=== PATIENT | male | born 1995 | race Caucasian/White ===

== ENCOUNTER 2023-02-05 21:27 | Emergency (ER) | payer OTHER, SELFPAY ==
[2023-02-05 21:32] VITALS: BP 162/94; PULSE 87; RESP 16; TEMP 37.1; O2SAT 97; BMI 55.2
--- NOTE | 2023-02-05 21:46 | PC.NURSE ---
patient c/o pain in right upper extremity. states he has sharp intense pain from top of shoulder running down bicep to elbow. denies any known injury. he has been using left hand to move extremity states he has pain at rest but increases with movement. patient last took motrin 30 minutes prior to coming to ED
--- NOTE | 2023-02-05 22:08 | XR_ITS ---
The [address] [address] Patient Name: COREY LOPEZ MRN: [id number] date: 1995 Sex: M Assigned Patient Location: ER Current Patient Location: ER Accession/Order Number: [id number] Exam Date: 02/05/2023 22:15 Report Date: 02/05/2023 22:33 At the request of: PEPE MARKER Procedure: XR humerus RT EXAM: XR humerus RT HISTORY: RUE pain COMPARISON: None. TECHNIQUE: 2 views of the right humerus are performed. FINDINGS: There is no acute fracture. The bony structures are intact. Joint spaces are maintained. Unremarkable soft tissues. XR/XR humerus RT IMPRESSION: No acute bony abnormality. Electronically authenticated by: MALLORY PINON Date: 02/05/2023 22:33
--- NOTE | 2023-02-05 23:15 | ED_ITS ---
HPI - Extremity Injury (Upper) General Chief Complaint: Extremity Injury, Upper Stated Complaint: Upper Pain right arm Time Seen by Provider: 02/05/23 21:44 History of Present Illness HPI narrative: This 27-year-old male who is right-hand dominant presents for evaluation of right upper extremity pain has been present for the past several days. 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 He states he has pain with elevation of his right upper extremity from the right anterior shoulder area down the midline portion of his humerus and into his elbow. He states that he has weakness but denies numbness or tingling. By weakness he is describing that it hurts him to lift his arm as he explains it to me. He has no forearm or wrist or finger pain. No medications at been taken for this. He denies any injury. Denies any neck or back pain. Related Data Home Medications Medication Instructions Recorded Confirmed lamotrigine 100 mg tablet mg 02/05/23 lamotrigine 200 mg tablet mg 02/05/23 oxcarbazepine 600 mg tablet mg 02/05/23 vilazodone 20 mg tablet mg 02/05/23 Allergies Allergy/AdvReac Type Severity Reaction Status Date / Time No Known Drug Allergies Allergy Verified 02/05/23 21:41 Review of Systems ROS Status of ROS 10 or more systems reviewed and unremarkable except as noted in history and below [facility] Social History Smoking status: Never smoker Exam Narrative Exam Narrative: Nurses note and vital signs reviewed and patient is not hypoxic. Blood pressure is mildly elevated at 162/94 General: The patient appears well and in no apparent distress. Patient is resting comfortably on cart. Skin: Warm, dry, no pallor noted. There is no rash noted. Head: Normocephalic, atraumatic Eye: Normal conjunctiva, no drainage, EOMI. PERRL Ears, Nose, Mouth, and Throat: oral mucosa is moist. Nares patent. Mouth without vesicles. Ear canals patent. Tm's without Erythema Cardiovascular: Regular Rate and Rhythm Respiratory: Patient is in no distress, no accessory muscle use, lungs are clear to auscultation, no wheezing, rales or rhonchi Back: non-tender, no CVA tenderness bilaterally to percussion. NO cervical spine tenderness GI: Normal bowel sounds, no tenderness to palpation, no masses appreciated. No rebound, guarding, or rigidity noted. Musculoskeletal: Is mild tenderness in the right anterior shoulder girdle and proximal humerus area and at the midline portion of the biceps tendon and insertion of the biceps tendon on the distal humerus. Patient is able to approximate thumb and all fingers. Sensation is intact. Pulses are brisk and equal. There is pain with range of motion of abduction of the right upper extremity but no limitation. Patient is able to easily cross his right arm to touch his left shoulder. Neurological: A&O x4, normal speech Psychiatric: Cooperative Constitutional Vital Signs, click to edit/add: Last Vital Signs Temp 98.7 F 02/05/23 21:32 Pulse 87 02/05/23 21:32 Resp 16 02/05/23 21:32 BP 162/94 H 02/05/23 21:32 Pulse Ox 97 02/05/23 21:32 O2 Del Method Room Air 02/05/23 21:32 Course Vital Signs Vital signs: Vital Signs Temperature 98.7 F 02/05/23 21:32 Pulse Rate 87 02/05/23 21:32 Respiratory Rate 16 02/05/23 21:32 Blood Pressure 162/94 H 02/05/23 21:32 Pulse Oximetry 97 02/05/23 21:32 Oxygen Delivery Method Room Air 02/05/23 21:32 Temperature 98.7 F 02/05/23 21:32 Pulse Rate 87 02/05/23 21:32 Respiratory Rate 16 02/05/23 21:32 Blood Pressure 162/94 H 02/05/23 21:32 Pulse Oximetry 97 02/05/23 21:32 Oxygen Delivery Method Room Air 02/05/23 21:32 MDM - Extremity Injury (Upper) Medical Records Medical records narrative: This 27-year-old male with a history of epilepsy presents for evaluation of right upper extremity pain and has been present for the past several days. He has pain in the right anterior shoulder area, the midline portion of the right humerus and insertion of the steps tendon on the distal humerus. He complains of weakness but has full strength and is able to move his arm but this causes him discomfort. His pulses are brisk and equal. There is no particular bony tenderness. X-ray of the extremity was normal. Clinically the patient has biceps tendonitis. He was medicated emergency department with ibuprofen and discharged home with a prescription for a Medrol Dosepak and ibuprofen. He declined the need for a sling. Discharge Plan Discharge Chief Complaint: Extremity Injury, Upper Clinical Impression: Biceps tendinitis Patient Disposition: Home, Self-Care Time of Disposition Decision: 23:16 Condition: Good Prescriptions / Home Meds: No Action lamotrigine 200 mg tablet oxcarbazepine 600 mg tablet lamotrigine 100 mg tablet vilazodone 20 mg tablet Instructions: Tendinitis (ED) Stand Alone Forms: Portal Instructions Referrals: MANNY CHI [Primary Care Provider] - 1 week Discharge Date/Time: 02/05/23 23:44
[2023-02-05] MEDS: IBUPROFEN 600 MG TABLET PO (23:41)
== END 2023-02-05 23:44 | disposition home or self-care (01) ==
PROVIDERS: Emergency Provider Emergency Medicine; PCP Nurse Practitioner Family
DX: M75.21 Bicipital tendinitis, right shoulder (principal); G40.909 Epilepsy, unspecified, not intractable, without status epilepticus; Z79.899 Other long term (current) drug therapy
CPT/HCPCS: 73060; 99283

== ENCOUNTER 2023-03-28 14:15 | Emergency (ER) | payer OTHER, SELFPAY ==
[2023-03-28 14:31] VITALS: BP 150/100; PULSE 92; RESP 20; O2SAT 97; BMI 24.2
--- NOTE | 2023-03-28 15:12 | XR_ITS ---
The [address] [address] Patient Name: COREY LOPEZ MRN: [id number] date: 1995 Sex: M Assigned Patient Location: ER Current Patient Location: ER Accession/Order Number: [id number] Exam Date: 03/28/2023 15:40 Report Date: 03/28/2023 15:56 At the request of: DEEPA BEYER Procedure: XR hand LT min 3V EXAM: XR hand LT min 3V HISTORY: laceration COMPARISON: None. TECHNIQUE: 3 view study FINDINGS: Overall bony architecture is normal. Joint spaces are well-maintained. Soft tissues are unremarkable. XR/XR hand LT min 3V IMPRESSION: No acute bone or joint abnormality is identified. No evidence for acute fracture or dislocation. No opaque foreign body is identified. Electronically authenticated by: Perico GARCIA Date: 03/28/2023 15:56
--- NOTE | 2023-03-28 16:12 | ED_ITS ---
HPI - Wound/Laceration General Chief Complaint: Wound/Laceration Stated Complaint: L HAND POSS. KASANDRATCHES Time Seen by Provider: 03/28/23 15:03 Source: patient and friend Mode of arrival: ambulance Limitations: no limitations History of Present Illness HPI narrative: patient is a 27-year-old male who presents to the emergency department for the evaluation of a laceration to the left hand. He is right-hand dominant. He states he cut his hand on a piece of glass prior to arrival. Bleeding is well- controlled. Tetanus is up-to-date. No other associated injuries. Related Data Home Medications Medication Instructions Recorded Confirmed lamotrigine 100 mg tablet mg 02/05/23 lamotrigine 200 mg tablet mg 02/05/23 oxcarbazepine 600 mg tablet mg 02/05/23 vilazodone 20 mg tablet mg 02/05/23 Allergies Allergy/AdvReac Type Severity Reaction Status Date / Time No Known Drug Allergies Allergy Verified 02/05/23 21:41 Review of Systems ROS Constitutional Denies: fever or chills Cardiovascular Denies: chest pain Respiratory Denies: shortness of breath Gastrointestinal Denies: nausea or vomiting Musculoskeletal Denies: back pain Integumentary/Breast Denies: rash Neurological Denies: headache Endocrine Denies: excessive urination Hematologic/Lymphatic Denies: easy bruising PFSH PFSH Social History Smoking status: Never smoker Exam Narrative Exam Narrative: Gen.: Awake, alert, in no distress Head: Normocephalic, atraumatic ENT: Moist mucous membranes Respiratory: No respiratory distress Extremities: Moves extremities equally, normal flexion and extension of the IP and MCP joints of the left thumb with a 2.5 cm jagged superficial laceration on the palmar aspect of the left hand at the MCP joint. No deep subcutaneous tissue laceration noted. No tendon visualization. No active bleeding. Psych: Normal mood and affect Neuro: No focal neuro deficit Skin: Warm, dry Constitutional Vital Signs, click to edit/add: Last Vital Signs Pulse 92 H 03/28/23 14:31 Resp 20 03/28/23 14:31 BP 150/100 H 03/28/23 14:31 Pulse Ox 97 03/28/23 14:31 O2 Del Method Room Air 08/31/23 14:31 Course Vital Signs Vital signs: Vital Signs Pulse Rate 92 H 03/28/23 14:31 Respiratory Rate 20 03/28/23 14:31 Blood Pressure 150/100 H 03/28/23 14:31 Pulse Oximetry 97 03/28/23 14:31 Oxygen Delivery Method Room Air 03/28/23 14:31 Pulse Rate 92 H 03/28/23 14:31 Respiratory Rate 20 03/28/23 14:31 Blood Pressure 150/100 H 03/28/23 14:31 Pulse Oximetry 97 03/28/23 14:31 Oxygen Delivery Method Room Air 03/28/23 14:31 MDM - Wound/Laceration MDM Narrative Medical decision making narrative: Laceration repair: Done under sterile conditions. The use of Shur-Clens prep the area. Local injection with lidocaine 1% was used, approximately 3 cc. The wound was irrigated copiously with normal saline. The wound was explored there was no evidence of foreign material. The laceration was approximated with 4-0 nylon. 3 simple interrupted sutures were placed. Patient tolerated the procedure well. The patient was neurovascularly intact post. the patient had bacitracin applied to the laceration and a dry sterile dressing was place. The patient will need to follow-up in the next 7-10 days for removal sutures placed with no difficulty, hand x-rays of the left hand with no evidence of acute fracture, soft tissue abnormality. Follow-up with PCP for suture removal in 7-10 days and return to the emergency department if symptoms change or worsen. Motrin and Tylenol encouraged for home. Medical Records Attestation: I reviewed the patient's medical records. Discharge Plan Discharge Chief Complaint: Wound/Laceration Clinical Impression: Laceration of hand, left Patient Disposition: Home, Self-Care Time of Disposition Decision: 16:13 Condition: Good Prescriptions / Home Meds: No Action lamotrigine 200 mg tablet oxcarbazepine 600 mg tablet lamotrigine 100 mg tablet vilazodone 20 mg tablet Instructions: Laceration (ED) Additional Instructions: Sutures removed in 7-10 days with PCP Stand Alone Forms: Portal Instructions Referrals: MANNY CHI [Primary Care Provider] - 1 week
[2023-03-28] MEDS: BACITRACIN 0.9 GM PACKET 1 PACKET TOPICAL (16:29)
== END 2023-03-28 16:31 | disposition home or self-care (01) ==
PROVIDERS: Emergency Provider Emergency Medicine; PCP Nurse Practitioner Family
DX: S61.412A Laceration without foreign body of left hand, initial encounter (principal); W25.XXXA Contact with sharp glass, initial encounter; Z79.899 Other long term (current) drug therapy
CPT/HCPCS: 12001; 73130; 99283

== ENCOUNTER 2023-08-15 12:07 | Emergency (ER) | payer OTHER, SELFPAY ==
[2023-08-15] VITALS (18 sets, daily range): BP systolic 115–170; BP diastolic 74–97; PULSE 85–121; RESP 18–39; TEMP 37.2; O2SAT 88–98; BMI 21.7
--- NOTE | 2023-08-15 12:26 | ECG_ITS ---
The [facility] Test Date: 2023-08-15 Pat Name: COREY LOPEZ Department: Room: - Gender: Male Induction Brazer: : 1995 Requested By: MANNY CHI Order Number: [id number] Reading MD: LELE MONTANA Measurements Intervals [place] Rate: 107 P: 51 LA: 164 QRS: 38 QRSD: 94 T: 59 QT: 330 QTc: 393 Interpretive Statements 1120 Sinus tachycardia 2440 Incomplete right bundle branch block 9140 abnormal rhythm ECG Compared to ECG 06/11/2022 07:35:30 Incomplete right bundle-branch block now present Indeterminate axis no longer present Electronically Signed On 08-16-2023 7:24:37 EST by LELE MONTANA
--- NOTE | 2023-08-15 12:29 | PC.NURSE ---
Patient drowsy on arrival, will answer questions and falls back to sleep. Mother at bedside. Seizure pads in place.
[2023-08-15] MEDS: 0.9 % SODIUM CHLORIDE 1,000 ML 999 ML IV (12:36)
[2023-08-15 12:50] LABS: Basophils Percent Auto 0.2 % (0.2-2.0); Hematocrit 44.7 % (42.0-54.0); Hemoglobin 15.7 g/dL (14.0-18.0); Immature Granulocytes Abs Auto 0.06 10^3/uL (0.00-0.03); Immature Granulocytes Pct Auto 0.5 % (0.0-0.5); Lymphocytes Absolute Auto 0.7 10^3/uL (1.2-3.8); Lymphocytes Percent Auto 5.3 % (20.5-60.0); Mean Corpuscular HGB Conc 35.1 g/dL (29.9-35.2); Mean Corpuscular Hemoglobin 28.5 pg (25.9-34.0); Mean Corpuscular Volume 81.3 fL (80.0-94.0); Mean Platelet Volume 9.6 fL (9.5-13.5); Monocytes Absolute Auto 0.4 10^3/uL (0.3-0.8); Monocytes Percent Auto 2.9 % (1.7-12.0); Neutrophils Absolute Auto 12.1 10^3/uL (1.4-6.5); Neutrophils Percent Auto 91.1 % (43.0-75.0); Platelet Count 225 10^3/uL (150-450); Red Cell Distribution Width 12.4 % (11.0-15.0); White Blood Count 13.3 10^3/uL (4.0-11.0)
--- NOTE | 2023-08-15 13:03 | ED.SEIZURE1 ---
HPI - Seizure General Chief Complaint: Seizure Stated Complaint: SEIZURE Time Seen by Provider: 08/15/23 12:18 Source: family Mode of arrival: ambulance Limitations: altered mental status History of Present Illness HPI Narrative: Patient has seizure disorder. He has not had a seizure for about a year, his mother told me. Last night he had 5 small seizures in which he was staring or confused. This morning he had a grand mal seizure. He did not injure anything and it was witnessed by the mother. She told me that he has been taking his seizure medications as prescribed and not missed any doses. His neurologist is in [place] - no recent change in med doses. No recent alcohol use, he has been getting normal amount of rest. The mother told me that the patient is going through a divorce and has some increased stress recently. On arrival he complained of some nausea and abdominal cramping. Seizure History: Yes Place: home Related Data Home Medications Medication Instructions Recorded Confirmed lamotrigine 100 mg tablet 100 mg PO Q12H 02/05/23 08/15/23 lamotrigine 200 mg tablet 200 mg PO Q12H 02/05/23 08/15/23 oxcarbazepine 600 mg tablet 600 mg PO BID 02/05/23 08/15/23 vilazodone 20 mg tablet mg 02/05/23 Allergies Allergy/AdvReac Type Severity Reaction Status Date / Time No Known Drug Allergies Allergy Verified 02/05/23 21:41 [facility] Social History Smoking status: Unknown if ever smoked Exam Narrative Exam Narrative: Nurses notes and vital signs reviewed and patient is not hypoxic. afebrile General: Well-appearing and in no apparent distress. Skin: Warm, dry, no pallor noted. Head: Normocephalic, atraumatic. Neck: Supple, non-tender. Eye: Pupils are equal, round and EOMI. No scleral icterus. Ears, Nose, Mouth, and Throat: TM are clear, no posterior oropharynx erythema or nasal mucosal hypertrophy, uvula is mid-line. No oral or intraoral injury. Oral mucosa is moist Cardiovascular: Regular Rate and Rhythm without murmur, gallop or rub. Respiratory: No accessory muscle use or respiratory distress. Lungs are clear to auscultation, no wheezing, rales or rhonchi Musculoskeletal: normal ROM, no calf or popliteal tenderness, no lower extremity edema/swelling GI: Abdomen is soft, non-distended. Normal bowel sounds. No tenderness to palpation. No rebound, guarding, or rigidity noted. Neurological: A&O x4. No cranial nerve dysfunction observed. No truncal ataxia. Moves all extremities. Sensation intact. Psychiatric: Cooperative and interactive. Normal mood and affect. Constitutional Vital Signs, click to edit/add: Last Vital Signs Temp 99 F 08/15/23 12:08 Pulse 100 H 08/15/23 13:20 Resp 24 08/15/23 13:20 BP 170/97 H 08/15/23 13:00 Pulse Ox 95 08/15/23 13:20 Course Vital Signs Vital signs: Vital Signs Temperature 99 F 08/15/23 12:08 Pulse Rate 118 H 08/15/23 12:08 Respiratory Rate 20 08/15/23 12:08 Blood Pressure 129/88 08/15/23 12:08 Temperature 99 F 08/15/23 12:08 Pulse Rate 100 H 08/15/23 13:20 Respiratory Rate 24 08/15/23 13:20 Blood Pressure 170/97 H 08/15/23 13:00 Pulse Oximetry 95 08/15/23 13:20 MDM - Seizure MDM Narrative Medical decision making narrative: Seizure precautions initiated. Patient was placed on gambling monitor and EKG obtained. Blood drawn and sent for evaluation. White blood cell count elevated at 13.3, likely reactive. CMP unremarkable. On recheck at 1300, the patient told me that he was feeling as if his seizure was coming on. I ordered the patient to receive IV Valium - fyi, Ativan is unavailable. Patient's anti-epileptic med levels are send-outs and we will not have results right away. Patient informed of test results and discharged home with recommendation to see his Neurologist in [place] for follow up. Mother will take him home and call the Neurologist's office today. Lab Data Attestation: I reviewed the patient's lab results. Labs: Lab Results 08/15/23 Range/Units 12:43 WBC 13.3 H (4.0-11.0) 10^3/uL RBC 5.50 (4.70-6.10) 10^6/uL Hgb 15.7 (14.0-18.0) g/dL Hct 44.7 (42.0-54.0) % MCV 81.3 (80.0-94.0) fL MCH 28.5 (25.9-34.0) pg MCHC 35.1 (29.9-35.2) g/dL RDW 12.4 (11.0-15.0) % Plt Count 225 (150-450) 10^3/uL MPV 9.6 (9.5-13.5) fL Neut % (Auto) 91.1 H (43.0-75.0) % Lymph % (Auto) 5.3 L (20.5-60.0) % [place] % (Auto) 2.9 (1.7-12.0) % Eos % (Auto) 0.0 L (0.9-7.0) % Baso % (Auto) 0.2 (0.2-2.0) % Neut # (Auto) 12.1 H (1.4-6.5) 10^3/uL Lymph # (Auto) 0.7 L (1.2-3.8) 10^3/uL [place] # (Auto) 0.4 (0.3-0.8) 10^3/uL Eos # (Auto) 0.0 (0.0-0.7) 10^3/uL Baso # (Auto) 0.0 (0.0-0.1) 10^3/uL Abs Immat Gran (auto) 0.06 H (0.00-0.03) 10^3/uL Imm/Tot Granulo (auto) 0.5 (0.0-0.5) % Sodium 136 (136-145) mmol/L Potassium 4.1 (3.5-5.1) mmol/L Chloride 100 (98-107) mmol/L Carbon Dioxide 25.8 (21.0-32.0) mmol/L Anion Gap 14.3 BUN 12.0 (7.0-18.0) mg/dL Creatinine 1.22 (0.70-1.30) mg/dL Est GFR ( Amer) >60 (>=60) Est GFR (Non-Af Amer) >60 (>=60) BUN/Creatinine Ratio 9.8 Glucose 144 H (74-106) mg/dL Calcium 9.2 (8.5-10.1) mg/dL Total Bilirubin 0.3 (0.2-1.0) mg/dL AST 20 (15-37) U/L ALT 41 (16-63) U/L Alkaline Phosphatase 108 (46-116) U/L Total Protein 8.1 (6.4-8.2) g/dL Albumin 4.2 (3.4-5.0) g/dL Globulin 3.9 g/dL Albumin/Globulin Ratio 1.1 Lipase 28.0 (16.0-77.0) U/L ECG Data Attestation: I personally reviewed and interpreted this ECG as follows: Interpretation: EKG interpretation: Emergency Department physician interpretation. Sinus tachycardia at 107bpm. Inc RBBB. no ST segment elevation or depression. Discharge Plan Discharge Chief Complaint: Seizure Clinical Impression: Generalized seizure Patient Disposition: Home, Self-Care Time of Disposition Decision: 14:01 Prescriptions / Home Meds: No Action lamotrigine 200 mg tablet 200 mg PO Q12H oxcarbazepine 600 mg tablet 600 mg PO BID lamotrigine 100 mg tablet 100 mg PO Q12H vilazodone 20 mg tablet Instructions: Epilepsy (ED) Stand Alone Forms: Portal Instructions Referrals: MANNY CHI [Primary Care Provider] - 1 week
[2023-08-15] MEDS: DIAZEPAM 10 MG/2 ML SYRINGE 5 MG IV (13:09)
[2023-08-15 13:13] LABS: Alanine Aminotransferase 41 U/L (16-63); Albumin Globulin Ratio 1.1; Albumin Level 4.2 g/dL (3.4-5.0); Alkaline Phosphatase 108 U/L (46-116); Anion Gap 14.3; Aspartate Amino Transferase 20 U/L (15-37); BUN Creatinine Ratio 9.8; Bilirubin Total 0.3 mg/dL (0.2-1.0); Calcium 9.2 mg/dL (8.5-10.1); Carbon Dioxide 25.8 mmol/L (21.0-32.0); Chloride 100 mmol/L (98-107); Estimated GFR (African America >60 (>=60); Estimated GFR (Non-African Ame >60 (>=60); Globulin 3.9 g/dL; Glucose 144 mg/dL (74-106); Potassium 4.1 mmol/L (3.5-5.1); Sodium 136 mmol/L (136-145); Total Protein 8.1 g/dL (6.4-8.2)
[2023-08-22 10:10] LABS: Oxcarbazepine (Trileptal),S 10 ug/mL (10-35)
== END 2023-08-15 15:02 | disposition home or self-care (01) ==
PROVIDERS: Emergency Provider Emergency Medicine; PCP Nurse Practitioner Family
DX: G40.409 Other generalized epilepsy and epileptic syndromes, not intractable, without status epilepticus (principal); Z79.899 Other long term (current) drug therapy
CPT/HCPCS: 36415; 80053; 80175; 80183; 80307; 83690; 85025; 93005; 96374; 99285; J3360

== ENCOUNTER 2023-09-02 12:00 | Emergency (ER) | payer OTHER, SELFPAY ==
[2023-09-02] VITALS (9 sets, daily range): BP systolic 144–157; BP diastolic 93–95; PULSE 88–110; RESP 16–24; TEMP 36.8; O2SAT 96–99; BMI 26.8
--- NOTE | 2023-09-02 12:05 | ECG_ITS ---
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
--- OUTSIDE RECORDS SUMMARY | 2023-09-02 12:22 | XMS_ITS | CCD ---
Author Name Unknown Address [address] [place] [address] Organization [facility] Care Team Providers Care Microsoft Exchange Architect Name Role Phone Emeli Chi CNP S Primary Care Provider HANS GRANADO Referring Unavailab ricky CHI EMELI S Primary Care Unavailable HANS GRANADO Referring Unavailab ricky CHI EMELI S Primary Care Unavailable Unavailable Primary Care Provider Unavailkaty e PROVIDER, UNKNOWN Attending Unavailable PROVIDER, UNKNOWN Admitting Unavailable Emeli Chi Primary Care Unavailable Derek Burks Attending Unavailable Derek Burks Admitting Unavailable TAQUERIA Chi Norma Primary Care Provider Derek Burks Attending Provider Emeli Chi S Primary Care Provider [phone] EMELI CHI Primary Care Unavailable REGINA, DR BREE Meneses Attending Unavailkaty TAPIA, DR BREE Meneses Admitting Unavailkaty TAPIA, DR BREE Meneses Consulting UnavailTrinity David Consulting Unavailable LALO, JOSIAH Consulting Unavailable LALO, JOSIAH Attending Unavailable LALO, JOSIAH Admitting Unavailable ARTI, EMELI Primary Care Unavailable LALO, JOSIAH Consulting Unavailable LALO, JOSIAH Attending Unavailable LALO, JOSIAH Admitting Unavailable ARTI, EMELI Primary Care Unavailable BRIAN LAM Attending Unavailable MARIZA LAMID Admitting Unavailable ARTI, EMELI Primary Care Unavailable BRIAN LAM Consulting Unavailable LALO, JOSIAH Attending Unavailable LALO, JOSIAH Admitting Unavailable LALO, JOSIAH Consulting Unavailable ARTI, EMELI Primary Care Unavailable DR SHARON MICHEL Attending Unavailable DR SHARON MICHEL Admitting Unavailable ARTI, EMELI Primary Care Unavailable DR SHARON MICHEL Consulting Unavailable JOSE CRUZ BRAGA Consulting Unavailable LALO, JOSIAH Attending Unavailable LALO, JOSIAH Admitting Unavailable JOSIAH MAY Consulting Unavailable ARTI, EMELI Primary Care Unavailable ERNESTO GIRON Consulting Unavailable TRINITY KING Consulting Unavailable NICOLASA ., DR MIXON Attending Unavailable HAY ., DR MIXON Admitting Unavailable ARTI, EMELI Primary Care Unavailable HAY ., DR MIXON Consulting Unavailable MISC, DR GARDNER Consulting Unavailable MISC, DR GARDNER Attending Unavailable MISC, DOCTOR Admitting Unavailable ARTI, EMELI Primary Care Unavailable MISC, DOCTOR Admitting Unavailable MISC, DOCTOR Consulting Unavailable MISC, DOCTOR Attending Unavailable ARTI, EMELI Primary Care Unavailable MISC, DR GARDNER Admitting Unavailable MISC, DR GARDNER Consulting Unavailable MISC, DR GARDNER Attending Unavailable ARTI, EMELI Primary Care Unavailable HOY ., DR LUJAN Attending Unavailable HOY ., DR LUJAN Admitting Unavailable HOY ., DR LUJAN Consulting Unavailable ARTI, EMELI Primary Care Unavailable ZIEBER, DR CHERI Wilson Consulting Unavailable HAY ., DR MIXON Consulting Unavailable LALO, EHAD Consulting Unavailable DIAB ., CECILIA Attending Unavailable DIAB ., CECILIA Admitting Unavailable ARTI, EMELI Primary Care Unavailable DIAB ., CECILIA Consulting Unavailable EMELI CHI S Primary Care Physician [phone] Junior Raygoza Attending Unavailable Ramón Carrizales Attending Unavailable CHAVEZ LEE Attending Unavailable HANS GRANADO Referring Unavailab EMELI Parisi Primary Care Unavailable CHAVEZ LEE Admitting Unavailable Medications Current Medications Medication Drug Class(es) Dates Sig (Normalized) Sig (Original) Acetaminophen (1 source) Start: 08-07-2022 acetaminophen (TYLENOL) tablet 650 mg lamoTRIgine 100 mg oral tablet (9 sources) Mood Stabilizer, Anti-epileptic Agent Start: 08-11-2022 lamoTRIgine (LAMICTAL) tablet 300 mg Start: 08-07-2022 End: 08-10-2022 lamoTRIgine (LAMICTAL) table t 200 mg Start: 07-19-2022 End: 08-18-2022 take 1 tablet by mouth twice daily lamoTRIgine (LAMICTAL) 200 MG tablet Take 1 tablet by mouth 2 times daily 60 tablet 5 07/19/2022 08/18/2022 Active Start: 08-28-2021 take 1 tablet by kenneth th twice daily lamotrigine (LAMICTAL) 200 MG tablet Take 1 Tablet by mouth 2 times daily. 0 08/28/2021 Active Start: 04-10-2017 End: 08-18-2022 lamotrigine 100 mg oral tabl et BID, Refills(s) 0 Start Date: 04/10/17 Status: Ordered take 1 tablet by kenneth th once daily lamoTRIgine (LAMICTAL) 200 mg tablet Take 200 mg by mouth once daily. 0 Active Comment on above: Take 200 mg by mouth once daily. 1 ml LORazepam 2 mg/ml injection (1 source) Benzodiazepine Start: 08-07-2022 1 mg, IntraVENous, EVERY 5 MIN PRN, Starting on Sat08/07/22 at 1528, Until Discontinued, Seizures, may repeat x 1 (1mg) dose if seizure continues in a 4 hour period For generalized seizures. Not saúl physician if administered for seizure. Max dose of 2 mg in 4 hour period. ondansetron (ZOFRAN-ODT) disintegrating tablet 4 mg (1 source) Start: 08-07-2022 ondansetron (ZOFRAN-ODT) disintegrating tablet 4 mg OXcarbazepine 300 mg oral tablet (8 sources) Anti-epileptic Agent Start: 08-11-2022 OXcarbazepine (TRILEPTAL) tablet 600 mg Start: 2022 OXcarbazepine (TRILEPTAL) tablet 150 mg Start: 08-07-2022 End: 2022 OXcarbazepine (TRILEPTAL) ta blet 300 mg Start: 07-19-2022 OXcarbazepine (TRILEPTAL) 600 MG tablet I tablet 2 times a day 60 tablet 5 07/19/2022 Active Start: 08-28-2021 take 1 tablet by kenneth th twice daily oxcarbazepine (TRILEPTAL) 300 MG tablet Take 1 Tablet by mouth 2 times daily. 0 08/28/2021 Active Start: 04-06-2019 Trileptal Oral , BID, Refills(s) 0 Start Date: 04/06/19 Status: Ordered Comment on above: Take 300 mg by mouth twice daily. Completed/Discontinued Medications Medication Drug Class(es) Dates Sig (Normalized) Sig (Original) 0.4 ml enoxaparin sodium 100 mg/ml prefilled syringe (1 source) Low Molecular Weight Heparin Start: 08-07-2022 inject 40 mg by subcutaneous injection every twenty-four hours 40 mg, SubCUTAneous, EVERY 24 HOURS, First dose on Sat08/07/22 at 1800, Until Discontinued Indication of Use: Prophylaxis-DVT/PE polyethylene glycol 3350 77622 mg powder for oral solution (1 source) Osmotic Laxative Start: 08-07-2022 17 g, Oral, DAILY PRN, Starting on Sat08/07/22 at 1528, Until Discontinued, Constipation First line therapy for constipation 5 ml sodium chloride 9 mg/ml injection (3 sources) Start: 08-07-2022 take 1 dose intravenously twice daily 5-40 mL, IntraVENous, EVERY 12 HOURS SCHEDULED (2 times per day), First dose on Sat08/07/22 at 2100, Until Discontinued For Line Patency: Peripheral IV = 5 mL; Midline or Central Line = 10 mL/lumen.&nbsp ; If following IV push medication, administer flush at same rate as the IV push. Flush volume is determined by type of infusion therapy being given. For non-viscous solutions use: Peripher al IV = 5 mL Midline or Central Line = 10 mL/lumen &nbs p;For viscous solutions (i.e. blood components, parenteral nutrition, contrast media, or after obtaining blood sample) use: Peripher al IV = 10 mL Midline or Central Line = 20 mL/lumen Start: 08-07-2022 IntraVENous, a t 5-250 mL/hr, PRN, if patient receiving piggyback infusions and maintenance fluids are not ordered OR KVO fluids to protect IV site / prevent frequent line interruptions/ long duration, Starting on Sat08/07/22 at 1528 For piggyback infusion, administer at same rate as piggyback for a total of 25 mL. Enter 25 mL into dose field and piggyback rate into rate field of order. If piggyback is infusing at a rate less than 100 mL/hr, enter 25 mL into dose field and 100 mL/hr into rate field of order. For KVO fluids, enter rate of 20 mL/hr or less into rate field of order. Start: 08-07-2022 take 5-40 mL intrave nously once as needed 5-40 mL, IntraVENous, PRN, Starting on Sat08/07/22 at 1528, Until Discontinued, Line Care, After every IV line use For Line Patency: Peripheral IV = 5 mL; Midline or Central Line = 10 mL/lumen. If following IV push medication, administer flush at same rate as the IV push. Flush volume is determined by type of infusion therapy being given. For non-viscous solutions use: Peripheral IV = 5 mL Midline or Central Line = 10 mL/lumen For viscous solutions (i.e. blood components, parenteral nutrition, contrast media, or after obtaining blood sample) use: Peripheral IV = 10 mL Midline or Central Line = 20 mL/lumen Problems Active Problems Problem Classification Problem Date Documented Da te Episodic/Chronic Alcohol-related disorders (1 source) Nondependent alcohol abuse; Translations: [Alcohol abuse, uncomplicated] Onset: 10-30-2018 02-02-2022 Chronic Asthma (2 sources) Asthma 04-10-2017 Chronic Complications of surgical procedures or medical care (1 source) Wound dehiscence; Translations: [Disruption of wound, unspecified, initial encounter] Onset: 03-31-2023 Episodic Epilepsy; convulsions (15 sources) Localization-relate d cryptogenic epilepsy; Translations: [Localization-relat ed (focal) (partial) idiopathic epilepsy and epileptic syndromes with seizures of localized onset, not intractable, without status epilepticus] Onset: 10-29-2018 08-03-2021 Chronic Genitourinary symptoms and ill-defined conditions (2 sources) Microscopic hematuria 04-15-2019 Episodic Headache; including migraine (2 sources) Migraine 04-15-2019 Chronic Inflammation; infection of eye (except that caused by tuberculosis or sexually transmitteddisease) (1 source) Unspecified conjunctivitis; Translations: [UNSPECIFIED CONJUNCTIVITIS] Onset: 09-17-2022 Episodic Mood disorders (2 sources) Depressive disorder 04-15-2019 Chronic Other endocrine disorders (2 sources) Male hypogonadism 12-17-2019 Chronic Other eye disorders (1 source) Other specified disorders of conjunctiva; Translations: [OTHER SPEC DISORDERS OF CONJUNCTIVA] Onset: 09-17-2022 Episodic Other inflammatory condition of skin (3 sources) Other pruritus; Translations: [OTHER PRURITUS] Onset: 09-13-2022 Episodic Other male genital disorders (2 sources) Retrograde ejaculation 04-15-2019 Episodic Other nutritional; endocrine; and metabolic disorders (2 sources) Body mass index 25-29 - overweight 05-03-2020 Episodic Other upper respiratory infections (4 sources) Acute pharyngitis, unspecified; Translations: [ACUTE PHARYNGITIS UNSPECIFIED] Onset: 09-23-2022 Episodic Unclassified (1 source) Encounter for fertility testing; Translations: [Encounter for fertility testing] Onset: 04-12-2022 Unclassified (1 source) CONTACT W/AND (SUSP) EXPOS COVID-19; Translations: [CONTACT W/AND (SUSP) EXPOS COVID-19] Onset: 03-05-2022 Past or Other Problems Problem Classification Problem Date Documented Da te Episodic/Chronic Disorders of teeth and jaw (5 sources) Periapical abscess without sinus; Translations: [Other specified disorders of teeth and supporting structures] Onset: 06-10-2022 Episodic E Codes: Fall (1 source) Unspecified fall, initial encounter; Translations: [UNSPECIFIED FALL INITIAL ENCOUNTER] Onset: 01-02-2022 Episodic Epilepsy; convulsions (14 sources) Seizure; Translations: [Unspecified convulsions] Onset: 06-11-2022 Episodic Miscellaneous mental health disorders (1 source) Acute insomnia; Translations: [Adjustment insomnia] Onset: 06-06-2021 02-02-2022 Episodic Other aftercare (1 source) 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; Translations: [OTH SHELTER CURRENT DRUG THERAPY] Onset: 06-13-2022 Episodic Other injuries and conditions due to external causes (1 source) Unspecified injury of head, initial encounter; Translations: [UNSPECIFIED INJURY HEAD INITIAL ENC] Onset: 01-02-2022 Episodic Results Test Name Value Interpretation Reference Range Facility Consent for Treatmenton Consent for Treatment [id number] #1.00CD:127 [facility] Discharge Instructionson Discharge Instructions [id number]#1.00CD:127 [facility] ED Clinical Summaryon 2022 ED Clinical Summary [place] [id number] ED Clinical Summary Person Information Name: COREY ALONSO III [place] Age: 27 Years : 1995 Sex: Male Language: Hungarian PCP: EMELI CHI CNP Marital Status: Phone: [phone] Visit Id: Visit Reason: Wound reevaluation with or without suture removal; LEFT THUMB STITCHES COMING LOOSE Speciality: Acuity: 5 Enc Type: Emergency Med Service: Emergency Arrival: 03/31/2023 16:41:41 Discharge: 03/31/2023 17:04:13 LOS: 000 00:23 Checkin: 03/31/2023 16:41:41 Checkout: 03/31/2023 17:04:13 Dispo Type: Home (Routine DC) EVENTS: Event Name Event Status Request Date/Time Start Date/Time Complete Date/Time Arrive Complete 03/31/2023 16:41:41 03/31/2023 16:41:41 03/31/2023 16:41:41 Document Home Meds Request 03/31/2023 16:41:41 Triage Complete 03/31/2023 16:41:41 03/31/2023 16:52:35 03/31/2023 16:52:35 Bed Assign Complete 03/31/2023 16:45:34 03/31/2023 16:45:34 03/31/2023 16:45:34 Dr Exam Complete 03/31/2023 16:45:34 03/31/2023 16:48:45 03/31/2023 16:48:45 RN Exam Complete 03/31/2023 16:45:34 03/31/2023 16:58:11 03/31/2023 16:58:11 Registration Complete 03/31/2023 16:48:45 03/31/2023 16:49:58 03/31/2023 16:49:58 Reg Complete Request 03/31/2023 16:49:58 Discharge Complete 03/31/2023 16:54:51 03/31/2023 17:04:18 03/31/2023 17:04:18 Transfer Complete 03/31/2023 17:04:18 03/31/2023 17:04:18 03/31/2023 17:04:18 ADDRESS: [address] [place] [address] [phone] PHYS DOC NOTES: MEDICAL INFORMATION: Prescriptions Given: Medications to Continue with No Changes Other Medications lamotrigine (lamotrigine 100 mg oral tablet) 2 times a day. oxcarbazepine (Trileptal) By Mouth 2 times a day. PATIENT EDUCATION INFORMATION: Instructions: Wound Dehiscence Follow up: With: Address: When: EMELI CHI [address] [place] [address] [phone] Business (1) In 3 days 04/03/2023 Comments: Call the office of your primary care doctor to arrange for follow-up within the above-stated timeframe. Follow-up with your primary care doctor about this ED visit. You should review your labs, imaging, and diagnoses from this ED visit with your primary care physician. There are occasionally non-emergent findings that require additional follow-up after your ED visit. If you were prescribed medications you should discuss possible side-effects and drug interactions with your pharmacist. Call 911 or go to the nearest Emergency Department if you develop any new or worsening symptoms. Immobilize the thumb for the next 3 to 5 days or until sutures are removed. DIAGNOSIS: Wound dehiscence [facility] ED Note-Physicianon 03-31-20 ED Note-Physician Basic Information Time Seen: Ramón Carrizales DO 03/31/2023 16:48 Chief Complaint Had stitches at [facility] 2 days ago on L thumb. States feels like stitches aren't hold the laceration together. History of Present Illness 27-year-old male to the emergency department chief complaint of concerns about the stitches in his left thumb. Patient reports that he thinks they are too loose. He reports that when he moves his thumb around he still gets some bleeding from the site of the laceration. Review of Systems A 10 point review of systems is negative except as noted above. Medical and Surgical History: Reviewed and noted Social history: Lives at home Tobacco: Denies Physical Exam Vitals & Measurements T: 36.7 ?C(Oral) HR: 80(Peripheral) RR: 16 BP: 136/86 SpO2: 98% HT: 173 cm WT: 61.1 kg BMI: 20.41 Left hand: There are 4 sutures across the left hand at the base of the first digit with well approximation of a linear laceration. No active bleeding. Superficial and deep flexor tendons appear intact by functional testing. Medical Decision Making 27-year-old male with concerns about his sutures placed at outside hospital. Vital stable, the patient is afebrile. Sutures appear to be approximating well. I discussed with him that given the sightseeing and the movement in the area that is likely the cause of the continued bleeding and loosening of the sutures. We will place him in a foam aluminum splint. He will follow-up with suture removal instructions from outside hospital. Assessment/Plan Wound dehiscence (T81.30XA: Disruption of wound, unspecified, initial encounter) Disposition Plan Patient Discharge Condition Stable Discharge Disposition Home Discharge Prescription List Prescriptions No active prescription medications Follow-up With When Contact Information EMELI PHILLIPSMER In 3 days 04/03/2023 EDT [address] [place] [address]- [phone] Business (1) Additional Instructions: Call the office of your primary care doctor to arrange for follow-up within the above-stated timeframe. Follow-up with your primary care doctor about this ED visit. You should review your labs, imaging, and diagnoses from this ED visit with your primary care physician. There are occasionally non-emergent findings that require additional follow-up after your ED visit. If you were prescribed medications you should discuss possible side-effects and drug interactions with your pharmacist. Call 911 or go to the nearest Emergency Department if you develop any new or worsening symptoms. Immobilize the thumb for the next 3 to 5 days or until sutures are removed. Patient Education Wound Dehiscence Problem List/Past Medical History Ongoing BMI 25.0-25.9,adult Depression Hypogonadism male Microhematuria Migraine headache Retrograde ejaculation Seizure disorder Historical Asthma Seizure Procedure/Surgical History Cystoscopy, Procedure on knee. Medications Inpatient No active inpatient medications Home lamotrigine 100 mg oral tablet, BID Trileptal, Oral, BID Allergies No Known Allergies Social History Alcohol - Denies Alcohol Use, 04/10/2017 Current, 04/06/2019 Substance Abuse - Denies Substance Abuse, 04/10/2017 Current, 04/06/2019 Tobacco - Denies Tobacco Use, 04/10/2017 Never (less than 100 in lifetime) Tobacco Use:. Never Smokeless Tobacco Use:., 05/03/2020 Family History Family history is negative Lab Results No qualifying data available. Diagnostic Results No qualifying data available. [facility] Comment on above: Result Comment: Elec tronically Signed By: Ramón Carrizales DO\.br\Date and Time Signed: 03/31/23 19:13 EDT ED Patient Education Noteon 03-31-2023 ED Patient Education Note Dermatology Wound Dehiscence Wound dehiscence is when a surgical incision breaks open and does not heal properly after surgery. It usually happens 7?10 days after surgery. This can be a serious condition. It is important to identify and treat this condition early. What are the causes? Common causes of this condition include: ? Stretching of the wound area. This may be caused by lifting, vomiting, violent coughing, or straining during bowel movements. ? Wound infection. ? Early removal of stitches (sutures) or the sutures breaking or coming loose. What increases the risk? The following factors may make you more likely to develop this condition: ? Obesity. ? Lung disease. ? Smoking. ? Poor nutrition. ? Contamination during surgery. ? Medical problems that make it harder to heal, such as diabetes or autoimmune diseases. ? Taking certain medicines. What are the signs or symptoms? Symptoms of this condition include: ? Bleeding or drainage from the wound. ? Pain. ? Fever. ? The wound starting to break open. How is this diagnosed? This condition may be diagnosed with a physical exam. Your health care provider will monitor the incision and note any changes in the wound. These changes can include a gap in the incision and an increase in drainage or pain. The health care provider may ask you if you have noticed any stretching or tearing of the wound. You may also have tests, including: ? Wound culture tests to determine if there is an infection. ? Imaging tests, such as an MRI scan or CT scan, to determine if there is a collection of pus or fluid in the wound area. ? Blood tests to check for infection and inflammation. How is this treated? Treatment for this condition may include: ? Wound care to keep the incision clean and help it heal. ? Surgical repair. ? Antibiotic medicine to treat or prevent infection. ? Medicines to reduce pain and swelling. Follow these instructions at home: Medicines ? Take [id number] and prescription medicines only as told by your health care provider. Taking pain medicine 30 minutes before changing a bandage (dressing) can help relieve pain. ? If you were prescribed an antibiotic medicine, take it as told by your health care provider. Do not stop using the antibiotic even if you start to feel better. Wound care ? Follow instructions from your health care provider about how to take care of your wound. Make sure you: ? Wash your hands with soap and water before and after you change your dressing or wash the wound area. If soap and water are not available, use hand sugar mill worker. ? Gently wash the wound area with mild soap and water 2 times a day, or as directed. Rinse off the soap. Pat the area dry with a clean towel. Do not rub the wound. ? Change the dressing and the packing inside as told by your health care provider. ? Do not scratch or pick at the wound. ? Check your wound area every day for signs of infection. Check for: ? More redness, swelling, or pain. ? More fluid or blood. ? Warmth. ? Pus or a bad smell. Activity ? Avoid exercises that make you sweat heavily or could cause stretching of your wound. ? Do not lift anything that is heavier than 10 lb (4.5 kg), or the limit that you are told, until the wound is healed or until your health care provider says that it is safe. General instructions ? Do not take baths, swim, or use a hot tub until your health care provider approves. Ask your health care provider if you may take showers. You may only be allowed to take sponge baths. ? Keep all follow-up visits as told by your health care provider. This is important. Contact a health care provider if: ? Your wound does not seem to be healing properly. ? You have a fever. Get help right away if: ? You have more redness, swelling, or pain around your wound. ? You have more fluid coming from your wound. ? Your wound, or the area around it, feels hard or warm to the touch. ? You have pus or a bad smell coming from your wound. ? Your wound breaks open farther. ? You have redness streaking or spreading from your wound. ? You have excessive bleeding from your wound. Summary ? Wound dehiscence is when a surgical incision breaks open and does not heal properly after surgery. ? Follow instructions from your health care provider about how to take care of your wound. ? Check your wound area every day for signs of infection, such as redness, swelling, pain, fluid, blood, warmth, pus, or a bad smell. ? If you were prescribed an antibiotic medicine, take it as told by your health care provider. Do not stop using the antibiotic even if you start to feel better. This information is not intended to replace advice given to you by your health care provider. Make sure you discuss any questions you have with your health care provider. Document Revised: 12 (more content not included)... [facility] ED Patient Summaryon 023 ED Patient Summary [place] [address] Patient Discharge Instructions Person Information Name: COREY ALONSO III Age: 27 Years Arrival Date: 03/31/2023 16:41:41 Discharge Diagnosis: Wound dehiscence Primary Care Physician: EMELI CHI CNP Provider Information Primary Provider: Ramón Carrizales DO Advanced Butadiene Converter Helper:None The exam and treatment you received in the Emergency Department were for an urgent problem and are not intended as complete care. It is important that you follow up with a doctor, nurse practitioner, or physician?s doctor assistant for ongoing care. If your symptoms become worse or you do not improve as expected and you are unable to reach your usual health care provider, you should return to the Emergency Department. We are available 24 hours a day. COREY ALONSO III has been given the following list of patient education materials, prescriptions and follow-up instructions: Follow-up Instructions: With: Address: When: EMELI CHI [address] [place] [address] [phone] Business (1) In 3 days 04/03/2023 Comments: Call the office of your primary care doctor to arrange for follow-up within the above-stated timeframe. Follow-up with your primary care doctor about this ED visit. You should review your labs, imaging, and diagnoses from this ED visit with your primary care physician. There are occasionally non-emergent findings that require additional follow-up after your ED visit. If you were prescribed medications you should discuss possible side-effects and drug interactions with your pharmacist. Call 911 or go to the nearest Emergency Department if you develop any new or worsening symptoms. Immobilize the thumb for the next 3 to 5 days or until sutures are removed. In the event that this physician does not participate in your insurance network, please consult with your insurance company to find a nearby participating provider. Patient Education Materials: Wound Dehiscence A MESSAGE TO ALL PATIENTS REGARDING OPIOIDS PRESCRIPTION OPIOIDS: WHAT YOU NEED TO KNOW Prescription opioids can be used to help relieve hczwyeiv-ju-lwvsqn pain and are often prescribed following a surgery or injury, or for certain health conditions. These medications can be an important part of the treatment but also come with serious risks. It is important to work with your healthcare provider to make sure you are getting the safest, most effective care. WHAT ARE THE RISKS AND SIDE EFFECTS OF OPIOID USE? Prescription opioids carry serious risks of addiction and overdose, especially with prolonged use. An opioid overdose, often marked by slowed breathing, can cause sudden . The use of prescription opioids can have a number of side effects as well, even when taken as directed: ? Tolerance?meaning you might need to take more of the medication for the same pain relief ? Physical dependence?meaning you have symptoms of withdrawal when a medication is stopped ? Increased sensitivity to pain ? Constipation ? Nausea, vomiting, and dry mouth ? Sleepiness and dizziness ? Confusion ? Depression ? Low levels of testosterone that can result in lower sex drive, energy, and strength ? Itching and sweating RISKS ARE GREATER WITH: ? History of drug misuse, substance use disorder, or overdose ? Mental health conditions (such as depression or anxiety) ? Sleep apnea ? Older age (65 years and older) ? Avoid alcohol while taking prescription opioids. Also, unless specifically advised by your health care provider, medications to avoid include: ? Benzodiazepines (such as Xanax or Valium) ? Muscle relaxants (such as Soma or Flexeril) ? Hypnotics (such as Ambien or Lunesta) ? Other prescription opioids KNOW YOUR OPTIONS Talk to your health care provider about ways to manage your pain that don?t involve prescription opioids. Some of these options may actually work better and have fewer risks and side effects. Options may include: ? Pain relievers such as acetaminophen, ibuprofen, and naproxen ? Some medication that are also used for depression or seizures ? Physical therapy and exercise ? Cognitive behavioral therapy, a psychological, goal-directed approach, in which patients learn how to modify physical, behavioral, and emotional triggers of pain and stress. IF YOU ARE PRESCRIBED OPIOIDS FOR PAIN: ? Never take opioids in greater amounts or more often than prescribed. ? Follow up with your primary health care provider. o Work together to create a plan on how to manage your pain. o Talk about ways to help manage your pain that don?t involve prescription opioids. o Talk about any and all concerns and side effects. ? Help prevent misuse and abuse o Never sell or share prescription opioids. o Never use another person?s prescription opioids. ? Stor (more content not included)... Normal [facility] EMS Documentationon 10-10-19 23 EMS Documentation Please click on link to see report pdfCD:[id number] [id number] eXxzDFWclP72lbUQczBC pDBX9VcZiHLJgXLR0WeW wIFIgMiAw YYSePFD9UDStKQBtXBH8 AMFxVXCyL4Pyb7RMo8bv BC1hBWJuSWL7RWIlFLF2 UBKzSN1nG7IthQZx MTAwNCAwIFIvSUQgMTAw GVDuJVYkMQNpfKLGh0bq LO1bFRLzIEZ3PBXkONJ8 XVEbPP6xKKsmXO0i S8EfnlUzcAJ4HuPsGZET E7Qtf672hfEwejy5T1Ka aB0jZ4HaA7Q8YR2GJzIk ETr4VCHjXh8+L0Zv xsN8PG5UDGLrDMjiITQb Kz8KVFCyYSf8BMJkBz3F CHHlBLcnHJEhBh9OKBMx EMBoKHYAB1IOQJHf NSAwIFI+Yy4Kfi7nI3H0 Og7SDZRpQPJ6jX6aTJy8 W2C2USMqAAXsWZYqLSIP J2bIUxgbH8RmCJA8 NiAwIFI+Ei2Pk8WylGQi YS8AwKP1S9EBZSNqueTo JOWrV5W9dHJlCJNzMP1Y GGUwI3V+PgplbmRv HlgGKgNkHH0svnr9QF3L JH6vcZcxRdM5KXQ+PnN0 yyKxeSznI4LaPGGlWHZd MVHiwnjrCRI8CAMg KCunQpd3MX22RKIgtpTX MecbHSUbQ71IVMEhLfb1 BOA2DsPpGC62ODAbOFgm NnKtMYQ5OG3vWKHu Sih5FCJqVhl8PWSvSfJR HSw6IvZ1ISD0KU1uRRRl Pso0TRAjJmy6NQCeOzQE HSOdYbn4HkK7GOG0 ZdYnZI31WNWbSBnsJhZn DSH6WZB0CqDxDSKoUoPx qmPLXbuaNOL3USQgLbJe RF91PPGtXXXpdvOD Zna7JPTsEnIgUkp9FmK1 GUMcSdDlNVK1JQLyTlCI AZ80XYevHJLnplhfAF62 MSA0QFNjKHOhJNtq MjUgLTEyIHJlCmYKMCAg v6HaFrEoRai6QJK3Fd4g NSAyODcuMjUgLTAuNzUg cmUKZgowLjkxOCAg z9HuQcG7OXW7VVErBUCt ODcuMjUgLTEyIHJlCmYK EAQfh3ScRrC6VCV5DQBp RgRiLmp8WsV2DS6v Nfd1CPZjQzPTEQGnVqBt CjZ9PLD0HcBtQT41NZFc TIpzArEmXDV6IH87OAB2 DoAqGJ91VFTpJFfn SlSlOAG0EL1oNFKbAbb3 UW00XA83VHNuKuPHZNh4 DaP7SFC6QL8hJLRlMlv1 YW11KJ87DHBjDbYP ZI13MTtcPEEaapyuYU53 ZPN2TOtmKQF7ZaHjVCAf GPMdzvLETzecDVYcV41T ILUdMhVcPaD0OkZ8 GEH6SZ78NJ4nHix4DZRy CtSQNDT7BmVpNuK9OTZm Cb6cVWKiVH50IJOlXIie PeR4Ne49ORA8DP3w NSAxMTYuMjUgLTAuNzUg omJWWyc2RidyRUJ4UnOo PN81HSJwTHZlDFChLKdl UgF3QmE7KqMnYJ05 NSAtNTUuNSByZQpmCjAu PFV6TLZjJ33WKIB4ShY1 VQTmYE8mPPGrNHQtMyLs LTEyIHJlCmYKMCAg c6WmFnM1WB5fGVU9AvZa QDB4Qwo1KY1qUhb0UFKn MfDKZNDfIRhiBoi4SPE1 HsEwDE27PFDcUVqp UmUhVKYxCvY6AgBfZEDe RdTqlaYWVsrdFOD8BhYr BaEjTD47GYKpYbVwRQEe HFtoHjQ9BS2tULZ3 PvJgAyZgUA63RCYtJqEx SGScTSwdIzRlZDI8RLRu D64GPIXuTeNqATtsQVY7 IV44FR2pPbQzXLyk OsIzWQBkacslRK37OHM0 YNhxVhLqNRs7OuRqFBYz IpJyfdZRDpjvYIQ1Zgei BkQfUNn5BL9yLvp0 IHJlCmYKMTAgNDUzIDU3 VdIfIK49QBCgDZapLnPe ILJpWj6lGRFuUee8UX19 FVSaSOaoNqO6PP9n OWR4LmgqGyUiNL79QKEe NzUgcmUKZgowLjkxOCAg g2KvEcOoTyg2OXUpYc07 JJD0XZ03UY0dBqLj SItpIzHfADNozfwnNA12 GCJ4JEBvGbSkECy3EqBk LTAuNzUgcmUKZgoxMCA0 GgBkQEG4TkUkTSFp NzUgcmUKZgoxMCAzODcu GzGcOOv9NG1yGhw4RLFq EqYHBLAnCPBxVgSaQN97 NSAtNDYuNSByZQpm SqF5VP2xQJL6OgTqNSRn Xdk2SN31Bm27MIJuZpMN GZ02MBqfXSGcinhqLR39 VNZ0AqQcFpJfZOv0 LjUgLTEyIHJlCmYKMCAg e2CwInKtRxz9UWPbKQ64 YKW1NT93AG9bUcv2ZQYr JwRNGR59EBdiTKWa bgoxNiAzNzcuMjUgNTYz LpM5ZV7oWS55VFMaZwRE VLNyj2CgNeY6XRR5Xk54 TYYaAn99MCGqEcNd NzUgcmUKZgowLjkxOCAg e5YnHxL0EQO2Hv76EQAu Mm74HBQkUxCqLhCpbrJQ EbrpTWIrD50SIEZg DbKkSdX0Opk5ACT4ZmDs LTEwLjUgcmUKZgowLjkx GLPcb1DbVrWgVgb9GDT8 Wl72SKL0AX27XN8y SA93BVNbZxIMXOOxm3Nu VePuXZ2oSUKwAnKoAmHx MjAuMjUgLTEwLjUgcmUK PucxXieyQTRmp0Ia DqCqON5uMJQsUsVaXaFe MjAuMjUgLTEwLjUgcmUK YokiGRUdC43SBADlFrHn NzZ2Cvd8SOB0FyJa LTEwLjUgcmUKZgowLjkx TTOga1ExWgSgOB02KYM3 To65VJF1GW25BW5rEW18 UFXgDpWIWURja7Ym ToK1FDFyUlKcFiDuWtvg NSAtMTAuNSByZQpmCjAu GWB0AOFiR07JSBfxYIW2 Tc72FVYqZS21YN8m FV47LQEzJfYFFAFwt2Uz IxIoYF23YOZ2Sz19ETZ9 MiAtMTAuNSByZQpmCjAu ZLF8VXWpV24TZdI6 SnWqQzJ6Bqs2ZVYcPS9z UB87NNFcZcYFURVje4Pp XfS4PN61CEW0Vw06THSg RS82BP4kMK47AVRs HyMEIJ60TWmrWJItpsxc NTEuNSAzNjYuNzUgMjUu NSAtMTAuNSByZQpmCjEg IHNjbgoyNzcgMzY2 Hju9SGHlDv9nYWXeILGf YEZtIZvpGoGlNHG9LINi J97LNbz6LED2Dx11WWIw MTYuMjUgLTEwLjUg clLOUwomUILyL31VOulp IkD3WGI5Tx54MITwXR56 VF7bAQ33FMVcEgSUGQ94 MTggIHNjbgozOTMu LdExRkD2Sla4UWU4KhJf LTEwLjUgcmUKZgoxICBz D37DYPReDgw5LKO2Uo45 QKS7RdHwTHMaYPHt ZKbhYeYzUIT5FKFvI04Q TOPhQrb4YDR2Dp42SVB4 MyAtMTAuNSByZQpmCjEg HMJrdvo3QRBiSvVb QvS9Nvy1ALI3UbEsJJAb LjUgcmUKZgowLjkxOCAg g6QqRqC4RQ34EGVnMeLa NzUgMjguNSAtMTAu NSByZQpmCjEgIHNjbgo1 KKQiPvHkOdG7Mee8GGZl LjUgLTEwLjUgcmUKZgow WtdpRGShz3NsRnZf Cf2tTVNsIoMbHwEmJgZu NSAtMTAuNSByZQpmCjEg VSFqqxn7YJJyVtYiReI9 Idr8JJD9ZlClPXEy LjUgcmUKZgowLjkxOCAg q5FvAcA1AO89UOFnEuEs NzUgMjUuNSAtMTAuNSBy ZQpmCjEgIHNjbgo1 HnKlJhUeRrU6Qyl1QDnc LTEwLjUgcmUKZgowLjkx EAWqg7ZvOuP3HF1cCBXn NjYuNzUgOSAtMTAu NSByZQpmCjEgIHNjbgo1 Mc07EROpQHYtFvKzVVbd NSAtMjAuMjUgcmUKZgow RlyrGXFna4JqKpRr Avz3NTW8Kx2sTCL6CX62 UH5gPL4tWQHjXVzlCtOv IHNjbgoxMTEuMjUgMzU2 YiT7NQYcChN0HQ2z YT6sGMVmPDneTuRvLNL4 CJPgV69HZKTmUvX0BQX0 Ux3jVYPwDD5eSRXrLaPc MjUgcmUKZgoxICBz O90WDCMwFsVxTpP5UsV7 YMA3EhSnIPFaGvG2OBEs ZcVBUW69GNlzVNYwfdiw MzEuNSAzNTYuMjUg NDkuNSAtMjAuMjUgcmUK EbjwCIQsK58IDKbpTBL5 Bb9rNTCtVE71AY6mRG3u NSByZQpmCjAuOTE4 PXCaF84HKDasTCF8Mb3e JUDkFB61SP7qLK1mMJIw ZQpmCjEgIHNjbgoyMDku NSAzNTYuMjUgNDIg UWQgUrV2OZUnLlQSNV28 MTggIHNjbgoyMDkuNSAz NTYuMjUgNDIgLTIwLjI1 VLKrNlWPUVVpz0Cm CnQ7ER52HPA3Gp0nSBOi PI49NQ6iUY8pHDGfUOyd XjFkPSR9QVDrD73QSjLu JxJvNlO9ZlG9WEP5 CkRfLNApNjO3ANUtJlRF MDSxb3QcFiO4PhCnFZBn GiUtCNV5GtX8GY6yOW8v NSByZQpmCjAuOTE4 OEJwX71HWhb2LMR0Dp2k NSAxMTYuMjUgLTIwLjI1 WBRtSmURCKBqn6LoBbZ2 Xd6kGXEgVIZlTmQq MjguNSAtMjAuMjUgcmUK RkgqWsonLWBgx6HhAtE2 Rd5tNPKgJMKjQxXuPheh NSAtMjAuMjUgcmUK IdafHXKsE59PUIItQfa4 WQR3Jv0oWQJ4HP87RF4j BH5rZFAeTQugOwQeHSD3 LEYkA48ATEXrJsd2 KUI5Sh1yUFM7XE48KU9f HB3kUHQmTSilPkPiESQs mkq1JGOsLwOnUaC7AcU1 UYO0OL8fKH4uQQMj UCwsLhIaAQX5GOOkM47F ODAfUjQ3SYV5Eh6sRKP6 NiAtMjAuMjUg (more content not included)... [facility] EMS Documentationon 10-09-19 23 EMS Documentation Please click on link to see report pdfCD:[id number] xLjQNCiX5+prnDQolQUJ LwFXdLISqQkS3VNuvFxM bKQ5rki3HTNzTE8MdZWA jPBB6Cz1F UWpsOUa6TUWzQX9HX6jh QRagNFO9Fi4EhT5uEOFg ezByOCGLL59kCsntTlGv NQovVCAxODAzNDgK Hr5tZFAzMOCfRGZzXILt ICAgICAgICAgICAgICAg ICAgICAgICAgICAgICAg ICAgICAgICAgICAg ICAgICAgICAgICAgICAg ICAgICAgDQplbmRvYmoN Uu9NgKIcRd6WYeUcQxWF CjAwMDAwMDAwMzIg CFTdTUMjpc0KZNViIVUs JML4ZFGmQKOoJITaDEer SIRkMEOkHXa4YCIfEESl SO7CDuEoSIZnZOI5 HWZjRXQyDZAwhs0LMEGu MDAwMTkzNSAwMDAwMCBu JVftRZKtZDObJHz0CRNl VULxFJ4BZcCoDFOc WBEnNoKgEVRoPQXtiq3L MDAwMDAwMjMxNiAwMDAw MCBuDQowMDAwMDAyNDAw SLCyVJKxDZ7OWfSx TQGwQSS2CYipCVLwTDYc ju4DJJRpSGGfDwguXYBt MDAwMCBuDQowMDAwMDAz BIB4HDLjHGXwFO4M MjDhASTsMDS9MRIeLINv ZCPxan6QOWEeGWIoErG4 OCAwMDAwMCBuDQowMDAw HKSkWWG9HQZwWHNt RS1NLcHyMBObHSOfYHQo VOHgDOSvdc2VJHJiFKWf NDQzOSAwMDAwMCBuDQow HDHhWVD6TiKnODNc XGQmZO0KSjLbFVKfBPK4 ZPkxFJYcWTEvpr9UEOFl MDAwNTExMSAwMDAwMCBu WLpuMINdMQU6HCDs RPVhIMLnHT2CHfJpRSPh REV7PlvvOFYuLSWdbm6A MDAwMDAwOTYzOCAwMDAw MCBuDQowMDAwMDUw QrK8TRGnHTXhLG0HIcVq MDAwODgyNDYgMDAwMDAg td2EyICkgZgpap6WUEiY L5qCQBa7RBhJTktw CBUuNsU5OcNgFKcvAYGa FDJ2GzQ5UiICJZV+Cjwz OkPFQGS6TwGKICFpRSC1 CghlRMEXZMUOK2G2 IOCEVB5dWg5GtiP1QRU7 PFHaOqhdTe5wpEViHnNg BWMNT4DlyyBnHDxLX6Tc yUOoPCDjJ2RSSRM2 Ha03ZwpzmBxSCYT9YGSO XGppWO4ZUuqRJmDeBBvc Yp73D4XYq6R0HfPxS1JQ nHkKmnXZIFuyV6nD wDN3q9nvyCmEwBPWpZnu OGdJcndPalFSQUlqUHNX fV90laaGL8QtPCe1Q5XI Xx0TJTlyJsFvnT9T gQabJXQ1dK0nEBZVISmH NozaJN3VXACSGNc3CNx+ PiAgICAgICAgICAgICAg ICAgICAgICAgICAg ICAgICAgICAgICAgICAg ICAgICAgICAgICAgICAg ICAgICAgICAgICAgICAg ICAgICAgICAgICAg ICAgICAgICAgICAgICAg ICAgICAgICAgICAgICAg ICAgICAgICAgICAgICAg ICAgICAgICAgICAg ICAgICAgICAgICAgICAg ICAgICAgICAgICAgICAg ICAgICAgICAgICAgICAg ICAgICAgICAgICAg ICAgICAgICAgICAgICAg ICAgICAgICAgICAgICAg ICAgICAgICAgICAgICAg ICAgICAgICAgICAg ICAgICAgICAgICAgICAg ICAgICAgICAgICAgICAg ICAgICAgICAgICAgICAg ICAgICAgICAgICAg ICAgICAgICAgICAgICAg ICAgICAgICAgICAgICAg ICAgICAgICAgICAgICAg ICAgICAgICAgICAg ICAgICAgICAgICAgICAg ICAgICAgICAgICAgICAg ICAgICAgICAgICAgICAg ICAgICAgICAgICAg YB4Ld8FfrtD0ytOfIRkx XMtaZJFKMh0IHTyiCjZz IX4mdu5BTIaZV55xaSZl YXRhIDIxIDAgUgov Q6MxdrLywHxiwpDcMiOk NIDCYj7XdEAMFCdyC5E1 eEpcUNFrHZtkRVHCNo7A WIxrQG1eSBZiEFSx Ga5bNMibEWKhXIVxUiAs VZGNRs7RbORrBL4VMOYn lP0vOx7+DQplbmRvYmoN Tq5WLyZnNNKmVnvH Syu8Kh0HfUn2LNDrP5Kj IZKmRAQqy3DlDd4VES0m yKasRLY3Lz8RSNw0Qr0+ MBqsjMJhMF3QZigd M7ItKCAgHVAkWOJnSV8I IuFAAQpTgGwhIOYCizKu C2Rg+WoAsL6ltWrJfEHQ GRYn9KFJQsYm40Cz DlUEoouA+JFFUuOw9x+k b9G4CYMdISU5uYICZW2R 2biJfk4EDo7OI9Z7YmdG ZBIEKHkNtX6SEHyB E/IPDsExODN5xeEafA9E DK1xc6SpBFsRHmJ8LPHe s3QoDGj2YOqpT34vnUEt wYEkTzStLWXoWt9U Q52tYKlwPv33ETunQGQm ElIqJWm2Qh8QI8HayjPx qHSlZCEaJPYQR9Htd349 lhGobeZ5IWylZO7o srMaqVG1LFusQVUfVuNt MjYgMCBSCj4+Cj4+Ci9U rUDkIL5IFKbcXa4+DQpl rpRsIurUOe4AGcJq KQXpQjaLMci4Lu6DLy42 AQuuAMVrRlFnBEg1Jx0W G9ThrSFkwhIkCwxlcIYP UFFnNHXGM9uviuu7 kFE6WnudAcRxy3JeK9Lm MNc5Yf0AZ8HiVOM4IKc9 Yu2LWBApErG5HrDpPTBB Cu3OJb7AX0N0NaX0 cOGyO6Maab5ZX8Q5sFTn L7bRXxqcY5XGMy6VLjZ8 kfTnfW8PpJdyvnQsMyDk MjRQMFUwtTRSMLcw UexC3rICI9hf2BORm4Hf ZnVWQFXHIBno9DnBqWI7 e5lV9iRxMdsAoZIdofzH b3hHgF8GY6bG7G7K ND0ez3AiRZJfEZajpsNe WdfHGx0TKdgcMPIgLlsB Tkm1Vy9XSZOxJw0exLHo Kx0MGPSpRf7WAcRp Bw7QQkEcNr1GHaNmQk6M IRM2Gp0CDAP8xeXhLv9d YSAxCj4+DQplbmRvYmoN Od3YZwpxMDIeMxqZ Lum6Lg2JUZIoKw5zfWVa Jr1pDKZrYs4+DQplbmRv JitKTu6VAwchSTNoTwgI Ubn9Ce6HHMFfOu3k rWFeFu6WVFBaBs5WRnYm Di0TOlSkSb6CXhKcEy1T VYY9Kp6HMNY7soWzRm1y YSAxCj4+DQplbmRv EjcEQu5PNtTnWQVyJmyY Lux6Pf6AOQRsHt2tbWGc PO4LIYVRS7ChlYLyOADP AHySLl4Ch9tpQUSF M8Soz1KmdfZzetUAg737 ooSuGvOnLWAXWJudTK0m a1MifangR7abWY08cEE5 RJiDX2B3JzZ4lNDl S8G9rQXxOp1Xs7AtrTJf NKIkRgLkUPSDHo1OcEBa WT4Pw304Dq6+DQplbmRv FenSUo7KGhRiXFDp ZhgECug9Nj1VXIIwHy5z lSXtNH1OTSPMS0IjaLKe VRMIYQyYPh2Jq1agGTTV N2ARYFZ3k1SgsNmi Jm3wXFgTJ42lQBVzbO1e IPyELUMrdBr3wNnUN2Aa R0eccSV3LTqSCD7tZHhL Q8E3sXGoGL1dzcYz MAo+PmsaV7nFMZ5RVNLV GJOyP8zrKC48hCX7Lz0K EaNxJu9Hp758CVKwR7Rw cHRvciAzMiAwIFIK V5F3IcR7wRNxV9FQJATb bnRUeXBlMgovVHlwZSAv Se0caRnpKcQoMXS2FpB0 UTUpNOb5MzElGf7+ JOjxizGzCttQJk9KJrRc MZCwHtwFPsc2Du9Vf4Mk gcKaVJApCaKbVPScIa6W YXBIZWlnaHQgNTkx Xdy8Wdj5Dk5WOXLzFM31 YLDiIY9wNAP4JtjoZlum O1BqKdNWZ0HhovELSw10 QJrbRDjcPzt2JHTf NG41JSEwZHH6JcIaLdSc PgE6PGS1ARMpXhJdIUth LEVnVe0Aw596PzrnIWFw RXLcWLMKUz2Ej857 BeRzTTLwRT1KFXDBW0Nn oFMaQDVDNRzWEo3Pn2or DMSNU6d1MEfcN2ZyG9pj LBDXG2H8FB4XXUi9 WiS4YOe6Wr9YoVKvFX0O c230NOVeD7ThjXHmxux+ Gf1ZKY0ym1TjQHpRJvEc IEDqj4MpMEk9JAxa GlfpiUTgXX1CbWR7NGUl M02cTEdkUHEnH0QvJUT1 OQo+Es0Fa9CaMFSrUFy5 jU3Fg8iRTDX74di1 TA/B5jyqkYoJi6CIhHA1 I8BE87SZr8ZKB/77yrtu CcMZJvBqCkskFALs5veQ a2y6ywH068QSFzLo pmA5X9btZFnqqyZcPZ3c 9AoDMVRmHB2U3fZfKotT l95Xirbw+Z8vsj5yZZMk OXeynbi5JBCHT5C6 IhHV5TinmdTE+tDppbWv 7UK1Yek+VqGu/bIPnrvi b8JVL9RsBZVSOFKlYfyS WWOOVscGV4ynOxTF /kli3Jo9+l19DYgJUMRp SkQHQimiJEGUUqfNc/zr cH/cYGTiAO0J9EQMMldW Y2dYOkstyyJkM/TK icgKyZQkKdnzJyQzsuc0 1dGjdG6yEI/JNitNtwaw OvvIstvxF3DeIdRIWVzt 3FHzT9hAaM5/mRia 2H3MVE4yq0DnGMIbMHoe dgNmEzcDDs8CQqIpMFYx TssCQgs6Zx1CQWErMn4h bWDqSqZQDMRRW6Xu wMQvDZTATQmXZ71VCf2J JBNlBJ4aJX14Qe3plEMw UzJ0PDYyIg2NY6OoR41r oC3aHI8JSCOczWw1 yE7VNl3KjHS9kLJxNG0J cWFqFLvdNN8Gjkuen5Zp HGR0IPAwGukq (more content not included)... Normal [facility] Coding Summary.on 10-03-2022 Coding Summary. CD:[id number] Gh0bWw+PGhlYWQ+PE1FV LOrQ88ikOOuiR6wI8YCO ElOSywgQVBQTElOSyIgb eKuFO6kwBXuPHYp IC8+NM8hSLXoWsoxxKTr f3G1kYN0I92ccd3mFQgg hIG3OTYmZmBkpdkkj6zv mIc1PYhvXxqxAwVm FDKccN71BWJ5uM02Pw30 rLSrxNDgc4whiLg8WmOw ICEuUIS4rXzwOXdzv4Ro MSNrN05bgWZbz1D1 IGNvbGxhcHNlOyBlbXB0 aN3dZUxcphqkc1ccormy Hyl9lt10xBZyu2D6bSH8 Y9MwgaI2MQBmkBSk GalnmGBPkJ0ehhwqc2od gcngSvCvYMGoTBp0WQf5 YSOroHetQgWdHN49WME0 CGAxyeAoK6BzNLGt cOsfThV7m2I2Bh5ZS3WN XyneH8VCWMIGSHhtfTE+ SU19ar37B0JjQmgfJlb8 CDYvVEC5gPO6wZ5g KEIqCLapd0A5dMV9H5Fa njIgdt2nx4zaWWWbHCkt B14bwUPdh0K7GAVvoWB6 BUOyzDwyXeBntM57 Oyc+LBWluUxto5IjJqqv e9glf7zujSy5CkfbVYHc tmRwgLamNAT2y0ZxLm4l ZWGzaGI8rYY8eQ1a IwGbTlU6BFqvU365WfCm rHAkSbhvQ89cR0MjaEG+ OFOsOem7YVFkvHgqZQ8o K1ZoTZYikigzbLTf sDiqAM8iTPYoqqlgOYJy qR9kTRVsH7t3KbZtGuE6 ZZudP0JeGPJvdzehYa18 yN7bSwDlDrM9UZjv O3SudjP1KDYwsRUiDOrp ZVI8D45aq2W3QNXcPPXk ZQP0kMF9pC5twJzjlurj bGVmdDsgdmVydGlj VBbmMQmwU435DCQeiUie PkNvZGluZyBEYXRlOiAg MDMvMDgvMjAyMzwvdGQ+ NYOxOTW3cGdqEQXl iLQzKMylWi1vdVhaqTyo OZ7aRIDmofqyNYHhpZ6d BSJthEUceXefAR0uBDWr ydski399WpDhJZD5 SASsfUAjA6DhdH7kKlCb TRFwOIBkW9BycJRyFHbk I887XPakLkU4EMUorhCu Q3RbZFSxxSuqIgA6 f0Y0Pu7Ca7ShjepoP0Xq cJEzAiXwSarqNNt2L0Yt PjwvdHI+YQ10QZYdOX13 DRn3WTW5eNprVFyz YASvG3BvzB6uRsLeEAFo ZGRkOyc+PHRhYmxlIHdp ZHRoPScxMDAlJyBzdHls SZ7yRw7tPFCsOJDc uNsiwXTtPbUun8cxVLQa UTofUQ0faZqdO0LmlYY1 OBBrf3r1Mu42L45eP6Da dXA+ROFpgTE9fJP0 rL2wUeUeIcL6BVhhV439 IzJjsDHsSpjfv4bkt1wj aUs1WzS9LCUfyfCkxGci VWV5k3QeDr87V80l IHdpZHRoPSIxNSUiIHZh rXwydd0uhW0bFy8+PGNv pYJ9vHG3cQ8nDtOaGtH0 ASrtZ731ZaScyGCp Nscfx4drt2xvmJy6CjEw KCOogbQzgCmsCNX4d4Xa Tk02P3VneSiic4TlKys5 ck48wAIcs2P5dLN9 S5EgAGNicdqviRHayTtf PU6rHXUmghppOVFlqU9w OQBwQ9c7HvUuVjO2CDwb P8LgssD9OBQgtTAc SVIbiVUVyO6hcflnd8bo zucwTiKtZZZkIJe5JOv6 TKBveWnwMuSzRAI7UaN4 DRR8aRCfgV9smUem rzpatJ6uYje+MBH5xZJu hCEPQG8dDapkrOM+PHRk DCF6pNmxFYfuFTLcnB3p MJPsV7o3JnMoHoK9 USslB2GhovA2ZXQebVBa PSQclUEOgJ9ttehdc2vs lghkJbXzZZCqGCj1KHx7 LWFsaWduOiBsZWZ0 AhF0LCR9yAAjxW0ntOra chsyiC5lEid+QmlydGgg GVK1FIu7X2DcYoz9ZDMv jPisGG8tsNJtQUqt Jw8itUeenKolES7kNIRj vopqk228McAqm5ziMZWy qKXqNVurENH0T76cs8E6 BGGgCIBqECI7vBR9 kS0ulWrfcgseyGWzvOih ghUpuMdzYMjjFSowM485 BKElbPbbVmQeUMi8O9Hh Ycy5UQYmzGuxXK0m pYOrOKliXe7muArwlJnd MJ0vKBQiruhzr774ZoQc c3vfYUPdtEEjITkvVMZ3 L65is1O3DKGoLTCv JVF3uLV5vX6ipOxixqam bGVmdDsgdmVydGljYWwt LPpcI646ELRytMgkIcEk aLa9G2FdVak8ZBSn oNywPH6phPDdFUcrCo5i yLznsDjuWF4pUHXvkawx b645SoYfq4ipZPTyoGKa MBdbMDP8U44ss2L4 CPHrAXPrAAU0pDK1yG1v bGlnbjogbGVmdDsgdmVy kYipZPlsNDnxF026XTPp cDsnPlBhdGllbnQg EXieFNy7O8FlCierqFS+ SU88WCDbHQ04yWTyuSYp r7mefLr8ViBwHAWnDRS2 eBfgPZxjq5VlHXFo K57vgMRmk1F0CBHcwGqb rNSnBdKcmXV1eL8zYLun gyhwh3udmdvsIkxbq3bd vn20aI70W34uSDpm ZHRoPSIzMCUiIHZhbGln dh1hlW6fGg7+PGNvbCB3 oAU6cH3iIAXwUkJ4CLrj K127ArYccTCdCruj r8adt7einJy4RjW8UCQz krVplXnfLXH3d1JmIv68 V76aKNhcAUUsWLCaILSd HWZczKfrua6daN0y Ii8+NAMyuMD4uUT3fO1v LmWeIvQ4RTiqF575VxKp uHGbYblzJ56qC3KhtUN+ JFKjLme9ERTdfXyz PL6ceVFlSQgkCi9zXAH3 TzTwSkVzCWbyG1MaCFVa elslkrwlwPO1JTTuJLGj vY27Kj4oxMerBXSb lXDCxL6plldfg9rchova LgNqCLDnKKr2DSc3CUYd sIsxOuRcYLZ5NsE1JGS5 kMViiV4feDfiouhp tY4mG4WkUKZswavqGx85 pY1qVhLsUeR5UZtqIsy+ REVMUEhJQSBJSUksIFJB ED7DWzXiXffhuAU+ XLEnDTN7aAgzRMeaSFOg zX9rUAWnU9n4CdCgUcD5 LDihV1WuAYXynrhxPj27 rZ3xIsWwPrO3ZFjy E8KxedZ5HVBlfZGdDLni ALD7S58gg8B6ZGKsZLQr VOO4zOI9pM3mnMvthvjy bGVmdDsgdmVydGlj NJqgNJqdQ886VNZttGew HlRgMvQbWtJ4SGj7X7Rd Css8HXFlyRhsLC7pxFCf WJclNl8zzSmavRtp HB5zQGAodgxhKXQugY6i MZWluFGxuRwaJN6pRMCt hmbpf091JdGpWWZ1YUFa hQWjE6UyuB1gDsSf UEDjGTEeZ5GxbBTgSIkk H551OTutMsM0OHEupkNv H5JrDHEiyNrkEiO8k0Z0 Ee1eNjUEVRPrujsz dGQ+OGCxGKQ4jVocJOcn WEDwfZ0vMZOyW7l6GvPv SkR0QZmzV4XeXOMsozxd Cb67eH0cPfAfNfN1 CTraP8AijnN7VCQwbJId MNldVWJ7Y22wy7G7XRRm IFLcAYP5bPY2eL2ceMxz bjogbGVmdDsgdmVy rTroZDmdACrcA429VMNv pOhyJt0jyWP8L9HtWva9 VXWrgBcbNT2iuKUgPJfe Cy0xwNjwgCloMK1i BCLqcuygIUOugA3iHWHm aHNwwAbrWE0fMDJqflgy s535RtBiOBS9UIHtdPEc V4QngQ8sPfBeEUHp SNYbA0WmsBWfFEomJ506 NTpxMuM0QYXehkWoY6Om SZNjnCwnGxJ5v8R4Vp0J lWDdO5DtI1q5C2Yn PjwvdHI+QS41DCXzPX71 zCYzuRFiu6letCz4MxRj MERjNNW1sXoeWMkbg6Dp AKVyR91tgYBqc2T1 IGNvbGxhcHNlOyBlbXB0 bN5pOJoyzughx3uplujj Gdqnr2piro42uQ73U32f IHdpZHRoPSIzMCUi XDZjhFuvtn2wbX2iAg2+ RIEbtTD4zNB2qJ2eHuFy JcL1HCzsT517EgOfyAYq Kfwuz5wxx6gqrMl5 IjIwJSIgdmFsaWduPSJ0 b2AxKb04G33gIMrbZTJt JMLyYKUcTGWcaGisnv1y rG8aVl2+DD8pu1zm ho94aM07yMF+PHRkIHN0 mLyjZBhvMYYmnI0jUPpp IiW4KUXdOrOzoV42lPLv JSbsSy5baItfjXey BP7lTJSymfvkp298UrMn w8nwFLAjnOEcUUjcMWZ8 A04uz8K5YVOpADCeVAW5 wKZ4bI7jcNxcsyuu bGVmdDsgdmVydGljYWwt CAdnD062COBdiGdwKuEt nFTyQ6gerqEXVD0kGpbx dGQ+QCBkXUB6qNms FPwqVORofP3mGQTrN7m8 UsMgPxB5DRqiO0VfrrB5 BZEwcZJgLBLbcXURjO8l dpgoo3imvybbIzDj DAWvEEt0WBx6LQXxbBrd EaAgXHL7XfZ0NVR6pDQm iL6etLupsnauoQ3eVqt+ RklOOjwvdGQ+PHRk LVU6kHibYLefCEInfT9b HLTmZ3m3QyCjEwK5DQlr S6MzgfK8PVZpyCVmSFXu pXSHlT8dsholm7kp naenKxKlYTCvMZw9RTk8 EOWnaAhsDpPdEQL3QtP8 RPF6wJQxdU2ycNjdzwsw bX7rYxt+TVJOOjwv dGQ+ZQCtBAW7zPmpWDck OVAqwN7xKINuL7c7LuIo AkV9WRhsO1MopdZ0WSOr xDQsQBQleVALqA8i abkev8ztqayaTlMvJNVi LJx8QPa2ASZzlGfpIsYq JWM9TqU5JTH8nEBelK2d iWbckpdfrN2nNrl+ FFQ8BXT3YV58JG83Z1Iw PjwvdGFibGU+PHRhYmxl IHdpZHRoPScxMDAlJyBz mIycLX3bRh2mPVBi LWNv (more content not included)... [facility] Consent for Treatmenton Consent for Treatment [id number] #[email or web address]:127 [facility] Discharge Instructionson Discharge Instructions [id number]#[email or web address]:127 [facility] ED Clinical Summaryon 2022 ED Clinical Summary [place] [id number] ED Clinical Summary Person Information Name: [facility] 27 [facility] : 1995 Sex: Male Language: Hungarian PCP: EMELI CHI CNP Marital Status: Phone: [phone] Visit Id: Visit Reason: Headache; Seizure; SEIZURE Speciality: Acuity: 3 Enc Type: Emergency Med Service: Emergency Arrival: 09/30/2022 20:00:11 Discharge: 09/30/2022 21:30:12 LOS: 000 01:30 Checkin: 09/30/2022 20:00:11 Checkout: 09/30/2022 21:30:12 Dispo Type: Home (Routine DC) EVENTS: Event Name Event Status Request Date/Time Start Date/Time Complete Date/Time Arrive Complete 09/30/2022 20:00:11 09/30/2022 20:00:11 09/30/2022 20:00:11 Document Home Meds Request 09/30/2022 20:00:11 Triage Complete 09/30/2022 20:00:11 09/30/2022 20:09:17 09/30/2022 20:09:17 Bed Assign Complete 09/30/2022 20:01:22 09/30/2022 20:01:22 09/30/2022 20:01:22 Dr Exam Complete 09/30/2022 20:01:22 09/30/2022 20:45:12 09/30/2022 20:45:12 RN Exam Complete 09/30/2022 20:01:22 09/30/2022 20:11:42 09/30/2022 20:11:42 Registration Complete 09/30/2022 20:07:46 09/30/2022 20:07:46 09/30/2022 20:07:46 Reg Complete Request 09/30/2022 20:07:46 Registration Complete 09/30/2022 20:45:12 09/30/2022 20:49:07 09/30/2022 20:49:07 Meds Admin Complete 09/30/2022 21:09:54 09/30/2022 21:22:44 Discharge Complete 09/30/2022 21:10:37 09/30/2022 21:30:17 09/30/2022 21:30:17 Transfer Complete 09/30/2022 21:30:18 09/30/2022 21:30:18 09/30/2022 21:30:18 ADDRESS: [place] [id number] PHYS DOC NOTES: MEDICAL INFORMATION: Prescriptions Given: Medications to Continue with No Changes Other Medications lamotrigine (lamotrigine 100 mg oral tablet) 2 times a day. oxcarbazepine (Trileptal) By Mouth 2 times a day. PATIENT EDUCATION INFORMATION: Instructions: Epilepsy Follow up: With: Address: When: EMELI ARTI [address] [id number] [phone] Business (1) In 3 days DIAGNOSIS: Seizure [facility] ED Note-Physicianon 10-01-19 ED Note-Physician Basic Information Time Seen: Junior Raygoza DO 09/30/2022 20:45 Chief Complaint Patient brought by ems after having seizures since midnight last night. states last night had 3, today had one seizure lasting 2 minutes. Ems states pt was postictal upon arrival but coming around. Pt alert and oriented in triage. Ems states was lowered History of Present Illness HPI: Patient is a 27-year-old male with past medical history of epilepsy and asthma who presents the ED via EMS for seizure. Patient's significant other states that around [employer] when he had a generalized tonic-clonic seizure lasting approximately 2 minutes. He did not fall and there were able to lower him to the ground. Afterwards he was postictal but now is back to his baseline. He has a history of epilepsy and had gone almost 2 months between episodes of seizures until last night he had one and then this is second he has had today. He states that he is compliant with his lamotrigine and Trileptal. He denies any recent medication changes. He denies any recent illness. He denies any headache vision changes numbness or weakness. ROS: Pertinent review of systems conducted and is negative except as noted above. Physical exam: General: nontoxic appearing and in no distress HEENT: Mucous membranes moist Neuro: awake and alert. Nerves II to XII are intact. Motor incision all 4 extremities intact. Neck: supple, trachea midline Card: Heart regular rate and rhythm no murmur Resp: Lungs clear to auscultation no wheeze or rhonchi Abd: Soft and nondistended. No tenderness to palpation with no rebound or guarding. Ext: No gross deformity or edema Physical Exam Vitals & Measurements T: 36.8 ?C(Oral) HR: 100(Peripheral) RR: 18 BP: 133/100 SpO2: 99% HT: 173 cm WT: 60 kg BMI: 20.05 Medical Decision Making MEDICAL DECISION MAKING Number and Complexity of Problems Differential Diagnosis: Seizure MDM Data External documents reviewed: N/A My EKG interpretation: Noted in chart if applicable My CT interpretation: N/A My X-ray interpretation: Noted in chart if applicable My Ultrasound interpretation: N/A Decision rules/scores evaluated: N/A Discussed with: N/A Treatment and Disposition ED Course: Patient is well-appearing in no distress. He is neurologically intact my exam. He states he feels he is completely back to his baseline. He follows with a neurologist in [place] for this. He states that he is compliant with his medications. We discussed the plan of giving him a benzodiazepine to prevent any recurrent seizures for tonight and he will call his neurologist office first thing in the morning to discuss potential medication changes. Patient is comfortable with plan and was discharged stable condition. Shared decision making: As above Code status: N/A Assessment/Plan Seizure (R56.9: Unspecified convulsions) Orders: lorazepam, 2 mg = 2 tab(s), Tab, Oral, Once, Stop date 09/30/22 22:00:00 EST, Routine, Start date 09/30/22 22:00:00 EST, 09/30/22 21:09:00 EST Disposition Plan Discharge Prescription List Prescriptions No active prescription medications Follow-up With When Contact Information EMELI CHI In 3 days [address] [place] [address]- [phone] Business (1) Additional Instructions: Patient Education Epilepsy Problem List/Past Medical History Ongoing BMI 25.0-25.9,adult Depression Hypogonadism male Microhematuria Migraine headache Retrograde ejaculation Seizure disorder Historical Asthma Seizure Procedure/Surgical History Cystoscopy, Procedure on knee. Medications Inpatient Ativan 1 mg Tab, 2 mg= 2 tab(s), Oral, Once Home lamotrigine 100 mg oral tablet, BID Trileptal, Oral, BID Allergies No Known Allergies Social History Alcohol - Denies Alcohol Use, 04/10/2017 Current, 04/06/2019 Substance Abuse - Denies Substance Abuse, 04/10/2017 Current, 04/06/2019 Tobacco - Denies Tobacco Use, 04/10/2017 Never (less than 100 in lifetime) Tobacco Use:. Never Smokeless Tobacco Use:., 05/03/2020 Family History Family history is negative Lab Results No qualifying data available. Diagnostic Results No qualifying data available. Normal [facility] Comment on above: Result Comment: Elec tronically Signed By: Junior Raygoza DO\.br\Date and Time Signed: 09/30/22 21:12 EST ED Patient Education Noteon 09-30-2022 ED Patient Education Note Neurology Epilepsy Epilepsy is a condition in which a person has repeated seizures over time. A seizure is a sudden burst of abnormal electrical and chemical activity in the brain. Seizures can cause a change in attention, behavior, or the ability to remain awake and alert (altered mental status). Epilepsy increases a person's risk of falls, accidents, and injury. It can also lead to complications, including: ? Depression. ? Poor memory. ? Sudden unexplained in epilepsy (SUDEP). This complication is rare, and its cause is not known. Most people with epilepsy lead normal lives. What are the causes? This condition may be caused by: ? A head injury. ? An injury that happens at . ? A high fever during childhood. ? A stroke. ? Bleeding that goes into or around the brain. ? Certain medicines and drugs. ? Having too little oxygen for a long period of time. ? Abnormal brain development. ? Certain infections, such as meningitis and encephalitis. ? Brain tumors. ? Conditions that are passed from parent to child (are hereditary). What are the signs or symptoms? Symptoms of a seizure vary greatly from person to person. They may include: ? Convulsions. ? Stiffening of the body. ? Involuntary movements of the arms or legs. ? Loss of consciousness. ? Breathing problems. ? Falling suddenly. ? Confusion. ? Head nodding. ? Eye blinking or fluttering. ? Lip smacking. ? Drooling. ? Rapid eye movements. ? Grunting. ? Loss of bladder control and bowel control. ? Staring. ? Unresponsiveness. Some people have symptoms right before a seizure happens (aura) and right after a seizure happens. Symptoms of an aura include: ? Fear or anxiety. ? Nausea. ? Feeling like the room is spinning (vertigo). ? A feeling of having seen or heard something before (d?j? vu). ? Odd tastes or smells. ? Changes in vision, such as seeing flashing lights or spots. Symptoms that follow a seizure include: ? Confusion. ? Sleepiness. ? Headache. How is this diagnosed? This condition is diagnosed based on: ? Your symptoms. ? Your medical history. ? A physical exam. ? A neurological exam. A neurological exam is similar to a physical exam. It involves checking your strength, reflexes, coordination, and sensations. ? Tests, such as: ? A painless test that creates a diagram of your brain waves (electroencephalogra m, orEEG). ? An MRI. ? A CT scan. ? A lumbar puncture, also called a spinal tap. ? Blood tests to check for signs of infection or abnormal blood chemistry. How is this treated? Treatment can control seizures. Some types of epilepsy will need lifelong treatment, and some types go away in time. Treatment for this condition may involve: ? Taking medicines to control seizures. ? Having a device called a vagus nerve stimulator implanted in the chest. The device sends electrical impulses to the vagus nerve and to the brain to prevent seizures. This treatment may be recommended if medicines do not help. ? Brain surgery. There are several kinds of surgeries that may be done to stop seizures from happening or to reduce how often seizures happen. ? Having regular blood tests. You may need to have blood tests regularly to check that you are getting the right amount of medicine. Once this condition has been diagnosed, it is important to begin treatment as soon as possible. For some people, epilepsy eventually goes away. Follow these instructions at home: Medicines ? Take kkfc-qxc-xiawifi and prescription medicines only as told by your health care provider. ? Avoid any substances that may prevent your medicine from working properly, such as alcohol. Activity ? Get enough rest. Lack of sleep can make seizures more likely to occur. ? Follow instructions from your health care provider about driving, swimming, and doing any other activities that would be dangerous if you had a seizure. ? If you live in the [place] check with your local DMV (department of [employer] to find out about local driving laws. Each state has specific rules about when you can legally return to driving. Educating others Teach friends and family what to do if you have a seizure. They should: ? Lay you on the ground to prevent a fall. ? Cushion your head and body. ? Loosen any tight clothing around your neck. ? Turn you on your side. If vomiting occurs, this helps keep your airway clear. ? Stay with you until you recover. ? Not hold you down. Holding you down will not stop the seizure. ? Not put anything in your mouth. ? Know whether or not you need emergency care. General instructions ? Avoid anything that has ever triggered a seizure for you. ? Keep a seizure diary. Record what you remember about each seizure, especially anything that might have triggered the seizure. ? Keep all follow-up visits as told by your health care provider. This is important. Contact a health (more content not included)... Normal [facility] ED Patient Summaryon 023 ED Patient Summary [place] [id number] Patient Discharge Instructions Person Information Name: COREY ALONSO III Age: 27 Years Arrival Date: 09/30/2022 20:00:11 Discharge Diagnosis: Seizure Primary Care Physician: EMELI CHI CNP Provider Information Primary Provider: Junior Raygoza DO Advanced [employer] Converter Helper:None The exam and treatment you received in the Emergency Department were for an urgent problem and are not intended as complete care. It is important that you follow up with a doctor, nurse practitioner, or physician?s doctor assistant for ongoing care. If your symptoms become worse or you do not improve as expected and you are unable to reach your usual health care provider, you should return to the Emergency Department. We are available 24 hours a day. COREY ALONSO III has been given the following list of patient education materials, prescriptions and follow-up instructions: Follow-up Instructions: With: Address: When: EMELI CHI [address] [place] [address] [phone] Business (1) In 3 days In the event that this physician does not participate in your insurance network, please consult with your insurance company to find a nearby participating provider. Patient Education Materials: Epilepsy A MESSAGE TO ALL PATIENTS REGARDING OPIOIDS PRESCRIPTION OPIOIDS: WHAT YOU NEED TO KNOW Prescription opioids can be used to help relieve feupsagl-hv-vowbpj pain and are often prescribed following a surgery or injury, or for certain health conditions. These medications can be an important part of the treatment but also come with serious risks. It is important to work with your healthcare provider to make sure you are getting the safest, most effective care. WHAT ARE THE RISKS AND SIDE EFFECTS OF OPIOID USE? Prescription opioids carry serious risks of addiction and overdose, especially with prolonged use. An opioid overdose, often marked by slowed breathing, can cause sudden . The use of prescription opioids can have a number of side effects as well, even when taken as directed: ? Tolerance?meaning you might need to take more of the medication for the same pain relief ? Physical dependence?meaning you have symptoms of withdrawal when a medication is stopped ? Increased sensitivity to pain ? Constipation ? Nausea, vomiting, and dry mouth ? Sleepiness and dizziness ? Confusion ? Depression ? Low levels of testosterone that can result in lower sex drive, energy, and strength ? Itching and sweating RISKS ARE GREATER WITH: ? History of drug misuse, substance use disorder, or overdose ? Mental health conditions (such as depression or anxiety) ? Sleep apnea ? Older age (65 years and older) ? Avoid alcohol while taking prescription opioids. Also, unless specifically advised by your health care provider, medications to avoid include: ? Benzodiazepines (such as Xanax or Valium) ? Muscle relaxants (such as Soma or Flexeril) ? Hypnotics (such as Ambien or Lunesta) ? Other prescription opioids KNOW YOUR OPTIONS Talk to your health care provider about ways to manage your pain that don?t involve prescription opioids. Some of these options may actually work better and have fewer risks and side effects. Options may include: ? Pain relievers such as acetaminophen, ibuprofen, and naproxen ? Some medication that are also used for depression or seizures ? Physical therapy and exercise ? Cognitive behavioral therapy, a psychological, goal-directed approach, in which patients learn how to modify physical, behavioral, and emotional triggers of pain and stress. IF YOU ARE PRESCRIBED OPIOIDS FOR PAIN: ? Never take opioids in greater amounts or more often than prescribed. ? Follow up with your primary health care provider. o Work together to create a plan on how to manage your pain. o Talk about ways to help manage your pain that don?t involve prescription opioids. o Talk about any and all concerns and side effects. ? Help prevent misuse and abuse o Never sell or share prescription opioids. o Never use another person?s prescription opioids. ? Store prescription opioids in a secure place and out of reach of others (this may include visitors, children, friends, and family). ? Safely dispose of unused prescription opioids: Find your community drug take-back program or your pharmacy mail-back program, or flush them down the toilet, following guidance from the Food and Drug Administration (www.fda.gov/Drugs/R esourcesForYou). ? Visit www.cdc.gov/drugover dose to learn about the risks of opioids abuse and overdose. ? If you believe you may be struggling with addiction, tell your health career discovery teacher and ask for guidance or call [facility] National Helpline at 6-472-803-KFBX. q Source: [place] Department of Health and Human Services/[place] (more content not included)... [facility] Monitor Recordon 09-30-2022 Monitor Record [id number] [facility] Pre-Arrival Noteon 3 Pre-Arrival Note Pre-Arrival Summary Name: mayo Current Date: 09/30/2022 20:10:38 EST Gender: Male Date of : Age: 27 Pre-Arrival Type: EMS ETA: 09/30/2022 20:20:00 EST Primary Care Physician: Presenting Problem: seizure Pre-Arrival User: Referring Source: Location: 01 Completion Date/Time: 09/30/2022 19:50:00 [facility] Emergency Department Pre-Hospital Report Form Vital Signs: BP 144/96, HR 98, SPO2 99%, GCS 15 Pre-Hospital Report: Pt coming from [facility], had a seizure, 5th one today, known to have some back in July, alert and alittle confused Treatment in Route: Response to Treatment: Misc. Issues: Normal [facility] GROUP A STREP CULTUREon 08-30 S. pyogenes Ag Ql (Unsp spec) Culture Observations: NEGATIVE FOR GROUP A STREPTOCOCCUS. Normal [facility] Comment on above: Performed By: #### G RASTCX, SSCRN #### [facility] [address] [place] [address] Dr. Bob Nelson STREPT SCREENon 09-23-2022 STREP SCREEN A Negative Normal NEGATIVE [facility] Comment on above: Performed By: #### G RASTCX, SSCRN #### [facility] [address] [place] [address] Dr. Bob Nelson Basic Metab w/rfx MGon 08-07 Anion gap [Moles/Vol] 11 mmol/L Normal 9-17 [facility] Comment on above: Performed By: #### B MPX #### [email or web address] [address] [place], [place] [phone] Food Tester: Carter Collins MD Calcium [Mass/Vol] 10.0 mg/dL Normal 8.6-10.4 [facility] Comment on above: Performed By: #### B MPX #### [email or web address] [address], [place] [id number] Food Tester: Carter Collins MD Chloride [Moles/Vol] 102 mmol/L Normal 98-107 [facility] Comment on above: Performed By: #### B MPX #### [facility] [address] [place] [id number] Food Tester: Carter Collins MD CO2 [Moles/Vol] 26 mmol/L Normal 20-31 [facility] Comment on above: Performed By: #### B MPX #### [address] [address] Food Tester: Carter Collins MD Creatinine [Mass/Vol] 0.94 mg/dL Normal 0.70-1.20 [facility] Comment on above: Performed By: #### B MPX #### [address] [address] Food Tester: Carter Collins MD GFR/1.73 sq M.predicted among non-blacks MDRD (S/P/Bld) [Vol rate/Area] mL/min/{1.73_m2} Normal >60 [facility] Comment on above: Result Comment: Effective Apr 30, 2022 These results are not intended for use in patients <18 years of age. eGFR results are calculated without a race factor using the 2020 CKD-EPI equation. Careful clinical correlation is recommended, particularly when comparing to results calculated using previous equations. The CKD-EPI equation is less accurate in patients with extremes of muscle mass, extra-renal metabolism of creatine, excessive creatine ingestion, or following therapy that affects renal tubular secretion. Performed By: #### B MPX #### [address] [address] Food Tester: Carter Collins MD Glucose [Mass/Vol] 97 mg/dL Normal 70-99 [facility] Comment on above: Performed By: #### B MPX #### [address] [address] Food Tester: Carter Collins MD Potassium [Moles/Vol] 4.0 mmol/L Normal 3.7-5.3 [facility] Comment on above: Performed By: #### B MPX #### [facility] [address], [place] [phone] Food Tester: Carter Collins MD Sodium [Moles/Vol] 139 mmol/L Normal 135-144 [facility] Comment on above: Performed By: #### B MPX #### [facility] [address], [place] [phone] Food Tester: Carter Collins MD Urea nitrogen [Mass/Vol] 12 mg/dL Normal 6-20 [facility] Comment on above: Performed By: #### B MPX #### [facility] [address] [place] [id number] Food Tester: Carter Collins MD Basic Metabolic Panel w/ Ref rehana to MGon 08-07-2022 Anion gap [Moles/Vol] 11 mmol/L 9 - 17 mmol/L [facility] Calcium [Mass/Vol] 10.0 mg/dL 8.6 - 10. 4 mg/dL [facility] Chloride [Moles/Vol] 102 mmol/L 98 - 10 7 mmol/L [facility] CO2 [Moles/Vol] 26 mmol/L 20 - 31 mmol/L [facility] Creatinine [Mass/Vol] 0.94 mg/dL 0.70 - 1.20 mg/dL [facility] GFR/1.73 sq M.predicted MDRD (S/P/Bld) [Vol rate/Area] - [facility] Comment on above: Effective Apr 30, 2022 These results are not intended for use in patients <18 years of age. eGFR results are calculated without a race factor using the 2020 CKD-EPI equation. Careful clinical correlation is recommended, particularly when comparing to results calculated using previous equations. The CKD-EPI equation is less accurate in patients with extremes of muscle mass, extra-renal metabolism of creatine, excessive creatine ingestion, or following therapy that affects renal tubular secretion. Glucose [Mass/Vol] 97 mg/dL 70 - 99 mg/dL [facility] Potassium [Moles/Vol] 4.0 mmol/L 3.7 - 5.3 mmol/L [facility] Sodium [Moles/Vol] 139 mmol/L 135 - 144 mmol/L [facility] Urea nitrogen (BldV) [Mass/Vol] 12 mg/dL 6 - 20 mg/dL [facility] CBC with Auto Differentialon 08-07-2022 Absolute Eos # 0.08 [facility] Absolute Immature Granulocyte 0.04 [facility] Absolute Lymph # 2.27 [facility] Absolute Vermilion # 0.38 [facility] Basophils (Bld) [#/Vol] 0.03 10*3/uL [facility] Basophils/100 WBC (Bld) 0 % 0 - 2 % B ON [facility] Eosinophils/100 WBC (Bld) 1 % 1 - 4 % [facility] Hematocrit (Bld) [Volume fraction] 45.6 % 40.7 - 50.3 % [facility] Hemoglobin (Bld) [Mass/Vol] 15.6 g/dL 13.0 - 17.0 g/dL [facility] Immature granulocytes/100 WBC (Bld) 1 % High 0 [facility] Interpretation and review of laboratory results Abnormal [facility] Lymphocytes/100 WBC (Bld) 31 % 24 - 43 % [facility] MCH (RBC) [Entitic mass] 28.5 pg 25. 2 - 33.5 pg [facility] MCHC (RBC) [Mass/Vol] 34.2 g/dL 28.4 - 34.8 g/dL [facility] MCV (RBC) [Entitic vol] 83.4 fL 82.6 - 102.9 fL [facility] Monocytes/100 WBC (Bld) 5 % 3 - 12 % B ON [facility] NRBC Automated 0.0 0.0 per 100 WBC [facility] Platelet distribution width (Bld) [Ratio] 12.6 % 11.8 - 14.4 % [facility] Platelet mean volume (Bld) [Entitic vol] 9.8 fL 8.1 - 13.5 fL [facility] Platelets (Bld) [#/Vol] 215 10*3/uL [facility] RBC (Bld) [#/Vol] 5.47 10*6/uL 4.21 - 5.7 7 m/uL [facility] Segmented neutrophils/100 WBC (Bld) 62 % 36 - 65 % [facility] Segs Absolute 4.58 [facility] WBC (Bld) [#/Vol] 7.4 10*3/uL [facility] CBC with Diffon 08-07-2022 Abs. Basophil 0.03 k/uL Normal 0.00-0.20 [facility] Comment on above: Performed By: #### C DP #### [place] [address] Food Tester: Carter Collins MD Abs.Imm.Granulocyte 0.04 k/uL Normal 0.00-0.30 [facility] Comment on above: Performed By: #### C DP #### [place] [address] Food Tester: Carter Collins MD Abs.Neutrophil (Seg) 4.58 k/uL Normal 1.50-8.10 [facility] Comment on above: Performed By: #### C DP #### [address] [address] Food Tester: Carter Collins MD Basophils/100 WBC (Bld) 0 % Normal 0-2 M [facility] Comment on above: Performed By: #### C DP #### [address] [address] Food Tester: Carter Collins MD Eosinophils (Bld) [#/Vol] 0.08 10*3/uL Normal 0.00-0.44 [facility] Comment on above: Performed By: #### C DP #### [place] [address] Food Tester: Carter Collins MD Eosinophils/100 WBC (Bld) 1 % Normal 1-4 [facility] Comment on above: Performed By: #### C DP #### [address] [address] Food Tester: Carter Collins MD Erythrocyte distribution width (RBC) [Ratio] 12.6 % Normal 11.8-14.4 [facility] Comment on above: Performed By: #### C DP #### [address] [address] Food Tester: Carter Collins MD Hematocrit (Bld) [Volume fraction] 45.6 % Normal 40.7-50.3 [facility] Comment on above: Performed By: #### C DP #### [address] [address] Food Tester: Carter Collins MD Hemoglobin (Bld) [Mass/Vol] 15.6 g/dL Normal 13.0-17.0 [facility] Comment on above: Performed By: #### C DP #### [address] [address] Food Tester: Carter Collins MD Immature granulocytes/100 WBC (Bld) 1 % High 0 [facility] Comment on above: Performed By: #### C DP #### [address] [address] Food Tester: Carter Collins MD Lymphocytes (Bld) [#/Vol] 2.27 10*3/uL Normal 1.10-3.70 [facility] Comment on above: Performed By: #### C DP #### [address] [address] Food Tester: Carter Collins MD Lymphocytes/100 WBC (Bld) 31 % Normal 24-43 [facility] Comment on above: Performed By: #### C DP #### [address] [address] Food Tester: Carter Collins MD MCH (RBC) [Entitic mass] 28.5 pg Normal 25.2-33.5 [facility] Comment on above: Performed By: #### C DP #### [address] [address] Food Tester: Carter Collins MD MCHC (RBC) [Mass/Vol] 34.2 g/dL Normal 28.4-34.8 [facility] Comment on above: Performed By: #### C DP #### [address] [address] Food Tester: Carter Collins MD MCV (RBC) [Entitic vol] 83.4 fL Normal 82.6-102.9 [facility] Comment on above: Performed By: #### C DP #### [address] [address] Food Tester: Carter Collins MD Monocytes (Bld) [#/Vol] 0.38 10*3/uL Normal 0.10-1.20 [facility] Comment on above: Performed By: #### C DP #### [address] [address] Food Tester: Carter Collins MD Monocytes/100 WBC (Bld) 5 % Normal 3-12 [facility] Comment on above: Performed By: #### C DP #### [address] [address] Food Tester: Carter Collins MD Neutrophil (Seg) 62 % Normal 36-65 [facility] Comment on above: Performed By: #### C DP #### [address] [address] Food Tester: Carter Collins MD NRBC Automated 0.0 per 100 WBC Normal 0.0 [facility] Comment on above: Performed By: #### C DP #### [address] [address] Food Tester: Carter Collins MD Platelet mean volume (Bld) [Entitic vol] 9.8 fL Normal 8.1-13.5 [facility] Comment on above: Performed By: #### C DP #### [address] [address] Food Tester: Carter Collins MD Platelets (Bld) [#/Vol] 215 10*3/uL Normal 138-453 [facility] Comment on above: Performed By: #### C DP #### [address] [address] Food Tester: Carter Collins MD RBC (Bld) [#/Vol] 5.47 10*6/uL Normal 4.21-5.77 [facility] Comment on above: Performed By: #### C DP #### [address] [address] Food Tester: Carter Collins MD WBC (Bld) [#/Vol] 7.4 10*3/uL Normal 3.5-11.3 [facility] Comment on above: Performed By: #### C DP #### [address] [address] Food Tester: Carter Collins MD EEG video monitoringon 08-07 Samira Rubio MD 08/07/2022 6:14 PM LONG-TERM EEG-VIDEO MONITORING CLINICAL NEUROPHYSIOLOGY LABORATORY DEPARTMENT OF NEUROLOGY [facility] Patient: Corey Alonso III Age: 26 y.o. Referring Physician: Hans Granado,* History: The patient is a 26 y.o. male who presented breakthrough seizure/encephalopat hy. This long-term video-EEG monitoring study was performed to determine the nature of the patient's clinical events. The patient is on neuroactive medications. Corey Alonso III Current Facility-Administere d Medications Medication Dose Route Frequency Provider Last Rate Last Admin sodium chloride flush 0.9 % injection 5-40 mL 5-40 mL IntraVENous 2 times per day BELL Bean CNP sodium chloride flush 0.9 % injection 5-40 mL 5-40 mL IntraVENous PRN BELL Bean CNP 0.9 % sodium chloride infusion IntraVENous PRN BELL Bean CNP LORazepam (ATIVAN) injection 1 mg 1 mg IntraVENous Q5 Min PRN BELL Bean CNP enoxaparin (LOVENOX) injection 40 mg 40 mg SubCUTAneous Q24H BELL Bean CNP ondansetron (ZOFRAN-ODT) disintegrating tablet 4 mg 4 mg Oral Q8H PRN BELL Bean CNP Or ondansetron (ZOFRAN) injection 4 mg 4 mg IntraVENous Q6H PRN BELL Bean CNP polyethylene glycol (GLYCOLAX) packet 17 g 17 g Oral Daily PRN BELL Bean CNP acetaminophen (TYLENOL) tablet 650 mg 650 mg Oral Q6H PRN BELL Bean CNP Or acetaminophen (TYLENOL) suppository 650 mg 650 mg Rectal Q6H PRN BELL Bean CNP lamoTRIgine (LAMICTAL) tablet 200 mg 200 mg Oral BID BELL Bean CNP lamoTRIgine (LAMICTAL) tablet 100 mg 100 mg Oral BID BELL Bean CNP OXcarbazepine (TRILEPTAL) tablet 300 mg 300 mg Oral BID BELL Bean CNP Technical Description: This is a 21-channel digital EEG recording with time-locked video. Electrodes were placed in accordance with the 10-20 International System of Electrode Placement. Single lead EKG monitoring was included. Baseline EEG Recording: A formal baseline EEG recording was not obtained. Day 1 - 08/07/22, starting at 16:21 Interictal EEG Samples: In the alert state, the posterior background rhythm was a symmetric, well-modulated, 9-10 Hz, 20-40 uV rhythm which reacted symmetrically to eye opening and had a normal frequency-amplitude gradient with an age-appropriate mixture of frequencies. During drowsiness, there were bursts of diffuse slowing and waxing and waning of the posterior dominant rhythm. During stage II sleep symmetric V waves, K complexes, and sleep spindles were seen. The appearance of diffuse delta activity was observed in slow wave sleep. Muscle atonia and frequent eye movement artifact was seen during periods of REM sleep. No abnormalities were activated by sleep. The EKG channel revealed no abnormalities. Ictal EEG Recording / Patient Events: During this period the patient had no events or seizures. Summary: During this day of recording no events were recorded. The interictal EEG was normal. Monitoring was continued in order to record the patient's typical events. The EKG channel revealed no abnormalities. SAMIRA RUBIO MD Diplomate, [place] [employer]iat[employer] and Neurology Diplomate, [place] Board of Clinical Neurophysiology Diplomate, [place] Board of Epilepsy Please note this is a preliminary report and updated daily. The final report will have a summary of behavior and electrographic findings with clinical correlation. [employer] Phone: EEG video monitoringOrdered By: Samira Rubio on 08-07-2022 [facility] [email or web address] Phone: LAMOTRIGINEon 06-19-2022 Lamotrigine, Serum 4.2 ug/mL Normal 2.0-20.0 [facility] Comment on above: Result Comment: Dete ction Limit = 1.0 Performed By: #### C BC #### [facility] [address] [address] [address] Bob Nelson CBC AUTO DIFFon 06-11-2022 BASO # 0.0 103/ul Normal 0.0-0.1 [facility] Comment on above: Performed By: #### C BC #### [facility] [address] [address] [address] Bob Nelson Basophils/100 WBC (Bld) 0.2 % Normal 0.2-2.0 [facility] Comment on above: Performed By: #### C BC #### [facility] [address] [address] [address] Bob Nelson EO # 0.0 103/ul Normal 0.0-0.7 [facility] Comment on above: Performed By: #### C BC #### [facility] [address] [place] [address] Dr. Bob Nelson Eosinophils/100 WBC (Bld) 0.0 % Critically low 0.9-7.0 [facility] Comment on above: Performed By: #### C BC #### [facility] [address] [place] [address] Dr. Bob Nelson Erythrocyte distribution width (RBC) [Ratio] 13.0 % Normal 11.0-15.0 [facility] Comment on above: Performed By: #### C BC #### [facility] [address] [place] [address] Dr. Bob Nelson Hematocrit (Bld) [Volume fraction] 40.4 % Critically low 42.0-54.0 [facility] Comment on above: Performed By: #### C BC #### [facility] [address] [place] [address] Dr. Bob Nelson Hemoglobin (Bld) [Mass/Vol] 14.3 g/dL Normal 14.0-18.0 [facility] Comment on above: Performed By: #### C BC #### [facility] [address] [place] [address] Dr. Bob Nelson IG # 0.03 10e3/ul Normal 0.00-0.03 [facility] Comment on above: Performed By: #### C BC #### [facility] [address] [place] [address] Dr. Bob Nelson IG % 0.3 % Normal 0.0-0.5 [facility] Comment on above: Performed By: #### C BC #### [facility] [address] [place] [address] Dr. Bob Nelson LYMPH # 0.7 103/ul Critically low 1.2-3.8 [facility] Comment on above: Performed By: #### C BC #### [facility] [address] [address] [address] Bob Nelson Lymphocytes/100 WBC (Bld) 7.2 % Critically low 20.5-60.0 [facility] Comment on above: Performed By: #### C BC #### [facility] [address] [place] [address] Dr. Bob Nelson MANUAL DIFF REQ NO Normal [facility] Comment on above: Performed By: #### C BC #### [facility] [address] [place] [address] Dr. Bob Nelson MCH (RBC) [Entitic mass] 28.7 pg Normal 25.9-34.0 [facility] Comment on above: Performed By: #### C BC #### [facility] [address] [place] [address] Dr. Bob Nelson MCHC (RBC) [Mass/Vol] 35.4 g/dL Critically high 29.9-35.2 [facility] Comment on above: Performed By: #### C BC #### [facility] [address] [place] [address] Dr. Bob Nelson MCV (RBC) [Entitic vol] 81.1 fL Normal 80.0-94.0 [facility] Comment on above: Performed By: #### C BC #### [facility] [address] [place] [address] Dr. Bob Nelson MONO # 0.6 103/ul Normal 0.3-0.8 [facility] Comment on above: Performed By: #### C BC #### [facility] [address] [place] [address] Dr. Bob Nelson Monocytes/100 WBC (Bld) 6.0 % Normal 1.7-12.0 [facility] Comment on above: Performed By: #### C BC #### [facility] [address] [place] [address] Dr. Bob Nelson NEUT # 8.8 103/ul Critically high 1.4-6.5 [facility] Comment on above: Performed By: #### C BC #### [facility] [address] [place] [address] Dr. Bob Nelson Neutrophils/100 WBC (Bld) 86.3 % Critically high 43.0-75.0 [facility] Comment on above: Performed By: #### C BC #### [facility] [address] [place] [address] Dr. Bob Nelson Platelet mean volume (Bld) [Entitic vol] 9.1 fL Critically low 9.5-13.5 [facility] Comment on above: Performed By: #### C BC #### [facility] [address] [place] [address] Dr. Bob Nelson PLT 177 103/ul Normal 150-450 [facility] Comment on above: Performed By: #### C BC #### [facility] [address] [place] [address] Dr. Bob Nelson RBC 4.98 106/ul Normal 4.70-6.10 [facility] Comment on above: Performed By: #### C BC #### [facility] [address] [place] [address] Dr. Bob Nelson WBC 10.2 103/ul Normal 4.0-11.0 [facility] Comment on above: Performed By: #### C BC #### [facility] [address] [place] [address] Dr. Bob Nelson CBC W MANUAL DIFFon 06-11-20 22 ATYPICAL LYMPH # Normal [facility] Comment on above: Performed By: #### C BC #### [facility] [address] [place] [address] Dr. Bob Nelson ATYPICAL LYMPH % Normal [facility] Comment on above: Performed By: #### C BC #### [facility] [address] [place] [address] Dr. Bob Nelson BAND # 0.0 103/ul Normal 0.0-0.3 [facility] Comment on above: Performed By: #### C BC #### [facility] [address] [place] [address] Dr. Bob Nelson BAND % 0 % Normal 0-5 [facility] Comment on above: Performed By: #### C BC #### [facility] [address] [address] [address] Bob Nelson BASOM # 0.00 103/ul Normal 0.00-0.10 [facility] Comment on above: Performed By: #### C BC #### [facility] [address] [place] [address] Dr. Bob Nelson BASOM % 0.0 % Critically low 0.2-2.0 [facility] Comment on above: Performed By: #### C BC #### [facility] [address] [place] [address] Dr. Bob Nelson BLAST # Normal [facility] Comment on above: Performed By: #### C BC #### [facility] [address] [place] [address] Dr. Bob Nelson BLAST % Normal [facility] Comment on above: Performed By: #### C BC #### [facility] [address] [place] [address] Dr. Bob Nelson CORRECTED WBC Normal 4.0-11.0 [facility] Comment on above: Performed By: #### C BC #### [facility] [address] [place] [address] Dr. Bob Nelson EOS # 0.00 103/ul Normal 0.00-0.70 [facility] Comment on above: Performed By: #### C BC #### [facility] [address] [place] [address] Dr. Bob Nelson EOS% 0.0 % Critically low 0.9-7.0 [facility] Comment on above: Performed By: #### C BC #### [facility] [address] [place] [address] Dr. Bob Nelson HCT 41.3 % Critically low 42.0-54.0 [facility] Comment on above: Performed By: #### C BC #### [facility] [address] [place] [address] Dr. Bob Nelson HGB 14.4 g/dl Normal 14.0-18.0 [facility] Comment on above: Performed By: #### C BC #### [facility] [address] [place] [address] Dr. Bob Nelson LYMPHM # 0.85 103/ul Critically low 1.20-3.80 [facility] Comment on above: Performed By: #### C BC #### [facility] [address] [place] [address] Dr. Bob Nelson LYMPHM% 8.0 % Critically low 20.5-60.0 [facility] Comment on above: Performed By: #### C BC #### [facility] [address] [place] [address] Dr. Bob Nelson MCH 28.6 pg Normal 25.9-34.0 [facility] Comment on above: Performed By: #### C BC #### [facility] [address] [place] [address] Dr. Bob Nelson MCHC 34.9 g/dl Normal 29.9-35.2 [facility] Comment on above: Performed By: #### C BC #### [facility] [address] [place] [address] Dr. Bob Nelson MCV 82.1 fL Normal 80.0-94.0 [facility] Comment on above: Performed By: #### C BC #### [facility] [address] [place] [address] Dr. Bob Nelson METAMYELOCYTE # Normal [facility] Comment on above: Performed By: #### C BC #### [facility] [address] [place] [address] Dr. Bob Nelson METAMYELOCYTE % Normal [facility] Comment on above: Performed By: #### C BC #### [facility] [address] [place] [address] Dr. Bob Nelson MONOM# 0.64 103/ul Normal 0.30-0.80 [facility] Comment on above: Performed By: #### C BC #### [facility] [address] [place] [address] Dr. Bob Nelson MONOM% 6.0 % Normal 1.7-12.0 [facility] Comment on above: Performed By: #### C BC #### [facility] [address] [place] [address] Dr. Bob Nelson MPV 9.4 fL Critically low 9.5-13.5 [facility] Comment on above: Performed By: #### C BC #### [facility] [address] [place] [address] Dr. Bob Nelson MYELOCYTE # Normal [facility] Comment on above: Performed By: #### C BC #### [facility] [address] [place] [address] Dr. Bob Nelson MYELOCYTE % Normal [facility] Comment on above: Performed By: #### C BC #### [facility] [address] [place] [address] Dr. Bob Nelson NRBC Normal [facility] Comment on above: Performed By: #### C BC #### [facility] [address] [place] [address] Dr. Bob Nelson PLT 182 103/ul Normal 150-450 [facility] Comment on above: Performed By: #### C BC #### [facility] [address] [place] [address] Dr. Bob Nelson RBC 5.03 106/ul Normal 4.70-6.10 [facility] Comment on above: Performed By: #### C BC #### [facility] [address] [place] [address] Dr. Bob Nelson RDW 12.9 % Normal 11.0-15.0 [facility] Comment on above: Performed By: #### C BC #### [facility] [address] [place] [address] Dr. Bob Nelson SEG # 9.12 103/ul Critically high 1.40-6.50 [facility] Comment on above: Performed By: #### C BC #### [facility] [address] [place] [address] Dr. Bob Nelson SEG % 86.0 % Critically high 43.0-75.0 [facility] Comment on above: Performed By: #### C BC #### [facility] [address] [place] [address] Dr. Bob Nelson WBC 10.6 103/ul Normal 4.0-11.0 [facility] Comment on above: Performed By: #### C BC #### [facility] [address] [place] [address] Dr. Bob Nelson ER URINE PROFILEon 2 Bilirubin Ql (U) Negative Normal NEGATIVE [facility] Comment on above: Performed By: #### B MP #### [facility] [address] [place] [address] Dr. Bob Nelson Clarity (U) CLEAR Normal CLEAR [facility] Comment on above: Performed By: #### B MP #### [facility] [address] [place] [address] Dr. Bob Nelson Color (U) DK. YELLOW Normal YELLOW [facility] Comment on above: Performed By: #### B MP #### [facility] [address] [place] [address] Dr. Bob CONNELLDarien A micrscopic examination will be performed if indicated. Normal [facility] Comment on above: Performed By: #### B MP #### [facility] [address] [place] [address] Dr. Bob Nelson Glucose Ql (U) Negative Normal NEGATIVE [facility] Comment on above: Performed By: #### B MP #### [facility] [address] [place] [address] Dr. Bob Nelson Hemoglobin Ql (U) Negative Normal NEGATIVE [facility] Comment on above: Performed By: #### B MP #### [facility] [address] [place] [address] Dr. Bob Nelson Ketones Ql (U) Negative Normal NEGATIVE [facility] Comment on above: Performed By: #### B MP #### [facility] [address] [place] [address] Dr. Bob Nelson LEUKOCYTES Negative Normal NEGATIVE [facility] Comment on above: Performed By: #### B MP #### [facility] [address] [place] [address] Dr. Bob Nelson Nitrite Ql (U) Negative Normal NEGATIVE [facility] Comment on above: Performed By: #### B MP #### [facility] [address] [place] [address] Dr. Bob Nelson pH (U) 6.5 [pH] Normal 5-9 [facility] Comment on above: Performed By: #### B MP #### [facility] [address] [place] [address] Dr. Bob Nelson Protein (U) [Mass/Vol] 30 mg/dL Abnormal NEGAT TOMMY/ TRACE [facility] Comment on above: Performed By: #### B MP #### [facility] [address] [place] [address] Dr. Bob Nelson SPEC GRAVITY 1.025 Normal 1.005-<=1.02 5 [facility] Comment on above: Performed By: #### B MP #### [facility] [address] [place] [address] Dr. Bob Nelson UR MICRO IND INDICATED Normal [facility] Comment on above: Performed By: #### B MP #### [facility] [address] [place] [address] Dr. Bob Nelson Urobilinogen Qn (U) 0.2 {Lance'U}/dL Normal 0.2 - 1. 0 [facility] Comment on above: Performed By: #### B MP #### [facility] [address] [place] [address] Dr. Bob Nelson PROF CHEM 8 (BAS METB)on Anion gap [Moles/Vol] 7.2 mmol/L Normal [facility] Comment on above: Performed By: #### B MP #### [facility] [address] [place] [address] Dr. Bob Nelson Calcium [Mass/Vol] 9.0 mg/dL Normal 8.5-10.1 [facility] Comment on above: Performed By: #### B MP #### [facility] [address] [place], [place] [id number] Dr. Bob Nelson Chloride [Moles/Vol] 98 mmol/L Normal 98-107 [facility] Comment on above: Performed By: #### B MP #### [facility] [address] [place] [address] Dr. Bob Nelson CO2 [Moles/Vol] 30.9 mmol/L Normal 21.0-32.0 [facility] Comment on above: Performed By: #### B MP #### [facility] [address] [place] [address] Dr. Bob Nelson Creatinine [Mass/Vol] 0.96 mg/dL Normal 0.70-1.30 [facility] Comment on above: Performed By: #### B MP #### [facility] [address] [place] [address] Dr. Bob Nelson EGFR-AF SYRIAN >60 Normal >=60 [facility] Comment on above: Performed By: #### B MP #### [facility] [address] [place] [address] Dr. Bob Nelson EGFR-NON AF SYRIAN >60 Normal >=60 [facility] Comment on above: Performed By: #### B MP #### [facility] [address] [place] [address] Dr. Bob Nelson Glucose [Mass/Vol] 132 mg/dL Critically high 74-106 [facility] Comment on above: Performed By: #### B MP #### [facility] [address] [place] [address] Dr. Bob Nelson Potassium [Moles/Vol] 4.1 mmol/L Normal 3.5-5.1 [facility] Comment on above: Performed By: #### B MP #### [facility] [address] [place] [address] Dr. Bob Nleson Sodium [Moles/Vol] 132 mmol/L Critically low 136-145 [facility] Comment on above: Performed By: #### B MP #### [facility] [address] [place] [address] Dr. Bob Nelson Urea nitrogen [Mass/Vol] 13.0 mg/dL Normal 7.0-18.0 [facility] Comment on above: Performed By: #### B MP #### [facility] [address] [place] [address] Dr. Bob Nelson Urea nitrogen/Creatinine [Mass ratio] 13.5 mg/mg Normal [facility] Comment on above: Performed By: #### B MP #### [facility] [address] [place] [address] Dr. Bob Nelson URINE MICROSCOPIC ONLYon BACTERIA NONE SEEN Normal NONE SEEN [facility] Comment on above: Performed By: #### B MP #### [facility] [address] [place] [address] Dr. Bob Nelson Bacteria identified Cx Nom (U) NOT INDICATED Normal [facility] Comment on above: Performed By: #### B MP #### [facility] [address] [place] [address] Dr. Bob Nelson CAST SEEN Abnormal NONE SEEN [facility] Comment on above: Performed By: #### B MP #### [facility] [address] [place] [address] Dr. Bob Nelson Crystals LM Nom (Urine sed) NONE SEEN Normal NONE SEEN [facility] Comment on above: Performed By: #### B MP #### [facility] [address] [place] [address] Dr. Bob Nelson Epithelial cells LM Ql (Urine sed) NONE SEEN Normal NONE SEEN /RARE [facility] Comment on above: Performed By: #### B MP #### [facility] [address] [place] [address] Dr. Bob Nelson MUCOUS NONE SEEN Normal NONE SEEN [facility] Comment on above: Performed By: #### B MP #### [facility] [address] [place] [address] Dr. Bob Nelson RBC NONE SEEN Abnormal 0-2 [facility] Comment on above: Performed By: #### B MP #### [facility] [address] [place] [address] Dr. Bob Nelson WBC NONE SEEN Normal NONE SEEN [facility] Comment on above: Performed By: #### B MP #### [facility] [address] [place] [address] Dr. Bob Nelson XR CHEST 1 Von 06-11-2022 XR CHEST 1 V EXAMINATION: XR CHEST 1 V HISTORY: COUGH COMPARISON: 02/27/2022 TECHNIQUE: AP portable erect FINDINGS: LUNGS: No significant pulmonary parenchymal abnormalities. VASCULATURE: No increased pulmonary vasculature. PLEURA: No pneumothorax, effusion, or pleural thickening. CARDIAC: No cardiomegaly or cardiac silhouette abnormality. MEDIASTINUM: No visible mass or adenopathy. BONES: No fracture or visible bone lesion. OTHER: Negative. IMPRESSION: No acute disease. Electronically authenticated by: TRINITY GARY Date: 2022-06-11 09:17 Normal [facility] LAMOTRIGINEon 05-22-2022 Lamotrigine, Serum 5.5 ug/mL Normal 2.0-20.0 [facility] Comment on above: Result Comment: Dete ction Limit = 1.0 Performed By: #### L AMOT #### [facility] [address] [place] [address] Dr. Bob Nelson CBC AUTO DIFFon 04-24-2022 BASO # 0.0 103/ul Normal 0.0-0.1 [facility] Comment on above: Performed By: #### C BC #### [facility] [address] [place] [address] Dr. Bob Nelson Basophils/100 WBC (Bld) 0.5 % Normal 0.2-2.0 [facility] Comment on above: Performed By: #### C BC #### [facility] [address] [place] [address] Dr. Bob Nelson EO # 0.1 103/ul Normal 0.0-0.7 [facility] Comment on above: Performed By: #### C BC #### [facility] [address] [place] [address] Dr. Bob Nelson Eosinophils/100 WBC (Bld) 1.8 % Normal 0.9-7.0 [facility] Comment on above: Performed By: #### C BC #### [facility] [address] [place] [address] Dr. Bob Nelson Erythrocyte distribution width (RBC) [Ratio] 12.6 % Normal 11.0-15.0 [facility] Comment on above: Performed By: #### C BC #### [facility] [address] [place] [address] Dr. Bob Nelson Hematocrit (Bld) [Volume fraction] 48.4 % Normal 42.0-54.0 [facility] Comment on above: Performed By: #### C BC #### [facility] [address] [place] [address] Dr. Bob Nelson Hemoglobin (Bld) [Mass/Vol] 17.2 g/dL Normal 14.0-18.0 [facility] Comment on above: Performed By: #### C BC #### [facility] [address] [place] [address] Dr. Bob Nelson IG # 0.02 10e3/ul Normal 0.00-0.03 [facility] Comment on above: Performed By: #### C BC #### [facility] [address] [place] [address] Dr. Bob Nelson IG % 0.3 % Normal 0.0-0.5 [facility] Comment on above: Performed By: #### C BC #### [facility] [address] [place] [address] Dr. Bob Nelson LYMPH # 2.6 103/ul Normal 1.2-3.8 [facility] Comment on above: Performed By: #### C BC #### [facility] [address] [place] [address] Dr. Bob Nelson Lymphocytes/100 WBC (Bld) 39.4 % Normal 20.5-60.0 [facility] Comment on above: Performed By: #### C BC #### [facility] [address] [place] [address] Dr. Bob Nelson MANUAL DIFF REQ NO Normal [facility] Comment on above: Performed By: #### C BC #### [facility] Laboratory [address] [place] [address] Dr. Bob Nelson MCH (RBC) [Entitic mass] 29.0 pg Normal 25.9-34.0 [facility] Comment on above: Performed By: #### C BC #### [facility] [address] [place] [address] Dr. Bob Nelson MCHC (RBC) [Mass/Vol] 35.5 g/dL Critically high 29.9-35.2 [facility] Comment on above: Performed By: #### C BC #### [facility] [address] [place] [address] Dr. Bob Nelson MCV (RBC) [Entitic vol] 81.6 fL Normal 80.0-94.0 [facility] Comment on above: Performed By: #### C BC #### [facility] [address] [place] [address] Dr. Bob Nelson MONO # 0.5 103/ul Normal 0.3-0.8 [facility] Comment on above: Performed By: #### C BC #### [facility] [address] [place] [address] Dr. Bob Nelson Monocytes/100 WBC (Bld) 8.2 % Normal 1.7-12.0 [facility] Comment on above: Performed By: #### C BC #### [facility] [address] [place] [address] Dr. Bob Nelson NEUT # 3.3 103/ul Normal 1.4-6.5 [facility] Comment on above: Performed By: #### C BC #### [facility] [address] [place] [address] Dr. Bob Nelson Neutrophils/100 WBC (Bld) 49.8 % Normal 43.0-75.0 [facility] Comment on above: Performed By: #### C BC #### [facility] [address] [place] [address] Dr. Bob Nelson Platelet mean volume (Bld) [Entitic vol] 9.5 fL Normal 9.5-13.5 [facility] Comment on above: Performed By: #### C BC #### [facility] [address] [place] [address] Dr. Bob Nelson PLT 225 103/ul Normal 150-450 [facility] Comment on above: Performed By: #### C BC #### [facility] [address] [place] [address] Dr. Bob Nelson RBC 5.93 106/ul Normal 4.70-6.10 [facility] Comment on above: Performed By: #### C BC #### [facility] [address] [place] [address] Dr. Bob Nelson WBC 6.6 103/ul Normal 4.0-11.0 [facility] Comment on above: Performed By: #### C BC #### [facility] [address] [place] [address] Dr. Bob Nelson DRUG SCREEN RAPID (URINE)on 04-24-2022 AMP Negative Normal NEGATIVE [facility] Comment on above: Performed By: #### B MP #### [facility] [address] [place] [address] Dr. Bob Nelson BAR Negative Normal NEGATIVE [facility] Comment on above: Performed By: #### B MP #### [facility] [address] [place] [address] Dr. Bob Nelson BUP Negative Normal NEGATIVE [facility] Comment on above: Performed By: #### B MP #### [facility] [address] [place] [address] Dr. Bob Nelson BZO Negative Normal NEGATIVE [facility] Comment on above: Performed By: #### B MP #### [facility] [address] [place] [address] Dr. Bob Nelson BTEHANIE Negative Normal NEGATIVE [facility] Comment on above: Performed By: #### B MP #### [facility] [address] [place] [address] Dr. Bob Nelson CUT-OFFS SEE BELOW Normal [facility] Comment on above: Result Comment: AMP (Amphetamine): 500ng/mL, BAR (Barbituates): 200 ng/mL, BZO (Benzodiazepines): 150 ng/mL, BUP (Buprenorphine): 10 ng/mL, BETHANIE (Cocaine): 150 ng/mL, mAMP (Methamphetamine): 500 ng/mL, MTD (Methadone): 200 ng/mL, OPI (Opiates): 100 ng/mL, OXY (Oxycodone): 100 ng/mL, PCP (Phencyclidine): 25 ng/mL, PPX (Propoxyphene): 300 ng/mL, THC (Cannabinoids): 50 ng/mL, TCA (Trycyclic Antidepressants): 300 ng/mL Performed By: #### B MP #### [facility] [address] [place] [address] Dr. Bob Nelson DRUG CUT HEADER DRUG CLASS TEST SYSTEM CUT-OFF CONCENTRATIONS ARE FOLLOWS: Normal [facility] Comment on above: Performed By: #### B MP #### [facility] [address] [place] [address] Dr. Bob Nelson mAMP Negative Normal NEGATIVE [facility] Comment on above: Performed By: #### B MP #### [facility] [address] [place] [address] Dr. Bob Nelson MTD Negative Normal NEGATIVE [facility] Comment on above: Performed By: #### B MP #### [facility] [address] [place] [address] Dr. Bob Nelson OPI Negative Normal NEGATIVE [facility] Comment on above: Performed By: #### B MP #### [facility] [address] [place] [address] Dr. Bob Nelson OXY Negative Normal NEGATIVE [facility] Comment on above: Performed By: #### B MP #### [facility] [address] [place] [address] Dr. Bob Nelson PCP Negative Normal NEGATIVE [facility] Comment on above: Performed By: #### B MP #### [facility] [address] [place] [address] Dr. Bob Nelson PPX Negative Normal NEGATIVE [facility] Comment on above: Performed By: #### B MP #### [facility] [address] [place] [address] Dr. Bob Nelson TCA Negative Normal NEGATIVE [facility] Comment on above: Performed By: #### B MP #### [facility] [address] [place] [address] Dr. Bob Nelson THC Negative Normal NEGATIVE [facility] Comment on above: Performed By: #### B MP #### [facility] [address] [place] [address] Dr. Bob Nelson ER URINE PROFILEon 2 Bilirubin Ql (U) Negative Normal NEGATIVE [facility] Comment on above: Performed By: #### C MP #### [facility] [address] [place] [address] Dr. Bob Nelson Clarity (U) CLEAR Normal CLEAR [facility] Comment on above: Performed By: #### C MP #### [facility] [address] [place] [address] Dr. Bob Nelson Color (U) YELLOW Normal YELLOW [facility] Comment on above: Performed By: #### C MP #### [facility] [address] [place] [address] Dr. Bob VANEGAS A micrscopic examination will be performed if indicated. Normal [facility] Comment on above: Performed By: #### C MP #### [facility] [address] [place] [address] Dr. Bob Nelson Glucose Ql (U) Negative Normal NEGATIVE [facility] Comment on above: Performed By: #### C MP #### [facility] [address] [place] [address] Dr. Bob Nelson Hemoglobin Ql (U) Negative Normal NEGATIVE [facility] Comment on above: Performed By: #### C MP #### [facility] [address] [place] [address] Dr. Bob Nelson Ketones Ql (U) Negative Normal NEGATIVE [facility] Comment on above: Performed By: #### C MP #### [facility] [address] [place] [address] Dr. Bob Nelson LEUKOCYTES Negative Normal NEGATIVE [facility] Comment on above: Performed By: #### C MP #### [facility] [address] [place] [address] Dr. Bob Nelson Nitrite Ql (U) Negative Normal NEGATIVE [facility] Comment on above: Performed By: #### C MP #### [facility] [address] [place] [address] Dr. Bob Nelson pH (U) 5.5 [pH] Normal 5-9 [facility] Comment on above: Performed By: #### C MP #### [facility] [address] [place] [address] Dr. Bob Nelson Protein (U) [Mass/Vol] 100 mg/dL Abnormal NEGAT TOMMY/ TRACE [facility] Comment on above: Performed By: #### C MP #### [facility] [address] [place] [address] Dr. Bob Nelson SPEC GRAVITY >=1.030 Abnormal 1.005-<=1.[address] [place] [address] Comment on above: Performed By: #### C MP #### [facility] [address] [place] [address] Dr. Bob Nelson UR MICRO IND INDICATED Normal [facility] Comment on above: Performed By: #### C MP #### [facility] [address] [place] [address] Dr. Bob Nelson Urobilinogen Qn (U) 0.2 {Lance'U}/dL Normal 0.2 - 1. 0 [facility] Comment on above: Performed By: #### C MP #### [facility] [address] [place] [address] Dr. Bob Nelson PROF 14(COMP METB)on 022 Albumin [Mass/Vol] 4.3 g/dL Normal 3.4-5.0 [facility] Comment on above: Performed By: #### C MP #### [facility] [address] [place] [address] Dr. Bob Nelson Albumin/Globulin [Mass ratio] 1.2 {ratio} Normal [facility] Comment on above: Performed By: #### C MP #### [facility] [address] [place] [address] Dr. Bob Nelson ALP [Catalytic activity/Vol] 104 U/L Normal 46-116 [facility] Comment on above: Performed By: #### C MP #### [facility] [address] [address] [address] Bob Nelson ALT [Catalytic activity/Vol] 64 U/L Critically high 16-63 [facility] Comment on above: Performed By: #### C MP #### [facility] [address] [address] [address] Bob Nelson Anion gap [Moles/Vol] 19.9 mmol/L Normal [facility] Comment on above: Performed By: #### C MP #### [facility] [address] [address] [address] Bob Nelson AST [Catalytic activity/Vol] 26 U/L Normal 15-37 [facility] Comment on above: Performed By: #### C MP #### [facility] [address] [place] [address] Dr. Bob Nelson Bilirubin [Mass/Vol] 0.3 mg/dL Normal 0.2-1.0 [facility] Comment on above: Performed By: #### C MP #### [facility] [address] [place] [address] Dr. Bob Nelson Calcium [Mass/Vol] 9.4 mg/dL Normal 8.5-10.1 [facility] Comment on above: Performed By: #### C MP #### [facility] [address] [place] [address] Dr. Bob Nelson Chloride [Moles/Vol] 101 mmol/L Normal 98-107 [facility] Comment on above: Performed By: #### C MP #### [facility] [address] [address] [address] Bob Nelson CO2 [Moles/Vol] 20.8 mmol/L Critically low 21.0-32.0 [facility] Comment on above: Performed By: #### C MP #### [facility] [address] [address] [address] Bob Nelson Creatinine [Mass/Vol] 1.16 mg/dL Normal 0.70-1.30 [facility] Comment on above: Performed By: #### C MP #### [facility] [address] [place], [place] [id number] Dr. Bob Nelson EGFR-AF SYRIAN >60 Normal >=60 [facility] Comment on above: Performed By: #### C MP #### [facility] [address] [address] [address] Bob Nelson EGFR-NON AF SYRIAN >60 Normal >=60 [facility] Comment on above: Performed By: #### C MP #### [facility] [address] [address] [address] Bob Nelson Globulin (S) [Mass/Vol] 3.6 g/dL Normal [facility] Comment on above: Performed By: #### C MP #### [facility] [address] [place] [address] Dr. Bob Nelson Glucose [Mass/Vol] 152 mg/dL Critically high 74-106 [facility] Comment on above: Performed By: #### C MP #### [facility] [address] [place] [address] Dr. Bob Nelson Potassium [Moles/Vol] 3.7 mmol/L Normal 3.5-5.1 [facility] Comment on above: Performed By: #### C MP #### [facility] [address] [place] [address] Dr. Bob Nelson Protein [Mass/Vol] 7.9 g/dL Normal 6.4-8.2 [facility] Comment on above: Performed By: #### C MP #### [facility] [address] [place] [address] Dr. Bob Nelson Sodium [Moles/Vol] 138 mmol/L Normal 136-145 [facility] Comment on above: Performed By: #### C MP #### [facility] [address] [address] [address] Bob Nelson Urea nitrogen [Mass/Vol] 12.0 mg/dL Normal 7.0-18.0 [facility] Comment on above: Performed By: #### C MP #### [facility] [address] [place] [address] Dr. Bob Nelson Urea nitrogen/Creatinine [Mass ratio] 10.3 mg/mg Normal [facility] Comment on above: Performed By: #### C MP #### [facility] [address] [place] [address] Dr. Bob Nelson TSHon 04-24-2022 TSH 3.982 uIU/mL Critically high 0.358-3.740 [facility] Comment on above: Performed By: #### C MP #### [facility] [address] [place] [address] Dr. Bob Nelson URINE MICROSCOPIC ONLYon BACTERIA NONE SEEN Normal NONE SEEN [facility] Comment on above: Performed By: #### C MP #### [facility] [address] [place] [address] Dr. Bob Nelson Bacteria identified Cx Nom (U) NOT INDICATED Normal [facility] Comment on above: Performed By: #### C MP #### [facility] [address] [place] [address] Dr. Bob Nelson CAST SEEN Abnormal NONE SEEN [facility] Comment on above: Performed By: #### C MP #### [facility] [address] [place] [address] Dr. Bob Nelson Crystals LM Nom (Urine sed) NONE SEEN Normal NONE SEEN [facility] Comment on above: Performed By: #### C MP #### [facility] [address] [place] [address] Dr. Bob Nelson Epithelial cells LM Ql (Urine sed) RARE Normal NONE SEEN /RARE [facility] Comment on above: Performed By: #### C MP #### [facility] [address] [place] [address] Dr. Bob Nelson HYALINE CAST RARE Normal [facility] Comment on above: Performed By: #### C MP #### [facility] [address] [place] [address] Dr. Bob Nelson MUCOUS NONE SEEN Normal NONE SEEN [facility] Comment on above: Performed By: #### C MP #### [facility] [address] [place] [address] Dr. Bob Nelson RBC NONE SEEN Abnormal 0-2 [facility] Comment on above: Performed By: #### C MP #### [facility] [address] [address] [address] Bob Nelson WBC NONE SEEN Normal NONE SEEN [facility] Comment on above: Performed By: #### C MP #### [facility] [address] [address] [address] Bob Nelson No Panel InformationOrdered By: Derek Burks on 04-12-2022 Semen Analysis Comment . [facility] Comment on above: NO SPERM SEEN CONFIR MED BY SECOND TECH/@KWJ&STEVAN Semen WBC Concentration <1.0 M/mL <0.9 [facility] Sperm % Non-Motile [facility] Comment on above: Test not performed Sperm Motility Total [facility] Comment on above: Test not performed Qualitative semen viscosityO rdered By: Derek Burks on 04-12-2022 Viscosity Ql (Jeanie) Normal Normal [facility] Semen Analysis, Fertilityon 04-12-2022 Immotile Sperm Not performed Normal [facility] Comment on above: Order Comment: Metho d of Collection:: Masturbation Has the patient had a vasectomy?: N Type of Specimen Container:: Sterile Container Abstinence Period:: 48 HRS Kept at body temperature?: Y Any Collection or Transport Problems?: NO Performed By: #### S EMCOMP #### [facility] [address] [place] [address] Non-Progression Sperm Motili Not performed Normal [facility] Comment on above: Order Comment: Metho d of Collection:: Masturbation Has the patient had a vasectomy?: N Type of Specimen Container:: Sterile Container Abstinence Period:: 48 HRS Kept at body temperature?: Y Any Collection or Transport Problems?: NO Performed By: #### S EMCOMP #### [facility] [address] Normal Sperm Morphology Not performed Normal >=4.0 [facility] Comment on above: Order Comment: Metho d of Collection:: Masturbation Has the patient had a vasectomy?: N Type of Specimen Container:: Sterile Container Abstinence Period:: 48 HRS Kept at body temperature?: Y Any Collection or Transport Problems?: NO Performed By: #### S EMCOMP #### [place] [address] [place] Rapid Progression Sperm Motili Not performed [facility] Comment on above: Order Comment: Metho d of Collection:: Masturbation Has the patient had a vasectomy?: N Type of Specimen Container:: Sterile Container Abstinence Period:: 48 HRS Kept at body temperature?: Y Any Collection or Transport Problems?: NO Performed By: #### S EMCOMP #### [address] Semen Comment . Normal [facility] Comment on above: Order Comment: Metho d of Collection:: Masturbation Has the patient had a vasectomy?: N Type of Specimen Container:: Sterile Container Abstinence Period:: 48 HRS Kept at body temperature?: Y Any Collection or Transport Problems?: NO Result Comment: NO S PERM SEEN CONFIRMED BY SECOND TECH/@[facility] STEVAN PERFORMED BY: [place] [address] PATHOLOGIST MATERIALS MANAGEMENT SUPERVISOR CARLITA SEALS M.D. Performed By: #### S EMCOMP #### [address] Semen Liquefaction Normal Normal <=60 min [facility] Comment on above: Order Comment: Metho d of Collection:: Masturbation Has the patient had a vasectomy?: N Type of Specimen Container:: Sterile Container Abstinence Period:: 48 HRS Kept at body temperature?: Y Any Collection or Transport Problems?: NO Performed By: #### S EMCOMP #### [address] Semen Viscosity Normal Normal Normal [facility] Comment on above: Order Comment: Metho d of Collection:: Masturbation Has the patient had a vasectomy?: N Type of Specimen Container:: Sterile Container Abstinence Period:: 48 HRS Kept at body temperature?: Y Any Collection or Transport Problems?: NO Performed By: #### S EMCOMP #### [place] [address] [place] Semen Volume 1.0 mL Low >=1.5 [facility] Comment on above: Order Comment: Metho d of Collection:: Masturbation Has the patient had a vasectomy?: N Type of Specimen Container:: Sterile Container Abstinence Period:: 48 HRS Kept at body temperature?: Y Any Collection or Transport Problems?: NO Performed By: #### S EMCOMP #### [facility] [address] Sperm Concentration <2.0 Low >=15 [facility] Comment on above: Order Comment: Metho d of Collection:: Masturbation Has the patient had a vasectomy?: N Type of Specimen Container:: Sterile Container Abstinence Period:: 48 HRS Kept at body temperature?: Y Any Collection or Transport Problems?: NO Result Comment: Suboptimal specimen. Unable to perform morphology testing. Performed By: #### S EMCOMP #### [address] Total Motility (SD+CLINICAL EDUCATION CONSULTANT) Not performed Normal >=40 (SD+N P) [facility] Comment on above: Order Comment: Metho d of Collection:: Masturbation Has the patient had a vasectomy?: N Type of Specimen Container:: Sterile Container Abstinence Period:: 48 HRS Kept at body temperature?: Y Any Collection or Transport Problems?: NO Performed By: #### S EMCOMP #### [address] WBC Concent, Semen <1.0 Normal <1.0 [facility] Comment on above: Order Comment: Metho d of Collection:: Masturbation Has the patient had a vasectomy?: N Type of Specimen Container:: Sterile Container Abstinence Period:: 48 HRS Kept at body temperature?: Y Any Collection or Transport Problems?: NO Performed By: #### S EMCOMP #### [address] Semen Analysis, FertilityOrd ered By: Derek Burks on 04-12-2022 Semen Appearance Normal Normal Normal [facility] Comment on above: Order Comment: Metho d of Collection:: Masturbation Has the patient had a vasectomy?: N Type of Specimen Container:: Sterile Container Abstinence Period:: 48 HRS Kept at body temperature?: Y Any Collection or Transport Problems?: NO Performed By: #### S EMCOMP #### [facility] [address] Semen pH 6.0 Low >=7.2 [facility] Comment on above: Order Comment: Metho d of Collection:: Masturbation Has the patient had a vasectomy?: N Type of Specimen Container:: Sterile Container Abstinence Period:: 48 HRS Kept at body temperature?: Y Any Collection or Transport Problems?: NO Performed By: #### S EMCOMP #### [facility] [address] Semen liquefaction time abhinav urementOrdered By: Derek Burks on 04-12-2022 Liquefaction (Jeanie) [Time] Normal <=60 min [facility] Semen volumeOrdered By: Celso Burks on 04-12-2022 Specimen volume (Jeanie) 1.0 mL >1.5 [facility] Sperm countOrdered By: Derek Burks on 04-12-2022 Spermatozoa (Jeanie) [#/Vol] <2.0 M/mL >15 [facility] Comment on above: Suboptimal specimen. Unable to perform morphology testing. Sperm morphologyOrdered By: Derek Burks on 04-12-2022 Spermatozoa Nom (Jeanie) TNP [facility] Comment on above: Test not performed LAMOTRIGINEon 04-09-2022 Lamotrigine, Serum 6.7 ug/mL Normal 2.0-20.0 [facility] Comment on above: Result Comment: Dete ction Limit = 1.0 Performed By: #### C BC #### [facility] [address] [address] [address] Bob Nelson LAMOTRIGINEon 03-02-2022 Lamotrigine, Serum 2.3 ug/mL Normal 2.0-20.0 [facility] Comment on above: Result Comment: Dete ction Limit = 1.0 Performed By: #### C MP #### [facility] [address] [place] [address] Dr. Bob Nelson OXCARBAZEPINEon 03-01-2022 Oxcarbazepine 5 ug/mL Critically low 10-35 [facility] Comment on above: Result Comment: This test was developed and its performance characteristics determined by [facility]. It has not been cleared or approved by the Food and Drug Administration. Detection Limit = 1 Performed By: #### B MP #### [facility] [address] [place] [address] Dr. Bob Nelson CBC AUTO DIFFon 02-28-2022 BASO # 0.0 103/ul Normal 0.0-0.1 [facility] Comment on above: Performed By: #### C MP #### [facility] [address] [place] [address] Dr. Bob Nelson Basophils/100 WBC (Bld) 0.5 % Normal 0.2-2.0 [facility] Comment on above: Performed By: #### C MP #### [facility] [address] [place] [address] Dr. Bob Nelson EO # 0.1 103/ul Normal 0.0-0.7 [facility] Comment on above: Performed By: #### C MP #### [facility] [address] [place] [address] Dr. Bob Nelson Eosinophils/100 WBC (Bld) 0.9 % Normal 0.9-7.0 [facility] Comment on above: Performed By: #### C MP #### [facility] [address] [place] [address] Dr. Bob Nelson Erythrocyte distribution width (RBC) [Ratio] 12.8 % Normal 11.0-15.0 [facility] Comment on above: Performed By: #### C MP #### [facility] [address] [place] [address] Dr. Bob Nelson Hematocrit (Bld) [Volume fraction] 43.8 % Normal 42.0-54.0 [facility] Comment on above: Performed By: #### C MP #### [facility] [address] [place] [address] Dr. Bob Nelson Hemoglobin (Bld) [Mass/Vol] 14.9 g/dL Normal 14.0-18.0 [facility] Comment on above: Performed By: #### C MP #### [facility] [address] [place] [address] Dr. Bob Nelson IG # 0.02 10e3/ul Normal 0.00-0.03 [facility] Comment on above: Performed By: #### C MP #### [facility] [address] [place] [address] Dr. Bob Nelson IG % 0.3 % Normal 0.0-0.5 [facility] Comment on above: Performed By: #### C MP #### [facility] [address] [place] [address] Dr. Bob Nelson LYMPH # 2.2 103/ul Normal 1.2-3.8 [facility] Comment on above: Performed By: #### C MP #### [facility] [address] [place] [address] Dr. Bob Nelson Lymphocytes/100 WBC (Bld) 34.0 % Normal 20.5-60.0 [facility] Comment on above: Performed By: #### C MP #### [facility] [address] [place] [address] Dr. Bob Nelson MANUAL DIFF REQ NO Normal [facility] Comment on above: Performed By: #### C MP #### [facility] [address] [place] [address] Dr. Bob Nelson MCH (RBC) [Entitic mass] 28.4 pg Normal 25.9-34.0 [facility] Comment on above: Performed By: #### C MP #### [facility] [address] [place] [address] Dr. Bob Nelson MCHC (RBC) [Mass/Vol] 34.0 g/dL Normal 29.9-35.2 [facility] Comment on above: Performed By: #### C MP #### [facility] [address] [place] [address] Dr. Bob Nelson MCV (RBC) [Entitic vol] 83.6 fL Normal 80.0-94.0 [facility] Comment on above: Performed By: #### C MP #### [facility] [address] [place] [address] Dr. Bob Nelson MONO # 0.5 103/ul Normal 0.3-0.8 [facility] Comment on above: Performed By: #### C MP #### [facility] [address] [place] [address] Dr. Bob Nelson Monocytes/100 WBC (Bld) 7.9 % Normal 1.7-12.0 [facility] Comment on above: Performed By: #### C MP #### [facility] [address] [place] [address] Dr. Bob Nelson NEUT # 3.6 103/ul Normal 1.4-6.5 [facility] Comment on above: Performed By: #### C MP #### [facility] [address] [place] [address] Dr. Bob Nelson Neutrophils/100 WBC (Bld) 56.4 % Normal 43.0-75.0 [facility] Comment on above: Performed By: #### C MP #### [facility] [address] [place] [address] Dr. Bob Nelson Platelet mean volume (Bld) [Entitic vol] 9.5 fL Normal 9.5-13.5 [facility] Comment on above: Performed By: #### C MP #### [facility] [address] [place] [address] Dr. Bob Nelson PLT 192 103/ul Normal 150-450 [facility] Comment on above: Performed By: #### C MP #### [facility] [address] [place] [address] Dr. Bob Nelson RBC 5.24 106/ul Normal 4.70-6.10 [facility] Comment on above: Performed By: #### C MP #### [facility] [address] [place] [address] Dr. Bob Nelson WBC 6.4 103/ul Normal 4.0-11.0 [facility] Comment on above: Performed By: #### C MP #### [facility] [address] [address] [address] Bob Nelson PROF 14(COMP METB)on 022 Albumin [Mass/Vol] 3.9 g/dL Normal 3.4-5.0 [facility] Comment on above: Performed By: #### C MP #### [facility] [address] [address] [address] Bob Nelson Albumin/Globulin [Mass ratio] 1.3 {ratio} Normal [facility] Comment on above: Performed By: #### C MP #### [facility] [address] [address] [address] Bob Nelson ALP [Catalytic activity/Vol] 68 U/L Normal 46-116 [facility] Comment on above: Performed By: #### C MP #### [facility] [address] [place] [address] Dr. Bob Nelson ALT [Catalytic activity/Vol] 170 U/L Critically high 16-63 [facility] Comment on above: Performed By: #### C MP #### [facility] [address] [address] [address] Bob Nelson Anion gap [Moles/Vol] 11.0 mmol/L Normal [facility] Comment on above: Performed By: #### C MP #### [facility] [address] [place] [address] Dr. Bob Nelson AST [Catalytic activity/Vol] 48 U/L Critically high 15-37 [facility] Comment on above: Performed By: #### C MP #### [facility] [address] [address] [address] Bob Nelson Bilirubin [Mass/Vol] 0.6 mg/dL Normal 0.2-1.0 [facility] Comment on above: Performed By: #### C MP #### [facility] [address] [address] [address] Bob Nelson Calcium [Mass/Vol] 9.1 mg/dL Normal 8.5-10.1 [facility] Comment on above: Performed By: #### C MP #### [facility] [address] [address] [address] Bob Nelson Chloride [Moles/Vol] 105 mmol/L Normal 98-107 [facility] Comment on above: Performed By: #### C MP #### [facility] [address] [address] [address] Bob Nelson CO2 [Moles/Vol] 28.9 mmol/L Normal 21.0-32.0 [facility] Comment on above: Performed By: #### C MP #### [facility] [address] [place] [address] Dr. Bob Nelson Creatinine [Mass/Vol] 0.96 mg/dL Normal 0.70-1.30 [facility] Comment on above: Performed By: #### C MP #### [facility] [address] [place] [address] Dr. Bob Nelson EGFR-AF SYRIAN >60 Normal >=60 [facility] Comment on above: Performed By: #### C MP #### [facility] [address] [place] [address] Dr. Bob Nelson EGFR-NON AF SYRIAN >60 Normal >=60 [facility] Comment on above: Performed By: #### C MP #### [facility] [address] [place] [address] Dr. Bob Nelson Globulin (S) [Mass/Vol] 3.0 g/dL Normal [facility] Comment on above: Performed By: #### C MP #### [facility] [address] [place] [address] Dr. Bob Nelson Glucose [Mass/Vol] 98 mg/dL Normal 74-106 [facility] Comment on above: Performed By: #### C MP #### [facility] [address] [place] [address] Dr. Bob Nelson Potassium [Moles/Vol] 3.9 mmol/L Normal 3.5-5.1 [facility] Comment on above: Performed By: #### C MP #### [facility] [address] [place] [address] Dr. Bob Nelson Protein [Mass/Vol] 6.9 g/dL Normal 6.4-8.2 [facility] Comment on above: Performed By: #### C MP #### [facility] [address] [place] [address] Dr. Bob Nelson Sodium [Moles/Vol] 141 mmol/L Normal 136-145 [facility] Comment on above: Performed By: #### C MP #### [facility] [address] [place] [address] Dr. Bob Nelson Urea nitrogen [Mass/Vol] 14.0 mg/dL Normal 7.0-18.0 [facility] Comment on above: Performed By: #### C MP #### [facility] [address] [place] [address] Dr. Bob Nelson Urea nitrogen/Creatinine [Mass ratio] 14.6 mg/mg Normal [facility] Comment on above: Performed By: #### C MP #### [facility] [address] [place] [address] Dr. Bob Nelson CBC AUTO DIFFon 02-27-2022 BASO # 0.0 103/ul Normal 0.0-0.1 [facility] Comment on above: Performed By: #### B MP #### [facility] [address] [place] [address] Dr. Bob Nelson Basophils/100 WBC (Bld) 0.5 % Normal 0.2-2.0 [facility] Comment on above: Performed By: #### B MP #### [facility] [address] [place] [address] Dr. Bob Nelson EO # 0.1 103/ul Normal 0.0-0.7 [facility] Comment on above: Performed By: #### B MP #### [facility] [address] [place] [address] Dr. Bob Nelson Eosinophils/100 WBC (Bld) 0.6 % Critically low 0.9-7.0 [facility] Comment on above: Performed By: #### B MP #### [facility] [address] [place] [address] Dr. Bob Nelson Erythrocyte distribution width (RBC) [Ratio] 12.5 % Normal 11.0-15.0 [facility] Comment on above: Performed By: #### B MP #### [facility] [address] [place] [address] Dr. Bob Nelson Hematocrit (Bld) [Volume fraction] 46.1 % Normal 42.0-54.0 [facility] Comment on above: Performed By: #### B MP #### [facility] [address] [place] [address] Dr. Bob Nelson Hemoglobin (Bld) [Mass/Vol] 16.1 g/dL Normal 14.0-18.0 [facility] Comment on above: Performed By: #### B MP #### [facility] [address] [place] [address] Dr. Bob Nelson IG # 0.02 10e3/ul Normal 0.00-0.03 [facility] Comment on above: Performed By: #### B MP #### [facility] [address] [place] [address] Dr. Bob Nelson IG % 0.3 % Normal 0.0-0.5 [facility] Comment on above: Performed By: #### B MP #### [facility] [address] [place] [address] Dr. Bob Nelson LYMPH # 1.3 103/ul Normal 1.2-3.8 [facility] Comment on above: Performed By: #### B MP #### [facility] [address] [place] [address] Dr. Bob Nelson Lymphocytes/100 WBC (Bld) 16.2 % Critically low 20.5-60.0 [facility] Comment on above: Performed By: #### B MP #### [facility] [address] [place] [address] Dr. Bob Nelson MANUAL DIFF REQ NO Normal [facility] Comment on above: Performed By: #### B MP #### [facility] [address] [place] [address] Dr. Bob Nelson MCH (RBC) [Entitic mass] 28.6 pg Normal 25.9-34.0 [facility] Comment on above: Performed By: #### B MP #### [facility] [address] [place] [address] Dr. Bob Nelson MCHC (RBC) [Mass/Vol] 34.9 g/dL Normal 29.9-35.2 [facility] Comment on above: Performed By: #### B MP #### [facility] [address] [place] [address] Dr. Bob Nelson MCV (RBC) [Entitic vol] 81.9 fL Normal 80.0-94.0 [facility] Comment on above: Performed By: #### B MP #### [facility] [address] [place] [address] Dr. oBb Nelson MONO # 0.4 103/ul Normal 0.3-0.8 [facility] Comment on above: Performed By: #### B MP #### [facility] [address] [place] [address] Dr. Bob Nelson Monocytes/100 WBC (Bld) 5.0 % Normal 1.7-12.0 [facility] Comment on above: Performed By: #### B MP #### [facility] [address] [place] [address] Dr. Bob Nelson NEUT # 6.1 103/ul Normal 1.4-6.5 [facility] Comment on above: Performed By: #### B MP #### [facility] [address] [place] [address] Dr. Bob Nelson Neutrophils/100 WBC (Bld) 77.4 % Critically high 43.0-75.0 [facility] Comment on above: Performed By: #### B MP #### [facility] [address] [place] [address] Dr. Bob Nelson Platelet mean volume (Bld) [Entitic vol] 9.5 fL Normal 9.5-13.5 [facility] Comment on above: Performed By: #### B MP #### [facility] [address] [place] [address] Dr. Bob Nelson PLT 203 103/ul Normal 150-450 [facility] Comment on above: Performed By: #### B MP #### [facility] [address] [place], [place] [address] Dr. Bob Nelson RBC 5.63 106/ul Normal 4.70-6.10 [facility] Comment on above: Performed By: #### B MP #### [facility] [address] [place], [place] [address] Dr. Bob Nelsno WBC 7.9 103/ul Normal 4.0-11.0 [facility] Comment on above: Performed By: #### B MP #### [facility] [address] [place], [place] [address] HEAD WO CONon 02-27-2022 CT HEAD WO CON EXAMINATION: CT HEAD WO CON HISTORY: Seizure disorder COMPARISON: CT head 12/30/2021 TECHNIQUE: Axial CT images were obtained without IV contrast. Dose reduction techniques were achieved by using automated exposure control and/or adjustment of mA and/or kV according to patient size and/or use of iterative reconstruction technique. FINDINGS: BRAIN: No edema, hemorrhage, mass, acute infarction, or inappropriate atrophy. CSF SPACES: No hydrocephalus, subarachnoid hemorrhage, or mass. Appropriate for age. SKULL: No fracture, mass, or other significant visible lesion. SINUSES: Mucocele versus retention cyst within left maxillary sinus. ORBITS: No appreciable abnormality on the limited views. OTHER: Negative IMPRESSION: 1. No acute or suspicious abnormality of the brain. 2. Mild chronic sinusitis. Electronically authenticated by: CHERI CONNER Date: 2022-02-27 15:43 Normal [facility]on SARS-CoV-2 (COVID-19) RNA MAHESH+probe Ql (Unsp spec) Not detected Normal NOT DETECTED [facility] Comment on above: Result Comment: When diagnostic testing is negative, the possibility of a false negative should be considered in the context of a patient's recent exposures and the presence of clinical signs and symptoms consistent with SARS-CoV-2. This test is not yet approved or cleared by the [place] FDA. When there are no FDA-approved or cleared tests available, and other criteria are met, FDA can make tests available under an emergency access mechanism called an Emergency Use Authorization (EUA). The EUA for this test is supported by the [place] of Health and Human Service's declaration that circumstances exist to justify the emergency use of in vitro diagnostics for the detection and/or diagnosis of the virus that causes COVID-19. This EUA will remain in effect for the duration of the COVID-19 declaration justifying emergency of IVDs, unless it is terminated or revoked by the FDA (after which the test may no longer be used). Performed By: #### C MP #### [facility] [address] [place] [address] Dr. Bob Nelson LACTATE/LACTIC ACIDon 2021 Lactate [Moles/Vol] 0.9 mmol/L Normal 0.4-1.9 [facility] Comment on above: Performed By: #### L ACT #### [facility] [address] [place] [address] Dr. Bob Nelson Lactate [Moles/Vol] 3.9 mmol/L Critically high 0.4-1.9 [facility] Comment on above: Performed By: #### B MP #### [facility] [address] [place] [address] Dr. Bob Nelson PROF CHEM 8 (BAS METB)on Anion gap [Moles/Vol] 16.1 mmol/L Normal [facility] Comment on above: Performed By: #### B MP #### [facility] [address] [place] [address] Dr. Bob Nelson Calcium [Mass/Vol] 8.9 mg/dL Normal 8.5-10.1 [facility] Comment on above: Performed By: #### B MP #### [facility] [address] [place] [address] Dr. Bob Nelson Chloride [Moles/Vol] 99 mmol/L Normal 98-107 [facility] Comment on above: Performed By: #### B MP #### [facility] [address] [place] [address] Dr. Bob Nelson CO2 [Moles/Vol] 24.0 mmol/L Normal 21.0-32.0 [facility] Comment on above: Performed By: #### B MP #### [facility] [address] [address] [address] Bob Nelson Creatinine [Mass/Vol] 1.13 mg/dL Normal 0.70-1.30 [facility] Comment on above: Performed By: #### B MP #### [facility] [address] [address] [address] Bob Nelson EGFR-AF SYRIAN >60 Normal >=60 [facility] Comment on above: Performed By: #### B MP #### [facility] [address] [address] [address] Bob Nelson EGFR-NON AF SYRIAN >60 Normal >=60 [facility] Comment on above: Performed By: #### B MP #### [facility] [address] [place] [address] Dr. Bob Nelson Glucose [Mass/Vol] 158 mg/dL Critically high 74-106 T [facility] Comment on above: Performed By: #### B MP #### [facility] [address] [place] [address] Dr. Bob Nelson Potassium [Moles/Vol] 4.1 mmol/L Normal 3.5-5.1 [facility] Comment on above: Performed By: #### B MP #### [facility] [address] [place] [address] Dr. Bob Nelson Sodium [Moles/Vol] 135 mmol/L Critically low 136-145 [facility] [place] Comment on above: Performed By: #### B MP #### [facility] [address] [place] [address] Dr. Bob Nelson Urea nitrogen [Mass/Vol] 15.0 mg/dL Normal 7.0-18.0 [facility] Comment on above: Performed By: #### B MP #### [facility] [address] [place] [address] Dr. Bob Nelson Urea nitrogen/Creatinine [Mass ratio] 13.3 mg/mg Normal [facility] Comment on above: Performed By: #### B MP #### [facility] [address] [place] [address] Dr. 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 Bob Nelson Clarity (U) CLEAR Normal CLEAR [facility] Comment on above: Performed By: #### C MP #### [facility] [address] [place] [address] Dr. Bob Nelson Color (U) LT. YELLOW Normal YELLOW [facility] Comment on above: Performed By: #### C MP #### [facility] [address] [place] [address] Dr. Bob Nelson Glucose Ql (U) Negative Normal NEGATIVE [facility] Comment on above: Performed By: #### C MP #### [facility] [address] [place] [address] Dr. Bob Nelson Hemoglobin Ql (U) TRACE-INTACT Abnormal NEGATIVE [facility] Comment on above: Performed By: #### C MP #### [facility] [address] [place] [address] Dr. Bob Nelson Ketones Ql (U) Negative Normal NEGATIVE [facility] Comment on above: Performed By: #### C MP #### [facility] [address] [place] [address] Dr. Bob Nelson LEUKOCYTES Negative Normal NEGATIVE [facility] Comment on above: Performed By: #### C MP #### [facility] [address] [place] [address] Dr. Bob Nelson Nitrite Ql (U) Negative Normal NEGATIVE [facility] Comment on above: Performed By: #### C MP #### [facility] [address] [place] [address] Dr. Bob Nelson pH (U) 5.5 [pH] Normal 5-9 [facility] Comment on above: Performed By: #### C MP #### [facility] [address] [place] [address] Dr. Bob Nelson SPEC GRAVITY 1.010 Normal 1.005-<=1.02 5 [facility] Comment on above: Performed By: #### C MP #### [facility] [address] [place] [address] Dr. Bob Nelson UA PROTEIN Negative Normal NEGATIVE/ TRACE [facility] Comment on above: Performed By: #### C MP #### [facility] [address] [place] [address] Dr. Bob Nelson UR MICRO IND INDICATED Normal [facility] Comment on above: Performed By: #### C MP #### [facility] [address] [place] [address] Dr. Bob Nelson Urobilinogen Qn (U) 0.2 {Lance'U}/dL Normal 0.2 - 1. 0 [facility] Comment on above: Performed By: #### C MP #### [facility] [address] [place] [address] Dr. Bob Nelson URINE MICROSCOPIC ONLYon BACTERIA NONE SEEN Normal NONE SEEN [facility] Comment on above: Performed By: #### C MP #### [facility] [address] [place] [address] Dr. Bob Nelson Bacteria identified Cx Nom (U) NOT INDICATED Normal [facility] Comment on above: Performed By: #### C MP #### [facility] [address] [place] [address] Dr. Bob Nelson CAST NONE SEEN Normal NONE SEEN [facility] Comment on above: Performed By: #### C MP #### [facility] [address] [place] [address] Dr. Bob Nelson Crystals LM Nom (Urine sed) NONE SEEN Normal NONE SEEN [facility] Comment on above: Performed By: #### C MP #### [facility] [address] [place] [address] Dr. Bob Nelson Epithelial cells LM Ql (Urine sed) RARE Normal NONE SEEN /RARE [facility] Comment on above: Performed By: #### C MP #### [facility] [address] [place] [address] Dr. Bob Nleson MUCOUS NONE SEEN Normal NONE SEEN [facility] Comment on above: Performed By: #### C MP #### [facility] [address] [place] [address] Dr. Bob Nelson RBC 0-2 Normal 0-2 [facility] Comment on above: Performed By: #### C MP #### [facility] [address] [place] [address] Dr. Bob Nelson WBC NONE SEEN Normal NONE SEEN [facility] Comment on above: Performed By: #### C MP #### [facility] [address] [place] [address] Dr. Bob Nelson XR CHEST 2 Von 02-27-2022 XR CHEST 2 V EXAMINATION: XR CHEST 2 V HISTORY: Seizure disorder COMPARISON: XR chest 05/03/2017 FINDINGS: LUNGS: No significant pulmonary parenchymal abnormalities. VASCULATURE: No increased pulmonary vasculature. PLEURA: No pneumothorax, effusion, or pleural thickening. CARDIAC: No cardiomegaly or cardiac silhouette abnormality. MEDIASTINUM: No visible mass or adenopathy. BONES: No fracture or visible bone lesion. OTHER: Negative. IMPRESSION: 1. No acute cardiopulmonary process. Electronically authenticated by: CHERI CONNER Date: 2022-02-27 15:45 Normal [facility] CBC AUTO DIFFon 02-02-2022 BASO # 0.0 103/ul Normal 0.0-0.1 [facility] Comment on above: Performed By: #### C MP #### [facility] [address] [place] [address] Dr. Bob Nelson Basophils/100 WBC (Bld) 0.2 % Normal 0.2-2.0 T [facility] Comment on above: Performed By: #### C MP #### [facility] [address] [place] [address] Dr. Bob Nelsno EO # 0.1 103/ul Normal 0.0-0.7 [facility] Comment on above: Performed By: #### C MP #### [facility] [address] [place] [address] Dr. Bob Nelson Eosinophils/100 WBC (Bld) 0.7 % Critically low 0.9-7.0 [facility] Comment on above: Performed By: #### C MP #### [facility] [address] [place] [address] Dr. Bob Nelson Erythrocyte distribution width (RBC) [Ratio] 12.4 % Normal 11.0-15.0 [facility] Comment on above: Performed By: #### C MP #### [facility] [address] [place] [address] Dr. Bob Nelson Hematocrit (Bld) [Volume fraction] 46.1 % Normal 42.0-54.0 [facility] Comment on above: Performed By: #### C MP #### [facility] [address] [place] [address] Dr. Bob Nelson Hemoglobin (Bld) [Mass/Vol] 16.0 g/dL Normal 14.0-18.0 [facility] Comment on above: Performed By: #### C MP #### [facility] [address] [place] [address] Dr. Bob Nelson IG # 0.03 10e3/ul Normal 0.00-0.03 [facility] Comment on above: Performed By: #### C MP #### [facility] [address] [place] [address] Dr. Bob Nelson IG % 0.3 % Normal 0.0-0.5 [facility] Comment on above: Performed By: #### C MP #### [facility] [address] [place] [address] Dr. Bob Nelson LYMPH # 1.5 103/ul Normal 1.2-3.8 [facility] Comment on above: Performed By: #### C MP #### [facility] [address] [place] [address] Dr. Bob Nelson Lymphocytes/100 WBC (Bld) 16.0 % Critically low 20.5-60.0 [facility] Comment on above: Performed By: #### C MP #### [facility] [address] [place] [address] Dr. Bob Nelson MANUAL DIFF REQ NO Normal [facility] Comment on above: Performed By: #### C MP #### [facility] [address] [address] [address] Bob Nelson MCH (RBC) [Entitic mass] 28.6 pg Normal 25.9-34.0 [facility] Comment on above: Performed By: #### C MP #### [facility] [address] [address] [address] Bob Nelson MCHC (RBC) [Mass/Vol] 34.7 g/dL Normal 29.9-35.2 [facility] Comment on above: Performed By: #### C MP #### [facility] [address] [address] [address] Bob Nelson MCV (RBC) [Entitic vol] 82.5 fL Normal 80.0-94.0 [facility] Comment on above: Performed By: #### C MP #### [facility] [address] [address] [address] Bob Nelson MONO # 0.6 103/ul Normal 0.3-0.8 [facility] Comment on above: Performed By: #### C MP #### [facility] [address] [address] [address] Bob Nelson Monocytes/100 WBC (Bld) 5.7 % Normal 1.7-12.0 [facility] Comment on above: Performed By: #### C MP #### [facility] [address] [address] [address] Bob Nelson NEUT # 7.4 103/ul Critically high 1.4-6.5 [facility] Comment on above: Performed By: #### C MP #### [facility] [address] [address] [address] Bob Nelson Neutrophils/100 WBC (Bld) 77.1 % Critically high 43.0-75.0 [facility] Comment on above: Performed By: #### C MP #### [facility] [address] [address] [address] Bob Nelson Platelet mean volume (Bld) [Entitic vol] 9.3 fL Critically low 9.5-13.5 [facility] Comment on above: Performed By: #### C MP #### [facility] [address] [place] [address] Dr. Bob Nelson PLT 184 103/ul Normal 150-450 [facility] Comment on above: Performed By: #### C MP #### [facility] [address] [place] [address] Dr. Bob Nelson RBC 5.59 106/ul Normal 4.70-6.10 [facility] Comment on above: Performed By: #### C MP #### [facility] [address] [place] [address] Dr. Bob Nelson WBC 9.6 103/ul Normal 4.0-11.0 [facility] Comment on above: Performed By: #### C MP #### [facility] [address] [place] [address] Dr. Bob Nelson PROF 14(COMP METB)on 022 Albumin [Mass/Vol] 4.3 g/dL Normal 3.4-5.0 [facility] Comment on above: Performed By: #### C BC #### [facility] [address] [place] [address] Dr. Bob Nelson Albumin/Globulin [Mass ratio] 1.3 {ratio} Normal [facility] Comment on above: Performed By: #### C BC #### [facility] [address] [place] [address] Dr. Bob Nelson ALP [Catalytic activity/Vol] 86 U/L Normal 46-116 [facility] Comment on above: Performed By: #### C BC #### [facility] [address] [place] [address] Dr. Bob Nelson ALT [Catalytic activity/Vol] 87 U/L Critically high 16-63 [facility] Comment on above: Performed By: #### C BC #### [facility] [address] [place] [address] Dr. Bob Nelson Anion gap [Moles/Vol] 11.9 mmol/L Normal [facility] Comment on above: Performed By: #### C BC #### [facility] [address] [address] [address] Bob Nelson AST [Catalytic activity/Vol] 44 U/L Critically high 15-37 [facility] Comment on above: Performed By: #### C BC #### [facility] [address] [address] [address] Bob Nelson Bilirubin [Mass/Vol] 0.3 mg/dL Normal 0.2-1.0 [facility] Comment on above: Performed By: #### C BC #### [facility] [address] [address] [address] Bob Nelson Calcium [Mass/Vol] 9.3 mg/dL Normal 8.5-10.1 [facility] Comment on above: Performed By: #### C BC #### [facility] [address] [place] [address] Dr. Bob Nelson Chloride [Moles/Vol] 102 mmol/L Normal 98-107 [facility] Comment on above: Performed By: #### C BC #### [facility] [address] [address] [address] Bob Nelson CO2 [Moles/Vol] 27.8 mmol/L Normal 21.0-32.0 [facility] Comment on above: Performed By: #### C BC #### [facility] [address] [address] [address] Bob Nelson Creatinine [Mass/Vol] 1.16 mg/dL Normal 0.70-1.30 [facility] Comment on above: Performed By: #### C BC #### [facility] [address] [address] [address] Bob Nelson EGFR-AF SYRIAN >60 Normal >=60 [facility] Comment on above: Performed By: #### C BC #### [facility] [address] [place] [address] Dr. Bob Nelson EGFR-NON AF SYRIAN >60 Normal >=60 [facility] Comment on above: Performed By: #### C BC #### [facility] [address] [place] [address] Dr. Bob Nelson Globulin (S) [Mass/Vol] 3.3 g/dL Normal [facility] Comment on above: Performed By: #### C BC #### [facility] [address] [address] [address] Bob Nelson Glucose [Mass/Vol] 112 mg/dL Critically high 74-106 [facility] Comment on above: Performed By: #### C BC #### [facility] [address] [address] [address] Bob Nelson Potassium [Moles/Vol] 3.7 mmol/L Normal 3.5-5.1 [facility] Comment on above: Performed By: #### C BC #### [facility] [address] [place] [address] Dr. Bob Nelson Protein [Mass/Vol] 7.6 g/dL Normal 6.4-8.2 [facility] Comment on above: Performed By: #### C BC #### [facility] [address] [place] [address] Dr. Bob Nelson Sodium [Moles/Vol] 138 mmol/L Normal 136-145 [facility] Comment on above: Performed By: #### C BC #### [facility] [address] [place] [address] Dr. Bob Nelson Urea nitrogen [Mass/Vol] 11.0 mg/dL Normal 7.0-18.0 [facility] Comment on above: Performed By: #### C BC #### [facility] [address] [place] [address] Dr. Bob Nelson Urea nitrogen/Creatinine [Mass ratio] 9.5 mg/mg Normal [facility] Comment on above: Performed By: #### C BC #### [facility] [address] [place] [address] Dr. Bob Nelson Progress Noteson 02-02-2022 [employer] Authentication Interface Message Text EMERGENCY TRIAGE, TREAT AND TRANSPORT (ET3) DOCUMENTATION OF TELEHEALTH VISIT Date / Time: 02/02/2022599 Name: Corey Alonso : 1995 SSN: [id number] EMS Agency: [facility] [x] Verbal consent obtained [] Implied consent - patient with potential emergency medical condition requiring assessment of capacity to refuse treatment and/or transport VITAL SIGNS: see flowsheet documentation Reason for Telehealth Visit: Chief Complaint Patient presents with * Seizures Seizure History of Present Ilness: Patient is a 26-year-old male, reports left knee when her left elbow who had a seizure this morning. History provided by the patient as states was sleeping side when she woke up to the sound of him choking, and he was tense and shaking in bed next to her. He bit his tongue and was bleeding. Bleeding controlled. called EMS. Seizure lasted approximately 10-15 minutes resolved just prior to EMS arrival. Patient reports he has a seizure every 2 months approximately, he has been diagnosed with epilepsy he follows with a neurologist Dr. Granado. He states he has not missed any of his medications. Patient reports he feels well now. Asymptomatic currently. He does not want to go to the ER via ambulance Denies recent illness drug or alcohol use. Additional pertinent PMHx, SocHx, FamHx: PMH: epilepsy Soc: lives with and child Review of Systems: Denies the following: F/c, cough rhinorrhea congestion, chest pain shortness of breath, abdominal pain nausea vomiting diarrhea. No headache vision change weakness numbness. No trauma. Exam: General: Awake, no distress ENT: normocephalic, atraumatic, no oropharyngeal bleeding now Pulmonary: No respiratory distress, equal and symmetric cw rise and fall Cardiovascular: Well perfused Neurologic: Oriented to person, place, time and events. Moving all extremities equally. GCS 15. No gross focal deficit Psychiatric: Appropriate. Good insight and judgement. - no signs trauma BP 128/82 Pulse 96 Temp 98 ???F (36.7 ???C) Resp 18 SpO2 98% Medical Decision Making: Patient is a 26-year-old male past medical history of epilepsy with breakthrough seizure today. Currently at baseline. Is compliant with his medications. Low suspicion acute emergent etiology to patient's breakthrough seizure. No sign of trauma or infection low suspicion tox. Discussed with patient options for further caret, he can call his neurologist at 7:00 a.m., verses transport to the ED via private car the his Patient verbalized understanding he will call his neurologist at 7:00 a.m.. His will stay with him and if he has a seizure again will call EMS. Reviewed reasons to call EMS. Reviewed outpatient follow-up. Reviewed med compliance importance. Disposition Supported by Telehealth Assessment: ET3 transport decisions: Other (see below) EMS Disposition Reported: Same ET3 Encounter Completed by: Maritza Romo MD Normal [facility] CBC AUTO DIFFon 12-30-2021 BASO # 0.0 103/ul Normal 0.0-0.1 [facility] Comment on above: Performed By: #### C BC #### [facility] [address] [place] [address] Dr. Bob Nelson Basophils/100 WBC (Bld) 0.6 % Normal 0.2-2.0 [facility] Comment on above: Performed By: #### C BC #### [facility] [address] [place] [address] Dr. Bob Nelson EO # 0.0 103/ul Normal 0.0-0.7 [facility] Comment on above: Performed By: #### C BC #### [facility] [address] [place] [address] Dr. Bob Nelson Eosinophils/100 WBC (Bld) 0.6 % Critically low 0.9-7.0 [facility] Comment on above: Performed By: #### C BC #### [facility] [address] [place] [address] Dr. Bob Nelson Erythrocyte distribution width (RBC) [Ratio] 12.3 % Normal 11.0-15.0 [facility] Comment on above: Performed By: #### C BC #### [facility] [address] [place] [address] Dr. Bob Nelson Hematocrit (Bld) [Volume fraction] 48.5 % Normal 42.0-54.0 [facility] Comment on above: Performed By: #### C BC #### [facility] [address] [place] [address] Dr. Bob Nelson Hemoglobin (Bld) [Mass/Vol] 16.1 g/dL Normal 14.0-18.0 [facility] Comment on above: Performed By: #### C BC #### [facility] [address] [place] [address] Dr. Bob Nelson IG # 0.03 10e3/ul Normal 0.00-0.03 [facility] Comment on above: Performed By: #### C BC #### [facility] [address] [place] [address] Dr. Bob Nelson IG % 0.4 % Normal 0.0-0.5 [facility] Comment on above: Performed By: #### C BC #### [facility] [address] [place] [address] Dr. Bob Nelson LYMPH # 2.2 103/ul Normal 1.2-3.8 [facility] Comment on above: Performed By: #### C BC #### [facility] [address] [place] [address] Dr. Bob Nelson Lymphocytes/100 WBC (Bld) 30.6 % Normal 20.5-60.0 [facility] Comment on above: Performed By: #### C BC #### [facility] [address] [place] [address] Dr. Bob Nelson MANUAL DIFF REQ NO Normal [facility] Comment on above: Performed By: #### C BC #### [facility] [address] [place] [address] Dr. Bob Nelson MCH (RBC) [Entitic mass] 28.1 pg Normal 25.9-34.0 [facility] Comment on above: Performed By: #### C BC #### [facility] [address] [place] [address] Dr. Bob Nelson MCHC (RBC) [Mass/Vol] 33.2 g/dL Normal 29.9-35.2 [facility] Comment on above: Performed By: #### C BC #### [facility] [address] [place] [address] Dr. Bob Nelson MCV (RBC) [Entitic vol] 84.6 fL Normal 80.0-94.0 [facility] Comment on above: Performed By: #### C BC #### [facility] [address] [place] [address] Dr. Bob Nelson MONO # 0.4 103/ul Normal 0.3-0.8 [facility] Comment on above: Performed By: #### C BC #### [facility] [address] [place] [address] Dr. Bob Nelson Monocytes/100 WBC (Bld) 6.1 % Normal 1.7-12.0 [facility] Comment on above: Performed By: #### C BC #### [facility] [address] [place] [address] Dr. Bob Nelson NEUT # 4.4 103/ul Normal 1.4-6.5 [facility] Comment on above: Performed By: #### C BC #### [facility] [address] [place] [address] Dr. Bob Nelson Neutrophils/100 WBC (Bld) 61.7 % Normal 43.0-75.0 [facility] Comment on above: Performed By: #### C BC #### [facility] [address] [place] [address] Dr. Bob Nelson Platelet mean volume (Bld) [Entitic vol] 9.5 fL Normal 9.5-13.5 [facility] Comment on above: Performed By: #### C BC #### [facility] [address] [place] [address] Dr. Bob Nelson PLT 228 103/ul Normal 150-450 [facility] Comment on above: Performed By: #### C BC #### [facility] [address] [place] [address] Dr. Bob Nelson RBC 5.73 106/ul Normal 4.70-6.10 [facility] Comment on above: Performed By: #### C BC #### [facility] [address] [place] [address] Dr. Bob Nelson WBC 7.2 103/ul Normal 4.0-11.0 [facility] Comment on above: Performed By: #### C BC #### [facility] [address] [place] [address] CSPINE WO CONon 2 CT CSPINE WO CON EXAMINATION: CT CSPINE WO CON HISTORY: Fall COMPARISON: None. TECHNIQUE: CT Cervical spine without IV contrast. Coronal and sagittal reformations were performed. Dose reduction techniques were achieved by using automated exposure control and/or adjustment of mA and/or kV according to patient size and/or use of iterative reconstruction technique. FINDINGS: Age-indeterminate straightening of the normal cervical lordosis. Vertebral body heights and alignments exhibit no fracture or listhesis. The intervertebral disc spaces and facet joints are normal. The dens and lateral masses of C1 on are symmetric. No prevertebral soft tissue edema. The visualized airway and pulmonary apices are unremarkable. No visualized irregularity of the thoracic inlet. IMPRESSION: Age-indeterminate straightening of the normal cervical lordosis. Electronically authenticated by: TRINITY KING Date: 2021-12-30 20:14 Normal [facility] CT HEAD WO CONon 12-30-2021 CT HEAD WO CON CT head without contrast CLINICAL: Headache. TECHNIQUE: Contiguous transaxial images were obtained from skull base to vertex without administration of intravenous contrast. Dose reduction: mA and/or kV are were adjusted by automated exposure control software based upon patients height and weight. FINDINGS: Comparison made to head CT dated 05/17/2021. There is no focal scalp soft tissue swelling or acute calvarial fracture. The visualized globes and orbits are grossly normal. Visualized paranasal sinuses are clear. Bilateral mastoid air cells are clear. The ventricles and sulci are normal and symmetric bilaterally. There is no intraparenchymal hemorrhage, extraaxial fluid collection, mass lesion, or acute large vessel ischemia by noncontrast CT. IMPRESSION: 1. No acute intracranial hemorrhage or large vessel ischemia by noncontrast CT. 2. No acute sinusitis. If the patient has a focal neurologic deficit or there is clinical suspicion for acute cerebrovascular accident, brain MRI would be recommended for further evaluation. Electronically authenticated by: ERNESTO GIRON Date: 2021-12-30 20:37 Normal [facility] PROF CHEM 8 (BAS METB)on Anion gap [Moles/Vol] 24.1 mmol/L Normal [facility] Comment on above: Performed By: #### B MP #### [facility] [address] [address] [address] Bob Nelson Calcium [Mass/Vol] 9.3 mg/dL Normal 8.5-10.1 [facility] Comment on above: Performed By: #### B MP #### [facility] [address] [address] [address] Bob Nelson Chloride [Moles/Vol] 101 mmol/L Normal 98-107 [facility] Comment on above: Performed By: #### B MP #### [facility] [address] [address] [address] Bob Nelson CO2 [Moles/Vol] 16.9 mmol/L Critically low 21.0-32.0 [facility] Comment on above: Performed By: #### B MP #### [facility] [address] [place] [address] Dr. Bob Nelson Creatinine [Mass/Vol] 1.13 mg/dL Normal 0.70-1.30 [facility] Comment on above: Performed By: #### B MP #### [facility] [address] [address] [address] Bob Nelson EGFR-AF SYRIAN >60 Normal >=60 [facility] Comment on above: Performed By: #### B MP #### [facility] [address] [place] [address] Dr. Bob Nelson EGFR-NON AF SYRIAN >60 Normal >=60 [facility] Comment on above: Performed By: #### B MP #### [facility] [address] [address] [address] Bob Nelson Glucose [Mass/Vol] 107 mg/dL Critically high 74-106 [facility] Comment on above: Performed By: #### B MP #### [facility] [address] [address] [address] Bob Nelson Potassium [Moles/Vol] 4.0 mmol/L Normal 3.5-5.1 [facility] Comment on above: Performed By: #### B MP #### [facility] [address] [place] [address] Dr. Bob Nelson Sodium [Moles/Vol] 138 mmol/L Normal 136-145 [facility] Comment on above: Performed By: #### B MP #### [facility] [address] [address] [address] Bob Nelson Urea nitrogen [Mass/Vol] 14.0 mg/dL Normal 7.0-18.0 [facility] Comment on above: Performed By: #### B MP #### [facility] [address] [address] [address] Bob Nelson Urea nitrogen/Creatinine [Mass ratio] 12.4 mg/mg Normal [facility] Comment on above: Performed By: #### B MP #### [facility] [address] [address] [address] Bob Nelson ELECTROENCEPHALOGRAMon 11-[address] [id number] ELECTROENCEPHALOGRAM REPORT PATIENT NAME: COREY ALONSO : 1995 MED REC NO: [id number] ROOM: ACCOUNT NO: [id number] ADMIT DATE: 11/28/2021 PROVIDER: Brian Granado DATE OF EE11/28/2021 REASON FOR STUDY: The patient is a 26 year old with history of memory lapses and possible seizures. SUMMARY: The background rhythm comprises of well-formed, low amplitude, symmetrically distributed alpha activity of 9 to 10 Hz while awake early in the recording. In the remainder of the recording, the patient became agitated and confused with a pattern of higher amplitude mixture of theta and delta activity of 5 to 6 Hz and 3 to 4 Hz for a short period of time without any epileptic activity. Cardiac rhythm was normal. There was no photic driving. Hyperventilation was unremarkable. INTERPRETATION: Normal EEG with no focal slowing or epileptiform activity. BRIAN GRANADO FLORECITA/[email or web address] Doc#: [id number] CC: Emeli Chi, Bracelet Former Normal [facility] MRI BRAIN WO CONTRASTon MRI BRAIN WO CONTRAST EXAMINATION: MRI OF THE BRAIN WITHOUT CONTRAST 11/28/2021 9:44 am TECHNIQUE: Multiplanar multisequence MRI of the brain was performed without the administration of intravenous contrast. COMPARISON: None HISTORY: ORDERING SYSTEM PROVIDED HISTORY: Partial symptomatic epilepsy with complex partial seizures, intractable, without status epilepticus ([facility]) TECHNOLOGIST PROVIDED HISTORY: epilepsy What is the sedation requirement?->None Initial evaluation. FINDINGS: INTRACRANIAL STRUCTURES/VENTRICLE S: There is no acute infarct. The ventricles and cisternal spaces are normal in size, shape, and configuration for the age of the patient. No areas of abnormal signal are identified in the brain parenchyma. There is no midline shift or mass effect. There are no areas of restricted diffusion. Motion artifact mildly degrades the images. There is no evidence for mesial temporal sclerosis. ORBITS: The visualized portion of the orbits demonstrate no acute abnormality. SINUSES: There is a mucous retention cyst or polyp in the left maxillary sinus. The remainder of the sinuses are clear. The mastoid air cells are clear. BONES/SOFT TISSUES: The bone marrow signal intensity appears normal. The soft tissues demonstrate no acute abnormality. IMPRESSION: Motion artifact mildly degrades the images. No acute brain parenchymal abnormality. Interpreted by: Anjali Lozoya MD Signed by: Anjali Lozoya MD 11/28/21 Final result Normal [facility] COREY ALONSO III ([id number]) 1995 Date Time Provider Department 11/23/21 WON HUERTA During your visit today, we recorded the following information about you: Won Huerta MD 11/23/2021 5:30 PM Signed Called to discuss results Remains azoospermic - suspected obstructive process Discussed next steps - TESE with IVF He will consider this and let us know All questions answered RTC prn Won Huerta MD, PhD Allergies As of Date: 11/23/2021 (No Known Allergies) Date Reviewed: 09/13/2021 Reviewed by: Domi Carrera MD - Fully Assessed Reason for Visit: Results [95] Prescriptions as of 11/23/2021 - OXcarbazepine (TRILEPTAL) 300 mg tablet Take 300 mg by mouth twice daily. - lamoTRIgine (LAMICTAL) 200 mg tablet Take 200 mg by mouth once daily. 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 Encounter Status:[facility] COREY ALONSO III ([id number]) 1995 Date Time Provider Department 11/22/21 DOMI CARRERA During your visit today, we recorded the following information about you: Gretchen Duran, RN 11/22/2021 4:51 PM Signed Pt asking for the results of semen testing from 11/15/21 I informed the patient these are Still in Process at this time Office would contact back with results and or they may be sent to their MyChart (he said his MyChart is acting up) and would prefer a call once they're back I did offer the [employer] customer service number, he said thanks but that he would find it himself I told him I'd let the office know he called Allergies As of Date: 11/22/2021 (No Known Allergies) Date Reviewed: 09/13/2021 Reviewed by: Domi Carrera MD - Fully Assessed Reason for Visit: Results [95] Prescriptions as of 01/04/2022 - OXcarbazepine (TRILEPTAL) 300 mg tablet Take 300 mg by mouth twice daily. - lamoTRIgine (LAMICTAL) 200 mg tablet Take 200 mg by mouth once daily. 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 [facility] SEMEN ANALYSIS COMPLon 11-15 Collection time (Jeanie) [Date/time] [address] [facility] Comment on above: Order Comment: Speci men Type: SEMINAL FLUID SPECIMENOrdering Facility: [facility] Address: [address] [place] [address] Result Comment: 1130 Performed By: #### 1 0579-1, SEMSTN, SEMENR ####EMELY ANDROLOGYCLIA [id number] [facility] [place] [address] Color (Jeanie) Malone Opalescent Normal [facility] Comment on above: Order Comment: Speci men Type: SEMINAL FLUID SPECIMENOrdering Facility: [facility] Address: [address] [place] [address] Performed By: #### 1 0579-1, SEMSTN, SEMENR ####EMELY ANDROLOGYCLIA [id number] [facility] [place] [address] DATE OF ANALYSIS 11.15.21 Normal [facility] Comment on above: Order Comment: Speci men Type: SEMINAL FLUID SPECIMENOrdering Facility: [facility] Address: [address] [place] [address] Performed By: #### 1 0579-1, SEMSTN, SEMENR ####EMELY ANDROLOGYCLIA [id number] [facility] [place] [address] pH (Jeanie) 6.0 Low >=7.[address] [facility] Comment on above: Order Comment: Speci men Type: SEMINAL FLUID SPECIMENOrdering Facility: [facility] Address: [address] [place] [address] Performed By: #### 1 0579-1, SEMSTN, SEMENR ####EMELY ANDROLOGYCLIA [id number] [facility] [place] [address] Round cells (Jeanie) [#/Vol] 14.00 M/mL High <1.[address] [facility] Comment on above: Order Comment: Speci men Type: SEMINAL FLUID SPECIMENOrdering Facility: [facility] Address: [address] [address] Performed By: #### 1 0579-1, SEMSTN, SEMENR ####EMELY ANDROLOGYCLIA [id number] [facility] [place] [address] SEMEN COMMENT 2 No sperm seen on unspun or spun wet preps. See special stain. Normal [facility] Comment on above: Order Comment: Speci men Type: SEMINAL FLUID SPECIMENOrdering Facility: [facility] Address: [address] [place] [address] Performed By: #### 1 0579-1, SEMSTN, SEMENR ####EMELY ANDROLOGYCLIA [id number] [facility] [place] [address] Sexual abstinence duration [Time] 4.0 Days Normal [facility] Comment on above: Order Comment: Speci men Type: SEMINAL FLUID SPECIMENOrdering Facility: [facility] Address: [address] [place] [address] Performed By: #### 1 0579-1, SEMSTN, SEMENR ####EMELY ANDROLOGYCLIA [id number] [facility] [place] [address] Specimen volume (Jeanie) 0.5 mL Low >=1.5 [facility] Comment on above: Order Comment: Speci men Type: SEMINAL FLUID SPECIMENOrdering Facility: [facility] Address: [address] Performed By: #### 1 0579-1, SEMSTN, SEMENR ####EMELY ANDROLOGYCLIA [id number] [facility] [place] [address] Spermatozoa (Jeanie) [#/Vol] 0.00 M/mL Low >=15.[address] [facility] Comment on above: Order Comment: Speci men Type: SEMINAL FLUID SPECIMENOrdering Facility: [facility] Address: [address] [place], [place] [address] Result Comment: 0.00 Performed By: #### 1 0579-1, SEMSTN, SEMENR ####EMELY ANDROLOGYCLIA [id number] [facility] [place] [address] Spermatozoa Normal/100 spermatozoa (Jeanie) Normal [facility] Comment on above: Order Comment: Speci men Type: SEMINAL FLUID SPECIMENOrdering Facility: [facility] Address: [address] [address] Result Comment: Coun t too low to perform accurate morphology. Performed By: #### 1 0579-1, SEMSTN, SEMENR ####EMELY ANDROLOGYCLIA [id number] [facility] [place] [address] TIME TO ANALYSIS 22 Minutes Normal 0-60 [facility] Comment on above: Order Comment: Speci men Type: SEMINAL FLUID SPECIMENOrdering Facility: [facility] Address: [address] [place] [address] Performed By: #### 1 0579-1, SEMSTN, SEMENR ####EMELY ANDROLOGYCLIA [id number] [facility] [place] [address] Viscosity Ql (Jeanie) Normal Normal [facility] [place] [facility] Comment on above: Order Comment: Speci men Type: SEMINAL FLUID SPECIMENOrdering Facility: [facility] Address: [address] [address] Performed By: #### 1 0579-1, SEMSTN, SEMENR ####EMELY ANDROLOGYCLIA [id number] [facility] [place] [address] SPECIAL STAIN SEMENon 2021 NFPICS STAIN No spermatozoa seen on NFPIC stain. Normal [facility] Comment on above: Order Comment: Speci men Type: SEMINAL FLUID SPECIMENOrdering Facility: [facility] Address: [address] Performed By: #### 1 0579-1, SEMSTN, SEMENR ####EMELY ANDROLOGYCLIA [id number] [facility] [place] [address] WBC # Smnon 11-15-2021 WBC (Jeanie) [#/Vol] 0.0 M/mL Normal <1.0 [facility] Comment on above: Order Comment: Speci men Type: SEMINAL FLUID SPECIMENOrdering Facility: [facility] Address: [address] [place] [address] Performed By: #### 1 0579-1, SEMSTN, SEMENR ####EMELY ANDROLOGYCLIA [id number] [place] [address] ANES POSTPROC EVALon 022 ANES POSTPROC EVAL HNO ID: [id number] Author: Tung Macias MD Service: Anesthesiology Author Type: Anesthesiologist Type: Anesthesia Postprocedure Evaluation Filed: 09/01/2021 6:31 AM Note Text: POST ANESTHESIA EVALUATION NOTE : 1995 Procedure Summary Date: 08/31/21 Room / Location: [address] / [facility] Anesthesia Start: 1303 Anesthesia Stop: 1358 Procedure: CYSTOURETHROSCOPY W/ INCISION OF EJACULATORY DUCTS (Right Urethra) 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 PACU/ICU Patient Condition: stable. Anticipated Disposition: phase 2 then home. Neurological Status: aware and responsive. Pulmonary Status: breathing comfortably on room air Airway Control: returned to baseline unsupported. Cardiovascular Status: stable. Pain Management: clinically adequate Postoperative Hydration: acceptable. Intraoperative Events: no significant anesthesia events Recommendation: continue current plan of care and further care per PACU/ICU/floor team. Anesthesia Observations No Documentation SIGNATURE: Tung Macias MD PATIENT NAME: Corey Alonso III DATE: September 01, 2021 TIME: 6:31 AM CSN: [id number] [facility] ANES PRE-OPon 08-31-2021 ANES PRE-OP HNO ID: [id number] Author: Tung Macias MD Service: Anesthesiology Author Type: Anesthesiologist Type: Anesthesia Preprocedure Evaluation Filed: 08/31/2021 12:08 PM Note Text: ANESTHESIOLOGY DAY OF SURGERY NOTE : 1995 Procedure Information Date/Time: 08/31/21 1215 Procedure: CYSTOURETHROSCOPY W/ INCISION OF EJACULATORY DUCTS (Right Urethra) Location: [facility] / [facility] Surgeons: Domi Carrera MD Estimated body mass index is 24.78 kg/m? as calculated from the following: Height as of 08/03/21: 172.7 cm (5' 8 ). Weight as of 08/03/21: 73.9 kg (163 lb). Most recent hematocrit and potassium results: No results found for this basename: HCT,HEMATOCRIT,K,POT ASSIUM Relevant Problems NEURO-PSYCH (+) Cryptogenic localization-related epilepsy (HCC) I - PHYSICAL EVALUATION AIRWAY Patient intubated: No. Tracheostomy tube not present Mallampati: I. TM distance: >3 FB. Neck ROM: full ROM without neurological symptoms. Mouth opening: adequate. Short neck: no. Thick neck: no DENTAL Dental findings: teeth intact. Additional exam findings: yes. CARDIOVASCULAR Normal cardiovascular observations. Rhythm: regular Rate: normal PULMONARY Normal pulmonary observations. Breath sounds clear to auscultation. II - ANESTHESIA PLAN ASA Score: 2 Anesthetic Plan: general Airway type: LMA NPO Status: adequate Monitoring plan: Standard ASA. Postoperative analgesic plan: multimodal analgesia. Anesthetic Risks, Benefits, Alternatives, Personnel Discussed. Consent obtained from: patient.Patient / Surrogate agrees to blood products: blood products not planned Significant changes in the patient condition since the History and Physical, not otherwise documented in primary service progress note: no. Potential Anesthesia issues that may suggest increased risk of complications or contraindication to planned procedure: none. Vitals Value Taken Time BP 144/83 08/31/21 1116 Pulse 95 08/31/21 1116 Resp 16 08/31/21 1116 Temp 36.2 ?C (97.2 ?F) 08/31/21 1116 SpO2 100 % 08/31/21 1116 Facility-Administere d Medications as of 08/31/2021 Medication Dose Route Frequency - lidocaine 10 mg/mL (1 %) 1-2 mg injection (XYLOCAINE) 0.1-0.2 mL INTRADERMAL PRN - lactated ringers iv infusion 5-30 mL/hr INTRAVENOUS CONTINUOUS - ceFAZolin iv piggyback 2 g in D5W (iso-osmotic) 100 mL (ANCEF) 2 g INTRAVENOUS Pre-Op Once - [COMPLETED] acetaminophen 1,000 mg tab(s) (TYLENOL) 1,000 mg ORAL Pre-Op Once - [COMPLETED] promethazine 12.5 mg tab(s) (PHENERGAN) 12.5 mg ORAL Pre-Op Once - lactated ringers iv infusion 30 mL/hr INTRAVENOUS CONTINUOUS Outpatient Medications as of 08/31/2021 Medication Sig - OXcarbazepine (TRILEPTAL) 300 mg tablet Take 300 mg by mouth twice daily. - lamoTRIgine (LAMICTAL) 200 mg tablet Take 200 mg by mouth once daily. I have interviewed and examined the patient. I have reviewed the medical record and/or the pre-anesthesia evaluation, pertinent labs, and test results. This contains updated information obtained within 48 hours of Surgery/Procedure. SIGNATURE: Tung Macias MD PATIENT NAME: Corey Alonso III DATE: August 31, 2021 TIME: 12:08 PM CSN: [id number] [facility] OPERATIVE NOon 08-31-2021 OPERATIVE NO HNO ID: [id number] Author: Domi Carrera MD Service: Urology Author Type: Physician Type: Operative Report Filed: 08/31/2021 3:22 PM Note Text: [facility] UROLOGY OPERATIVE REPORT Patient Name: Corey Alonso III Patient Log ID: [id number] Surgery Date: 08/31/2021 Incision/Procedure Start Time: 1:17 PM Incision Close/Procedure End Time: 1:47 PM Surgeon(s) and Microbiology Coordinator(s): Surgeon(s) and Role: * Domi Carrera MD - Primary * Vitaly Jean Baptiste MD - Resident - Assisting * Won Huerta MD - Fellow Preoperative Diagnosis 1. 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 Suspected right ejaculatory duct obstruction Postoperative Diagnosis 1. 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 Suspected right ejaculatory duct obstruction 3. Stricture of fossa navicularis Procedure 1. Dilation of urethra 2. Cystoscopy 3. Transurethral incision of ejaculatory duct 4. 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 He was cousneled on management options and elected to proceed with transurethral resection of the ejaculatory duct. The risks, benefits, and alternatives were explained to the patient, who agreed to proceed with surgical management. Operative Findings -Small prostate with high bladder neck - incised at 6 o'clock -Orthotopic right ureteral orifice, no visible left ureteral orifice consistent with absent left kidney -Diminutive verumontanum with clearly visible sphincter distally -TURED performed on the right - no definitive seminal vesicle identified Operative Procedure The patient was brought to the operating room by the primary team where a huddle involving the patient, surgeons, anesthesia, and operative staff correctly identified the patient, procedure to be performed, laterality, allergies, antibiotics, and equipment to be used. A weight appropriate dose of prophylactic antibiotics (ancef) was administered intravenously prior to the procedure and sequential compression devices were applied to the lower extremities and activated prior to induction of anesthesia. General anesthesia was induced. The patient was placed in the dorsal lithotomy position. All pressure points were padded per protocol and the operative area was prepped and draped in the standard sterile fashion. The 24Fr rigid resectoscope with 26Fr continuous flow sheath was assembled but could not be passed into the urethra due to a stricture at the meatus and fossa navicularis. The stricture was dilated using a series of Nadine Sounds to 28Fr. The scope then passed easily into the urethra and into the bladder. The right ureteral orifice was clearly visible in the orthotopic position. The left ureteral orifice could not be identified, consistent with the lack of a left kidney. The scope was then withdrawn and the prostatic fossa inspected. The bladder neck was noted to be quite high. The verumontanum was quite diminutive in size , and the sphincter was clearly visible. The prostate was small in size. The scope was advanced into the bladder and the visual obturator was exchanged for the monopolar working element. The bladder neck was superficially resected at 6 o'clock to allow for better visualization and flow. Using cutting current, a transurethral resection of the right lateral aspect of the verumontanum at the location of the ejaculatory duct. This was carried down to the level of the surgical capsule. No definitive ejaculatory duct or seminal vesicle could be identified. Hemostasis was obtained. A solo wire was then inserted and used to gently probe the resection bed for a lumen. Given the depth of resection, the decision was made to terminate the procedure. An 18Fr modoc tip catheter was inserted over a solo wire and used to drain the bladder. 10cc was added to the balloon. The patient tolerated the procedure well and was taken to the recovery area in stable condition. Estimated Blood Loss 5mL Specimens * No specimens in log * Implantable Devices None Drains 1. 18Fr modoc tip Leal (10cc in balloon) Complications None Accidental perforations or lacerations None The primary surgeon performed the procedure with assistance from the resident Dictated by Won Huerta MD, PhD on behalf of Domi Carrera MD [facility] 08-28-2021 [facility] Telephone (URON) COREY ALONSO III ([id number]) 1995 Date Time Provider Department 08/28/21 WON HUERTA During your visit today, we recorded the following information about you: Won Huerta MD 08/28/2021 6:26 PM Signed Called to respond to patient questions after surgery Discussed expected operative course and postoperative course Will need to be off work for a few days postop - will send message about this All questions answered Won Huerta MD, PhD Allergies As of Date: 08/28/2021 (No Known Allergies) Date Reviewed: 08/23/2021 Reviewed by: Won Huerta MD - Fully Assessed Reason for Visit: Returning Patient's Call [[phone]] Prescriptions as of 08/28/2021 - OXcarbazepine (TRILEPTAL) 300 mg tablet Take 300 mg by mouth twice daily. - lamoTRIgine (LAMICTAL) 200 mg tablet Take 200 mg by mouth once daily. 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 Self Check COVIDon 2 SARS-CoV-2 (COVID-19) RNA MAHESH+probe Ql (Unsp spec) UPPER RESPIRATORY TRACT SWAB Normal [facility] Comment on above: Performed By: #### H CCOVD #### [place] [id number] SARS-CoV-2 (COVID-19) RNA MAHESH+probe Ql (Unsp spec) Negative for COVID19 (SARS CoV2) by RT-PCR or equivalent method. Normal Negative for COVID19 (SARS CoV2) by RT-PCR or equivalent method. [facility] Comment on above: Result Comment: This test was developed and its performance characteristics determined by [facility] [place]. This test has been authorized by FDA under an Emergency Use Authorization (EUA). This test has been validated in accordance with the FDA's Guidance Document Policy for Diagnostics Testing in Laboratories Certified to Perform High Complexity Testing under CLIA prior to Emergency use Authorization for Coronavirus Disease 2019 during the Public Health Emergency issued on September 26, 2019. Test performed by [facility], [facility] [place], [address], [place] [address]. Performed By: #### H CCOVD #### [address] [address] Urine Cultureon 08-28-2021 Bacteria identified Cx Nom (U) Sp. Request/Comment: - Specimen received in preservative Culture Result - <10,000 CFU/ml mixed microbiota Insignificant colony count. No further workup. Normal [facility] Comment on above: Performed By: #### U RCUL ####[facility] [id number] [place], [place] [id number] HISTORY PHYSICALon 2 HISTORY PHYSICAL HNO ID: [id number] Author: Gisela Lawton APRN.PUMPER GAUGER APPRENTICE Service: ? Author Type: Nurse Practitioner Type: HANDP Filed: 08/03/2021 10:41 AM Note Text: PREANESTHESIA CONSULT CLINIC TELEHEALTH VISIT Patient has been identified by name and date of : Yes This is a virtual visit using Kiyon video visit. It require patient-provider interaction for the medical decision making as documented below. Reason for contact: PACC visit Accompanied by: Self Scheduled Surgery: CYSTOURETHROSCOPY W/ INCISION OF EJACULATORY DUCTS right Subjective CHIEF COMPLAINT: Patient presents with: Pre-Op Visit HPI: This is a 25 year old male who presents with absent L vas, absent L kidney, azoopsermia. Patient is planning for above surgery. ACTIVE PROBLEM LIST Cryptogenic Localization-Related Epilepsy (Hcc) PAST MEDICAL HISTORY Diagnosis Date - Seizures (HCC) PAST SURGICAL HISTORY Procedure Laterality Date - PAST SURGICAL HISTORY OF knee cyst removal No family history on file. Social History Tobacco Use - Smoking status: Never Smoker - Smokeless tobacco: Never Used Substance Use Topics - Alcohol use: Not Currently - Drug use: Not on file ALLERGIES Not on File MEDICATIONS: Current Outpatient Medications Medication Sig - OXcarbazepine (TRILEPTAL) 300 mg tablet Take 300 mg by mouth twice daily. - lamoTRIgine (LAMICTAL) 200 mg tablet Take 200 mg by mouth once daily. No current facility-administere d medications for this visit. COVID VACCINATION STATUS: Not vaccinated REVIEW OF SYSTEMS: Pain Assessment: General: No weight loss, malaise or fevers. Neuro: Postive for Seizures Last one about a week ago Previous one 04/2021 follows with Neurology last appointment 05/2021 Respiratory: No history of current cough or dyspnea, or pneumonia in the past 6 weeks. No history of respiratory/pulmonar y symptoms or problems. Cardiovascular: No history of HTN requiring medication, no history of angina, CHF, NM, cardiac surgery or stents. Denies rest pain, gangrene or revascularization/am putation for PVD. No history of cardiovascular symptoms or problems. GI: No history of GI symptoms or problems. No history of esophageal varices, recent ascites, or ETOH greater than 2 drinks per day. : No history of dysuria, frequency or incontinence,, stones or chronic kidney disease, No difficulty urinating, nocturia > 1 time per night or hematuria + Born with one kidney - right kidney Endocrine: No history of diabetes. Has not taken steroids within the past 30 days. No history of endocrinological symptoms or problems. Hematology: No history of bleeding or clotting disorder. Pt is not taking anti-coagulation or platelet medications. No history of hematological symptoms or problems. Oncology: No history of CA metastasis, chemo within 30 days, or radiotherapy within 90 days. Has not lost 10% of body wt in 6 months. No history of oncological symptoms or problems. Psych: No history of psychiatric symptoms or problems. Musculoskeletal: Negative for joint pain or swelling, back pain or muscle pain. Skin: Negative for lesions, rash and itching. Objective PHYSICAL EXAM: Resp 16 Ht 5' 8 (1.73m) Wt 163 lb (73.9kg) BMI 24.79 kg/(m2). VIDEO EXAM: (if completed, performed via video enabled technology) GENERAL: alert and appropriate, in no distress, well-hydrated, well nourished and happy, smiling, interactive SKIN: no rash noted HEAD: normocephalic, no abnormality or lesion noted EYES: no injection and visual acuity is grossly normal OROPHARYNX: moist mucus membranes RESPIRATORY: breathing non-labored CHEST: equal chest rise with normal respiratory effort HEART: could not palpate pulse denies any recent chest pain, palpitations ABDOMEN: soft and non-tender NEUROLOGIC: no obvious deficit Diagnostic tests reviewed for today's visit: No results found for: HBA1C No new labs or tests Impression/Recommend ations ASSESSMENT: Cryptogenic localization-related epilepsy (HCC) Assessment: on trileptal and Lamictal States last seizure was a week ago - states stress induced Previous was 04/2021 METS: Climb a flight of stairs or walk up a hill (5.50 METs) Patient denies any chest pain or undue shortness of breath with the above physical activity. ASA Class: 2 ANESTHESIA FINDINGS: Intubation History: No history of difficult intubation Significant Anesthesia Considerations: None Airway Exam: General: Normal appearance Mallampati Score is CLASS I ULBT: Class I - Lower incisors can bite the upper lip above the gilbert line Neck: Normal appearance and function, Distance from hyoid to mentum during neck extension is at least 3 finger breaths Mouth: Normal tongue size and Mouth opening greater than 2 finger breaths Dentition: Intact Airway History: No abnormal airway history STOP BANG Score: Criteria: Male gender Score = 1 PLAN: This patient is optimall (more content not included)... Normal 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 Still needs to get CF testing. 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 Also discussed sperm retrieval with IVF directly. Will need to find out if TURED covered by insurance. Domi Carrera MD I spent a total of 50 minutes on the date of the service which included preparing to see the patient, [id number] patient care and completing clinical documentation. 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 - lamoTRIgine (LAMICTAL) 200 mg tablet Take 200 mg by mouth once daily. Problem List As Of Date: 05/15/2021 (None) Encounter Status:Closed by DOMI CARRERA on 05/15/[address] [facility] Cystic Fibrosis Path Tito 1 CF Path Shanika Report See Below [facility] Comment on above: Result Comment: (NOT E) CYSTIC FIBROSIS PATHOGENIC VARIANT ANALYSIS RESULT: Negative INTERPRETATION: This individual is negative for all 142 pathogenic variants analyzed in the CFTR gene. A negative test result reduces the possibility that this individual has cystic fibrosis (CF) and also reduces the CF carrier risk. This test does not detect all variants in the CFTR gene and it is possible that this individual could have a CFTR variant not included in this test.Residual CF carrier risk is based on ethnicity and personal/family history (see table below). For questions about this result, genetic consultation and clinical correlation are recommended. Residual Cystic Fibrosis Carrier Risk after Negative Carrier Screen Residual risk for unlisted ethnicities is unknown. Ethnicity Carrier Detection Residual carrier rate rate (%) risk (with negative family history) 1 in 61 74 1 in 231 [employer] 1 in 24 97 1 in 768 1 in 94 49 1 in 183 1 in 25 91 1 in 267 1 in 58 77 1 in 248 LIMITATIONS: DNA studies do not provide a definitive genetic risk in all individuals. While results of this testing are highly accurate, infrequent errors may be due to unusual DNA sequences in the DNA analyzed. Rare polymorphisms or large deletions may affect primer binding resulting in a false negative result. A negative carrier screening panel test result does not remove all risk of having a child with one of these disorders because rare variants may influence the risk of developing disease. METHODOLOGY: Purified genomic DNA is subjected to polymerase chain reaction-based amplification. The CFTR gene is interrogated for known clinically relevant variants(see list below). Primer extension products are analyzed using matrix-assisted laser desorption/ionization mass spectrometry, and specific genotypes assigned. The reference genome used is GRCh38/hg38. VARIANTS ANALYZED: Cystic fibrosis (CFTR, RefSeq# [id number]) Legacy names of 142 pathogenic variants: 1078delT,1154insTC, 1213delT, 1248+1G>A, 1259insA, 1341+1G>A, 8583mtp9, 1525-1G>A, 1548delG, 1677delTA, 1717-1G>A, 1717-8G>A, 1811+1.6kbA>G, 1812-1G>A, 1898+1G>A, 1898+3A>G, 1898+5G>A, 1898+5G>T, 3883mwk5>A, 2143delT, 2183AAtoG, 2184delA, 2184insA, 2307insA, 2347delG, 2585delT, 2622+1G>A, 2711delT, 2789+5G>A, 394delTT, 3007delG, 3120+1G>A, 3120G>A, 3121-1G>A, 1826toy4, 3272-26A>G, 3659delC, 3791delC, 3849+10KbC>T, 3876delA, 3905insT, 405+1G>A, 406-1G>A, 4005+1G>A, 4016insT, 4209TGTT>AA, 4382delA, 457TAT>G, 574delA, 621+1G>T, 663delT, 711+1G>T, 711+3A>G, 711+5G>A, 712-1G>T, 816xcc81, 935delA, A455E, A559T, CFTRdele2,3, LEKPevxm94,23, D110H, K4794S, cwzeuO611, ictozJ006, L1027G, E585X, E60X, E822X, E831X, E92K, E92X, F508C, W8639U, D7758L, G178R, G330X, G542X, G551D, G85E, G970R, H199Y, I336K, K710X, F4420U, Y3295R, L206W, L467P, L732X, L927P, O1291M, M1V, J4481L, P205S, P67L, C3285W, Q220X, Q39X, Q493X, Q525X, Q552X, Q890X, Q98X, W0386U, Y8121P, H3625Q, Q1439V, R117C, R117H, R334W, R347H, R347P, R352Q, R553X, R560K, R560T, R709X, R75X, R764X, R851X, W6341T, M2415G, J6304P, S341P, S466X, S489X, S492F, S549N, O404U-FYO, Q989F-SXN, S945L, T338I, V520F, Y5923G, H4990Y (3611), B6886M (3612), E8055S, W401X, W846X, Q5077B (C>A), I7251P (C>G), Y122X (conditionally reported variants: Poly T, I506V, I507V). This test was developed and its performance characteristics determined by [facility]'s [facility] [place] ([facility]). It has not been cleared or approved by the FDA. [facility] is regulated under CLIA as qualified to perform high- complexity testing. This test is used for clinical purposes. It should not be regarded as investigational or for research. REFERENCES: 1. Carrier screening for genetic conditions. Committee Opinion No. 691. [employer]. Obstet Gynecol. 2017;129:e41-55. 2. The Clinical and Functional Translation of CFTR (CFTR2); available at http://[email or web address].org. 3. Iftikhar EA, Darlyn EM, Kassandra DORANTES, et al. CFTR mutation distribution among [place] and individuals: Evaluation in cystic fibrosis patient and carrier screening populations. Caroline Med. 2004;6(5):392-99. 4. For more information about CF consult [email or web address].org. As reviewed by Tyrese Wilks, PhD, [facility] Endtz Teston 01-23-2021 Endtz Test 6.4 M/mL High 0.0-0.[address] [facility] Rout Analysis Semenon 2020 Abstinence Time 7 Days Normal [facility] Collection Time [address] [facility] Comment on above: Result Comment: 1144 Corrected on 01/24 AT 1233: Previously reported as 1141 Concentration 0.00 M/mL Low >[address] [facility] Comment on above: Result Comment: 0.00 MOSIT (ORP) Account Credited Normal <1.36 [facility] Semen Age 20 Min Normal 0-[address] [facility] Comment on above: Result Comment: OLIVER MARIAH Semen Color OPAQUE Normal [facility] Semen Comment 2 NO SPERM SEEN ON UNSPUN AND SPUN SAMPLES. MODERATE DEBRIS SEEN.,MODERATE ROUND CELL AGGLUTINATION SEEN, SEE SPECIAL STAIN RESULTS. Normal [facility] Comment on above: Result Comment: Arpita ected on 01/24 AT 1239: Previously reported as NO SPEM SEEN ON UNSPUN AND SPUN SAMPLES. MODERATE DEBRIS SEEN. MODERATE ROUND CELL AGGLUTINATION SEEN. SEE SPECIAL STAIN RESULTS. Semen pH 6.0 Low >7.[address] [facility] Semen Viscosity NORMAL Normal [facility] Semen Volume 0.30 mL Low >1.[address] [facility] Slide No. Semen Rout [id number] Normal [facility] Undiff Round Cells 7.87 M/mL High <1.0 [facility] [place] [facility] Semen Special Stainon 2020 Sperm Stain 1 NO SPERMATOZOA SEEN ON NFPIC STAIN. Normal [facility] CNOVon 01-20-2021 CNOV Office Visit (UROLAV) COREY ALONSO III ([id number]) 1995 M Date Time Provider Department 01/20/21 1:45 PM DOMI CARRERA UROBETHANY During your visit today, we recorded the following information about you: Pulse Blood pressure Weight Height 95/minute 117/65 73.9 kg 1.727 m Domi Carrera MD 01/20/2021 2:15 PM Signed Referred by: Emeli Chi, PUMPER GAUGER APPRENTICE [address] [facility] [id number] 01/20/2021 CC: failure to conceive. 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 He has no ejaculate. Has had evaluation and told obstructed on R and absent on L. 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 He had some testicular pain and had US. He has no other children with current partner. No hot tubs. No exposure to gonadotoxins. He has previous surgeries - ?office cysto. Has used Testosterone in the past (illicit or prescribed) - he is unsure when he stopped it, says a long time ago. He says 2 months ago.. Underwent puberty at the same time as peers. No febrile illnesses within 3-6 months of his semen analysis. MRI: FINDINGS: The testicles are homogeneous in signal intensity bilaterally. ?No MR evidence of an intratesticular mass. ?Spermatic cord is within normal limits as well as the epididymis by MRI evaluation. No penile abnormality is identified. ?The urinary bladder is unremarkable. ? Prostate gland is within normal limits given the large xqvjt-vc-juoj evaluation. ?The left seminal vesicle is not identified. ?The right seminal vesicle is dilated and filled with proteinaceous/hemorr hagic contents. ?Most likely the adjacent tubular structure represents the vas deferens but large gdpgl-xg-inim evaluation is suboptimal to clarify the anatomy. Localizer images positively document the right kidney, however the left kidney is not identified in the fwmym-xj-xeud. IMPRESSION: * ?Dilated, hemorrhagic/proteina ceous filled, right seminal vesicle and possible the associated vas deferens. ? * ?Inconspicuous left seminal vesicle and left kidney. Previous fertility treatments: Medications: none Fertility history: Prior children: none Prior Semen analyses: none Female factor eval: (she is present) Age 24 yrs G0P) Irregular menses. 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 Prior fertility treatments: none Hormonal profile: No results found for: TESTOST No results found for: TESTFREE No results found for: FSH Genitourinary history: Scrotal pain: yes, infrequent Hx Mumps orchitis, trauma, or undescended testis: none Hx stone disease: none Hx UTI/prostatitis/epid idimitis/STI: none ROS: Sexual frequency/libido: intact, no ED Urinary sx: none Hematuria: none Exposure to Medications known to cause infertility: No Chemotherapy: No Radiation: No Antihypertensives Nifedipine No Spirinolactone No Antiinflammatories Colchicine No Antibiotics Sulfasalazine No Nitrofurantoin No Tetracycline No Co-trimazole No Chloraquine No Minocycline No Anti-depressants Paroxetine No Fluoxetine No 5ARI: No Antiandrogens: Ketoconazole: No H2 blockers No GnRH analogues No Opiates: No Anti-psychotics Pastoria No Chlorpromazine No Androgens No Alpha-blockers No PMH None PSH Cystoscopy No current outpatient medications on file. No current facility-administere d medications for this visit. Supplements: none Allergies: Patient has no allergy information on record. Family Hx: Denies history of infertility in family members. Denies history of cystic fibrosis in family. 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 No headaches. Sense of smell intact Neck: No masses or pain Chest: No SOB or cough. No recurrent pneumonia, bronchitis, sinustitis CVS: No chest pains or palpatations. No hx of cardiovascular disease. GI: No nausea, vomiting or abdominal pain Neurologic: No weakness or sensory changes : see above Musculoskeletal: No muscle weakness, chronic back pain Heme/lymph: No easy bleeding/brusing Physical Exam: Constitutional: Well masculinized, well nourished male Psychiatric: euthymic, NAD Neurologic: AANDOx3. Cranial Eyes: EOMI, peripheral vision intact ENT: supple, no masses, adenopathy or thyromegaly CV: Hemodynamically stable Resp: normal effort, no SOB Abdomen: soft, NT, no mass, no hepatosplenomegaly Musculoskeletal: No gynecomastia. No deformities, edema, clubbing Skin: Skin color, texture, turgor normal. No rashes or lesions Heme/lymph: No bruises or lymphadenopathy : Inguinal: No lesions, adenopathy, or hernias (more content not included)... Normal [facility] Estradiol-17Bon 01-20-2021 Estradiol-17B <25 Normal <[address] [facility] Comment on above: Result Comment: This test is not suitable for patients receiving treatment with the drug Fulvestrant (Faslodex). The drug causes an interference leading to falsely elevated estradiol results. Performed By: #### T ESTO, E2, FSH, LH ####[address] [phone] FSHon 01-20-2021 FSH 7.4 mU/mL Normal 1.5-12.[address] [facility] Comment on above: Performed By: #### T ESTO, E2, FSH, LH ####[place] [address] [address], [place] [phone] on 01-20-2021 LH 4.8 mU/mL Normal 1.8-10.[address] [facility] Comment on above: Performed By: #### T ESTO, E2, FSH, LH ####[address] [phone] Retro Urin Sperm Cnton 01-20 Motility (Ur) 0 % Normal [facility] Retro Comment (Ur) 104 ML OF URINE COLLECTED IN 9 ML OF HTF. SAMPLE SPUN DOWN AND RECONSITUTED. FINAL RECONSTITUTED URINE VOLUME 2.5ML. Normal [facility] Sperm Count (Ur) 0.0 M/mL Normal [facility] Testosteroneon 01-20-2021 Testosterone [Mass/Vol] 275 ng/dL Normal 193-824 [facility] Comment on above: Result Comment: A te stosterone level in the 193-320 ng/dL range with associated clinical symptoms is considered low and may indicate hypogonadism (from [facility] 2010 363:123-135). Results >320 ng/dL are considered normal. Performed By: #### T ESTO, E2, FSH, LH ####[facility] [address] [place], [place] [phone] CARDIAC SHARON ADMITon 017 CKMB 1.27 ng/mL Normal <=2.37 [facility] Comment on above: Performed By: #### B MP, LIPA, LIVER, CMADM ####[facility] Wvmpgpctfi[address] Creatine kinase (CK) 79 U/L Normal 55-170 [facility] Comment on above: Performed By: #### B MP, LIPA, LIVER, CMADM ####[facility] [address] [place] [phone] [place] INR Coag RelTime (Bld) SEE BELOW Normal Th e [facility] Comment on above: Result Comment: <0.0 34 ng/ml NEGATIVE 0.034-0.119 INDETERMINATE 0.120 AMI CUT OFF Performed By: #### B MP, LIPA, LIVER, CMADM ####[facility] [address] [place], [place] [address]Mdrigz [place] JOSH 36.0 ng/mL Normal <=121.0 [facility] Comment on above: Performed By: #### B MP, LIPA, LIVER, CMADM ####[facility] [address] [place] [phone] TROP <0.012 Normal <=0.034 [facility] Comment on above: Performed By: #### B MP, LIPA, LIVER, CMADM ####[facility] Ygivkztyqe08[address] [place] [phone] CBC AUTO DIFFon 05-03-2017 Basophils Auto #/vol (Bld) 0.0 103/ul Normal 0.0-0.1 [facility] Comment on above: Performed By: #### C BC ####[facility] Tczmblcbtu0080 [address] [place] Basophils/100 WBC Auto (Bld) 0.7 % Normal 0.2-2.0 [facility] Comment on above: Performed By: #### C BC ####[facility] [address] [place] [address] [place] Eosinophils 0.1 103/ul Normal 0.0-0.7 [facility] Comment on above: Performed By: #### C BC ####[facility] [address] [place] [address] [place] Eosinophils/100 leukocytes 1.1 % Normal 0.9-7.0 [facility] Comment on above: Performed By: #### C BC ####[facility] [address] [place] [address] [place] Erythrocyte distribution width Auto Ratio (RBC) 12.8 % Normal 11.0-15.0 [facility] Comment on above: Performed By: #### C BC ####[facility] Yycdftjtka01[address] [place] Erythrocytes (RBC) 4.96 106/ul Normal 4.70-6.10 [facility] Comment on above: Performed By: #### C BC ####[facility] Imgrgkvldz[address] [place] [phone] Hematocrit (HCT) 40.6 % Critically low 42.0-54.0 [facility] Comment on above: Performed By: #### C BC ####[facility] [address]pdeasgdvi6[address] [place] [phone] Hemoglobin mass conc (Bld) 14.1 g/dL Normal 14.0-18.0 [facility] Comment on above: Performed By: #### C BC ####[facility] Ybsxwiijyv4[address] [place] IG # 0.03 10e3/ul Normal 0.00-0.03 [facility] Comment on above: Performed By: #### C BC ####[facility] Pgfsmxvogw4604 [address] [place] IG % 0.5 % Normal 0.0-0.5 [facility] Comment on above: Performed By: #### C BC ####[facility] [address] [place] [address] [place] Lymphocytes 1.7 103/ul Normal 1.2-3.8 [facility] Comment on above: Performed By: #### C BC ####[facility] [address] [place] [address] [place] Lymphocytes/100 leukocytes 30.6 % Normal 20.5-60.0 [facility] Comment on above: Performed By: #### C BC ####[facility] [address] [place] [address] [place] MANUAL DIFF REQ NO Normal [facility] Comment on above: Performed By: #### C BC ####[facility] [address] [place] [address] [place] MCH 28.4 pg Normal 25.9-34.0 [facility] Comment on above: Performed By: #### C BC ####[facility] [address] [place] [address] [place] MCHC mass conc (RBC) 34.7 g/dL Normal 29.9-35.2 [facility] Comment on above: Performed By: #### C BC ####[facility] [address] [place] [address] [place] MCV 81.9 fL Normal 80.0-94.0 [facility] Comment on above: Performed By: #### C BC ####[facility] [address] [place], [place] [phone] [place] Monocytes 0.3 103/ul Normal 0.3-0.8 [facility] Comment on above: Performed By: #### C BC ####[facility] Lcwmlngust5[address] [place] [phone] Monocytes/100 leukocytes 5.7 % Normal 1.7-12.0 [facility] Comment on above: Performed By: #### C BC ####[facility] Ezjtwh[address] [place], [place] [phone] [place] Neutrophils 3.5 103/ul Normal 1.4-6.5 [facility] Comment on above: Performed By: #### C BC ####[facility] [address] [place], [place] [phone] [place] Neutrophils/100 WBC Auto (Bld) 61.4 % Normal 43.0-75.0 [facility] Comment on above: Performed By: #### C BC ####[facility] [address] [place], [place] [phone] [place] Platelet mean volume (PMV) 9.3 fL Critically low 9.5-13.5 [facility] Comment on above: Performed By: #### C BC ####[facility] [address] [place] [address] [place] Platelets 221 103/ul Normal 150-450 [facility] Comment on above: Performed By: #### C BC ####[facility] Pvgwjwl[address] [place], [place] [phone] WBC (Leukocytes) 5.7 103/ul Normal 4.0-11.0 [facility] Comment on above: Performed By: #### C BC ####[facility] [address] [place], [place] [phone] Musa LIPASEon 05-03-2017 Lipase 55.0 U/L Normal 23.0-300.0 [facility] Comment on above: Performed By: #### B MP, LIPA, LIVER, CMADM ####[facility] Ezejhnrmup[address]754 [address] [place] LIVER PROFILEon 05-03-2017 Alanine aminotransferase (ALT) 35 U/L Normal 21-72 [facility] Comment on above: Performed By: #### B MP, LIPA, LIVER, CMADM ####[facility] Vpivdpdnls[address]59 [address] [place] Albumin 4.4 g/dL Normal 3.5-5.0 [facility] Comment on above: Performed By: #### B MP, LIPA, LIVER, CMADM ####[facility] Mqhmmgspid4678 [address] [place] Albumin/Globulin Ratio 1.4 {ratio} Normal T [facility] Comment on above: Performed By: #### B MP, LIPA, LIVER, CMADM ####[facility] Bibdrfxsea3455 [address] [place] Alkaline phosphatase (ALP) 74 U/L Normal 38-126 [facility] Comment on above: Performed By: #### B MP, LIPA, LIVER, CMADM ####[facility] Mzxbjhuusy22[address] [place] Aspartate aminotransferase (AST) 21 U/L Normal 17-59 [facility] Comment on above: Performed By: #### B MP, LIPA, LIVER, CMADM ####[facility] Ukkhbzujeg2732 [address] [place] BILI, CONJUGATED 0.0 mg/dL Normal 0.0-0.3 [facility] Comment on above: Performed By: #### B MP, LIPA, LIVER, CMADM ####[facility] Tipunadela4695 [address] [place] Bilirubin Ql (U) 0.8 mg/dL Normal 0.2-1.3 [facility] Comment on above: Performed By: #### B MP, LIPA, LIVER, CMADM ####[facility] Sxpxlrvgzh[address] [place] Globulin 3.1 g/dL Normal [facility] Comment on above: Performed By: #### B MP, LIPA, LIVER, CMADM ####[facility] Nsp[address]wtbfut[address] [place] [phone] Protein 7.5 g/dL Normal 6.1-8.2 [facility] Comment on above: Performed By: #### B MP, LIPA, LIVER, CMADM ####[facility] Rihnedhvpk7435 [address] [place] PROF CHEM 8 (BAS METB)on Anion gap 12.7 mmol/L Normal [facility] Comment on above: Performed By: #### B MP, LIPA, LIVER, CMADM ####[facility] Iecwxehver[address] [place] BUN/Creatinine Ratio 14.4 mg/mg Normal [facility] Comment on above: Performed By: #### B MP, LIPA, LIVER, CMADM ####[facility] Mflmyyuqxv9[address] [place] Calcium 9.6 mg/dL Normal 8.4-10.2 [facility] Comment on above: Performed By: #### B MP, LIPA, LIVER, CMADM ####[facility] Lngubutwbz9210 [address] [place] Chloride 103 mmol/L Normal 98-107 [facility] Comment on above: Performed By: #### B MP, LIPA, LIVER, CMADM ####[facility] Wwzkvrfzqp8299 [address] [place] CO2 30.0 mmol/L Normal 22.0-30.0 [facility] Comment on above: Performed By: #### B MP, LIPA, LIVER, CMADM ####[facility] Qjghsolgwb3765 [address] [place] Creatinine 0.87 mg/dL Normal 0.66-1.25 [facility] Comment on above: Performed By: #### B MP, LIPA, LIVER, CMADM ####[facility] Zybialzcex56[address] [place] [phone] eGFR (non-black) Normal 60-N/A [facility] Comment on above: Performed By: #### B MP, LIPA, LIVER, CMADM ####[facility] [address] [place], [place] [address]Jkkmyc [place] Glucose mass conc 100 mg/dL Normal 74-106 [facility] Comment on above: Performed By: #### B MP, LIPA, LIVER, CMADM ####[facility] Ujjyqqxyei7502 [place] [phone] Potassium molar conc 4.0 mmol/L Normal 3.4-5.0 [facility] Comment on above: Performed By: #### B MP, LIPA, LIVER, CMADM ####[facility] [address]ur[address] [place], [place] [address]Kbrske [place] Sodium 142 mmol/L Normal 137-145 [facility] Comment on above: Performed By: #### B MP, LIPA, LIVER, CMADM ####[facility] Dvhnteaifw232[address] [place] [phone] Urea nitrogen 13.0 mg/dL Normal 9.0-20.0 [facility] Comment on above: Performed By: #### B MP, LIPA, LIVER, CMADM ####[facility] Rig[address]ipa[address] [place], [place] [address]Sjhmmy [place] Vital Signs Date Time Vital Sign Value Performing Clinician Facility 03-31-2023 16:45-0400 Body temperature 98.06 [degF] Ramón Carrizales [facility] 03-31-2023 16:45-0400 Diastolic blood pressure 86 mm[Hg] Ramón Carrizales [facility] 03-31-2023 16:45-0400 Heart rate 80 /min Ramón Carrizales [facility] 03-31-2023 16:45-0400 Respiratory rate 16 /min Ramón Carrizales [facility] 03-31-2023 16:45-0400 SaO2% (BldA) [Mass fraction] 98 % Ramón Carrizales [facility] 03-31-2023 16:45-0400 Systolic blood pressure 136 mm[Hg] Ramón Carrizales [facility] 09-30-2022 21:22-0500 Diastolic blood pressure 83 mm[Hg] Junior Idalmis [facility] 09-30-2022 21:22-0500 Heart rate 90 /min Junior Idalmis [facility] [facility] 09-30-2022 21:22-0500 Mean blood pressure 97 mm[Hg] Junior Idalmis [facility] 09-30-2022 21:22-0500 Respiratory rate 19 /min Junior Idalmis [facility] 09-30-2022 21:22-0500 SaO2% (BldA) [Mass fraction] 100 % Junior Idalmis [facility] 09-30-2022 21:22-0500 Systolic blood pressure 124 mm[Hg] Junior Idalmis [facility] 09-30-2022 20:01-0500 Body temperature 98.24 [degF] Junior Idalmis [facility] 09-30-2022 20:01-0500 Diastolic blood pressure 100 mm[Hg] Junior Idalmis [facility] 09-30-2022 20:01-0500 Heart rate 100 /min Junior Idalmis [facility] 09-30-2022 20:01-0500 Respiratory rate 18 /min Junior Idalmis [facility] 09-30-2022 20:01-0500 SaO2% (BldA) [Mass fraction] 99 % Junior Idalmis [facility] 09-30-2022 20:01-0500 Systolic blood pressure 133 mm[Hg] Junior Idalmis [facility] 08-11-2022 08:34-0500 Body temperature 97.59 [degF] Chavez Chirri DO Work Phone: [facility] [employer] 08-11-2022 08:34-0500 Diastolic blood pressure 86 mm[Hg] Chavez Chirri DO Work Phone: [facility] [employer] 08-11-2022 08:34-0500 Heart rate 70 /min Chavez Chirri DO Work Phone: [facility] [employer] 08-11-2022 08:34-0500 Respiratory rate 16 /min Chavez Chirri DO Work Phone: [facility] [employer] 08-11-2022 08:34-0500 SaO2% (BldA) [Mass fraction] 97 % Chavez Chirri DO Work Phone: [facility] [employer] 08-11-2022 08:34-0500 Systolic blood pressure 137 mm[Hg] Chavez Chirri DO Work Phone: [facility] [employer] 08-07-2022 15:24-0500 Body height 172.7 cm Chavez Chirri DO Work Phone: [facility] [employer] 08-07-2022 15:24-0500 Body mass index (BMI) [Ratio] 26.95 kg/m2 Chavez Chirri DO Work Phone: [facility] [employer] 08-07-2022 15:24-0500 Body weight 80.4 kg Chavez Chirri DO Work Phone: [facility] [employer] 02-02-2022 06:32-0400 Body temperature 98.01 [degF] Et3 [facility] [employer] 02-02-2022 06:32-0400 Diastolic blood pressure 82 mm[Hg] Et3 [employer] 02-02-2022 06:32-0400 Heart rate 96 /min Et3 [facility] 02-02-2022 06:32-0400 Respiratory rate 18 /min Et3 [facility] 02-02-2022 06:32-0400 SaO2% (BldA) [Mass fraction] 98 % Et3 [facility] 02-02-2022 06:32-0400 Systolic blood pressure 128 mm[Hg] Et3 [facility] Encounters Encounter Date Encounter Type Care Provider Facility Start: 03-31-2023 End: 03-31-2023 Emergency department patient visit Ramón Carrizales Facility[place] Start: 03-31-2023 End: 03-31-2023 Emergency department patient visit Ramón Carrizales [facility] Start: 09-30-2022 End: 09-30-2022 Emergency department patient visit Junior Raygoza Facility:[facility] Start: 09-30-2022 End: 09-30-2022 Emergency department patient visit Junior Raygoza [facility] Start: 09-23-2022 End: 09-23-[address] ORAL Trujillo Facility: Start: 09-13-2022 End: 09-13-2022 ambulatory CECILIA CONDE . Facility:[facility] Start: 08-07-2022 End: 08-11-2022 Evaluation and management of inpatient CHAVEZ CHIRRI [facility] Start: 08-07-2022 End: 08-11-2022 Evaluation and management of inpatient Chavez Chirri DO Work Phone: [facility] Renal//Med Surg Start: 06-15-2022 End: 06-16-[address] DOCTOR RAY Facility:[facility] Start: 06-11-2022 End: 06-11-2022 ambulatory EMELI CHI Facility:[facility] Start: 06-11-2022 End: 06-11-2022 ambulatory JOSIAH MAY Facility:[facility] Start: 06-10-2022 End: 06-10-2022 ambulatory JOSIAH MAY Facility:[facility] Start: 05-17-2022 End: 05-18-[address] DOCTOR RAY Facility:[facility] Start: 04-24-2022 End: 04-24-2022 ambulatory BRIAN MOON . Facility:[facility] Start: 04-12-2022 End: 04-12-2022 ambulatory Emeli Chi Facility:[facility] Start: 04-12-2022 End: 04-12-2022 Patient encounter procedure CLINICAL EDUCATION CONSULTANT-C Emeli Chi Work Phone: [facility] [place] Start: 04-06-2022 End: 04-07-[address] DOCTOR RAY Facility:[facility] Start: 02-27-2022 End: 02-28-[address] LE OLVERA . Facility:[facility] Start: 02-27-2022 End: 02-27-2022 ambulatory JOSIAH MAY Facility:[facility] Start: 02-02-2022 End: 02-09-2022 ambulatory UNKNOWN PROVIDER [facility] Start: 02-02-2022 End: 02-02-2022 ambulatory [facility] Emergenc y Triage, Treat and Transport Start: 02-02-2022 End: 02-02-2022 Emergency department patient visit [facility] Emergency Triage, Treat and Transport Comment on above: Arrived Start: 12-30-2021 End: 12-31-2021 ambulatory JOSIAH MAY Facility:[facility] Start: 11-28-2021 End: 12-01-2021 ambulatory HANS [facility] Start: 11-23-2021 Telephone encounter Won berger MD Work Phone: Urology Comment on above: Results Procedures Date Procedure Procedure Detail Performing Clinician Start: 08-07-2022 EEG VIDEO MONITORING Aury Waller MARKETING PRODUCTION SPECIALIST - PUMPER GAUGER APPRENTICE Work Phone: Start: 08-07-2022 BASIC METABOLIC PANE L W/ REFLEX TO MG FOR LOW K Alexia Waller MARKETING PRODUCTION SPECIALIST - PUMPER GAUGER APPRENTICE Work Phone: Start: 08-07-2022 Blood count complete auto&auto difrntl wbc Alexia Waller MARKETING PRODUCTION SPECIALIST - PUMPER GAUGER APPRENTICE Work Phone: Cystoscopy Junior Raygoza Procedure on knee Juniorlauren scott Plan of Treatment Date Care Activity Detail Author Start: 2046 Shingles (RZV) Vacci ne (1 of 2) Shingles (RZV) Vaccine (1 of 2) [facility] Start: 11-16-2022 Depression Screen Depression Screen [facility] Start: 10-15-2022 End: 10-15-2022 Patient encounter procedure 10/15/2022 Office Visit Neurology Hans Granado MD [address] [place] [address] Dr [address] [place] [address] [facility] NE[facility] Part of [facility] Start: 03-29-2022 Influenza vaccination INFLUENZ A (Season Ended) [facility] Start: 02-26-2022 [facility] Start: 11-04-2019 DTaP/Tdap/Td vaccine (7 - Tdap) DTaP/Tdap/Td vaccine (7 - Tdap) [facility] Start: 2015 Urine microalbumin profile DTAP,TDAP,TD (1 - Tdap) [facility] Start: 2014 HEPATITIS C SCREENING HEPATITIS C [facility] Start: 2014 Hepatitis C screening [facility] Start: 2014 HIV SCREENING HIV SCREENING [facility] Start: 2014 Tetanus + diphtheria + acellular pertussis vaccine (product) Tdap Booster [facility] Start: 2011 HIV screening [facility] Start: 2010 PEDS TO ADULT TRANSI TION ANNUAL ASSESSMENT PEDS TO ADULT TRANSITION ANNUAL ASSESSMENT [facility] Start: 2008 Adult depression screening assessment DEPRESSION SCREENING [facility] Start: 2008 PEDS TO ADULT TRANSI TION INITIAL DISCUSSION PEDS TO ADULT TRANSITION INITIAL DISCUSSION [facility] Start: 2007 HPV VACCINE (1 - Mal e 2-dose series) HPV VACCINE (1 - Male 2-dose series) [facility] Start: 2007 Vaccination for damir n papillomavirus Human Papilloma (HPV) Vaccine (1 - Male 2-dose series) [facility] Start: 2001 COVID-19 VACCINE (1) COVID-19 VACCIN E (1) [facility] Start: 2000 Varicella vaccine (2 of 2 - 2-dose childhood series) Varicella vaccine (2 of 2 - 2-dose childhood series) [employer] Start: 02-05-1997 COVID-19 Vaccine (#1) COVID-19 Vacci ne (#1) [facility] Oxygen therapy [[facility] Data Set] Initiate Oxygen Therapy Protocol Respiratory Care Routine Daily until discontinued starting 08/07/2022 [employer] Work Phone: Comment on above: Daily until disconti nued starting 08/07/2022 Payers Date Payer Category Payer Self-pay 2021 Unknown [facility] [place] [employer] [id number] 2021-Present [id number] 2018 Medicaid [place] [employer] [id number] 2018-Present [phone] [address] [place], [place] [address] Medicaid [id number] 1996 Unknown [id number] 1996 Unknown [id number] [id number]3 1996 Unknown [id number] 2.16.840.1.348852.3.579.2.732 1996 Unknown [id number] 2.16.840.1.633568.3.579.2.593 1996 Unknown [id number] 2.16.840.1.654682.3.579.2.593 1996 Unknown [id number] 2.16.840.1.227191.3.579.2.593 1996 Unknown [id number] 2.16.840.1.391997.3.579.2.593 1996 Unknown [id number] 2.16.840.1.538571.3.579.2.593 1996 Unknown [id number] 2.16.840.1.685257.3.579.2.593 1996 Unknown [id number] 2.16.840.1.462631.3.579.2.593 1996 Unknown [id number] 2.16.840.1.804433.3.579.2.593 1996 Unknown [id number] 2.16.840.1.618603.3.579.2.593 1996 Unknown [id number] 2.16.840.1.957248.3.579.2.593 1996 Unknown [id number] 2.16.840.1.313900.3.579.2.593 1996 Unknown [id number] 2.16.840.1.890476.3.579.2.593 1996 Unknown [id number] 2.16.840.1.144190.3.579.2.593 1996 Unknown [id number] 2.16.840.1.708312.3.579.2.727 1996 Unknown [id number] 2.16.840.1.338516.3.579.2.727 1996 Unknown [id number] 2.16.840.1.306887.3.579.2.175 1959 Unknown [id number] Unknown [id number] 2.16.840.1.320853.3.579.2.531 Social History Date Type Detail Facility Start: 05-03-2020 End: 01-20-2021 Tobacco smoking status NHIS Never smoked tobacco [facility] Start: 01-20-2021 End: 11-16-2021 Tobacco use and exposure Smokeless tobacco non-user [facility] Start: 08-03-2021 Alcohol intake Ex-drinker (finding) [facility] Start: 1995 Sex Assigned At Not on file C [facility] Start: 11-05-2021 End: 08-07-2022 Exposure to SARS-CoV-2 (event) Not sure [facility] Tobacco smoking status NHIS Tobacco smoking consumption unknown [facility] Start: 1995 Sex Assigned At Male F [facility] Start: 08-07-2022 Alcohol intake Lifetime non-d starr (finding) [facility] [employer] Work Phone: Tobacco smoking status Never [facility] Sex Assigned At Male [facility] Functional Status Date Assessment Result Facility 03-31-2023 Functional Status N/A [facility] 09-30-2022 Functional Status N/A [facility] Clinical Notes 01-20-2021 to 03-31-2023 Note Date & Type Note Facility 03-31-2023 Hospital Discharg e instructions Patient Education 03/31/2023 16:54:57 Wound Dehiscence Wound Dehiscence Wound dehiscence is when a surgical incision breaks open and does not heal properly after surgery. It usually happens 7 10 days after surgery. This can be a serious condition. It is important to identify and treat this condition early. What are the causes? Common causes of this condition include: Stretching of the wound area. This may be caused by lifting, vomiting, violent coughing, or straining during bowel movements. Wound infection. Early removal of stitches (sutures) or the sutures breaking or coming loose. What increases the risk? The following factors may make you more likely to develop this condition: Obesity. Lung disease. Smoking. Poor nutrition. Contamination during surgery. Medical problems that make it harder to heal, such as diabetes or autoimmune diseases. Taking certain medicines. What are the signs or symptoms? Symptoms of this condition include: Bleeding or drainage from the wound. Pain. Fever. The wound starting to break open. How is this diagnosed? This condition may be diagnosed with a physical exam. Your health care provider will monitor the incision and note any changes in the wound. These changes can include a gap in the incision and an increase in drainage or pain. The health care provider may ask you if you have noticed any stretching or tearing of the wound. You may also have tests, including: Wound culture tests to determine if there is an infection. Imaging tests, such as an MRI scan or CT scan, to determine if there is a collection of pus or fluid in the wound area. Blood tests to check for infection and inflammation. How is this treated? Treatment for this condition may include: Wound care to keep the incision clean and help it heal. Surgical repair. Antibiotic medicine to treat or prevent infection. Medicines to reduce pain and swelling. Follow these instructions at home: Medicines Take quit-cvj-amavmbe and prescription medicines only as told by your health care provider. Taking pain medicine 30 minutes before changing a bandage (dressing) can help relieve pain. If you were prescribed an antibiotic medicine, take it as told by your health care provider. Do not stop using the antibiotic even if you start to feel better. Wound care Follow instructions from your health care provider about how to take care of your wound. Make sure you: ?Wash your hands with soap and water before and after you change your dressing or wash the wound area. If soap and water are not available, use hand sugar mill worker. ?Gently wash the wound area with mild soap and water 2 times a day, or as directed. Rinse off the soap. Pat the area dry with a clean towel. Do not rub the wound. ?Change the dressing and the packing inside as told by your health care provider. Do not scratch or pick at the wound. Check your wound area every day for signs of infection. Check for: ?More redness, swelling, or pain. ?More fluid or blood. ?Warmth. ?Pus or a bad smell. Activity Avoid exercises that make you sweat heavily or could cause stretching of your wound. Do not lift anything that is heavier than 10 lb (4.5 kg), or the limit that you are told, until the wound is healed or until your health care provider says that it is safe. General instructions Do not take baths, swim, or use a hot tub until your health care provider approves. Ask your health care provider if you may take showers. You may only be allowed to take sponge baths. Keep all follow-up visits as told by your health care provider. This is important. Contact a health care provider if: Your wound does not seem to be healing properly. You have a fever. Get help right away if: You have more redness, swelling, or pain around your wound. You have more fluid coming from your wound. Your wound, or the area around it, feels hard or warm to the touch. You have pus or a bad smell coming from your wound. Your wound breaks open farther. You have redness streaking or spreading from your wound. You have excessive bleeding from your wound. Summary Wound dehiscence is when a surgical incision breaks open and does not heal properly after surgery. Follow instructions from your health care provider about how to take care of your wound. Check your wound area every day for signs of infection, such as redness, swelling, pain, fluid, blood, warmth, pus, or a bad smell. If you were prescribed an antibiotic medicine, take it as told by your health care provider. Do not stop using the antibiotic even if you start to feel better. This information is not intended to replace advice given to you by your health care provider. Make sure you discuss any questions you have with your health care provider. Document Revised: 07/06/2020 Document Reviewed: 07/06/2020 [employer] Patient Education 2022 General Compression. Follow Up Care 03/31/2023 16:45:16 With:EMELI CHI Address: [address] [place] [address]- [phone] Business (1) When:04/03/2023 16:54:21 Comments:Call the office of your primary care doctor to arrange for follow-up within the above-stated timeframe. Follow-up with your primary care doctor about this ED visit. You should review your labs, imaging, and diagnoses from this ED visit with your primary care physician. There are occasionally non-emergent findings that require additional follow-up after your ED visit. If you were prescribed medications you should discuss possible side-effects and drug interactions with your pharmacist. Call 911 or go to the nearest Emergency Department if you develop any new or worsening symptoms.Immobilize the thumb for the next 3 to 5 days or until sutures are removed. [facility] 03-31-2023 Evaluation + Plan note [employer] from: Title:ED Note Author:Ramón Carrizales DO Date: Wound dehiscence (T81.30XA: Disruption of wound, unspecified, initial encounter) [facility]03-05-2023 Hospital Discharge instructions Patient Education 09/30/2022 21:30:18 Epilepsy Epilepsy Epilepsy is a condition in which a person has repeated seizures over time. A seizure is a sudden burst of abnormal electrical and chemical activity in the brain. Seizures can cause a change in attention, behavior, or the ability to remain awake and alert (altered mental status). Epilepsy increases a person's risk of falls, accidents, and injury. It can also lead to complications, including: Depression. Poor memory. Sudden unexplained in epilepsy (SUDEP). This complication is rare, and its cause is not known. Most people with epilepsy lead normal lives. What are the causes? This condition may be caused by: A head injury. An injury that happens at . A high fever during childhood. A stroke. Bleeding that goes into or around the brain. Certain medicines and drugs. Having too little oxygen for a long period of time. Abnormal brain development. Certain infections, such as meningitis and encephalitis. Brain tumors. Conditions that are passed from parent to child (are hereditary). What are the signs or symptoms? Symptoms of a seizure vary greatly from person to person. They may include: Convulsions. Stiffening of the body. Involuntary movements of the arms or legs. Loss of consciousness. Breathing problems. Falling suddenly. Confusion. Head nodding. Eye blinking or fluttering. Lip smacking. Drooling. Rapid eye movements. Grunting. Loss of bladder control and bowel control. Staring. Unresponsiveness. Some people have symptoms right before a seizure happens (aura) and right after a seizure happens. Symptoms of an aura include: Fear or anxiety. Nausea. Feeling like the room is spinning (vertigo). A feeling of having seen or heard something before (d j vu). Odd tastes or smells. Changes in vision, such as seeing flashing lights or spots. Symptoms that follow a seizure include: Confusion. Sleepiness. Headache. How is this diagnosed? This condition is diagnosed based on: Your symptoms. Your medical history. A physical exam. A neurological exam. A neurological exam is similar to a physical exam. It involves checking your strength, reflexes, coordination, and sensations. Tests, such as: ?A painless test that creates a diagram of your brain waves (electroencephalogram, orEEG). ?An MRI. ?A CT scan. ?A lumbar puncture, also called a spinal tap. ?Blood tests to check for signs of infection or abnormal blood chemistry. How is this treated? Treatment can control seizures. Some types of epilepsy will need lifelong treatment, and some typesgo away in time. Treatment for this condition may involve: Taking medicines to control seizures. Having a device called a vagus nerve stimulator implanted in the chest. The device sends electricalimpulses to the vagus nerve and to the brain to prevent seizures. This treatment may be recommendedif medicines do not help. Brain surgery. There are several kinds of surgeries that may be done to stop seizures from happening or to reduce how often seizures happen. Having regular blood tests. You may need to have blood tests regularly to check that you are getting the right amount of medicine. Once this condition has been diagnosed, it is important to begin treatment as soon as possible. Forsome people, epilepsy eventually goes away. Follow these instructions at home: Medicines Take grux-vhb-tdilncq and prescription medicines only as told by your health care provider. Avoid any substances that may prevent your medicine from working properly, such as alcohol. Activity Get enough rest. Lack of sleep can make seizures more likely to occur. Follow instructions from your health care provider about driving, swimming, and doing any other activities that would be dangerous if you had a seizure. ?If you live in the [place] check with your local DMV (department of motor vehicles) to find out about local driving laws. Each state has specific rules about when you can legally return to driving. Educating others Teach friends and family what to do if you have a seizure. They should: Lay you on the ground to prevent a fall. Cushion your head and body. Loosen any tight clothing around your neck. Turn you on your side. If vomiting occurs, this helps keep your airway clear. Stay with you until you recover. Not hold you down. Holding you down will not stop the seizure. Not put anything in your mouth. Know whether or not you need emergency care. General instructions Avoid anything that has ever triggered a seizure for you. Keep a seizure diary. Record what you remember about each seizure, especially anything that might have triggered the seizure. Keep all follow-up visits as told by your health care provider. This is important. Contact a health care provider if: Your seizure pattern changes. You have symptoms of infection or another illness. This might increase your risk of having a seizure. Get help right away if: You have: ?A seizure that does not stop after 5 minutes. ?Several seizures in a row without a complete recovery between seizures. ?A seizure that makes it harder to breathe. ?A seizure that is different from previous seizures. ?A seizure that leaves you unable to speak or use a part of your body. You did not wake up immediately after a seizure. These symptoms may represent a serious problem that is an emergency. Do not wait to see if the symptoms will go away. Get medical help right away. Call your local emergency services (911 in the [place] Do not drive yourself to the hospital. Summary Epilepsy is a condition in which a person has repeated seizures over time. Some types of epilepsy will need lifelong treatment, and some types go away in time. Seizures can cause many symptoms, from brief staring spells or involuntary movements of the arms orlegs to convulsions with loss of consciousness. Treatment is effective at controlling seizures. Take pihj-vae-yxdhkuk and prescription medicines only as told by your health care provider. Follow instructions from your health care provider about driving, swimming, and doing any other activities that would be dangerous if you had a seizure. Teach friends and family what to do if you have a seizure. This information is not intended to replace advice given to you by your health care provider. Make sure you discuss any questions you have with your health care provider. Document Released: 07/15/2006 Document Revised: 03/09/2019 Document Reviewed: 03/09/2019 [employer] Patient Education 2020 General Compression. Follow Up Care 09/30/2022 20:00:37 With:EMELI CHI Address: [facility] [facility] [place] [address]- [phone] Business (1) When:Within 3 Day(s) [facility]03-05-2023 Evaluation + Plan noteExtracted from: Title:ED Note Author:Junior Raygoza DO Date :09/30/22 Seizure (R56.9: Unspecified convulsions) Orders: lorazepam, 2 mg = 2 tab(s), Tab, Oral, Once, Stop date 09/30/22 22:00:00 EST, Routine, Start date 09/30/22 22:00:00 EST, 09/30/22 21:09:00 EST [facility]01-14-2023 Hospital course Narrative* Benjamin Miles MD - 08/11/2022 2:28 PM EST Images from the original note were not included. [facility] Department of Neurology INPATIENT DISCHARGE SUMMARY Patient Identification: Corey Alonso III is a 27 y.o. male. 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 * Consults: none Brief Inpatient course: This is a 27-year-old male history of seizure disorder, was admitted on 08/07/2022 for elective LTM E, reported that he developed seizure in 2014 after he was diagnosed with a brain infection through LP. Usually has 2 types of seizure where he stares, described as blank stare with involuntary circular movements of upper extremity. Other seizure described as grinding but denies biting tongue. Episodes usually last for several seconds to few minutes. Followed by postictal confusion. Patient doesnot recall events, occasionally has aura of d j vu with confusion. States that stress and sleep deprivation trigger his seizures. He can be seizure-free for weeks and then have 1-2 seizures per day. Had 6 seizures that occurred overnight 07/03-07/04. Has been seizure-free since then. Follows with neurologist in [place] currently taking Trileptal 600 mg twice daily, Lamictal 300 mg twice daily. LTM he was recommended to Reduce events. Patient had 4 days of LTME, with down titrating Trileptal and Lamictal, day 5 was completed withoutantiseizure medications. 5 days LTME: frequent left anterior mid temporal sharp waves which conferred an increased risk for focal onset seizures. No events or seizures were captured Home dose of Trileptal 600 mg twice daily and Lamictal 300 mg twice daily was resumed on discharge. Patient is stable from neurological standpoint to be discharged. Procedures: 5 days LTME Any Hospital Acquired Infections: none Discharge Functional Status: stable Disposition: home Patient Instructions: No driving for at least 6 months. No heavy lifting for at least 6 months No bathing or swimming unsupervised Avoid locking doors, it prevents some to help you if needed Avoid stairs unsupervised Avoid cooking unsupervised Discharge Medications: Current Discharge Medication List CONTINUE these medications which have NOT CHANGED Details !! lamoTRIgine (LAMICTAL) 100 MG tablet Take 1 tablet by mouth 2 times daily Qty: 60 tablet, Refills: 5 OXcarbazepine (TRILEPTAL) 600 MG tablet I tablet 2 times a day Qty: 60 tablet, Refills: 5 !! lamoTRIgine (LAMICTAL) 200 MG tablet Take 1 tablet by mouth 2 times daily Qty: 60 tablet, Refills: 5 !! - Potential duplicate medications found. Please discuss with provider. Activity: activity as tolerated Restrictions: Driving Yes, Swimming Yes, Operating heavy machinery Yes, Compromising heights Yes Diet: regular diet Follow-up: Hans Granado MD [address] [place] [address] Dr Hutson A [facility] [id number] Schedule an appointment as soon as possible for a visit follow up with neurology in 4-6weeks for seizure disorder Follow up labs: None Follow up imaging: None Note that over 30 minutes was spent in preparing discharge papers, discussing discharge with patient, medication review, etc. Benjamin Miles MD, Neurology Resident PGY-2 Department of Neurology [place], [place] 08/11/2022, 4:52 PM Associated attestation - Chavez Lee DO - 08/11/2022 4:57 PM EST Attending Physician Statement: I have discussed the case of Corey Alonso III, including pertinent history and exam findings with the resident. I have seen and examined the patient and the [place] elements of the encounter have been performed by me. I have reviewed medications, clinical laboratory, imaging and other diagnostic tests with the residents. I agree with the assessment, plan and orders as documented by the resident with changes made to the note as needed. Chavez Lee DO 08/11/2022 4:57 PM documented in this encounterBON [employer] [facility] [employer] Work Phone: [phone] [phone] History of Present illness Narrative* Benjamin Miles MD - 08/11/2022 2:16 PM EST [facility] Neurology IN-PATIENT SERVICE [facility] Progress Note Date: 08/11/2022 Patient name: Corey Alonso III Date of admission: 08/07/2022 2:07 PM Account: [id number] Date of : 1995 PCP: Emeli Chi Room: Code Status: Full Code Chief Complaint: Elective LTME, seizure Interval hx: The patient was seen and examined at bedside. Is vitally stable, alert and oriented x 3. No acute events overnight. The patient stated no seizures overnight, was complaining of numbness of right upper extremity, hasbeen off seizure medications. LTM E Was abnormal due to frequent left anterior mid temporal sharp waves Brief History of Present Illness: This is a 27-year-old male history of seizure disorder, was admitted on 08/07/2022 for elective LTM E, reported that he developed seizure in 2014 after he was diagnosed with a brain infection through LP. Usually has 2 types of seizure where he stares, described as blank stare with involuntary circular movements of upper extremity. Other seizure described as grinding but denies biting tongue. Episodes usually last for several seconds to few minutes. Followed by postictal confusion. Patient doesnot recall events, occasionally has aura of d j vu with confusion. States that stress and sleep deprivation trigger his seizures. He can be seizure-free for weeks and then have 1-2 seizures per day. Had 6 seizures that occurred overnight 07/03-07/04. Has been seizure-free since then. Follows with neurologist in [place] currently taking Trileptal 600 mg twice daily, Lamictal 300 mg twice daily. LTM he was recommended to Reduce events. Patient had 4 days of LTME, with down titrating Trileptal and Lamictal, day 5 was completed withoutantiseizure medications. 5 days LTME: frequent left anterior mid temporal sharp waves which conferred an increased risk for focal onset seizures. No events or seizures were captured Past Medical History: Past Medical History: Diagnosis Date Asthma Epilepsy (HCC) Past Surgical History: Past Surgical History: Procedure Laterality Date KNEE ARTHROSCOPY TESTICLE SURGERY Medications Prior to Admission: Prior to Admission medications Medication Sig Start Date End Date Taking? Authorizing Provider lamoTRIgine (LAMICTAL) 100 MG tablet Take 1 tablet by mouth 2 times daily 07/19/22 08/18/22 Hans Granado MD OXcarbazepine (TRILEPTAL) 600 MG tablet I tablet 2 times a day 07/19/22 Hans Granado MD lamoTRIgine (LAMICTAL) 200 MG tablet Take 1 tablet by mouth 2 times daily 07/19/22 08/18/22 Hans Granado MD Allergies: Patient has no known allergies. Social History: Tobacco: reports that he has never smoked. He has never used smokeless tobacco. Alcohol: reports no history of alcohol use. Drug Use: reports no history of drug use. Family History: History reviewed. No pertinent family history. Review of Systems: Review of Systems Constitutional: Negative for fatigue, fever and unexpected weight change. HENT: Negative for rhinorrhea. Eyes: Negative for photophobia. Respiratory: Negative for cough and shortness of breath. Cardiovascular: Negative for chest pain, palpitations and leg swelling. Gastrointestinal: Negative for abdominal distention, abdominal pain, constipation, diarrhea and nausea. Endocrine: Negative for polyuria. Genitourinary: Negative for dysuria, frequency and hematuria. Musculoskeletal: Negative for arthralgias and back pain. Skin: Negative for color change. Neurological: Positive for numbness. Negative for dizziness, tremors, seizures, syncope, weakness, light-headedness and headaches. Psychiatric/Behavioral: Negative for behavioral problems and confusion. The patient is not nervous/anxious. Physical Exam: BP 137/86 Pulse 70 Temp 97.6 F (36.4 C) (Oral) Resp 16 Ht 5' 8 (1.727 m) Wt 177 lb 4 oz(80.4 kg) SpO2 97% BMI 26.95 kg/m Temp (24hrs), Av.8 F (36.6 C), Min:97.6 F (36.4 C), Max:98 F (36.7 C) No results for input(s): POCGLU in the last 72 hours. No intake or output data in the 24 hours ending 08/11/22 1416 Neurologic Exam GENERAL Appears comfortable and in no distress HEENT NC/ AT HEART S1 and S2 heard; palpation of pulses: radial pulse NECK Supple and no bruits heard MENTAL STATUS: Alert, oriented, intact memory, no confusion, normal speech, normal language, no hallucination or delusion CRANIAL NERVES: II - Visual clark intact to confrontation III,IV, - PERR, EOMs full, no ptosis V - Normal facial sensation VII - Normal facial symmetry VIII - Intact hearing IX,X - Symmetrical palate XI - Symmetrical shoulder shrug XII - Midline tongue, no atrophy MOTOR FUNCTION: RUE: Significant for good strength of grade 5/5 in proximal and distal muscle groups LUE: Significant for good strength of grade 5/5 in proximal and distal muscle groups RLE: Significant for good strength of grade 5/5 in proximal and distal muscle groups LLE: Significant for good strength of grade 5/5 in proximal and distal muscle groups Normal bulk, normal tone and no involuntary movements, no tremor SENSORY FUNCTION: Normal touch, normal pinprick, normal vibration, normal proprioception CEREBELLAR FUNCTION: Intact fine motor control over upper limbs and lower limbs REFLEX FUNCTION: Symmetric in upper and lower extremities, no Babinski sign STATION and GAIT Normal gait and tandem station, normal tip toes and heel walking Investigations: Laboratory Testing: No results found for this or any previous visit (from the past 24 hour(s)). No results for input(s): WBC, RBC, HGB, HCT, MCV, MCH, MCHC, RDW, PLT, MPV in the last 72 hours. No results for input(s): NA, K, CL, CO2, BUN, CREATININE, GLUCOSE, CALCIUM, PROT, LABALBU, BILITOT,ALKPHOS, AST, ALT in the last 72 hours. 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 male history of seizure disorder follows with his neurologist has been on Trileptal 600 twice daily Lamictal 300 mg twice daily. Was admitted for an elective LTME. Seizure medications were down titrated. 5 days study showing frequent left anterior mid temporal sharp waves which conferred an increased risk for focal onset seizures. No events or seizures were captured Impression seizure disorder Plan: DC LTM E today Resume home dose of Lamictal and Trileptal Discharge today Follow-up further recommendations after discussing the case with attending The plan was discussed with the patient, patient's family and the medical staff. Consultations: None Patient is admitted as inpatient status because of co-morbidities listed above, severity of signs and symptoms as outlined, requirement for current medical therapies and most importantly because of direct risk to patient if care not provided in a hospital setting. Benjamin Miles MD Neurology Resident PGY-2 08/11/2022 2:16 PM Copy sent to Dr. Emeli Chi Associated attestation - Chavez Lee DO - 08/11/2022 3:15 PM EST Attending Physician Statement: I have discussed the case of Corey Alonso III, including pertinent history and exam findings with the resident. I have seen and examined the patient and the [place] elements of the encounter have been performed by me. I have reviewed medications, clinical laboratory, imaging and other diagnostic tests with the residents. I agree with the assessment, plan and orders as documented by the resident with changes made to the note as needed. Has been off of Trileptal and Lamictal overnight. LTM E continues to show frequent left anterior temporal sharp waves. No spells have been captured unfortunately. We will go ahead and resume his home dose of Lamictal 300 mg twice daily and Trileptal 600 mg twicedaily at this time. Will plan for discharge this afternoon. We will give dose prior to discharge. Okay to unhook EEG. Follow-up as outpatient in 3 to 4 weeks. Chavez Lee DO 08/11/2022 3:11 PM * Kayden Collado APRN - PUMPER GAUGER APPRENTICE - 08/10/2022 10:43 AM EST Neurology Nurse Practitioner Progress Note INTERVAL HISTORY: This is a 27 y.o. male admitted 08/07/2022 for elective LTME. This is a follow-up neurology progress note. The patient was examined and the chart was reviewed. Discussed with the pt & RN. There were no acute events overnight. No new c/o. No clinical or electrographic seizures reported since admission. Will D/C Lamictal today. HPI: Corey Alonso III is a 27 y.o. male with H/O seizures, who was admitted 08/07/2022 for elective LTME. Patient reported that he developed seizures in 2014 after he was diagnosed with brain infection through LP. He reported 2 types of seizures; staring spells that he describes as blank stare with involuntary circular movement of upper extremities. The other type of seizures are grand mal with generalized tonic-clonic activity associated with LOC, intermittent incontinence and teeth grinding. Denied tongue bite. These episodes usually last from several seconds to several minutes, followed by postictal confusion. He will be unable to recall the event. He described occasional aura ofd j vu with confusion. He noted stress & sleep deprivation trigger his seizures. He can be seizure-free for weeks and then have 1 or 2 seizures per day. He had 6 seizures that occurred overnight 07/03-07/04/22. No seizures were witnessed by his . Has been seizure-free since then. He follows up with his own neurologist in [place] and has been taking Trileptal 600 mg twice daily and Lamictal 300 mg twice daily. LTME was recommended to capture and characterize her typical spells. Patient presented to [facility] on 08/07/2022 for inpatient LTME. HOSPITAL COURSE: He was hooked up to LTME. Trileptal dose was decreased from 600 mg twice daily to 300 mg twice daily. Next day patient received 2 doses of Trileptal 150 mg BID; it was stopped on 08/09. sodium chloride flush 5-40 mL IntraVENous 2 times per day enoxaparin 40 mg SubCUTAneous Q24H lamoTRIgine 200 mg Oral BID lamoTRIgine 100 mg Oral BID Past Medical History: Diagnosis Date Asthma Epilepsy (HCC) Past Surgical History: Procedure Laterality Date KNEE ARTHROSCOPY TESTICLE SURGERY PHYSICAL EXAM: Blood pressure 120/72, pulse 69, temperature 97.8 F (36.6 C), resp. rate 16, height 5' 8 (1.727 m), weight 177 lb 4 oz (80.4 kg), SpO2 96 %. ROS: Constitutional Negative for fever and chills HEENT Negative for ear discharge, ear pain, nosebleed Eyes Negative for photophobia, pain and discharge Respiratory Negative for hemoptysis and sputum Cardiovascular Negative for orthopnea, claudication and PND Gastrointestinal Negative for abdominal pain, diarrhea, blood in stool Musculoskeletal Negative for joint pain, negative for myalgia Skin Negative for rash or itching Endo/heme/allergies Negative for polydipsia, environmental allergy Psychiatric/behavioral Negative for suicidal ideation. Patient is not anxious Neurological Examination: Mental status Alert and oriented x 3; following all commands; speech is fluent, no dysarthria, aphasia Cranial nerves II - visual clark intact to confrontation; pupils reactive III, IV, - extraocular muscles intact; no TRINI; no nystagmus; no ptosis V - normal facial sensation VII - normal facial symmetry VIII - intact hearing IX, X - symmetrical palate elevation XI - symmetrical shoulder shrug XII - midline tongue without atrophy or fasciculation Motor function Strength: 5/5 RUE, 5/5 RLE, 5/5 LUE, 5/5 LLE Normal bulk and tone Sensory function Grossly intact Cerebellar No visible tremors Reflex function 2/4 symmetric throughout Down going plantar response bilaterally Gait Not tested DATA Lab Results Component Value Date WBC 7.4 08/07/2022 RBC 5.47 08/07/2022 HGB 15.6 08/07/2022 HCT 45.6 08/07/2022 PLT 215 08/07/2022 NA 139 08/07/2022 K 4.0 08/07/2022 CL 102 08/07/2022 CREATININE 0.94 08/07/2022 BUN 12 08/07/2022 CO2 26 08/07/2022 DIAGNOSTIC DATA: LTME (08/07 - Day 1, 2 & 3: During this day of recording no events were recorded. The interictal EEG was abnormal due to frequent L anterior mid temporal sharp waves which conferred an increased risk for focalonset seizures. There was activation of these sharp wave discharges during behavioral sleep RECENT DATA: MRI BRAIN (11/28/2021): No acute intracranial abnormality EEG (11/29/2021): Normal IMPRESSION: 27 y.o. male admitted for Elective LTME to capture and characterize his typical episodes. LTME - frequent L anterior mid temporal sharp waves. No clinical or electrographic seizures reported He was taking Trileptal 600 mg BID & Lamictal 300 mg BID at home PLAN: Continue LTME D/C Lamictal today DVT Px; Lovenox 40 mg SC QD D/C planning Please note that this note was generated using a voice recognition dictation software. Although every effort was made to ensure the accuracy of this automated storage worker, some errors in storage worker may have occurred. Associated attestation - Chavez Lee DO - 08/10/2022 2:54 PM EST Attending Physician Statement: I have discussed the care of Corey Alonso III, including pertinent history and exam findings with the KALIA. I have seen and examined the patient and the [place] elements of the encounter have been performed by me. I have reviewed medications, clinical laboratory, imaging and other diagnostic tests with the KALIA. I agree with the assessment, plan and orders as documented by the KALIA with changes made to the note as needed. Chavez Lee DO 08/10/2022 2:54 PM * Kayden Collado APRN - PUMPER GAUGER APPRENTICE - 08/09/2022 11:51 AM EST Neurology Nurse Practitioner Progress Note INTERVAL HISTORY: This is a 27 y.o. male admitted 08/07/2022 for elective LTME. This is a follow-up neurology progress note. The patient was examined and the chart was reviewed. Discussed with the pt & RN. There were no acute events overnight. No new motor, sensory, visual or bulbar symptoms. Noclinical or electrographic seizures reported. Trileptal has been D/C'd today after AM dose. HPI: Corey Alonso III is a 27 y.o. male with H/O seizures, who was admitted 08/07/2022 for elective LTME. Patient reported that he developed seizures in 2014 after he was diagnosed with brain infection through LP. He reported 2 types of seizures; staring spells that he describes as blank stare with involuntary circular movement of upper extremities. The other type of seizures are grand mal with generalized tonic-clonic activity associated with LOC, intermittent incontinence and teeth grinding. Denied tongue bite. These episodes usually last from several seconds to several minutes, followed by postictal confusion. He will be unable to recall the event. He described occasional aura ofd j vu with confusion. He noted stress & sleep deprivation trigger his seizures. He can be seizure-free for weeks and then have 1 or 2 seizures per day. He had 6 seizures that occurred overnight 07/03-07/04/22. No seizures were witnessed by his . Has been seizure-free since then. He follows up with his own neurologist in [place] and has been taking Trileptal 600 mg twice daily and Lamictal 300 mg twice daily. LTME was recommended to capture and characterize her typical spells. Patient presented to [facility] on 08/07/2022 for inpatient LTME. HOSPITAL COURSE: He was hooked up to LTME. Trileptal dose was decreased from 600 mg twice daily to 300 mg twice daily. Next day patient received 2 doses of Trileptal 150 mg BID; it was stopped on 08/09. sodium chloride flush 5-40 mL IntraVENous 2 times per day enoxaparin 40 mg SubCUTAneous Q24H lamoTRIgine 200 mg Oral BID lamoTRIgine 100 mg Oral BID Past Medical History: Diagnosis Date Asthma Epilepsy (HCC) Past Surgical History: Procedure Laterality Date KNEE ARTHROSCOPY TESTICLE SURGERY PHYSICAL EXAM: Blood pressure 121/85, pulse 67, temperature 97.7 F (36.5 C), temperature source Oral, resp. rate 16, height 5' 8 (1.727 m), weight 177 lb 4 oz (80.4 kg), SpO2 98 %. ROS: Constitutional Negative for fever and chills HEENT Negative for ear discharge, ear pain, nosebleed Eyes Negative for photophobia, pain and discharge Respiratory Negative for hemoptysis and sputum Cardiovascular Negative for orthopnea, claudication and PND Gastrointestinal Negative for abdominal pain, diarrhea, blood in stool Musculoskeletal Negative for joint pain, negative for myalgia Skin Negative for rash or itching Endo/heme/allergies Negative for polydipsia, environmental allergy Psychiatric/behavioral Negative for suicidal ideation. Patient is not anxious Neurological Examination: Mental status Alert and oriented x 3; following all commands; speech is fluent, no dysarthria, aphasia Cranial nerves II - visual clark intact to confrontation; pupils reactive III, IV, - extraocular muscles intact; no TRINI; no nystagmus; no ptosis V - normal facial sensation VII - normal facial symmetry VIII - intact hearing IX, X - symmetrical palate elevation XI - symmetrical shoulder shrug XII - midline tongue without atrophy or fasciculation Motor function Strength: 5/5 RUE, 5/5 RLE, 5/5 LUE, 5/5 LLE Normal bulk and tone Sensory function Grossly intact Cerebellar No visible tremors Reflex function / symmetric throughout Down going plantar response bilaterally Gait Not tested DATA Lab Results Component Value Date WBC 7.4 08/07/2022 RBC 5.47 08/07/2022 HGB 15.6 08/07/2022 HCT 45.6 08/07/2022 PLT 215 08/07/2022 NA 139 08/07/2022 K 4.0 08/07/2022 CL 102 08/07/2022 CREATININE 0.94 08/07/2022 BUN 12 08/07/2022 CO2 26 08/07/2022 DIAGNOSTIC DATA: LTME (08/07 - Day 1, 2 & 3: During this day of recording no events were recorded. The interictal EEG was abnormal due to frequent L anterior mid temporal sharp waves which conferred an increased risk for focalonset seizures. There was activation of these sharp wave discharges during behavioral sleep RECENT DATA: MRI BRAIN (11/28/2021): No acute intracranial abnormality EEG (11/29/2021): Normal IMPRESSION: 27 y.o. male admitted for Elective LTME to capture and characterize his typical episodes. LTME - frequent L anterior mid temporal sharp waves. No clinical or electrographic seizures reported He was taking Trileptal 600 mg BID & Lamictal 300 mg BID at home PLAN: Continue LTME Continue Lamictal 300 mg BID PO. Trileptal has been D/C'd after AM dose today DVT Px; Lovenox 40 mg SC QD D/C planning Please note that this note was generated using a voice recognition dictation software. Although every effort was made to ensure the accuracy of this automated storage worker, some errors in storage worker may have occurred. Associated attestation - RosaBetoDO elan - 08/09/2022 5:17 PM EST Attending Physician Statement: I have discussed the care of Corey Alonso III, including pertinent history and exam findings with the KALIA. I have seen and examined the patient and the [place] elements of the encounter have been performed by me. I have reviewed medications, clinical laboratory, imaging and other diagnostic tests with the KALIA. I agree with the assessment, plan and orders as documented by the KALIA with changes made to the note as needed. Chavez Lee DO 08/09/2022 5:17 PM * BELL Khalil CNP - 2022 11:57 AM EST Neurology Nurse Practitioner Progress Note INTERVAL HISTORY: This is a 27 y.o. male admitted 08/07/2022 for elective LTME. This is a follow-up neurology progress note. The patient was examined and the chart was reviewed. Discussed with the pt & RN. There were no acute events overnight. No new motor, sensory, visual or bulbar symptoms. Noclinical seizures reported. Trileptal dose will be decreased from 300 mg twice daily to 150 mg twice daily tonight x 2 doses and then stop. HPI: Corey Alonso III is a 27 y.o. male with H/O seizures, who was admitted 08/07/2022 for elective LTME. Patient reported that he developed seizures in 2014 after he was diagnosed with brain infection through LP. He reported 2 types of seizures; staring spells that he describes as blank stare with involuntary circular movement of upper extremities. The other type of seizures are grand mal with generalized tonic- clonic activity associated with LOC, intermittent incontinence and teeth grinding. Denied tongue bite. These episodes usually last from several seconds to several minutes, followed by postictal confusion. He will be unable to recall the event. He described occasional aura of darien blum with confusion. He noted stress & sleep deprivation trigger his seizures. He can be seizure-free for weeks and then have 1 or 2 seizures per day. He had 6 seizures that occurred o vernight 07/03-07/04/22. No seizures were witnessed by his . Has been seizure- free since then. Hefollows up with his own neurologist in [place] and has been taking Trileptal 600 mg twice daily and Lamictal 300 mg twice daily. LTME was recommended to capture and characterize her typical spells. Patient presented to [facility] on 08/07/2022 for inpatient LTME. HOSPITAL COURSE: He was hooked up to LTME. Trileptal dose was decreased from 600 mg twice daily to 300 mg twice daily. sodium chloride flush 5-40 mL IntraVENous 2 times per day enoxaparin 40 mg SubCUTAneous Q24H lamoTRIgine 200 mg Oral BID lamoTRIgine 100 mg Oral BID OXcarbazepine 300 mg Oral BID Past Medical History: Diagnosis Date Asthma Epilepsy (HCC) Past Surgical History: Procedure Laterality Date KNEE ARTHROSCOPY TESTICLE SURGERY PHYSICAL EXAM: Blood pressure 127/74, pulse 79, temperature 97.8 F (36.6 C), temperature source Oral, resp. rate 16, height 5' 8 (1.727 m), weight 177 lb 4 oz (80.4 kg), SpO2 97 %. ROS: Constitutional Negative for fever and chills HEENT Negative for ear discharge, ear pain, nosebleed Eyes Negative for photophobia, pain and discharge Respiratory Negative for hemoptysis and sputum Cardiovascular Negative for orthopnea, claudication and PND Gastrointestinal Negative for abdominal pain, diarrhea, blood in stool Musculoskeletal Negative for joint pain, negative for myalgia Skin Negative for rash or itching Endo/heme/allergies Negative for polydipsia, environmental allergy Psychiatric/behavioral Negative for suicidal ideation. Patient is not anxious Neurological Examination: Mental status Alert and oriented x 3; following all commands; speech is fluent, no dysarthria, aphasia Cranial nerves II - visual clark intact to confrontation; pupils reactive III, IV, - extraocular muscles intact; no TRINI; no nystagmus; no ptosis V - normal facial sensation VII - normal facial symmetry VIII - intact hearing IX, X - symmetrical palate elevation XI - symmetrical shoulder shrug XII - midline tongue without atrophy or fasciculation Motor function Strength: 5/5 RUE, 5/5 RLE, 5/5 LUE, 5/5 LLE Normal bulk and tone Sensory function Grossly intact Cerebellar No visible tremors Reflex function 2/4 symmetric throughout Down going plantar response bilaterally Gait Not tested DATA Lab Results Component Value Date WBC 7.4 08/07/2022 RBC 5.47 08/07/2022 HGB 15.6 08/07/2022 HCT 45.6 08/07/2022 PLT 215 08/07/2022 NA 139 08/07/2022 K 4.0 08/07/2022 CL 102 08/07/2022 CREATININE 0.94 08/07/2022 BUN 12 08/07/2022 CO2 26 08/07/2022 DIAGNOSTIC DATA: LTME (08/07 - Day 1 & 2: During this day of recording no events were recorded. The interictal EEG was abnormal due to frequent L anterior mid temporal sharp waves which conferred an increased risk for focal onset seizures. There was activation of these sharp wave discharges during behavioral sleep RECENT DATA: MRI BRAIN (11/28/2021): No acute intracranial abnormality EEG (11/29/2021): Normal IMPRESSION: 27 y.o. male admitted for Elective LTME to capture and characterize his typical episodes. LTME - requent L anterior mid temporal sharp waves. No clinical seizures reported He was taking Trileptal 600 mg BID & Lamictal 300 mg BID at home PLAN: Continue LTME Tapering down the dose of Trileptal to 150 mg BID PO x 2 doses & then stop. Continue Lamictal 300 mg BID PO DVT Px; Lovenox 40 mg SC QD Will follow Please note that this note was generated using a voice recognition dictation software. Although every effort was made to ensure the accuracy of this automated storage worker, some errors in storage worker may have occurred. * Tisha Peters - 08/07/2022 5:32 PM EST ALTM started [facility] [employer] Work Phone: [phone]) 657-933109-15-2022 NoteSperm Rapid ProgressiveSeptember 2021 9:00amTNPTest not performedGerman Hospital [address] [facility] [id number] Medical Specialty Hospital - TrumbullComment on above:Test not [id number] NoteSperm Non-ProgressiveSeptember 2021 9:00amTNPTest not performedGerman Hospital [address] [facility] [id number] Medical Specialty Hospital - TrumbullComment on above:Test not [id number] History of Present illness Narrative* Maritza Romo MD - 02/02/2022 6:12 AM EDT Images from the original note were not included. EMERGENCY TRIAGE, TREAT AND TRANSPORT (ET3) DOCUMENTATION OF TELEHEALTH VISIT Date / Time: 02/02/2022599 Name: Corey Alonso : 1995 SSN: [id number] EMS Agency: [facility] [x] Verbal consent obtained [] Implied consent - patient with potential emergency medical condition requiring assessment of capacity to refuse treatment and/or transport VITAL SIGNS: see flowsheet documentation Reason for Telehealth Visit: Chief Complaint Patient presents with Seizures Seizure History of Present Ilness: Patient is a 26-year-old male, reports left knee when her left elbow who had a seizure this morning. History provided by the patient as states was sleeping side when she woke up to the sound of him choking, and he was tense and shaking in bed next to her. He bit his tongue and was bleeding. Bleeding controlled. called EMS. Seizure lasted approximately 10-15 minutes resolved just prior to EMS arrival. Patient reports he has a seizure every 2 months approximately, he has been diagnosed with epilepsy he follows with a neurologist Dr. Granado. He states he has not missed any of his medications. Patient reports he feels well now. Asymptomatic currently. He does not want to go to the ER via ambulance Denies recent illness drug or alcohol use. Additional pertinent PMHx, SocHx, FamHx: PMH: epilepsy Soc: lives with and child Review of Systems: Denies the following: F/c, cough rhinorrhea congestion, chest pain shortness of breath, abdominal pain nausea vomiting diarrhea. No headache vision change weakness numbness. No trauma. Exam: General: Awake, no distress ENT: normocephalic, atraumatic, no oropharyngeal bleeding now Pulmonary: No respiratory distress, equal and symmetric cw rise and fall Cardiovascular: Well perfused Neurologic: Oriented to person, place, time and events. Moving all extremities equally. GCS 15. No gross focal deficit Psychiatric: Appropriate. Good insight and judgement. - no signs trauma BP 128/82 Pulse 96 Temp 98 F (36.7 C) Resp 18 SpO2 98% Medical Decision Making: Patient is a 26-year-old male past medical history of epilepsy with breakthrough seizure today. Currently at baseline. Is compliant with his medications. Low suspicion acute emergent etiology to patient's breakthrough seizure. No sign of trauma or infection low suspicion tox. Discussed with patientoptions for further caret, he can call his neurologist at 7:00 a.m., verses transport to the ED via private car the his Patient verbalized understanding he will call his neurologist at 7:00 a.m.. His will stay with him and if he has a seizure again will call EMS. Reviewed reasons to call EMS. Reviewed outpatient follow- up. Reviewed med compliance importance. Disposition Supported by Telehealth Assessment: ET3 transport decisions: Other (see below) EMS Disposition Reported: Same ET3 Encounter Completed by: Maritza Romo MD documented in this [id number] Miscellaneous Notes* Telephone Encounter - Won Huerta MD - 11/23/2021 5:27 PM EDT Called to discuss results Remains azoospermic - suspected obstructive process Discussed next steps - TESE with IVF He will consider this and let us know All questions answered RTC prn Won Huerta MD, PhD documented in this encounterDet[facility]02-16-2022 NoteHNO ID: [id number] Author: Domi Carrera MD Service: ? Author Type: Physician Type: Progress Notes Filed: 09/13/2021 1:27 PM Note Text: Post Op S/p TURED 08/31/21 Voiding well Has not ejaculated since Occasional hematuria Plan for post op SA Disc unlikely that he has TONY based on findings If repeat SA neg, will need TESE+IVF Domi Carrera, [facility]02-03-2022 NoteHNO ID: [id number] Author: Tung Macias MD Service: Anesthesiology Author Type: Anesthesiologist Type: Anesthesia Procedure Notes Filed: 09/01/2021 6:32 AM Note Text: ANESTHESIOLOGY PROCEDURE NOTE Airway General Information Procedure Start Time/Medication Administration: 08/31/2021 1:10 PM Patient location during procedure: OR Timeout Performed Pre-procedure: timeout performed Consent Obtained: Yes Patient identity confirmed: arm band and patient Staffing Anesthesiologist: Tung Macias MD UTILIZATION REVIEW RN: Rubi Javier APRN.UTILIZATION REVIEW RN Performed by: KARLA Indications and Patient Condition Preoxygenated: yes Patient position: sniffing Manual In-Line Stabilization: No Difficult Mask: No Indications for airway management: anesthesia anesthesia circuit Method: asleep Cricoid Pressure: No Final Airway Details Final airway type: supraglottic airway Number of attempts at approach: 1 Final Supraglottic Airway: Size 1 Seal Adequate: yes Failed airway: no Unrecognized esophageal intubation: no Airway not difficult SIGNATURE: Rubi Javier APRN.UTILIZATION REVIEW RN PATIENT NAME: Corey Alonso III DATE: August 31, 2021 TIME: 1:16 PM CSN: [id number] NoteHNO ID: [id number] Author: Domi Carrera MD Service: ? 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 Still needs to get CF testing. 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 Also discussed sperm retrieval with IVF directly. Will need to find out if TURED covered by insurance. Domi Carrera MD I spent a total of 50 minutes on the date of the service which included preparing to see the patient, [id number] patient care and completing clinical documentation. Domi Carrera, [facility]06-25-2021 NoteHNO ID: [id number] Author: Domi Carrera MD Service: ? Author Type: Physician Type: Progress Notes Filed: 01/20/2021 2:15 PM Note Text: Referred by: Emeli Chi, PUMPER GAUGER APPRENTICE [address] [facility] [address] 01/20/2021 CC: failure to conceive. 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 He has no ejaculate. Has had evaluation and told obstructed on R and absent on L. 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 He had some testicular pain and had US. He has no other children with current partner. No hot tubs. No exposure to gonadotoxins. He has previous surgeries - ?office cysto. Has used Testosterone in the past (illicit or prescribed) - he is unsure when he stopped it, says a long time ago. He says 2 months ago.. Underwent puberty at the same time as peers. No febrile illnesses within 3-6 months of his semen analysis. MRI: FINDINGS: The testicles are homogeneous in signal intensity bilaterally. ?No MR evidence of an intratesticular mass. ?Spermatic cord is within normal limits as well as the epididymis by MRI evaluation. No penile abnormality is identified. ?The urinary bladder is unremarkable. ? Prostate gland is within normal limits given the large qxxwa-zo-khyo evaluation. ?The left seminal vesicle is not identified. ?The right seminal vesicle is dilated and filled with proteinaceous/hemorrhagic contents. ?Most likely the adjacent tubular structure represents the vas deferens but large udtib-ke-qvic evaluation is suboptimal to clarify the anatomy. Localizer images positively document the right kidney, however the left kidney is not identified in the riveu-or-jjtc. IMPRESSION: * ?Dilated, hemorrhagic/proteinaceous filled, right seminal vesicle and possible the associated vas deferens. ? * ?Inconspicuous left seminal vesicle and left kidney. Previous fertility treatments: Medications: none Fertility history: Prior children: none Prior Semen analyses: none Female factor eval: (she is present) Age 24 yrs G0P) Irregular menses. 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 Prior fertility treatments: none Hormonal profile: No results found for: TESTOST No results found for: TESTFREE No results found for: FSH Genitourinary history: Scrotal pain: yes, infrequent Hx Mumps orchitis, trauma, or undescended testis: none Hx stone disease: none Hx UTI/prostatitis/epididimitis/STI: none ROS: Sexual frequency/libido: intact, no ED Urinary sx: none Hematuria: none Exposure to Medications known to cause infertility: No Chemotherapy: No Radiation: No Antihypertensives Nifedipine No Spirinolactone No Antiinflammatories Colchicine No Antibiotics Sulfasalazine No Nitrofurantoin No Tetracycline No Co-trimazole No Chloraquine No Minocycline No Anti-depressants Paroxetine No Fluoxetine No 5ARI: No Antiandrogens: Ketoconazole: No H2 blockers No GnRH analogues No Opiates: No Anti-psychotics Pastoria No Chlorpromazine No Androgens No Alpha-blockers No PMH None PSH Cystoscopy No current outpatient medications on file. No current facility-administered medications for this visit. Supplements: none Allergies: Patient has no allergy information on record. Family Hx: Denies history of infertility in family members. Denies history of cystic fibrosis in family. 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 No headaches. Sense of smell intact Neck: No masses or pain Chest: No SOB or cough. No recurrent pneumonia, bronchitis, sinustitis CVS: No chest pains or palpatations. No hx of cardiovascular disease. GI: No nausea, vomiting or abdominal pain Neurologic: No weakness or sensory changes : see above Musculoskeletal: No muscle weakness, chronic back pain Heme/lymph: No easy bleeding/brusing Physical Exam: Constitutional: Well masculinized, well nourished male Psychiatric: euthymic, NAD Neurologic: AANDOx3. Cranial Eyes: EOMI, peripheral vision intact ENT: supple, no masses, adenopathy or thyromegaly CV: Hemodynamically stable Resp: normal effort, no SOB Abdomen: soft, NT, no mass, no hepatosplenomegaly Musculoskeletal: No gynecomastia. No deformities, edema, clubbing Skin: Skin color, texture, turgor normal. No rashes or lesions Heme/lymph: No bruises or lymphadenopathy : Inguinal: No lesions, adenopathy, or hernias Phallus: normal, circumcised, no lesions Meatus: orthotopic, patent, no discharge Scrotum: no lesions, normal rugae Testes: Descended, nontender, no masses bilat. Right: 18 ccs Left:18 ccs Epididymides: Right palp, small head nontender Left palp, sm (more content not included)...[facility] note* Diagnosis Seizure (HCC)- Primary Other convulsions [facility] noteNo assessment information availableGerman [facility] Work Phone: Evaluation note* Diagnosis Partial symptomatic epilepsy with complex partial seizures, intractable, without status epilepticus (HCC)- Primary Seizure-like activity (HCC) Other convulsions documented in this encounter [facility] Work Phone: Hospital course Narrative No data available for this section [facility] No data available for this section [facility] Summary Purpose Family History No Family History Records FoundNo Family History Records FoundNo Family History Records FoundNo Family History Records FoundNo Family History Records FoundNo Family History Records FoundNo Family History Records FoundNo Family History Records FoundNo Family History Records Found Advance Directives No Advanced Directives Records FoundDocuments on File Type Date Recorded 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 Advance Directive(s) 07/17/2021 12:20 PM Advance Directive Response Recorded Date/ Time Advance Directives No March 3:52pm Latest Code Status on File Code Status Date Activated Date Inactivated Comments Full Code 08/07/2022 3:31 PM Full Code 08/07/2022 3:31 PM 08/07/2022 3:31 PM Chief Complaint and Reason for Visit Chief Complaint fertility Additional Source Comments (unrecognized sect ion and content) No Status Records FoundNo Status Records FoundNo Status Records FoundNo Status Records FoundNo Status Records FoundNo Status Records FoundNo Status Records FoundNo Status Records FoundNo Status Records Found INFORMATION SOURCE (unrecogn ized section and content) DATE CREATED AUTHOR 01/22/2018 [facility] DATE CREATED AUTHOR AUTHOR'S ORGANIZ ATION 09/01/2021 [facility] DATE CREATED AUTHOR AUTHOR'S ORGANIZ ATION 12/05/2021 [facility] DATE CREATED AUTHOR AUTHOR'S ORGANIZ ATION 01/05/[address] [facility] DATE CREATED AUTHOR AUTHOR'S ORGANIZ ATION 02/15/2022 [facility] DATE CREATED AUTHOR AUTHOR'S ORGANIZ ATION 04/27/2022 [facility] DATE CREATED AUTHOR AUTHOR'S ORGANIZ ATION 09/26/2022 [facility] DATE CREATED AUTHOR AUTHOR'S ORGANIZ ATION 03/31/2023 [facility] DATE CREATED AUTHOR AUTHOR'S ORGANIZ ATION 05/31/2023 [facility] Source Comments (unrecognize d section and content) In the event this informatio n is protected by the Federal Confidentiality of Alcohol and Drug Abuse Patient Records regulations: The Federal rules restrict any use of the information to criminally investigate or prosecute any alcohol or drug abuse patient.[facility] Reason for Visit (unrecogniz ed section and content) Reason Comments Results Reason Comments Seizures Specialty Diagnoses / Procedures Referred By Randy t Referred To Contact Diagnoses Partial symptomatic epilepsy with complex partial seizures, intractable, without status epilepticus (HCC) Seizure-like activity (HCC) partial symptomatic epilepsy w/ complex partial seizures intractable w/o status epilepticus needing LTME Chavez Lee DO [address] [facility] [address] [place] [address] [facility] [address] [place] [address] Referral ID Status Reason Start Date Expiration Date Visits Re quested Visits Authorized [id number] 1 1 Care Teams (unrecognized sec tion and content) [employer] Exchange Architect Relationship Specialty Start Date End Date Emeli Chi, PUMPER GAUGER APPRENTICE [address] [place] [address] PCP - General Internal Medicine 07/17/21 Team Status: Inactive Member Role Status Dates Emeli Chi NP-Priyank Primary Care Provider Active Derek Burks Attending Provider Active Team Status: Active Member Role Status Dates Emeli Chi NP-C Primary Care Provider Active [employer] Architect Relationship Specialty Start Date End Date Emeli Chi [address] [place] [address] PCP - General 11/16/21 Goals (unrecognized section and content) Goals may be documented in a n alternate section No data available for this section No data available for this section Scheduled Active and Recently Administ ered Medications (unrecognized section and content) Medication Order 08/09/2022 08/10/2022 08/11/2022 enoxaparin (LOVENOX) injection 40 mg 40 mg, SubCUTAneous, EVERY 24 HOURS, First dose on Sat08/07/22 at 1800, Until Discontinued, Indication of Use: Prophylaxis-DVT/PE 1830 (Given - Provider: Brittaney Scott RN) 1813 (Not Given - Provider: Wanda Moulton RN - Reason: Patient/family refused) 1800 (Due) lamoTRIgine (LAMICTAL) tablet 100 mg (CANCELED) 100 mg, Oral, 2 TIMES DAILY, First dose (after last modification) on Sat08/07/22 at 1900, Until Discontinued, TO BE GIVEN AT 0700 AND 1900, TO BE GIVEN AT 0700 AND 1900 0647 (Given - Provider: Kash Juarez RN)1831 (Given - Provider: Brittaney Scott RN) 0634 (Given - Provider: Eli Michel RN) lamoTRIgine (LAMICTAL) tablet 200 mg (CANCELED) 200 mg, Oral, 2 TIMES DAILY, First dose (after last modification) on Sat08/07/22 at 1900, Until Discontinued, TO BE GIVEN AT 0700 AND 1900, TO BE GIVEN AT 0700 AND 1900 0647 (Given - Provider: Kash Juarez RN)1831 (Given - Provider: Brittaney Scott RN) 0634 (Given - Provider: Eli Michel RN) lamoTRIgine (LAMICTAL) tablet 300 mg 300 mg, Oral, DAILY, First dose on Sat08/11/22 at 1330, Until Discontinued, STAT 1445 (Given - Provider: Brittaney Scott RN) OXcarbazepine (TRILEPTAL) tablet 150 mg (COMPLETED) 150 mg, Oral, 2 TIMES DAILY, 2 doses, First dose on Sat08/08/22 at 2100, Last dose on Sat08/09/22 at 0900 0847 (Given - Provider: Brittaney Scott RN) OXcarbazepine (TRILEPTAL) tablet 600 mg 600 mg, Oral, 2 TIMES DAILY, First dose on Sat08/11/22 at 1330, Until Discontinued, STAT 1444 (Given - Provider: Brittaney Scott RN)2100 (Due) sodium chloride flush 0.9 % injection 5-40 mL 5-40 mL, IntraVENous, EVERY 12 HOURS SCHEDULED (2 times per day), First dose on Sat08/07/22 at 2100, Until Discontinued, For Line Patency: Peripheral IV = 5 mL; Midline or Central Line = 10 mL/lumen. If following IV push medication, administer flush at same rate as the IV push. Flush volume is determined by type of infusion therapy being given. For non-viscous solutions use: Peripheral IV = 5 mL Midline or Central Line = 10 mL/lumen For viscous solutions (i.e. blood components, parenteral nutrition, contrast media, or after obtaining blood sample) use: Peripheral IV = 10 mL Midline or Central Line = 20 mL/lumen 0847 (Given - Provider: Brittaney Scott RN)2109 (Given - Provider: Eli Michel RN) 09 (Given - Provider: Wanda Moulton RN)2109 (Not Given - Provider: Qian Christensen RN - Reason: Patient/family refused) 104 (Given - Provider: Brittaney Scott RN)2099 (Due) PRN Medication Order 08/09/2022 08/10/2022 08/11/2022 0.9 % sodium chloride infusion IntraVENous, at 5-250 mL/hr, PRN, if patient receiving piggyback infusions and maintenance fluids are not ordered OR KVO fluids to protect IV site / prevent frequent line interruptions/ long duration, Starting on Sat08/07/22 at 1528, For piggyback infusion, administer at same rate as piggyback for a total of 25 mL. Enter 25 mL into dose field and piggyback rate into rate field of order. If piggyback is infusing at a rate less than 100 mL/hr, enter 25 mL into dose field and 100 mL/hr into rate field of order. For KVO fluids, enter rate of 20 mL/hr or less into rate field of order. acetaminophen (TYLENOL) suppository 650 mg(Linked Group 1) 650 mg, Rectal, EVERY 6 HOURS PRN, Starting on Sat08/07/22 at 1528, Until Discontinued, Pain Mild (1-3), Fever, For temp greater than 100.4 F (38 C), Administer if oral route cannot be used. acetaminophen (TYLENOL) tablet 650 mg(Linked Group 1) 650 mg, Oral, EVERY 6 HOURS PRN, Starting on Sat08/07/22 at 1528, Until Discontinued, Pain Mild (1-3), Fever, For temp greater than 100.4 F (38 C), Maximum dose of acetaminophen is 4000 mg from all sources in 24 hours. LORazepam (ATIVAN) injection 1 mg 1 mg, IntraVENous, EVERY 5 MIN PRN, Starting on Sat08/07/22 at 1528, Until Discontinued, Seizures, may repeat x 1 (1mg) dose if seizure continues in a 4 hour period, For generalized seizures. Notify physician if administered for seizure. Max dose of 2 mg in 4 hour period. ondansetron (ZOFRAN) injection 4 mg(Linked Group 2) 4 mg, IntraVENous, EVERY 6 HOURS PRN, Starting on Sat08/07/22 at 1528, Until Discontinued, Nausea, Vomiting, Administer if oral route cannot be used. ondansetron (ZOFRAN-ODT) disintegrating tablet 4 mg(Linked Group 2) 4 mg, Oral, EVERY 8 HOURS PRN, Starting on Sat08/07/22 at 1528, Until Discontinued, Nausea, Vomiting polyethylene glycol (GLYCOLAX) packet 17 g 17 g, Oral, DAILY PRN, Starting on Sat08/07/22 at 1528, Until Discontinued, Constipation, First line therapy for constipation sodium chloride flush 0.9 % injection 5-40 mL 5-40 mL, IntraVENous, PRN, Starting on Sat08/07/22 at 1528, Until Discontinued, Line Care, After every IV line use, For Line Patency: Peripheral IV = 5 mL; Midline or Central Line = 10 mL/lumen. If following IV push medication, administer flush at same rate as the IV push. Flush volume is determined by type of infusion therapy being given. For non-viscous solutions use: Peripheral IV = 5 mL Midline or Central Line = 10 mL/lumen For viscous solutions (i.e. blood components, parenteral nutrition, contrast media, or after obtaining blood sample) use: Peripheral IV = 10 mL Midline or Central Line = 20 mL/lumen Linked Groups Order Group 1: acetaminophen (TYLENOL) tablet 650 mgJump to med 650 mg, Oral, EVERY 6 HOURS PRN, Starting on Sat08/07/22 at 1528, Until Discontinued, Pain Mild (1-3), Fever, For temp greater than 100.4 F (38 C)
Maximum dose of acetaminophen is 4000 mg from all sources in 24 hours.
Or acetaminophen (TYLENOL) suppository 650 mgJump to med 650 mg, Rectal, EVERY 6 HOURS PRN, Starting on Sat08/07/22 at 1528, Until Discontinued, Pain Mild (1-3), Fever, For temp greater than 100.4 F (38 C)
Administer if oral route cannot be used.
Group 2: ondansetron (ZOFRAN-ODT) disintegrating tablet 4 mgJump to med 4 mg, Oral, EVERY 8 HOURS PRN, Starting on Sat08/07/22 at 1528, Until Discontinued, Nausea, Vomiting Or ondansetron (ZOFRAN) injection 4 mgJump to med 4 mg, IntraVENous, EVERY 6 HOURS PRN, Starting on Sat08/07/22 at 1528, Until Discontinued, Nausea, Vomiting
Administer if oral route cannot be used.
FOR RECORDS PERTAINING TO PATIENTS WHO ARE OR HAVE BEEN ENROLLED IN A CHEMICAL DEPENDENCY/SUBSTANCEABUSE PROGRAM, SOME INFORMATION MAY BE OMITTED. This clinical summary was aggregated from multiple sources. Caution should be exercised in using it in the provision of clinical care. This summary normalizes information from multiple sources, and as a consequence, information in this document may materially change the coding, format and clinical context of patient data. In addition, data may be omitted in some cases. CLINICAL DECISIONS SHOULD BE BASED ON THE PRIMARY CLINICAL RECORDS. [facility] [employer] provides no warranty or guarantee of the accuracy or completeness of information in this document.
== END 2023-09-02 13:41 | disposition home or self-care (01) ==
PROVIDERS: Emergency Provider Emergency Medicine; PCP Nurse Practitioner Family
DX: G40.909 Epilepsy, unspecified, not intractable, without status epilepticus (principal); Z79.899 Other long term (current) drug therapy
CPT/HCPCS: 93005; 99283

== ENCOUNTER 2023-10-27 23:16 | Emergency (ER) | payer OTHER, SELFPAY ==
--- OUTSIDE RECORDS SUMMARY | 2023-10-27 23:27 | XMS_ITS | CCD ---
Author Organization [facility] Care Team Providers Care Miner Name Role Phone Arti JACINTO Emeli S Primary Care Provider HANS GRANADO Referring Unavailab ricky [facility] EMELI S Primary Care Unavailable HANS GRANADO Referring Unavailab ricky [facility] EMELI S Primary Care Unavailable Unavailable Primary Care Provider Unavailabl e PROVIDER, UNKNOWN Attending Unavailable PROVIDER, UNKNOWN Admitting Unavailable Emeli Chi Norma Primary Care Unavailable Derek Burks Attending Unavailable Derek Burks Admitting Unavailable TAQUERIA Chi Norma Primary Care Provider Derek Burks Attending Provider Arti Emeli S Primary Care Provider [phone] ARTI EMELI Primary Care Unavailable REGINA, DR BREE Meneses Attending Unavailabl mariangel TAPIA, DR BREE Meneses Admitting Unavailabl mariangel TAPIA, DR BREE Meneses Consulting Unavailabl e Trinity Trinh Consulting Unavailable LALO, JOSIAH Consulting Unavailable LALO, JOSIAH Attending Unavailable LALO, JOSIAH Admitting Unavailable ARTI, EMELI Primary Care Unavailable LALO, JOSIAH Consulting Unavailable LALO, JOSIAH Attending Unavailable LALO, JOSIAH Admitting Unavailable ARTI, EMELI Primary Care Unavailable BRIAN LAM Attending Unavailable SARAI Trujillo, BRIAN Admitting Unavailable ARTI, EMELI Primary Care Unavailable BRIAN LAM Consulting Unavailable LALO, JOSIAH Attending Unavailable LALO, JOSIAH Admitting Unavailable LALO, JOSIAH Consulting Unavailable ARTI, EMELI Primary Care Unavailable RUTH, DR SHARON Wilson Attending Unavailable RUTH, DR SHARON Wilson Admitting Unavailable ARTI, EMELI Primary Care Unavailable DR SHARON MICHEL Consulting Unavailable JOSE CRUZ BRAGA Consulting Unavailable LALO, JOSIAH Attending Unavailable LALO, JOSIAH Admitting Unavailable LALO, JOSIAH Consulting Unavailable ARTI, EMELI Primary Care Unavailable ERNESTO GIRON Consulting Unavailable TRINITY KING Consulting Unavailable HAY ., DR MIXON Attending Unavailable HAY ., DR MIXON Admitting Unavailable ARTI, EMELI Primary Care Unavailable HAY ., DR MIXON Consulting Unavailable MISC, DR GARDNER Consulting Unavailable MISC, DR GARDNER Attending Unavailable MISC, DR GARDNER Admitting Unavailable ARTI, EMELI Primary Care Unavailable MISC, DOCTOR Admitting Unavailable MISC, DOCTOR Consulting Unavailable MISC, DOCTOR Attending Unavailable ARTI, EMELI Primary Care Unavailable MISC, DOCTOR Admitting Unavailable MISC, DR GARDNER Consulting Unavailable MISC, DR DOCTOR Attending Unavailable ARTI, EMELI Primary Care [...] Unavailable [facility]I [facility] S Primary Care Physician Junior Raygoza Attending Unavailable Ramón Carrizales Attending Unavailable CHAVEZ LEE Attending Unavailable HANS RGANADO Referring Unavailab le [facility]I [facility] Primary Care Unavailable CHAVEZ LEE Admitting Unavailable [...] Indication of Use: Prophylaxis-DVT/PE polyethylene glycol 3350 97998 mg powder for oral solution (1 source) [...] 02-02-2022 Episodic Other aftercare (1 source) Other skilled nursing (current) drug therapy; Translations: [OTH SENIOR CARE CURRENT DRUG THERAPY] Onset: 06-13-2022 Episodic Other injuries and conditions due to external causes (1 source) Unspecified injury of head, initial encounter; Translations: [UNSPECIFIED INJURY HEAD INITIAL ENC] Onset: 01-02-2022 Episodic Results Test Name Value Interpretation Reference Range Facility Consent for Treatmenton Consent for Treatment [id number] 30 [id number] #1.00CD:127 Normal [facility] Discharge Instructionson Discharge Instructions [id number] 1#1.00CD:[address] [facility] ED Clinical Summaryon 2022 ED Clinical Summary [address] [address] ED Clinical Summary Person Information Name: COREY ALONSO III [place] Age: 27 Years : 1995 Sex: Male Language: Pakistani PCP: EMELI CHI CNP Marital Status: Phone: [phone] Visit Id: Visit Reason: Wound reevaluation with [...] 03/31/2023 17:04:18 03/31/2023 17:04:18 03/31/2023 17:04:18 ADDRESS: [address] [place] [address] [id number] PHYS DOC NOTES: MEDICAL INFORMATION: Prescriptions Given: Medications to Continue with No Changes Other Medications lamotrigine (lamotrigine 100 mg oral tablet) 2 times a day. oxcarbazepine (Trileptal) By Mouth 2 times a day. PATIENT EDUCATION INFORMATION: Instructions: Wound Dehiscence Follow up: With: Address: When: EMELI [facility]I [address] [facility] [place] [address] [phone] Business (1) In 3 days 04/03/2023 Comments: [...] sutures are removed. DIAGNOSIS: Wound dehiscence Normal [facility] ED Note-Physicianon 03-31-20 ED Note-Physician Basic Information Time Seen: Ramón Carrizales DO 03/31/2023 16:48 Chief Complaint Had stitches at [place] 2 days ago on L thumb. States [...] Contact Information EM[facility]I [facility] In 3 days 04/03/2023 EDT [address] [facility] [place] [address] [phone] Business (1) Additional Instructions: Call the office [...] Diagnostic Results No qualifying data available. Normal [facility] Comment on above: Result Comment: Elec [...] these instructions at home: Medicines ? Take hxhw-epz-ybopbdo and prescription medicines only as told by [...] and water are not available, use hand oiling machine operator. ? Gently wash the wound area with [...] Revised: 12 (more content not included)... Normal [facility] ED Patient Summaryon 023 ED Patient Summary [place] [id number] Patient Discharge Instructions Person Information Name: COREY LAONSO III Age: 27 Years Arrival Date: 03/31/2023 16:41:41 Discharge Diagnosis: Wound dehiscence Primary Care Physician: EMELI [facility]I CNP Provider Information Primary Provider: Ramón Carrizales DO Advanced Out Patient Therapist:None The exam and treatment you received in the Emergency Department were for an urgent problem and are not intended as complete care. It is important that you follow up with a doctor, nurse practitioner, or physician?s laundry assistant for ongoing care. If your symptoms [...] With: Address: When: EMELI CHI [address] [place] [facility] [address] [phone] Business (1) In 3 days 04/03/2023 Comments: [...] opioids can be used to help relieve tumkfiub-kc-rdhbit pain and are often prescribed following a [...] ? Stor (more content not included)... Normal [facility] EMS Documentationon 10-10-19 EMS Documentation Please click on link to see report pdfCD:[id number] [id number] xBWM9TfExCCRiCOO7MrT wIFIgMiAw JMZuIYY7BJCoPIMoBSO7 ZXZhBUOwY7Dxi3MWj5xw QJ6oCLDmUQC9EWHsVUY0 LHHzYU7eA5HzaNWe MTAwNCAwIFIvSUQgMTAw TAEsAJWwCTRsbYUHz4wj EI0gEBSrMVX6EXMbPUD0 MCDmZL8hQUcvEV1e L8UahkVysLG7RaPeCRHX O6Vob258ptQomzs6S0Tj cG3iH8AxL2O2OC3PAvKq JLe2BUOjHo7+L0Zv dlR1QG0OPEZyRKraPPIu Ve1PXVEqSKi3WZLxJg6R TAIvRLfpHQOxZf0TDQOk VHHsAYZED9MAAGRi NSAwIFI+Sf4Myr7pI2G4 Nw9ZKKAxLBV2qP2zLSq9 K7I5AZTzVHRbUTZiHTMB F6bPQfwhS7PkPGQ6 NiAwIFI+Kl5Ba0WcxMWv YQ7LaNX5K3EEQCNihlXr EJTvN0K6lYYjHVWoJR1H AVUrQ3I+PgplbmRv LtoAKzSeEI0nstf8PR3Z QX9gxBviPwE1ZNF+PnN0 wnNndNeuX6XiIERqSPMg SLElymwpNCB4ZCLv LFbuBjl7DY54QJIhxcAR PjutQDXxU35JIJLpIxt1 KIB1GoEjCN56TCPfBCeh VeOgZGR8TV6aUAYd Nqe5GEKjYws6ENNyMqAW ETv2DnE9PHH4UZ9lRIJs Qwc5GCIqAxk3XBKgIjOF TIPjNvc5VmJ2PPC2 MjNhZH08UDSmPYbxRnUl OAS9JLM5GbViTSTfHzYh sbRBLcbkTOW6WTTpAmZs FN98EVRwRYOmiyNL Evg1EXLbCtKuBkd4KrC0 EYAkVrHbTPM6EVUlZtSC OJ88GHtmRJSjnsovVP09 FMT1AZMgPKFrYTqi MjUgLTEyIHJlCmYKMCAg g1MwVfSnMmc5OQB2Ok2m NSAyODcuMjUgLTAuNzUg cmUKZgowLjkxOCAg z8IgNyN2KHT3OKQpCRWu ODcuMjUgLTEyIHJlCmYK XKYzu6BbTtF7YHO5BEYr NwXyVmq3LeQ3UT7v Vyn0UNLiKfQGVOYmOgAv UoT5TYI5LkNqGU12SFWf MGngJaCuINL6BZ15CIW9 DtBcIF42RNYqNDid DdQpCZB1MU0eCFGkAfp1 NK02DW67TFAxDbZRYCw1 JzC2SRB0PI2sNVYcCjd4 DK71TQ58IHEbLaLJ IP38FBziWJAytspwOF57 FVO7QNkfHDW1MhQbUSKe IDSpmpLVXufoZTAjY14Q PGLiSuWoXfP7GkR0 ZTA0AR59UC5pZal8HLUf NrLECTK9PeHgKyB7SQJu Bf5oGRSaTR96NXEfKCtd LjG7Tj30XDM7LU2y NSAxMTYuMjUgLTAuNzUg xqXPYtu6KsmoQXP0KkYw MR82XCIlLWGlXFViKNxz FpB3ZiC4UdVuSX63 NSAtNTUuNSByZQpmCjAu BVY8XODjR63QXTJ3PoV8 UKVtLY5zHLAcKOEvHeBq LTEyIHJlCmYKMCAg g4UaToF8HC2aWQU2UqBh LKZ0Fts7PX2eCej1IELp TfZCYPLmIPsbDgo3VGK9 SxZwTN76DUWxINno DbEgWCYwQbQ8WcCpDFNl WoVlutPUPgplSAC3GaYk EyKnZW68RYJcFrSmMQJt EYjaGsV2QI9mKQO0 LrTaDvUyTO01NDXsOjLk TVHsHHjlStItMHI3BLWc M52RHCIcVnTcOWhvRZA7 EZ20OJ8xZfKuNIyq RfYdYTAxznrgKM18ULD2 KGksZgFcRWp5XvVrKSXf IqPjvsGUJuhySJO0Mrcz QrHsVGa3JU6kLml0 IHJlCmYKMTAgNDUzIDU3 FhYjBY74FHObHYsnWoOo PXWmDz6wWMOvKih2HI12 WRSgLSufKeF9NP0l AHJ7PlnaAeYxSP77RWYp NzUgcmUKZgowLjkxOCAg d4JeGpKbAbf8BLZmTj95 YHI1RV11OI3fGlXo MUuaPoAjEEVfrvatXV48 ERB1WJQbKnZpGVl7CsWu LTAuNzUgcmUKZgoxMCA0 YaCtQAX9QzKiBKMl NzUgcmUKZgoxMCAzODcu PmTvESu7VX7xPlr4TDAr BpZGGQWtHHJoXvBqVU10 NSAtNDYuNSByZQpm LuS5LR8yEBK4JtYbWCOr Twc4XG14To32TEBkJgCG HF18HPzjYCFjsjfbND97 QVH2TbRnCiZmTNi5 LjUgLTEyIHJlCmYKMCAg n3QrCqMtWvb7RDQkYX17 MXA1JW85OF1vKba4CDBe CzBSXB03OPtoSTDs bgoxNiAzNzcuMjUgNTYz SiJ9KG2lZI15CZKoJqTL MYTvl2QuCbX5QQS8Om21 VEWqSy41MKPqBzAe NzUgcmUKZgowLjkxOCAg d9GeLhB0SHM4Kp36TYMu Oc32OLWjCwDlFmZbocGU EljjIYCnF01SDUZi WrKiGgH0Hcd4NWX8QgHe LTEwLjUgcmUKZgowLjkx KQOes0QePbSgUhn2TOZ6 Aj14OUM3FI57SS2g JN84VAVeHsONDYXba5Zk YwLeUZ6jHNEnYiFkMwGf MjAuMjUgLTEwLjUgcmUK TtjqWxqoHRMiv9Iv NkBuYY7rQMPyCwLvUfTk MjAuMjUgLTEwLjUgcmUK SacbGKXwP84KHCHsWpDf UwT6Oif8ODX8UvDf LTEwLjUgcmUKZgowLjkx UPMrw9BfUsNnZD68NMS4 Bl96UPY3AA94YM6qQI25 NJYpDwSKROGuk7Fa AuG6LZOqTjKhAgYiUmhf NSAtMTAuNSByZQpmCjAu QDL9JDNkR05DEJoyQFN1 Jq05OMPbEJ11DQ6a SX28TAMpGuVXRJRzl1Eh SmEhRR46AYX2Bd71SFH0 MiAtMTAuNSByZQpmCjAu CJA3PIAdV73PRxI5 SlEmKgE7Ddn7FXPjNS1e OK50YRUqMiETMJBio1Wz McX2CO19IMD6Lu68ABZh KJ75XS0cGB93VZMz KcRZBV68MWojNJDwdokd NTEuNSAzNjYuNzUgMjUu NSAtMTAuNSByZQpmCjEg IHNjbgoyNzcgMzY2 Bsh4HWUaGj3uOWKeRUTy QNYuOXwfUtWsOZS1AAAm B36GVjp2ZBL4Uz97ODQc MTYuMjUgLTEwLjUg tpRZBshkSDCtO18ARlsr NmG8UQB7Jq81SKEcGM40 FT9fBL73FJXpMqIIRE07 MTggIHNjbgozOTMu OjDgYrJ8Vgt3NFI3PlWq LTEwLjUgcmUKZgoxICBz Q71MXGZaIvw1TWQ6Pj35 UWJ2XaIgTRWqQVLn HApoPpIdGMP1JZHeU05W REKpUpm3UPJ7Ny77MLX5 MyAtMTAuNSByZQpmCjEg HRQcptg5EEVxEuYh QhT0Ann9UJH6VuXmUFMs LjUgcmUKZgowLjkxOCAg g9GhHlY2QN14EUAjQnHv NzUgMjguNSAtMTAu NSByZQpmCjEgIHNjbgo1 STHbVcMtKsJ3Qew6HYOr LjUgLTEwLjUgcmUKZgow SvpgSOTns5MyXoCj Bx5uKLAiQrIeJsVcYoBg NSAtMTAuNSByZQpmCjEg OPLqawb9QWLbNbGiJmD2 Avf4IUR2QiAaSHMp LjUgcmUKZgowLjkxOCAg f1LwTaJ4DZ38CFYhDxGx NzUgMjUuNSAtMTAuNSBy ZQpmCjEgIHNjbgo1 DoMaGhKvMtF5Rnu2FDlb LTEwLjUgcmUKZgowLjkx ERIqi1NaMkK3QJ3cTDTy NjYuNzUgOSAtMTAu NSByZQpmCjEgIHNjbgo1 Si66AINfLCYfGcWqFCef NSAtMjAuMjUgcmUKZgow KunlXUOfk5QpFqXw Twi1ISG8Ss0bJHJ8CO36 ML3qRG4gJFNpHNafBfIp IHNjbgoxMTEuMjUgMzU2 ZuR5JQMaPdP3LR7e KL5tTAQvYUfdOyBoXYD0 THDxP09JQVTkLgP0BNR4 Ut0iXLQiEG9jWZDbZhZd MjUgcmUKZgoxICBz G73XMWDqMcQpSdO1HbK4 UBN5CeWwNKQdBgG4YEXz EuEDQE00PWwcGRLskbol MzEuNSAzNTYuMjUg NDkuNSAtMjAuMjUgcmUK CsbyGEErG87ECHhkRRO9 Tx4dPOKbLI92ZG5lKS5g NSByZQpmCjAuOTE4 TUBeL75GGTvpKOY2Nm7y CUMiZN96LB7mCE6qANTj ZQpmCjEgIHNjbgoyMDku NSAzNTYuMjUgNDIg IJKmAbC0PULlStTHLL97 MTggIHNjbgoyMDkuNSAz NTYuMjUgNDIgLTIwLjI1 ARMwBmPCBVNll2Qf ZnY3VV74TPS0Yb8yFUCf UG71XF4aMA9oEYVyOIli DrIlTQE5QTWqC03ZTqCp AmZsHoH4ZrD8PKR6 AaJkXFPxZhR5DCWgEqPR BRVnq7UaYzI2KsFsFQVp QsDdYNK4KiB4ZU1gRO4v NSByZQpmCjAuOTE4 YXVnG84RXwy7FXN9Cs9u NSAxMTYuMjUgLTIwLjI1 TCMgLrKDNJIiw2OeViS4 Ga2fPKIcAGJcIiHe MjguNSAtMjAuMjUgcmUK ZrwfBauqDZRcv7JoGpM2 Kh7xHZNmHLKsDkLlIoqw NSAtMjAuMjUgcmUK EnxgKPUzC61IYIZxHwk5 LGR6Al4kPUO4ZS87IJ6s BD8fFDExBUovMjQoWJK7 KTJtQ44PHXKzKjz5 WEA2Xa5eYSA7EI98ZO2t VR7vSIMbQNhrCwKwKOXs nvp7LUBfQeWwXqL2AyL2 SRJ5KR5zGL5wYOAd UPucPbOpFYJ1PSWuW71T SADeVsJ3HZU1Ft9hKBS5 NiAtMjAuMjUg (more content not included)... Normal [facility] EMS Documentationon 10-09-19 EMS Documentation Please click on link to see report pdfCD:[id number] xLjQNCiX5+prnDQolQUJ JfOUhUDUrMnT3QFslIlD jLN9zto9CQHqPP2YyVPA kWMN5Xm0N YSyuPCm7FCBxEO3OK7yl YEqcVRL8Mn1LcB1wFIEm liZlZODMM67yGpfaZyWw NQovVCAxODAzNDgK Tw2eYTMxXERuQEGmFIIj ICAgICAgICAgICAgICAg ICAgICAgICAgICAgICAg ICAgICAgICAgICAg ICAgICAgICAgICAgICAg ICAgICAgDQplbmRvYmoN Bk6NwPKhQy9BBmLaTuID CjAwMDAwMDAwMzIg VAPzBHKnas9TRECjPMBd DZX3YBLxFTMuUVKjDYjs VTFzVZYmTBf8DXGnBJXt MU5LFvReDAMpGVC3 EEXbNRHtSRCzsb6ADSCc MDAwMTkzNSAwMDAwMCBu ZNaoWZIsLSAaFZe9RECx ZHToSW1KEtLqJMYr XJJkBuRdUXKhTZQdzm4K MDAwMDAwMjMxNiAwMDAw MCBuDQowMDAwMDAyNDAw KPZwZKJvWV9QUkQz VFPkGAC6PTsdPULcZYEx nj0EFQOmOABqXbrlUXMd MDAwMCBuDQowMDAwMDAz WKP9BDTzIZVxQQ2D AhYnKHIxZVF6WNIwWWTs RTVlbv6XPONdBYAhPaK1 OCAwMDAwMCBuDQowMDAw TYAxVZB7BLYlLNWg GT2BAbHiFZCnTIQyQGVw JVWfPVTaei3XJFXbKWLw NDQzOSAwMDAwMCBuDQow TKQbASW6FyFoPZDk LBRfGW4YJmFyQZEhEQW1 QQwoTEIdQAVfkb8MNBUf MDAwNTExMSAwMDAwMCBu QOkgXTAnKEH5KBYg UUJrKOScLC4KUqCmEWKm BAX1JhuaYZNcXUJnjb3R MDAwMDAwOTYzOCAwMDAw MCBuDQowMDAwMDUw EhH6AZZbTSBdJZ4IZvSj MDAwODgyNDYgMDAwMDAg td5TmWVfsOdbwd1FWZjY O7tHFJf6KLgLUuzm VXGqHmR7MrYwUKtyOTFi ZJA2ZuX0AdBTLBY+Cjwz PvWOKAI1QzZLUWJeWFO1 IhevUYWMHQTSX5V1 VWQCIY6xTg5XszV7KWU6 LSVcIdfrQk0rlXKfYnUc NOTNP1OgjePwRCjAB3Jd jTArMYAcD2DZFAJ0 Wn48ZxtvnPfKTTE0GYKC IYjySY4MRpdWPjPxQIqv Zj62C2CTj9S8GbBpU7HN yUwXfkNDTCwgE6jA cBN3c1aczBjQwURNwLmc OGdJcndPalFSQUlqUHNX xC01shvUE6KnZZe9V1HK Gh2EPTyvRbCakI5Q dAcpPJW9iZ5kZWZECLbV IuazUD6XGABNBUy5TDy+ PiAgICAgICAgICAgICAg ICAgICAgICAgICAg ICAgICAgICAgICAgICAg ICAgICAgICAgICAgICAg ICAgICAgICAgICAgICAg ICAgICAgICAgICAg ICAgICAgICAgICAgICAg ICAgICAgICAgICAgICAg ICAgICAgICAgICAgICAg ICAgICAgICAgICAg ICAgICAgICAgICAgICAg ICAgICAgICAgICAgICAg ICAgICAgICAgICAgICAg ICAgICAgICAgICAg ICAgICAgICAgICAgICAg ICAgICAgICAgICAgICAg ICAgICAgICAgICAgICAg ICAgICAgICAgICAg ICAgICAgICAgICAgICAg ICAgICAgICAgICAgICAg ICAgICAgICAgICAgICAg ICAgICAgICAgICAg ICAgICAgICAgICAgICAg ICAgICAgICAgICAgICAg ICAgICAgICAgICAgICAg ICAgICAgICAgICAg ICAgICAgICAgICAgICAg ICAgICAgICAgICAgICAg ICAgICAgICAgICAgICAg ICAgICAgICAgICAg ZF5Xy5WbnrB0pnNzWHhj IWjgPDLPYd7THWvmJdKp IP5pja1JPSrRK29kxKHx YXRhIDIxIDAgUgov U9BrojHoiRdtbyPqMtFn VOXDIn3GkCQGQOleE5G3 gZppMIJkEGafIKVEAr3O NWvuRA5lXFFsFUVz Ya6sGQenKLRpFVArAjTi JEEKJw2NkGRvGM5EXNEi eJ4cBo7+DQplbmRvYmoN Ie3SNpYjFVMhFhuM Awp7Dz1TbQw3NDTvO1Wg VMBbWBWam5SuLp7CLY7o xNxzZSI0Sg0IUQn9Dq9+ MYewdAOzBY5LTivx L1GlSQDsCIBuQRQbHW1Z IuFAAQpTgGwhIOYCizKu C2Rg+NwAjD1siFgDmEHV AOGv3NJCLgDo34As DlUEoouA+QSSDzWh8m+k a9J0VWGhXJE5kLKGDP7W 9aaAcm2EPy9QO9D0SkyT YQIJHUqYlO6XNDoA E/PVXfDlNKP4doNekQ6O HL9bz0HtHMoMWxL8JZGi d9GfFFe2HHbsM94soCRx bAWgQgPeFYJmEm0K D92wCHgqZn53YLncDLBo CnRzPHy2Zq6DP5GmpvOn gIBaCINrEYYHF9Duk030 laCwtgX1DLxcYH2l paSmlPN4WMywVYQvEyYz MjYgMCBSCj4+Cj4+Ci9U nUVmFE9FUPiwXr2+DQpl hoQeTzjKKs3HRxIx WAElLniTOrl0Wn9ZUj55 KIrfUNEiQoUkZHa8Ho4G R0QavBYggwRdTjnccBNT OCAjYCDQL0jpqzt3 bZQ0CvoqFwTfj0GbO7Lc UNh6Wy5VY6LqYTM8KXx9 Zr7RTQOaHcQ3CfUkEQDU Wm4RCj4XE3Q8FeQ8 mBAuF7Fqya7JI6S7jPZg G6eCJcwlW0FWKf9BSsT8 taNonY8CzMcnleTcVgMh MjRQMFUwtTRSMLcw BkxF3cOPT0ua9RMNk4At SdFAGCGYVCbf7EcVcKW0 r2uO1qIrRkeJyEMahgcB o9cKvC4GH0dJ6W4D XO0fz1YqAGIiADsrioIv AakFKu4XRylxJFLkPpqJ Tgv1Vl7MTOKiVf3jpHLo Av0AQTNlUe6JGpBq Qr4DEyPbAy0LOkKjNa9M LCZ1Xd8UQGJ6uaOpEv9f YSAxCj4+DQplbmRvYmoN Xx7IFtrhYNCaFxqE Wsw0Tq9ERBJnVf8ygTUx Kj2bURFaGd9+DQplbmRv IhrDAe4PLcjjRTKeVecB Idk5Fx0XUCXhNl9q xFOrEh5QJTCsAz2INjTr Ci3FDyUhId7BQjSiSl9H WCB4By9XLNI9gyMdKy1x YSAxCj4+DQplbmRv KwuFHs9VPxZnOACaFiqL Jsj7Fz0CDOPvTa9naBEd WI9DQCHEH7BxrEFzUMIH RTwUTj2Zx2ewRCKM X8Jsd7FpwjWgicMOg072 rhYlZxKfSVEJXMzwSG1g l2BwoaefK1deUW54nOU6 BDcOV7K1NaL0mPIb X4R4cHSqVt5If3YisUYk QFMuZkSzOGWTLh1SzQWz YH9It388Km1+DQplbmRv KrqMXd6RHiGtRABb LqsJChp4Md0GJJBgCh5c dUKvNJ6VXIUAM6DfdGZk UEPFBFsNEz9Sp5ipXYEL O9WCJVQ7w2QjkSlf Kb6xLJbHI21bCJUzaI9g XCsYDORksFa2tPwLK9Ku Q7mwwWT5XCqJRK9aXFpI D4O9cJEdNS2wjiIp MAo+PbnvJ9sRMW2PKSGX RYAzI1trSF54kVR6Nk0Z ZbYnDl8Vn872DZJwC2Hs cHRvciAzMiAwIFIK Y8I7AeQ3gLEsM2MBMMIc bnRUeXBlMgovVHlwZSAv Ma5lnXkeTmFgANJ7YfF6 JOQfEXy7JaKiGk1+ HLpskdZoXokPCw5UZqIl UFDhGewUFcz6Ou4Sh7Pt haFkASTuTgKhNGVlLl7A YXBIZWlnaHQgNTkx Oxv2Cpg2Cf4FWIYvTW88 DRUnZD2dRFN7BmtuOusa F8WfSoJKE5OtlzOKJa05 QKcaAXfdZvw0UGOi XB99DIOtPFS9RgGvGmXz LwI9LGT7HSZfJmKrWKag LPVfKp1Ws468WbwbYUMf HGBcQDLMAj9Wq332 DbJhZYTiNN1HYGQJD5Sr bYOwWGSXXSzQPd3Gj5ne XQIRE6p3OOepK4QmT4wi UCXUI6C2XX7YECc5 FgS0NBb1Cp9LpNGeEK6W s768VMBhG5TevQQyrmj+ Kz4HBK8su1JgUEaLXuIp IMZxz1PpEDv1VAqz VgvtqFNkKG0NmUP8WZWg S28gEWayAWXsE7UlIED9 OQo+Zv3Sv9QiAVYlKLq9 nL9Rw0fDDGR19ja5 TA/S8xjsdSrHk6TMwVU8 U0UI05HDi0USC/77yrtu IpJCZoAtIdbvPQDs0etE c0a4chL448AORwQj wvI5V7isYZzczaNyHV1d 1SnHGKRqVH6X4cZwCmfL v12Crtkd+S1tsu8hIYQu NCoapwu9YFDOI5Z2 LjBO1IeirhMT+tDppbWv 5HB3Lxv+VqGu/bIPnrvi o7YBL7DmSZGUANAuXhzY KNKGJgxSN0cgFuPF /lft9Et2+l68WOaDDOIh SkQHQimiJEGUUqfNc/zr cH/yPUFxZV9T6PMVPnmW I7sVJfubhoUcJ/TK icgKyZQkKdnzJyQzsuc0 1fGvcZ8tBR/JNitNtwaw EcqSoclcE3CaWdZCHPji 1CHaT6pOlU5/mRia 1F8KTF1kd2BjXWPvYBwr lySnTztIRa6UXlPfAKUv VqcBQjm1Sg5OOOEoPo0q hPMcUuYJRGUFX7Rg kDIgGPWMXDvDK01FJu5A LQEoUC3sAD94Oc4rjOHg GiD7WYJaUn2DP0ZpT11s vB2iGR8KZLXalTn4 uM0TJp2SmVG3gBEiAX1T gMLcYNzxQB4Hczgva0Zl RFA3QCLlQpho (more content not included)... Normal [facility] Coding Summary.on 10-03-2022 Coding Summary. CD:[id number]:[id number] Gh0bWw+PGhlYWQ+PE1FV MOaD57yjDAqpR5oL6JLS ElOSywgQVBQTElOSyIgb nHiWZ4ziPPcQLGg IC8+YP1wYCQnKnolqLCo h3B2jNZ7K36anz3iPYlk mJQ8VKRiIkVquguzz8lv aBx3KLwwVpnpVnXk EYVcdI69HXZ7nW13Yw34 aECjhQKsy6vtdTs2JjIm CWAsQQL5cGwxKQcmo4Sz UHTgU39giSNea3D8 IGNvbGxhcHNlOyBlbXB0 rU2jIJhkfjvsh2lbafqh Dwe7dv62rHWhs7A0mZX3 R2ErmrS2FFUcaXYf QnshoPWEsK8rjdaer3fn fbtyHnJdWWMjOLv2HAw4 TXNjdZvrKdSbUK95QTT0 XHQlceRfM0VpVZSu nOpeKmK9q9D4Fj7AQ3MK IirrB9YWMYBRBXlcjRJ+ XX61cp93C5FyOqizGdn7 PRJhRDA4fBF6oP2q YXArIJgnq5U8xCD2B8Oa kbLrjt8wv0czXAPeCDrq H53ogSEbb5Z4NQWmrBY4 HCZmyAglZuGwvR16 Oyc+OUCszXgld3BtRhjd i9yis3ytaEo4OtcfIDJn yjFwkTtvOYF9b6OkUy4b YVOknNY7oUD1uF5s ZoIbTaD5DBokW396MaEo fUQkJysdL98hX9OlgWL+ VAJeLti9BPCwiHzwEQ2d C2HgPSVgpbevkKIs yDujAM2cIBSphzlcPCRl rZ4cMRKgI6c6QpPiUeW3 EOwxB7FuJLTsiskdNo08 fO1zNmXeNfV9UOao A7CenlN9BONojDPtDYhu MNR5T84om1E9JMCmXYVw LZD7mXJ8nA9rcZwxkslw bGVmdDsgdmVydGlj PAeuBPdvN654LEBsbUpk PkNvZGluZyBEYXRlOiAg MDMvMDgvMjAyMzwvdGQ+ DPRlHLL9sAajCAPm fPNwPQkaGu1tzHlcmJiw QB2hEXZvczvkXBVdbZ2b XYPfzXJggVneER6yQPQd xelct170LxPuIVK6 SYVofIDuS4DabD0nHuKs XDDgUDWeT8JdzAChBJle O160BVaqDrP8QYVwaaPv V6MvBGDbpGfbScP6 l0X7Qu2Tm9RuntqhY9Gv yBGqXkGsDxafCLd3D1Io PjwvdHI+ZN34VALdGB32 DOc6FLO4mVpgBToo BZNmB6IamP0fDvXeGWDs ZGRkOyc+PHRhYmxlIHdp ZHRoPScxMDAlJyBzdHls VO4bDy6gMCCwLBFd tRejqKGaAiJrw1wrLSHp VSsrOG4qnYtsZ3AvaJH4 XAWzp7h4Lr01C19yM4Ro dXA+RRDpeQU8mJH7 yU4aQgInSoS5RPffF667 TtIphSWmXyhkq4idq4sc uCj3OqV8NYVakpJhpHgk VQQ6a1XmZk98B24x IHdpZHRoPSIxNSUiIHZh tDermb8xrW9mQh3+PGNv yHN5qGI8uB4gJqWeToY5 HXcaY441RrUkfMVm Qqeyw2lfg6pwlCx8YwQs ITQmjsQquEabZZG6x2Qi Hg62C0GhzRjha9QeLao1 sq82fQQwv7U8vYW3 F4BoMEEdgcwvcCMwlEhq VM7eTZDmupfkGVEzkD8k QXIjF5r7IxSeQoL9OQyc E4VqrvX2CJQfgJZm ZDHucLRNoQ5apkant1ux piefImKgDEMdEEn1ZXj5 JQIjhOeqIzOvLLL3WvR6 OEW3nXPfpQ5raBsp paicvR9tZqi+BST9dULo oNOEUJ8gMsmkiRL+PHRk PYN3aNouZHfqQIOgwA9g TFJmE6j6XoBnXaM3 XMtdE1FfpwY7KBWvkLPa CKSldLKCnA3autstp8us hokaVeKlBFFwBGq4OFo6 LWFsaWduOiBsZWZ0 TwY0KJC9lVWseJ1zlBut aesksZ3vYiy+QmlydGgg AHM6RGv9Z1PrNdt2DXLd cDqfWZ6knWGsTBpn Bs1qdKqahPnhUA2zQGXn ahwwx709UtUwd8otGZDu bCZlRRsiYSL1U37pl8N2 MBDfKTCrEPZ9xTX9 zM3sxYqyztjetPAkdLfy ohNchWgjHTjeXPmdJ968 YBRqbDsnGbGqFHw7A3Ys Kot9IUUowGpxPG3e dTMpEWlsLh5dzFyudVhj RN4tQLOsccwlx667JpEf z4psSUPffFPvEOurYGJ8 N23ts9C9XTOdUXTf MZV8tZC7nO2jqZlqtfjk bGVmdDsgdmVydGljYWwt HUjeA281ELFwkCggUlGz xEb0X1FeBve1JUUl fWezVD7okRPuPNzaJu4e xFcaoQllPN5iWOCypbrz x160YrTuu2ioXLFimHVn DUeoQAM0L56rg7A3 IPDnLPCjTPS6tIP5aY2b bGlnbjogbGVmdDsgdmVy nDkkGPoqGQnzT384CFFa cDsnPlBhdGllbnQg CDsoORx3N9ZnKpbxfPT+ BR79AAClLK60gCMoeTZc z1fcpBe9MzAqKWHjOLN5 cEaaMTufl1YoLQPx G03kkXBwj6P2JKEroHxa kDDgFxFllPU3tI0kPWgt ppebt6vztkumMhwkf8jx us74rJ03Y79iPHtn ZHRoPSIzMCUiIHZhbGln og3zfE6wEj3+PGNvbCB3 iDT8jV4fTKFmHeU3YTut K374RhXefDIzNnkk j7meo6yfnZd2PjA8NOIj wuGsdAanLMF4u2WnZn00 J46dUCwjHDAyUVJrLNHp OXCpzZsjwn1fwU1i Ii8+TRGrmOA5dAL0vR6q ItPfWjH9LBcvH890TtDr ySPrFxiyI82eM9YfkVN+ WPDmGvq8NSQjlZkz ES1wvVUsTFdaXb3fLEO4 PsIwQpRrOAxbU8DkQBRv jmblmyospCK7RTNsUNJj dZ40Lz3igFlqNCAt dXMTxA7dftgua4nlgsqq BcMgRUFwBTw5VGc0RZZw sOqvFxQbMLA7DrB4KWK4 qNNgcO7qlSpggokd lK8iZ0UxLBVkkhvuSi57 xG7cTfMwWhI7GXzwVdl+ REVMUEhJQSBJSUksIFJB IW3MPpJfRnppdCI+ XJKfJTQ9wHzvVUcyJBIh oR9gMXCrW7v0PcZfTsC1 CFxlG2UqRHAjkbtaCn02 kV4mUpUbZoC4CRsg X3BczkZ2AEGopYHbEDaz NXS8C97lv0Z7MLUcOJNj TNR1hMZ7uR2gyRpdyqfm bGVmdDsgdmVydGlj WCjkOGwpU309MGNemGlm SrLoUuOfEiB4GUa4L3Aw Nde5CWYkwVsqPW4ywYPb MSwbMu7kbTsvgXpr QN2sUZCgmcngZGAltQ1z PQXeeRIcjOriLD0sYPHx piuyk914XwOxGSX0NZJy cNRhA0PwxZ0zPaRu XCFhUDHeP8PliZPmBIbx C548YPvzKgC9EUFlraXn A5JlIWZjhXkmHoQ7t0Q1 Gd0tKtFQXEKvtfnp dGQ+MNSqMRR2yChcKIyj QNFfvA2pYRRkQ7m9DvLq IiH3YAgzS3CsTSAmtetc Yj18cR2iPeOjDqH3 AWuwI3PbtvO5YWFheWJa WKxpMVJ8X34ir0C7NPAk NWOsJSR3hZP3lP3owPqi bjogbGVmdDsgdmVy sRskIUrjRHcyN200HUIe rTxdOz4ffSZ3F0GtErk0 IVItrFpaUC5szTGpZWyz Io2scUibeFqzTI9k MGZebmiaONUpfB0gYOMq iGRhyTpnMU3rMLXjqvbm m187FpCnIQT1BRYzbOLf W8QemL2dWaKrZVBl WEZvG5XukHJzSVutD375 QNfjFuE0YWVitvSkV2Qn XBUpjTukIpR2j5K6Ej6J zGGzL8RyZ0p8Y5Jm PjwvdHI+FE30IFEqML11 wCYuiZRom4wcgHc4EhTh CQVpFZZ5tRvxEWige4Ff BRUyB08ztATtx6N6 IGNvbGxhcHNlOyBlbXB0 wI5oSKwqcxmnw8pqjbqp Uxxhk6yaux09eX69L25n IHdpZHRoPSIzMCUi FROvuOxubw3siG7fLk0+ DQIerVP1vCV4gX9rVtQo XzF0YNumS954KkLmgKSw Qfsro6exm6eutAv9 IjIwJSIgdmFsaWduPSJ0 n4KaGi21B61bEOlvENQk HYPpNXKwGIOlaCvety7j jS4bRf0+NF7xi6el nz28yR74iVO+PHRkIHN0 kBnnEMinZVWjrD3yFGtz UfS1YINqFmPovL36kIXt HErmWf2obJjhhLfz LL2sIPIikvdjg141InLm v6foFXScxHNxLYcfBGB6 E51ta6E9NUPiSHTkYTI4 aON6xO4ahWelckzd bGVmdDsgdmVydGljYWwt NHynO424ADVozCxaNwCb nELaI7iyesJZSN2bIope dGQ+OUQlEFL3pJkr BRxsFOCsdB1fPOPmP5q4 AsVjUiO9YGfuE3SyzwM4 FRKbhUVpTWIhkLKBzM1s twqzg5kbsfqlHbMi RTAiFEt8UGf4ITHdkNqw DmWqDBP5RfP5MCG4dWPy sR9bkBwaewxelF2dCgy+ RklOOjwvdGQ+PHRk RPS7kXjjUHwmPXHetD5m LKRzC7o8YnTcNvD1RTss Q6VajsH8PTNizVAiVHPa zJQNbH0pbmzsc0yn eqnpBcVvIPPtLNk5NQq5 EHLykNhgIaTeATH7FoE5 CXH8xTAbpJ4dxEawwtni eD3zAav+TVJOOjwv dGQ+SGJmIGW1zPecZUpm MWBriE9uMHKrJ6l9UwAx DkG4UBubK5TkwrE0MTIu lTBbHITtoRTStS9d ydrui1awnflhGrOnTXCk CKt8WUw1ULLdePbqUcPv MOK4GoB7XLH4fVCkmN0e dCyfefuikG9qNay+ ZPS9LNZ0KU10IF11Y7Tq PjwvdGFibGU+PHRhYmxl IHdpZHRoPScxMDAlJyBz wSwqUY1yKq4tOCZy LWNv (more content not included)... Normal [facility] Consent for Treatmenton Consent for Treatment [id number] #1.00CD:[address] [facility] Discharge Instructionson Discharge Instructions [id number]#1.00CD:[address] [facility] ED Clinical Summaryon 2022 ED Clinical Summary [place] [id number] ED Clinical Summary Person Information Name: COREY ALONSO III [facility] Age: 27 Years : 1995 Sex: Male Language: Pakistani PCP: EMELI CHI CNP Marital Status: Phone: [phone] Visit Id: Visit Reason: Headache; Seizure; SEIZURE [...] 09/30/2022 21:30:18 09/30/2022 21:30:18 09/30/2022 21:30:18 ADDRESS: [place] [id number] PHYS DOC NOTES: MEDICAL INFORMATION: Prescriptions Given: Medications to Continue with No Changes Other Medications lamotrigine (lamotrigine 100 mg oral tablet) 2 times a day. oxcarbazepine (Trileptal) By Mouth 2 times a day. PATIENT EDUCATION INFORMATION: Instructions: Epilepsy Follow up: With: Address: When: EMELI CHI [facility] [place] [address] [phone] Business (1) In 3 days DIAGNOSIS: Seizure Normal [facility] ED Note-Physicianon 10-01-19 ED Note-Physician Basic Information Time Seen: Idalmis MANNING Junior PizanoCassandra 09/30/2022 20:45 Chief Complaint Patient brought by [...] baseline. He follows with a neurologist in [place] for this. He states that he is [...] In 3 days [address] [place] [address] [phone] Business (1) Additional Instructions: Patient Education Epilepsy [...] Diagnostic Results No qualifying data available. Normal [facility] Comment on above: Result Comment: Elec [...] these instructions at home: Medicines ? Take knyk-enj-wybhdug and prescription medicines only as told by [...] check with your local DMV (department of [employer] vehicles) to find out about local driving [...] care provider. This is important. Contact a [facility] (more content not included)... Normal [facility] ED Patient Summaryon 023 ED Patient Summary [place] [id number] Patient Discharge Instructions Person Information Name: COREY ALONSO III Age: 27 Years Arrival Date: 09/30/2022 20:00:11 Discharge Diagnosis: Seizure Primary Care Physician: EMELI CHI CNP Provider Information Primary Provider: Junior Raygoza DO Advanced Out Patient Therapist:None The exam and treatment you received in the Emergency Department were for an urgent problem and are not intended as complete care. It is important that you follow up with a doctor, nurse practitioner, or physician?s laundry assistant for ongoing care. If your symptoms [...] With: Address: When: EMELI CHI [address] [place] [phone] Business (1) In 3 days In the event that this physician does not participate in your insurance network, please consult with your insurance company to find a nearby participating provider. Patient Education Materials: Epilepsy A MESSAGE TO ALL PATIENTS REGARDING OPIOIDS PRESCRIPTION OPIOIDS: WHAT YOU NEED TO KNOW Prescription opioids can be used to help relieve [id number] pain and are often prescribed following a [...] struggling with addiction, tell your health career development manager and ask for guidance or call [facility] National Helpline at 7-750-318-WLWW. v Source: [place] Department of Health and Human Services/[place] (more content not included)... Normal [facility] Monitor Recordon 09-30-2022 Monitor Record [id number] [facility] Pre-Arrival Noteon 3 Pre-Arrival Note Pre-Arrival Summary Name: mayo Current Date: 09/30/2022 20:10:38 EST Gender: Male Date of : Age: 27 Pre-Arrival Type: EMS ETA: 09/30/2022 20:20:00 EST Primary Care Physician: Presenting Problem: seizure Pre-Arrival User: Referring Source: Location: Completion Date/Time: 09/30/2022 19:50:00 [facility] Emergency Department Pre-Hospital Report Form Vital Signs: BP 144/96, HR 98, SPO2 99%, GCS 15 Pre-Hospital Report: Pt coming from [facility], had a seizure, 5th one today, known to have some back in July, alert and alittle confused Treatment in Route: Response to Treatment: Misc. Issues: Normal [facility] GROUP A STREP CULTUREon 08-30 S. pyogenes Ag Ql (Unsp spec) Culture Observations: NEGATIVE FOR GROUP A STREPTOCOCCUS. Normal [facility] Comment on above: Performed By: #### G RASTCX, SSCRN #### [facility] [address] [place] [address] Dr. Bob Nelson STREPT SCREENon 09-23-2022 STREP SCREEN A Negative Normal NEGATIVE [facility] Comment on above: Performed By: #### G RASTCX, SSCRN #### [facility] [address] [place] [address] Dr. Bob Nelson Basic Metab w/rfx MGon 08-07 Anion gap [Moles/Vol] 11 mmol/L Normal 9-17 [facility] Comment on above: Performed By: #### B MPX #### [facility] [address] [place], [place] [id number] Tea Taster: Carter Collins MD Calcium [Mass/Vol] 10.0 mg/dL Normal 8.6-10.4 [facility] Comment on above: Performed By: #### B MPX #### [facility] [address] [place] [address] [id number] Tea Taster: Carter Collins MD Chloride [Moles/Vol] 102 mmol/L Normal 98-107 [facility] Comment on above: Performed By: #### B MPX #### [facility] [employer] [address] [place] [address] Tea Taster: Carter Collins MD CO2 [Moles/Vol] 26 mmol/L Normal 20-31 [facility] Comment on above: Performed By: #### B MPX #### [address] [address] Tea Taster: Carter Collins MD Creatinine [Mass/Vol] 0.94 mg/dL Normal 0.70-1.20 [facility] Comment on above: Performed By: #### B MPX #### [address] [address] Tea Taster: Carter Collins MD GFR/1.73 sq M.predicted among non-blacks MDRD (S/P/Bld) [Vol rate/Area] mL/min/{1.73_m2} Normal >60 [facility] Comment on above: Result Comment: Effective [...] secretion. Performed By: #### B MPX #### [address] [address] Tea Taster: Carter Collins MD Glucose [Mass/Vol] 97 mg/dL Normal 70-99 [facility] Comment on above: Performed By: #### B MPX #### [facility] [employer] [address] [place] [address] Tea Taster: Carter Collins MD Potassium [Moles/Vol] 4.0 mmol/L Normal 3.7-5.3 [facility] Comment on above: Performed By: #### B MPX #### [facility] [address] [place], [place] [id number] Tea Taster: Carter Collins MD Sodium [Moles/Vol] 139 mmol/L Normal 135-144 [facility] Comment on above: Performed By: #### B MPX #### [facility] [address] [place], [place] [id number] Tea Taster: Carter Collins MD Urea nitrogen [Mass/Vol] 12 mg/dL Normal 6-20 [facility] Comment on above: Performed By: #### B MPX #### [facility] [address] [place], [place] [id number] Tea Taster: Carter Collins MD Basic Metabolic Panel w/ Ref rehana to MG 08-07-2022 Anion gap [Moles/Vol] 11 mmol/L 9 - 17 mmol/L [facility] [employer] Calcium [Mass/Vol] 10.0 mg/dL 8.6 - 10. 4 mg/dL [facility] Chloride [Moles/Vol] 102 mmol/L 98 - 10 7 mmol/L [facility] CO2 [Moles/Vol] 26 mmol/L 20 - 31 mmol/L [facility] Creatinine [Mass/Vol] 0.94 mg/dL 0.70 - 1.20 mg/dL [facility] GFR/1.73 sq M.predicted MDRD (S/P/Bld) [Vol rate/Area] - PINF [facility] Comment on above: Effective Apr 30, 2022 [...] [Mass/Vol] 97 mg/dL 70 - 99 mg/dL [facility] Potassium [Moles/Vol] 4.0 mmol/L 3.7 - 5.3 mmol/L [facility] Sodium [Moles/Vol] 139 mmol/L 135 - 144 mmol/L [facility] Urea nitrogen (BldV) [Mass/Vol] 12 mg/dL 6 - 20 mg/dL [facility] CBC with Auto Differentialon 08-07-2022 Absolute Eos # 0.08 [place] [facility] Absolute Immature Granulocyte 0.04 [facility] Absolute Lymph # 2.27 [facility] Absolute [place] # 0.38 [facility] RS [facility] Basophils (Bld) [#/Vol] 0.03 10*3/uL [facility] Basophils/100 WBC (Bld) 0 % 0 - 2 % B ON [facility] Eosinophils/100 WBC (Bld) 1 % 1 - 4 % [facility] Hematocrit (Bld) [Volume fraction] 45.6 % 40.7 - 50.3 % [facility] Hemoglobin (Bld) [Mass/Vol] 15.6 g/dL 13.0 - 17.0 g/dL [facility] Immature granulocytes/100 WBC (Bld) 1 % High 0 [facility] Interpretation and review of laboratory results Abnormal [facility] Lymphocytes/100 WBC (Bld) 31 % 24 - 43 % [facility] MCH (RBC) [Entitic mass] 28.5 pg 25. 2 - 33.5 pg [facility] MCHC (RBC) [Mass/Vol] 34.2 g/dL 28.4 - 34.8 g/dL [facility] MCV (RBC) [Entitic vol] 83.4 fL 82.6 - 102.9 fL [facility] Monocytes/100 WBC (Bld) 5 % 3 - 12 % B ON [facility] NRBC Automated 0.0 0.0 per 100 WBC [facility] Platelet distribution width (Bld) [Ratio] 12.6 % 11.8 - 14.4 % [facility] Platelet mean volume (Bld) [Entitic vol] 9.8 fL 8.1 - 13.5 fL [facility] Platelets (Bld) [#/Vol] 215 10*3/uL [facility] RBC (Bld) [#/Vol] 5.47 10*6/uL 4.21 - 5.7 7 m/uL [facility] Segmented neutrophils/100 WBC (Bld) 62 % 36 - 65 % [facility] Segs Absolute 4.58 [facility] WBC (Bld) [#/Vol] 7.4 10*3/uL [facility] CBC with Diffon 08-07-2022 Abs. Basophil 0.03 k/uL Normal 0.00-0.20 [facility] Comment on above: Performed By: #### C DP #### [place] [address] Tea Taster: Carter Collins MD Abs.Imm.Granulocyte 0.04 k/uL Normal 0.00-0.30 [facility] Comment on above: Performed By: #### C DP #### [place] [address] Tea Taster: Carter Collins MD Abs.Neutrophil (Seg) 4.58 k/uL Normal 1.50-8.10 [facility] Comment on above: Performed By: #### C DP #### [address] [address] Tea Taster: Carter Collins MD Basophils/100 WBC (Bld) 0 % Normal 0-2 M [facility] Comment on above: Performed By: #### C DP #### [address] [address] Tea Taster: Carter Collins MD Eosinophils (Bld) [#/Vol] 0.08 10*3/uL Normal 0.00-0.44 [facility] Comment on above: Performed By: #### C DP #### [place] [address] Tea Taster: Carter Collins MD Eosinophils/100 WBC (Bld) 1 % Normal 1-4 [facility] Comment on above: Performed By: #### C DP #### [address] [address] Tea Taster: Carter Collins MD Erythrocyte distribution width (RBC) [Ratio] 12.6 % Normal 11.8-14.4 [facility] Comment on above: Performed By: #### C DP #### [address] [address] Tea Taster: Carter Collins MD Hematocrit (Bld) [Volume fraction] 45.6 % Normal 40.7-50.3 [facility] Comment on above: Performed By: #### C DP #### [address] [address] Tea Taster: Carter Collins MD Hemoglobin (Bld) [Mass/Vol] 15.6 g/dL Normal 13.0-17.0 [facility] Comment on above: Performed By: #### C DP #### [address] [address] Tea Taster: Carter Collins MD Immature granulocytes/100 WBC (Bld) 1 % High 0 [facility] Comment on above: Performed By: #### C DP #### [address] [address] Tea Taster: Carter Collins MD Lymphocytes (Bld) [#/Vol] 2.27 10*3/uL Normal 1.10-3.70 [facility] Comment on above: Performed By: #### C DP #### [address] [address] Tea Taster: Carter Collins MD Lymphocytes/100 WBC (Bld) 31 % Normal 24-43 [facility] Comment on above: Performed By: #### C DP #### [address] [address] Tea Taster: Carter Collins MD MCH (RBC) [Entitic mass] 28.5 pg Normal 25.2-33.5 [facility] Comment on above: Performed By: #### C DP #### [address] [address] Tea Taster: Carter Collins MD MCHC (RBC) [Mass/Vol] 34.2 g/dL Normal 28.4-34.8 [facility] Comment on above: Performed By: #### C DP #### [address] [address] Tea Taster: Carter Collins MD MCV (RBC) [Entitic vol] 83.4 fL Normal 82.6-102.9 [facility] Comment on above: Performed By: #### C DP #### [address] [address] Tea Taster: Carter Collins MD Monocytes (Bld) [#/Vol] 0.38 10*3/uL Normal 0.10-1.20 [facility] Comment on above: Performed By: #### C DP #### [address] [address] Tea Taster: Carter Collins MD Monocytes/100 WBC (Bld) 5 % Normal 3-12 M [facility] Comment on above: Performed By: #### C DP #### [address] [address] Tea Taster: Carter Collins MD Neutrophil (Seg) 62 % Normal 36-65 [facility] Comment on above: Performed By: #### C DP #### [address] [address] Tea Taster: Carter Collins MD NRBC Automated 0.0 per 100 WBC Normal 0.0 [facility] Comment on above: Performed By: #### C DP #### [address] [address] Tea Taster: Carter Collins MD Platelet mean volume (Bld) [Entitic vol] 9.8 fL Normal 8.1-13.5 [facility] Comment on above: Performed By: #### C DP #### [address] [address] Tea Taster: Carter Collins MD Platelets (Bld) [#/Vol] 215 10*3/uL Normal 138-453 [facility] Comment on above: Performed By: #### C DP #### [address] [address] Tea Taster: Carter Collins MD RBC (Bld) [#/Vol] 5.47 10*6/uL Normal 4.21-5.77 [facility] Comment on above: Performed By: #### C DP #### [address] [address] Tea Taster: Carter Collins MD WBC (Bld) [#/Vol] 7.4 10*3/uL Normal 3.5-11.3 [facility] Comment on above: Performed By: #### C DP #### [address] [address] Tea Taster: Carter Collins MD EEG video monitoringon 08-07 Samira Rubio MD 08/07/2022 6:14 PM LONG-TERM EEG-VIDEO MONITORING CLINICAL NEUROPHYSIOLOGY LABORATORY DEPARTMENT OF NEUROLOGY [facility] Patient: Corey Alonso III Age: 26 y.o. [...] revealed no abnormalities. SAMIRA RUBIO MD Diplomate, [place] [employer] of Psychiatry and Neurology Diplomate, [place] Board of Clinical Neurophysiology Diplomate, [place] Board of Epilepsy Please note this is a preliminary report and updated daily. The final report will have a summary of behavior and electrographic findings with clinical correlation. [facility] [employer] Work Phone: EEG video monitoringOrdered By: Samira Rubio on 08-07-2022 [facility] [employer] Phone: LAMOTRIGINEon 06-19-2022 Lamotrigine, Serum 4.2 ug/mL Normal 2.0-20.0 [facility] Comment on above: Result Comment: Dete ction Limit = 1.0 Performed By: #### C BC #### [facility] [address] [place] [address] Dr. Bob Nelson CBC AUTO DIFFon 06-11-2022 BASO # 0.0 103/ul Normal 0.0-0.1 [facility] Comment on above: Performed By: #### C BC #### [facility] [address] [place] [address] Dr. Bob Nelson Basophils/100 WBC (Bld) 0.2 % Normal 0.2-2.0 [facility] Comment on above: Performed By: #### C BC #### [facility] [address] [place] [address] Dr. Bob Nelson EO # 0.0 103/ul Normal 0.0-0.7 [facility] Comment on above: Performed By: #### C BC #### [facility] [address] [place] [address] Dr. Bob Nelson Eosinophils/100 WBC (Bld) 0.0 % Critically low 0.9-7.0 [facility] Comment on above: Performed By: #### C BC #### [facility] [address] [place] [address] Dr. Bob Nelson Erythrocyte distribution width (RBC) [Ratio] 13.0 % Normal 11.0-15.0 [facility] Comment on above: Performed By: #### C BC #### [facility] [address] [place] [address] Dr. Bob Nelson Hematocrit (Bld) [Volume fraction] 40.4 % Critically low 42.0-54.0 [facility] Comment on above: Performed By: #### C BC #### [facility] [address] [place] [address] Dr. Bob Nelson Hemoglobin (Bld) [Mass/Vol] 14.3 g/dL Normal 14.0-18.0 [facility] Comment on above: Performed By: #### C BC #### [facility] [address] [place] [address] Dr. Bob Nelson IG # 0.03 10e3/ul Normal 0.00-0.03 [facility] Comment on above: Performed By: #### C BC #### [facility] [address] [place] [address] Dr. Bob Nelson IG % 0.3 % Normal 0.0-0.5 [facility] Comment on above: Performed By: #### C BC #### [facility] [address] [place] [address] Dr. Bob Nelson LYMPH # 0.7 103/ul Critically low 1.2-3.8 [facility] Comment on above: Performed By: #### C BC #### [facility] [address] [place] [address] Dr. Bob Nelson Lymphocytes/100 WBC (Bld) 7.2 % Critically low 20.5-60.0 [facility] Comment on above: Performed By: #### C BC #### [facility] [address] [place] [address] Dr. Bob Nelson MANUAL DIFF REQ NO Normal [facility] Comment on above: Performed By: #### C BC #### [facility] [address] [place] [address] Dr. Bob Nelson MCH (RBC) [Entitic mass] 28.7 pg Normal 25.9-34.0 [facility] Comment on above: Performed By: #### C BC #### [facility] [address] [place] [address] Dr. Bob Nelson MCHC (RBC) [Mass/Vol] 35.4 g/dL Critically high 29.9-35.2 [facility] Comment on above: Performed By: #### C BC #### [facility] [address] [place] [address] Dr. Bob Nelson MCV (RBC) [Entitic vol] 81.1 fL Normal 80.0-94.0 [facility] Comment on above: Performed By: #### C BC #### [facility] [address] [place] [address] Dr. Bob Nelson MONO # 0.6 103/ul Normal 0.3-0.8 [facility] Comment on above: Performed By: #### C BC #### [facility] [address] [place] [address] Dr. Bob Nelson Monocytes/100 WBC (Bld) 6.0 % Normal 1.7-12.0 [facility] Comment on above: Performed By: #### C BC #### [facility] [address] [place] [address] Dr. Bob Nelson NEUT # 8.8 103/ul Critically high 1.4-6.5 [facility] Comment on above: Performed By: #### C BC #### [facility] [address] [place] [address] Dr. Bob Nelson Neutrophils/100 WBC (Bld) 86.3 % Critically high 43.0-75.0 [facility] Comment on above: Performed By: #### C BC #### [facility] [address] [place] [address] Dr. Bob Nelson Platelet mean volume (Bld) [Entitic vol] 9.1 fL Critically low 9.5-13.5 [facility] Comment on above: Performed By: #### C BC #### [facility] [address] [place] [address] Dr. Bob Nelson PLT 177 103/ul Normal 150-450 [facility] Comment on above: Performed By: #### C BC #### [facility] [address] [place] [address] Dr. Bob Nelson RBC 4.98 106/ul Normal 4.70-6.10 [facility] Comment on above: Performed By: #### C BC #### [facility] [address] [place] [address] Dr. Bob Nelson WBC 10.2 103/ul Normal 4.0-11.0 [facility] Comment on above: Performed By: #### C BC #### [facility] [address] [place] [address] Dr. Bob Nelson CBC W MANUAL DIFFon 06-11-20 22 ATYPICAL LYMPH # Normal [facility] Comment on above: Performed By: #### C BC #### [facility] [address] [place] [address] Dr. Bob Nelson ATYPICAL LYMPH % Normal [facility] Comment on above: Performed By: #### C BC #### [facility] [address] [place] [address] Dr. Bob Nelson BAND # 0.0 103/ul Normal 0.0-0.3 [facility] Comment on above: Performed By: #### C BC #### [facility] [address] [place] [address] Dr. Bob Nelson BAND % 0 % Normal 0-5 [facility] Comment on above: Performed By: #### C BC #### [facility] [address] [address] [address] Bob Nelson BASOM # 0.00 103/ul Normal 0.00-0.10 [facility] Comment on above: Performed By: #### C BC #### [facility] [address] [address] [address] Bob Nelson BASOM % 0.0 % Critically low 0.2-2.0 [facility] Comment on above: Performed By: #### C BC #### [facility] [address] [address] [address] Bob Nelson BLAST # Normal [facility] Comment on above: Performed By: #### C BC #### [facility] [address] [place] [address] Dr. Bob Nelson BLAST % Normal [facility] Comment on above: Performed By: #### C BC #### [facility] [address] [place] [address] Dr. Bob Nelson CORRECTED WBC Normal 4.0-11.0 [facility] Comment on above: Performed By: #### C BC #### [facility] [address] [place] [address] Dr. Bob Nelson EOS # 0.00 103/ul Normal 0.00-0.70 [facility] Comment on above: Performed By: #### C BC #### [facility] [address] [place] [address] Dr. Bob Nelson EOS% 0.0 % Critically low 0.9-7.0 [facility] Comment on above: Performed By: #### C BC #### [facility] [address] [place] [address] Dr. Bob Nelson HCT 41.3 % Critically low 42.0-54.0 [facility] Comment on above: Performed By: #### C BC #### [facility] [address] [place] [address] Dr. Bob Nelson HGB 14.4 g/dl Normal 14.0-18.0 [facility] Comment on above: Performed By: #### C BC #### [facility] [address] [place] [address] Dr. Bob Nelson LYMPHM # 0.85 103/ul Critically low 1.20-3.[address] [facility] Comment on above: Performed By: #### C BC #### [facility] [address] [place] [address] Dr. Bob Nelson LYMPHM% 8.0 % Critically low 20.5-60.0 [facility] Comment on above: Performed By: #### C BC #### [facility] [address] [place] [address] Dr. Bob Nelson MCH 28.6 pg Normal 25.9-34.0 [facility] Comment on above: Performed By: #### C BC #### [facility] [address] [place] [address] Dr. Bob Nelson MCHC 34.9 g/dl Normal 29.9-35.2 [facility] Comment on above: Performed By: #### C BC #### [facility] [address] [place] [address] Dr. Bob Nelson MCV 82.1 fL Normal 80.0-94.0 [facility] Comment on above: Performed By: #### C BC #### [facility] [address] [place] [address] Dr. Bob Nelson METAMYELOCYTE # Normal [facility] Comment on above: Performed By: #### C BC #### [facility] [address] [place] [address] Dr. Bob Nelson METAMYELOCYTE % Normal [facility] Comment on above: Performed By: #### C BC #### [facility] [address] [place] [address] Dr. Bob Nelson MONOM# 0.64 103/ul Normal 0.30-0.80 [facility] Comment on above: Performed By: #### C BC #### [facility] [address] [place] [address] Dr. Bob Nelson MONOM% 6.0 % Normal 1.7-12.0 [facility] Comment on above: Performed By: #### C BC #### [facility] [address] [address] [address] Bob Nelson MPV 9.4 fL Critically low 9.5-13.5 [facility] Comment on above: Performed By: #### C BC #### [facility] [address] [address] [address] Bob Nelson MYELOCYTE # Normal [facility] Comment on above: Performed By: #### C BC #### [facility] [address] [address] [address] Bob Nelson MYELOCYTE % Normal [facility] Comment on above: Performed By: #### C BC #### [facility] [address] [place] [address] Dr. Bob Nelson NRBC Normal [facility] Comment on above: Performed By: #### C BC #### [facility] [address] [place] [address] Dr. Bob Nelson PLT 182 103/ul Normal 150-450 [facility] Comment on above: Performed By: #### C BC #### [facility] [address] [address] [address] Bbo Nelson RBC 5.03 106/ul Normal 4.70-6.10 [facility] Comment on above: Performed By: #### C BC #### [facility] [address] [place] [address] Dr. Bob Nelson RDW 12.9 % Normal 11.0-15.0 [facility] Comment on above: Performed By: #### C BC #### [facility] [address] [address] [address] Bob Nelson SEG # 9.12 103/ul Critically high 1.40-6.50 [facility] Comment on above: Performed By: #### C BC #### [facility] [address] [address] [address] Bob Nelson SEG % 86.0 % Critically high 43.0-75.0 [facility] Comment on above: Performed By: #### C BC #### [facility] [address] [place] [address] Dr. Bob Nelson WBC 10.6 103/ul Normal 4.0-11.0 [facility] Comment on above: Performed By: #### C BC #### [facility] [address] [place] [address] Dr. Bob Nelson ER URINE PROFILEon 2 Bilirubin Ql (U) Negative Normal NEGATIVE [facility] Comment on above: Performed By: #### B MP #### [facility] [address] [place] [address] Dr. Bob Nelson Clarity (U) CLEAR Normal CLEAR [facility] Comment on above: Performed By: #### B MP #### [facility] [address] [place] [address] Dr. Bob Nelson Color (U) DK. YELLOW Normal YELLOW [facility] Comment on above: Performed By: #### B MP #### [facility] [address] [place] [address] Dr. Bob Nelson ERUAHDarien A micrscopic examination will be performed if indicated. Normal [facility] Comment on above: Performed By: #### B MP #### [facility] [address] [place] [address] Dr. Bob Nelson Glucose Ql (U) Negative Normal NEGATIVE [facility] Comment on above: Performed By: #### B MP #### [facility] [address] [place] [address] Dr. Bob Nelson Hemoglobin Ql (U) Negative Normal NEGATIVE [facility] Comment on above: Performed By: #### B MP #### [facility] [address] [place] [address] Dr. Bob Nelson Ketones Ql (U) Negative Normal NEGATIVE [facility] Comment on above: Performed By: #### B MP #### [facility] [address] [place] [address] Dr. Bob Nelson LEUKOCYTES Negative Normal NEGATIVE [facility] Comment on above: Performed By: #### B MP #### [facility] [address] [place] [address] Dr. Bob Nelson Nitrite Ql (U) Negative Normal NEGATIVE [facility] Comment on above: Performed By: #### B MP #### [facility] [address] [place] [address] Dr. Bob Nelson pH (U) 6.5 [pH] Normal 5-9 [facility] Comment on above: Performed By: #### B MP #### [facility] [address] [address] [address] Bob Nelson Protein (U) [Mass/Vol] 30 mg/dL Abnormal NEGAT TOMMY/ TRACE [facility] Comment on above: Performed By: #### B MP #### [facility] [address] [place] [address] Dr. Bob Nelson SPEC GRAVITY 1.025 Normal 1.005-<=1.02 5 [facility] Comment on above: Performed By: #### B MP #### [facility] [address] [place] [address] Dr. Bob Nelson UR MICRO IND INDICATED Normal [facility] Comment on above: Performed By: #### B MP #### [facility] [address] [place] [address] Dr. Bob Nelson Urobilinogen Qn (U) 0.2 {Lance'U}/dL Normal 0.2 - 1. 0 [facility] Comment on above: Performed By: #### B MP #### [facility] [address] [place] [address] Dr. Bob Nelson PROF CHEM 8 (BAS METB)on Anion gap [Moles/Vol] 7.2 mmol/L Normal [facility] Comment on above: Performed By: #### B MP #### [facility] [address] [address] [address] Bob Nelson Calcium [Mass/Vol] 9.0 mg/dL Normal 8.5-10.1 [facility] Comment on above: Performed By: #### B MP #### [facility] [address] [place] [address] Dr. Bob Nelson Chloride [Moles/Vol] 98 mmol/L Normal 98-107 [facility] Comment on above: Performed By: #### B MP #### [facility] [address] [address] [address] Bob Nelson CO2 [Moles/Vol] 30.9 mmol/L Normal 21.0-32.0 [facility] Comment on above: Performed By: #### B MP #### [facility] [address] [address] [address] Bob Nelson Creatinine [Mass/Vol] 0.96 mg/dL Normal 0.70-1.30 [facility] Comment on above: Performed By: #### B MP #### [facility] [address] [address] [address] Bob Nelson EGFR-AF HUNGARIAN >60 Normal >=60 [facility] Comment on above: Performed By: #### B MP #### [facility] [address] [place] [address] Dr. Bob Nelson EGFR-NON AF HUNGARIAN >60 Normal >=60 [facility] Comment on above: Performed By: #### B MP #### [facility] [address] [address] [address] Bob Nelson Glucose [Mass/Vol] 132 mg/dL Critically high 74-106 T [facility] Comment on above: Performed By: #### B MP #### [facility] [address] [address] [address] Bob Nelson Potassium [Moles/Vol] 4.1 mmol/L Normal 3.5-5.1 [facility] Comment on above: Performed By: #### B MP #### [facility] [address] [address] [address] Bob Nelson Sodium [Moles/Vol] 132 mmol/L Critically low 136-145 [facility] Comment on above: Performed By: #### B MP #### [facility] [address] [address] [address] Bob Nelson Urea nitrogen [Mass/Vol] 13.0 mg/dL Normal 7.0-18.0 [facility] Comment on above: Performed By: #### B MP #### [facility] [address] [place] [address] Dr. Bob Nelson Urea nitrogen/Creatinine [Mass ratio] 13.5 mg/mg Normal [facility] Comment on above: Performed By: #### B MP #### [facility] [address] [place] [address] Dr. Bob Nelson URINE MICROSCOPIC ONLYon BACTERIA NONE SEEN Normal NONE SEEN The [facility] Comment on above: Performed By: #### B MP #### [facility] [address] [place] [address] Dr. Bob Nelson Bacteria identified Cx Nom (U) NOT INDICATED Normal [facility] Comment on above: Performed By: #### B MP #### [facility] [address] [place] [address] Dr. Bob Nelson CAST SEEN Abnormal NONE SEEN [facility] Comment on above: Performed By: #### B MP #### [facility] [address] [place] [address] Dr. Bob Nelson Crystals LM Nom (Urine sed) NONE SEEN Normal NONE SEEN [facility] Comment on above: Performed By: #### B MP #### [facility] [address] [place] [address] Dr. Bob Nelson Epithelial cells LM Ql (Urine sed) NONE SEEN Normal NONE SEEN /RARE [facility] Comment on above: Performed By: #### B MP #### [facility] [address] [place] [address] Dr. Bob Nelson MUCOUS NONE SEEN Normal NONE SEEN The [facility] Comment on above: Performed By: #### B MP #### [facility] [address] [place] [address] Dr. Bob Nelson RBC NONE SEEN Abnormal 0-2 [facility] Comment on above: Performed By: #### B MP #### [facility] [address] [place] [address] Dr. Bob Nelson WBC NONE SEEN Normal NONE SEEN [facility] Comment on above: Performed By: #### B MP #### [facility] [address] [place] [address] Dr. Bob Nelson XR CHEST 1 Von [...] No acute disease. Electronically authenticated by: TRINITY TRINH Date: 2022-06-11 09:17 Normal [facility] LAMOTRIGINEon 05-22-2022 Lamotrigine, Serum 5.5 ug/mL Normal 2.0-20.0 [facility] Comment on above: Result Comment: Dete ction Limit = 1.0 Performed By: #### L AMOT #### [facility] [address] [place] [address] Dr. Bob Nelson CBC AUTO DIFFon 04-24-2022 BASO # 0.0 103/ul Normal 0.0-0.1 [facility] Comment on above: Performed By: #### C BC #### [facility] [address] [place] [address] Dr. Bob Nelson Basophils/100 WBC (Bld) 0.5 % Normal 0.2-2.0 [facility] Comment on above: Performed By: #### C BC #### [facility] [address] [place] [address] Dr. Bob Nelson EO # 0.1 103/ul Normal 0.0-0.7 [facility] Comment on above: Performed By: #### C BC #### [facility] [address] [place] [address] Dr. Bob Nelson Eosinophils/100 WBC (Bld) 1.8 % Normal 0.9-7.0 [facility] Comment on above: Performed By: #### C BC #### [facility] [address] [place] [address] Dr. Bob Nelson Erythrocyte distribution width (RBC) [Ratio] 12.6 % Normal 11.0-15.0 [facility] Comment on above: Performed By: #### C BC #### [facility] [address] [place] [address] Dr. Bob Nelson Hematocrit (Bld) [Volume fraction] 48.4 % Normal 42.0-54.0 [facility] Comment on above: Performed By: #### C BC #### [facility] [address] [place] [address] Dr. Bob Nelson Hemoglobin (Bld) [Mass/Vol] 17.2 g/dL Normal 14.0-18.0 [facility] Comment on above: Performed By: #### C BC #### [facility] [address] [place] [address] Dr. Bob Nelson IG # 0.02 10e3/ul Normal 0.00-0.03 [facility] Comment on above: Performed By: #### C BC #### [facility] [address] [place] [address] Dr. Bob Nelson IG % 0.3 % Normal 0.0-0.5 [facility] Comment on above: Performed By: #### C BC #### [facility] [address] [place] [address] Dr. Bob Nelson LYMPH # 2.6 103/ul Normal 1.2-3.8 [facility] Comment on above: Performed By: #### C BC #### [facility] [address] [place] [address] Dr. Bob Nelson Lymphocytes/100 WBC (Bld) 39.4 % Normal 20.5-60.0 [facility] Comment on above: Performed By: #### C BC #### [facility] [address] [place] [address] Dr. Bob Nelson MANUAL DIFF REQ NO Normal [facility] Comment on above: Performed By: #### C BC #### [facility] [address] [place] [address] Dr. Bob Nelson MCH (RBC) [Entitic mass] 29.0 pg Normal 25.9-34.0 [facility] Comment on above: Performed By: #### C BC #### [facility] [address] [address] [address] Bob Nelson MCHC (RBC) [Mass/Vol] 35.5 g/dL Critically high 29.9-35.2 [facility] Comment on above: Performed By: #### C BC #### [facility] [address] [place] [address] Dr. Bob Nelson MCV (RBC) [Entitic vol] 81.6 fL Normal 80.0-94.0 [facility] Comment on above: Performed By: #### C BC #### [facility] [address] [place] [address] Dr. Bob Nelson MONO # 0.5 103/ul Normal 0.3-0.8 [facility] Comment on above: Performed By: #### C BC #### [facility] [address] [place] [address] Dr. Bob Nelson Monocytes/100 WBC (Bld) 8.2 % Normal 1.7-12.0 [facility] Comment on above: Performed By: #### C BC #### [facility] [address] [place] [address] Dr. Bob Nelson NEUT # 3.3 103/ul Normal 1.4-6.5 [facility] Comment on above: Performed By: #### C BC #### [facility] [address] [place] [address] Dr. Bob Nelson Neutrophils/100 WBC (Bld) 49.8 % Normal 43.0-75.0 [facility] Comment on above: Performed By: #### C BC #### [facility] [address] [place] [address] Dr. Bob Nelson Platelet mean volume (Bld) [Entitic vol] 9.5 fL Normal 9.5-13.5 [facility] Comment on above: Performed By: #### C BC #### [facility] [address] [place] [address] Dr. Bob Nelson PLT 225 103/ul Normal 150-450 [facility] Comment on above: Performed By: #### C BC #### [facility] [address] [place] [address] Dr. Bob Nelson RBC 5.93 106/ul Normal 4.70-6.10 [facility] Comment on above: Performed By: #### C BC #### [facility] [address] [place] [address] Dr. Bob Nelson WBC 6.6 103/ul Normal 4.0-11.0 [facility] Comment on above: Performed By: #### C BC #### [facility] [address] [place] [address] Dr. Bob Nelson DRUG SCREEN RAPID (URINE)on 04-24-2022 AMP Negative Normal NEGATIVE [facility] Comment on above: Performed By: #### B MP #### [facility] [address] [place] [address] Dr. Bob Nelson BAR Negative Normal NEGATIVE [facility] Comment on above: Performed By: #### B MP #### [facility] [address] [place] [address] Dr. Bob Nelson BUP Negative Normal NEGATIVE [facility] Comment on above: Performed By: #### B MP #### [facility] [address] [place] [address] Dr. Bob Nelson BZO Negative Normal NEGATIVE [facility] Comment on above: Performed By: #### B MP #### [facility] [address] [place] [address] Dr. Bob Nelson BETHANIE Negative Normal NEGATIVE [facility] Comment on above: Performed By: #### B MP #### [facility] [address] [place] [address] Dr. Bob Nelson CUT-OFFS SEE BELOW Normal [facility] Comment on above: Result Comment: AMP (Amphetamine): 500ng/mL, BAR (Barbituates): 200 ng/mL, BZO (Benzodiazepines): 150 ng/mL, BUP (Buprenorphine): 10 ng/mL, BETHANIE (Cocaine): 150 ng/mL, mAMP (Methamphetamine): 500 ng/mL, MTD (Methadone): 200 ng/mL, OPI (Opiates): 100 ng/mL, OXY (Oxycodone): 100 ng/mL, PCP (Phencyclidine): 25 ng/mL, PPX (Propoxyphene): 300 ng/mL, THC (Cannabinoids): 50 ng/mL, TCA (Trycyclic Antidepressants): 300 ng/mL Performed By: #### B MP #### [facility] [address] [place] [address] Dr. Bob Nelson DRUG CUT HEADER DRUG CLASS TEST SYSTEM CUT-OFF CONCENTRATIONS ARE FOLLOWS: Normal [facility] Comment on above: Performed By: #### B MP #### [facility] [address] [place] [address] Dr. Bob Nelson mAMP Negative Normal NEGATIVE [facility] Comment on above: Performed By: #### B MP #### [facility] [address] [place] [address] Dr. Bob Nelson MTD Negative Normal NEGATIVE [facility] Comment on above: Performed By: #### B MP #### [facility] [address] [place] [address] Dr. Bob Nelson OPI Negative Normal NEGATIVE [facility] Comment on above: Performed By: #### B MP #### [facility] [address] [place] [address] Dr. Bob Nelson OXY Negative Normal NEGATIVE [facility] Comment on above: Performed By: #### B MP #### [facility] [address] [place] [address] Dr. Bob Nelson PCP Negative Normal NEGATIVE [facility] Comment on above: Performed By: #### B MP #### [facility] [address] [place] [address] Dr. Bob Nelson PPX Negative Normal NEGATIVE [facility] Comment on above: Performed By: #### B MP #### [facility] [address] [place] [address] Dr. Bob Nelson TCA Negative Normal NEGATIVE [facility] Comment on above: Performed By: #### B MP #### [facility] [address] [place] [address] Dr. Bob Nelson THC Negative Normal NEGATIVE [facility] Comment on above: Performed By: #### B MP #### [facility] [address] [place] [address] Dr. Bob GONCALVES URINE PROFILEon 2 Bilirubin Ql (U) Negative Normal NEGATIVE [facility] Comment on above: Performed By: #### C MP #### [facility] [address] [place] [address] Dr. Bob Nelson Clarity (U) CLEAR Normal CLEAR [facility] Comment on above: Performed By: #### C MP #### [facility] [address] [place] [address] Dr. Bob Nelson Color (U) YELLOW Normal YELLOW [facility] Comment on above: Performed By: #### C MP #### [facility] [address] [place] [address] Dr. Bob VANEGAS A micrscopic examination will be performed if indicated. Normal [facility] Comment on above: Performed By: #### C MP #### [facility] [address] [place] [address] Dr. Bob Nelson Glucose Ql (U) Negative Normal NEGATIVE [facility] Comment on above: Performed By: #### C MP #### [facility] [address] [place] [address] Dr. Bob Nelson Hemoglobin Ql (U) Negative Normal NEGATIVE [facility] Comment on above: Performed By: #### C MP #### [facility] [address] [place] [address] Dr. Bob Nelson Ketones Ql (U) Negative Normal NEGATIVE [facility] Comment on above: Performed By: #### C MP #### [facility] [address] [place] [address] Dr. Bob Nelson LEUKOCYTES Negative Normal NEGATIVE [facility] Comment on above: Performed By: #### C MP #### [facility] [address] [place] [address] Dr. Bob Nelson Nitrite Ql (U) Negative Normal NEGATIVE [facility] Comment on above: Performed By: #### C MP #### [facility] [address] [place] [address] Dr. Bob Nelson pH (U) 5.5 [pH] Normal 5-9 [facility] Comment on above: Performed By: #### C MP #### [facility] [address] [place] [address] Dr. Bob Nelson Protein (U) [Mass/Vol] 100 mg/dL Abnormal NEGAT TOMMY/ TRACE [facility] Comment on above: Performed By: #### C MP #### [facility] [address] [place] [address] Dr. Bob Nelson SPEC GRAVITY >=1.030 Abnormal 1.005-<=1.[address] [place] [address] Comment on above: Performed By: #### C MP #### [facility] [address] [place] [address] Dr. Bob Nelson UR MICRO IND INDICATED Normal [facility] Comment on above: Performed By: #### C MP #### [facility] [address] [place] [address] Dr. Bob Nelson Urobilinogen Qn (U) 0.2 {Lance'U}/dL Normal 0.2 - 1. 0 [facility] Comment on above: Performed By: #### C MP #### [facility] [address] [place] [address] Dr. Bob Nelson PROF 14(COMP METB)on 022 Albumin [Mass/Vol] 4.3 g/dL Normal 3.4-5.0 [facility] Comment on above: Performed By: #### C MP #### [facility] [address] [place] [address] Dr. Bob Nelson Albumin/Globulin [Mass ratio] 1.2 {ratio} Normal [facility] Comment on above: Performed By: #### C MP #### [facility] [address] [place] [address] Dr. Bob Nelson ALP [Catalytic activity/Vol] 104 U/L Normal 46-116 [facility] Comment on above: Performed By: #### C MP #### [facility] [address] [place] [address] Dr. Bob Nelson ALT [Catalytic activity/Vol] 64 U/L Critically high 16-63 [facility] Comment on above: Performed By: #### C MP #### [facility] [address] [address] [address] Bob Nelson Anion gap [Moles/Vol] 19.9 mmol/L Normal Th e [facility] Comment on above: Performed By: #### C MP #### [facility] [address] [address] [address] Bob Nelson AST [Catalytic activity/Vol] 26 U/L Normal 15-37 [facility] Comment on above: Performed By: #### C MP #### [facility] [address] [address] [address] Bob Nelson Bilirubin [Mass/Vol] 0.3 mg/dL Normal 0.2-1.0 [facility] Comment on above: Performed By: #### C MP #### [facility] [address] [address] [address] Bob Nelson Calcium [Mass/Vol] 9.4 mg/dL Normal 8.5-10.1 [facility] Comment on above: Performed By: #### C MP #### [facility] [address] [address] [address] Bob Nelson Chloride [Moles/Vol] 101 mmol/L Normal 98-107 [facility] Comment on above: Performed By: #### C MP #### [facility] [address] [address] [address] Bob Nelson CO2 [Moles/Vol] 20.8 mmol/L Critically low 21.0-32.0 [facility] Comment on above: Performed By: #### C MP #### [facility] [address] [address] [address] Bob Nelson Creatinine [Mass/Vol] 1.16 mg/dL Normal 0.70-1.30 [facility] Comment on above: Performed By: #### C MP #### [facility] [address] [address] [address] Bob Nelson EGFR-AF HUNGARIAN >60 Normal >=60 [facility] Comment on above: Performed By: #### C MP #### [facility] [address] [address] [address] Bob Nelson EGFR-NON AF HUNGARIAN >60 Normal >=60 [facility] Comment on above: Performed By: #### C MP #### [facility] [address] [address] [address] Bob Nelson Globulin (S) [Mass/Vol] 3.6 g/dL Normal [facility] Comment on above: Performed By: #### C MP #### [facility] [address] [address] [address] Bob Nelson Glucose [Mass/Vol] 152 mg/dL Critically high 74-106 [facility] Comment on above: Performed By: #### C MP #### [facility] [address] [address] [address] Bob Nelson Potassium [Moles/Vol] 3.7 mmol/L Normal 3.5-5.1 [facility] Comment on above: Performed By: #### C MP #### [facility] [address] [address] [address] Bob Nelson Protein [Mass/Vol] 7.9 g/dL Normal 6.4-8.2 [facility] Comment on above: Performed By: #### C MP #### [facility] [address] [address] [address] Bob Nelson Sodium [Moles/Vol] 138 mmol/L Normal 136-145 [facility] Comment on above: Performed By: #### C MP #### [facility] [address] [address] [address] Bob Nelson Urea nitrogen [Mass/Vol] 12.0 mg/dL Normal 7.0-18.0 [facility] Comment on above: Performed By: #### C MP #### [facility] [address] [address] [address] Bob Nelson Urea nitrogen/Creatinine [Mass ratio] 10.3 mg/mg Normal [facility] Comment on above: Performed By: #### C MP #### [facility] [address] [address] [address] Bob Nelson TSHon 04-24-2022 TSH 3.982 uIU/mL Critically high 0.358-3.740 [facility] Comment on above: Performed By: #### C MP #### [facility] [address] [place] [address] Dr. Bob Nelson URINE MICROSCOPIC ONLYon BACTERIA NONE SEEN Normal NONE SEEN [facility] Comment on above: Performed By: #### C MP #### [facility] [address] [place] [address] Dr. Bob Nelson Bacteria identified Cx Nom (U) NOT INDICATED Normal [facility] Comment on above: Performed By: #### C MP #### [facility] [address] [place] [address] Dr. Bob Nelson CAST SEEN Abnormal NONE SEEN [facility] Comment on above: Performed By: #### C MP #### [facility] Laboratory [address] [place] [address] Dr. Bob Nelson Crystals LM Nom (Urine sed) NONE SEEN Normal NONE SEEN [facility] Comment on above: Performed By: #### C MP #### [facility] Laboratory [address] [place] [address] Dr. Bob Nelson Epithelial cells LM Ql (Urine sed) RARE Normal NONE SEEN /RARE [facility] Comment on above: Performed By: #### C MP #### [facility] Laboratory [address] [place] [address] Dr. Bob Nelson HYALINE CAST RARE Normal [facility] Comment on above: Performed By: #### C MP #### [facility] Laboratory [address] [place] [address] Dr. Bob Nelson MUCOUS NONE SEEN Normal NONE SEEN [facility] Comment on above: Performed By: #### C MP #### [facility] Laboratory [address] [place] [address] Dr. Bob Nelson RBC NONE SEEN Abnormal 0-2 [facility] Comment on above: Performed By: #### C MP #### [facility] Laboratory [address] [place], [place] [id number] Dr. Bob Nelson WBC NONE SEEN Normal NONE SEEN [facility] Comment on above: Performed By: #### C MP #### [facility] [address] [place] [address] Dr. Bob Nelson No Panel InformationOrdered By: Derek Burks on 04-12-2022 Semen Analysis Comment . [facility] Comment on above: NO SPERM SEEN CONFIR MED BY SECOND TECH/@KWJ&STEVAN Semen WBC Concentration <1.0 M/mL <0.9 [facility] Sperm % Non-Motile TNP [facility] Comment on above: Test not performed Sperm Motility [facility] Comment on above: Test not performed Qualitative semen viscosityO rdered By: Derek Burks on 04-12-2022 Viscosity Ql (Jeanie) Normal Normal [facility] Semen Analysis, Fertilityon 04-12-2022 Immotile Sperm Not performed Normal [facility] Comment on above: Order Comment: Metho d of Collection:: Masturbation Has the patient had a vasectomy?: N Type of Specimen Container:: Sterile Container Abstinence Period:: 48 HRS Kept at body temperature?: Y Any Collection or Transport Problems?: NO Performed By: #### S EMCOMP #### [facility] [address] Non-Progression Sperm Motili Not performed Normal [facility] Comment on above: Order Comment: Metho d of Collection:: Masturbation Has the patient had a vasectomy?: N Type of Specimen Container:: Sterile Container Abstinence Period:: 48 HRS Kept at body temperature?: Y Any Collection or Transport Problems?: NO Performed By: #### S EMCOMP #### [facility] [address] Normal Sperm Morphology Not performed Normal >=4.0 [facility] Comment on above: Order Comment: Metho d of Collection:: Masturbation Has the patient had a vasectomy?: N Type of Specimen Container:: Sterile Container Abstinence Period:: 48 HRS Kept at body temperature?: Y Any Collection or Transport Problems?: NO Performed By: #### S EMCOMP #### [facility] [address] [place] [address] Rapid Progression Sperm Motili Not performed Normal [facility] Comment on above: Order Comment: Metho d of Collection:: Masturbation Has the patient had a vasectomy?: N Type of Specimen Container:: Sterile Container Abstinence Period:: 48 HRS Kept at body temperature?: Y Any Collection or Transport Problems?: NO Performed By: #### S EMCOMP #### [address] Semen Comment . Normal [facility] Comment on above: Order Comment: Metho d of Collection:: Masturbation Has the patient had a vasectomy?: N Type of Specimen Container:: Sterile Container Abstinence Period:: 48 HRS Kept at body temperature?: Y Any Collection or Transport Problems?: NO Result Comment: NO S PERM SEEN CONFIRMED BY SECOND TECH/@J STEVAN PERFORMED BY: [place] [address] PATHOLOGIST MATHEMATICS LECTURER CARLITA SEALS M.D. Performed By: #### S EMCOMP #### [address] Semen Liquefaction Normal Normal <=60 min [facility] Comment on above: Order Comment: Metho d of Collection:: Masturbation Has the patient had a vasectomy?: N Type of Specimen Container:: Sterile Container Abstinence Period:: 48 HRS Kept at body temperature?: Y Any Collection or Transport Problems?: NO Performed By: #### S EMCOMP #### [facility] [address] [place] [address] Semen Viscosity Normal Normal Normal [facility] Comment on above: Order Comment: Metho d of Collection:: Masturbation Has the patient had a vasectomy?: N Type of Specimen Container:: Sterile Container Abstinence Period:: 48 HRS Kept at body temperature?: Y Any Collection or Transport Problems?: NO Performed By: #### S EMCOMP #### [facility] [address] [place] [address] Semen Volume 1.0 mL Low >=1.5 [facility] Comment on above: Order Comment: Metho d of Collection:: Masturbation Has the patient had a vasectomy?: N Type of Specimen Container:: Sterile Container Abstinence Period:: 48 HRS Kept at body temperature?: Y Any Collection or Transport Problems?: NO Performed By: #### S EMCOMP #### [facility] [address] Sperm Concentration <2.0 Low >=15 [facility] Comment on above: Order Comment: Metho d of Collection:: Masturbation Has the patient had a vasectomy?: N Type of Specimen Container:: Sterile Container Abstinence Period:: 48 HRS Kept at body temperature?: Y Any Collection or Transport Problems?: NO Result Comment: Suboptimal specimen. Unable to perform morphology testing. Performed By: #### S EMCOMP #### [address] Total Motility (MI+MACHINE TOOL BUILDER) Not performed Normal >=40 (MI+N P) [facility] Comment on above: Order Comment: Metho d of Collection:: Masturbation Has the patient had a vasectomy?: N Type of Specimen Container:: Sterile Container Abstinence Period:: 48 HRS Kept at body temperature?: Y Any Collection or Transport Problems?: NO Performed By: #### S EMCOMP #### [address] WBC Concent, Semen <1.0 Normal <1.0 [facility] Comment on above: Order Comment: Metho d of Collection:: Masturbation Has the patient had a vasectomy?: N Type of Specimen Container:: Sterile Container Abstinence Period:: 48 HRS Kept at body temperature?: Y Any Collection or Transport Problems?: NO Performed By: #### S EMCOMP #### [address] Semen Analysis, FertilityOrd ered By: Derek Burks on 04-12-2022 Semen Appearance Normal Normal Normal [facility] Comment on above: Order Comment: Metho d of Collection:: Masturbation Has the patient had a vasectomy?: N Type of Specimen Container:: Sterile Container Abstinence Period:: 48 HRS Kept at body temperature?: Y Any Collection or Transport Problems?: NO Performed By: #### S EMCOMP #### [facility] [address] Semen pH 6.0 Low >=7.2 [facility] Comment on above: Order Comment: Metho d of Collection:: Masturbation Has the patient had a vasectomy?: N Type of Specimen Container:: Sterile Container Abstinence Period:: 48 HRS Kept at body temperature?: Y Any Collection or Transport Problems?: NO Performed By: #### S EMCOMP #### [facility] [address] Semen liquefaction time abhinav urementOrdered By: Derek Burks on 04-12-2022 Liquefaction (Jeanie) [Time] Normal <=60 min [facility] Semen volumeOrdered By: Celso Burks on 04-12-2022 Specimen volume (Jeanie) 1.0 mL >1.5 [facility] [place] Sperm countOrdered By: Derek Burks on 04-12-2022 Spermatozoa (Jeanie) [#/Vol] <2.0 M/mL >15 [facility] Comment on above: Suboptimal specimen. Unable to perform morphology testing. Sperm morphologyOrdered By: Derek Burks on 04-12-2022 Spermatozoa Nom (Jeanie) TNP [facility] [place] Comment on above: Test not performed LAMOTRIGINEon 04-09-2022 Lamotrigine, Serum 6.7 ug/mL Normal 2.0-20.0 [facility] Comment on above: Result Comment: Dete ction Limit = 1.0 Performed By: #### C BC #### [facility] [address] [address] [address] Bob Nelson LAMOTRIGINEon 03-02-2022 Lamotrigine, Serum 2.3 ug/mL Normal 2.0-20.0 [facility] Comment on above: Result Comment: Dete ction Limit = 1.0 Performed By: #### C MP #### [facility] [address] [address] [address] Bob Nelson OXCARBAZEPINEon 03-01-2022 Oxcarbazepine 5 ug/mL Critically low 10-35 [facility] Comment on above: Result Comment: This test was developed and its performance characteristics determined by [facility]. It has not been cleared or approved by the Food and Drug Administration. Detection Limit = 1 Performed By: #### B MP #### [facility] [address] [address] [address] Bob Nelson CBC AUTO DIFFon 02-28-2022 BASO # 0.0 103/ul Normal 0.0-0.1 [facility] Comment on above: Performed By: #### C MP #### [facility] Laboratory [address] [place] [address] Dr. Bob Nelson Basophils/100 WBC (Bld) 0.5 % Normal 0.2-2.0 [facility] Comment on above: Performed By: #### C MP #### [facility] [address] [place] [address] Dr. Bob Nelson EO # 0.1 103/ul Normal 0.0-0.7 [facility] Comment on above: Performed By: #### C MP #### [facility] [address] [place] [address] Dr. Bob Nelson Eosinophils/100 WBC (Bld) 0.9 % Normal 0.9-7.0 [facility] Comment on above: Performed By: #### C MP #### [facility] [address] [place] [address] Dr. Bob Nelson Erythrocyte distribution width (RBC) [Ratio] 12.8 % Normal 11.0-15.0 [facility] Comment on above: Performed By: #### C MP #### [facility] [address] [place] [address] Dr. Bob Nelson Hematocrit (Bld) [Volume fraction] 43.8 % Normal 42.0-54.0 [facility] Comment on above: Performed By: #### C MP #### [facility] [address] [place] [address] Dr. Bob Nelson Hemoglobin (Bld) [Mass/Vol] 14.9 g/dL Normal 14.0-18.0 [facility] Comment on above: Performed By: #### C MP #### [facility] [address] [place] [address] Dr. Bob Nelson IG # 0.02 10e3/ul Normal 0.00-0.03 [facility] Comment on above: Performed By: #### C MP #### [facility] [address] [place] [address] Dr. Bob Nelson IG % 0.3 % Normal 0.0-0.5 [facility] Comment on above: Performed By: #### C MP #### [facility] [address] [place] [address] Dr. Bob Nelson LYMPH # 2.2 103/ul Normal 1.2-3.8 [facility] Comment on above: Performed By: #### C MP #### [facility] [address] [place] [address] Dr. Bob Nelson Lymphocytes/100 WBC (Bld) 34.0 % Normal 20.5-60.0 [facility] Comment on above: Performed By: #### C MP #### [facility] [address] [place] [address] Dr. Bob Nelson MANUAL DIFF REQ NO Normal [facility] Comment on above: Performed By: #### C MP #### [facility] [address] [place] [address] Dr. Bob Nelson MCH (RBC) [Entitic mass] 28.4 pg Normal 25.9-34.0 [facility] Comment on above: Performed By: #### C MP #### [facility] [address] [place] [address] Dr. Bob Nelson MCHC (RBC) [Mass/Vol] 34.0 g/dL Normal 29.9-35.2 [facility] Comment on above: Performed By: #### C MP #### [facility] [address] [place] [address] Dr. Bob Nelson MCV (RBC) [Entitic vol] 83.6 fL Normal 80.0-94.0 [facility] Comment on above: Performed By: #### C MP #### [facility] [address] [place] [address] Dr. Bob Nelson MONO # 0.5 103/ul Normal 0.3-0.8 [facility] Comment on above: Performed By: #### C MP #### [facility] [address] [place] [address] Dr. Bob Nelson Monocytes/100 WBC (Bld) 7.9 % Normal 1.7-12.0 [facility] Comment on above: Performed By: #### C MP #### [facility] [address] [place] [address] Dr. Bob Nelson NEUT # 3.6 103/ul Normal 1.4-6.5 [facility] Comment on above: Performed By: #### C MP #### [facility] [address] [place] [address] Dr. Bob Nelson Neutrophils/100 WBC (Bld) 56.4 % Normal 43.0-75.0 [facility] Comment on above: Performed By: #### C MP #### [facility] [address] [place] [address] Dr. Bob Nelson Platelet mean volume (Bld) [Entitic vol] 9.5 fL Normal 9.5-13.5 [facility] Comment on above: Performed By: #### C MP #### [facility] [address] [place] [address] Dr. Bob Nelson PLT 192 103/ul Normal 150-450 [facility] Comment on above: Performed By: #### C MP #### [facility] [address] [place] [address] Dr. Bob Nelson RBC 5.24 106/ul Normal 4.70-6.10 [facility] Comment on above: Performed By: #### C MP #### [facility] [address] [place] [address] Dr. Bob Nelson WBC 6.4 103/ul Normal 4.0-11.0 [facility] Comment on above: Performed By: #### C MP #### [facility] [address] [place] [address] Dr. Bob Nelson PROF 14(COMP METB)on 022 Albumin [Mass/Vol] 3.9 g/dL Normal 3.4-5.0 [facility] Comment on above: Performed By: #### C MP #### [facility] [address] [address] [address] Bob Nelson Albumin/Globulin [Mass ratio] 1.3 {ratio} Normal [facility] Comment on above: Performed By: #### C MP #### [facility] [address] [place] [address] Dr. Bob Nelson ALP [Catalytic activity/Vol] 68 U/L Normal 46-116 [facility] Comment on above: Performed By: #### C MP #### [facility] [address] [place] [address] Dr. Bob Nelson ALT [Catalytic activity/Vol] 170 U/L Critically high 16-63 [facility] Comment on above: Performed By: #### C MP #### [facility] [address] [place] [address] Dr. Bob Nelson Anion gap [Moles/Vol] 11.0 mmol/L Normal [facility] Comment on above: Performed By: #### C MP #### [facility] [address] [place] [address] Dr. Bob Nelson AST [Catalytic activity/Vol] 48 U/L Critically high 15-37 [facility] Comment on above: Performed By: #### C MP #### [facility] [address] [address] [address] Bob Nelson Bilirubin [Mass/Vol] 0.6 mg/dL Normal 0.2-1.0 [facility] Comment on above: Performed By: #### C MP #### [facility] [address] [place] [address] Dr. Bob Nelson Calcium [Mass/Vol] 9.1 mg/dL Normal 8.5-10.1 [facility] Comment on above: Performed By: #### C MP #### [facility] [address] [place] [address] Dr. Bob eNlson Chloride [Moles/Vol] 105 mmol/L Normal 98-107 [facility] Comment on above: Performed By: #### C MP #### [facility] [address] [address] [address] Bob Nelson CO2 [Moles/Vol] 28.9 mmol/L Normal 21.0-32.0 [facility] Comment on above: Performed By: #### C MP #### [facility] [address] [address] [address] Bob Nelson Creatinine [Mass/Vol] 0.96 mg/dL Normal 0.70-1.30 [facility] Comment on above: Performed By: #### C MP #### [facility] [address] [place] [address] Dr. Bob Nelson EGFR-AF HUNGARIAN >60 Normal >=60 [facility] Comment on above: Performed By: #### C MP #### [facility] [address] [place] [address] Dr. Bob Nelson EGFR-NON AF HUNGARIAN >60 Normal >=60 [facility] Comment on above: Performed By: #### C MP #### [facility] [address] [place] [address] Dr. Bob Nelson Globulin (S) [Mass/Vol] 3.0 g/dL Normal T [facility] Comment on above: Performed By: #### C MP #### [facility] [address] [place] [address] Dr. Bob Nelson Glucose [Mass/Vol] 98 mg/dL Normal 74-106 [facility] Comment on above: Performed By: #### C MP #### [facility] [address] [address] [address] Bob Nelson Potassium [Moles/Vol] 3.9 mmol/L Normal 3.5-5.1 [facility] Comment on above: Performed By: #### C MP #### [facility] [address] [place] [address] Dr. Bob Nelson Protein [Mass/Vol] 6.9 g/dL Normal 6.4-8.2 [facility] Comment on above: Performed By: #### C MP #### [facility] [address] [address] [address] Bob Nelson Sodium [Moles/Vol] 141 mmol/L Normal 136-145 [facility] Comment on above: Performed By: #### C MP #### [facility] [address] [address] [address] Bob Nelson Urea nitrogen [Mass/Vol] 14.0 mg/dL Normal 7.0-18.0 [facility] Comment on above: Performed By: #### C MP #### [facility] [address] [address] [address] Bob Nelson Urea nitrogen/Creatinine [Mass ratio] 14.6 mg/mg Normal [facility] Comment on above: Performed By: #### C MP #### [facility] [address] [place] [address] Dr. Bob Nelson CBC AUTO DIFFon 02-27-2022 BASO # 0.0 103/ul Normal 0.0-0.1 [facility] Comment on above: Performed By: #### B MP #### [facility] [address] [address] [address] Bob Nelson Basophils/100 WBC (Bld) 0.5 % Normal 0.2-2.0 [facility] Comment on above: Performed By: #### B MP #### [facility] [address] [address] [address] Bob Nelson EO # 0.1 103/ul Normal 0.0-0.7 [facility] Comment on above: Performed By: #### B MP #### [facility] [address] [address] [address] Bob Nelson Eosinophils/100 WBC (Bld) 0.6 % Critically low 0.9-7.0 [facility] Comment on above: Performed By: #### B MP #### [facility] [address] [place] [address] Dr. Bob Nelson Erythrocyte distribution width (RBC) [Ratio] 12.5 % Normal 11.0-15.0 [facility] Comment on above: Performed By: #### B MP #### [facility] [address] [place] [address] Dr. Bob Nelson Hematocrit (Bld) [Volume fraction] 46.1 % Normal 42.0-54.0 [facility] Comment on above: Performed By: #### B MP #### [facility] [address] [place] [address] Dr. Bob Nelson Hemoglobin (Bld) [Mass/Vol] 16.1 g/dL Normal 14.0-18.0 [facility] Comment on above: Performed By: #### B MP #### [facility] [address] [place] [address] Dr. Bob Nelson IG # 0.02 10e3/ul Normal 0.00-0.03 [facility] Comment on above: Performed By: #### B MP #### [facility] [address] [place] [address] Dr. Bob Nelson IG % 0.3 % Normal 0.0-0.5 [facility] Comment on above: Performed By: #### B MP #### [facility] [address] [place] [address] Dr. Bob Nelson LYMPH # 1.3 103/ul Normal 1.2-3.8 [facility] Comment on above: Performed By: #### B MP #### [facility] [address] [place] [address] Dr. Bob Nelson Lymphocytes/100 WBC (Bld) 16.2 % Critically low 20.5-60.0 [facility] Comment on above: Performed By: #### B MP #### [facility] [address] [place] [address] Dr. Bob Nelson MANUAL DIFF REQ NO Normal [facility] Comment on above: Performed By: #### B MP #### [facility] [address] [place] [address] Dr. Bob Nelson MCH (RBC) [Entitic mass] 28.6 pg Normal 25.9-34.0 [facility] Comment on above: Performed By: #### B MP #### [facility] [address] [address] [address] Bob Nelson MCHC (RBC) [Mass/Vol] 34.9 g/dL Normal 29.9-35.2 [facility] Comment on above: Performed By: #### B MP #### [facility] [address] [place] [address] Dr. Bob Nelson MCV (RBC) [Entitic vol] 81.9 fL Normal 80.0-94.0 [facility] Comment on above: Performed By: #### B MP #### [facility] [address] [place] [address] Dr. Bob Nelson MONO # 0.4 103/ul Normal 0.3-0.8 [facility] Comment on above: Performed By: #### B MP #### [facility] [address] [place] [address] Dr. Bob Nelson Monocytes/100 WBC (Bld) 5.0 % Normal 1.7-12.0 [facility] Comment on above: Performed By: #### B MP #### [facility] [address] [place] [address] Dr. Bob Nelson NEUT # 6.1 103/ul Normal 1.4-6.5 [facility] Comment on above: Performed By: #### B MP #### [facility] [address] [place] [address] Dr. Bob Nelson Neutrophils/100 WBC (Bld) 77.4 % Critically high 43.0-75.0 [facility] Comment on above: Performed By: #### B MP #### [facility] [address] [place] [address] Dr. Bob Nelson Platelet mean volume (Bld) [Entitic vol] 9.5 fL Normal 9.5-13.5 [facility] Comment on above: Performed By: #### B MP #### [facility] [address] [place] [address] Dr. Bob Nelson PLT 203 103/ul Normal 150-450 [facility] Comment on above: Performed By: #### B MP #### [facility] [address] [place], [place] [address] Dr. Bob Nelson RBC 5.63 106/ul Normal 4.70-6.10 [facility] Comment on above: Performed By: #### B MP #### [facility] [address] [place], [place] [address] Dr. Bob Nelson WBC 7.9 103/ul Normal 4.0-11.0 [facility] Comment on above: Performed By: #### B MP #### [facility] [address] [place], [place] [address] HEAD WO CONon [...] CHERI CONNER Date: 2022-02-27 15:43 Normal [facility]on SARS-CoV-2 (COVID-19) RNA MAHESH+probe Ql (Unsp spec) Not detected Normal NOT DETECTED [facility] Comment on above: Result Comment: When diagnostic [...] for this test is supported by the [place] of Health and Human Service's declaration that [...] used). Performed By: #### C MP #### [facility] [address] [place] [address] Dr. Bob Nelson LACTATE/LACTIC ACIDon 2021 Lactate [Moles/Vol] 0.9 mmol/L Normal 0.4-1.9 [facility] Comment on above: Performed By: #### L ACT #### [facility] [address] [place] [address] Dr. Bob Nelson Lactate [Moles/Vol] 3.9 mmol/L Critically high 0.4-1.9 [facility] Comment on above: Performed By: #### B MP #### [facility] [facility] [address] [place] [address] Dr. Bob Nelson PROF CHEM 8 (BAS METB)on Anion gap [Moles/Vol] 16.1 mmol/L Normal [facility] Comment on above: Performed By: #### B MP #### [facility] [address] [place] [address] Dr. Bob Nelson Calcium [Mass/Vol] 8.9 mg/dL Normal 8.5-10.1 [facility] Comment on above: Performed By: #### B MP #### [facility] [address] [place] [address] Dr. Bob Nelson Chloride [Moles/Vol] 99 mmol/L Normal 98-107 [facility] Comment on above: Performed By: #### B MP #### [facility] [address] [place] [address] Dr. Bob Nelson CO2 [Moles/Vol] 24.0 mmol/L Normal 21.0-32.0 [facility] Comment on above: Performed By: #### B MP #### [facility] [address] [address] [address] Bob Nelson Creatinine [Mass/Vol] 1.13 mg/dL Normal 0.70-1.30 [facility] Comment on above: Performed By: #### B MP #### [facility] [address] [address] [address] Bob Nelson EGFR-AF HUNGARIAN >60 Normal >=60 [facility] Comment on above: Performed By: #### B MP #### [facility] [address] [place] [address] Dr. Bob Nelson EGFR-NON AF HUNGARIAN >60 Normal >=60 [facility] Comment on above: Performed By: #### B MP #### [facility] [address] [place] [address] Dr. Bob Nelson Glucose [Mass/Vol] 158 mg/dL Critically high 74-106 T [facility] Comment on above: Performed By: #### B MP #### [facility] [address] [place] [address] Dr. Bob Nelson Potassium [Moles/Vol] 4.1 mmol/L Normal 3.5-5.1 [facility] Comment on above: Performed By: #### B MP #### [facility] [address] [place] [address] Dr. Bob Nelson Sodium [Moles/Vol] 135 mmol/L Critically low 136-145 [facility] Comment on above: Performed By: #### B MP #### [facility] [address] [place] [address] Dr. Bob Nelson Urea nitrogen [Mass/Vol] 15.0 mg/dL Normal 7.0-18.0 [facility] Comment on above: Performed By: #### B MP #### [facility] [address] [place] [address] Dr. Bob Nelson Urea nitrogen/Creatinine [Mass ratio] 13.3 mg/mg Normal [facility] Comment on above: Performed By: #### B MP #### [facility] [address] [place] [address] Dr. 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 Bob Nelson Clarity (U) CLEAR Normal CLEAR [facility] Comment on above: Performed By: #### C MP #### [facility] [address] [place] [address] Dr. Bob Nelson Color (U) LT. YELLOW Normal YELLOW [facility] Comment on above: Performed By: #### C MP #### [facility] [address] [place] [address] Dr. Bob Nelson Glucose Ql (U) Negative Normal NEGATIVE [facility] Comment on above: Performed By: #### C MP #### [facility] [address] [place] [address] Dr. Bob Nelson Hemoglobin Ql (U) TRACE-INTACT Abnormal NEGATIVE [facility] Comment on above: Performed By: #### C MP #### [facility] [address] [place] [address] Dr. Bob Nelson Ketones Ql (U) Negative Normal NEGATIVE [facility] Comment on above: Performed By: #### C MP #### [facility] [address] [place] [address] Dr. Bob Nelson LEUKOCYTES Negative Normal NEGATIVE [facility] Comment on above: Performed By: #### C MP #### [facility] [address] [place] [address] Dr. Bob Nelson Nitrite Ql (U) Negative Normal NEGATIVE [facility] Comment on above: Performed By: #### C MP #### [facility] [address] [place] [address] Dr. Bob Nelson pH (U) 5.5 [pH] Normal 5-9 [facility] Comment on above: Performed By: #### C MP #### [facility] [address] [place] [address] Dr. Bob Nelson SPEC GRAVITY 1.010 Normal 1.005-<=1.02 5 [facility] Comment on above: Performed By: #### C MP #### [facility] [address] [place] [address] Dr. Bob Nelson UA PROTEIN Negative Normal NEGATIVE/ TRACE [facility] Comment on above: Performed By: #### C MP #### [facility] [address] [place] [address] Dr. Bob Nelson UR MICRO IND INDICATED Normal [facility] Comment on above: Performed By: #### C MP #### [facility] [address] [place] [address] Dr. Bob Nelson Urobilinogen Qn (U) 0.2 {Lance'U}/dL Normal 0.2 - 1. 0 [facility] Comment on above: Performed By: #### C MP #### [facility] [address] [place] [address] Dr. Bob Nelson URINE MICROSCOPIC ONLYon BACTERIA NONE SEEN Normal NONE SEEN [facility] Comment on above: Performed By: #### C MP #### [facility] [address] [place] [address] Dr. Bob Nelson Bacteria identified Cx Nom (U) NOT INDICATED Normal [facility] Comment on above: Performed By: #### C MP #### [facility] [address] [place] [address] Dr. Bob Nelson CAST NONE SEEN Normal NONE SEEN [facility] Comment on above: Performed By: #### C MP #### [facility] [address] [place] [address] Dr. Bob Nelson Crystals LM Nom (Urine sed) NONE SEEN Normal NONE SEEN [facility] Comment on above: Performed By: #### C MP #### [facility] [address] [place] [address] Dr. Bob Nelson Epithelial cells LM Ql (Urine sed) RARE Normal NONE SEEN /RARE [facility] Comment on above: Performed By: #### C MP #### [facility] [address] [place] [address] Dr. Bob Nelson MUCOUS NONE SEEN Normal NONE SEEN [facility] Comment on above: Performed By: #### C MP #### [facility] [address] [address] [address] Bob Nelson RBC 0-2 Normal 0-2 [facility] Comment on above: Performed By: #### C MP #### [facility] [address] [place] [address] Dr. Bob Nelson WBC NONE SEEN Normal NONE SEEN [facility] Comment on above: Performed By: #### C MP #### [facility] [address] [place] [address] Dr. Bob Nelson XR CHEST 2 Von [...] CHERI CONNER Date: 2022-02-27 15:45 Normal [facility] CBC AUTO DIFFon 02-02-2022 BASO # 0.0 103/ul Normal 0.0-0.1 [facility] Comment on above: Performed By: #### C MP #### [facility] [address] [place] [address] Dr. Bob Nelson Basophils/100 WBC (Bld) 0.2 % Normal 0.2-2.0 [facility] Comment on above: Performed By: #### C MP #### [facility] [address] [place] [address] Dr. Bob Nelson EO # 0.1 103/ul Normal 0.0-0.7 [facility] Comment on above: Performed By: #### C MP #### [facility] [address] [place] [address] Dr. Bob Nelson Eosinophils/100 WBC (Bld) 0.7 % Critically low 0.9-7.0 [facility] Comment on above: Performed By: #### C MP #### [facility] [address] [place] [address] Dr. Bob Nelson Erythrocyte distribution width (RBC) [Ratio] 12.4 % Normal 11.0-15.0 [facility] Comment on above: Performed By: #### C MP #### [facility] [address] [place] [address] Dr. Bob Nelson Hematocrit (Bld) [Volume fraction] 46.1 % Normal 42.0-54.0 [facility] Comment on above: Performed By: #### C MP #### [facility] [address] [place] [address] Dr. Bob Nelson Hemoglobin (Bld) [Mass/Vol] 16.0 g/dL Normal 14.0-18.0 [facility] Comment on above: Performed By: #### C MP #### [facility] [address] [place] [address] Dr. Bob Nelson IG # 0.03 10e3/ul Normal 0.00-0.03 [facility] Comment on above: Performed By: #### C MP #### [facility] [address] [place] [address] Dr. Bob Nelson IG % 0.3 % Normal 0.0-0.5 [facility] Comment on above: Performed By: #### C MP #### [facility] [address] [place] [address] Dr. Bob Nelson LYMPH # 1.5 103/ul Normal 1.2-3.8 [facility] Comment on above: Performed By: #### C MP #### [facility] [address] [place] [address] Dr. Bob Nelson Lymphocytes/100 WBC (Bld) 16.0 % Critically low 20.5-60.0 [facility] Comment on above: Performed By: #### C MP #### [facility] [address] [place] [address] Dr. Bob Nelson MANUAL DIFF REQ NO Normal [facility] Comment on above: Performed By: #### C MP #### [facility] [address] [address] [address] Bob Nelson MCH (RBC) [Entitic mass] 28.6 pg Normal 25.9-34.0 [facility] Comment on above: Performed By: #### C MP #### [facility] [address] [place] [address] Dr. Bob Nelson MCHC (RBC) [Mass/Vol] 34.7 g/dL Normal 29.9-35.2 [facility] Comment on above: Performed By: #### C MP #### [facility] [address] [place] [address] Dr. Bob Nelson MCV (RBC) [Entitic vol] 82.5 fL Normal 80.0-94.0 [facility] Comment on above: Performed By: #### C MP #### [facility] [address] [place] [address] Dr. Bob Nelson MONO # 0.6 103/ul Normal 0.3-0.8 [facility] Comment on above: Performed By: #### C MP #### [facility] [address] [place] [address] Dr. Bob Nelson Monocytes/100 WBC (Bld) 5.7 % Normal 1.7-12.0 [facility] Comment on above: Performed By: #### C MP #### [facility] [address] [place] [address] Dr. Bob Nelson NEUT # 7.4 103/ul Critically high 1.4-6.5 [facility] Comment on above: Performed By: #### C MP #### [facility] [address] [place] [address] Dr. Bob Nelson Neutrophils/100 WBC (Bld) 77.1 % Critically high 43.0-75.0 [facility] Comment on above: Performed By: #### C MP #### [facility] [address] [place] [address] Dr. Bob Nelson Platelet mean volume (Bld) [Entitic vol] 9.3 fL Critically low 9.5-13.5 [facility] Comment on above: Performed By: #### C MP #### [facility] [address] [place] [address] Dr. Bob Nelson PLT 184 103/ul Normal 150-450 [facility] Comment on above: Performed By: #### C MP #### [facility] [address] [place] [address] Dr. Bob Nleson RBC 5.59 106/ul Normal 4.70-6.10 [facility] Comment on above: Performed By: #### C MP #### [facility] [address] [place] [address] Dr. Bob Nelson WBC 9.6 103/ul Normal 4.0-11.0 [facility] Comment on above: Performed By: #### C MP #### [facility] [address] [place] [address] Dr. Bob Nelson PROF 14(COMP METB)on 022 Albumin [Mass/Vol] 4.3 g/dL Normal 3.4-5.0 [facility] Comment on above: Performed By: #### C BC #### [facility] [address] [place] [address] Dr. Bob Nelson Albumin/Globulin [Mass ratio] 1.3 {ratio} Normal [facility] Comment on above: Performed By: #### C BC #### [facility] [address] [place] [address] Dr. Bob Nelson ALP [Catalytic activity/Vol] 86 U/L Normal 46-116 [facility] Comment on above: Performed By: #### C BC #### [facility] [address] [place] [address] Dr. Bob Nelson ALT [Catalytic activity/Vol] 87 U/L Critically high 16-63 [facility] Comment on above: Performed By: #### C BC #### [facility] [address] [place] [address] Dr. Bob Nelson Anion gap [Moles/Vol] 11.9 mmol/L Normal [facility] Comment on above: Performed By: #### C BC #### [facility] [address] [place] [address] Dr. Bob Nelson AST [Catalytic activity/Vol] 44 U/L Critically high 15-37 [facility] Comment on above: Performed By: #### C BC #### [facility] [address] [address] [address] Bob Nelson Bilirubin [Mass/Vol] 0.3 mg/dL Normal 0.2-1.0 [facility] Comment on above: Performed By: #### C BC #### [facility] [address] [address] [address] Bob Nelson Calcium [Mass/Vol] 9.3 mg/dL Normal 8.5-10.1 [facility] Comment on above: Performed By: #### C BC #### [facility] [address] [address] [address] Bob Nelson Chloride [Moles/Vol] 102 mmol/L Normal 98-107 [facility] Comment on above: Performed By: #### C BC #### [facility] [address] [address] [address] Bob Nelson CO2 [Moles/Vol] 27.8 mmol/L Normal 21.0-32.0 [facility] Comment on above: Performed By: #### C BC #### [facility] [address] [place] [address] Dr. Bob Nelson Creatinine [Mass/Vol] 1.16 mg/dL Normal 0.70-1.30 [facility] Comment on above: Performed By: #### C BC #### [facility] [address] [address] [address] Bob Nelson EGFR-AF HUNGARIAN >60 Normal >=60 [facility] Comment on above: Performed By: #### C BC #### [facility] [address] [place] [address] Dr. Bob Nelson EGFR-NON AF HUNGARIAN >60 Normal >=60 [facility] Comment on above: Performed By: #### C BC #### [facility] [address] [place] [address] Dr. Bob Nelson Globulin (S) [Mass/Vol] 3.3 g/dL Normal [facility] Comment on above: Performed By: #### C BC #### [facility] [address] [address] [address] Bob Nelson Glucose [Mass/Vol] 112 mg/dL Critically high 74-106 [facility] Comment on above: Performed By: #### C BC #### [facility] [address] [address] [address] Bob Nelson Potassium [Moles/Vol] 3.7 mmol/L Normal 3.5-5.1 [facility] Comment on above: Performed By: #### C BC #### [facility] [address] [address] [address] Bob Nelson Protein [Mass/Vol] 7.6 g/dL Normal 6.4-8.2 [facility] Comment on above: Performed By: #### C BC #### [facility] [address] [address] [address] Bob Nelson Sodium [Moles/Vol] 138 mmol/L Normal 136-145 [facility] Comment on above: Performed By: #### C BC #### [facility] [address] [address] [address] Bob Nelson Urea nitrogen [Mass/Vol] 11.0 mg/dL Normal 7.0-18.0 [facility] Comment on above: Performed By: #### C BC #### [facility] [address] [address] [address] Bob Nelson Urea nitrogen/Creatinine [Mass ratio] 9.5 mg/mg Normal [facility] Comment on above: Performed By: #### C BC #### [facility] [address] [address] [address] 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 Bob Nelson Basophils/100 WBC (Bld) 0.6 % Normal 0.2-2.0 [facility] Comment on above: Performed By: #### C BC #### [facility] [address] [place] [address] Dr. Bob Nelson EO # 0.0 103/ul Normal 0.0-0.7 [facility] Comment on above: Performed By: #### C BC #### [facility] [address] [address] [address] Bob Nelson Eosinophils/100 WBC (Bld) 0.6 % Critically low 0.9-7.0 [facility] Comment on above: Performed By: #### C BC #### [facility] [address] [place] [address] Dr. Bob Nelson Erythrocyte distribution width (RBC) [Ratio] 12.3 % Normal 11.0-15.0 [facility] Comment on above: Performed By: #### C BC #### [facility] [address] [place] [address] Dr. Bob Nelson Hematocrit (Bld) [Volume fraction] 48.5 % Normal 42.0-54.0 [facility] Comment on above: Performed By: #### C BC #### [facility] [address] [place] [address] Dr. Bob Nelson Hemoglobin (Bld) [Mass/Vol] 16.1 g/dL Normal 14.0-18.0 [facility] Comment on above: Performed By: #### C BC #### [facility] [address] [place] [address] Dr. Bob Nelson IG # 0.03 10e3/ul Normal 0.00-0.03 [facility] Comment on above: Performed By: #### C BC #### [facility] [address] [place] [address] Dr. Bob Nelson IG % 0.4 % Normal 0.0-0.5 [facility] Comment on above: Performed By: #### C BC #### [facility] [address] [place] [address] Dr. Bob Nelson LYMPH # 2.2 103/ul Normal 1.2-3.8 [facility] Comment on above: Performed By: #### C BC #### [facility] [address] [place] [address] Dr. Bob Nelson Lymphocytes/100 WBC (Bld) 30.6 % Normal 20.5-60.0 [facility] Comment on above: Performed By: #### C BC #### [facility] [address] [place] [address] Dr. Bob Nelson MANUAL DIFF REQ NO Normal [facility] Comment on above: Performed By: #### C BC #### [facility] [address] [place] [address] Dr. Bob Nelson MCH (RBC) [Entitic mass] 28.1 pg Normal 25.9-34.0 [facility] Comment on above: Performed By: #### C BC #### [facility] [address] [place] [address] Dr. Bob Nelson MCHC (RBC) [Mass/Vol] 33.2 g/dL Normal 29.9-35.2 [facility] Comment on above: Performed By: #### C BC #### [facility] [address] [place] [address] Dr. Bob Nelson MCV (RBC) [Entitic vol] 84.6 fL Normal 80.0-94.0 [facility] Comment on above: Performed By: #### C BC #### [facility] [address] [place] [address] Dr. Bob Nelson MONO # 0.4 103/ul Normal 0.3-0.8 [facility] Comment on above: Performed By: #### C BC #### [facility] [address] [place] [address] Dr. Bob Nelson Monocytes/100 WBC (Bld) 6.1 % Normal 1.7-12.0 [facility] Comment on above: Performed By: #### C BC #### [facility] [address] [place] [address] Dr. Bob Nelson NEUT # 4.4 103/ul Normal 1.4-6.5 [facility] Comment on above: Performed By: #### C BC #### [facility] [address] [place] [address] Dr. Bob Nelson Neutrophils/100 WBC (Bld) 61.7 % Normal 43.0-75.0 [facility] Comment on above: Performed By: #### C BC #### [facility] [address] [place] [address] Dr. Bob Nelson Platelet mean volume (Bld) [Entitic vol] 9.5 fL Normal 9.5-13.5 [facility] Comment on above: Performed By: #### C BC #### [facility] [address] [place] [address] Dr. Bob Nelson PLT 228 103/ul Normal 150-450 [facility] Comment on above: Performed By: #### C BC #### [facility] [address] [place] [address] Dr. Bob Nelson RBC 5.73 106/ul Normal 4.70-6.10 [facility] Comment on above: Performed By: #### C BC #### [facility] [address] [place] [address] Dr. Bob Nelson WBC 7.2 103/ul Normal 4.0-11.0 [facility] Comment on above: Performed By: #### C BC #### [facility] [address] [place] [address] CSPINE WO CONon [...] by: TRINITY KING Date: 2021-12-30 20:[address] [facility] [address] HEAD WO CONon 12-30-2021 CT HEAD [...] by: ERNESTO GIRON Date: 2021-12-30 20:37 Normal [facility] PROF CHEM 8 (BAS METB)on Anion gap [Moles/Vol] 24.1 mmol/L Normal [facility] Comment on above: Performed By: #### B MP #### [facility] [address] [place] [address] Dr. Bob Nelson Calcium [Mass/Vol] 9.3 mg/dL Normal 8.5-10.1 [facility] Comment on above: Performed By: #### B MP #### [facility] [address] [place] [address] Dr. Bob Nelson Chloride [Moles/Vol] 101 mmol/L Normal 98-107 [facility] Comment on above: Performed By: #### B MP #### [facility] [address] [place] [address] Dr. Bob Nelson CO2 [Moles/Vol] 16.9 mmol/L Critically low 21.0-32.0 [facility] Comment on above: Performed By: #### B MP #### [facility] [address] [place] [address] Dr. Bob Nelson Creatinine [Mass/Vol] 1.13 mg/dL Normal 0.70-1.30 [facility] Comment on above: Performed By: #### B MP #### [facility] [address] [place] [address] Dr. Bob Nelson EGFR-AF HUNGARIAN >60 Normal >=60 [facility] Comment on above: Performed By: #### B MP #### [facility] [address] [place] [address] Dr. Bob Nelson EGFR-NON AF HUNGARIAN >60 Normal >=60 [facility] Comment on above: Performed By: #### B MP #### [facility] [address] [place] [address] Dr. Bob Nelson Glucose [Mass/Vol] 107 mg/dL Critically high 74-106 [facility] Comment on above: Performed By: #### B MP #### [facility] [address] [place] [address] Dr. Bob Nelson Potassium [Moles/Vol] 4.0 mmol/L Normal 3.5-5.1 [facility] Comment on above: Performed By: #### B MP #### [facility] [address] [place] [address] Dr. Bob Nelson Sodium [Moles/Vol] 138 mmol/L Normal 136-145 [facility] Comment on above: Performed By: #### B MP #### [facility] [address] [place], [place] [address] Dr. Bob Nelson Urea nitrogen [Mass/Vol] 14.0 mg/dL Normal 7.0-18.0 [facility] Comment on above: Performed By: #### B MP #### [facility] [address] [place], [place] [address] Dr. Bob Nelson Urea nitrogen/Creatinine [Mass ratio] 12.4 mg/mg Normal [facility] Comment on above: Performed By: #### B MP #### [facility] [address] [place], [place] [address] Dr. Bob Nelson ELECTROENCEPHALOGRAMon 11-[address] [address] ELECTROENCEPHALOGRAM REPORT PATIENT NAME: COREY ALONSO : 1995 MED REC NO: [id number] ROOM: ACCOUNT NO: [id number] ADMIT DATE: 11/28/2021 PROVIDER: Brian Granado DATE [...] or epileptiform activity. BRIAN GRANADO FLORECITA/Harinder_[id number] Doc#: [id number] CC: Emeli Chi Cnp Normal [facility] MRI BRAIN WO CONTRASTon 05-0 MRI BRAIN WO CONTRAST EXAMINATION: MRI OF THE BRAIN WITHOUT CONTRAST 11/28/2021 9:44 am TECHNIQUE: Multiplanar multisequence MRI of the brain was performed without the administration of intravenous contrast. COMPARISON: None HISTORY: ORDERING SYSTEM PROVIDED HISTORY: Partial symptomatic epilepsy with complex partial seizures, intractable, without status epilepticus ([facility]) TECHNOLOGIST PROVIDED HISTORY: epilepsy What is [...] Anjali Lozoya MD 11/28/21 Final result Normal [facility] COREY ALONSO III ([id number]) 1995 Date Time Provider Department 11/23/21 WON [...] Encounter Status:Closed by WON HUERTA on 11/23/21 [facility] C[facility] Telephone (UROLAV) COREY ALONSO III ([id number]) 1995 Date Time Provider Department 11/22/21 DOMI [...] once they're back I did offer the resmiot customer service number, he said thanks but [...] GRETCHEN DURAN on 01/04/22 Normal [facility] SEMEN ANALYSIS COMPLon 11-15 Collection time (Jeanie) [Date/time] 1129 Normal [facility] Comment on above: Order Comment: Speci men Type: SEMINAL FLUID SPECIMENOrdering Facility: [facility] Address: [address] [place] [address] Result Comment: 1130 Performed By: #### 1 0579-1, SEMSTN, SEMENR ####EMELY ANDROLOGYCLIA [id number] [facility] [place] [address] Color (Jeanie) Malone Opalescent Normal [facility] Comment on above: Order Comment: Speci men Type: SEMINAL FLUID SPECIMENOrdering Facility: [facility] Address: [address] [place] [address] Performed By: #### 1 0579-1, SEMSTN, SEMENR ####EMELY ANDROLOGYCLIA [id number] [facility] [place] [address] DATE OF ANALYSIS 11.15.21 [facility] Comment on above: Order Comment: Speci men Type: SEMINAL FLUID SPECIMENOrdering Facility: [facility] Address: [address] [place] [address] Performed By: #### 1 0579-1, SEMSTN, SEMENR ####EMELY ANDROLOGYCLIA [id number] [facility] [place] [address] pH (Jeanie) 6.0 Low >=7.2 [facility] Comment on above: Order Comment: Speci men Type: SEMINAL FLUID SPECIMENOrdering Facility: [facility] Address: [address] [place] [address] Performed By: #### 1 0579-1, SEMSTN, SEMENR ####EMELY ANDROLOGYCLIA [id number] [facility] [place] [address] Round cells (Jeanie) [#/Vol] 14.00 M/mL High <1.00 [facility] Comment on above: Order Comment: Speci men Type: SEMINAL FLUID SPECIMENOrdering Facility: [facility] Address: [address] [address] Performed By: #### 1 0579-1, SEMSTN, SEMENR ####EMELY ANDROLOGYCLIA [id number] [facility] [place] [address] SEMEN COMMENT 2 No sperm seen on unspun or spun wet preps. See special stain. Normal [facility] Comment on above: Order Comment: Speci men Type: SEMINAL FLUID SPECIMENOrdering Facility: [facility] Address: [address] [address] Performed By: #### 1 0579-1, SEMSTN, SEMENR ####EMELY ANDROLOGYCLIA [id number] [facility] [place] [address] Sexual abstinence duration [Time] 4.0 Days Normal [facility] Comment on above: Order Comment: Speci men Type: SEMINAL FLUID SPECIMENOrdering Facility: [facility] Address: [address] [place] [address] Performed By: #### 1 0579-1, SEMSTN, SEMENR ####EMELY ANDROLOGYCLIA [id number] [facility] [place] [address] Specimen volume (Jeanie) 0.5 mL Low >=1.5 [facility] Comment on above: Order Comment: Speci men Type: SEMINAL FLUID SPECIMENOrdering Facility: [facility] Address: [address] [address] Performed By: #### 1 0579-1, SEMSTN, SEMENR ####EMELY ANDROLOGYCLIA [id number] [facility] [place] [address] Spermatozoa (Jeanie) [#/Vol] 0.00 M/mL Low >=15.00 [facility] Comment on above: Order Comment: Speci men Type: SEMINAL FLUID SPECIMENOrdering Facility: [facility] Address: [address] [place] [address] Result Comment: 0.00 Performed By: #### 1 0579-1, SEMSTN, SEMENR ####EMELY ANDROLOGYCLIA [id number] [facility] [place] [address] Spermatozoa Normal/100 spermatozoa (Jeanie) Normal [facility] Comment on above: Order Comment: Speci men Type: SEMINAL FLUID SPECIMENOrdering Facility: [facility] Address: [address] [place] [address] Result Comment: Coun t too low to perform accurate morphology. Performed By: #### 1 0579-1, SEMSTN, SEMENR ####EMELY ANDROLOGYCLIA [id number] [facility] [place] [address] TIME TO ANALYSIS 22 Minutes Normal 0-60 [facility] Comment on above: Order Comment: Speci men Type: SEMINAL FLUID SPECIMENOrdering Facility: [facility] Address: [address] [place] [address] Performed By: #### 1 0579-1, SEMSTN, SEMENR ####EMELY ANDROLOGYCLIA [id number] [facility] [place] [address] Viscosity Ql (Jeanie) Normal Normal [facility] Comment on above: Order Comment: Speci men Type: SEMINAL FLUID SPECIMENOrdering Facility: [facility] Address: [address] [place] [address] Performed By: #### 1 0579-1, SEMSTN, SEMENR ####EMELY ANDROLOGYCLIA [id number] [facility] [place] [address] SPECIAL STAIN SEMENon 2021 NFPICS STAIN No spermatozoa seen on NFPIC stain. Normal [facility] Comment on above: Order Comment: Speci men Type: SEMINAL FLUID SPECIMENOrdering Facility: [facility] Address: [address] Performed By: #### 1 0579-1, SEMSTN, SEMENR ####EMELY ANDROLOGYCLIA [id number] [facility] [place] [address] WBC # Smnon 11-15-2021 WBC (Jeanie) [#/Vol] 0.0 M/mL Normal <1.0 [facility] Comment on above: Order Comment: Speci men Type: SEMINAL FLUID SPECIMENOrdering Facility: [facility] Address: [address] [place] [address] Performed By: #### 1 0579-1, SEMSTN, SEMENR ####EMELY ANDROLOGYCLIA [id number] [facility] [place] [address] ANES POSTPROC EVALon 022 ANES POSTPROC EVAL HNO ID: [id number] Author: Tung Macias MD Service: Anesthesiology Author Type: Anesthesiologist Type: Anesthesia Postprocedure Evaluation Filed: 09/01/2021 6:31 AM Note Text: POST ANESTHESIA EVALUATION NOTE : 1995 Procedure Summary Date: 08/31/21 Room / Location: [address] / [facility] Anesthesia Start: 1303 Anesthesia Stop: [...] September 01, 2021 TIME: 6:31 AM CSN: [id number] [facility] ANES PRE-OPon 08-31-2021 ANES PRE-OP HNO ID: [id number] Author: Tung Macias MD Service: Anesthesiology Author Type: Anesthesiologist Type: Anesthesia Preprocedure Evaluation Filed: 08/31/2021 12:08 PM Note Text: ANESTHESIOLOGY DAY OF SURGERY NOTE : 1995 Procedure Information Date/Time: 08/31/21 1215 Procedure: CYSTOURETHROSCOPY W/ INCISION OF EJACULATORY DUCTS (Right Urethra) Location: [facility] / [facility] Surgeons: Domi Carrera MD Estimated body mass [...] August 31, 2021 TIME: 12:08 PM CSN: [id number] [facility] OPERATIVE NOon 08-31-2021 OPERATIVE NO HNO ID: [id number] Author: Domi Carrera MD Service: Urology Author Type: Physician Type: Operative Report Filed: 08/31/2021 3:22 PM Note Text: [facility] UROLOGY OPERATIVE REPORT Patient Name: Corey Alonso III Patient Log ID: [id number] Surgery Date: 08/31/2021 Incision/Procedure Start Time: 1:17 PM Incision Close/Procedure End Time: 1:47 PM Surgeon(s) and Master Cook(s): Surgeon(s) and Role: * Domi Carrera MD [...] made to terminate the procedure. An 18Fr clark's point tip catheter was inserted over a solo wire and used to drain the bladder. 10cc was added to the balloon. The patient tolerated the procedure well and was taken to the recovery area in stable condition. Estimated Blood Loss 5mL Specimens * No specimens in log * Implantable Devices None Drains 1. 18Fr clark's point tip Leal (10cc in balloon) Complications None Accidental perforations or lacerations None The primary surgeon performed the procedure with assistance from the resident Dictated by Won Huerta MD, PhD on behalf of Domi Carrera MD [facility] 08-28-2021 [facility] Telephone (URON) COREY ALONSO III ([id number]) 1995 Date Time Provider Department 08/28/21 OWN HUERTA During your visit today, we recorded [...] WON HUERTA on 08/28/21 Normal [facility] Self Check COVIDon 2 SARS-CoV-2 (COVID-19) RNA MAHESH+probe Ql (Unsp spec) UPPER RESPIRATORY TRACT SWAB Normal [facility] Comment on above: Performed By: #### H CCOVD #### [place] [address] SARS-CoV-2 (COVID-19) RNA MAHESH+probe Ql (Unsp spec) Negative for COVID19 (SARS CoV2) by RT-PCR or equivalent method. Normal Negative for COVID19 (SARS CoV2) by RT-PCR or equivalent method. [facility] Comment on above: Result Comment: This test was developed and its performance characteristics determined by [facility] [place]. This test has been authorized by FDA under an Emergency Use Authorization (EUA). This test has been validated in accordance with the FDA's Guidance Document Policy for Diagnostics Testing in Laboratories Certified to Perform High Complexity Testing under CLIA prior to Emergency use Authorization for Coronavirus Disease 2019 during the Public Health Emergency issued on September 26, 2019. Test performed by [facility], [facility] [place], [address] [place] [id number]. Performed By: #### H CCOVD #### [place] [address] Urine Cultureon 08-28-2021 Bacteria identified Cx Nom (U) Sp. Request/Comment: - Specimen received in preservative Culture Result - <10,000 CFU/ml mixed microbiota Insignificant colony count. No further workup. Normal [facility] Comment on above: Performed By: #### U RCUL ####[facility] [place], [place] [phone] HISTORY PHYSICALon 2 HISTORY PHYSICAL HNO ID: [id number] Author: Gisela Lawton APRN.MATERIAL CLERK Service: ? Author Type: Nurse Practitioner Type: HANDP Filed: 08/03/2021 10:41 AM Note Text: PREANESTHESIA CONSULT CLINIC TELEHEALTH VISIT Patient has been identified by name and date of : Yes This is a virtual visit using E[employer] video visit. It require patient-provider interaction for [...] requiring medication, no history of angina, CHF, PR, cardiac surgery or stents. Denies rest pain, [...] (more content not included)... Normal [facility] CNOVon 05-15-2021 CNOV Office Visit (UROLAV) COREY ALONSO III ([id number]) 1995 M Date Time Provider Department 05/15/21 [...] which included preparing to see the patient, vktz-zl-lymb patient care and completing clinical documentation. Domi [...] DOMI CARRERA on 05/15/21 Normal [facility] Cystic Fibrosis Path Tito 1 CF Path Shanika Report See Below Normal [facility] Comment on above: Result Comment: (NOT E) [...] in 61 74 1 in 231 [facility] 1 in 24 97 1 in 768 [...] pathogenic variants: 1078delT,1154insTC, 1213delT, 1248+1G>A, 1259insA, 1341+1G>A, 0428wkv0, 1525-1G>A, 1548delG, 1677delTA, 1717-1G>A, 1717-8G>A, 1811+1.6kbA>G, 1812-1G>A, 1898+1G>A, 1898+3A>G, 1898+5G>A, 1898+5G>T, 4719hiw1>A, 2143delT, 2183AAtoG, 2184delA, 2184insA, 2307insA, 2347delG, 2585delT, 2622+1G>A, 2711delT, 2789+5G>A, 394delTT, 3007delG, 3120+1G>A, 3120G>A, 3121-1G>A, 0810fgi2, 3272-26A>G, 3659delC, 3791delC, 3849+10KbC>T, 3876delA, 3905insT, 405+1G>A, 406-1G>A, 4005+1G>A, 4016insT, 4209TGTT>AA, 4382delA, 457TAT>G, 574delA, 621+1G>T, 663delT, 711+1G>T, 711+3A>G, 711+5G>A, 712-1G>T, 196ndo31, 935delA, A455E, A559T, CFTRdele2,3, DILVdtcf17,23, D110H, E9776P, zqptyO461, nfqikQ747, X4897C, E585X, E60X, E822X, E831X, E92K, E92X, F508C, A6182X, C4079R, G178R, G330X, G542X, G551D, G85E, G970R, H199Y, I336K, K710X, Q2954L, R5694A, L206W, L467P, L732X, L927P, F2684O, M1V, F6130O, P205S, P67L, R9478V, Q220X, Q39X, Q493X, Q525X, Q552X, Q890X, Q98X, F7027J, S0706V, M7490T, C0143S, R117C, R117H, R334W, R347H, R347P, R352Q, R553X, R560K, R560T, R709X, R75X, R764X, R851X, T2222M, V0352M, X1906J, S341P, S466X, S489X, S492F, S549N, H308R-WVM, N986Z-EKM, S945L, T338I, V520F, L0577M, V3139L (3611), B1658B (3612), R6619P, W401X, W846X, Y3599R (C>A), L4028R (C>G), Y122X (conditionally reported variants: Poly T, I506V, I507V). This test was developed and its performance characteristics determined by [facility] [place] ([facility]). It has not been cleared or approved by the FDA. RT-PLPR is regulated under CLIA as qualified to perform high- complexity testing. This test is used for clinical purposes. It should not be regarded as investigational or for research. REFERENCES: 1. Carrier screening for genetic conditions. Committee Opinion No. 691. [place] [employer]. Obstet Gynecol. 2017;129:e41-55. 2. The Clinical and Functional Translation of CFTR (CFTR2); available at http://[email or web address].org. 3. Iftikhar EA, Darlyn EM, Kassandra LM, et al. CFTR mutation distribution among [place] and individuals: Evaluation in cystic fibrosis patient and carrier screening populations. Caroline Med. 2004;6(5):392-99. 4. For more information about CF consult www.GeneReviews.org. As reviewed by Tyrese Wilks, PhD, [facility] Endtz Teston 01-23-2021 Endtz Test 6.4 M/mL High 0.0-0.1 [facility] Rout Analysis Semenon 2020 Abstinence Time 7 Days Normal [facility] Collection Time 1140 Normal [facility] Comment on above: Result Comment: 1144 Corrected on 01/24 AT 1233: Previously reported as 1141 Concentration 0.00 M/mL Low >15 [facility] Comment on above: Result Comment: 0.00 MOSIT (ORP) Account Credited Normal <1.36 [facility] Semen Age 20 Min Normal 0-60 [facility] Comment on above: Result Comment: OLIVER MARIAH Semen Color OPAQUE Normal [facility] Semen Comment 2 NO SPERM SEEN ON UNSPUN AND SPUN SAMPLES. MODERATE DEBRIS SEEN.,MODERATE ROUND CELL AGGLUTINATION SEEN, SEE SPECIAL STAIN RESULTS. Normal [facility] Comment on above: Result Comment: Arpita ected on 01/24 AT 1239: Previously reported as NO SPEM SEEN ON UNSPUN AND SPUN SAMPLES. MODERATE DEBRIS SEEN. MODERATE ROUND CELL AGGLUTINATION SEEN. SEE SPECIAL STAIN RESULTS. Semen pH 6.0 Low >7.2 [facility] Semen Viscosity NORMAL Normal [facility] Semen Volume 0.30 mL Low >1.5 [facility] Slide No. Semen Rout [id number] Normal [facility] [place] [facility] Undiff Round Cells 7.87 M/mL High <1.0 [facility] Semen Special Stainon 2020 Sperm Stain 1 NO SPERMATOZOA SEEN ON NFPIC STAIN. Normal [facility] CNOVon 01-20-2021 CNOV Office Visit (UROLAV) COREY ALONSO III ([id number]) 1995 M Date Time Provider Department 01/20/21 1:45 PM DOMI CARRERA UROBETHANY During your visit today, we recorded the following information about you: Pulse Blood pressure Weight Height 95/minute 117/65 73.9 kg 1.727 m Domi Carrera MD 01/20/2021 2:15 PM Signed Referred by: Emeli Chi, MATERIAL CLERK [address] [facility] [address] 01/20/2021 CC: failure to conceive. HPI: 25 [...] is within normal limits given the large grvpw-ct-tatx evaluation. ?The left seminal vesicle is not identified. ?The right seminal vesicle is dilated and filled with proteinaceous/hemorr hagic contents. ?Most likely the adjacent tubular structure represents the vas deferens but large ezocy-aw-nxdq evaluation is suboptimal to clarify the anatomy. Localizer images positively document the right kidney, however the left kidney is not identified in the wxozh-mz-sksh. IMPRESSION: * ?Dilated, hemorrhagic/proteina ceous filled, right seminal vesicle and possible the associated vas deferens. ? * ?Inconspicuous left seminal vesicle and left kidney. Previous fertility treatments: Medications: none Fertility history: Prior children: none Prior Semen analyses: none Female factor eval: (she is present) Age 24 yrs G0P) Irregular menses. 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 Normal [facility] Estradiol-17Bon 01-20-2021 Estradiol-17B <25 Normal <38 [facility] Comment on above: Result Comment: This test is not suitable for patients receiving treatment with the drug Fulvestrant (Faslodex). The drug causes an interference leading to falsely elevated estradiol results. Performed By: #### T ESTO, E2, FSH, LH ####[place] [address] [place], [place] [phone] [facility] FSH 7.4 mU/mL Normal 1.5-12.4 [facility] Comment on above: Performed By: #### T ESTO, E2, FSH, LH ####[place] [address] [place], [place] [phone] on 01-20-2021 LH 4.8 mU/mL Normal 1.8-10.8 [facility] Comment on above: Performed By: #### T ESTO, E2, FSH, LH ####[place] [address] [place], [place] [phone] Retro Urin Sperm Cnton 01-20 Motility (Ur) 0 % Normal [facility] Retro Comment (Ur) 104 ML OF URINE COLLECTED IN 9 ML OF HTF. SAMPLE SPUN DOWN AND RECONSITUTED. FINAL RECONSTITUTED URINE VOLUME 2.5ML. Normal [facility] Sperm Count (Ur) 0.0 M/mL Normal [facility] Testosteroneon 01-20-2021 Testosterone [Mass/Vol] 275 ng/dL Normal 193-824 [facility] Comment on above: Result Comment: A te stosterone level in the 193-320 ng/dL range with associated clinical symptoms is considered low and may indicate hypogonadism (from [facility] 2010 363:123-135). Results >320 ng/dL are considered normal. Performed By: #### T ESTO, E2, FSH, LH ####[facility] [address] [place], [place] [phone] CARDIAC SHARON ADMITon 017 CKMB 1.27 ng/mL Normal <=2.37 [facility] Comment on above: Performed By: #### B MP, LIPA, LIVER, CMADM ####[facility] [address] Creatine kinase (CK) 79 U/L Normal 55-170 [facility] Comment on above: Performed By: #### B MP, LIPA, LIVER, CMADM ####[facility] [address] [place] INR Coag RelTime (Bld) SEE BELOW Normal [facility] Comment on above: Result Comment: <0.0 34 ng/ml NEGATIVE 0.034-0.119 INDETERMINATE 0.120 AMI CUT OFF Performed By: #### B MP, LIPA, LIVER, CMADM ####[facility] C[address]ky[address] [place] JOSH 36.0 ng/mL Normal <=121.0 [facility] Comment on above: Performed By: #### B MP, LIPA, LIVER, CMADM ####[facility] Ifuww[address]cva[address] [place] TROP <0.012 Normal <=0.034 [facility] Comment on above: Performed By: #### B MP, LIPA, LIVER, CMADM ####[facility] [address] [place], [place] [address]Secbdw [place] CBC AUTO DIFFon 05-03-2017 Basophils Auto #/vol (Bld) 0.0 103/ul Normal 0.0-0.1 [facility] Comment on above: Performed By: #### C BC ####[facility] [address] [place], [place] [address]Dokstl [place] Basophils/100 WBC Auto (Bld) 0.7 % Normal 0.2-2.0 [facility] Comment on above: Performed By: #### C BC ####[facility] [address] [place], [place] [phone] [place] Eosinophils 0.1 103/ul Normal 0.0-0.7 [facility] Comment on above: Performed By: #### C BC ####[facility] [address] [place], [place] [address]Gerken [place] Eosinophils/100 leukocytes 1.1 % Normal 0.9-7.0 [facility] Comment on above: Performed By: #### C BC ####[facility] [address] [place], [place] [phone] [place] Erythrocyte distribution width Auto Ratio (RBC) 12.8 % Normal 11.0-15.0 [facility] Comment on above: Performed By: #### C BC ####[facility] [address] [place], [place] [phone] [place] Erythrocytes (RBC) 4.96 106/ul Normal 4.70-6.10 [facility] Comment on above: Performed By: #### C BC ####[facility] [address] [place] [address]Uglean [place] Hematocrit (HCT) 40.6 % Critically low 42.0-54.0 [facility] Comment on above: Performed By: #### C BC ####[facility] [address] [place], [place] [phone] [place] Hemoglobin mass conc (Bld) 14.1 g/dL Normal 14.0-18.0 [facility] Comment on above: Performed By: #### C BC ####[facility] Ig[address] [place] IG # 0.03 10e3/ul Normal 0.00-0.03 [facility] Comment on above: Performed By: #### C BC ####[facility] Z[address] [place] IG % 0.5 % Normal 0.0-0.5 [facility] Comment on above: Performed By: #### C BC ####[facility] Kark[address]ltx[address] Dmiple Lymphocytes 1.7 103/ul Normal 1.2-3.8 [facility] Comment on above: Performed By: #### C BC ####[facility] [address] [place] [address] [place] Lymphocytes/100 leukocytes 30.6 % Normal 20.5-60.0 [facility] Comment on above: Performed By: #### C BC ####[facility] [address] [place] [address] [place] MANUAL DIFF REQ NO Normal [facility] Comment on above: Performed By: #### C BC ####[facility] [address] [place] [address] [place] MCH 28.4 pg Normal 25.9-34.0 [facility] Comment on above: Performed By: #### C BC ####[facility] [address] [place] [address] [place] MCHC mass conc (RBC) 34.7 g/dL Normal 29.9-35.2 [facility] Comment on above: Performed By: #### C BC ####[facility] [facility] [address] [place] [address] Dimple MCV 81.9 fL Normal 80.0-94.0 [facility] Comment on above: Performed By: #### C BC ####[facility] [address] [place] [address] Dim[place] Monocytes 0.3 103/ul Normal 0.3-0.8 The [facility] Comment on above: Performed By: #### C BC ####[facility] [address] [place], [place] [address]Pkxoor Dimple Monocytes/100 leukocytes 5.7 % Normal 1.7-12.0 [facility] Comment on above: Performed By: #### C BC ####[facility] Cxnaqgtosw0966 [place], [place] [address]Bzjvbj Dimple Neutrophils 3.5 103/ul Normal 1.4-6.5 [facility] Comment on above: Performed By: #### C BC ####[facility] Dzkpucsbva8198 [place], [place] [address]Ozbedc Dimple Neutrophils/100 WBC Auto (Bld) 61.4 % Normal 43.0-75.0 [facility] Comment on above: Performed By: #### C BC ####[facility] [address] [place] [address]Qjmywk [place] Platelet mean volume (PMV) 9.3 fL Critically low 9.5-13.5 [facility] Comment on above: Performed By: #### C BC ####[facility] [address] [place] [address]Qkdfpu Dim[place] Platelets 221 103/ul Normal 150-450 [facility] Comment on above: Performed By: #### C BC ####[facility] Uvvqobfewn5447 [place], [place] [address]Dnmleh Dimple WBC (Leukocytes) 5.7 103/ul Normal 4.0-11.0 The [facility] Comment on above: Performed By: #### C BC ####[facility] Tbzjbgnquj0385 [place], [place] [address]Guttoq Dim[place] LIPASEon 05-03-2017 Lipase 55.0 U/L Normal 23.0-300.0 [facility] Comment on above: Performed By: #### B MP, LIPA, LIVER, CMADM ####[facility] Natkzf[address]4511 [place], [place] [address]Pmodjs Dimple LIVER PROFILEon 05-03-2017 Alanine aminotransferase (ALT) 35 U/L Normal 21-72 [facility] Comment on above: Performed By: #### B MP, LIPA, LIVER, CMADM ####[facility] Lsxl[address]zwci[address] [place] Albumin 4.4 g/dL Normal 3.5-5.0 [facility] Comment on above: Performed By: #### B MP, LIPA, LIVER, CMADM ####[facility] N[address] [place] Albumin/Globulin Ratio 1.4 {ratio} Normal T [facility] Comment on above: Performed By: #### B MP, LIPA, LIVER, CMADM ####[facility] Zvbznwhqxu2315 [address] [place] Alkaline phosphatase (ALP) 74 U/L Normal 38-126 [facility] Comment on above: Performed By: #### B MP, LIPA, LIVER, CMADM ####[facility] Elfpxlnwwg1255 [address] [place] Aspartate aminotransferase (AST) 21 U/L Normal 17-[address] [facility] Comment on above: Performed By: #### B MP, LIPA, LIVER, CMADM ####[facility] Uhahjndtom60[address] [place] BILI, CONJUGATED 0.0 mg/dL Normal 0.0-0.3 The [facility] Comment on above: Performed By: #### B MP, LIPA, LIVER, CMADM ####[facility] Akjwayuqvl6420 [address] [place] Bilirubin Ql (U) 0.8 mg/dL Normal 0.2-1.3 The [facility] Comment on above: Performed By: #### B MP, LIPA, LIVER, CMADM ####[facility] Hyuyedbazs[address] [place] Globulin 3.1 g/dL Normal [facility] Comment on above: Performed By: #### B MP, LIPA, LIVER, CMADM ####[facility] Undohnocwl4010 [address] [place] Protein 7.5 g/dL Normal 6.1-8.2 [facility] Comment on above: Performed By: #### B MP, LIPA, LIVER, CMADM ####[facility] Rrwam[address]fgw7[address] [place] PROF CHEM 8 (BAS METB)on Anion gap 12.7 mmol/L Normal [facility] Comment on above: Performed By: #### B MP, LIPA, LIVER, CMADM ####[facility] Ymjitrowls[address] [place] BUN/Creatinine Ratio 14.4 mg/mg Normal [facility] Comment on above: Performed By: #### B MP, LIPA, LIVER, CMADM ####[facility] Oxvbxompzs27[address] [place] Calcium 9.6 mg/dL Normal 8.4-10.2 [facility] Comment on above: Performed By: #### B MP, LIPA, LIVER, CMADM ####[facility] Wapwqkhfyc6197 [address] [place] Chloride 103 mmol/L Normal 98-107 [facility] Comment on above: Performed By: #### B MP, LIPA, LIVER, CMADM ####[facility] Drjyfurrsl[address] [place] CO2 30.0 mmol/L Normal 22.0-30.0 [facility] Comment on above: Performed By: #### B MP, LIPA, LIVER, CMADM ####[facility] U[address] [place] [id number] [place] Creatinine 0.87 mg/dL Normal 0.66-1.25 [facility] Comment on above: Performed By: #### B MP, LIPA, LIVER, CMADM ####[facility] [address] [place] [id number] [place] eGFR (non-black) Normal 60-N/A The [facility] Comment on above: Performed By: #### B MP, LIPA, LIVER, CMADM ####[facility] Cx[address]wbjh[address]f7016 [place], [place] [address]Fgxuvy [place] Glucose mass conc 100 mg/dL Normal 74-106 [facility] Comment on above: Performed By: #### B MP, LIPA, LIVER, CMADM ####[facility] Qkcridw[address]a8444 [place], [place] [address]Medfru Dim[place] Potassium molar conc 4.0 mmol/L Normal 3.4-5.0 [facility] Comment on above: Performed By: #### B MP, LIPA, LIVER, CMADM ####[facility] Lftjiwtykx2468 [place], [place] [address]Tqisie [place] Sodium 142 mmol/L Normal 137-145 [facility] Comment on above: Performed By: #### B MP, LIPA, LIVER, CMADM ####[facility] Kpsxf[address]xiq0749 [place], [place] [address]Zxojfd Dim[place] Urea nitrogen 13.0 mg/dL Normal 9.0-20.0 [facility] Comment on above: Performed By: #### B MP, LIPA, LIVER, CMADM ####[facility] Ztl[address]tepdc1257 [place], [place] [address]Jcmtxd Dim[place] Vital Signs Date Time Vital Sign Value Performing Clinician Facility 03-31-2023 16:45-0400 Body temperature 98.06 [degF] Ramón Carrizales [facility] 03-31-2023 16:45-0400 Diastolic blood pressure 86 mm[Hg] Ramón Carrizales [facility] 03-31-2023 16:45-0400 Heart rate 80 /min Ramón Carrizales [facility] 03-31-2023 16:45-0400 Respiratory rate 16 /min Ramón Carrizales [facility] 03-31-2023 16:45-0400 SaO2% (BldA) [Mass fraction] 98 % Ramón Carrizales [facility] 03-31-2023 16:45-0400 Systolic blood pressure 136 mm[Hg] Ramón Carrizales [facility] 09-30-2022 21:22-0500 Diastolic blood pressure 83 mm[Hg] Junior Idalmis [facility] 09-30-2022 21:22-0500 Heart rate 90 /min Junior Idalmis [facility] 09-30-2022 21:22-0500 Mean blood pressure 97 mm[Hg] Junior Idalmis [facility] 09-30-2022 21:22-0500 Respiratory rate 19 /min Junior Idalmis [facility] 09-30-2022 21:22-0500 SaO2% (BldA) [Mass fraction] 100 % Junior Idalmis [facility] 09-30-2022 21:22-0500 Systolic blood pressure 124 mm[Hg] Junior Idalmis [facility] 09-30-2022 20:01-0500 Body temperature 98.24 [degF] Junior Idalmis [facility] 09-30-2022 20:01-0500 Diastolic blood pressure 100 mm[Hg] Junior Idalmis [facility] 09-30-2022 20:01-0500 Heart rate 100 /min Junior Idalmis [facility] 09-30-2022 20:01-0500 Respiratory rate 18 /min Junior Idalmis [facility] 09-30-2022 20:01-0500 SaO2% (BldA) [Mass fraction] 99 % Junior Idalmis [facility] 09-30-2022 20:01-0500 Systolic blood pressure 133 mm[Hg] Junior Idalmis [facility] 08-11-2022 08:34-0500 Body temperature 97.59 [degF] Chavez Chirri DO Work Phone: [facility] [employer] 08-11-2022 08:34-0500 Diastolic blood pressure 86 mm[Hg] Chavez Chirri DO Work Phone: [facility] [employer] 08-11-2022 08:34-0500 Heart rate 70 /min Chavez Chirri DO Work Phone: [facility] [employer] 08-11-2022 08:34-0500 Respiratory rate 16 /min Chavez Chirri DO Work Phone: [facility] [employer] 08-11-2022 08:34-0500 SaO2% (BldA) [Mass fraction] 97 % Chavez Chirri DO Work Phone: [facility] [employer] 08-11-2022 08:34-0500 Systolic blood pressure 137 mm[Hg] Chavez Chirri DO Work Phone: [facility] [employer] 08-07-2022 15:24-0500 Body height 172.7 cm Chavez Chirri DO Work Phone: [facility] [employer] 08-07-2022 15:24-0500 Body mass index (BMI) [Ratio] 26.95 kg/m2 Chavez Chirri DO Work Phone: [facility] [employer] 08-07-2022 15:24-0500 Body weight 80.4 kg Chavez Chirri DO Work Phone: [facility] [employer] 02-02-2022 06:32-0400 Body temperature 98.01 [degF] Et3 [facility] 02-02-2022 06:32-0400 Diastolic blood pressure 82 mm[Hg] Et3 [facility] 02-02-2022 06:32-0400 Heart rate 96 /min Et3 [facility] 02-02-2022 06:32-0400 Respiratory rate 18 /min Et3 [facility] 02-02-2022 06:32-0400 SaO2% (BldA) [Mass fraction] 98 % Et3 [facility] 02-02-2022 06:32-0400 Systolic blood pressure 128 mm[Hg] Et3 [facility] Encounters Encounter Date Encounter Type Care Provider Facility Start: 03-31-2023 End: 03-31-2023 Emergency department patient visit Ramón Carrizales Facility:[facility] Start: 03-31-2023 End: 03-31-2023 Emergency department patient visit Ramón Carrizales [facility] Start: 09-30-2022 End: 09-30-2022 Emergency department patient visit Junior HarinderCassandra Raygoza Facility:[facility] Start: 09-30-2022 End: 09-30-2022 Emergency department patient visit Junior SCassandra Raygoza [facility] Start: 09-23-2022 End: 09-23-[address] ORAL BALDWIN . Facility: Start: 09-13-2022 End: 09-13-2022 ambulatory CECILIA CONDE . Facility:[facility] Start: 08-07-2022 End: 08-11-2022 Evaluation and management of inpatient CHAVEZ MORARI [facility] Start: 08-07-2022 End: 08-11-2022 Evaluation and management of inpatient Chavez Lee DO Work Phone: [facility] Renal//Med Surg Start: 06-15-2022 End: 06-16-[address] DOCTOR RAY Facility:[facility] Start: 06-11-2022 End: 06-11-2022 ambulatory EMELI CHI Facility:[facility] Start: 06-11-2022 End: 06-11-2022 ambulatory JOSIAH MAY Facility:[facility] Start: 06-10-2022 End: 06-10-2022 ambulatory JOSIAH MAY Facility:[facility] Start: 05-17-2022 End: 05-18-[address] DOCTOR RAY Facility:[facility] Start: 04-24-2022 End: 04-24-2022 ambulatory BRIAN MOON . 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 Facility:[facility] Start: 02-27-2022 End: 02-27-2022 ambulatory JOSIAH MAY Facility:[facility] Start: 02-02-2022 End: 02-09-2022 ambulatory UNKNOWN PROVIDER Facility:[facility] Start: 02-02-2022 End: 02-02-2022 ambulatory [facility] Emergenc y Triage, Treat and Transport Start: 02-02-2022 End: 02-02-2022 Emergency department patient visit [facility] Emergency Triage, Treat and Transport Comment on above: Arrived Start: 12-30-2021 End: 12-31-2021 ambulatory JOSIAH MYA Facility:[facility] Start: 11-28-2021 End: 12-01-2021 ambulatory TRANGERIKA Morocho [facility] Start: 11-23-2021 Telephone encounter Won berger MD Work Phone: Urology Comment on above: Results Procedures Date Procedure Procedure Detail Performing Clinician Start: 08-07-2022 EEG VIDEO MONITORING Aury Waller FLIGHT OPERATIONS COORDINATOR - MATERIAL CLERK Work Phone: Start: 08-07-2022 BASIC METABOLIC PANE L W/ REFLEX TO MG FOR LOW K Alexia Waller FLIGHT OPERATIONS COORDINATOR - MATERIAL CLERK Work Phone: Start: 08-07-2022 Blood count complete auto&auto difrntl wbc Alexia Waller FLIGHT OPERATIONS COORDINATOR - MATERIAL CLERK Work Phone: Cystoscopy Junior Raygoza Procedure on knee Junior scott Plan of Treatment Date Care Activity Detail Author Start: 2046 Shingles (RZV) Vacci ne (1 of 2) Shingles (RZV) Vaccine (1 of 2) [facility] Start: 11-16-2022 Depression Screen Depression Screen [facility] Start: 10-15-2022 End: 10-15-2022 Patient encounter procedure 10/15/2022 Office Visit Neurology Hans Granado MD [address] [place] [id number] [facility] NE[facility] of [facility] Start: 03-29-2022 Influenza vaccination INFLUENZ A (Season Ended) [facility] Start: 02-26-2022 [facility] Start: 11-04-2019 DTaP/Tdap/Td vaccine (7 - Tdap) DTaP/Tdap/Td vaccine (7 - Tdap) [facility] Start: 2015 Urine microalbumin profile DTAP,TDAP,TD (1 - Tdap) [facility] Start: 2014 HEPATITIS C SCREENING HEPATITIS C [facility] Start: 2014 Hepatitis C screening [facility] Start: 2014 HIV SCREENING HIV SCREENING [facility] Start: 2014 Tetanus + diphtheria + acellular pertussis vaccine (product) Tdap Booster [facility] Start: 2011 HIV screening [facility] Start: 2010 PEDS TO ADULT TRANSI TION ANNUAL ASSESSMENT PEDS TO ADULT TRANSITION ANNUAL ASSESSMENT [facility] Start: 2008 Adult depression screening assessment DEPRESSION SCREENING [facility] Start: 2008 PEDS TO ADULT TRANSI TION INITIAL DISCUSSION PEDS TO ADULT TRANSITION INITIAL DISCUSSION [facility] Start: 2007 HPV VACCINE (1 - Mal e 2-dose series) HPV VACCINE (1 - Male 2-dose series) [facility] Start: 2007 Vaccination for damir n papillomavirus Human Papilloma (HPV) Vaccine (1 - Male 2-dose series) [facility] Start: 2001 COVID-19 VACCINE (1) COVID-19 VACCIN E (1) [facility] Start: 2000 Varicella vaccine (2 of 2 - 2-dose childhood series) Varicella vaccine (2 of 2 - 2-dose childhood series) [facility] Start: 02-05-1997 COVID-19 Vaccine (#1) COVID-19 Vacci ne (#1) [facility] [[facility] Data Set] Initiate Oxygen Therapy Protocol Respiratory Care Routine Daily until discontinued starting 08/07/2022 [facility] Work Phone: Comment on above: Daily until disconti nued starting 08/07/2022 Payers Date Payer Category Payer Self-pay 2021 Unknown [facility] [place] [employer] [id number] 2021-Present [id number] 2018 Medicaid [place] [employer] [employer] [id number] 2018-Present [phone] [address] [place], [place] [address] Medicaid [id number] 1996 Unknown [id number] [id number] 1996 Unknown [id number] 2.16.840.1.702073.3.579.2.173 1996 Unknown [id number] 2.16.840.1.014459.3.579.2.732 1996 Unknown [id number] 2.16.840.1.290442.3.579.2.593 1996 Unknown [id number] 2.16.840.1.764934.3.579.2.593 1996 Unknown [id number] 2.16.840.1.268793.3.579.2.593 1996 Unknown [id number] 2.16.840.1.596412.3.579.2.593 1996 Unknown [id number] 2.16.840.1.796655.3.579.2.593 1996 Unknown [id number] 2.16.840.1.482691.3.579.2.593 1996 Unknown [id number] 2.16.840.1.935316.3.579.2.593 1996 Unknown [id number] 2.16.840.1.912134.3.579.2.593 1996 Unknown [id number] 2.16.840.1.368587.3.579.2.593 1996 Unknown [id number] 2.16.840.1.007862.3.579.2.593 1996 Unknown [id number] 2.16.840.1.480502.3.579.2.593 1996 Unknown [id number] 2.16.840.1.132720.3.579.2.593 1996 Unknown [id number] 2.16.840.1.306550.3.579.2.593 1996 Unknown [id number] 2.16.840.1.543176.3.579.2.727 1996 Unknown [id number] 2.16.840.1.800802.3.579.2.727 1996 Unknown [id number] 2.16.840.1.814665.3.579.2.175 1959 Unknown [id number] Unknown [id number] 2.16.840.1.586053.3.579.2.531 Social History Date Type Detail Facility Start: 05-03-2020 End: 01-20-2021 Tobacco smoking status LAIS Never smoked tobacco [facility] Start: 01-20-2021 End: 11-16-2021 Tobacco use and exposure Smokeless tobacco non-user [facility] Start: 08-03-2021 Alcohol intake Ex-drinker (finding) [facility] Start: 1995 Sex Assigned At Not on file C [facility] Start: 11-05-2021 End: 08-07-2022 Exposure to SARS-CoV-2 (event) Not sure [facility] Tobacco smoking status NHIS Tobacco smoking consumption unknown [facility] Start: 1995 Sex Assigned At Male [facility] Start: 08-07-2022 Alcohol intake Lifetime non-d starr (finding) [facility] [employer] Work Phone: Tobacco smoking status Never [facility] Sex Assigned At Male [facility] Functional Status Date Assessment Result Facility 03-31-2023 Functional Status N/A [facility] 09-30-2022 Functional Status N/A [facility] Clinical Notes 01-20-2021 to 03-31-2023 Note Date [...] Follow these instructions at home: Medicines Take llme-dnc-wilozya and prescription medicines only as told by [...] and water are not available, use hand oiling machine operator. ?Gently wash the wound area with mild [...] provider. Document Revised: 07/06/2020 Document Reviewed: 07/06/2020 [employer] Patient Education 2022 [employer]. Follow Up Care 03/31/2023 16:45:16 With:EMELI CHI Address: [address] [place] [address] [phone] Business (1) When:04/03/2023 16:54:21 Comments:Call the office [...] or until sutures are removed. [facility] 03-31-2023 Evaluation + Plan note Extrac perfecto from: Title:ED Note Author:Ramón Carrizales DO Date: Wound dehiscence (T81.30XA: Disruption of wound, unspecified, initial encounter) [facility]03-05-2023 Hospital Discharge instructions Patient Education 09/30/2022 [...] having seen or heard something before (d eddi vu). Odd tastes or smells. Changes in [...] Follow these instructions at home: Medicines Take owfl-ypj-mftmrnr and prescription medicines only as told by [...] Treatment is effective at controlling seizures. Take uuww-riw-irbxrrk and prescription medicines only as told by [...] 07/15/2006 Document Revised: 03/09/2019 Document Reviewed: 03/09/2019 [employer] Patient Education 2020 [employer]ungle. Follow Up Care 09/30/2022 20:00:37 With:EMELI CHI Address: [address] [place] [phone] [phone] Business (1) When:Within 3 Day(s) [facility]03-05-2023 Evaluation + Plan noteExtracted from: Title:ED Note Author:Junior Raygoza DO Date :09/30/22 Seizure (R56.9: Unspecified convulsions) Orders: lorazepam, 2 mg = 2 tab(s), Tab, Oral, Once, Stop date 09/30/22 22:00:00 EST, Routine, Start date 09/30/22 22:00:00 EST, 09/30/22 21:09:00 EST [facility]01-14-2023 Hospital course Narrative* Benjamin Miles MD - 08/11/2022 2:28 PM EST Images from the original note were not included. [facility] Department of Neurology INPATIENT DISCHARGE SUMMARY Patient Identification: Corey Alonso III is a 27 y.o. male. : 1995 Acct: [id number] Admit Date: 08/07/2022 Discharge date and time: [...] seizure-free since then. Follows with neurologist in [place] currently taking Trileptal 600 mg twice daily, [...] Diet: regular diet Follow-up: Hans Granado MD [address] [place] [address] Dr Hutson A [facility] [id number] Schedule an appointment as soon as possible for a visit follow up with neurology in 4-6weeks for seizure disorder Follow up labs: None Follow up imaging: None Note that over 30 minutes was spent in preparing discharge papers, discussing discharge with patient, medication review, etc. Benjamin Miles MD, Neurology Resident PGY-2 Department of Neurology [place], [place] 08/11/2022, 4:52 PM Associated attestation - [...] 08/11/2022 4:57 PM [facility] Work Phone: 1(838) 108-598601-14-2023 History of Present illness Narrative* Benjamin Miles MD - 08/11/2022 2:16 PM EST [facility] Neurology IN-PATIENT SERVICE [facility] Progress Note Date: 08/11/2022 Patient name: Corey Alonso III Date of admission: 08/07/2022 2:07 PM Account: [id number] Date of : 1995 PCP: Emeli Chi Room: [facility]249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 States that stress and sleep deprivation trigger his seizures. He can be seizure-free for weeks and then have 1-2 seizures per day. Had 6 seizures that occurred overnight 07/03-07/04. Has been seizure-free since then. Follows with neurologist in [place] currently taking Trileptal 600 mg twice daily, [...] not provided in a hospital setting. Benjamin Milse MD Neurology Resident PGY-2 08/11/2022 2:16 PM [...] 3:11 PM * Kayden Collado APRN - [place] - 08/10/2022 10:43 AM EST Neurology Nurse [...] follows up with his own neurologist in [place] and has been taking Trileptal 600 mg twice daily and Lamictal 300 mg twice daily. LTME was recommended to capture and characterize her typical spells. Patient presented to [facility] on 08/07/2022 for inpatient LTME. [...] to ensure the accuracy of this automated safety council director, some errors in safety council director may have occurred. Associated attestation - Chavez [...] 2:54 PM * Kayden Collado APRN - [place] - 08/09/2022 11:51 AM EST Neurology Nurse [...] the event. He described occasional aura ofd eddi blum with confusion. He noted stress & sleep deprivation trigger his seizures. He can be seizure-free for weeks and then have 1 or 2 seizures per day. He had 6 seizures that occurred overnight 07/03-07/04/22. No seizures were witnessed by his . Has been seizure-free since then. He follows up with his own neurologist in [place] and has been taking Trileptal 600 mg twice daily and Lamictal 300 mg twice daily. LTME was recommended to capture and characterize her typical spells. Patient presented to [facility] on 08/07/2022 for inpatient LTME. [...] to ensure the accuracy of this automated safety council director, some errors in safety council director may have occurred. Associated attestation - Chavez Lee DO - 08/09/2022 5:17 PM EST Attending Physician [...] made to the note as needed. Chavez LeeDO 08/09/2022 5:17 PM * Kayden Collado APRN - MATERIAL CLERK - 2022 11:57 AM EST Neurology Nurse [...] Hefollows up with his own neurologist in [place] and has been taking Trileptal 600 mg twice daily and Lamictal 300 mg twice daily. LTME was recommended to capture and characterize her typical spells. Patient presented to [facility] on 08/07/2022 for inpatient LTME. [...] to ensure the accuracy of this automated safety council director, some errors in safety council director may have occurred. * Tisha Peters - 08/07/2022 5:32 PM EST ALTM started documented in this encounterB[facility] [employer] Work Phone: 1(275) 991-372209-15-2022 NoteSperm Rapid ProgressiveSeptember 2021 9:00amTNPTest not performedAshtabula County Medical Center [address] [facility] [address]OpfpfzmiaUniversity Hospitals Elyria Medical CenterComment on above:Test not [id number] NoteSperm Non-ProgressiveSeptember 2021 9:00amTNPTest not performedOhiohealth [facility] [address] [facility] [address]DqpgiogmrUniversity Hospitals Elyria Medical CenterComment on above:Test not [id number] History of Present illness Narrative* Maritza Romo MD - 02/02/2022 6:12 AM EDT Images from the original note were not included. EMERGENCY TRIAGE, TREAT AND TRANSPORT (ET3) DOCUMENTATION OF TELEHEALTH VISIT Date / Time: 02/02/2022599 Name: Corey Alonso : 1995 SSN: [id number] EMS Agency: [facility] [x] Verbal consent obtained [] Implied [...] by: Maritza Romo MD documented in this [id number] Miscellaneous Notes* Telephone Encounter - Won Huerta MD - 11/23/2021 5:27 PM EDT Called to discuss results Remains azoospermic - suspected obstructive process Discussed next steps - TESE with IVF He will consider this and let us know All questions answered RTC prn Won Huerta MD, PhD documented in this encounterCoshocton [facility] Center02-16-2022 NoteHNO ID: [id number] Author: Domi Carrera MD Service: ? Author Type: Physician Type: Progress Notes Filed: 09/13/2021 1:27 PM Note Text: Post Op S/p TURED 08/31/21 Voiding well Has not ejaculated since Occasional hematuria Plan for post op SA Disc unlikely that he has TONY based on findings If repeat SA neg, will need TESE+IVF Domi Carrera, [facility]02-03-2022 NoteHNO ID: [id number] Author: Tung Macias MD Service: Anesthesiology Author Type: Anesthesiologist Type: Anesthesia Procedure Notes Filed: 09/01/2021 6:32 AM Note Text: ANESTHESIOLOGY PROCEDURE NOTE Airway General Information Procedure Start Time/Medication Administration: 08/31/2021 1:10 PM Patient location during procedure: OR Timeout Performed Pre-procedure: timeout performed Consent Obtained: Yes Patient identity confirmed: arm band and patient Staffing Anesthesiologist: Tung Macias MD MAT MAN: Rubi Javier APRN.MAT MAN Performed by: KARLA Indications and Patient Condition [...] no Airway not difficult SIGNATURE: Rubi Javier APRN.MAT MAN PATIENT NAME: Corey Alonso III DATE: August 31, 2021 TIME: 1:16 PM CSN: [id number] NoteHNO ID: [id number] Author: Domi Carrera MD Service: ? Author [...] which included preparing to see the patient, hykc-za-fspa patient care and completing clinical documentation. Domi Carrera, [facility]06-25-2021 NoteHNO ID: [id number] Author: Domi Carrera MD Service: ? Author Type: Physician Type: Progress Notes Filed: 01/20/2021 2:15 PM Note Text: Referred by: Emeli Chi, MATERIAL CLERK [address] [facility] [address] 01/20/2021 CC: failure to conceive. HPI: 25 [...] is within normal limits given the large ilpuf-vd-kppj evaluation. ?The left seminal vesicle is not identified. ?The right seminal vesicle is dilated and filled with proteinaceous/hemorrhagic contents. ?Most likely the adjacent tubular structure represents the vas deferens but large clqqe-tc-szes evaluation is suboptimal to clarify the anatomy. Localizer images positively document the right kidney, however the left kidney is not identified in the nnfvp-ae-spuz. IMPRESSION: * ?Dilated, hemorrhagic/proteinaceous filled, right seminal vesicle and possible the associated vas deferens. ? * ?Inconspicuous left seminal vesicle and left kidney. Previous fertility treatments: Medications: none Fertility history: Prior children: none Prior Semen analyses: none Female factor eval: (she is present) Age 24 yrs G0P) Irregular menses. Prior detective narcotics and vice eval none Prior fertility treatments: none Hormonal [...] No GnRH analogues No Opiates: No Anti-psychotics [place] No Chlorpromazine No Androgens No Alpha-blockers No [...] nontender Left palp, sm (more content not included)...[facility]Evaluation note* Diagnosis Seizure (HCC)- Primary Other convulsions documented in this encounter [facility]Evaluation noteNo assessment information availableAshtabula County Medical Center Work Phone: Evaluation note* Diagnosis Partial symptomatic epilepsy with complex partial seizures, intractable, without status epilepticus (HCC)- Primary Seizure-like activity (HCC) Other convulsions documented in this encounter [facility] Work Phone: Hospital course Narrative No data available for this section [facility] HospitalProgress note No data available for this section [facility] Summary Purpose Family History No Family History Records FoundNo Family History Records FoundNo Family History Records FoundNo Family History Records FoundNo Family History Records FoundNo Family History Records FoundNo Family History Records FoundNo Family History Records FoundNo Family History Records Found Advance Directives No Advanced Directives Records FoundDocuments on File Type Date Recorded 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 Advance Directive(s) 07/17/2021 12:20 PM [...] and content) DATE CREATED AUTHOR 01/22/2018 [facility] DATE CREATED AUTHOR AUTHOR'S ORGANIZ ATION 09/01/2021 [facility] DATE CREATED AUTHOR AUTHOR'S ORGANIZ ATION 12/05/2021 [facility] DATE CREATED AUTHOR AUTHOR'S ORGANIZ ATION 01/05/2022 [facility] DATE CREATED AUTHOR AUTHOR'S ORGANIZ ATION 02/15/2022 [facility] DATE CREATED AUTHOR AUTHOR'S ORGANIZ ATION 04/27/2022 [facility] DATE CREATED AUTHOR AUTHOR'S ORGANIZ ATION 09/26/2022 [facility] DATE CREATED AUTHOR AUTHOR'S ORGANIZ ATION 03/31/2023 [facility] DATE CREATED AUTHOR AUTHOR'S ORGANIZ ATION 05/31/2023 [facility] Source Comments (unrecognize d section and content) In the event this informatio n is protected by the Federal Confidentiality of Alcohol and Drug Abuse Patient Records regulations: The Federal rules restrict any use of the information to criminally investigate or prosecute any alcohol or drug abuse patient.[facility] Reason for Visit (unrecogniz ed section and content) Reason Comments Results Reason Comments Seizures Specialty Diagnoses / Procedures Referred By Contac t Referred To Contact Diagnoses Partial symptomatic epilepsy with complex partial seizures, intractable, without status epilepticus (HCC) Seizure-like activity (HCC) partial symptomatic epilepsy w/ complex partial seizures intractable w/o status epilepticus needing LTME Chavez Lee, DO [address] [place] [address] [facility] [address] [place] [address] Referral ID Status Reason Start Date Expiration Date Visits Re quested Visits Authorized [id number] 1 1 Care Teams (unrecognized sec tion and content) Miner Relationship Specialty Start Date End Date Emeli Chi, MATERIAL CLERK [address] [place] [address] PCP - General Internal Medicine 07/17/21 Team Status: Inactive Member Role Status Dates Emeli Chi NP-C Primary Care Provider Active Derek Burks Attending Provider Active Team Status: Active Member Role Status Dates Emeli Chi NP-C Primary Care Provider Active Miner Relationship Specialty Start Date End Date Emeli Chi [address] [place] [address] PCP - General 11/16/21 Goals (unrecognized section [...] 1830 (Given - Provider: Brittaney Scott RN) 181 (Not Given - Provider: Wanda Moulton RN [...] RN)2109 (Given - Provider: Eli Michel RN) 0926 (Given - Provider: Wanda Moulton RN)2109 (Not Given - Provider: Qian Christensen RN - Reason: Patient/family refused) 1048 (Given - Provider: Brittaney Scott RN)2100 (Due) PRN Medication Order 08/09/2022 08/10/2022 08/11/2022 [...] BE BASED ON THE PRIMARY CLINICAL RECORDS. [employer] [facility]. provides no warranty or guarantee of the accuracy or completeness of information in this document.
[2023-10-27 23:28] VITALS: BP 140/91; PULSE 85; TEMP 36.7; O2SAT 96; BMI 26.6
--- NOTE | 2023-10-27 23:39 | CT_ITS ---
The [address] [address] Patient Name: COREY LOPEZ MRN: [id number] date: 1995 Sex: M Assigned Patient Location: ER Current Patient Location: ER Accession/Order Number: [id number] Exam Date: 10/27/2023 23:56 Report Date: 10/28/2023 00:12 At the request of: JOSE CRUZ BRAGA Procedure: CT head/brain wo con INDICATION: 28 years old; Male. Breakthrough seizure. 5 seizures today . TECHNIQUE: CT Head (ax/cor/sag reformats). Ionizing radiation dose reduced via iterative reconstruction/FBP blend and body size kV/mA adjustment. Comparison: Head CT dated 03/17/2022. Head CT dated 12/30/2021. FINDINGS: POSTOPERATIVE CHANGES: None. BRAIN PARENCHYMA: No focal lesions. No mass effect. No midline shift or herniation. No intraparenchymal or extra-axial hemorrhage. Normal brooks/white differentiation. VENTRICLES/EXTRA-AXIAL SPACES: Normal for patient's age. SINUSES/MASTOIDS: Visualized sinuses are clear although the maxillary sinuses are not entirely visible in this routine CT of the head. The left frontal sinuses are hypoplastic. Mastoids and middle ears are clear. MSK: No displaced or depressed calvarial fracture. OTHER: No hyperdense intraluminal thrombus. CT/CT head/brain wo con IMPRESSION: 1. No acute intracranial abnormality. No hemorrhage or mass effect. Recommend follow-up with seizure protocol MRI. Electronically authenticated by: ERNESTO PERRY Date: 10/28/2023 00:12
--- NOTE | 2023-10-27 23:39 | ED_ITS ---
HPI - Seizure General Chief Complaint: Seizure Stated Complaint: POSS SEIZURE ACTIVITY Time Seen by Provider: 10/27/23 23:28 Source: patient Mode of arrival: walk-in Limitations: no limitations History of Present Illness HPI Narrative: 28-year-old male presents to the emergency department after having several seizures today. He has a history of seizure disorder and has been taking his medication. He has not missed any doses. He does not complain of a headache or fever and he has had no vomiting. He sees a neurologist regularly. Seizure History: Yes Related Data Home Medications ?Medication ?Instructions ?Recorded ?Confirmed lamotrigine 100 mg tablet 100 mg PO Q12H 02/05/23 08/15/23 lamotrigine 200 mg tablet 200 mg PO Q12H 02/05/23 08/15/23 oxcarbazepine 600 mg tablet 600 mg PO BID 02/05/23 08/15/23 vilazodone 20 mg tablet mg 02/05/23 Allergies Allergy/AdvReac Type Severity Reaction Status Date / Time No Known Drug Allergies Allergy Verified 10/27/23 23:28 Review of Systems ROS Narrative A ten point review of systems is negative except as noted above. [facility] Medical History (Updated 10/28/23 @ 01:02 by Grant Mcqueen MD) Epilepsy ?G40.909 - Epilepsy, unspecified, not intractable, without status epilepticus (ICD-10) Social History Smoking status: Unknown if ever smoked Exam Narrative Exam Narrative: Nurses note and vital signs reviewed and patient is not hypoxic. General: The patient appears well and in no apparent distress. Patient is resting comfortably on cart. Skin: Warm, dry, no pallor noted. There is no rash noted. Head: Normocephalic, atraumatic Eye: Normal conjunctiva, no drainage, EOMI. PERRL Ears, Nose, Mouth, and Throat: oral mucosa is moist. Nares patent. Cardiovascular: Regular Rate and Rhythm Respiratory: Patient is in no distress, no accessory muscle use, lungs are clear to auscultation, no wheezing, rales or rhonchi Back: non-tender GI: Soft and nontender Musculoskeletal: The patient has no evidence of calf tenderness, no pitting edema, symmetrical pulses noted bilaterally Neurological: A&O x4, normal speech;, upper and lower extremity strength intact Psychiatric: Cooperative Constitutional Vital Signs, click to edit/add: Last Vital Signs Temp 98.0 F 10/27/23 23:28 Pulse 85 10/27/23 23:28 Resp 20 10/27/23 23:28 BP 140/91 10/27/23 23:28 Pulse Ox 98 10/27/23 23:57 O2 Del Method Room Air 10/27/23 23:57 Course Vital Signs Vital signs: Vital Signs Temperature 98.0 F 10/27/23 23:28 Pulse Rate 85 10/27/23 23:28 Respiratory Rate 20 10/27/23 23:28 Blood Pressure 140/91 10/27/23 23:28 Pulse Oximetry 96 10/27/23 23:28 Oxygen Delivery Method Room Air 10/27/23 23:28 Temperature 98.0 F 10/27/23 23:28 Pulse Rate 85 10/27/23 23:28 Respiratory Rate 20 10/27/23 23:28 Blood Pressure 140/91 10/27/23 23:28 Pulse Oximetry 98 10/27/23 23:57 Oxygen Delivery Method Room Air 10/27/23 23:57 MDM - Seizure MDM Narrative Medical decision making narrative: His workup including CT brain is negative here. He will be discharged home and will call his neurologist for follow-up in the morning. Findings are discussed with the patient and his family. Differential Diagnosis Differential diagnosis: Likely focal seizure, generalized seizure, epileptic seizure and other (Breakthrough seizure) Lab Data Attestation: I reviewed the patient's lab results. Labs: Lab Results 10/27/23 10/27/23 Range/Units 23:41 23:50 WBC 6.7 (4.0-11.0) 10^3/uL RBC 5.17 (4.70-6.10) 10^6/uL Hgb 14.9 (14.0-18.0) g/dL Hct 42.8 (42.0-54.0) % MCV 82.8 (80.0-94.0) fL MCH 28.8 (25.9-34.0) pg MCHC 34.8 (29.9-35.2) g/dL RDW 12.2 (11.0-15.0) % Plt Count 209 (150-450) 10^3/uL MPV 9.7 (9.5-13.5) fL Neut % (Auto) 63.3 (43.0-75.0) % Lymph % (Auto) 24.4 (20.5-60.0) % Ritchie % (Auto) 10.8 (1.7-12.0) % Eos % (Auto) 0.5 L (0.9-7.0) % Baso % (Auto) 0.5 (0.2-2.0) % Neut # (Auto) 4.2 (1.4-6.5) 10^3/uL Lymph # (Auto) 1.6 (1.2-3.8) 10^3/uL Ritchie # (Auto) 0.7 (0.3-0.8) 10^3/uL Eos # (Auto) 0.0 (0.0-0.7) 10^3/uL Baso # (Auto) 0.0 (0.0-0.1) 10^3/uL Abs Immat Gran (auto) 0.03 (0.00-0.03) 10^3/uL Imm/Tot Granulo (auto) 0.5 (0.0-0.5) % Sodium 138 (136-145) mmol/L Potassium 3.7 (3.5-5.1) mmol/L Chloride 101 (98-107) mmol/L Carbon Dioxide 27.4 (21.0-32.0) mmol/L Anion Gap 13.3 BUN 14.0 (7.0-18.0) mg/dL Creatinine 1.11 (0.70-1.30) mg/dL Est GFR ( Amer) >60 (>=60) Est GFR (Non-Af Amer) >60 (>=60) BUN/Creatinine Ratio 12.6 Glucose 105 (74-106) mg/dL Calcium 9.1 (8.5-10.1) mg/dL Urine Color Yellow (YELLOW) Urine Clarity Clear (CLEAR) Urine pH 6.0 (5.0-9.0) Ur Specific [place] >=1.030 A (1.005-1.025) Urine Protein Negative (NEG/TRACE) mg/dL Urine Glucose (UA) Negative (NEGATIVE) mg/dL Urine Ketones Negative (NEGATIVE) mg/dL Urine Occult Blood Trace-i (NEGATIVE) Urine Nitrite Negative (NEGATIVE) Urine Bilirubin Negative (NEGATIVE) Urine Urobilinogen 0.2 (0.2-1.0) EU/dL Ur Leukocyte Esterase Negative (NEGATIVE) Urine RBC None seen (0-2) #/HPF Urine WBC None seen (NONE SEEN) #/HPF Ur Squamous Epith Cells None seen (NONE/RARE) #/LPF Urine Crystals None seen (None Seen) #/HPF Urine Bacteria None seen (NONE SEEN) #/HPF Urine Casts None seen (NONE SEEN) #/LPF Urine Mucus None seen (NONE SEEN) Ur Culture Indicated? No Urine Opiates Screen Negative (NEGATIVE) Ur Buprenorphine Scrn Negative (NEGATIVE) Ur Oxycodone Screen Negative (NEGATIVE) Urine Methadone Screen Negative (NEGATIVE) Ur Barbiturates Screen Negative (NEGATIVE) U Tricyclic Antidepress Negative (NEGATIVE) Ur Phencyclidine Scrn Negative (NEGATIVE) Ur Amphetamines Screen Negative (NEGATIVE) U Methamphetamines Scrn Negative (NEGATIVE) U Benzodiazepines Scrn Negative (NEGATIVE) Urine Cocaine Screen Negative (NEGATIVE) U Cannabinoids Screen Negative (NEGATIVE) Imaging Data CT scan - head: Radiologist's impression: ITS Impressions Head CT 10/27/23 23:39 IMPRESSION: 1. No acute intracranial abnormality. No hemorrhage or mass effect. Recommend follow-up with seizure protocol MRI. Electronically authenticated by: ERNESTO PERRY Date: 10/28/2023 00:12 Discharge Plan Discharge Stand Alone Forms: Portal Instructions Chief Complaint: Seizure Clinical Impression: Breakthrough seizure Patient Disposition: Home, Self-Care Time of Disposition Decision: 01:01 Condition: Good Mode of Transportation: Private Vehicle Prescriptions / Home Meds: No Action lamotrigine 200 mg tablet 200 mg PO Q12H oxcarbazepine 600 mg tablet 600 mg PO BID lamotrigine 100 mg tablet 100 mg PO Q12H vilazodone 20 mg tablet Print Language: Filipino Instructions: Recurrent Seizures in Adults (ED) Additional Instructions: Call your neurologist in the morning Referrals: MANNY CHI [Primary Care Provider] - 1 week
--- NOTE | 2023-10-27 23:39 | ECG_ITS ---
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
[2023-10-27 23:45] VITALS: PULSE 81; O2SAT 95
[2023-10-27 23:50] VITALS: PULSE 84
[2023-10-27 23:57] VITALS: O2SAT 98
[2023-10-28] VITALS (8 sets, daily range): BP systolic 123; BP diastolic 85; PULSE 65–83; O2SAT 94–96
[2023-10-28 00:14] LABS: Basophils Percent Auto 0.5 % (0.2-2.0); Eosinophils Percent Auto 0.5 % (0.9-7.0); Hematocrit 42.8 % (42.0-54.0); Hemoglobin 14.9 g/dL (14.0-18.0); Immature Granulocytes Abs Auto 0.03 10^3/uL (0.00-0.03); Immature Granulocytes Pct Auto 0.5 % (0.0-0.5); Lymphocytes Absolute Auto 1.6 10^3/uL (1.2-3.8); Lymphocytes Percent Auto 24.4 % (20.5-60.0); Mean Corpuscular HGB Conc 34.8 g/dL (29.9-35.2); Mean Corpuscular Hemoglobin 28.8 pg (25.9-34.0); Mean Corpuscular Volume 82.8 fL (80.0-94.0); Mean Platelet Volume 9.7 fL (9.5-13.5); Monocytes Absolute Auto 0.7 10^3/uL (0.3-0.8); Monocytes Percent Auto 10.8 % (1.7-12.0); Neutrophils Absolute Auto 4.2 10^3/uL (1.4-6.5); Neutrophils Percent Auto 63.3 % (43.0-75.0); Platelet Count 209 10^3/uL (150-450); Red Blood Count 5.17 10^6/uL (4.70-6.10); Red Cell Distribution Width 12.2 % (11.0-15.0); White Blood Count 6.7 10^3/uL (4.0-11.0)
[2023-10-28 00:19] LABS: Bilirubin Urine NEGATIVE (NEGATIVE); Blood Urine TRACE-I (NEGATIVE); Clarity Urine CLEAR (CLEAR); Color Urine YELLOW (YELLOW); Glucose Urine UA NEGATIVE (NEGATIVE); Ketones Urine NEGATIVE (NEGATIVE); Leukocyte Esterase Urine NEGATIVE (NEGATIVE); Nitrite Urine NEGATIVE (NEGATIVE); Protein Urine NEGATIVE (NEG/TRACE); Specific Gravity Urine >=1.030 (1.005-1.025); Urobilinogen Urine 0.2 EU/dL (0.2-1.0)
[2023-10-28 00:22] LABS: Amphetamine Screen Urine NEGATIVE (NEGATIVE); Barbiturates Screen Urine NEGATIVE (NEGATIVE); Benzodiazepines Screen Urine NEGATIVE (NEGATIVE); Buprenorphine Screen Urine NEGATIVE (NEGATIVE); Cannabinoid Screen Urine NEGATIVE (NEGATIVE); Cocaine Screen Urine NEGATIVE (NEGATIVE); Methadone Screen Urine NEGATIVE (NEGATIVE); Methamphetamines Screen Urine NEGATIVE (NEGATIVE); Opiate Screen Urine NEGATIVE (NEGATIVE); Oxycodone Screen Urine NEGATIVE (NEGATIVE); Phencyclidine Screen Urine NEGATIVE (NEGATIVE); Tricyclic Antidepressant Urine NEGATIVE (NEGATIVE)
[2023-10-28 00:23] LABS: Anion Gap 13.3; BUN Creatinine Ratio 12.6; Calcium 9.1 mg/dL (8.5-10.1); Carbon Dioxide 27.4 mmol/L (21.0-32.0); Chloride 101 mmol/L (98-107); Estimated GFR (African America >60 (>=60); Estimated GFR (Non-African Ame >60 (>=60); Glucose 105 mg/dL (74-106); Potassium 3.7 mmol/L (3.5-5.1); Sodium 138 mmol/L (136-145)
[2023-10-28 00:28] LABS: Bacteria Urine NONE SEEN #/HPF (NONE SEEN); Cast Seen? NONE SEEN #/LPF (NONE SEEN); Crystals Seen? None Seen #/HPF (None Seen); Mucus Urine NONE SEEN (NONE SEEN); RBC Urine NONE SEEN #/HPF (0-2); Squamous Epithelial Cell Urine NONE SEEN #/LPF (NONE/RARE); Urine Culture Indicated NO; WBC Urine NONE SEEN #/HPF (NONE SEEN)
== END 2023-10-28 01:25 | disposition home or self-care (01) ==
PROVIDERS: Emergency Provider Emergency Medicine; PCP Nurse Practitioner Family
DX: G40.909 Epilepsy, unspecified, not intractable, without status epilepticus (principal); Z79.899 Other long term (current) drug therapy
CPT/HCPCS: 36415; 70450; 80048; 80307; 81001; 85025; 93005; 99285

== ENCOUNTER 2024-03-04 17:10 | Emergency (ER) | payer OTHER, SELFPAY ==
[2024-03-04 17:14] VITALS: BP 142/96; PULSE 102; TEMP 37.2; O2SAT 98; BMI 24.2
--- NOTE | 2024-03-04 17:23 | ECG_ITS ---
[facility] Test Date: 2024-03-04 Pat Name: COREY LOPEZ Department: Room: - Gender: Male Motor Vehicle Compliance Analyst: : 1995 Requested By: MANNY CHI Order Number: [id number] Reading MD: LELE MONTANA Measurements Intervals [place] Rate: 100 P: 48 MN: 154 QRS: 19 QRSD: 90 T: 58 QT: 330 QTc: 387 Interpretive Statements 1120 Sinus tachycardia 9140 abnormal rhythm ECG Compared to ECG 10/27/2023 23:45:45 Sinus rhythm no longer present Electronically Signed On 03-04-2024 22:16:32 EDT by LELE MONTANA
[2024-03-04 17:30] VITALS: PULSE 100
--- NOTE | 2024-03-04 17:38 | ED.GENADUL1 ---
HPI HPI - General Adult General Chief complaint: Seizure Stated complaint: SEIZURE Time Seen by Provider: 03/04/24 17:21 Source: patient Mode of arrival: ambulance Limitations: no limitations History of Present Illness HPI narrative: Patient presented to the emergency department for evaluation status post seizure. Patient was at the [facility]. Had a witnessed generalized tonic-clonic seizure by friends. They called EMS. Postictal plaints. States he takes Lamictal and Trileptal, states he has not missed any doses. States that he was in this emergency department for breakthrough seizure August and September. Saw his neurologist approximately a month ago, has been having no changes in seizure medications. States his last seizure was couple days ago. It is not clear how frequently he has seizures but is not abnormal for him to have seizures. Patient states that he has no current complaints. Related Data Home Medications ?Medication ?Instructions ?Recorded ?Confirmed lamotrigine 200 mg tablet 200 mg PO Q12H 02/05/23 03/04/24 oxcarbazepine 600 mg tablet 600 mg PO BID 02/05/23 03/04/24 Allergies Allergy/AdvReac Type Severity Reaction Status Date / Time No Known Drug Allergies Allergy Verified 03/04/24 17:13 Opioid HPI Opioid Management Most Recent Opioid Data: Last Pain Scale 7 02/05/23 21:43 Ur Phencyclidine Scrn Negative (NEGATIVE) 10/27/23 23:41 Review of Systems ROS Narrative Negative unless otherwise stated in the HPI [facility] Medical History (Updated 03/04/24 @ 18:37 by Dylan Hauser MD) Epilepsy ?G40.909 - Epilepsy, unspecified, not intractable, without status epilepticus (ICD-10) Social History Smoking status: Unknown if ever smoked Exam Narrative Exam Narrative: General: NAD, AAOx3, no distress HEENT: NCAT Neck: Supple, no LAD, negative Kernig/Brudzinski, non meningeal, no bruit Respiratory: respiratory effort normal, speaks in full sentences, no tripod position, no accessory muscle use. Lungs clear to auscultation without rhonchi, wheezes, rales Cardiac: Regular rate and rhythm, no edema, regular s1/s2, no m/g/r Abdomen: Soft, ND/NT. No evidence of fluid wave. No pulsatile masses on exam, rebound tenderness, Holguin sign or pain over Mcburney's point. Neuro: Speech is clear and appropriate. Normal level of consciousness. Gait and coordination are normal. 5/5 strength in all extremities. Constitutional Vital Signs, click to edit/add: Last Vital Signs Temp 98.9 F 03/04/24 17:14 Pulse 102 H 03/04/24 17:14 Resp 18 03/04/24 17:14 BP 142/96 H 03/04/24 17:14 Pulse Ox 98 03/04/24 17:14 O2 Del Method Room Air 03/04/24 17:14 Course Vital Signs Vital signs: Vital Signs Temperature 98.9 F 03/04/24 17:14 Pulse Rate 102 H 03/04/24 17:14 Respiratory Rate 18 03/04/24 17:14 Blood Pressure 142/96 H 03/04/24 17:14 Pulse Oximetry 98 03/04/24 17:14 Oxygen Delivery Method Room Air 03/04/24 17:14 Temperature 98.9 F 03/04/24 17:14 Pulse Rate 102 H 03/04/24 17:14 Respiratory Rate 18 03/04/24 17:14 Blood Pressure 142/96 H 03/04/24 17:14 Pulse Oximetry 98 03/04/24 17:14 Oxygen Delivery Method Room Air 03/04/24 17:14 Medical Decision Making [facility] Narrative Medical decision making narrative: [facility] Patient with history as above presented with breakthrough seizure. History obtained from patient, EMS from his friends. Patient was nontoxic, stable. Ambulatory. Exam as above. EKG reviewed. Labs reviewed. Reviewed external records. Differential diagnosis considered. Overall presentation is consistent with breakthrough seizure Advanced guidance has been given. Vss, pex is benign at this time. Pt to fu with pcp 1-2 days for reeval, rter should sx worsen, persist or become worrysome in any way. All incidental laboratory studies, EKG, radiologic findings have been noted and discussed with patient. Patient was reevaluated with a benign exam at this time. Pt expressed understanding and agreement with plan of care at this time. Will fu as planned. Pt stable for discharge. Lab Data Lab results reviewed: Yes I reviewed the patient's lab results Labs: Lab Results 03/04/24 Range/Units 17:21 Sodium 137 (136-145) mmol/L Potassium 3.6 (3.5-5.1) mmol/L Chloride 100 (98-107) mmol/L Carbon Dioxide 33.2 H (21.0-32.0) mmol/L Anion Gap 7.4 BUN 13.0 (7.0-18.0) mg/dL Creatinine 1.08 (0.70-1.30) mg/dL Est GFR ( Amer) >60 (>=60) Est GFR (Non-Af Amer) >60 (>=60) BUN/Creatinine Ratio 12.0 Glucose 104 (74-106) mg/dL Calcium 9.1 (8.5-10.1) mg/dL Magnesium 1.7 L (1.8-2.4) mg/dL Discharge Plan Discharge Stand Alone Forms: Portal Instructions Chief Complaint: Seizure Clinical Impression: Breakthrough seizure Patient Disposition: Home, Self-Care Time of Disposition Decision: 18:37 Condition: Good Prescriptions / Home Meds: No Action lamotrigine 200 mg tablet 200 mg PO Q12H oxcarbazepine 600 mg tablet 600 mg PO BID Print Language: Ethiopian Instructions: Epilepsy (ED) Additional Instructions: Follow follow-up with your PCP in the next 1 to 2 days. Return to the emergency department should symptoms worsen or become worrisome in any way. Call your neurologist and make a follow-up appointment in the next 1 to 2 days as well. Referrals: MANNY CHI [Primary Care Provider] - 1 week
[2024-03-04 17:41] LABS: Anion Gap 7.4; Calcium 9.1 mg/dL (8.5-10.1); Carbon Dioxide 33.2 mmol/L (21.0-32.0); Chloride 100 mmol/L (98-107); Estimated GFR (African America >60 (>=60); Estimated GFR (Non-African Ame >60 (>=60); Glucose 104 mg/dL (74-106); Magnesium 1.7 mg/dL (1.8-2.4); Potassium 3.6 mmol/L (3.5-5.1); Sodium 137 mmol/L (136-145)
--- OUTSIDE RECORDS SUMMARY | 2024-03-04 18:16 | XMS_ITS | CCD ---
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 Emergency Department were for an urgent problem and are not intended as complete care. It is important that you follow up with a doctor, nurse practitioner, or physician?s dental hygiene administrative assistant for ongoing care. If your symptoms [...] With: Address: When: EM[facility]I [address] [place] [address] [phone] Business (1) In 3 days 04/03/2023 Comments: [...] opioids can be used to help relieve fkdjxvxh-tw-tsegqo pain and are often prescribed following a [...] ? Stor (more content not included)... Normal [facility] EMS Documentationon 10-10-19 EMS Documentation Please click on link to see report pdfCD:[id number] xTjKTRoHyg4DZInZzGZP nSgtNWYcpO40mpNNgbRT aLGY8KjXdUPHwZQQ3VeZ wIFIgMiAw UFGnASN8PNEzHDFyMLW1 SAZoBTWnO9Plq3VXk0xa IB6vEUIrRKG6ULEnNEL0 TPPoYI6nR8PvhVTo MTAwNCAwIFIvSUQgMTAw QZSaOWYhSBGjxZBCg9vb KA2cCZJdLFS4NMNdNQU3 SAChDQ0rFAuhCQ0x H1HkojTmdPC3DfNrIWCS I9Inz110eoFjffc8A1Qc sL8zG1RuB1E7DR9CIsQy GTv5CXPkFt8+L0Zv cqV5RP5FBOTjSMbuCJWu Bp7PNUEeEFa5ADIyPl6M EIEhWCclJLMzFk6YHHLt SHSlAFWKL4ZEMVTg NSAwIFI+Zz4Jlj6jD1U9 Nz8IKWCuKME6cU3aJKi3 J4W5QTZlWFRzLBQoQLKD B7uPSjciZ6DqMMB9 NiAwIFI+Jx5Eo9SukWEl ZZ1TwUK6B0EOWEAubtXa HAAcB4K0xABvKYRuNU4X UWYbO2G+PgplbmRv TdpOWdKtAB5vxaq3QY5F FU7rcJpvZzN7XFR+PnN0 oqNpgWddL3VjHHWpQENv FNHlnvfvPEV1ZMWt IDghLkg8KY93MUSscsLX EktuAJWqW62EEYXxDuz8 YCJ6MgTbDM42DOCdCPjz XkFuPCM3PH1nMFRa Adh1NITcBxs1KEJyJhMN XJu7IzO3ORT7PI8rZMFw Qlq8AMRwQqa4QYMoVuDN RQXjYco5AzW1WQX1 NzItSF98LLUiDTmoWlFb XVP0LJW9XjWqDMZeLgFu pfXPItptFMT9AJJkOuZo PO92CQViCKZdtiHN Dzo2HMMzChWlFmf0JvM3 OLYlOxRuEWZ1XPWzOsWM RX14IIljWDHxworfHQ15 XGO7XUOpNAUuBAwp MjUgLTEyIHJlCmYKMCAg c1AsOmYbZpb9GQG7Qf5y NSAyODcuMjUgLTAuNzUg cmUKZgowLjkxOCAg t3YiXrM5GUW2LXOiITBk ODcuMjUgLTEyIHJlCmYK HCIbs9AgQcQ2GQI0VUVp ChXzGzu0RfU6DB0q Ctj8YBNxRqMMZNHwVmQx IhX5ZEW3EfEyHN80QPWe FYcaJhRzCWG1KS04ZPZ2 UqXxZI62YMApPBue EvEiQDK9DK2oUIYhRyt0 AB85TK51SXHkJwTRAJz7 YfJ2XUO1ZF9qVINfHwj7 WS11UE67CKIcTtAK UQ06SKdlVJCcompoFP10 GKY5ZZleOBZ7VkMfANAl VXTmawZPHrnaTVNkQ06S RYVbZeQeNuQ4MyW1 VVD2SH18GQ2cGoz1GYJh LtPCEJU1SeNpIaQ9AMEg Qn6rDXSdCX88LYIoSSzx VnS3Rx67OMI7VJ6c NSAxMTYuMjUgLTAuNzUg kfNOTkx9MehzMEG4MpUb FL78MAOcEZUaPWGpFNdh PuQ4TnE3RrArDP05 NSAtNTUuNSByZQpmCjAu FIU0SLAuJ95DHGI9EvF3 OQNeHB9zQEOlKNBrDyYv LTEyIHJlCmYKMCAg x4BtTmH3DM5vYSQ6RaZf PWB5Xjo8EJ1fTpu0EAGb MmUTBHJgJTtePoy4HEC3 VhUaJX83UGJuYBkn HhLmZMPiOmS8NfRxBHLf NqLfppRLVtslXJN8BaRb SsTbMU99XOYjKhIlEJPs NQgoLkE8XJ1wDOD8 ImKyTzXcDS54ZGTtMiSd KVBtQCswDvWaWBC3JQEx P11WPFAwPoAbWWveOBI9 ZA93FQ5eMhSgHDuy TbZsOQEqoockTD65REW0 GHtnLcJlFYt8NaJpLXVd TtVvcdFIYdfcOBP5Kyxe QjUoWVl4TK1jKth2 IHJlCmYKMTAgNDUzIDU3 RiYqUY79DCTqTArwPnZb ENXtDl5yXWVbIpl3EH09 YFAxBXcaZcK5EP1k DLY4GdhkKbEaJM13UJLb NzUgcmUKZgowLjkxOCAg o6MaEqXcPxu7XKBmGd81 GJF9VN81JU6qIzBg KIdqOuMfEHHoqfzlEF47 RZX2BRHzOoEhDPf3VtPc LTAuNzUgcmUKZgoxMCA0 PaAeHTO7AoWyYVXl NzUgcmUKZgoxMCAzODcu XnQiVVh6DX5lHyd8DZTf ZxZOYRGmXHNmBzBfYU60 NSAtNDYuNSByZQpm LkQ6FP6gICM0XaHlMXAv Pow0FI85Yx51FNNcUlJI XO06UOqeMIVrkfbjRK78 XWM2CyEkRhKkRHw1 LjUgLTEyIHJlCmYKMCAg z5CkNwZeWxx0NPOxAJ61 SYT8CU47CG0mLce1LIQe SoZVNS49CGxcJEDk bgoxNiAzNzcuMjUgNTYz UxS9ZD2lQI73YPAzLxTR YXEkx9EaVrJ4TKX1Pc05 STBqTz49RJFySjCr NzUgcmUKZgowLjkxOCAg f8ObQxS1GLJ8Ae47MJKw Gm38BDTlJcFcZxKkkmML BvhgQAJjL00XYOIw PkPxWpE5Hzx2ZDA9IaQq LTEwLjUgcmUKZgowLjkx VVWtt6TlAjGeMtx1GTO7 Xp96JYP9ZP13RI7x OP62SWZsAfYBRQLsk8Zp DzAjWY6zMNKkJdXkPyKc MjAuMjUgLTEwLjUgcmUK MjdkCxfwQLOsl2Rr MbBaKP9aTJGxYuTvTbDf MjAuMjUgLTEwLjUgcmUK TxrvCDYtE21BACEqFyVu KgI6Ulq9EDH5JuHy LTEwLjUgcmUKZgowLjkx FAFfx4PzUeVvJP38XQU0 Xg23RHA2TW87CO9zUL84 AGWgIgEDFYGbl1Gs WdY7GEEiVeBtUtQnOzwj NSAtMTAuNSByZQpmCjAu RLU0UUDgT86CXXjcOVA0 Is06VHMkLF63QK1z AP76XWSiBkMDLZDge9Wp NzFhWA80AZA0Ze45SOF6 MiAtMTAuNSByZQpmCjAu NKM6WCUnQ23TNoL3 UpGzOmD2Faz7LWAsAD1h OF70FGNtXiNOHOSeu2Hv BcT3CC58EDZ8Oc90PSNg MZ53PN7fUW19RFFl UtDENK23OZarJECcazfk NTEuNSAzNjYuNzUgMjUu NSAtMTAuNSByZQpmCjEg IHNjbgoyNzcgMzY2 Tky8SGSxJr7mGLTlRQUu LAQpZNwdMkGdRRJ6MNKz D67POxi9MTL4Kc24DVPz MTYuMjUgLTEwLjUg pfQPGrivGIQwD31TOzui NgD7EIO1Uh71PBLgAO47 GE5fYF27BHXiNrODMI53 MTggIHNjbgozOTMu JoJoMxZ8Mfb2GSM7IoDc LTEwLjUgcmUKZgoxICBz D81BEIRcUuq3OUS8Xx65 SYL6SsFdTFXcEQEv ENfvNbHaBBF0JBXdD29Q WVMtZas1YXF6Qd83SMT4 MyAtMTAuNSByZQpmCjEg KHJytmb6TQMbBtEl QqP1Adl8DIY1AcOaRMFs LjUgcmUKZgowLjkxOCAg t0RgKjT5LE29BXXaCyDn NzUgMjguNSAtMTAu NSByZQpmCjEgIHNjbgo1 QLZgLsByUrM2Qxp5ECQl LjUgLTEwLjUgcmUKZgow GzwbBHXuk9RyGrTb Su0gPWQhUzEuHtCqPyGi NSAtMTAuNSByZQpmCjEg XCTrlix7GRGvCyPjUeA6 Swn4QNJ8RhFtSJVj LjUgcmUKZgowLjkxOCAg z1GmVvR4ER28GCVpRiRw NzUgMjUuNSAtMTAuNSBy ZQpmCjEgIHNjbgo1 CfXeTlUyWmY8Rbe6UNny LTEwLjUgcmUKZgowLjkx OVUgh1HrVzT3TQ0mLCHa NjYuNzUgOSAtMTAu NSByZQpmCjEgIHNjbgo1 Xn72VMBdBUUrVfMzARhx NSAtMjAuMjUgcmUKZgow XvrqMCTeb8UjTwIh Mqj2LNB4Kp5yCLY1ED19 TS5nNN0gBHRkYEofTjOo IHNjbgoxMTEuMjUgMzU2 VuF0ELVfKxB4TF9c IH8wTLThYHajVxSoZKZ3 KPIpF21IIFThBdE5UCV8 Zy0wETHzWH0cNSJjMzJw MjUgcmUKZgoxICBz W65IZKLkFhOeUrI8FrA0 QLU1ZpWuALCxMiS8NSCc WwKGHL22XFhcPZFrqrgi MzEuNSAzNTYuMjUg NDkuNSAtMjAuMjUgcmUK IyujJWVmX87FAKyhGCX6 Iw7bLGTyKN37SK2eTY6k NSByZQpmCjAuOTE4 RPOgU54IXXpeNQB9Aj8p OVCbKS15AW4oRF2lNDOb ZQpmCjEgIHNjbgoyMDku NSAzNTYuMjUgNDIg RHZqJoB2ZWCsNdTZGE38 MTggIHNjbgoyMDkuNSAz NTYuMjUgNDIgLTIwLjI1 SZLdDwAHUZWia6Ea HjJ3TP87EYQ4Yi6mVZWt AL34HL8fBB1sTNMbPWtk OfNpNJB3KAErX95PPoXx OuOtWgL0AiW1WDT5 EvQiDKYaFyP4ZACmElLK LZRbs2DiOqA0WcUiYAAo YvBpWPM9WoC3EF1dFE5k NSByZQpmCjAuOTE4 OMKfT60XEsk8HME8Wy8e NSAxMTYuMjUgLTIwLjI1 OOHjLnQVWMOip1PcOtH2 Jr5jDGSeDIIfXuYb MjguNSAtMjAuMjUgcmUK SbkyDbzlSHHrb7RlKcE5 Db7sJCVtXLLcVtEdCqag NSAtMjAuMjUgcmUK EjbyMLNvW86PFXUtUty7 YOT7Tb8bGER2FG39KU0w FV7pWVYvFYjhYlOzRNK7 NHAdE32LBDOaKvc4 ZKD0Ef3bPFH9KX32TF5q VX9dCJWpXVleZqNiRQTa keb3WRChAcGoFjA1HqI1 SSS7BM3sFB5mZFEa FRwyOuBsJHS4NVTnI36C VDJyUcY5XIC4Ql4bIUB4 NiAtMjAuMjUg (more content not included)... Normal [facility] EMS Documentationon 10-09-19 23 EMS Documentation Please click on link to see report [id number] xLjQNCiX5+prnDQolQUJ YsIArYOMcFtI1YVwwRzQ tZE0lbq8PQAoCE9WdBTX rCNR8Qt9B TVkeMVj3OVRqKZ5BS9md YHssLEB1Px8WtN7zBIJf sdQbIHBEZ71cOjehTwZw NQovVCAxODAzNDgK Qe5lJCRcTLMuBPByHCCd ICAgICAgICAgICAgICAg ICAgICAgICAgICAgICAg ICAgICAgICAgICAg ICAgICAgICAgICAgICAg ICAgICAgDQplbmRvYmoN Nm3NdCVxOr4IQdKiQrAD CjAwMDAwMDAwMzIg KXYhTOKjdr0ISQAvMHUc KFC6XCVzSAFcVBRsHNka EKDkGHYvURq4DEZjRHPl ER8QFoPbDIEbPEC8 OYLiMPVhZJOflf2QTLYg MDAwMTkzNSAwMDAwMCBu XJazPDEtOAHeFEh2LYRv YKNfAS2TFaZzTEYj HATnOfGaJISxJALdnt2T MDAwMDAwMjMxNiAwMDAw MCBuDQowMDAwMDAyNDAw LOBpGWEnHW6QAwBr KABkNWH6OAhwRITjMTKi qs6RUMZuOYXqVqsqXQZz MDAwMCBuDQowMDAwMDAz AHJ1QCAePZFnRY0Y DoLsCVSnQUV7BIVkRLPp KTImah3BEJYqNKJbZaF9 OCAwMDAwMCBuDQowMDAw LYQyNAV2UFKzLZIu ZM9AYiChAQWeTPFaCVHd UNMfAYRqej6IEHTzTYBo NDQzOSAwMDAwMCBuDQow OCTgUNR4FwJfFQEg XIXqUK0ADjDsGAMpLOC9 QVggXHIkFGSgkc4JCVNt MDAwNTExMSAwMDAwMCBu KWppDJSiDTL0SFRb TKMoBXYcVV3TGoNlMUFo GGM5ImugLYLwZXRmaf7W MDAwMDAwOTYzOCAwMDAw MCBuDQowMDAwMDUw GpO2GDGdJGIxVJ5JHqMf MDAwODgyNDYgMDAwMDAg vl3XyXUbvTcocc5YPFzY W6iGNJn8BSvZJosx TDLmElD4ExYyJSbnJIFo GUB9UiK6SpSFGHE+Cjwz MxXHEGC8LvKPOHVfOCR0 BmvtFXFLIVIBO4J8 YUBVHV6xYy9CfyL6ZND3 NLVkEaoeBq8phXThIlCv FIFRM2QsgjYtYPjEE2Vk uCUoXVJeG9FVASK4 Ru90WiphjVfLMGD7OYXA VYckJX9GKgjGHsRjKEdc Eb13V0JWz6V3DaWeP8WG rRaQnmXXAOmtA6wZ pJH0k8ctjKhAaUFCsFaa OGdJcndPalFSQUlqUHNX oF00tttZY1UtCYp9D3FL Fi1ZLDnpJyRtrG2Z zEzrANX1fG6fKJGEISbO OtuaVX7SDDTGEVs1JLy+ PiAgICAgICAgICAgICAg ICAgICAgICAgICAg ICAgICAgICAgICAgICAg ICAgICAgICAgICAgICAg ICAgICAgICAgICAgICAg ICAgICAgICAgICAg ICAgICAgICAgICAgICAg ICAgICAgICAgICAgICAg ICAgICAgICAgICAgICAg ICAgICAgICAgICAg ICAgICAgICAgICAgICAg ICAgICAgICAgICAgICAg ICAgICAgICAgICAgICAg ICAgICAgICAgICAg ICAgICAgICAgICAgICAg ICAgICAgICAgICAgICAg ICAgICAgICAgICAgICAg ICAgICAgICAgICAg ICAgICAgICAgICAgICAg ICAgICAgICAgICAgICAg ICAgICAgICAgICAgICAg ICAgICAgICAgICAg ICAgICAgICAgICAgICAg ICAgICAgICAgICAgICAg ICAgICAgICAgICAgICAg ICAgICAgICAgICAg ICAgICAgICAgICAgICAg ICAgICAgICAgICAgICAg ICAgICAgICAgICAgICAg ICAgICAgICAgICAg XJ0Pd0FdbpG2xfFbDIfr MYszESXAFy7KNVekVkAt CI2vqc8SOIpXF55inYJx YXRhIDIxIDAgUgov O2GkguOifYsdzjVtWwTb ZBISKx3YbULWLPvdB8V2 vSeeJGOrSHltUYIYHu0B JFswOT3zCPGfUNKd Di7tTFmaTIWyYCBjDzFl XGYSTi8UsJRxLX8CQVVo lA2iEn7+DQplbmRvYmoN Tx5CFnTiTIFwHymG Veg5Wb1YkPu0HGZvV5Hu HFRsRKZqa3QuVm2NYM7f vWadVSF8Nc5FFKk6Mx4+ TUoboJSpUT7WJpob N4IgPMAoBXLxWYYgCE0F IuFAAQpTgGwhIOYCizKu C2Rg+YtLvD8ccNmQdPHY RQVe4YHWStSl32Po DlUEoouA+CALIaQl7r+k p3X1HMNsYRQ2eRFIBD7B 9stUsi1RIj6OV8A5DgvY RFSKMSuDpC2NVFqD E/BAIePmAGL3wrIujG5I IX6ug5TgJDvZZyH1RNDv b3MzDBj5PCtlD96shUAh gGKtJtIkTWRwTl4R C55eSKarLk25ZZnqYMYp OyDrVVh3Me9WN8OcedOc kKBtJTUqLDTIT1Cka758 nlPoszB5LZwaAW6x zyKctXX5SQkzQTQyRfOd MjYgMCBSCj4+Cj4+Ci9U gVLlJZ7XBHuzCf6+DQpl gqYbBdeSVs7TBwMa EGMdQmcCHkw1Lt8RPm05 SCaeBPIgLdZvATd4Vr8B C0SrvIErkbTpIafagBYZ EGRyZRRBB5mmeqs1 oIL4HgzcJxScs8OfO7Bs VLp5Pk8XI6CwWBP1FBw2 Yz9UVKFrZrK4DuCeRMMY Mv6UBd6UY9X2UlN2 nAGtM9Fipm1JZ8K5bBHl E4xJYrsvK1UQKb2KNiJ0 uoHstE3ZrEgadyWnNeJg MjRQMFUwtTRSMLcw FinM2xGNL7aw8CBPq4Ga SnJYPQZFXGrx3RoGeOF7 m2kA8fOqXnnTsUYazqlV b3aRbY6LD0rP2I9T IC2yw7SmSDNgVFjszzGl BolYOu0CCqjtAIBuKeiZ Vui1Cm0IGGQgMt8buIHc Ji3UXMGlLd5RJjOa Ln6OBnPkMz3NXgUdSm6Y CVC2Eb5QIXU8rtLgQv1z YSAxCj4+DQplbmRvYmoN Uc8ZCgrfKVFuQfuA Nyv4Of5DKXAsOi3jlFOz Rl9eGXGnGa6+DQplbmRv VkkYEs7HIxceNOBaWdtV Mfb1Qr4ZGYNsZy4o sEBzGo6VTKKwBf6STsRf Br7SZjWiGh2LQcPyVy1R IZR8Vi9XQXE5xoCjGu7j YSAxCj4+DQplbmRv EslELr5KKaWpQMEuHqsN Aow8Vv4ESSCsEf8ggHGs MS7KCOHID2YcwBDyTGIZ BErAZz7Yo5sxHFTI S1Exn2EblwWgkkQRp463 nkHeLgMtWIWYMZpiZF7r f1EwnsrpU2lfQG72vYB0 QMkNS3H5CjB1lZDq R0U8hWFcNx6Rn1RjuXPy QQZlEhZsOCQFOn2VcZXr LO4Cn209La4+DQplbmRv DyxBHf8FQsRxDOTy QorLLgv9Tc6CZXHzYf1z aXUjGK6WXXWZJ7KnqIPf RRKUIUnIIx6In8twRHLF Q2TCUES8l2ItdGtc Ff6qCEgCM80bKGLfcI7f KQgPLJLpvQx8jLyBD7Nf D6rbqTJ9QArEMJ5qKTrS M9I0pJHpRY8jnlEj MAo+JsjwB8qBVY1KADTD OJAvU9siGM91oLL7Yu0Q LgCoUu3Mq556LQOzC4Mh cHRvciAzMiAwIFIK D2Y5XvB1fEOvJ0HKCMKh bnRUeXBlMgovVHlwZSAv Hc2xqIwrQlOnEPS5NiU1 MWHbPUs6YvUkZx7+ LXcijrNiKqjXZb5IOkCr NKAdZynTMkc1Fa7Uj3Ab ncAvPGFdBtKvQOMcPp9X YXBIZWlnaHQgNTkx Qoo1Jhl0Tw6PEZHlHA10 NRKkSH8rXEQ9ShfyVoio Y2AgLrQQU6SjcmYRMh27 UCloJYuwXwd0CABy GC15OMOgYFC7VlQdZqNi AyX4DTS3MZIhAaZyANor VJHtJm4Jf154BiloYZXa OVDyBBFIDj5Ab270 EfLiKSIvMK2LESYLX5Ja bNKsGRDAMBkXKm7Ne0bp WQCQH7c2EOiyE2QhJ8dr HPDXG0F5LS6NNNz4 QuK5OGp5Qp3EePXeAY8W a656DCJaO5JepXHuhmi+ Da2UFR0kz4YmSAsCOiAm OIKxk9EuTQw3HKka OygttWBvHF7HoTU8ZZBr J58sHQrxEXAaO3SmUJJ3 OQo+Lj2Ui2YoBGNaXFe8 hQ3Ov7rVNHI00he9 TA/P6qiptYiPg1UBiQA7 V6LN85EGf7SQK/77yrtu KvLPDbZjGkohEIDn6elQ o1u5ygY227ZJRwQd ldV5I2iyUYtqcqEoJE8y 4EhHHDYoIA7N9rEhNyzU l12Ivxfa+B0rsd0uHGJe MJrvpax2VOCYR7M5 MlTH0NznxiMF+tDppbWv 9EF4Ogn+VqGu/bIPnrvi o9HKE3XqHBAGDAZwQymY LSQLGvtZD4ndFhGJ /xml4An4+p53YVsAXZSq SkQHQimiJEGUUqfNc/zr cH/qCGNzFN2M8SNSLirL P2xNZxsuscDdP/TK icgKyZQkKdnzJyQzsuc0 9qVaeE1oHT/JNitNtwaw SetUlpdgT3VnFgHCRFax 7SDyM8kZwT4/mRia 6G6DCK3kc3XwCPItMZmv dvDkMpaQOb5DPbIfNADh XwuITnv0Gg0HXNPlNy1s eMJnUbSLZFUGG3Fh vTJyGEGVEKkFK27DYd4N UVEcEI4xTH70Pr4uvJZa SdW0OYXhCs9QW2ZuP90c wC6xGS4ZZMRneGt2 jW1KHm8EhOC8lPXhMP0K xRUrKLplFK7Zsbvbq9Jz ZNG7RYOwEjpa (more content not included)... [facility] Coding Summary.on 10-03-2022 Coding Summary. CD:[id number]:[id number] Gh0bWw+PGhlYWQ+PE1FV KSiQ18ycASkuC0yK5XZU ElOSywgQVBQTElOSyIgb vNyZI6shJCgFSDx IC8+WO7uBXJbNbmxbGKn v5D3kIV0Z00pxh7kHFdy qPS7JONoUxFfuzgqs4id lUw8AStyQandZrJr WPFoyP16DFM2aJ76If54 aFDgxJUnt0rfoUq7RfHz HJFvDWZ2mOrdBSxto0Vn CALqX90ncCHnc1C0 IGNvbGxhcHNlOyBlbXB0 jD8kKWjoacmqo0xbnyey Bim7bk27pVSmg8O4cJT3 R2VyoxB9DQCfpXFd DbmwjGYMkP4trgfjc1me qrnkDnKwCZKnYCj5XMv7 ZJLdtEehKcIkTE80QHI5 JYZvwjCkS9ApZVDq qTceSbW3h4D6Vx6EP2ZN XlubX9HJITSVGVgptDK+ CI96qr27H3XmUptvRuy5 NFJtHHO9cMU6oA4w ASBbLUnqx6H2wAV4W7Pp tvUsaz3sh4iaTCSzAVce K70asDEus4G2ZKLtoBP0 SBBoxIzjRlAzwS82 Oyc+SPCchFpth0UhIbwm j1bqz1wtkCe1JhcyYBSw raOnfKfuSFQ3e8LbFw2q ZDVyiLH1rBI6tC1g CoMuHwB3SOgtV687TiCd cWLwTsalX58cU7AxrAZ+ SRRrPqg6SKMtjBlpDZ8e Q2IvTGCopzbsrWKm iVeeCU4aMLSdtjcgDEIc rB5oYIXcH7z1HyJsOfX0 YIpqV1SpKQRlpbocRu10 uN0zDjEeXfN7PRon K0YsjkR0OCTyhWPwYIej RRP7K34ei8Z4UKYdTMUc VEG1tHQ0iC6knYufjloj bGVmdDsgdmVydGlj FCrgOMmxP095HGYwdJza PkNvZGluZyBEYXRlOiAg MDMvMDgvMjAyMzwvdGQ+ PNKjHLK6yTukXHHm jCZnFJfyJz2hbZizePvj AB7gIAPesivjJBPoyG9o MJWgkVKaeZbmFK0wUNHl djiop840PeRwQFB7 UPVsnJYfO5FgbI7oDqEj DBRhAMRcU4SulSYgNBoc E943JEgrKwO4ZZOghrPk E4IdDMXfoWrmRzH8 k3B8Ga6Zd8QjbyniA2Ep fGFuCcSjNgjaEJs7Q0Ga PjwvdHI+PV03IBVxUJ21 HDx3VEE1aRnqZEpm UFZeS4LubY8uGdMvTDVc ZGRkOyc+PHRhYmxlIHdp ZHRoPScxMDAlJyBzdHls BW0hFk7pPQMcLIFm jDxxgRPpVpXer0hgAYDq AYlnOU7ebNvtH9TkbDV1 VTOlf3t6Po27D14iA0Tb dXA+FPImdOI6lGA1 vX1qNgFeObF8CWnhN726 JtHdpWQeGfldq0ihn2zv bZf1FbO7LUOzzrOumJml VHF3t6OoDj90N68p IHdpZHRoPSIxNSUiIHZh oGflwg8oqN8eJi4+PGNv lVP9aUU0zP5gBxYlPnU6 ZJplU387BkXamGFq Juxcx6xtc0aoqJg7CqPj NZGtpfEowSpbBUD3g2Lh Dy48S4TyxBuhi6HrPey1 lo36rRFcr9Y5eMR3 B9BfYCZmqbreeXUueMry MN2dKHRmhcapVVKqnM9w LNKzE1x7EtUvDuR6NWua M8BddqW6TMEriWPe EHEeeUWXqB9tvizea5pz yyysJgDoHBJnWUd2AVz3 SBCwhOxhElJsKRT1KsQ6 MXU6yIHtnL8csMwe ruilvP6tLsu+XRN0pSTn yVSIUJ2xYumyvCG+PHRk WYV8sZbaZDncYGJzeE2n WLRqV0r8YbIkIdU3 BFjfX5WsbaH1CTMjjLIi ZOFjfEGPmF8lubfcn0ky grarImJeWUBgBQd0TXf0 LWFsaWduOiBsZWZ0 SrV7FIF6lDDiuV0jnSfn rhmisT0jYzu+QmlydGgg QPJ5HEq3K2CbZbj9DTHa eHttVR8zbHTnLQku Kt8hlCsqhAiwNJ4xDGXc pyuou753GnNgw0dtIVFv kBHmAIaiOEN7W57in2E8 EQQsMODcIWN5ePZ7 zM3dsPcmpqpptBQzeFir srShvOgiCQopEByxJ599 ISZyuKgeErOeTUk2S3Po Mef7BBMlxVueIG1r vKEgSSfgSq1xtTtpuPvn OE7qXMVhkuapw814ErEz b7uuENPvhTCtNFvlABD8 P19dd9V6KZCzLLYt WBC2tQC9gK7buPhouzvz bGVmdDsgdmVydGljYWwt STfaC932PBGtoQkqRjOk yBw1X9ZwKun5KHGs pPciEV4wqXUkQKeoDu8a wJiwpMqvNU5kQQZgnijw s101QpUuk0whHUNwdRAg ESraVIR2F14vb0B8 ITDjEDPoZAC9fGD2qT4h bGlnbjogbGVmdDsgdmVy vXpjBYhwTQmgE186CPRi cDsnPlBhdGllbnQg ONopGZi1L3RrBpncoKX+ CU07PLVfPX55mFSgvYVx a6hgtTl0DwHfVFWzOMR5 mUeeZMfmq3TmQRSg J75eoOKer1R7IXHqhMqe cGBeFkTnaTL1mR1wAOfb uyyli8fsxsqbSxsiv9wb jf97nW23X20pCZde ZHRoPSIzMCUiIHZhbGln bv1ebM8yRz8+PGNvbCB3 hBK3mM4uNMNyHoK0GBio I576XdOyjOAxMdph k4wxg2sooFw7TtF1DHVx voAusJklYJS7b9UiLx29 S49uUTomJUKwTRMgXTTf HUIlsYikgb5evO4p Ii8+UYBxcSD7yHO1qM0c FiBdRkX2USmsQ841LuQr oCQzUuxmF55bH5IkhAY+ KAVrMqu9CZPjnMpl HV3mxEIhWRgxZw0aAXU9 IjTrGuSnYCrjP9LlQOFe htxycaomfRD7DXKuGIXo aY79St7yeMzjEYKr hHRMqV4vfpsuh6ufrweq NaUwKQJiDAk6AIn7BKIv eHwjNjKdCPG0RoH3TCZ1 lVTunH2oyCyxrmrz dC0hJ4AhHGPeeuvhGm36 vD8xDwNdNgX2XAghXwc+ REVMUEhJQSBJSUksIFJB JU1FElUwXqtvzDO+ FCJjPPC9lAcxQXikKTKx iU8lMDNmX2a3FlLoRxN0 XLorP2RpXARriaeiXc66 dX9iXvVzTgC4QCsr G7OqavO8KWXvlBKjYJcc ORF0P53zj9H0YCDeWNQi WHG2lKV9sZ8ekUgwrxdo bGVmdDsgdmVydGlj YGxuXZldV029KKWiiTob LbKrKzJqIrK1DWw7Y7Aw Fzs1RQEgyKkwGP9pvIMr KTxgNl7fmMoqsIzy OL5nOOUkmwyzEQXkvU8r JBSxpZVvsAxuJF2mYWCj hkioa562JyYpZTK9LRWc yDIfD5UukX2qLtVl ALVfUYYwC0FptMXgTOxb E255AHmbUqU1ZDQaawJf R2WvVHTyhVmmClL3z4A5 Xc9gYqOGNVOjzxtk dGQ+RTGkADJ2tOxySGfb EFLesF2oTFHzH7o3CgTg JeP1EDelE4XqVXFgjowm Ye44qL1vNuIcTkG6 ESkjY4IvqrE1SGJapZEu BMdbBUL0G16bq2A3ISHt FGKoLGH7zVH0lH1esAed bjogbGVmdDsgdmVy uEofMQrtAMtwQ850GFXc hBagXr6rfEB9M3EzRxd7 NAUhnScoJV9nbUYsMEjw Eu6uwPpbfOxwDO9q UWKaturoZOFnoI0tUXEd vFVijCjlSH1sBZIutmwg q011KcHkZLM2GXBjnBAu C2YibN7qRjZmMIQe REYwS1FdaPToTUbdZ478 LFjaUvH5DCJrguNcS0Zz FRAgmFehHwR7w3E9Sd9V qFItG0OlJ4t3L3Oj PjwvdHI+DJ67CYFvPH02 bICvxPBjy1idbNe9HgWi QFRfCFT0gJmcWLbjj3Jd OQYtS35hpRAqi3I4 IGNvbGxhcHNlOyBlbXB0 gA1pKPzwactru8jdiqmw Xiflf5nhqz32tS27Q04d IHdpZHRoPSIzMCUi YGBniLastr6voO2rBw7+ IZNzzFR2eSC4kW8sYdJe VrM2NEnrQ639ImYheSHt Tcdez6xuj0niqQa3 IjIwJSIgdmFsaWduPSJ0 c4TzNf89J80xEGrhXEPp AGXcGBQdASUqyWuxla5a bM8nHa5+LD0sp9tj go17cS00xDI+PHRkIHN0 wJwjEJyvUZAzuR2nHJim IsO8LAQuJgTfaM03fNUy FJshEa3tgDasrLxj UW7dNFEingezx448JgOq u6htEKWzyLTzRWykNNI7 K35ki3I6ZLSqMOXrCFG1 jRW0wA3qxOwsojkx bGVmdDsgdmVydGljYWwt OAgfN007NQQueShoJgAw bJPsP3rfoqTODE7bVoyo dGQ+PGXoZAG8dBuf OGfyKXIczG3vJYInQ7p0 FjFaAnG2XJvqX6BpzcK6 FGHfuLYiUZCfgPRAoU4c ikzhd9lzuaseTqOm PKSpCPj1CNl8BPLgvTod CbIxKLE7WsZ6TUB1eQUd rQ1qvIafcptpiN5lGsg+ RklOOjwvdGQ+PHRk YBY6lUguWBilTRZibV0g QHOxK2f9JrLaYhM4LZct A2OmrdO5RABftDHkCDYe uBUTdD0hotyyl5nu dygxPpNbBISxINo7QCq3 JBLfgQmtIpGbXJR8CyY0 ZTP4xJBncM0wsLffjpah tE7cDif+TVJOOjwv dGQ+HOCwYSW1xHbwVTsc NCWkmT3dVPFaD6h3WpZp VqD7PMjoU9MwhlB9LHMe vLIcIYRtkLPJnZ6p ziytj5zlxvewFzZoCRDi EQs7PTg7OZEtgUaiGvIe SSM7KoQ5UAE7vFYveF9o qCtzszpraB3fSbk+ KBV4MKO9AN94EZ10R8Pl PjwvdGFibGU+PHRhYmxl IHdpZHRoPScxMDAlJyBz nTwrIM1xOr8hMVQa LWNv (more content not included)... [facility] Consent for Treatmenton Consent for Treatment [id number] #1.00CD:127 [facility] Discharge Instructionson Discharge Instructions [id number] 5#1.00CD:127 [facility] ED Clinical Summaryon 2022 ED Clinical Summary [address] [address] ED Clinical Summary Person Information Name: COREY ALONSO III [place] Age: 27 Years : 1995 Sex: Male Language: Czech PCP: EMELI CHI CNP Marital Status: Phone: [phone] Visit Id: Visit Reason: Headache; Seizure; SEIZURE [...] 09/30/2022 21:30:18 09/30/2022 21:30:18 09/30/2022 21:30:18 ADDRESS: [place] [id number] [phone] PHYS DOC NOTES: MEDICAL INFORMATION: Prescriptions Given: Medications to Continue with No Changes Other Medications lamotrigine (lamotrigine 100 mg oral tablet) 2 times a day. oxcarbazepine (Trileptal) By Mouth 2 times a day. PATIENT EDUCATION INFORMATION: Instructions: Epilepsy Follow up: With: Address: When: EMEL[facility] CHI [address] [place] [id number] [phone] Business (1) In 3 days DIAGNOSIS: Seizure [facility] ED Note-Physicianon 10-01-19 ED Note-Physician Basic Information Time Seen: Junior Raygoza DOCassandra 09/30/2022 20:45 Chief Complaint Patient brought by [...] seizure. Patient's significant other states that around [facility] when he had a generalized tonic-clonic seizure [...] baseline. He follows with a neurologist in [place] for this. He states that he is [...] EMELI CHI In 3 days [address] [place] [address]- [phone] Business (1) Additional Instructions: Patient Education Epilepsy [...] Diagnostic Results No qualifying data available. [facility] Comment on above: Result Comment: Elec ciroally Signed By: Junior Raygoza DO\.br\Date and Time [...] these instructions at home: Medicines ? Take cexy-nzg-tndnixn and prescription medicines only as told by [...] care provider. This is important. Contact a [facility] (more content not included)... Normal [facility] ED Patient Summaryon 023 ED Patient Summary [address] [address] Patient Discharge Instructions Person Information Name: COREY ALONSO III Age: 27 Years Arrival Date: 09/30/2022 20:00:11 Discharge Diagnosis: Seizure Primary Care Physician: EMELI CHI CNP Provider Information Primary Provider: Junior Raygoza DO [facility] Class[facility] Tender:None The exam and treatment you received in the Emergency Department were for an urgent problem and are not intended as complete care. It is important that you follow up with a doctor, nurse practitioner, or physician?s dental hygiene administrative assistant for ongoing care. If your symptoms become worse or you do not improve as expected and you are unable to reach your usual health care provider, you should return to the Emergency Department. We are available 24 hours a day. GAVIN GODFREYGHADACOREY J has been given the following list of patient education materials, prescriptions and follow-up instructions: Follow-up Instructions: With: Address: When: EMELI CHI [address] [place] [phone] Business (1) In 3 days In the event that this physician does not participate in your insurance network, please consult with your insurance company to find a nearby participating provider. Patient Education Materials: Epilepsy A MESSAGE TO ALL PATIENTS REGARDING OPIOIDS PRESCRIPTION OPIOIDS: WHAT YOU NEED TO KNOW Prescription opioids can be used to help relieve zfjrqohk-wf-gukzpq pain and are often prescribed following a [...] be struggling with addiction, tell your health ocular care technologist and ask for guidance or call [facility] National Helpline at 7-437-984-JNUI. v Source: [place] Department of Health and Human Services/[employer] (more content not included)... Normal [facility] Monitor Recordon 09-30-2022 Monitor Record [id number] [facility] Pre-Arrival Noteon Pre-Arrival Note Pre-Arrival Summary Name: , ncbrenda Current Date: 09/30/2022 20:10:38 EST Gender: Male Date of : Age: 27 Pre-Arrival Type: EMS ETA: 09/30/2022 20:20:00 EST Primary Care Physician: Presenting Problem: seizure Pre-Arrival User: Referring Source: Location: Completion Date/Time: 09/30/2022 19:50:00 [facility] Emergency Department Pre-Hospital Report Form Vital Signs: BP 144/96, HR 98, SPO2 99%, GCS 15 Pre-Hospital Report: Pt coming from [facility], had a seizure, 5th one today, known to have some back in July, alert and alittle confused Treatment in Route: Response to Treatment: Misc. Issues: Normal [facility] GROUP A STREP CULTUREon -2 S. pyogenes Ag Ql (Unsp spec) Culture Observations: NEGATIVE FOR GROUP A STREPTOCOCCUS. Normal [facility] Comment on above: Performed By: #### G RASTCX, SSCRN #### [facility] [address] [place] [address] Dr. Bob Nelson STREPT SCREENon 09-23-2022 STREP SCREEN A Negative Normal NEGATIVE [facility] Comment on above: Performed By: #### G RASTCX, SSCRN #### [facility] [address] [address] [address] Bob Nelson Basic Metab w/rfx MGon 08-07 Anion gap [Moles/Vol] 11 mmol/L Normal 9-17 [facility] Comment on above: Performed By: #### B MPX #### [address] [address] Emergency Service Worker: Carter Collins MD Calcium [Mass/Vol] 10.0 mg/dL Normal 8.6-10.4 [facility] Comment on above: Performed By: #### B MPX #### [address] [address] Emergency Service Worker: Carter Collins MD Chloride [Moles/Vol] 102 mmol/L Normal 98-107 [facility] Comment on above: Performed By: #### B MPX #### [facility] [employer] [address] [place] [address] Emergency Service Worker: Carter Collins MD CO2 [Moles/Vol] 26 mmol/L Normal 20-31 [facility] Comment on above: Performed By: #### B MPX #### [facility] [employer] [address] [place] [address] Emergency Service Worker: Carter Collins MD Creatinine [Mass/Vol] 0.94 mg/dL Normal 0.70-1.20 [facility] Comment on above: Performed By: #### B MPX #### [facility] [employer] [address] [place] [address] Emergency Service Worker: Carter Collins MD GFR/1.73 sq M.predicted among non-blacks MDRD (S/P/Bld) [Vol rate/Area] mL/min/{1.73_m2} Normal >60 [facility] Comment on above: Result Comment: Effective Apr [...] secretion. Performed By: #### B MPX #### [address] [address] Emergency Service Worker: Carter Collins MD Glucose [Mass/Vol] 97 mg/dL Normal 70-99 [facility] Comment on above: Performed By: #### B MPX #### [address] [address] Emergency Service Worker: Carter Collins MD Potassium [Moles/Vol] 4.0 mmol/L Normal 3.7-5.3 [facility] Comment on above: Performed By: #### B MPX #### [address] [address] Emergency Service Worker: Carter Collins MD Sodium [Moles/Vol] 139 mmol/L Normal 135-144 [facility] Comment on above: Performed By: #### B MPX #### [facility] [employer] [address] [place] [address] Emergency Service Worker: Carter Collins MD Urea nitrogen [Mass/Vol] 12 mg/dL Normal 6-20 [facility] Comment on above: Performed By: #### B MPX #### [address] [address] Emergency Service Worker: Carter Collins MD Basic Metabolic Panel w/ Ref rehana to MGon 08-07-2022 Anion gap [Moles/Vol] 11 mmol/L 9 - 17 mmol/L [facility] Calcium [Mass/Vol] 10.0 mg/dL 8.6 - 10. 4 mg/dL [facility] Chloride [Moles/Vol] 102 mmol/L 98 - 10 7 mmol/L [facility] CO2 [Moles/Vol] 26 mmol/L 20 - 31 mmol/L [facility] Creatinine [Mass/Vol] 0.94 mg/dL 0.70 - 1.20 mg/dL [facility] GFR/1.73 sq M.predicted MDRD (S/P/Bld) [Vol rate/Area] - PINF [facility] Comment on above: Effective Apr 30, 2022 [...] [Mass/Vol] 97 mg/dL 70 - 99 mg/dL [facility] Potassium [Moles/Vol] 4.0 mmol/L 3.7 - 5.3 mmol/L [facility] Sodium [Moles/Vol] 139 mmol/L 135 - 144 mmol/L [facility] Urea nitrogen (BldV) [Mass/Vol] 12 mg/dL 6 - 20 mg/dL [facility] CBC with Auto Differentialon 08-07-2022 Absolute Eos # 0.08 [facility] Absolute Immature Granulocyte 0.04 [facility] Absolute Lymph # 2.27 [facility] SECO URS [facility] Absolute Chase # 0.38 [facility] RS [facility] Basophils (Bld) [#/Vol] 0.03 10*3/uL [facility] Basophils/100 WBC (Bld) 0 % 0 - 2 % B ON [facility] Eosinophils/100 WBC (Bld) 1 % 1 - 4 % [facility] Hematocrit (Bld) [Volume fraction] 45.6 % 40.7 - 50.3 % [facility] Hemoglobin (Bld) [Mass/Vol] 15.6 g/dL 13.0 - 17.0 g/dL [facility] Immature granulocytes/100 WBC (Bld) 1 % High 0 [facility] Interpretation and review of laboratory results Abnormal [facility] Lymphocytes/100 WBC (Bld) 31 % 24 - 43 % [facility] MCH (RBC) [Entitic mass] 28.5 pg 25. 2 - 33.5 pg [facility] MCHC (RBC) [Mass/Vol] 34.2 g/dL 28.4 - 34.8 g/dL [facility] MCV (RBC) [Entitic vol] 83.4 fL 82.6 - 102.9 fL [facility] Monocytes/100 WBC (Bld) 5 % 3 - 12 % B [facility] NRBC Automated 0.0 0.0 per 100 WBC [facility] Platelet distribution width (Bld) [Ratio] 12.6 % 11.8 - 14.4 % [facility] Platelet mean volume (Bld) [Entitic vol] 9.8 fL 8.1 - 13.5 fL [facility] Platelets (Bld) [#/Vol] 215 10*3/uL [facility] RBC (Bld) [#/Vol] 5.47 10*6/uL 4.21 - 5.7 7 m/uL [facility] Segmented neutrophils/100 WBC (Bld) 62 % 36 - 65 % [facility] Segs Absolute 4.58 [facility] WBC (Bld) [#/Vol] 7.4 10*3/uL [facility] CBC with Diffon 08-07-2022 Abs. Basophil 0.03 k/uL Normal 0.00-0.20 [facility] Comment on above: Performed By: #### C DP #### [facility] [employer] [facility] [place] [address] Emergency Service Worker: Carter Collins MD Abs.Imm.Granulocyte 0.04 k/uL Normal 0.00-0.30 [facility] Comment on above: Performed By: #### C DP #### [place] [address] Emergency Service Worker: Carter Collins MD Abs.Neutrophil (Seg) 4.58 k/uL Normal 1.50-8.10 [facility] Comment on above: Performed By: #### C DP #### [place] [address] Emergency Service Worker: Carter Collins MD Basophils/100 WBC (Bld) 0 % Normal 0-2 [facility] Comment on above: Performed By: #### C DP #### [place] [address] Emergency Service Worker: Carter Collins MD Eosinophils (Bld) [#/Vol] 0.08 10*3/uL Normal 0.00-0.4 4 [facility] Comment on above: Performed By: #### C DP #### [place] [address] Emergency Service Worker: Carter Collins MD Eosinophils/100 WBC (Bld) 1 % Normal 1-4 [facility] Comment on above: Performed By: #### C DP #### [place] [address] Emergency Service Worker: Carter Collins MD Erythrocyte distribution width (RBC) [Ratio] 12.6 % Normal 11.8-14.4 [facility] Comment on above: Performed By: #### C DP #### [place] [address] Emergency Service Worker: Carter Collins MD Hematocrit (Bld) [Volume fraction] 45.6 % Normal 40.7-50.3 [facility] Comment on above: Performed By: #### C DP #### [address] [address] Emergency Service Worker: Carter Collins MD Hemoglobin (Bld) [Mass/Vol] 15.6 g/dL Normal 13.0-17.0 [facility] Comment on above: Performed By: #### C DP #### [address] [address] Emergency Service Worker: Carter Collins MD Immature granulocytes/100 WBC (Bld) 1 % High 0 [facility] Comment on above: Performed By: #### C DP #### [address] [address] Emergency Service Worker: Carter Collins MD Lymphocytes (Bld) [#/Vol] 2.27 10*3/uL Normal 1.10-3.7 0 [facility] Comment on above: Performed By: #### C DP #### [address] [address] Emergency Service Worker: Carter Collins MD Lymphocytes/100 WBC (Bld) 31 % Normal 24-43 [facility] Comment on above: Performed By: #### C DP #### [address] [address] Emergency Service Worker: Carter Collins MD MCH (RBC) [Entitic mass] 28.5 pg Normal 25.2-33.5 [facility] Comment on above: Performed By: #### C DP #### [address] [address] Emergency Service Worker: Carter Collins MD MCHC (RBC) [Mass/Vol] 34.2 g/dL Normal 28.4-34.8 [facility] Comment on above: Performed By: #### C DP #### [address] [address] Emergency Service Worker: Carter Collins MD MCV (RBC) [Entitic vol] 83.4 fL Normal 82.6-102.9 [facility] Comment on above: Performed By: #### C DP #### [address] [address] Emergency Service Worker: Carter Collins MD Monocytes (Bld) [#/Vol] 0.38 10*3/uL Normal 0.10-1.20 [facility] Comment on above: Performed By: #### C DP #### [address] [address] Emergency Service Worker: Carter Collins MD Monocytes/100 WBC (Bld) 5 % Normal 3-12 [facility] Comment on above: Performed By: #### C DP #### [place] [address] Emergency Service Worker: Carter Collins MD Neutrophil (Seg) 62 % Normal 36-65 [facility] Comment on above: Performed By: #### C DP #### [address] [address] Emergency Service Worker: Carter Collins MD NRBC Automated 0.0 per 100 WBC Normal 0.0 [facility] Comment on above: Performed By: #### C DP #### [place] [address] Emergency Service Worker: Carter Collins MD Platelet mean volume (Bld) [Entitic vol] 9.8 fL Normal 8.1-13.5 [facility] Comment on above: Performed By: #### C DP #### [address] [address] Emergency Service Worker: Carter Collins MD Platelets (Bld) [#/Vol] 215 10*3/uL Normal 138-453 [facility] Comment on above: Performed By: #### C DP #### [facility] [address] [place] [address] Emergency Service Worker: Carter Collins MD RBC (Bld) [#/Vol] 5.47 10*6/uL Normal 4.21-5.77 [facility] Comment on above: Performed By: #### C DP #### [facility] [employer] [address] [place] [address] Emergency Service Worker: Carter Collins MD WBC (Bld) [#/Vol] 7.4 10*3/uL Normal 3.5-11.3 [facility] Comment on above: Performed By: #### C DP #### [facility] [address] [place] [address] Emergency Service Worker: Carter Collins MD EEG video monitoringon 08-07 Samira Rubio MD 08/07/2022 6:14 PM LONG-TERM EEG-VIDEO MONITORING CLINICAL NEUROPHYSIOLOGY LABORATORY DEPARTMENT OF NEUROLOGY [facility] Patient: Corey Alonso III Age: 26 [...] revealed no abnormalities. SAMIRA RUBIO MD Diplomate, [place] [employer] and Neurology Diplomate, [place] Board of Clinical Neurophysiology Diplomate, [place] Board of Epilepsy Please note this is a preliminary report and updated daily. The final report will have a summary of behavior and electrographic findings with clinical correlation. [facility] mi[employer] Phone: EEG video monitoringOrdered By: Samira Rubio on 08-07-2022 [facility] Phone: LAMOTRIGINEon 06-19-2022 Lamotrigine, Serum 4.2 ug/mL Normal 2.0-20.0 [facility] Comment on above: Result Comment: Dete ction Limit = 1.0 Performed By: #### C BC #### [facility] [address] [place] [address] Dr. Bob Nelson CBC AUTO DIFFon 06-11-2022 BASO # 0.0 103/ul Normal 0.0-0.1 [facility] Comment on above: Performed By: #### C BC #### [facility] [address] [place] [address] Dr. Bob Nelson Basophils/100 WBC (Bld) 0.2 % Normal 0.2-2.0 [facility] Comment on above: Performed By: #### C BC #### [facility] [address] [place] [address] Dr. Bob Nelson EO # 0.0 103/ul Normal 0.0-0.7 [facility] Comment on above: Performed By: #### C BC #### [facility] [address] [place] [address] Dr. Bob Nelson Eosinophils/100 WBC (Bld) 0.0 % Critically low 0.9-7. 0 [facility] Comment on above: Performed By: #### C BC #### [facility] [address] [place] [address] Dr. Bob Nelson Erythrocyte distribution width (RBC) [Ratio] 13.0 % Normal 11.0-15.0 [facility] Comment on above: Performed By: #### C BC #### [facility] [address] [place] [address] Dr. Bob Nelson Hematocrit (Bld) [Volume fraction] 40.4 % Critically low 42.0-54.0 [facility] Comment on above: Performed By: #### C BC #### [facility] [address] [address] [address] Bob Nelson Hemoglobin (Bld) [Mass/Vol] 14.3 g/dL Normal 14.0-18.0 [facility] Comment on above: Performed By: #### C BC #### [facility] [address] [place] [address] Dr. Bob Nelson IG # 0.03 10e3/ul Normal 0.00-0.03 [facility] Comment on above: Performed By: #### C BC #### [facility] [address] [place] [address] Dr. Bob Nelson IG % 0.3 % Normal 0.0-0.5 [facility] Comment on above: Performed By: #### C BC #### [facility] [address] [place] [address] Dr. Bob Nelson LYMPH # 0.7 103/ul Critically low 1.2-3.8 [facility] Comment on above: Performed By: #### C BC #### [facility] [address] [place] [address] Dr. Bbo Nelson Lymphocytes/100 WBC (Bld) 7.2 % Critically low 20.5-6 0.0 [facility] Comment on above: Performed By: #### C BC #### [facility] [address] [place] [address] Dr. Bob Nelson MANUAL DIFF REQ NO Normal [facility] Comment on above: Performed By: #### C BC #### [facility] [address] [place] [address] Dr. Bob Nelson MCH (RBC) [Entitic mass] 28.7 pg Normal 25.9-34.0 [facility] Comment on above: Performed By: #### C BC #### [facility] [address] [address] [address] Bob Nelson MCHC (RBC) [Mass/Vol] 35.4 g/dL Critically high 29.9-35.2 [facility] Comment on above: Performed By: #### C BC #### [facility] [address] [address] [address] Bob Nelson MCV (RBC) [Entitic vol] 81.1 fL Normal 80.0-94.0 [facility] Comment on above: Performed By: #### C BC #### [facility] [address] [address] [address] Bob Nelson MONO # 0.6 103/ul Normal 0.3-0.8 [facility] Comment on above: Performed By: #### C BC #### [facility] [address] [address] [address] Bob Nelson Monocytes/100 WBC (Bld) 6.0 % Normal 1.7-12.0 [facility] Comment on above: Performed By: #### C BC #### [facility] [address] [address] [address] Bob Nelson NEUT # 8.8 103/ul Critically high 1.4-6.5 [facility] Comment on above: Performed By: #### C BC #### [facility] [address] [place] [address] Dr. Bob Nelson Neutrophils/100 WBC (Bld) 86.3 % Critically high 43.0- 75.0 [facility] Comment on above: Performed By: #### C BC #### [facility] [address] [address] [address] Bob Nelson Platelet mean volume (Bld) [Entitic vol] 9.1 fL Critically low 9.5-13.5 [facility] Comment on above: Performed By: #### C BC #### [facility] [address] [address] [address] Bob Nelson PLT 177 103/ul Normal 150-450 [facility] Comment on above: Performed By: #### C BC #### [facility] [address] [place] [address] Dr. Bob Nelson RBC 4.98 106/ul Normal 4.70-6.10 [facility] Comment on above: Performed By: #### C BC #### [facility] [address] [place] [address] Dr. Bob Nelson WBC 10.2 103/ul Normal 4.0-11.0 [facility] Comment on above: Performed By: #### C BC #### [facility] [address] [place] [address] Dr. Bob Nelson CBC W MANUAL DIFFon 06-11-20 22 ATYPICAL LYMPH # Normal [facility] Comment on above: Performed By: #### C BC #### [facility] [address] [place] [address] Dr. Bob Nelson ATYPICAL LYMPH % Normal [facility] Comment on above: Performed By: #### C BC #### [facility] [address] [place] [address] Dr. Bob Nelson BAND # 0.0 103/ul Normal 0.0-0.3 [facility] Comment on above: Performed By: #### C BC #### [facility] [address] [place] [address] Dr. Bob Nelson BAND % 0 % Normal 0-5 [facility] Comment on above: Performed By: #### C BC #### [facility] [address] [place] [address] Dr. Bob Nelson BASOM # 0.00 103/ul Normal 0.00-0.10 [facility] Comment on above: Performed By: #### C BC #### [facility] [address] [place] [address] Dr. Bob Nelson BASOM % 0.0 % Critically low 0.2-2.0 [facility] Comment on above: Performed By: #### C BC #### [facility] [address] [place] [address] Dr. Bob Nelson BLAST # Normal [facility] Comment on above: Performed By: #### C BC #### [facility] [address] [place] [address] Dr. Bob Nelson BLAST % Normal [facility] Comment on above: Performed By: #### C BC #### [facility] [address] [address] [address] Bob Nelson CORRECTED WBC Normal 4.0-11.0 [facility] Comment on above: Performed By: #### C BC #### [facility] [address] [address] [address] Bob Nelson EOS # 0.00 103/ul Normal 0.00-0.70 [facility] Comment on above: Performed By: #### C BC #### [facility] [address] [address] [address] Bob Nelson EOS% 0.0 % Critically low 0.9-7.0 [facility] Comment on above: Performed By: #### C BC #### [facility] [address] [address] [address] Bob Nelson HCT 41.3 % Critically low 42.0-54.0 [facility] Comment on above: Performed By: #### C BC #### [facility] [address] [address] [address] Bob Nelson HGB 14.4 g/dl Normal 14.0-18.0 [facility] Comment on above: Performed By: #### C BC #### [facility] [address] [address] [address] Bob Nelson LYMPHM # 0.85 103/ul Critically low 1.20-3.80 [facility] Comment on above: Performed By: #### C BC #### [facility] [address] [address] [address] Bob Nelson LYMPHM% 8.0 % Critically low 20.5-60.0 [facility] Comment on above: Performed By: #### C BC #### [facility] [address] [address] [address] Bob Nelson MCH 28.6 pg Normal 25.9-34.0 [facility] Comment on above: Performed By: #### C BC #### [facility] [address] [place] [address] Dr. Bob Nelson MCHC 34.9 g/dl Normal 29.9-35.2 [facility] Comment on above: Performed By: #### C BC #### [facility] [address] [place] [address] Dr. Bob Nelson MCV 82.1 fL Normal 80.0-94.0 [facility] Comment on above: Performed By: #### C BC #### [facility] [address] [place] [address] Dr. Bob Nelson METAMYELOCYTE # Normal [facility] Comment on above: Performed By: #### C BC #### [facility] [address] [place] [address] Dr. Bob Nelson METAMYELOCYTE % Normal [facility] Comment on above: Performed By: #### C BC #### [facility] [address] [place] [address] Dr. Bob Nelson MONOM# 0.64 103/ul Normal 0.30-0.80 [facility] Comment on above: Performed By: #### C BC #### [facility] [address] [place] [address] Dr. Bob Nelson MONOM% 6.0 % Normal 1.7-12.0 [facility] Comment on above: Performed By: #### C BC #### [facility] [address] [place] [address] Dr. Bob Nelson MPV 9.4 fL Critically low 9.5-13.5 [facility] Comment on above: Performed By: #### C BC #### [facility] [address] [place] [address] Dr. Bob Nelson MYELOCYTE # Normal [facility] Comment on above: Performed By: #### C BC #### [facility] [address] [place] [address] Dr. Bob Nelson MYELOCYTE % Normal [facility] Comment on above: Performed By: #### C BC #### [facility] [address] [place] [address] Dr. Bob Nelson NRBC Normal [facility] Comment on above: Performed By: #### C BC #### [facility] [address] [place] [address] Dr. Bob Nelson PLT 182 103/ul Normal 150-450 [facility] Comment on above: Performed By: #### C BC #### [facility] [address] [address] [address] Bob Nelson RBC 5.03 106/ul Normal 4.70-6.10 [facility] Comment on above: Performed By: #### C BC #### [facility] [address] [place] [address] Dr. Bob Nelson RDW 12.9 % Normal 11.0-15.0 [facility] Comment on above: Performed By: #### C BC #### [facility] [address] [place] [address] Dr. Bob Nleson SEG # 9.12 103/ul Critically high 1.40-6.50 [facility] Comment on above: Performed By: #### C BC #### [facility] [address] [place] [address] Dr. Bob Nelson SEG % 86.0 % Critically high 43.0-75.0 [facility] Comment on above: Performed By: #### C BC #### [facility] [address] [place] [address] Dr. Bob Nelson WBC 10.6 103/ul Normal 4.0-11.0 [facility] Comment on above: Performed By: #### C BC #### [facility] [address] [place] [address] Dr. Bob Nelson ER URINE PROFILEon 2 Bilirubin Ql (U) Negative Normal NEGATIVE [facility] Comment on above: Performed By: #### B MP #### [facility] [address] [place] [address] Dr. Bob Nelson Clarity (U) CLEAR Normal CLEAR [facility] Comment on above: Performed By: #### B MP #### [facility] [address] [place] [address] Dr. Bob Nelson Color (U) DK. YELLOW Normal YELLOW [facility] Comment on above: Performed By: #### B MP #### [facility] [address] [place] [address] Dr. Bob VANEGAS A micrscopic examination will be performed if indicated. Normal [facility] Comment on above: Performed By: #### B MP #### [facility] [address] [place] [address] Dr. Bob Nelson Glucose Ql (U) Negative Normal NEGATIVE [facility] Comment on above: Performed By: #### B MP #### [facility] [address] [place] [address] Dr. Bob Nelson Hemoglobin Ql (U) Negative Normal NEGATIVE [facility] Comment on above: Performed By: #### B MP #### [facility] [address] [place] [address] Dr. Bob Nelson Ketones Ql (U) Negative Normal NEGATIVE [facility] Comment on above: Performed By: #### B MP #### [facility] [address] [place] [address] Dr. Bob Nelson LEUKOCYTES Negative Normal NEGATIVE [facility] Comment on above: Performed By: #### B MP #### [facility] [address] [place] [address] Dr. Bob Nelson Nitrite Ql (U) Negative Normal NEGATIVE [facility] Comment on above: Performed By: #### B MP #### [facility] [address] [place] [address] Dr. Bob Nelson pH (U) 6.5 [pH] Normal 5-9 [facility] Comment on above: Performed By: #### B MP #### [facility] [address] [place] [address] Dr. Bob Nelson Protein (U) [Mass/Vol] 30 mg/dL Abnormal NEGAT TOMMY/ TRACE [facility] Comment on above: Performed By: #### B MP #### [facility] [address] [place] [address] Dr. Bob Nelson SPEC GRAVITY 1.025 Normal 1.005-<=1.0 25 [facility] Comment on above: Performed By: #### B MP #### [facility] [address] [place] [address] Dr. Bob Nelson UR MICRO IND INDICATED Normal [facility] Comment on above: Performed By: #### B MP #### [facility] [address] [place] [address] Dr. Bob Nelson Urobilinogen Qn (U) 0.2 {Lance'U}/dL Normal 0.2 - 1. 0 [facility] Comment on above: Performed By: #### B MP #### [facility] [address] [place] [address] Dr. Bob Nelson PROF CHEM 8 (BAS METB)on Anion gap [Moles/Vol] 7.2 mmol/L Normal [facility] Comment on above: Performed By: #### B MP #### [facility] [address] [place] [address] Dr. Bob Nelson Calcium [Mass/Vol] 9.0 mg/dL Normal 8.5-10.1 [facility] Comment on above: Performed By: #### B MP #### [facility] [address] [place] [address] Dr. Bob Nelson Chloride [Moles/Vol] 98 mmol/L Normal 98-107 [facility] Comment on above: Performed By: #### B MP #### [facility] [address] [place] [address] Dr. Bob Nelson CO2 [Moles/Vol] 30.9 mmol/L Normal 21.0-32.0 [facility] Comment on above: Performed By: #### B MP #### [facility] [address] [place] [address] Dr. Bob Nelson Creatinine [Mass/Vol] 0.96 mg/dL Normal 0.70-1.30 [facility] Comment on above: Performed By: #### B MP #### [facility] [address] [place] [address] Dr. Bob Nelson EGFR-AF KYRGYZ >60 Normal >=60 [facility] Comment on above: Performed By: #### B MP #### [facility] [address] [address] [address] Bob Nelson EGFR-NON AF KYRGYZ >60 Normal >=60 [facility] Comment on above: Performed By: #### B MP #### [facility] [address] [address] [address] Bob Nelson Glucose [Mass/Vol] 132 mg/dL Critically high 74-106 [facility] Comment on above: Performed By: #### B MP #### [facility] [address] [address] [address] Bob Nelson Potassium [Moles/Vol] 4.1 mmol/L Normal 3.5-5.1 [facility] Comment on above: Performed By: #### B MP #### [facility] [address] [address] [address] Bob Nelson Sodium [Moles/Vol] 132 mmol/L Critically low 136-145 [facility] Comment on above: Performed By: #### B MP #### [facility] [address] [address] [address] Bob Nelson Urea nitrogen [Mass/Vol] 13.0 mg/dL Normal 7.0-18.0 [facility] Comment on above: Performed By: #### B MP #### [facility] [address] [address] [address] Bob Nelson Urea nitrogen/Creatinine [Mass ratio] 13.5 mg/mg Normal [facility] Comment on above: Performed By: #### B MP #### [facility] [address] [address] [address] Bob Nelson URINE MICROSCOPIC ONLYon BACTERIA NONE SEEN Normal NONE SEEN [facility] Comment on above: Performed By: #### B MP #### [facility] [address] [id number] Bob Nelson Bacteria identified Cx Nom (U) NOT INDICATED Normal [facility] Comment on above: Performed By: #### B MP #### [facility] [address] [place] [address] Dr. Bob Nelson CAST SEEN Abnormal NONE SEEN [facility] Comment on above: Performed By: #### B MP #### [facility] [address] [place] [address] Dr. Bob Nelson Crystals LM Nom (Urine sed) NONE SEEN Normal NONE SEEN [facility] Comment on above: Performed By: #### B MP #### [facility] [address] [place] [address] Dr. Bob Nelson Epithelial cells LM Ql (Urine sed) NONE SEEN Normal NONE SEEN /RARE [facility] Comment on above: Performed By: #### B MP #### [facility] [address] [place] [address] Dr. Bob Nelson MUCOUS NONE SEEN Normal NONE SEEN [facility] Comment on above: Performed By: #### B MP #### [facility] [address] [place] [address] Dr. Bob Nelson RBC NONE SEEN Abnormal 0-2 [facility] Comment on above: Performed By: #### B MP #### [facility] [address] [place] [address] Dr. Bob Nelson WBC NONE SEEN Normal NONE SEEN [facility] Comment on above: Performed By: #### B MP #### [facility] [address] [place] [address] Dr. Bob Nelson XR CHEST 1 Von [...] by: TRINITY TRINH Date: 2022-06-11 09:17 Normal [facility] LAMOTRIGINEon 05-22-2022 Lamotrigine, Serum 5.5 ug/mL Normal 2.0-20.0 [facility] Comment on above: Result Comment: Dete ction Limit = 1.0 Performed By: #### L AMOT #### [facility] [address] [place] [address] Dr. Bob Nelson CBC AUTO DIFFon 04-24-2022 BASO # 0.0 103/ul Normal 0.0-0.1 [facility] Comment on above: Performed By: #### C BC #### [facility] [address] [place] [address] Dr. Bob Nelson Basophils/100 WBC (Bld) 0.5 % Normal 0.2-2.0 [facility] Comment on above: Performed By: #### C BC #### [facility] [address] [place] [address] Dr. Bob Nelson EO # 0.1 103/ul Normal 0.0-0.7 [facility] Comment on above: Performed By: #### C BC #### [facility] [address] [place] [address] Dr. Bob Nelson Eosinophils/100 WBC (Bld) 1.8 % Normal 0.9-7.0 [facility] Comment on above: Performed By: #### C BC #### [facility] [address] [place] [address] Dr. Bob Nelson Erythrocyte distribution width (RBC) [Ratio] 12.6 % Normal 11.0-15.0 [facility] Comment on above: Performed By: #### C BC #### [facility] [address] [place] [address] Dr. Bob Nelson Hematocrit (Bld) [Volume fraction] 48.4 % Normal 42.0-54.0 [facility] Comment on above: Performed By: #### C BC #### [facility] [address] [place] [address] Dr. Bob Nelson Hemoglobin (Bld) [Mass/Vol] 17.2 g/dL Normal 14.0-18.0 [facility] Comment on above: Performed By: #### C BC #### [facility] [address] [place] [address] Dr. Bob Nelson IG # 0.02 10e3/ul Normal 0.00-0.03 [facility] Comment on above: Performed By: #### C BC #### [facility] [address] [place] [address] Dr. Bob Nelson IG % 0.3 % Normal 0.0-0.5 [facility] Comment on above: Performed By: #### C BC #### [facility] [address] [place] [address] Dr. Bob Nelson LYMPH # 2.6 103/ul Normal 1.2-3.8 [facility] Comment on above: Performed By: #### C BC #### [facility] [address] [place] [address] Dr. Bob Nelson Lymphocytes/100 WBC (Bld) 39.4 % Normal 20.5-60.0 [facility] Comment on above: Performed By: #### C BC #### [facility] [address] [place] [address] Dr. Bob Nelson MANUAL DIFF REQ NO Normal [facility] Comment on above: Performed By: #### C BC #### [facility] [address] [place] [address] Dr. Bob Nelson MCH (RBC) [Entitic mass] 29.0 pg Normal 25.9-34.0 [facility] Comment on above: Performed By: #### C BC #### [facility] [address] [place] [address] Dr. Bob Nelson MCHC (RBC) [Mass/Vol] 35.5 g/dL Critically high 29.9-35.2 [facility] Comment on above: Performed By: #### C BC #### [facility] [address] [place] [address] Dr. Bob Nelson MCV (RBC) [Entitic vol] 81.6 fL Normal 80.0-94.0 [facility] Comment on above: Performed By: #### C BC #### [facility] [address] [place] [address] Dr. Bob Nelson MONO # 0.5 103/ul Normal 0.3-0.8 [facility] Comment on above: Performed By: #### C BC #### [facility] [address] [place] [address] Dr. Bob Nelson Monocytes/100 WBC (Bld) 8.2 % Normal 1.7-12.0 [facility] Comment on above: Performed By: #### C BC #### [facility] [address] [place] [address] Dr. Bob Nelson NEUT # 3.3 103/ul Normal 1.4-6.5 [facility] Comment on above: Performed By: #### C BC #### [facility] [address] [place] [address] Dr. Bbo Nelson Neutrophils/100 WBC (Bld) 49.8 % Normal 43.0-75.0 [facility] Comment on above: Performed By: #### C BC #### [facility] [address] [place] [address] Dr. Bob Nelson Platelet mean volume (Bld) [Entitic vol] 9.5 fL Normal 9.5-13.5 [facility] Comment on above: Performed By: #### C BC #### [facility] [address] [place] [address] Dr. Bob Nelson PLT 225 103/ul Normal 150-450 [facility] Comment on above: Performed By: #### C BC #### [facility] [address] [place] [address] Dr. Bob Nelson RBC 5.93 106/ul Normal 4.70-6.10 [facility] Comment on above: Performed By: #### C BC #### [facility] [address] [place] [address] Dr. Bob Nelson WBC 6.6 103/ul Normal 4.0-11.0 [facility] Comment on above: Performed By: #### C BC #### [facility] [address] [place] [address] Dr. Bob Nelson DRUG SCREEN RAPID (URINE)on 04-24-2022 AMP Negative Normal NEGATIVE [facility] Comment on above: Performed By: #### B MP #### [facility] [address] [address] [address] Bob Nelson BAR Negative Normal NEGATIVE [facility] Comment on above: Performed By: #### B MP #### [facility] [address] [place] [address] Dr. Bob Nelson BUP Negative Normal NEGATIVE [facility] Comment on above: Performed By: #### B MP #### [facility] [address] [address] [address] Bob Nelson BZO Negative Normal NEGATIVE [facility] Comment on above: Performed By: #### B MP #### [facility] [address] [address] [address] Bob Nelson BETHANIE Negative Normal NEGATIVE [facility] Comment on above: Performed By: #### B MP #### [facility] [address] [place] [address] Dr. Bob Nelson CUT-OFFS SEE BELOW Normal [facility] Comment on above: Result [...] ng/mL Performed By: #### B MP #### [facility] [address] [place] [address] Dr. Bob Nelson DRUG CUT HEADER DRUG CLASS TEST SYSTEM CUT-OFF CONCENTRATIONS ARE FOLLOWS: Normal [facility] Comment on above: Performed By: #### B MP #### [facility] [address] [place] [address] Dr. Bob Nelson mAMP Negative Normal NEGATIVE [facility] Comment on above: Performed By: #### B MP #### [facility] [address] [place] [address] Dr. Bob Nelson MTD Negative Normal NEGATIVE [facility] Comment on above: Performed By: #### B MP #### [facility] [address] [place] [address] Dr. Bob Nelson OPI Negative Normal NEGATIVE [facility] Comment on above: Performed By: #### B MP #### [facility] [address] [place] [address] Dr. Bob Nelson OXY Negative Normal NEGATIVE [facility] Comment on above: Performed By: #### B MP #### [facility] [address] [place] [address] Dr. Bob Nelson PCP Negative Normal NEGATIVE [facility] Comment on above: Performed By: #### B MP #### [facility] [address] [place] [address] Dr. Bob Nelson PPX Negative Normal NEGATIVE [facility] Comment on above: Performed By: #### B MP #### [facility] [address] [place] [address] Dr. Bob Nelson TCA Negative Normal NEGATIVE [facility] Comment on above: Performed By: #### B MP #### [facility] [address] [place] [address] Dr. Bob Nelson THC Negative Normal NEGATIVE [facility] Comment on above: Performed By: #### B MP #### [facility] [address] [place] [address] Dr. Bob Nelson ER URINE PROFILEon 2 Bilirubin Ql (U) Negative Normal NEGATIVE [facility] Comment on above: Performed By: #### C MP #### [facility] [address] [place] [address] Dr. Bob Nelson Clarity (U) CLEAR Normal CLEAR [facility] Comment on above: Performed By: #### C MP #### [facility] [address] [place] [address] Dr. Bob Nelson Color (U) YELLOW Normal YELLOW [facility] Comment on above: Performed By: #### C MP #### [facility] [address] [place] [address] Dr. Bob VANEGAS A micrscopic examination will be performed if indicated. Normal [facility] Comment on above: Performed By: #### C MP #### [facility] [address] [place] [address] Dr. Bob Nelson Glucose Ql (U) Negative Normal NEGATIVE [facility] Comment on above: Performed By: #### C MP #### [facility] [address] [place] [address] Dr. Bob Nelson Hemoglobin Ql (U) Negative Normal NEGATIVE [facility] Comment on above: Performed By: #### C MP #### [facility] [address] [place] [address] Dr. Bob Nelson Ketones Ql (U) Negative Normal NEGATIVE [facility] Comment on above: Performed By: #### C MP #### [facility] [address] [place] [address] Dr. Bob Nelson LEUKOCYTES Negative Normal NEGATIVE [facility] Comment on above: Performed By: #### C MP #### [facility] [address] [place] [address] Dr. Bob Nelson Nitrite Ql (U) Negative Normal NEGATIVE [facility] Comment on above: Performed By: #### C MP #### [facility] [address] [place] [address] Dr. Bob Nelson pH (U) 5.5 [pH] Normal 5-9 [facility] Comment on above: Performed By: #### C MP #### [facility] [address] [place] [address] Dr. Bob Nelson Protein (U) [Mass/Vol] 100 mg/dL Abnormal NEGAT TOMMY/ TRACE [facility] Comment on above: Performed By: #### C MP #### [facility] [address] [place] [address] Dr. Bob Nelson SPEC GRAVITY >=1.030 Abnormal 1.005-<=1.0 25 [facility] Comment on above: Performed By: #### C MP #### [facility] [address] [place] [address] Dr. Bob Nelson UR MICRO IND INDICATED Normal [facility] Comment on above: Performed By: #### C MP #### [facility] [address] [place] [address] Dr. Bob Nelson Urobilinogen Qn (U) 0.2 {Lance'U}/dL Normal 0.2 - 1. 0 [facility] Comment on above: Performed By: #### C MP #### [facility] [address] [place] [address] Dr. Bob Nelson PROF 14(COMP METB)on 022 Albumin [Mass/Vol] 4.3 g/dL Normal 3.4-5.0 [facility] Comment on above: Performed By: #### C MP #### [facility] [address] [place] [address] Dr. Bob Nelson Albumin/Globulin [Mass ratio] 1.2 {ratio} Normal [facility] Comment on above: Performed By: #### C MP #### [facility] [address] [place] [address] Dr. Bob Nelson ALP [Catalytic activity/Vol] 104 U/L Normal 46-116 [facility] Comment on above: Performed By: #### C MP #### [facility] [address] [place] [address] Dr. Bob Nelson ALT [Catalytic activity/Vol] 64 U/L Critically high 16-63 [facility] Comment on above: Performed By: #### C MP #### [facility] [address] [place] [address] Dr. Bob Nelson Anion gap [Moles/Vol] 19.9 mmol/L Normal [facility] Comment on above: Performed By: #### C MP #### [facility] [address] [place] [address] Dr. Bob Nelson AST [Catalytic activity/Vol] 26 U/L Normal 15-37 [facility] Comment on above: Performed By: #### C MP #### [facility] [address] [place] [address] Dr. Bob Nelson Bilirubin [Mass/Vol] 0.3 mg/dL Normal 0.2-1.0 [facility] Comment on above: Performed By: #### C MP #### [facility] [address] [place] [address] Dr. Bob Nelson Calcium [Mass/Vol] 9.4 mg/dL Normal 8.5-10.1 [facility] Comment on above: Performed By: #### C MP #### [facility] [address] [address] [address] Bob Nelson Chloride [Moles/Vol] 101 mmol/L Normal 98-107 [facility] Comment on above: Performed By: #### C MP #### [facility] [address] [place] [address] Dr. Bob Nelson CO2 [Moles/Vol] 20.8 mmol/L Critically low 21.0-32.0 [facility] Comment on above: Performed By: #### C MP #### [facility] [address] [place] [address] Dr. Bob Nelson Creatinine [Mass/Vol] 1.16 mg/dL Normal 0.70-1.30 [facility] Comment on above: Performed By: #### C MP #### [facility] [address] [place] [address] Dr. Bob Nelson EGFR-AF KYRGYZ >60 Normal >=60 [facility] Comment on above: Performed By: #### C MP #### [facility] [address] [place] [address] Dr. Bob Nelson EGFR-NON AF KYRGYZ >60 Normal >=60 [facility] Comment on above: Performed By: #### C MP #### [facility] Laboratory [address] [place] [address] Dr. Bob Nelson Globulin (S) [Mass/Vol] 3.6 g/dL Normal [facility] Comment on above: Performed By: #### C MP #### [facility] [address] [place] [address] Dr. Bob Nelson Glucose [Mass/Vol] 152 mg/dL Critically high 74-106 [facility] Comment on above: Performed By: #### C MP #### [facility] [address] [address] [address] Bob Nelson Potassium [Moles/Vol] 3.7 mmol/L Normal 3.5-5.1 [facility] Comment on above: Performed By: #### C MP #### [facility] [address] [address] [address] Bob Nelson Protein [Mass/Vol] 7.9 g/dL Normal 6.4-8.2 [facility] Comment on above: Performed By: #### C MP #### [facility] [address] [address] [address] Bob Nelson Sodium [Moles/Vol] 138 mmol/L Normal 136-145 [facility] Comment on above: Performed By: #### C MP #### [facility] [address] [address] [address] Bob Nelson Urea nitrogen [Mass/Vol] 12.0 mg/dL Normal 7.0-18.0 [facility] Comment on above: Performed By: #### C MP #### [facility] [address] [address] [address] Bob Nelson Urea nitrogen/Creatinine [Mass ratio] 10.3 mg/mg Normal [facility] Comment on above: Performed By: #### C MP #### [facility] [address] [address] [address] Bob Nelson TSHon 04-24-2022 TSH 3.982 uIU/mL Critically high 0.358-3.740 [facility] Comment on above: Performed By: #### C MP #### [facility] [address] [address] [address] Bob Nelson URINE MICROSCOPIC ONLYon BACTERIA NONE SEEN Normal NONE SEEN [facility] Comment on above: Performed By: #### C MP #### [facility] [address] [address] [address] Bob Nelson Bacteria identified Cx Nom (U) NOT INDICATED Normal [facility] Comment on above: Performed By: #### C MP #### [facility] [address] [address] [address] Bob Nelson CAST SEEN Abnormal NONE SEEN [facility] Comment on above: Performed By: #### C MP #### [facility] [address] [address] [address] Bob Nelson Crystals LM Nom (Urine sed) NONE SEEN Normal NONE SEEN [facility] Comment on above: Performed By: #### C MP #### [facility] [address] [address] [address] Bob Nelson Epithelial cells LM Ql (Urine sed) RARE Normal NONE SEEN /RARE [facility] Comment on above: Performed By: #### C MP #### [facility] [address] [place] [address] Dr. Bob Nelson HYALINE CAST RARE Normal [facility] Comment on above: Performed By: #### C MP #### [facility] [address] [place] [address] Dr. Bob Nelson MUCOUS NONE SEEN Normal NONE SEEN [facility] Comment on above: Performed By: #### C MP #### [facility] [address] [place] [address] Dr. Bob Nelson RBC NONE SEEN Abnormal 0-2 [facility] Comment on above: Performed By: #### C MP #### [facility] [address] [place] [address] Dr. Bob Nelson WBC NONE SEEN Normal NONE SEEN [facility] Comment on above: Performed By: #### C MP #### [facility] [address] [place] [address] Dr. Bob Nelson No Panel InformationOrdered By: Derek Burks on 04-12-2022 Semen Analysis Comment . [facility] Comment on above: NO SPERM SEEN CONFIR MED BY SECOND TECH/@KWJ&STEVAN Semen WBC Concentration <1.0 M/mL <0.9 [facility] Sperm % Non-Motile [facility] Comment on above: Test not performed Sperm Motility Total [facility] Comment on above: Test not performed Qualitative semen viscosityO rdered By: Derek Burks on 04-12-2022 Viscosity Ql (Jeanie) Normal Normal [facility] Semen Analysis, Fertilityon 04-12-2022 Immotile Sperm Not performed Normal [facility] Comment on above: Order Comment: Metho d of Collection:: Masturbation Has the patient had a vasectomy?: N Type of Specimen Container:: Sterile Container Abstinence Period:: 48 HRS Kept at body temperature?: Y Any Collection or Transport Problems?: NO Performed By: #### S EMCOMP #### [facility] [address] Non-Progression Sperm Motili Not performed [facility] Comment on above: Order Comment: Metho d of Collection:: Masturbation Has the patient had a vasectomy?: N Type of Specimen Container:: Sterile Container Abstinence Period:: 48 HRS Kept at body temperature?: Y Any Collection or Transport Problems?: NO Performed By: #### S EMCOMP #### [facility] [address] [place] [address] Normal Sperm Morphology Not performed Normal >=4.0 [facility] Comment on above: Order Comment: Metho d of Collection:: Masturbation Has the patient had a vasectomy?: N Type of Specimen Container:: Sterile Container Abstinence Period:: 48 HRS Kept at body temperature?: Y Any Collection or Transport Problems?: NO Performed By: #### S EMCOMP #### [facility] [address] [place] [address] [place] Rapid Progression Sperm Motili Not performed [facility] Comment on above: Order Comment: Metho d of Collection:: Masturbation Has the patient had a vasectomy?: N Type of Specimen Container:: Sterile Container Abstinence Period:: 48 HRS Kept at body temperature?: Y Any Collection or Transport Problems?: NO Performed By: #### S EMCOMP #### [facility] [address] [place] [address] [place] Semen Comment . [facility] Comment on above: Order Comment: Metho d of Collection:: Masturbation Has the patient had a vasectomy?: N Type of Specimen Container:: Sterile Container Abstinence Period:: 48 HRS Kept at body temperature?: Y Any Collection or Transport Problems?: NO Result Comment: NO S PERM SEEN CONFIRMED BY SECOND TECH/@KWJ STEVAN PERFORMED BY: [place] [address] PATHOLOGIST ACRYLIC FABRICATOR CARLITA SEALS M.D. Performed By: #### S EMCOMP #### [address] Semen Liquefaction Normal Normal <=60 min [facility] Comment on above: Order Comment: Metho d of Collection:: Masturbation Has the patient had a vasectomy?: N Type of Specimen Container:: Sterile Container Abstinence Period:: 48 HRS Kept at body temperature?: Y Any Collection or Transport Problems?: NO Performed By: #### S EMCOMP #### [address] Semen Viscosity Normal Normal Normal [facility] Comment on above: Order Comment: Metho d of Collection:: Masturbation Has the patient had a vasectomy?: N Type of Specimen Container:: Sterile Container Abstinence Period:: 48 HRS Kept at body temperature?: Y Any Collection or Transport Problems?: NO Performed By: #### S EMCOMP #### [address] Semen Volume 1.0 mL Low >=1.5 [facility] Comment on above: Order Comment: Metho d of Collection:: Masturbation Has the patient had a vasectomy?: N Type of Specimen Container:: Sterile Container Abstinence Period:: 48 HRS Kept at body temperature?: Y Any Collection or Transport Problems?: NO Performed By: #### S EMCOMP #### [place] [address] [place] Sperm Concentration <2.0 Low >=15 [facility] Comment on above: Order Comment: Metho d of Collection:: Masturbation Has the patient had a vasectomy?: N Type of Specimen Container:: Sterile Container Abstinence Period:: 48 HRS Kept at body temperature?: Y Any Collection or Transport Problems?: NO Result Comment: Suboptimal specimen. Unable to perform morphology testing. Performed By: #### S EMCOMP #### [address] Total Motility (NV+FLOOR RENOVATOR) Not performed Normal >=40 (NV+FLOOR RENOVATOR) [facility] Comment on above: Order Comment: Metho d of Collection:: Masturbation Has the patient had a vasectomy?: N Type of Specimen Container:: Sterile Container Abstinence Period:: 48 HRS Kept at body temperature?: Y Any Collection or Transport Problems?: NO Performed By: #### S EMCOMP #### [address] WBC Concent, Semen <1.0 Normal <1.0 [facility] Comment on above: Order Comment: Metho d of Collection:: Masturbation Has the patient had a vasectomy?: N Type of Specimen Container:: Sterile Container Abstinence Period:: 48 HRS Kept at body temperature?: Y Any Collection or Transport Problems?: NO Performed By: #### S EMCOMP #### [address] Semen Analysis, FertilityOrd ered By: Derek Burks on 04-12-2022 Semen Appearance Normal Normal Normal [facility] Comment on above: Order Comment: Metho d of Collection:: Masturbation Has the patient had a vasectomy?: N Type of Specimen Container:: Sterile Container Abstinence Period:: 48 HRS Kept at body temperature?: Y Any Collection or Transport Problems?: NO Performed By: #### S EMCOMP #### [address] Semen pH 6.0 Low >=7.2 [facility] Comment on above: Order Comment: Metho d of Collection:: Masturbation Has the patient had a vasectomy?: N Type of Specimen Container:: Sterile Container Abstinence Period:: 48 HRS Kept at body temperature?: Y Any Collection or Transport Problems?: NO Performed By: #### S EMCOMP #### [address] Semen liquefaction time abhinav urementOrdered By: Derek Burks on 04-12-2022 Liquefaction (Jeanie) [Time] Normal <=60 min [facility] Semen volumeOrdered By: Celso Burks on 04-12-2022 Specimen volume (Jeanie) 1.0 mL >1.5 [facility] Sperm countOrdered By: Derek Burks on 04-12-2022 Spermatozoa (Jeanie) [#/Vol] <2.0 M/mL >15 [facility] Comment on above: Suboptimal specimen. Unable to perform morphology testing. Sperm morphologyOrdered By: Derek Burks on 04-12-2022 Spermatozoa Nom (Jeanie) TNP [facility] Comment on above: Test not performed LAMOTRIGINEon 04-09-2022 Lamotrigine, Serum 6.7 ug/mL Normal 2.0-20.0 [facility] Comment on above: Result Comment: Dete ction Limit = 1.0 Performed By: #### C BC #### [facility] [address] [place] [address] Dr. Bob Nelson LAMOTRIGINEon 03-02-2022 Lamotrigine, Serum 2.3 ug/mL Normal 2.0-20.0 [facility] Comment on above: Result Comment: Dete ction Limit = 1.0 Performed By: #### C MP #### [facility] [address] [place] [address] Dr. Bob Nelson OXCARBAZEPINEon 03-01-2022 Oxcarbazepine 5 ug/mL Critically low 10-35 [facility] Comment on above: Result Comment: This test was developed and its performance characteristics determined by [employer]. It has not been cleared or approved by the Food and Drug Administration. Detection Limit = 1 Performed By: #### B MP #### [facility] [address] [address] [address] Bob Nelson CBC AUTO DIFFon 02-28-2022 BASO # 0.0 103/ul Normal 0.0-0.1 [facility] Comment on above: Performed By: #### C MP #### [facility] [address] [place] [address] Dr. Bob Nelson Basophils/100 WBC (Bld) 0.5 % Normal 0.2-2.0 [facility] Comment on above: Performed By: #### C MP #### [facility] [address] [place] [address] Dr. Bob Nelson EO # 0.1 103/ul Normal 0.0-0.7 [facility] Comment on above: Performed By: #### C MP #### [facility] [address] [place] [address] Dr. Bob Nelson Eosinophils/100 WBC (Bld) 0.9 % Normal 0.9-7.0 [facility] Comment on above: Performed By: #### C MP #### [facility] [address] [place] [address] Dr. Bob Nelson Erythrocyte distribution width (RBC) [Ratio] 12.8 % Normal 11.0-15.0 [facility] Comment on above: Performed By: #### C MP #### [facility] [address] [place] [address] Dr. Bob Nelson Hematocrit (Bld) [Volume fraction] 43.8 % Normal 42.0-54.0 [facility] Comment on above: Performed By: #### C MP #### [facility] [address] [place] [address] Dr. Bob Nelson Hemoglobin (Bld) [Mass/Vol] 14.9 g/dL Normal 14.0-18.0 [facility] Comment on above: Performed By: #### C MP #### [facility] [address] [place] [address] Dr. Bob Nelson IG # 0.02 10e3/ul Normal 0.00-0.03 [facility] Comment on above: Performed By: #### C MP #### [facility] [address] [place] [address] Dr. Bob Nelson IG % 0.3 % Normal 0.0-0.5 [facility] Comment on above: Performed By: #### C MP #### [facility] [address] [place] [address] Dr. Bob Nelson LYMPH # 2.2 103/ul Normal 1.2-3.8 [facility] Comment on above: Performed By: #### C MP #### [facility] [address] [place] [address] Dr. Bob Nelson Lymphocytes/100 WBC (Bld) 34.0 % Normal 20.5-60.0 [facility] Comment on above: Performed By: #### C MP #### [facility] [address] [place] [address] Dr. Bob Nelson MANUAL DIFF REQ NO Normal [facility] Comment on above: Performed By: #### C MP #### [facility] [address] [place] [address] Dr. Bob Nelson MCH (RBC) [Entitic mass] 28.4 pg Normal 25.9-34.0 [facility] Comment on above: Performed By: #### C MP #### [facility] [address] [place] [address] Dr. Bob Nelson MCHC (RBC) [Mass/Vol] 34.0 g/dL Normal 29.9-35.2 [facility] Comment on above: Performed By: #### C MP #### [facility] [address] [place] [address] Dr. Bob Nelson MCV (RBC) [Entitic vol] 83.6 fL Normal 80.0-94.0 [facility] Comment on above: Performed By: #### C MP #### [facility] [address] [place] [address] Dr. Bob Nelson MONO # 0.5 103/ul Normal 0.3-0.8 [facility] Comment on above: Performed By: #### C MP #### [facility] [address] [place] [address] Dr. Bob Nelson Monocytes/100 WBC (Bld) 7.9 % Normal 1.7-12.0 [facility] Comment on above: Performed By: #### C MP #### [facility] [address] [place] [address] Dr. Bob Nelson NEUT # 3.6 103/ul Normal 1.4-6.5 [facility] Comment on above: Performed By: #### C MP #### [facility] [address] [address] [address] Bob Nelson Neutrophils/100 WBC (Bld) 56.4 % Normal 43.0-75.0 [facility] Comment on above: Performed By: #### C MP #### [facility] [address] [address] [address] Bob Nelson Platelet mean volume (Bld) [Entitic vol] 9.5 fL Normal 9.5-13.5 [facility] Comment on above: Performed By: #### C MP #### [facility] [address] [address] [address] Bob Nelson PLT 192 103/ul Normal 150-450 [facility] Comment on above: Performed By: #### C MP #### [facility] [address] [place] [address] Dr. Bob Nelson RBC 5.24 106/ul Normal 4.70-6.10 [facility] Comment on above: Performed By: #### C MP #### [facility] [address] [address] [address] Bob Nelson WBC 6.4 103/ul Normal 4.0-11.0 [facility] Comment on above: Performed By: #### C MP #### [facility] [address] [place] [address] Dr. Bob Nelson PROF 14(COMP METB)on 022 Albumin [Mass/Vol] 3.9 g/dL Normal 3.4-5.0 [facility] Comment on above: Performed By: #### C MP #### [facility] [address] [place] [address] Dr. Bob Nelson Albumin/Globulin [Mass ratio] 1.3 {ratio} Normal [facility] Comment on above: Performed By: #### C MP #### [facility] [address] [address] [address] Bob Nelson ALP [Catalytic activity/Vol] 68 U/L Normal 46-116 [facility] Comment on above: Performed By: #### C MP #### [facility] [address] [address] [address] Bob Nelson ALT [Catalytic activity/Vol] 170 U/L Critically high 16-63 [facility] Comment on above: Performed By: #### C MP #### [facility] [address] [address] [address] Bob Nelson Anion gap [Moles/Vol] 11.0 mmol/L Normal [facility] Comment on above: Performed By: #### C MP #### [facility] [address] [address] [address] Bob Nelson AST [Catalytic activity/Vol] 48 U/L Critically high 15-37 [facility] Comment on above: Performed By: #### C MP #### [facility] [address] [place] [address] Dr. Bob Nelson Bilirubin [Mass/Vol] 0.6 mg/dL Normal 0.2-1.0 [facility] Comment on above: Performed By: #### C MP #### [facility] [address] [place] [address] Dr. Bob Nelson Calcium [Mass/Vol] 9.1 mg/dL Normal 8.5-10.1 [facility] Comment on above: Performed By: #### C MP #### [facility] [address] [place] [address] Dr. Bob Nelson Chloride [Moles/Vol] 105 mmol/L Normal 98-107 [facility] Comment on above: Performed By: #### C MP #### [facility] [address] [address] [address] Bob Nelson CO2 [Moles/Vol] 28.9 mmol/L Normal 21.0-32.0 [facility] Comment on above: Performed By: #### C MP #### [facility] [address] [address] [address] Bob Nelson Creatinine [Mass/Vol] 0.96 mg/dL Normal 0.70-1.30 [facility] Comment on above: Performed By: #### C MP #### [facility] [address] [place] [address] Dr. Bob Nelson EGFR-AF KYRGYZ >60 Normal >=60 [facility] Comment on above: Performed By: #### C MP #### [facility] [address] [address] [address] Bob Nelson EGFR-NON AF KYRGYZ >60 Normal >=60 [facility] Comment on above: Performed By: #### C MP #### [facility] [address] [address] [address] Bob Nelson Globulin (S) [Mass/Vol] 3.0 g/dL Normal [facility] Comment on above: Performed By: #### C MP #### [facility] [address] [address] [address] Bob Nelson Glucose [Mass/Vol] 98 mg/dL Normal 74-106 [facility] Comment on above: Performed By: #### C MP #### [facility] [address] [address] [address] Bob Nelson Potassium [Moles/Vol] 3.9 mmol/L Normal 3.5-5.1 [facility] Comment on above: Performed By: #### C MP #### [facility] [address] [place] [address] Dr. Bob Nelson Protein [Mass/Vol] 6.9 g/dL Normal 6.4-8.2 [facility] Comment on above: Performed By: #### C MP #### [facility] [address] [address] [address] Bob Nelson Sodium [Moles/Vol] 141 mmol/L Normal 136-145 [facility] Comment on above: Performed By: #### C MP #### [facility] [address] [address] [address] Bob Nelson Urea nitrogen [Mass/Vol] 14.0 mg/dL Normal 7.0-18.0 [facility] Comment on above: Performed By: #### C MP #### [facility] [address] [address] [address] Bob Nelson Urea nitrogen/Creatinine [Mass ratio] 14.6 mg/mg Normal [facility] Comment on above: Performed By: #### C MP #### [facility] [address] [address] [address] Bob Nelson CBC AUTO DIFFon 02-27-2022 BASO # 0.0 103/ul Normal 0.0-0.1 [facility] Comment on above: Performed By: #### B MP #### [facility] [address] [place] [address] Dr. Bob Nelson Basophils/100 WBC (Bld) 0.5 % Normal 0.2-2.0 [facility] Comment on above: Performed By: #### B MP #### [facility] [address] [place] [address] Dr. Bob Nelson EO # 0.1 103/ul Normal 0.0-0.7 [facility] Comment on above: Performed By: #### B MP #### [facility] [address] [place] [address] Dr. Bob Nelson Eosinophils/100 WBC (Bld) 0.6 % Critically low 0.9-7. 0 [facility] Comment on above: Performed By: #### B MP #### [facility] [address] [place] [address] Dr. Bob Nelson Erythrocyte distribution width (RBC) [Ratio] 12.5 % Normal 11.0-15.0 [facility] Comment on above: Performed By: #### B MP #### [facility] [address] [place] [address] Dr. Bob Nelson Hematocrit (Bld) [Volume fraction] 46.1 % Normal 42.0-54.0 [facility] Comment on above: Performed By: #### B MP #### [facility] [address] [place] [address] Dr. Bob Nelson Hemoglobin (Bld) [Mass/Vol] 16.1 g/dL Normal 14.0-18.0 [facility] Comment on above: Performed By: #### B MP #### [facility] [address] [place] [address] Dr. Bob Nelson IG # 0.02 10e3/ul Normal 0.00-0.03 [facility] Comment on above: Performed By: #### B MP #### [facility] [address] [place] [address] Dr. Bob Nelson IG % 0.3 % Normal 0.0-0.5 [facility] Comment on above: Performed By: #### B MP #### [facility] [address] [address] [address] Bob Nelson LYMPH # 1.3 103/ul Normal 1.2-3.8 [facility] Comment on above: Performed By: #### B MP #### [facility] [address] [place] [address] Dr. Bob Nelson Lymphocytes/100 WBC (Bld) 16.2 % Critically low 20.5-6 0.0 [facility] Comment on above: Performed By: #### B MP #### [facility] [address] [place] [address] Dr. Bob Nelson MANUAL DIFF REQ NO Normal [facility] Comment on above: Performed By: #### B MP #### [facility] [address] [place] [address] Dr. Bob Nelson MCH (RBC) [Entitic mass] 28.6 pg Normal 25.9-34.0 [facility] Comment on above: Performed By: #### B MP #### [facility] [address] [place] [address] Dr. Bob Nelson MCHC (RBC) [Mass/Vol] 34.9 g/dL Normal 29.9-35.2 [facility] Comment on above: Performed By: #### B MP #### [facility] [address] [place] [address] Dr. Bob Nelson MCV (RBC) [Entitic vol] 81.9 fL Normal 80.0-94.0 [facility] Comment on above: Performed By: #### B MP #### [facility] [address] [place] [address] Dr. Bob Nelson MONO # 0.4 103/ul Normal 0.3-0.8 [facility] Comment on above: Performed By: #### B MP #### [facility] [address] [address] [address] Bob Nelson Monocytes/100 WBC (Bld) 5.0 % Normal 1.7-12.0 [facility] Comment on above: Performed By: #### B MP #### [facility] [address] [address] [address] Bob Nelson NEUT # 6.1 103/ul Normal 1.4-6.5 [facility] Comment on above: Performed By: #### B MP #### [facility] [address] [address] [address] Bob Nelson Neutrophils/100 WBC (Bld) 77.4 % Critically high 43.0- 75.0 [facility] Comment on above: Performed By: #### B MP #### [facility] [address] [place] [address] Dr. Bob Nelson Platelet mean volume (Bld) [Entitic vol] 9.5 fL Normal 9.5-13.5 [facility] Comment on above: Performed By: #### B MP #### [facility] [address] [address] [address] Bob Nelson PLT 203 103/ul Normal 150-450 [facility] Comment on above: Performed By: #### B MP #### [facility] [address] [place] [address] Dr. Bob Nelson RBC 5.63 106/ul Normal 4.70-6.10 [facility] Comment on above: Performed By: #### B MP #### [facility] [address] [place] [address] Dr. Bob Nelson WBC 7.9 103/ul Normal 4.0-11.0 [facility] Comment on above: Performed By: #### B MP #### [facility] [address] [place] [address] HEAD WO CONon [...] CHERI CONNER Date: 2022-02-27 15:43 Normal [facility] Covid-19 PCR ([facility])on SARS-CoV-2 (COVID-19) RNA MAHESH+probe Ql (Unsp spec) Not detected Normal NOT DETECTED [facility] Comment on above: Result Comment: When [...] for this test is supported by the Combatant Diver Officer of Health and Human Service's declaration that [...] used). Performed By: #### C MP #### [facility] [address] [place] [id number] [address] Bob Nelson LACTATE/LACTIC ACIDon 2021 Lactate [Moles/Vol] 0.9 mmol/L Normal 0.4-1.9 [facility] Comment on above: Performed By: #### L ACT #### [facility] [address] [address] [address] Bob Nelson Lactate [Moles/Vol] 3.9 mmol/L Critically high 0.4-1.9 [facility] Comment on above: Performed By: #### B MP #### [facility] [address] [address] [address] Bob Nelson PROF CHEM 8 (BAS METB)on Anion gap [Moles/Vol] 16.1 mmol/L Normal [facility] Comment on above: Performed By: #### B MP #### [facility] [address] [address] [address] Bob Nelson Calcium [Mass/Vol] 8.9 mg/dL Normal 8.5-10.1 [facility] Comment on above: Performed By: #### B MP #### [facility] [address] [place] [address] Dr. Bob Nelson Chloride [Moles/Vol] 99 mmol/L Normal 98-107 [facility] Comment on above: Performed By: #### B MP #### [facility] [address] [address] [address] Bob Nelson CO2 [Moles/Vol] 24.0 mmol/L Normal 21.0-32.0 [facility] Comment on above: Performed By: #### B MP #### [facility] [address] [place] [address] Dr. Bob Nelson Creatinine [Mass/Vol] 1.13 mg/dL Normal 0.70-1.30 [facility] Comment on above: Performed By: #### B MP #### [facility] [address] [place] [address] Dr. Bob Nelson EGFR-AF KYRGYZ >60 Normal >=60 [facility] Comment on above: Performed By: #### B MP #### [facility] [address] [place] [address] Dr. Bob Nelson EGFR-NON AF KYRGYZ >60 Normal >=60 [facility] Comment on above: Performed By: #### B MP #### [facility] [address] [address] [address] Bob Nelson Glucose [Mass/Vol] 158 mg/dL Critically high 74-106 [facility] Comment on above: Performed By: #### B MP #### [facility] [address] [place] [address] Dr. Bob Nelson Potassium [Moles/Vol] 4.1 mmol/L Normal 3.5-5.1 [facility] Comment on above: Performed By: #### B MP #### [facility] [address] [place] [address] Dr. Bob Nelson Sodium [Moles/Vol] 135 mmol/L Critically low 136-145 [facility] Comment on above: Performed By: #### B MP #### [facility] [address] [place] [address] Dr. Bob Nelson Urea nitrogen [Mass/Vol] 15.0 mg/dL Normal 7.0-18.0 [facility] Comment on above: Performed By: #### B MP #### [facility] [address] [place] [address] Dr. Bob Nelson Urea nitrogen/Creatinine [Mass ratio] 13.3 mg/mg Normal [facility] Comment on above: Performed By: #### B MP #### [facility] [address] [place] [address] Dr. Bob Nelson UA (CLEAN/CATCH) [employer] CLERK/MICRO I F IND.on 02-27-2022 Bilirubin Ql (U) Negative Normal NEGATIVE [facility] Comment on above: Performed By: #### C MP #### [facility] [address] [place] [address] Dr. Bob Nelson Clarity (U) CLEAR Normal CLEAR [facility] Comment on above: Performed By: #### C MP #### [facility] [address] [place] [address] Dr. Bob Nelson Color (U) LT. YELLOW Normal YELLOW [facility] Comment on above: Performed By: #### C MP #### [facility] [address] [place] [address] Dr. Bbo Nelson Glucose Ql (U) Negative Normal NEGATIVE [facility] Comment on above: Performed By: #### C MP #### [facility] [address] [place] [address] Dr. Bob Nelson Hemoglobin Ql (U) TRACE-INTACT Abnormal NEGATIVE [facility] Comment on above: Performed By: #### C MP #### [facility] [address] [place] [address] Dr. Bob Nelson Ketones Ql (U) Negative Normal NEGATIVE [facility] Comment on above: Performed By: #### C MP #### [facility] [address] [place] [address] Dr. Bob Nelson LEUKOCYTES Negative Normal NEGATIVE [facility] Comment on above: Performed By: #### C MP #### [facility] [address] [place] [address] Dr. Bob Nelson Nitrite Ql (U) Negative Normal NEGATIVE [facility] Comment on above: Performed By: #### C MP #### [facility] [address] [place] [address] Dr. Bob Nelson pH (U) 5.5 [pH] Normal 5-9 [facility] Comment on above: Performed By: #### C MP #### [facility] [address] [place] [address] Dr. Bob Nelson SPEC GRAVITY 1.010 Normal 1.005-<=1.0 25 [facility] Comment on above: Performed By: #### C MP #### [facility] [address] [place] [address] Dr. Bob Nelson UA PROTEIN Negative Normal NEGATIVE/ TRACE [facility] Comment on above: Performed By: #### C MP #### [facility] [address] [place] [address] Dr. Bob Nelson UR MICRO IND INDICATED Normal [facility] Comment on above: Performed By: #### C MP #### [facility] [address] [place] [address] Dr. Bob Nelson Urobilinogen Qn (U) 0.2 {Lance'U}/dL Normal 0.2 - 1. 0 [facility] Comment on above: Performed By: #### C MP #### [facility] [address] [place] [address] Dr. Bob Nelson URINE MICROSCOPIC ONLYon BACTERIA NONE SEEN Normal NONE SEEN [facility] Comment on above: Performed By: #### C MP #### [facility] [address] [place] [address] Dr. Bob Nelson Bacteria identified Cx Nom (U) NOT INDICATED Normal [facility] Comment on above: Performed By: #### C MP #### [facility] [address] [place] [address] Dr. Bob Nelson CAST NONE SEEN Normal NONE SEEN [facility] Comment on above: Performed By: #### C MP #### [facility] [address] [place] [address] Dr. Bob Nelson Crystals LM Nom (Urine sed) NONE SEEN Normal NONE SEEN [facility] Comment on above: Performed By: #### C MP #### [facility] [address] [place] [address] Dr. Bob Nelson Epithelial cells LM Ql (Urine sed) RARE Normal NONE SEEN /RARE [facility] Comment on above: Performed By: #### C MP #### [facility] [address] [place] [address] Dr. Bob Nelson MUCOUS NONE SEEN Normal NONE SEEN [facility] Comment on above: Performed By: #### C MP #### [facility] [address] [place] [address] Dr. Bob Nelson RBC 0-2 Normal 0-2 [facility] Comment on above: Performed By: #### C MP #### [facility] [address] [place] [address] Dr. Bob Nelson WBC NONE SEEN Normal NONE SEEN [facility] Comment on above: Performed By: #### C MP #### [facility] [address] [place] [address] Dr. Bob Nelson XR CHEST 2 Von [...] CHERI CONNER Date: 2022-02-27 15:45 Normal [facility] CBC AUTO DIFFon 02-02-2022 BASO # 0.0 103/ul Normal 0.0-0.1 [facility] Comment on above: Performed By: #### C MP #### [facility] [address] [address] [address] Bob Nelson Basophils/100 WBC (Bld) 0.2 % Normal 0.2-2.0 [facility] Comment on above: Performed By: #### C MP #### [facility] [address] [address] [address] Bob Nelson EO # 0.1 103/ul Normal 0.0-0.7 [facility] Comment on above: Performed By: #### C MP #### [facility] [address] [address] [address] Bob Nelson Eosinophils/100 WBC (Bld) 0.7 % Critically low 0.9-7. 0 [facility] Comment on above: Performed By: #### C MP #### [facility] [address] [address] [address] Bob Nelson Erythrocyte distribution width (RBC) [Ratio] 12.4 % Normal 11.0-15.0 [facility] Comment on above: Performed By: #### C MP #### [facility] [address] [address] [address] Bob Nelson Hematocrit (Bld) [Volume fraction] 46.1 % Normal 42.0-54.0 [facility] Comment on above: Performed By: #### C MP #### [facility] [address] [address] [address] Bob Nelson Hemoglobin (Bld) [Mass/Vol] 16.0 g/dL Normal 14.0-18.0 [facility] Comment on above: Performed By: #### C MP #### [facility] [address] [address] [address] Bob Nelson IG # 0.03 10e3/ul Normal 0.00-0.03 [facility] Comment on above: Performed By: #### C MP #### [facility] [address] [address] [address] Bob Nelson IG % 0.3 % Normal 0.0-0.5 [facility] Comment on above: Performed By: #### C MP #### [facility] [address] [place] [address] Dr. Bob Nelson LYMPH # 1.5 103/ul Normal 1.2-3.8 [facility] Comment on above: Performed By: #### C MP #### [facility] [address] [place] [address] Dr. Bob Nelson Lymphocytes/100 WBC (Bld) 16.0 % Critically low 20.5-6 0.0 [facility] Comment on above: Performed By: #### C MP #### [facility] [address] [place] [address] Dr. Bob Nelson MANUAL DIFF REQ NO Normal [facility] Comment on above: Performed By: #### C MP #### [facility] [address] [place] [address] Dr. Bob Nelson MCH (RBC) [Entitic mass] 28.6 pg Normal 25.9-34.0 [facility] Comment on above: Performed By: #### C MP #### [facility] [address] [place] [address] Dr. Bob Nelson MCHC (RBC) [Mass/Vol] 34.7 g/dL Normal 29.9-35.2 [facility] Comment on above: Performed By: #### C MP #### [facility] [address] [place] [address] Dr. Bob Nelson MCV (RBC) [Entitic vol] 82.5 fL Normal 80.0-94.0 [facility] Comment on above: Performed By: #### C MP #### [facility] [address] [address] [address] Bob Nelson MONO # 0.6 103/ul Normal 0.3-0.8 [facility] Comment on above: Performed By: #### C MP #### [facility] [address] [address] [address] Bob Nelson Monocytes/100 WBC (Bld) 5.7 % Normal 1.7-12.0 [facility] Comment on above: Performed By: #### C MP #### [facility] [address] [address] [address] Bob Nelson NEUT # 7.4 103/ul Critically high 1.4-6.5 [facility] Comment on above: Performed By: #### C MP #### [facility] [address] [place] [address] Dr. Bob Nelson Neutrophils/100 WBC (Bld) 77.1 % Critically high 43.0- 75.0 [facility] Comment on above: Performed By: #### C MP #### [facility] [address] [place] [address] Dr. Bob Nelson Platelet mean volume (Bld) [Entitic vol] 9.3 fL Critically low 9.5-13.5 [facility] Comment on above: Performed By: #### C MP #### [facility] [address] [place] [address] Dr. Bob Nelson PLT 184 103/ul Normal 150-450 [facility] Comment on above: Performed By: #### C MP #### [facility] [address] [address] [address] Bob Nelson RBC 5.59 106/ul Normal 4.70-6.10 [facility] Comment on above: Performed By: #### C MP #### [facility] [address] [address] [address] Bob Nelson WBC 9.6 103/ul Normal 4.0-11.0 [facility] Comment on above: Performed By: #### C MP #### [facility] [address] [place] [address] Dr. Bob Nelson PROF 14(COMP METB)on 022 Albumin [Mass/Vol] 4.3 g/dL Normal 3.4-5.0 [facility] Comment on above: Performed By: #### C BC #### [facility] [address] [place] [address] Dr. Bob Nelson Albumin/Globulin [Mass ratio] 1.3 {ratio} Normal [facility] Comment on above: Performed By: #### C BC #### [facility] [address] [place] [address] Dr. Bob Nelson ALP [Catalytic activity/Vol] 86 U/L Normal 46-116 [facility] Comment on above: Performed By: #### C BC #### [facility] [address] [place] [address] Dr. Bob Nelson ALT [Catalytic activity/Vol] 87 U/L Critically high 16-63 [facility] Comment on above: Performed By: #### C BC #### [facility] [address] [place] [address] Dr. Bob Nelson Anion gap [Moles/Vol] 11.9 mmol/L Normal [facility] Comment on above: Performed By: #### C BC #### [facility] [address] [place] [address] Dr. Bob Nelson AST [Catalytic activity/Vol] 44 U/L Critically high 15-37 [facility] Comment on above: Performed By: #### C BC #### [facility] [address] [place] [address] Dr. Bob Nelson Bilirubin [Mass/Vol] 0.3 mg/dL Normal 0.2-1.0 [facility] Comment on above: Performed By: #### C BC #### [facility] [address] [place] [address] Dr. Bob Nelson Calcium [Mass/Vol] 9.3 mg/dL Normal 8.5-10.1 [facility] Comment on above: Performed By: #### C BC #### [facility] [address] [address] [address] Bob Nelson Chloride [Moles/Vol] 102 mmol/L Normal 98-107 [facility] Comment on above: Performed By: #### C BC #### [facility] [address] [place] [address] Dr. Bob Nelson CO2 [Moles/Vol] 27.8 mmol/L Normal 21.0-32.0 [facility] Comment on above: Performed By: #### C BC #### [facility] [address] [place] [address] Dr. Bob Nelson Creatinine [Mass/Vol] 1.16 mg/dL Normal 0.70-1.30 [facility] Comment on above: Performed By: #### C BC #### [facility] [address] [place] [address] Dr. Bob Nelson EGFR-AF KYRGYZ >60 Normal >=60 [facility] Comment on above: Performed By: #### C BC #### [facility] [address] [place] [address] Dr. Bob Nelson EGFR-NON AF KYRGYZ >60 Normal >=60 [facility] Comment on above: Performed By: #### C BC #### [facility] [address] [place] [address] Dr. Bob Nelson Globulin (S) [Mass/Vol] 3.3 g/dL Normal [facility] Comment on above: Performed By: #### C BC #### [facility] [address] [place] [address] Dr. Bob Nelson Glucose [Mass/Vol] 112 mg/dL Critically high 74-106 [facility] Comment on above: Performed By: #### C BC #### [facility] [address] [place] [address] Dr. Bob Nelson Potassium [Moles/Vol] 3.7 mmol/L Normal 3.5-5.1 [facility] Comment on above: Performed By: #### C BC #### [facility] [address] [place] [address] Dr. Bob Nelson Protein [Mass/Vol] 7.6 g/dL Normal 6.4-8.2 [facility] Comment on above: Performed By: #### C BC #### [facility] [address] [address] [address] Bob Nelson Sodium [Moles/Vol] 138 mmol/L Normal 136-145 [facility] Comment on above: Performed By: #### C BC #### [facility] [address] [id number] Bob Nelson Urea nitrogen [Mass/Vol] 11.0 mg/dL Normal 7.0-18.0 [facility] Comment on above: Performed By: #### C BC #### [facility] [address] [address] [address] Bob Nelson Urea nitrogen/Creatinine [Mass ratio] 9.5 mg/mg Normal [facility] Comment on above: Performed By: #### C BC #### [facility] [address] [address] [address] Bob Nelson Progress Noteson 02-02-2022 [employer] Authentication Interface Message Text EMERGENCY TRIAGE, TREAT AND TRANSPORT (ET3) DOCUMENTATION OF TELEHEALTH VISIT Date / Time: 02/02/2022599 Name: Corey Alonso : 1995 SSN: [id number] EMS Agency: [facility] [x] Verbal consent obtained [] [...] Completed by: Maritza Romo MD Normal [facility] [facility] CBC AUTO DIFFon 12-30-2021 BASO # 0.0 103/ul Normal 0.0-0.1 [facility] Comment on above: Performed By: #### C BC #### [facility] [address] [place], [place] [address] Dr. Bob Nelson Basophils/100 WBC (Bld) 0.6 % Normal 0.2-2.0 [facility] Comment on above: Performed By: #### C BC #### [facility] [address] [place] [address] Dr. Bob Nelson EO # 0.0 103/ul Normal 0.0-0.7 [facility] Comment on above: Performed By: #### C BC #### [facility] [address] [place] [address] Dr. Bob Nelson Eosinophils/100 WBC (Bld) 0.6 % Critically low 0.9-7. 0 [facility] Comment on above: Performed By: #### C BC #### [facility] [address] [place] [address] Dr. Bob Nelson Erythrocyte distribution width (RBC) [Ratio] 12.3 % Normal 11.0-15.0 [facility] Comment on above: Performed By: #### C BC #### [facility] [address] [place] [address] Dr. Bob Nelson Hematocrit (Bld) [Volume fraction] 48.5 % Normal 42.0-54.0 [facility] Comment on above: Performed By: #### C BC #### [facility] [address] [place] [address] Dr. Bob Nelson Hemoglobin (Bld) [Mass/Vol] 16.1 g/dL Normal 14.0-18.0 [facility] Comment on above: Performed By: #### C BC #### [facility] [address] [place] [address] Dr. Bob Nelson IG # 0.03 10e3/ul Normal 0.00-0.03 [facility] Comment on above: Performed By: #### C BC #### [facility] [address] [place] [address] Dr. Bob Nelson IG % 0.4 % Normal 0.0-0.5 [facility] Comment on above: Performed By: #### C BC #### [facility] [address] [place] [address] Dr. Bob Nelson LYMPH # 2.2 103/ul Normal 1.2-3.8 [facility] Comment on above: Performed By: #### C BC #### [facility] [address] [place] [address] Dr. Bob Nelson Lymphocytes/100 WBC (Bld) 30.6 % Normal 20.5-60.0 [facility] Comment on above: Performed By: #### C BC #### [facility] [address] [place] [address] Dr. Bob Nelson MANUAL DIFF REQ NO Normal [facility] Comment on above: Performed By: #### C BC #### [facility] [address] [place] [address] Dr. Bob Nelson MCH (RBC) [Entitic mass] 28.1 pg Normal 25.9-34.0 [facility] Comment on above: Performed By: #### C BC #### [facility] [address] [place] [address] Dr. Bob Nelson MCHC (RBC) [Mass/Vol] 33.2 g/dL Normal 29.9-35.2 [facility] Comment on above: Performed By: #### C BC #### [facility] [address] [place] [address] Dr. Bob Nelson MCV (RBC) [Entitic vol] 84.6 fL Normal 80.0-94.0 [facility] Comment on above: Performed By: #### C BC #### [facility] [address] [place] [address] Dr. Bob Nelson MONO # 0.4 103/ul Normal 0.3-0.8 [facility] Comment on above: Performed By: #### C BC #### [facility] [address] [place] [address] Dr. Bob Nelson Monocytes/100 WBC (Bld) 6.1 % Normal 1.7-12.0 [facility] Comment on above: Performed By: #### C BC #### [facility] [address] [place] [address] Dr. Bob Nelson NEUT # 4.4 103/ul Normal 1.4-6.5 [facility] Comment on above: Performed By: #### C BC #### [facility] [address] [place] [address] Dr. Bob Nelson Neutrophils/100 WBC (Bld) 61.7 % Normal 43.0-75.0 [facility] Comment on above: Performed By: #### C BC #### [facility] [address] [place] [address] Dr. Bob Nelson Platelet mean volume (Bld) [Entitic vol] 9.5 fL Normal 9.5-13.5 [facility] Comment on above: Performed By: #### C BC #### [facility] [address] [place] [address] Dr. Bob Nelson PLT 228 103/ul Normal 150-450 [facility] Comment on above: Performed By: #### C BC #### [facility] [address] [place] [address] Dr. Bob Nelson RBC 5.73 106/ul Normal 4.70-6.10 [facility] Comment on above: Performed By: #### C BC #### [facility] [address] [place] [address] Dr. Bob Nelson WBC 7.2 103/ul Normal 4.0-11.0 [facility] Comment on above: Performed By: #### C BC #### [facility] [address] [place] [address] CSPINE WO CONon [...] TRINITY KING Date: 2021-12-30 20:14 Normal [facility] CT HEAD WO CONon 12-30-2021 CT [...] by: ERNESTO GIRON Date: 2021-12-30 20:37 Normal [facility] PROF CHEM 8 (BAS METB)on Anion gap [Moles/Vol] 24.1 mmol/L Normal [facility] Comment on above: Performed By: #### B MP #### [facility] [address] [place] [address] Dr. Bob Nelson Calcium [Mass/Vol] 9.3 mg/dL Normal 8.5-10.1 [facility] Comment on above: Performed By: #### B MP #### [facility] [address] [address] [address] Bob Nelson Chloride [Moles/Vol] 101 mmol/L Normal 98-107 [facility] Comment on above: Performed By: #### B MP #### [facility] [address] [place] [address] Dr. Bob Nelson CO2 [Moles/Vol] 16.9 mmol/L Critically low 21.0-32.0 [facility] Comment on above: Performed By: #### B MP #### [facility] [address] [place] [address] Dr. Bob Nelson Creatinine [Mass/Vol] 1.13 mg/dL Normal 0.70-1.30 [facility] Comment on above: Performed By: #### B MP #### [facility] [address] [address] [address] Bob Nelson EGFR-AF KYRGYZ >60 Normal >=60 [facility] Comment on above: Performed By: #### B MP #### [facility] [address] [address] [address] Bob Nelson EGFR-NON AF KYRGYZ >60 Normal >=60 [facility] Comment on above: Performed By: #### B MP #### [facility] [address] [address] [address] Bob Nelson Glucose [Mass/Vol] 107 mg/dL Critically high 74-106 [facility] Comment on above: Performed By: #### B MP #### [facility] [address] [address] [address] Bob Nelson Potassium [Moles/Vol] 4.0 mmol/L Normal 3.5-5.1 [facility] Comment on above: Performed By: #### B MP #### [facility] [address] [address] [address] Bob Nelson Sodium [Moles/Vol] 138 mmol/L Normal 136-145 [facility] Comment on above: Performed By: #### B MP #### [facility] [address] [address] [address] Bob Nelson Urea nitrogen [Mass/Vol] 14.0 mg/dL Normal 7.0-18.0 [facility] Comment on above: Performed By: #### B MP #### [facility] [address] [address] [address] Bob Nelson Urea nitrogen/Creatinine [Mass ratio] 12.4 mg/mg Normal [facility] Comment on above: Performed By: #### B MP #### [facility] [address] [address] [address] Bob Nelson ELECTROENCEPHALOGRAMon 11-30 [place] [address] ELECTROENCEPHALOGRAM REPORT PATIENT NAME: COREY ALONSO : 1995 MED REC NO: [id number] ROOM: ACCOUNT NO: [id number] ADMIT DATE: 11/28/2021 PROVIDER: Brian Granado DATE [...] or epileptiform activity. BRIAN GRANADO FLORECITA/[email or web address] Doc#: [id number] CC: Emeli Chi Cnp Normal [facility] [place] [facility] MRI BRAIN WO CONTRASTon 05-0 MRI BRAIN WO CONTRAST EXAMINATION: MRI OF THE BRAIN WITHOUT CONTRAST 11/28/2021 9:44 am TECHNIQUE: Multiplanar multisequence MRI of the brain was performed without the administration of intravenous contrast. COMPARISON: None HISTORY: ORDERING SYSTEM PROVIDED HISTORY: Partial symptomatic epilepsy with complex partial seizures, intractable, without status epilepticus ([facility]) TECHNOLOGIST PROVIDED HISTORY: epilepsy What is the [...] Anjali Lozoya MD 11/28/21 Final result Normal [facility] ANES POSTPROC EVALon 022 ANES POSTPROC EVAL HNO ID: [id number] Author: Tung Macias MD Service: Anesthesiology Author Type: Anesthesiologist Type: Anesthesia Postprocedure Evaluation Filed: 09/01/2021 6:31 AM Note Text: POST ANESTHESIA EVALUATION NOTE : 1995 Procedure Summary Date: 08/31/21 Room / Location: [address] Anesthesia Start: 1303 Anesthesia Stop: 1358 Procedure: CYSTOURETHROSCOPY W/ INCISION OF EJACULATORY DUCTS (Right Urethra) 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 for fertility testing (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]) (Encounter for fertility testing [Z31.41]) Surgeons: Domi Scruggs MD Responsible Provider: Tung Macias MD Anesthesia [...] September 01, 2021 TIME: 6:31 AM CSN: [id number] [facility] ANES PRE-OPon 08-31-2021 ANES PRE-OP HNO ID: [id number] Author: Tung Macias MD Service: Anesthesiology Author Type: Anesthesiologist Type: Anesthesia Preprocedure Evaluation Filed: 08/31/2021 12:08 PM Note Text: ANESTHESIOLOGY DAY OF SURGERY NOTE : 1995 Procedure Information Date/Time: 08/31/21 1215 Procedure: CYSTOURETHROSCOPY W/ INCISION OF EJACULATORY DUCTS (Right Urethra) Location: [facility] / [facility] Surgeons: Domi Scruggs MD Estimated body mass index is 24.78 [...] August 31, 2021 TIME: 12:08 PM CSN: [id number] [facility] OPERATIVE NOon 08-31-2021 OPERATIVE NO HNO ID: [id number] Author: Domi Scruggs MD Service: Urology Author Type: Physician Type: Operative Report Filed: 08/31/2021 3:22 PM Note Text: [facility] UROLOGY OPERATIVE REPORT Patient Name: Corey Alonso III Patient Log ID: [id number] Surgery Date: 08/31/2021 Incision/Procedure Start Time: 1:17 PM Incision Close/Procedure End Time: 1:47 PM Surgeon(s) and Meter Supervisor(s): Surgeon(s) and Role: * Domi Scruggs MD - Primary * Vitaly Jean Baptiste [...] made to terminate the procedure. An 18Fr [place] tip catheter was inserted over a solo wire and used to drain the bladder. 10cc was added to the balloon. The patient tolerated the procedure well and was taken to the recovery area in stable condition. Estimated Blood Loss 5mL Specimens * No specimens in log * Implantable Devices None Drains 1. 18Fr [place] tip Leal (10cc in balloon) Complications None Accidental perforations or lacerations None The primary surgeon performed the procedure with assistance from the resident Dictated by Won Huerta MD, PhD on behalf of Domi Scruggs MD [facility] CARDIAC SHARON ADMITon 017 CKMB 1.27 ng/mL Normal <=2.37 [facility] Comment on above: Performed By: #### B MP, LIPA, LIVER, CMADM ####[facility] Nvx[address] Creatine kinase (CK) 79 U/L Normal 55-170 [facility] Comment on above: Performed By: #### B MP, LIPA, LIVER, CMADM ####[facility] Srnskxxyhw6845 [address] INR Coag RelTime (Bld) SEE BELOW Normal [facility] Comment on above: Result Comment: <0.0 34 ng/ml NEGATIVE 0.034-0.119 INDETERMINATE 0.120 AMI CUT OFF Performed By: #### B MP, LIPA, LIVER, CMADM ####[facility] V[address]bo[address] JOSH 36.0 ng/mL Normal <=121.0 [facility] Comment on above: Performed By: #### B MP, LIPA, LIVER, CMADM ####[facility] Vuzq[address]qqcou4345 [address] [place] TROP <0.012 Normal <=0.034 [facility] Comment on above: Performed By: #### B MP, LIPA, LIVER, CMADM ####[facility] [address] [place], [place] [address]Jshksp [place] CBC AUTO DIFFon 05-03-2017 Basophils Auto #/vol (Bld) 0.0 103/ul Normal 0.0-0.1 [facility] Comment on above: Performed By: #### C BC ####[facility] [address] [id number] Basophils/100 WBC Auto (Bld) 0.7 % Normal 0.2-2.0 [facility] Comment on above: Performed By: #### C BC ####[facility] [address] [place], [place] [address]ken [place] Eosinophils 0.1 103/ul Normal 0.0-0.7 [facility] Comment on above: Performed By: #### C BC ####[facility] [address] [place], [place] [address] Eosinophils/100 leukocytes 1.1 % Normal 0.9-7.0 [facility] Comment on above: Performed By: #### C BC ####[facility] [address] [id number] Erythrocyte distribution width Auto Ratio (RBC) 12.8 % Normal 11.0-15.0 [facility] Comment on above: Performed By: #### C BC ####[facility] [address] [id number] Erythrocytes (RBC) 4.96 106/ul Normal 4.70-6.10 [facility] Comment on above: Performed By: #### C BC ####[facility] [address] [id number] Hematocrit (HCT) 40.6 % Critically low 42.0-54.0 [facility] Comment on above: Performed By: #### C BC ####[facility] Q[address]qyljknm22[address] [place] Hemoglobin mass conc (Bld) 14.1 g/dL Normal 14.0-18.0 [facility] Comment on above: Performed By: #### C BC ####[facility] [address] [place] [address] [place] IG # 0.03 10e3/ul Normal 0.00-0.03 [facility] Comment on above: Performed By: #### C BC ####[facility] [address] [place] [address] [place] IG % 0.5 % Normal 0.0-0.5 [facility] Comment on above: Performed By: #### C BC ####[facility] [address] [place] [address] [place] Lymphocytes 1.7 103/ul Normal 1.2-3.8 [facility] Comment on above: Performed By: #### C BC ####[facility] [address] [place] [address] [place] Lymphocytes/100 leukocytes 30.6 % Normal 20.5-60.0 [facility] Comment on above: Performed By: #### C BC ####[facility] [address] [place] [address] [place] MANUAL DIFF REQ NO Normal [facility] Comment on above: Performed By: #### C BC ####[facility] [address] [place] [address] [place] MCH 28.4 pg Normal 25.9-34.0 [facility] Comment on above: Performed By: #### C BC ####[facility] [address] [place] [address] [place] MCHC mass conc (RBC) 34.7 g/dL Normal 29.9-35.2 [facility] Comment on above: Performed By: #### C BC ####[facility] [address] [place] [address] [place] MCV 81.9 fL Normal 80.0-94.0 [facility] Comment on above: Performed By: #### C BC ####[facility] [address] [place], [place] [address]Iluuto [place] Monocytes 0.3 103/ul Normal 0.3-0.8 [facility] Comment on above: Performed By: #### C BC ####[facility] [address] [place], [place] [address]Foghas [place] Monocytes/100 leukocytes 5.7 % Normal 1.7-12.0 [facility] Comment on above: Performed By: #### C BC ####[facility] [address] [place], [place] [address]Phwrfs [place] Neutrophils 3.5 103/ul Normal 1.4-6.5 [facility] Comment on above: Performed By: #### C BC ####[facility] [address] [place], [place] [address]ken [place] Neutrophils/100 WBC Auto (Bld) 61.4 % Normal 43.0-75.0 [facility] Comment on above: Performed By: #### C BC ####[facility] [address] [place] [address]Ezgerh [place] Platelet mean volume (PMV) 9.3 fL Critically low 9.5-13.5 [facility] Comment on above: Performed By: #### C BC ####[facility] [address] [place] [address]Ubpnzv [place] Platelets 221 103/ul Normal 150-450 [facility] Comment on above: Performed By: #### C BC ####[facility] [address] [place] [address]Fxwqjy [place] WBC (Leukocytes) 5.7 103/ul Normal 4.0-11.0 [facility] Comment on above: Performed By: #### C BC ####[facility] [address] [place], [place] [id number] [place] LIPASEon 05-03-2017 Lipase 55.0 U/L Normal 23.0-300.0 [facility] Comment on above: Performed By: #### B MP, LIPA, LIVER, CMADM ####[facility] [address] [id number] LIVER PROFILEon 05-03-2017 Alanine aminotransferase (ALT) 35 U/L Normal 21-72 [facility] Comment on above: Performed By: #### B MP, LIPA, LIVER, CMADM ####[facility] [address] [id number] Albumin 4.4 g/dL Normal 3.5-5.0 [facility] Comment on above: Performed By: #### B MP, LIPA, LIVER, CMADM ####[facility] Nytupredbw[address]54 [address] [place] Albumin/Globulin Ratio 1.4 {ratio} Normal [facility] Comment on above: Performed By: #### B MP, LIPA, LIVER, CMADM ####[facility] Pelrwyvicp5269 [address] [place] Alkaline phosphatase (ALP) 74 U/L Normal 38-126 [facility] Comment on above: Performed By: #### B MP, LIPA, LIVER, CMADM ####[facility] [address] [id number] Aspartate aminotransferase (AST) 21 U/L Normal 17-59 [facility] Comment on above: Performed By: #### B MP, LIPA, LIVER, CMADM ####[facility] Ygmphdehkl[address]43 [address] [place] BILI, CONJUGATED 0.0 mg/dL Normal 0.0-0.3 [facility] Comment on above: Performed By: #### B MP, LIPA, LIVER, CMADM ####[facility] Idnefnrkip[address] [place] Bilirubin Ql (U) 0.8 mg/dL Normal 0.2-1.3 [facility] Comment on above: Performed By: #### B MP, LIPA, LIVER, CMADM ####[facility] Lzunmwxfww2815 [address] [place] Globulin 3.1 g/dL Normal [facility] Comment on above: Performed By: #### B MP, LIPA, LIVER, CMADM ####[facility] Obkwugbgyu8238 [address] [place] Protein 7.5 g/dL Normal 6.1-8.2 [facility] Comment on above: Performed By: #### B MP, LIPA, LIVER, CMADM ####[facility] Hjypajkigp39[address] [place] PROF CHEM 8 (BAS METB)on Anion gap 12.7 mmol/L Normal [facility] Comment on above: Performed By: #### B MP, LIPA, LIVER, CMADM ####[facility] [address] [place] [address] [place] BUN/Creatinine Ratio 14.4 mg/mg Normal [facility] Comment on above: Performed By: #### B MP, LIPA, LIVER, CMADM ####[facility] [address] [place] [address] [place] Calcium 9.6 mg/dL Normal 8.4-10.2 [facility] Comment on above: Performed By: #### B MP, LIPA, LIVER, CMADM ####[facility] [address] [place] [address] [place] Chloride 103 mmol/L Normal 98-107 [facility] Comment on above: Performed By: #### B MP, LIPA, LIVER, CMADM ####[facility] Deiqpgcxwm4998 [address] [place] CO2 30.0 mmol/L Normal 22.0-30.0 [facility] Comment on above: Performed By: #### B MP, LIPA, LIVER, CMADM ####[facility] [address] [place] [address] [place] Creatinine 0.87 mg/dL Normal 0.66-1.25 [facility] Comment on above: Performed By: #### B MP, LIPA, LIVER, CMADM ####[facility] [address] [place] [address]Xjpuyw [place] eGFR (non-black) Normal 60-N/A [facility] Comment on above: Performed By: #### B MP, LIPA, LIVER, CMADM ####[facility] [address] [place], [place] [address]Utrnsb [place] Glucose mass conc 100 mg/dL Normal 74-106 [facility] Comment on above: Performed By: #### B MP, LIPA, LIVER, CMADM ####[facility] [address] [place], [place] [address]Byylts [place] Potassium molar conc 4.0 mmol/L Normal 3.4-5.0 [facility] Comment on above: Performed By: #### B MP, LIPA, LIVER, CMADM ####[facility] [address] [place], [place] [address]Mfyzhr [place] Sodium 142 mmol/L Normal 137-145 [facility] Comment on above: Performed By: #### B MP, LIPA, LIVER, CMADM ####[facility] [address] [place], [place] [address]Aakkoy [place] Urea nitrogen 13.0 mg/dL Normal 9.0-20.[address] [facility] Comment on above: Performed By: #### B MP, LIPA, LIVER, CMADM ####[facility] [address] [place], [place] [address]Rbhadx [place] Vital Signs Date Time Vital Sign Value Performing Clinician Facility 01-29-2024 15:18040 Body height 175.3 cm Deep Babb MD Work Phone: [facility] 01-29-2024 15:18-040 Body mass index (BMI) [Ratio] 25.55 kg/m2 Deep Babb MD Work Phone: [facility] 01-29-2024 15:18040 Body weight 78.47 kg Deep Babb MD Work Phone: [facility] 01-29-2024 15:18-040 Diastolic blood pressure 82 mm[Hg] Deep Babb MD Work Phone: [facility] 01-29-2024 15:18-0400 Heart rate 81 /min Deep Babb MD Work Phone: [facility] 01-29-2024 15:18-0400 SaO2% (BldA) [Mass fraction] 98 % Deep Babb MD Work Phone: [facility] 01-29-2024 15:18-0400 Systolic blood pressure 133 mm[Hg] Deep Babb MD Work Phone: [facility] 12-30-2023 08:06-0400 Body height 172.7 cm Deep Babb MD Work Phone: [facility] 12-30-2023 08:06-0400 Body mass index (BMI) [Ratio] 25.85 kg/m2 Deep Babb MD Work Phone: [facility] 12-30-2023 08:06-0400 Body weight 77.11 kg Deep Babb MD Work Phone: [facility] 12-30-2023 08:06-0400 Diastolic blood pressure 86 mm[Hg] Deep Babb MD Work Phone: [facility] 12-30-2023 08:06-0400 Heart rate 105 /min Deep Babb MD Work Phone: [facility] 12-30-2023 08:06-0400 SaO2% (BldA) [Mass fraction] 97 % Deep Babb MD Work Phone: [facility] 12-30-2023 08:06-0400 Systolic blood pressure 148 mm[Hg] Deep Babb MD Work Phone: [facility] 03-31-2023 16:45-0400 Body temperature 98.06 [degF] Ramón Carrizales [facility] 03-31-2023 16:45-0400 Diastolic blood pressure 86 mm[Hg] Ramón Carrizales [facility] 03-31-2023 16:45-0400 Heart rate 80 /min Ramón Carrizales [facility] 03-31-2023 16:45-0400 Respiratory rate 16 /min Ramón Carrizales [facility] 03-31-2023 16:45-0400 SaO2% (BldA) [Mass fraction] 98 % Ramón Carrizales [facility] 03-31-2023 16:45-0400 Systolic blood pressure 136 mm[Hg] Ramón Carrizales [facility] 09-30-2022 21:22-0500 Diastolic blood pressure 83 mm[Hg] Junior Idalmis [facility] 09-30-2022 21:22-0500 Heart rate 90 /min Junior Idalmis [facility] 09-30-2022 21:22-0500 Mean blood pressure 97 mm[Hg] Junior Idalmis [facility] 09-30-2022 21:22-0500 Respiratory rate 19 /min Junior Idalmis [facility] 09-30-2022 21:22-0500 SaO2% (BldA) [Mass fraction] 100 % Junior Idalmis [facility] 09-30-2022 21:22-0500 Systolic blood pressure 124 mm[Hg] Junior Idalmis [facility] 09-30-2022 20:01-0500 Body temperature 98.24 [degF] Junior Idalmis [facility] 09-30-2022 20:01-0500 Diastolic blood pressure 100 mm[Hg] Junior Idalmis [facility] 09-30-2022 20:01-0500 Heart rate 100 /min Junior Idalmis [facility] 09-30-2022 20:01-0500 Respiratory rate 18 /min Junior Idalmis [facility] 09-30-2022 20:01-0500 SaO2% (BldA) [Mass fraction] 99 % Junior Idalmis [facility] 09-30-2022 20:01-0500 Systolic blood pressure 133 mm[Hg] Junior Idalmis [facility] 08-11-2022 08:34-0500 Body temperature 97.59 [degF] Chavez Chirri DO Work Phone: [facility] [employer] 08-11-2022 08:34-0500 Diastolic blood pressure 86 mm[Hg] Chavez Chirri DO Work Phone: [facility] [employer] 08-11-2022 08:34-0500 Heart rate 70 /min Chavez Chirri DO Work Phone: [facility] [employer] 08-11-2022 08:34-0500 Respiratory rate 16 /min Chavez Chirri DO Work Phone: [facility] [employer] 08-11-2022 08:34-0500 SaO2% (BldA) [Mass fraction] 97 % Chavez Chirri DO Work Phone: [facility] [employer] 08-11-2022 08:34-0500 Systolic blood pressure 137 mm[Hg] Chavez Chirri DO Work Phone: [facility] [employer] 08-07-2022 15:24-0500 Body height 172.7 cm Chavez Chirri DO Work Phone: [facility] [employer] 08-07-2022 15:24-0500 Body mass index (BMI) [Ratio] 26.95 kg/m2 Chavez Chirri DO Work Phone: [facility] [employer] 08-07-2022 15:24-0500 Body weight 80.4 kg Chavez Lee DO Work Phone: [facility] 02-02-2022 06:32-0400 Body temperature 98.01 [degF] [facility] 02-02-2022 06:32-0400 Diastolic blood pressure 82 mm[Hg] Et3 [facility] 02-02-2022 06:32-0400 Heart rate 96 /min Et3 [facility] 02-02-2022 06:32-0400 Respiratory rate 18 /min Et[facility] 02-02-2022 06:32-0400 SaO2% (BldA) [Mass fraction] 98 % [facility] 02-02-2022 06:32-0400 Systolic blood pressure 128 mm[Hg] Et3 [facility] Encounters Encounter Date Encounter Type Care Provider Facility Start: 02-17-2024 End: 02-17-2024 Subsequent hospital visit by physician eDnnis Brunoyra (I-Stat/3t) Work Phone: Radiology Comment on above: No Show Start: 02-17-2024 End: 02-17-2024 ambulatory [facility] Facility:[facility] Start: 02-17-2024 End: 02-17-2024 Subsequent hospital visit by physician [employer] [employer] [facility] (I-Stat/1.5t/3t) Work Phone: MRI Q Comment on above: Seizure (HCC) [R56.9 ] Start: 02-06-2024 Telephone encounter Deep black MD Work Phone: Neurology Comment on above: Seizures Medication Problem ( Lamotrigine ) Start: 01-31-2024 Telephone encounter Deep black MD Work Phone: Neurology Comment on above: Other Start: 01-29-2024 End: 01-29-2024 Patient encounter procedure Deep Babb MD Work Phone: Neurology Comment on above: Seizure-like activit y (HCC) (Primary Dx) Start: 01-29-2024 End: 01-29-2024 ambulatory EMELI CHI Facility:[facility] Start: 01-02-2024 Orders Only Shandra Yost Work Phone: Neurology Comment on above: Psychogenic nonepile ptic seizure (Primary Dx) Seizure (HCC) (Prima ry Dx) Start: 12-30-2023 End: 01-03-2024 ambulatory EMELI CHI Facility:[facility] Start: 12-30-2023 End: 12-30-2023 Patient encounter procedure Leah Zhu MD Work Phone: Neurology Comment on above: Seizure (HCC) (Prima ry Dx); Anxiety; Recurrent major depressive disorder, in partial remission (HCC) Start: 12-30-2023 End: 12-30-2023 ambulatory EMELI Pizano [facility] Facility:[facility] Start: 11-12-2023 Patient encounter procedure Kelly Sandoval MD Work Phone: Neurology Comment on above: Seizure (HCC) (Prima ry Dx) Start: 11-12-2023 Telephone encounter Kelly Sandoval MD Work Phone: Neurology Comment on above: Future Appointment ( [place], [place] ) Start: 03-31-2023 End: 03-31-2023 Emergency department patient visit Ramón Carrizales Facility[facility] Start: 03-31-2023 End: 03-31-2023 Emergency department patient visit Ramón Carrizales [facility] Start: 09-30-2022 End: 09-30-2022 Emergency department patient visit Junior Raygoza Facility:[facility] Start: 09-30-2022 End: 09-30-2022 Emergency department patient visit Junior Raygoza [facility] Start: 09-23-2022 End: 09-23-[address] ORAL Trujillo Facility: Start: 09-13-2022 End: 09-13-2022 ambulatory CECILIA Trujillo Facility: Start: 08-07-2022 End: 01-14-2023 Evaluation and management of inpatient CHAVEZ CHIRRI [facility] Start: 08-07-2022 End: 08-11-2022 Evaluation and management of inpatient Chavez Lee DO Work Phone: [facility]al//Med Surg Start: 06-15-2022 End: 06-16-[address] DOCTOR RAY Facility:[facility] Start: 06-11-2022 End: 06-11-2022 ambulatory EMELI CHI Facility:[facility] Start: 06-11-2022 End: 06-11-2022 ambulatory JOSIAH MAY Facility:[facility] Start: 06-10-2022 End: 06-10-2022 ambulatory JOSIAH MAY Facility:[facility] Start: 05-17-2022 End: 05-18-[address] DOCTOR RAY Facility:[facility] Start: 04-24-2022 End: 04-24-2022 ambulatory BRIAN Trujillo Facility:[facility] Start: 04-12-2022 End: 04-12-2022 ambulatory Emeli Chi Facility:[facility] Start: 04-12-2022 End: 04-12-2022 Patient encounter procedure FLOOR RENOVATOR-C Emeli Chi Work Phone: [facility] [place] Start: 04-06-2022 End: 04-07-[address] DOCTOR RAY Facility:[facility] Start: 02-27-2022 End: 02-28-[address] LE OLVERA . Facility:[facility] Start: 02-27-2022 End: 02-27-2022 ambulatory JOSIAH MAY Facility:[facility] Start: 02-02-2022 End: 02-09-2022 ambulatory UNKNOWN PROVIDER Facility:[facility] Start: 02-02-2022 End: 02-02-2022 ambulatory [facility] Emergenc y Triage, Treat and Transport Start: 02-02-2022 End: 02-02-2022 Emergency department patient visit [facility] Emergency Triage, Treat and Transport Comment on above: Arrived Start: 12-30-2021 End: 12-31-2021 ambulatory JOSIAH MAY Facility:[facility] Start: 11-28-2021 End: 12-01-2021 ambulatory HANS [facility]RA[facility]DO [facility] Start: 11-23-2021 Telephone encounter Won berger MD Work Phone: Urology Comment on above: Results Procedures Date Procedure Procedure Detail Performing Clinician Start: 08-07-2022 EEG VIDEO MONITORING Aury Waller MANAGER REGULATORY - INTERNAL GRINDER Work Phone: Start: 08-07-2022 BASIC METABOLIC PANE L W/ REFLEX TO MG FOR LOW K Alexia Waller MANAGER REGULATORY - INTERNAL GRINDER Work Phone: Start: 08-07-2022 Blood count complete auto&auto difrntl wbc Alexia Waller MANAGER REGULATORY - INTERNAL GRINDER Work Phone: Cystoscopy Junior Idalmis Procedure on knee Junior Vazquez sonia Plan of Treatment Date Care Activity Detail Author Start: 2046 Shingles (RZV) Vacci ne (1 of 2) Shingles (RZV) Vaccine (1 of 2) [facility] Start: 05-05-2024 End: 05-05-2024 Follow-up encounter 05/05/2024 1:30 PM EDT [facility] Neurology [address] [id number] Virginie Moses, MANAGER REGULATORY.INTERNAL GRINDER [address] [id number] Follow Up Neurology Comment on above: Follow Up Start: 04-09-2024 End: 04-09-2024 ambulatory 04/09/2024 9:00 AM EDT [facility] [address] [facility] [address] [id number] Neida Kee, PhD [address] [id number] Psychogenic nonepileptic seizure Neurology Comment on above: Psychogenic nonepile ptic seizure Start: 03-29-2024 Influenza vaccination C [facility] Start: 03-05-2024 End: 03-05-2024 Follow-up encounter 03/05/2024 10:00 AM EDT [facility] [address] [place] [address] Virginie Moses, MANAGER REGULATORY.INTERNAL GRINDER [address] [place] [address] Follow Up Neurology Comment on above: Follow Up Start: 02-17-2024 End: 02-17-2024 Patient encounter procedure 02/17/2024 4:40 PM EDT Appointment Radiology [address] [address] Seizure Radiology Comment on above: Seizure Start: 02-17-2024 Subsequent hospital visit by physician 02/17/2024 4:40 PM EDT Hospital Encounter Radiology [address] [place] [id number] Seizure (HCC) [R56.9] Radiology Comment on above: Seizure (HCC) [R56.9 ] Start: 01-29-2024 End: 01-29-2024 Patient encounter procedure 01/29/2024 3:30 PM EDT Office Visit Neurology [address] [place] [address] Deep Babb MD [address] [facility] [address] [place] [address] Follow Up Neurology Comment on above: Follow Up Start: 09-10-2023 Covid-19 Vaccine ( season) Covid-19 Vaccine () [facility] Start: 07-29-2023 Behavioral Health Screening Behavioral Health Screening [facility] Start: 03-29-2023 Covid-19 Vaccine ( season) Covid-19 Vaccine ( season) [facility] Start: 11-16-2022 Depression Screen Depression Screen GIGI [facility] Start: 10-15-2022 End: 10-15-2022 Patient encounter procedure 10/15/2022 Office Visit Neurology Hans Granado MD [address] [place] [address] [facility] NEUROLOGY [facility] Start: 03-29-2022 Influenza vaccination INFLUENZ A (Season Ended) [facility] Start: 02-26-2022 [facility] Start: 11-04-2019 DTaP/Tdap/Td vaccine (7 - Tdap) DTaP/Tdap/Td vaccine (7 - Tdap) [facility] Start: 11-04-2019 Urine microalbumin profile DTaP,Tdap,Td Vaccine (7 - Tdap) [facility] Start: 2015 Urine microalbumin profile DTAP,TDAP,TD (1 - Tdap) [facility] Start: 2014 Anxiety Screening Anxiety Screening [facility] Start: 2014 Depression Screening Depression Scre ening [facility] Start: 2014 HEPATITIS C SCREENING HEPATITIS C SC [facility] Start: 2014 Hepatitis C screening [facility] Start: 2014 HIV SCREENING HIV SCREENING [facility] Start: 2014 HIV screening HIV Screening [facility] Start: 2014 Tetanus + diphtheria + acellular pertussis vaccine (product) Tdap Booster [facility] Start: [address] [facility] Start: 2010 PEDS TO ADULT TRANSI TION ANNUAL ASSESSMENT PEDS TO ADULT TRANSITION ANNUAL ASSESSMENT [facility] Start: 2008 Adult depression screening assessment DEPRESSION SCREENING [facility] Start: 2008 PEDS TO ADULT TRANSI TION INITIAL DISCUSSION PEDS TO ADULT TRANSITION INITIAL DISCUSSION [facility] Start: 2007 HPV VACCINE (1 - Mal e 2-dose series) HPV VACCINE (1 - Male 2-dose series) [facility] Start: 2007 Vaccination for damir n papillomavirus Human Papilloma (HPV) Vaccine (1 - Male 2-dose series) [facility] Start: 2001 COVID-19 VACCINE (1) COVID-19 VACCIN E (1) [facility] Start: 2000 Varicella vaccine (2 of 2 - 2-dose childhood series) Varicella vaccine (2 of 2 - 2-dose childhood series) [facility] Start: 02-05-1997 COVID-19 Vaccine (#1) COVID-19 Vacci ne (#1) [facility] Start: 02-05-1997 Hepatitis B Vaccine (3 of 3 - 3-dose series) Hepatitis B Vaccine (3 of 3 - 3-dose series) [facility] End: 11-12-2024 EPIL EEG LEAD PLACEMENT EPIL EEG LEAD PLACEMENT NEUROLOGY Routine Seizure (HCC) 1 Occurrences starting 11/13/2023 until 11/12/2024 [facility] Work Phone: Comment on above: 1 Occurrences starti ng 11/13/2023 until 11/12/2024 EPIL VEEG ADMIT TO EMU/PMU EPIL VEEG ADMIT TO EMU/PMU NEUROLOGY Routine Seizure (HCC) Ordered: 11/13/2023 [facility] Work Phone: Comment on above: Ordered: 11/13/2023 End: 01-31-2025 MR Brain WO contrast MRI BRAIN WO IVCON Radiology Routine Seizure (HCC) 1 Occurrences starting 01/02/2024 until 01/31/2025 [facility] Work Phone: Comment on above: 1 Occurrences starti ng 01/02/2024 until 01/31/2025 MR Brain WO contrast MRI BRAIN W O IVCON Radiology Routine Seizure (HCC) 02/17/2024 8:39 PM EDT [facility] Work Phone: Oxygen therapy [[facility] Data Set] Initiate Oxygen Therapy Protocol Respiratory Care Routine Daily until discontinued starting 08/07/2022 [facility] Work Phone: Comment on above: Daily until disconti nued starting 08/07/2022 [facility] Payers Date Payer Category Payer Medicaid [place] [employer] [facility] MEDICAID [id number] 2022-Present [phone] [address] [place] [address] Medicaid [id number] 2022 Self-pay 2021 Unknown [facility] [place] [id number] 2021-Present [id number] 2018 Medicaid [place] [facility] MED[place] [id number] 2018-Present [phone] [facility] [address] [place] [address] Medicaid [id number] 1996 Unknown [id number] [id number] 1996 Unknown [id number] [id number]3 1996 Unknown [id number] 2.16.840.1.308591.3.579.2.732 1996 Unknown [id number] 2.16.840.1.274122.3.579.2.593 1996 Unknown [id number] 2.16.840.1.633438.3.579.2.593 1996 Unknown [id number] 2.16.840.1.617203.3.579.2.593 1996 Unknown [id number] 2.16.840.1.737648.3.579.2.593 1996 Unknown [id number] 2.16.840.1.622402.3.579.2.593 1996 Unknown [id number] 2.16.840.1.288753.3.579.2.593 1996 Unknown [id number] 2.16.840.1.186079.3.579.2.593 1996 Unknown [id number] 2.16.840.1.836301.3.579.2.593 1996 Unknown [id number] 2.16.840.1.336633.3.579.2.593 1996 Unknown [id number] 2.16.840.1.734238.3.579.2.593 1996 Unknown [id number] 2.16.840.1.963836.3.579.2.593 1996 Unknown [id number] 2.16.840.1.261197.3.579.2.593 1996 Unknown [id number] 2.16.840.1.407919.3.579.2.593 1996 Unknown [id number] 2.16.840.1.721613.3.579.2.727 1996 Unknown [id number] 2.16.840.1.600149.3.579.2.727 1996 Unknown [id number] 2.16.840.1.872017.3.579.2.175 1959 Unknown [id number] Unknown [id number] [id number] Social History Date Type Detail Facility Start: 01-20-2021 End: 12-30-2023 Tobacco smoking status PRIS Never smoked tobacco [facility] Start: 01-20-2021 End: 12-30-2023 Tobacco use and exposure Smokeless tobacco non-user [facility] Start: 08-03-2021 End: 01-29-2024 Alcohol intake Ex-drinker (finding) [facility] Start: 1996 Sex Assigned At Not on file [facility] Start: 11-05-2021 End: 08-07-2022 Exposure to SARS-CoV-2 (event) Not sure [facility] Tobacco smoking status PRIS Tobacco smoking consumption unknown [facility] Start: 1996 Sex Assigned At Male [facility] Start: 08-07-2022 Alcohol intake Lifetime non-d starr (finding) [facility] Work [facility]: Tobacco smoking status Never [facility] Start: 08-03-2021 End: 12-30-2023 Sex Assigned At Male [facility] Start: 08-03-2021 End: 12-30-2023 History of Social function [facility] Functional Status Date Assessment Result Facility 03-31-2023 Functional Status N/A [facility] 09-30-2022 Functional Status N/A [facility] Clinical Notes 08-31-2021 to 02-17-2024 Felix Henson RT(R) - 02/17/2024 7:20 PM EDTTelephone Encounter - Skyla Sanchez RN - 02/07/2024 8:57 AM EDTTelephone Encounter - Skyla Sanchez RN - 02/07/2024 8:57 AM EDT Note Date & Type Note Facility 02-17-2024 History of Presen t illness Narrative Radiology Service Progress Note PATIENT NAME: Corey Alonso III DATE OF SERVICE: February 17, 2024 TIME: 7:57 PM PATIENT IDENTITY VERIFICATION COMPLETED USING TWO (2) IDENTIFIERS: Name and Date of confirmed by patient verbally and Name and Date of confirmed by identification band. FALL SCREENING: Has the patient had 2 falls in the last year or 1 fall with injury or currently using an Ambulatory Assistive Device (Walker, Cane, Wheelchair, Crutches, etc.)? No PATIENT GENDER DATA: Male PATIENT RELEVANT IMPLANT DATA REVIEWED: Yes PATIENT PRESENTS WITH AN IMPLANTABLE OR ATTACHED SATELLITE TV INSTALLER: No RADIOLOGY DEPARTMENT: MR;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 having seen or heard something before (darien blum). Odd tastes or smells. Changes in vision, [...] Follow these instructions at home: Medicines Take bmjs-zot-uxdywgs and prescription medicines only as told by [...] check with your local DMV (department of [employer]) to find out about local driving laws. [...] Treatment is effective at controlling seizures. Take bpbt-gdn-eravurd and prescription medicines only as told by [...] 07/15/2006 Document Revised: 03/09/2019 Document Reviewed: 03/09/2019 [employer] Patient Education 2020 Net Transmit & Receive. Follow Up Care 09/30/2022 20:00:37 With:EMELI CHI Address: [address] [place] [address] [phone] Business (1) When:Within 3 Day(s) [facility]03-05-2023 Evaluation + Plan noteExtracted from: Title:ED Note Author:Junior Raygoza DO Date :09/30/22 Seizure (R56.9: Unspecified convulsions) Orders: lorazepam, 2 mg = 2 tab(s), Tab, Oral, Once, Stop date 09/30/22 22:00:00 EST, Routine, Start date 09/30/22 22:00:00 EST, 09/30/22 21:09:00 EST [facility]01-14-2023 Hospital course Narrative* Benjamin Miles MD - 08/11/2022 2:28 PM EST Images from the original note were not included. [facility] Department of Neurology INPATIENT DISCHARGE SUMMARY Patient Identification: Corey Alonso III is a 27 y.o. male. : 1995 Acct: [id number] Admit Date: 08/07/2022 Discharge date and time: [...] doesnot recall events, occasionally has aura of darien blum with confusion. States that stress and sleep deprivation trigger his seizures. He can be seizure-free for weeks and then have 1-2 seizures per day. Had 6 seizures that occurred overnight 07/03-07/04. Has been seizure-free since then. Follows with neurologist in [place] currently taking Trileptal 600 mg twice daily, [...] Diet: regular diet Follow-up: Hans Granado MD [address] [id number] Schedule an appointment as soon as possible for a visit follow up with neurology in 4-6weeks for seizure disorder Follow up labs: None Follow up imaging: None Note that over 30 minutes was spent in preparing discharge papers, discussing discharge with patient, medication review, etc. Benjamin Miles MD, Neurology Resident PGY-2 Department of Neurology [place], [place] 08/11/2022, 4:52 PM Associated attestation - [...] 08/11/2022 4:57 PM [facility] Work Phone: 1(622) 862-894701-14-2023 History of Present illness Narrative* Benjamin Miles MD - 08/11/2022 2:16 PM EST [facility] Neurology IN-PATIENT SERVICE [facility] Progress Note Date: 08/11/2022 Patient name: Corey Alonso III Date of admission: 08/07/2022 2:07 PM Account: [id number] Date of : 1995 PCP: Emeli Chi Room: 423/879 Code Status: Full Code Chief Complaint: Elective [...] seizure-free since then. Follows with neurologist in [place] currently taking Trileptal 600 mg twice daily, [...] 8 (1.727 m) Wt 177 lb 4 oz (80.4 kg) SpO2 97% BMI 26.95 kg/m Temp [...] Lee DO 08/11/2022 3:11 PM * Kayden BELL Collado - INTERNAL GRINDER - 08/10/2022 10:43 AM EST Neurology Nurse [...] follows up with his own neurologist in [place] and has been taking Trileptal 600 mg twice daily and Lamictal 300 mg twice daily. LTME was recommended to capture and characterize her typical spells. Patient presented to [facility] on 08/07/2022 for inpatient LTME. [...] to ensure the accuracy of this automated dock loader, some errors in dock loader may have occurred. Associated attestation - Chavez [...] DO 08/10/2022 2:54 PM * Kayden Collado MANAGER REGULATORY - INTERNAL GRINDER - 08/09/2022 11:51 AM EST Neurology Nurse [...] follows up with his own neurologist in [place] and has been taking Trileptal 600 mg twice daily and Lamictal 300 mg twice daily. LTME was recommended to capture and characterize her typical spells. Patient presented to [facility] on 08/07/2022 for inpatient LTME. [...] to ensure the accuracy of this automated dock loader, some errors in dock loader may have occurred. Associated attestation - Chavez [...] Chavez Lee DO 08/09/2022 5:17 PM * Kayden Collado APRN - [place] - 2022 11:57 AM EST Neurology Nurse [...] Hefollows up with his own neurologist in [place] and has been taking Trileptal 600 mg twice daily and Lamictal 300 mg twice daily. LTME was recommended to capture and characterize her typical spells. Patient presented to [facility] on 08/07/2022 for inpatient LTME. [...] to ensure the accuracy of this automated dock loader, some errors in dock loader may have occurred. * Tisha Peters - 08/07/2022 5:32 PM EST ALTM started [facility] [employer] Work Phone: 1(828) 381-287109-15-2022 NoteSperm Rapid ProgressiveSeptember 2021 9:00amTNPTest not performedSelect [facility] [address] [id number] on above:Test not [id number] NoteSperm Non-ProgressiveSeptember 2021 9:00amTNPTest not performedSelect [facility] [address] [id number] HospitalComment on above:Test not [id number] History of Present illness Narrative* Maritza Romo MD - 02/02/2022 6:12 AM EDT Images from the original note were not included. EMERGENCY TRIAGE, TREAT AND TRANSPORT (ET3) DOCUMENTATION OF TELEHEALTH VISIT Date / Time: 02/02/2022599 Name: Corey Alonso : 1995 SSN: [id number] EMS Agency: [facility] [x] Verbal consent obtained [] [...] by: Maritza Romo MD documented in this [id number] Miscellaneous Notes* Telephone Encounter - Won Hureta MD - 11/23/2021 5:27 PM EDT Called to discuss results Remains azoospermic - suspected obstructive process Discussed next steps - TESE with IVF He will consider this and let us know All questions answered RTC prn Won Huerta MD, PhD [facility] NoteHNO ID: [id number] Author: Tung Macias MD Service: Anesthesiology Author Type: Anesthesiologist Type: Anesthesia Procedure Notes Filed: 09/01/2021 6:32 AM Note Text: ANESTHESIOLOGY PROCEDURE NOTE Airway General Information Procedure Start Time/Medication Administration: 08/31/2021 1:10 PM Patient location during procedure: OR Timeout Performed Pre-procedure: timeout performed Consent Obtained: Yes Patient identity confirmed: arm band and patient Staffing Anesthesiologist: Tung Macias MD TELEPHONE ORDER CLERK ROOM SERVICE: Rubi Javier APRN.TELEPHONE ORDER CLERK ROOM SERVICE Performed by: KARLA Indications and Patient Condition [...] no Airway not difficult SIGNATURE: Rubi Javier APRN.TELEPHONE ORDER CLERK ROOM SERVICE PATIENT NAME: Corey Alonso III DATE: August 31, 2021 TIME: 1:16 PM CS[facility]: [id number]* Diagnosis Seizure (HCC)- Primary Other convulsions [facility] noteNo assessment information availableToledo [facility] Work Phone: Evaluation note* Diagnosis Partial symptomatic epilepsy with complex partial seizures, intractable, without status epilepticus (HCC)- Primary Seizure-like activity (HCC) Other convulsions documented in this encounter [facility] Work Phone: evaluation note* Diagnosis Seizure (HCC)- Primary Other convulsions documented in this encounter [facility] note* Diagnosis Seizure (HCC)- Primary Other convulsions Anxiety Anxiety state, unspecified Recurrent major depressive disorder, in partial remission (HCC) documented in this encounter [facility] note* Diagnosis Psychogenic nonepileptic seizure- Primary documented in this encounter [facility] note* Diagnosis Seizure (HCC)- Primary Other convulsions documented in this encounter [facility] note* Diagnosis Seizure-like activity (HCC)- Primary Other convulsions documented in this encounter [facility] note* Diagnosis Seizure-like activity (HCC)- Primary Other convulsions documented in this encounter [facility] note* Diagnosis Seizure (HCC) Other convulsions [facility] in this [facility] Narrative No data available for this section [facility] No data available for this section [facility] (narrative)* Outpatient Procedure (Routine) - Pending Review Specialty Diagnoses / Procedures Referred By Randy gupta Referred To Contact [facility] Diagnoses Seizure (HCC) Procedures EPIL EEG LEAD PLACEMENT EEG EXTENDED MONITORING 61-119 MINUTES ELECTROENCEPHALOGRAM REC COMA/SLEEP ONLY Shandra Berman APRN.CNP [address] [facility] [place] [address] [facility] [address] [place] [address] Referral ID Status Reason Start Date Expiration Date Visits Requested Visits Authorized [id number] Pending Review Auto-Generat ed Referral 11/13/2023 11/12/2024 1 1 [facility] Summary Purpose Family History No Family History Records FoundNo Family History Records FoundNo Family History Records FoundNo Family History Records FoundNo Family History Records FoundNo Family History Records FoundNo Family History Records FoundNo Family History Records FoundNo Family History Records Found Advance Directives No Advanced Directives Records FoundDocuments on File Type Date Recorded Patient Channel Opener Outsoles Expl anation Advance Directive(s) 07/17/2021 12:20 PM Advance Directive Response Recorded Date/ Time Advance Directives No March 3:52pm Latest Code Status on File Code Status Date Activated Date Inactivated Comments Full Code 08/07/2022 3:31 PM Full Code 08/07/2022 3:31 PM 08/07/2022 3:31 PM Chief Complaint and Reason for Visit Chief Complaint fertility Reason for Referral Specialty Diagnoses / Procedures Referred By Randy gupta Referred To Contact MR IMAGING Diagnoses Seizure (HCC) Procedures MRI BRAIN WO IVCON MRI BRAIN BRAIN STEM W/O CONTRAST MATERIAL Shandra Higgins PA-C [address] [place] [address] [facility] [place] [address] Referral ID Status Reason Start Date Expiration Date Visits Requested Visits Authorized [id number] Pending Review Auto-Generat ed Referral 01/02/2024 01/31/2025 1 1 Specialty Diagnoses / Procedures Referred By Randy gupta Referred To Contact Psychology Diagnoses Psychogenic nonepileptic seizure Procedures CONSULT TO PSYCHOLOGY OFFICE/OUTPATIENT [facility] 60 MINUTES Shandra Higgins PA-C [address] [place] [address] Referral ID Status Reason Start Date Expiration Date Visits Requested Visits Authorized [id number] Pending Review PCP Requested Referral 01/02/2024 01/01/2025 1 1 Additional Source Comments (unrecognized sect ion and content) No Status Records FoundNo Status Records FoundNo Status Records FoundNo Status Records FoundNo Status Records FoundNo Status Records FoundNo Status Records FoundNo Status Records FoundNo Status Records Found INFORMATION SOURCE (unrecogn ized section and content) DATE CREATED AUTHOR 01/22/2018 [facility] DATE CREATED AUTHOR AUTHOR'S ORGANIZ ATION 09/01/2021 [facility] DATE CREATED AUTHOR AUTHOR'S ORGANIZ ATION 12/05/2021 [facility] DATE CREATED AUTHOR AUTHOR'S ORGANIZ ATION 02/15/2022 [facility] DATE CREATED AUTHOR AUTHOR'S ORGANIZ ATION 04/27/2022 [facility] DATE CREATED AUTHOR AUTHOR'S ORGANIZ ATION 09/26/2022 [facility] DATE CREATED AUTHOR AUTHOR'S ORGANIZ ATION 03/31/2023 Derrek Mckenna [facility] DATE CREATED AUTHOR AUTHOR'S ORGANIZ ATION 05/31/2023 [facility] DATE CREATED AUTHOR AUTHOR'S ORGANIZ ATION 02/20/2024 [facility] Source Comments (unrecognize d section and content) In the event this informatio n is protected by the Federal Confidentiality of Alcohol and Drug Abuse Patient Records regulations: The Federal rules restrict any use of the information to criminally investigate or prosecute any alcohol or drug abuse patient.[facility] the event this information is protected by the Federal Confidentiality of Alcohol and Drug Abuse Patient Records regulations: The Federal rules restrict any use of the information to criminally investigate or prosecute any alcohol or drug abuse patient.[facility] Hospital[facility] the event this information is protected by the Federal Confidentiality of Alcohol and Drug Abuse Patient Records regulations: The Federal rules restrict any use of the information to criminally investigate or prosecute any alcohol or drug abuse patient.[facility] Hospital[facility] the event this information is protected by the Federal Confidentiality of Alcohol and Drug Abuse Patient Records regulations: The Federal rules restrict any use of the information to criminally investigate or prosecute any alcohol or drug abuse patient.[facility] Hospital[facility] the event this information is protected by the Federal Confidentiality of Alcohol and Drug Abuse Patient Records regulations: The Federal rules restrict any use of the information to criminally investigate or prosecute any alcohol or drug abuse patient.[facility] Hospital[facility] the event this information is protected by the Federal Confidentiality of Alcohol and Drug Abuse Patient Records regulations: The Federal rules restrict any use of the information to criminally investigate or prosecute any alcohol or drug abuse patient.[facility] Hospital[facility] the event this information is protected by the Federal Confidentiality of Alcohol and Drug Abuse Patient Records regulations: The Federal rules restrict any use of the information to criminally investigate or prosecute any alcohol or drug abuse patient.[facility] HospitalIn the event this information is protected by the Federal Confidentiality of Alcohol and Drug Abuse Patient Records regulations: The Federal rules restrict any use of the information to criminally investigate or prosecute any alcohol or drug abuse patient.[facility] HospitalIn the event this information is protected by the Federal Confidentiality of Alcohol and Drug Abuse Patient Records regulations: The Federal rules restrict any use of the information to criminally investigate or prosecute any alcohol or drug abuse patient.[facility] Hospital[facility] the event this information is protected by the Federal Confidentiality of Alcohol and Drug Abuse Patient Records regulations: The Federal rules restrict any use of the information to criminally investigate or prosecute any alcohol or drug abuse patient.[facility] Hospital[facility] the event this information is protected by the Federal Confidentiality of Alcohol and Drug Abuse Patient Records regulations: The Federal rules restrict any use of the information to criminally investigate or prosecute any alcohol or drug abuse patient.[facility] HospitalIn the event this information is protected by the Federal Confidentiality of Alcohol and Drug Abuse Patient Records regulations: The Federal rules restrict any use of the information to criminally investigate or prosecute any alcohol or drug abuse patient.[facility] Reason for Visit (unrecogniz ed section and content) Reason Comments Results Reason Comments Seizures Specialty Diagnoses / Procedures Referred By Contac t Referred To Contact Diagnoses Partial symptomatic epilepsy with complex partial seizures, intractable, without status epilepticus (HCC) Seizure-like activity (HCC) partial symptomatic epilepsy w/ complex partial seizures intractable w/o status epilepticus needing LTME Chavez Lee DO [address] [facility] [address] [place] [address] [facility] [address] [place] [address] Referral ID Status Reason Start Date Expiration Date Visits Re quested Visits Authorized [id number] 1 1 Reason Comments Future Appointment [place], [place] Reason Comments New Patient Specialty Diagnoses / Procedures Referred By Contac t Referred To Contact HOSP INPATIENT Diagnoses Unspecified convulsions Procedures EEG PHYS/QHP EA INCR>12HR<26HR AFTER 24HR W/VEEG [facility] [address] [place] [address] Referral ID Status Reason Start Date Expiration Date Visits Re quested Visits Authorized [id number] 1 1 Reason Comments Other Reason Comments Established Patient Follow Up Reason Comments Seizures Reason Comments Medication Problem Lamotrigine Specialty Diagnoses / Procedures Referred By Contac t Referred To Contact MR IMAGING Diagnoses Seizure (HCC) Procedures MRI BRAIN WO IVCON MRI BRAIN BRAIN STEM W/O CONTRAST MATERIAL Shandra Higgins PA-C [address] [place] [address] [place] [address] Referral ID Status Reason Start Date Expiration Date V isits Requested Visits Authorized [id number] Closed Auto-Generate d Referral 02/03/2024 03/04/2024 1 1 Care Teams (unrecognized sec tion and content) Wired Music Operator Relationship Specialty Start Date End Date Emeli Chi CNP [address] [id number] PCP - General Internal Medicine 07/17/21 Team Status: Inactive Member Role Status Dates Emeli Chi NP-Priyank Primary Care Provider Active Derek Burks Attending Provider Active Team Status: Active Member Role Status Dates Emeli Chi NP-C Primary Care Provider Active Wired Music Operator Relationship Specialty Start Date End Date Emeli Chi [address] [id number] PCP - General 11/16/21 Wired Music Operator Relationship Specialty Start Date End Date Emeli Chi CNP [address] [place] [id number] PCP - General Internal Medicine 07/17/21 Wired Music Operator Relationship Specialty Start Date End Date Emeli Chi CNP [address] [phone] PCP - General Internal Medicine 07/17/21 Wired Music Operator Relationship Specialty Start Date End Date Emeli Chi CNP [address] [id number] PCP - General Internal Medicine 07/17/21 Wired Music Operator Relationship Specialty Start Date End Date Emeli Chi CNP [address] [place] [address] PCP - General Internal Medicine 07/17/21 Wired Music Operator Relationship Specialty Start Date End Date Emeli Chi CNP [address] [place] [address] PCP - General Internal Medicine 07/17/21 Wired Music Operator Relationship Specialty Start Date End Date Emeli Chi CNP [address] [place] [address] PCP - General Internal Medicine 07/17/21 Wired Music Operator Relationship Specialty Start Date End Date Emeli Chi CNP [address] [place] [address] PCP - General Internal Medicine 07/17/21 Wired Music Operator Relationship Specialty Start Date End Date Emeli Chi CNP [address] [place] [address] PCP - General Internal Medicine 07/17/21 Wired Music Operator Relationship Specialty Start Date End Date Emeli Chi CNP [address] [place] [address] PCP - General Internal Medicine 07/17/21 Wired Music Operator Relationship Specialty Start Date End Date Emeli Chi CNP [address] [place] [address] PCP - General Internal Medicine 07/17/21 Goals (unrecognized section and content) Goals may [...] 1800, Until Discontinued, Indication of Use: Prophylaxis-DVT/PE 183 (Given - Provider: Brittaney Scott RN) 181 [...] 20 mL/lumen 0847 (Given - Provider: Brittaney Scott, JOSE)2109 (Given - Provider: Eli Michel RN) 0926 (Given - Provider: Wanda Moulton RN)211 (Not Given - Provider: Qian Christensen RN [...] BE BASED ON THE PRIMARY CLINICAL RECORDS. [facility]. provides no warranty or guarantee of the accuracy or completeness of information in this document.
[2024-03-04] MEDS: MAGNESIUM SULFATE/D5W 1 GM/100 ML PREMIX IV (18:47)
== END 2024-03-04 19:34 | disposition home or self-care (01) ==
PROVIDERS: Emergency Provider Emergency Medicine; PCP Nurse Practitioner Family
DX: R56.9 Unspecified convulsions (principal); Z79.899 Other long term (current) drug therapy
CPT/HCPCS: 36415; 80048; 80164; 80175; 80185; 83735; 93005; 96365; 99285; J3475

== ENCOUNTER 2024-08-15 20:37 | Emergency (ER) | payer OTHER, SELFPAY ==
[2024-08-15 20:40] VITALS: BP 138/80; PULSE 90; TEMP 36.7; O2SAT 97; BMI 25.8
--- OUTSIDE RECORDS SUMMARY | 2024-08-15 20:42 | XMS_ITS | CCD ---
Author Organization [facility] Care Team Providers Care Buyer Intern Name Role Phone Arti JACINTO Emeli S Primary Care Provider [phone] HANS GRANADO Referring Unavailab ricky CHI EMELI S Primary Care Unavailable HANS GRANADO Referring Unavailab ricky CHI EMELI S Primary Care Unavailable Unavailable Primary Care Provider Unavailabl e PROVIDER, UNKNOWN Attending Unavailable PROVIDER, UNKNOWN Admitting Unavailable Emeli Chi Primary Care Unavailable Derek Burks Attending Unavailable Derek Burks Admitting Unavailable JEEVAN Chi-Priyank Sainz Norma Primary Care Provider Derek Burks Attending Provider Emeli Chi S Primary Care Provider [phone] EMELI CHI Primary Care Unavailable REGINA, DR BREE Meneses Attending Unavailabl e REGINA, DR BREE Meneses Admitting Unavailabl mariangel TAPIA, DR BREE Meneses Consulting Unavailabl Trinity Angel Consulting Unavailable LALO, JOSIAH Consulting Unavailable LALO, JOSIAH Attending Unavailable LALO, JOSIAH Admitting Unavailable ARTI, EMELI Primary Care Unavailable LALO, JOSIAH Consulting Unavailable LALO, JOSIAH Attending Unavailable LALO, JOSIAH Admitting Unavailable ARTI, EMELI Primary Care Unavailable BRIAN LAM Attending Unavailable SARAI Trujillo BRIAN Admitting Unavailable ARTI, EMELI Primary Care [...] Unavailable ARTI, EMELI S Primary Care Physician Junior Raygoza Attending Unavailable Ramón Carrizales Attending Unavailable MORARI, CHAVEZ Attending Unavailable HANS GRANADO Referring Unavailab le ARTI, EMELI S Primary Care Unavailable CHIRRI, CHAVEZ Admitting Unavailable Arti TRAFFIC INVESTIGATOR, Emeli S Primary Care Provider Arti JACINTO, Emeli S Primary Care Provider [phone] DOUG ELLSWORTH Attending Unavailable ARTI, EMELI S Primary Care Unavailable ANA GARCIA Attending Unavailable ARTI, EMELI S Primary Care Unavailable JOSÉ MIGUEL, SHANDRA Referring Unavailable ARTI, EMELI S Primary Care Unavailable JOSÉ MIGUEL, SHANDRA Referring Unavailable NEME MERCANTE, LEAH Admitting Unavailabl e NEME MERCANTE, LEAH Attending Unavailabl e MARKUSBEL, SHANDRA Referring Unavailable ARTI, EMELI S Primary Care Unavailable WARBEL, SHANDRA Referring Unavailable ARTI, EMELI S Primary Care Unavailable GIOVANI SANCHEZ Admitting Unavailable GIOVANI SANCHEZ Attending Unavailable DEEP ABBB Attending Unavailable ARTI, EMELI S Primary Care Unavailable RADHAANA Attending Unavailable ARTI, EMELI S Primary Care Unavailable ANA GARCIA Attending Unavailable EMELI CHI Primary Care Unavailable ANA GARCIA Attending Unavailable EMELI CHI Primary Care Unavailable Medications Current Medications Medication Drug Class(es) Dates Sig (Normalized) Sig (Original) Acetaminophen (1 source) Start: 08-07-2022 acetaminophen (TYLENOL) tablet 650 mg lamoTRIgine 200 mg oral tablet (20 sources) Mood Stabilizer, [...] table t 200 mg Start: 08-28-2021 End: 01-24-2025 take 1 tablet by mouth twice daily lamoTRIgine (LAMICTAL) 200 mg tablet Indications: Seizure-like activity (HCC) Take 1 tablet by mouth two times a day. 180 tablet 1 07/28/2024 01/24/2025 Active Start: 04-10-2017 End: 08-18-2022 lamotrigine 100 mg oral tabl et BID, Refills(s) 0 Start Date: 04/10/17 Status: Ordered take 1 tablet by kenneth once daily lamoTRIgine (LAMICTAL) 200 mg tablet [...] 4 mg OXcarbazepine 300 mg oral tablet (20 sources) Anti-epileptic Agent Start: 08-11-2022 OXcarbazepine (TRILEPTAL) tablet 600 mg Start: 2022 OXcarbazepine (TRILEPTAL) tablet 150 mg Start: 07-19-2022 OXcarbazepine (TRILEPTAL) 600 MG tablet I tablet 2 times a day 60 tablet 5 07/19/2022 Active Start: 08-28-2021 End: 2022 OXcarbazepine (TRILEPTAL) ta blet 300 mg Start: 04-06-2019 Trileptal Oral , BID, Refills(s) 0 Start Date: 04/06/19 Status: Ordered take 2 tablets by [facility] twice daily OXcarbazepine (TRILEPTAL) 300 mg tablet Take 600 mg by mouth two times a day. 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 with [...] INITIAL ENCOUNTER] Onset: 01-02-2022 Episodic Epilepsy; convulsions (20 sources) Seizure; Translations: [Unspecified convulsions] Onset: 06-11-2022 Episodic Miscellaneous mental health disorders (1 source) Acute insomnia; Translations: [Adjustment insomnia] Onset: 06-06-2021 02-02-2022 Episodic Other aftercare (1 source) Other fci (current) drug therapy; Translations: [OTH CARE HOME CURRENT DRUG THERAPY] Onset: 06-13-2022 Episodic Other injuries and conditions due to external causes (1 source) Unspecified injury of head, initial encounter; Translations: [UNSPECIFIED INJURY HEAD INITIAL ENC] Onset: 01-02-2022 Episodic Results Test Name Value Interpretation Reference Range Facility [facility] 06-02-2024 [facility] Telephone (BOBO) COREY ALONSO III ([id number]) 1995 M Date Time Provider Department 06/02/24 MINERVA ORTEGA During your visit today, we recorded the following information about you: Minerva Ortega LISW 06/02/2024 4:24 PM Signed ADULT LITERACY TEACHER received a consult from provider stating patient told them they cannot afford the PNES workbook, and is looking for assistance with this. ADULT LITERACY TEACHER notes patient had initial assessment with Dr. Garcia and is beginning treatment in June 2024. ADULT LITERACY TEACHER asked admin to send patient a copy of the workbook after confirming with patient the correct address. Will follow to assure this is sent to patient. Carli Villarreal 06/02/2024 4:38 PM Signed Copy of seizure workbook, mailed to patient home address. Tracking # [id number] Allergies As of Date: 06/02/2024 (No Known Allergies) Date Reviewed: 01/29/2024 Reviewed by: Robin Aguilar OCCA - Fully Assessed Reason for Visit: Social Work Services [507] Prescriptions as of 06/02/2024 - lamoTRIgine (LAMICTAL) 200 mg tablet Take [...] a day. 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 Casting Repairer: CHIP Transcribe Date/Time: Feb 18 2024 8:30A Dictated by : VERÓNICA ECHEVARRIA MD This examination was interpreted and the report reviewed and electronically signed by: VERÓNICA ECHEVARRIA MD on Feb 18 2024 8:46AM EST [id number] [facility] Telephone (NE50MN) COREY ALONSO III ([id number]) 1995 M Date Time Provider Department 02/06/24 [...] does not drive Forwarded to [facility] [place] for review/recommendatio n JOSE Garcia Ailis, PA-C [...] Encounter Status:Closed by SKYLA SANCHEZ on 02/06/24 [facility] Telephone (NE50MN) COREY ALONSO III ([id number]) 1995 M Date Time Provider Department 02/06/24 DEEP BABB NE50MN During your visit today, we recorded the following information about you: Emeli Rodriguez 02/06/2024 2:29 PM Signed Medication Concern Person Calling Kimberley Sanders,[facility] Name of medication Lamotrigine Concern [...] encounter of 02/06/2024 Forwarded to [facility] [place] for review/recommendatio n JOSE Garcia Ailis, PA-C [...] is necessary Will await instructions Forwarded to [facility] 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 She would not recommend weaning down. Instead, hold tonight's dose and restart on correct dose of 250 mg twice daily tomorrow morning. TAYLOR Kate Elizabeth, RN 02/06/2024 5:00 PM Signed Spoke with patient/friendYina and provided medication recommendations - they verbalize understanding Snip2Code message sent per their request Spoke with Kimberley Sanders [facility] pharmacist - advised of LTG dose She requests new prescription for LTG 200 mg tablet Patient will receive corrected packets of LTG on Saturday, 02/09 Forwarded to [facility] for prescription processing JOSE Garcia Ailis, PA-C 02/06/2024 5:02 PM Signed The following approved medication requests have been transmitted electronically. Requested Prescriptions Signed Prescriptions Disp Refills lamoTRIgine (LAMICTAL) 200 mg tablet 180 tablet 1 Sig: Take 1 tablet by mouth two times a day. Authorizing Provider: BRENDON HALE PA-C Wilt, Elizabeth, RN 02/07/2024 8:59 AM Signed Spoke with patient - he confirms receipt of Snip2Code message - no present medication concerns - [...] Encounter Status:Closed by SKYLA SANCHEZ on 02/07/24 [facility] 01-31-2024 [facility] Telephone (NE50MN) COREY ALONSO III ([id number]) 1995 M Date Time Provider Department 01/31/24 DEEP BABB NE50MN During your visit today, we recorded the following information about you: BarbieNehal Brooks 01/31/2024 12:52 PM Signed General call : Full name of person calling: Corey Alonso III Relationship to patient: self Phone # : [phone] (mobile) Reason for call: Patient wants to [...] Encounter Status:Closed by SKYLA SANCHEZ on 01/31/24 [facility] CNOVon 01-29-2024 CNOV Office Visit (NE50MN) COREY ALONSO III ([id number]) 1995 M Date Time Provider Department 01/29/24 3:30 PM DEEP BABB NE50MN During your visit today, we recorded the following information about you: Pulse Blood pressure Weight Height 81/minute 133/82 78.5 kg 1.753 m Deep Babb MD 02/02/2024 10:23 PM Signed [facility] Patient Name: Corey Alonso III Date of : 1995 ESTABLISHED EPILEPSY CLINIC NOTE 01/29/2024 3:30 PM Reason for Visit: Established Patient and Follow Up Clinical Summary: Mr. Alonso is a 28 year old right-handed male seen in [facility]. 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 Normal [facility] [id number] 01-03-2024 [id number] HNO ID: [id number] Author: LEONOR GONZALES, JOSE Service: ? Author Type: Registered Nurse Type: [id number] Filed: 01/03/2024 06:47 Note Text: Patient's sister arrived to take patient home. Night PA in prior to go over discharge with patient. RN went over discharge instructions, returned home medications from lock box and made sure patient had home belongings together. IV removed and opportunity for questions provided. [facility] CNDSon 01-03-2024 CNDS HNO ID: [id number] Author: GIOVANI ASNCHEZ MD, PhD Service: Neurology Adult Epilepsy Author Type: Nurse Practitioner Type: Discharge Summary Filed: 01/03/2024 11:23 Note Text: Attestation signed by Giovani Sanchez MD, PhD at 01/03/2024 11:23 AM Giovani Sanchez MD PhD Staff, Epilepsy Center [place], [place] DISCHARGE SUMMARY PATIENT NAME: Corey Alonso III [...] year old male who presented to the [facility] EMU on 12/30/2023 for diagnosis. Medications were [...] MRIUMN Mn U Bldg 03/05/2024 10:00 AM Doug Ellsworth, INVESTIGATOR UTILITY BILL COMPLAINTS.TRAFFIC INVESTIGATOR NE50MN Mn S Bldg 04/09/2024 9:00 AM Neida Kee, PhD EPIN Mn S Bldg Please follow up with your Epileptologist. Dr. Deep Babb [address] [place] [address] The patient's risk for 30-day readmission is determined using the following contributing factors: The patient's risk for 30-day readmission is (more content not included)... Normal [facility] SOCIAL WORKon 01-01-2024 SOCIAL WORK HNO ID: [id number] Author: KARLI SANTORO LSW Service: Social Work Author Type: Casting Operator Helper Type: Social Work Filed: 01/02/2024 09:42 Note [...] 01, 2024 TIME: 4:19 PM PAGER/CONTACT #: [phone] [facility] SOCIAL WORKon 12-31-2023 SOCIAL WORK HNO ID: [id number] Author: KARLI SANTORO LSW Service: Social Work Author Type: Casting Operator Helper Type: Social Work Filed: 01/01/2024 09:44 Note Text: EMU SOCIAL WORK ASSESSMENT SERVICE DATE: 12/31/2023 SERVICE TIME: 1:05 PM REASON FOR CONSULT: Assessment secondary to EMU admission HPI: Corey Rothcoby EPIFANIO 28 year old right handed male who [...] mild developmental delay, he was treated for TRACTOR TRAILER DRIVER infection with initial presentation but patient/family unsure [...] reared by his mother and father in [place]. He has one biological sister. Patient identifies [...] very frustrated by this, and being a sound person is his dream job. 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 PSYCHIATRIC HISTORY: Patient identifies having past diagnoses [...] voices feeling jealous whenever he sees a sound person, because he wonders why they are able [...] time. COLLAT (more content not included)... Normal [facility] 10OH-Carbazepine SerPl-mCnco n 12-30-2023 10-Hydroxycarbazepine [Mass/Vol] 13.6 ug/mL Normal 3.0-35.0 [facility] Comment on above: Order Comment: Speci men Type: BLOOD SPECIMENOrdering Facility: [facility] Address: [address] [place] [address] Result Comment: This test was developed and its performance characteristics determined by [facility] [place] (-[facility]). It has not been cleared or approved by the FDA. -[facility] is regulated under CLIA as qualified to perform high-complexity testing. This test is used for clinical purposes. It should not be regarded as investigational or for research. Performed By: #### 3 1019-3, 6948-4 ####[facility] [id number] [place] [address] [place] CBC W Auto Differential pane l (Bld)on 12-30-2023 Basophils (Bld) [#/Vol] 0.04 10*3/uL Normal <0.11 [facility] Comment on above: Order Comment: Speci men Type: BLOOD SPECIMENOrdering Facility: [facility] Address: [address] [place] [address] Performed By: #### 5 7021-8 ####[facility] [id number] [place] [address] [place] Basophils/100 WBC (Bld) 0.7 % Normal [facility] Comment on above: Order Comment: Speci men Type: BLOOD SPECIMENOrdering Facility: [facility] Address: [address] [place] [address] Performed By: #### 5 7021-8 ####[facility] [id number] [place] [address] [place] Differential cell count method Nom (Bld) Auto Normal [facility] Comment on above: Order Comment: Speci men Type: BLOOD SPECIMENOrdering Facility: [facility] Address: [address] [place] [address] Performed By: #### 5 7021-8 ####[facility] [id number] [place] [address] [place] Eosinophils (Bld) [#/Vol] 0.07 10*3/uL Normal <0.46 [facility] Comment on above: Order Comment: Speci men Type: BLOOD SPECIMENOrdering Facility: [facility] Address: [address] [place] [address] Performed By: #### 5 7021-8 ####[facility] [id number] [place] [address] [place] Eosinophils/100 WBC (Bld) 1.3 % Normal [facility] Comment on above: Order Comment: Speci men Type: BLOOD SPECIMENOrdering Facility: [facility] Address: [address] [place] [address] Performed By: #### 5 7021-8 ####[facility] [id number] [place] [address] [place] Erythrocyte distribution width (RBC) [Ratio] 12.3 % Normal 11.5-15.0 [facility] Comment on above: Order Comment: Speci men Type: BLOOD SPECIMENOrdering Facility: [facility] Address: [address] [place] [address] Performed By: #### 5 7021-8 ####[facility] [id number] [place] [address] [place] Hematocrit (Bld) [Volume fraction] 44.7 % Normal 39.0-51.0 [facility] Comment on above: Order Comment: Speci men Type: BLOOD SPECIMENOrdering Facility: [facility] Address: [address] [place] [address] Performed By: #### 5 7021-8 ####[facility] [id number] [place] [address] [place] Hemoglobin (Bld) [Mass/Vol] 15.6 g/dL Normal 13.0-17.0 [facility] Comment on above: Order Comment: Speci men Type: BLOOD SPECIMENOrdering Facility: [facility] Address: [address] [place] [address] Performed By: #### 5 7021-8 ####[facility] [id number] [place] [address] [place] Immature granulocytes (Bld) [#/Vol] 10*3/uL Normal <0.10 [facility] Comment on above: Order Comment: Speci men Type: BLOOD SPECIMENOrdering Facility: [facility] Address: [address] [place] [address] Performed By: #### 5 7021-8 ####[facility] [id number] [place] [address] [place] Immature granulocytes/100 WBC (Bld) 0.4 % Normal [facility] Comment on above: Order Comment: Speci men Type: BLOOD SPECIMENOrdering Facility: [facility] Address: [address] [place] [address] Performed By: #### 5 7021-8 ####[facility] LABIA [id number] [place] [address] [place] Lymphocytes (Bld) [#/Vol] 1.97 10*3/uL Normal 1.00-4.0 0 [facility] Comment on above: Order Comment: Speci men Type: BLOOD SPECIMENOrdering Facility: [facility] Address: [address] [place] [address] Performed By: #### 5 7021-8 ####[facility]IA [id number] [place] [address] [place] Lymphocytes/100 WBC (Bld) 36.1 % Normal [facility] Comment on above: Order Comment: Speci men Type: BLOOD SPECIMENOrdering Facility: [facility] Address: [address] [place] [address] Performed By: #### 5 7021-8 ####[facility] [id number] [place] [address] [place] MCH (RBC) [Entitic mass] 28.6 pg Normal 26.0-34.0 [facility] Comment on above: Order Comment: Speci men Type: BLOOD SPECIMENOrdering Facility: [facility] Address: [address] [place] [address] Performed By: #### 5 7021-8 ####[facility]CLIA [id number] [place] [address] [place] MCHC (RBC) [Mass/Vol] 34.9 g/dL Normal 30.5-36.0 [facility] Comment on above: Order Comment: Speci men Type: BLOOD SPECIMENOrdering Facility: [facility] Address: [address] [place] [address] Performed By: #### 5 7021-8 ####[facility] LABIA [id number] [place] [address] [place] MCV (RBC) [Entitic vol] 82.0 fL Normal 80.0-100.0 [facility] Comment on above: Order Comment: Speci men Type: BLOOD SPECIMENOrdering Facility: [facility] Address: [address] [place] [address] Performed By: #### 5 7021-8 ####[facility] [id number] [place] [address] [place] Monocytes (Bld) [#/Vol] 0.40 10*3/uL Normal <0.87 [facility] Comment on above: Order Comment: Speci men Type: BLOOD SPECIMENOrdering Facility: [facility] Address: [address] [place] [address] Performed By: #### 5 7021-8 ####[facility]IA [id number] [place] [address] [place] Monocytes/100 WBC (Bld) 7.3 % Normal [facility] Comment on above: Order Comment: Speci men Type: BLOOD SPECIMENOrdering Facility: [facility] Address: [address] [place] [address] Performed By: #### 5 7021-8 ####[facility] [id number] [place] [address] [place] Neutrophils (Bld) [#/Vol] 2.96 10*3/uL Normal 1.45-7.5 0 [facility] Comment on above: Order Comment: Speci men Type: BLOOD SPECIMENOrdering Facility: [facility] Address: [address] [place] [address] Performed By: #### 5 7021-8 ####[facility] [id number] [place] [address] [place] Neutrophils/100 WBC (Bld) 54.2 % Normal [facility] Comment on above: Order Comment: Speci men Type: BLOOD SPECIMENOrdering Facility: [facility] Address: [address] [place] [address] Performed By: #### 5 7021-8 ####[facility] [id number] [place] [address] [place] Nucleated RBC (Bld) [#/Vol] 10*3/uL Normal <0.01 [facility] Comment on above: Order Comment: Speci men Type: BLOOD SPECIMENOrdering Facility: [facility] Address: [address] [place] [address] Performed By: #### 5 7021-8 ####[facility] [id number] [place] [address] [place] Nucleated RBC/100 WBC (Bld) [Ratio] 0.0 /100 WBC Normal [facility] Comment on above: Order Comment: Speci men Type: BLOOD SPECIMENOrdering Facility: [facility] Address: [address] [place] [address] Performed By: #### 5 7021-8 ####[facility] [id number] [place] [address] [place] Platelet mean volume (Bld) [Entitic vol] 9.6 fL Normal 9.0-12.7 [facility] Comment on above: Order Comment: Speci men Type: BLOOD SPECIMENOrdering Facility: [facility] Address: [address] [place] [address] Performed By: #### 5 7021-8 ####[facility] [id number] [place] [address] [place] Platelets (Bld) [#/Vol] 187 10*3/uL Normal 150-400 [facility] Comment on above: Order Comment: Speci men Type: BLOOD SPECIMENOrdering Facility: [facility] Address: [address] [place] [address] Performed By: #### 5 7021-8 ####[facility] [id number] [place] [address] [place] RBC (Bld) [#/Vol] 5.45 10*6/uL Normal 4.20-6.00 [facility] Comment on above: Order Comment: Speci men Type: BLOOD SPECIMENOrdering Facility: [facility] Address: [address] [place] [address] Performed By: #### 5 7021-8 ####[facility] [id number] [place] [address] [place] WBC (Bld) [#/Vol] 5.46 10*3/uL Normal 3.70-11.00 [facility] Comment on above: Order Comment: Speci men Type: BLOOD SPECIMENOrdering Facility: [facility] Address: [address] [place] [address] Performed By: #### 5 7021-8 ####[facility] [id number] [place] [address] [place] CNOVon 12-30-2023 CNOV Office Visit (NE50MN) COREY ALONSO III ([id number]) 1995 Date Time Provider Department 12/30/23 8:00 AM DEEP BABB NE50MN During your visit today, we recorded the following information about you: Pulse Blood pressure Weight Height 105/minute 148/86 77.1 kg 1.727 m Deep Babb MD 12/30/2023 11:45 PM Signed [facility] [place] [facility] Patient Name: Corey Alonso III Date of : 1995 Referring Provider: Shandra Berman [address] [facility] [address] INITIAL EPILEPSY CLINIC NOTE 12/30/2023 8:00 AM CHIEF COMPLAINT: New Patient HISTORY OF PRESENT ILLNESS Mr. Alonso is a 28 year old right-handed male seen in [facility] for initial [...] testing was not completed); was transferred to [facility]; was treated with IV medication (Keppra) and [...] evaluated in several facilities, most recently in [place], where he was told his episodes were [...] No Seizu (more content not included)... Normal [facility] metabolic 2000 panelon 12-30-2023 Albumin [Mass/Vol] 4.3 g/dL Normal 3.9-4.9 [facility] Comment on above: Order Comment: Speci men Type: BLOOD SPECIMENOrdering Facility: [facility] Address: [address] [place] [address] Performed By: #### 3 016-3, 99525-2, 09346-7, 2776- ####[facility] LABCLIA [id number] [place] [address] [place] ALP [Catalytic activity/Vol] 111 U/L Normal 38-113 [facility] Comment on above: Order Comment: Speci men Type: BLOOD SPECIMENOrdering Facility: [facility] Address: [address] [place] [address] Performed By: #### 3 016-3, 67704-0, 29933-0, 2776-07 ####[facility] LABCLIA [id number] [place] [address] [place] ALT [Catalytic activity/Vol] 14 U/L Normal 10-54 [facility] Comment on above: Order Comment: Speci men Type: BLOOD SPECIMENOrdering Facility: [facility] Address: [address] [place] [address] Performed By: #### 3 016-3, 46130-8, 96963-2, 2776-07 ####[facility] LABCLIA [id number] [place] [address] [place] Anion gap [Moles/Vol] 12 mmol/L Normal 9-18 [facility] Comment on above: Order Comment: Speci men Type: BLOOD SPECIMENOrdering Facility: [facility] Address: [address] [place] [address] Performed By: #### 3 016-3, 96908-4, 11955-9, 2776-07 ####[facility] LABCLIA [id number] [place] [id number] [place] AST [Catalytic activity/Vol] 14 U/L Normal 14-40 [facility] Comment on above: Order Comment: Speci men Type: BLOOD SPECIMENOrdering Facility: [facility] Address: [address] [place] [address] Performed By: #### 3 016-3, 58361-6, , 2776-07 ####[facility] LABCLIA [id number] [place] [address] [place] Bilirubin [Mass/Vol] 0.3 mg/dL Normal 0.2-1.3 [facility] Comment on above: Order Comment: Speci men Type: BLOOD SPECIMENOrdering Facility: [facility] Address: [address] [place] [address] Performed By: #### 3 016-3, 50691-6, , 2776-07 ####[facility] LABCLIA [id number] [place] [address] [place] Calcium [Mass/Vol] 9.7 mg/dL Normal 8.5-10.2 [facility] Comment on above: Order Comment: Speci men Type: BLOOD SPECIMENOrdering Facility: [facility] Address: [address] [place] [address] Performed By: #### 3 016-3, 54996-2, , 2776-07 ####[facility] LABCLIA [id number] [place] [address] [place] Chloride [Moles/Vol] 103 mmol/L Normal 97-105 [facility] Comment on above: Order Comment: Speci men Type: BLOOD SPECIMENOrdering Facility: [facility] Address: [address] [place] [address] Performed By: #### 3 016-3, 35883-1, , 2776-07 ####[facility]CLIA [id number] [place] [id number] [place] CO2 [Moles/Vol] 24 mmol/L Normal 22-30 [facility] Comment on above: Order Comment: Speci men Type: BLOOD SPECIMENOrdering Facility: [facility] Address: [address] [place] [address] Performed By: #### 3 016-3, 06535-3, , 2776-07 ####[facility] LABCLIA [id number] [place] [address] [place] Creatinine [Mass/Vol] 1.04 mg/dL Normal 0.73-1.22 [facility] Comment on above: Order Comment: Speci men Type: BLOOD SPECIMENOrdering Facility: [facility] Address: [address] [place] [address] Performed By: #### 3 016-3, 85522-6, , 2776-07 ####[facility] LABCLIA [id number] [place] [address] [place] Creatinine and Glomerular filtration rate.predicted panel (S/P/Bld) 101 mL/min/1.73m??? Normal >=60 [facility] Comment on above: Order Comment: Speci men Type: BLOOD SPECIMENOrdering Facility: [facility] Address: [address] [place] [address] Result Comment: Michelle mated Glomerular Filtration Rate [...] actual GFR. Performed By: #### 3 016-3, 43617-8, , 2776-07 ####[facility] LABCLIA [id number] [place] [id number] [place] Glucose [Mass/Vol] 107 mg/dL High 74-99 [facility] Comment on above: Order Comment: Speci men Type: BLOOD SPECIMENOrdering Facility: [facility] Address: [address] [place], [place] [address] [place] [address] Result Comment: The [place] Diabetes Association (ADA) provides guidance for cutoff [...] Standards of Medical Care in Diabetes 2016, [place] Diabetes Association. Diabetes Care. 2016.39(Suppl 1). Performed By: #### 3 016-3, 19501-0, , 2776-07 ####[facility] LABCLIA [id number] [place] [address] [place] Potassium [Moles/Vol] 3.9 mmol/L Normal 3.7-5.1 [facility] Comment on above: Order Comment: Speci men Type: BLOOD SPECIMENOrdering Facility: [facility] Address: [address] [place] [address] Performed By: #### 3 016-3, 86376-3, , 2776-07 ####[facility]CLIA [id number] [place] [address] [place] Protein [Mass/Vol] 6.7 g/dL Normal 6.3-8.0 [facility] Comment on above: Order Comment: Speci men Type: BLOOD SPECIMENOrdering Facility: [facility] Address: [address] [place] [id number] Performed By: #### 3 016-3, 99746-9, , 2776-07 ####[facility] LABCLIA [id number] [place] [id number] [place] Sodium [Moles/Vol] 139 mmol/L Normal 136-144 [facility] Comment on above: Order Comment: Speci men Type: BLOOD SPECIMENOrdering Facility: [facility] Address: [address] [place] [address] Performed By: #### 3 016-3, 00137-6, , 2776-07 ####[facility] LABCLIA [id number] [place] [address] [place] Urea nitrogen [Mass/Vol] 13 mg/dL Normal 9-24 [facility] Comment on above: Order Comment: Speci men Type: BLOOD SPECIMENOrdering Facility: [facility] Address: [address] [place] [address] Performed By: #### 3 016-3, 86268-3, , 2776-07 ####[facility] LABCLIA [id number] [place] [address] [place] HISTORY PHYSICALon HISTORY PHYSICAL HNO ID: [id number] Author: GIOVANI SANCHEZ MD, PhD Service: Neurology Adult Epilepsy Author Type: Physician Type: H&P Filed: 12/31/2023 12:28 Note Text: NEURO EPILEPSY ADMIT NOTE SERVICE DATE: 12/30/2023 SERVICE TIME: 10:14 AM NIGHT AND WEEKEND COVERAGE: After 5 pm and over the weekends, please page [phone] to contact the epilepsy resident/fellow/prov ider engineering manager electronics ATTENDING PHYSICIAN: Dr. Giovani Sanchez [facility] 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 Normal [facility] Magnesium SerPl-mCncon 12-29 Magnesium [Mass/Vol] 2.0 mg/dL Normal 1.7-2.3 [facility] Comment on above: Order Comment: Speci men Type: BLOOD SPECIMENOrdering Facility: [facility] Address: [address] [place] [address] Performed By: #### 3 016-3, 19333-4, 43207-2, 2777-1 ####[facility] LABCLIA [id number] [place] [address] [place] NURSING PROGon 12-30-2023 NURSING PROG HNO ID: [id number] Author: MICAH PEÑA RN Service: ? Author Type: Registered Nurse Type: Nursing Progress Note Filed: 12/30/2023 12:15 Note Text: [facility] admitted to [facility] oriented to room/unit. Safety and sz precautions initiated. Will continue to monitor and provide support. Normal [facility] PT panel Coag (PPP)on 2023 INR Coag (PPP) [Relative time] 1.1 {INR} Normal 0.9-1.3 [facility] Comment on above: Order Comment: Ngoc liu Type: BLOOD SPECIMENOrdering Facility: [facility] Address: [address] [place] [address] Result Comment: Idania min K Antagonist (VKA) Therapeutic Range: INR 2 to 3 (Target INR of 2.5) Note: For patients treated with VKA drugs, such as warfarin, the [place] College [employer]icians 2012 Guideline recommends [...] GH, et al. Chest 2012, 141:7S-47S Nickie RA, et al. JAC 2017, 70: 252-289 Performed By: #### 3 4528-0, 05086-3 ####[facility] LABIA [id number] [place] [address] [place] PT Coag (PPP) [Time] 11.4 s Normal 9.7-13.0 [facility] Comment on above: Order Comment: Ngoc liu Type: BLOOD SPECIMENOrdering Facility: [facility] Address: [address] [place] [address] Performed By: #### 3 4528-0, 60729-7 ####[facility] LABIA [id number] [address] [address] [place] Phosphate SerPl-mCncon 12-29 Phosphate [Mass/Vol] 4.1 mg/dL Normal 2.7-4.8 [facility] Comment on above: Order Comment: Speci men Type: BLOOD SPECIMENOrdering Facility: [facility] Address: [address] [place] [address] Performed By: #### 3 016-3, 11039-7, 31559-3, 2777-1 ####[facility] LABCLIA [id number] [place] [address] [place] TOXICOLOGY SCREEN, ROUTINE U RINEon 12-30-2023 Amphetamines Confirm (U) [Mass/Vol] Negative Normal Negative [facility] Comment on above: Order Comment: Speci men Type: URINE SPECIMENOrdering Facility: [facility] Address: [address] [place] [address] Result Comment: Cuto ff threshold at 1000 ng/mL. Performed By: #### U TOX2 ####[facility] LABCLIA [id number] [place] [address] [place] BARBITURATES, URINE Negative Normal Negative [facility] Comment on above: Order Comment: Speci men Type: URINE SPECIMENOrdering Facility: [facility] Address: [address] [place] [address] Result Comment: Cuto ff threshold at 200 ng/mL. Performed By: #### U TOX2 ####[facility] LABCLIA [id number] [place] [address] [place] BENZODIAZEPINES, UR Negative Normal Negative [facility] Comment on above: Order Comment: Speci men Type: URINE SPECIMENOrdering Facility: [facility] Address: [address] [place] [address] Result Comment: Cuto ff threshold at 200 ng/mL. Performed By: #### U TOX2 ####[facility] LABCLIA [id number] [place] [address] [place] Cannabinoids Screen Ql (U) Negative Normal Negative [facility] Comment on above: Order Comment: Speci men Type: URINE SPECIMENOrdering Facility: [facility] Address: [address] [place] [address] Result Comment: Cuto ff threshold at 50 ng/mL. Performed By: #### U TOX2 ####[facility] LABCLIA [id number] [place] [address] [place] Cocaine Ql (U) Negative Normal Negative [facility] Comment on above: Order Comment: Speci men Type: URINE SPECIMENOrdering Facility: [facility] Address: [address] [place] [address] Result Comment: Cuto ff threshold at 300 ng/mL. Performed By: #### U TOX2 ####[facility] LABCLIA [id number] [place] [address] [place] Ethanol (U) [Mass/Vol] <11 Normal <11 [facility] Comment on above: Order Comment: Speci men Type: URINE SPECIMENOrdering Facility: [facility] Address: [address] [place] [address] Performed By: #### U TOX2 ####[facility] LABCLIA [id number] [place] [address] [place] Opiates Screen Ql (U) Negative Normal Negative [facility] Comment on above: Order Comment: Speci men Type: URINE SPECIMENOrdering Facility: [facility] Address: [address] [place] [address] Result Comment: Cuto ff threshold at 300 ng/mL. Performed By: #### U TOX2 ####[facility] LABCLIA [id number] [place] [address] [place] oxyCODONE cutoff Screen (U) [Mass/Vol] Negative Normal Negative [facility] Comment on above: Order Comment: Speci men Type: URINE SPECIMENOrdering Facility: [facility] Address: [address] [place] [address] Result Comment: Cuto ff threshold at 100 ng/mL. Performed By: #### U TOX2 ####[facility] LABCLIA [id number] [place] [address] [place] Phencyclidine Ql (U) Positive Abnormal Negative [facility] Comment on above: Order Comment: Speci men Type: URINE SPECIMENOrdering Facility: [facility] Address: [address] [place] [address] Result Comment: Cuto ff threshold at 25 ng/mL. Performed By: #### U TOX2 ####[facility] LABCLIA [id number] [place] [address] [place] TSH SerPl-aCncon 12-30-2023 TSH Qn 1.600 m[IU]/L Normal 0.270-4.200 [facility] Comment on above: Order Comment: Speci men Type: BLOOD SPECIMENOrdering Facility: [facility] Address: [address] [place] [address] Performed By: #### 3 016-3, 92208-5, 68981-5, 2777-1 ####[facility] LABIA [id number] [place] [address] [place] aPTT PPPon 12-30-2023 aPTT Coag (PPP) [Time] 31.1 s Normal 23.0-32.4 [facility] Comment on above: Order Comment: Speci men Type: BLOOD SPECIMENOrdering Facility: [facility] Address: [address] [place] [address] Performed By: #### 3 4528-0, 98227-2 ####[facility] LABIA [id number] [place] [address] [place] lamoTRIgine SerPl-mCncon lamoTRIgine [Mass/Vol] 7.6 ug/mL Normal 1.0-13.0 [facility] Comment on above: Order Comment: Speci men Type: BLOOD SPECIMENOrdering Facility: [facility] Address: [address] [place] [address] Result Comment: This test was developed and its performance characteristics determined by [facility]'s [facility] [place] ([facility]). It has not been cleared or approved by the FDA. [facility] is regulated under CLIA as qualified to perform high-complexity testing. This test is used for clinical purposes. It should not be regarded as investigational or for research. Performed By: #### 3 1019-3, 6948-4 ####[facility] LABCLIA [id number] [address] CNCONon 11-12-2023 CNCON Consults (NE50MN) COREY ALONSO III ([id number]) 1995 Date Time Provider Department 11/12/23 KELLY SANDOVAL NE50MN During your visit today, we recorded the following information about you: Shandra Berman APRN.TRAFFIC INVESTIGATOR 11/13/2023 8:26 AM Signed [facility] Review of Records Patient: Corey Alonso III Address: [address] [place] [address] Impression: Review of records for Corey Alonso [...] asthma, anxiety, depression PRIOR EVALUATIONS: [facility] [address] [place] [address] EEG ([facility], 11/28/2021): Normal EEG with no focal slowing or epileptiform activity. VEEG ([facility], 08/07/2022): During this day of recording no events were recorded. The interictal EEG was normal. Monitoring was continued in order to record the patient's typical events. (Only one day of monitoring was recorded) MRI brain wo contrast ([facility], 11/28/2021): Motion artifact mildly degrades the images. No acute brain parenchymal abnormality KALIA Recommendations: - Admit to EMU for VEEG monitoring, diagnostic evaluation Location: [facility] [place] - Visit with Dr. Greenberg prior to admission - Additional testing to be considered by epilepsy clinicians Signed: Shandra Berman APRN.TRAFFIC INVESTIGATOR November 12, [address] Sandoval for review and recommendations. MD Recommendations (as discussed with Dr. Sandoval): - Please proceed with the above plan. ===== Please route this encounter to the EMU Scheduling Pool ( P EMU ) or PMU Scheduling Pool ( P PMU ) through LOS AND Follow up ===== PHASE 1.0 AND 1.5 ORDER SYNOPSIS Patient: Corey Alonso III ([id number]) Best contact number: [phone] Insurance: Payor: [place] / Plan: ANITHA MENDEZ MEDICAID / Product Type: Medicaid / Scheduling Team: Please call for adult patients: Tigist Ruano ([phone]) Sarah Solo ([phone]) Omega Ramos ([phone]) Ivory Wan([phone]) Eulalia Mittal([phone] ) Please call for pediatric patients: Ivory Wan ([phone]) Tigist Ruano ([phone]) Sarah Solo ([phone]) Omega Ramos ([phone]),Luther Mittal([phone] ) 11/13/2023 -- Admission Type EMU Adult Number of Days requested [address] [place] [address] Admit Priority Routine 11/13/2023 PURPOSE Patient Being [...] Diagnosis:Seizure (HCC) [R56.9] Order(s):EPIL EEG LEAD PLACEMENT [[id number]] Order #: [id number]: 1 FUTURE EPIL VEEG ADMIT TO EMU/PMU [[id number]] Order #: [id number]: 1 Prescriptions as of 11/13/2023 - OXcarbazepine (TRILEPTAL) 300 mg tablet Take 300 mg by mouth twice daily. - lamoTRIgine (LAMICTAL) 200 mg tablet Take 200 mg by mouth once daily. Problem List As Of Da (more content not included)... Normal [facility] Terence 11-12-2023 MICK Telephone (NE50MN) JESSICACOREY Keron GODFREY ([id number]) 1995 M Date Time Provider Department 11/12/23 KELLY SANDOVAL NE50MN During your visit today, we recorded the following information about you: VanePatricia modin 11/12/2023 3:01 PM Signed [facility] Initial Intake Interview November 12, 2023 2:53 PM Caller: Corey Relationship to pt: Self ===== Patient name: Corey Alonso III Age: [age] year old Address: [address] [place] [address] (home) Insurance: Payor: [place] / Plan: [facility] MEDICAID / Product Type: Medicaid / Referred by: Self (word of mouth) Referring to: Dr. Greenberg Reason for Evaluation: further evaluation and treatment Previously evaluated at: [place] [address] [place] [address] Fax: N/A ===== Age AND date of [...] or No Date Facility EEG Yes 2021 [facility] Video EEG Yes 2021 [facility] MRI brain Yes [address] [facility] [address] brain No fMRI brain No [...] Future Appointment [256] Cmt: [place], [place] Prescriptions as of 11/12/2023 - OXcarbazepine (TRILEPTAL) 300 mg tablet Take 300 mg by mouth twice daily. - lamoTRIgine (LAMICTAL) 200 mg tablet Take 200 mg by mouth once daily. 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 Encounter Status:Closed by EULALIA MITTAL on 11/12/23 Normal [facility] Consent for Treatmenton Consent for Treatment [id number] 30 [id number] #1.00CD:127 Normal [facility] Discharge Instructionson Discharge Instructions [id number] 1#1.00CD:127 Normal [facility] ED Clinical Summaryon 2022 ED Clinical Summary [address] [address] ED Clinical Summary Person Information Name: COREY ALONSO III [place] Age: 27 Years : 1995 Sex: Male Language: Kinyarwanda PCP: EMELI CHI CNP Marital Status: Phone: [phone] Visit Id: Visit Reason: Wound reevaluation with [...] 03/31/2023 17:04:18 03/31/2023 17:04:18 03/31/2023 17:04:18 ADDRESS: [address] [place] [phone] PHYS DOC NOTES: MEDICAL INFORMATION: Prescriptions Given: Medications to Continue with No Changes Other Medications lamotrigine (lamotrigine 100 mg oral tablet) 2 times a day. oxcarbazepine (Trileptal) By Mouth 2 times a day. PATIENT EDUCATION INFORMATION: Instructions: Wound Dehiscence Follow up: With: Address: When: EMELI CHI [address] [facility] [place] [address] [phone] Business (1) In 3 days 04/03/2023 Comments: [...] sutures are removed. DIAGNOSIS: Wound dehiscence Normal [facility] ED Note-Physicianon 03-31-20 ED Note-Physician Basic Information Time Seen: Ramón Carrizales DO 03/31/2023 16:48 Chief Complaint Had stitches at [place] 2 days ago on L thumb. States [...] medications Follow-up With When Contact Information EMELI ARTI In 3 days 04/03/2023 EDT [address] [facility] [place] [address] [phone] Business (1) Additional Instructions: Call the office [...] Results No qualifying data available. Normal [facility] Comment on above: Result Comment: Elec tronically [...] these instructions at home: Medicines ? Take hdoi-iqi-ixbyknb and prescription medicines only as told by [...] and water are not available, use hand building carpenter. ? Gently wash the wound area with [...] Revised: 12 (more content not included)... Normal [facility] ED Patient Summaryon 023 ED Patient Summary [place] [id number] Patient Discharge Instructions Person Information Name: COREY ALONSO III Age: 27 Years Arrival Date: 03/31/2023 16:41:41 Discharge Diagnosis: Wound dehiscence Primary Care Physician: EMELI CHI CNP Provider Information Primary Provider: Ramón Carrizales DO Advanced Cosmetician:Mireya The exam and treatment you received in the Emergency Department were for an urgent problem and are not intended as complete care. It is important that you follow up with a doctor, nurse practitioner, or physician?s sales operations assistant for ongoing care. If your symptoms [...] With: Address: When: EMELI CHI [address] [facility] [address] [phone] Business (1) In 3 days 04/03/2023 Comments: [...] opioids can be used to help relieve ecmzrjii-op-emfjay pain and are often prescribed following a [...] ? Stor (more content not included)... Normal [facility] EMS Documentationon 10-10-19 EMS Documentation Please click on link to see report pdfCD:[id number] wIeVNRpEyj7BPBkQgNYQ kSndVPUwaU58uxDNvrFJ bWEJ9DzKjCZWqQKE5JgB wIFIgMiAw EBZmKHB1GSFrMDIzWBT8 PGEiOXApC2Djo6ZAu1qh FD0kUGUmTBB9JDQsMMA1 JWIuDO0yY9OwnIYw MTAwNCAwIFIvSUQgMTAw WFQpFOXsXKPjxOCCh9ps DU9lPTOlHSS7UIKqALM1 QBCcXX0tMGmlLD6v G1PrrfAoaKL8SfCoKZYR G4Klo208mmWlpqp1N4Kt dF9aH6TuQ6S3SH9SGcEg OZz1HGGzWy7+L0Zv viI6LV0POXJvSGetMSCv Qe6MOBXtAJg8NKKcEg4N SSAsPYegQUZgIb5TRICm ROJrDNMTC2EFCJDr NSAwIFI+Ae0Iwn8zP8L5 Wq2SMHLlDNK9kP1kKQf3 H1H4GAXgHPXdQDSvGUTD G6lLJebyR8RaAHV2 NiAwIFI+Jy3Kq3NsuBRh DN8JgTV4O2URGLLmhyUa AXHnO9X3qHFtTNRfAZ1N PWRcA3Q+PgplbmRv JcjYXkJxBI2cfgv1XU8J QZ6zzUhuEvC6XVD+PnN0 oqNiiAieD2WxQBQwPGVv AGBqoqnsAZF6WZZy ZRhgOzb4VQ08KGPxhhZO OsqfSBGbO43IRGBoUvq3 DNP1KkPgUI46HJNiPWlf OoSaMWG2UT0iVFQg Lzi8ARXnVad5ZSNxPrHS FEa6MfE2KXE1HY7vEWJu Odz8IYJpPlu7HEMcHoKH SLLnZip7YeJ0KKH9 KiBwVR63WHKrASoqHeSj HVI6APY4HeJvYAZjCzTa hzDODdleEMN2VZNkPtMk NX02WWIjFVKbguCB Ibr0KVKoOoMwBke9AsQ5 BBVaKdJpCPE8WOIaTuBN TA62PUhwNAMgbvwbBY30 RCL3TNBvGHBoVZnv MjUgLTEyIHJlCmYKMCAg j2ZxRsAkQsx0YKK0Po9b NSAyODcuMjUgLTAuNzUg cmUKZgowLjkxOCAg l9YlKlG8SRF4KHWzHVPj ODcuMjUgLTEyIHJlCmYK ZHJph7JzEvN3RXH8BPMr UyKtTua8DcP6RI3y Bff0SAEfObTQEKKrZrAk QlJ7RSR2EzVgMX98RLOs CQxqFlYtZKM3RT31EYJ8 HiSsMV02DELhHVqy LoAcSVZ6GD0dROXtNxl0 GJ57VB63YMMnHwWWABb4 PyL1AZR0EK5sQWIjJxb8 JN07KR50ABLvNiOD NI90CSwmPFKrvbalUJ14 KMV7AVspKSM6PvEtSANq KDMrazLXQkjfRAPsX79C VNVkPkIfAdR4UqC3 QHV2AB19DH6eCbm4ESYp OkYEXGW7YcIkFqR4IGVw Bh9uVKTyHR83SBTiLMgk TaX0Mx30MBR6YB6w NSAxMTYuMjUgLTAuNzUg xaQFSzn8SdiuBOW1EuQb UQ31HQFuCJOfPHUsOZce QtV1StZ8RtPeAK35 NSAtNTUuNSByZQpmCjAu VOS4GKGmY17EFHB0RtC4 GAQoMD3tCSLlAECeCmWp LTEyIHJlCmYKMCAg n6IyVhP3ZX5wNBP9RxIb TOD4Iie6KC8rDwj4DAYo EpHMGYJuEAdhSgt2OWR8 UoBrFR30YCToGXxu KbRoVFZtIkZ5MgRqSTCo AnCkazMYFybdFXD6ShNt KbPsCU50ULMsEvViCMYu WLchKoQ9UW3jVGK0 NqSnZxLcYS58GDIdHjJq PDQbTXkaNsWpRSI8NQYs T60EGEUfAcCkFEddSOM8 OR10YC5nSwIwOExn IcFeYAJjlutuBX10TTX0 PKjdItEbWPf5ZbWoWTSx MzHwxrWAVsqzLEW3Opic ThKdSEl1VT1nTue6 IHJlCmYKMTAgNDUzIDU3 MnRjOD30RUCdMUzdLpJb RPKsEm6gYPHoWqe4FS02 VJBfEJqdIwR3KM0x DMU3KpddLdOjPD22XCZu NzUgcmUKZgowLjkxOCAg d0IgCnXhUmi4WIPwKm37 CLL4IC28TH3cRpUn CKdwLrRhUXGnfrksRX92 PSE3MJCeKqRyNWz3FtHs LTAuNzUgcmUKZgoxMCA0 HzQlSYE6RoVbLNJa NzUgcmUKZgoxMCAzODcu GkYyLJf0KT5cEiu4ACYz MkHMAQZdXPGqYfQuMY35 NSAtNDYuNSByZQpm KmS9RK9zWKS5QwGpXDPg Dcy3AH92Gl23BSIpIiOV HB52VXdoWEJrloljGN59 QJV7NhYhDfEqAQf7 LjUgLTEyIHJlCmYKMCAg u2CsTiJhQvy3BISaTA89 ZSS9IG75QF1rZnx5PWYu OhXCRV65SYusQXYw bgoxNiAzNzcuMjUgNTYz RgX6FK2vSX74UQZrTsJK ISSjq6StCcQ7SGA7Dx08 UXIcFx77LJHpVtZz NzUgcmUKZgowLjkxOCAg h7NoQwT3QJA4Wa43GUSo Oj57SHYjMqTvKkFjmrXU SskpISXlQ34DWGRb VoYsJmF6Jye9FQB2NbVt LTEwLjUgcmUKZgowLjkx HECel9CzQpMiDgj1FMD3 Zp46YNI2MB39JK0u OC33WAKrKnHZFUTqc9Hd AwMkUJ6hREOyJgWfMoLe MjAuMjUgLTEwLjUgcmUK XlntHqqsAKKuc5Zq XvQbWE3qFEEdNjBaJdCt MjAuMjUgLTEwLjUgcmUK GpbkLAGuA90TFKGoQdDk OyK2Rua7BXT1YkFk LTEwLjUgcmUKZgowLjkx BVOtx1CyKqIhRW47HYI7 Hc80UDZ0MZ34QK8mPK02 EDZtBmOMQLUas3Cs QuC3QUSwOhHmQmBbMpwl NSAtMTAuNSByZQpmCjAu GUG3EKOjH28RMYrtJBH9 Nv60DICcUG06RX5l OS64LSFxUeTCXROsw8Da IuFyTD80VAY5Ve75YGF0 MiAtMTAuNSByZQpmCjAu JGJ4GCYdC41UUzG3 BuMbTaW2Zui8CVEgGU5t VH86FSWgBoBQQMHdy8Zy GxD8LN45KQH7Vv67HDZc QJ79SE1qEZ43OGAl ZtTMCH49JJwoXJYyiskf NTEuNSAzNjYuNzUgMjUu NSAtMTAuNSByZQpmCjEg IHNjbgoyNzcgMzY2 Cyg8LWJcNg5nPKWlKBHh YNElPDrwPaAnXTD4UURp D55AHay3KAV7Uq40YFKf MTYuMjUgLTEwLjUg ynBPNwroFSYdZ37LMhia HfC9VLU3Me53GJIaVU45 UP3hON98GLEhNhRAXC28 MTggIHNjbgozOTMu PeKpTiU9Bfc3QBO0YfQe LTEwLjUgcmUKZgoxICBz C29NPUDzWuh6XXG2Kg55 HQM8BrTlFUElDEBr YHagVkEgQYF7UILeE46S DOHmYnn6DEI8Kv73MTU7 MyAtMTAuNSByZQpmCjEg CYMqbgb9FTBmLfVu RfN6Phk6NKK9JwGkGYPh LjUgcmUKZgowLjkxOCAg k9HhEpP1DK84KBScInKd NzUgMjguNSAtMTAu NSByZQpmCjEgIHNjbgo1 SXFnGoVoOiK2Ruw8IQOc LjUgLTEwLjUgcmUKZgow ZmttXSPaf8VtMiNp Ib7eEESzIeTsLwCcUdAb NSAtMTAuNSByZQpmCjEg XHTxvpt0GNGaObPfTxC9 Ewq3XWB2LeCfHNJs LjUgcmUKZgowLjkxOCAg m7KqDkS5EY02HPUoPwNl NzUgMjUuNSAtMTAuNSBy ZQpmCjEgIHNjbgo1 NcFwUbTqOwE4Tnf8SRho LTEwLjUgcmUKZgowLjkx LMNpa7RwVdN8GF3lUEJh NjYuNzUgOSAtMTAu NSByZQpmCjEgIHNjbgo1 Vn03VEHtTHOxLtXyPXih NSAtMjAuMjUgcmUKZgow ZlljXFSpb6CdTpYo Hqj3SSK9Do1vHPT7KW36 TL9sEC8xIOUyHCygXvCr IHNjbgoxMTEuMjUgMzU2 ElV7UMJpIzR5GA7r WQ0hVBWtYLlbYpHdLHZ4 VQWmG51JADAeIoD9USX5 Sx2jXLReUJ3wTJEdVbEd MjUgcmUKZgoxICBz B18FZNHrJdOjPdX0VhF2 JTJ8JhBnLFFdKhQ5DYQp BiKFOO26YFkuKQQeoypt MzEuNSAzNTYuMjUg NDkuNSAtMjAuMjUgcmUK LvctCNIkN13YWHclTWY3 Wj7oSETnGV65ZE7rUA6l NSByZQpmCjAuOTE4 YJCpB84GIVjkRAQ2Gr9x TNNcNO28IN9fEF7kLJAu ZQpmCjEgIHNjbgoyMDku NSAzNTYuMjUgNDIg IVTcTkO7TDJlZtGQSY90 MTggIHNjbgoyMDkuNSAz NTYuMjUgNDIgLTIwLjI1 GNVwFzNWFOEhn6Oj PkG2OU97TMG7Cl3yDKSi CB94KA3lQF9sGZNbNEra RgChLVG3UTFhY82WDoLa ZnObFcM8GmP1KFR0 UeLpRUMoEtD4DHQqGiRW PORel0VeFsO3OsJdFNHa IuHzTHZ6MgR2LA7vCH1i NSByZQpmCjAuOTE4 AQLcD38SIpu6YVW6Tw4h NSAxMTYuMjUgLTIwLjI1 BOWlBnUNCYJid6DcSdC9 Am5oBDDcOAPiXmYg MjguNSAtMjAuMjUgcmUK BzycYqpoWLUiq1IzBuV6 Xw9iYGMjLCStEbSdKpbu NSAtMjAuMjUgcmUK LrkgLJSiX76DURMmJym1 BRE4Ki2rJTB4EX85WC9q VY9dCETsINbfJiThCGW2 RDSwA57PEKBaFpb8 ABF9Lv4wOAX2WC95OR9f IK6rFJKwNDyqDgNdYOAy qlk2GRJaTbUeNaO7AuA3 RIC1ER8dIS2mHEWr WTgwDvPuIFF3CFJhP95H LMDkDlO9DQV9Hq8kZCP3 NiAtMjAuMjUg (more content not included)... Normal [facility] EMS Documentationon 10-09-19 EMS Documentation Please click on link to see report pdfCD:[id number] xLjQNCiX5+prnDQolQUJ ZaJWwVLNoLpX4JHmaWcI iIG4pkk9SBLbJY9FfRLL nLTP0Wc4D UNulTAz9GAAuEE5QT4ld GSchAOP5Zq8IuE8wWKOx aqWpORTVL25rBcikPjZc NQovVCAxODAzNDgK Uq9yATCpZDZxSJCsZHXa ICAgICAgICAgICAgICAg ICAgICAgICAgICAgICAg ICAgICAgICAgICAg ICAgICAgICAgICAgICAg ICAgICAgDQplbmRvYmoN Dw2GoZYqHk1XQrFfQaTH CjAwMDAwMDAwMzIg FDKcMZKnox0GICWoAURe PHO9MFCcUVWrNHKmAHhl PLZdBSRoUGv9BPEgJNTl BM5ZDaDhOIRyWPZ3 YVCvOCOcKNXonr7QKZSt MDAwMTkzNSAwMDAwMCBu LHhvTYBiJODoDRv4LHGs AWTaXO3DNuOkYOWk MMZlBhXwOAEzTGIcnf6D MDAwMDAwMjMxNiAwMDAw MCBuDQowMDAwMDAyNDAw LQSoGMOxKW3TBkUl QKAdYTY9GVyyFIUdTEGw tx8LNZNsMCHdCtriQXRt MDAwMCBuDQowMDAwMDAz HZI3GGUeTJNfLN1S UmVrZRTzIRX7QCUdUAAt NOCcxt8TSXShPVWcNiI3 OCAwMDAwMCDQowMDAw IMGfOQK1DBTkHGMi WG7RAsVqRBVrYGCgJSQq PXNmGMYtnm9WUASrBAAt NDQzOSAwMDAwMCBuDQow OQWpJDG7FqZvWPVc FLPvQB9PAmUtSUWlIVW1 UPxxFPIhXTBruq0WSVSh MDAwNTExMSAwMDAwMCBu KImuIVUfXMC0GRZx KMPgSASiJT0WBtZeEMBc CVC1ZwpgNOBxRAShiv2F MDAwMDAwOTYzOCAwMDAw MCBuDQowMDAwMDUw JbX2NIEtEFYcSD0JGbDf MDAwODgyNDYgMDAwMDAg hq3FmGMnsVfltl6UZBnJ Q0iDWKk0HZcJLylc OXMvFvM3YnRvEWxsDKBq CSQ3BrO7NlFJIEJ+Cjwz RxOFSDV3TkKFOZEbHYO6 XagcGCWFLXBJD9B4 GFJHOY8kKm3AceJ9XLE0 PIOcMdsgCi1snPXoPsPe IANIY7KrcoZyPFgTR6De xKJiNKFeO0DSFTS3 Iz07QxftjFmHBDO8CYAG KWraNQ6LQjjFLjAqOEif Nu66D8BIy0O0VbVtU6CN xDqYhsNBEFxtQ5lU hSP5p9crmUmGyQUXlInv OGdJcndPalFSQUlqUHNX kD86ojnGT7NfNRf9Z8YO Cd5JDQnzObOetD3T hHesRTP4bS6tBCJQPIuM VobvYF9WVBNQWUl6GRa+ PiAgICAgICAgICAgICAg ICAgICAgICAgICAg ICAgICAgICAgICAgICAg ICAgICAgICAgICAgICAg ICAgICAgICAgICAgICAg ICAgICAgICAgICAg ICAgICAgICAgICAgICAg ICAgICAgICAgICAgICAg ICAgICAgICAgICAgICAg ICAgICAgICAgICAg ICAgICAgICAgICAgICAg ICAgICAgICAgICAgICAg ICAgICAgICAgICAgICAg ICAgICAgICAgICAg ICAgICAgICAgICAgICAg ICAgICAgICAgICAgICAg ICAgICAgICAgICAgICAg ICAgICAgICAgICAg ICAgICAgICAgICAgICAg ICAgICAgICAgICAgICAg ICAgICAgICAgICAgICAg ICAgICAgICAgICAg ICAgICAgICAgICAgICAg ICAgICAgICAgICAgICAg ICAgICAgICAgICAgICAg ICAgICAgICAgICAg ICAgICAgICAgICAgICAg ICAgICAgICAgICAgICAg ICAgICAgICAgICAgICAg ICAgICAgICAgICAg MW2Cb0QscwJ8avQmTDvn VKwvPWMXHs3WUBinPiTo UQ3vsm6EDJbNB15ilNKn YXRhIDIxIDAgUgov K9XrowAriSphrxRgOgTz TKURTo7QvOKIEAbjV4K4 xPsaPQTfYUwcZRFALy1X ILthXT5bYZIfAFXu Yr7rSLtsYDJdJDHdQtHi WMHBPl8KpKVzJG4WLOYa xT8iLe5+DQplbmRvYmoN Vb2RBaThVYHcUrhH Wdg0Zf2IzXu8SHGqM9Il ISOiTSSmv7OxVs8SUD3e tJksVDW1Ay8YLDo3Fr5+ YKglnMLmRZ9CQhzf N2JmXFPfXLGaNBLoGU2A IuFAAQpTgGwhIOYCizKu C2Rg+UhKiN9hvCnBwSJV HHZe4KKYQnXb66Qn DlUEoouA+VLPWgAy4h+k x0C3NZQdLQR3bZDOWA4F 9ykCao8UWg1RO3X0DodH UTIBPPbDeE4VPDzB E/BYUpMzBOI8hjWdaJ5M IY8wu9CvKDfYFyB6RYQv z8JaMQr8JQtmU55xkOYe kLJcMnFfOUUxLd3V T92oKGbcJc14TZtaDLGb DuBgTZs0Tg0DT4TcucRa lMJhVRLiYFFUJ6Xse411 cnAympW3MWzjLM4v pnQymEK7XTrhUYHaDiSc MjYgMCBSCj4+Cj4+Ci9U bUGgNQ8MTGsbTn9+DQpl elXeUmjQQr2KDqEh KCOqBiaHYni2Zz0IVg07 ZAkhHKIlKiSdWIv6Qn0Q N8FkxMBsfoGcIhtsoWGA TCKzYOPWY7iyvnd7 dUZ4YosmGlTfc2VlI6Hy HGk7Va5DV4DxZDS2ZMq4 Xd9LBLPmJgQ4NkMjZRRK Bg1YTh6AT5D8WyB6 hUDoZ0Lxki3BQ8Q8vWTn B2lNHoetS8SMLl5SCiA5 vzGjrB6XsOcmlfYoQbJw MjRQMFUwtTRSMLcw TliU6oMGC7od6EIWr7Iu LqZBPYCXDQxh0PeZpUY8 w1iP2xEbOwlYkCBhjmvI k8qVxJ5JI2yB4E5M NO1gs9GrMMLtULrhrpAj DesFPx3PTofvBRMyYrmK Sya4Wm6XTHTmPn1ubTGm Sc6GGNInPt4LRyTl Nx9LIlYiNi3KAjYcAf4I VUZ0Nr8GDWH7vnMhEb9k YSAxCj4+DQplbmRvYmoN Us8VVxhnPDNxKdcJ Qkm9Ye8PFCTbKn3cwSXv Ml0cWVOhBs7+DQplbmRv EowASi5HKbnfQZXiQeeR Dcc3Fd4OSCUoTo0l vNLxPt1BIBHsTw7VJpYm Px7WWuJtId5LBfSgZo4Y LPV6Wa3FYOO0exRlHh7u YSAxCj4+DQplbmRv UgkBCe1SWzGkFVIbFmaP Vrz9Rw5PFAHtYm3eeDWc GU5SVOJLU1QknEQfKGGK UIkNDf8Ts1acCNHL T8Pfy5CyvvLdxhSKx614 oqMbWmPhORIRBYneNF2b a1DnyxtdQ7uiFS80zGE9 WWfQF9Q8AhY0jHFq R0L6gBYxRm1On8OapKQi OHXhRiCjCSUWVm7WqVHr NE9Hv911Cb4+DQplbmRv EjsFKr3VVsDyHVZq HjnLGcr2Ay1VNHUeJq6k fIJoXE9BTDYGF1HlgYIe DYWAUAzFKn9Dl9qrIVEX Y2WMFUG1h8QxkXxd En2pJCqKY78jYIAzhP9f IYbDEIZkzWn3aJmHH1Pj F8xsdEH3RWtUXJ1bXKtX G2Z5jNKrXK2wsyEd MAo+IxquY7sCGB3QDPSA BTCoL6ebBB15kEA6Ko1H PmVvCy1Nn023HOYlX7Fq cHRvciAzMiAwIFIK L2M6XqP5iNSaG2PQHWVm bnRUeXBlMgovVHlwZSAv Cy9vsYgnBcQsRMG5BvN8 FBTqIJs1YxGqOl0+ QTnuxbMeSwmHYu8UPoOl NVSpGgxROcs5Sd0Mm9Mg inJcCHPjCmDpYBOlDd0C YXBIZWlnaHQgNTkx Gxi7Ayd9Uq7PPZKyZE62 UPXgUC2eCPA7RjwwMigw C3LsCpLVW9NurpIEOb53 BFjsQOhjJnm6WZVw RB10UDDkCUI0CgYuIhZm BdK2LJZ8YWJeBwPdUMvu IZXrEr2Qv343RhxjETVv CTKkYBASLh8Uw822 MdUyWNGoSE5TKYEVA9Ez zGEmMWXWAPwBXb8Cn7wt PUAHB1f1QRxzC1BhI2tt XRRFK7V7LL1CYCe1 OxF2MWo3Xf7ZuTLqHL0D h452SCTlQ9PezREqmse+ Mb0CVZ2rc0VfOFuUGkMl BQKuo8QkJSd1LXxb KutbkJObHX6JtEG3OWTx Q75oUMrlCBZfA3GzHZL4 OQo+Sh0Ct2KtICTdPZl8 vL4Yb6xMGTT74bp0 TA/U0rztiWiXh0JHmUS4 N6EA90AMz8BFI/77yrtu CrYBSkNrRcrpROZt4ifA u9t8nnV135YMUjTm wwW8A7gfJLmytoDsJY5a 5PiYUCGgVY6F3pOaAuiD e91Tubni+X2djs0oRMUq NHkzjxe8XCTSW2Z1 SbEO9QlchjFJ+tDppbWv 1BA1Dbp+VqGu/bIPnrvi c1UTL1PfBRHTNEHoHheP OORGCuwIB8jiXgLE /nwi1Nw2+e05NFqINUHn SkQHQimiJEGUUqfNc/zr cH/mIEOjFP8S3ZYOBswG D2mOEaiumoZpG/TK icgKyZQkKdnzJyQzsuc0 2aFilR5vYC/JNitNtwaw BymAfmlxN4KpLrZUYLyi 4TMbC6tSfS5/mRia 6Q9YFU7qx8XjTRBgNJmm ekReDiqQPr4ILjJtPEKh AgiATyw4Jj2SWVCpHt5s jEUtGhSXBLGEX4Rg aYIsJFBCPMeZE58PJp5A VUSaCY6fOD71Ma7mvPEv DtV1OFAxNq3LK8FxW61q hS4pRS4KVONonMt5 iN3YKv9BwHZ2bKHgXJ0Z pVLgGNgeEL9Ymrgza5Si PCI5NZJuXxrf (more content not included)... Normal [facility] Coding Summary.on 10-03-2022 Coding Summary. CD:[id number]:[id number] Gh0bWw+PGhlYWQ+PE1FV MXzL23zaLTroO4bK6DDM ElOSywgQVBQTElOSyIgb bFiUP4hnXNrNJMk IC8+HH3iBMHlRdqivRUa b5T2yBR2D07ynp6qRSac tDN9ZYIhBaHrwqgzz5rh mKm7VEedAdvmMmVd OWIuxA57EHH6aY06Nn93 vSLplJPwi8jrbCa8LrEj XFZpXDB9iAqlQNhla1Hr OEEyL98qtLVni3P1 IGNvbGxhcHNlOyBlbXB0 gV8aLQdfyxhjx1pwzrcl Nzb3mb61bYTdn2C5qJO0 N6BbxiR5FARedRRh DuutpKLHxH3urvlft0mr iiehCsSnDNYbYFr5ASg6 XJSqnPeiRoSzCE47DQJ5 BIWreeKsN4XmUVFi fQicJeK7k4G6Yf5SP0SC RzdmC8VZGPEPRZnlvOT+ QC58oh02T8ZcZbfsDwl9 EKMsQBN7kKE5dC6i NWVkNLgxn4P8wZW2Z0Kt gyBebv1iq5ujBMEbDZdt A64qgYZzq2C7OPXycFP1 QLNfzKecLaReqB09 Oyc+RADfoRbdz1YhMepo a9mxj6olcOn5YycrNRSi usNtcShyJDD9l8ImVp4h UUJcdPT4hCJ1dS3p GaIvBjM1YYkiM055EiGx bQBiSdpmI47dI1QwuRE+ NPSgQpa8CJMspNgyJC1z I6LwPVFfdqfmmYAl tWmuEO5lWQDsrffgXCJt tJ4uQPPsQ2k1GlXiYnX0 VPujS8RgDWJotetwIm70 aQ6gWcKqEmZ1LNpc X1RmqyN1PTQiyYTkAIfw YQV2B41re3G8QWPhKXUr SBG0eLO0tT6goFxesjlb bGVmdDsgdmVydGlj KDocVZrdZ852PPRmuRrm PkNvZGluZyBEYXRlOiAg MDMvMDgvMjAyMzwvdGQ+ TDYeBKA9aThuIUZw lLFpWNjmGi6qoJglbVkj EZ6hJNHvkwehCTNhuH0o LLRbvPKzqUpfUI1cPQSz rcvcu866DtUzHFU6 RMMmwHXhN8ZhcG5xPoPj UTYjPWLxY3WqtLYoCNpy V121OWloAeW5PXKpbhOk G5TmUKWppVnlOyG0 l6Y5Mb9Vl5BdhjuwY3Yc cLLzAqLpOkxwZFc3D2Ls PjwvdHI+PV89NXNwVT48 OQk3MAX7cGxsXGur FBWtR7EvoJ2xJfDvHDUs ZGRkOyc+PHRhYmxlIHdp ZHRoPScxMDAlJyBzdHls AC9pVm6qCZWoQXTq cHqgyHQrNpUda7elFWQk ZPqiZV3jmYbnG0WjpET1 BAWvt4r7Kj50M34mX1Vb dXA+JLGooIU9kKA8 dR9zXwKsBnS1SBrkI109 IvCsxIIhQgvud3pry1jz nUj8LtL7MNDlyrXkvAkc ZYQ8j3IbCq79O67w IHdpZHRoPSIxNSUiIHZh vPsynk5rnQ3jZa9+PGNv xSB1zYE2gP0rTxZdHyN9 STybX041VvKmcLGw Idtru1knr9pgpFw0NsLk ONGwxfQsoNwtTBO1j1Cc Er52S0RqgNjww7ZuJgk7 ew30qDUlr4O5hSJ9 S6VcGBEnkycanLTieDyl PZ7yDLJjgxypNCBpdG8d OGDrS6d0IbGwVlZ2FLfg N5AezjB7INElgICh KTXljKSNwK9ncnzyx6wr drwsVhGxCCToJRv3ANp3 TBRapPlgNhCmVZD0UrF5 AGJ5vYTveD9ktXgi sirpuO4qFvn+DZI1qFOo zNCBJZ0uIlvakXT+PHRk YVZ3zZviAXiuGLQujY0u HUQjS5x8WsQjEhV0 PHuzN4CeaoS7HHNciFMw EJUelCIOkF2wojwhd6tw wuguUyZyJMDeDUr0XSy3 LWFsaWduOiBsZWZ0 LrU5TFS4zXRhrG7bgFzu szuhrR4hIgq+QmlydGgg MCL6BPo5K2VfKwd0VBMt oJrrRO6jbCUeEHib Ck3ugBvycGlmZG9fFHZi artvb673XlDiq0yoZGHb dFCmAMlaAGO1H05ge5O9 XPTtOKEwGKI0uMP9 nR1atJrywjxpuXZaoMdf zcUdbRfmKEliTFvmQ574 PPWnsXahYsKvTVf7V2Xb Ymy9ALBvmVrpHJ8c cNFtTCvfJs9edShvtHji NM9pPCPsdhcox113WuGy b7mbBHSpsSHzCPwuWRJ7 V05hu3G7WNBsUAQx CTO8bXC5oY9riDepizsu bGVmdDsgdmVydGljYWwt ZIsvA094BSOleXpyVuSb iGv5F0YqXsn3ILOc iMzyIG6yfQYrWFkcKi5w cNnjnYjeQS8bLLGlmmrk u864ArHvh2efBJOogMJy GBbdHFH4U86rr4R6 LYGxENRhIYE0hBP3cT3l bGlnbjogbGVmdDsgdmVy kItxATnmHQogR642OGZi cDsnPlBhdGllbnQg JRzaCDg1I6IgNglqmTT+ ZU76DSKgGT88sETkbZQu x3pbhEu1CiWeXWEqGHG0 uXtqMWlpv0AqNYGr X06doVXgf7D3ISJdcBbb oKJyBiAriZX8qS8lQNyd kwbpp5exbafzLsnou2fb xt86uR09K07bBFgq ZHRoPSIzMCUiIHZhbGln wp9icP7kMv0+PGNvbCB3 sFA9uH3rSONyRsL2LCll H631TaNptCLaXwkr l2ggr4xavZz2RnV1FEZk dkFbwOkkPYW8o9CrSj84 A92wDNhuDKVjFFKdARHy KZBjtJmsyt7vgN4i Ii8+EDKofAF5fGU3jQ5r MfFfDaO8TVxbC996ShYl iVMfEbcsX50zK0QahZX+ ULIeUja3IXLbgRpu CC4btHPfIUsoPu7bZBR4 TcToOzJePElrE2WlLHQm xgqzbfhtzHY7RGPjHQVp rI51Fs2doXanAMUf bZLQxG3kanizp2msvkby ZsTyTFBeXTx1OMo2VHGr fIniDsIhPBA7NnI2DUS0 ySQqyL2nwYvdvaxj kH0zP8VcESOtojgkEk06 wB0hQhCbOhT8NSqnGqs+ REVMUEhJQSBJSUksIFJB ZY0EBiTnCplkfHD+ YJJoWYA1qVzdEPksPCDw gI7aSCCxH0t0InVgKrX2 HVipY3WtHMCryzpfWi68 gB0nTlVxFuW4ECwo B8MtavE5IYSbxRClYOkd ASL6X24vt2S8GVHgMJCy KKV3dXK2bB7ovRpeslmq bGVmdDsgdmVydGlj PRwmPXseF276BNMavNal KyGuDmUdIzB5YFr3G7Hh Dpc4ZFLmzEsbUT6mySPq AXebBr7oeOorxAge FT7eTPEwnenqHMSkbZ1u MVCnrMWwqGknLZ2gCVMn kdvco995DmEkYOQ3IQPs pQCpY5QtfN0mVlCs NZMpKTCrG5HdpQBlZInj Z183PRdaBkD0NUYdolVi R0WxTHJoyEdrRiW3u1U8 Sv0zAyNAZYApqzgw dGQ+NIFgDQA6mOexKJcs HFHiuM0rPFOaT6t4YjVa RqI9MLvzZ0MnJWSghwej Ng52mW9oJhYlCsO7 PTicF7PrteG4VFFcpTOq KRmzGMT0N47jw6L8GWCi JWGnGFE4cDA0fJ3xxDcl bjogbGVmdDsgdmVy hTpeRUhhZQeiY805IKLf qEgkFy3elHW7O4OyAdk2 NSKuwDrbDB1ifFHvHCic Ae1rmFaacBcgLL9g AIHzzydkKHUhoT1xURGl aQKdrQnhNG1tRCWbajls k508OvHhKYE5ZQZyaXCc D0WgyS8gQjLlPODv QQKrM3VkrLReUMmsS443 PKsbTkS4ZGCqxbFbT8Eq OIQbgXdlRaC6d1K6Ct4G cGUqR0QpE9x0B5Eo PjwvdHI+GH74RBTkVM48 yDEsmQKkc7fbyFm7TlAn RFSsEDR0sIknDNfdk9Bj YWQbE14ncABbv8T0 IGNvbGxhcHNlOyBlbXB0 zZ4iZDsfpytzy3mnaxlj Zaskf3pany84aN68F67r IHdpZHRoPSIzMCUi XBDkvZevmj4dqV2rKm7+ ANKkhSF8wNY6jF0bCzCy SlW8JZlhW547RiXogHFc Imxtu9qfx8sbaOl2 IjIwJSIgdmFsaWduPSJ0 o8TqWy76C52cKPuxXJPt ILHbFEDiKMNmvQbqip8g jI6sIv1+KE5ii9vx ox14qU10bUF+PHRkIHN0 fAsuCViiYNBekS4gKVaz MdO0JYDdExZiyC11zUEr HNnpZy0oeZatdJwk TP2jVMFstklgy372FcLm w6izPGLonYDtOOaiWTR9 H14dl4F6KQBxZKJjIFJ9 fCA5mV0mwAsieoau bGVmdDsgdmVydGljYWwt WHfbM249LINtaJufKqOe rVCnU2cbhxCIHX8fNcuf dGQ+DVYzVYC0mCyp CAxkFGMtbJ9wNICnI1g8 DaYnLmK5GZbyW9PcdwT8 QOOzqTMbDSJesFZNcC3e kiskh1pywethFjZu TKQfXEz4NRt8HSJaaHtl JeFhVEL7BwG0IKJ9dDRd dL0qtHfaujdyhE4tEyb+ RklOOjwvdGQ+PHRk LCB9mUkpLQzoACCseQ2f CSOuZ5s5YnKwYkR6NXqz B6JradY5DQLtnHRmCUYq vXANyT8wuldfy8oc nbvnQbFlQJEfCTb7EJh6 RUJhwZxjKtJrQBV9VpF3 WLH0hLSumR6hlMfaymbq mL5qRhv+TVJOOjwv dGQ+QHYyUAP2aGmqMKxm BGAptX0mFKMnL0z4QwPf YlE3ZQlaM0CcyqL0XXHb lJZcQTBcxVJCqY3f dwzib5rbrmgoBtGqUGAn DWq2OTd4RJCgxMdqWsWj YGG7NlR7MGT0oGVszW9r xNyvntfymO1vOeo+ DPF3MYR2XV30NE10Y5Lp PjwvdGFibGU+PHRhYmxl IHdpZHRoPScxMDAlJyBz rFqzUQ5vBd2vOITy LWNv (more content not included)... Normal [facility] Consent for Treatmenton Consent for Treatment [id number] #1.00CD:127 [facility] Discharge Instructionson Discharge Instructions [id number]#1.00CD:127 Normal [facility] ED Clinical Summaryon 2022 ED Clinical Summary [place] [id number] ED Clinical Summary Person Information Name: [facility] Age[facility] 27 Years : 1995 Sex: Male Language: Kinyarwanda PCP: EMELI CHI CNP Marital Status: Phone: [phone] Visit Id: Visit Reason: Headache; Seizure; SEIZURE [...] 09/30/2022 21:30:18 09/30/2022 21:30:18 09/30/2022 21:30:18 ADDRESS: [address] [id number] PHYS DOC NOTES: MEDICAL INFORMATION: Prescriptions Given: Medications to Continue with No Changes Other Medications lamotrigine (lamotrigine 100 mg oral tablet) 2 times a day. oxcarbazepine (Trileptal) By Mouth 2 times a day. PATIENT EDUCATION INFORMATION: Instructions: Epilepsy Follow up: With: Address: When: EMELI CHI [address] [place] [address] [phone] Business (1) In 3 days DIAGNOSIS: Seizure Normal [facility] ED Note-Physicianon 10-01-19 ED Note-Physician Basic Information [...] seizure. Patient's significant other states that around [facility] when he had a generalized tonic-clonic [...] baseline. He follows with a neurologist in [place] for this. He states that he is [...] In 3 days [address] [place] [address] [phone] Business (1) Additional Instructions: Patient Education Epilepsy [...] Diagnostic Results No qualifying data available. Normal [facility] Comment on above: Result Comment: Elec tronically [...] these instructions at home: Medicines ? Take yeyp-lur-dvwstym and prescription medicines only as told by [...] a health (more content not included)... Normal [facility] ED Patient Summaryon 023 ED Patient Summary [place] [address] Patient Discharge Instructions Person Information Name: COREY ALONSO III Age: 27 Years Arrival Date: 09/30/2022 20:00:11 Discharge Diagnosis: Seizure Primary Care Physician: EMELI CHI CNP Provider Information Primary Provider: Junior aRygoza DO Advanced Cosmetician:None The exam and treatment you received in the Emergency Department were for an urgent problem and are not intended as complete care. It is important that you follow up with a doctor, nurse practitioner, or physician?s sales operations assistant for ongoing care. If your symptoms [...] When: EMELI CHI [address] [place] [phone] Business (1) In 3 days In the event that this physician does not participate in your insurance network, please consult with your insurance company to find a nearby participating provider. Patient Education Materials: Epilepsy A MESSAGE TO ALL PATIENTS REGARDING OPIOIDS PRESCRIPTION OPIOIDS: WHAT YOU NEED TO KNOW Prescription opioids can be used to help relieve [id number]-[id number] pain and are often prescribed following a [...] be struggling with addiction, tell your health childcare worker and ask for guidance or call [facility] National Helpline at 4-152-895-IVPV. m Source: [place] Department of Health and Human Services/[place] (more content not included)... [facility] Monitor Recordon 09-30-2022 Monitor Record [id number]#1.00CD:127 [facility] Pre-Arrival Noteon 3 Pre-Arrival Note Pre-Arrival Summary Name: , mayo Current Date: 09/30/2022 20:10:38 EST Gender: Male Date of : Age: 27 Pre-Arrival Type: EMS ETA: 09/30/2022 20:20:00 EST Primary Care Physician: Presenting Problem: seizure Pre-Arrival User: Referring Source: Location: Completion Date/Time: 09/30/2022 19:50:00 [facility] Emergency Department Pre-Hospital Report Form Vital Signs: BP 144/96, HR 98, SPO2 99%, GCS 15 Pre-Hospital Report: Pt coming from [facility], had a seizure, 5th one today, known to have some back in July, alert and alittle confused Treatment in Route: Response to Treatment: Misc. Issues: Normal [facility] GROUP A STREP CULTUREon 08-30 S. pyogenes Ag Ql (Unsp spec) Culture Observations: NEGATIVE FOR GROUP A STREPTOCOCCUS. Normal [facility] Comment on above: Performed By: #### G RASTCX, SSCRN #### [facility] [address] [place] [address] Dr. Bob Nelson STREPT SCREENon 09-23-2022 STREP SCREEN A Negative Normal NEGATIVE [facility] Comment on above: Performed By: #### G RASTCX, SSCRN #### [facility] [address] [place] [address] Dr. Bob Nelson Basic Metab w/rfx MGon 08-07 Anion gap [Moles/Vol] 11 mmol/L Normal 9-17 [facility] Comment on above: Performed By: #### B MPX #### [facility] [address] [place] [id number] Informatics Analyst: Carter Collins MD Calcium [Mass/Vol] 10.0 mg/dL Normal 8.6-10.4 [facility] Comment on above: Performed By: #### B MPX #### [facility] [address] [place] [address] Informatics Analyst: Carter Collins MD Chloride [Moles/Vol] 102 mmol/L Normal 98-107 [facility] Comment on above: Performed By: #### B MPX #### [facility] [address] [place] [address] [id number] Informatics Analyst: Carter Collins MD CO2 [Moles/Vol] 26 mmol/L Normal 20-31 [facility] Comment on above: Performed By: #### B MPX #### [address] [address] Informatics Analyst: Carter Collins MD Creatinine [Mass/Vol] 0.94 mg/dL Normal 0.70-1.20 [facility] Comment on above: Performed By: #### B MPX #### [address] [address] Informatics Analyst: Carter Collins MD GFR/1.73 sq M.predicted among non-blacks MDRD (S/P/Bld) [Vol rate/Area] mL/min/{1.73_m2} Normal >60 [facility] Comment on above: Result Comment: Effective [...] secretion. Performed By: #### B MPX #### [address] [address] Informatics Analyst: Carter Collins MD Glucose [Mass/Vol] 97 mg/dL Normal 70-99 [facility] Comment on above: Performed By: #### B MPX #### [facility] [address] [place] [id number] Informatics Analyst: Carter Collins MD Potassium [Moles/Vol] 4.0 mmol/L Normal 3.7-5.3 [facility] Comment on above: Performed By: #### B MPX #### [address] [address] Informatics Analyst: Carter Collins MD Sodium [Moles/Vol] 139 mmol/L Normal 135-144 [facility] Comment on above: Performed By: #### B MPX #### [facility] [address], [place] [id number] Informatics Analyst: Carter Collins MD Urea nitrogen [Mass/Vol] 12 mg/dL Normal 6-20 [facility] Comment on above: Performed By: #### B MPX #### [facility] [address], [place] [id number] Informatics Analyst: Carter Collins MD Basic Metabolic Panel w/ Ref rehana to MGon 08-07-2022 Anion gap [Moles/Vol] 11 mmol/L 9 - 17 mmol/L [facility] Calcium [Mass/Vol] 10.0 mg/dL 8.6 - 10. 4 mg/dL [facility] Chloride [Moles/Vol] 102 mmol/L 98 - 10 7 mmol/L [facility] CO2 [Moles/Vol] 26 mmol/L 20 - 31 mmol/L [facility] Creatinine [Mass/Vol] 0.94 mg/dL 0.70 - 1.20 mg/dL [facility] GFR/1.73 sq M.predicted MDRD (S/P/Bld) [Vol rate/Area] - PINF [facility] [employer] Comment on above: Effective Apr 30, 2022 [...] [Mass/Vol] 97 mg/dL 70 - 99 mg/dL [facility] Potassium [Moles/Vol] 4.0 mmol/L 3.7 - 5.3 mmol/L [facility] Sodium [Moles/Vol] 139 mmol/L 135 - 144 mmol/L [facility] Urea nitrogen (BldV) [Mass/Vol] 12 mg/dL 6 - 20 mg/dL [facility] CBC with Auto Differentialon 08-07-2022 Absolute Eos # 0.08 [place] [facility] Absolute Immature Granulocyte 0.04 [facility] Absolute Lymph # 2.27 [facility] Absolute [place] # 0.38 [facility] RS [facility] Basophils (Bld) [#/Vol] 0.03 10*3/uL [facility] Basophils/100 WBC (Bld) 0 % 0 - 2 % B ON [facility] Eosinophils/100 WBC (Bld) 1 % 1 - 4 % [facility] Hematocrit (Bld) [Volume fraction] 45.6 % 40.7 - 50.3 % [facility] Hemoglobin (Bld) [Mass/Vol] 15.6 g/dL 13.0 - 17.0 g/dL [facility] Immature granulocytes/100 WBC (Bld) 1 % High 0 [facility] Interpretation and review of laboratory results Abnormal [facility] Lymphocytes/100 WBC (Bld) 31 % 24 - 43 % [facility] MCH (RBC) [Entitic mass] 28.5 pg 25. 2 - 33.5 pg [facility] MCHC (RBC) [Mass/Vol] 34.2 g/dL 28.4 - 34.8 g/dL [facility] MCV (RBC) [Entitic vol] 83.4 fL 82.6 - 102.9 fL [facility] Monocytes/100 WBC (Bld) 5 % 3 - 12 % B ON [facility] NRBC Automated 0.0 0.0 per 100 WBC [facility] Platelet distribution width (Bld) [Ratio] 12.6 % 11.8 - 14.4 % [facility] Platelet mean volume (Bld) [Entitic vol] 9.8 fL 8.1 - 13.5 fL [facility] Platelets (Bld) [#/Vol] 215 10*3/uL [facility] RBC (Bld) [#/Vol] 5.47 10*6/uL 4.21 - 5.7 7 m/uL [facility] Segmented neutrophils/100 WBC (Bld) 62 % 36 - 65 % [facility] Segs Absolute 4.58 [facility] WBC (Bld) [#/Vol] 7.4 10*3/uL [facility] CBC with Diffon 08-07-2022 Abs. Basophil 0.03 k/uL Normal 0.00-0.20 [facility] Comment on above: Performed By: #### C DP #### [address] [address] Informatics Analyst: Carter Collins MD Abs.Imm.Granulocyte 0.04 k/uL Normal 0.00-0.30 [facility] Comment on above: Performed By: #### C DP #### [address] [address] Informatics Analyst: Carter Collins MD Abs.Neutrophil (Seg) 4.58 k/uL Normal 1.50-8.10 [facility] Comment on above: Performed By: #### C DP #### [address] [address] Informatics Analyst: Carter Collins MD Basophils/100 WBC (Bld) 0 % Normal 0-[address] [facility] Comment on above: Performed By: #### C DP #### [address] [address] Informatics Analyst: Carter Collins MD Eosinophils (Bld) [#/Vol] 0.08 10*3/uL Normal 0.00-0.4 4 [facility] Comment on above: Performed By: #### C DP #### [address] [address] Informatics Analyst: Carter Collins MD Eosinophils/100 WBC (Bld) 1 % Normal 1-4 [facility] Comment on above: Performed By: #### C DP #### [address] [address] Informatics Analyst: Carter Collins MD Erythrocyte distribution width (RBC) [Ratio] 12.6 % Normal 11.8-14.4 [facility] Comment on above: Performed By: #### C DP #### [address] [address] Informatics Analyst: Carter Collins MD Hematocrit (Bld) [Volume fraction] 45.6 % Normal 40.7-50.3 [facility] Comment on above: Performed By: #### C DP #### [address] [address] Informatics Analyst: Carter Collins MD Hemoglobin (Bld) [Mass/Vol] 15.6 g/dL Normal 13.0-17.0 [facility] Comment on above: Performed By: #### C DP #### [address] [address] Informatics Analyst: Carter Collins MD Immature granulocytes/100 WBC (Bld) 1 % High 0 [facility] Comment on above: Performed By: #### C DP #### [address] [address] Informatics Analyst: Carter Collins MD Lymphocytes (Bld) [#/Vol] 2.27 10*3/uL Normal 1.10-3.7 0 [facility] Comment on above: Performed By: #### C DP #### [address] [address] Informatics Analyst: Carter Collins MD Lymphocytes/100 WBC (Bld) 31 % Normal 24-43 [facility] Comment on above: Performed By: #### C DP #### [address] [address] Informatics Analyst: Carter Collins MD MCH (RBC) [Entitic mass] 28.5 pg Normal 25.2-33.5 [facility] Comment on above: Performed By: #### C DP #### [address] [address] Informatics Analyst: Carter Collins MD MCHC (RBC) [Mass/Vol] 34.2 g/dL Normal 28.4-34.8 [facility] Comment on above: Performed By: #### C DP #### [address] [address] Informatics Analyst: Carter Collins MD MCV (RBC) [Entitic vol] 83.4 fL Normal 82.6-102.[address] [facility] Comment on above: Performed By: #### C DP #### [address] [address] Informatics Analyst: Carter Collins MD Monocytes (Bld) [#/Vol] 0.38 10*3/uL Normal 0.10-1.20 [facility] Comment on above: Performed By: #### C DP #### [address] [address] Informatics Analyst: Carter Collins MD Monocytes/100 WBC (Bld) 5 % Normal 3-12 [facility] Comment on above: Performed By: #### C DP #### [address] [address] Informatics Analyst: Carter Collins MD Neutrophil (Seg) 62 % Normal 36-65 [facility] Comment on above: Performed By: #### C DP #### [address] [address] Informatics Analyst: Carter Collins MD NRBC Automated 0.0 per 100 WBC Normal 0.0 [facility] Comment on above: Performed By: #### C DP #### [address] [address] Informatics Analyst: Carter Collins MD Platelet mean volume (Bld) [Entitic vol] 9.8 fL Normal 8.1-13.5 [facility] Comment on above: Performed By: #### C DP #### [address] [address] Informatics Analyst: Carter Collins MD Platelets (Bld) [#/Vol] 215 10*3/uL Normal 138-453 [facility] Comment on above: Performed By: #### C DP #### [address] [address] Informatics Analyst: Carter Collins MD RBC (Bld) [#/Vol] 5.47 10*6/uL Normal 4.21-5.77 [facility] Comment on above: Performed By: #### C DP #### [address] [address] Informatics Analyst: Carter Collins MD WBC (Bld) [#/Vol] 7.4 10*3/uL Normal 3.5-11.3 [facility] Comment on above: Performed By: #### C DP #### [address] [address] Informatics Analyst: Carter Collins MD EEG video monitoringon 08-07 Samira Rubio MD 08/07/2022 6:14 PM LONG-TERM EEG-VIDEO MONITORING CLINICAL NEUROPHYSIOLOGY LABORATORY DEPARTMENT OF NEUROLOGY [facility] Patient: Corey Alonso III Age: 26 y.o. [...] revealed no abnormalities. SAMIRA RUBIO MD Diplomate, [place] [employer] Psychiat[employer] and Neurology Diplomate, [place] Board of Clinical Neurophysiology Diplomate, [place] Board of Epilepsy Please note this is a preliminary report and updated daily. The final report will have a summary of behavior and electrographic findings with clinical correlation. [facility] [employer] Phone: EEG video monitoringOrdered By: Samira Rubio on 08-07-2022 [facility]: LAMOTRIGINEon 06-19-2022 Lamotrigine, Serum 4.2 ug/mL Normal 2.0-20.[address] [facility] Comment on above: Result Comment: Dete ction Limit = 1.0 Performed By: #### C BC #### [facility] [address] [place] [address] Dr. Bob Nelson CBC AUTO DIFFon 06-11-2022 BASO # 0.0 103/ul Normal 0.0-0.[address] [facility] Comment on above: Performed By: #### C BC #### [facility] [address] [place] [address] Dr. Bob Nelson Basophils/100 WBC (Bld) 0.2 % Normal 0.2-2.0 [facility] Comment on above: Performed By: #### C BC #### [facility] [address] [place] [address] Dr. Bob Nelson EO # 0.0 103/ul Normal 0.0-0.[address] [facility] Comment on above: Performed By: #### C BC #### [facility] [address] [place] [address] Dr. Bob Nelson Eosinophils/100 WBC (Bld) 0.0 % Critically low 0.9-7. [address] [facility] Comment on above: Performed By: #### C BC #### [facility] [address] [place] [address] Dr. Bob Nelson Erythrocyte distribution width (RBC) [Ratio] 13.0 % Normal 11.0-15.[address] [facility] Comment on above: Performed By: #### C BC #### [facility] [address] [place] [address] Dr. Bob Nelson Hematocrit (Bld) [Volume fraction] 40.4 % Critically low 42.0-54.[address] [facility] Comment on above: Performed By: #### C BC #### [facility] [address] [place] [address] Dr. Bob Nelson Hemoglobin (Bld) [Mass/Vol] 14.3 g/dL Normal 14.0-18.[address] [facility] Comment on above: Performed By: #### C BC #### [facility] [address] [place] [address] Dr. Bob Nelson IG # 0.03 10e3/ul Normal 0.00-0.[address] [facility] Comment on above: Performed By: #### C BC #### [facility] [address] [place] [address] Dr. Bob Nelson IG % 0.3 % Normal 0.0-0.[address] [facility] Comment on above: Performed By: #### C BC #### [facility] [address] [place] [address] Dr. Bob Nelson LYMPH # 0.7 103/ul Critically low 1.2-3.8 [facility] Comment on above: Performed By: #### C BC #### [facility] [address] [place] [address] Dr. Bob Nelson Lymphocytes/100 WBC (Bld) 7.2 % Critically low 20.5-[address] [facility] Comment on above: Performed By: #### C BC #### [facility] [address] [address] [address] Bob Nelson MANUAL DIFF REQ NO Normal [facility] Comment on above: Performed By: #### C BC #### [facility] [address] [address] [address] Bob Nelson MCH (RBC) [Entitic mass] 28.7 pg Normal 25.9-34.[address] [facility] Comment on above: Performed By: #### C BC #### [facility] [address] [place] [address] Dr. Bob Nelson MCHC (RBC) [Mass/Vol] 35.4 g/dL Critically high 29.9-35.[address] [facility] Comment on above: Performed By: #### C BC #### [facility] [address] [place] [address] Dr. Bob Nelson MCV (RBC) [Entitic vol] 81.1 fL Normal 80.0-94.0 [facility] Comment on above: Performed By: #### C BC #### [facility] [address] [address] [address] Bob Nelson MONO # 0.6 103/ul Normal 0.3-0.[address] [facility] Comment on above: Performed By: #### C BC #### [facility] [address] [place] [address] Dr. Bob Nelson Monocytes/100 WBC (Bld) 6.0 % Normal 1.7-12.0 [facility] Comment on above: Performed By: #### C BC #### [facility] [address] [place] [address] Dr. Bob Nelson NEUT # 8.8 103/ul Critically high 1.4-6.5 [facility] Comment on above: Performed By: #### C BC #### [facility] [address] [place] [address] Dr. Bob Nelson Neutrophils/100 WBC (Bld) 86.3 % Critically high 43.0- 75.[address] [facility] Comment on above: Performed By: #### C BC #### [facility] [address] [place] [address] Dr. Bob Nelson Platelet mean volume (Bld) [Entitic vol] 9.1 fL Critically low 9.5-13.[address] [facility] Comment on above: Performed By: #### C BC #### [facility] [address] [place] [address] Dr. Bob Nelson PLT 177 103/ul Normal 150-[address] [facility] Comment on above: Performed By: #### C BC #### [facility] [address] [place] [address] Dr. Bob Nelson RBC 4.98 106/ul Normal 4.70-6.[address] [facility] Comment on above: Performed By: #### C BC #### [facility] [address] [place] [address] Dr. Bob Nelson WBC 10.2 103/ul Normal 4.0-11.[address] [facility] Comment on above: Performed By: #### C BC #### [facility] [address] [place] [address] Dr. Bob Nelson CBC W MANUAL DIFFon 06-11-20 22 ATYPICAL LYMPH # Normal [facility] Comment on above: Performed By: #### C BC #### [facility] [address] [place] [address] Dr. Bob Nelson ATYPICAL LYMPH % Normal [facility] Comment on above: Performed By: #### C BC #### [facility] [address] [place] [address] Dr. Bob Nelson BAND # 0.0 103/ul Normal 0.0-0.[address] [facility] Comment on above: Performed By: #### C BC #### [facility] [address] [place] [address] Dr. Bob Nelson BAND % 0 % Normal 0-[address] [facility] Comment on above: Performed By: #### C BC #### [facility] [address] [place] [address] Dr. Bob Nelson BASOM # 0.00 103/ul Normal 0.00-0.10 [facility] Comment on above: Performed By: #### C BC #### [facility] [address] [place] [address] Dr. Bob Nelson BASOM % 0.0 % Critically low 0.2-2.0 [facility] Comment on above: Performed By: #### C BC #### [facility] [address] [place] [address] Dr. Bob Nelson BLAST # Normal [facility] Comment on above: Performed By: #### C BC #### [facility] [address] [place] [address] Dr. Bob Nelson BLAST % Normal [facility] Comment on above: Performed By: #### C BC #### [facility] [address] [place] [address] Dr. Bob Nelson CORRECTED WBC Normal 4.0-11.0 [facility] Comment on above: Performed By: #### C BC #### [facility] [address] [place] [address] Dr. Bob Nelson EOS # 0.00 103/ul Normal 0.00-0.[address] [facility] Comment on above: Performed By: #### C BC #### [facility] [address] [place] [address] Dr. Bob Nelson EOS% 0.0 % Critically low 0.9-7.0 [facility] Comment on above: Performed By: #### C BC #### [facility] [address] [place] [address] Dr. Bob Nelson HCT 41.3 % Critically low 42.0-54.0 [facility] Comment on above: Performed By: #### C BC #### [facility] [address] [place] [address] Dr. Bob Nelson HGB 14.4 g/dl Normal 14.0-18.[address] [facility] Comment on above: Performed By: #### C BC #### [facility] [address] [place] [address] Dr. Bob Nelson LYMPHM # 0.85 103/ul Critically low 1.20-3.80 [facility] Comment on above: Performed By: #### C BC #### [facility] [address] [place] [address] Dr. Bob Nelson LYMPHM% 8.0 % Critically low 20.5-60.0 [facility] Comment on above: Performed By: #### C BC #### [facility] [address] [place] [address] Dr. Bob Nelson MCH 28.6 pg Normal 25.9-34.[address] [facility] Comment on above: Performed By: #### C BC #### [facility] [address] [place] [address] Dr. Bob Nelson MCHC 34.9 g/dl Normal 29.9-35.[address] [facility] Comment on above: Performed By: #### C BC #### [facility] [address] [place] [address] Dr. Bob Nelson MCV 82.1 fL Normal 80.0-94.[address] [facility] Comment on above: Performed By: #### C BC #### [facility] [address] [place] [address] Dr. Bob Nelson METAMYELOCYTE # Normal [facility] Comment on above: Performed By: #### C BC #### [facility] [address] [place] [address] Dr. Bob Nelson METAMYELOCYTE % Normal [facility] Comment on above: Performed By: #### C BC #### [facility] [address] [place] [address] Dr. Bob Nelson MONOM# 0.64 103/ul Normal 0.30-0.[address] [facility] Comment on above: Performed By: #### C BC #### [facility] [address] [place] [address] Dr. Bob Nelson MONOM% 6.0 % Normal 1.7-12.[address] [facility] Comment on above: Performed By: #### C BC #### [facility] [address] [place] [address] Dr. Bob Nelson MPV 9.4 fL Critically low 9.5-13.5 [facility] Comment on above: Performed By: #### C BC #### [facility] [address] [place] [address] Dr. Bob Nelson MYELOCYTE # Normal [facility] Comment on above: Performed By: #### C BC #### [facility] [address] [place] [address] Dr. Bob Nelson MYELOCYTE % Normal [facility] Comment on above: Performed By: #### C BC #### [facility] [address] [place] [address] Dr. Bob Nelson NRBC Normal [facility] Comment on above: Performed By: #### C BC #### [facility] [address] [place] [address] Dr. Bob Nelson PLT 182 103/ul Normal 150-[address] [facility] Comment on above: Performed By: #### C BC #### [facility] [address] [place] [address] Dr. Bob Nelson RBC 5.03 106/ul Normal 4.70-6.[address] [facility] Comment on above: Performed By: #### C BC #### [facility] [address] [place] [address] Dr. Bob Nelson RDW 12.9 % Normal 11.0-15.[address] [facility] Comment on above: Performed By: #### C BC #### [facility] [address] [place] [address] Dr. Bob Nelosn SEG # 9.12 103/ul Critically high 1.40-6.50 [facility] Comment on above: Performed By: #### C BC #### [facility] [address] [place] [address] Dr. Bob Nelson SEG % 86.0 % Critically high 43.0-75.0 [facility] Comment on above: Performed By: #### C BC #### [facility] [address] [place] [address] Dr. Bob Nelson WBC 10.6 103/ul Normal 4.0-11.[address] [facility] Comment on above: Performed By: #### C BC #### [facility] [address] [address] [address] Bob GONCALVES URINE PROFILEon 2 Bilirubin Ql (U) Negative Normal NEGATIVE [facility] Comment on above: Performed By: #### B MP #### [facility] [address] [place] [address] Dr. Bob Nelson Clarity (U) CLEAR Normal CLEAR [facility] Comment on above: Performed By: #### B MP #### [facility] [address] [address] [address] Bob Nelson Color (U) DK. YELLOW Normal YELLOW [facility] Comment on above: Performed By: #### B MP #### [facility] [address] [place] [address] Dr. Bob VANEGAS A micrscopic examination will be performed if indicated. Normal [facility] Comment on above: Performed By: #### B MP #### [facility] [address] [place] [address] Dr. Bob Nelson Glucose Ql (U) Negative Normal NEGATIVE [facility] Comment on above: Performed By: #### B MP #### [facility] [address] [address] [address] Bob Nelson Hemoglobin Ql (U) Negative Normal NEGATIVE [facility] Comment on above: Performed By: #### B MP #### [facility] [address] [address] [address] Bob Nelson Ketones Ql (U) Negative Normal NEGATIVE [facility] Comment on above: Performed By: #### B MP #### [facility] [address] [address] [address] Bob Nelson LEUKOCYTES Negative Normal NEGATIVE [facility] Comment on above: Performed By: #### B MP #### [facility] [address] [place] [address] Dr. Bob Nelson Nitrite Ql (U) Negative Normal NEGATIVE [facility] Comment on above: Performed By: #### B MP #### [facility] [address] [place] [address] Dr. Bob Nelson pH (U) 6.5 [pH] Normal 5-[address] [facility] Comment on above: Performed By: #### B MP #### [facility] [address] [place] [address] Dr. Bob Nelson Protein (U) [Mass/Vol] 30 mg/dL Abnormal NEGAT TOMMY/ TRACE [facility] Comment on above: Performed By: #### B MP #### [facility] [address] [place] [address] Dr. Bob Nelson SPEC GRAVITY 1.025 Normal 1.005-<=1.[address] [facility] Comment on above: Performed By: #### B MP #### [facility] [address] [place] [address] Dr. Bob Nelson UR MICRO IND INDICATED Normal [facility] Comment on above: Performed By: #### B MP #### [facility] [address] [place] [address] Dr. Bob Nelson Urobilinogen Qn (U) 0.2 {Lance'U}/dL Normal 0.2 - 1. [address] [facility] Comment on above: Performed By: #### B MP #### [facility] [address] [place] [address] Dr. Bob Nelson PROF CHEM 8 (BAS METB)on Anion gap [Moles/Vol] 7.2 mmol/L Normal [facility] Comment on above: Performed By: #### B MP #### [facility] [address] [place] [address] Dr. Bob Nelson Calcium [Mass/Vol] 9.0 mg/dL Normal 8.5-10.[address] [facility] Comment on above: Performed By: #### B MP #### [facility] [address] [place] [address] Dr. Bob Nelson Chloride [Moles/Vol] 98 mmol/L Normal 98-[address] [facility] Comment on above: Performed By: #### B MP #### [facility] [address] [place] [address] Dr. Bob Nelson CO2 [Moles/Vol] 30.9 mmol/L Normal 21.0-32.0 [facility] Comment on above: Performed By: #### B MP #### [facility] [address] [place] [address] Dr. Bob Nelson Creatinine [Mass/Vol] 0.96 mg/dL Normal 0.70-1.[address] [facility] Comment on above: Performed By: #### B MP #### [facility] [address] [address] [address] Bob Nelson EGFR-AF BURMESE >60 Normal >=60 [facility] Comment on above: Performed By: #### B MP #### [facility] [address] [place] [address] Dr. Bob Nelson EGFR-NON AF BURMESE >60 Normal >=[address] [facility] Comment on above: Performed By: #### B MP #### [facility] [address] [place] [address] Dr. oBb Nelson Glucose [Mass/Vol] 132 mg/dL Critically high 74-106 [facility] Comment on above: Performed By: #### B MP #### [facility] [address] [place] [address] Dr. Bob Nelson Potassium [Moles/Vol] 4.1 mmol/L Normal 3.5-5.[address] [facility] Comment on above: Performed By: #### B MP #### [facility] [address] [place] [address] Dr. Bob Nelson Sodium [Moles/Vol] 132 mmol/L Critically low 136-145 [facility] Comment on above: Performed By: #### B MP #### [facility] [address] [place] [address] Dr. Bob Nelson Urea nitrogen [Mass/Vol] 13.0 mg/dL Normal 7.0-18.[address] [facility] Comment on above: Performed By: #### B MP #### [facility] [address] [place] [address] Dr. Bob Nelson Urea nitrogen/Creatinine [Mass ratio] 13.5 mg/mg Normal [facility] Comment on above: Performed By: #### B MP #### [facility] [address] [address] [address] Bob Nelson URINE MICROSCOPIC ONLYon BACTERIA NONE SEEN Normal NONE SEEN [facility] Comment on above: Performed By: #### B MP #### [facility] [address] [place] [address] Dr. Bob Nelson Bacteria identified Cx Nom (U) NOT INDICATED Normal [facility] Comment on above: Performed By: #### B MP #### [facility] [address] [place] [address] Dr. Bob Nelson CAST SEEN Abnormal NONE SEEN [facility] Comment on above: Performed By: #### B MP #### [facility] [address] [place] [address] Dr. Bob Nelson Crystals LM Nom (Urine sed) NONE SEEN Normal NONE SEEN [facility] Comment on above: Performed By: #### B MP #### [facility] [address] [place] [address] Dr. Bob Nelson Epithelial cells LM Ql (Urine sed) NONE SEEN Normal NONE SEEN /RARE [facility] Comment on above: Performed By: #### B MP #### [facility] [address] [place] [address] Dr. Bob Nelson MUCOUS NONE SEEN Normal NONE SEEN [facility] Comment on above: Performed By: #### B MP #### [facility] [address] [place] [address] Dr. Bob Nelson RBC NONE SEEN Abnormal 0-[address] [facility] Comment on above: Performed By: #### B MP #### [facility] [address] [place] [address] Dr. Bob Nelson WBC NONE SEEN Normal NONE SEEN [facility] Comment on above: Performed By: #### B MP #### [facility] [address] [place] [address] Dr. Bob Nelson XR CHEST 1 Von [...] by: TRINITY GARY Date: 2022-06-11 09:[address] [facility] LAMOTRIGINEon 05-22-2022 Lamotrigine, Serum 5.5 ug/mL Normal 2.0-20.[address] [facility] Comment on above: Result Comment: Dete ction Limit = 1.0 Performed By: #### L AMOT #### [facility] [address] [place] [address] Dr. Bob Nelson CBC AUTO DIFFon 04-24-2022 BASO # 0.0 103/ul Normal 0.0-0.[address] [facility] Comment on above: Performed By: #### C BC #### [facility] [address] [place] [address] Dr. Bob Nelson Basophils/100 WBC (Bld) 0.5 % Normal 0.2-2.0 [facility] Comment on above: Performed By: #### C BC #### [facility] [address] [place] [address] Dr. Bob Nelson EO # 0.1 103/ul Normal 0.0-0.[address] [facility] Comment on above: Performed By: #### C BC #### [facility] [address] [place] [address] Dr. Bob Nelson Eosinophils/100 WBC (Bld) 1.8 % Normal 0.9-7.[address] [facility] Comment on above: Performed By: #### C BC #### [facility] [address] [place] [address] Dr. Bob Nelson Erythrocyte distribution width (RBC) [Ratio] 12.6 % Normal 11.0-15.[address] [facility] Comment on above: Performed By: #### C BC #### [facility] [address] [place] [address] Dr. Bob Nelson Hematocrit (Bld) [Volume fraction] 48.4 % Normal 42.0-54.[address] [facility] Comment on above: Performed By: #### C BC #### [facility] [address] [place] [address] Dr. Bob Nelson Hemoglobin (Bld) [Mass/Vol] 17.2 g/dL Normal 14.0-18.[address] [facility] Comment on above: Performed By: #### C BC #### [facility] [address] [place] [address] Dr. Bob Nelson IG # 0.02 10e3/ul Normal 0.00-0.[address] [facility] Comment on above: Performed By: #### C BC #### [facility] [address] [place] [address] Dr. Bob Nelson IG % 0.3 % Normal 0.0-0.[address] [facility] Comment on above: Performed By: #### C BC #### [facility] [address] [place] [address] Dr. Bob Nelson LYMPH # 2.6 103/ul Normal 1.2-3.[address] [facility] Comment on above: Performed By: #### C BC #### [facility] [address] [place] [address] Dr. Bob Nelson Lymphocytes/100 WBC (Bld) 39.4 % Normal 20.5-60.[address] [facility] Comment on above: Performed By: #### C BC #### [facility] [address] [place] [address] Dr. Bob Nelson MANUAL DIFF REQ NO Normal [facility] Comment on above: Performed By: #### C BC #### [facility] [address] [place] [address] Dr. Bob Nelson MCH (RBC) [Entitic mass] 29.0 pg Normal 25.9-34.[address] [facility] Comment on above: Performed By: #### C BC #### [facility] [address] [place] [address] Dr. Bob Nelson MCHC (RBC) [Mass/Vol] 35.5 g/dL Critically high 29.9-35.[address] [facility] Comment on above: Performed By: #### C BC #### [facility] [address] [place] [address] Dr. Bob Nelson MCV (RBC) [Entitic vol] 81.6 fL Normal 80.0-94.0 [facility] Comment on above: Performed By: #### C BC #### [facility] [address] [place] [address] Dr. Bob Nelson MONO # 0.5 103/ul Normal 0.3-0.[address] [facility] Comment on above: Performed By: #### C BC #### [facility] [address] [place] [address] Dr. Bob Nelson Monocytes/100 WBC (Bld) 8.2 % Normal 1.7-12.0 [facility] Comment on above: Performed By: #### C BC #### [facility] [address] [place] [address] Dr. Bob Nelson NEUT # 3.3 103/ul Normal 1.4-6.[address] [facility] Comment on above: Performed By: #### C BC #### [facility] [address] [place] [address] Dr. Bob Nelson Neutrophils/100 WBC (Bld) 49.8 % Normal 43.0-75.[address] [facility] Comment on above: Performed By: #### C BC #### [facility] [address] [place] [address] Dr. Bob Nelson Platelet mean volume (Bld) [Entitic vol] 9.5 fL Normal 9.5-13.[address] [facility] Comment on above: Performed By: #### C BC #### [facility] [address] [place] [address] Dr. Bob Nelson PLT 225 103/ul Normal 150-[address] [facility] Comment on above: Performed By: #### C BC #### [facility] [address] [place] [address] Dr. Bob Nelson RBC 5.93 106/ul Normal 4.70-6.[address] [facility] Comment on above: Performed By: #### C BC #### [facility] [address] [place] [address] Dr. Bob Nelson WBC 6.6 103/ul Normal 4.0-11.[address] [facility] Comment on above: Performed By: #### C BC #### [facility] [address] [place] [address] Dr. Bob Nelson DRUG SCREEN RAPID (URINE)on 04-24-2022 AMP Negative Normal NEGATIVE [facility] Comment on above: Performed By: #### B MP #### [facility] [address] [place] [address] Dr. Bob Nelson BAR Negative Normal NEGATIVE [facility] Comment on above: Performed By: #### B MP #### [facility] [address] [place] [address] Dr. Bob Nelson BUP Negative Normal NEGATIVE [facility] Comment on above: Performed By: #### B MP #### [facility] [address] [place] [address] Dr. Bob Nelson BZO Negative Normal NEGATIVE [facility] Comment on above: Performed By: #### B MP #### [facility] [address] [place] [address] Dr. Bob Nelson BETHANIE Negative Normal NEGATIVE [facility] Comment on above: Performed By: #### B MP #### [facility] [address] [place] [address] Dr. Bob Nelson CUT-OFFS SEE BELOW Normal [facility] Comment on above: Result Comment: AMP [...] ng/mL Performed By: #### B MP #### [facility] [address] [place] [address] Dr. Bob Nelson DRUG CUT HEADER DRUG CLASS TEST SYSTEM CUT-OFF CONCENTRATIONS ARE FOLLOWS: Normal [facility] Comment on above: Performed By: #### B MP #### [facility] [address] [place] [address] Dr. Bob Nelson mAMP Negative Normal NEGATIVE [facility] Comment on above: Performed By: #### B MP #### [facility] [address] [place] [address] Dr. Bob Nelson MTD Negative Normal NEGATIVE [facility] Comment on above: Performed By: #### B MP #### [facility] [address] [place] [address] Dr. Bob Nelson OPI Negative Normal NEGATIVE [facility] Comment on above: Performed By: #### B MP #### [facility] [address] [place] [address] Dr. Bob Nelson OXY Negative Normal NEGATIVE [facility] Comment on above: Performed By: #### B MP #### [facility] [address] [place] [address] Dr. Bob Nelson PCP Negative Normal NEGATIVE [facility] Comment on above: Performed By: #### B MP #### [facility] [address] [place] [address] Dr. Bob Nelson PPX Negative Normal NEGATIVE [facility] Comment on above: Performed By: #### B MP #### [facility] [address] [place] [address] Dr. Bob Nelson TCA Negative Normal NEGATIVE [facility] Comment on above: Performed By: #### B MP #### [facility] [address] [place] [address] Dr. Bob Nelson THC Negative Normal NEGATIVE [facility] Comment on above: Performed By: #### B MP #### [facility] [address] [place] [address] Dr. Bob Nelson ER URINE PROFILEon 2 Bilirubin Ql (U) Negative Normal NEGATIVE [facility] Comment on above: Performed By: #### C MP #### [facility] [address] [place] [address] Dr. Bob Nelson Clarity (U) CLEAR Normal CLEAR [facility] Comment on above: Performed By: #### C MP #### [facility] [address] [place] [address] Dr. Bob Nelson Color (U) YELLOW Normal YELLOW [facility] Comment on above: Performed By: #### C MP #### [facility] [address] [place] [address] Dr. Bob Nelson ERUFABY A micrscopic examination will be performed if indicated. Normal [facility] Comment on above: Performed By: #### C MP #### [facility] [address] [place] [address] Dr. Bob Nelson Glucose Ql (U) Negative Normal NEGATIVE [facility] Comment on above: Performed By: #### C MP #### [facility] [address] [place] [address] Dr. Bob Nelson Hemoglobin Ql (U) Negative Normal NEGATIVE [facility] Comment on above: Performed By: #### C MP #### [facility] [address] [place] [address] Dr. Bob Nelson Ketones Ql (U) Negative Normal NEGATIVE [facility] Comment on above: Performed By: #### C MP #### [facility] [address] [place] [address] Dr. Bob Nelson LEUKOCYTES Negative Normal NEGATIVE [facility] Comment on above: Performed By: #### C MP #### [facility] [address] [place] [address] Dr. Bob Nelson Nitrite Ql (U) Negative Normal NEGATIVE [facility] Comment on above: Performed By: #### C MP #### [facility] [address] [place] [address] Dr. Bob Nelson pH (U) 5.5 [pH] Normal 5-[address] [facility] Comment on above: Performed By: #### C MP #### [facility] [address] [address] [address] Bob Nelson Protein (U) [Mass/Vol] 100 mg/dL Abnormal NEGAT TOMMY/ TRACE [facility] Comment on above: Performed By: #### C MP #### [facility] [address] [address] [address] Bob Nelson SPEC GRAVITY >=1.030 Abnormal 1.005-<=1.[address] [place] [address] Comment on above: Performed By: #### C MP #### [facility] [address] [place] [address] Dr. Bob Nelson UR MICRO IND INDICATED Normal [facility] Comment on above: Performed By: #### C MP #### [facility] [address] [place] [address] Dr. Bob Nelson Urobilinogen Qn (U) 0.2 {Lance'U}/dL Normal 0.2 - 1. [address] [facility] Comment on above: Performed By: #### C MP #### [facility] [address] [place] [address] Dr. Bob Nelson PROF 14(COMP METB)on 022 Albumin [Mass/Vol] 4.3 g/dL Normal 3.4-5.[address] [facility] Comment on above: Performed By: #### C MP #### [facility] [address] [place] [address] Dr. Bob Nelson Albumin/Globulin [Mass ratio] 1.2 {ratio} Normal [facility] Comment on above: Performed By: #### C MP #### [facility] [address] [place] [address] Dr. Bob Nelson ALP [Catalytic activity/Vol] 104 U/L Normal 46-[address] [facility] Comment on above: Performed By: #### C MP #### [facility] [address] [address] [address] Bob Nelson ALT [Catalytic activity/Vol] 64 U/L Critically high 16-[address] [facility] Comment on above: Performed By: #### C MP #### [facility] [address] [address] [address] Bob Nelson Anion gap [Moles/Vol] 19.9 mmol/L Normal [facility] Comment on above: Performed By: #### C MP #### [facility] [address] [place] [address] Dr. Bob Nelson AST [Catalytic activity/Vol] 26 U/L Normal 15-[address] [facility] Comment on above: Performed By: #### C MP #### [facility] [address] [address] [address] Bob Nelson Bilirubin [Mass/Vol] 0.3 mg/dL Normal 0.2-1.[address] [facility] Comment on above: Performed By: #### C MP #### [facility] [address] [place] [address] Dr. Bob Nelson Calcium [Mass/Vol] 9.4 mg/dL Normal 8.5-10.[address] [facility] Comment on above: Performed By: #### C MP #### [facility] [address] [place] [address] Dr. Bob Nelson Chloride [Moles/Vol] 101 mmol/L Normal 98-[address] [facility] Comment on above: Performed By: #### C MP #### [facility] [address] [place] [address] Dr. Bob Nelson CO2 [Moles/Vol] 20.8 mmol/L Critically low 21.0-32.[address] [facility] Comment on above: Performed By: #### C MP #### [facility] [address] [place] [address] Dr. Bob Nelson Creatinine [Mass/Vol] 1.16 mg/dL Normal 0.70-1.[address] [facility] Comment on above: Performed By: #### C MP #### [facility] [address] [place] [address] Dr. Bob Nelson EGFR-AF BURMESE >60 Normal >=60 [facility] Comment on above: Performed By: #### C MP #### [facility] [address] [place] [address] Dr. Bob Nelson EGFR-NON AF BURMESE >60 Normal >=[address] [facility] Comment on above: Performed By: #### C MP #### [facility] [address] [place] [address] Dr. Bob Nelson Globulin (S) [Mass/Vol] 3.6 g/dL Normal [facility] Comment on above: Performed By: #### C MP #### [facility] [address] [address] [address] Bob Nelson Glucose [Mass/Vol] 152 mg/dL Critically high 74-106 [facility] Comment on above: Performed By: #### C MP #### [facility] [address] [place] [address] Dr. Bob Nelson Potassium [Moles/Vol] 3.7 mmol/L Normal 3.5-5.[address] [facility] Comment on above: Performed By: #### C MP #### [facility] [address] [place] [address] Dr. Bob Nelson Protein [Mass/Vol] 7.9 g/dL Normal 6.4-8.[address] [facility] Comment on above: Performed By: #### C MP #### [facility] [address] [place] [address] Dr. Bob Nelson Sodium [Moles/Vol] 138 mmol/L Normal 136-[address] [facility] Comment on above: Performed By: #### C MP #### [facility] [address] [place] [address] Dr. Bob Nelson Urea nitrogen [Mass/Vol] 12.0 mg/dL Normal 7.0-18.[address] [facility] Comment on above: Performed By: #### C MP #### [facility] [address] [place] [address] Dr. Bob Nelson Urea nitrogen/Creatinine [Mass ratio] 10.3 mg/mg Normal [facility] Comment on above: Performed By: #### C MP #### [facility] [address] [place] [address] Dr. Bob Nelson TSHon 04-24-2022 TSH 3.982 uIU/mL Critically high 0.358-3.[address] [facility] Comment on above: Performed By: #### C MP #### [facility] [address] [place] [address] Dr. Bob Nelson URINE MICROSCOPIC ONLYon BACTERIA NONE SEEN Normal NONE SEEN [facility] Comment on above: Performed By: #### C MP #### [facility] [address] [place] [address] Dr. Bob Nelson Bacteria identified Cx Nom (U) NOT INDICATED Normal [facility] Comment on above: Performed By: #### C MP #### [facility] [address] [place] [address] Dr. Bob Nelson CAST SEEN Abnormal NONE [facility] Comment on above: Performed By: #### C MP #### [facility] [address] [place] [address] Dr. Bob Nelson Crystals LM Nom (Urine sed) NONE SEEN Normal NONE SEEN [facility] Comment on above: Performed By: #### C MP #### [facility] [address] [place] [address] Dr. Bob Nelson Epithelial cells LM Ql (Urine sed) RARE Normal NONE SEEN /RARE [facility] Comment on above: Performed By: #### C MP #### [facility] [address] [place] [address] Dr. Bob Nelson HYALINE CAST RARE Normal [facility] Comment on above: Performed By: #### C MP #### [facility] [address] [place] [address] Dr. Bob Nelson MUCOUS NONE SEEN Normal NONE SEEN [facility] Comment on above: Performed By: #### C MP #### [facility] [address] [place] [address] Dr. Bob Nelson RBC NONE SEEN Abnormal 0-[address] [facility] Comment on above: Performed By: #### C MP #### [facility] [address] [place] [address] Dr. Bob Nelson WBC NONE SEEN Normal NONE SEEN [facility] Comment on above: Performed By: #### C MP #### [facility] [address] [address] [address] Bob Nelson No Panel InformationOrdered By: Derek Burks on 04-12-2022 Semen Analysis Comment . [facility] Comment on above: NO SPERM SEEN CONFIR MED BY SECOND TECH/@KWJ&STEVAN Semen WBC Concentration <1.0 M/mL <0.9 [facility] Sperm % Non-Motile TNP [facility] Comment on above: Test not performed Sperm Motility Total [facility] Comment on above: Test not performed Qualitative semen viscosityO rdered By: Derek Burks on 04-12-2022 Viscosity Ql (Jeanie) Normal Normal [facility] Semen Analysis, Fertilityon 04-12-2022 Immotile Sperm Not performed Normal [facility] Comment on above: Order Comment: Metho d of Collection:: Masturbation Has the patient had a vasectomy?: N Type of Specimen Container:: Sterile Container Abstinence Period:: 48 HRS Kept at body temperature?: Y Any Collection or Transport Problems?: NO Performed By: #### S EMCOMP #### [facility] [address] [place] [address] [place] Non-Progression Sperm Motili Not performed [facility] Comment on above: Order Comment: Metho d of Collection:: Masturbation Has the patient had a vasectomy?: N Type of Specimen Container:: Sterile Container Abstinence Period:: 48 HRS Kept at body temperature?: Y Any Collection or Transport Problems?: NO Performed By: #### S EMCOMP #### [facility] [address] Normal Sperm Morphology Not performed Normal >=4.0 [facility] Comment on above: Order Comment: Metho d of Collection:: Masturbation Has the patient had a vasectomy?: N Type of Specimen Container:: Sterile Container Abstinence Period:: 48 HRS Kept at body temperature?: Y Any Collection or Transport Problems?: NO Performed By: #### S EMCOMP #### [facility] [address] [id number] [place] Rapid Progression Sperm Motili Not performed Normal [facility] Comment on above: Order Comment: Metho d of Collection:: Masturbation Has the patient had a vasectomy?: N Type of Specimen Container:: Sterile Container Abstinence Period:: 48 HRS Kept at body temperature?: Y Any Collection or Transport Problems?: NO Performed By: #### S EMCOMP #### [facility] [address] [place] [address] Semen Comment . Normal [facility] Comment on above: Order Comment: Metho d of Collection:: Masturbation Has the patient had a vasectomy?: N Type of Specimen Container:: Sterile Container Abstinence Period:: 48 HRS Kept at body temperature?: Y Any Collection or Transport Problems?: NO Result Comment: NO S PERM SEEN CONFIRMED BY SECOND TECH/@KWJ STEVAN PERFORMED BY: [place] [address] PATHOLOGIST INDUCTION HEAT TREATER CARLITA SEALS M.D. Performed By: #### S EMCOMP #### [address] Semen Liquefaction Normal Normal <=[address] [facility] Comment on above: Order Comment: Metho d of Collection:: Masturbation Has the patient had a vasectomy?: N Type of Specimen Container:: Sterile Container Abstinence Period:: 48 HRS Kept at body temperature?: Y Any Collection or Transport Problems?: NO Performed By: #### S EMCOMP #### [address] Semen Viscosity Normal Normal Normal [facility] Comment on above: Order Comment: Metho d of Collection:: Masturbation Has the patient had a vasectomy?: N Type of Specimen Container:: Sterile Container Abstinence Period:: 48 HRS Kept at body temperature?: Y Any Collection or Transport Problems?: NO Performed By: #### S EMCOMP #### [place] [address] [place] Semen Volume 1.0 mL Low >=1.5 [facility] Comment on above: Order Comment: Metho d of Collection:: Masturbation Has the patient had a vasectomy?: N Type of Specimen Container:: Sterile Container Abstinence Period:: 48 HRS Kept at body temperature?: Y Any Collection or Transport Problems?: NO Performed By: #### S EMCOMP #### [facility] [address] Sperm Concentration <2.0 Low >=15 [facility] Comment on above: Order Comment: Metho d of Collection:: Masturbation Has the patient had a vasectomy?: N Type of Specimen Container:: Sterile Container Abstinence Period:: 48 HRS Kept at body temperature?: Y Any Collection or Transport Problems?: NO Result Comment: Suboptimal specimen. Unable to perform morphology testing. Performed By: #### S EMCOMP #### [address] Total Motility (IA+TECHNICAL TRAINING COORDINATOR) Not performed Normal >=40 (IA+TECHNICAL TRAINING COORDINATOR) [facility] Comment on above: Order Comment: Metho d of Collection:: Masturbation Has the patient had a vasectomy?: N Type of Specimen Container:: Sterile Container Abstinence Period:: 48 HRS Kept at body temperature?: Y Any Collection or Transport Problems?: NO Performed By: #### S EMCOMP #### [address] WBC Concent, Semen <1.0 Normal <1.[address] [facility] Comment on above: Order Comment: Metho d of Collection:: Masturbation Has the patient had a vasectomy?: N Type of Specimen Container:: Sterile Container Abstinence Period:: 48 HRS Kept at body temperature?: Y Any Collection or Transport Problems?: NO Performed By: #### S EMCOMP #### [address] Semen Analysis, FertilityOrd ered By: Derek Burks on 04-12-2022 Semen Appearance Normal Normal Normal [facility] Comment on above: Order Comment: Metho d of Collection:: Masturbation Has the patient had a vasectomy?: N Type of Specimen Container:: Sterile Container Abstinence Period:: 48 HRS Kept at body temperature?: Y Any Collection or Transport Problems?: NO Performed By: #### S EMCOMP #### [address] Semen pH 6.0 Low >=7.2 [facility] Comment on above: Order Comment: Metho d of Collection:: Masturbation Has the patient had a vasectomy?: N Type of Specimen Container:: Sterile Container Abstinence Period:: 48 HRS Kept at body temperature?: Y Any Collection or Transport Problems?: NO Performed By: #### S EMCOMP #### [facility] [address] Semen liquefaction time abhinav urementOrdered By: Derek Burks on 04-12-2022 Liquefaction (Jeanie) [Time] Normal <=60 min [facility] Semen volumeOrdered By: Celso Burks on 04-12-2022 Specimen volume (Jeanie) 1.0 mL >1.5 [facility] Sperm countOrdered By: Derek Burks on 04-12-2022 [place]per[place] (Jeanie) [#/Vol] <2.0 M/mL >15 [facility] Comment on above: Suboptimal specimen. Unable to perform morphology testing. Sperm morphologyOrdered By: Derek Burks on 04-12-2022 [place] Nom (Jeanie) TNP [facility] Comment on above: Test not performed LAMOTRIGINEon 04-09-2022 Lamotrigine, Serum 6.7 ug/mL Normal 2.0-20.[address] [facility] Comment on above: Result Comment: Dete ction Limit = 1.0 Performed By: #### C BC #### [facility] [address] [address] [address] Bob Nelson LAMOTRIGINEon 03-02-2022 Lamotrigine, Serum 2.3 ug/mL Normal 2.0-20.[address] [facility] Comment on above: Result Comment: Dete ction Limit = 1.0 Performed By: #### C MP #### [facility] [address] [place] [address] Dr. Bob Nelson OXCARBAZEPINEon 03-01-2022 Oxcarbazepine 5 ug/mL Critically low 10-35 [facility] Comment on above: Result Comment: This test was developed and its performance characteristics determined by [facility]. It has not been cleared or approved by the Food and Drug Administration. Detection Limit = 1 Performed By: #### B MP #### [facility] [address] [place] [address] Dr. Bob Nelson CBC AUTO DIFFon 02-28-2022 BASO # 0.0 103/ul Normal 0.0-0.[address] [facility] Comment on above: Performed By: #### C MP #### [facility] [address] [place] [address] Dr. Bob Nelson Basophils/100 WBC (Bld) 0.5 % Normal 0.2-2.0 [facility] Comment on above: Performed By: #### C MP #### [facility] [address] [place] [address] Dr. Bob Nelson EO # 0.1 103/ul Normal 0.0-0.[address] [facility] Comment on above: Performed By: #### C MP #### [facility] [address] [place] [address] Dr. Bob Nelson Eosinophils/100 WBC (Bld) 0.9 % Normal 0.9-7.[address] [facility] Comment on above: Performed By: #### C MP #### [facility] [address] [place] [address] Dr. Bob Nelson Erythrocyte distribution width (RBC) [Ratio] 12.8 % Normal 11.0-15.[address] [facility] Comment on above: Performed By: #### C MP #### [facility] [address] [place] [address] Dr. Bob Nelson Hematocrit (Bld) [Volume fraction] 43.8 % Normal 42.0-54.[address] [facility] Comment on above: Performed By: #### C MP #### [facility] [address] [place] [address] Dr. Bob Nelson Hemoglobin (Bld) [Mass/Vol] 14.9 g/dL Normal 14.0-18.[address] [facility] Comment on above: Performed By: #### C MP #### [facility] [address] [place] [address] Dr. Bob Nelson IG # 0.02 10e3/ul Normal 0.00-0.[address] [facility] Comment on above: Performed By: #### C MP #### [facility] [address] [place] [address] Dr. Bob Nelson IG % 0.3 % Normal 0.0-0.[address] [facility] Comment on above: Performed By: #### C MP #### [facility] [address] [place] [address] Dr. Bob Nelson LYMPH # 2.2 103/ul Normal 1.2-3.[address] [facility] Comment on above: Performed By: #### C MP #### [facility] [address] [place] [address] Dr. Bob Nelson Lymphocytes/100 WBC (Bld) 34.0 % Normal 20.5-60.[address] [facility] Comment on above: Performed By: #### C MP #### [facility] [address] [place] [address] Dr. Bob Nelson MANUAL DIFF REQ NO Normal [facility] Comment on above: Performed By: #### C MP #### [facility] [address] [place] [address] Dr. Bob Nelson MCH (RBC) [Entitic mass] 28.4 pg Normal 25.9-34.[address] [facility] Comment on above: Performed By: #### C MP #### [facility] [address] [place] [address] Dr. Bob Nelson MCHC (RBC) [Mass/Vol] 34.0 g/dL Normal 29.9-35.[address] [facility] Comment on above: Performed By: #### C MP #### [facility] [address] [place] [address] Dr. Bob Nelson MCV (RBC) [Entitic vol] 83.6 fL Normal 80.0-94.0 [facility] Comment on above: Performed By: #### C MP #### [facility] [address] [place] [address] Dr. Bob Nelson MONO # 0.5 103/ul Normal 0.3-0.[address] [facility] Comment on above: Performed By: #### C MP #### [facility] [address] [address] [address] Bob Nelson Monocytes/100 WBC (Bld) 7.9 % Normal 1.7-12.0 [facility] Comment on above: Performed By: #### C MP #### [facility] [address] [place] [address] Dr. Bob Nelson NEUT # 3.6 103/ul Normal 1.4-6.[address] [facility] Comment on above: Performed By: #### C MP #### [facility] [address] [place] [address] Dr. Bob Nelson Neutrophils/100 WBC (Bld) 56.4 % Normal 43.0-75.[address] [facility] Comment on above: Performed By: #### C MP #### [facility] [address] [place] [address] Dr. Bob Nelson Platelet mean volume (Bld) [Entitic vol] 9.5 fL Normal 9.5-13.[address] [facility] Comment on above: Performed By: #### C MP #### [facility] [address] [place] [address] Dr. Bob Nelson PLT 192 103/ul Normal 150-[address] [facility] Comment on above: Performed By: #### C MP #### [facility] [address] [place] [address] Dr. Bob Nelson RBC 5.24 106/ul Normal 4.70-6.[address] [facility] Comment on above: Performed By: #### C MP #### [facility] [address] [place] [address] Dr. Bob Nelson WBC 6.4 103/ul Normal 4.0-11.[address] [facility] Comment on above: Performed By: #### C MP #### [facility] [address] [place] [address] Dr. Bob Nelson PROF 14(COMP METB)on 022 Albumin [Mass/Vol] 3.9 g/dL Normal 3.4-5.[address] [facility] Comment on above: Performed By: #### C MP #### [facility] [address] [address] [address] Bob Nelson Albumin/Globulin [Mass ratio] 1.3 {ratio} Normal [facility] Comment on above: Performed By: #### C MP #### [facility] [address] [address] [address] Bob Nelson ALP [Catalytic activity/Vol] 68 U/L Normal 46-[address] [facility] Comment on above: Performed By: #### C MP #### [facility] [address] [address] [address] Bob Nelson ALT [Catalytic activity/Vol] 170 U/L Critically high 16-[address] [facility] Comment on above: Performed By: #### C MP #### [facility] [address] [place] [address] Dr. Bob Nelson Anion gap [Moles/Vol] 11.0 mmol/L Normal [facility] Comment on above: Performed By: #### C MP #### [facility] [address] [address] [address] Bob Nelson AST [Catalytic activity/Vol] 48 U/L Critically high 15-[address] [facility] Comment on above: Performed By: #### C MP #### [facility] [address] [address] [address] Bob Nelson Bilirubin [Mass/Vol] 0.6 mg/dL Normal 0.2-1.[address] [facility] Comment on above: Performed By: #### C MP #### [facility] [address] [address] [address] Bob Nelson Calcium [Mass/Vol] 9.1 mg/dL Normal 8.5-10.[address] [facility] Comment on above: Performed By: #### C MP #### [facility] [address] [address] [address] Bob Nelson Chloride [Moles/Vol] 105 mmol/L Normal 98-[address] [facility] Comment on above: Performed By: #### C MP #### [facility] [address] [address] [address] Bob Nelson CO2 [Moles/Vol] 28.9 mmol/L Normal 21.0-32.0 [facility] Comment on above: Performed By: #### C MP #### [facility] [address] [address] [address] Bob Nelson Creatinine [Mass/Vol] 0.96 mg/dL Normal 0.70-1.[address] [facility] Comment on above: Performed By: #### C MP #### [facility] [address] [address] [address] Bob Nelson EGFR-AF BURMESE >60 Normal >=60 [facility] Comment on above: Performed By: #### C MP #### [facility] [address] [place] [address] Dr. Bob Nelson EGFR-NON AF BURMESE >60 Normal >=[address] [facility] Comment on above: Performed By: #### C MP #### [facility] [address] [address] [address] Bob Nelson Globulin (S) [Mass/Vol] 3.0 g/dL Normal [facility] Comment on above: Performed By: #### C MP #### [facility] [address] [place] [address] Dr. Bob Nelson Glucose [Mass/Vol] 98 mg/dL Normal 74-[address] [facility] Comment on above: Performed By: #### C MP #### [facility] [address] [address] [address] Bob Nelson Potassium [Moles/Vol] 3.9 mmol/L Normal 3.5-5.[address] [facility] Comment on above: Performed By: #### C MP #### [facility] [address] [address] [address] Bob Nelson Protein [Mass/Vol] 6.9 g/dL Normal 6.4-8.[address] [facility] Comment on above: Performed By: #### C MP #### [facility] [address] [address] [address] Bob Nelson Sodium [Moles/Vol] 141 mmol/L Normal 136-[address] [facility] Comment on above: Performed By: #### C MP #### [facility] [address] [place] [address] Dr. Bob Nelson Urea nitrogen [Mass/Vol] 14.0 mg/dL Normal 7.0-18.[address] [facility] Comment on above: Performed By: #### C MP #### [facility] [address] [place] [address] Dr. Bob Nelson Urea nitrogen/Creatinine [Mass ratio] 14.6 mg/mg Normal [facility] Comment on above: Performed By: #### C MP #### [facility] [address] [place] [address] Dr. Bob Nelson CBC AUTO DIFFon 02-27-2022 BASO # 0.0 103/ul Normal 0.0-0.[address] [facility] Comment on above: Performed By: #### B MP #### [facility] [address] [place] [address] Dr. Bob Nelson Basophils/100 WBC (Bld) 0.5 % Normal 0.2-2.0 [facility] Comment on above: Performed By: #### B MP #### [facility] [address] [place] [address] Dr. Bob Nelson EO # 0.1 103/ul Normal 0.0-0.[address] [facility] Comment on above: Performed By: #### B MP #### [facility] [address] [place] [address] Dr. Bob Nelson Eosinophils/100 WBC (Bld) 0.6 % Critically low 0.9-7. [address] [facility] Comment on above: Performed By: #### B MP #### [facility] [address] [place] [address] Dr. Bob Nelson Erythrocyte distribution width (RBC) [Ratio] 12.5 % Normal 11.0-15.[address] [facility] Comment on above: Performed By: #### B MP #### [facility] [address] [place] [address] Dr. Bob Nelson Hematocrit (Bld) [Volume fraction] 46.1 % Normal 42.0-54.[address] [facility] Comment on above: Performed By: #### B MP #### [facility] [address] [place] [address] Dr. Bob Nelson Hemoglobin (Bld) [Mass/Vol] 16.1 g/dL Normal 14.0-18.[address] [facility] Comment on above: Performed By: #### B MP #### [facility] [address] [place] [address] Dr. Bob Nelson IG # 0.02 10e3/ul Normal 0.00-0.[address] [facility] Comment on above: Performed By: #### B MP #### [facility] [address] [place] [address] Dr. Bob Nelson IG % 0.3 % Normal 0.0-0.[address] [facility] Comment on above: Performed By: #### B MP #### [facility] [address] [place] [address] Dr. Bob Nelson LYMPH # 1.3 103/ul Normal 1.2-3.[address] [facility] Comment on above: Performed By: #### B MP #### [facility] [address] [place] [address] Dr. Bob Nelson Lymphocytes/100 WBC (Bld) 16.2 % Critically low 20.5-[address] [facility] Comment on above: Performed By: #### B MP #### [facility] [address] [place] [address] Dr. Bob Nelson MANUAL DIFF REQ NO Normal [facility] Comment on above: Performed By: #### B MP #### [facility] [address] [place] [address] Dr. Bob Nelson MCH (RBC) [Entitic mass] 28.6 pg Normal 25.9-34.[address] [facility] Comment on above: Performed By: #### B MP #### [facility] [address] [place] [address] Dr. Bob Nelson MCHC (RBC) [Mass/Vol] 34.9 g/dL Normal 29.9-35.[address] [facility] Comment on above: Performed By: #### B MP #### [facility] [address] [place] [address] Dr. Bob Nelson MCV (RBC) [Entitic vol] 81.9 fL Normal 80.0-94.0 [facility] Comment on above: Performed By: #### B MP #### [facility] [address] [place] [address] Dr. Bob Nelson MONO # 0.4 103/ul Normal 0.3-0.[address] [facility] Comment on above: Performed By: #### B MP #### [facility] [address] [place] [address] Dr. Bob Nelson Monocytes/100 WBC (Bld) 5.0 % Normal 1.7-12.0 [facility] Comment on above: Performed By: #### B MP #### [facility] [address] [place] [address] Dr. Bob Nelson NEUT # 6.1 103/ul Normal 1.4-6.[address] [facility] Comment on above: Performed By: #### B MP #### [facility] [address] [place] [address] Dr. Bob Nelson Neutrophils/100 WBC (Bld) 77.4 % Critically high 43.0- 75.[address] [facility] Comment on above: Performed By: #### B MP #### [facility] [address] [place] [address] Dr. Bob Nelson Platelet mean volume (Bld) [Entitic vol] 9.5 fL Normal 9.5-13.[address] [facility] Comment on above: Performed By: #### B MP #### [facility] [address] [place] [address] Dr. Bob Nelson PLT 203 103/ul Normal 150-[address] [facility] Comment on above: Performed By: #### B MP #### [facility] [address] [place] [address] Dr. Bob Nelson RBC 5.63 106/ul Normal 4.70-6.[address] [facility] Comment on above: Performed By: #### B MP #### [facility] [address], [place] [address] Dr. Bob Nelson WBC 7.9 103/ul Normal 4.0-11.[address] [facility] Comment on above: Performed By: #### B MP #### [facility] [address], [place] [address] HEAD WO CONon [...] CHERI CONNER Date: 2022-02-27 15:[address] [facility] Covid-19 PCR (CVDTB)on SARS-CoV-2 (COVID-19) RNA MAHESH+probe Ql (Unsp spec) Not detected Normal NOT DETECTED [facility] Comment on above: Result Comment: When [...] for this test is supported by the Adult Probation Officer of Health and Human Service's declaration [...] used). Performed By: #### C MP #### [facility] [address] [place] [address] Dr. Bob Nelson LACTATE/LACTIC ACIDon 2021 Lactate [Moles/Vol] 0.9 mmol/L Normal 0.4-1.9 [facility] Comment on above: Performed By: #### L ACT #### [facility] [address] [place] [address] Dr. Bob Nelson Lactate [Moles/Vol] 3.9 mmol/L Critically high 0.4-1.[address] [facility] Comment on above: Performed By: #### B MP #### [facility] [address] [place] [address] Dr. Bob Nelson PROF CHEM 8 (BAS METB)on Anion gap [Moles/Vol] 16.1 mmol/L Normal [facility] Comment on above: Performed By: #### B MP #### [facility] [address] [place] [address] Dr. Bob Nelson Calcium [Mass/Vol] 8.9 mg/dL Normal 8.5-10.[address] [facility] Comment on above: Performed By: #### B MP #### [facility] [address] [place] [address] Dr. Bob Nelson Chloride [Moles/Vol] 99 mmol/L Normal 98-[address] [facility] Comment on above: Performed By: #### B MP #### [facility] [address] [place] [address] Dr. Bob Nelson CO2 [Moles/Vol] 24.0 mmol/L Normal 21.0-32.0 [facility] Comment on above: Performed By: #### B MP #### [facility] [address] [place] [address] Dr. Bob Nelson Creatinine [Mass/Vol] 1.13 mg/dL Normal 0.70-1.[address] [facility] Comment on above: Performed By: #### B MP #### [facility] [address] [address] [address] Bob Nelson EGFR-AF BURMESE >60 Normal >=60 [facility] Comment on above: Performed By: #### B MP #### [facility] [address] [place] [address] Dr. Bob Nelson EGFR-NON AF BURMESE >60 Normal >=[address] [facility] Comment on above: Performed By: #### B MP #### [facility] [address] [address] [address] Bob Nelson Glucose [Mass/Vol] 158 mg/dL Critically high 74-106 [facility] Comment on above: Performed By: #### B MP #### [facility] [address] [place] [address] Dr. Bob Nelson Potassium [Moles/Vol] 4.1 mmol/L Normal 3.5-5.[address] [facility] Comment on above: Performed By: #### B MP #### [facility] [address] [place] [address] Dr. Bob Nelson Sodium [Moles/Vol] 135 mmol/L Critically low 136-145 [facility] Comment on above: Performed By: #### B MP #### [facility] [address] [place] [address] Dr. Bob Nelson Urea nitrogen [Mass/Vol] 15.0 mg/dL Normal 7.0-18.[address] [facility] Comment on above: Performed By: #### B MP #### [facility] [address] [place] [address] Dr. Bob Nelson Urea nitrogen/Creatinine [Mass ratio] 13.3 mg/mg Normal [facility] Comment on above: Performed By: #### B MP #### [facility] [address] [place] [address] Dr. Bob Nelson UA (CLEAN/CATCH) TRACTOR TRAILER DRIVER/MICRO I F IND.on 02-27-2022 Bilirubin Ql (U) Negative Normal NEGATIVE [facility] Comment on above: Performed By: #### C MP #### [facility] [address] [place] [address] Dr. Bob Nelson Clarity (U) CLEAR Normal CLEAR [facility] Comment on above: Performed By: #### C MP #### [facility] [address] [place] [address] Dr. Bob Nelson Color (U) LT. YELLOW Normal YELLOW [facility] Comment on above: Performed By: #### C MP #### [facility] [address] [place] [address] Dr. Bob Nelson Glucose Ql (U) Negative Normal NEGATIVE [facility] Comment on above: Performed By: #### C MP #### [facility] [address] [place] [address] Dr. Bob Nelson Hemoglobin Ql (U) TRACE-INTACT Abnormal NEGATIVE [facility] Comment on above: Performed By: #### C MP #### [facility] [address] [place] [address] Dr. Bob Nelson Ketones Ql (U) Negative Normal NEGATIVE [facility] Comment on above: Performed By: #### C MP #### [facility] [address] [place] [address] Dr. Bob Nelson LEUKOCYTES Negative Normal NEGATIVE [facility] Comment on above: Performed By: #### C MP #### [facility] [address] [place] [address] Dr. Bob Nelson Nitrite Ql (U) Negative Normal NEGATIVE [facility] Comment on above: Performed By: #### C MP #### [facility] [address] [place] [address] Dr. Bob Nelson pH (U) 5.5 [pH] Normal 5-[address] [facility] Comment on above: Performed By: #### C MP #### [facility] [address] [place] [address] Dr. Bob Nelson SPEC GRAVITY 1.010 Normal 1.005-<=1.[address] [facility] Comment on above: Performed By: #### C MP #### [facility] [address] [place] [address] Dr. Bob Nelson UA PROTEIN Negative Normal NEGATIVE/ TRACE [facility] Comment on above: Performed By: #### C MP #### [facility] [address] [place] [address] Dr. Bob Nelson UR MICRO IND INDICATED Normal [facility] Comment on above: Performed By: #### C MP #### [facility] [address] [place] [address] Dr. Bob Nelson Urobilinogen Qn (U) 0.2 {Lance'U}/dL Normal 0.2 - 1. [address] [facility] Comment on above: Performed By: #### C MP #### [facility] [address] [place] [address] Dr. Bob Nelson URINE MICROSCOPIC ONLYon BACTERIA NONE SEEN Normal NONE SEEN [facility] Comment on above: Performed By: #### C MP #### [facility] [address] [place] [address] Dr. Bob Nelson Bacteria identified Cx Nom (U) NOT INDICATED Normal [facility] Comment on above: Performed By: #### C MP #### [facility] [address] [place] [address] Dr. Bob Nelson CAST NONE SEEN Normal NONE SEEN [facility] Comment on above: Performed By: #### C MP #### [facility] [address] [place] [address] Dr. Bob Nelson Crystals LM Nom (Urine sed) NONE SEEN Normal NONE SEEN [facility] Comment on above: Performed By: #### C MP #### [facility] [address] [place] [address] Dr. Bob Nelson Epithelial cells LM Ql (Urine sed) RARE Normal NONE SEEN /RARE [facility] Comment on above: Performed By: #### C MP #### [facility] [address] [place] [address] Dr. Bob Nelson MUCOUS NONE SEEN Normal NONE SEEN [facility] Comment on above: Performed By: #### C MP #### [facility] [address] [place] [address] Dr. Bob Nelson RBC 0-2 Normal 0-[address] [facility] Comment on above: Performed By: #### C MP #### [facility] [address] [address] [address] Bob Nelson WBC NONE SEEN Normal NONE SEEN [facility] Comment on above: Performed By: #### C MP #### [facility] [address] [address] [address] Bob Nelson XR CHEST 2 Von [...] CHERI CONNER Date: 2022-02-27 15:[address] [facility] CBC AUTO DIFFon 02-02-2022 BASO # 0.0 103/ul Normal 0.0-0.[address] [facility] Comment on above: Performed By: #### C MP #### [facility] [address] [place] [address] Dr. Bob Nelson Basophils/100 WBC (Bld) 0.2 % Normal 0.2-2.0 [facility] Comment on above: Performed By: #### C MP #### [facility] [address] [place] [address] Dr. Bob Nelson EO # 0.1 103/ul Normal 0.0-0.[address] [facility] Comment on above: Performed By: #### C MP #### [facility] [address] [place] [address] Dr. Bob Nelson Eosinophils/100 WBC (Bld) 0.7 % Critically low 0.9-7. [address] [facility] Comment on above: Performed By: #### C MP #### [facility] [address] [place] [address] Dr. Bob Nelson Erythrocyte distribution width (RBC) [Ratio] 12.4 % Normal 11.0-15.[address] [facility] Comment on above: Performed By: #### C MP #### [facility] [address] [place] [address] Dr. Bob Nelson Hematocrit (Bld) [Volume fraction] 46.1 % Normal 42.0-54.[address] [facility] Comment on above: Performed By: #### C MP #### [facility] [address] [place] [address] Dr. Bbo Nelson Hemoglobin (Bld) [Mass/Vol] 16.0 g/dL Normal 14.0-18.[address] [facility] Comment on above: Performed By: #### C MP #### [facility] [address] [place] [address] Dr. Bob Nelson IG # 0.03 10e3/ul Normal 0.00-0.[address] [facility] Comment on above: Performed By: #### C MP #### [facility] [address] [place] [address] Dr. Bob Nelson IG % 0.3 % Normal 0.0-0.[address] [facility] Comment on above: Performed By: #### C MP #### [facility] [address] [place] [address] Dr. Bob Nelson LYMPH # 1.5 103/ul Normal 1.2-3.[address] [facility] Comment on above: Performed By: #### C MP #### [facility] [address] [place] [address] Dr. Bob Nelson Lymphocytes/100 WBC (Bld) 16.0 % Critically low 20.5-[address] [facility] Comment on above: Performed By: #### C MP #### [facility] [address] [place] [address] Dr. Bob Nelson MANUAL DIFF REQ NO Normal [facility] Comment on above: Performed By: #### C MP #### [facility] [address] [place] [address] Dr. Bob Nelson MCH (RBC) [Entitic mass] 28.6 pg Normal 25.9-34.[address] [facility] Comment on above: Performed By: #### C MP #### [facility] [address] [address] [address] Bob Nelson MCHC (RBC) [Mass/Vol] 34.7 g/dL Normal 29.9-35.[address] [facility] Comment on above: Performed By: #### C MP #### [facility] [address] [address] [address] Bob Nelson MCV (RBC) [Entitic vol] 82.5 fL Normal 80.0-94.0 [facility] Comment on above: Performed By: #### C MP #### [facility] [address] [address] [address] Bob Nelson MONO # 0.6 103/ul Normal 0.3-0.[address] [facility] Comment on above: Performed By: #### C MP #### [facility] [address] [address] [address] Bob Nelson Monocytes/100 WBC (Bld) 5.7 % Normal 1.7-12.0 [facility] Comment on above: Performed By: #### C MP #### [facility] [address] [address] [address] Bob Nelson NEUT # 7.4 103/ul Critically high 1.4-6.5 [facility] Comment on above: Performed By: #### C MP #### [facility] [address] [address] [address] Bob Nelson Neutrophils/100 WBC (Bld) 77.1 % Critically high 43.0- 75.[address] [facility] Comment on above: Performed By: #### C MP #### [facility] [address] [address] [address] Bob Nelson Platelet mean volume (Bld) [Entitic vol] 9.3 fL Critically low 9.5-13.[address] [facility] Comment on above: Performed By: #### C MP #### [facility] [address] [address] [address] Bob Nelson PLT 184 103/ul Normal 150-[address] [facility] Comment on above: Performed By: #### C MP #### [facility] [address] [address] [address] Bob Nelson RBC 5.59 106/ul Normal 4.70-6.[address] [facility] Comment on above: Performed By: #### C MP #### [facility] [address] [place] [address] Dr. Bob Nelson WBC 9.6 103/ul Normal 4.0-11.[address] [facility] Comment on above: Performed By: #### C MP #### [facility] [address] [place] [address] Dr. Bob Nelson PROF 14(COMP METB)on 022 Albumin [Mass/Vol] 4.3 g/dL Normal 3.4-5.[address] [facility] Comment on above: Performed By: #### C BC #### [facility] [address] [place] [address] Dr. Bob Nelson Albumin/Globulin [Mass ratio] 1.3 {ratio} Normal [facility] Comment on above: Performed By: #### C BC #### [facility] [address] [place] [address] Dr. Bob Nelson ALP [Catalytic activity/Vol] 86 U/L Normal 46-[address] [facility] Comment on above: Performed By: #### C BC #### [facility] [address] [place] [address] Dr. Bob Nelson ALT [Catalytic activity/Vol] 87 U/L Critically high 16-[address] [facility] Comment on above: Performed By: #### C BC #### [facility] [address] [place] [address] Dr. Bob Nelson Anion gap [Moles/Vol] 11.9 mmol/L Normal [facility] Comment on above: Performed By: #### C BC #### [facility] [address] [place] [address] Dr. Bob Nelson AST [Catalytic activity/Vol] 44 U/L Critically high 15-[address] [facility] Comment on above: Performed By: #### C BC #### [facility] [address] [place] [address] Dr. Bob Nelson Bilirubin [Mass/Vol] 0.3 mg/dL Normal 0.2-1.[address] [facility] Comment on above: Performed By: #### C BC #### [facility] [address] [address] [address] Bob Nelson Calcium [Mass/Vol] 9.3 mg/dL Normal 8.5-10.[address] [facility] Comment on above: Performed By: #### C BC #### [facility] [address] [place] [address] Dr. Bob Nelson Chloride [Moles/Vol] 102 mmol/L Normal 98-[address] [facility] Comment on above: Performed By: #### C BC #### [facility] [address] [place] [address] Dr. Bob Nelson CO2 [Moles/Vol] 27.8 mmol/L Normal 21.0-32.0 [facility] Comment on above: Performed By: #### C BC #### [facility] [address] [place] [address] Dr. Bob Nelson Creatinine [Mass/Vol] 1.16 mg/dL Normal 0.70-1.[address] [facility] Comment on above: Performed By: #### C BC #### [facility] [address] [place] [address] Dr. Bob Nelson EGFR-AF BURMESE >60 Normal >=60 [facility] Comment on above: Performed By: #### C BC #### [facility] [address] [place] [address] Dr. Bob Nelson EGFR-NON AF BURMESE >60 Normal >=[address] [facility] Comment on above: Performed By: #### C BC #### [facility] [address] [place] [address] Dr. Bob Nelson Globulin (S) [Mass/Vol] 3.3 g/dL Normal [facility] Comment on above: Performed By: #### C BC #### [facility] [address] [place] [address] Dr. Bob Nelson Glucose [Mass/Vol] 112 mg/dL Critically high 74-106 [facility] Comment on above: Performed By: #### C BC #### [facility] [address] [address] [address] Bob Nelson Potassium [Moles/Vol] 3.7 mmol/L Normal 3.5-5.[address] [facility] Comment on above: Performed By: #### C BC #### [facility] [address] [address] [address] Bob Nelson Protein [Mass/Vol] 7.6 g/dL Normal 6.4-8.[address] [facility] Comment on above: Performed By: #### C BC #### [facility] [address] [address] [address] Bob Nelson Sodium [Moles/Vol] 138 mmol/L Normal 136-[address] [facility] Comment on above: Performed By: #### C BC #### [facility] [address] [address] [address] Bob Nelson Urea nitrogen [Mass/Vol] 11.0 mg/dL Normal 7.0-18.[address] [facility] Comment on above: Performed By: #### C BC #### [facility] [address] [address] [address] Bob Nelson Urea nitrogen/Creatinine [Mass ratio] 9.5 mg/mg Normal [facility] Comment on above: Performed By: #### C BC #### [facility] [address] [address] [address] Bob Nelson Progress Noteson 02-02-2022 [employer] Operator Authentication Interface Message Text EMERGENCY TRIAGE, TREAT AND TRANSPORT (ET3) DOCUMENTATION OF TELEHEALTH VISIT Date / Time: 02/02/2022599 Name: Corey Alonso : 1995 SSN: [id number] EMS Agency: [facility] [x] Verbal consent obtained [] [...] Completed by: Maritza Romo MD Normal [facility] CBC AUTO DIFFon 12-30-2021 BASO # 0.0 103/ul Normal 0.0-0.[address] [facility] Comment on above: Performed By: #### C BC #### [facility] [address] [place] [address] Dr. Bob Nelson Basophils/100 WBC (Bld) 0.6 % Normal 0.2-2.0 [facility] Comment on above: Performed By: #### C BC #### [facility] [address] [place] [address] Dr. Bob Nelson EO # 0.0 103/ul Normal 0.0-0.[address] [facility] Comment on above: Performed By: #### C BC #### [facility] [address] [place] [address] Dr. Bob Nelson Eosinophils/100 WBC (Bld) 0.6 % Critically low 0.9-7. [address] [facility] Comment on above: Performed By: #### C BC #### [facility] [address] [place] [address] Dr. Bob Nelson Erythrocyte distribution width (RBC) [Ratio] 12.3 % Normal 11.0-15.[address] [facility] Comment on above: Performed By: #### C BC #### [facility] [address] [place] [address] Dr. Bob Nelson Hematocrit (Bld) [Volume fraction] 48.5 % Normal 42.0-54.[address] [facility] Comment on above: Performed By: #### C BC #### [facility] [address] [place] [address] Dr. Bob Nelson Hemoglobin (Bld) [Mass/Vol] 16.1 g/dL Normal 14.0-18.[address] [facility] Comment on above: Performed By: #### C BC #### [facility] [address] [place] [address] Dr. Bob Nelson IG # 0.03 10e3/ul Normal 0.00-0.[address] [facility] Comment on above: Performed By: #### C BC #### [facility] [address] [place] [address] Dr. Bob Nelson IG % 0.4 % Normal 0.0-0.[address] [facility] Comment on above: Performed By: #### C BC #### [facility] [address] [place] [address] Dr. Bob Nelson LYMPH # 2.2 103/ul Normal 1.2-3.[address] [facility] Comment on above: Performed By: #### C BC #### [facility] [address] [place] [address] Dr. Bob Nelson Lymphocytes/100 WBC (Bld) 30.6 % Normal 20.5-60.[address] [facility] Comment on above: Performed By: #### C BC #### [facility] [address] [place] [address] Dr. Bob Nelson MANUAL DIFF REQ NO Normal [facility] Comment on above: Performed By: #### C BC #### [facility] [address] [place] [address] Dr. Bob Nelson MCH (RBC) [Entitic mass] 28.1 pg Normal 25.9-34.[address] [facility] Comment on above: Performed By: #### C BC #### [facility] [address] [place] [address] Dr. Bob Nelson MCHC (RBC) [Mass/Vol] 33.2 g/dL Normal 29.9-35.[address] [facility] Comment on above: Performed By: #### C BC #### [facility] [address] [place] [address] Dr. Bob Nelson MCV (RBC) [Entitic vol] 84.6 fL Normal 80.0-94.0 [facility] Comment on above: Performed By: #### C BC #### [facility] [address] [place] [address] Dr. Bob Nelson MONO # 0.4 103/ul Normal 0.3-0.[address] [facility] Comment on above: Performed By: #### C BC #### [facility] [address] [place] [address] Dr. Bob Nelson Monocytes/100 WBC (Bld) 6.1 % Normal 1.7-12.0 [facility] Comment on above: Performed By: #### C BC #### [facility] [address] [place] [address] Dr. Bob Nelson NEUT # 4.4 103/ul Normal 1.4-6.[address] [facility] Comment on above: Performed By: #### C BC #### [facility] [address] [place] [address] Dr. Bob Nelson Neutrophils/100 WBC (Bld) 61.7 % Normal 43.0-75.[address] [facility] Comment on above: Performed By: #### C BC #### [facility] [address] [place] [address] Dr. Bob Nelson Platelet mean volume (Bld) [Entitic vol] 9.5 fL Normal 9.5-13.[address] [facility] Comment on above: Performed By: #### C BC #### [facility] [address] [place] [address] Dr. Bob Nelson PLT 228 103/ul Normal 150-[address] [facility] Comment on above: Performed By: #### C BC #### [facility] [address] [place] [address] Dr. Bob Nelson RBC 5.73 106/ul Normal 4.70-6.[address] [facility] Comment on above: Performed By: #### C BC #### [facility] [address] [place] [address] Dr. Bob Nelson WBC 7.2 103/ul Normal 4.0-11.[address] [facility] Comment on above: Performed By: #### C BC #### [facility] [address] [place] [address] CSPINE WO CONon [...] TRINITY KING Date: 2021-12-30 20:[address] [facility] CT HEAD WO CONon 12-30-2021 CT [...] recommended for further evaluation. Electronically authenticated by: ERNESOT GIRON Date: 2021-12-30 20:[address] [facility] PROF CHEM 8 (BAS METB)on Anion gap [Moles/Vol] 24.1 mmol/L Normal [facility] Comment on above: Performed By: #### B MP #### [facility] [address] [place] [address] Dr. Bob Nelson Calcium [Mass/Vol] 9.3 mg/dL Normal 8.5-10.[address] [facility] Comment on above: Performed By: #### B MP #### [facility] [address] [address] [address] Bob Nelson Chloride [Moles/Vol] 101 mmol/L Normal 98-[address] [facility] Comment on above: Performed By: #### B MP #### [facility] [address] [address] [address] Bob Nelson CO2 [Moles/Vol] 16.9 mmol/L Critically low 21.0-32.[address] [facility] Comment on above: Performed By: #### B MP #### [facility] [address] [address] [address] Bob Nelson Creatinine [Mass/Vol] 1.13 mg/dL Normal 0.70-1.[address] [facility] Comment on above: Performed By: #### B MP #### [facility] [address] [address] [address] Bob Nelson EGFR-AF BURMESE >60 Normal >=60 [facility] Comment on above: Performed By: #### B MP #### [facility] [address] [place] [address] Dr. Bob Nelson EGFR-NON AF BURMESE >60 Normal >=[address] [facility] Comment on above: Performed By: #### B MP #### [facility] [address] [address] [address] Bob Nelson Glucose [Mass/Vol] 107 mg/dL Critically high 74-106 [facility] Comment on above: Performed By: #### B MP #### [facility] [address] [address] [address] Bob Nelson Potassium [Moles/Vol] 4.0 mmol/L Normal 3.5-5.[address] [facility] Comment on above: Performed By: #### B MP #### [facility] [address] [place] [address] Dr. Bob Nelson Sodium [Moles/Vol] 138 mmol/L Normal 136-[address] [facility] Comment on above: Performed By: #### B MP #### [facility] [address] [address] [address] Bob Nelson Urea nitrogen [Mass/Vol] 14.0 mg/dL Normal 7.0-18.[address] [facility] Comment on above: Performed By: #### B MP #### [facility] [address] [address] [address] Bob Nelson Urea nitrogen/Creatinine [Mass ratio] 12.4 mg/mg Normal [facility] Comment on above: Performed By: #### B MP #### [facility] [address] [address] [address] Bob Nelson ELECTROENCEPHALOGRAMon 11-[address] [id number] ELECTROENCEPHALOGRAM REPORT PATIENT NAME: COREY ALONSO : 1995 MED REC NO: [id number] ROOM: ACCOUNT NO: [id number] ADMIT DATE: 11/28/2021 PROVIDER: Brian Granado DATE [...] focal slowing or epileptiform activity. BRIAN GRANADO FLORECITA/[id number] Doc#: [id number] CC: Emeli Chi Cnp Normal [facility] MRI BRAIN WO CONTRASTon MRI BRAIN WO CONTRAST EXAMINATION: MRI OF THE BRAIN WITHOUT CONTRAST 11/28/2021 9:44 am TECHNIQUE: Multiplanar multisequence MRI of the brain was performed without the administration of intravenous contrast. COMPARISON: None HISTORY: ORDERING SYSTEM PROVIDED HISTORY: Partial symptomatic epilepsy with complex partial seizures, intractable, without status epilepticus (HCC) TECHNOLOGIST PROVIDED HISTORY: epilepsy What is the [...] Anjali Lozoya MD 11/28/21 Final result Normal [facility] ANES POSTPROC EVALon 022 ANES POSTPROC EVAL HNO ID: [id number] Author: Tung Macias MD Service: Anesthesiology Author Type: Anesthesiologist Type: Anesthesia Postprocedure Evaluation Filed: 09/01/2021 6:31 AM Note Text: POST ANESTHESIA EVALUATION NOTE : 1995 Procedure Summary Date: 08/31/21 Room / Location: [address] / [facility] Anesthesia Start: 1303 Anesthesia Stop: [...] September 01, 2021 TIME: 6:31 AM CSN: [id number] [facility] ANES PRE-OPon 08-31-2021 ANES PRE-OP HNO ID: [id number] Author: Tung Macias MD Service: Anesthesiology Author Type: Anesthesiologist Type: Anesthesia Preprocedure Evaluation Filed: 08/31/2021 12:08 PM Note Text: ANESTHESIOLOGY DAY OF SURGERY NOTE : 1995 Procedure Information Date/Time: 08/31/21 1215 Procedure: CYSTOURETHROSCOPY W/ INCISION OF EJACULATORY DUCTS (Right Urethra) Location: [place] [address] CR / [facility] Surgeons: Domi Scruggs MD Estimated body mass [...] August 31, 2021 TIME: 12:08 PM CSN: [id number] [facility] OPERATIVE NOon 08-31-2021 OPERATIVE NO HNO ID: [id number] Author: Domi Scruggs MD Service: Urology Author Type: Physician Type: Operative Report Filed: 08/31/2021 3:22 PM Note Text: [facility] UROLOGY OPERATIVE REPORT Patient Name: Corey Alonso III Patient Log ID: [id number] Surgery Date: 08/31/2021 Incision/Procedure Start Time: 1:17 PM Incision Close/Procedure End Time: 1:47 PM Surgeon(s) and Lithographic Press Operator Apprentice(s): Surgeon(s) and Role: * Domi Scruggs MD [...] made to terminate the procedure. An 18Fr alturas tip catheter was inserted over a solo wire and used to drain the bladder. 10cc was added to the balloon. The patient tolerated the procedure well and was taken to the recovery area in stable condition. Estimated Blood Loss 5mL Specimens * No specimens in log * Implantable Devices None Drains 1. 18Fr alturas tip Leal (10cc in balloon) Complications None Accidental perforations or lacerations None The primary surgeon performed the procedure with assistance from the resident Dictated by Won Huerta MD, PhD on behalf of Domi Scruggs MD [facility] CARDIAC SHARON ADMITon 017 CKMB 1.27 ng/mL Normal <=2.[address] [facility] Comment on above: Performed By: #### B MP, LIPA, LIVER, CMADM ####[facility] [address] [place] Creatine kinase (CK) 79 U/L Normal 55-[address] [facility] Comment on above: Performed By: #### B MP, LIPA, LIVER, CMADM ####[facility] [address] [id number] INR Coag RelTime (Bld) SEE BELOW Normal [facility] Comment on above: Result Comment: <0.0 34 ng/ml NEGATIVE 0.034-0.119 INDETERMINATE 0.120 AMI CUT OFF Performed By: #### B MP, LIPA, LIVER, CMADM ####[facility] [address] [place], [place] [address]Z[address] [place] JOSH 36.0 ng/mL Normal <=121.[address] [facility] Comment on above: Performed By: #### B MP, LIPA, LIVER, CMADM ####[facility] [address] [place], [place] [address]W[address] [place] TROP <0.012 Normal <=0.[address] [facility] Comment on above: Performed By: #### B MP, LIPA, LIVER, CMADM ####[facility] [address] [place], [place] [id number] CBC AUTO DIFFon 05-03-2017 Basophils Auto #/vol (Bld) 0.0 103/ul Normal 0.0-0.[address] [facility] Comment on above: Performed By: #### C BC ####[facility] [address] [place], [place] [id number] Basophils/100 WBC Auto (Bld) 0.7 % Normal 0.2-2.[address] [facility] Comment on above: Performed By: #### C BC ####[facility] [address] [place], [place] [id number] Eosinophils 0.1 103/ul Normal 0.0-0.[address] [facility] Comment on above: Performed By: #### C BC ####[facility] [address] [place], [place] [address] Eosinophils/100 leukocytes 1.1 % Normal 0.9-7.[address] [facility] Comment on above: Performed By: #### C BC ####[facility] [address] [place], [place] [address] Erythrocyte distribution width Auto Ratio (RBC) 12.8 % Normal 11.0-15.0 [facility] Comment on above: Performed By: #### C BC ####[facility] [address] [place] Erythrocytes (RBC) 4.96 106/ul Normal 4.70-6.10 [facility] Comment on above: Performed By: #### C BC ####[facility] [address] [id number] Hematocrit (HCT) 40.6 % Critically low 42.0-54.[address] [facility] Comment on above: Performed By: #### C BC ####[facility] [address] [place] [address] [place] Hemoglobin mass conc (Bld) 14.1 g/dL Normal 14.0-18.[address] [facility] Comment on above: Performed By: #### C BC ####[facility] [address] [place] [address] [place] IG # 0.03 10e3/ul Normal 0.00-0.[address] [facility] Comment on above: Performed By: #### C BC ####[facility] [address] [place] [address] [place] IG % 0.5 % Normal 0.0-0.[address] [facility] Comment on above: Performed By: #### C BC ####[facility] [address] [place] [address] [place] Lymphocytes 1.7 103/ul Normal 1.2-3.[address] [facility] Comment on above: Performed By: #### C BC ####[facility] [address] [place] [address] [place] Lymphocytes/100 leukocytes 30.6 % Normal 20.5-60.[address] [facility] Comment on above: Performed By: #### C BC ####[facility] [address] [place] MANUAL DIFF REQ NO Normal [facility] Comment on above: Performed By: #### C BC ####[facility] [address] [place] [address] [place] MCH 28.4 pg Normal 25.9-34.[address] [facility] Comment on above: Performed By: #### C BC ####[facility] [address] [id number] Musa MCHC mass conc (RBC) 34.7 g/dL Normal 29.9-35.[address] [facility] Comment on above: Performed By: #### C BC ####[facility] [address] [place] [id number] Musa MCV 81.9 fL Normal 80.0-94.[address] [facility] Comment on above: Performed By: #### C BC ####[facility] [address] [place], [place] [address]Christian Musa Monocytes 0.3 103/ul Normal 0.3-0.[address] [facility] Comment on above: Performed By: #### C BC ####[facility] [address] [place] [address] [place] Monocytes/100 leukocytes 5.7 % Normal 1.7-12.[address] [facility] Comment on above: Performed By: #### C BC ####[facility] [address] [place], [place] [address] Neutrophils 3.5 103/ul Normal 1.4-6.[address] [facility] Comment on above: Performed By: #### C BC ####[facility] [address] [place], [place] [address]Christian Musa Neutrophils/100 WBC Auto (Bld) 61.4 % Normal 43.0-75.[address] [facility] Comment on above: Performed By: #### C BC ####[facility] [address] [place], [place] [id number] Musa Platelet mean volume (PMV) 9.3 fL Critically low 9.5-13.[address] [facility] Comment on above: Performed By: #### C BC ####[facility] [address] [place], [place] [address]Christian Musa Platelets 221 103/ul Normal 150-[address] [facility] Comment on above: Performed By: #### C BC ####[facility] Gnmpohdpst1738 [address] [place] WBC (Leukocytes) 5.7 103/ul Normal 4.0-11.0 [facility] Comment on above: Performed By: #### C BC ####[facility] Lqhycenxgd3455 [address] [place] LIPASEon 05-03-2017 Lipase 55.0 U/L Normal 23.0-300.[address] [facility] Comment on above: Performed By: #### B MP, LIPA, LIVER, CMADM ####[facility] Japacuywti8296 [address] [place] LIVER PROFILEon 05-03-2017 Alanine aminotransferase (ALT) 35 U/L Normal 21-[address] [facility] Comment on above: Performed By: #### B MP, LIPA, LIVER, CMADM ####[facility] [address] [place] [address] [place] Albumin 4.4 g/dL Normal 3.5-5.[address] [facility] Comment on above: Performed By: #### B MP, LIPA, LIVER, CMADM ####[facility] [address] [place] [address] Albumin/Globulin Ratio 1.4 {ratio} Normal T [facility] Comment on above: Performed By: #### B MP, LIPA, LIVER, CMADM ####[facility] Vdzjksjnix1989 [address] Alkaline phosphatase (ALP) 74 U/L Normal 38-[address] [facility] Comment on above: Performed By: #### B MP, LIPA, LIVER, CMADM ####[facility] Jjhhyudgtr3054 [address] [place] Aspartate aminotransferase (AST) 21 U/L Normal 17-59 [facility] Comment on above: Performed By: #### B MP, LIPA, LIVER, CMADM ####[facility] Nvbpqrwvon7197 [address] [place] BILI, CONJUGATED 0.0 mg/dL Normal 0.0-0.3 [facility] Comment on above: Performed By: #### B MP, LIPA, LIVER, CMADM ####[facility] Mvhprdbwpl9614 [address] [place] Bilirubin Ql (U) 0.8 mg/dL Normal 0.2-1.3 [facility] Comment on above: Performed By: #### B MP, LIPA, LIVER, CMADM ####[facility] Zisxjpomrk7764 [address] [place] Globulin 3.1 g/dL Normal [facility] Comment on above: Performed By: #### B MP, LIPA, LIVER, CMADM ####[facility] Rdywmekjxw2782 [address] [place] Protein 7.5 g/dL Normal 6.1-8.[address] [facility] Comment on above: Performed By: #### B MP, LIPA, LIVER, CMADM ####[facility] Irgpksdkgx9903 [address] [place] PROF CHEM 8 (BAS METB)on Anion gap 12.7 mmol/L Normal [facility] Comment on above: Performed By: #### B MP, LIPA, LIVER, CMADM ####[facility] Gcwopligas038[address] [place] BUN/Creatinine Ratio 14.4 mg/mg Normal [facility] Comment on above: Performed By: #### B MP, LIPA, LIVER, CMADM ####[facility] Kdccmzsomk7245 [address] [place] Calcium 9.6 mg/dL Normal 8.4-10.[address] [facility] Comment on above: Performed By: #### B MP, LIPA, LIVER, CMADM ####[facility] Xumhvorojb7316 [address] [place] Chloride 103 mmol/L Normal 98-[address] [facility] Comment on above: Performed By: #### B MP, LIPA, LIVER, CMADM ####[facility] [address] [place], [place] [address]Kyxujz [place] CO2 30.0 mmol/L Normal 22.0-30.[address] [facility] Comment on above: Performed By: #### B MP, LIPA, LIVER, CMADM ####[facility] [address]bke[address] [place], [place] [address]Lkijqw [place] Creatinine 0.87 mg/dL Normal 0.66-1.[address] [facility] Comment on above: Performed By: #### B MP, LIPA, LIVER, CMADM ####[facility] Ndhzi[address]uz9143 [place], [place] [address]Jsmfyv [place] eGFR (non-black) Normal 60-N/A [facility] Comment on above: Performed By: #### B MP, LIPA, LIVER, CMADM ####[facility] [address]rec[address]j4[address] [place], [place] [address]Fdiwew [place] Glucose mass conc 100 mg/dL Normal 74-106 [facility] Comment on above: Performed By: #### B MP, LIPA, LIVER, CMADM ####[facility] Xoganzgyob1028 [place], [place] [address]Rhqnmx [place] Potassium molar conc 4.0 mmol/L Normal 3.4-5.[address] [facility] Comment on above: Performed By: #### B MP, LIPA, LIVER, CMADM ####[facility] Sfbeelkjfm0221 [place], [place] [address]Ugmbct [place] Sodium 142 mmol/L Normal 137-[address] [facility] Comment on above: Performed By: #### B MP, LIPA, LIVER, CMADM ####[facility] Onvdzdigjc1629 [place], [place] [address]Ruaclt [place] Urea nitrogen 13.0 mg/dL Normal 9.0-20.0 [facility] Comment on above: Performed By: #### B MP, LIPA, LIVER, CMADM ####[facility] [address]vinymgh6245 [place], [place] [address]Bqoltq [place] Vital Signs Date Time Vital Sign Value Performing Clinician Facility 01-29-2024 15:18-0400 Body height 175.3 cm Deep Punia MD Work Phone: [facility] 01-29-2024 15:18-0400 Body mass index (BMI) [Ratio] 25.55 kg/m2 Deep Babb MD Work Phone: [facility] 01-29-2024 15:18-0400 Body weight 78.47 kg Deep Babb MD Work Phone: [facility] 01-29-2024 15:18-0400 Diastolic blood pressure 82 mm[Hg] Deep Babb MD Work Phone: [facility] 01-29-2024 15:18-0400 Heart rate 81 /min Deep aBbb MD Work Phone: [facility] 01-29-2024 15:18-0400 SaO2% (BldA) [Mass fraction] 98 % Deep Babb MD Work Phone: [facility] 01-29-2024 15:18-0400 Systolic blood pressure 133 mm[Hg] Deep Babb MD Work Phone: [facility] 12-30-2023 08:06-0400 Body height 172.7 cm Deep Babb MD Work Phone: [facility] 12-30-2023 08:06-0400 Body mass index (BMI) [Ratio] 25.85 kg/m2 Deep Babb MD Work Phone: [facility] 12-30-2023 08:06-0400 Body weight 77.11 kg Deep Babb MD Work Phone: [facility] 12-30-2023 08:06-0400 Diastolic blood pressure 86 mm[Hg] Deep Babb MD Work Phone: [facility] 12-30-2023 08:06-0400 Heart rate 105 /min Deep Babb MD Work Phone: [facility] 12-30-2023 08:06-0400 SaO2% (BldA) [Mass fraction] 97 % Deep Babb MD Work Phone: [facility] 12-30-2023 08:06-0400 Systolic blood pressure 148 mm[Hg] Deep Babb MD Work Phone: [facility] 03-31-2023 16:45-0400 Body temperature 98.06 [degF] Ramón Carrizales [facility] 03-31-2023 16:45-0400 Diastolic blood pressure 86 mm[Hg] Ramón Carrizales [facility] 03-31-2023 16:45-0400 Heart rate 80 /min Ramón Carrizales [facility] 03-31-2023 16:45-0400 Respiratory rate 16 /min Ramón Carrizales [facility] 03-31-2023 16:45-0400 SaO2% (BldA) [Mass fraction] 98 % Ramón Carrizales [facility] 03-31-2023 16:45-0400 Systolic blood pressure 136 mm[Hg] Ramón Carrizales [facility] 09-30-2022 21:22-0500 Diastolic blood pressure 83 mm[Hg] Junior Idalmis [facility] 09-30-2022 21:22-0500 Heart rate 90 /min Junior Idalmis [facility] 09-30-2022 21:22-0500 Mean blood pressure 97 mm[Hg] Junior Idalmis [facility] 09-30-2022 21:22-0500 Respiratory rate 19 /min Junior Idalmis [facility] 09-30-2022 21:22-0500 SaO2% (BldA) [Mass fraction] 100 % Junior Idalmis [facility] 09-30-2022 21:22-0500 Systolic blood pressure 124 mm[Hg] Junior Idalmis [facility] 09-30-2022 20:01-0500 Body temperature 98.24 [degF] Junior Idalmis [facility] 09-30-2022 20:01-0500 Diastolic blood pressure 100 mm[Hg] Junior Idalmis [facility] 09-30-2022 20:01-0500 Heart rate 100 /min Junior Idalmis [facility] 09-30-2022 20:01-0500 Respiratory rate 18 /min Junior Idalmis [facility] 09-30-2022 20:01-0500 SaO2% (BldA) [Mass fraction] 99 % Junior Idalmis [facility] 09-30-2022 20:01-0500 Systolic blood pressure 133 mm[Hg] Junior Idalmis [facility] 08-11-2022 08:34-0500 Body temperature 97.59 [degF] Chavez Chirri DO Work Phone: [facility] [employer] [facility] [employer] 08-11-2022 08:34-0500 Diastolic blood pressure 86 mm[Hg] Chavez Chirri DO Work Phone: [facility] [employer] 08-11-2022 08:34-0500 Heart rate 70 /min Chavez Chirri DO Work Phone: [facility] [employer] 08-11-2022 08:34-0500 Respiratory rate 16 /min Chavez Chirri DO Work Phone: [facility] [employer] 08-11-2022 08:34-0500 SaO2% (BldA) [Mass fraction] 97 % Chavez Chirri DO Work Phone: [facility] [employer] 08-11-2022 08:34-0500 Systolic blood pressure 137 mm[Hg] Chavez [facility]ri DO [facility] Phone: [facility] 08-07-2022 15:24-0500 Body height 172.7 cm Chavez Chirri DO Work Phone: [facility] [employer] 08-07-2022 15:24-0500 Body mass index (BMI) [Ratio] 26.95 kg/m2 Chavez Chirri DO Work Phone: [facility] [employer] 08-07-2022 15:24-0500 Body weight 80.4 kg Chavez [facility]irri DO [facility]: [facility] 02-02-2022 06:32-0400 Body temperature 98.01 [degF] [facility] 02-02-2022 06:32-0400 Diastolic blood pressure 82 mm[Hg] Et3 [facility] [employer] 02-02-2022 06:32-0400 Heart rate 96 /min Et3 [facility] [employer] 02-02-2022 06:32-0400 Respiratory rate 18 /min Et3 [facility] [employer] 02-02-2022 06:32-0400 SaO2% (BldA) [Mass fraction] 98 % Et3 [facility] [employer] 02-02-2022 06:32-0400 Systolic blood pressure 128 mm[Hg] [facility] Encounters Encounter Date Encounter Type Care Provider Facility Start: 08-07-2024 End: 08-10-2024 [facility] Anaceline Garcia PhD Work Phone: Neurology Comment on above: 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) Start: 07-31-2024 End[facility] Comment on above: 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) Start: 07-27-2024 End: 07-28-2024 Refill Brendon Hale PA-C Work Phone: Neurology Comment on above: Refill Request Start: 06-30-2024 End: 06-30-2024 [facility] Ana Garcia PhD Work Phone: Neurology Comment on above: 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) Start: 06-02-2024 End: 06-02-2024 Telephone encounter Minerva MILLARD Neurology Comment on above: Social Work Services Start: 05-05-2024 End: 05-05-2024 ambulatory Doug Workman Josué LUU.TRAFFIC INVESTIGATOR Work Phone: Neurology Comment on above: Psychogenic nonepile ptic seizure (Primary Dx); Seizure-like activity (HCC) Start: 05-05-2024 End: 05-05-2024 Telemedicine consultation with patient Doug Boosonia LUU.TRAFFIC INVESTIGATOR Work Phone: Neurology Start: 04-30-2024 End: 05-07-2024 ambulatory Ana Garcia PhD Work Phone: Neurology Comment on above: Book Start: 04-28-2024 End: 04-28-2024 ambulatory Ana Garcia PhD Work Phone: Neurology Comment on above: Psychogenic nonepile ptic seizure Start: 04-28-2024 End: 04-28-2024 Telemedicine consultation with patient Ana Garcia PhD Work Phone: Neurology Start: 02-17-2024 End: 02-17-2024 Subsequent hospital visit by physician Mri Jasmeet (I-Stat/3t) Work Phone: Radiology Comment on above: No Show Start: 02-17-2024 End: 02-17-2024 ambulatory EMELI CHI Facility:[facility] Start: 02-17-2024 End: 02-17-2024 Subsequent hospital [...] (Primary Dx) Start: 01-29-2024 End: 01-29-2024 ambulatory DEEP BABB Facility:[facility] Start: 01-02-2024 Orders Only Shandra Yost Work Phone: Neurology Comment on above: Psychogenic nonepile ptic seizure (Primary Dx) Seizure (HCC) (Prima ry Dx) Start: 12-30-2023 End: 01-03-2024 ambulatory SHANDRA BERMAN Facility:[facility] Start: 12-30-2023 End: 12-30-2023 Patient encounter procedure Leah Carrillo MD Work Phone: Neurology Comment on above: Seizure (HCC) (Prima ry Dx); Anxiety; Recurrent major depressive disorder, in partial remission (HCC) Start: 12-30-2023 End: 12-30-2023 ambulatory LEAH CARRILLO Facility:[facility] Start: 11-12-2023 Patient encounter procedure Kelly Sandoval MD Work Phone: Neurology Comment on above: Seizure (HCC) (Prima ry Dx) Start: 11-12-2023 Telephone encounter Kelly Sandoval MD Work Phone: Neurology Comment on above: Future Appointment ( [place], [place] ) Start: 03-31-2023 End: 03-31-2023 Emergency department patient visit Ramón Carrizales Facility:[facility] Start: 03-31-2023 End: 03-31-2023 Emergency department patient visit Ramón Carrizales [facility] Start: 09-30-2022 End: 09-30-2022 Emergency department patient visit Junior Raygoza Facility:[facility] Start: 09-30-2022 End: 09-30-2022 Emergency department patient visit Junior Raygoza [facility] Start: 09-23-2022 End: 09-23-[address] ORAL Trujillo Facility:[facility] Start: 09-13-2022 End: 09-13-2022 ambulatory CECILIA AMAYA . Facility:[facility] Start: 08-07-2022 End: 08-11-2022 Evaluation and management of inpatient CHAVEZ CHIRRI [facility] Start: 08-07-2022 End: 08-11-2022 Evaluation and management of inpatient Chavez Lee DO Work Phone: [facility] Renal//Med Surg Start: 06-15-2022 End: 06-16-[address] DOCTOR RAY Facility:[facility] Start: 06-11-2022 End: 06-11-2022 ambulatory EMELI CHI Facility:[facility] Start: 06-11-2022 End: 06-11-2022 ambulatory JOSIAH MAY Facility:[facility] Start: 06-10-2022 End: 06-10-2022 ambulatory JOSIAH MAY Facility:[facility] Start: 05-17-2022 End: 05-18-[address] DOCTOR RAY Facility:[facility] Start: 04-24-2022 End: 04-24-2022 ambulatory BRIAN Trujillo Facility:[facility] Start: 04-12-2022 End: 04-12-2022 ambulatory Emeli Chi Facility:[facility] Start: 04-12-2022 End: 04-12-2022 Patient encounter procedure TECHNICAL TRAINING COORDINATOR-C Emeli Chi Work Phone: [facility] [place] Start: 04-06-2022 End: 04-07-[address] DOCTOR RAY Facility:[facility] Start: 02-27-2022 End: 02-28-[address] LE OLVERA . Facility:[facility] Start: 02-27-2022 End: 02-27-2022 ambulatory JOSIAH MAY Facility:[facility] Start: 02-02-2022 End: 02-09-2022 ambulatory UNKNOWN PROVIDER [facility] Start: 02-02-2022 End: 02-02-2022 ambulatory Et3 [facility] Emergenc y Triage, Treat and Transport Start: 02-02-2022 End: 02-02-2022 Emergency department patient visit [facility] Emergency Triage, Treat and Transport Comment on above: Arrived Start: 12-30-2021 End: 12-31-2021 ambulatory JOSIAH MAY Facility: Start: 11-28-2021 End: 12-01-2021 ambulatory [facility] Start: 11-23-2021 Telephone encounter Won berger MD Work Phone: Urology Comment on above: Results Procedures Date Procedure Procedure Detail Performing Clinician Start: 08-07-2022 EEG VIDEO MONITORING Ka celine Waller INVESTIGATOR UTILITY BILL COMPLAINTS - TRAFFIC INVESTIGATOR Work Phone: Start: 08-07-2022 BASIC METABOLIC PANE L W/ REFLEX TO MG FOR LOW K Alexia Waller INVESTIGATOR UTILITY BILL COMPLAINTS - TRAFFIC INVESTIGATOR Work Phone: Start: 08-07-2022 Blood count complete auto&auto difrntl wbc Alexia Waller INVESTIGATOR UTILITY BILL COMPLAINTS - TRAFFIC INVESTIGATOR Work Phone: Cystoscopy Junior Raygoza Procedure on knee Junior scott Plan of Treatment Date Care Activity Detail Author Start: 2046 Shingles (RZV) Vacci ne (1 of 2) Shingles (RZV) Vaccine (1 of 2) [facility] Start: 09-30-2024 End: 09-30-2024 ambulatory 09/30/2024 2:00 PM [facility] Neurology [address] [place] [address] Ana Garcia, PhD [address] [place] [address] pnes Neurology Comment on above: pnes Start: 09-11-2024 End: 09-11-2024 ambulatory 09/11/2024 11:00 AM [facility] Neurology [address] [place] [address] Ana Garcia, PhD [address] [place] [address] [facility] Neurology Comment on above: pnes Start: 09-04-2024 End: 09-04-2024 ambulatory 09/04/2024 11:00 AM EST [facility] [address] [place] [address] Ana Garcia, PhD [address] [place] [address] [facility] Neurology Comment on above: pnes Start: 08-28-2024 End: 08-28-2024 ambulatory 08/28/2024 2:00 PM EST [facility] [address] [facility] [place] [address] Ana Garcia, PhD [address] [facility] [place] [place] [address] [facility]nes Neurology Comment on above: pnes Start: 08-21-2024 End: 08-21-2024 ambulatory 08/21/2024 2:00 PM EST [facility] [address] [place] [address] Ana Garcia, PhD [address] [place] [address] [facility]nes Neurology Comment on above: pnes Start: 08-14-2024 End: 08-14-2024 ambulatory 08/14/2024 2:00 PM EST [facility] [address] [facility] [place] [address] Ana Garcia, PhD [address] [place] [address] pnes Neurology Comment on above: pnes Start: 08-07-2024 End: 08-07-2024 ambulatory 08/07/2024 2:00 PM EST [facility] [address] [facility] [place] [address] Ana Garcia, PhD [address] [facility] [address] pnes Neurology Comment on above: pnes Start: 07-31-2024 End: 07-31-2024 ambulatory 07/31/2024 2:00 PM EST [facility] [address] [facility] [place] [place] [address] Ana Garcia, PhD [address] [place] [address] pnes Neurology Comment on above: pnes Start: 07-07-2024 End: 07-07-2024 ambulatory 07/07/2024 1:00 PM EST [facility] [address] [facility] [place] [address] Ana Garcia, PhD [address] [place] [address] pnes Neurology Comment on above: pnes Start: 06-30-2024 End: 06-30-2024 ambulatory 06/30/2024 1:00 PM EST [facility] [address] [facility] [place] [address] Ana Garcia, PhD [address] [place] [address] pnes Neurology Comment on above: pnes Start: 05-05-2024 End: 05-05-2024 Follow-up encounter 05/05/2024 1:30 PM EDT [facility] [address] [place] [address] Doug Ellsworth, INVESTIGATOR UTILITY BILL COMPLAINTS.TRAFFIC INVESTIGATOR [address] [place] [address] Follow Up Neurology Comment on above: Follow Up Start: 04-09-2024 End: 04-09-2024 ambulatory 04/09/2024 9:00 AM EDT [facility] Neurology [address] [place] [address] Neida Kee, PhD [address] [place] [address] Psychogenic nonepileptic seizure Neurology Comment on above: Psychogenic nonepile ptic seizure Start: 03-29-2024 Covid-19 Vaccine ( season) Covid-19 Vaccine () [facility] Start: 03-29-2024 Influenza vaccination C [facility] Start: 03-05-2024 End: 03-05-2024 Follow-up encounter 03/05/2024 10:00 AM EDT [facility] Neurology [address] [place] [address] Doug Ellsworth, INVESTIGATOR UTILITY BILL COMPLAINTS.TRAFFIC INVESTIGATOR [address] [place] [address] Follow Up Neurology Comment on above: Follow Up Start: 02-17-2024 End: 02-17-2024 Patient encounter procedure 02/17/2024 4:40 PM EDT Appointment Radiology [address] [place] [id number] Seizure Radiology Comment on above: Seizure Start: 02-17-2024 Subsequent hospital visit by physician 02/17/2024 4:40 PM EDT Hospital Encounter Radiology [address] [place] [id number] Seizure (HCC) [R56.9] Radiology Comment on above: Seizure (HCC) [R56.9 ] Start: 01-29-2024 End: 01-29-2024 Patient encounter procedure 01/29/2024 3:30 PM EDT Office Visit Neurology [address] [place] [address] Deep Babb MD [address] [facility] [address] [place] [address] Follow Up Neurology Comment on above: Follow Up Start: 09-10-2023 Covid-19 Vaccine ( season) Covid-19 Vaccine ( season) [facility] Start: 07-29-2023 Behavioral Health Screening Behavioral Health Screening [facility] Start: 03-29-2023 Covid-19 Vaccine ( season) Covid-19 Vaccine ( season) [facility] Start: 11-16-2022 Depression Screen [facility] Screen [facility] Start: 10-15-2022 End: 10-15-2022 Patient encounter procedure 10/15/2022 Office Visit Neurology Hans Granado MD [address] [place] [address] [facility] Start: 03-29-2022 Influenza vaccination INFLUENZ A (Season Ended) [facility] Start: 02-26-2022 [facility] Start: 11-04-2019 DTaP/Tdap/Td vaccine (7 - Tdap) DTaP/Tdap/Td vaccine (7 - Tdap) [facility] Start: 11-04-2019 Urine microalbumin profile DTaP,Tdap,Td Vaccine (7 - Tdap) [facility] Start: 2015 Urine microalbumin profile DTAP,TDAP,TD (1 - Tdap) [facility] Start: 2014 Anxiety Screening Anxiety Screening [facility] Start: 2014 Depression Screening Depression Scre ening [facility] Start: 2014 HEPATITIS C SCREENING HEPATITIS C SC SHERLY [facility] Start: 2014 [facility] Start: 2014 HIV SCREENING HIV SCREENING [facility] Start: 2014 HIV screening HIV Screening [facility] Start: 2014 Tetanus + diphtheria + acellular pertussis vaccine (product) [facility] Start: 2011 [facility] Start: 2010 PEDS TO ADULT TRANSI TION ANNUAL ASSESSMENT PEDS TO ADULT TRANSITION ANNUAL ASSESSMENT [facility] Start: 2008 Adult depression screening assessment DEPRESSION SCREENING [facility] Start: 2008 PEDS TO ADULT TRANSI TION INITIAL DISCUSSION PEDS TO ADULT TRANSITION INITIAL DISCUSSION [facility] Start: 2007 HPV VACCINE (1 - Mal e 2-dose series) HPV VACCINE (1 - Male 2-dose series) [facility] Start: 2007 Vaccination for damir n papillomavirus Human Papilloma (HPV) Vaccine (1 - Male 2-dose series) [facility] Start: 2001 COVID-19 VACCINE (1) COVID-19 VACCIN E (1) [facility] Start: 2000 Varicella vaccine (2 of 2 - 2-dose childhood series) Varicella vaccine (2 of 2 - 2-dose childhood series) [facility] Start: 02-05-1997 COVID-19 Vaccine (#1) COVID-19 Vacci ne (#1) [facility] Start: 02-05-1997 Hepatitis B Vaccine (3 of 3 - 3-dose series) Hepatitis B Vaccine (3 of 3 - 3-dose series) [facility] End: 11-12-2024 EPIL EEG LEAD PLACEMENT EPIL EEG LEAD PLACEMENT NEUROLOGY Routine Seizure (HCC) 1 Occurrences starting 11/13/2023 until 11/12/2024 [facility] Work Phone: Comment on above: 1 Occurrences starti ng 11/13/2023 until 11/12/2024 EPIL VEEG ADMIT TO EMU/PMU EPIL VEEG ADMIT TO EMU/PMU NEUROLOGY Routine Seizure (HCC) Ordered: 11/13/2023 [facility] Work Phone: Comment on above: Ordered: 11/13/2023 End: 01-31-2025 MR Brain WO contrast MRI BRAIN WO IVCON Radiology Routine Seizure (HCC) 1 Occurrences starting 01/02/2024 until 01/31/2025 [facility] Work Phone: Comment on above: 1 Occurrences starti ng 01/02/2024 until 01/31/2025 MR Brain WO contrast MRI BRAIN W O IVCON Radiology Routine Seizure (HCC) 02/17/2024 8:39 PM EDT [facility] Work Phone: Oxygen therapy [Mini mum Data Set] Initiate Oxygen Therapy Protocol Respiratory Care Routine Daily until discontinued starting 08/07/2022 [facility]IG[facility] DOUGHERTY [employer] Phone: Comment on above: Daily until disconti nued starting 08/07/2022 [place] yost Payers Date Payer Category Payer Medicaid [place] [employer] [place] [employer] [id number] 2022-Present [phone] [address] [facility] [place] [address] Medicaid [id number] 2022 Self-pay 2021 Unknown [facility]AN [place] MED[place] [id number] 2021-Present [id number] 2018 Medicaid [place] [id number] 2018-Present [phone] [facility] [place] [address] Medicaid [id number] 1996 Unknown [id number] [id number]3 1996 Unknown [id number] 2.16.840.1.608859.3.579.2.173 1996 Unknown [id number] 2.16.840.1.953368.3.579.2.732 1996 Unknown [id number] 2.16.840.1.101114.3.579.2.593 1996 Unknown [id number] 2.16.840.1.806261.3.579.2.593 1996 Unknown [id number] 2.16.840.1.625397.3.579.2.593 1996 Unknown [id number] 2.16.840.1.493389.3.579.2.593 1996 Unknown [id number] 2.16.840.1.391455.3.579.2.593 1996 Unknown [id number] 2.16.840.1.929256.3.579.2.593 1996 Unknown [id number] 2.16.840.1.582125.3.579.2.593 1996 Unknown [id number] 2.16.840.1.400508.3.579.2.593 1996 Unknown [id number] 2.16.840.1.586566.3.579.2.593 1996 Unknown [id number] 2.16.840.1.979180.3.579.2.593 1996 Unknown [id number] 2.16.840.1.920878.3.579.2.593 1996 Unknown [id number] 2.16.840.1.856512.3.579.2.593 1996 Unknown [id number] 2.16.840.1.304884.3.579.2.593 1996 Unknown [id number] 2.16.840.1.251034.3.579.2.727 1996 Unknown [id number] 2.16.840.1.392305.3.579.2.727 1996 Unknown [id number] 2.16.840.1.988687.3.579.2.175 1959 Unknown [id number] Unknown [id number] 2.16.840.1.612907.3.579.2.531 Social History Date Type Detail Facility Start: 01-20-2021 End: 12-30-2023 Tobacco smoking status NHIS Never smoked tobacco [facility] Start: 01-20-2021 End: 12-30-2023 Tobacco use and exposure Smokeless tobacco non-user [facility] Start: 08-03-2021 End: 01-29-2024 Alcohol intake Ex-drinker (finding) [facility] Start: 1995 Sex Assigned At Not on file C [facility] Start: 11-05-2021 End: 08-07-2022 Exposure to SARS-CoV-2 (event) Not sure [facility] Tobacco smoking status NHIS Tobacco smoking consumption unknown [facility] Start: 1995 Sex Assigned At Male F [facility] Start: 08-07-2022 Alcohol intake Lifetime non-d starr (finding) [employer] Phone: Tobacco smoking status Never [facility] Start: 08-03-2021 End: 12-30-2023 Sex Assigned At Male [facility] Start: 08-03-2021 End: 12-30-2023 History of Social function [facility] Functional Status Date Assessment Result Facility 03-31-2023 Functional Status N/A [facility] 09-30-2022 Functional Status N/A [facility] Clinical Notes 08-31-2021 to 08-10-2024 Ana Garcia, PhD - 08/10/2024 2:15 PM Ana Aguilar, PhD - 07/31/2024 4:22 PM ESTTelephone Encounter - Rafi Bernstein APRN.[facility] - 07/28/2024 8:13 AM EST Note Date & Type Note Facility 08-10-2024 Note HNO ID: [id number] Author: ANA GARCIA, PhD Service: ? Author Type: Psychologist Type: Progress Notes Filed: 08/10/2024 14:15 Note Text: No show [facility] 08-10-2024 History of Presen t illness Narrative No show documented in this encounter [facility] 07-31-2024 Note HNO ID: [id number] Author: ANA GARCIA, PhD Service: ? Author Type: Psychologist Type: Progress Notes Filed: 07/31/2024 16:23 Note Text: No show [facility] 07-31-2024 History of Presen t illness Narrative No show documented in this encounter [facility] 07-28-2024 Telephone encounter Note The following approved medication requests have been transmitted electronically. Requested Prescriptions Signed Prescriptions Disp Refills lamoTRIgine (LAMICTAL) 200 mg tablet 180 tablet 1 Sig: Take 1 tablet by mouth two times a day. Authorizing Provider: RAFI BERNSTEIN APRN.CNP [facility] 07-28-2024 Miscellaneous Notes The following approved medication requests have been transmitted electronically. Requested Prescriptions Signed Prescriptions Disp Refills lamoTRIgine (LAMICTAL) 200 mg tablet 180 tablet 1 Sig: Take 1 tablet by mouth two times a day. Authorizing Provider: RAFI BERNSTEIN APRN.TRAFFIC INVESTIGATOR Prescription Refill: Requested by: pharmacy Please E-Scribe Caller Contact Number: Pharmacy Name: [facility] Number: [id number] Generic/ brand: 30 or 90 day supply requested: 90 Last appointment: 05/05/24 Next Appointment: none Patient of Dr. Don Alonso III [id number] [address] [place] [address] documented in this encounter [facility] 07-28-2024 Telephone encounter Note Prescription Refill: Requested by: pharmacy Please E-Scribe Caller Contact Number: Pharmacy Name: [facility] Number: [id number] Generic/ brand: 30 or 90 day supply requested: 90 Last appointment: 05/05/24 Next Appointment: none Patient of Dr. Don Alonso III [id number] [address] [place] [id number] [facility] 06-30-2024 Note HNO ID: [id number] Author: ANA GARCIA, PhD Service: ? Author Type: Psychologist Type: Progress Notes Filed: 06/30/2024 17:12 Note Text: PSYCHOLOGY NOTE: Virtual visit This psychotherapy session was conducted virtually using Snip2Code/BuildOut. Consent related to virtual visit was provided verbally after information was read to patient. Current location: Home Emergency contact: On file S/O: This is a 28 year-old patient with nonepileptic seizures/conversion disorder in counseling for management of symptoms. 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 The patient reviewed the first chapter and discussed the types of seizures as well as their underlying triggers. Assignment was discussed on details of the process of therapy and engaging in the treatment. Understanding of the material appeared good; asked appropriate questions. Assignment included reading the next chapter, keeping a seizure log and a daily journal. MENTAL STATUS EXAM: The patient was alert, oriented. Eye contact was. Affect was. Her judgment/insight was. The patient having depressed mood. SI/HI was ASSESSMENT The patient with a history of seizure like episodes was diagnosed in the VEEG monitoring unit with nonepileptic seizures. The patient has PNES risk factors including trauma of losing his father at age 16, in his previous marriage adverse experiences/trauma as well as current stressors and a history of depression/anxiety. He is also currently going through divorce and has been having seizures during court appointments. The patient has current MH providers. Mood is controlled on current regimen of medications. IGOR symptoms significantly interfere with patient's function and quality of life. The patient is interested to attend our 12 week NBT counseling here and prognosis appears to be good. DIAGNOSIS (PROVISIONAL) 1. Functional Neurological Symptom Disorder 2. Rule out PTSD DIAGNOSIS (PROVISIONAL) AXIS I: 1. Conversion Disorder TREATMENT GOALS: Decrease seizure frequency Decrease symptoms of Anxiety/depression and other stress reactions Increase identification of emotions and emotional regulation Learn healthy tools for emotional release Set healthy boundaries with others Set healthy boundaries with self Increase tools related to communication Increase interest in activities/interest in life Increase healthy lifestyle routines (sleep, exercise, schedule) Develop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 unless gradual wean is necessary Will await instructions Forwarded to [facility] Skyla Sanchez RN [facility] 02-06-2024 Telephone encounter Note Patient has [...] his seizure presentation. Brendon Hale PA-C T [facility] Work Phone: 02-06-2024 Telephone encounter Note [...] seizure in separate encounter. Brendon Hale PA-C [facility] 02-06-2024 Telephone encounter Note Patient/friend, Yina report breakthrough seizure as follows: Last Visit: [...] precautions - does not drive Forwarded to [address] for review/recommendation Skyla Sanchez RN [facility] 02-06-2024 Telephone encounter Note Per Medicine [...] seizure encounter of 02/06/2024 Forwarded to [facility] for review/recommendation Skyla Sanchez RN [facility] 02-06-2024 Telephone encounter Note Medication Concern Person Calling Kimberley [facility] Name of medication Lamotrigine Concern with medication Pharmacist needs clarification on SIG for 25mg and [address] Babb [facility] 01-31-2024 Telephone encounter Note Spoke with patient - responded to questions No further needs at this time Skyla Sanchez RN [facility] Work Phone: 01-31-2024 Miscellaneous Notes Spoke with patient - responded to questions No further needs at this time Skyla Sanchez RN General call : Full name of person calling: Corey Alonso III Relationship to patient: self Phone # : [phone] (mobile) Reason for call: Patient wants to discuss whether specific job opportunity meets safety requirements. Patient of Dr. Babb documented in this encounter [facility] 01-31-2024 Telephone encounter Note General call : Full name of person calling: Corey Alonso III Relationship to patient: self Phone # : [phone] (mobile) Reason for call: Patient wants to discuss whether specific job opportunity meets safety requirements. Patient of Dr. Babb [facility] 01-29-2024 History of Presen t illness Narrative [facility] Patient Name: Corey Alonso III Date of : 1995 ESTABLISHED EPILEPSY CLINIC NOTE 01/29/2024 3:30 PM Reason for Visit: Established Patient and Follow Up Clinical Summary: Mr. Alonso is a 28 year old right-handed male seen in [facility]psy [facility]. 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 Ginger spearin PNES, he remans partially respinsve. 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, 11/28/2021): Normal EEG with no focal slowing or epileptiform activity. VEEG ([facility], 08/07/2022): During this day of recording no events were recorded. The interictal EEG was normal. Monitoring was continued in order to record the patient's typical events. (Only one day of monitoring was recorded) MRI brain wo contrast ([facility], 11/28/2021): Unremarkable Other caregivers: Primary Care Provider: Emeli Chi CNP, TRAFFIC INVESTIGATOR Current Outpatient Medications Medication Sig OXcarbazepine (TRILEPTAL) [...] (epilepsy) Maternal Aunt SOCIAL HISTORY: -Lives in [place], [place] -Patient lives alone? No -Vocation: -Education: [...] which included: preparing to see the patient [id number] patient care counseling and educating the patient/family/caregiver ordering medications, tests, or procedures care coordination (not separately reported) completing clinical documentation Deep Babb MD cc: Primary Care Physician: Emeli Chi, TRAFFIC INVESTIGATOR, TRAFFIC INVESTIGATOR [address] [address] Referring: Patient: Mr. Corey Alonso [address] [address] documented in this encounter [facility] 01-29-2024 Note HNO ID: [id number] Author: DEEP BABB MD Service: ? Author Type: Physician Type: Progress Notes Filed: 02/02/2024 22:23 Note Text: [facility] Patient Name: Corey Alonso III Date of : 1995 ESTABLISHED EPILEPSY CLINIC NOTE 01/29/2024 3:30 PM Reason for Visit: Established Patient and Follow Up Clinical Summary: Mr. Alonso is a 28 year old right-handed male seen in [facility]psy [facility]. 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 Ginger rutledge PNES, he remans partially respinsve. Other Neurological History No other pertinent neurological history Total # of Current Anti-seizure Medications: Side Effects to Current Anti-seizure Medications: Seizure Frequency at First Visit: 2 per week Longest Seizure-free Interval: 6 months Number of seizure types: 1 Hx of generalized tonic-clonic seizures: No (C (more content not included)... [facility] 01-02-2024 Note HNO ID: [id number] Author: GIOVANI SANCHEZ MD, PhD Service: Neurology [...] Remains standing. Seizure Detection Software on: Yes dietitian chief has been Notified: Yes pump rebuilder has been Notified: Yes EXAM: Mental Status: [...] TIME: 7:45 AM EPILEPSY CENTER STAFF NOTE [facility] STAFF PHYSICIAN NOTE OF PERSONAL INVOLVEMENT IN CARE I have reviewed the progress note obtained and documented by the COMPRESSOR TECHNICIAN/Resident/Fellow and I personally participated in the angeles [...] at home; week (more content not included)... [facility] 01-01-2024 Note HNO ID: [id number] Author: EBONY ROCHA, ? Service: Pharmacy Author Type: Extrusion Process Operator Type: Plan of Care Filed: 01/01/2024 16:42 Note Text: Insurance investigation completed Patient has active prescription insurance: Yes - Patient's insurance is in-network with [facility] Insurance loaded into [place]: Yes Test claim was completed to verify insurance is active: Successful Any questions, please contact your medication authorization coordinator. Pager #: [phone] Ebony Rocha CPhT Medication Demo Event Specialist [phone] [facility] 01-01-2024 Note HNO ID: [id number] Author: GIOVANI SANCHEZ MD, PhD Service: Neurology [...] Remains standing. Seizure Detection Software on: Yes dietitian chief has been Notified: Yes pump rebuilder has been Notified: Yes EXAM: Mental Status: [...] TIME: 7:43 AM EPILEPSY CENTER STAFF NOTE [facility] STAFF PHYSICIAN NOTE OF PERSONAL INVOLVEMENT IN CARE I have reviewed the progress note obtained and documented by the COMPRESSOR TECHNICIAN/Resident/Fellow and I personally participated in the angeles [...] at home; week (more content not included)... [facility] 12-31-2023 Note HNO ID: [id number] Author: GIOVANI SANCHEZ MD, PhD Service: Neurology [...] Remains standing. Seizure Detection Software on: Yes dietitian chief has been Notified: Yes pump rebuilder has been Notified: Yes EXAM: Mental Status: [...] ppx: ICPs bilaterally, LVX q24 hr starting 6/ pending CBC results Plan of care discussed with Provider, RN, Patient . SIGNATURE: Shandra Higgins PA-C PATIENT NAME: Corey Alonso III DATE: December 31, 2023 TIME: 7:34 AM EPILEPSY CENTER STAFF NOTE [facility] STAFF PHYSICIAN NOTE OF PERSONAL INVOLVEMENT IN CARE I have reviewed the progress note obtained and documented by the COMPRESSOR TECHNICIAN/Resident/Fellow and I personally participated in the angeles [...] Current seizure description -patient: felt sick (nausea), Nilsa vu (felt had the day of yesterday), [...] to record se (more content not included)... [facility] 12-30-2023 Note HNO ID: [id number] Author: DEEP BABB MD Service: ? Author Type: Physician Type: Progress Notes Filed: 12/30/2023 23:45 Note Text: [facility] Patient Name: Corey Alonso III Date of : 1995 Referring Provider: Shandra Berman [address] [facility] [address] INITIAL EPILEPSY CLINIC NOTE 12/30/2023 8:00 AM CHIEF COMPLAINT: New Patient HISTORY OF PRESENT ILLNESS Mr. 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 [facility] 12-30-2023 History of Presen t illness Narrative [facility] Patient Name: Corey Alonso III Date of : 1995 Referring Provider: Shandra Berman [address] [facility] [address] INITIAL EPILEPSY CLINIC NOTE 12/30/2023 8:00 AM CHIEF COMPLAINT: New Patient HISTORY OF PRESENT ILLNESS Mr. Alonso is a 28 year old right-handed male seen in [facility] Outpatient Clinic for initial consultation. At today's visit, the patient is accompanied by: His sister and mother Handedness: right-handed Age of onset: 19 years Seizure History and Evolution Taken from previous summary of patient's seizure history from OSH records: Two GTCS on 04/18/2015; felt dehydrated and went home after playing football outside; felt nauseous followed by aslhey vu (poorly describable feeling of familiarity) and [...] testing was not completed); was transferred to [facility]; was treated with IV medication (Keppra) and [...] evaluated in several facilities, most recently in [place], where he was told his episodes were [...] 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, 11/28/2021): Normal EEG with no focal slowing or epileptiform activity. VEEG ([facility], 08/07/2022): During this day of recording no events were recorded. The interictal EEG was normal. Monitoring was continued in order to record the patient's typical events. (Only one day of monitoring was recorded) MRI brain wo contrast ( - [facility], 11/28/2021): Unremarkable Other caregivers: Primary Care Provider: Emeli Chi CNP, TRAFFIC INVESTIGATOR No current facility-administered medications for this visit. [...] (epilepsy) Maternal Aunt SOCIAL HISTORY: -Lives in [place], [place] -Patient lives alone? 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 Babb. Michael Mabry MD PGY-2, Adult Neurology Date: 12/30/2023 [facility] STAFF PHYSICIAN NOTE OF PERSONAL INVOLVEMENT IN CARE I have reviewed the history and physical examination obtained and documented by the resident and I personally participated in the angeles components. I have discussed the case and management of the patient's care. CARE COORDINATION: The majority of the visit was spent counseling and/or coordinating care for the patient. Fnom-gb-chya time was 45 minutes Deep Babb MD December 30, 2023 11:44 PM cc: Primary Care Physician: Emeli Chi CNP, TRAFFIC INVESTIGATOR [address] [address] Referring: Shandra Berman [address] [facility] [address] Patient: Mr. Corey Alonso [address] [address] documented in this encounter [facility] 11-12-2023 Note HNO ID: [id number] Author: SHANDRA BERMAN APRN.[place] Service: ? Author Type: Nurse Practitioner Type: Progress Notes Filed: 11/13/2023 08:26 Note Text: [facility]psy [facility] Review of Records Patient: Corey Alonso III Address: [address] [place] [id number] Impression: Review of records for Corey Alonso [...] asthma, anxiety, depression PRIOR EVALUATIONS: [facility] [address] [place] [address] EEG ([facility], 11/28/2021): Normal EEG with no focal slowing or epileptiform activity. VEEG ([facility], 08/07/2022): During this day of recording no events were recorded. The interictal EEG was normal. Monitoring was continued in order to record the patient's typical events. (Only one day of monitoring was recorded) MRI brain wo contrast ([facility], 11/28/2021): Motion artifact mildly degrades the images. No acute brain parenchymal abnormality [facility] Recommendations: - Admit to EMU for VEEG monitoring, diagnostic evaluation Location: [facility] [place] - Visit with Dr. Greenberg prior to admission - Additional testing to be considered by epilepsy clinicians Signed: Shandra Berman APRN.TRAFFIC INVESTIGATOR November 12, [address] Sandoval for review and recommendations. --------- MD Recommendations (as discussed with Dr. Sandoval): - Please proceed with the above plan. Please route this encounter to the EMU Scheduling Pool ( P EMU ) or PMU Scheduling Pool ( P PMU ) through LOS AND Follow up PHASE 1.0 AND 1.5 ORDER SYNOPSIS Patient: Corey Cabrales Gonzalezcoby EPIFANIO ([id number]) Best contact number: [phone] Insurance: Payor: [place] / Plan: ANITHA [place] MEDICAID / Product Type: Medicaid / Scheduling Team: Please call for adult patients: Tigist Ruano ([phone]) Sarah Solo ([phone]) Omega Ramos ([phone]) Ivory Wan([phone]) Eulalia Mittal([phone]) Please call for pediatric patients: Ivory Wan ([phone]) Tigist Noelpaolo ([phone]) Sarah Solo ([phone]) Omega Ramos ([phone]),Eulalia Mittal([phone]) 11/13/2023 -- Admission Type EMU Adult Number of Days requested [address] [place] [address] Admit Priority Routine 11/13/2023 PURPOSE Patient Being [...] MILENA, please schedule VNS off/on office visits. [facility] 11-12-2023 History of Presen t illness Narrative [facility] Review of Records Patient: Corey Alonso III Address: [address] [place] [address] Impression: Review of records for Corey Alonso [...] asthma, anxiety, depression PRIOR EVALUATIONS: [facility] [address] [place] [address] EEG ([facility], 11/28/2021): Normal EEG with no focal slowing or epileptiform activity. VEEG ([facility], 08/07/2022): During this day of recording no events were recorded. The interictal EEG was normal. Monitoring was continued in order to record the patient's typical events. (Only one day of monitoring was recorded) MRI brain wo contrast ([facility], 11/28/2021): Motion artifact mildly degrades the images. No acute brain parenchymal abnormality KALIA Recommendations: - Admit to EMU for VEEG monitoring, diagnostic evaluation Location: [facility] - Visit with Dr. Greenberg prior to admission - Additional testing to be considered by epilepsy clinicians Signed: Shandra Berman APRN.TRAFFIC INVESTIGATOR November 12, [address] Sandoval for review and recommendations. --------- MD Recommendations (as discussed with Dr. Sandoval): - Please proceed with the above plan. Please route this encounter to the EMU Scheduling Pool ( P EMU ) or PMU Scheduling Pool ( P PMU ) through LOS & Follow up PHASE 1.0 AND 1.5 ORDER SYNOPSIS Patient: Corey Alonso III ([id number]) Best contact number: [phone] Insurance: Payor: [place] MEDICAID / Plan: ANITHA [facility] MEDICAID / Product Type: Medicaid / Scheduling Team: Please call for adult patients: Tigist Ruano ([phone]) Sarah Solo ([phone]) Omega Ramos ([phone]) Ivory Wan([phone]) Eulalia Mittal([phone]) Please call for pediatric patients: Ivorycoby Wan ([phone]) Tigist Ruano ([phone]) Sarah Solo ([phone]) Omega Ramos ([phone]),Eulalia Mittal([phone]) 11/13/2023 -- Admission Type EMU Adult Number of Days requested [address] [place] [address] Admit Priority Routine 11/13/2023 PURPOSE Patient Being [...] off/on office visits. documented in this encounter [facility] 11-12-2023 Miscellaneous Notes OSH imaging/records received: November 12, 2023 -Consult Notes -EEG Reports -MRI Brain Report Care Everywhere [facility] Initial Intake Interview November 12, 2023 2:53 PM Caller: Corey Relationship to pt: Self Patient name: Corey Alonso III Age: [age] year old Address: [address] [place] [address] (home) Insurance: Payor: [place] MEDICAID / Plan: [facility] MEDICAID / Product Type: Medicaid / Referred by: Self (word of mouth) Referring to: Dr. Greenberg Reason for Evaluation: further evaluation and treatment Previously evaluated at: [facility] [address] [place] [address] Fax: N/A Age & date of onset [...] or No Date Facility EEG Yes 2021 [facility] Video EEG Yes 2021 [facility] MRI brain Yes [address] [facility] [address] brain No fMRI brain No [...] Signed: Eulalia Mittal documented in this encounter [facility] 03-31-2023 Hospital Discharg e instructions Patient [...] Follow these instructions at home: Medicines Take adml-yor-urymurk and prescription medicines only as told by [...] and water are not available, use hand building carpenter. ?Gently wash the wound area with mild [...] provider. Document Revised: 07/06/2020 Document Reviewed: 07/06/2020 [employer] Patient Education 2022 [employer]. Follow Up Care 03/31/2023 16:45:16 With:EMELI CHI Address: [address] [place] [address]- [phone] Business (1) When:04/03/2023 16:54:21 Comments:Call the office [...] 5 days or until sutures are removed. [facility] 03-31-2023 Evaluation + Plan note Extrac perfecto from: Title:ED Note Author:Ramón Carrizales DO Date: Wound dehiscence (T81.30XA: Disruption of wound, unspecified, initial encounter) [facility]03-05-2023 Hospital Discharge instructions Patient Education 09/30/2022 21:30:18 [...] having seen or heard something before (d keron blum). Odd tastes or smells. Changes in [...] Follow these instructions at home: Medicines Take mrzn-ipy-dvbggxb and prescription medicines only as told by [...] Treatment is effective at controlling seizures. Take eghn-uxm-wkmryca and prescription medicines only as told by [...] 07/15/2006 Document Revised: 03/09/2019 Document Reviewed: 03/09/2019 [employer] Patient Education 2020 Cuedd. Follow Up Care 09/30/2022 20:00:37 With:EMELI CHI Address: [address] [place] [address] [place] [address]- [phone] Business (1) When:Within 3 Day(s) [facility]03-05-2023 Evaluation + Plan noteExtracted from: Title:ED Note Author:Junior Raygoza DO Date :09/30/22 Seizure (R56.9: Unspecified convulsions) Orders: lorazepam, 2 mg = 2 tab(s), Tab, Oral, Once, Stop date 09/30/22 22:00:00 EST, Routine, Start date 09/30/22 22:00:00 EST, 09/30/22 21:09:00 EST [facility]01-14-2023 Hospital course Narrative* Benjamin Miles MD - 08/11/2022 2:28 PM EST Images from the original note were not included. [facility] Department of Neurology INPATIENT DISCHARGE SUMMARY Patient Identification: Corey Alonso III is a 27 y.o. male. : 1995 Acct: [id number] Admit Date: 08/07/2022 Discharge date and time: [...] seizure-free since then. Follows with neurologist in [place] currently taking Trileptal 600 mg twice daily, [...] Diet: regular diet Follow-up: Hans Granado MD [address] [place] [address] Dr Hutson A [facility] [phone] Schedule an appointment as soon as possible for a visit follow up with neurology in 4-6weeks for seizure disorder Follow up labs: None Follow up imaging: None Note that over 30 minutes was spent in preparing discharge papers, discussing discharge with patient, medication review, etc. Benjamin Miles MD, Neurology Resident PGY-2 Department of Neurology [place], [place] 08/11/2022, 4:52 PM Associated attestation - [...] PM documented in this [facility] Work Phone: 1(613) 781-922501-14-2023 History of Present illness Narrative* Benjamin Miles MD - 08/11/2022 2:16 PM EST [facility] Neurology IN-PATIENT SERVICE [facility] Progress Note Date: 08/11/2022 Patient name: Corey Alonso III Date of admission: 08/07/2022 2:07 PM Account: [id number] Date of : 1995 PCP: Emeli Chi Room: [facility]998[facility] Code Status: Full Code Chief Complaint: Elective [...] recall events, occasionally has aura of d keron vu with confusion. States that stress and sleep deprivation trigger his seizures. He can be seizure-free for weeks and then have 1-2 seizures per day. Had 6 seizures that occurred overnight 07/03-07/04. Has been seizure-free since then. Follows with neurologist in [place] currently taking Trileptal 600 mg twice daily, [...] follows up with his own neurologist in [place] and has been taking Trileptal 600 mg twice daily and Lamictal 300 mg twice daily. LTME was recommended to capture and characterize her typical spells. Patient presented to [facility] on 08/07/2022 for inpatient LTME. [...] to ensure the accuracy of this automated human resource management instructor, some errors in human resource management instructor may have occurred. Associated attestation - Chavez [...] the event. He described occasional aura ofd keron blum with confusion. He noted stress & sleep deprivation trigger his seizures. He can be seizure-free for weeks and then have 1 or 2 seizures per day. He had 6 seizures that occurred overnight 07/03-07/04/22. No seizures were witnessed by his . Has been seizure-free since then. He follows up with his own neurologist in [place] and has been taking Trileptal 600 mg twice daily and Lamictal 300 mg twice daily. LTME was recommended to capture and characterize her typical spells. Patient presented to [facility] on 08/07/2022 for inpatient LTME. [...] to ensure the accuracy of this automated human resource management instructor, some errors in human resource management instructor may have occurred. Associated attestation - Chavez [...] made to the note as needed. Chavez DO Rosa 08/09/2022 5:17 PM * Kayden Collado APRN - TRAFFIC INVESTIGATOR - 2022 11:57 AM EST Neurology Nurse [...] Hefollows up with his own neurologist in [place] and has been taking Trileptal 600 mg twice daily and Lamictal 300 mg twice daily. LTME was recommended to capture and characterize her typical spells. Patient presented to [facility] on 08/07/2022 for inpatient LTME. [...] to ensure the accuracy of this automated human resource management instructor, some errors in human resource management instructor may have occurred. * Tisha Peters - 08/07/2022 5:32 PM EST ALTM started documented in this encounterBON [facility] Work Phone: 1(605) 598-784009-15-2022 NoteSperm Rapid ProgressiveSeptember 2021 9:00amTNPTest not performedChillicothe Va Medical Center [address] [facility] [address]AsfghxtvzWexner Medical CenterComment on above:Test not [id number] NoteSperm Non-ProgressiveSeptember 2021 9:00amTNPTest not performedTrinity [facility] [address] [facility] [address]TyynmgmraWexner Medical CenterComment on above:Test not [id number] History of Present illness Narrative* Maritza Romo MD - 02/02/2022 6:12 AM EDT Images from the original note were not included. EMERGENCY TRIAGE, TREAT AND TRANSPORT (ET3) DOCUMENTATION OF TELEHEALTH VISIT Date / Time: 02/02/2022599 Name: Corey Alonso : 1995 SSN: [id number] EMS Agency: [facility] [x] Verbal consent obtained [] [...] by: Maritza Romo MD documented in this [id number] Miscellaneous Notes* Telephone Encounter - Won Huerta MD - 11/23/2021 5:27 PM EDT Called to discuss results Remains azoospermic - suspected obstructive process Discussed next steps - TESE with IVF He will consider this and let us know All questions answered RTC prn Won Huerta MD, PhD [facility] NoteHNO ID: [id number] Author: Tung Macias MD Service: Anesthesiology Author Type: Anesthesiologist Type: Anesthesia Procedure Notes Filed: 09/01/2021 6:32 AM Note Text: ANESTHESIOLOGY PROCEDURE NOTE Airway General Information Procedure Start Time/Medication Administration: 08/31/2021 1:10 PM Patient location during procedure: OR Timeout Performed Pre-procedure: timeout performed Consent Obtained: Yes Patient identity confirmed: arm band and patient Staffing Anesthesiologist: Tung Macias MD ELECTRIC MOTOR REPAIRMAN: Rubi Javier APRN.ELECTRIC MOTOR REPAIRMAN Performed by: ELECTRIC MOTOR REPAIRMAN Indications and Patient Condition Preoxygenated: yes Patient position: sniffing Manual In-Line Stabilization: No Difficult Mask: No Indications for airway management: anesthesia anesthesia circuit Method: asleep Cricoid Pressure: No Final Airway Details Final airway type: supraglottic airway Number of attempts at approach: 1 Final Supraglottic Airway: Size 1 Seal Adequate: yes Failed airway: no Unrecognized esophageal intubation: no Airway not difficult SIGNATURE: Rubi Javier APRN.ELECTRIC MOTOR REPAIRMAN PATIENT NAME: Corey Alonso III DATE: August 31, 2021 TIME: 1:16 PM CSN: [id number] [facility] Hospital note* Diagnosis Seizure (HCC)- Primary Other convulsions documented in this encounter [facility] noteNo assessment information availableChillicothe Va Medical Center Work Phone: Evaluation note* Diagnosis Partial symptomatic epilepsy with complex partial seizures, intractable, without status epilepticus (HCC)- Primary Seizure-like activity (HCC) Other convulsions [facility] Work Phone: evaluation note* Diagnosis Seizure (HCC)- Primary Other convulsions documented in this encounter [facility] note* Diagnosis Seizure (HCC)- Primary Other convulsions Anxiety Anxiety state, unspecified Recurrent major depressive disorder, in partial remission (HCC) documented in this encounter [facility] note* Diagnosis Psychogenic nonepileptic seizure- Primary documented in this encounter [facility] note* Diagnosis Seizure (HCC)- Primary Other convulsions documented in this encounter [facility] note* Diagnosis Seizure-like activity (HCC)- Primary Other convulsions documented in this encounter [facility] note* Diagnosis Seizure-like activity (HCC)- Primary Other convulsions documented in this encounter [facility] note* Diagnosis Seizure (HCC) Other convulsions documented in this encounter [facility] note* Diagnosis Pre-op evaluation- Primary Preoperative examination, unspecified Azoospermia Cryptogenic localization-related epilepsy (HCC) Localization-related (focal) (partial) epilepsy and epileptic syndromes with simple partial seizures, without mention of intractable epilepsy Psychogenic nonepileptic seizure documented in this encounter [facility] note* Diagnosis Pre-op evaluation- Primary Preoperative examination, unspecified Azoospermia Cryptogenic localization-related epilepsy (HCC) Localization-related (focal) (partial) epilepsy and epileptic syndromes with simple partial seizures, without mention of intractable epilepsy Psychogenic nonepileptic seizure- Primary Seizure-like activity (HCC) Other convulsions documented in this encounter [facility] [place] [facility]* Diagnosis Pre-op evaluation- Primary Preoperative examination, unspecified Azoospermia Cryptogenic localization-related epilepsy (HCC) Localization-related (focal) (partial) epilepsy and epileptic syndromes with simple partial seizures, without mention of intractable epilepsy Functional 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 Conversion disorder documented in this encounter [facility] [place] [facility]* Diagnosis Pre-op evaluation- Primary Preoperative examination, unspecified Azoospermia Cryptogenic localization-related epilepsy (HCC) Localization-related (focal) (partial) epilepsy and epileptic syndromes with simple partial seizures, without mention of intractable epilepsy Seizure-like activity (HCC) Other convulsions documented in this encounter [facility] [place] [facility]* Diagnosis Pre-op evaluation- Primary Preoperative examination, unspecified Azoospermia Cryptogenic localization-related epilepsy (HCC) Localization-related (focal) (partial) epilepsy and epileptic syndromes with simple partial seizures, without mention of intractable epilepsy Functional 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 Conversion disorder [facility] encounter [facility] [place] [facility]* Diagnosis Pre-op evaluation- Primary Preoperative examination, unspecified Azoospermia Cryptogenic localization-related epilepsy (HCC) Localization-related (focal) (partial) epilepsy and epileptic syndromes with simple partial seizures, without mention of intractable epilepsy Functional 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 Conversion disorder documented in this encounter [facility] course Narrative No data available for this section [facility] No data available for this section [facility]onReason for referral (narrative)* Outpatient Procedure (Routine) - Pending Review Specialty Diagnoses / Procedures Referred By Randy t Referred To Contact [facility] Diagnoses Seizure (HCC) Procedures EPIL EEG LEAD PLACEMENT EEG EXTENDED MONITORING 61-119 MINUTES ELECTROENCEPHALOGRAM REC COMA/SLEEP ONLY Shandra Berman, INVESTIGATOR UTILITY BILL COMPLAINTS.[facility] [address] [place] [address] [facility] [address] [place] [address] Referral ID Status Reason Start Date Expiration Date Visits Requested Visits Authorized [id number] Pending Review Auto-Generat ed Referral 11/13/2023 11/12/2024 1 1 [facility] Summary Purpose Family History No Family History Records FoundNo Family History Records FoundNo Family History Records FoundNo Family History Records FoundNo Family History Records FoundNo Family History Records FoundNo Family History Records FoundNo Family History Records FoundNo Family History Records Found Advance Directives No Advanced Directives Records FoundDocuments on File Type Date 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 Advance Directive(s) 07/17/2021 12:20 PM [...] STEM W/O CONTRAST MATERIAL Shandra Higgins PA-C [address] [place] [address] [facility] [place] [address] Referral ID Status Reason Start Date Expiration Date Visits Requested Visits Authorized [id number] Pending Review Auto-Generat ed Referral 01/02/2024 01/31/2025 1 1 Specialty Diagnoses / Procedures Referred By Randy gupta Referred To Contact Psychology Diagnoses Psychogenic nonepileptic seizure Procedures CONSULT TO PSYCHOLOGY OFFICE/OUTPATIENT [facility] 60 MINUTES Shandra Higgins PA-C [address] [place] [address] Referral ID Status Reason Start Date Expiration Date Visits Requested Visits Authorized [id number] Pending Review PCP Requested Referral 01/02/2024 01/01/2025 1 1 Additional Source Comments (unrecognized sect ion and content) No Status Records FoundNo Status Records FoundNo Status Records FoundNo Status Records FoundNo Status Records FoundNo Status Records FoundNo Status Records FoundNo Status Records FoundNo Status Records Found INFORMATION SOURCE (unrecogn ized section and content) DATE CREATED AUTHOR 01/22/2018 [facility] DATE CREATED AUTHOR AUTHOR'S ORGANIZ ATION 09/01/2021 [facility] DATE CREATED AUTHOR AUTHOR'S ORGANIZ ATION 12/05/2021 [facility] DATE CREATED AUTHOR AUTHOR'S ORGANIZ ATION 02/15/2022 [facility] DATE CREATED AUTHOR AUTHOR'S ORGANIZ ATION 04/27/2022 [facility] DATE CREATED AUTHOR AUTHOR'S ORGANIZ ATION 09/26/2022 [facility] DATE CREATED AUTHOR AUTHOR'S ORGANIZ ATION 03/31/2023 [facility] DATE CREATED AUTHOR AUTHOR'S ORGANIZ ATION 05/31/2023 [facility] DATE CREATED AUTHOR AUTHOR'S ORGANIZ ATION 08/13/2024 [facility] Source Comments (unrecognize d section and content) In the event this informatio n is protected by the Federal Confidentiality of Alcohol and Drug Abuse Patient Records regulations: The Federal rules restrict any use of the information to criminally investigate or prosecute any alcohol or drug abuse patient.[facility] HospitalIn the event this information is protected by the Federal Confidentiality of Alcohol and Drug Abuse Patient Records regulations: The Federal rules restrict any use of the information to criminally investigate or prosecute any alcohol or drug abuse patient.[facility] HospitalIn the event this information is protected by the Federal Confidentiality of Alcohol and Drug Abuse Patient Records regulations: The Federal rules restrict any use of the information to criminally investigate or prosecute any alcohol or drug abuse patient.[facility] HospitalIn the event this information is protected by the Federal Confidentiality of Alcohol and Drug Abuse Patient Records regulations: The Federal rules restrict any use of the information to criminally investigate or prosecute any alcohol or drug abuse patient.[facility] HospitalIn the event this information is protected by the Federal Confidentiality of Alcohol and Drug Abuse Patient Records regulations: The Federal rules restrict any use of the information to criminally investigate or prosecute any alcohol or drug abuse patient.[facility] HospitalIn the event this information is protected by the Federal Confidentiality of Alcohol and Drug Abuse Patient Records regulations: The Federal rules restrict any use of the information to criminally investigate or prosecute any alcohol or drug abuse patient.[facility] HospitalIn the event this information is protected by the Federal Confidentiality of Alcohol and Drug Abuse Patient Records regulations: The Federal rules restrict any use of the information to criminally investigate or prosecute any alcohol or drug abuse patient.[facility] HospitalIn the event this information is protected by the Federal Confidentiality of Alcohol and Drug Abuse Patient Records regulations: The Federal rules restrict any use of the information to criminally investigate or prosecute any alcohol or drug abuse patient.[facility] HospitalIn the event this information is protected by the Federal Confidentiality of Alcohol and Drug Abuse Patient Records regulations: The Federal rules restrict any use of the information to criminally investigate or prosecute any alcohol or drug abuse patient.[facility] HospitalIn the event this information is protected by the Federal Confidentiality of Alcohol and Drug Abuse Patient Records regulations: The Federal rules restrict any use of the information to criminally investigate or prosecute any alcohol or drug abuse patient.[facility] HospitalIn the event this information is protected by the Federal Confidentiality of Alcohol and Drug Abuse Patient Records regulations: The Federal rules restrict any use of the information to criminally investigate or prosecute any alcohol or drug abuse patient.[facility] HospitalIn the event this information is protected by the Federal Confidentiality of Alcohol and Drug Abuse Patient Records regulations: The Federal rules restrict any use of the information to criminally investigate or prosecute any alcohol or drug abuse patient.[facility] HospitalIn the event this information is protected by the Federal Confidentiality of Alcohol and Drug Abuse Patient Records regulations: The Federal rules restrict any use of the information to criminally investigate or prosecute any alcohol or drug abuse patient.[facility] Hospital[facility] the event this information is protected by the Federal Confidentiality of Alcohol and Drug Abuse Patient Records regulations: The Federal rules restrict any use of the information to criminally investigate or prosecute any alcohol or drug abuse patient.[facility] the event this information is protected by the Federal Confidentiality of Alcohol and Drug Abuse Patient Records regulations: The Federal rules restrict any use of the information to criminally investigate or prosecute any alcohol or drug abuse patient.[facility] the event this information is protected by the Federal Confidentiality of Alcohol and Drug Abuse Patient Records regulations: The Federal rules restrict any use of the information to criminally investigate or prosecute any alcohol or drug abuse patient.[facility]In the event this information is protected by the Federal Confidentiality of Alcohol and Drug Abuse Patient Records regulations: The Federal rules restrict any use of the information to criminally investigate or prosecute any alcohol or drug abuse patient.[facility] Hospital[facility] the event this information is protected by the Federal Confidentiality of Alcohol and Drug Abuse Patient Records regulations: The Federal rules restrict any use of the information to criminally investigate or prosecute any alcohol or drug abuse patient.[facility] HospitalIn the event this information is protected by the Federal Confidentiality of Alcohol and Drug Abuse Patient Records regulations: The Federal rules restrict any use of the information to criminally investigate or prosecute any alcohol or drug abuse patient.[facility] HospitalIn the event this information is protected by the Federal Confidentiality of Alcohol and Drug Abuse Patient Records regulations: The Federal rules restrict any use of the information to criminally investigate or prosecute any alcohol or drug abuse patient.[facility] Reason for Visit (unrecogniz ed section and content) Reason Comments Results Reason Comments Seizures Specialty Diagnoses / Procedures Referred By Contac t Referred To Contact Diagnoses Partial symptomatic epilepsy with complex partial seizures, intractable, without status epilepticus (HCC) Seizure-like activity (HCC) partial symptomatic epilepsy w/ complex partial seizures intractable w/o status epilepticus needing LTME Chavez Lee, DO [address] [facility] [address] [place] [address] [facility] [address] [place] [address] Referral ID Status Reason Start Date Expiration Date Visits Re quested Visits Authorized [id number] 1 1 Reason Comments Future Appointment [place], [place], [place] Reason Comments New Patient Specialty Diagnoses / Procedures Referred By Contac t Referred To Contact HOSP INPATIENT Diagnoses Unspecified convulsions Procedures EEG PHYS/QHP EA INCR>12HR<26HR AFTER 24HR W/VEEG [facility] [address] [place] [address] Referral ID Status Reason Start Date Expiration Date Visits Re quested Visits Authorized [id number] 1 1 Reason Comments Other Reason Comments Established Patient Follow Up Reason Comments Seizures Reason Comments Medication Problem Lamotrigine Specialty Diagnoses / Procedures Referred By Contac t Referred To Contact MR IMAGING Diagnoses Seizure (HCC) Procedures MRI BRAIN WO IVCON MRI BRAIN BRAIN STEM W/O CONTRAST MATERIAL Shandra Higgins PA-C [address] [place] [address] [place] [address] Referral ID Status Reason Start Date Expiration Date V isits Requested Visits Authorized [id number] Closed Auto-Generate d Referral 02/03/2024 03/04/2024 1 1 Reason Comments New Specialty Diagnoses / Procedures Referred By Contac t Referred To Contact Psychology Diagnoses Psychogenic nonepileptic seizure Procedures CONSULT TO PSYCHOLOGY OFFICE/OUTPATIENT NEW HIGH MDM 60 MINUTES Shandra Higgins PA-C [address] [place] [address] Referral ID Status Reason Start Date Expiration Date Visits Requested Visits Authorized [id number] Pending Review PCP Requested Referral 01/02/2024 01/01/2025 1 1 Reason Comments Follow Up Seizures Followup visit Reason Comments Social Work Services Reason Comments Refill Request Reason Comments Follow Up Care Teams (unrecognized sec tion and content) Buyer Intern Relationship Specialty Start Date End Date Emeli Chi, [place] [address] [place] [address] PCP - General Internal Medicine 07/17/21 Team Status: Inactive Member Role Status Dates TAQUERIA Courtney Primary Care Provider Active Derek Burks Attending Provider Active Team Status: Active Member Role Status Dates TAQUERIA Courtney Primary Care Provider Active Buyer Intern Relationship Specialty Start Date End Date Emeli Chi [address] [place] [address] PCP - General 11/16/21 Buyer Intern Relationship Specialty Start Date End Date Emeli Chi CNP [address] [place] [address] PCP - General Internal Medicine 07/17/21 Buyer Intern Relationship Specialty Start Date End Date Emeli Chi CNP [address] [place] [address] PCP - General Internal Medicine 07/17/21 Buyer Intern Relationship Specialty Start Date End Date Emeli Chi CNP [address] [place] [address] PCP - General Internal Medicine 07/17/21 Buyer Intern Relationship Specialty Start Date End Date Emeli Chi CNP [address] [place], [place] [id number] PCP - General Internal Medicine 07/17/21 Buyer Intern Relationship Specialty Start Date End Date Emeli Chi CNP [address] [place], [place] [id number] PCP - General Internal Medicine 07/17/21 Buyer Intern Relationship Specialty Start Date End Date Emeli Chi CNP [address] [place] [address] PCP - General Internal Medicine 07/17/21 Buyer Intern Relationship Specialty Start Date End Date Emeli Chi CNP [address] [place] [address] PCP - General Internal Medicine 07/17/21 Buyer Intern Relationship Specialty Start Date End Date Emeli Chi CNP [address] [place] [address] PCP - General Internal Medicine 07/17/21 Buyer Intern Relationship Specialty Start Date End Date Emeli Chi CNP [address] [place] [address] PCP - General Internal Medicine 07/17/21 Buyer Intern Relationship Specialty Start Date End Date Emeli Chi CNP [address] [place] [address] PCP - General Internal Medicine 07/17/21 Buyer Intern Relationship Specialty Start Date End Date Emeli Chi CNP [address] [place] [address] PCP - General Internal Medicine 07/17/21 Buyer Intern Relationship Specialty Start Date End Date Emeli Chi CNP [address] [place] [address] PCP - General Internal Medicine 07/17/21 Buyer Intern Relationship Specialty Start Date End Date Emeli Chi CNP [address] [place] [address] PCP - General Internal Medicine 07/17/21 Buyer Intern Relationship Specialty Start Date End Date Emeli Chi CNP [address] [place] [address] PCP - General Internal Medicine 07/17/21 Buyer Intern Relationship Specialty Start Date End Date Emeli Chi CNP [address] [place] [address] PCP - General Internal Medicine 07/17/21 Buyer Intern Relationship Specialty Start Date End Date Emeli Chi CNP [address] [place] [address] PCP - General Internal Medicine 07/17/21 Buyer Intern Relationship Specialty Start Date End Date Emeli [place] [address] [place] [address] PCP - General Internal Medicine 07/17/21 Goals [...] 1900 0647 (Given - Provider: Kash Juarez RN)183 (Given - Provider: Brittaney Scott RN) 0634 (Given - Provider: Eli Michel RN) lamoTRIgine (LAMICTAL) tablet 200 mg (CANCELED) 200 mg, Oral, 2 TIMES DAILY, First dose (after last modification) on Sat08/07/22 at 1900, Until Discontinued, TO BE GIVEN AT 0700 AND 1900, TO BE GIVEN AT 0700 AND 1900 0647 (Given - Provider: Kash Juarez RN)183 (Given - Provider: Brittaney Scott RN) 0634 [...] mL/lumen 0847 (Given - Provider: Brittaney Scott RN)211 (Given - Provider: Eli Michel RN) 0926 [...] BE BASED ON THE PRIMARY CLINICAL RECORDS. [facility]. provides no warranty or guarantee of the accuracy or completeness of information in this document.
[2024-08-15] MEDS: LIDOCAINE HCL 1% 100 MG/10 ML MDV INJ (20:53)
--- NOTE | 2024-08-15 21:03 | ED_ITS ---
HPI HPI - Extremity Injury (Upper) General Chief Complaint: Extremity Injury, Upper Stated Complaint: RIGHT FINGER CUT Time Seen by Provider: 08/15/24 20:39 Source: patient Mode of arrival: walk-in Limitations: no limitations History of Present Illness HPI narrative: Patient was doing dishes when he accidentally broke a glass, cutting the palmar aspect of the right hand near the base of the index finger in the crease of the palm. No other injury sustained and he has normal functionality of the fingers of the right hand. On chart review his tetanus has been updated recently He has no other complaint This occurred just before arrival Related Data Home Medications ?Medication ?Instructions ?Recorded ?Confirmed lamotrigine 200 mg tablet 200 mg PO Q12H 02/05/23 08/15/24 oxcarbazepine 600 mg tablet 600 mg PO BID 02/05/23 08/15/24 Allergies Allergy/AdvReac Type Severity Reaction Status Date / Time No Known Drug Allergies Allergy Verified 08/15/24 20:46 Opioid HPI Opioid Management Most Recent Pain and Opioid Data: Last Pain Scale 4 08/15/24 20:49 08/15/24 Last ED Pain Assessment 08/15/24 20:48 Ur Phencyclidine Scrn Negative (NEGATIVE) 10/27/23 23:41 09/28 08/21 PFS PFS Medical History (Updated 08/15/24 @ 21:07 by Jose Alfredo Abrams) Epilepsy ?G40.909 - Epilepsy, unspecified, not intractable, without status epilepticus (ICD-10) Social History Smoking status: Unknown if ever smoked Little interest or pleasure in doing things: not at all Feeling down, depressed, or hopeless: not at all Exam Narrative Exam Narrative: Nurses notes and vital signs reviewed and patient is not hypoxic. afebrile General: Well-appearing and in no apparent distress. Skin: Warm, dry, no pallor noted. Cardiovascular: Normal peripheral perfusion. Respiratory: No accessory muscle use or respiratory distress. Musculoskeletal: Right hand -curvilinear laceration noted to the palmar aspect of the right hand along the second MCP with some extension toward the thumb. 50% of the wound is deep although I do not detect any tendon laceration and he has expected strength and function of the fingers of the right hand for flexion, as well as extension. The remaining 50% of the wound is very shallow, almost a flap laceration. All fingers of the right hand have normal ROM in the fingers have normal capillary refill without duskiness or ecchymosis. Neurological: A&O x4. No cranial nerve dysfunction observed. No truncal ataxia. Moves all fingers as described above. Sensation intact distal to the wound. Psychiatric: Cooperative and interactive. Normal mood and affect. Constitutional Vital Signs, click to edit/add: Last Vital Signs Temp 98.1 F 08/15/24 20:40 Pulse 90 08/15/24 20:40 Resp 16 08/15/24 20:40 BP 138/80 08/15/24 20:40 Pulse Ox 97 08/15/24 20:40 O2 Del Method Room Air 08/15/24 20:40 Course Vital Signs Vital signs: Vital Signs Temperature 98.1 F 08/15/24 20:40 Pulse Rate 90 08/15/24 20:40 Respiratory Rate 16 08/15/24 20:40 Blood Pressure 138/80 08/15/24 20:40 Pulse Oximetry 97 08/15/24 20:40 Oxygen Delivery Method Room Air 08/15/24 20:40 Temperature 98.1 F 08/15/24 20:40 Pulse Rate 90 08/15/24 20:40 Respiratory Rate 16 08/15/24 20:40 Blood Pressure 138/80 08/15/24 20:40 Pulse Oximetry 97 08/15/24 20:40 Oxygen Delivery Method Room Air 08/15/24 20:40 MDM - Extremity Injury (Upper) MDM Narrative Medical decision making narrative: Laceration repair: All of the procedure was done under sterile conditions. Wound cleansed with betadine and anesthetized with local injection of approximately 2mL of lidocaine 1% without epinephrine. An additional 5 mL of lidocaine 1% without epinephrine was used to flush the wound. No foreign body was identified within the wound including glass. The wound was explored to depth and found to be free of foreign material. The laceration wound edges were well-approximated and did not require revision. Wound closed with 5 sterile 4-0 ethilon sutures in simple interrupted fashion. Patient tolerated the procedure well. The patient was neurovascularly intact post-repair. Topical bacitracin applied to the laceration and it was dressed with a dry sterile dressing. The patient will need to follow-up in the next 7-10 days for removal. Discharge Plan Discharge Chief Complaint: Extremity Injury, Upper Clinical Impression: Laceration of hand, right Patient Disposition: Home, Self-Care Time of Disposition Decision: 21:03 Prescriptions / Home Meds: No Action lamotrigine 200 mg tablet 200 mg PO Q12H oxcarbazepine 600 mg tablet 600 mg PO BID Print Language: Estonian Instructions: Care For Your Stitches (ED), Laceration (ED) Referrals: MANNY CHI [Primary Care Provider] - 1 week
== END 2024-08-15 21:18 | disposition home or self-care (01) ==
PROVIDERS: Emergency Provider Emergency Medicine; PCP Nurse Practitioner Family
DX: S61.411A Laceration without foreign body of right hand, initial encounter (principal); W25.XXXA Contact with sharp glass, initial encounter
CPT/HCPCS: 12001; 99284

== ENCOUNTER 2024-10-10 20:56 | Emergency (ER) | payer OTHER, SELFPAY ==
[2024-10-10] VITALS (9 sets, daily range): BP systolic 135–169; BP diastolic 89–112; PULSE 89; O2SAT 94–98; BMI 28.2
--- OUTSIDE RECORDS SUMMARY | 2024-10-10 21:05 | XMS_ITS | CCD ---
Author Organization [facility] Care Team Providers Care 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 Name Role Phone Arti JACINTO Emeli S [...] Primary Care Provider Derek Burks Attending Provider [phone] Emeli Chi S Primary Care Provider EMELI CHI Primary Care Unavailable REGINA, DR [...] Unavailable ARTI, EMELI S Primary Care Physician [phone] Junior Raygoza Attending Unavailable Ramón Carrizales Attending Unavailable CHIRRI, CHAVEZ Attending Unavailable HANS GRANADO Referring Unavailab le ARTI, EMELI S Primary Care Unavailable CHIRRI, CHAVEZ Admitting Unavailable Arti VENEER MARKER, Emeli S Primary Care Provider Arti JACINTO, Emeli S Primary Care Provider ARTI, EMELI S Primary Care Unavailable DOUG ELLSWORTH Attending Unavailable GIOVANI SANCHEZ Attending Unavailable GIOVANI SANCHEZ Admitting Unavailable ARTI, EMELI S Primary Care Unavailable SHANDRA BERMAN Referring Unavailable RADHA, ANA BIKAT Attending Unavailable ARTI, EMELI S Primary Care Unavailable ARTI, EMELI S Primary Care Unavailable RADHA, ANA BIKAT Attending Unavailable SHANDRA HIGGINS Referring Unavailable ARTI, EMELI S Primary Care Unavailable RADAH, ANA BIKAT Attending Unavailable ARTI, EMELI S Primary Care Unavailable RADHA, ANA BIKAT Attending Unavailable ARTI, EMELI S Primary Care Unavailable RADHA, ANA BIKAT Attending Unavailable ARTI, EMELI S Primary Care Unavailable RADHA, ANA BIKAT Attending Unavailable ARTI, EMELI S Primary Care Unavailable ARTI, EMELI S Primary Care Unavailable AJ, SHANDRA Referring Unavailable LEAH KELLOGG Attending Unavailkaty e LEAH KELLOGG Admitting Unavailabl e ANA GARCIA Attending Unavailable ARTI, EMELI S Primary Care Unavailable RADHAANA Attending Unavailable ARTI, EMELI S Primary Care Unavailable ARTI, EMELI S Primary Care Unavailable ANA GARCIA Attending Unavailable ARTI, EMELI S Primary Care Unavailable DEEP BABB Attending Unavailable ANA GARCIA Attending Unavailable SHANDRA HIGGINS Referring Unavailable ARTI, EMELI S Primary Care Unavailable Medications Current Medications Medication [...] 04/06/19 Status: Ordered take 2 tablets by [facility] twice daily OXcarbazepine (TRILEPTAL) 300 mg [...] Indication of Use: Prophylaxis-DVT/PE polyethylene glycol 3350 61677 mg powder for oral solution (1 source) [...] Active Problems Problem Classification Problem Date Documented Date Episodic/Chronic Alcohol-related disorders (1 source) Nondependent alcohol abuse; Translations: [Alcohol abuse, uncomplicated] Onset: 10-30-2018 02-02-2022 Chronic Anxiety disorders (2 sources) Anxiety; Translations: [Anxiety disorder, unspecified] Onset: 12-30-2023 12-30-2023 Chronic Asthma (2 sources) Asthma 04-10-2017 Chronic Complications of surgical procedures or medical care (1 source) Wound dehiscence; Translations: [Disruption of wound, unspecified, initial encounter] Onset: 03-31-2023 Episodic Epilepsy; convulsions (20 sources) Localization-related cryptogenic epilepsy; Translations: [Localization-relate d (focal) (partial) idiopathic epilepsy and epileptic syndromes [...] in partial remission] Onset: 12-30-2023 04-15-2019 Chronic Mood disorders (3 sources) Mood disorder due to a general medical condition; Translations: [Mood disorder due to known physiological condition, unspecified] Onset: 09-07-2024 09-07-2024 Episodic Other endocrine disorders (2 sources) Male hypogonadism [...] 02-02-2022 Episodic Other aftercare (1 source) 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; Translations: [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 CURRENT DRUG THERAPY] Onset: 06-13-2022 Episodic Other injuries and conditions due to external causes (1 source) Unspecified injury of head, initial encounter; Translations: [UNSPECIFIED INJURY HEAD INITIAL ENC] Onset: 01-02-2022 Episodic Results Test Name Value Interpretation [facility] COREY ALONSO III ([id number]) 1995 M Date Time Provider Department 06/02/24 MINERVA ORTEGA During your visit today, we recorded the following information about you: Minerva Ortega LISW 06/02/2024 4:24 PM Signed FIRER TUNNEL KILN received a consult from provider stating patient told them they cannot afford the PNES workbook, and is looking for assistance with this. FIRER TUNNEL KILN notes patient had initial assessment with Dr. Garcia and is beginning treatment in June 2024. FIRER TUNNEL KILN asked admin to send patient a copy of the workbook after confirming with patient the correct address. Will follow to assure this is sent to patient. Carli Villarreal 06/02/2024 4:38 PM Signed Copy of seizure workbook, mailed to patient home address. Tracking # [id number] Allergies As of Date: 06/02/2024 (No Known [...] Status:Closed by MINERVA ORTEGA on 06/02/24 [facility] MRI BRAIN WO IVCONon 07-22-2 024 MRI BRAIN WO IVCON * * [...] cortical dysplasia, or other neuronal migrational abnormalities. 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 Rail Operator: [facility] Transcribe Date/Time: Feb 18 2024 8:30A Dictated by : VERÓNICA ECHEVARRIA MD This examination was interpreted and the report reviewed and electronically signed by: VERÓNICA ECHEVARRIA MD on Feb 18 2024 8:46AM EST [id number] Normal [facility] Terence 02-06-2024 CNPN Telephone ([facility]) COREY ALONSO III ([id number]) 1995 M Date Time Provider Department 02/06/24 DEEP BABB NE50MN During your visit today, we recorded the following information about you: Emeli Rodriguez 02/06/2024 2:29 PM Signed Medication Concern Person Calling Kimberley Sanders,[facility] Name of medication Lamotrigine Concern with medication Pharmacist needs clarification on SIG for 25mg and 200 mg Patient of Skyla Gupta, JOSE 02/06/2024 3:01 PM Signed [facility] [...] encounter of 02/06/2024 Forwarded to [facility] addison for review/recommendatio JOSE Mercado Ailis, PA-C 02/06/2024 3:53 PM Signed Per [...] is necessary Will await instructions Forwarded to [employer] [facility] JOSE Garcia Ailis, PA-C 02/06/2024 4:36 PM Signed Per pharmacy, 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 She would not recommend weaning down. Instead, hold tonight's dose and restart on correct dose of 250 mg twice daily tomorrow morning. TAYLOR Kate Elizabeth, RN 02/06/2024 5:00 PM Signed Spoke with patient/friend, Yina and provided medication recommendations - they verbalize understanding [employer] message sent per their request Spoke with Kimberley Sanders [facility] pharmacist - advised of LTG dose She requests new prescription for LTG 200 mg tablet Patient will receive corrected packets of LTG on Saturday, 02/09 Forwarded to [employer] for prescription processing JOSE Garcia Ailis, PA-C [...] with patient - he confirms receipt of [employer] message - no present medication concerns - [...] Encounter Status:Closed by SKYLA SANCHEZ on 02/07/24 [facility] Telephone ([facility]) COREY ALONSO III ([id number]) 1995 M Date Time Provider Department 02/06/24 [...] does not drive Forwarded to [employer] [facility] addison for review/recommendatio n JOSE Garcia Ailis, PA-C [...] SANCHEZ on 02/06/24 [facility] 01-31-2024 CNPN Telephone ([facility]50[facility]) COREY ALONSO III ([id number]) 1995 M Date Time Provider Department 01/31/24 DEEP BABB NE50MN During your visit today, we recorded the following information about you: Nehal Jordan 01/31/2024 12:52 PM Signed General call : Full name of person calling: Corey Alonso III Relationship to patient: self Phone # : [phone] (mobile) Reason for call: Patient wants to [...] Encounter Status:Closed by SKYLA SANCHEZ on 01/31/24 Normal [facility] CNOVon 01-29-2024 CNOV Office Visit (NE50MN) COREY ALONSO III ([id number]) 1995 M Date Time Provider Department 01/29/24 3:30 PM DEEP BABB NE50MN During your visit today, we recorded the following information about you: Pulse Blood pressure Weight Height 81/minute 133/82 78.5 kg 1.753 m Deep Babb MD 02/02/2024 10:23 PM Signed [facility] Patient Name: Corey Alonso III Date of : 1995 ESTABLISHED EPILEPSY CLINIC NOTE 01/29/2024 3:30 PM Reason for Visit: Established Patient and Follow Up Clinical Summary: Mr. Alonso is a 28 year old right-handed male seen in [facility]. 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 Normal [facility] [id number] 01-03-2024 [id number] HNO ID: [id number] Author: CARLOS GONZALES RN Service: ? Author Type: Registered Nurse Type: [id number] Filed: 01/03/2024 06:47 Note Text: Patient's sister arrived to take patient home. Night PA in prior to go over discharge with patient. RN went over discharge instructions, returned home medications from lock box and made sure patient had home belongings together. IV removed and opportunity for questions provided. Normal [facility] CNDSon 01-03-2024 CNDS HNO ID: [id number] Author: GIOVANI SANCHEZ MD, PhD Service: Neurology Adult Epilepsy Author Type: Nurse Practitioner Type: Discharge Summary Filed: 01/03/2024 11:23 Note Text: Attestation signed by Giovani Sanchez MD, PhD at 01/03/2024 11:23 AM iGovani Sanchez MD PhD Staff, Epilepsy Center [facility] [place] DISCHARGE SUMMARY PATIENT NAME: Corey Alonso III [...] year old male who presented to the [facility] EMU on 12/30/2023 for diagnosis. Medications [...] Center 01/29/2024 3:30 PM Deep Babb MD [facility] Mn S Bldg 02/17/2024 4:40 PM MRI SKYRA (I-STAT/3T) MRIUMN Mn U Bldg 03/05/2024 10:00 AM Doug Ellsworth, TRADE MARK ATTORNEY.VENEER MARKER NE50[facility]ELIN Mn S Bldg 04/09/2024 9:00 AM Neida Kee, PhD [facility] Please follow up with your Epileptologist. Dr. Deep Babb [address] [place] [address] The patient's risk for 30-day readmission is determined using the following contributing factors: The patient's risk for 30-day readmission is (more content not included)... [facility] SOCIAL WORKon 01-01-2024 SOCIAL WORK HNO ID: [id number] Author: KARLI SANTORO LSW Service: Social Work Author Type: Lead Refiner Type: Social Work Filed: 01/02/2024 09:42 Note [...] regarding out patient CBT program offered through [facility]. Patient agreeable to follow up as an out patient. SW to continue to follow as needed. SIGNATURE: LAUREN Lujan PATIENT NAME: Corey Alonso III DATE: January 01, 2024 TIME: 4:19 PM PAGER/CONTACT #: [phone] [facility] SOCIAL WORKon 12-31-2023 SOCIAL WORK HNO ID: [id number] Author: KARLI SANTORO LSW Service: Social Work Author Type: Lead Refiner Type: Social Work Filed: 01/01/2024 09:44 Note [...] mild developmental delay, he was treated for CONTINUING EDUCATION DIRECTOR infection with initial presentation but patient/family unsure [...] reared by his mother and father in [place]. He has one biological sister. Patient identifies [...] very frustrated by this, and being a first aid officer is his dream job. 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 PSYCHIATRIC HISTORY: Patient [...] voices feeling jealous whenever he sees a first aid officer, because he wonders why they are able [...] time. COLLAT (more content not included)... [facility] 10OH-Carbazepine [facility]2023 10-Hydroxycarbazepine [Mass/Vol] 13.6 ug/mL Normal 3.0-35.0 [facility] Comment on above: Order Comment: Speci men Type: BLOOD SPECIMENOrdering Facility: [facility] Address: [address] [place] [address] Result Comment: This test was developed and its performance characteristics determined by [facility]'s [facility]ology [facility] [place] ([facility]). It has not been cleared or approved by the FDA. [facility] is regulated under CLIA as qualified to perform high-complexity testing. This test is used for clinical purposes. It should not be regarded as investigational or for research. Performed By: #### 6 948-4, 96173-1 ####[facility] [id number] [place] [address] [place] CBC W Auto Differential pane l (Bld)on 12-30-2023 Basophils (Bld) [#/Vol] 0.04 10*3/uL Normal <0.11 [facility] Comment on above: Order Comment: Speci men Type: BLOOD SPECIMEN [facility] Address: [address] [place] [address] Performed By: #### 5 7021-8 #### [facility] CLIA [id number] [address] [place] [address] [place] Basophils/100 WBC (Bld) 0.7 % Normal C [facility] Comment on above: Order Comment: Speci men Type: BLOOD SPECIMEN [facility] Address: [address] [place] [address] Performed By: #### 5 7021-8 #### [facility] CLIA [id number] [address] [place] [address] [place] Differential cell count method Nom (Bld) Auto Normal [facility] Comment on above: Order Comment: Speci men Type: BLOOD SPECIMEN [facility] Address: [address] [place] [address] Performed By: #### 5 7021-8 #### [facility] CLIA [id number] [address] [place] [address] [place] Eosinophils (Bld) [#/Vol] 0.07 10*3/uL Normal <0.46 [facility] Comment on above: Order Comment: Speci men Type: BLOOD SPECIMEN [facility] Address: [address] [place] [address] Performed By: #### 5 7021-8 #### [facility] CLIA [id number] [address] [place] [address] [place] Eosinophils/100 WBC (Bld) 1.3 % Normal [facility] Comment on above: Order Comment: Speci men Type: BLOOD SPECIMEN [facility] Address: [address] [place] [address] Performed By: #### 5 7021-8 #### [facility] CLIA [id number] [address] [place] [address] [place] Erythrocyte distribution width (RBC) [Ratio] 12.3 % Normal 11.5-15.0 [facility] Comment on above: Order Comment: Speci men Type: BLOOD SPECIMEN [facility] Address: [address] [place] [address] Performed By: #### 5 7021-8 #### [facility] CLIA [id number] [address] [place] [address] [place] Hematocrit (Bld) [Volume fraction] 44.7 % Normal 39.0-51.0 [facility] Comment on above: Order Comment: Speci men Type: BLOOD SPECIMEN [facility] Address: [address] [place] [address] Performed By: #### 5 7021-8 #### [facility] CLIA [id number] [address] [place] [address] [place] Hemoglobin (Bld) [Mass/Vol] 15.6 g/dL Normal 13.0-17.0 [facility] Comment on above: Order Comment: Speci men Type: BLOOD SPECIMEN [facility] Address: [address] [place] [address] Performed By: #### 5 7021-8 #### [facility] CLIA [id number] [address] [place] [address] [place] Immature granulocytes (Bld) [#/Vol] 10*3/uL Normal <0.10 [facility] Comment on above: Order Comment: Speci men Type: BLOOD SPECIMEN [facility] Address: [address] [place] [address] Performed By: #### 5 7021-8 #### [facility] CLIA [id number] [address] [place] [address] [place] Immature granulocytes/100 WBC (Bld) 0.4 % Normal [facility] Comment on above: Order Comment: Speci men Type: BLOOD SPECIMEN [facility] Address: [address] [place] [address] Performed By: #### 5 7021-8 #### [facility] CLIA [id number] [address] [place] [address] [place] Lymphocytes (Bld) [#/Vol] 1.97 10*3/uL Normal 1.00-4.0 0 [facility] Comment on above: Order Comment: Speci men Type: BLOOD SPECIMEN [facility] Address: [address] [place] [address] Performed By: #### 5 7021-8 #### [facility] CLIA [id number] [address] [place] [address] [place] Lymphocytes/100 WBC (Bld) 36.1 % Normal [facility] Comment on above: Order Comment: Speci men Type: BLOOD SPECIMEN [facility] Address: [address] [place] [address] Performed By: #### 5 7021-8 #### [facility] CLIA [id number] [address] [place] [address] [place] MCH (RBC) [Entitic mass] 28.6 pg Normal 26.0-34.0 [facility] Comment on above: Order Comment: Speci men Type: BLOOD SPECIMEN [facility] Address: [address] [place] [address] Performed By: #### 5 7021-8 #### [facility] CLIA [id number] [address] [place] [address] [place] MCHC (RBC) [Mass/Vol] 34.9 g/dL Normal 30.5-36.0 [facility] Comment on above: Order Comment: Speci men Type: BLOOD SPECIMEN [facility] Address: [address] [place] [address] Performed By: #### 5 7021-8 #### [facility] CLIA [id number] [address] [place] [address] [place] MCV (RBC) [Entitic vol] 82.0 fL Normal 80.0-100.0 C [facility] Comment on above: Order Comment: Speci men Type: BLOOD SPECIMEN [facility] Address: [address] [place] [address] Performed By: #### 5 7021-8 #### [facility] CLIA [id number] [address] [place] [address] [place] Monocytes (Bld) [#/Vol] 0.40 10*3/uL Normal <0.87 [facility] Comment on above: Order Comment: Speci men Type: BLOOD SPECIMEN [facility] Address: [address] [place] [address] Performed By: #### 5 7021-8 #### [facility] CLIA [id number] [address] [place] [address] [place] Monocytes/100 WBC (Bld) 7.3 % Normal [facility] Comment on above: Order Comment: Speci men Type: BLOOD SPECIMEN [facility] Address: [address] [place] [address] Performed By: #### 5 7021-8 #### [facility] CLIA [id number] [address] [place] [address] [place] Neutrophils (Bld) [#/Vol] 2.96 10*3/uL Normal 1.45-7.5 0 [facility] Comment on above: Order Comment: Speci men Type: BLOOD SPECIMEN [facility] Address: [address] [place] [address] Performed By: #### 5 7021-8 #### [facility] CLIA [id number] [address] [place] [address] [place] Neutrophils/100 WBC (Bld) 54.2 % Normal [facility] Comment on above: Order Comment: Speci men Type: BLOOD SPECIMEN [facility] Address: [address] [place] [address] Performed By: #### 5 7021-8 #### [facility] CLIA [id number] [address] [place] [address] [place] Nucleated RBC (Bld) [#/Vol] 10*3/uL Normal <0.01 [facility] Comment on above: Order Comment: Speci men Type: BLOOD SPECIMEN [facility] Address: [address] [place] [address] Performed By: #### 5 7021-8 #### [facility] CLIA [id number] [address] [place] [address] [place] Nucleated RBC/100 WBC (Bld) [Ratio] 0.0 /100 WBC Normal [facility] Comment on above: Order Comment: Speci men Type: BLOOD SPECIMEN [facility] Address: [address] [place] [address] Performed By: #### 5 7021-8 #### [facility] CLIA [id number] [address] [place] [address] [place] Platelet mean volume (Bld) [Entitic vol] 9.6 fL Normal 9.0-12.7 [facility] Comment on above: Order Comment: Speci men Type: BLOOD SPECIMEN [facility] Address: [address] [place] [address] Performed By: #### 5 7021-8 #### [facility] CLIA [id number] [address] [place] [address] [place] Platelets (Bld) [#/Vol] 187 10*3/uL Normal 150-400 [facility] Comment on above: Order Comment: Speci men Type: BLOOD SPECIMEN [facility] Address: [address] [place] [address] Performed By: #### 5 7021-8 #### [facility] CLIA [id number] [address] [place] [address] [place] RBC (Bld) [#/Vol] 5.45 10*6/uL Normal 4.20-6.00 [facility] Comment on above: Order Comment: Speci men Type: BLOOD SPECIMEN [facility] Address: [address] [place] [address] Performed By: #### 5 7021-8 #### [facility] CLIA [id number] [address] [place] [address] [place] WBC (Bld) [#/Vol] 5.46 10*3/uL Normal 3.70-11.00 [facility] Comment on above: Order Comment: Speci men Type: BLOOD SPECIMEN [facility] Address: [address] [place] [address] Performed By: #### 5 7021-8 #### [facility] GEORGE [id number] [address] [place] [address] [place] CNOVon 12-30-2023 CNOV Office Visit (NE50MN) COREY ALONSO III ([id number]) 1995 M Date Time Provider Department 12/30/23 8:00 AM DEEP BABB NE50MN During your visit today, we recorded the following information about you: Pulse Blood pressure Weight Height 105/minute 148/86 77.1 kg 1.727 m Deep Babb MD 12/30/2023 11:45 PM Signed [facility] [place] [facility] Patient Name: Corey Alonso III Date of : 1995 Referring Provider: Shandra Berman [address] [place] [address] INITIAL EPILEPSY CLINIC NOTE 12/30/2023 8:00 AM CHIEF COMPLAINT: New Patient HISTORY OF PRESENT ILLNESS Mr. Alonso is a 28 year old right-handed male seen in [facility] for initial consultation. 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 Normal [facility] Comprehensive metabolic 2000 panelon 12-30-2023 Albumin [Mass/Vol] 4.3 g/dL Normal 3.9-4.9 [facility] Comment on above: Order Comment: Speci men Type: BLOOD SPECIMENOrdering Facility: [facility] Address: [address] [place] [address] Performed By: #### 1 9123-9, 3016-3, 2777-1, 49293-0 ####[facility] [id number] [place] [address] [place] ALP [Catalytic activity/Vol] 111 U/L Normal 38-113 [facility] Comment on above: Order Comment: Speci men Type: BLOOD SPECIMENOrdering Facility: [facility] Address: [address] [place] [address] Performed By: #### 1 9123-9, 3016-3, 2777-1, 10378-7 ####[facility] [id number] [place] [address] [place] ALT [Catalytic activity/Vol] 14 U/L Normal 10-54 [facility] Comment on above: Order Comment: Speci men Type: BLOOD SPECIMENOrdering Facility: [facility] Address: [address] [place] [address] Performed By: #### 1 9123-9, 3016-3, 2777-1, 00204-4 ####[facility] [id number] [address] [address] [place] Anion gap [Moles/Vol] 12 mmol/L Normal 9-18 [facility] Comment on above: Order Comment: Speci men Type: BLOOD SPECIMENOrdering Facility: [facility] [facility] Address: [address] [place], [place] [address] Performed By: #### 1 9123-9, 3016-3, 2777-1, 67605-3 ####[facility] LABCLIA [id number] [address] [address] [place] AST [Catalytic activity/Vol] 14 U/L Normal 14-40 [facility] Comment on above: Order Comment: Speci men Type: BLOOD SPECIMENOrdering Facility: [facility] Address: [address] [place] [address] Performed By: #### 1 9123-9, 3016-3, 2777-, 43327-5 ####[facility] LABCLIA [id number] [place] [address] [place] Bilirubin [Mass/Vol] 0.3 mg/dL Normal 0.2-1.3 [facility] Comment on above: Order Comment: Speci men Type: BLOOD SPECIMENOrdering Facility: [facility] Address: [address] [place] [address] Performed By: #### 1 9123-9, 3016-3, 2777-, 26696-9 ####[facility] LABCLIA [id number] [address] [address] [place] Calcium [Mass/Vol] 9.7 mg/dL Normal 8.5-10.2 [facility] Comment on above: Order Comment: Speci men Type: BLOOD SPECIMENOrdering Facility: [facility] Address: [address] [place], [place] [address] Performed By: #### 1 9123-9, 3016-3, 2777-1, 08084-6 ####[facility] LABCLIA [id number] [address] [address] [place] Chloride [Moles/Vol] 103 mmol/L Normal 97-105 [facility] Comment on above: Order Comment: Speci men Type: BLOOD SPECIMENOrdering Facility: [facility] Address: [address] [place] [address] Performed By: #### 1 9123-9, 3016-3, 2777-1, 48295-6 ####[facility] LABIA [id number] [place] [address] [place] CO2 [Moles/Vol] 24 mmol/L Normal 22-30 [facility] Comment on above: Order Comment: Speci men Type: BLOOD SPECIMENOrdering Facility: [facility] Address: [address] [place] [address] Performed By: #### 1 9123-9, 3016-3, 2777-1, 63008-0 ####[facility] LABIA [id number] [place] [address] [place] Creatinine [Mass/Vol] 1.04 mg/dL Normal 0.73-1.22 [facility] Comment on above: Order Comment: Speci men Type: BLOOD SPECIMENOrdering Facility: [facility] Address: [address] [place] [address] Performed By: #### 1 9123-9, 3016-3, 2777-1, 47056-8 ####[facility] LABIA [id number] [place] [address] [place] Creatinine and Glomerular filtration rate.predicted panel (S/P/Bld) 101 mL/min/1.73m??? Normal >=60 [facility] Comment on above: Order Comment: Speci men Type: BLOOD SPECIMENOrdering Facility: [facility] Address: [address] [place] [address] Result Comment: Michelle mated Glomerular Filtration Rate [...] accurately reflect actual GFR. Performed By: #### 1 9123-9, 6-3, 2776-, 87721-9 ####[facility] LABCLIA [id number] [address] [address] [place] Glucose [Mass/Vol] 107 mg/dL High 74-99 [facility] Comment on above: Order Comment: Ngoc liu Type: BLOOD SPECIMENOrdering Facility: [facility] Address: [address] [place] [address] Result Comment: The [place] Diabetes Association (ADA) provides guidance for cutoff [...] Standards of Medical Care in Diabetes 2016, [place] [employer] Association. Diabetes Care. 2016.39(Suppl 1). Performed By: #### 1 9123-9, 3015-3, 2776-07, ####[facility] LABCLIA [id number] [address] [address] [place] Potassium [Moles/Vol] 3.9 mmol/L Normal 3.7-5.1 [facility] Comment on above: Order Comment: Ngoc liu Type: BLOOD SPECIMENOrdering Facility: [facility] Address: [address] [place] [address] Performed By: #### 1 9123-9, 3015-3, 2776-, ####[facility] LABCLIA [id number] [address] [address] [place] Protein [Mass/Vol] 6.7 g/dL Normal 6.3-8.0 [facility] Comment on above: Order Comment: Speci men Type: BLOOD SPECIMENOrdering Facility: [facility] Address: [address] [place] [address] Performed By: #### 1 9123-9, 3016-3, 2777-1, 54031-0 ####[facility] LABIA [id number] [place] [address] [place] Sodium [Moles/Vol] 139 mmol/L Normal 136-144 [facility] Comment on above: Order Comment: Speci men Type: BLOOD SPECIMENOrdering Facility: [facility] Address: [address] [place] [address] Performed By: #### 1 9123-9, 3016-3, 2777-1, 84915-7 ####[facility] LABIA [id number] [place] [address] [place] Urea nitrogen [Mass/Vol] 13 mg/dL Normal 9-24 [facility] Comment on above: Order Comment: Speci men Type: BLOOD SPECIMENOrdering Facility: [facility] Address: [address] [place] [address] Performed By: #### 1 9123-9, 3016-3, 2777-1, 63166-2 ####[facility] LABIA [id number] [address] [address] [place] HISTORY PHYSICALon HISTORY PHYSICAL HNO ID: [id number] Author: GIOVANI SANCHEZ MD, PhD Service: Neurology Adult Epilepsy Author Type: Physician Type: H&P Filed: 12/31/2023 12:28 Note Text: NEURO EPILEPSY ADMIT NOTE SERVICE DATE: 12/30/2023 SERVICE TIME: 10:14 AM NIGHT AND WEEKEND COVERAGE: After 5 pm and over the weekends, please page [phone] to contact the epilepsy resident/fellow/prov ider technical applications specialist ATTENDING PHYSICIAN: Dr. 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 Normal [facility] Magnesium SerPl-mCncon 12-29 Magnesium [Mass/Vol] 2.0 mg/dL Normal 1.7-2.3 [facility] Comment on above: Order Comment: Speci men Type: BLOOD SPECIMENOrdering Facility: [facility] Address: [address] [place] [address] Performed By: #### 1 9123-9, 3016-3, 2777-1, 68311-5 ####[facility] LABIA [id number] [place] [address] [place] NURSING PROGon 12-30-2023 NURSING PROG HNO ID: [id number] Author: MICAH PEÑA RN Service: ? Author Type: Registered Nurse Type: Nursing Progress Note Filed: 12/30/2023 12:15 Note Text: Pt admitted to [facility], oriented to room/unit. Safety and sz precautions initiated. Will continue to monitor and provide support. Normal [facility] PT panel Coag (PPP)on 2023 INR Coag (PPP) [Relative time] 1.1 {INR} Normal 0.9-1.3 [facility] Comment on above: Order Comment: Speci men Type: BLOOD SPECIMENOrdering Facility: [facility] Address: [address] [place] [address] Result Comment: Idania min K Antagonist (VKA) Therapeutic Range: INR 2 to 3 (Target INR of 2.5) Note: For patients treated with VKA drugs, such as warfarin, the [place] [employer]icians 2012 Guideline recommends [...] GH, et al. Chest 2012, 141:7S-47S Nickie SALCEDO et al. [facility] 2017, 70: 252-289 Performed By: #### 3 4528-0, 74117-4 ####[facility] LABCLIA [id number] [place] [address] [place] PT Coag (PPP) [Time] 11.4 s Normal 9.7-13.0 [facility] Comment on above: Order Comment: Speci men Type: BLOOD SPECIMENOrdering Facility: [facility] Address: [address] [place] [address] Performed By: #### 3 4528-0, 61828-8 ####[facility] LABCLIA [id number] [place] [address] [place] Phosphate SerPl-mCncon 12-29 Phosphate [Mass/Vol] 4.1 mg/dL Normal 2.7-4.8 [facility] Comment on above: Order Comment: Speci men Type: BLOOD SPECIMENOrdering Facility: [facility] Address: [address] [place] [address] Performed By: #### 1 9123-9, 3016-3, 2777-1, 02169-7 ####[facility] LABCLIA [id number] [place] [address] [place] TOXICOLOGY SCREEN, ROUTINE U RINEon 12-30-2023 Amphetamines Confirm (U) [Mass/Vol] Negative Normal Negative [facility] Comment on above: Order Comment: Speci men Type: URINE SPECIMENOrdering Facility: [facility] Address: [address] [place] [address] Result Comment: Cuto ff threshold at 1000 ng/mL. Performed By: #### U TOX2 ####[facility] LABCLIA [id number] [place] [address] [place] BARBITURATES, URINE Negative Normal Negative [facility] Comment on above: Order Comment: Speci men Type: URINE SPECIMENOrdering Facility: [facility] Address: [address] [place] [address] Result Comment: Cuto ff threshold at 200 ng/mL. Performed By: #### U TOX2 ####[facility] LABCLIA [id number] [place] [address] [place] BENZODIAZEPINES, UR Negative Normal Negative [facility] Comment on above: Order Comment: Speci men Type: URINE SPECIMENOrdering Facility: [facility] Address: [address] [place] [address] Result Comment: Cuto ff threshold at 200 ng/mL. Performed By: #### U TOX2 ####[facility] LABCLIA [id number] [place] [address] [place] Cannabinoids Screen Ql (U) Negative Normal Negative [facility] Comment on above: Order Comment: Speci men Type: URINE SPECIMENOrdering Facility: [facility] Address: [address] [place] [address] Result Comment: Cuto ff threshold at 50 ng/mL. Performed By: #### U TOX2 ####[facility] LABCLIA [id number] [place] [address] [place] Cocaine Ql (U) Negative Normal Negative [facility] Comment on above: Order Comment: Speci men Type: URINE SPECIMENOrdering Facility: [facility] Address: [address] [place] [address] Result Comment: Cuto ff threshold at 300 ng/mL. Performed By: #### U TOX2 ####[facility] LABIA [id number] [place] [address] [place] Ethanol (U) [Mass/Vol] <11 Normal <11 [facility] Comment on above: Order Comment: Speci men Type: URINE SPECIMENOrdering Facility: [facility] Address: [address] [place] [address] Performed By: #### U TOX2 ####[facility] LABCLIA [id number] [place] [address] [place] Opiates Screen Ql (U) Negative Normal Negative [facility] Comment on above: Order Comment: Speci men Type: URINE SPECIMENOrdering Facility: [facility] Address: [address] [place] [address] Result Comment: Cuto ff threshold at 300 ng/mL. Performed By: #### U TOX2 ####[facility] [id number] [place] [address] [place] oxyCODONE cutoff Screen (U) [Mass/Vol] Negative Normal Negative [facility] Comment on above: Order Comment: Speci men Type: URINE SPECIMENOrdering Facility: [facility] Address: [address] [place] [address] Result Comment: Cuto ff threshold at 100 ng/mL. Performed By: #### U TOX2 ####[facility] [id number] [place] [address] [place] Phencyclidine Ql (U) Positive Abnormal Negative [facility] Comment on above: Order Comment: Speci men Type: URINE SPECIMENOrdering Facility: [facility] Address: [address] [place] [address] Result Comment: Cuto ff threshold at 25 ng/mL. Performed By: #### U TOX2 ####[facility] [id number] [place] [address] [place] TSH SerPl-aCncon 12-30-2023 TSH Qn 1.600 m[IU]/L Normal 0.270-4.200 [facility] Comment on above: Order Comment: Speci men Type: BLOOD SPECIMENOrdering Facility: [facility] Address: [address] [place] [address] Performed By: #### 1 9123-9, 3016-3, 2777-1, 36983-4 ####[facility] [id number] [place] [address] [place] aPTT PPPon 12-30-2023 aPTT Coag (PPP) [Time] 31.1 s Normal 23.0-32.4 [facility] Comment on above: Order Comment: Speci men Type: BLOOD SPECIMENOrdering Facility: [facility] Address: [address] [place] [address] Performed By: #### 3 4528-0, 45905-4 ####[facility] LABIA [id number] [place] [address] [place] lamoTRIgine SerPl-mCncon lamoTRIgine [Mass/Vol] 7.6 ug/mL Normal 1.0-13.0 [facility] Comment on above: Order Comment: Speci men Type: BLOOD SPECIMENOrdering Facility: [facility] Address: [address] [place] [address] Result Comment: This test was developed and its performance characteristics determined by [facility]'s [facility] Pathology and Laboratory Medicine [place] ([facility] It has not been cleared or approved by the FDA. -[facility] is regulated under CLIA as qualified to perform high-complexity testing. This test is used for clinical purposes. It should not be regarded as investigational or for research. Performed By: #### 6 948-4, 54325-3 ####[facility] LABIA [id number] [place] [address] [place] CNCONon 11-12-2023 CNCON Consults (NE50MN) COREY ALONSO III ([id number]) 1995 M Date Time Provider Department 11/12/23 KELLY SANDOVAL50EVELIN During your visit today, we recorded the following information about you: Shandra Berman APRN.VENEER MARKER 11/13/2023 8:26 AM Signed [facility] Review of Records Patient: Corey Alonso III Address: [address] [place] [address] Impression: Review of records for Corey Alonso [...] Levetiracetam PMH: asthma, anxiety, depression PRIOR EVALUATIONS: [facility] [address] [place] [address] EEG ([facility], 11/28/2021): Normal EEG with no focal slowing or epileptiform activity. VEEG ([facility], 08/07/2022): During this day of recording no events were recorded. The interictal EEG was normal. Monitoring was continued in order to record the patient's typical events. (Only one day of monitoring was recorded) MRI brain wo contrast ([facility], 11/28/2021): Motion artifact mildly degrades the images. No acute brain parenchymal abnormality KALIA Recommendations: - Admit to EMU for VEEG monitoring, diagnostic evaluation Location: Main [place] - Visit with Dr. Greenberg prior to admission - Additional testing to be considered by epilepsy clinicians Signed: Shandra Berman APRN.VENEER MARKER November 12, [address] Sandoval for review and recommendations. MD Recommendations (as discussed with Dr. Sandoval): - Please proceed with the above plan. ===== Please route this encounter to the EMU Scheduling Pool ( P EMU ) or PMU Scheduling Pool ( P PMU ) through LOS AND Follow up ===== PHASE 1.0 AND 1.5 ORDER SYNOPSIS Patient: Corey Alonso III ([id number]) Best contact number: [phone] Insurance: Payor: [place] / Plan: [facility] MEDICAID / Product Type: Medicaid / Scheduling Team: Please call for adult patients: Tigist Ruano ([phone]) Sarah oSlo ([phone]) Omega Ramos ([phone]) Ivory Wan([phone]) Eulalia Mittal([phone] ) Please call for pediatric patients: Ivory Wan ([phone]) Tigist Ruano ([phone]) Sarah Solo ([phone]) Omega Ramos ([phone]),Luther Mittal([phone] ) 11/13/2023 -- Admission Type EMU Adult Number of Days requested [address] [place] [address] Admit Priority Routine 11/13/2023 PURPOSE Patient Being [...] Diagnosis:Seizure (HCC) [R56.9] Order(s):EPIL EEG LEAD PLACEMENT [[id number]] Order #: [id number]: 1 FUTURE EPIL VEEG ADMIT TO EMU/PMU [[id number]] Order #: [id number]: 1 Prescriptions as of 11/13/2023 - OXcarbazepine (TRILEPTAL) 300 mg tablet Take 300 mg by mouth twice daily. - lamoTRIgine (LAMICTAL) 200 mg tablet Take 200 mg by mouth once daily. Problem List As Of (more content not included)... Normal [facility] CNPNon 11-12-2023 CNPN Telephone (NE50MN) COREY ALONSO III ([id number]) 1995 Date Time Provider Department 11/12/23 SUSANA, MERRY NE50MN During your visit today, we recorded the following information about you: AlfonsoPatrician 11/12/2023 3:01 PM Signed [facility] Initial Intake Interview November 12, 2023 2:53 PM Caller: Corey Relationship to pt: Self ===== Patient name: Corey Alonso III Age: [age] year old Address: [address] [place] [address] (home) Insurance: Payor: [place] / Plan: [facility] MEDICA[facility] / Product Type: Medicaid / Referred by: Self (word of mouth) Referring to: Dr. Greenberg Reason for Evaluation: further evaluation and treatment Previously evaluated at: [facility] [address] [place] [address] Fax: N/A ===== Age AND date of [...] or No Date Facility EEG Yes 2021 [facility] Video EEG Yes 2021 [facility] MRI brain Yes [address] [facility] [address] brain No fMRI brain No PET [...] Signed: Eulalia Ny 11/12/2023 3:01 PM Signed OS imaging/records received: November 12, 2023 -Consult Notes [...] Status:Closed by EULALIA MITTAL on 11/12/23 Normal [facility] Consent for Treatmenton 09-0 Consent for Treatment [id number] 30 [id number] #1.00CD:127 Normal [facility] Discharge Instructionson Discharge Instructions [id number] 1#1.00CD:127 Normal [facility] ED Clinical Summaryon 2022 ED Clinical Summary [place] [id number] ED Clinical Summary Person Information Name: GAVIN GODFREYCOREY [facility] Age: 27 Years : 1995 Sex: Male Language: Greenlandic PCP: [facility] CNP Marital Status: Phone: [phone] Visit Id: Visit Reason: Wound reevaluation with [...] 03/31/2023 17:04:18 03/31/2023 17:04:18 03/31/2023 17:04:18 ADDRESS: [address] [place] [phone] PHYS DOC NOTES: MEDICAL INFORMATION: Prescriptions Given: Medications to Continue with No Changes Other Medications lamotrigine (lamotrigine 100 mg oral tablet) 2 times a day. oxcarbazepine (Trileptal) By Mouth 2 times a day. PATIENT EDUCATION INFORMATION: Instructions: Wound Dehiscence Follow up: With: Address: When: [facility] [address] [facility] [place] [phone] Business (1) In 3 days 04/03/2023 Comments: [...] sutures are removed. DIAGNOSIS: Wound dehiscence Normal [facility] ED Note-Physicianon 03-31-20 ED Note-Physician Basic Information Time Seen: Ramón Carrizales DO 03/31/2023 16:48 Chief Complaint Had stitches at [place] 2 days ago on L thumb. States [...] In 3 days 04/03/2023 EDT [address] [place] [phone] Business (1) Additional Instructions: Call the office [...] Diagnostic Results No qualifying data available. Normal [facility] Comment on above: Result Comment: Elec tronically [...] these instructions at home: Medicines ? Take qrtq-phd-sqlrckx and prescription medicines only as told by [...] and water are not available, use hand punchboard assembler. ? Gently wash the wound area with [...] Revised: 12 (more content not included)... Normal [facility] ED Patient Summaryon 023 ED Patient Summary [address] [address] Patient Discharge Instructions Person Information Name: COREY ALONSO III Age: 27 Years Arrival Date: 03/31/2023 16:41:41 Discharge Diagnosis: Wound dehiscence Primary Care Physician: [facility] CNP Provider Information Primary Provider: Ramón Carrizales DO Advanced Epidemiologist:None The exam and treatment you received in the Emergency Department were for an urgent problem and are not intended as complete care. It is important that you follow up with a doctor, nurse practitioner, or physician?s certified surgical tech/first assistant for ongoing care. If your symptoms [...] [facility] [address] [facility] [place] [phone] Business (1) In 3 days 04/03/2023 Comments: [...] opioids can be used to help relieve yswiaewc-xi-fsbsex pain and are often prescribed following a [...] ? Stor (more content not included)... Normal [facility] EMS Documentationon 10-10-19 23 EMS Documentation Please click on link to see report pdfCD:[id number] [id number] cASX8HaQfJPHyAXY6SpH wIFIgMiAw XBOoIEQ0JVIlAQQjIIL2 VBYpCEXtX3Gkz8MVo2tc BB9jRAJlNHO8WKAwDSH3 ZPHtJQ5mD3LjiOHs MTAwNCAwIFIvSUQgMTAw XHNaXMUtHDUdcLXFr0xa FQ2pFUFeXDV9JEMoYAJ3 OAZrLM1kTWifPV5u F5DslxHueOT8NjLyOKDJ I2Ovv576cvYmpet4K5Hl uJ3xF3EuI2S6BE5JPeJb QNi3JFObVp5+L0Zv gjL0XI6ZHHZuEGigTHHs Cb1ZPFUiKUc3SMShRd1B EGZgSJitWEAvOf9RLDDf CAFtEDGFL0HSPUGx NSAwIFI+Cv5Drs6pR9H3 Qx5DDNPdQSK6lB3oAQj5 I0K1INErTQAgIRLfFTKU P7lJDsedX4HmLFC8 NiAwIFI+Go4Bz9SzuPNw IM9DeQL2W3BNPEPjxrFk BRDuS5K5iKGvASNfZN3S IUQaF0F+PgplbmRv DxfHFxUwCV7vpeb7LH1T NF3feTaqJxZ2HIP+PnN0 mxKuyRbgB0CwNRTdRLOz DGPdxlgtCDF7VJLj EQjlWeb0OJ06VZVnnxAW DwczCLCeQ60KJIGjUaz4 FPA2TiXhTO49KHNoQCyy VkYrUUB7TB7sTGTb Bch5UWNwJio6IGJxBcUP OMj3HrF6OBC4WX6xPNRl Bwt4JIUpKyy2XOPqWoUE AVQyZfl9XrG9SWU2 GwWkHD00XQKjMCulDvDf XXJ3LLF0VwImGXElNlZb goBGVrxiQTL6QTMvOkQg KS82UGPiSRGiqrQW Lgb4ILUxTePoLrn8NkB2 SVIzSkBmOBO4UYTiVqLN DI80NFdtLKAgvqgsZH34 QSJ3DORoWFWfBUdg MjUgLTEyIHJlCmYKMCAg z9RbNxQrOvu2VPZ6Vt1m NSAyODcuMjUgLTAuNzUg cmUKZgowLjkxOCAg w0ZqDkL7WYL7CFAwHQLn ODcuMjUgLTEyIHJlCmYK YSHkl6KyQgJ3ARJ8WPUp UiOeFhk8ZfH6VC6t Cxi8PFSjZxVPYJLgNcLw ZtG4MIR8ZqHqMO91BICv LNzqJnVwETT9WD43OXT2 KoNrRE89QVNuTGea RvHaLZA8PT9zBKJeHul9 TQ18DL52TEYhXcDWSVt9 MqZ7HSE3ZN8eFDIiRbn8 OA57PE72CNGvEoFF SJ05OZzxODSfpbmzMM46 BRW4FUngKEG1LlIwADCy MHYzarWDJjgbEIKvU38A VJAhTnOpCyM3GcP7 YYO5DG60LV8lFyp8BWRt XwPQIQX3LsHtCyR1PSJd Tp9sYRLkZG93PUGwHJxn ZnN3Nf29XCC0DW4b NSAxMTYuMjUgLTAuNzUg efSRLgo6ZaijXZE9UoWm BR90XDQhNIEsJEYrWXzf BpR5SvO8MyXpSI28 NSAtNTUuNSByZQpmCjAu AUT1STDiV17SAJT2SlZ6 YDIcER6iFXOyQBTdRyYf LTEyIHJlCmYKMCAg y9IlMwP2CP2bKOJ3IcYx GWG2Qxy4QJ7zBye5RPUq EtRCVKGqDEcsTzm0TIF7 OqOhXT97XZMaNAls WgZjJCInKwU1KkRxPTUj JeUcuyFNIjidUWV2UqLf UxJgLQ03DNSwLsPuKBUg GYccYiY2JD0qGCD2 OlUyBcYlUA71KLUlGqGe RPRqNSusIaOcFYK4EDHj Q05DSTTyPlFiIOyuEHL1 RS02UN5lBkTeKYrp YeFvOFOmetbpVQ68SXR9 VFeoQsPmMOh7WcYoGZCk IdRaykDJMyxzLBT8Psqn SiKiXBf0PP5jTto4 IHJlCmYKMTAgNDUzIDU3 DlMlKJ80IXQkIBddUxMj GBGmJw1jVLAoHqn7GL83 ZQQfXRpzFdN3CL5o XPY2GkkxQqGaDL20XSVb NzUgcmUKZgowLjkxOCAg w7MbFkNfByz3ZBFiHc08 HUH7FL78SN3zIcYu OAvxMjNhHZGhobwhAF72 ATQ8VDScVeAoHJr2OaIc LTAuNzUgcmUKZgoxMCA0 LaRwWND3PrKiKXIt NzUgcmUKZgoxMCAzODcu PkYoXBx6BW5sXnx2IFUt EaFTSOLrNGLtLqZbMY49 NSAtNDYuNSByZQpm JiM3FP9uYUD2SdSlIOAe Kgg8HK96Tj69AWUtNzDC DB48GMjaTYOxajuyAQ26 MDW8JnLeAfIwCMb2 LjUgLTEyIHJlCmYKMCAg u4UuFtJsXpm0KEOaVL24 UUY6BP44FU4pNlu7NBCn NxMIKX50NOykJQNq bgoxNiAzNzcuMjUgNTYz VgS8BL7aGM85VVVuNsKQ DERpa4ZmXoC9YQA7Kv63 PRXtMe08NADjBjLd NzUgcmUKZgowLjkxOCAg t5YuHjA1HWU3Hz65GMDo Uv97ALVmCeCoXmXtbtMX RjlzFIJsU70QHLWn NsNsUbA6Eqj2MGI8JrCm LTEwLjUgcmUKZgowLjkx SBHwj5UsHeXxBnr8LIT5 Ja18NYI4SR69DK7z DF22IOShNtCANYXla1Pp FfXaTA0jAIQqBqStOeHy MjAuMjUgLTEwLjUgcmUK GnliBbkqQZTzt6Tk UtSdML8pSLHtMkNeBxBe MjAuMjUgLTEwLjUgcmUK BwzaTRVjM94TTJPkWjWt KbQ5Yav4HMJ6DbSh LTEwLjUgcmUKZgowLjkx NYClb6TsLlZsLR90RTH3 Gv29KGH2YT92OT2aIR16 PECoQjEXDREuu6Js KrX0BWCxZbFaZiUmIemn NSAtMTAuNSByZQpmCjAu JPR6FOZuX82RSNwcHDO9 Rq33MYTxEO84XM1t YF43REAfYyLFMYVow4Gw IhFsYO50APY8Wk67KXX0 MiAtMTAuNSByZQpmCjAu ZCS2PWQfG13YBnK6 XcGaTrD1Uqv6CJIrOU1r SK61RFFjQjUTANYcy0Hp VhM7QD85YQF8Nq40DLGr EB31IV0wAZ81WNRr LrVNOW81IQbxCMDadyaz NTEuNSAzNjYuNzUgMjUu NSAtMTAuNSByZQpmCjEg IHNjbgoyNzcgMzY2 Bgh2GTHdDv0mOCWxXDOe UZSqTPpoAmPuAIG4PGEu E81ACkj3CSC1Iy45XRJs MTYuMjUgLTEwLjUg mlZPPoztGEWgN12OJxuw XqQ1ZPO1Pf82ZBMdIE47 AL1xHR79NAYsXnWCZK27 MTggIHNjbgozOTMu SpHrYaM3Njl4ETZ9UjIl LTEwLjUgcmUKZgoxICBz N76GUBAaFlp0NRO8Dn72 TRW8FxLjLQMtFCZn WYraQuVuNVJ3TTPlW21G LKJdVbb4ESE9Hg54RJH6 MyAtMTAuNSByZQpmCjEg NPRxsxk5GTNmRyBn YhD2Ytk6RWX2PiJgUTAb LjUgcmUKZgowLjkxOCAg o7MyShD8ER52DQKmUuLu NzUgMjguNSAtMTAu NSByZQpmCjEgIHNjbgo1 WTRzVfGeScA9Lvi9GVVt LjUgLTEwLjUgcmUKZgow LpwzGJGbf3RiQcOv Hj3hRLPpAuOaQyHrLyHd NSAtMTAuNSByZQpmCjEg SJDpylk5SUXgHeOrDvK9 Ked5YGL7ExWyCSJd LjUgcmUKZgowLjkxOCAg v4TeSbF8YB29TMQrXrNc NzUgMjUuNSAtMTAuNSBy ZQpmCjEgIHNjbgo1 BrXgSvMiXyB6Vkj0NZbg LTEwLjUgcmUKZgowLjkx QMPzm8KdHqE1NM9qGIPo NjYuNzUgOSAtMTAu NSByZQpmCjEgIHNjbgo1 Vp57POXcPSHyUyApLJjd NSAtMjAuMjUgcmUKZgow OvypNWHrz4McEjZq Ohu9WRO4Vx4mTSJ2HA94 WD8rAQ0eLEFsCPedYsHz IHNjbgoxMTEuMjUgMzU2 DlA3DZNzFlX3JS7j VJ0sTSVhOBwnIiZdMZA7 FIJuK23UMTLiDmQ9VBW4 Qn0mFZYwWM5hSGCaQrDl MjUgcmUKZgoxICBz Q15UGUXqJxMyWqV1XnE2 HPL5KrZwBPTxEaV1VJMd TcSRDR43QMjeFPJqjibo MzEuNSAzNTYuMjUg NDkuNSAtMjAuMjUgcmUK CertTZFnG09CHPltHTX7 Ke1eOCHmQP15NF7xWF2g NSByZQpmCjAuOTE4 JLPoE54QXMroAHF6Eh4o IYLmCL07UG3gLD1gGGOg ZQpmCjEgIHNjbgoyMDku NSAzNTYuMjUgNDIg IYBkAmL1ULJyBaDFYU98 MTggIHNjbgoyMDkuNSAz NTYuMjUgNDIgLTIwLjI1 MDQwGtTXTTPlc9Qs VrF2KC39TRQ8Py8kIALy QP86OZ4kYC0xPUSdKPqs MgHtMFV3ODOnQ85ZQvQa YyGjEtI8RcM8CRH2 XaZzQDMhXoL9XICzNcVR TDJow7UkLdQ3KpFlFSBo UvEjFFE7UtK1EK6uIN9p NSByZQpmCjAuOTE4 QSYqD64LGga3NTC5Lp9t NSAxMTYuMjUgLTIwLjI1 ICYkTdHXIQEnt4DuUqM9 Rk6zYSHfLCEhEqZn MjguNSAtMjAuMjUgcmUK KbshCphkZYFlq0WgQpI0 Ea1nTKMzFTBnCeLmFkie NSAtMjAuMjUgcmUK SzuiUFKoS23DWXQlOqz0 AAX3Pp2uNXQ4TE40UK9p MN6pYOSiYWtbOiNsMQD3 WWAaK43OPYQuRhh8 BZE7Li7vEKZ7TL11DI1u ZT6zWGYhGMdrFkUsQLGx ahg3MJKxYqEvExY3IaS7 YGT4UJ1tKV6rODGs LGilFlQeNWT8TZOxG33C UVWeLzF3WXY4Oq8aOIW1 NiAtMjAuMjUg (more content not included)... Normal [facility] EMS Documentationon 10-09-19 23 EMS Documentation Please click on link to see report pdfCD:[id number] xLjQNCiX5+prnDQolQUJ YdLGlLCSpVyE6JHrvJbC nSJ3hti8MWLyBY2AyTAK gTED7Js9U GOwjASg5WHSmQY7NX3eb XGlrITT2Lq6FeI4kDEPt yhAcUFDIV87aRlltHiVw NQovVCAxODAzNDgK Cg3wFQKfYNWlCOXqCYKr ICAgICAgICAgICAgICAg ICAgICAgICAgICAgICAg ICAgICAgICAgICAg ICAgICAgICAgICAgICAg ICAgICAgDQplbmRvYmoN Pb5RxDFeAo6JPeYzWmKV CjAwMDAwMDAwMzIg PVFkHXWeau5GBSVuZOVx FGO2CSLwEPNyZZYiNHvk HNMqEQCaUGk2RRGuYLRr OW8LDiCgSCRsLVH1 TNOxPPPhVAZdbq0ZLXYe MDAwMTkzNSAwMDAwMCBu PRmbSAAzBFCnNEy8LTWs RUKdVX9JLzNiLSAi BANjRyPtFOJvPHCtxo7J MDAwMDAwMjMxNiAwMDAw MCBuDQowMDAwMDAyNDAw ISZiSUNiXE5SBxFk TJEqTKO3ZGfcEPNpZIFq gt1CHFMwVFNjKdnpFFIz MDAwMCBuDQowMDAwMDAz LYD7BBVfGXSmST8N MuDvXIZdZXQ7BMAzGRBx QCWcoj0LTVEfTNQiQfR5 OCAwMDAwMCBuDQowMDAw SIHzHAY9OOSjYXRp AE2UJuQlJKEwENBpNVFh XGAvZWTbxt1JCQUwLHSa NDQzOSAwMDAwMCBuDQow BJFxLBW0VaOvANZx JLKwGV5MTiHbFXCnCJR9 YAboYJMoYRKlkf8OMAVr MDAwNTExMSAwMDAwMCBu PCfnYGTtRIK4LYMz CKAuMLPeWW3HRvRyZCCm QII9IvdhCEOzOEBujv3T MDAwMDAwOTYzOCAwMDAw MCBuDQowMDAwMDUw PrN2MNRoVFNjGV1BRbBr MDAwODgyNDYgMDAwMDAg ms4UnFDvyEvsqi5WBNuE E8iQPGg8RHyDYesl OMOaLkJ7ChMqEJiiMGHv KMS1SiY1OwIERJH+Cjwz VtUICYC3MhMUDDJfOGA8 TmrlBEFQUTIRD9G9 HOKACI6yZu2MqgM9YQB7 HGZsZsmpUf7ecXHaLaYs HKQOU4DmasJaHRqDI4Uo iYGiOWGqB5XAWVI1 Np57SdajqSgCHLY7QCTR HSahRZ2WZnjXIuWhDVki Gl92X7JXw1H3DiKqY5TD qFmNglDLZUscY2jK tIH9w4fhaTtBbSSWiBkx OGdJcndPalFSQUlqUHNX lF87nkaGK2KsQDt4Y3LY Fz5DPFftGuUaiF7N bUljHIN0wI1yYSWOZBfF GyifXC1YKLZJLHf7FYz+ PiAgICAgICAgICAgICAg ICAgICAgICAgICAg ICAgICAgICAgICAgICAg ICAgICAgICAgICAgICAg ICAgICAgICAgICAgICAg ICAgICAgICAgICAg ICAgICAgICAgICAgICAg ICAgICAgICAgICAgICAg ICAgICAgICAgICAgICAg ICAgICAgICAgICAg ICAgICAgICAgICAgICAg ICAgICAgICAgICAgICAg ICAgICAgICAgICAgICAg ICAgICAgICAgICAg ICAgICAgICAgICAgICAg ICAgICAgICAgICAgICAg ICAgICAgICAgICAgICAg ICAgICAgICAgICAg ICAgICAgICAgICAgICAg ICAgICAgICAgICAgICAg ICAgICAgICAgICAgICAg ICAgICAgICAgICAg ICAgICAgICAgICAgICAg ICAgICAgICAgICAgICAg ICAgICAgICAgICAgICAg ICAgICAgICAgICAg ICAgICAgICAgICAgICAg ICAgICAgICAgICAgICAg ICAgICAgICAgICAgICAg ICAgICAgICAgICAg OJ6Yl8PlgwG6tbWnYCbm DRakEWLLHy7KRNdvLeVb EB6axt6HMFdCV68nkTZx YXRhIDIxIDAgUgov C8LmmdDpzMjbjfKcFbQx IWUMAn9HxGUGOVioQ7S2 aZxaVFZoEHtjLQGTIf6G HKjjWO5gLRQeOATw Og4kUMxyJYYkNGYbSzMt XBVDIr7EePHdAS4EWUSm xS4vRt8+DQplbmRvYmoN Kt6JJgMmHYSeFyeL Vpp6Mm3VxOq3RJPwO2Mj CWLdINKnm7WiYn1KPY1i vVodTVT6Cr9WRQj6Qh6+ CBegjNNgUW2BHeoo G5YeZVZmVEYzQKIiCK2V IuFAAQpTgGwhIOYCizKu C2Rg+RwIoV2lnSoMcPVO GMPy9UVPNkKa38Bq DlUEoouA+SPOMtEe5u+k h3X1STKxYAQ5uUIMAY0U 4wnGxz2ROn1RR4V0ZnvS UKNQEBpSgZ5TYJsG E/CTKqNuSJN9lsVqxN9P AA5hm3MjEHeFRlE3OHMz s3ZvGTd2OFfkH08otIEm rJQbGeLiVEFnFy1O E59aPMasVf59DQffXPSh BzLiUMx6Oi0MS2UkbuXw hAAaBWRtZWIKB4Zac734 kqJxejX7ZFaeFY6f utVjtZT9HItpNKGwClLp MjYgMCBSCj4+Cj4+Ci9U xMQdMA7EKVwuCa1+DQpl obHrGndCFb1MSkZr XBWfDzaBQuc6Nt5WQl60 NSnbWPTpMjRlQOv2Cm5H M0LpgVNduqNxRmfngPVL OSGmMRADC1mhsvw2 rDW6NyinZxDtn0MiP2Jq HIf9Yt3ZB3CpHTU7QCh5 Ds7QVSImVhL6SfMiEJAW Pr3RMc8DJ2V4MiU5 oQToI3Logj9XX7R7sFCt O1qUUtewS3MIFn8CNmR0 cxSzoA0TvGgeskWcChTl MjRQMFUwtTRSMLcw QiaP9uNFE0pk8CRWz0Iq AqTKKINDGXhd8JmRcLV6 c6nQ3zByBssOdAKpegbD q2aBwB0WN1lC7S5W EI0tw4AsWBYhTXmxxeVa BhzTLy9ZHmfyTGBhFdxC Tuk1Vm9FGWKnAn1fjIMj Cm5SJZJtWr3KPcCr Of4QFdJwCu6ETyEeUy2H YJU1Pn4XTVR4joNdVy7m YSAxCj4+DQplbmRvYmoN Ie0OWyspBWDfEtlZ Hxm4Do5TBVVbKh0lhTHi Bl6nRTKzLr3+DQplbmRv NggUWk4SVfswPZVjIkvI Tsy6Kc4TXHEjMq1e cGWfSb2OUYRjOd5IWzRp Ya7HPzRrJe7NFcWvSu8X QQK9Mh4AIFQ8nmKaMt9b YSAxCj4+DQplbmRv YadDDr6PHiTmVNQvJlzJ Ddq8Gz8UQJJeBn3vmMTg GW2BWQZPY9WiyUOmPCTA CIfQLa7Pl4oySTBZ M1Pkd7DrveDvdvQYl568 tvMqMuTjYLUMMBdiGU4u a6DbwgulY2eeLA60yAI2 ZOcBV4X8KnT2lYSt A3G9rPVnVj6Iu4HjyMOr FFVcKpLiBYBYKy0EnGYc SW2Wu377Xz1+DQplbmRv AlnWPc9SMoXxSBGw GdtNVzp0Jj8BIXBxMf3p eEWoKW0TUGQFB3YyhFZp ACWCDFnPAu0Hz9vsEGRW X3JISDQ8o9GyaHpn Zn1nVEgBX24gPEPzwJ7x MMlZISYdeCp8fAyVO7Rw R0oqjDE3YIkFAV3yRHwP L4N0nLAnWM4vnxGo MAo+WzspG8kUTP1BQTZH PWEwN7lyCY97rEB9Eg3E SyBuPg1Ei213BSHdF5Ob cHRvciAzMiAwIFIK J0B9KjP1iEEwW3MHGXUz bnRUeXBlMgovVHlwZSAv Sm5nxWtaQaHpSQN8JwY4 HFOjDRj8XnAzXt1+ QPezwzUcJjdYVw8BLrFx TJSbAhjTExg2Fr9Mt2Tk nkRfTNRtOgBpBDFpVm0E YXBIZWlnaHQgNTkx Kgm0Qcw9Jn2LJFBdZK11 REOvGY6bVUP7QckhHnqt C1UaEoHNQ8ZlzwNUPf17 VPntDUbaCii5UWHw NO52EIZdSDD5OcZmOdUu EpQ4UIY1KVFcSlAiEYsl LJVcEq0Yh822NzbxDRFs DASaHVUKHo9Yd212 DeOsJRJzXA8NPQCFM7Vd cYLlFLBHODcFNv6Kd7bq QPZTK4p5WXwoN3CzN3yo OIPVY7C8BL2AFRu4 MiN0EDz5Yg0EgFOzII3D f554MHBjH5QowSMxvml+ Yp4EAR6ee6PeWFtRQuLn UDTve3XxIRf6KCwr MytfxXGtPG8NzFC3MMYw L31fTRxeKPCyM6RcZGS5 OQo+Xx0Qf9RoQCMxVXi4 uI8Eo6mBZNT43oi4 TA/O7bkthUxDk4KRaCJ9 P1LY54DKy9RAB/77yrtu NrDNVtGzTlgoFTLr8ywV r5y0txI905WKShFx pmK9O3jjNTtwwjDuJF8q 3IoFLMVaHN3J7jCdDlnX m02Wtqjh+F6vjk2gJNZl VOemyeg5NAWOD7R2 QrZM0LfqezBO+tDppbWv 3MA6Ynh+VqGu/bIPnrvi p5ZCW7HaGITWNWJaIkgY OSUJKdaFL0xrSwLB /fls7Un5+u29PGxXFJQn SkQHQimiJEGUUqfNc/zr cH/tRHDeMF9D7RZVKfhA R3cIJsufglDdC/TK icgKyZQkKdnzJyQzsuc0 6xMmeF1jTJ/JNitNtwaw KzvSsrfoN4JiGuPDOFqj 7DIxJ0tGnW3/mRia 4T6VXZ1ob4RkISJcQZsn voFoIwcSLq2NPlCvQELn FtiVArl7Uf3HJBRfIf1b tSXhHhZUYMYGN7Bk eNFpCZEXXPqHW46SBc0O GHLtDD9vLS25Tq0gfFQd UnE9KMHjJq9MG7SeA77u mN0pTL8LCAWkpCr3 fF3GGt0BiUZ2lOIeCI1E uNRtHSbvOB1Btqbpj2Od HRO2JYDeTbzn (more content not included)... Normal [facility] Coding Summary.on 10-03-2022 Coding Summary. CD:[id number]:[id number] Gh0bWw+PGhlYWQ+PE1FV VKgI55eiDPsgU8kX0FAY ElOSywgQVBQTElOSyIgb fGhYG3boAJbCLUm IC8+QH8vWRGeZjsmaWSb l6O5rLH6I58igb8tHVtg hDQ5ZQVvNbLfvuams7ys tZw7PKeyNvaiWgZa FKOokI04AUY8sG44Kj80 zOFliWCtv4nhfRq2EiSo FTFiXWV7eNfrJJzdq7Ek FPLxD45yfCSaz4X8 IGNvbGxhcHNlOyBlbXB0 zC4xIRlhaogud9yafhnh Wmb8gn93wAPot9Y7lTR7 M4LbkfR1NUXzzKYw NzadyEOOgN2vaotrd8dw oqipUtDcDQQdBEz7SWk9 EHNycUycKbXtEK18ZUO7 WRMzeiPvQ6EaJBBe mMsdQnO0u8P2Il1JY5JB LofbN0IUXVSBAQtdsFO+ KK26ca34G9SwYsvlJbu1 CUPvPTK0wOV0qC9b FQOrGCxvx2G7uPO8T3Fn tsWiad7su8wtXEIiGFjg N85voMZlp0F5XGKriPE9 EEQkrGeaAyOncP27 Oyc+IPCsjZrdk2NsTwfw s4kwb1hweHx3ZsmtHIUb rbIpuOxlHGB5k5IuEj6s DODbyRF6oBV7uE6b QvNpEzC1JZmhN867YoUg pVNgVgywL45aA1HptLE+ LNYfFfa2TDIlcLihQO3d J8UsRNJftyspdEWy yFkrHD8kCHUcavgeAGFb aP0tKAAxZ2n7NbIrMrJ9 RQykP6ClAXDiqxgjIj20 eH9xWyPaKxE3GItv Z8IxsfT0ASWojTYzHMdf GZC2S98mu0O9PCDaUDYs UVK1rXE0yT5inGotqbhp bGVmdDsgdmVydGlj AMpuAFkgY424SJGvzVeu PkNvZGluZyBEYXRlOiAg MDMvMDgvMjAyMzwvdGQ+ AAWdNJE2wSceDZFo bNJpAMctNy0xrVwpmSme PY8iTTVrtymsJRAmpL7i JAPpsMTbaOueRL3uLTTt bfqkf648VbWdQTA5 GKTlaHGlW3WszH4fTiMg XKRiPBWsD0WpyMIpWUso O818WVjzJsH9QVBqflWj J1HtPTVjwGigElD5 h3N2Nz9Qs5UhexgrV6Nj nXWnBfVlHufnRIk7P2Az PjwvdHI+KQ06FTViVP43 JJm1VOH1jMwtMMsb VKQwM2UswU1kTzXfWIEl ZGRkOyc+PHRhYmxlIHdp ZHRoPScxMDAlJyBzdHls JE5dBv9lMXUxPGYp jTpaeTRbCsSvk2lmCBXu WOluCR7hxAtbA9ZhtHW9 LNWmy9g4Sb73Q04tN1Yz dXA+STWlwKJ9kPO6 yL2fJhJoIcI0IBxqH473 IsRnlRScJaeef3mru3ww hYy7PlQ0SSZpiwWsxWgz ESM3e0FwQy51I08y IHdpZHRoPSIxNSUiIHZh uVykpa3sqD3qAx9+PGNv kPJ7kFR6lO8pNnXqLtS5 UXuoD151PbGazQNy Kxmwy3ksl8snbDk5XnYn GUJtazFnaIefXHM0r0Pf Xo62K6PxmPvcx6OfQyr2 vo98rJIlw4L9yLG5 H5DtLUUeomaloEEntKbp RC9jWAZcwtvuHDPviP7i YMBpB6w2CoJeLnL6GJly X5SfqqK2BEZscIFe DCHkyROVsC9msqzeu4af gbvjZfDlJMZsESu0VVj2 JIMlaMutBpIrCCK0KuD0 GWA6mFNpaP6tnYsd xltzrE7gSkg+BMG0bXIy bWFURP8dZxxkrZJ+PHRk PHB5cIarWBizVYUqwL5s XNCxF4w7LnDlIwU1 OQriN8NcydO2QDLrpHSv NVArpCVZiI9tfjucg8mr tcnpEhUoMEKaROh7QSe1 LWFsaWduOiBsZWZ0 CaG1FYG0cMWngY3umPsc qdfbpD8nAww+QmlydGgg ELN7STh1A3YfLsv5UXQs bWotGP6sgUWkUUhr Ci3akRhmjKfzQU1wSUMf zafgj286HrYjz6ouQQOu wHKlFXhpVNT7C54hx2D5 XPLvPARxLIQ0wOU4 aC4zqTdyfxhjlCTwpNys vkIksEbuCJlbQAywH771 MFXqqZweTlXnWOj6F1Lk Kex8JTQhbMevHG9m kPPxVWuxGf1plIzeyGdb SD6rUPDyhwydr293QjIk k3cxHGCchOEsKViwBWV5 W35tu5N5YYUoIAQp SZR2bUX5gT8ryAytvoyi bGVmdDsgdmVydGljYWwt FDvyT436AWNzgOxpDdMq eVx5G6ExHaq8MCFt wEjkAH9qaSGsKXnmJi1i dHymhQdcEV9mAIInyopp q263YcHon5gdCFNxsDZg DBzrJKH0Z29mf4W0 HIXaTXHcQRK1lPH4eE3p bGlnbjogbGVmdDsgdmVy sJumUVdoDGgiG687QIBk cDsnPlBhdGllbnQg XKvjUAx1G7MkHmvgqSC+ NS77ZYOlXP73bGMugIMq e6mfpJu1VrIrLWHpMRU7 qBsdEKpfp0IaHMGk C20uhSVaf9V1TRSvtWex mEHcIfBjiSR5tD3pBOdj beuoq6idkudqBdqqc5yr do05zO77U65zPHja ZHRoPSIzMCUiIHZhbGln zy1fwP9qMk4+PGNvbCB3 rMV7jL0yZRWxTjS4MGcp V226CzAwwEUuMyao o2asc9yzrNc7VsE1CIMe hjYzxJyiFRN7h0AaZe35 W03cIHgaWIEaZBSgPYQo UTJflJuzjv7ubS4y Ii8+XMXlaFJ7tXG3eO9u DpQcKhC6CRjvQ561KdMt lOWmEwyhV50vZ6AtrKH+ TMEpTlt3BTByyWzo MF9adEOaBYdtNb8tQOS7 JyAoKpCjYDacT5VrWLUz gkcmqqboqJP1FQDgELXu sC09Mw7nvNnrNUQx eMFThW8hjcufe6eufefp JtNrEGMhPQm9LFk3SPMb mWxrUaPvSAO9GnT0PMI9 tBGydC0zoUvtpwdl zV4wZ4FuRZJbyaltPb63 aM6eXoCkBwU1BKrzWsz+ REVMUEhJQSBJSUksIFJB JF8KNjWnHuccmEH+ CQOkHKK2vYmiWDcvKTBn nY8gEOXqN8m1WeIrApL1 QZojW9RmDXGcrkcxLf69 bI2xZqRvMhX4AJdr K3YuonM1ZOFbfAOeFWxp OSR1V41ve6X5LTHdZXPz KRH2pUA4tB7zdXvxjraj bGVmdDsgdmVydGlj AKzoRGzuZ614HXWwyHbt BnWcNoFhCtP2XWa4N1Ms Nsy2HRDceBcuAC6dpGHw MGrrSl2plFthrXku OF1dQHEpsvdbTEHybK8n ZYUseNSyaDmiGY1sZUEr nsnez646GqZhKMJ5NMXg sZGnX2LenH9wKpRy WFBrGSPyB1BvrCQpLMqg Q358ETudYuK9WKNnlaFs D5QmBFAtnJnrOfS9t5V0 Am8xZiPABGMbdstq dGQ+SHWnDBV2kTuzEIwx LBYlmL9sGNWgZ9e6BhNw DiL0EHreD1ApZRLbiwbx Ry05iQ3xOwBmXtP4 HSpgI4BenlZ1BGDkeUFg CQpkHUS1T71lw5M1HYMx FAGmUJN6fMY1xH1qzRtk bjogbGVmdDsgdmVy vIlaSWmcRXopE070LIWo uXuxLe8bkTC7X0WvWry8 UEWakSnuZK8wdJXuGVvd Rc9hlEkizWaoWH9m AYKkblfwJUOvrJ7eHMFw nQFxdOudGY6uGFOfqspq e276IqRwKPG1EPSgbVSx G7LsoZ6bVcQqTVCh VEWvO6JnjAKxEHsnJ617 TTupErE3AUKutlPaG4Cw REApqAbrHwH5b1D1Ie3Q sXZdC5TaT9q8Z4Xc PjwvdHI+ES86DSGrNV59 oAXujYDjm1bubSp4LxHa EPJbPUO4dNzkKGjrw5Dh ARAcL31ibSBgp3L2 IGNvbGxhcHNlOyBlbXB0 jB8cCImwfcilk1qeuulm Gappm1aruo61lS52Z74n IHdpZHRoPSIzMCUi JTPleXcawm4jkH3jQu1+ DHKugII0mWH0sL8hQyZj IgJ5RNbnH865YhTofOAw Snqcf3hvx9mvbOl3 IjIwJSIgdmFsaWduPSJ0 f3EuXp35E53sMJddQVMt ISPgCCCxJVBedHupuk0r hA1hWo2+BZ8yq9ix yt18mF44kCV+PHRkIHN0 dHdrAKdpFWNgoB7wUGoy XgA8VSAkCsDhfZ61fOKe FZhpHb9zsKfhnEuw CA2kUETlwtxbk957CgQf u2eoCONugUCqAAqqQFH0 K31by0G2ETFoMDXnWIL3 nPO8fW0guAlmdypy bGVmdDsgdmVydGljYWwt ZWgyD503KGNlaDnoXhSv uEYbF5zedsIYKK1bGbtf dGQ+YCFtYZC9aLpj QYnkCLVhbE8nMLZdE4w8 GeUlWnH6HGhmT5RrxjC9 NBVyjNUhEGIhoNUJrD3n lnppo3fsgxhgYrEn UFYaKEg6ZTt8WCZdqSom OhUfIGP4StB5SCD8hQHy mZ8isRmzthblmR5dBxt+ RklOOjwvdGQ+PHRk DDR9lWprLOndMVBrkR8r IGXmG9v0RnGxFeV7SXor S2RcsmM9DLTaaTDsTUOc eEJYuS4tyzfsl5kk qkxhRxPwBVVeBVt5NLm9 HPCslPxhYeKhMVC5YyP1 WPG6iGDrfZ3rvMbapshy mH2hZfx+TVJOOjwv dGQ+NLQyXBS6hTlsMDts BVKibV0oDRXyY9v2TnQw VxJ5XStcD9KbnwD8WTRa pQYtOWGbwJWPkG2l sdysn3kdheuuLaViCTEf HKs6MXb6TCKmpBplVuDp VRX8FhY4IHD1yRLzxQ9y mOyihslrwO4sImn+ VJO3OSE2DS87SI76P6Ca PjwvdGFibGU+PHRhYmxl IHdpZHRoPScxMDAlJyBz nBxdPU9wBt8sFWYd LWNv (more content not included)... Normal [facility] Consent for Treatmenton Consent for Treatment [id number] Normal [facility] Discharge Instructionson Discharge Instructions [id number]:127 Normal [facility] ED Clinical Summaryon 2022 ED Clinical Summary [place] [id number] ED Clinical Summary Person Information Name: COREY ALONSO III [facility] Age: 27 Years : 1995 Sex: Male Language: Greenlandic PCP: EMELI CHI CNP Marital Status: Phone: [phone] Visit Id: Visit Reason: Headache; Seizure; SEIZURE [...] 09/30/2022 21:30:18 09/30/2022 21:30:18 09/30/2022 21:30:18 ADDRESS: [place] [id number] PHYS DOC NOTES: MEDICAL INFORMATION: Prescriptions Given: Medications to Continue with No Changes Other Medications lamotrigine (lamotrigine 100 mg oral tablet) 2 times a day. oxcarbazepine (Trileptal) By Mouth 2 times a day. PATIENT EDUCATION INFORMATION: Instructions: Epilepsy Follow up: With: Address: When: EMELI ARTI [address] [facility], [place] [id number] [phone] Business (1) In 3 days DIAGNOSIS: Seizure Normal [facility] ED Note-Physicianon 10-01-19 ED Note-Physician Basic Information [...] baseline. He follows with a neurologist in [place] for this. He states that he is [...] EMELI CHI In 3 days [address] [facility] [place] [address]- [phone] Business (1) Additional Instructions: Patient Education Epilepsy [...] Diagnostic Results No qualifying data available. Normal [facility] Comment on above: Result Comment: Elec tronically [...] these instructions at home: Medicines ? Take goei-sic-woglozt and prescription medicines only as told by [...] check with your local DMV (department of [employer] vehicles) to find out about local driving [...] care provider. This is important. [facility] (more content not included)... Normal [facility] ED Patient Summaryon 023 ED Patient Summary [address] [address] Patient Discharge Instructions Person Information Name: COREY ALONSO III Age: 27 Years Arrival Date: 09/30/2022 20:00:11 Discharge Diagnosis: Seizure Primary Care Physician: EMELI CHI CNP Provider Information Primary Provider: Junior Raygoza DO Advanced Epidemiologist:None The exam and treatment you received in the Emergency Department were for an urgent problem and are not intended as complete care. It is important that you follow up with a doctor, nurse practitioner, or physician?s certified surgical tech/first assistant for ongoing care. If your symptoms [...] Follow-up Instructions: With: Address: When: EMELI CHI [address] [place], [place] [id number] [phone] Business (1) In 3 days In the event that this physician does not participate in your insurance network, please consult with your insurance company to find a nearby participating provider. Patient Education Materials: Epilepsy A MESSAGE TO ALL PATIENTS REGARDING OPIOIDS PRESCRIPTION OPIOIDS: WHAT YOU NEED TO KNOW Prescription opioids can be used to help relieve yfjpxatr-pn-kjqxmf pain and are often prescribed following a [...] be struggling with addiction, tell your health manager home healthcare and ask for guidance or call SAM[employer]?S National Helpline at 6-269-605-HELP. v Source: [place] Department of Health and Human Services/[place] (more content not included)... Normal [facility] Monitor Recordon 09-30-2022 Monitor Record [id number] Normal [facility] Pre-Arrival Noteon Pre-Arrival Note Pre-Arrival Summary Name: mayo Current Date: 09/30/2022 20:10:38 EST Gender: Male Date of : Age: 27 Pre-Arrival Type: EMS ETA: 09/30/2022 20:20:00 EST Primary Care Physician: Presenting Problem: seizure Pre-Arrival User: Referring Source: Location: Completion Date/Time: 09/30/2022 19:50:00 [facility] Emergency Department Pre-Hospital Report Form Vital Signs: BP 144/96, HR 98, SPO2 99%, GCS 15 Pre-Hospital Report: Pt coming from [facility], had a seizure, 5th one today, known to have some back in July, alert and alittle confused Treatment in Route: Response to Treatment: Misc. Issues: Normal [facility] GROUP A STREP CULTUREon 08-30 S. pyogenes Ag Ql (Unsp spec) Culture Observations: NEGATIVE FOR GROUP A STREPTOCOCCUS. Normal [facility] Comment on above: Performed By: #### G RASTCX, SSCRN #### [facility] [address] [address] [address] Bob Nelson STREPT SCREENon 09-23-2022 STREP SCREEN A Negative Normal NEGATIVE [facility] Comment on above: Performed By: #### G RASTCX, SSCRN #### [facility] [address] [id number] [address] Bob Nelson Basic Metab w/rfx MGon 08-07 Anion gap [Moles/Vol] 11 mmol/L Normal 9-17 [facility] Comment on above: Performed By: #### B MPX #### [place] [address] [place] [address] Dedicated Regional Driver: Carter Collins MD Calcium [Mass/Vol] 10.0 mg/dL Normal 8.6-10.4 [facility] Comment on above: Performed By: #### B MPX #### [address] [address] Dedicated Regional Driver: Carter Collins MD Chloride [Moles/Vol] 102 mmol/L Normal 98-107 [facility] Comment on above: Performed By: #### B MPX #### [address] [address] Dedicated Regional Driver: Carter Collins MD CO2 [Moles/Vol] 26 mmol/L Normal 20-31 [facility] Comment on above: Performed By: #### B MPX #### [address] [address] Dedicated Regional Driver: Carter Collins MD Creatinine [Mass/Vol] 0.94 mg/dL Normal 0.70-1.20 [facility] Comment on above: Performed By: #### B MPX #### [address] [address] Dedicated Regional Driver: Carter Collins MD GFR/1.73 sq M.predicted among non-blacks MDRD (S/P/Bld) [Vol rate/Area] mL/min/{1.73_m2} Normal >60 [facility] Comment on above: Result Comment: [...] secretion. Performed By: #### B MPX #### [address] [address] Dedicated Regional Driver: Carter Collins MD Glucose [Mass/Vol] 97 mg/dL Normal 70-99 [facility] Comment on above: Performed By: #### B MPX #### [facility] [place] [address] Dedicated Regional Driver: Carter Collins MD Potassium [Moles/Vol] 4.0 mmol/L Normal 3.7-5.3 [facility] Comment on above: Performed By: #### B MPX #### [facility] [address] [place] [address] Dedicated Regional Driver: Carter Collins MD Sodium [Moles/Vol] 139 mmol/L Normal 135-144 [facility] Comment on above: Performed By: #### B MPX #### [facility] [address] [place] [address] Dedicated Regional Driver: Carter Collins MD Urea nitrogen [Mass/Vol] 12 mg/dL Normal 6-20 [facility] Comment on above: Performed By: #### B MPX #### [facility] [address] [place] [address] Dedicated Regional Driver: Carter Collins MD Basic Metabolic Panel w/ Ref rehana to MGon 08-07-2022 Anion gap [Moles/Vol] 11 mmol/L 9 - 17 mmol/L [facility] Calcium [Mass/Vol] 10.0 mg/dL 8.6 - 10. 4 mg/dL [facility] Chloride [Moles/Vol] 102 mmol/L 98 - 10 7 mmol/L [employer] [facility] CO2 [Moles/Vol] 26 mmol/L 20 - 31 mmol/L [facility] Creatinine [Mass/Vol] 0.94 mg/dL 0.70 - 1.20 mg/dL [facility] GFR/1.73 sq M.predicted MDRD (S/P/Bld) [Vol rate/Area] - PINF [facility] Comment on above: Effective Apr 30, 2022 [...] [Mass/Vol] 97 mg/dL 70 - 99 mg/dL [facility] Potassium [Moles/Vol] 4.0 mmol/L 3.7 - 5.3 mmol/L [facility] Sodium [Moles/Vol] 139 mmol/L 135 - 144 mmol/L [facility] Urea nitrogen (BldV) [Mass/Vol] 12 mg/dL 6 - 20 mg/dL [facility] CBC with Auto Differentialon 08-07-2022 Absolute Eos # 0.08 [place] [facility] Absolute Immature Granulocyte 0.04 [facility] Absolute Lymph # 2.27 [facility] Absolute Wise # 0.38 [facility] Basophils (Bld) [#/Vol] 0.03 10*3/uL [facility] Basophils/100 WBC (Bld) 0 % 0 - 2 % B [facility] Eosinophils/100 WBC (Bld) 1 % 1 - 4 % [facility] Hematocrit (Bld) [Volume fraction] 45.6 % 40.7 - 50.3 % [facility] Hemoglobin (Bld) [Mass/Vol] 15.6 g/dL 13.0 - 17.0 g/dL [facility] Immature granulocytes/100 WBC (Bld) 1 % High 0 [facility] Interpretation and review of laboratory results Abnormal [facility] Lymphocytes/100 WBC (Bld) 31 % 24 - 43 % [facility] MCH (RBC) [Entitic mass] 28.5 pg 25. 2 - 33.5 pg [facility] MCHC (RBC) [Mass/Vol] 34.2 g/dL 28.4 - 34.8 g/dL [facility] MCV (RBC) [Entitic vol] 83.4 fL 82.6 - 102.9 fL [facility] Monocytes/100 WBC (Bld) 5 % 3 - 12 % B ON [facility] NRBC Automated 0.0 0.0 per 100 WBC [facility] Platelet distribution width (Bld) [Ratio] 12.6 % 11.8 - 14.4 % [facility] Platelet mean volume (Bld) [Entitic vol] 9.8 fL 8.1 - 13.5 fL [facility] Platelets (Bld) [#/Vol] 215 10*3/uL [facility] RBC (Bld) [#/Vol] 5.47 10*6/uL 4.21 - 5.7 7 m/uL [facility] Segmented neutrophils/100 WBC (Bld) 62 % 36 - 65 % [facility] Segs Absolute 4.58 [facility] WBC (Bld) [#/Vol] 7.4 10*3/uL [facility] CBC with Diffon 08-07-2022 Abs. Basophil 0.03 k/uL Normal 0.00-0.20 [facility] Comment on above: Performed By: #### C DP #### [facility] [employer] [address] [place] [address] Dedicated Regional Driver: Carter Collins MD Abs.Imm.Granulocyte 0.04 k/uL Normal 0.00-0.30 [facility] Comment on above: Performed By: #### C DP #### [facility] [employer] [address] [place], [place] [phone] Dedicated Regional Driver: Carter Collins MD Abs.Neutrophil (Seg) 4.58 k/uL Normal 1.50-8.10 [facility] Comment on above: Performed By: #### C DP #### [facility] [employer] [address] [place], [place] [phone] Dedicated Regional Driver: Carter Collins MD Basophils/100 WBC (Bld) 0 % Normal 0-2 [facility] Comment on above: Performed By: #### C DP #### [address] [address] Dedicated Regional Driver: Carter Collins MD Eosinophils (Bld) [#/Vol] 0.08 10*3/uL Normal 0.00-0.4 4 [facility] Comment on above: Performed By: #### C DP #### [address] [address] Dedicated Regional Driver: Carter Collins MD Eosinophils/100 WBC (Bld) 1 % Normal 1-4 [facility] Comment on above: Performed By: #### C DP #### [address] [address] Dedicated Regional Driver: Carter Collins MD Erythrocyte distribution width (RBC) [Ratio] 12.6 % Normal 11.8-14.4 [facility] Comment on above: Performed By: #### C DP #### [address] [address] Dedicated Regional Driver: Carter Collins MD Hematocrit (Bld) [Volume fraction] 45.6 % Normal 40.7-50.3 [facility] Comment on above: Performed By: #### C DP #### [address] [address] Dedicated Regional Driver: Carter Collins MD Hemoglobin (Bld) [Mass/Vol] 15.6 g/dL Normal 13.0-17.0 [facility] Comment on above: Performed By: #### C DP #### [address] [address] Dedicated Regional Driver: Carter Collins MD Immature granulocytes/100 WBC (Bld) 1 % High 0 [facility] Comment on above: Performed By: #### C DP #### [address] [address] Dedicated Regional Driver: Carter Collins MD Lymphocytes (Bld) [#/Vol] 2.27 10*3/uL Normal 1.10-3.7 0 [facility] Comment on above: Performed By: #### C DP #### [address] [address] [employer]: Carter Collins MD Lymphocytes/100 WBC (Bld) 31 % Normal 24-43 [facility] Comment on above: Performed By: #### C DP #### [address] [address] [employer] Driver: Carter Collins MD MCH (RBC) [Entitic mass] 28.5 pg Normal 25.2-33.5 [facility] Comment on above: Performed By: #### C DP #### [address] [address] [employer] Driver: Carter Collins MD MCHC (RBC) [Mass/Vol] 34.2 g/dL Normal 28.4-34.8 [facility] Comment on above: Performed By: #### C DP #### [address] [address] [employer] Driver: Carter Collins MD MCV (RBC) [Entitic vol] 83.4 fL Normal 82.6-102.9 [facility] Comment on above: Performed By: #### C DP #### [address] [address] [employer] Driver: Carter Collins MD Monocytes (Bld) [#/Vol] 0.38 10*3/uL Normal 0.10-1.20 [facility] Comment on above: Performed By: #### C DP #### [address] [address] [employer] Driver: Carter Collins MD Monocytes/100 WBC (Bld) 5 % Normal 3-12 M [facility] Comment on above: Performed By: #### C DP #### [address] [address] [employer] Driver: Carter Collins MD Neutrophil (Seg) 62 % Normal 36-65 [facility] Comment on above: Performed By: #### C DP #### [address] [address] [employer] Driver: Carter Collins MD NRBC Automated 0.0 per 100 WBC Normal 0.0 [facility] Comment on above: Performed By: #### C DP #### [address] [address] [employer] Driver: Carter Collins MD Platelet mean volume (Bld) [Entitic vol] 9.8 fL Normal 8.1-13.5 [facility] Comment on above: Performed By: #### C DP #### [address] [address] [employer] Driver: Carter Collins MD Platelets (Bld) [#/Vol] 215 10*3/uL Normal 138-453 [facility] Comment on above: Performed By: #### C DP #### [address] [address] [employer] Driver: Carter Collins MD RBC (Bld) [#/Vol] 5.47 10*6/uL Normal 4.21-5.77 [facility] Comment on above: Performed By: #### C DP #### [address] [address] [employer] Driver: Carter Collins MD WBC (Bld) [#/Vol] 7.4 10*3/uL Normal 3.5-11.3 [facility] Comment on above: Performed By: #### C DP #### [address] [address] [employer] Driver: Carter Collins MD EEG video monitoringon 08-07 Samiar Rubio MD 08/07/2022 6:14 PM LONG-TERM EEG-VIDEO MONITORING CLINICAL NEUROPHYSIOLOGY LABORATORY DEPARTMENT OF NEUROLOGY [facility] Patient: Corey Alonso III Age: 26 y.o. Referring Physician: Hans Granado,Gerardo History: The patient is a 26 y.o. [...] revealed no abnormalities. SAMIRA RUBIO MD Diplomate, [place] [employer] Diplomate, [place] [employer] of Clinical Neurophysiology Diplomate, [place] [employer] of Epilepsy Please note this is a preliminary report and updated daily. The final report will have a summary of behavior and electrographic findings with clinical correlation. [employer] Work Phone: EEG video monitoringOrdered By: Samira Rubio on 08-07-2022 [employer] Phone: LAMOTRIGINEon 06-19-2022 Lamotrigine, Serum 4.2 ug/mL Normal 2.0-20.0 [facility] Comment on above: Result Comment: Dete ction Limit = 1.0 Performed By: #### C BC #### [facility] [address] [place] [address] Dr. Bob Nelson CBC AUTO DIFFon 06-11-2022 BASO # 0.0 103/ul Normal 0.0-0.1 [facility] Comment on above: Performed By: #### C BC #### [facility] [address] [place] [address] Dr. Bob Nelson Basophils/100 WBC (Bld) 0.2 % Normal 0.2-2.0 [facility] Comment on above: Performed By: #### C BC #### [facility] [address] [place] [address] Dr. Bob Nelson EO # 0.0 103/ul Normal 0.0-0.7 [facility] Comment on above: Performed By: #### C BC #### [facility] [address] [place] [address] Dr. Bob Nelson Eosinophils/100 WBC (Bld) 0.0 % Critically low 0.9-7. 0 [facility] Comment on above: Performed By: #### C BC #### [facility] [address] [place] [address] Dr. Bob Nelson Erythrocyte distribution width (RBC) [Ratio] 13.0 % Normal 11.0-15.0 [facility] Comment on above: Performed By: #### C BC #### [facility] [address] [place] [address] Dr. Bob Nelson Hematocrit (Bld) [Volume fraction] 40.4 % Critically low 42.0-54.0 [facility] Comment on above: Performed By: #### C BC #### [facility] [address] [place] [address] Dr. Bob Nelson Hemoglobin (Bld) [Mass/Vol] 14.3 g/dL Normal 14.0-18.0 [facility] Comment on above: Performed By: #### C BC #### [facility] [address] [place] [address] Dr. Bob Nelson IG # 0.03 10e3/ul Normal 0.00-0.03 [facility] Comment on above: Performed By: #### C BC #### [facility] [address] [place] [address] Dr. Bob Nelson IG % 0.3 % Normal 0.0-0.5 [facility] Comment on above: Performed By: #### C BC #### [facility] [address] [address] [address] Bob Nelson LYMPH # 0.7 103/ul Critically low 1.2-3.8 [facility] Comment on above: Performed By: #### C BC #### [facility] [address] [place] [address] Dr. Bob Nelson Lymphocytes/100 WBC (Bld) 7.2 % Critically low 20.5-6 0.0 [facility] Comment on above: Performed By: #### C BC #### [facility] [address] [place] [address] Dr. Bob Nelson MANUAL DIFF REQ NO Normal [facility] Comment on above: Performed By: #### C BC #### [facility] [address] [place] [address] Dr. Bob Nelson MCH (RBC) [Entitic mass] 28.7 pg Normal 25.9-34.0 [facility] Comment on above: Performed By: #### C BC #### [facility] [address] [place] [address] Dr. Bob Nelson MCHC (RBC) [Mass/Vol] 35.4 g/dL Critically high 29.9-35.2 [facility] Comment on above: Performed By: #### C BC #### [facility] [address] [place] [address] Dr. Bob Nelson MCV (RBC) [Entitic vol] 81.1 fL Normal 80.0-94.0 [facility] Comment on above: Performed By: #### C BC #### [facility] [address] [place] [address] Dr. Bob Nelson MONO # 0.6 103/ul Normal 0.3-0.8 [facility] Comment on above: Performed By: #### C BC #### [facility] [address] [place] [address] Dr. Bob Nelson Monocytes/100 WBC (Bld) 6.0 % Normal 1.7-12.0 [facility] Comment on above: Performed By: #### C BC #### [facility] [address] [place] [address] Dr. Bob Nelson NEUT # 8.8 103/ul Critically high 1.4-6.5 [facility] Comment on above: Performed By: #### C BC #### [facility] [address] [place] [address] Dr. Bob Nelson Neutrophils/100 WBC (Bld) 86.3 % Critically high 43.0- 75.0 [facility] Comment on above: Performed By: #### C BC #### [facility] [address] [place] [address] Dr. Bob Nelson Platelet mean volume (Bld) [Entitic vol] 9.1 fL Critically low 9.5-13.5 [facility] Comment on above: Performed By: #### C BC #### [facility] [address] [place] [address] Dr. Bob Nelson PLT 177 103/ul Normal 150-450 [facility] Comment on above: Performed By: #### C BC #### [facility] [address] [place] [address] Dr. Bob Nelson RBC 4.98 106/ul Normal 4.70-6.10 [facility] Comment on above: Performed By: #### C BC #### [facility] [address] [place] [address] Dr. Bob Nelson WBC 10.2 103/ul Normal 4.0-11.0 [facility] Comment on above: Performed By: #### C BC #### [facility] [address] [place] [address] Dr. Bob Nelson CBC W MANUAL DIFFon 06-11-20 22 ATYPICAL LYMPH # Normal [facility] Comment on above: Performed By: #### C BC #### [facility] [address] [place] [address] Dr. Bob Nelson ATYPICAL LYMPH % Normal [facility] Comment on above: Performed By: #### C BC #### [facility] [address] [place] [address] Dr. Bob Nelson BAND # 0.0 103/ul Normal 0.0-0.3 [facility] Comment on above: Performed By: #### C BC #### [facility] [address] [place] [address] Dr. Bob Nelson BAND % 0 % Normal 0-5 [facility] Comment on above: Performed By: #### C BC #### [facility] [address] [place] [address] Dr. Bob Nelson BASOM # 0.00 103/ul Normal 0.00-0.10 [facility] Comment on above: Performed By: #### C BC #### [facility] [address] [place] [address] Dr. Bob Nelson BASOM % 0.0 % Critically low 0.2-2.0 [facility] Comment on above: Performed By: #### C BC #### [facility] [address] [place] [address] Dr. Bob Nelson BLAST # Normal [facility] Comment on above: Performed By: #### C BC #### [facility] [address] [place] [address] Dr. Bob Nelson BLAST % Normal [facility] Comment on above: Performed By: #### C BC #### [facility] [address] [place] [address] Dr. Bob Nelson CORRECTED WBC Normal 4.0-11.0 [facility] Comment on above: Performed By: #### C BC #### [facility] [address] [place] [address] Dr. Bob Nelson EOS # 0.00 103/ul Normal 0.00-0.70 [facility] Comment on above: Performed By: #### C BC #### [facility] [address] [place] [address] Dr. Bob Nelson EOS% 0.0 % Critically low 0.9-7.0 [facility] Comment on above: Performed By: #### C BC #### [facility] [address] [address] [address] Bob Nelson HCT 41.3 % Critically low 42.0-54.0 [facility] Comment on above: Performed By: #### C BC #### [facility] [address] [address] [address] Bob Nelson HGB 14.4 g/dl Normal 14.0-18.0 [facility] Comment on above: Performed By: #### C BC #### [facility] [address] [place] [address] Dr. Bob Nelson LYMPHM # 0.85 103/ul Critically low 1.20-3.80 [facility] Comment on above: Performed By: #### C BC #### [facility] [address] [place] [address] Dr. Bob Nelson LYMPHM% 8.0 % Critically low 20.5-60.0 [facility] Comment on above: Performed By: #### C BC #### [facility] [address] [place] [address] Dr. Bob Nelson MCH 28.6 pg Normal 25.9-34.0 [facility] Comment on above: Performed By: #### C BC #### [facility] [address] [place] [address] Dr. Bob Nelson MCHC 34.9 g/dl Normal 29.9-35.2 [facility] Comment on above: Performed By: #### C BC #### [facility] [address] [place] [address] Dr. Bob Nelson MCV 82.1 fL Normal 80.0-94.0 [facility] Comment on above: Performed By: #### C BC #### [facility] [address] [place] [address] Dr. Bob Nelson METAMYELOCYTE # Normal [facility] Comment on above: Performed By: #### C BC #### [facility] [address] [place] [address] Dr. Bob Nelson METAMYELOCYTE % Normal [facility] Comment on above: Performed By: #### C BC #### [facility] [address] [place] [address] Dr. Bob Nelson MONOM# 0.64 103/ul Normal 0.30-0.80 [facility] Comment on above: Performed By: #### C BC #### [facility] [address] [place] [address] Dr. Bob Nelson MONOM% 6.0 % Normal 1.7-12.0 [facility] Comment on above: Performed By: #### C BC #### [facility] [address] [place] [address] Dr. Bob Nelson MPV 9.4 fL Critically low 9.5-13.5 [facility] Comment on above: Performed By: #### C BC #### [facility] [address] [place] [address] Dr. Bob Nelson MYELOCYTE # Normal [facility] Comment on above: Performed By: #### C BC #### [facility] [address] [place] [address] Dr. Bob Nelson MYELOCYTE % Normal [facility] Comment on above: Performed By: #### C BC #### [facility] [address] [place] [address] Dr. Bob Nelson NRBC Normal [facility] Comment on above: Performed By: #### C BC #### [facility] [address] [place] [address] Dr. Bob Nelson PLT 182 103/ul Normal 150-450 [facility] Comment on above: Performed By: #### C BC #### [facility] [address] [place] [address] Dr. Bob Nelson RBC 5.03 106/ul Normal 4.70-6.10 [facility] Comment on above: Performed By: #### C BC #### [facility] [address] [place] [address] Dr. Bob Nelson RDW 12.9 % Normal 11.0-15.0 [facility] Comment on above: Performed By: #### C BC #### [facility] [address] [place] [address] Dr. Bob Nelson SEG # 9.12 103/ul Critically high 1.40-6.50 [facility] Comment on above: Performed By: #### C BC #### [facility] [address] [place] [address] Dr. Bob Nelson SEG % 86.0 % Critically high 43.0-75.0 [facility] Comment on above: Performed By: #### C BC #### [facility] [address] [place] [address] Dr. Bob Nelson WBC 10.6 103/ul Normal 4.0-11.0 [facility] Comment on above: Performed By: #### C BC #### [facility] [address] [place] [address] Dr. Bob Nelson ER URINE PROFILEon 2 Bilirubin Ql (U) Negative Normal NEGATIVE [facility] Comment on above: Performed By: #### B MP #### [facility] [address] [place] [address] Dr. Bob Nelson Clarity (U) CLEAR Normal CLEAR [facility] Comment on above: Performed By: #### B MP #### [facility] [address] [place] [address] Dr. Bob Nelson Color (U) DK. YELLOW Normal YELLOW [facility] Comment on above: Performed By: #### B MP #### [facility] [address] [place] [address] Dr. Bob VANEGAS A micrscopic examination will be performed if indicated. Normal [facility] Comment on above: Performed By: #### B MP #### [facility] [address] [place] [address] Dr. Bob Nelson Glucose Ql (U) Negative Normal NEGATIVE [facility] Comment on above: Performed By: #### B MP #### [facility] [address] [place] [address] Dr. Bob Nelson Hemoglobin Ql (U) Negative Normal NEGATIVE [facility] Comment on above: Performed By: #### B MP #### [facility] [address] [place] [address] Dr. Bob Nelson Ketones Ql (U) Negative Normal NEGATIVE [facility] Comment on above: Performed By: #### B MP #### [facility] [address] [place] [address] Dr. Bob Nelson LEUKOCYTES Negative Normal NEGATIVE [facility] Comment on above: Performed By: #### B MP #### [facility] [address] [place] [address] Dr. Bbo Nelson Nitrite Ql (U) Negative Normal NEGATIVE [facility] Comment on above: Performed By: #### B MP #### [facility] [address] [place] [address] Dr. Bob Nelson pH (U) 6.5 [pH] Normal 5-9 [facility] Comment on above: Performed By: #### B MP #### [facility] [address] [place] [address] Dr. Bob Nelson Protein (U) [Mass/Vol] 30 mg/dL Abnormal NEGAT TOMMY/ TRACE [facility] Comment on above: Performed By: #### B MP #### [facility] [address] [place] [address] Dr. Bob Nelson SPEC GRAVITY 1.025 Normal 1.005-<=1.0 25 [facility] Comment on above: Performed By: #### B MP #### [facility] [address] [place] [address] Dr. Bob Nelson UR MICRO IND INDICATED Normal [facility] Comment on above: Performed By: #### B MP #### [facility] [address] [place] [address] Dr. Bob Nelson Urobilinogen Qn (U) 0.2 {Lance'U}/dL Normal 0.2 - 1. 0 [facility] Comment on above: Performed By: #### B MP #### [facility] [address] [place] [address] Dr. Bob Nelson PROF CHEM 8 (BAS METB)on Anion gap [Moles/Vol] 7.2 mmol/L Normal [facility] Comment on above: Performed By: #### B MP #### [facility] [address] [address] [address] Bob Nelson Calcium [Mass/Vol] 9.0 mg/dL Normal 8.5-10.1 [facility] Comment on above: Performed By: #### B MP #### [facility] [address] [address] [address] Bob Nelson Chloride [Moles/Vol] 98 mmol/L Normal 98-107 [facility] Comment on above: Performed By: #### B MP #### [facility] [address] [place] [address] Dr. Bob Nelson CO2 [Moles/Vol] 30.9 mmol/L Normal 21.0-32.0 [facility] Comment on above: Performed By: #### B MP #### [facility] [address] [place] [address] Dr. Bob Nelson Creatinine [Mass/Vol] 0.96 mg/dL Normal 0.70-1.30 [facility] Comment on above: Performed By: #### B MP #### [facility] [address] [place] [address] Dr. Bob Nelson EGFR-AF JORDANIAN >60 Normal >=60 [facility] Comment on above: Performed By: #### B MP #### [facility] [address] [place] [address] Dr. Bob Nelson EGFR-NON AF JORDANIAN >60 Normal >=60 [facility] Comment on above: Performed By: #### B MP #### [facility] [address] [address] [address] Bob Nelson Glucose [Mass/Vol] 132 mg/dL Critically high 74-106 [facility] Comment on above: Performed By: #### B MP #### [facility] [address] [place] [address] Dr. Bob Nelson Potassium [Moles/Vol] 4.1 mmol/L Normal 3.5-5.1 [facility] Comment on above: Performed By: #### B MP #### [facility] [address] [address] [address] Bob Nelson Sodium [Moles/Vol] 132 mmol/L Critically low 136-145 Th e [facility] Comment on above: Performed By: #### B MP #### [facility] [address] [place] [address] Dr. Bob Nelson Urea nitrogen [Mass/Vol] 13.0 mg/dL Normal 7.0-18.0 [facility] Comment on above: Performed By: #### B MP #### [facility] [address] [place] [address] Dr. Bob Nelson Urea nitrogen/Creatinine [Mass ratio] 13.5 mg/mg Normal [facility] Comment on above: Performed By: #### B MP #### [facility] [address] [place] [address] Dr. Bob Nelson URINE MICROSCOPIC ONLYon BACTERIA NONE SEEN Normal NONE SEEN [facility] Comment on above: Performed By: #### B MP #### [facility] [address] [place] [address] Dr. Bob Nelson Bacteria identified Cx Nom (U) NOT INDICATED Normal [facility] Comment on above: Performed By: #### B MP #### [facility] [address] [place] [address] Dr. Bob Nelson CAST SEEN Abnormal NONE SEEN [facility] Comment on above: Performed By: #### B MP #### [facility] [address] [place] [address] Dr. Bob Nelson Crystals LM Nom (Urine sed) NONE SEEN Normal NONE SEEN [facility] Comment on above: Performed By: #### B MP #### [facility] [address] [place] [address] Dr. Bob Nelson Epithelial cells LM Ql (Urine sed) NONE SEEN Normal NONE SEEN /RARE [facility] Comment on above: Performed By: #### B MP #### [facility] [address] [place] [address] Dr. Bob Nelson MUCOUS NONE SEEN Normal NONE SEEN [facility] Comment on above: Performed By: #### B MP #### [facility] [address] [place] [address] Dr. Bob Nelson RBC NONE SEEN Abnormal 0-2 [facility] Comment on above: Performed By: #### B MP #### [facility] [address] [place] [address] Dr. Bob Nelson WBC NONE SEEN Normal NONE SEEN [facility] Comment on above: Performed By: #### B MP #### [facility] [address] [place] [address] Dr. Bob Nelson XR CHEST 1 Von [...] by: TRINITY GARY Date: 2022-06-11 09:17 Normal [facility] LAMOTRIGINEon 05-22-2022 Lamotrigine, Serum 5.5 ug/mL Normal 2.0-20.0 [facility] Comment on above: Result Comment: Dete ction Limit = 1.0 Performed By: #### L AMOT #### [facility] [address] [place] [address] Dr. Bob Nelson CBC AUTO DIFFon 04-24-2022 BASO # 0.0 103/ul Normal 0.0-0.1 [facility] Comment on above: Performed By: #### C BC #### [facility] [address] [place] [address] Dr. Bob Nelson Basophils/100 WBC (Bld) 0.5 % Normal 0.2-2.0 [facility] Comment on above: Performed By: #### C BC #### [facility] [address] [place] [address] Dr. Bob Nelson EO # 0.1 103/ul Normal 0.0-0.7 [facility] [facility] Comment on above: Performed By: #### C BC #### [facility] [address] [place] [address] Dr. Bob Nelson Eosinophils/100 WBC (Bld) 1.8 % Normal 0.9-7.0 [facility] Comment on above: Performed By: #### C BC #### [facility] [address] [place] [address] Dr. Bob Nelson Erythrocyte distribution width (RBC) [Ratio] 12.6 % Normal 11.0-15.0 [facility] Comment on above: Performed By: #### C BC #### [facility] [address] [place] [address] Dr. Bob Nelson Hematocrit (Bld) [Volume fraction] 48.4 % Normal 42.0-54.0 [facility] Comment on above: Performed By: #### C BC #### [facility] [address] [place] [address] Dr. Bob Nelson Hemoglobin (Bld) [Mass/Vol] 17.2 g/dL Normal 14.0-18.0 [facility] Comment on above: Performed By: #### C BC #### [facility] [address] [place] [address] Dr. Bob Nelson IG # 0.02 10e3/ul Normal 0.00-0.03 [facility] Comment on above: Performed By: #### C BC #### [facility] [address] [place] [address] Dr. Bob Nelson IG % 0.3 % Normal 0.0-0.5 [facility] Comment on above: Performed By: #### C BC #### [facility] [address] [place] [address] Dr. Bob Nelson LYMPH # 2.6 103/ul Normal 1.2-3.8 [facility] Comment on above: Performed By: #### C BC #### [facility] [address] [place] [address] Dr. Bob Nelson Lymphocytes/100 WBC (Bld) 39.4 % Normal 20.5-60.0 [facility] Comment on above: Performed By: #### C BC #### [facility] [address] [place] [address] Dr. Bob Nelson MANUAL DIFF REQ NO Normal [facility] Comment on above: Performed By: #### C BC #### [facility] [address] [place] [address] Dr. Bob Nelson MCH (RBC) [Entitic mass] 29.0 pg Normal 25.9-34.0 [facility] Comment on above: Performed By: #### C BC #### [facility] [address] [place] [address] Dr. Bob Nelson MCHC (RBC) [Mass/Vol] 35.5 g/dL Critically high 29.9-35.2 [facility] Comment on above: Performed By: #### C BC #### [facility] [address] [place] [address] Dr. Bob Nelson MCV (RBC) [Entitic vol] 81.6 fL Normal 80.0-94.0 [facility] Comment on above: Performed By: #### C BC #### [facility] [address] [place] [address] Dr. Bob Nelson MONO # 0.5 103/ul Normal 0.3-0.8 [facility] Comment on above: Performed By: #### C BC #### [facility] [address] [place] [address] Dr. Bob Nelson Monocytes/100 WBC (Bld) 8.2 % Normal 1.7-12.0 [facility] Comment on above: Performed By: #### C BC #### [facility] [address] [place] [address] Dr. Bob Nelson NEUT # 3.3 103/ul Normal 1.4-6.5 [facility] Comment on above: Performed By: #### C BC #### [facility] [address] [place] [address] Dr. Bob Nelson Neutrophils/100 WBC (Bld) 49.8 % Normal 43.0-75.0 [facility] Comment on above: Performed By: #### C BC #### [facility] [address] [place] [address] Dr. Bob Nelson Platelet mean volume (Bld) [Entitic vol] 9.5 fL Normal 9.5-13.5 [facility] Comment on above: Performed By: #### C BC #### [facility] [address] [place] [address] Dr. Bob Nelson PLT 225 103/ul Normal 150-450 [facility] Comment on above: Performed By: #### C BC #### [facility] [address] [place] [address] Dr. Bob Nelson RBC 5.93 106/ul Normal 4.70-6.10 [facility] Comment on above: Performed By: #### C BC #### [facility] [address] [place] [address] Dr. Bob Nelson WBC 6.6 103/ul Normal 4.0-11.0 [facility] Comment on above: Performed By: #### C BC #### [facility] [address] [place] [address] Dr. Bob Nelson DRUG SCREEN RAPID (URINE)on 04-24-2022 AMP Negative Normal NEGATIVE [facility] Comment on above: Performed By: #### B MP #### [facility] [address] [place] [address] Dr. Bob Nelson BAR Negative Normal NEGATIVE [facility] Comment on above: Performed By: #### B MP #### [facility] [address] [place] [address] Dr. Bob Nelson BUP Negative Normal NEGATIVE [facility] Comment on above: Performed By: #### B MP #### [facility] [address] [place] [address] Dr. Bob Nelson BZO Negative Normal NEGATIVE [facility] Comment on above: Performed By: #### B MP #### [facility] [address] [place] [address] Dr. Bob Nelson BETHANIE Negative Normal NEGATIVE [facility] Comment on above: Performed By: #### B MP #### [facility] [address] [place] [address] Dr. Bob Nelson CUT-OFFS SEE BELOW Normal [facility] Comment on above: Result Comment: AMP [...] ng/mL Performed By: #### B MP #### [facility] [address] [place] [address] Dr. Bob Nelson DRUG CUT HEADER DRUG CLASS TEST SYSTEM CUT-OFF CONCENTRATIONS ARE FOLLOWS: Normal [facility] Comment on above: Performed By: #### B MP #### [facility] [address] [place] [address] Dr. Bob Nelson mAMP Negative Normal NEGATIVE [facility] Comment on above: Performed By: #### B MP #### [facility] [address] [place] [address] Dr. Bob Nelson MTD Negative Normal NEGATIVE [facility] Comment on above: Performed By: #### B MP #### [facility] [address] [place] [address] Dr. Bob Nelson OPI Negative Normal NEGATIVE [facility] Comment on above: Performed By: #### B MP #### [facility] [address] [place] [address] Dr. Bob Nelson OXY Negative Normal NEGATIVE [facility] Comment on above: Performed By: #### B MP #### [facility] [address] [place] [address] Dr. Bob Nelson PCP Negative Normal NEGATIVE [facility] Comment on above: Performed By: #### B MP #### [facility] [address] [place] [address] Dr. Bob Nelson PPX Negative Normal NEGATIVE [facility] Comment on above: Performed By: #### B MP #### [facility] [address] [place] [address] Dr. Bob Nelson TCA Negative Normal NEGATIVE [facility] Comment on above: Performed By: #### B MP #### [facility] [address] [place] [address] Dr. Bob Nelson THC Negative Normal NEGATIVE [facility] Comment on above: Performed By: #### B MP #### [facility] [address] [place] [address] Dr. Bob Nelson ER URINE PROFILEon 2 Bilirubin Ql (U) Negative Normal NEGATIVE [facility] Comment on above: Performed By: #### C MP #### [facility] [address] [place] [address] Dr. Bob Nelson Clarity (U) CLEAR Normal CLEAR [facility] Comment on above: Performed By: #### C MP #### [facility] [address] [place] [address] Dr. Bob Nelson Color (U) YELLOW Normal YELLOW [facility] Comment on above: Performed By: #### C MP #### [facility] [address] [place] [address] Dr. Bob VANEGAS A micrscopic examination will be performed if indicated. Normal [facility] Comment on above: Performed By: #### C MP #### [facility] [address] [place] [address] Dr. Bob Nelson Glucose Ql (U) Negative Normal NEGATIVE [facility] Comment on above: Performed By: #### C MP #### [facility] [address] [place] [address] Dr. Bob Nelson Hemoglobin Ql (U) Negative Normal NEGATIVE [facility] Comment on above: Performed By: #### C MP #### [facility] [address] [place] [address] Dr. Bob Nelson Ketones Ql (U) Negative Normal NEGATIVE [facility] Comment on above: Performed By: #### C MP #### [facility] [address] [place] [address] Dr. Bob Nelson LEUKOCYTES Negative Normal NEGATIVE [facility] Comment on above: Performed By: #### C MP #### [facility] [address] [place] [address] Dr. Bob Nelson Nitrite Ql (U) Negative Normal NEGATIVE [facility] Comment on above: Performed By: #### C MP #### [facility] [address] [place] [address] Dr. Bob Nelson pH (U) 5.5 [pH] Normal 5-9 [facility] Comment on above: Performed By: #### C MP #### [facility] [address] [place] [address] Dr. Bob Nelson Protein (U) [Mass/Vol] 100 mg/dL Abnormal NEGAT TOMMY/ TRACE [facility] Comment on above: Performed By: #### C MP #### [facility] [address] [place] [address] Dr. Bob Nelson SPEC GRAVITY >=1.030 Abnormal 1.005-<=[address] [place] [address] Comment on above: Performed By: #### C MP #### [facility] [address] [place] [address] Dr. Bob Nelson UR MICRO IND INDICATED Normal [facility] Comment on above: Performed By: #### C MP #### [facility] [address] [place] [address] Dr. Bob Nelson Urobilinogen Qn (U) 0.2 {Lance'U}/dL Normal 0.2 - 1. 0 [facility] Comment on above: Performed By: #### C MP #### [facility] [address] [place] [address] Dr. Bob Nelson PROF 14(COMP METB)on 022 Albumin [Mass/Vol] 4.3 g/dL Normal 3.4-5.0 [facility] Comment on above: Performed By: #### C MP #### [facility] [address] [place] [address] Dr. Bob Nelson Albumin/Globulin [Mass ratio] 1.2 {ratio} Normal [facility] Comment on above: Performed By: #### C MP #### [facility] [address] [place] [address] Dr. Bob Nelson ALP [Catalytic activity/Vol] 104 U/L Normal 46-116 [facility] Comment on above: Performed By: #### C MP #### [facility] [address] [place] [address] Dr. Bob Nelson ALT [Catalytic activity/Vol] 64 U/L Critically high 16-63 [facility] Comment on above: Performed By: #### C MP #### [facility] [address] [place] [address] Dr. Bob Nelson Anion gap [Moles/Vol] 19.9 mmol/L Normal [facility] Comment on above: Performed By: #### C MP #### [facility] [address] [place] [address] Dr. Bob Nelson AST [Catalytic activity/Vol] 26 U/L Normal 15-37 [facility] Comment on above: Performed By: #### C MP #### [facility] [address] [place] [address] Dr. Bob Nelson Bilirubin [Mass/Vol] 0.3 mg/dL Normal 0.2-1.0 [facility] Comment on above: Performed By: #### C MP #### [facility] [address] [place] [address] Dr. Bob Nelson Calcium [Mass/Vol] 9.4 mg/dL Normal 8.5-10.1 [facility] Comment on above: Performed By: #### C MP #### [facility] [address] [place] [address] Dr. Bob Nelson Chloride [Moles/Vol] 101 mmol/L Normal 98-107 [facility] Comment on above: Performed By: #### C MP #### [facility] [address] [place] [address] Dr. Bob Nelson CO2 [Moles/Vol] 20.8 mmol/L Critically low 21.0-32.0 [facility] Comment on above: Performed By: #### C MP #### [facility] [address] [address] [address] Bob Nelson Creatinine [Mass/Vol] 1.16 mg/dL Normal 0.70-1.30 [facility] Comment on above: Performed By: #### C MP #### [facility] [address] [address] [address] Bob Nelson EGFR-AF JORDANIAN >60 Normal >=60 [facility] Comment on above: Performed By: #### C MP #### [facility] [address] [address] [address] Bob Nelson EGFR-NON AF JORDANIAN >60 Normal >=60 [facility] Comment on above: Performed By: #### C MP #### [facility] [address] [address] [address] Bob Nelson Globulin (S) [Mass/Vol] 3.6 g/dL Normal [facility] Comment on above: Performed By: #### C MP #### [facility] [address] [address] [address] Bob Nelson Glucose [Mass/Vol] 152 mg/dL Critically high 74-106 [facility] Comment on above: Performed By: #### C MP #### [facility] [address] [address] [address] Bob Nelson Potassium [Moles/Vol] 3.7 mmol/L Normal 3.5-5.1 [facility] Comment on above: Performed By: #### C MP #### [facility] [address] [address] [address] Bob Nelson Protein [Mass/Vol] 7.9 g/dL Normal 6.4-8.2 [facility] Comment on above: Performed By: #### C MP #### [facility] [address] [address] [address] Bob Nelson Sodium [Moles/Vol] 138 mmol/L Normal 136-145 [facility] Comment on above: Performed By: #### C MP #### [facility] [address] [address] [address] Bob Nelson Urea nitrogen [Mass/Vol] 12.0 mg/dL Normal 7.0-18.0 [facility] Comment on above: Performed By: #### C MP #### [facility] [address] [place] [address] Dr. Bob Nelson Urea nitrogen/Creatinine [Mass ratio] 10.3 mg/mg Normal [facility] Comment on above: Performed By: #### C MP #### [facility] [address] [place] [address] Dr. Bob Nelson TSHon 04-24-2022 TSH 3.982 uIU/mL Critically high 0.358-3.740 [facility] Comment on above: Performed By: #### C MP #### [facility] [address] [place] [address] Dr. Bob Nelson URINE MICROSCOPIC ONLYon BACTERIA NONE SEEN Normal NONE SEEN [facility] Comment on above: Performed By: #### C MP #### [facility] [address] [place] [address] Dr. Bob Nelson Bacteria identified Cx Nom (U) NOT INDICATED Normal [facility] Comment on above: Performed By: #### C MP #### [facility] [address] [place] [address] Dr. Bob Nelson CAST SEEN Abnormal NONE SEEN [facility] Comment on above: Performed By: #### C MP #### [facility] [address] [place] [address] Dr. Bob Nelson Crystals LM Nom (Urine sed) NONE SEEN Normal NONE SEEN [facility] Comment on above: Performed By: #### C MP #### [facility] [address] [place] [address] Dr. Bob Nelson Epithelial cells LM Ql (Urine sed) RARE Normal NONE SEEN /RARE [facility] Comment on above: Performed By: #### C MP #### [facility] [address] [place] [address] Dr. Bob Nelson HYALINE CAST RARE Normal [facility] Comment on above: Performed By: #### C MP #### [facility] [address] [address] [address] Bob Nelson MUCOUS NONE SEEN Normal NONE SEEN [facility] Comment on above: Performed By: #### C MP #### [facility] [address] [address] [address] Bob Nelson RBC NONE SEEN Abnormal 0-2 [facility] Comment on above: Performed By: #### C MP #### [facility] [address] [address] [address] Bob Nelson WBC NONE SEEN Normal NONE SEEN [facility] Comment on above: Performed By: #### C MP #### [facility] [address] [address] [address] Bob Nelson No Panel InformationOrdered By: Derek Burks on 04-12-2022 Semen Analysis Comment . [facility] Comment on above: NO SPERM SEEN CONFIR MED BY SECOND TECH/@KWJ&STEVAN Semen WBC Concentration <1.0 M/mL <0.9 [facility] Sperm % Non-Motile [facility] Comment on above: Test not performed Sperm Motility Total [facility] Comment on above: Test not performed Qualitative semen viscosityO rdered By: Derek Burks on 04-12-2022 Viscosity Ql (Jeanie) Normal Normal [facility] Semen Analysis, Fertilityon 04-12-2022 Immotile Sperm Not performed Normal [facility] Comment on above: Order Comment: Metho d of Collection:: Masturbation Has the patient had a vasectomy?: N Type of Specimen Container:: Sterile Container Abstinence Period:: 48 HRS Kept at body temperature?: Y Any Collection or Transport Problems?: NO Performed By: #### S EMCOMP #### [facility] [address] [place] [address] Non-Progression Sperm Motili Not performed Normal [facility] Comment on above: Order Comment: Metho d of Collection:: Masturbation Has the patient had a vasectomy?: N Type of Specimen Container:: Sterile Container Abstinence Period:: 48 HRS Kept at body temperature?: Y Any Collection or Transport Problems?: NO Performed By: #### S EMCOMP #### [address] Normal Sperm Morphology Not performed Normal >=4.0 [facility] Comment on above: Order Comment: Metho d of Collection:: Masturbation Has the patient had a vasectomy?: N Type of Specimen Container:: Sterile Container Abstinence Period:: 48 HRS Kept at body temperature?: Y Any Collection or Transport Problems?: NO Performed By: #### S EMCOMP #### [address] Rapid Progression Sperm Motili Not performed Normal [facility] Comment on above: Order Comment: Metho d of Collection:: Masturbation Has the patient had a vasectomy?: N Type of Specimen Container:: Sterile Container Abstinence Period:: 48 HRS Kept at body temperature?: Y Any Collection or Transport Problems?: NO Performed By: #### S EMCOMP #### [address] Semen Comment . Normal [facility] Comment on above: Order Comment: Metho d of Collection:: Masturbation Has the patient had a vasectomy?: N Type of Specimen Container:: Sterile Container Abstinence Period:: 48 HRS Kept at body temperature?: Y Any Collection or Transport Problems?: NO Result Comment: NO S PERM SEEN CONFIRMED BY SECOND TECH/@[facility] PERFORMED BY: [place] [address] PATHOLOGIST WHEEL ALIGNER CARLITA SEALS M.D. Performed By: #### S EMCOMP #### [address] Semen Liquefaction Normal Normal <=60 min [facility] Comment on above: Order Comment: Metho d of Collection:: Masturbation Has the patient had a vasectomy?: N Type of Specimen Container:: Sterile Container Abstinence Period:: 48 HRS Kept at body temperature?: Y Any Collection or Transport Problems?: NO Performed By: #### S EMCOMP #### [address] [place] [address] [place] Semen Viscosity Normal Normal Normal [facility] Comment on above: Order Comment: Metho d of Collection:: Masturbation Has the patient had a vasectomy?: N Type of Specimen Container:: Sterile Container Abstinence Period:: 48 HRS Kept at body temperature?: Y Any Collection or Transport Problems?: NO Performed By: #### S EMCOMP #### [facility] [address] Semen Volume 1.0 mL Low >=1.5 [facility] Comment on above: Order Comment: Metho d of Collection:: Masturbation Has the patient had a vasectomy?: N Type of Specimen Container:: Sterile Container Abstinence Period:: 48 HRS Kept at body temperature?: Y Any Collection or Transport Problems?: NO Performed By: #### S EMCOMP #### [address] Sperm Concentration <2.0 Low >=15 [facility] Comment on above: Order Comment: Metho d of Collection:: Masturbation Has the patient had a vasectomy?: N Type of Specimen Container:: Sterile Container Abstinence Period:: 48 HRS Kept at body temperature?: Y Any Collection or Transport Problems?: NO Result Comment: Suboptimal specimen. Unable to perform morphology testing. Performed By: #### S EMCOMP #### [address] Total Motility ([employer]) Not performed Normal >=40 ([employer]) [facility] Comment on above: Order Comment: Metho d of Collection:: Masturbation Has the patient had a vasectomy?: N Type of Specimen Container:: Sterile Container Abstinence Period:: 48 HRS Kept at body temperature?: Y Any Collection or Transport Problems?: NO Performed By: #### S EMCOMP #### [facility] [address] [place] [address] [place] WBC Concent, Semen <1.0 Normal <1.0 [facility] Comment on above: Order Comment: Metho d of Collection:: Masturbation Has the patient had a vasectomy?: N Type of Specimen Container:: Sterile Container Abstinence Period:: 48 HRS Kept at body temperature?: Y Any Collection or Transport Problems?: NO Performed By: #### S EMCOMP #### [facility] [address] Semen Analysis, FertilityOrd ered By: Derke Burks on 04-12-2022 Semen Appearance Normal Normal Normal [facility] Comment on above: Order Comment: Metho d of Collection:: Masturbation Has the patient had a vasectomy?: N Type of Specimen Container:: Sterile Container Abstinence Period:: 48 HRS Kept at body temperature?: Y Any Collection or Transport Problems?: NO Performed By: #### S EMCOMP #### [facility] [address] [place] [address] Semen pH 6.0 Low >=7.2 [facility] Comment on above: Order Comment: Metho d of Collection:: Masturbation Has the patient had a vasectomy?: N Type of Specimen Container:: Sterile Container Abstinence Period:: 48 HRS Kept at body temperature?: Y Any Collection or Transport Problems?: NO Performed By: #### S EMCOMP #### [facility] [address] [place] [address] Semen liquefaction time abhinav urementOrdered By: Derek Burks on 04-12-2022 Liquefaction (Jeanie) [Time] Normal <=60 min [facility] Semen volumeOrdered By: Celso Burks on 04-12-2022 Specimen volume (Jeanie) 1.0 mL >1.5 [facility] Sperm countOrdered By: Derek Burks on 04-12-2022 Spermatozoa (Jeanie) [#/Vol] <2.0 M/mL >15 [facility] Comment on above: Suboptimal specimen. Unable to perform morphology testing. Sperm morphologyOrdered By: Derek Burks on 04-12-2022 Spermatozoa Nom (Jeanie) TNP [facility] Comment on above: Test not performed LAMOTRIGINEon 04-09-2022 Lamotrigine, Serum 6.7 ug/mL Normal 2.0-20.0 [facility] Comment on above: Result Comment: Dete ction Limit = 1.0 Performed By: #### C BC #### [facility] [facility] [address] [place] [address] Dr. Bob Nelson LAMOTRIGINEon 03-02-2022 Lamotrigine, Serum 2.3 ug/mL Normal 2.0-20.0 [facility] Comment on above: Result Comment: Dete ction Limit = 1.0 Performed By: #### C MP #### [facility] [address] [place] [address] Dr. Bob Nelson OXCARBAZEPINEon 03-01-2022 Oxcarbazepine 5 ug/mL Critically low 10-35 [facility] Comment on above: Result Comment: This test was developed and its performance characteristics determined by [employer]. It has not been cleared or approved by the Food and Drug Administration. Detection Limit = 1 Performed By: #### B MP #### [facility] [address] [place] [address] Dr. Bob Nelson CBC AUTO DIFFon 02-28-2022 BASO # 0.0 103/ul Normal 0.0-0.1 [facility] Comment on above: Performed By: #### C MP #### [facility] [address] [place] [address] Dr. Bob Nelson Basophils/100 WBC (Bld) 0.5 % Normal 0.2-2.0 [facility] Comment on above: Performed By: #### C MP #### [facility] [address] [place] [address] Dr. Bob Nelson EO # 0.1 103/ul Normal 0.0-0.7 [facility] Comment on above: Performed By: #### C MP #### [facility] [address] [place] [address] Dr. Bob Nelson Eosinophils/100 WBC (Bld) 0.9 % Normal 0.9-7.0 [facility] Comment on above: Performed By: #### C MP #### [facility] [address] [place] [address] Dr. Bob Nelson Erythrocyte distribution width (RBC) [Ratio] 12.8 % Normal 11.0-15.0 [facility] Comment on above: Performed By: #### C MP #### [facility] [address] [place] [address] Dr. Bob Nelson Hematocrit (Bld) [Volume fraction] 43.8 % Normal 42.0-54.0 [facility] Comment on above: Performed By: #### C MP #### [facility] [address] [place] [address] Dr. Bob Nelson Hemoglobin (Bld) [Mass/Vol] 14.9 g/dL Normal 14.0-18.0 [facility] Comment on above: Performed By: #### C MP #### [facility] [address] [place] [address] Dr. Bob Nelson IG # 0.02 10e3/ul Normal 0.00-0.03 [facility] Comment on above: Performed By: #### C MP #### [facility] [address] [place] [address] Dr. Bob Nelsno IG % 0.3 % Normal 0.0-0.5 [facility] Comment on above: Performed By: #### C MP #### [facility] [address] [place] [address] Dr. Bob Nelson LYMPH # 2.2 103/ul Normal 1.2-3.8 [facility] Comment on above: Performed By: #### C MP #### [facility] [address] [place] [address] Dr. Bob Nelson Lymphocytes/100 WBC (Bld) 34.0 % Normal 20.5-60.0 [facility] Comment on above: Performed By: #### C MP #### [facility] [address] [place] [address] Dr. Bob Nelson MANUAL DIFF REQ NO Normal [facility] Comment on above: Performed By: #### C MP #### [facility] [address] [place] [address] Dr. Bob Nelson MCH (RBC) [Entitic mass] 28.4 pg Normal 25.9-34.0 [facility] Comment on above: Performed By: #### C MP #### [facility] [address] [address] [address] Bob Nelson MCHC (RBC) [Mass/Vol] 34.0 g/dL Normal 29.9-35.2 [facility] Comment on above: Performed By: #### C MP #### [facility] [address] [place] [address] Dr. Bob Nelson MCV (RBC) [Entitic vol] 83.6 fL Normal 80.0-94.0 [facility] Comment on above: Performed By: #### C MP #### [facility] [address] [place] [address] Dr. Bob Nelson MONO # 0.5 103/ul Normal 0.3-0.8 [facility] Comment on above: Performed By: #### C MP #### [facility] [address] [place] [address] Dr. Bob Nelson Monocytes/100 WBC (Bld) 7.9 % Normal 1.7-12.0 [facility] Comment on above: Performed By: #### C MP #### [facility] [address] [place] [address] Dr. Bob Nelson NEUT # 3.6 103/ul Normal 1.4-6.5 [facility] Comment on above: Performed By: #### C MP #### [facility] [address] [place] [address] Dr. Bob Nelson Neutrophils/100 WBC (Bld) 56.4 % Normal 43.0-75.0 [facility] Comment on above: Performed By: #### C MP #### [facility] [address] [place] [address] Dr. Bob Nelson Platelet mean volume (Bld) [Entitic vol] 9.5 fL Normal 9.5-13.5 [facility] Comment on above: Performed By: #### C MP #### [facility] [address] [place] [address] Dr. Bob Nelson PLT 192 103/ul Normal 150-450 [facility] Comment on above: Performed By: #### C MP #### [facility] [address] [place] [address] Dr. Bob Nelson RBC 5.24 106/ul Normal 4.70-6.10 [facility] Comment on above: Performed By: #### C MP #### [facility] [address] [place] [address] Dr. Bob Nelson WBC 6.4 103/ul Normal 4.0-11.0 [facility] Comment on above: Performed By: #### C MP #### [facility] [address] [place] [address] Dr. Bob Nelson PROF 14(COMP METB)on 022 Albumin [Mass/Vol] 3.9 g/dL Normal 3.4-5.0 [facility] Comment on above: Performed By: #### C MP #### [facility] [address] [place] [address] Dr. Bob Nelson Albumin/Globulin [Mass ratio] 1.3 {ratio} Normal [facility] Comment on above: Performed By: #### C MP #### [facility] [address] [place] [address] Dr. Bob Nelson ALP [Catalytic activity/Vol] 68 U/L Normal 46-116 [facility] Comment on above: Performed By: #### C MP #### [facility] [address] [place] [address] Dr. Bob Nelson ALT [Catalytic activity/Vol] 170 U/L Critically high 16-63 [facility] Comment on above: Performed By: #### C MP #### [facility] [address] [place] [address] Dr. Bob Nelson Anion gap [Moles/Vol] 11.0 mmol/L Normal [facility] Comment on above: Performed By: #### C MP #### [facility] [address] [place] [address] Dr. Bob Nelson AST [Catalytic activity/Vol] 48 U/L Critically high 15-37 [facility] Comment on above: Performed By: #### C MP #### [facility] [address] [address] [address] Bob Nelson Bilirubin [Mass/Vol] 0.6 mg/dL Normal 0.2-1.0 [facility] Comment on above: Performed By: #### C MP #### [facility] [address] [place] [address] Dr. Bob Nelson Calcium [Mass/Vol] 9.1 mg/dL Normal 8.5-10.1 [facility] Comment on above: Performed By: #### C MP #### [facility] [address] [place] [address] Dr. Bob Nelson Chloride [Moles/Vol] 105 mmol/L Normal 98-107 [facility] Comment on above: Performed By: #### C MP #### [facility] [address] [place] [address] Dr. Bob Nelson CO2 [Moles/Vol] 28.9 mmol/L Normal 21.0-32.0 [facility] Comment on above: Performed By: #### C MP #### [facility] [address] [place] [address] Dr. Bob Nelson Creatinine [Mass/Vol] 0.96 mg/dL Normal 0.70-1.30 [facility] Comment on above: Performed By: #### C MP #### [facility] [address] [place] [address] Dr. Bob Nelson EGFR-AF JORDANIAN >60 Normal >=60 [facility] Comment on above: Performed By: #### C MP #### [facility] [address] [place] [address] Dr. Bob Nelson EGFR-NON AF JORDANIAN >60 Normal >=60 [facility] Comment on above: Performed By: #### C MP #### [facility] [address] [place] [address] Dr. Bob Nelson Globulin (S) [Mass/Vol] 3.0 g/dL Normal [facility] Comment on above: Performed By: #### C MP #### [facility] [address] [place] [address] Dr. Bob Nelson Glucose [Mass/Vol] 98 mg/dL Normal 74-106 [facility] Comment on above: Performed By: #### C MP #### [facility] [address] [address] [address] Bob Nelson Potassium [Moles/Vol] 3.9 mmol/L Normal 3.5-5.1 [facility] Comment on above: Performed By: #### C MP #### [facility] [address] [place] [address] Dr. Bob Nelson Protein [Mass/Vol] 6.9 g/dL Normal 6.4-8.2 [facility] Comment on above: Performed By: #### C MP #### [facility] [address] [place] [address] Dr. Bob Nelson Sodium [Moles/Vol] 141 mmol/L Normal 136-145 [facility] Comment on above: Performed By: #### C MP #### [facility] [address] [place] [address] Dr. Bob Nelson Urea nitrogen [Mass/Vol] 14.0 mg/dL Normal 7.0-18.0 [facility] Comment on above: Performed By: #### C MP #### [facility] [address] [place] [address] Dr. Bob Nelson Urea nitrogen/Creatinine [Mass ratio] 14.6 mg/mg Normal [facility] Comment on above: Performed By: #### C MP #### [facility] [address] [place] [address] Dr. Bob Nelson CBC AUTO DIFFon 02-27-2022 BASO # 0.0 103/ul Normal 0.0-0.1 [facility] Comment on above: Performed By: #### B MP #### [facility] [address] [place] [address] Dr. Bob Nelson Basophils/100 WBC (Bld) 0.5 % Normal 0.2-2.0 [facility] Comment on above: Performed By: #### B MP #### [facility] [address] [place] [address] Dr. Bob Nelson EO # 0.1 103/ul Normal 0.0-0.7 [facility] Comment on above: Performed By: #### B MP #### [facility] [address] [place] [address] Dr. Bob Nelson Eosinophils/100 WBC (Bld) 0.6 % Critically low 0.9-7. 0 [facility] Comment on above: Performed By: #### B MP #### [facility] [address] [place] [address] Dr. Bob Nelson Erythrocyte distribution width (RBC) [Ratio] 12.5 % Normal 11.0-15.0 [facility] Comment on above: Performed By: #### B MP #### [facility] [address] [place] [address] Dr. Bob Nelson Hematocrit (Bld) [Volume fraction] 46.1 % Normal 42.0-54.0 [facility] Comment on above: Performed By: #### B MP #### [facility] [address] [place] [address] Dr. Bob Nelson Hemoglobin (Bld) [Mass/Vol] 16.1 g/dL Normal 14.0-18.0 [facility] Comment on above: Performed By: #### B MP #### [facility] [address] [place] [address] Dr. Bob Nelson IG # 0.02 10e3/ul Normal 0.00-0.03 [facility] Comment on above: Performed By: #### B MP #### [facility] [address] [place] [address] Dr. Bob Nelson IG % 0.3 % Normal 0.0-0.5 [facility] Comment on above: Performed By: #### B MP #### [facility] [address] [place] [address] Dr. Bob Nelson LYMPH # 1.3 103/ul Normal 1.2-3.8 [facility] Comment on above: Performed By: #### B MP #### [facility] [address] [place] [address] Dr. Bob Nelson Lymphocytes/100 WBC (Bld) 16.2 % Critically low 20.5-6 0.0 [facility] Comment on above: Performed By: #### B MP #### [facility] [address] [place] [address] Dr. Bob Nelson MANUAL DIFF REQ NO Normal [facility] Comment on above: Performed By: #### B MP #### [facility] [address] [place] [address] Dr. Bob Nelson MCH (RBC) [Entitic mass] 28.6 pg Normal 25.9-34.0 [facility] Comment on above: Performed By: #### B MP #### [facility] [address] [place] [address] Dr. Bob Nelson MCHC (RBC) [Mass/Vol] 34.9 g/dL Normal 29.9-35.2 [facility] Comment on above: Performed By: #### B MP #### [facility] [address] [place] [address] Dr. Bob Nelson MCV (RBC) [Entitic vol] 81.9 fL Normal 80.0-94.0 [facility] Comment on above: Performed By: #### B MP #### [facility] [address] [place] [address] Dr. Bob Nelson MONO # 0.4 103/ul Normal 0.3-0.8 [facility] Comment on above: Performed By: #### B MP #### [facility] [address] [place] [address] Dr. Bob Nelson Monocytes/100 WBC (Bld) 5.0 % Normal 1.7-12.0 [facility] Comment on above: Performed By: #### B MP #### [facility] [address] [place] [address] Dr. Bob Nelson NEUT # 6.1 103/ul Normal 1.4-6.5 [facility] Comment on above: Performed By: #### B MP #### [facility] [address] [place] [address] Dr. Bob Nelson Neutrophils/100 WBC (Bld) 77.4 % Critically high 43.0- 75.0 [facility] Comment on above: Performed By: #### B MP #### [facility] [address] [address] [address] Bob Nelson Platelet mean volume (Bld) [Entitic vol] 9.5 fL Normal 9.5-13.5 [facility] Comment on above: Performed By: #### B MP #### [facility] [address] [address] [address] Bob Nelson PLT 203 103/ul Normal 150-450 [facility] Comment on above: Performed By: #### B MP #### [facility] [address] [address] [address] Bob Nelson RBC 5.63 106/ul Normal 4.70-6.10 [facility] Comment on above: Performed By: #### B MP #### [facility] [address] [place] [address] Dr. Bob Nelson WBC 7.9 103/ul Normal 4.0-11.0 [facility] Comment on above: Performed By: #### B MP #### [facility] [address] [place] [address] HEAD WO CONon [...] CHERI CONNER Date: 2022-02-27 15:43 Normal [facility] Covid-19 PCR (CVDTBH)on SARS-CoV-2 (COVID-19) RNA MAHESH+probe Ql (Unsp spec) Not detected Normal NOT DETECTED [facility] Comment on above: Result Comment: When [...] for this test is supported by the [employer] of [employer] and Human Service's declaration that [...] used). Performed By: #### C MP #### [facility] [address] [place] [address] Dr. Bob Nelson LACTATE/LACTIC ACIDon 2021 Lactate [Moles/Vol] 0.9 mmol/L Normal 0.4-1.9 [facility] Comment on above: Performed By: #### L ACT #### [facility] [address] [place] [address] Dr. Bob Nelson Lactate [Moles/Vol] 3.9 mmol/L Critically high 0.4-1.9 [facility] Comment on above: Performed By: #### B MP #### [facility] [address] [place] [address] Dr. Bob Nelson PROF CHEM 8 (BAS METB)on Anion gap [Moles/Vol] 16.1 mmol/L Normal [facility] Comment on above: Performed By: #### B MP #### [facility] [address] [place] [address] Dr. Bob Nelson Calcium [Mass/Vol] 8.9 mg/dL Normal 8.5-10.1 [facility] Comment on above: Performed By: #### B MP #### [facility] [address] [address] [address] Bob Nelson Chloride [Moles/Vol] 99 mmol/L Normal 98-107 [facility] Comment on above: Performed By: #### B MP #### [facility] [address] [address] [address] Bob Nelson CO2 [Moles/Vol] 24.0 mmol/L Normal 21.0-32.0 [facility] Comment on above: Performed By: #### B MP #### [facility] [address] [address] [address] Bob Nelson Creatinine [Mass/Vol] 1.13 mg/dL Normal 0.70-1.30 [facility] Comment on above: Performed By: #### B MP #### [facility] [address] [place] [address] Dr. Bob Nelson EGFR-AF JORDANIAN >60 Normal >=60 [facility] Comment on above: Performed By: #### B MP #### [facility] [address] [place] [address] Dr. Bob Nelson EGFR-NON AF JORDANIAN >60 Normal >=60 [facility] Comment on above: Performed By: #### B MP #### [facility] [address] [place] [address] Dr. Bob Nelson Glucose [Mass/Vol] 158 mg/dL Critically high 74-106 [facility] Comment on above: Performed By: #### B MP #### [facility] [address] [place] [address] Dr. Bob Nelson Potassium [Moles/Vol] 4.1 mmol/L Normal 3.5-5.1 [facility] Comment on above: Performed By: #### B MP #### [facility] [address] [place] [address] Dr. Bob Nelson Sodium [Moles/Vol] 135 mmol/L Critically low 136-145 [facility] Comment on above: Performed By: #### B MP #### [facility] [address] [place] [address] Dr. Bob Nelson Urea nitrogen [Mass/Vol] 15.0 mg/dL Normal 7.0-18.0 [facility] Comment on above: Performed By: #### B MP #### [facility] [address] [place] [address] Dr. Bbo Nelson Urea nitrogen/Creatinine [Mass ratio] 13.3 mg/mg Normal [facility] Comment on above: Performed By: #### B MP #### [facility] [address] [place] [address] Dr. Bob Nelson UA (CLEAN/CATCH) CONTINUING EDUCATION DIRECTOR/MICRO I F IND.on 02-27-2022 Bilirubin Ql (U) Negative Normal NEGATIVE [facility] Comment on above: Performed By: #### C MP #### [facility] [address] [place] [address] Dr. Bob Nelson Clarity (U) CLEAR Normal CLEAR [facility] Comment on above: Performed By: #### C MP #### [facility] [address] [place] [address] Dr. Bob Nelson Color (U) LT. YELLOW Normal YELLOW [facility] Comment on above: Performed By: #### C MP #### [facility] [address] [place] [address] Dr. Bob Nelson Glucose Ql (U) Negative Normal NEGATIVE [facility] Comment on above: Performed By: #### C MP #### [facility] [address] [place] [address] Dr. Bob Nelson Hemoglobin Ql (U) TRACE-INTACT Abnormal NEGATIVE [facility] Comment on above: Performed By: #### C MP #### [facility] [address] [place] [address] Dr. Bob Nelson Ketones Ql (U) Negative Normal NEGATIVE [facility] Comment on above: Performed By: #### C MP #### [facility] [address] [place] [address] Dr. Bob Nelson LEUKOCYTES Negative Normal NEGATIVE [facility] Comment on above: Performed By: #### C MP #### [facility] [address] [place] [address] Dr. Bob Nelson Nitrite Ql (U) Negative Normal NEGATIVE [facility] Comment on above: Performed By: #### C MP #### [facility] [address] [place] [address] Dr. Bob Nelson pH (U) 5.5 [pH] Normal 5-9 [facility] Comment on above: Performed By: #### C MP #### [facility] [address] [place] [address] Dr. Bob Nelson SPEC GRAVITY 1.010 Normal 1.005-<=1.0 25 [facility] Comment on above: Performed By: #### C MP #### [facility] [address] [place] [address] Dr. Bob Nelson UA PROTEIN Negative Normal NEGATIVE/ TRACE [facility] Comment on above: Performed By: #### C MP #### [facility] [address] [place] [address] Dr. Bob Nelson UR MICRO IND INDICATED Normal [facility] Comment on above: Performed By: #### C MP #### [facility] [address] [place] [address] Dr. Bob Nelson Urobilinogen Qn (U) 0.2 {Lance'U}/dL Normal 0.2 - 1. 0 [facility] Comment on above: Performed By: #### C MP #### [facility] [address] [place] [address] Dr. Bob Nelson URINE MICROSCOPIC ONLYon BACTERIA NONE SEEN Normal NONE SEEN [facility] Comment on above: Performed By: #### C MP #### [facility] [address] [place] [address] Dr. Bob Nelson Bacteria identified Cx Nom (U) NOT INDICATED Normal [facility] Comment on above: Performed By: #### C MP #### [facility] [address] [place] [address] Dr. Bob Nelson CAST NONE SEEN Normal NONE SEEN [facility] Comment on above: Performed By: #### C MP #### [facility] [address] [address] [address] oBb Nelson Crystals LM Nom (Urine sed) NONE SEEN Normal NONE SEEN [facility] Comment on above: Performed By: #### C MP #### [facility] [address] [place] [address] Dr. Bob Nelson Epithelial cells LM Ql (Urine sed) RARE Normal NONE SEEN /RARE [facility] Comment on above: Performed By: #### C MP #### [facility] [address] [place] [address] Dr. Bob Nelson MUCOUS NONE SEEN Normal NONE SEEN [facility] Comment on above: Performed By: #### C MP #### [facility] [address] [place] [address] Dr. Bob Nelson RBC 0-2 Normal 0-2 [facility] Comment on above: Performed By: #### C MP #### [facility] [address] [place] [address] Dr. Bob Nelson WBC NONE SEEN Normal NONE SEEN [facility] Comment on above: Performed By: #### C MP #### [facility] [address] [place] [address] Dr. Bob Nelson XR CHEST 2 Von [...] CHERI CONNER Date: 2022-02-27 15:45 Normal [facility] CBC AUTO DIFFon 02-02-2022 BASO # 0.0 103/ul Normal 0.0-0.1 [facility] Comment on above: Performed By: #### C MP #### [facility] [facility] [address] [place] [address] Dr. Bob Nelson Basophils/100 WBC (Bld) 0.2 % Normal 0.2-2.0 [facility] Comment on above: Performed By: #### C MP #### [facility] [address] [place] [address] Dr. Bob Nelson EO # 0.1 103/ul Normal 0.0-0.7 [facility] Comment on above: Performed By: #### C MP #### [facility] [address] [place] [address] Dr. Bob Nelson Eosinophils/100 WBC (Bld) 0.7 % Critically low 0.9-7. 0 [facility] Comment on above: Performed By: #### C MP #### [facility] [address] [place] [address] Dr. Bob Nelson Erythrocyte distribution width (RBC) [Ratio] 12.4 % Normal 11.0-15.0 [facility] Comment on above: Performed By: #### C MP #### [facility] [address] [place] [address] Dr. Bob Nelson Hematocrit (Bld) [Volume fraction] 46.1 % Normal 42.0-54.0 [facility] Comment on above: Performed By: #### C MP #### [facility] [address] [place] [address] Dr. Bob Nelson Hemoglobin (Bld) [Mass/Vol] 16.0 g/dL Normal 14.0-18.0 [facility] Comment on above: Performed By: #### C MP #### [facility] [address] [place] [address] Dr. Bob Nelson IG # 0.03 10e3/ul Normal 0.00-0.03 [facility] Comment on above: Performed By: #### C MP #### [facility] [address] [place] [address] Dr. Bob Nelson IG % 0.3 % Normal 0.0-0.5 [facility] Comment on above: Performed By: #### C MP #### [facility] [address] [place] [address] Dr. Bob Nelson LYMPH # 1.5 103/ul Normal 1.2-3.8 [facility] Comment on above: Performed By: #### C MP #### [facility] [address] [address] [address] Bob Nelson Lymphocytes/100 WBC (Bld) 16.0 % Critically low 20.5-6 0.0 [facility] Comment on above: Performed By: #### C MP #### [facility] [address] [address] [address] Bob Nelson MANUAL DIFF REQ NO Normal [facility] Comment on above: Performed By: #### C MP #### [facility] [address] [address] [address] Bob Nelson MCH (RBC) [Entitic mass] 28.6 pg Normal 25.9-34.0 [facility] Comment on above: Performed By: #### C MP #### [facility] [address] [place] [address] Dr. Bob Nelson MCHC (RBC) [Mass/Vol] 34.7 g/dL Normal 29.9-35.2 [facility] Comment on above: Performed By: #### C MP #### [facility] [address] [place] [address] Dr. Bob Nelson MCV (RBC) [Entitic vol] 82.5 fL Normal 80.0-94.0 [facility] Comment on above: Performed By: #### C MP #### [facility] [address] [place] [address] Dr. Bob Nelson MONO # 0.6 103/ul Normal 0.3-0.8 [facility] Comment on above: Performed By: #### C MP #### [facility] [address] [place] [address] Dr. Bob Nelson Monocytes/100 WBC (Bld) 5.7 % Normal 1.7-12.0 [facility] Comment on above: Performed By: #### C MP #### [facility] [address] [place] [address] Dr. Bob Nelson NEUT # 7.4 103/ul Critically high 1.4-6.5 [facility] Comment on above: Performed By: #### C MP #### [facility] [address] [address] [address] Bob Nelson Neutrophils/100 WBC (Bld) 77.1 % Critically high 43.0- 75.0 [facility] Comment on above: Performed By: #### C MP #### [facility] [address] [address] [address] Bob Nelson Platelet mean volume (Bld) [Entitic vol] 9.3 fL Critically low 9.5-13.5 [facility] Comment on above: Performed By: #### C MP #### [facility] [address] [address] [address] Bob Nelson PLT 184 103/ul Normal 150-450 [facility] Comment on above: Performed By: #### C MP #### [facility] [address] [place] [address] Dr. Bob Nelson RBC 5.59 106/ul Normal 4.70-6.10 [facility] Comment on above: Performed By: #### C MP #### [facility] [address] [place] [address] Dr. Bob Nelson WBC 9.6 103/ul Normal 4.0-11.0 [facility] Comment on above: Performed By: #### C MP #### [facility] [address] [place] [address] Dr. Bob Nelson PROF 14(COMP METB)on 022 Albumin [Mass/Vol] 4.3 g/dL Normal 3.4-5.0 [facility] Comment on above: Performed By: #### C BC #### [facility] [address] [place] [address] Dr. Bob Nelson Albumin/Globulin [Mass ratio] 1.3 {ratio} Normal [facility] Comment on above: Performed By: #### C BC #### [facility] [address] [place] [address] Dr. Bob Nelson ALP [Catalytic activity/Vol] 86 U/L Normal 46-116 [facility] Comment on above: Performed By: #### C BC #### [facility] [address] [address] [address] Bob Nelson ALT [Catalytic activity/Vol] 87 U/L Critically high 16-63 [facility] Comment on above: Performed By: #### C BC #### [facility] [address] [address] [address] Bob Nelson Anion gap [Moles/Vol] 11.9 mmol/L Normal [facility] Comment on above: Performed By: #### C BC #### [facility] [address] [address] [address] Bob Nelson AST [Catalytic activity/Vol] 44 U/L Critically high 15-37 [facility] Comment on above: Performed By: #### C BC #### [facility] [address] [place] [address] Dr. Bob Nelson Bilirubin [Mass/Vol] 0.3 mg/dL Normal 0.2-1.0 [facility] Comment on above: Performed By: #### C BC #### [facility] [address] [place] [address] Dr. Bob Nelson Calcium [Mass/Vol] 9.3 mg/dL Normal 8.5-10.1 [facility] Comment on above: Performed By: #### C BC #### [facility] [address] [place] [address] Dr. Bob Nelson Chloride [Moles/Vol] 102 mmol/L Normal 98-107 [facility] Comment on above: Performed By: #### C BC #### [facility] [address] [address] [address] Bob Nelson CO2 [Moles/Vol] 27.8 mmol/L Normal 21.0-32.0 [facility] Comment on above: Performed By: #### C BC #### [facility] [address] [place] [address] Dr. Bob Nelson Creatinine [Mass/Vol] 1.16 mg/dL Normal 0.70-1.30 [facility] Comment on above: Performed By: #### C BC #### [facility] [address] [address] [address] Bob Nelson EGFR-AF JORDANIAN >60 Normal >=60 [facility] Comment on above: Performed By: #### C BC #### [facility] [address] [address] [address] Bob Nelson EGFR-NON AF JORDANIAN >60 Normal >=60 [facility] Comment on above: Performed By: #### C BC #### [facility] [address] [address] [address] Bob Nelson Globulin (S) [Mass/Vol] 3.3 g/dL Normal [facility] Comment on above: Performed By: #### C BC #### [facility] [address] [place] [address] Dr. Bob Nelson Glucose [Mass/Vol] 112 mg/dL Critically high 74-106 [facility] Comment on above: Performed By: #### C BC #### [facility] [address] [place] [address] Dr. Bob Nelson Potassium [Moles/Vol] 3.7 mmol/L Normal 3.5-5.1 [facility] Comment on above: Performed By: #### C BC #### [facility] [address] [place] [address] Dr. Bob Nelson Protein [Mass/Vol] 7.6 g/dL Normal 6.4-8.2 [facility] Comment on above: Performed By: #### C BC #### [facility] [address] [place] [address] Dr. Bob Nelson Sodium [Moles/Vol] 138 mmol/L Normal 136-145 [facility] Comment on above: Performed By: #### C BC #### [facility] [address] [place] [address] Dr. Bob Nelson Urea nitrogen [Mass/Vol] 11.0 mg/dL Normal 7.0-18.0 [facility] Comment on above: Performed By: #### C BC #### [facility] [address] [place] [address] Dr. Bob Nelson Urea nitrogen/Creatinine [Mass ratio] 9.5 mg/mg Normal [facility] Comment on above: Performed By: #### C #### [facility] [address] [address] [address] Bob Nelson Progress Noteson 02-02-2022 [employer] Authentication Interface Message Text EMERGENCY TRIAGE, TREAT [...] Completed by: Maritza Romo MD Normal [facility] [employer] [facility] CBC AUTO DIFFon 12-30-2021 BASO # 0.0 103/ul Normal 0.0-0.1 [facility] Comment on above: Performed By: #### C BC #### [facility] [address] [place] [address] Dr. Bob Nelson Basophils/100 WBC (Bld) 0.6 % Normal 0.2-2.0 [facility] Comment on above: Performed By: #### C BC #### [facility] [address] [place] [address] Dr. Bob Nelson EO # 0.0 103/ul Normal 0.0-0.7 [facility] Comment on above: Performed By: #### C BC #### [facility] [address] [place] [address] Dr. Bob Nelson Eosinophils/100 WBC (Bld) 0.6 % Critically low 0.9-7. 0 [facility] Comment on above: Performed By: #### C BC #### [facility] [address] [place] [address] Dr. Bob Nelson Erythrocyte distribution width (RBC) [Ratio] 12.3 % Normal 11.0-15.0 [facility] Comment on above: Performed By: #### C BC #### [facility] [address] [place] [address] Dr. Bob Nelson Hematocrit (Bld) [Volume fraction] 48.5 % Normal 42.0-54.0 [facility] Comment on above: Performed By: #### C BC #### [facility] [address] [place] [address] Dr. Bob Nelson Hemoglobin (Bld) [Mass/Vol] 16.1 g/dL Normal 14.0-18.0 [facility] Comment on above: Performed By: #### C BC #### [facility] [address] [place] [address] Dr. Bob Nelson IG # 0.03 10e3/ul Normal 0.00-0.03 [facility] Comment on above: Performed By: #### C BC #### [facility] [address] [place] [address] Dr. Bob Nelson IG % 0.4 % Normal 0.0-0.5 [facility] Comment on above: Performed By: #### C BC #### [facility] [address] [place] [address] Dr. Bob Nelson LYMPH # 2.2 103/ul Normal 1.2-3.8 [facility] Comment on above: Performed By: #### C BC #### [facility] [address] [place] [address] Dr. Bob Nelson Lymphocytes/100 WBC (Bld) 30.6 % Normal 20.5-60.0 [facility] Comment on above: Performed By: #### C BC #### [facility] [address] [place] [address] Dr. Bob Nelson MANUAL DIFF REQ NO Normal [facility] Comment on above: Performed By: #### C BC #### [facility] [address] [place] [address] Dr. Bob Nelson MCH (RBC) [Entitic mass] 28.1 pg Normal 25.9-34.0 [facility] Comment on above: Performed By: #### C BC #### [facility] [address] [place] [address] Dr. Bob Nelson MCHC (RBC) [Mass/Vol] 33.2 g/dL Normal 29.9-35.2 [facility] Comment on above: Performed By: #### C BC #### [facility] [address] [place] [address] Dr. Bob Nelson MCV (RBC) [Entitic vol] 84.6 fL Normal 80.0-94.0 [facility] Comment on above: Performed By: #### C BC #### [facility] [address] [place] [address] Dr. Bob Nelson MONO # 0.4 103/ul Normal 0.3-0.8 [facility] Comment on above: Performed By: #### C BC #### [facility] [address] [place] [address] Dr. Bob Nelson Monocytes/100 WBC (Bld) 6.1 % Normal 1.7-12.0 [facility] Comment on above: Performed By: #### C BC #### [facility] [address] [place] [address] Dr. Bob Nelson NEUT # 4.4 103/ul Normal 1.4-6.5 [facility] Comment on above: Performed By: #### C BC #### [facility] [address] [place] [address] Dr. Bob Nelson Neutrophils/100 WBC (Bld) 61.7 % Normal 43.0-75.0 [facility] Comment on above: Performed By: #### C BC #### [facility] [address] [place] [address] Dr. Bob Nelson Platelet mean volume (Bld) [Entitic vol] 9.5 fL Normal 9.5-13.5 [facility] Comment on above: Performed By: #### C BC #### [facility] [address] [place] [address] Dr. Bob Nelson PLT 228 103/ul Normal 150-450 [facility] Comment on above: Performed By: #### C BC #### [facility] [address] [place] [address] Dr. Bob Nelson RBC 5.73 106/ul Normal 4.70-6.10 [facility] Comment on above: Performed By: #### C BC #### [facility] [address], [place] [address] Dr. Bob Nelson WBC 7.2 103/ul Normal 4.0-11.0 [facility] Comment on above: Performed By: #### C BC #### [facility] [address] [place], [place] [address] CSPINE WO CONon CT CSPINE WO CON EXAMINATION: CT CSPINE [...] TRINITY KING Date: 2021-12-30 20:14 Normal [facility] CT HEAD WO CONon 12-30-2021 CT [...] ERNESTO GIRON Date: 2021-12-30 20:37 Normal [facility] PROF CHEM 8 (BAS METB)on Anion gap [Moles/Vol] 24.1 mmol/L Normal [facility] Comment on above: Performed By: #### B MP #### [facility] [address] [place] [address] Dr. Bob Nelson Calcium [Mass/Vol] 9.3 mg/dL Normal 8.5-10.1 [facility] Comment on above: Performed By: #### B MP #### [facility] [address] [place] [address] Dr. Bob Nelson Chloride [Moles/Vol] 101 mmol/L Normal 98-107 [facility] Comment on above: Performed By: #### B MP #### [facility] [address] [place] [address] Dr. Bob Nelson CO2 [Moles/Vol] 16.9 mmol/L Critically low 21.0-32.0 [facility] Comment on above: Performed By: #### B MP #### [facility] [address] [place] [address] Dr. Bob Nelson Creatinine [Mass/Vol] 1.13 mg/dL Normal 0.70-1.30 [facility] Comment on above: Performed By: #### B MP #### [facility] [address] [place] [address] Dr. Bob Nelson EGFR-AF JORDANIAN >60 Normal >=60 [facility] Comment on above: Performed By: #### B MP #### [facility] [address] [place] [address] Dr. Bob Nelson EGFR-NON AF JORDANIAN >60 Normal >=60 [facility] Comment on above: Performed By: #### B MP #### [facility] [address] [place] [address] Dr. Bob Nelson Glucose [Mass/Vol] 107 mg/dL Critically high 74-106 [facility] Comment on above: Performed By: #### B MP #### [facility] [address] [address] [address] Bob Nelson Potassium [Moles/Vol] 4.0 mmol/L Normal 3.5-5.1 [facility] Comment on above: Performed By: #### B MP #### [facility] [address] [address] [address] Bob Nelson Sodium [Moles/Vol] 138 mmol/L Normal 136-145 [facility] Comment on above: Performed By: #### B MP #### [facility] [address] [address] [address] Bob Nelson Urea nitrogen [Mass/Vol] 14.0 mg/dL Normal 7.0-18.0 [facility] Comment on above: Performed By: #### B MP #### [facility] [address] [address] [address] Bob Nelson Urea nitrogen/Creatinine [Mass ratio] 12.4 mg/mg Normal [facility] Comment on above: Performed By: #### B MP #### [facility] [address] [address] [address] Bob Nelson ELECTROENCEPHALOGRAMon 11-[address] [id number] ELECTROENCEPHALOGRAM REPORT PATIENT NAME: COREY ALONSO : 1995 MED REC NO: [id number] ROOM: ACCOUNT NO: [id number] ADMIT DATE: 11/28/2021 PROVIDER: Brian Granado DATE [...] focal slowing or epileptiform activity. BRIAN GRANADO FLORECITA/[email or web address] Doc#: [id number] CC: Emeli Chi, Gege Normal [facility] MRI BRAIN WO CONTRASTon 05-0 MRI BRAIN WO CONTRAST EXAMINATION: MRI OF THE BRAIN WITHOUT CONTRAST 11/28/2021 9:44 am TECHNIQUE: Multiplanar multisequence MRI of the brain was performed without the administration of intravenous contrast. COMPARISON: None HISTORY: ORDERING SYSTEM PROVIDED HISTORY: Partial symptomatic epilepsy with complex partial seizures, intractable, without status epilepticus ([facility]) TECHNOLOGIST PROVIDED HISTORY: epilepsy What is [...] Anjali Lozoya MD 11/28/21 Final result Normal [facility] ANES POSTPROC EVALon 022 ANES POSTPROC EVAL HNO ID: [id number] Author: Tung Macias MD Service: Anesthesiology Author Type: Anesthesiologist Type: Anesthesia Postprocedure Evaluation Filed: 09/01/2021 6:31 AM Note Text: POST ANESTHESIA EVALUATION NOTE : 1995 Procedure Summary Date: 08/31/21 Room / Location: [address] / [facility] Anesthesia Start: 1303 Anesthesia Stop: [...] September 01, 2021 TIME: 6:31 AM CSN: [id number] [facility] ANES PRE-OPon 08-31-2021 ANES PRE-OP HNO ID: [id number] Author: Tung Macias MD Service: Anesthesiology Author Type: Anesthesiologist Type: Anesthesia Preprocedure Evaluation Filed: 08/31/2021 12:08 PM Note Text: ANESTHESIOLOGY DAY OF SURGERY NOTE : 1995 Procedure Information Date/Time: 08/31/21 1215 Procedure: CYSTOURETHROSCOPY W/ INCISION OF EJACULATORY DUCTS (Right Urethra) Location: [facility] / [facility] Surgeons: Domi Scrugsg MD Estimated body mass index is 24.78 [...] August 31, 2021 TIME: 12:08 PM CSN: [id number] [facility] OPERATIVE NOon 08-31-2021 OPERATIVE NO HNO ID: [id number] Author: Domi Scruggs MD Service: Urology Author Type: Physician Type: Operative Report Filed: 08/31/2021 3:22 PM Note Text: [facility] UROLOGY OPERATIVE REPORT Patient Name: Corey Alonso III Patient Log ID: [id number] Surgery Date: 08/31/2021 Incision/Procedure Start Time: 1:17 PM Incision Close/Procedure End Time: 1:47 PM Surgeon(s) and President And Chief Operating Officer(s): Surgeon(s) and Role: * Domi Scruggs MD [...] stricture was dilated using a series of [place] Sounds to 28Fr. The scope then passed [...] made to terminate the procedure. An 18Fr [place] tip catheter was inserted over a solo wire and used to drain the bladder. 10cc was added to the balloon. The patient tolerated the procedure well and was taken to the recovery area in stable condition. Estimated Blood Loss 5mL Specimens * No specimens in log * Implantable Devices None Drains 1. 18Fr [place] tip Leal (10cc in balloon) Complications None Accidental perforations or lacerations None The primary surgeon performed the procedure with assistance from the resident Dictated by Won Huerta MD, PhD on behalf of Domi Scruggs MD Normal [facility] CARDIAC SHARON ADMITon 017 CKMB 1.27 ng/mL Normal <=2.37 [facility] Comment on above: Performed By: #### B MP, LIPA, LIVER, CMADM ####[facility] [address] [place] Creatine kinase (CK) 79 U/L Normal 55-170 [facility] Comment on above: Performed By: #### B MP, LIPA, LIVER, CMADM ####[facility] [address] [place] INR Coag RelTime (Bld) SEE BELOW Normal [facility] Comment on above: Result Comment: <0.0 34 ng/ml NEGATIVE 0.034-0.119 INDETERMINATE 0.120 AMI CUT OFF Performed By: #### B MP, LIPA, LIVER, CMADM ####[facility] [address] [place] [address] [place] JOSH 36.0 ng/mL Normal <=121.0 [facility] Comment on above: Performed By: #### B MP, LIPA, LIVER, CMADM ####[facility] [address] [place] TROP <0.012 Normal <=0.034 [facility] Comment on above: Performed By: #### B MP, LIPA, LIVER, CMADM ####[facility] [address] [place] CBC AUTO DIFFon 05-03-2017 Basophils Auto #/vol (Bld) 0.0 103/ul Normal 0.0-0.1 [facility] Comment on above: Performed By: #### C BC ####[facility] [address] [place] [address] [place] Basophils/100 WBC Auto (Bld) 0.7 % Normal 0.2-2.0 [facility] Comment on above: Performed By: #### C BC ####[facility] [address] [id number] Eosinophils 0.1 103/ul Normal 0.0-0.7 [facility] Comment on above: Performed By: #### C BC ####[facility] [address] [id number] Eosinophils/100 leukocytes 1.1 % Normal 0.9-7.0 [facility] Comment on above: Performed By: #### C BC ####[facility] [address] [place] Erythrocyte distribution width Auto Ratio (RBC) 12.8 % Normal 11.0-15.0 [facility] Comment on above: Performed By: #### C BC ####[facility] [address] [place] [address] [place] Erythrocytes (RBC) 4.96 106/ul Normal 4.70-6.10 [facility] Comment on above: Performed By: #### C BC ####[facility] [address] [place], [place] [id number] Hematocrit (HCT) 40.6 % Critically low 42.0-54.0 [facility] Comment on above: Performed By: #### C BC ####[facility] [address] [place] [address] [place] Hemoglobin mass conc (Bld) 14.1 g/dL Normal 14.0-18.0 [facility] Comment on above: Performed By: #### C BC ####[facility] [address] [place], [place] [id number] IG # 0.03 10e3/ul Normal 0.00-0.03 [facility] Comment on above: Performed By: #### C BC ####[facility] [address] [place] [address] [place] IG % 0.5 % Normal 0.0-0.5 [facility] Comment on above: Performed By: #### C BC ####[facility] [address]76 [address] [place] Lymphocytes 1.7 103/ul Normal 1.2-3.8 [facility] Comment on above: Performed By: #### C BC ####[facility] Rxwjjvqknl4789 [address] [place] Lymphocytes/100 leukocytes 30.6 % Normal 20.5-60.0 [facility] Comment on above: Performed By: #### C BC ####[facility] Bjkruyrqoy6624 [address] [place] MANUAL DIFF REQ NO Normal [facility] Comment on above: Performed By: #### C BC ####[facility] Yxuzdygxzq2231 [address] [place] MCH 28.4 pg Normal 25.9-34.0 [facility] Comment on above: Performed By: #### C BC ####[facility] Pkcjorgznx8898 [address] [place] MCHC mass conc (RBC) 34.7 g/dL Normal 29.9-35.2 [facility] Comment on above: Performed By: #### C BC ####[facility] Fidddlainf8158 [address] [place] MCV 81.9 fL Normal 80.0-94.0 [facility] Comment on above: Performed By: #### C BC ####[facility] Jvcikksytt4223 [address] [place] Monocytes 0.3 103/ul Normal 0.3-0.8 [facility] Comment on above: Performed By: #### C BC ####[facility] Rshpjcwgne9023 [address] [place] Monocytes/100 leukocytes 5.7 % Normal 1.7-12.0 [facility] Comment on above: Performed By: #### C BC ####[facility] Vjjxnvyslh8719 [address] [place] Neutrophils 3.5 103/ul Normal 1.4-6.5 [facility] Comment on above: Performed By: #### C BC ####[facility] [address]wvxs[address]obt27[address] [place] [id number] Neutrophils/100 WBC Auto (Bld) 61.4 % Normal 43.0-75.0 [facility] Comment on above: Performed By: #### C BC ####[facility] Pziuofttrn6813 [place] [id number] Platelet mean volume (PMV) 9.3 fL Critically low 9.5-13.5 [facility] Comment on above: Performed By: #### C BC ####[facility] Uvxuauqpfe6268 [place] [id number] Platelets 221 103/ul Normal 150-450 [facility] Comment on above: Performed By: #### C BC ####[facility] [address] [place], [place] [id number] WBC (Leukocytes) 5.7 103/ul Normal 4.0-11.0 [facility] Comment on above: Performed By: #### C BC ####[facility] [address] [place], [place] [id number] LIPASEon 05-03-2017 Lipase 55.0 U/L Normal 23.0-300.0 [facility] Comment on above: Performed By: #### B MP, LIPA, LIVER, CMADM ####[facility] Sbgimbwstl4404 [place] [id number] LIVER PROFILEon 05-03-2017 Alanine aminotransferase (ALT) 35 U/L Normal 21-72 [facility] Comment on above: Performed By: #### B MP, LIPA, LIVER, CMADM ####[facility] Fzlrfknxxi8898 [place] [id number] Albumin 4.4 g/dL Normal 3.5-5.0 [facility] Comment on above: Performed By: #### B MP, LIPA, LIVER, CMADM ####[facility] Tuprqlkcyl0565 [place] [id number] Albumin/Globulin Ratio 1.4 {ratio} Normal T [facility] Comment on above: Performed By: #### B MP, LIPA, LIVER, CMADM ####[facility] Cniomrsjve9746 [address] Alkaline phosphatase (ALP) 74 U/L Normal 38-126 [facility] Comment on above: Performed By: #### B MP, LIPA, LIVER, CMADM ####[facility] Lfcsxgxyav6242 [address] Aspartate aminotransferase (AST) 21 U/L Normal 17-59 The [facility] Comment on above: Performed By: #### B MP, LIPA, LIVER, CMADM ####[facility] Cbrpznotdo0579 [address] [place] BILI, CONJUGATED 0.0 mg/dL Normal 0.0-0.3 [facility] Comment on above: Performed By: #### B MP, LIPA, LIVER, CMADM ####[facility] Klcqoojmyd3558 [address] Bilirubin Ql (U) 0.8 mg/dL Normal 0.2-1.3 [facility] Comment on above: Performed By: #### B MP, LIPA, LIVER, CMADM ####[facility] [address] [place] [address] [place] Globulin 3.1 g/dL Normal [facility] Comment on above: Performed By: #### B MP, LIPA, LIVER, CMADM ####[facility] Pjwbqbpidc6435 [address] [place] Protein 7.5 g/dL Normal 6.1-8.2 [facility] Comment on above: Performed By: #### B MP, LIPA, LIVER, CMADM ####[facility] Sgxqovoxdx77[address] [place] PROF CHEM 8 (BAS METB)on Anion gap 12.7 mmol/L Normal [facility] Comment on above: Performed By: #### B MP, LIPA, LIVER, CMADM ####[facility] Cuimisgcls8311 [address] [place] BUN/Creatinine Ratio 14.4 mg/mg Normal [facility] Comment on above: Performed By: #### B MP, LIPA, LIVER, CMADM ####[facility] Ghureayngq1894 [address] [place] Calcium 9.6 mg/dL Normal 8.4-10.2 [facility] Comment on above: Performed By: #### B MP, LIPA, LIVER, CMADM ####[facility] Ijgzfupvxt45[address] [place] Chloride 103 mmol/L Normal 98-107 [facility] Comment on above: Performed By: #### B MP, LIPA, LIVER, CMADM ####[facility] Dyydhajkqq5660 [address] [place] CO2 30.0 mmol/L Normal 22.0-30.0 [facility] Comment on above: Performed By: #### B MP, LIPA, LIVER, CMADM ####[facility] Vmrzkoawla5259 [address] [place] Creatinine 0.87 mg/dL Normal 0.66-1.25 [facility] Comment on above: Performed By: #### B MP, LIPA, LIVER, CMADM ####[facility] Aysuwucrgx7268 [address] [place] eGFR (non-black) Normal 60-N/A [facility] Comment on above: Performed By: #### B MP, LIPA, LIVER, CMADM ####[facility] Ohokmrbqld8260 [address] [place] Glucose mass conc 100 mg/dL Normal 74-106 The [facility] Comment on above: Performed By: #### B MP, LIPA, LIVER, CMADM ####[facility] Brekxcdrhz3012 [address] [place] Potassium molar conc 4.0 mmol/L Normal 3.4-5.0 [facility] Comment on above: Performed By: #### B MP, LIPA, LIVER, CMADM ####[facility] Agqjtpsqbu4736 [place], [place] [address]Jhtzss [place] Sodium 142 mmol/L Normal 137-145 [facility] Comment on above: Performed By: #### B MP, LIPA, LIVER, CMADM ####[facility] Gkqjptnvul8609 [place], [place] [address]Fxtyvy [place] Urea nitrogen 13.0 mg/dL Normal 9.0-20.0 [facility] Comment on above: Performed By: #### B MP, LIPA, LIVER, CMADM ####[facility] Xqvjcxlybs4357 [place], [place] [address]Wkwpxd [place] Vital Signs Date Time Vital Sign Value Performing Clinician Facility 01-29-2024 15:18-0400 Body height 175.3 cm Deep Babb MD Work Phone: [facility] 01-29-2024 15:18-0400 Body mass index (BMI) [Ratio] 25.55 kg/m2 Deep Babb MD Work Phone: [facility] 01-29-2024 15:18-0400 Body weight 78.47 kg Deep Babb MD Work Phone: [facility] 01-29-2024 15:18-0400 Diastolic blood pressure 82 mm[Hg] Deep Babb MD Work Phone: [facility] 01-29-2024 15:18-0400 Heart rate 81 /min Deep Babb MD Work Phone: [facility] 01-29-2024 15:18-0400 SaO2% (BldA) [Mass fraction] 98 % Deep Babb MD Work Phone: [facility] 01-29-2024 15:18-0400 Systolic blood pressure 133 mm[Hg] Deep Babb MD Work Phone: [facility] 12-30-2023 08:06-0400 Body height 172.7 cm Deep Babb MD Work Phone: [facility] 12-30-2023 08:06-0400 Body mass index (BMI) [Ratio] 25.85 kg/m2 Deep Babb MD Work Phone: [facility] 12-30-2023 08:06-0400 Body weight 77.11 kg Deep Babb MD Work Phone: [facility] 12-30-2023 08:06-0400 Diastolic blood pressure 86 mm[Hg] Deep Babb MD Work Phone: [facility] 12-30-2023 08:06-0400 Heart rate 105 /min Deep Babb MD Work Phone: [facility] 12-30-2023 08:06-0400 SaO2% (BldA) [Mass fraction] 97 % Deep Babb MD Work Phone: [facility] 12-30-2023 08:06-0400 Systolic blood pressure 148 mm[Hg] Deep Babb MD Work Phone: [facility] 03-31-2023 16:45-0400 Body temperature 98.06 [degF] Ramón Carrizales [facility] 03-31-2023 16:45-0400 Diastolic blood pressure 86 mm[Hg] Ramón Carrizales [facility] 03-31-2023 16:45-0400 Heart rate 80 /min Ramón Carrizales [facility] 03-31-2023 16:45-0400 Respiratory rate 16 /min Ramón Carrizales [facility] 03-31-2023 16:45-0400 SaO2% (BldA) [Mass fraction] 98 % Ramón Carrizales [facility] 03-31-2023 16:45-0400 Systolic blood pressure 136 mm[Hg] Ramón Carrizales [facility] 09-30-2022 21:22-0500 Diastolic blood pressure 83 mm[Hg] Junior Idalmis [facility] 09-30-2022 21:22-0500 Heart rate 90 /min Junior Idalmis [facility] 09-30-2022 21:22-0500 Mean blood pressure 97 mm[Hg] Junior Idalmis [facility] 09-30-2022 21:22-0500 Respiratory rate 19 /min Junior Idalmis [facility] 09-30-2022 21:22-0500 SaO2% (BldA) [Mass fraction] 100 % Junior Idalmis [facility] 09-30-2022 21:22-0500 Systolic blood pressure 124 mm[Hg] Junior Idalmis [facility] 09-30-2022 20:01-0500 Body temperature 98.24 [degF] Junior Idalmis [facility] 09-30-2022 20:01-0500 Diastolic blood pressure 100 mm[Hg] Junior Idalmis [facility] 09-30-2022 20:01-0500 Heart rate 100 /min Junior Idalmis [facility] 09-30-2022 20:01-0500 Respiratory rate 18 /min Junior Idalmis [facility] 09-30-2022 20:01-0500 SaO2% (BldA) [Mass fraction] 99 % Junior Idalmis [facility] 09-30-2022 20:01-0500 Systolic blood pressure 133 mm[Hg] Junior Idalmis [facility] 08-11-2022 08:34-0500 Body temperature 97.59 [degF] Chavez Chirri DO Work Phone: [facility] [employer] 08-11-2022 08:34-0500 Diastolic blood pressure 86 mm[Hg] [facility] 08-11-2022 08:34-0500 Heart rate 70 /min Chavez [facility]ri DO [facility] 08-11-2022 08:34-0500 Respiratory rate 16 /min Chavez Chirri DO Work Phone: [facility] [employer] 08-11-2022 08:34-0500 SaO2% (BldA) [Mass fraction] 97 % Chavez Chirri DO Work Phone: [facility] [employer] 08-11-2022 08:34-0500 Systolic blood pressure 137 mm[Hg] Chavez [facility]irri DO [facility] 08-07-2022 15:24-0500 Body height 172.7 cm Chavez [facility]irri DO [facility] 08-07-2022 15:24-0500 Body mass index (BMI) [Ratio] 26.95 kg/m2 Chavez [facility]irri DO [facility] 08-07-2022 15:24-0500 Body weight 80.4 kg Chavez Chirri DO [facility] 02-02-2022 06:32-0400 Body temperature 98.01 [degF] [facility] 06:32-0400 Diastolic blood pressure 82 mm[Hg] [facility] 02-02-2022 06:32-0400 Heart rate 96 /min Et3 [facility] 02-02-2022 06:32-0400 Respiratory rate 18 /min Et3 [facility] 02-02-2022 06:32-0400 SaO2% (BldA) [Mass fraction] 98 % Et3 [facility] 02-02-2022 06:32-0400 Systolic blood pressure 128 mm[Hg] Et3 [facility] Encounters Encounter Date Encounter Type Care Provider Facility Start: 09-30-2024 End: 10-02-2024 [facility] [employer] Ana Garcia PhD Work Phone: Neurology Comment on above: 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); Functional 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 Start: 09-11-2024 End: 09-14-2024 [facility] [employer] Ana Garcia PhD Work Phone: Neurology Comment on above: 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) Start: 09-04-2024 End: 09-07-2024 [facility] [employer] Ana Garcia PhD Work Phone: Neurology Comment on above: 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) Start: 08-28-2024 End: 08-28-2024 [facility] [employer] Ana Garcia PhD Work Phone: Neurology Comment on above: 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) Start: 08-21-2024 End: 08-24-2024 [facility] [employer] Ana Garcia PhD Work Phone: Neurology Comment on above: 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) Start: 08-14-2024 End: 08-16-2024 [facility] [employer] Ana Garcia PhD Work Phone: Neurology Comment on above: 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) Start: 08-07-2024 End: 08-10-2024 [facility] [employer] nAa Garcia PhD Work Phone: Neurology Comment on above: 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) Start: 07-31-2024 End: 07-31-2024 [facility] [employer] Ana Garcia PhD Work Phone: Neurology Comment on above: 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) Start: 07-27-2024 End: 07-28-2024 Chiki Hale PA-C Work Phone: Neurology Comment on above: Refill Request Start: 06-30-2024 End: 06-30-2024 [facility] Ana Arturo Garcia PhD Work Phone: Neurology Comment on above: 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) Start: 06-02-2024 End: 06-02-2024 Telephone encounter Minerva MILLARD Neurology Comment on above: Social Work Services Start: 05-05-2024 End: 05-05-2024 ambulatory Doug Ellsworth [employer].VENE[employer] MARKER Work Phone: Neurology Comment on above: Psychogenic nonepile ptic seizure (Primary Dx); Seizure-like activity (HCC) Start: 05-05-2024 End: 05-05-2024 Telemedicine consultation with patient Doug [place] [employer]ORNEY.VENEER MARKER Work Phone: Neurology Start: 04-30-2024 End: 05-07-2024 ambulatory Ana Arturo Garcia PhD Work Phone: Neurology Comment on above: Book Start: 04-28-2024 End: 04-28-2024 ambulatory Ana Mattyjaun Radha PhD Work Phone: Neurology Comment on above: Psychogenic nonepile ptic seizure Start: 04-28-2024 End: 04-28-2024 Telemedicine consultation with patient Ana Garcia PhD Work Phone: Neurology Start: 02-17-2024 End: 02-17-2024 Subsequent hospital visit by physician Mri Jasmeet (I-Stat/3t) Work Phone: Radiology Comment on above: No Show Start: 02-17-2024 End: 02-17-2024 ambulatory [facility] Facility:[facility] Start: 02-17-2024 End: 02-17-2024 Subsequent hospital visit by physician Mri 4 [employer] Main Q (I-Stat/1.5t/3t) Work Phone: MRI Q Comment on above: Seizure (HCC) [R56.9 ] Start: 02-06-2024 Telephone encounter Deep lback MD Work Phone: Neurology Comment on above: Seizures Medication Problem ( Lamotrigine ) Start: 01-31-2024 Telephone encounter Deep black MD Work Phone: Neurology Comment on above: Other Start: 01-29-2024 End: 01-29-2024 Patient encounter procedure Deep Babb MD Work Phone: Neurology Comment on above: Seizure-like activit y (HCC) (Primary Dx) Start: 01-29-2024 End: 01-29-2024 ambulatory [facility] Facility:[facility] Start: 01-02-2024 Orders Only Shandra Yost Work Phone: Neurology Comment on above: Psychogenic nonepile ptic seizure (Primary Dx) Seizure (HCC) (Prima ry Dx) Start: 12-30-2023 End: 01-03-2024 ambulatory GIOVANI CHERRYG Facility:[facility] Start: 12-30-2023 End: 12-30-2023 Patient encounter procedure Leah Zhu MD Work Phone: Neurology Comment on above: Seizure (HCC) (Prima ry Dx); Anxiety; Recurrent major depressive disorder, in partial remission (HCC) Start: 12-30-2023 End: 12-30-2023 ambulatory [facility] Facility:[facility] Start: 11-12-2023 Patient encounter procedure Kelly Sandoval MD Work Phone: Neurology Comment on above: Seizure (HCC) (Prima ry Dx) Start: 11-12-2023 Telephone encounter Kelly Sandoval MD Work Phone: Neurology Comment on above: Future Appointment ( [place], [place], [place] ) Start: 03-31-2023 End: 03-31-2023 Emergency department patient visit Ramón Carrizales Facility:[facility] Start: 03-31-2023 End: 03-31-2023 Emergency department patient visit Ramón Carrizales [facility] Start: 09-30-2022 End: 09-30-2022 Emergency department patient visit Junior Duval Idalmis Facility:[facility] Start: 09-30-2022 End: 09-30-2022 Emergency department patient visit Junior Raygoza [facility] Start: 09-23-2022 End: 09-23-[address] ORAL Trujillo Facility:[facility] Start: 09-13-2022 End: 09-13-2022 ambulatory CECILIA AMAYA . Facility:[facility] Start: 08-07-2022 End: 08-11-2022 Evaluation and management of inpatient CHAVEZ MORARI [facility] Start: 08-07-2022 End: 08-11-2022 Evaluation and management of inpatient Chavez Lee DO Work Phone: [facility] Renal//Med Surg Start: 06-15-2022 End: 06-16-[address] DOCTOR RAY Facility:[facility] Start: 06-11-2022 End: 06-11-2022 ambulatory EMELI CHI Facility:[facility] Start: 06-11-2022 End: 06-11-2022 ambulatory JOSIHA MAY Facility:[facility] Start: 06-10-2022 End: 06-10-2022 ambulatory JOSIAH MAY Facility:[facility] Start: 05-17-2022 End: 05-18-[address] DOCTOR RAY Facility:[facility] Start: 04-24-2022 End: 04-24-2022 ambulatory BRIAN Trujillo Facility:[facility] Start: 04-12-2022 End: 04-12-2022 ambulatory Emeli Chi Facility:[facility] Start: 04-12-2022 End: 04-12-2022 Patient encounter procedure S[employer]OL GUARD-C Emeli Chi Work Phone: [facility] [place] Start: 04-06-2022 End: 04-07-[address] DOCTOR RAY Facility:[facility] Start: 02-27-2022 End: 02-28-[address] LE OLVERA . Facility:[facility] Start: 02-27-2022 End: 02-27-2022 ambulatory JOSIAH MAY Facility:[facility] Start: 02-02-2022 End: 02-09-2022 ambulatory UNKNOWN PROVIDER Facility:[facility] Start: 02-02-2022 End: 02-02-2022 ambulatory [facility] Emergenc y Triage, Treat and Transport Start: 02-02-2022 End: 02-02-2022 Emergency department patient visit [facility] Emergency Triage, Treat and Transport Comment on above: Arrived Start: 12-30-2021 End: 12-31-2021 ambulatory JOSIAH MAY Facility: Start: 11-28-2021 End: 12-01-2021 ambulatory [facility] Start: 11-23-2021 Telephone encounter Won berger MD Work Phone: Urology Comment on above: Results Procedures Date Procedure Procedure Detail Performing Clinician Start: 08-07-2022 EEG VIDEO MONITORING Ka pari Sridhar [employer]ADE [employer] ATTORNEY - [employer] MARKER Work Phone: Start: 08-07-2022 BASIC METABOLIC PANE L W/ REFLEX TO MG FOR LOW K Alexia Waller [employer] MARK ATTORNEY - VENEER MARKER Work Phone: Start: 08-07-2022 Blood count complete auto&auto difrntl wbc Alexia Waller [employer]ADE MARK ATTORNEY - VENEER MARKER Work Phone: Cystoscopy Junior Raygoza Procedure on knee Junior Taylor scott Plan of Treatment Date Care Activity Detail Author Start: 2046 Shingles (RZV) Vacci ne (1 of 2) Shingles (RZV) Vaccine (1 of 2) [facility] Start: 09-30-2024 End: 09-30-2024 ambulatory 09/30/2024 2:[address] [facility] Neurology [address] [place] [address] Ana Garcia, PhD [address] [place] [address] [facility]nes Neurology Comment on above: pnes Start: 09-11-2024 End: 09-11-2024 ambulatory 09/11/2024 11:00 AM EST [facility] [address] [place] [address] Ana Garcia, PhD [address] [facility] [place] [place] [address] [facility] Comment on above: pnes Start: 09-04-2024 End: 09-04-2024 ambulatory 09/04/2024 11:00 AM EST [facility] [address] [place] [address] Ana Garcia, PhD [address] [facility] [place] [address] [facility] Comment on above: pnes Start: 08-28-2024 End: 08-28-2024 ambulatory 08/28/2024 2:00 PM EST [facility] [address] [facility] [place] [address] Ana Garcia, PhD [address] [facility] [place] [address] [facility] Neurology Comment on above: pnes Start: 08-21-2024 End: 08-21-2024 ambulatory 08/21/2024 2:00 PM EST [facility] [address] [place] [address] Ana Garcia, PhD [address] [facility] [place] [address] [facility] Neurology Comment on above: pnes Start: 08-14-2024 End: 08-14-2024 ambulatory 08/14/2024 2:00 PM EST [facility] [address] [place] [address] Ana Garcia, PhD [address] [place] [address] [facility] Neu[facility] Comment on above: pnes Start: 08-07-2024 End: 08-07-2024 ambulatory 08/07/2024 2:00 PM EST [facility] [address] [facility] [place] [address] Ana Garcia, PhD [address] [facility] [place] [address] [facility]nes Neurology Comment on above: pnes Start: 07-31-2024 End: 07-31-2024 ambulatory 07/31/2024 2:00 PM EST [facility] [address] [facility] [place] [address] Ana Garcia, PhD [address] [place] [address] [facility] Neu[facility] Comment on above: pnes Start: 07-07-2024 End: 07-07-2024 ambulatory 07/07/2024 1:00 PM EST [facility] [address] [facility] [place] [address] Ana Garcia, PhD [address] [facility] [place] [address] [facility]nes Neurology Comment on above: pnes Start: 06-30-2024 End: 06-30-2024 ambulatory 06/30/2024 1:00 PM EST [facility] [address] [facility] [place] [address] Ana Garcia, PhD [address] [place] [address] [facility] Comment on above: pnes Start: 05-05-2024 End: 05-05-2024 Follow-up encounter 05/05/2024 1:30 PM EDT [facility] [address] [place] [address] Doug Ellsworth, TRADE MARK ATTORNEY.VENEER MARKER [address] [place] [address] Follow Up Neurology Comment on above: Follow Up Start: 04-09-2024 End: 04-09-2024 ambulatory 04/09/2024 9:00 AM EDT [facility] Neurology [address] [place] [address] Neida Kee, PhD [address] [place] [address] Psychogenic nonepileptic seizure Neurology Comment on above: Psychogenic nonepile ptic seizure Start: 03-29-2024 Covid-19 Vaccine ( season) Covid-19 Vaccine () [facility] Start: 03-29-2024 Influenza vaccination [facility] Start: 03-05-2024 End: 03-05-2024 Follow-up encounter 03/05/2024 10:00 AM EDT [facility] Neurology [address] [place] [address] Doug Ellsworth, TRADE MARK ATTORNEY.VENEER MARKER [address] [place] [address] Follow Up Neurology Comment on above: Follow Up Start: 02-17-2024 End: 02-17-2024 Patient encounter procedure 02/17/2024 4:40 PM EDT Appointment Radiology [address] [place] [id number] Seizure Radiology Comment on above: Seizure Start: 02-17-2024 Subsequent hospital visit by physician 02/17/2024 4:40 PM EDT Hospital Encounter Radiology [address] [place] [id number] Seizure (HCC) [R56.9] Radiology Comment on above: Seizure (HCC) [R56.9 ] Start: 01-29-2024 End: 01-29-2024 Patient encounter procedure 01/29/2024 3:30 PM EDT Office Visit Neurology [address] [place] [address] Deep Babb MD [address] [address] [id number] Follow Up Neurology Comment on above: Follow Up Start: 09-10-2023 Covid-19 Vaccine ( season) Covid-19 Vaccine ( season) [facility] Start: 07-29-2023 Behavioral Health Screening Behavioral Health Screening [facility] Start: 03-29-2023 Covid-19 Vaccine ( season) Covid-19 Vaccine () [facility] Start: 11-16-2022 Depression Screen Depression Screen [facility] Start: 10-15-2022 End: 10-15-2022 Patient encounter procedure 10/15/2022 Office Visit Neurology Hans Granado MD [address] [place] [address] [place] [id number] [facility] Start: 03-29-2022 Influenza vaccination INFLUENZ A (Season Ended) [facility] Start: 02-26-2022 Influenza vaccination [facility] Start: 11-04-2019 DTaP/Tdap/Td vaccine (7 - Tdap) DTaP/Tdap/Td vaccine (7 - Tdap) [facility] Start: 11-04-2019 Urine microalbumin profile DTaP,Tdap,Td Vaccine (7 - Tdap) [facility] Start: 2015 Urine microalbumin profile DTAP,TDAP,TD (1 - Tdap) [facility] Start: 2014 Anxiety Screening Anxiety Screening [facility] Start: 2014 Depression Screening Depression Scre ening [facility] Start: 2014 HEPATITIS C SCREENING HEPATITIS C SC SHERLY [facility] Start: 2014 Hepatitis C screening [facility] Start: 2014 HIV SCREENING HIV SCREENING [facility] Start: 2014 HIV screening HIV Screening [facility] Start: 2014 Tetanus + diphtheria + acellular pertussis vaccine (product) [facility] Start: 2011 HIV screening [facility] Start: 2010 PEDS TO ADULT TRANSI TION ANNUAL ASSESSMENT PEDS TO ADULT TRANSITION ANNUAL ASSESSMENT [facility] Start: 2008 Adult depression screening assessment DEPRESSION SCREENING [facility] Start: 2008 PEDS TO ADULT TRANSI TION INITIAL DISCUSSION PEDS TO ADULT TRANSITION INITIAL DISCUSSION [facility] Start: 2007 HPV VACCINE (1 - Mal e 2-dose series) HPV VACCINE (1 - Male 2-dose series) [facility] Start: 2007 Vaccination for damir n papillomavirus Human Papilloma (HPV) Vaccine (1 - Male 2-dose series) [facility] Start: 2001 COVID-19 VACCINE (1) COVID-19 VACCIN E (1) [facility] Start: 2000 Varicella vaccine (2 of 2 - 2-dose childhood series) Varicella vaccine (2 of 2 - 2-dose childhood series) [facility] Start: 02-05-1997 COVID-19 Vaccine (#1) COVID-19 Vacci ne (#1) [facility] Start: 02-05-1997 Hepatitis B Vaccine (3 of 3 - 3-dose series) Hepatitis B Vaccine (3 of 3 - 3-dose series) [facility] End: 11-12-2024 EPIL EEG LEAD PLACEMENT EPIL EEG LEAD PLACEMENT NEUROLOGY Routine Seizure (HCC) 1 Occurrences starting 11/13/2023 until 11/12/2024 [facility] Work Phone: Comment on above: 1 Occurrences starti ng 11/13/2023 until 11/12/2024 EPIL VEEG ADMIT TO EMU/PMU EPIL VEEG ADMIT TO EMU/PMU NEUROLOGY Routine Seizure (HCC) Ordered: 11/13/2023 [facility] Work Phone: Comment on above: Ordered: 11/13/2023 End: 01-31-2025 MR Brain WO contrast MRI BRAIN WO IVCON Radiology Routine Seizure (HCC) 1 Occurrences starting 01/02/2024 until 01/31/2025 [facility] Work Phone: Comment on above: 1 Occurrences starti ng 01/02/2024 until 01/31/2025 MR Brain WO contrast MRI BRAIN W O IVCON Radiology Routine Seizure (HCC) 02/17/2024 8:39 PM EDT [facility] Work Phone: Oxygen therapy [[facility] Data Set] Initiate Oxygen Therapy Protocol Respiratory Care Routine Daily until discontinued starting 08/07/2022 [facility] Work Phone: Comment on above: Daily until disconti nued starting 08/07/2022 Avila Malkai c Payers Date Payer Category Payer Medicaid [id number] 2022 Self-pay 2021 Unknown [facility] [place] MED[place] [id number] 2021-Present [id number] 2018 Medicaid [place] [id number] 2018-Present [phone] [place] [address] Medicaid [id number] 1996 Unknown [id number] 1996 Unknown [id number] 2.16.840.1.166214.3.579.2.173 1996 Unknown [id number] 2.16.840.1.431000.3.579.2.732 1996 Unknown [id number] 2.16.840.1.097965.3.579.2.593 1996 Unknown [id number] 2.16.840.1.508166.3.579.2.593 1996 Unknown [id number] 2.16.840.1.877721.3.579.2.593 1996 Unknown [id number] 2.16.840.1.211318.3.579.2.593 1996 Unknown [id number] 2.16.840.1.121410.3.579.2.593 1996 Unknown [id number] 2.16.840.1.342895.3.579.2.593 1996 Unknown [id number] 2.16.840.1.671623.3.579.2.593 1996 Unknown [id number] 2.16.840.1.681595.3.579.2.593 1996 Unknown [id number] 2.16.840.1.800579.3.579.2.593 1996 Unknown [id number] 2.16.840.1.529612.3.579.2.593 1996 Unknown [id number] 2.16.840.1.272029.3.579.2.593 1996 Unknown [id number] 2.16.840.1.513703.3.579.2.593 1996 Unknown [id number] 2.16.840.1.034104.3.579.2.593 1996 Unknown [id number] 2.16.840.1.511681.3.579.2.727 1996 Unknown [id number] 2.16.840.1.479331.3.579.2.727 1996 Unknown [id number] 2.16.840.1.915150.3.579.2.175 1959 Unknown [id number] Unknown [id number] [id number] Social History Date Type Detail Facility Start: 01-20-2021 End: 12-30-2023 Tobacco smoking status NHIS Never smoked tobacco [facility] Start: 01-20-2021 End: 12-30-2023 Tobacco use and exposure Smokeless tobacco non-user [facility] Start: 08-03-2021 End: 01-29-2024 Alcohol intake Ex-drinker (finding) [facility] Start: 1996 Sex Assigned At Not on file [facility] Start: 11-05-2021 End: 08-07-2022 Exposure to SARS-CoV-2 (event) Not sure [facility] Tobacco smoking status AKIS Tobacco smoking consumption unknown [facility] Start: 1996 Sex Assigned At Male [facility] Start: 08-07-2022 Alcohol intake Lifetime non-d starr (finding) [facility] Work Phone: Tobacco smoking status Never [facility] Start: 08-03-2021 End: 12-30-2023 Sex Assigned At Male [facility] Start: 08-03-2021 End: 12-30-2023 History of Social function [facility] Functional Status Date Assessment Result Facility 01-03-2024 Are you deaf, or do you have serious difficulty hearing No 01/03/2024 6:50 AM Carlos Ashley RN No [facility] 01-03-2024 Are you blind, or do you have serious difficulty seeing, even when wearing glasses No 01/03/2024 6:50 AM Carlos Ashley RN No [facility] 01-03-2024 Do you have serious difficulty walking or climbing stairs No 01/03/2024 6:50 AM Carlos Ashley RN No [facility] 01-03-2024 Do you have difficul ty dressing or bathing No 01/03/2024 6:50 AM Carlos Ashley RN No [facility] 01-03-2024 Because of a physica l, mental, or emotional condition, do you have difficulty doing errands alone such as visiting a physician's office or shopping No 01/03/2024 6:50 AM Carlos Ashley RN No [facility] 03-31-2023 Functional Status N/A [facility] 09-30-2022 Functional Status N/A [facility] Mental Status Date Assessment Result Facility 01-03-2024 Because of a physica l, mental, or emotional condition, do you have serious difficulty concentrating, remembering, or making decisions No 01/03/2024 6:50 AM Carlos Ashley RN No [facility] Clinical Notes 08-31-2021 to 10-02-2024 Ana Garcia, PhD - 10/02/2024 1:56 PM Ana Aguilar, PhD - 09/14/2024 2:34 PM Ana Aguilar, PhD - 09/07/2024 2:45 AM Ana Aguilar, PhD - 08/28/2024 4:09 PM EST Note Date & Type Note Facility 10-02-2024 Note HNO ID: [id number] Author: ANA GARCIA, PhD Service: ? Author Type: Psychologist Type: Progress Notes Filed: 10/02/2024 13:56 Note Text: The pt was a no show. [facility] 10-02-2024 History of Presen t illness Narrative The pt was a no show. documented in this encounter [facility] 09-14-2024 Note HNO ID: [id number] Author: ANA GARCIA, PhD Service: ? Author Type: Psychologist Type: Progress Notes Filed: 09/14/2024 14:35 Note Text: No show [facility] 09-14-2024 History of Presen t illness Narrative No show documented in this encounter [facility] 09-07-2024 Note HNO ID: [id number] Author: ANA GARCIA, PhD Service: ? Author Type: Psychologist Type: Progress Notes Filed: 09/07/2024 02:45 Note Text: No show [facility] 09-07-2024 History of Presen t illness Narrative No show documented in this encounter [facility] 08-28-2024 Note HNO ID: [id number] Author: ANA GARCIA, PhD Service: ? Author Type: Psychologist Type: Progress Notes Filed: 08/28/2024 16:18 Note Text: No show [facility] 08-28-2024 History of Presen t illness Narrative No show documented in this encounter [facility] 08-24-2024 Note HNO ID: [id number] Author: ANA GARCIA, PhD Service: ? Author Type: Psychologist Type: Progress Notes Filed: 08/24/2024 12:51 Note Text: No show [facility] 08-24-2024 History of Presen t illness Narrative No show documented in this encounter [facility] 08-16-2024 Note HNO ID: [id number] Author: ANA GARCIA, PhD Service: ? Author Type: Psychologist Type: Progress Notes Filed: 08/16/2024 14:02 Note Text: No show. [facility] 08-16-2024 History of Presen t illness Narrative No show. documented in this encounter [facility] 08-10-2024 Note HNO ID: [id number] Author: ANA GARCIA, PhD Service: ? Author Type: Psychologist Type: Progress Notes Filed: 08/10/2024 14:15 Note Text: No show [facility] 08-10-2024 History of Presen t illness Narrative No show documented in this encounter [facility] 07-31-2024 Note HNO ID: [id number] Author: ANA GARCIA, PhD Service: ? Author Type: Psychologist Type: Progress Notes Filed: 07/31/2024 16:23 Note Text: No show [facility] 07-31-2024 History of Presen t illness Narrative No show documented in this encounter [facility] 07-28-2024 Telephone encounter Note The following approved medication requests have been transmitted electronically. Requested Prescriptions Signed Prescriptions Disp Refills lamoTRIgine (LAMICTAL) 200 mg tablet 180 tablet 1 Sig: Take 1 tablet by mouth two times a day. Authorizing Provider: RAFI BERNSTEIN APRN.CNP [facility] 07-28-2024 Miscellaneous Notes The following approved medication requests have been transmitted electronically. Requested Prescriptions Signed Prescriptions Disp Refills lamoTRIgine (LAMICTAL) 200 mg tablet 180 tablet 1 Sig: Take 1 tablet by mouth two times a day. Authorizing Provider: RAFI BERNSTEIN APRN.CNP Prescription Refill: Requested by: pharmacy Please E-Scribe Caller Contact Number: Pharmacy Name: [facility] Number: [phone] Generic/ brand: 30 or 90 day supply requested: 90 Last appointment: 05/05/24 Next Appointment: none Patient of Dr. Don Alnoso III [id number] [address] [place] [address] documented in this encounter [facility] 07-28-2024 Telephone encounter Note Prescription Refill: Requested by: pharmacy Please E-Scribe Caller Contact Number: Pharmacy Name: [facility]acy Number: [phone] Generic/ brand: 30 or 90 day supply requested: 90 Last appointment: 05/05/24 Next Appointment: none Patient of Dr. Don Alonso III [id number] [address] [place] [id number] [facility] 06-30-2024 Note HNO ID: [id number] Author: ANA GARCIA, PhD Service: ? Author Type: Psychologist Type: Progress Notes Filed: 06/30/2024 17:12 Note Text: PSYCHOLOGY NOTE: Virtual visit This psychotherapy session was conducted virtually using [employer]. Consent related to virtual visit was provided verbally after information was read to patient. Current location: Home Emergency contact: On file S/O: This is a 28 year-old patient with nonepileptic seizures/conversion disorder in counseling for management of symptoms. 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 Consent related to virtual visit was provided verbally after information was read to patient. Current location: Home Emergency contact: On file S/O: This is a 28 year-old patient with nonepileptic seizures/conversion disorder in counseling for management of symptoms. 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 Tracking # [id number] [facility] 06-02-2024 Miscellaneous Notes Copy of seizure workbook, mailed to patient home address. Tracking # [id number] FIRER TUNNEL KILN received a consult from provider stating patient told them they cannot afford the PNES workbook, and is looking for assistance with this. FIRER TUNNEL KILN notes patient had initial assessment with Dr. Garcia and is beginning treatment in June 2024. FIRER TUNNEL KILN asked admin to send patient a copy of the workbook after confirming with patient the correct address. Will follow to assure this is sent to patient. documented in this encounter [facility] 06-02-2024 Telephone encounter Note [employer] KIL[employer] received a consult from provider stating patient told them they cannot afford the PNES workbook, and is looking for assistance with this. FIRER TUNNEL KILN notes patient had initial assessment with Dr. Garcia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 instructions Patient Education [...] Follow these instructions at home: Medicines Take tdnu-reo-ultfddh and prescription medicines only as told by [...] and water are not available, use hand punchboard assembler. ?Gently wash the wound area with mild [...] provider. Document Revised: 07/06/2020 Document Reviewed: 07/06/2020 [employer] Patient Education 2022 [employer]. Follow Up Care 03/31/2023 16:45:16 With:EMELI CHI Address: [address] [place] [address] [phone] Business (1) When:04/03/2023 16:54:21 Comments:Call the office [...] 5 days or until sutures are removed. [facility] 03-31-2023 Evaluation + Plan note Extrac perfecto from: Title:ED Note Author:Ramón Carrizales DO Date: Wound dehiscence (T81.30XA: Disruption of wound, unspecified, initial encounter) [facility]03-05-2023 Hospital Discharge instructions Patient Education 09/30/2022 21:30:18 [...] Follow these instructions at home: Medicines Take cwtb-rvv-xezseut and prescription medicines only as told by [...] check with your local DMV (department of [employer] vehicles) to find out about local driving [...] Treatment is effective at controlling seizures. Take mgdz-avb-xfvudkf and prescription medicines only as told by [...] 07/15/2006 Document Revised: 03/09/2019 Document Reviewed: 03/09/2019 [employer] Patient Education 2020 [employer]. Follow Up Care 09/30/2022 20:00:37 With:EMELI CHI Address: [address] [place] [phone]- [phone] Business (1) When:Within 3 Day(s) [facility]03-05-2023 Evaluation + Plan noteExtracted from: Title:ED Note Author:Junior Raygoza DO Date :09/30/22 Seizure (R56.9: Unspecified convulsions) Orders: lorazepam, 2 mg = 2 tab(s), Tab, Oral, Once, Stop date 09/30/22 22:00:00 EST, Routine, Start date 09/30/22 22:00:00 EST, 09/30/22 21:09:00 EST [facility]01-14-2023 Hospital course Narrative* Benjamin Miles MD - 08/11/2022 2:28 PM EST Images from the original note were not included. [facility] Department of Neurology INPATIENT DISCHARGE SUMMARY Patient Identification: Corey Alonso III is a 27 y.o. male. : 1995 Acct: [id number] Admit Date: 08/07/2022 Discharge date and time: [...] seizure-free since then. Follows with neurologist in [place] currently taking Trileptal 600 mg twice daily, [...] Diet: regular diet Follow-up: Hans Granado MD [address] [place] [address] Dr Mckeon [facility] [id number] Schedule an appointment as soon as possible for a visit follow up with neurology in 4-6weeks for seizure disorder Follow up labs: None Follow up imaging: None Note that over 30 minutes was spent in preparing discharge papers, discussing discharge with patient, medication review, etc. Benjamin Miles MD, Neurology Resident PGY-2 Department of Neurology [place], [place] 08/11/2022, 4:52 PM Associated attestation - [...] 08/11/2022 4:57 PM documented in this encounterB[facility] Work Phone: 1(506) 988-967701-14-2023 History of Present illness Narrative* Benjamin Miles MD - 08/11/2022 2:16 PM EST [facility] Neurology IN-PATIENT SERVICE [facility] Progress Note Date: 08/11/2022 Patient name: Corey Alonso III Date of admission: 08/07/2022 2:07 PM Account: [id number] Date of : 1995 PCP: Emeli Chi Room: 602 Code Status: Full Code Chief Complaint: Elective [...] seizure-free since then. Follows with neurologist in [place] currently taking Trileptal 600 mg twice daily, [...] Chavez Lee DO 08/11/2022 3:11 PM * BELL Khalil CNP - 08/10/2022 10:43 AM EST Neurology Nurse [...] follows up with his own neurologist in [place] and has been taking Trileptal 600 mg twice daily and Lamictal 300 mg twice daily. LTME was recommended to capture and characterize her typical spells. Patient presented to [facility] on 08/07/2022 for inpatient LTME. HOSPITAL COURSE: [...] to ensure the accuracy of this automated ordnance officer, some errors in ordnance officer may have occurred. Associated attestation - Chavez [...] 2:54 PM * Kayden Collado APRN - GEGE - 08/09/2022 11:51 AM EST Neurology Nurse [...] follows up with his own neurologist in [place] and has been taking Trileptal 600 mg twice daily and Lamictal 300 mg twice daily. LTME was recommended to capture and characterize her typical spells. Patient presented to [facility] on 08/07/2022 for inpatient LTME. HOSPITAL COURSE: [...] to ensure the accuracy of this automated ordnance officer, some errors in ordnance officer may have occurred. Associated attestation - Chavez LeeDO - 08/09/2022 5:17 PM EST Attending Physician [...] made to the note as needed. Chavez Rosa, 08/09/2022 5:17 PM * Kayden Collado TRADE MARK ATTORNEY - GEGE - 2022 11:57 AM EST Neurology Nurse [...] the event. He described occasional aura of d eddi vu with confusion. He noted stress & sleep deprivation trigger his seizures. He can be seizure-free for weeks and then have 1 or 2 seizures per day. He had 6 seizures that occurred o vernight 07/03-07/04/22. No seizures were witnessed by his . Has been seizure- free since then. Hefollows up with his own neurologist in [place] and has been taking Trileptal 600 mg twice daily and Lamictal 300 mg twice daily. LTME was recommended to capture and characterize her typical spells. Patient presented to [facility] on 08/07/2022 for inpatient LTME. HOSPITAL COURSE: [...] to ensure the accuracy of this automated ordnance officer, some errors in ordnance officer may have occurred. * Tisha Peters - 08/07/2022 5:32 PM EST ALTM started documented in this encounterBON DOCTOR'S HOS[facility] CENTERSpectrum [employer] Work Phone: 1(162) 942-187009-15-2022 NoteSperm Rapid ProgressiveSeptember 2021 9:00amTNPTest not performedLakehealth Beachwood Medical Center [address] [facility] [address]CygbcrfogMiddletown HospitalComment on above:Test not [id number] NoteSperm Non-ProgressiveSeptember 2021 9:00amTNPTest not performedLakehealth Beachwood [facility] Center [address] [facility] [address]FozxtxsqpMiddletown HospitalComment on above:Test not [id number] History of Present illness Narrative* Maritza Romo [...] by: Maritza Romo MD documented in this [id number] Miscellaneous Notes* Telephone Encounter - Won Huerta MD - 11/23/2021 5:27 PM EDT Called to discuss results Remains azoospermic - suspected obstructive process Discussed next steps - TESE with IVF He will consider this and let us know All questions answered RTC prn Won Huerta MD, PhD [facility]22 NoteHNO ID: [id number] Author: Tung Macias MD Service: Anesthesiology Author Type: Anesthesiologist Type: Anesthesia Procedure Notes Filed: 09/01/2021 6:32 AM Note Text: ANESTHESIOLOGY PROCEDURE NOTE Airway General Information Procedure Start Time/Medication Administration: 08/31/2021 1:10 PM Patient location during procedure: OR Timeout Performed Pre-procedure: timeout performed Consent Obtained: Yes Patient identity confirmed: arm band and patient Staffing Anesthesiologist: Tung Macias MD SHIPPING SPECIALIST: Rubi Javier APRN.SHIPPING SPECIALIST Performed by: SHIPPING SPECIALIST Indications and Patient Condition Preoxygenated: yes Patient position: sniffing Manual In-Line Stabilization: No Difficult Mask: No Indications for airway management: anesthesia anesthesia circuit Method: asleep Cricoid Pressure: No Final Airway Details Final airway type: supraglottic airway Number of attempts at approach: 1 Final Supraglottic Airway: Size 1 Seal Adequate: yes Failed airway: no Unrecognized esophageal intubation: no Airway not difficult SIGNATURE: Rubi Javier APRN.SHIPPING SPECIALIST PATIENT NAME: Corey Alonso III DATE: August 31, 2021 TIME: 1:16 PM [facility]: [id number]* Diagnosis Seizure (HCC)- Primary Other convulsions documented in this encounter [facility] noteNo assessment information available[facility] Work Phone: Evaluation note* Diagnosis Partial symptomatic epilepsy with complex partial seizures, intractable, without status epilepticus (HCC)- Primary Seizure-like activity (HCC) Other convulsions documented in this encounter [facility] Work Phone: evaluation note* Diagnosis Seizure (HCC)- Primary Other convulsions [facility] Diagnosis Seizure (HCC)- Primary Other convulsions Anxiety Anxiety state, unspecified Recurrent major depressive disorder, in partial remission (HCC) documented in this encounter [facility] note* Diagnosis Psychogenic nonepileptic seizure- Primary documented in this encounter [facility] note* Diagnosis Seizure (HCC)- Primary Other convulsions [facility]* Diagnosis Seizure-like activity (HCC)- Primary Other convulsions [facility]* Diagnosis Seizure-like activity (HCC)- Primary Other convulsions [facility]* Diagnosis Seizure (HCC) Other convulsions [facility]* Diagnosis Pre-op evaluation- Primary Preoperative examination, unspecified Azoospermia Cryptogenic localization-related epilepsy (HCC) Localization-related (focal) (partial) epilepsy and epileptic syndromes with simple partial seizures, without mention of intractable epilepsy Psychogenic nonepileptic seizure documented in this encounter [facility] note* Diagnosis Pre-op evaluation- Primary Preoperative examination, unspecified Azoospermia Cryptogenic localization-related epilepsy (HCC) Localization-related (focal) (partial) epilepsy and epileptic syndromes with simple partial seizures, without mention of intractable epilepsy Psychogenic nonepileptic seizure- Primary Seizure-like activity (HCC) Other convulsions [facility] Pre-[facility] evaluation- Primary Preoperative examination, unspecified Azoospermia Cryptogenic localization-related epilepsy (HCC) Localization-related (focal) (partial) epilepsy and epileptic syndromes with simple partial seizures, without mention of intractable epilepsy Functional 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 Conversion disorder [facility] Diagnosis Pre-op evaluation- Primary Preoperative examination, unspecified Azoospermia Cryptogenic localization-related epilepsy (HCC) Localization-related (focal) (partial) epilepsy and epileptic syndromes with simple partial seizures, without mention of intractable epilepsy Seizure-like activity (HCC) Other convulsions [facility] Pre-op evaluation- Primary Preoperative examination, unspecified Azoospermia Cryptogenic localization-related epilepsy (HCC) Localization-related (focal) (partial) epilepsy and epileptic syndromes with simple partial seizures, without mention of intractable epilepsy Functional 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 Conversion disorder [facility] Diagnosis Pre-op evaluation- Primary Preoperative examination, unspecified Azoospermia Cryptogenic localization-related epilepsy (HCC) Localization-related (focal) (partial) epilepsy and epileptic syndromes with simple partial seizures, without mention of intractable epilepsy Functional 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 Conversion disorder [facility] Diagnosis Pre-op evaluation- Primary Preoperative examination, unspecified Azoospermia Cryptogenic localization-related epilepsy (HCC) Localization-related (focal) (partial) epilepsy and epileptic syndromes with simple partial seizures, without mention of intractable epilepsy Functional 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 Conversion disorder [facility] Diagnosis Pre-op evaluation- Primary Preoperative examination, unspecified Azoospermia Cryptogenic localization-related epilepsy (HCC) Localization-related (focal) (partial) epilepsy and epileptic syndromes with simple partial seizures, without mention of intractable epilepsy Functional 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 Conversion disorder [facility] Diagnosis Pre-op evaluation- Primary Preoperative examination, unspecified Azoospermia Cryptogenic localization-related epilepsy (HCC) Localization-related (focal) (partial) epilepsy and epileptic syndromes with simple partial seizures, without mention of intractable epilepsy Functional 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 Conversion disorder documented in this encounter [facility] note* Diagnosis Pre-op evaluation- Primary Preoperative examination, unspecified Azoospermia Cryptogenic localization-related epilepsy (HCC) Localization-related (focal) (partial) epilepsy and epileptic syndromes with simple partial seizures, without mention of intractable epilepsy 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 Mood disorder in conditions classified elsewhere documented in this encounter [facility] note* Diagnosis Pre-op evaluation- Primary Preoperative examination, unspecified Azoospermia Cryptogenic localization-related epilepsy (HCC) Localization-related (focal) (partial) epilepsy and epileptic syndromes with simple partial seizures, without mention of intractable epilepsy Functional 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 Conversion disorder documented in this encounter [facility] note* Diagnosis Pre-op evaluation- Primary Preoperative examination, unspecified Azoospermia Cryptogenic localization-related epilepsy (HCC) Localization-related (focal) (partial) epilepsy and epileptic syndromes with simple partial seizures, without mention of intractable epilepsy 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 Mood disorder in conditions classified elsewhere Functional 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 Conversion disorder documented in this encounter [facility] course Narrative No data available for this section [facility] No data available for this section [facility] (narrative)* Outpatient Procedure (Routine) - Pending Review Specialty Diagnoses / Procedures Referred By Randy gupta Referred To Contact [facility] Diagnoses Seizure (HCC) Procedures EPIL EEG LEAD PLACEMENT EEG EXTENDED MONITORING 61-119 MINUTES ELECTROENCEPHALOGRAM REC COMA/SLEEP ONLY Shandra Berman APRN.CNP [address] [place] [address] [facility] [address] [place] [address] Referral ID Status Reason Start Date Expiration Date Visits Requested Visits Authorized [id number] Pending Review Auto-Generat ed Referral 11/13/2023 11/12/2024 1 1 [facility] Summary Purpose Family History No Family History Records FoundNo Family History Records FoundNo Family History Records FoundNo Family History Records FoundNo Family History Records FoundNo Family History Records FoundNo Family History Records FoundNo Family History Records FoundNo Family History Records Found Advance Directives No Advanced Directives Records FoundDocuments on File Type Date Recorded Patient Mri Technician Expl anation Advance Directive(s) 07/17/2021 12:20 PM [...] STEM W/O CONTRAST MATERIAL Shandra Higgins PA-C [address] [place] [address] [facility] [place] [address] Referral ID Status Reason Start Date Expiration Date Visits Requested Visits Authorized [id number] Pending Review Auto-Generat ed Referral 01/02/2024 01/31/2025 1 1 Specialty Diagnoses / Procedures Referred By Randy gupta Referred To Contact Psychology Diagnoses Psychogenic nonepileptic seizure Procedures CONSULT TO PSYCHOLOGY OFFICE/OUTPATIENT [facility] 60 MINUTES Shandra Higgins PA-C [address] [place] [address] Referral ID Status Reason Start Date Expiration Date Visits Requested Visits Authorized [id number] Pending Review PCP Requested Referral 01/02/2024 01/01/2025 1 1 Additional Source Comments (unrecognized sect ion and content) No Status Records FoundNo Status Records FoundNo Status Records FoundNo Status Records FoundNo Status Records FoundNo Status Records FoundNo Status Records FoundNo Status Records FoundNo Status Records Found INFORMATION SOURCE (unrecogn ized section and content) DATE CREATED AUTHOR 01/22/2018 [facility] DATE CREATED AUTHOR AUTHOR'S ORGANIZ ATION 09/01/2021 [facility] DATE CREATED AUTHOR AUTHOR'S ORGANIZ ATION 12/05/2021 [facility] DATE CREATED AUTHOR AUTHOR'S ORGANIZ ATION 02/15/2022 [facility] DATE CREATED AUTHOR AUTHOR'S ORGANIZ ATION 04/27/2022 [facility] DATE CREATED AUTHOR AUTHOR'S ORGANIZ ATION 09/26/2022 [facility] DATE CREATED AUTHOR AUTHOR'S ORGANIZ ATION 03/31/2023 Anglin Bala [facility] DATE CREATED AUTHOR AUTHOR'S ORGANIZ ATION 05/31/2023 [facility] DATE CREATED AUTHOR AUTHOR'S ORGANIZ ATION 10/04/2024 [facility] Source Comments (unrecognize d section and content) In the event this informatio n is protected by the Federal Confidentiality of Alcohol and Drug Abuse Patient Records regulations: The Federal rules restrict any use of the information to criminally investigate or prosecute any alcohol or drug abuse patient.[facility] CenterIn the event this information is protected by the Federal Confidentiality of Alcohol and Drug Abuse Patient Records regulations: The Federal rules restrict any use of the information to criminally investigate or prosecute any alcohol or drug abuse patient.[facility] CenterIn the event this information is protected by the Federal Confidentiality of Alcohol and Drug Abuse Patient Records regulations: The Federal rules restrict any use of the information to criminally investigate or prosecute any alcohol or drug abuse patient.[facility] CenterIn the event this information is protected by the Federal Confidentiality of Alcohol and Drug Abuse Patient Records regulations: The Federal rules restrict any use of the information to criminally investigate or prosecute any alcohol or drug abuse patient.[facility] CenterIn the event this information is protected by the Federal Confidentiality of Alcohol and Drug Abuse Patient Records regulations: The Federal rules restrict any use of the information to criminally investigate or prosecute any alcohol or drug abuse patient.[facility] CenterIn the event this information is protected by the Federal Confidentiality of Alcohol and Drug Abuse Patient Records regulations: The Federal rules restrict any use of the information to criminally investigate or prosecute any alcohol or drug abuse patient.[facility] CenterIn the event this information is protected by the Federal Confidentiality of Alcohol and Drug Abuse Patient Records regulations: The Federal rules restrict any use of the information to criminally investigate or prosecute any alcohol or drug abuse patient.[facility] CenterIn the event this information is protected by the Federal Confidentiality of Alcohol and Drug Abuse Patient Records regulations: The Federal rules restrict any use of the information to criminally investigate or prosecute any alcohol or drug abuse patient.[facility] CenterIn the event this information is protected by the Federal Confidentiality of Alcohol and Drug Abuse Patient Records regulations: The Federal rules restrict any use of the information to criminally investigate or prosecute any alcohol or drug abuse patient.[facility] CenterIn the event this information is protected by the Federal Confidentiality of Alcohol and Drug Abuse Patient Records regulations: The Federal rules restrict any use of the information to criminally investigate or prosecute any alcohol or drug abuse patient.[facility] CenterIn the event this information is protected by the Federal Confidentiality of Alcohol and Drug Abuse Patient Records regulations: The Federal rules restrict any use of the information to criminally investigate or prosecute any alcohol or drug abuse patient.[facility] CenterIn the event this information is protected by the Federal Confidentiality of Alcohol and Drug Abuse Patient Records regulations: The Federal rules restrict any use of the information to criminally investigate or prosecute any alcohol or drug abuse patient.[facility] CenterIn the event this information is protected by the Federal Confidentiality of Alcohol and Drug Abuse Patient Records regulations: The Federal rules restrict any use of the information to criminally investigate or prosecute any alcohol or drug abuse patient.[facility] CenterIn the event this information is protected by the Federal Confidentiality of Alcohol and Drug Abuse Patient Records regulations: The Federal rules restrict any use of the information to criminally investigate or prosecute any alcohol or drug abuse patient.[facility] CenterIn the event this information is protected by the Federal Confidentiality of Alcohol and Drug Abuse Patient Records regulations: The Federal rules restrict any use of the information to criminally investigate or prosecute any alcohol or drug abuse patient.[facility] CenterIn the event this information is protected by the Federal Confidentiality of Alcohol and Drug Abuse Patient Records regulations: The Federal rules restrict any use of the information to criminally investigate or prosecute any alcohol or drug abuse patient.[facility] CenterIn the event this information is protected by the Federal Confidentiality of Alcohol and Drug Abuse Patient Records regulations: The Federal rules restrict any use of the information to criminally investigate or prosecute any alcohol or drug abuse patient.[facility] CenterIn the event this information is protected by the Federal Confidentiality of Alcohol and Drug Abuse Patient Records regulations: The Federal rules restrict any use of the information to criminally investigate or prosecute any alcohol or drug abuse patient.[facility] CenterIn the event this information is protected by the Federal Confidentiality of Alcohol and Drug Abuse Patient Records regulations: The Federal rules restrict any use of the information to criminally investigate or prosecute any alcohol or drug abuse patient.[facility] CenterIn the event this information is protected by the Federal Confidentiality of Alcohol and Drug Abuse Patient Records regulations: The Federal rules restrict any use of the information to criminally investigate or prosecute any alcohol or drug abuse patient.[facility] CenterIn the event this information is protected by the Federal Confidentiality of Alcohol and Drug Abuse Patient Records regulations: The Federal rules restrict any use of the information to criminally investigate or prosecute any alcohol or drug abuse patient.[facility] CenterIn the event this information is protected by the Federal Confidentiality of Alcohol and Drug Abuse Patient Records regulations: The Federal rules restrict any use of the information to criminally investigate or prosecute any alcohol or drug abuse patient.[facility] CenterIn the event this information is protected by the Federal Confidentiality of Alcohol and Drug Abuse Patient Records regulations: The Federal rules restrict any use of the information to criminally investigate or prosecute any alcohol or drug abuse patient.[facility] CenterIn the event this information is protected by the Federal Confidentiality of Alcohol and Drug Abuse Patient Records regulations: The Federal rules restrict any use of the information to criminally investigate or prosecute any alcohol or drug abuse patient.[facility] CenterIn the event this information is protected by the Federal Confidentiality of Alcohol and Drug Abuse Patient Records regulations: The Federal rules restrict any use of the information to criminally investigate or prosecute any alcohol or drug abuse patient.[facility] CenterIn the event this information is protected by the Federal Confidentiality of Alcohol and Drug Abuse Patient Records regulations: The Federal rules restrict any use of the information to criminally investigate or prosecute any alcohol or drug abuse patient.[facility] Reason for Visit (unrecogniz ed section and content) Reason Comments Results Reason Comments Seizures Specialty Diagnoses / Procedures Referred By Contac t Referred To Contact Diagnoses Partial symptomatic epilepsy with complex partial seizures, intractable, without status epilepticus (HCC) Seizure-like activity (HCC) partial symptomatic epilepsy w/ complex partial seizures intractable w/o status epilepticus needing LTME Chirri, Chavez, DO [address] [place] [address] [facility] [address] [place] [address] Referral ID Status Reason Start Date Expiration Date Visits Re quested Visits Authorized [id number] 1 1 Reason Comments Future Appointment [place], [place] Reason Comments New Patient Specialty Diagnoses / Procedures Referred By Contac t Referred To Contact HOSP INPATIENT Diagnoses Unspecified convulsions Procedures EEG PHYS/QHP EA INCR>12HR<26HR AFTER 24HR W/VEEG [facility] [id number] [place] [address] Referral ID Status Reason Start Date Expiration Date Visits Re quested Visits Authorized [id number] 1 1 Reason Comments Other Reason Comments Established Patient Follow Up Reason Comments Seizures Reason Comments Medication Problem Lamotrigine Specialty Diagnoses / Procedures [facility] Ref[facility] To Contact [facility] Diagnoses Seizure (HCC) Procedures MRI BRAIN WO IVCON MRI BRAIN BRAIN STEM W/O CONTRAST MATERIAL Shandra Higgins PA-C [address] [place] [address] [place] [id number] Referral ID Status Reason Start Date Expiration Date V isits Requested Visits Authorized [id number] Closed Auto-Generate d Referral 02/03/2024 03/04/2024 1 1 Reason Comments New Specialty Diagnoses / Procedures Referred By Contac t Referred To Contact Psychology Diagnoses Psychogenic nonepileptic seizure Procedures CONSULT TO PSYCHOLOGY OFFICE/OUTPATIENT NEW HIGH MDM 60 MINUTES Shandra Higgins PA-C [address] [place] [address] Referral ID Status Reason Start Date Expiration Date Visits Requested Visits Authorized [id number] Pending Review PCP Requested Referral 01/02/2024 01/01/2025 1 1 Reason Comments Follow Up Seizures Followup visit Reason Comments Social Work Services Reason Comments Refill Request Reason Comments Follow Up Care Teams (unrecognized sec tion and content) 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 Relationship Specialty Start Date End Date Emeli Chi CNP [address] [place] [place] [id number] PCP - General Internal Medicine 07/17/21 Team Status: Inactive Member Role Status Dates TAQUERIA Courtney Primary Care Provider Active Derek Burks Attending Provider Active Team Status: Active Member Role Status Dates Emeli Chi NP-Priyank Primary Care Provider Active 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 Relationship Specialty Start Date End Date Emeli Chi [address] [place] [address] PCP - General 11/16/21 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 Relationship Specialty Start Date End Date Emeli Chi CNP [address] [place] [address] PCP - General Internal Medicine 07/17/21 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 Relationship Specialty Start Date End Date Emeli Chi CNP [address] [place] [address] PCP - General Internal Medicine 07/17/21 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 Relationship Specialty Start Date End Date Emeli Chi CNP [address] [place] [id number] PCP - General Internal Medicine 07/17/21 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 Relationship Specialty Start Date End Date Emeli Chi CNP [address] [place] [address] PCP - General Internal Medicine 07/17/21 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 Relationship Specialty Start Date End Date Emeli Chi CNP [address] [place] [address] PCP - General Internal Medicine 07/17/21 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 Relationship Specialty Start Date End Date Emeli Chi CNP [address] [id number] PCP - General Internal Medicine 07/17/21 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 Relationship Specialty Start Date End Date Emeli Chi CNP [address] [id number] PCP - General Internal Medicine 07/17/21 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 Relationship Specialty Start Date End Date Emeli Chi CNP [address] [id number] PCP - General Internal Medicine 07/17/21 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 Relationship Specialty Start Date End Date Emeli Chi CNP [address] [id number] PCP - General Internal Medicine 07/17/21 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 Relationship Specialty Start Date End Date Emeli Chi CNP [address] [id number] PCP - General Internal Medicine 07/17/21 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 Relationship Specialty Start Date End Date Emeli Chi CNP [address] [place] [address] PCP - General Internal Medicine 07/17/21 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 Relationship Specialty Start Date End Date Emeli Chi CNP [address] [id number] PCP - General Internal Medicine 07/17/21 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 Relationship Specialty Start Date End Date Emeli Chi CNP [address] [place] [address] PCP - General Internal Medicine 07/17/21 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 Relationship Specialty Start Date End Date Emeli Chi CNP [address] [place] [address] PCP - General Internal Medicine 07/17/21 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 Relationship Specialty Start Date End Date Emeli Chi CNP [address] [place] [address] PCP - General Internal Medicine 07/17/21 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 Relationship Specialty Start Date End Date Emeli Chi CNP [address] [id number] PCP - General Internal Medicine 07/17/21 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 Relationship Specialty Start Date End Date Emeli Chi CNP [address] [place] [address] PCP - General Internal Medicine 07/17/21 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 Relationship Specialty Start Date End Date Emeli Chi CNP [address] [place] [address] PCP - General Internal Medicine 07/17/21 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 Relationship Specialty Start Date End Date Emeli Chi CNP [address] [place] [address] PCP - General Internal Medicine 07/17/21 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 Relationship Specialty Start Date End Date Emeli Chi CNP [address] [place] [address] PCP - General Internal Medicine 07/17/21 Goals [...] Scott RN) 0634 (Given - Provider: Eli Michel, JOSE) lamoTRIgine (LAMICTAL) tablet 200 mg (CANCELED) 200 mg, Oral, 2 TIMES DAILY, First dose (after last modification) on Sat08/07/22 at 1900, Until Discontinued, TO BE GIVEN AT 0700 AND 1900, TO BE GIVEN AT 0700 AND 1900 0647 (Given - Provider: Kash Juarez RN)1831 (Given - Provider: Brittaney Scott RN) 0634 (Given - Provider: Eli Michel, JOSE) lamoTRIgine (LAMICTAL) tablet 300 mg 300 mg, [...] mL/lumen 0847 (Given - Provider: Brittaney Scott RN)2110 (Given - Provider: Eli Michel RN) 0926 (Given - Provider: Wanda Moulton, JOSE)2110 (Not Given - Provider: Qian Christensen RN [...] BE BASED ON THE PRIMARY CLINICAL RECORDS. [employer] provides no warranty or guarantee of the accuracy or completeness of information in this document.
--- NOTE | 2024-10-10 21:08 | ED_ITS ---
HPI - Seizure General Chief Complaint: Seizure Stated Complaint: SEIZURE Time Seen by Provider: 10/10/24 21:03 Source: patient and other Source comment: EMS Mode of arrival: ambulance Limitations: no limitations History of Present Illness HPI Narrative: history of epilepsy. takes several anti seizure medications. History of not infrequent breakthrough seizures. can have them several days in a roll or go for a month without one. compliant with his medication. Seizure this AM. Another seizure tonight while walking down the side walk. Witness seizure. Per his mother witnesses stated he fell onto his hands. Not sure if he struck his head and was in a position. Brought to ER by [facility]. Feels fine now and is upset he is here. Denies any injury to his head or neck. Has minor abrasions dorsum of both hands. No deformity and FROM. Denies pain with use of his hands. Denies other injury. No nausea or vomiting or weakness Seizure History: Yes Place: outdoors Related Data Home Medications ?Medication ?Instructions ?Recorded ?Confirmed lamotrigine 200 mg tablet 200 mg PO Q12H 02/05/23 10/10/24 oxcarbazepine 600 mg tablet 600 mg PO BID 02/05/23 10/10/24 lamotrigine 25 mg tablet 50 mg PO BID 10/10/24 10/10/24 levetiracetam 250 mg tablet 250 mg PO BID 10/10/24 10/10/24 omeprazole 20 mg capsule,delayed 20 mg PO .before meal 10/10/24 10/10/24 release vilazodone 20 mg tablet 20 mg PO .once daily 10/10/24 10/10/24 Allergies Allergy/AdvReac Type Severity Reaction Status Date / Time No Known Drug Allergies Allergy Verified 10/10/24 21:03 Review of Systems ROS Status of ROS 10 or more systems reviewed and unremark able except as noted in history and below [facility] Medical History (Updated 10/10/24 @ 22:09 by Jared Jones MD) Epilepsy ?G40.909 - Epilepsy, unspecified, not intractable, without status epilepticus (ICD-10) Social History Smoking status: Unknown if ever smoked Little interest or pleasure in doing things: not at all Feeling down, depressed, or hopeless: not at all Exam Constitutional Vital Signs, click to edit/add: Last Vital Signs Pulse 89 10/10/24 20:58 Resp 20 10/10/24 20:58 BP 135/89 10/10/24 21:30 Pulse Ox 97 10/10/24 21:50 O2 Del Method Room Air 10/10/24 20:58 Common normals: no apparent distress, average body habitus, oriented x3, no limitations, healthy appearing, alert and well nourished [facility] Common normals: normocephalic and head/scalp atraumatic Eye Common normals: PERRL and EOMs intact bilaterally Respiratory Common normals: normal respiratory effort, no retractions, no use of accessory muscles and clear to auscultation bilaterally Cardio Common normals: regular rate, regular rhythm, S1 normal heart sound and S2 normal heart sound Extremity Other: minor 3mm abrasions dorsum both hands. No swelling . FROM of his hands Neuro Common normals: oriented x3, CN's II-XII intact bilaterally, moves all extremities and no focal motor deficits Psych Appearance: grossly normal Course Vital Signs Vital signs: Vital Signs Pulse Rate 89 10/10/24 20:58 Respiratory Rate 20 10/10/24 20:58 Blood Pressure 169/112 H 10/10/24 20:58 Pulse Oximetry 97 10/10/24 20:58 Oxygen Delivery Method Room Air 10/10/24 20:58 Pulse Rate 89 10/10/24 20:58 Respiratory Rate 20 10/10/24 20:58 Blood Pressure 135/89 10/10/24 21:30 Pulse Oximetry 97 10/10/24 21:50 Oxygen Delivery Method Room Air 10/10/24 20:58 MDM - Seizure MDM Narrative Medical decision making narrative: patient presents after a seizure. Past history of epilepsy and break through seizures. Feels well in the ED. Has minor scrapes on his hands. No other physical findings. labs all acceptable. No recurrence of seizure. Patient compliant with his medication. Discharged home with his mother Lab Data Labs: Lab Results 10/10/24 Range/Units 21:13 WBC 6.3 (4.0-11.0) 10^3/uL RBC 5.42 (4.70-6.10) 10^6/uL Hgb 15.9 (14.0-18.0) g/dL Hct 43.7 (42.0-54.0) % MCV 80.6 (80.0-94.0) fL MCH 29.3 (25.9-34.0) pg MCHC 36.4 H (29.9-35.2) g/dL RDW 12.2 (11.0-15.0) % Plt Count 227 (150-450) 10^3/uL MPV 9.6 (9.5-13.5) fL Neut % (Auto) 57.1 (43.0-75.0) % Lymph % (Auto) 34.8 (20.5-60.0) % [place] % (Auto) 6.5 (1.7-12.0) % Eos % (Auto) 0.8 L (0.9-7.0) % Baso % (Auto) 0.5 (0.2-2.0) % Neut # (Auto) 3.6 (1.4-6.5) 10^3/uL Lymph # (Auto) 2.2 (1.2-3.8) 10^3/uL [place] # (Auto) 0.4 (0.3-0.8) 10^3/uL Eos # (Auto) 0.1 (0.0-0.7) 10^3/uL Baso # (Auto) 0.0 (0.0-0.1) 10^3/uL Abs Immat Gran (auto) 0.02 (0.00-0.03) 10^3/uL Imm/Tot Granulo (auto) 0.3 (0.0-0.5) % Sodium 140 (136-145) mmol/L Potassium 3.6 (3.5-5.1) mmol/L Chloride 102 (98-107) mmol/L Carbon Dioxide 28.1 (21.0-32.0) mmol/L Anion Gap 13.5 BUN 10.0 (7.0-18.0) mg/dL Creatinine 1.14 (0.70-1.30) mg/dL Est GFR ( Amer) >60 (>=60 mL/min/1.73m^2) Est GFR (Non-Af Amer) >60 (>=60 mL/min/1.73m^2) BUN/Creatinine Ratio 8.8 Glucose 89 (74-106) mg/dL Calcium 9.1 (8.5-10.1) mg/dL Total Bilirubin 0.3 (0.2-1.0) mg/dL AST 51 H (15-37) U/L ALT 38 (16-63) U/L Alkaline Phosphatase 104 (46-116) U/L Total Protein 7.6 (6.4-8.2) g/dL Albumin 4.3 (3.4-5.0) g/dL Globulin 3.3 g/dL Albumin/Globulin Ratio 1.3 Discharge Plan Discharge Chief Complaint: Seizure Clinical Impression: Epileptic seizure Patient Disposition: Home, Self-Care Prescriptions / Home Meds: No Action lamotrigine 200 mg tablet 200 mg PO Q12H oxcarbazepine 600 mg tablet 600 mg PO BID lamotrigine 25 mg tablet 50 mg PO BID levetiracetam 250 mg tablet 250 mg PO BID omeprazole 20 mg capsule,delayed release(DR/EC) 20 mg PO .before meal vilazodone 20 mg tablet 20 mg PO .once daily Print Language: Moldovan Instructions: Epilepsy (ED) Referrals: MANNY CHI [Primary Care Provider] - 1 week
[2024-10-10 21:31] LABS: Basophils Percent Auto 0.5 % (0.2-2.0); Eosinophils Absolute Auto 0.1 10^3/uL (0.0-0.7); Eosinophils Percent Auto 0.8 % (0.9-7.0); Hematocrit 43.7 % (42.0-54.0); Hemoglobin 15.9 g/dL (14.0-18.0); Immature Granulocytes Abs Auto 0.02 10^3/uL (0.00-0.03); Immature Granulocytes Pct Auto 0.3 % (0.0-0.5); Lymphocytes Absolute Auto 2.2 10^3/uL (1.2-3.8); Lymphocytes Percent Auto 34.8 % (20.5-60.0); Mean Corpuscular HGB Conc 36.4 g/dL (29.9-35.2); Mean Corpuscular Hemoglobin 29.3 pg (25.9-34.0); Mean Corpuscular Volume 80.6 fL (80.0-94.0); Mean Platelet Volume 9.6 fL (9.5-13.5); Monocytes Absolute Auto 0.4 10^3/uL (0.3-0.8); Monocytes Percent Auto 6.5 % (1.7-12.0); Neutrophils Absolute Auto 3.6 10^3/uL (1.4-6.5); Neutrophils Percent Auto 57.1 % (43.0-75.0); Platelet Count 227 10^3/uL (150-450); Red Blood Count 5.42 10^6/uL (4.70-6.10); Red Cell Distribution Width 12.2 % (11.0-15.0); White Blood Count 6.3 10^3/uL (4.0-11.0)
[2024-10-10 21:43] LABS: Alanine Aminotransferase 38 U/L (16-63); Albumin Globulin Ratio 1.3; Albumin Level 4.3 g/dL (3.4-5.0); Alkaline Phosphatase 104 U/L (46-116); Anion Gap 13.5; Aspartate Amino Transferase 51 U/L (15-37); BUN Creatinine Ratio 8.8; Bilirubin Total 0.3 mg/dL (0.2-1.0); Calcium 9.1 mg/dL (8.5-10.1); Carbon Dioxide 28.1 mmol/L (21.0-32.0); Chloride 102 mmol/L (98-107); Estimated GFR (African America >60 (>=60 mL/min/1.73m^2); Estimated GFR (Non-African Ame >60 (>=60 mL/min/1.73m^2); Globulin 3.3 g/dL; Glucose 89 mg/dL (74-106); Potassium 3.6 mmol/L (3.5-5.1); Sodium 140 mmol/L (136-145); Total Protein 7.6 g/dL (6.4-8.2)
== END 2024-10-10 22:16 | disposition home or self-care (01) ==
PROVIDERS: Emergency Provider Internal Medicine; PCP Nurse Practitioner Family
DX: G40.909 Epilepsy, unspecified, not intractable, without status epilepticus (principal); Z79.899 Other long term (current) drug therapy
CPT/HCPCS: 36415; 80053; 85025; 99283

== ENCOUNTER 2024-11-29 13:34 | Emergency (ER) | payer OTHER, SELFPAY ==
[2024-11-29] VITALS (10 sets, daily range): BP systolic 129–144; BP diastolic 86–102; PULSE 59–84; TEMP 36.7; O2SAT 94–99; BMI 29.8
--- NOTE | 2024-11-29 14:02 | ECG_ITS ---
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 Measurements Intervals [place] Rate: 73 P: 58 OK: 146 QRS: 57 QRSD: 100 T: 26 QT: 372 QTc: 398 Interpretive Statements 1100 Sinus rhythm 9110 normal ECG Compared to ECG 03/04/2024 17:27:30 Sinus tachycardia no longer present Electronically Signed On 11-30-2024 7:44:59 EDT by MIGUEL BUNCH M.D.
[2024-11-29 14:28] LABS: Basophils Percent Auto 0.7 % (0.2-2.0); Eosinophils Absolute Auto 0.1 10^3/uL (0.0-0.7); Eosinophils Percent Auto 2.2 % (0.9-7.0); Hematocrit 45.5 % (42.0-54.0); Immature Granulocytes Abs Auto 0.01 10^3/uL (0.00-0.03); Immature Granulocytes Pct Auto 0.2 % (0.0-0.5); Lymphocytes Absolute Auto 1.6 10^3/uL (1.2-3.8); Lymphocytes Percent Auto 34.8 % (20.5-60.0); Mean Corpuscular HGB Conc 35.2 g/dL (29.9-35.2); Mean Corpuscular Volume 82.6 fL (80.0-94.0); Mean Platelet Volume 9.5 fL (9.5-13.5); Monocytes Absolute Auto 0.4 10^3/uL (0.3-0.8); Monocytes Percent Auto 8.3 % (1.7-12.0); Neutrophils Absolute Auto 2.5 10^3/uL (1.4-6.5); Neutrophils Percent Auto 53.8 % (43.0-75.0); Platelet Count 198 10^3/uL (150-450); Red Blood Count 5.51 10^6/uL (4.70-6.10); Red Cell Distribution Width 12.4 % (11.0-15.0); White Blood Count 4.6 10^3/uL (4.0-11.0)
[2024-11-29] MEDS: KETOROLAC TROMETHAMINE 30 MG/ML VIAL 15 MG IVP (14:36)
[2024-11-29 14:42] LABS: Anion Gap 7.1
[2024-11-29 14:47] LABS: Alanine Aminotransferase 60 U/L (16-63); Albumin Globulin Ratio 1.1; Albumin Level 4.1 g/dL (3.4-5.0); Alkaline Phosphatase 128 U/L (46-116); Aspartate Amino Transferase 19 U/L (15-37); BUN Creatinine Ratio 10.9; Bilirubin Total 0.3 mg/dL (0.2-1.0); Calcium 9.3 mg/dL (8.5-10.1); Carbon Dioxide 30.8 mmol/L (21.0-32.0); Chloride 100 mmol/L (98-107); Estimated GFR (African America >60 (>=60 mL/min/1.73m^2); Estimated GFR (Non-African Ame >60 (>=60 mL/min/1.73m^2); Globulin 3.8 g/dL; Glucose 105 mg/dL (74-106); Potassium 3.9 mmol/L (3.5-5.1); Sodium 134 mmol/L (136-145); Total Protein 7.9 g/dL (6.4-8.2); Troponin I High Sensitivity <4.0 pg/mL (4.0-76.1)
[2024-11-29 14:49] LABS: D Dimer <0.19 mg/L FEU (<=0.59)
--- NOTE | 2024-11-29 14:58 | ED.CHESTPAI1 ---
HPI - Chest Pain General Chief Complaint: Chest Pain Stated Complaint: CHEST PAIN X 1 WEEK, PAIN TO BREATHE Time Seen by Provider: 11/29/24 14:02 Source: patient Mode of arrival: walk-in History of Present Illness HPI narrative: The patient is a 29-year-old male is coming to the ER with a bilateral chest pain mostly anterior, it has been going on at least for a week the patient mentioned that the pain comes whenever he take a deep breath He denies any history of cough or any difficulty breathing Related Data Home Medications ?Medication ?Instructions ?Recorded ?Confirmed lamotrigine 200 mg tablet 200 mg PO Q12H 02/05/23 11/29/24 oxcarbazepine 600 mg tablet 600 mg PO BID 02/05/23 11/29/24 lamotrigine 25 mg tablet 50 mg PO BID 10/10/24 11/29/24 levetiracetam 250 mg tablet 250 mg PO BID 10/10/24 11/29/24 omeprazole 20 mg capsule,delayed 20 mg PO .before meal 10/10/24 11/29/24 release vilazodone 20 mg tablet 20 mg PO .once daily 10/10/24 11/29/24 Previous Rx's ?Medication ?Instructions ?Recorded diclofenac sodium 75 mg 75 mg PO BID PRN pain #10 tabs 11/29/24 tablet,delayed release Allergies Allergy/AdvReac Type Severity Reaction Status Date / Time No Known Drug Allergies Allergy Verified 11/29/24 13:55 Review of Systems ROS Status of ROS 10 or more systems reviewed and unremarkable except as noted in history and below [facility] Medical History (Updated 11/29/24 @ 15:03 by Elizabeth Patrick MD) Epilepsy ?G40.909 - Epilepsy, unspecified, not intractable, without status epilepticus (ICD-10) Social History Smoking status: Unknown if ever smoked Little interest or pleasure in doing things: not at all Feeling down, depressed, or hopeless: not at all Exam Narrative Exam Narrative: Nurses notes and vital signs reviewed and patient is not hypoxic. General: Well-appearing and in no apparent distress. Skin: Warm, dry, no pallor noted. No rash. Head: Normocephalic, atraumatic. Neck: Supple, non-tender. Eye: Pupils are equal, round and EOMI. No scleral icterus. Ears, Nose, Mouth, and Throat: TM are clear, no nasal mucosal hypertrophy. Oral mucosa is moist, no posterior oropharynx erythema, uvula is mid-line Cardiovascular: Regular Rate and Rhythm without murmur, gallop or rub. Respiratory: No accessory muscle use or respiratory distress. Lungs are clear to auscultation, no wheezing, rales or rhonchi Chest Wall: I could not induce the tenderness but the patient have the area in the lower chest bilaterally where he is pointing for tenderness Back: No midline thoracic or lumbar vertebral tenderness. No CVA tenderness Musculoskeletal: normal ROM, no calf or popliteal tenderness, no lower extremity edema/swelling GI: Abdomen is soft, non-distended. Normal bowel sounds. No masses appreciated. No tenderness to palpation. No rebound, guarding, or rigidity noted. Constitutional Vital Signs, click to edit/add: Last Vital Signs Temp 98.0 F 11/29/24 13:56 Pulse 69 11/29/24 15:08 Resp 16 11/29/24 15:08 BP 129/86 11/29/24 15:08 Pulse Ox 98 11/29/24 15:09 O2 Del Method Room Air 11/29/24 15:09 Course Vital Signs Vital signs: Vital Signs Temperature 98.0 F 11/29/24 13:56 Pulse Rate 78 11/29/24 13:56 Respiratory Rate 20 11/29/24 13:56 Blood Pressure 136/94 H 11/29/24 13:56 Pulse Oximetry 94 L 11/29/24 13:56 Oxygen Delivery Method Room Air 11/29/24 13:56 Temperature 98.0 F 11/29/24 13:56 Pulse Rate 69 11/29/24 15:08 Respiratory Rate 16 11/29/24 15:08 Blood Pressure 129/86 11/29/24 15:08 Pulse Oximetry 98 11/29/24 15:09 Oxygen Delivery Method Room Air 11/29/24 15:09 MDM - Chest Pain MDM Narrative Medical decision making narrative: Patient EKG showing sinus rhythm with a heart rate of [address] elevation or depression. The patient chest x-ray showed no acute pathology CBC and chemistry showed no acute pathology and the patient D-dimer was negative as well as troponin he was discharged home after he was treated with Toradol for possible atypical chest pain mostly muscular The patient is to follow up with primary care physician in next 2-3 days or to return to the emergency department should any of the signs or symptoms worsen or new symptoms develop. The patient agrees with the following Diagnosis and Treatment plan and the patient will be discharged home. Lab Data Labs: Lab Results 11/29/24 Range/Units 14:14 WBC 4.6 (4.0-11.0) 10^3/uL RBC 5.51 (4.70-6.10) 10^6/uL Hgb 16.0 (14.0-18.0) g/dL Hct 45.5 (42.0-54.0) % MCV 82.6 (80.0-94.0) fL MCH 29.0 (25.9-34.0) pg MCHC 35.2 (29.9-35.2) g/dL RDW 12.4 (11.0-15.0) % Plt Count 198 (150-450) 10^3/uL MPV 9.5 (9.5-13.5) fL Neut % (Auto) 53.8 (43.0-75.0) % Lymph % (Auto) 34.8 (20.5-60.0) % [place] % (Auto) 8.3 (1.7-12.0) % Eos % (Auto) 2.2 (0.9-7.0) % Baso % (Auto) 0.7 (0.2-2.0) % Neut # (Auto) 2.5 (1.4-6.5) 10^3/uL Lymph # (Auto) 1.6 (1.2-3.8) 10^3/uL [place] # (Auto) 0.4 (0.3-0.8) 10^3/uL Eos # (Auto) 0.1 (0.0-0.7) 10^3/uL Baso # (Auto) 0.0 (0.0-0.1) 10^3/uL Abs Immat Gran (auto) 0.01 (0.00-0.03) 10^3/uL Imm/Tot Granulo (auto) 0.2 (0.0-0.5) % D-Dimer <0.19 (<=0.59) mg/L FEU Sodium 134 L (136-145) mmol/L Potassium 3.9 (3.5-5.1) mmol/L Chloride 100 (98-107) mmol/L Carbon Dioxide 30.8 (21.0-32.0) mmol/L Anion Gap 7.1 BUN 12.0 (7.0-18.0) mg/dL Creatinine 1.10 (0.70-1.30) mg/dL Est GFR ( Amer) >60 (>=60 mL/min/1.73m^2) Est GFR (Non-Af Amer) >60 (>=60 mL/min/1.73m^2) BUN/Creatinine Ratio 10.9 Glucose 105 (74-106) mg/dL Calcium 9.3 (8.5-10.1) mg/dL Total Bilirubin 0.3 (0.2-1.0) mg/dL AST 19 (15-37) U/L ALT 60 (16-63) U/L Alkaline Phosphatase 128 H (46-116) U/L Troponin I High Sens <4.0 L (4.0-76.1) pg/mL Total Protein 7.9 (6.4-8.2) g/dL Albumin 4.1 (3.4-5.0) g/dL Globulin 3.8 g/dL Albumin/Globulin Ratio 1.1 Discharge Plan Discharge Chief Complaint: Chest Pain Clinical Impression: Atypical chest pain Patient Disposition: Home, Self-Care Time of Disposition Decision: 15:03 Condition: Good Prescriptions / Home Meds: New diclofenac sodium 75 mg tablet,delayed release (DR/EC) 75 mg PO BID PRN (Reason: pain) Qty: 10 0RF No Action lamotrigine 200 mg tablet 200 mg PO Q12H oxcarbazepine 600 mg tablet 600 mg PO BID lamotrigine 25 mg tablet 50 mg PO BID levetiracetam 250 mg tablet 250 mg PO BID omeprazole 20 mg capsule,delayed release(DR/EC) 20 mg PO .before meal vilazodone 20 mg tablet 20 mg PO .once daily Print Language: Kyrgyz Instructions: Chest Wall Pain (ED) Referrals: MANNY CHI [Primary Care Provider, Family Practice] - 1 week Discharge Date/Time: 11/29/24 15:16
== END 2024-11-29 15:16 | disposition home or self-care (01) ==
PROVIDERS: Emergency Provider Emergency Medicine; PCP Nurse Practitioner Family
DX: R07.89 Other chest pain (principal)
CPT/HCPCS: 36415; 71045; 80053; 84484; 85025; 85378; 93005; 96374; 99285; J1885

== ENCOUNTER 2025-01-11 15:19 | Emergency (ER) | payer OTHER, SELFPAY ==
--- OUTSIDE RECORDS SUMMARY | 2024-01-07 05:30 | XMS_ITS ---
Author Organization [facility] Address [address] [place] [address] Care Team Providers Care Sea Shell Gatherer Name Role Phone Sylvie Shelton Primary Care Provider Yanick Phelan [facility] [phone] REASON FOR VISIT FILLING Encounters Encounter Location Date Provider Diagnosis [address] [place] [address] 01/07/2024 Yanick Phelan Plan Of Treatment No Information Progress Notes * COREY LOPEZDOB:1995 (29 yo M)Acc No.[id number]:01/07/2024 Patient: COREY LOPEZ Provider: Darien Parr DDS :1995 A ge:28 Y S ex:Male Date:01/07/2024 Address:[address] [place] [address], [address] Pcp:Sylvie Murphy Subjective: * Chief Complaints: * 1 . FILLING. * Medical History: Objective: * Vitals: Assessment: Plan: * Treatment: * Images: * Electronic signature of Chris Phelan on 01/11/2025 at 03:22 PM EDT Sign off status: Pending * Provider: Darien Parr DDS Date: 01/07/2024 Generated for Phillip france/Lisbeth/eTransmitting on: 01/11/2025 03:22 PM EDT
--- OUTSIDE RECORDS SUMMARY | 2024-01-24 05:30 | XMS_ITS ---
Author Organization [facility] Servic es Address [address] [place] [address] Care Team Providers Care Chemistry Faculty Member Name Role Phone Sylvie Shelton Primary Care Provider REASON FOR VISIT RCT Encounters Encounter Location Date Provider Diagnosis [place] [address] [place] [address] 01/24/2024 Sylvie Francisco Plan Of Treatment No Information Progress Notes * COREY LOPEZDOB:1995 (29 yo M)Acc No.[id number]:01/24/2024 Patient: Darien CROWECHIRAGCOREY Provider: Uzair FRANCISCO DDS :1995 A ge:28 Y S ex:Male Date:01/24/2024 Address:[address] [place] [address], [address] Subjective: * Chief Complaints: * 1 . RCT. * Medical History: Objective: * Vitals: Assessment: Plan: * Treatment: * Images: * Electronic signature of Winifred Francisco DDS on 01/11/2025 at 03:21 PM EDT Sign off status: Pending * Provider: Uzair FRANCISCO DDS Date: 01/24/2024 Generated for Printi ng/Faxing/eTransmitting on: 01/11/2025 03:21 PM EDT
[2025-01-11] VITALS (12 sets, daily range): BP systolic 137–168; BP diastolic 81–83; PULSE 69–111; TEMP 36.7; O2SAT 94–98; BMI 21.1
--- NOTE | 2025-01-11 15:20 | ECG_ITS ---
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 Measurements Intervals [place] Rate: 99 P: 61 MD: 156 QRS: 65 QRSD: 94 T: 71 QT: 336 QTc: 392 Interpretive Statements 1100 Sinus rhythm 2440 Incomplete right bundle branch block 9130 borderline ECG Compared to ECG 11/29/2024 14:03:51 Incomplete right bundle-branch block now present Electronically Signed On 01-11-2025 16:56:57 EDT by MIGUEL BUNCH M.D.
--- NOTE | 2025-01-11 15:20 | ED.GENADUL1 ---
HPI HPI - General Adult General Chief complaint: Seizure Stated complaint: SEIZURE Time Seen by Provider: 01/11/25 15:20 History of Present Illness HPI narrative: 29-year-old male presents to the emergency department after having 2 seizures today. He was transported here by paramedics and they say when they first arrived he was quite postictal and seems to be improving. He has a history of seizure disorder but has been under a lot of stress recently because he may have to put down his dog. No trauma or fever and he does not seem to have any complaints except for a mild headache. He is on seizure medication. Related Data Home Medications ?Medication ?Instructions ?Recorded ?Confirmed oxcarbazepine 600 mg tablet 600 mg PO BID 02/05/23 01/11/25 lamotrigine 25 mg tablet 50 mg PO BID 10/10/24 01/11/25 levetiracetam 250 mg tablet 250 mg PO BID 10/10/24 01/11/25 omeprazole 20 mg capsule,delayed 20 mg PO .before meal 10/10/24 01/11/25 release vilazodone 20 mg tablet 20 mg PO .once daily 10/10/24 01/11/25 Allergies Allergy/AdvReac Type Severity Reaction Status Date / Time No Known Drug Allergies Allergy Verified 11/29/24 13:55 Opioid HPI Opioid Management Most Recent Opioid Data: Last Pain Scale 5 11/29/24, 14:36 Ur Phencyclidine Scrn, (NEGATIVE) Negative 10/27/23, 23:41 Review of Systems ROS Narrative A ten point review of systems is negative except as noted above. [facility] Medical History (Updated 01/11/25 @ 17:08 by Grant Mcqueen MD) Epilepsy ?G40.909 - Epilepsy, unspecified, not intractable, without status epilepticus (ICD-10) Social History Smoking status: Unknown if ever smoked Little interest or pleasure in doing things: not at all Feeling down, depressed, or hopeless: not at all Exam Narrative Exam Narrative: Nurses note and vital signs reviewed and patient is not hypoxic. General: The patient appears well and in no apparent distress. Patient is resting comfortably on cart. Skin: Warm, dry, no pallor noted. There is no rash noted. Head: Normocephalic, atraumatic. Neck is supple, no nuchal rigidity. Eye: Normal conjunctiva, no drainage, EOMI. PERRL Ears, Nose, Mouth, and Throat: oral mucosa is moist. Nares patent. Cardiovascular: Regular Rate and Rhythm Respiratory: Patient is in no distress, no accessory muscle use, lungs are clear to auscultation, no wheezing, rales or rhonchi Back: non-tender, no CVA tenderness bilaterally to percussion. GI: Soft and nontender Musculoskeletal: The patient has no evidence of calf tenderness, no pitting edema, symmetrical pulses noted bilaterally Neurological: A&O x4, normal speech. Moves all 4 extremities well. Slightly slow to answer some questions Psychiatric: Cooperative Constitutional Vital Signs, click to edit/add: Last Vital Signs Temp 98.0 F 01/11/25 15:20 Pulse 69 01/11/25 16:50 Resp 16 01/11/25 16:50 BP 137/83 01/11/25 16:31 Pulse Ox 97 01/11/25 16:50 O2 Del Method Room Air 01/11/25 15:20 Course Vital Signs Vital signs: Vital Signs Temperature 98.0 F 01/11/25 15:20 Pulse Rate 111 H 01/11/25 15:20 Respiratory Rate 18 01/11/25 15:20 Blood Pressure 168/81 H 01/11/25 15:20 Pulse Oximetry 94 L 01/11/25 15:20 Oxygen Delivery Method Room Air 01/11/25 15:20 Temperature 98.0 F 01/11/25 15:20 Pulse Rate 69 01/11/25 16:50 Respiratory Rate 16 01/11/25 16:50 Blood Pressure 137/83 01/11/25 16:31 Pulse Oximetry 97 01/11/25 16:50 Oxygen Delivery Method Room Air 01/11/25 15:20 Medical Decision Making MDM Narrative Medical decision making narrative: Blood work is essentially negative. He has had no further seizure activity here and is able to be discharged home. He is ambulatory and family is comfortable taking him home. He is back to his baseline. Differential Diagnosis Differential Diagnosis: Seizure, anxiety Lab Data Lab results reviewed: Yes I reviewed the patient's lab results Labs: Lab Results 01/11/25 Range/Units 15:30 WBC 6.3 (4.0-11.0) 10^3/uL RBC 5.36 (4.70-6.10) 10^6/uL Hgb 15.7 (14.0-18.0) g/dL Hct 43.5 (42.0-54.0) % MCV 81.2 (80.0-94.0) fL MCH 29.3 (25.9-34.0) pg MCHC 36.1 H (29.9-35.2) g/dL RDW 12.2 (11.0-15.0) % Plt Count 266 (150-450) 10^3/uL MPV 9.0 L (9.5-13.5) fL Neut % (Auto) 59.0 (43.0-75.0) % Lymph % (Auto) 32.2 (20.5-60.0) % [place] % (Auto) 6.3 (1.7-12.0) % Eos % (Auto) 1.1 (0.9-7.0) % Baso % (Auto) 0.8 (0.2-2.0) % Neut # (Auto) 3.7 (1.4-6.5) 10^3/uL Lymph # (Auto) 2.0 (1.2-3.8) 10^3/uL [place] # (Auto) 0.4 (0.3-0.8) 10^3/uL Eos # (Auto) 0.1 (0.0-0.7) 10^3/uL Baso # (Auto) 0.1 (0.0-0.1) 10^3/uL Abs Immat Gran (auto) 0.04 H (0.00-0.03) 10^3/uL Imm/Tot Granulo (auto) 0.6 H (0.0-0.5) % Sodium 138 (136-145) mmol/L Potassium 4.1 (3.5-5.1) mmol/L Chloride 101 (98-107) mmol/L Carbon Dioxide 21.3 (21.0-32.0) mmol/L Anion Gap 19.8 BUN 13.0 (7.0-18.0) mg/dL Creatinine 1.21 (0.70-1.30) mg/dL Est GFR ( Amer) >60 (>=60 mL/min/1.73m^2) Est GFR (Non-Af Amer) >60 (>=60 mL/min/1.73m^2) BUN/Creatinine Ratio 10.7 Glucose 127 H (74-106) mg/dL Calcium 9.5 (8.5-10.1) mg/dL ECG Data Attestation: I personally reviewed and interpreted this ECG as follows: (EKG on my interpretation shows normal sinus rhythm with rate of 99 and no acute change) Discharge Plan Discharge Chief Complaint: Seizure Clinical Impression: Seizure Patient Disposition: Home, Self-Care Time of Disposition Decision: 17:08 Condition: Good Mode of Transportation: Private Vehicle Prescriptions / Home Meds: No Action oxcarbazepine 600 mg tablet 600 mg PO BID lamotrigine 25 mg tablet 50 mg PO BID levetiracetam 250 mg tablet 250 mg PO BID omeprazole 20 mg capsule,delayed release(DR/EC) 20 mg PO .before meal vilazodone 20 mg tablet 20 mg PO .once daily Print Language: South African Instructions: Recurrent Seizures in Adults (ED) Referrals: MANNY CHI [Primary Care Provider, Family Practice] - 1 week
--- OUTSIDE RECORDS SUMMARY | 2025-01-11 15:21 | XMS_ITS | Clinical Summary ---
Author Organization [facility] Address [facility] [id number] [address] [place] [address] Care Team Providers Care Rail Engineer Name Role Phone ElisabethEmeli Harinder FOSTER WINDER-NUMERICAL CONTROL MACHINE MACHINIST Primary Care Provider Allergies No known active allergies Medications albuterol (PROVENTIL HFA;VENTOLIN HFA) 90 mcg/actuation inhaler albuterol sulfate HFA 90 mcg/actuation aerosol inhaler Inhale 2 puffs as needed by inhalation route. Active acyclovir (ZOVIRAX) 200 mg capsule acyclovir 200 mg capsule Active amoxicillin (AMOXIL) 500 mg capsule amoxicillin 500 mg capsule Active lamoTRIgine (LaMICtal) 200 mg tabletIndicatio ns:Cryptogenic localization-re lated epilepsy (CMS-HCC) Take 1 tablet (200 mg total) by mouth daily. 90 tablet 2 2 Active OXcarbazepine (TRILEPTAL) 300 mg tabletIndicatio ns:Cryptogenic localization-re lated epilepsy (CMS-HCC) Take 1 tablet (300 mg total) by mouth 2 (two) times a day. 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 Social History Tobacco Use Types Packs/Day Years Used Date Smoking Tobacco: Never Smokeless Tobacco: Never Alcohol Use Standard Drinks/Week Comments No 0 (1 standard drink = 0.6 oz pur e alcohol) AUDIT-C Answer Date Recorded Frequency of Alcohol Consumption Never 10/29/2018 Average Number of Drinks Not on file 019 Frequency of Binge Drinking Not on file 09/2018 PHQ-2 Answer Date Recorded Total Score 0 08/28/2021 Childcare Answer Date Recorded Childcare Unknown 01/08/2019 Employment Answer Date Recorded Employment Unknown 01/08/2019 Purpose - Life Answer Date Recorded Purpose and direction in life Unknown Sex and Gender Information Value Date Recorded Sex Assigned at Not on file Legal Sex Male 11:04 AM EDT Gender Identity Not on file Sexual Orientation Not on file Last Filed Vital Signs Vital Sign Reading Time Taken Comments Blood Pressure 131/85 08/28/2021 10:54 AM EST Pulse 79 08/28/2021 10:54 AM EST Temperature - - Respiratory Rate - - Oxygen Saturation - - Inhaled Oxygen Concentration - - Weight 75.3 kg (166 lb) 08/28/2021 10:54 AM EST Height 177.8 cm (5' 10 ) 08/28/2021 10:54 AM EST Body Mass Index 23.82 08/28/2021 10:54 AM EST Plan of Treatment Health Maintenance Due Date Last Done Comments Depression Screening 2008 Tobacco Screening 2008 Adult BMI Screening 2014 DTaP,Tdap and Td Vaccines (7 - Tdap) 11/04/2019 11/03/2009, 08/07/2001, 11/25/1997, Additional history exists Influenza Vaccine 03/29/2025 Medical Devices Not on file Insurance [place] [employer] Care Teams Rail Engineer Relationship Specialty Start Date End Date Emeli Barber APRN-NUMERICAL CONTROL MACHINE MACHINIST [address] [facility], [place] [address] PCP - General Family Medicine 11/08/20
--- OUTSIDE RECORDS SUMMARY | 2025-01-11 15:21 | XMS_ITS | Encounter Summary ---
Author Organization [facility] Address [facility] [place] [address] Care Team Providers Care Popped Corn Oven Attendant Name Role Phone Emeli Barber [place] Primary Care Provider + Source Comments In the event this information is protected by the Federal Confidentiality of Alcohol and Drug AbusePatient Records regulations: The Federal rules restrict any use of the information to criminally investigate or prosecute any alcohol or drug abuse patient.[facility] Encounter Details Date Type Department Care Team (Late st Contact Info) Description 11/13/2023 Patient Msg Neurology [address] [id number] Provider, [facility] Admission Social History Tobacco Use Types Packs/Day Years Used Date Smoking Tobacco: Never Smokeless Tobacco: Never Alcohol Use Standard Drinks/Week Comments Not Currently 0 (1 standard drink = 0.6 oz pur e alcohol) Area Deprivation Index Answer Date Paulo rded National Score (1-100), lower number is lower ri sk Not on file 01/20/2021 State Score (1-10), lower number is lower risk N ot on file 01/20/2021 Data from: https://www.neighborhoodatlas.medicine.[facility].edu/. Last address used for calculation Not on file 01/20/2021 Sex and Gender Information Value Date Recorded Sex Assigned at Not on file Legal Sex Male 10:43 AM EDT Gender Identity Not on file Sexual Orientation Not on file documented as of this encounter Plan of Treatment Not on file documented as of this encounter Visit Diagnoses Not on filedocumented in this encounter Care Teams Popped Corn Oven Attendant Relationship Specialty Start Date End Date Emeli Barber CNP [address] [place] [address] PCP - General Internal Medicine 07/17/21 documented as of this encounter
--- OUTSIDE RECORDS SUMMARY | 2025-01-11 15:21 | XMS_ITS | Encounter Summary ---
Author Organization [facility] Address [facility] [place] [address] Care Team Providers Care Utility Locate Technician Name Role Phone Emeli Barber [place] Primary Care Provider + Source Comments In the event this information is protected by the Federal Confidentiality of Alcohol and Drug AbusePatient Records regulations: The Federal rules restrict any use of the information to criminally investigate or prosecute any alcohol or drug abuse patient.[facility] Encounter Details Date Type Department Care Team (Late st Contact Info) Description 11/28/2023 Patient Msg Neurology [address] [id number] Provider, Ccf Admission Social History Tobacco Use [...] N ot on file 01/20/2021 Data from: https://www.neighborhoodatlas.medicine.[facility].edu/. Last address used for calculation Not on [...] on filedocumented in this encounter Care Teams Utility Locate Technician Relationship Specialty Start Date End Date Emeli Barber CNP [address] [place] [address] PCP - General Internal Medicine 07/17/21 documented as of this encounter
--- OUTSIDE RECORDS SUMMARY | 2025-01-11 15:22 | XMS_ITS | Encounter Summary ---
Author Organization [facility] Address [address] [place], [place] [id number] Care Team Providers Care Bridge Game Director Name Role Phone Inocencio, Zander Roberts DO Primary Care Provider + Emeli Barber CNP Primary Care Provider + Source Comments In the event this information is protected by the Federal Confidentiality of Alcohol and Drug AbusePatient Records regulations: The Federal rules restrict any use of the information to criminally investigate or prosecute any alcohol or drug abuse patient.[facility] Encounter Details Date Type Department Care Team (Late st Contact Info) Description 05/25/2021 Patient Msg Urology [address] [place], [place] [phone] Domi Scruggs MD [address] [place], [place] [phone] genetic testing Social History Tobacco Use Types Packs/Day Years [...] N ot on file 01/20/2021 Data from: https://www.neighborhoodatlas.medicine.[facility].edu/. Last address used for calculation Not on file 01/20/2021 Sex and Gender Information Value Date Recorded Sex Assigned at Not on file Legal Sex Male 10:43 AM EDT Gender Identity Not on file Sexual Orientation Not on file COVID-19 Exposure Response Date Recorded In the last month, have you been in contact with someone who was confirmed or suspected to have Coronavirus / COVID-19? No / Unsure 05/15/2021 8:45 AM EDT documented as of this encounter Plan of Treatment Not on file documented as of this encounter Visit Diagnoses Not on filedocumented in this encounter Additional Health Concerns Infection Onset Date Last Indicated Resolved Time COVID-19 Rule-Out 07/26/2021 08/28/2021 08/15/2021 8:51 PM EST documented as of this encounter Care Teams Bridge Game Director Relationship Specialty Start Date End Date Zander Painter DO [address] [place] [address] PCP - General Family Medicine 03/29/17 07/16/21 Emeli Barber CNP [address] [place] [address] PCP - General Internal Medicine 07/17/21 documented as of this encounter
--- OUTSIDE RECORDS SUMMARY | 2025-01-11 15:22 | XMS_ITS | Patient Health Record ---
Author Organization [facility] Address [address] [place] [address] Care Team Providers Care Yard Supervisor Cotton Gin Name Role Phone Sylvie Shelton Primary Care Provider Reason For Referral No Information Medications Medication SIG (Take, Route, Fr equency, Duration) Notes Start Date End Date Status Ibuprofen 800 MG 1 tablet with food o r milk as needed Orally Three times a day 07/02/2023 Active LaMICtal Active Trileptal Active Ibuprofen 800 MG 1 tablet with food o r milk as needed Orally Three times a day 08/27/2022 Active Plan Of Treatment No Information Insurance Providers Payer Name Payer Address Payer Phone Subscriber Number Group Number Insured Name Patient Relationship to Insured Coverage Start Date Coverage End Date [employer] [place] [employer] [address] [address] [place] [address] [id number] COREY LOPEZ Self - patient is the insured 3 [employer] [place] [address] [place] [address] [id number] COREY LOPEZ Self - patient is the insured 3 [facility] ed 22. [address] [place] [address] [id number] COREY LOPEZ Self - patient is the insured 2 3 zMEDICAID CFC after [place]-ter med 22 [address] [place] [address] [id number] COREY LOPEZ Self - patient is the insured 2 3 zDENTAL [place]-ter med 22 [address] [address] [place] [address] [id number] COREY LOPEZ Self - patient is the insured 2 [facility] after [place]-ter med 22 [address] [place] [address] [id number] COREY LOPEZ Self - patient is the insured 2 3
--- OUTSIDE RECORDS SUMMARY | 2025-01-11 15:22 | XMS_ITS | Encounter Summary ---
Author Organization [facility] Address [facility] [place] [address] Care Team Providers Care Felt Carbonizer Name Role Phone Emeli Barber [place] Primary Care Provider + Source Comments In the event this information is protected by the Federal Confidentiality of Alcohol and Drug AbusePatient Records regulations: The Federal rules restrict any use of the information to criminally investigate or prosecute any alcohol or drug abuse patient.[facility] Encounter Details Date Type Department Care Team (Late st Contact Info) Description 06/22/2024 Patient Msg Neurology [address] [place], [place] [phone] Provider, Ccf Mumtaz Appointment Cancelation Social History Tobacco Use Types Packs/Day Years Used Date Smoking Tobacco: Never Smokeless Tobacco: Never Alcohol Use Standard Drinks/Week Comments Not Currently 0 (1 standard drink = 0.6 oz pur e alcohol) PHQ-2 Answer Date Recorded PHQ-2 score 0 05/05/2024 Area Deprivation Index Answer Date Paulo rded National Score (1-100), lower number is lower ri sk 87 12/30/2023 State Score (1-10), lower number is lower risk 8 12/30/2023 Data from: https://www.neighborhoodatlas.[facility]/. Last address used for calculation [address] 12/30/2023 Sex and Gender Information Value Date Recorded Sex Assigned at Not on file Legal Sex Male 10:43 AM EDT Gender Identity Not on file Sexual Orientation Not on file documented as of this encounter Functional Status * Are you deaf or do you have serious difficulty hearing? Answer Date of Assessment Author No 01/03/2024 6:50 AM Genna Ashley RN * Are you blind or do you have serious difficulty seeing, even when wearing glasses? Answer Date of Assessment Author No 01/03/2024 6:50 AM Genna Ashley RN * Do you have serious difficulty walking or climbing stairs? Answer Date of Assessment Author No 01/03/2024 6:50 AM Genna Ashley RN * Do you have difficulty dressing or bathing? Answer Date of Assessment Author No 01/03/2024 6:50 AM Genna Ashley RN * Because of a physical, mental, or emotional condition, do you have difficulty doing errands alone such as visiting a doctor's office or shopping? Answer Date of Assessment Author No 01/03/2024 6:50 AM Genna Ashley RN documented as of this encounter Mental Status * Because of a physical, mental, or emotional condition, do you have serious difficulty concentrating, remembering, or making decisions? Answer Entry Date Author No 01/03/2024 6:50 AM Genna Ashley RN documented in this encounter Plan of Treatment Not on file documented as of this encounter Visit Diagnoses Not on filedocumented in this encounter Care Teams Felt Carbonizer Relationship Specialty Start Date End Date Emeli Barber CNP [address] [place] [address] PCP - General Internal Medicine 07/17/21 documented as of this encounter
--- OUTSIDE RECORDS SUMMARY | 2025-01-11 15:22 | XMS_ITS | Encounter Summary ---
Author Organization [facility] Address [address] [place], [place] [address] Care Team Providers Care Retail Analyst Name Role Phone Inocencio, Zander Roberts DO Primary Care Provider + Emeli Barber CNP Primary Care Provider + Source Comments In the event this information is protected by the Federal Confidentiality of Alcohol and Drug AbusePatient Records regulations: The Federal rules restrict any use of the information to criminally investigate or prosecute any alcohol or drug abuse patient.[facility] Encounter Details Date Type Department Care Team (Late st Contact Info) Description 06/04/2021 Get Medical Advice Urology [address] [place], [place] [phone] Domi Scruggs MD [address] [place], [place] [phone] Upcoming Appointment Question Social History Tobacco Use Types Packs/Day Years [...] N ot on file 01/20/2021 Data from: https://www.neighborhoodatlas.medicine.[facility].edu/. Last address used for calculation Not on [...] documented as of this encounter Care Teams Retail Analyst Relationship Specialty Start Date End Date Zander Painter DO [address] [place] [address] PCP - General Family Medicine 03/29/17 07/16/21 Emeli Barber CNP [address] [place] [address] PCP - General Internal Medicine 07/17/21 documented as of this encounter
--- OUTSIDE RECORDS SUMMARY | 2025-01-11 15:22 | XMS_ITS | Encounter Summary ---
Author Organization [facility] Address [address] [place], [place] [id number] Care Team Providers Care Office Services Clerk Name Role Phone Inocencio, Zander Roberts DO Primary Care Provider + Emeli Barber CNP Primary Care Provider + Source Comments In the event this information is protected by the Federal Confidentiality of Alcohol and Drug AbusePatient Records regulations: The Federal rules restrict any use of the information to criminally investigate or prosecute any alcohol or drug abuse patient.[facility] Encounter Details Date Type Department Care Team (Late st Contact Info) Description 01/24/2021 Patient Msg Urology [address] [place], [place] [phone] Domi Scruggs MD [address] [place], [place] [phone] response Social History Tobacco Use Types Packs/Day Years [...] ot on file 01/20/2021 Data from: https://www.neighborhoodatlas.medicine.[facility].edu/. Last address used for calculation Not [...] have Coronavirus / COVID-19? No / Unsure 01/23/2021 11:46 AM EDT documented as of this encounter Plan of Treatment Not on file documented as of this encounter Visit Diagnoses Not on filedocumented in this encounter Additional Health Concerns Infection Onset Date Last Indicated Resolved Time COVID-19 Rule-Out 07/26/2021 08/28/2021 08/15/2021 8:51 PM EST documented as of this encounter Care Teams Office Services Clerk Relationship Specialty Start Date End Date Zander Painter DO [address] [place] [address] PCP - General Family Medicine 03/29/17 07/16/21 Emeli Barber CNP [address] [place] [address] PCP - General Internal Medicine 07/17/21 documented as of this encounter
--- OUTSIDE RECORDS SUMMARY | 2025-01-11 15:22 | XMS_ITS | Clinical Summary ---
Author Organization [facility] Address [address] [place], [place] [address] Care Team Providers Care Transcriber Name Role Phone Emeli Barber CNP Primary Care Provider [phone] Allergies No known active allergies Medications OXcarbazepine (TRILEPTAL) 300 mg tablet Take 600 mg by mouth two times a day. Active lamoTRIgine (LAMICTAL) 25 mg tabletIndicatio ns:Seizure-like activity (HCC) Take 2 tablets by mouth two times a day. In addition to 200 mg twice a day for a total of 250 mg twice a day 120 tablet 11 01/29/2024 01/29/20 25 Active lamoTRIgine (LAMICTAL) 200 mg tabletIndicatio ns:Seizure-like activity (HCC) Take 1 tablet by mouth two times a day. 180 tablet 1 07/28/2024 01/25/20 25 Active Active Problems Problem Noted Date Diagnosed Date Psychogenic nonepileptic seizure 01/01/2024 Seizure-like activity 12/30/2023 Cryptogenic localization-related epilepsy 2018 Assessment & Plan (08/03/2021 9:58 AM EST): Assessment: on trileptal and Lamictal Family History Medical History Relation Comments Tourette syndrome Father epilepsy Maternal Aunt Migraines Sister Relation Status Comments Father Maternal Aunt Other Sister Social History Tobacco Use Types Packs/Day Years Used Date Smoking Tobacco: Never Smokeless Tobacco: Never Tobacco Cessation:Counseling Given: No Alcohol Use Standard Drinks/Week Comments Not Currently 0 (1 standard drink = 0.6 oz pur e alcohol) PHQ-2 Answer Date Recorded PHQ-2 score 0 06/30/2024 Area Deprivation Index Answer Date Paulo rded National Score (1-100), lower number is lower ri sk 87 12/30/2023 State Score (1-10), lower number is lower risk 8 12/30/2023 Data from: https://www.neighborhoodatlas.medicine.[facility]/. Last address used for calculation [address] 12/30/2023 Sex and Gender Information Value Date Recorded Sex Assigned at Not on file Legal Sex Male 10:43 AM EDT Gender Identity Not on file Sexual Orientation Not on file Last Filed Vital Signs Vital Sign Reading Time Taken Comments Blood Pressure 133/82 01/29/2024 3:18 PM EDT Pulse 81 01/29/2024 3:18 PM EDT Temperature 36.6 C (97.9 F) 01/03/2024 4:48 AM EDT Respiratory Rate 16 01/03/2024 4:48 AM EDT Oxygen Saturation 98% 01/29/2024 3:18 PM EDT Inhaled Oxygen Concentration - - Weight 78.5 kg (173 lb) 01/29/2024 3:18 PM EDT Height 175.3 cm (5' 9 ) 01/29/2024 3:18 PM EDT Body Mass Index 25.55 01/29/2024 3:18 PM EDT Plan of Treatment Health Maintenance Due Date Last Done Comments Hepatitis B Vaccine (3 of 3 - 3-dose series) 02/05/1997 1996, 1996 Anxiety Screening 2014 Depression Screening 2014 HIV Screening 2014 Hepatitis C Screening 2014 DTaP,Tdap,Td Vaccine (7 - Tdap) 11/04/2019 11/03/2009, 08/07/2001, 11/25/1997, Additional history exists Covid-19 Vaccine (2023-2 5 season) 2024 05/10/2023, 04/16/2023 Influenza Vaccine (Season Ended) 2025 Insurance [facility] MEDICAID Care Teams Transcriber Relationship Specialty Start Date End Date Emeli Barber, COMPATIBILITY TEST ENGINEER [address] [place], [place] [phone] PCP - General Internal Medicine 07/17/21
--- OUTSIDE RECORDS SUMMARY | 2025-01-11 15:22 | XMS_ITS | Encounter Summary ---
Author Organization [facility] Address [address] [place] [address] Care Team Providers Care Forestry Aide Name Role Phone Emeli Barber [place] Primary Care Provider + Source Comments In the event this information is protected by the Federal Confidentiality of Alcohol and Drug AbusePatient Records regulations: The Federal rules restrict any use of the information to criminally investigate or prosecute any alcohol or drug abuse patient.[facility] Encounter Details Date Type Department Care Team (Late st Contact Info) Description 02/15/2024 [place] [address] Provider, Ccf Questionnaire Submission Social History Tobacco Use Types Packs/Day Years Used Date Smoking Tobacco: Never Smokeless Tobacco: Never Alcohol Use Standard Drinks/Week Comments Not Currently 0 (1 standard drink = 0.6 oz pur e alcohol) Area Deprivation Index Answer Date Paulo rded National Score (1-100), lower number is lower ri sk 87 12/30/2023 State Score (1-10), lower number is lower risk 8 12/30/2023 Data from: https://www.neighborhoodatlas.medicine.[facility].edu/. Last address used for calculation [address] [place] [address] 12/30/2023 Sex and Gender Information Value Date [...] on filedocumented in this encounter Care Teams Forestry Aide Relationship Specialty Start Date End Date Emeli Barber CNP [address] [place] [address] PCP - General Internal Medicine 07/17/21 documented as of this encounter
--- OUTSIDE RECORDS SUMMARY | 2025-01-11 15:22 | XMS_ITS | Encounter Summary ---
Author Organization [facility] Address [address] [place] [address] Care Team Providers Care Beater Dumper Name Role Phone Emeli Barber [place] Primary Care Provider + Source Comments In the event this information is protected by the Federal Confidentiality of Alcohol and Drug AbusePatient Records regulations: The Federal rules restrict any use of the information to criminally investigate or prosecute any alcohol or drug abuse patient.[facility] Encounter Details Date Type Department Care Team (Late st Contact Info) Description 08/30/2021 Get Medical Advice Urology [address] [place] [address] Domi Scruggs MD [address] [place] [address] Catheter Social History Tobacco Use Types Packs/Day Years [...] N ot on file 01/20/2021 Data from: https://www.neighborhoodatlas.medicine.[facility].edu/. Last address used for calculation Not [...] have Coronavirus / COVID-19? No / Unsure 08/31/2021 10:56 AM EST documented as of this encounter Plan of Treatment Not on file documented as of this encounter Visit Diagnoses Not on filedocumented in this encounter Care Teams Beater Dumper Relationship Specialty Start Date End Date Emeli Barber CNP [address] [place] [address] PCP - General Internal Medicine 07/17/21 documented as of this encounter
--- OUTSIDE RECORDS SUMMARY | 2025-01-11 15:22 | XMS_ITS | Encounter Summary ---
Author Organization [facility] Address [address] [place] [address] Care Team Providers Care Insurance Biller Name Role Phone Emeli Barber [facility] Primary Care Provider + Source Comments In the event this information is protected by the Federal Confidentiality of Alcohol and Drug AbusePatient Records regulations: The Federal rules restrict any use of the information to criminally investigate or prosecute any alcohol or drug abuse patient.[facility] Encounter Details Date Type Department Care Team (Late st Contact Info) Description 05/07/2024 Patient Msg Neurology [address] [place] [address] Virginie Moses, CHINESE INSTRUCTOR.BSA OFFICER [address] [place] [address] Workbook for CBT Social History Tobacco Use Types Packs/Day Years Used Date Smoking Tobacco: Never Smokeless Tobacco: Never Alcohol Use Standard Drinks/Week Comments Not Currently 0 (1 standard drink = 0.6 oz pur e alcohol) PHQ-2 Answer Date Recorded PHQ-2 score 0 05/05/2024 Area Deprivation Index Answer Date Paulo rded National Score (1-100), lower number is lower ri 87 12/30/2023 State Score (1-10), lower number is lower risk 8 12/30/2023 Data from: https://www.neighborhoodatlas.medicine.[facility]/. Last address used for calculation [address] 12/30/2023 Sex and Gender Information Value Date Recorded Sex Assigned at Not on file Legal Sex Male 10:43 AM EDT Gender Identity Not on file Sexual Orientation Not on file documented as of this encounter Functional Status * Are you deaf or do you have serious difficulty hearing? Answer Date of Assessment Author No 01/03/2024 6:50 AM EDT Genna Ferrell RN * Are you blind or do [...] on filedocumented in this encounter Care Teams Insurance Biller Relationship Specialty Start Date End Date Emeli Barber CNP [address] [place] [address] PCP - General Internal Medicine 07/17/21 documented as of this encounter
--- OUTSIDE RECORDS SUMMARY | 2025-01-11 15:22 | XMS_ITS | Encounter Summary ---
Author Organization [facility] Address [address] [place] [address] Care Team Providers Care Manager Manufacturing Name Role Phone Emeli Barber [place] Primary Care Provider + Source Comments In the event this information is protected by the Federal Confidentiality of Alcohol and Drug AbusePatient Records regulations: The Federal rules restrict any use of the information to criminally investigate or prosecute any alcohol or drug abuse patient.[facility] Encounter Details Date Type Department Care Team (Late st Contact Info) Description 09/13/2021 Get Medical Advice Urology [address] [place] [address] Domi Scruggs MD [address] [place] [address] Back to normal Social History Tobacco Use Types Packs/Day Years [...] N ot on file 01/20/2021 Data from: https://www.neighborhoodatlas.[facility].edu/. Last address used for calculation Not [...] AM EST documented as of this encounter Miscellaneous Notes * Telephone Encounter - Kriss Dowling MA - 09/13/2021 2:27 PM EST Pt had surgery 08/31/21 Patient had post op visit today Please advise message from patient documented in this encounter Plan of Treatment Not on file documented as of this encounter Visit Diagnoses Not on filedocumented in this encounter Care Teams Manager Manufacturing Relationship Specialty Start Date End Date Emeli Barber CNP [address] [place] [address] PCP - General Internal Medicine 07/17/21 documented as of this encounter
--- OUTSIDE RECORDS SUMMARY | 2025-01-11 15:22 | XMS_ITS | Encounter Summary ---
Author Organization [facility] Address [address] [place], [place] [id number] Care Team Providers Care Library Information Technician Name Role Phone Emeli Barber [facility] Primary Care Provider + Source Comments In the event this information is protected by the Federal Confidentiality of Alcohol and Drug AbusePatient Records regulations: The Federal rules restrict any use of the information to criminally investigate or prosecute any alcohol or drug abuse patient.[facility] Encounter Details Date Type Department Care Team (Late st Contact Info) Description 08/03/2021 Patient Msg Pre Anesthesia [address] [place] [address] Gisela Lawton APRN.SENIOR GEOLOGIST [address] [place] [address] Instructions for Surgery Social History Tobacco Use Types Packs/Day Years [...] N ot on file 01/20/2021 Data from: https://www.neighborhoodatlas.medicine.[facility].edu/. Last address used for calculation Not on [...] or suspected to have Coronavirus / COVID-19? Yes 08/03/2021 10:20 AM EST documented as of this encounter Plan of Treatment Not on file documented as of this encounter Visit Diagnoses Not on filedocumented in this encounter Additional Health Concerns Infection Onset Date Last Indicated Resolved Time COVID-19 Rule-Out 07/26/2021 08/28/2021 08/15/2021 8:51 PM EST documented as of this encounter Care Teams Library Information Technician Relationship Specialty Start Date End Date Emeli Barber, SENIOR GEOLOGIST [address] [place] [address] PCP - General Internal Medicine 07/17/21 documented as of this encounter
--- OUTSIDE RECORDS SUMMARY | 2025-01-11 15:22 | XMS_ITS | Encounter Summary ---
Author Organization [facility] Address [address] [place], [place] [address] Care Team Providers Care Baling Machine Operator Name Role Phone Emeli Barber [place] Primary [...] Care Team (Late st Contact Info) Description 08/28/2021 Patient Msg Urology [address] [address] Won Huerta MD [address] [address] Letter for work Social History Tobacco Use Types Packs/Day Years [...] N ot on file 01/20/2021 Data from: https://www.neighborhoodatlas.medicine.[facility].edu/. Last address used for calculation Not on [...] on filedocumented in this encounter Care Teams Baling Machine Operator Relationship Specialty Start Date End Date Emeli Barber, [place] [address] [place] [address] PCP - General Internal Medicine 07/17/21 documented as of this encounter
--- OUTSIDE RECORDS SUMMARY | 2025-01-11 15:22 | XMS_ITS | Encounter Summary ---
Author Organization [facility] Address [address] [place], [place] [address] Care Team Providers Care Movement Therapist Name Role Phone Inocencio, Zander Roberts DO Primary Care Provider + Emeli Barber CNP Primary Care Provider + Source Comments In the event this information is protected by the Federal Confidentiality of Alcohol and Drug AbusePatient Records regulations: The Federal rules restrict any use of the information to criminally investigate or prosecute any alcohol or drug abuse patient.[facility] Encounter Details Date Type Department Care Team (Late st Contact Info) Description 07/07/2021 Patient Msg Urology [address] [place], [place] [id number] Domi Scruggs MD [address] [place], [place] [address] next steps Social History Tobacco Use Types Packs/Day Years [...] N ot on file 01/20/2021 Data from: https://www.neighborhoodatlas.medicine.[facility].edu/. Last address used for calculation [...] documented as of this encounter Care Teams Movement Therapist Relationship Specialty Start Date End Date Zander Painter DO [address] [place] [address] PCP - General Family Medicine 03/29/17 07/16/21 Emeli Barber, TAR CHASER [address] [place], [place] [phone] PCP - General Internal Medicine 07/17/21 documented as of this encounter
--- OUTSIDE RECORDS SUMMARY | 2025-01-11 15:22 | XMS_ITS | Encounter Summary ---
Author Organization [facility] Address [address] [place] [address] Care Team Providers Care Oliver Filter Operator Name Role Phone Emeli Barber [place] Primary Care Provider + Source Comments In the event this information is protected by the Federal Confidentiality of Alcohol and Drug AbusePatient Records regulations: The Federal rules restrict any use of the information to criminally investigate or prosecute any alcohol or drug abuse patient.[facility] Encounter Details Date Type Department Care Team (Late st Contact Info) Description 07/25/2021 Patient Msg Urology [address] [place], [place] [id number] Domi Scruggs MD [address] [place] [address] COVID test needed 3 days prior to surgery - READ CAREFULLY Social History Tobacco Use Types Packs/Day Years [...] N ot on file 01/20/2021 Data from: https://www.neighborhoodatlas.[facility].edu/. Last address used for calculation Not [...] have Coronavirus / COVID-19? No / Unsure 07/24/2021 11:18 AM EST documented as of this encounter Plan of Treatment Not on file documented as of this encounter Visit Diagnoses Not on filedocumented in this encounter Additional Health Concerns Infection Onset Date Last Indicated Resolved Time COVID-19 Rule-Out 07/26/2021 08/28/2021 08/15/2021 8:51 PM EST documented as of this encounter Care Teams Oliver Filter Operator Relationship Specialty Start Date End Date Emeli Barber, [place] [address] [place] [address] PCP - General Internal Medicine 07/17/21 documented as of this encounter
--- OUTSIDE RECORDS SUMMARY | 2025-01-11 15:22 | XMS_ITS | Encounter Summary ---
Author Organization [facility] Address [address] [place] [address] Care Team Providers Care Tractor Operator Laser Leveling Name Role Phone Emeli Barber [place] Primary Care Provider + Source Comments In the event this information is protected by the Federal Confidentiality of Alcohol and Drug AbusePatient Records regulations: The Federal rules restrict any use of the information to criminally investigate or prosecute any alcohol or drug abuse patient.[facility] Encounter Details Date Type Department Care Team ([facility] st Contact Info) Description 04/06/2024 Patient Msg Neurology [address] [place] [address] Provider, Ccf Appointment change Social History Tobacco Use Types Packs/Day Years Used Date Smoking Tobacco: Never Smokeless Tobacco: Never Alcohol Use Standard Drinks/Week Comments Not Currently 0 (1 standard drink = 0.6 oz pur e alcohol) Area Deprivation Index Answer Date Paulo rded National Score (1-100), lower number is lower ri sk 87 12/30/2023 State Score (1-10), lower number is lower risk 8 12/30/2023 Data from: https://www.neighborhoodatlas.medicine.[facility].edu/. Last address used for calculation [address] [facility] 12/30/2023 Sex and Gender Information Value Date [...] 6:50 AM EDT Genna Ferrell RN * Do you have serious difficulty walking or climbing stairs? Answer Date of Assessment Author No 01/03/2024 6:50 AM ARONT Genna Ferrell RN * Do you have difficulty dressing or bathing? Answer Date of Assessment Author No 01/03/2024 6:50 AM Genna Ashley RN * Because of a physical, mental, or emotional condition, do you have difficulty doing errands alone such as visiting a doctor's office or shopping? Answer Date of Assessment Author No 01/03/2024 6:50 AM ARONT Genna Ferrell RN documented as of this encounter Mental Status * Because of a physical, mental, or emotional condition, do you have serious difficulty concentrating, remembering, or making decisions? Answer Entry Date Author No 01/03/2024 6:50 AM Genna Ashley RN documented in this encounter Plan of Treatment Not on file documented as of this encounter Visit Diagnoses Not on filedocumented in this encounter Care Teams Tractor Operator Laser Leveling Relationship Specialty Start Date End Date Emeli Barber CNP [address] [place] [address] PCP - General Internal Medicine 07/17/21 documented as of this encounter
--- OUTSIDE RECORDS SUMMARY | 2025-01-11 15:22 | XMS_ITS | Encounter Summary ---
Author Organization [facility] s tem Address [id number] [place] [address] Care Team Providers Care Reheater Name Role Phone Emeli Barber Harinder CLIENT CUSTOMER MANAGER-WARE CLEANER Primary Care Provider Reason for Visit * Reason Onset Date Comments Sooner appt 05/17/2021 Encounter Details Date Type Department Care Team (Late st Contact Info) Description 05/17/2021 Telephone [facility] Neurology [address] [place] [address] Jamila Crowe Sooner appt Social History Tobacco Use Types Packs/Day Years Used Date Smoking Tobacco: Never Smokeless Tobacco: Never Alcohol Use Standard Drinks/Week Comments No 0 (1 standard drink = 0.6 oz pur e alcohol) AUDIT-C Answer Date Recorded Frequency of Alcohol Consumption Never 10/29/2018 Average Number of Drinks Not on file 019 Frequency of Binge Drinking Not on file 09/2018 Childcare Answer Date Recorded Childcare Unknown 01/08/2019 Employment Answer Date Recorded Employment Unknown 01/08/2019 Purpose - Life Answer Date Recorded Purpose and direction in life Unknown Sex and Gender Information Value Date Recorded Sex Assigned at Not on file Legal Sex Male 11:04 AM EDT Gender Identity Not on file Sexual Orientation Not on file documented as of this encounter Miscellaneous Notes * Telephone Encounter - Jamila Crowe - 05/17/2021 1:51 PM EDT Patient is scheduled to follow up with Dr. Cordon on June 06, 2021. Patient states he needs a sooner appt. Due to employer. 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 Please call patient back at [phone] documented in this encounter Plan of Treatment Not on file documented as of this encounter Visit Diagnoses Not on filedocumented in this encounter Care Teams Reheater Relationship Specialty Start Date End Date Emeli Barber, CLIENT CUSTOMER MANAGER-WARE CLEANER [address] [place] [id number] PCP - General Family Medicine 11/08/20 documented as of this encounter
[2025-01-11 15:35] LABS: Basophils Absolute Auto 0.1 10^3/uL (0.0-0.1); Basophils Percent Auto 0.8 % (0.2-2.0); Eosinophils Absolute Auto 0.1 10^3/uL (0.0-0.7); Eosinophils Percent Auto 1.1 % (0.9-7.0); Hematocrit 43.5 % (42.0-54.0); Hemoglobin 15.7 g/dL (14.0-18.0); Immature Granulocytes Abs Auto 0.04 10^3/uL (0.00-0.03); Immature Granulocytes Pct Auto 0.6 % (0.0-0.5); Lymphocytes Percent Auto 32.2 % (20.5-60.0); Mean Corpuscular HGB Conc 36.1 g/dL (29.9-35.2); Mean Corpuscular Hemoglobin 29.3 pg (25.9-34.0); Mean Corpuscular Volume 81.2 fL (80.0-94.0); Monocytes Absolute Auto 0.4 10^3/uL (0.3-0.8); Monocytes Percent Auto 6.3 % (1.7-12.0); Neutrophils Absolute Auto 3.7 10^3/uL (1.4-6.5); Platelet Count 266 10^3/uL (150-450); Red Blood Count 5.36 10^6/uL (4.70-6.10); Red Cell Distribution Width 12.2 % (11.0-15.0); White Blood Count 6.3 10^3/uL (4.0-11.0)
--- NOTE | 2025-01-11 15:35 | PC.NURSE ---
Pt presents to ER via EMS post seizure Pt report from EMS states that patient is epileptic, takes medication, and has not had a seizure for 5 months until today Pt confirms this information Pt reports one seizure earlier today and one this afternoon (approximately 230) Seizure reported to be witnessed by family, occurring on a mattress on the floor Pt states he gets a dejavu like illness prior to seizing so he knows it is coming Pt reports being under a lot of stress lately and believes this is what is causing the breakthrough seizure Pt reports taking all Meds as prescribed and did take his morning medication Pt denies any discomfort at this time- pt had urinated on himself - changed out of his clothing Pt placed in a gown, EKG obtained, Lab work pulled from IV, and seizure pads placed Pt informed we will be monitoring him for this time
[2025-01-11 15:42] LABS: Anion Gap 19.8; BUN Creatinine Ratio 10.7; Calcium 9.5 mg/dL (8.5-10.1); Carbon Dioxide 21.3 mmol/L (21.0-32.0); Chloride 101 mmol/L (98-107); Estimated GFR (African America >60 (>=60 mL/min/1.73m^2); Estimated GFR (Non-African Ame >60 (>=60 mL/min/1.73m^2); Glucose 127 mg/dL (74-106); Potassium 4.1 mmol/L (3.5-5.1); Sodium 138 mmol/L (136-145)
[2025-01-11] MEDS: ACETAMINOPHEN 500 MG TABLET PO (17:19)
== END 2025-01-11 17:36 | disposition home or self-care (01) ==
PROVIDERS: Emergency Provider Emergency Medicine; PCP Nurse Practitioner Family
DX: G40.909 Epilepsy, unspecified, not intractable, without status epilepticus (principal); Z79.899 Other long term (current) drug therapy
CPT/HCPCS: 36415; 80048; 85025; 93005; 99284

== ENCOUNTER 2025-01-14 16:33 | Emergency (ER) | payer OTHER, SELFPAY ==
--- OUTSIDE RECORDS SUMMARY | 2023-09-09 10:41 | XMS_ITS ---
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 Name Role Phone Emeli Barber Primary Care Provider EMELI BARBER Unavailable [phone] REASON FOR VISIT update med list Medications [...] Active Encounters Encounter Location Date Provider Diagnosis [facility] [address] [place] [address] 09/09/2023 EMELI BARBER Plan Of Treatment No Information Progress Notes * Nando LOPEZDOB:1995 (28 yo M)Acc No.[id number]:09/09/2023 Patient: Nando Patten :1995 A ge:28 Y S ex:Male Address:[place] [address], [address] [place] [address], [id number] Subjective: * Chief Complaints: * U pdate [...] Date: Generated for Phillip france/Lisbeth/Javier on: 0 01/14/2025 04:38 PM EDT
--- OUTSIDE RECORDS SUMMARY | 2023-11-01 05:43 | XMS_ITS ---
Author Organization The [facility] in [place] Address [address] [place] [address] Care Team Providers Care Rn Progressive Care Unit Name Role Phone Emeli Barber Primary Care Provider EMELI BARBER Unavailable [phone] REASON FOR VISIT update from neuro Medications [...] Active Encounters Encounter Location Date Provider Diagnosis [facility] [address] [place] [address] 11/01/2023 EMELI BARBER Plan Of Treatment No Information Progress Notes * Nando LOPEZDOB:1995 (28 yo M)Acc No.[id number]:11/01/2023 Patient: Nando Patten :1995 A ge:28 Y S ex:Male Address:[address] [address], [address] [place] [address] Subjective: * Chief Complaints: * U pdate [...]
--- OUTSIDE RECORDS SUMMARY | 2024-01-07 05:30 | XMS_ITS ---
Author Organization [facility] Address [address] [place] [address] Care Team Providers Care Guide Travel Name Role Phone Sylvie Shelton Primary Care Provider Yanick Phelan [facility] [phone] REASON FOR VISIT FILLING Encounters Encounter Location Date Provider Diagnosis [address] [place] [address] 01/07/2024 Yanick Phelan Plan Of Treatment No Information Progress Notes * COREY LOPEZDOB:1995 (29 yo M)Acc No.[id number]:01/07/2024 Patient: COREY LOPEZ Provider: Darien Parr DDS :1995 A ge:28 Y S ex:Male Date:01/07/2024 Address:[address] [place] [address], [address] Pcp:Sylvie Murphy Subjective: * Chief Complaints: * 1 . FILLING. * Medical History: Objective: * Vitals: Assessment: Plan: * Treatment: * Images: * Electronic signature of Chris Phelan on 01/14/2025 at 04:38 PM EDT Sign off status: Pending * Provider: Darien Parr DDS Date: 01/07/2024 Generated for Phillip france/Lisbeth/eTransmitting on: 01/14/2025 04:38 PM EDT
--- OUTSIDE RECORDS SUMMARY | 2024-01-24 05:30 | XMS_ITS ---
Author Organization [facility] Address [address] [place] [address] Care Team Providers Care J2Ee Software Engineer Name Role Phone Sylvie Shelton Primary Care Provider REASON FOR VISIT RCT Encounters Encounter Location Date Provider Diagnosis [place] [address] [place] [address] 01/24/2024 Sylvie Francisco Plan Of Treatment No Information Progress Notes * COREY LOPEZDOB:1995 (29 yo M)Acc No.[id number]:01/24/2024 Patient: Darien CROWECHIRAGCOREY Provider: Uzair FRANCISCO DDS :1995 A ge:28 Y S ex:Male Date:01/24/2024 Address:[address] [place] [address], [address] Subjective: * Chief Complaints: * 1 . RCT. * Medical History: Objective: * Vitals: Assessment: Plan: * Treatment: * Images: * Electronic signature of Winifred Francisco DDS on 01/14/2025 at 04:37 PM EDT Sign off status: Pending * Provider: Uzair FRANCISCO DDS Date: 01/24/2024 Generated for Printi ng/Faxing/eTransmitting on: 01/14/2025 04:37 PM EDT
--- OUTSIDE RECORDS SUMMARY | 2024-10-01 07:30 | XMS_ITS ---
Author Organization The [facility] in [place] Address [address] [place] [address] Care Team Providers Care Supervisor Cigar Making Hand Name Role Phone Emeli Barber Primary Care [...] Problem Status W/U Status Risk Notes Problem Depression, recurrent (F33.9) Active confirmed Problem Gastroesophageal reflux disease (102029232) GERD (gastroesopha geal reflux disease) (K21.9) Active confirmed Vital Signs Blood pressure systolic 112 mm Hg 10/02/19 25 Blood pressure diastolic 70 mm Hg 025 Height 65 in 10/01/2024 Weight 181 lbs 10/01/2024 BMI 30.12 kg/m2 10/01/2024 Encounters Encounter Location Date Provider Diagnosis [facility] [address] [place] [address] 10/01/2024 Emeli Barber Depression, recurrent F33.9 and [...] Notes * Chrissy LOPEZDOB:1995 (29 yo M)Acc No.[id number]:10/01/2024 Progress Note Patient: Darien PEARLChrissy Provider: Amari Barber ([facility]), NUTRITION MANAGER :1995 A ge:29 Y S ex:Male Date:10/01/2024 Address:[address] [place], [place] [phone] Check In:11:22 AM ESTCheck O ut:11:52 AM [...] List Q60.0 Renal agenesis, unil ateral Modified On:01/23/2023/U Status:confirmed R74.8 Elevated liver enzym es Modified On:01/23/2023/U Status:confirmed J45.990 Exercise-induced ast hma Modified On:01/23/2023/U Status:confirmed G40.209 Complex partial seiz ure Modified [...] fu dentist * Preventive Medicine: Screenings/Counseling: B VA ACTION PLAN Above Normal BMI Follow-up D ietary management education, guidance, and counseling * Follow Up: 4 Weeks,prn * * Electronically signed by Cynthia Barber NP, SENIOR PROJECT ENGINEER.NUTRITION MANAGER.[id number] on 10/02/2024 at 11:32 AM EST Sign off status: Completed Visit Status: C HK (Check Out) true * Provider: Amari Barber ([facility]), NUTRITION MANAGER Date: 0 10/01/2024 Generated for Phillip france/Lisbeth/eTransmitting on: 0 01/14/2025 04:39 PM EDT History and Physical Notes * HPI (History of Present Illness) Category Sub-Category Detail Notes Category Not es General Macy K seeing neurology vilazodone refill out of [...]
--- OUTSIDE RECORDS SUMMARY | 2025-01-14 16:37 | XMS_ITS | Encounter Summary ---
Author Organization [facility] Address [facility] [place] [address] Care Team Providers Care Body Mechanic Name Role Phone Emeli Barber [place] Primary Care Provider + Source Comments In the event this information is protected by the Federal Confidentiality of Alcohol and Drug AbusePatient Records regulations: The Federal rules restrict any use of the information to criminally investigate or prosecute any alcohol or drug abuse patient.[facility] Encounter Details Date Type Department Care Team (Late st Contact Info) Description 11/28/2023 Patient Msg Neurology [address] [place] [id number] Provider, Ccf Admission Social History Tobacco Use [...] N ot on file 01/20/2021 Data from: https://www.neighborhoodatlas.medicine.[facility].edu/. Last address used for calculation Not [...] on filedocumented in this encounter Care Teams Body Mechanic Relationship Specialty Start Date End Date Emeli Barber CNP [address] [place] [address] PCP - General Internal Medicine 07/17/21 documented as of this encounter
--- OUTSIDE RECORDS SUMMARY | 2025-01-14 16:37 | XMS_ITS | Encounter Summary ---
Author Organization [facility] Address [address] [place] [address] Care Team Providers Care Information Strategist Name Role Phone Emeli Barber [place] Primary Care Provider + Source Comments In the event this information is protected by the Federal Confidentiality of Alcohol and Drug AbusePatient Records regulations: The Federal rules restrict any use of the information to criminally investigate or prosecute any alcohol or drug abuse patient.[facility] Encounter Details Date Type Department Care Team (Late st Contact Info) Description 09/13/2021 Get Medical Advice Urology [address] [place] [address] Domi Scruggs MD [address] [place] [address] Back to normal Social History Tobacco Use [...] N ot on file 01/20/2021 Data from: https://www.neighborhoodatlas.[facility].edu/. Last address used for calculation [...] on filedocumented in this encounter Care Teams Information Strategist Relationship Specialty Start Date End Date Emeli Barber CNP [address] [place] [address] PCP - General Internal Medicine 07/17/21 documented as of this encounter
--- OUTSIDE RECORDS SUMMARY | 2025-01-14 16:37 | XMS_ITS | Encounter Summary ---
Author Organization [facility] Address [address] [place], [place] [id number] Care Team Providers Care Microfilm Duplicating Unit Supervisor Name Role Phone Emeli Barber [place] Primary Care Provider + Source Comments In the event this information is protected by the Federal Confidentiality of Alcohol and Drug AbusePatient Records regulations: The Federal rules restrict any use of the information to criminally investigate or prosecute any alcohol or drug abuse patient.[facility] Encounter Details Date Type Department Care Team (Late st Contact Info) Description 08/28/2021 Patient Msg Urology [address] [address] Won Huerta MD [address] [address] Letter for work Social History Tobacco Use [...] N ot on file 01/20/2021 Data from: https://www.neighborhoodatlas.medicine.[facility].edu/. Last address used for calculation Not on [...] on filedocumented in this encounter Care Teams Microfilm Duplicating Unit Supervisor Relationship Specialty Start Date End Date Emeli Barber, [place] [address] [place] [address] PCP - General Internal Medicine 07/17/21 documented as of this encounter
[2025-01-14 16:38] VITALS: BP 146/85; PULSE 77; TEMP 36.6; O2SAT 97; BMI 27.5
--- OUTSIDE RECORDS SUMMARY | 2025-01-14 16:38 | XMS_ITS | Encounter Summary ---
Author Organization [facility] Address [address] [place] [address] Care Team Providers Care Fare Enforcement Officer Name Role Phone Emeli Barber [place] Primary Care Provider + Source Comments In the event this information is protected by the Federal Confidentiality of Alcohol and Drug AbusePatient Records regulations: The Federal rules restrict any use of the information to criminally investigate or prosecute any alcohol or drug abuse patient.[facility] Encounter Details Date Type Department Care Team (Late st Contact Info) Description 07/25/2021 Patient Msg Urology [address] [place], [place] [phone] Domi Scruggs MD [address] [facility] [place] [address] COVID test needed 3 days prior to [...] N ot on file 01/20/2021 Data from: https://www.neighborhoodatlas.medicine.[facility].edu/. Last address used for calculation [...] documented as of this encounter Care Teams Fare Enforcement Officer Relationship Specialty Start Date End Date Emeli Barber, [place] [address] [place] [address] PCP - General Internal Medicine 07/17/21 documented as of this encounter
--- OUTSIDE RECORDS SUMMARY | 2025-01-14 16:38 | XMS_ITS | Clinical Summary ---
Author Organization [facility] Address [address] [place], [place] [address] Care Team Providers Care Soccer Player Name Role Phone Emeli Barber CNP Primary Care Provider [phone] Allergies No known active allergies Medications OXcarbazepine [...] lower risk 8 12/30/2023 Data from: https://www.neighborhoodatlas.medicine.[facility]/. Last address used for calculation [address] [...] 04/16/2023 Influenza Vaccine (Season Ended) 2025 Insurance [facility] MEDICAID Care Teams Soccer Player Relationship Specialty Start Date End Date Emeli Barber, DISCOTHEQUE DANCER [address] [place], [place] [phone] PCP - General Internal Medicine 07/17/21
--- OUTSIDE RECORDS SUMMARY | 2025-01-14 16:38 | XMS_ITS | Encounter Summary ---
Author Organization [facility] Address [address] [place], [place] [address] Care Team Providers Care Real Estate Economist Name Role Phone Emeli Barber [facility] Primary Care Provider + Source Comments In the event this information is protected by the Federal Confidentiality of Alcohol and Drug AbusePatient Records regulations: The Federal rules restrict any use of the information to criminally investigate or prosecute any alcohol or drug abuse patient.[facility] Encounter Details Date Type Department Care Team (Late st Contact Info) Description 08/03/2021 Patient Msg Pre Anesthesia [address] [place] [address] Gisela Lawton APRN.WAITER/WAITRESS TAVERN [address] [place] [address] Instructions for Surgery Social History Tobacco Use [...] N ot on file 01/20/2021 Data from: https://www.neighborhoodatlas.medicine.[facility].edu/. Last address used for calculation [...] documented as of this encounter Care Teams Real Estate Economist Relationship Specialty Start Date End Date Emeli Barber, WAITER/WAITRESS TAVERN [address] [place] [address] PCP - General Internal Medicine 07/17/21 documented as of this encounter
--- OUTSIDE RECORDS SUMMARY | 2025-01-14 16:38 | XMS_ITS | Patient Health Record ---
Author Organization [facility] Address [address] [place] [address] Care Team Providers Care Shellfish Meat Separator Operator Name Role Phone Sylvie Shelton Primary Care [...] Coverage Start Date Coverage End Date [employer] [place] [employer] [address] [address] [place] [address] [id number] COREY LOPEZ Self - patient is the insured 3 [employer] [place] [address] [place] [address] [id number] COREY LOPEZ Self - patient is the insured 3 [facility] ed 22. [address] [place] [address] [id number] COREY LOPEZ Self - patient is the insured 2 3 zMEDICAID CFC after [place]-ter med 22 [address] [place] [address] [id number] COREY LOPEZ Self - patient is the insured 2 3 zDENTAL [place]-ter med 22 [address] [address] [place] [address] [id number] COREY LOPEZ Self - patient is the insured 2 3 [facility] CFC after [place]-ter med 22 [address] [place] [address] [id number] COREY LOPEZ Self - patient is the insured 2 3
--- OUTSIDE RECORDS SUMMARY | 2025-01-14 16:38 | XMS_ITS | Encounter Summary ---
Author Organization [facility] Address [address] [place] [address] Care Team Providers Care Candy Department Manager Name Role Phone Emeli Barber [place] Primary Care Provider + Source Comments In the event this information is protected by the Federal Confidentiality of Alcohol and Drug AbusePatient Records regulations: The Federal rules restrict any use of the information to criminally investigate or prosecute any alcohol or drug abuse patient.[facility] Encounter Details Date Type Department Care Team (Late st Contact Info) Description 08/30/2021 Get Medical Advice Urology [address] [place] [address] Domi Scruggs MD [address] [place] [address] Catheter Social History Tobacco Use Types Packs/Day [...] N ot on file 01/20/2021 Data from: https://www.neighborhoodatlas.medicine.[facility].edu/. Last address used for calculation [...] on filedocumented in this encounter Care Teams Candy Department Manager Relationship Specialty Start Date End Date Emeli Barber CNP [address] [place] [address] PCP - General Internal Medicine 07/17/21 documented as of this encounter
--- OUTSIDE RECORDS SUMMARY | 2025-01-14 16:39 | XMS_ITS | Encounter Summary ---
Author Organization [facility] Address [address] [place] [address] Care Team Providers Care Drier Transfer Car Operator Name Role Phone Emeli Barber [facility] Primary Care Provider + Source Comments In the event this information is protected by the Federal Confidentiality of Alcohol and Drug AbusePatient Records regulations: The Federal rules restrict any use of the information to criminally investigate or prosecute any alcohol or drug abuse patient.[facility] Encounter Details Date Type Department Care Team (Late st Contact Info) Description 05/07/2024 Patient Msg Neurology [address] [place] [address] Virginie Moses, NITROGLYCERIN SEPARATOR OPERATOR.CAR LOADER [address] [place] [address] Workbook for CBT Social History [...] is lower risk 8 12/30/2023 Data from: https://www.neighborhoodatlas.medicine.[facility]/. Last address used for calculation [address] [...] on filedocumented in this encounter Care Teams Drier Transfer Car Operator Relationship Specialty Start Date End Date Emeli Barber CNP [address] [place] [address] PCP - General Internal Medicine 07/17/21 documented as of this encounter
--- OUTSIDE RECORDS SUMMARY | 2025-01-14 16:39 | XMS_ITS | Encounter Summary ---
Author Organization [facility] Address [address] [place] [address] Care Team Providers Care Frame Pulley Mortising Machine Operator Name Role Phone Emeli Barber [place] Primary Care Provider + Source Comments In the event this information is protected by the Federal Confidentiality of Alcohol and Drug AbusePatient Records regulations: The Federal rules restrict any use of the information to criminally investigate or prosecute any alcohol or drug abuse patient.[facility] Encounter Details Date Type Department Care Team ([facility] st Contact Info) Description 04/06/2024 Patient Msg Neurology [address] [place] [address] Provider, Ccf Appointment change Social [...] is lower risk 8 12/30/2023 Data from: https://www.neighborhoodatlas.medicine.[facility].edu/. Last address used for calculation [address] [facility] 12/30/2023 Sex and Gender Information Value Date [...] on filedocumented in this encounter Care Teams Frame Pulley Mortising Machine Operator Relationship Specialty Start Date End Date Emeli Barber CNP [address] [place] [address] PCP - General Internal Medicine 07/17/21 documented as of this encounter
--- OUTSIDE RECORDS SUMMARY | 2025-01-14 16:39 | XMS_ITS | Encounter Summary ---
Author Organization [facility] Address [address] [place], [place] [address] Care Team Providers Care Cooker Syrup Name Role Phone Inocencio, Zander Roberts DO Primary Care Provider + Emeli Barber CNP Primary Care Provider + Source Comments In the event this information is protected by the Federal Confidentiality of Alcohol and Drug AbusePatient Records regulations: The Federal rules restrict any use of the information to criminally investigate or prosecute any alcohol or drug abuse patient.[facility] Encounter Details Date Type Department Care Team (Late st Contact Info) Description 05/25/2021 Patient Msg Urology [address] [place], [place] [phone] Domi Scruggs MD [address] [place], [place] [id number] genetic testing Social History Tobacco Use Types [...] N ot on file 01/20/2021 Data from: https://www.neighborhoodatlas.medicine.[facility].edu/. Last address used for calculation Not on [...] documented as of this encounter Care Teams Cooker Syrup Relationship Specialty Start Date End Date Zander Painter DO [address] [place] [address] PCP - General Family Medicine 03/29/17 07/16/21 Emeli Barber CNP [address] [place] [address] PCP - General Internal Medicine 07/17/21 documented as of this encounter
--- OUTSIDE RECORDS SUMMARY | 2025-01-14 16:39 | XMS_ITS | Encounter Summary ---
Author Organization [facility] Address [address] [place], [place] [address] Care Team Providers Care Public Transit Specialist Name Role Phone Inocencio, Zander Roberts DO Primary Care Provider + Emeli Barber CNP Primary Care Provider + Source Comments In the event this information is protected by the Federal Confidentiality of Alcohol and Drug AbusePatient Records regulations: The Federal rules restrict any use of the information to criminally investigate or prosecute any alcohol or drug abuse patient.[facility] Encounter Details Date Type Department Care Team (Late st Contact Info) Description 01/24/2021 Patient Msg Urology [address] [place], [place] [phone] Domi Scruggs MD [address] [place], [place] [id number] response Social History Tobacco Use Types Packs/Day [...] N ot on file 01/20/2021 Data from: https://www.neighborhoodatlas.medicine.[facility].edu/. Last address used for calculation Not [...] documented as of this encounter Care Teams Public Transit Specialist Relationship Specialty Start Date End Date Zander Painter DO [address] [place] [address] PCP - General Family Medicine 03/29/17 07/16/21 Emeli Barber CNP [address] [place] [address] PCP - General Internal Medicine 07/17/21 documented as of this encounter
--- OUTSIDE RECORDS SUMMARY | 2025-01-14 16:39 | XMS_ITS | Encounter Summary ---
Author Organization [facility] Address [facility] [place] [address] Care Team Providers Care Calender Let Off Operator Name Role Phone Emeli Barber [place] Primary Care Provider + Source Comments In the event this information is protected by the Federal Confidentiality of Alcohol and Drug AbusePatient Records regulations: The Federal rules restrict any use of the information to criminally investigate or prosecute any alcohol or drug abuse patient.[facility] Encounter Details Date Type Department Care Team (Late st Contact Info) Description 06/22/2024 Patient Msg Neurology [address] [place], [place] [id number] Provider, [facility] Mumtaz Appointment Cancelation Social History [...] is lower risk 8 12/30/2023 Data from: https://www.neighborhoodatlas.[facility]/. Last address used for calculation [address] [...] on filedocumented in this encounter Care Teams Calender Let Off Operator Relationship Specialty Start Date End Date Emeli Barber CNP [address] [place] [address] PCP - General Internal Medicine 07/17/21 documented as of this encounter
--- OUTSIDE RECORDS SUMMARY | 2025-01-14 16:39 | XMS_ITS | Clinical Summary ---
Author Organization Ketan Velásquez [facility] Address [address] [place] [address] Care Team Providers Care Client Engagement Specialist Name Role Phone Emeli Barber PICKLE PROCESSOR - MANAGER DIGITAL Primary Care Provide r Allergies No known active allergies Medications vilazodone hcl 10 MG TABS Take 1 tablet by mouth daily Active lamoTRIgine (LAMICTAL) 200 MG tablet Take 1 tablet by mouth 2 times daily Active lamoTRIgine (LAMICTAL) 25 MG tablet Take 2 tablets by mouth 2 times daily Active OXcarbazepine (TRILEPTAL) 600 MG tablet TAKE ONE TABLET BY MOUTH TWICE A DAY 60 tablet 5 10/01/2024 Active levETIRAcetam (KEPPRA) 250 MG tablet Take 1 tablet by mouth 2 times daily 60 tablet 5 10/01/2024 Active Active Problems Problem Noted Date Diagnosed Date Partial symptomatic epilepsy with complex partial seizures, intractable, without status epilepticus 08/07/2022 Seizure-like activity 08/07/2022 Family History Medical History Relation Name Comments Hypertension Father Seizures Maternal Aunt Relation Name Status Comments Father Maternal Aunt Alive Mother Alive Social History Tobacco Use Types Packs/Day Years Used Date Smoking Tobacco: Never Smokeless Tobacco: Never Tobacco Cessation:Counseling Given: Not Answered Alcohol Use Standard Drinks/Week Comments Never 0 (1 standard drink = 0.6 oz pur e alcohol) PHQ-2 Answer Date Recorded PHQ-9 Total Score 0 11/16/2021 Sex and Gender Information Value Date Recorded Sex Assigned at Not on file Legal Sex Male 5:53 PM EST Gender Identity Male 03/12/2022 1:19 AM EDT Sexual Orientation Not on file Last Filed Vital Signs Vital Sign Reading Time Taken Comments Blood Pressure 127/76 09/08/2024 2:20 PM EST Pulse 79 09/08/2024 2:20 PM EST Temperature 36.6 C (97.9 F) 09/08/2024 2:20 PM EST Respiratory Rate 18 09/08/2024 2:20 PM EST Oxygen Saturation 97% 08/11/2022 8:34 AM EST Inhaled Oxygen Concentration - - Weight 80.6 kg (177 lb 9.6 oz) 09/08/2024 2:20 P M EST Height 167.6 cm (5' 6 ) 09/08/2024 2:20 PM EST Body Mass Index 28.67 09/08/2024 2:20 PM EST Plan of Treatment Upcoming Encounters Date Type Department Care Team (Late st Contact Info) Description 03/11/2025 3:00 PM EDT Office Visit [facility] Part of [address] [place] [address] Pankaj Scherer MD [address] [place] [address] [address] [place] [address] F/U from 09/08/24 Health Maintenance Due Date Last Done Comments Hepatitis B vaccine (3 of 3 - 3-dose series) 02/05/1997 1996, 1996 Varicella vaccine (2 of 2 - 2-dose childhood series) 2000 11/25/1997 Depression Screen 2008 HIV screen 2011 Hepatitis C screen 2014 DTaP/Tdap/Td vaccine (7 - Tdap) 11/04/2019 11/03/2009, 08/07/2001, 11/25/1997, Additional history exists COVID-19 Vaccine (2 - season) 2024 05/10/2023, 04/16/2023 Flu vaccine (Season Ended) 2025 Hib vaccine Completed 11/25/1997, 01/27, 1996, Additional history exists Polio vaccine Completed 08/07/2001, 10/29, 1996, Additional history exists Meningococcal (ACWY) vaccine Aged Out 11/03/2009 No longer eligible based on patient's age to complete this topic HPV vaccine Aged Out No longer eligi ble based on patient's age to complete this topic Hepatitis A vaccine Aged Out No longe r eligible based on patient's age to complete this topic Meningococcal B vaccine Aged Out No l onger eligible based on patient's age to complete this topic Pneumococcal 0-49 years Vaccine Aged Out No longer eligible based on patient's age to complete this topic Insurance [employer] Advance Directives * Full Code (Latest Code Status on File) Date Activated Date Inactivated Comments 08/07/2022 3:31 PM 08/11/2022 7:05 PM * Full Code Date Activated Date Inactivated Comments 08/07/2022 3:31 PM 08/07/2022 3:31 PM Care Teams Client Engagement Specialist Relationship Specialty Start Date End Date Emeli Barber, PICKLE PROCESSOR - MANAGER DIGITAL [address] [place] [id number] PCP - General 11/16/21
--- OUTSIDE RECORDS SUMMARY | 2025-01-14 16:39 | XMS_ITS | Clinical Summary ---
Author Organization [facility] tem Address [id number] [address] [place] [address] Care Team Providers Care Medical Terminologist Name Role Phone ElisabethEmeli Harinder ROLLING MILL OPERATOR-COMMERCIAL FISHERMAN Primary Care Provider Allergies No known active [...] on file Insurance [employer] Care Teams Medical Terminologist Relationship Specialty Start Date End Date Emeli Barber APRN-COMMERCIAL FISHERMAN [address] [facility], [place] [address] PCP - General Family Medicine 11/08/20
--- OUTSIDE RECORDS SUMMARY | 2025-01-14 16:39 | XMS_ITS | Encounter Summary ---
Author Organization [facility] Address [address] [place], [place] [phone] Care Team Providers Care Oracle Financial Application Developer Name Role Phone Inocencio, Zander Roberts DO Primary Care Provider + Emeli Barber CNP Primary Care Provider + Source Comments In the event this information is protected by the Federal Confidentiality of Alcohol and Drug AbusePatient Records regulations: The Federal rules restrict any use of the information to criminally investigate or prosecute any alcohol or drug abuse patient.[facility] Encounter Details Date Type Department Care Team (Late st Contact Info) Description 07/07/2021 Patient Msg Urology [address] [place], [place] [phone] Domi Scruggs MD [address] [place], [place] [address] next steps Social History Tobacco Use Types [...] on file 01/20/2021 Data from: https://www.neighborhoodatlas.medicine.[facility].edu/. Last address used for calculation Not [...] documented as of this encounter Care Teams Oracle Financial Application Developer Relationship Specialty Start Date End Date Zander Painter DO [address] [place] [address] PCP - General Family Medicine 03/29/17 07/16/21 Emeli Barber, MANAGER TRAINING AND DEVELOPMENT [address] [place], [place] [phone] PCP - General Internal Medicine 07/17/21 documented as of this encounter
--- OUTSIDE RECORDS SUMMARY | 2025-01-14 16:39 | XMS_ITS | Encounter Summary ---
Author Organization [facility] Address [address] [place] [id number] Care Team Providers Care Piano Regulator Name Role Phone Emeli Barber [place] Primary Care Provider + Source Comments In the event this information is protected by the Federal Confidentiality of Alcohol and Drug AbusePatient Records regulations: The Federal rules restrict any use of the information to criminally investigate or prosecute any alcohol or drug abuse patient.[facility] Encounter Details Date Type Department Care Team (Late st Contact Info) Description 02/15/2024 [place] [address] Provider, [facility] Questionnaire Submission Social History Tobacco [...] lower risk 8 12/30/2023 Data from: https://www.neighborhoodatlas.medicine.[facility].edu/. Last address used for calculation [address] [place] [address] 12/30/2023 Sex and Gender Information Value Date [...] on filedocumented in this encounter Care Teams Piano Regulator Relationship Specialty Start Date End Date Emeli Barber CNP [address] [place] [address] PCP - General Internal Medicine 07/17/21 documented as of this encounter
--- OUTSIDE RECORDS SUMMARY | 2025-01-14 16:39 | XMS_ITS | Encounter Summary ---
Author Organization [facility] Address [address] [place], [place] [phone] Care Team Providers Care Back Up Worker Name Role Phone Inocencio, Zander Roberts DO [...] Info) Description 06/04/2021 Get Medical Advice Urology [address] [place], [place] [phone] Domi Scruggs MD [address] [place], [place] [phone] Upcoming Appointment Question Social History Tobacco Use [...] N ot on file 01/20/2021 Data from: https://www.neighborhoodatlas.medicine.[facility].edu/. Last address used for calculation Not [...] documented as of this encounter Care Teams Back Up Worker Relationship Specialty Start Date End Date Zander Painter DO [address] [place] [address] PCP - General Family Medicine 03/29/17 07/16/21 Emeli Barber CNP [address] [place] [address] PCP - General Internal Medicine 07/17/21 documented as of this encounter
--- OUTSIDE RECORDS SUMMARY | 2025-01-14 16:39 | XMS_ITS | Patient Health Record ---
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 Name Role Phone Emeli Barber Primary Care Provider [phone] Allergies No Known Allergies Results Component Value Reference Range Notes LAMOTRIGINE Reviewed date:03/09/2024 04:10:19 PM Interpretation: Performing Lab: Notes/Report: [facility] , Lamotrigine (Lamictal), Serum 5.3 2.0-20.0 ug/mL [address] [place] [id number] Property Management Assistant: Edgardo Tanner MD, Phone: [phone] Detection Limit = 1.0 [facility]: [facility] - [facility] MAGNESIUM Reviewed date:03/05/2024 08:34:38 AM Interpretation: Performing Lab: Notes/Report: [facility] , Magnesium 1.7 1.8-2.4 mg/dL Performing Lab: see note ML - [facility] LB PROF CHEM 8 (BAS METB) Reviewed date:03/05/2024 08:34:38 AM Interpretation: Performing Lab: Notes/Report: [facility] , Sodium 137 136-145 mmol/L Potassium 3.6 3.5-5.1 mmol/L Chloride 100 98-107 mmol/L Carbon Dioxide 33.2 21.0-32.0 mmol/L Anion Gap 7.4 Glucose 104 74-106 mg/dL Blood Urea Nitrogen 13.0 7.0-18.0 mg/dL Creatinine 1.08 0.70-1.30 mg/dL Estimated GFR ( Beryl >60 >=60 Estimated GFR (Non- Blanca >60 >=60 BUN Creatinine Ratio 12.0 Calcium 9.1 8.5-10.1 mg/dL Performing Lab: see note ML - [facility] LB CBC AUTO DIFF Reviewed date:10/12/2024 04:15:57 PM Interpretation: Performing Lab: Notes/Report: [facility] , White Blood Count 6.3 4.0-11.0 10 3/uL Red Blood Count 5.42 4.70-6.10 10 6/uL Hemoglobin 15.9 14.0-18.0 g/dL Hematocrit 43.7 42.0-54.0 % Mean Corpuscular Volume 80.6 80.0-94.0 fL Mean Corpuscular Hemoglobin 29.3 25.9-34.0 pg Mean Corpuscular HGB Conc 36.4 29.9-35.2 g/dL Red Cell Distribution Width 12.2 11.0-15.0 % Platelet Count 227 150-450 10 3/uL Mean Platelet Volume 9.6 9.5-13.5 fL Neutrophils Percent Auto 57.1 43.0-75.0 % Lymphocytes Percent Auto 34.8 20.5-60.0 % Monocytes Percent Auto 6.5 1.7-12.0 % Eosinophils Percent Auto 0.8 0.9-7.0 % Basophils Percent Auto 0.5 0.2-2.0 % Immature Granulocytes Pct Auto 0.3 0.0-0.5 % Neutrophils Absolute Auto 3.6 1.4-6.5 10 3/uL Lymphocytes Absolute Auto 2.2 1.2-3.8 10 3/uL Monocytes Absolute Auto 0.4 0.3-0.8 10 3/uL Eosinophils Absolute Auto 0.1 0.0-0.7 10 3/uL Basophils Absolute Auto 0.0 0.0-0.1 10 3/uL Immature Granulocytes Abs Auto 0.02 0.00-0.03 10 3/uL Performing Lab: see note ML - [facility] LB PROF 14(COMP METB) Reviewed date:10/12/2024 04:15:48 PM Interpretation: Performing Lab: Notes/Report: [facility] , Sodium 140 136-145 mmol/L Potassium 3.6 3.5-5.1 mmol/L Chloride 102 98-107 mmol/L Carbon Dioxide 28.1 21.0-32.0 mmol/L Anion Gap 13.5 Glucose 89 74-106 mg/dL Blood Urea Nitrogen 10.0 7.0-18.0 mg/dL Creatinine 1.14 0.70-1.30 mg/dL Estimated GFR ( Beryl >60 >=60 mL/min/1.73m 2 Estimated GFR (Non- Blanca >60 >=60 mL/min/1.73m 2 BUN Creatinine Ratio 8.8 Calcium 9.1 8.5-10.1 mg/dL Bilirubin Total 0.3 0.2-1.0 mg/dL Aspartate Amino Transferase 51 15-37 U/L Alanine Aminotransferase 38 16-63 U/L Alkaline Phosphatase 104 46-116 U/L Total Protein 7.6 6.4-8.2 g/dL Albumin Level 4.3 3.4-5.0 g/dL Globulin 3.3 Albumin Globulin Ratio 1.3 Performing Lab: see note ML - [facility] LB CBC AUTO DIFF Reviewed date:11/30/2024 09:52:19 AM Interpretation: Performing Lab: Notes/Report: [facility] , White Blood Count 4.6 4.0-11.0 10 3/uL Red Blood Count 5.51 4.70-6.10 10 6/uL Hemoglobin 16.0 14.0-18.0 g/dL Hematocrit 45.5 42.0-54.0 % Mean Corpuscular Volume 82.6 80.0-94.0 fL Mean Corpuscular Hemoglobin 29.0 25.9-34.0 pg Mean Corpuscular HGB Conc 35.2 29.9-35.2 g/dL Red Cell Distribution Width 12.4 11.0-15.0 % Platelet Count 198 150-450 10 3/uL Mean Platelet Volume 9.5 9.5-13.5 fL Neutrophils Percent Auto 53.8 43.0-75.0 % Lymphocytes Percent Auto 34.8 20.5-60.0 % Monocytes Percent Auto 8.3 1.7-12.0 % Eosinophils Percent Auto 2.2 0.9-7.0 % Basophils Percent Auto 0.7 0.2-2.0 % Immature Granulocytes Pct Auto 0.2 0.0-0.5 % Neutrophils Absolute Auto 2.5 1.4-6.5 10 3/uL Lymphocytes Absolute Auto 1.6 1.2-3.8 10 3/uL Monocytes Absolute Auto 0.4 0.3-0.8 10 3/uL Eosinophils Absolute Auto 0.1 0.0-0.7 10 3/uL Basophils Absolute Auto 0.0 0.0-0.1 10 3/uL Immature Granulocytes Abs Auto 0.01 0.00-0.03 10 3/uL Performing Lab: see note ML - [facility] LB D-DIMER Reviewed date:11/30/2024 09:52:19 AM Interpretation: Performing Lab: Notes/Report: [facility] , D Dimer <0.19 <=0.59 mg/L FEU Increases in D-Dimer concentration observed with or anticoagulant therapy, stress, and generalized of disorders including advanced age, , coronary disease, cancer, liver disease, infection, inflammation, event cannot be diagnosed with certainty on the basis of the reference range. D-Dimers may also be elevated for a variety hematoma, DIC, trauma, post-surgery, diabetes, thrombolytic size, and age of the thrombus. Therefore, a thromboembolic thromboembolic events can be variable due to localization, hospitalization. Performing Lab: see note ML - [facility] LB PROF 14(COMP METB) Reviewed date:11/30/2024 09:52:19 AM Interpretation: Performing Lab: Notes/Report: [facility] , Sodium 134 136-145 mmol/L Potassium 3.9 3.5-5.1 mmol/L Chloride 100 98-107 mmol/L Carbon Dioxide 30.8 21.0-32.0 mmol/L Anion Gap 7.1 Glucose 105 74-106 mg/dL Blood Urea Nitrogen 12.0 7.0-18.0 mg/dL Creatinine 1.10 0.70-1.30 mg/dL Estimated GFR ( Beryl >60 >=60 mL/min/1.73m 2 Estimated GFR (Non- Blanca >60 >=60 mL/min/1.73m 2 BUN Creatinine Ratio 10.9 Calcium 9.3 8.5-10.1 mg/dL Bilirubin Total 0.3 0.2-1.0 mg/dL Aspartate Amino Transferase 19 15-37 U/L Alanine Aminotransferase 60 16-63 U/L Alkaline Phosphatase 128 46-116 U/L Total Protein 7.9 6.4-8.2 g/dL Albumin Level 4.1 3.4-5.0 g/dL Globulin 3.8 Albumin Globulin Ratio 1.1 Performing Lab: see note ML - [facility] LB Troponin I High Sensitivity Reviewed date:11/30/2024 09:52:19 AM Interpretation: Performing Lab: Notes/Report: [facility] , Troponin I High Sensitivity <4.0 4.0-76.1 pg/mL HAS BEEN CONFIRMED THE DECISION THRESHOLD FOR OK DIAGNOSIS. USED IN ISOLATION BUT SHOULD BE INTERPRETED IN CONJUNCTION WITH OTHER DIAGNOSTIC AND CLINICAL INFORMATION. NOTE: HIGH-SENSITIVITY TROPONIN ASSAY IS NOT INTENDED TO BE REFERENCE LIMIT (URL) OF TROPONIN, DEFINED THE 99TH PERCENTILE OF cTnI DISTRIBUTION IN A REFERENCE POPULATION, CUT-OFF POINTS HAVE BEEN ESTABLISHED BASED ON THE FOURTH 99TH PERCENTILE = 76.2 PG/ML UNIVERSAL DEFINITION OF MYOCARDIAL INFARCTION. THE UPPER Performing Lab: see note ML - [facility] LB ECG 12 lead Reviewed date:11/30/2024 09:52:19 AM Interpretation: Performing Lab: Notes/Report: Source Facility: [place] [address] [place] [address] Electrocardiograph Report Signed Patient: NANDO LOPEZ MR#: [id number] : 1995 Acct:[id number] Age/Sex: 29 / M ADM Date: 11/29/24 Loc: ER Attending Dr: Ordering Physician: Elizabeth Patrick Date of Service: 11/29/24 Procedure(s): ECG 12 lead Accession Number(s): [id number] cc: [facility] Test Date: 2024-11-29 Pat Name: NANDO LOPEZ Department: Room: - Gender: Male Talcer: : 1995 Requested By: 1854 Order Number: [id number] Juan MD: MIGUEL BUNCH M.D. Measurements Intervals [place] Rate: 73 P: 58 WV: 146 QRS: 57 QRSD: 100 T: 26 QT: 372 QTc: 398 Interpretive Statements 1100 Sinus rhythm 9110 normal ECG Compared to ECG 03/04/2024 17:27:30 Sinus tachycardia no longer present Electronically Signed On 11-30-2024 7:44:59 EDT by MIGUEL BUNCH M.D. Dictated By: MIGUEL BUNCH Signed By: 11/30/24 0745 DD/ 02 TD/TT: Special Population Paraprofessional: [place] [address] Electrocardiograph Report Signed Patient: GHADA LOPEZ MR#: [id number] : 1995 Acct:[id number] Age/Sex: 29 / M ADM Date: 11/29/24 Loc: ER Attending Dr: Ordering Physician: Elizabeth Patrick Date of Service: 11/29/24 Procedure(s): ECG 12 lead Accession Number(s): [id number] cc: [facility] Test Date: 2024-11-29 Pat Name: NANDO MICHELLE Department: 98 Room: - Gender: Male Talcer: : 1995 Requ ested By: 1854 Order Number: [id number] Reading MD: MIGUEL BUNCH M.D. Measurements Intervals [place] Rate: 73 P: 58 WV: 146 QRS: 57 QRSD: 100 T: 26 QT: 372 QTc: 398 Interpretive Statements 1100 Sinus rhythm 9110 normal ECG Compared to ECG 03/04/2024 17:27:30 Sinus tachycardia no longer present Electronically Malorie d On 11-30-2024 7:44:59 EDT by MIGUEL BUNCH M.D. Dictated By: MIGUEL BUNCH Signed By: 11/30/24 0745 DD/ 02 TD/TT: Special Population Paraprofessional: CBC AUTO DIFF Reviewed date:01/14/2025 10:32:02 AM Interpretation: Performing Lab: Notes/Report: [facility] , White Blood Count 6.3 4.0-11.0 10 3/uL Red Blood Count 5.36 4.70-6.10 10 6/uL Hemoglobin 15.7 14.0-18.0 g/dL Hematocrit 43.5 42.0-54.0 % Mean Corpuscular Volume 81.2 80.0-94.0 fL Mean Corpuscular Hemoglobin 29.3 25.9-34.0 pg Mean Corpuscular HGB Conc 36.1 29.9-35.2 g/dL Red Cell Distribution Width 12.2 11.0-15.0 % Platelet Count 266 150-450 10 3/uL Mean Platelet Volume 9.0 9.5-13.5 fL Neutrophils Percent Auto 59.0 43.0-75.0 % Lymphocytes Percent Auto 32.2 20.5-60.0 % Monocytes Percent Auto 6.3 1.7-12.0 % Eosinophils Percent Auto 1.1 0.9-7.0 % Basophils Percent Auto 0.8 0.2-2.0 % Immature Granulocytes Pct Auto 0.6 0.0-0.5 % Neutrophils Absolute Auto 3.7 1.4-6.5 10 3/uL Lymphocytes Absolute Auto 2.0 1.2-3.8 10 3/uL Monocytes Absolute Auto 0.4 0.3-0.8 10 3/uL Eosinophils Absolute Auto 0.1 0.0-0.7 10 3/uL Basophils Absolute Auto 0.1 0.0-0.1 10 3/uL Immature Granulocytes Abs Auto 0.04 0.00-0.03 10 3/uL Performing Lab: see note - [facility] LB PROF CHEM 8 (BAS METB) Reviewed date:01/14/2025 10:32:02 AM Interpretation: Performing Lab: Notes/Report: [facility] , Sodium 138 136-145 mmol/L Potassium 4.1 3.5-5.1 mmol/L Chloride 101 98-107 mmol/L Carbon Dioxide 21.3 21.0-32.0 mmol/L Anion Gap 19.8 Glucose 127 74-106 mg/dL Blood Urea Nitrogen 13.0 7.0-18.0 mg/dL Creatinine 1.21 0.70-1.30 mg/dL Estimated GFR ( Beryl >60 >=60 mL/min/1.73m 2 Estimated GFR (Non- Blanca >60 >=60 mL/min/1.73m 2 BUN Creatinine Ratio 10.7 Calcium 9.5 8.5-10.1 mg/dL Performing Lab: see note - [facility] LB ECG 12 lead Reviewed date:01/14/2025 10:32:02 AM Interpretation: Performing Lab: Notes/Report: Source Facility: [place] [address] [place] [address] Electrocardiograph Report Signed Patient: NANDO LOPEZ MR#: [id number] : 1995 Acct:[id number] Age/Sex: 29 / M ADM Date: 01/11/25 Loc: ER Attending Dr: Ordering Physician: Grant Mcqueen M.D. Date of Service: 01/11/25 Procedure(s): ECG 12 lead Accession Number(s): [id number] cc: [facility] Test Date: 2025-01-11 Pat Name: NANDO LOPEZ Department: Room: - Gender: Male Talcer: : 1995 Requested By: 1030 Order Number: [id number] Reading MD: MIGUEL BUNCH M.D. Measurements Intervals [place] Rate: 99 P: 61 WV: 156 QRS: 65 QRSD: 94 T: 71 QT: 336 QTc: 392 Interpretive Statements 1100 Sinus rhythm 2440 Incomplete right bundle branch block 9130 borderline ECG Compared to ECG 11/29/2024 14:03:51 Incomplete right bundle-branch block now present Electronically Signed On 01-11-2025 16:56:57 EDT by MIGUEL BUNCH M.D. Dictated By: MIGUEL BUNCH Signed By: 01/11/25 1657 DD/ 1523 TD/TT: Special Population Paraprofessional: [place] [address] Electrocardiograph Report Signed Patient: GHADA LOPEZ MR#: [id number] : 1995 Acct:[id number] Age/Sex: 29 / M ADM Date: 01/11/25 Loc: ER Attending Dr: Ordering Physician: Grant Mcqueen M.D. Date of Service: 01/11/25 Procedure(s): ECG 12 lead Accession Number(s): [id number] cc: [facility] Test Date: 2025-01-11 Pat Name: NANDO MICHELLE Department: 98 Room: - Gender: Male Talcer: : 1995 Requ ested By: 1030 Order Number: [id number] Reading MD: MIGUEL BUNCH M.D. Measurements Intervals [place] Rate: 99 P: 61 WV: 156 QRS: 65 QRSD: 94 T: 71 QT: 336 QTc: 392 Interpretive Statements 1100 Sinus rhythm 2440 Incomplete righ t bundle branch block 9130 borderline ECG Compared to ECG 11/29/2024 14:03:51 Incomplete right bundle-branch block now present Electronically Malorie d On 01-11-2025 16:56:57 EDT by MIGUEL BUNCH M.D. Dictated By: MIGUEL BUNCH Signed By: 01/11/25 1657 DD/ 1523 TD/TT: Special Population Paraprofessional: ECG 12 lead Reviewed date:03/05/2024 08:34:38 AM Interpretation: Performing Lab: Notes/Report: Source Facility: [place] [address] Electrocardiograph Report Signed Patient: NANDO LOPEZ MR#: [id number] : 1995 Acct:[id number] Age/Sex: 28 / M ADM Date: 03/04/24 Loc: ER Attending Dr: Ordering Physician: Dylan Hauser M.D. Date of Service: 03/04/24 Procedure(s): ECG 12 lead Accession Number(s): [id number] cc: [facility] Test Date: 2024-03-04 Pat Name: NANDO LOPEZ Department: Room: - Gender: Male Talcer: : 1995 Requested By: EMELI BARBER Order Number: [id number] Reading MD: MARCO MONTANA Measurements Intervals [place] Rate: 100 P: 48 WV: 154 QRS: 19 QRSD: 90 T: 58 QT: 330 QTc: 387 Interpretive Statements 1120 Sinus tachycardia 9140 abnormal rhythm ECG Compared to ECG 10/27/2023 23:45:45 Sinus rhythm no longer present Electronically Signed On 03-04-2024 22:16:32 EDT by MARCO MONTANA Dictated By: Marco Montana D.O. Signed By: 03/04/242215 DD/ 26 TD/TT: Special Population Paraprofessional: [place] [address] Electrocardiograph Report Signed Patient: GHADA LOPEZ MR#: [id number] : 1995 Acct:[id number] Age/Sex: 28 / M ADM Date: 03/04/24 Loc: ER Attending Dr: Ordering Physician: Dylan Hauser M.D. Date of Service: 03/04/24 Procedure(s): ECG 12 lead Accession Number(s): [id number] cc: [facility] Test Date: 2024-03-04 Pat Name: NANDO MICHELLE Department: 98 Room: - Gender: Male Talcer: : 1995 Lisandro estemohsen By: EMELI BARBER Order Number: [id number] Reading MD: MARCO MONTANA Measurements Intervals [place] Rate: 100 P: 48 WV: 154 QRS: 19 QRSD: 90 T: 58 QT: 330 QTc: 387 Interpretive Statements 1120 Sinus tachycardia 9140 abnormal rhy thm ECG Compared to ECG 10/27/2023 23:45:45 Sinus rhythm no long er present Electronically Malorie connolly On 03-04-2024 22:16:32 EDT by MARCO MONTANA Dictated By: Marco Montana D.O. Signed By: 03/04/242215 DD/ 26 TD/TT: Special Population Paraprofessional: Reason For Referral No Information Medications Medication SIG (Take, Route, Frequency, Duration) Notes Start Date End Date Status Ventolin HFA 108 (90 Base) MCG/ACT 2 puff Inhalation every 4 hrs as needed Active Omeprazole 20 mg TAKE ONE CAPSULE BY MOUTH 30 MINUTES TO 1 HOUR BEFORE MORNING MEAL ONCE DAILY for 30 Active Aspirin Adult Low Dose 81 MG 2 tablet Orally Once a day Active levETIRAcetam 250 MG 1 tablet Orally every 12 hrs Active lamoTRIgine 200 MG 1 tablet Orally twice daily 500mg BID Active Vilazodone HCl 20 MG as directed Oral Once a day for 30 days take 1/2 tablet po daily for 7 days than increase dose to 1 tablet po daily Active lamoTRIgine 25 MG 2 tablet Orally bid Active OXcarbazepine 600 MG 1 tablet Orally [...] Problem Status W/U Status Risk Notes Problem 260617333 Anxiety disorder, unspecified (F41.9) Active confirmed Problem 922261943 Acute pharyngitis, unspecified (J02.9) Active confirmed Problem Renal agenesis and dysgenesis (353929959) Renal agenesis, 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) Active confirmed Problem Gastroesophageal reflux disease (313965024) GERD (gastroesophag eal reflux disease) (K21.9) Active confirmed Problem Elevated liver enzymes level (248837097) Elevated liver enzymes (R74.8) Active confirmed Problem Exercise-induced asthma (11541269) Exercise-induc ed asthma (J45.990) Active confirmed Problem Complex partial epileptic seizure (542507244) Complex partial seizure (G40.209) Active confirmed Problem Recurrent major depression (35126520) Depression, recurrent (F33.9) Active confirmed Problem Severe recurrent major depression without psychotic features (39697138) Major depressive disorder, recurrent episode, severe (F33.2) Active confirmed Problem Seizure (19509588) Seizure (R56.9) Active confirmed Problem Disorder of male genital organ (89916255) Disorder of male genital organs (N50.9) Active confirmed Problem Male infertility (2226013) Male infertility (N46.9) Active confirmed Problem 46145000 Depression, unspecified (F32.A) Active confirmed Vital Signs Blood pressure diastolic 70 mm Hg 10/01/2024 Height 65 in 10/01/2024 Blood pressure systolic 112 mm Hg 10/01/2024 Weight 181 lbs 10/01/2024 BMI 30.12 kg/m2 10/01/2024 Encounters Encounter Location Date Provider [facility] [address] [place] [address] 10/01/2024 Emeli Barber Depression, recurrent F33.9 and [...] dentition, encouraged fu dentist Plan Of Treatment No Information Insurance Providers Payer Name Payer Address Payer Phone Subscriber Number Group Number Insured Name Patient Relationship to Insured Coverage Start Date Coverage End Date [employer] [place] [employer] [address] [place] [address] [phone] [id number] Gavin Nando Self - patient is the insured 3 Medical (General) History Medical History History ICD Code Elevated liver enzymes R74.8 Complex partial seizure G40.209 Insomnia G47.00 Renal agenesis, unilateral Q60.0 Disorder of male genital organs N50.9 Male infertility N46.9 Major depressive disorder, recurrent epi sode, severe F33.2 Exercise-induced asthma J45.990 Anejaculation N53.19 COVID-19 U07.1 Absence of left kidney
--- OUTSIDE RECORDS SUMMARY | 2025-01-14 16:39 | XMS_ITS | Encounter Summary ---
Author Organization [employer] s tem Address [id number] [address] 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 Please call patient back at [phone] documented in this encounter Plan of Treatment Not on file documented as of this encounter Visit Diagnoses Not on filedocumented in this encounter Care Teams Money Counter Relationship Specialty Start Date End Date Emeli Barber, REHABILITATION TEAM LEAD[employer] [address] [place] [address] PCP - General Family Medicine 11/08/20 documented as of this encounter
--- OUTSIDE RECORDS SUMMARY | 2025-01-14 16:48 | XMS_ITS | CCD ---
Author Organization [facility] Care Team Providers Care 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 Name Role Phone Arti JACINTO Emeli S Primary Care Provider [phone] HANS GRANADO Referring Unavailab ricky CHI EMELI S Primary Care Unavailable HANS GRANADO Referring Unavailab ricky CHI EMELI S Primary Care Unavailable Unavailable Primary Care Provider Unavailabl e PROVIDER, UNKNOWN Attending Unavailable PROVIDER, UNKNOWN Admitting Unavailable Emeli Chi Primary Care Unavailable Derek Burks Attending Unavailable Derek Burks Admitting Unavailable JEEVAN Chi-Priyank Sainz Norma Primary Care Provider Derek Burks Attending Provider [phone] Emeli Chi S Primary Care Provider [phone] EMELI CHI Primary Care Unavailable REGINA, DR [...] Admitting Unavailable ARTI, EMELI Primary Care Unavailable MARIZA LAMID Consulting Unavailable LALO, JOSIAH Attending Unavailable LALO, JOSIAH Admitting Unavailable LALO, JOSIAH Consulting Unavailable ARTI, EMELI Primary Care Unavailable DR SHARON MICHEL Attending Unavailable DR SHARON MICHEL Admitting Unavailable RATI, EMELI Primary Care Unavailable DR SHARON MICHEL [...] Care Unavailable CHIRRI, CHAVEZ Admitting Unavailable Arti SENIOR ACCOUNTING ASSOCIATE, Emeli S Primary Care Provider Arti JACINTO, Emeli S Primary Care Provider [phone] ARTI, EMELI S Primary Care Unavailable DOUG [...] Attending Unavailable SHANDRA HIGGINS Referring Unavailable ARTI, EMEIL S Primary Care Unavailable Medications Current Medications [...] 04/06/19 Status: [facility] OXcarbazepine (TRILEPTAL) 300 mg [...] Indication of Use: Prophylaxis-DVT/PE polyethylene glycol 3350 39364 mg powder for oral solution (1 source) [...] Other fci (current) drug therapy; Translations: [OTH NURSING HOME CURRENT DRUG THERAPY] Onset: 06-13-2022 Episodic Other injuries and conditions due to external causes (1 source) Unspecified injury of head, initial encounter; Translations: [UNSPECIFIED INJURY HEAD INITIAL ENC] Onset: 01-02-2022 Episodic Results Test Name Value Interpretation Reference [facility] COREY ALONSO III ([id number]) 1995 M Date Time Provider Department 06/02/24 MINERVA ORTEGA During your visit today, we recorded the following information about you: Minerva Ortega LISW 06/02/2024 4:24 PM Signed POPULATION GENETICIST received a consult from provider stating patient told them they cannot afford the PNES workbook, and is looking for assistance with this. POPULATION GENETICIST notes patient had initial assessment with Dr. Garcia and is beginning treatment in June 2024. POPULATION GENETICIST asked admin to send patient a copy of the workbook after confirming with patient the correct address. Will follow to assure this is sent to patient. Carli Villarreal 06/02/2024 4:38 PM Signed Copy of seizure workbook, mailed to patient home address. Tracking # [id number] Allergies As of Date: 06/02/2024 (No Known [...] Status:Closed by MINERVA ORTEGA on 06/02/[address] [facility] MRI BRAIN WO IVCONon 07-22-2 024 [...] cortical dysplasia, or other neuronal migrational abnormalities. Green Marketing Analyst: [facility] Trans[facility] Date/Time: Feb 18 2024 8:30A Dictated by : VERÓNICA ECHEVARRIA MD This examination was interpreted and the report reviewed and electronically signed by: VERÓNICA ECHEVARRIA MD on Feb 18 2024 8:46AM EST [id number] Normal 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 She would not recommend weaning down. Instead, hold tonight's dose and restart on correct dose of 250 mg twice daily tomorrow morning. TAYLOR Kate Elizabeth, RN 02/06/2024 5:00 PM Signed Spoke with patient/friend, Yina and provided medication recommendations - they verbalize understanding Krush message sent per their request Spoke with [facility] pharmacist - advised of LTG dose She requests new prescription for LTG 200 mg tablet Patient will receive corrected packets of LTG on Saturday, 02/09 Forwarded to [facility] for prescription processing JOSE Garcia Ailis, PA-C [...] with patient - he confirms receipt of Krush message - no present medication concerns - [...] Encounter Status:Closed by SKYLA SANCHEZ on 02/07/24 [facility] Telephone (NE50MN) COREY ALONSO III ([id number]) 1995 M Date Time Provider Department 02/06/24 [...] does not drive Forwarded to KALIA 1 parshall for review/recommendatio n JOSE Garcia Ailis, PA-C [...] Encounter Status:Closed by SKYLA SANCHEZ on 02/06/24 [facility] 01-31-2024 CNPN Telephone (NE50MN) COREY ALONSO III ([id number]) 1995 M Date Time Provider Department 01/31/24 DEEP BABB NE50MN During your visit today, we recorded the following information about you: Nehal Jordan 01/31/2024 12:52 PM Signed General call : Full name of person calling: Corey Alonso III Relationship to patient: self Phone # : [phone] (mobile) Reason for call: Patient wants to [...] Status:Closed by SKYLA SANCHEZ on 01/31/[address] [facility] CNOVon 01-29-2024 CNOV Office Visit (NE50MN) COREY ALONSO III ([id number]) 1995 M Date Time Provider Department 01/29/24 3:30 PM DEEP BABB NE50MN During your visit today, we recorded the following information about you: Pulse Blood pressure Weight Height 81/minute 133/82 78.5 kg 1.753 m Deep Babb MD 02/02/2024 10:23 PM Signed [facility] Patient Name: Corey Alonso III Date of : 1995 ESTABLISHED EPILEPSY CLINIC NOTE 01/29/2024 3:30 PM Reason for Visit: Established Patient and Follow Up Clinical Summary: Mr. Alonso is a 28 year old right-handed male seen in [facility]. 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 Normal [facility] [id number] 01-03-2024 [id number] HNO ID: [id number] Author: CARLOS GONZALES RN Service: ? Author Type: Registered Nurse Type: [id number] Filed: 01/03/2024 06:47 Note Text: Patient's sister arrived to take patient home. Night PA in prior to go over discharge with patient. RN went over discharge instructions, returned home medications from lock box and made sure patient had home belongings together. IV removed and opportunity for questions provided. Normal [facility] CNDSon 01-03-2024 CNDS HNO ID: [id number] Author: GIOVANI SANCHEZ MD, PhD Service: Neurology Adult Epilepsy Author Type: Nurse Practitioner Type: Discharge Summary Filed: 01/03/2024 11:23 Note Text: Attestation signed by Giovani Sanchez MD, PhD at 01/03/2024 11:23 AM Giovani Sanchez MD PhD Staff, Epilepsy Center [facility] [place], [place] DISCHARGE SUMMARY PATIENT NAME: Corey Alonso III [...] year old male who presented to the [facility] EMU on 12/30/2023 for diagnosis. [...] U Bldg 03/05/2024 10:00 AM Doug Ellsworth, RN RESOURCE NURSE.SENIOR ACCOUNTING ASSOCIATE NE50EVELIN Mn S Bldg 04/09/2024 9:00 AM Neida Kee, PhD [facility] Please follow up with your Epileptologist. Dr. Deep Babb [address] [place] [address] The patient's risk for 30-day readmission is determined using the following contributing factors: The patient's risk for 30-day readmission is (more content not included)... Normal [facility] SOCIAL WORKon 01-01-2024 SOCIAL WORK HNO ID: [id number] Author: KARLI SANTORO LSW Service: Social Work Author Type: Steel Pourer Helper Type: Social Work Filed: 01/02/2024 09:42 [...] regarding out patient CBT program offered through [facility]. Patient agreeable to follow up as an out patient. SW to continue to follow as needed. SIGNATURE: LAUREN Lujan PATIENT NAME: Corey Alonso III DATE: January 01, 2024 TIME: 4:19 PM PAGER/CONTACT #: [phone] [facility] SOCIAL WORKon 12-31-2023 SOCIAL WORK HNO ID: [id number] Author: KARLI SANTORO LSW Service: Social Work Author Type: Steel Pourer Helper Type: Social Work Filed: 01/01/2024 09:44 [...] mild developmental delay, he was treated for COMBINATION SAW OPERATOR infection with initial presentation but patient/family unsure [...] reared by his mother and father in [place]. He has one biological sister. Patient identifies [...] very frustrated by this, and being a book sorter is his dream job. 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 PSYCHIATRIC HISTORY: Patient [...] voices feeling jealous whenever he sees a book sorter, because he wonders why they are able [...] time. COLLAT (more content not included)... Normal [facility] 10OH-[facility]epine [facility]2023 10-Hydroxycarbazepine [Mass/Vol] 13.6 ug/mL Normal 3.0-35.[address] [facility] Comment on above: Order Comment: Speci men Type: BLOOD SPECIMENOrdering Facility: [facility] Address: [address] [place] [address] Result Comment: This test was developed and its performance characteristics determined by [facility] [place] ([facility]). It has not been cleared or approved by the FDA. [facility] is regulated under CLIA as qualified to perform high-complexity testing. This test is used for clinical purposes. It should not be regarded as investigational or for research. Performed By: #### 6 948-4, 42873-9 ####[facility] [id number] [place] [address] [place] CBC W Auto Differential pane l (Bld)on 12-30-2023 Basophils (Bld) [#/Vol] 0.04 10*3/uL Normal <0.[address] [facility] Comment on above: Order Comment: Speci men Type: BLOOD SPECIMEN Ordering Facility: [facility] Address: [address] [place] [address] Performed By: #### 5 7021-8 #### [facility] CLIA [id number] [address] [place] [address] [place] Basophils/100 WBC (Bld) 0.7 % Normal C [facility] Comment on above: Order Comment: Speci men Type: BLOOD SPECIMEN Ordering Facility: [facility] Address: [address] [place] [address] Performed By: #### 5 7021-8 #### [facility] CLIA [id number] [address] [place] [address] [place] Differential cell count method Nom (Bld) Auto Normal [facility] Comment on above: Order Comment: Speci men Type: BLOOD SPECIMEN Ordering Facility: [facility] Address: [address] [place] [address] Performed By: #### 5 7021-8 #### [facility] CLIA [id number] [address] [place] [address] [place] Eosinophils (Bld) [#/Vol] 0.07 10*3/uL Normal <0.[address] [facility] Comment on above: Order Comment: Speci men Type: BLOOD SPECIMEN Ordering Facility: [facility] Address: [address] [place] [address] Performed By: #### 5 7021-8 #### [facility] CLIA [id number] [address] [place] [address] [place] Eosinophils/100 WBC (Bld) 1.3 % Normal [facility] Comment on above: Order Comment: Speci men Type: BLOOD SPECIMEN Ordering Facility: [facility] Address: [address] [place] [address] Performed By: #### 5 7021-8 #### [facility] CLIA [id number] [address] [place] [address] [place] Erythrocyte distribution width (RBC) [Ratio] 12.3 % Normal 11.5-15.[address] [facility] Comment on above: Order Comment: Speci men Type: BLOOD SPECIMEN Ordering Facility: [facility] Address: [address] [place] [address] Performed By: #### 5 7021-8 #### [facility] CLIA [id number] [address] [place] [address] [place] Hematocrit (Bld) [Volume fraction] 44.7 % Normal 39.0-51.[address] [facility] Comment on above: Order Comment: Speci men Type: BLOOD SPECIMEN Ordering Facility: [facility] Address: [address] [place] [address] Performed By: #### 5 7021-8 #### [facility] CLIA [id number] [address] [place] [address] [place] Hemoglobin (Bld) [Mass/Vol] 15.6 g/dL Normal 13.0-17.[address] [facility] Comment on above: Order Comment: Speci men Type: BLOOD SPECIMEN Ordering Facility: [facility] Address: [address] [place] [address] Performed By: #### 5 7021-8 #### [facility] CLIA [id number] [address] [place] [address] [place] Immature granulocytes (Bld) [#/Vol] 10*3/uL Normal <0.[address] [facility] Comment on above: Order Comment: Speci men Type: BLOOD SPECIMEN Ordering Facility: [facility] Address: [address] [place] [address] Performed By: #### 5 7021-8 #### [facility] CLIA [id number] [address] [place] [address] [place] Immature granulocytes/100 WBC (Bld) 0.4 % Normal [facility] Comment on above: Order Comment: Speci men Type: BLOOD SPECIMEN Ordering Facility: [facility] Address: [address] [place] [address] Performed By: #### 5 7021-8 #### [facility] CLIA [id number] [address] [place] [address] [place] Lymphocytes (Bld) [#/Vol] 1.97 10*3/uL Normal 1.00-4.[address] [facility] Comment on above: Order Comment: Speci men Type: BLOOD SPECIMEN Ordering Facility: [facility] Address: [address] [place] [address] Performed By: #### 5 7021-8 #### [facility] CLIA [id number] [address] [place] [address] [place] Lymphocytes/100 WBC (Bld) 36.1 % Normal [facility] Comment on above: Order Comment: Speci men Type: BLOOD SPECIMEN Ordering Facility: [facility] Address: [address] [place] [address] Performed By: #### 5 7021-8 #### [facility] CLIA [id number] [address] [place] [address] [place] MCH (RBC) [Entitic mass] 28.6 pg Normal 26.0-34.[address] [facility] Comment on above: Order Comment: Speci men Type: BLOOD SPECIMEN Ordering Facility: [facility] Address: [address] [place] [address] Performed By: #### 5 7021-8 #### [facility] CLIA [id number] [address] [place] [address] [place] MCHC (RBC) [Mass/Vol] 34.9 g/dL Normal 30.5-36.0 [facility] Comment on above: Order Comment: Speci men Type: BLOOD SPECIMEN Ordering Facility: [facility] Address: [address] [place] [address] Performed By: #### 5 7021-8 #### [facility] CLIA [id number] [address] [place] [address] [place] MCV (RBC) [Entitic vol] 82.0 fL Normal 80.0-100.0 C [facility] Comment on above: Order Comment: Speci men Type: BLOOD SPECIMEN Ordering Facility: [facility] Address: [address] [place] [address] Performed By: #### 5 7021-8 #### [facility] CLIA [id number] [address] [place] [address] [place] Monocytes (Bld) [#/Vol] 0.40 10*3/uL Normal <0.[address] [facility] Comment on above: Order Comment: Speci men Type: BLOOD SPECIMEN Ordering Facility: [facility] Address: [address] [place] [address] Performed By: #### 5 7021-8 #### [facility] CLIA [id number] [address] [place] [address] [place] Monocytes/100 WBC (Bld) 7.3 % Normal [facility] Comment on above: Order Comment: Speci men Type: BLOOD SPECIMEN Ordering Facility: [facility] Address: [address] [place] [address] Performed By: #### 5 7021-8 #### [facility] CLIA [id number] [address] [place] [address] [place] Neutrophils (Bld) [#/Vol] 2.96 10*3/uL Normal 1.45-7.[address] [facility] Comment on above: Order Comment: Speci men Type: BLOOD SPECIMEN Ordering Facility: [facility] Address: [address] [place] [address] Performed By: #### 5 7021-8 #### [facility] CLIA [id number] [address] [place] [address] [place] Neutrophils/100 WBC (Bld) 54.2 % Normal [facility] Comment on above: Order Comment: Speci men Type: BLOOD SPECIMEN Ordering Facility: [facility] Address: [address] [place] [address] Performed By: #### 5 7021-8 #### [facility] CLIA [id number] [address] [place] [address] [place] Nucleated RBC (Bld) [#/Vol] 10*3/uL Normal <0.[address] [facility] Comment on above: Order Comment: Speci men Type: BLOOD SPECIMEN Ordering Facility: [facility] Address: [address] [place] [address] Performed By: #### 5 7021-8 #### [facility] CLIA [id number] [address] [place] [address] [place] Nucleated RBC/100 WBC (Bld) [Ratio] 0.0 /100 WBC Normal [facility] Comment on above: Order Comment: Speci men Type: BLOOD SPECIMEN Ordering Facility: [facility] Address: [address] [place] [address] Performed By: #### 5 7021-8 #### [facility] CLIA [id number] [address] [place] [address] [place] Platelet mean volume (Bld) [Entitic vol] 9.6 fL Normal 9.0-12.[address] [facility] Comment on above: Order Comment: Speci men Type: BLOOD SPECIMEN Ordering Facility: [facility] Address: [address] [place] [address] Performed By: #### 5 7021-8 #### [facility] CLIA [id number] [address] [place] [address] [place] Platelets (Bld) [#/Vol] 187 10*3/uL Normal 150-[address] [facility] Comment on above: Order Comment: Speci men Type: BLOOD SPECIMEN Ordering Facility: [facility] Address: [address] [place] [address] Performed By: #### 5 7021-8 #### [facility] CLIA [id number] [address] [place] [address] [place] RBC (Bld) [#/Vol] 5.45 10*6/uL Normal 4.20-6.00 [facility] Comment on above: Order Comment: Speci men Type: BLOOD SPECIMEN Ordering Facility: [facility] Address: [address] [place] [address] Performed By: #### 5 7021-8 #### [facility] CLIA [id number] [address] [place] [address] [place] WBC (Bld) [#/Vol] 5.46 10*3/uL Normal 3.70-11.00 [facility] Comment on above: Order Comment: Speci men Type: BLOOD SPECIMEN Ordering Facility: [facility] Address: [address] [place] [address] Performed By: #### 5 7021-8 #### [facility] [id number] [address] [place] [address] [place] CNOVon 12-30-2023 CNOV Office Visit (NE50MN) COREY ALONSO III ([id number]) 1995 M Date Time Provider Department 12/30/23 8:00 AM DEEP BABB NE50MN During your visit today, we recorded the following information about you: Pulse Blood pressure Weight Height 105/minute 148/86 77.1 kg 1.727 m Deep Babb MD 12/30/2023 11:45 PM Signed [facility] [place] [facility] Patient Name: Corey Alonso III Date of : 1995 Referring Provider: Shandra Berman [address] [place] [address] INITIAL EPILEPSY CLINIC NOTE 12/30/2023 8:00 AM CHIEF COMPLAINT: New Patient HISTORY OF PRESENT ILLNESS Mr. Alonso is a 28 year old right-handed male seen in [facility] for initial consultation. 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 Normal [facility] Comprehensive metabolic 2000 panelon 12-30-2023 Albumin [Mass/Vol] 4.3 g/dL Normal 3.9-4.9 [facility] Comment on above: Order Comment: Speci men Type: BLOOD SPECIMENOrdering Facility: [facility] Address: [address] [place] [address] Performed By: #### 1 9123-9, 3016-3, 2777-1, 25359-8 ####[facility] [id number] [place] [address] [place] ALP [Catalytic activity/Vol] 111 U/L Normal 38-[address] [facility] Comment on above: Order Comment: Speci men Type: BLOOD SPECIMENOrdering Facility: [facility] Address: [address] [place] [address] Performed By: #### 1 9123-9, 3016-3, 2777-1, 56198-8 ####[facility] [id number] [place] [address] [place] ALT [Catalytic activity/Vol] 14 U/L Normal 10-[address] [facility] Comment on above: Order Comment: Speci men Type: BLOOD SPECIMENOrdering Facility: [facility] Address: [address] [place] [address] Performed By: #### 1 9123-9, 3016-3, 2777-1, 01295-0 ####[facility] [id number] [address] [address] [place] Anion gap [Moles/Vol] 12 mmol/L Normal 9-18 [facility] Comment on above: Order Comment: Speci men Type: BLOOD SPECIMENOrdering Facility: [facility] Address: [address] [place], [place] [address] Performed By: #### 1 9123-9, 3016-3, 2777-1, 72194-5 ####[facility] [id number] [address] [address] [place] AST [Catalytic activity/Vol] 14 U/L Normal 14-[address] [facility] Comment on above: Order Comment: Speci men Type: BLOOD SPECIMENOrdering Facility: [facility] Address: [address] [place] [address] Performed By: #### 1 9123-9, 3016-3, 2777-, 85500-7 ####[facility] [id number] [place] [id number] [place] Bilirubin [Mass/Vol] 0.3 mg/dL Normal 0.2-1.3 [facility] Comment on above: Order Comment: Speci men Type: BLOOD SPECIMENOrdering Facility: [facility] Address: [address] [place] [address] Performed By: #### 1 9123-9, 3016-3, 2777-, 06134-4 ####[facility] [id number] [address] [address] [place] Calcium [Mass/Vol] 9.7 mg/dL Normal 8.5-10.2 [facility] Comment on above: Order Comment: Speci men Type: BLOOD SPECIMENOrdering Facility: [facility] Address: [address] [place], [place] [address] Performed By: #### 1 9123-9, 3016-3, 2777-1, 93329-5 ####[facility] [id number] [address] [address] [place] Chloride [Moles/Vol] 103 mmol/L Normal 97-105 [facility] Comment on above: Order Comment: Speci men Type: BLOOD SPECIMENOrdering Facility: [facility] Address: [address] [place] [address] Performed By: #### 1 9123-9, 3016-3, 2777-1, 85807-4 ####[facility] [id number] [place] [address] [place] CO2 [Moles/Vol] 24 mmol/L Normal 22-[address] [facility] Comment on above: Order Comment: Speci men Type: BLOOD SPECIMENOrdering Facility: [facility] Address: [address] [place] [address] Performed By: #### 1 9123-9, 3016-3, 2777-1, 78807-8 ####[facility] [id number] [place] [address] [place] Creatinine [Mass/Vol] 1.04 mg/dL Normal 0.73-1.22 [facility] Comment on above: Order Comment: Speci men Type: BLOOD SPECIMENOrdering Facility: [facility] Address: [address] [place] [address] Performed By: #### 1 9123-9, 3016-3, 2777-1, 86806-3 ####[facility] [id number] [place] [address] [place] Creatinine and Glomerular filtration rate.predicted panel (S/P/Bld) 101 mL/min/1.73m??? Normal >=[address] [facility] Comment on above: Order Comment: Speci men Type: BLOOD SPECIMENOrdering Facility: [facility] Address: [address] [place] [address] Result Comment: Michelle mated Glomerular Filtration Rate [...] Performed By: #### 1 9123-9, 6-3, 2776-, 27015-6 ####[facility] [id number] [address] [address] [place] Glucose [Mass/Vol] 107 mg/dL High 74-99 [facility] Comment on above: Order Comment: Ngoc liu Type: BLOOD SPECIMENOrdering Facility: [facility] Address: [address] [place] [address] Result Comment: The [place] Diabetes Association (ADA) provides guidance for cutoff [...] Standards of Medical Care in Diabetes 2016, [place] [employer]. Diabetes Care. 2016.39(Suppl 1). Performed By: #### 1 9123-9, 3015-3, 2776-07, ####[facility] [id number] [address] [address] [place] Potassium [Moles/Vol] 3.9 mmol/L Normal 3.7-5.1 [facility] Comment on above: Order Comment: Ngoc liu Type: BLOOD SPECIMENOrdering Facility: [facility] Address: [address] [place] [address] Performed By: #### 1 9123-9, 3015-3, 2776-, ####[facility] [id number] [address] [address] [place] Protein [Mass/Vol] 6.7 g/dL Normal 6.3-8.0 [facility] Comment on above: Order Comment: Speci men Type: BLOOD SPECIMENOrdering Facility: [facility] Address: [address] [place] [address] Performed By: #### 1 9123-9, 3016-3, 2777-1, 07940-0 ####[facility] [id number] [place] [id number] [place] Sodium [Moles/Vol] 139 mmol/L Normal 136-144 [facility] Comment on above: Order Comment: Speci men Type: BLOOD SPECIMENOrdering Facility: [facility] Address: [address] [place] [address] Performed By: #### 1 9123-9, 3016-3, 2777-1, 77771-7 ####[facility] [id number] [place] [id number] [place] Urea nitrogen [Mass/Vol] 13 mg/dL Normal 9-[address] [facility] Comment on above: Order Comment: Speci men Type: BLOOD SPECIMENOrdering Facility: [facility] Address: [address] [place] [address] Performed By: #### 1 9123-9, 3016-3, 2777-1, 59189-5 ####[facility] [id number] [address] [address] [place] HISTORY PHYSICALon HISTORY PHYSICAL HNO ID: [id number] Author: GIOVANI SANCHEZ MD, PhD Service: Neurology Adult Epilepsy Author Type: Physician Type: H&P Filed: 12/31/2023 12:28 Note Text: NEURO EPILEPSY ADMIT NOTE SERVICE DATE: 12/30/2023 SERVICE TIME: 10:14 AM NIGHT AND WEEKEND COVERAGE: After 5 pm and over the weekends, please page [phone] to contact the epilepsy resident/fellow/prov ider stone paver ATTENDING PHYSICIAN: Dr. Giovani Sanchez [facility] UNIT: H71 - Adult Epilepsy Monitoring Unit [...] mild developmental delay, he was treated for COMBINATION SAW OPERATOR infection with initial presentation but patient/family unsure [...] testing was not completed); was transferred to [facility]; was treated with IV medication (Keppra) [...] evaluated in several facilities, most recently in [place], where he was told his episodes were [...] were excerpte (more content not included)... Normal [facility] Magnesium SerPl-mCncon 12-29 Magnesium [Mass/Vol] 2.0 mg/dL Normal 1.7-2.3 [facility] Comment on above: Order Comment: Speci men Type: BLOOD SPECIMENOrdering Facility: [facility] Address: [address] [place] [address] Performed By: #### 1 9123-9, 3016-3, 2777-1, 88563-9 ####[facility] [id number] [place] [address] [place] NURSING PROGon 12-30-2023 NURSING PROG HNO ID: [id number] Author: MICAH PEÑA RN Service: ? Author Type: Registered Nurse Type: Nursing Progress Note Filed: 12/30/2023 12:15 Note Text: Pt admitted to [facility], oriented to room/unit. Safety and sz precautions initiated. Will continue to monitor and provide support. Normal [facility] PT panel Coag (PPP)on 2023 INR Coag (PPP) [Relative time] 1.1 {INR} Normal 0.9-1.[address] [facility] Comment on above: Order Comment: Speci men Type: BLOOD SPECIMENOrdering Facility: [facility] Address: [address] [place] [address] Result Comment: Idania min K Antagonist (VKA) Therapeutic Range: INR 2 to 3 (Target INR of 2.5) Note: For patients treated with VKA drugs, such as warfarin, the [place] [employer] 2012 Guideline recommends [...] Chest 2012, 141:7S-47S Nickie SALCEDO et al. [facility] 2017, 70: 252-289 Performed By: #### 3 4528-0, 33596-1 ####[facility] [id number] [place] [address] [place] PT Coag (PPP) [Time] 11.4 s Normal 9.7-13.0 [facility] Comment on above: Order Comment: Speci men Type: BLOOD SPECIMENOrdering Facility: [facility] Address: [address] [place] [address] Performed By: #### 3 4528-0, 48764-1 ####[facility] [id number] [place] [address] [place] Phosphate SerPl-mCncon 12-29 Phosphate [Mass/Vol] 4.1 mg/dL Normal 2.7-4.8 [facility] Comment on above: Order Comment: Speci men Type: BLOOD SPECIMENOrdering Facility: [facility] Address: [address] [place] [address] Performed By: #### 1 9123-9, 3016-3, 2777-1, 99407-9 ####[facility] [id number] [place] [address] [place] TOXICOLOGY SCREEN, ROUTINE U RINEon 12-30-2023 Amphetamines Confirm (U) [Mass/Vol] Negative Normal Negative [facility] Comment on above: Order Comment: Speci men Type: URINE SPECIMENOrdering Facility: [facility] Address: [address] [place] [address] Result Comment: Cuto ff threshold at 1000 ng/mL. Performed By: #### U TOX2 ####[facility] [id number] [place] [address] [place] BARBITURATES, URINE Negative Normal Negative [facility] Comment on above: Order Comment: Speci men Type: URINE SPECIMENOrdering Facility: [facility] Address: [address] [place] [address] Result Comment: Cuto ff threshold at 200 ng/mL. Performed By: #### U TOX2 ####[facility] [id number] [place] [address] [place] BENZODIAZEPINES, UR Negative Normal Negative [facility] Comment on above: Order Comment: Speci men Type: URINE SPECIMENOrdering Facility: [facility] Address: [address] [place] [address] Result Comment: Cuto ff threshold at 200 ng/mL. Performed By: #### U TOX2 ####[facility] [id number] [place] [address] [place] Cannabinoids Screen Ql (U) Negative Normal Negative [facility] Comment on above: Order Comment: Speci men Type: URINE SPECIMENOrdering Facility: [facility] Address: [address] [place] [address] Result Comment: Cuto ff threshold at 50 ng/mL. Performed By: #### U TOX2 ####[facility] [id number] [place] [address] [place] Cocaine Ql (U) Negative Normal Negative [facility] Comment on above: Order Comment: Speci men Type: URINE SPECIMENOrdering Facility: [facility] Address: [address] [place] [address] Result Comment: Cuto ff threshold at 300 ng/mL. Performed By: #### U TOX2 ####[facility] [id number] [place] [address] [place] Ethanol (U) [Mass/Vol] <11 Normal <11 [facility] Comment on above: Order Comment: Speci men Type: URINE SPECIMENOrdering Facility: [facility] Address: [address] [place] [address] Performed By: #### U TOX2 ####[facility] [id number] [place] [address] [place] Opiates Screen Ql (U) Negative Normal Negative [facility] Comment on above: Order Comment: Speci men Type: URINE SPECIMENOrdering Facility: [facility] Address: [address] [place] [address] Result Comment: Cuto ff threshold at 300 ng/mL. Performed By: #### U TOX2 ####[facility] [id number] [place] [address] [place] oxyCODONE cutoff Screen (U) [Mass/Vol] Negative Normal Negative [facility] Comment on above: Order Comment: Speci men Type: URINE SPECIMENOrdering Facility: [facility] Address: [address] [place] [address] Result Comment: Cuto ff threshold at 100 ng/mL. Performed By: #### U TOX2 ####[facility] [id number] [place] [address] [place] Phencyclidine Ql (U) Positive Abnormal Negative [facility] Comment on above: Order Comment: Speci men Type: URINE SPECIMENOrdering Facility: [facility] Address: [address] [place] [address] Result Comment: Cuto ff threshold at 25 ng/mL. Performed By: #### U TOX2 ####[facility] [id number] [place] [address] [place] TSH SerPl-aCncon 12-30-2023 TSH Qn 1.600 m[IU]/L Normal 0.270-4.[address] [facility] Comment on above: Order Comment: Speci men Type: BLOOD SPECIMENOrdering Facility: [facility] Address: [address] [place] [address] Performed By: #### 1 9123-9, 3016-3, 2777-1, 72766-0 ####[facility] [id number] [place] [address] [place] aPTT PPPon 12-30-2023 aPTT Coag (PPP) [Time] 31.1 s Normal 23.0-32.4 [facility] Comment on above: Order Comment: Speci men Type: BLOOD SPECIMENOrdering Facility: [facility] Address: [address] [place] [address] Performed By: #### 3 4528-0, 70407-0 ####[facility] [id number] [place] [address] [place] lamoTRIgine SerPl-mCncon lamoTRIgine [Mass/Vol] 7.6 ug/mL Normal 1.0-13.0 [facility] Comment on above: Order Comment: Speci men Type: BLOOD SPECIMENOrdering Facility: [facility] Address: [address] [place] [address] Result Comment: This test was developed and its performance characteristics determined by [facility]'s [place] [facility] Pathology and Laboratory Medicine [place] ([facility]). It has not been cleared or approved by the FDA. -[facility] is regulated under CLIA as qualified to perform high-complexity testing. This test is used for clinical purposes. It should not be regarded as investigational or for research. Performed By: #### 6 948-4, 90211-3 ####[facility] [id number] [place] [address] [place] CNCONon 11-12-2023 CNCON Consults (NE50MN) COREY ALONSO III ([id number]) 1995 M Date Time Provider Department 11/12/23 KELLY SANDOVAL50EVELIN During your visit today, we recorded the following information about you: Shandra Berman APRN.SENIOR ACCOUNTING ASSOCIATE 11/13/2023 8:26 AM Signed [facility] Review of Records Patient: Corey Alonso III Address: [address] [place] [address] Impression: Review of records for Corey Alonso [...] Levetiracetam PMH: asthma, anxiety, depression PRIOR EVALUATIONS: [facility] [address] [place] [address] EEG ([facility], 11/28/2021): Normal EEG with no focal slowing or epileptiform activity. VEEG ([facility], 08/07/2022): During this day of recording no events were recorded. The interictal EEG was normal. Monitoring was continued in order to record the patient's typical events. (Only one day of monitoring was recorded) MRI brain wo contrast ([facility], 11/28/2021): Motion artifact mildly degrades the images. No acute brain parenchymal abnormality KALIA Recommendations: - Admit to EMU for VEEG monitoring, diagnostic evaluation Location: [facility] [place] - Visit with Dr. Greenberg prior to admission - Additional testing to be considered by epilepsy clinicians Signed: Shandra Berman APRN.SENIOR ACCOUNTING ASSOCIATE November 12, [address] Sandoval for review and recommendations. MD Recommendations (as discussed with Dr. Sandoval): - Please proceed with the above plan. ===== Please route this encounter to the EMU Scheduling Pool ( P EMU ) or PMU Scheduling Pool ( P PMU ) through LOS AND Follow up ===== PHASE 1.0 AND 1.5 ORDER SYNOPSIS Patient: Corey Alonso III ([id number]) Best contact number: [phone] Insurance: Payor: [place] [employer] / Plan: ANITHA [facility] MEDICAID / Product Type: Medicaid / Scheduling Team: Please call for adult patients: Tigist Ruano ([phone]) Sarah Solo ([phone]) Omega Ramos ([phone]) Ivory Wan([phone]) Eulalia Mittal([phone] ) Please call for pediatric patients: Ivory Wan ([phone]) Tigist Ruano ([phone]) Sarah Solo ([phone]) Omega Ramos [phone]),Luther Mittal([phone] ) 11/13/2023 -- Admission Type EMU Adult Number of Days requested [address] [place] [address] Admit Priority Routine 11/13/2023 PURPOSE Patient Being [...] Diagnosis:Seizure (HCC) [R56.9] Order(s):EPIL EEG LEAD PLACEMENT [[id number]] Order #: [id number]: 1 FUTURE EPIL VEEG ADMIT TO EMU/PMU [[id number]] Order #: [id number]: 1 Prescriptions as of 11/13/2023 - OXcarbazepine (TRILEPTAL) 300 mg tablet Take 300 mg by mouth twice daily. - lamoTRIgine (LAMICTAL) 200 mg tablet Take 200 mg by mouth once daily. Problem List As Of (more content not included)... Normal [facility] CNPNon 11-12-2023 CNPN Telephone (NE50MN) COREY ALONSO III ([id number]) 1995 Date Time Provider Department 11/12/23 SUSANA, MERRY NE50MN During your visit today, we recorded the following information about you: AlfonsoPatrician 11/12/2023 3:01 PM Signed [facility] Initial Intake Interview November 12, 2023 2:53 PM Caller: Corey Relationship to pt: Self ===== Patient name: Corey Alonso III Age: [age] year old Address: [address] [place] [address] (home) Insurance: Payor: [place] [employer] / Plan: [facility] MEDICAID / Product Type: Medicaid / Referred by: Self (word of mouth) Referring to: Dr. Greenberg Reason for Evaluation: further evaluation and treatment Previously evaluated at: [place] [address] [place] [address] Fax: N/A ===== Age AND date of [...] or No Date Facility EEG Yes 2021 [facility] Video EEG Yes 2021 [facility] MRI brain Yes [address] [facility] [address] brain No fMRI brain No PET [...] Status:Closed by EULALIA MITTAL on 11/12/[address] [facility] Consent for Treatmenton 09-0 Consent for Treatment [id number] 30 [id number] #1.00CD:127 Normal [facility] Discharge Instructionson Discharge Instructions [id number] 1#1.00CD:127 Normal [facility] ED Clinical Summaryon 2022 ED Clinical Summary [place] [id number] ED Clinical Summary Person Information Name: GAVIN GODFREYCOREY [facility] Age: 27 Years : 1995 Sex: Male Language: Burmese PCP: EMELI CHI CNP Marital Status: Phone: [phone] Visit Id: Visit Reason: Wound reevaluation with [...] 03/31/2023 17:04:18 03/31/2023 17:04:18 03/31/2023 17:04:18 ADDRESS: [address] [place] [phone] PHYS DOC NOTES: MEDICAL INFORMATION: Prescriptions Given: Medications to Continue with No Changes Other Medications lamotrigine (lamotrigine 100 mg oral tablet) 2 times a day. oxcarbazepine (Trileptal) By Mouth 2 times a day. PATIENT EDUCATION INFORMATION: Instructions: Wound Dehiscence Follow up: With: Address: When: EMELI CHI [address] [place] [phone] Business (1) In 3 days 04/03/2023 Comments: [...] sutures are removed. DIAGNOSIS: Wound dehiscence Normal [facility] ED Note-Physicianon 03-31-20 ED Note-Physician Basic Information Time Seen: Ramón Carrizales DO 03/31/2023 16:48 Chief Complaint Had stitches at [facility] 2 days ago on L thumb. States [...] 04/03/2023 EDT [address] [phone] Business (1) Additional Instructions: Call the office [...] Diagnostic Results No qualifying data available. Normal [facility] Comment on above: Result Comment: [...] these instructions at home: Medicines ? Take dnsg-kvx-qhwakek and prescription medicines only as told by [...] and water are not available, use hand screw machine tool setter. ? Gently wash the wound area with [...] Revised: 12 (more content not included)... Normal [facility] ED Patient Summaryon 023 ED Patient Summary [address] [address] Patient Discharge Instructions Person Information Name: COREY ALONSO III Age: 27 Years Arrival Date: 03/31/2023 16:41:41 Discharge Diagnosis: Wound dehiscence Primary Care Physician: EMELI HCI CNP Provider Information Primary Provider: Ramón Carrizales DO Advanced Machine Chocolate Molder:None The exam and treatment you received in the Emergency Department were for an urgent problem and are not intended as complete care. It is important that you follow up with a doctor, nurse practitioner, or physician?s employment legal assistant for ongoing care. If your symptoms [...] With: Address: When: EMELI [facility]I [address] [place] [phone] Business (1) In 3 days 04/03/2023 Comments: [...] opioids can be used to help relieve ytrwcwkd-bl-jkljlt pain and are often prescribed following a [...] ? Stor (more content not included)... Normal [facility] EMS Documentationon 10-10-19 23 EMS Documentation Please click on link to see report pdfCD:[id number] iRgMBGkLyc9RMCiVuSDB vJsgZVOzhB99mpPYhkPJ oPTY8CsDoKXDeDLI9FxG wIFIgMiAw KSUrOAQ5SKWzMGNvBUK0 GFKlHRYtZ4Lpx4PJi6oq QV5sARVyFGE0IKXtKNS3 RLHwVL9mE9RnfFDr MTAwNCAwIFIvSUQgMTAw EIPmIEZmTWGvnXGBl9tc YD0jLXRxXQD5RTXoHOO8 LQHrBN9jZUebMT9a K4NpjwYarTY5HwPgKHXB G3Fog745wrUaeod5X5Fv iW9yN3DjT9Z8GE8MXbPf DYy2VRUbMi9+L0Zv roY8ZJ1UFKIgIMpzFJCj Zo9FBPFpNMb3HLXhZt4L DBOqKRhmOOAxEx0DNUEy ZOEdZZVXL5NDEWDb NSAwIFI+Lp1Jlq0aA7K2 Qp2IHYFuDSN0oU0bLGs0 O2E7OXWjWDXoVTHdAKCL Y8jRKczuE4EzDHK3 NiAwIFI+By5Rw7JqtGPi SZ1TtNL3O6XIZROnrxCh NQRsP2G5tWViQTLyOV1Y FIVrX5P+PgplbmRv GgvICwCkLJ4xyez8NN8M WV7noWrrQpA3CYV+PnN0 hpPldLybK5DuALOtHEUg MMNybavwTTG9FXKh CCszDjn7BV96ZCNziyZQ SfkbPEQsF06DVDWbKcd2 VBN9TsAcIX79WKZdDMka LdEwQLM7YH4oJALm Frl5SKIqPsr2MDGhQrPT OXt2UxD6MAG0EJ5nXNSe Aya0HMBnHdg4EMJbTrCY JEXyUta3WnK3MOJ5 MqTcRY62NOVoKEsiMdWz DAY9PTO6XiUsYHMyRbYf inNEJccyMKQ9MLInSvHq EO32UNJyAOXgpiSD Ijj0DVLhNmHbGtg8BuD1 GFLxClRhORZ7XLNtFyQL UY76FZwyPSBwscqnZA84 EEM0PUQbFVJhQCam MjUgLTEyIHJlCmYKMCAg t2UqBfSvJfj1RQS0Gq4b NSAyODcuMjUgLTAuNzUg cmUKZgowLjkxOCAg j9KoFzG5SAB8FVDnBFAv ODcuMjUgLTEyIHJlCmYK OLAgy6CaBsT0QMB7GIQm FnEuZqc0NlS9NE1t Laa7SHKfKzWMCPQdEtUa RcG9VMK5AvVoVB02MSJa VQmmOdHwYME6FW94GHF7 OnCdAP72DJYkQSgh EqHbCHV5WJ4zJLCeXif8 NB79RI53IJNgCoOROHd8 WgF6XEI2QF6xLBGzQmr0 BO71WQ84SULeHjBM CF16RYrrIWBdputhZO59 VWO8GMdnFBN9FtRlZPGb JKGmjiWXDhuaQUGiK03K JSMuHhKsCcR7XpM0 DUL7QB47UT6vQvc5JROm EvAXYLS1XyBfIhU5PXTb Ko4xJGJjAU93TVKhZFzx TxL2Mt64TTO2KW0n NSAxMTYuMjUgLTAuNzUg faBIJdw4FycnZOJ2LjTq AE89PVIoSQFzCEZbIPrf PoY0HvH8WfAaXZ38 NSAtNTUuNSByZQpmCjAu BZG7AMWlW07LHRW6RbH7 HFPrKN6tFRQySKTcFhCm LTEyIHJlCmYKMCAg l7NwKtQ8MC5dIFX7IjJj FYZ4Sgq3DJ7xUro8UOLe RkDKECAkDWfvDos7NZN4 AhBtVK98YLDrTMwj JaPhTHRjTvK8MpMpTBVx LoJxkyNNNgdnGSJ4VbJh GmYxWT68KEIfBhHlMNOk OMxuCfY4OW3yTXJ8 QtUtKcIcQE02OWAiMfTx XXVkSDoiJhSkOXW2BTCw F65JAJCeYoYjNPziVZM2 AA32XB8bGyHwEPwo QiWrXCBylfjiGQ93QJK7 LFgrPyGkYRr8CzSbXCIv ZuOqggKZWzieCJU1Opeu QxQnJNi2MF6vDpk0 IHJlCmYKMTAgNDUzIDU3 LyHfOZ33PXVtFOynIfLx ONNwMw3bFHDsAlf3GS14 PIArYPykZcQ8YT7o SFR6XgstYqCpEY17IWCo NzUgcmUKZgowLjkxOCAg f3SbFiJyDyj7QLBbLi93 LAC0VK98EY9aQjGy GOvoOwFxKBGgwiukMO01 IKK6XJAaKvHqJLf4ZgOh LTAuNzUgcmUKZgoxMCA0 KtWuKAM0LvVlVWGc NzUgcmUKZgoxMCAzODcu CdWvGRy2GS9gTbn9MWPn CxRTHESnJKZpFgRtIR77 NSAtNDYuNSByZQpm WbH2KJ4xAVA1FyYbEINy Lev6GS39Ul67SUYuUeEQ IY06DHjmPTUwpnjiTS47 EMW5YbPpQnDwCJl1 LjUgLTEyIHJlCmYKMCAg e5KgWuXmFws6CKMyQK92 QMF9YY86CD4aOte7KKNp UdWQSG81PWttNZMo bgoxNiAzNzcuMjUgNTYz SzY5PN2gCJ84YBScNgTU NGCyx7QxFcM0RRY5Uy96 CKLzTv24XUFeVyWr NzUgcmUKZgowLjkxOCAg b3EqKjI7JNC2Nq85SJRf Wy78INPfVwXrUzSpeaBC ZhonQGVlD58TUNCa AzQeNrF8Cns6LUX2XtNt LTEwLjUgcmUKZgowLjkx TSVih5OwXlVzBbw0MKZ2 Ga97XGP1EJ78IN7u RP18OHAsMqSBFAAth3Uk IuDyEK1oYRMsJsEmIsEy MjAuMjUgLTEwLjUgcmUK CmmwOoruHXPrc2Vu RsCzOR6wSNGbLaWdJhWz MjAuMjUgLTEwLjUgcmUK TppkNRLjC64ZNEMsKrPo DuB9Wxy9LOI4PbWy LTEwLjUgcmUKZgowLjkx WOZdd4MiMdUbGV04ANZ0 Aj41OCL3FA53JP2lUM33 VOPtNhQFVINed9Zk SjX0YDMoKcJkXyEgNofc NSAtMTAuNSByZQpmCjAu RSM9IGZnY62OHMsvSBH7 Ei15DEQbMR58AV9m YZ98JNTjZdMQABSwb6Dr KzXgUA25KQQ6Tv19KMZ9 MiAtMTAuNSByZQpmCjAu GBG8KVPvF21KRgY4 ZnKvZgZ5Gox3ROXpJT0y JJ89NMIdDwBMGKTvj8Pe LvR0JT99KDG0Ke60GSXk FF71TS9vUG80BXVl EaKAAF37MAkbPPMwkgrv NTEuNSAzNjYuNzUgMjUu NSAtMTAuNSByZQpmCjEg IHNjbgoyNzcgMzY2 Wmr0YCMjBp4pNKXmMEXh RIGfLJykItAyXNQ4JSWp M87MRoj9MEJ7Tz66YXBl MTYuMjUgLTEwLjUg xvXZRecoYCMyG52TFemi CwO0ADV7Of49OADoEM18 UJ4aER45KDFcLyDIXG08 MTggIHNjbgozOTMu XcGsBlO8Skv7UAJ8DcNi LTEwLjUgcmUKZgoxICBz K65UABQkRev6ZJO5Hu86 DLR4OaYdHPEyTNLl KIarBbSeZGG8DBJiG97O KQTzRbt7OZH0Xv67YXD9 MyAtMTAuNSByZQpmCjEg NMSqefa3HEKhLlDw OmI3Kot3ZWR6LsQaMPBc LjUgcmUKZgowLjkxOCAg o9SeHmB0KB03PFApWyKr NzUgMjguNSAtMTAu NSByZQpmCjEgIHNjbgo1 UJQzNeDzQcI1Oxj7YSQb LjUgLTEwLjUgcmUKZgow WbtjOFBii3WvGqHd Qd9aBSYlMfTsZeXxZeBf NSAtMTAuNSByZQpmCjEg DNLmueb2TXIkFaMtNxC9 Oas3CBB7AoNtWYHh LjUgcmUKZgowLjkxOCAg e8JfJyQ6VC44EPViMjRq NzUgMjUuNSAtMTAuNSBy ZQpmCjEgIHNjbgo1 WwFvHdMnPeG8Ksk7GYld LTEwLjUgcmUKZgowLjkx TTAmt2LfEmQ8LU1hESSm NjYuNzUgOSAtMTAu NSByZQpmCjEgIHNjbgo1 Kh90CBAmSRTvXwRhGYhu NSAtMjAuMjUgcmUKZgow QibvALTov6UgSkMp Krg1RJL1Kj9dKIW3WR88 UG6tEW1zGUZpGPejJoFg IHNjbgoxMTEuMjUgMzU2 HtT4LIIzCiS5LC5z TK0tUHIqAJmdGpQfVPN8 NNWwI19TPUWlXqY3OSU9 Lt8zWJNyFB5hCHApCiJc MjUgcmUKZgoxICBz I24UDLOpBaRvAhX2RcQ0 SED8MsGrWTHhQvK3AUIq ClRHIS74XTojKHIbhitf MzEuNSAzNTYuMjUg NDkuNSAtMjAuMjUgcmUK SjdlHERgL64KPDzjOKJ2 Jb4bDXLtAW37DA1lRW0j NSByZQpmCjAuOTE4 IGIcD66IUEbkNXT6Iu9x WXDmKO28TI7ePL6mFMFh ZQpmCjEgIHNjbgoyMDku NSAzNTYuMjUgNDIg GDXtGsD7IYYeZdAOJL30 MTggIHNjbgoyMDkuNSAz NTYuMjUgNDIgLTIwLjI1 TTTqXvSKQYEvu6Ae YeE9FF99BBQ6Jt6oGPVf CP58ME7rWX4wJVTiLTlk GxErKOL1CGOfD97BVuUc GmNkLiL2KgM4SWB4 XzVqRJLwItJ2TGGnYcCK UFDwo3JwWlJ6TxEvWVKj UcCzGXR9MgW2NG2pYW4y NSByZQpmCjAuOTE4 KBYfF52IQid2QSA5Ad7e NSAxMTYuMjUgLTIwLjI1 FZKyJxLVLFZzo3CfVpC2 Ik7kNOCwWAGcNrPr MjguNSAtMjAuMjUgcmUK JnbtZrlhQPFbs6ToXoI2 Sa6hLNEaGRLhHxUhRmiv NSAtMjAuMjUgcmUK IcyeCDRxC83UEWWxDvr5 KER6Qq2aHND8VY37OX0h LQ4fIPRoLQqyOzIwPLQ3 TZHrX92NTDDaIof4 MLN4Fh8lRXF5EG73VD4o GZ2vVETbYJwvUpEvALQn dig6PMCmTmQqPxO0SvC3 DZK2TV5zBW2bBXKi JOneUvBzBMH7PMYsG03D NZToOuB1DJS5Xx0aSMX7 NiAtMjAuMjUg (more content not included)... Normal [facility] EMS Documentationon 10-09-19 23 EMS Documentation Please click on link to see report pdfCD:[id number] xLjQNCiX5+prnDQolQUJ ZlHZzCAOpWkG6HRoaVuB lWL7sbx7MXHqPN8JjTZN xAEM3Nq1L LJboYLc5YFWdLN8WX2qf LYwjOJK7Pv1IyY6aOHIk shFlKJWVP16pJucwNaUt NQovVCAxODAzNDgK Zv2eGTQcMVRpUYReNAGe ICAgICAgICAgICAgICAg ICAgICAgICAgICAgICAg ICAgICAgICAgICAg ICAgICAgICAgICAgICAg ICAgICAgDQplbmRvYmoN Oj2YnPZcNw9ZNeRfUvMB CjAwMDAwMDAwMzIg JJBaXZGehw2GHGSaKHLq GBI5DWQwTWJxZZUrKJec RDJmTPYuBVb1RCWnOZXt IM0KNgGeIGTmTKT7 TLAoQIEuRQXtob1GPHNk MDAwMTkzNSAwMDAwMCBu PDthZNRjRIXbMVt0IUWm UDToDH9CDcRxHCSo MBEiMnVzVFZaGRBhmc7A MDAwMDAwMjMxNiAwMDAw MCBuDQowMDAwMDAyNDAw MUPiWBHwIX0FHvZz DBYlEZE5SVjlPGDhTNJo yf7FGVPoNHPxDvudEDAx MDAwMCBuDQowMDAwMDAz AEB0MMNzKGBlQN7V CdIcWFFgPPU1GGCjBAWm JEXqdk6WSRTiHXUaGnC7 OCAwMDAwMCBuDQowMDAw PHPvPHZ2ZSBmDMQq CQ9YCgUaOHPcVVXmIJKa VFBpFFPxrr3UDGIsPSGr NDQzOSAwMDAwMCBuDQow TXNnNVS3WwOyKZJd BRXuBS4QGgNvMJYgKIV3 GZhlAPKhKMLpat5PFLPe MDAwNTExMSAwMDAwMCBu HPulFUIdIYT7WDQb RCSzUZOpES0AHnVlYNHw FLJ2HvgbUWJxFYKzkm9Z MDAwMDAwOTYzOCAwMDAw MCBuDQowMDAwMDUw JtU7DGVsXTVyIM4GOiDu MDAwODgyNDYgMDAwMDAg vt6SdCLbaLvmtb8PPWjV W7oIHYe7AEvJHvrg GIUoCcK6QyYsPQvaSXTy DAF2JrF2WzKNCRA+Cjwz GyKAXDD5LqKTHQSjOOQ1 InbsTWKKZVJNC0O2 ONQQYB5mSw0WtxK3SKE2 EUOyBmtzTl3juYMoLuVc VPQBL0TcrkBgUFcKJ1Po iZLmDLPqS3VWAHQ7 Mf60QfiggVlUAWM9OJHI MGsjYI6SRdbNMqXuSMxy Bo95Y2BFw6H6VzWuP5BG mKhAdvNZHHwbW6sA vJH8d1ivnXdWxGCLvTse OGdJcndPalFSQUlqUHNX wJ48znrLL2UwTHh8O0CY Ut4RCZecVtHqyZ3G hLqdUCX5hZ1dZOCYYLvV OqohKX9GBLFLNZe6IWa+ PiAgICAgICAgICAgICAg ICAgICAgICAgICAg ICAgICAgICAgICAgICAg ICAgICAgICAgICAgICAg ICAgICAgICAgICAgICAg ICAgICAgICAgICAg ICAgICAgICAgICAgICAg ICAgICAgICAgICAgICAg ICAgICAgICAgICAgICAg ICAgICAgICAgICAg ICAgICAgICAgICAgICAg ICAgICAgICAgICAgICAg ICAgICAgICAgICAgICAg ICAgICAgICAgICAg ICAgICAgICAgICAgICAg ICAgICAgICAgICAgICAg ICAgICAgICAgICAgICAg ICAgICAgICAgICAg ICAgICAgICAgICAgICAg ICAgICAgICAgICAgICAg ICAgICAgICAgICAgICAg ICAgICAgICAgICAg ICAgICAgICAgICAgICAg ICAgICAgICAgICAgICAg ICAgICAgICAgICAgICAg ICAgICAgICAgICAg ICAgICAgICAgICAgICAg ICAgICAgICAgICAgICAg ICAgICAgICAgICAgICAg ICAgICAgICAgICAg RU5Wz3GdflX1goGfIUtj UBoeNPQEQk0ZIBoaKrBo OW3ppx5HSQlWF07ntAPb YXRhIDIxIDAgUgov B1DlwsPotMgxhpEhPhTi GBZCTf1BqCTSLCigE1A8 mUxcMNUbYSddDUTDJv4P YObsOP1fDUHxULQg Qi5uTJbuTMAkSOIaCfEp KSVEUz9XcFQwQK0GPGZl mM6nRy3+DQplbmRvYmoN Ub1WBnSlZBWvSjeQ Rbx9Iw2TpTt8WBEvU6Pm FRGoYKPqc0MrJy8VDZ4u gIanKYL7Ru9JOPi7Bc9+ QShxjAPdHD2UCmfh L8BsWJCkKNPcSYHxLL3C IuFAAQpTgGwhIOYCizKu C2Rg+TxOgF1guFbKiTUC FULk4WGXRcQc91Bq DlUEoouA+ZIFCgIf0b+k r9O5RQTaTBO3eGLNAG2C 0bnGcp2PJd9AB2Z7TpuI VYBPTDtYzG6AMOgQ E/XOTuXxLCC1ffOqdR0K XZ1ue9SpAHoMGgC5CRSd d8AbYIc4VVvsO71uwIRo rKMiJnSlDSQiXf5U Z23vRRilJa27EWqrLFDg OoPcGBl8Fp9GJ4DeaxVe dOZoZXUhGDXOA3Uti739 vcYloyA8QVsoQO8e nvTuvGY1YAjiCFGsUeDb MjYgMCBSCj4+Cj4+Ci9U bAFgHQ9BYAqsAp4+DQpl vqWnNmgBNq2DVrQb XBBgXizPCbk9Gm0EYp33 JUybSNVwGsBjKQk9Ou4W Y6CpmFJrhzHrTjdjkEIZ LASpEHVFB9lekiz3 gBU5YwwtWaMms3IpY4Eq HKn6Mb2CI3LdRET1LLo0 Rh8EAZWoVwR7SmWtZKCX Ky3IEg7OH2E6TgO2 jSFpU2Bnao7PA6B9nZKx J9tQRxhkB8TMHw1BKhK0 zvYfbM2VzFvwmyPwVyFb MjRQMFUwtTRSMLcw UskC7vVSI1gi5ARJn6Gc MtUMPYIOCAxu6KrNwFY0 y4rS4bBuFymAhDUrkusH n5uPgU8RJ8oP5D0Q HI1mg1EqJYAyXJvqxlBd TsqNWb5INbnaQLSiYipX Kbp0Ja6VGCUpLb6hpZDd Mp4NCCCzGq3ZGgHx Xb9MToXvLo5UWyFaJw1P QJC1Fz2DRQM4bqPmJn7q YSAxCj4+DQplbmRvYmoN Fn8UHomcHAEjFhbM Uzs8Bz1MJLIuEb8jqUFq Cf0oHWVsTy2+DQplbmRv CwlNIp1GQnssHADrZpgL Ofk6Yp5PFFRaRz4q pFAoQp2BGLKiNl5XVwWx Vg7NRfBrAf7IBfLdYg8T GKC0Xx2LWQF8jrAeDd0f YSAxCj4+DQplbmRv MknMQn8GDiFaEEFjRefK Bvr9Lc1HWJGwZa7buTLc IA8ZMXMZH4SczPBiOJNS ZFpZAm2Ev3hwFBVE X5Jgy8PuwjMnywDNg415 igFmQzLnGJSAGFyjNT2w h1RgbyvuU2wwIF53bLS4 QQcMM9I8NzI2kGZb G2N7mRApUg0Ch6OiaBUv JAJfTqAdPDASGk5SsQXs NS7Iz116Vl0+DQplbmRv BnxJVe5OTeUjUJFx AsdJVzw2Tj8QKUIwQi5q gHBdND2DREJUP8BpfNYc GVDEHLuDOv8Ca4hyVRIR Y5LHYOC5n4AqoYrt Og8gPCnDI67aZNCgjV0z TWhJSCRhuBl6zPkHN5Fk Q9scqDH8HQcEVK1eEWiV U9S7mOItHL5fduFc MAo+DjjqB3uGCD2UWLGN LXZdO3vdSF21kDX8Kp5D RlVfPx6Ov451CAKpU7Kb cHRvciAzMiAwIFIK N2D1HjL5vWAoA1JYEUEk bnRUeXBlMgovVHlwZSAv Pq6krPrwSyEqOOO9YvW8 ABOgUGh1HqDmUl3+ DCixkcIaXhcTFf8LXcAb FDCqLzhENnx9Vt0Dr7At eiMcQTWkAzZnDJVgQc3T YXBIZWlnaHQgNTkx Uux5Ppj6Gw7FSPGdOA17 YZYqDQ5pFGW8ZjfrGcgs G6SwMjRVZ8FdvkVEGd07 KMbjKOjcYur0FLRp QJ66MKWgDFJ4LzMlJiGx YyK5SRN1XLYbWpEtCWmr KGEeAy3Bf774FpneBVGa YJJaBQOANi2Cz464 PlSpMXDxUU8HFDCHD2Ga lTMmDWFPZVpIZl9Al2nr LDPUB6x8YYwiZ5FtZ7ow ZTSRJ3W6KZ2QHXy3 RxT1IPh0Zr1AnOAcZA3E j002WECfK9QmaUIqcmj+ Ru4NDA9pt6WzSNpRIsFe CSKjf8HnZBo6KQad OlmlfFJkSN5WpJE0GRIx V33yCDrfLGTpN0ChMKR2 OQo+Ev5Po1FsYMXdSJd1 oD9Sx9eIQAE44mu2 TA/J6brfwYmNg9DPkCY3 W4SL81EAw0RDC/77yrtu NlYYSlIoGwajFMFg3beA a2i7qxQ041QMSmNf ibK5A8apYRimchHmDR4y 7DnDYIDgXI0Y3rYdVozM h87Ihsvj+C4huy3iZSYf ALjjotp9CDLAJ1G4 UgUB7YvcrqEH+tDppbWv 7GE8Wdx+VqGu/bIPnrvi o8OSJ3GuWNZEDRCnQqzM VNHMYuvYC6rnQqNU /riv7Hz1+y96HIaHMQPr SkQHQimiJEGUUqfNc/zr cH/lNIOaUR9I6HAMKvmA O6iWPmskiaWnT/TK icgKyZQkKdnzJyQzsuc0 3wMucJ9bZN/JNitNtwaw DjkPdwvzQ0BrIdXILJgd 5VQsU7mBvH8/mRia 4P5EZI8sn5TiUUFtUQxf fkPgFvmBIi8CTvAqQKTk BuvYXfb0He4SQDDoCu8g iBMsBxHLXZONK0Sg lUWgXQNBWZkOB56XTf4P XPOpJR6wVA62Be4zgZLx XgZ6DGBbFn9MK1HnZ91k gS4jFM0QQUXgvPn0 dP2QMv8KpEU8yHFlKK0A oWZtYBqqRA7Uhjtnl8Gq XGP5AGXpRhfb (more content not included)... Normal [facility] Coding Summary.on 10-03-2022 Coding Summary. CD:[id number]:[id number] Gh0bWw+PGhlYWQ+PE1FV HEgI56zzVCjkM8vX6QAP ElOSywgQVBQTElOSyIgb oYsPQ4ihVGwYHRr IC8+SM2gFNBpZidobEVm f1B8bNA6N12nke1wSQzt pMF9OVQaOtVveaiyk5xo lBc8CQauIndqCbPr REUhpO53LSS6lN21Vp07 qGIpjMKih3axrJk6FlUm SFBtGNS8pWhfKTihz5Ws BLCzZ32djTEno4R1 IGNvbGxhcHNlOyBlbXB0 zP8cFQzoowoea9lrahnt Rbg7po35uRPvt5J5nJM3 A0RqylI4TZFdfLFb YkkgtVSFmQ4zjvwyr6pi xpijShExRNMfALx7CTu0 TZAvqZwiZeCuUQ52DZY4 FVCqeoBdK7AaIUHp uNjjXwV5y4F9Fx7QE5KS EfogD4SSLAYUZRfikZH+ TV36kq38Z4QrZkyyWyq5 IDAlEDY8zEE0fM0n FKZfBIvmi5D9eWH1F2It ysPlox3ov0otEFEkMBcm F50vvUJpn0I2YFGbnIN2 UMVfyBrxDpCubT08 Oyc+CTBqvOzxe7GyYeoc g6cgo7arlSz9XwvdFPWt qxWffCycLVM8l1SkQd8s AXOpxLX0rKQ3wS1t SkFyEnV8RWzbX448YgDw oGDpRmmqC31hD8RmlSK+ PIBoZhs3FVTrcBdvEX5k P3ZxWTMewuijhHWf tPjnRM7eSHHwwqviAMOa eS0eTIGtB9j2YtMiWrP5 VOasD6SvUUJqykvuGk28 sZ6kZuFwRmY5DLgg I2OrvuW7HNZlhUPeKIcg TWS8D61ox2P5DXFtWLEh JRA8lRG8rA7bvTmbpdex bGVmdDsgdmVydGlj LTewDYvrX052TPArdNji PkNvZGluZyBEYXRlOiAg MDMvMDgvMjAyMzwvdGQ+ YEYkEPP7sUkhYFGd rMHmWDbfHv3gjJpfrEzs QJ0yFAChgksmKMKfrN2s TRBqeFVcuAgfVO6xDZQv dkggd042TsKdGAS1 UGTpvFJoM4XhcB3bYmCj CCFdAYYiL5YmrBXqQAij C480YKjiJlW4DVCrtoEx M6VcZIJvyVmgNxH5 e8V2Pf0Tx4QboiffT4Hc xEPgDwAyWeobKAw9R7Pc PjwvdHI+HU60TVSuJS60 GEi8OEO7ePlhCOnh OIGhC6KnwV0hYvPcPYVu ZGRkOyc+PHRhYmxlIHdp ZHRoPScxMDAlJyBzdHls GK2jRq6sVEOdGLWt vOpwtWZjVoWik7djLWJz ZSmfJS8icQzjX8KyrNP6 EONnq7o9Zf27D88uE6Ts dXA+KFNcsOV7oAQ9 sU2jYkZcIvD9EQpqZ344 JxJihJGsIvcyl5jyy3fb aSw9MuC2UVCdmfAwhNzi IAR3i1RzMa61C65m IHdpZHRoPSIxNSUiIHZh xPnhim5cuX9sJv1+PGNv bIZ6uRT9aS0bZeRuXrE3 UPkzH461ZpIdxRHe Rcavn6oik4qogGb0EyWi VIDmkzWbgWanVYG0r8Vx Zu57A5WlzItji5XdRxp4 nd98pASky8B8cMY5 U7KrNGHphpztsBZpdRoj PL6uFQBdekavGFZehH3m JAXbM1u3EqWuMdW7UMpo C1NspsE7YEVssKNc TNQblYQGsM4titkwh9tp fvuyMbZfXLQbDUf6DEy5 VFSblDotOzTsPBD8XjQ2 DZX7lOHhvA1mkKxa dzpbeY0sOkt+PYJ7gXDa cBYGPS8tGotpqIA+PHRk QBJ0wOsgBJrdBCUkeJ9y LLWsL2i4EyWzYgJ6 AHqpU6FnqqH8HXVvqTIg JUJxeNHRbZ6duyoxz8wy wryqRlLlZZFaFNo8NRq7 LWFsaWduOiBsZWZ0 HjY3LXA0oFZcgM5xhXax gupxcX4rWtv+QmlydGgg GEA6UVq4G1JqJsi1MWLm nZraVD5ueHCkRCdy Ev7eoBeaeXnnVS3bIJIt behhm673NoWyt3jlLFLd vCApJYcqVPH6J09cd1D9 UQWyJNCgOLA8bWK8 cN4boTuasfkqcVHleEev zdIxoFnrYFcvBBlvX311 IAJnqQnoQgWmMGe8T8Us Aku7ZKIkdWouVH5t gMVoPVnkJg5hlMldfQpt EF4sERHdegcee975LwDv c2krWCPgpDFtOVluSGU7 V68wz1V2WYZkFXUl BXV0vYF0xG9ziXqjfmwa bGVmdDsgdmVydGljYWwt WAisS034DUVejSssEoPm zRe2G5GxSbu3CVWt kJibXD4ouHWjEGuuZg1e zOvmeQayOF1gNQKispdb s300PsShh6yoSIHszORg BOzkPHK6I36km8R5 JVNgTTOwZES8sQV3gZ1u bGlnbjogbGVmdDsgdmVy xKvxTUymVGnnJ120BTHi cDsnPlBhdGllbnQg IDqcKTe2S9TzTxpfiQZ+ QE18JNEnDW10nAPnhBSt o0dwnEe4PlLqNTJoUBF2 oUseDKhbn4LhBSOe Q85spUXli0X6JIShpXmr mAWaPmUdoHC3eK2aZKum fdsck6qlrdqhHllks1wa yi83rF24I31jQSap ZHRoPSIzMCUiIHZhbGln xi9qrO0jJx9+PGNvbCB3 xZM4cZ4dVSXtOdI9CUyv V931QaBckVKeEwza i5mso7houCg6JsC0GCBn mpHwwKpaTFN6t7ZqMd52 N25xIGroVLGeDTTrRQWf CEVjyZpocn5ycC8g Ii8+HBVraCE1wNI9jP8q RfSiYqO6PRirD887WwVk uOJsLgxbW12kX0FkeEX+ GNCgPhh6IXGipCwc QY5usVUbPIlwEk1gPIX5 BjJoFkMzGHhcU6IaLLKo ixjqnykuhPY7HVQmLPJc mB84Id1rkHztXOYy oPUYmD7xhukbm2orykqx LySlDKAsCSd2DWf7WMDi oNxrMoCwTJN7UaR9VCD7 vNEbwV1acWuvgclu aI1lJ1NmFNGkixlyJi19 sQ9pWoAwZcC7PKlzRod+ REVMUEhJQSBJSUksIFJB VM8TZrCqUjionPM+ SXHdTNR9tJgrFItwUEUp wP2fBQCyT5u1AnIeBvN4 WVjxH1HpZGTimssuUm92 yP7cZwAeHsN2FQxi J9DnsaF6ZURgeLIaMXyh GVC7Z77le9D1NDXcZEOl YKQ5sOI6eP8bbQwsaxro bGVmdDsgdmVydGlj SXlwBSrrE466CKAkiEmt IkAtHdLoRgT9CRs4U1Sb Yfd3EWBwjIrvGR2hkMTu IPcuWx6gzWmjeJrg QE7mJZDthfngRVKgcP9a OJKthIXwgNheXU6pMODc qxgjc293IrExDCN9CBTo zLUaP6FkvK1tFrYd VWOhNUKdG3EtyTOtGOrk Y429ZGqzOtT5AIOykqFp P4OjYGVvfQmeReV8k1Q0 Kt1dRqDAMSBepxrd dGQ+PEPhVCG7pCueKVov SGXiuF5aLVAjV0h4ZgYn BqS0GBjkP8DwOWOtdcpv Dd74rG6mYhMiLhO5 HJabI6ZrksI4PLDyyPOx OCnlPCX8S32zi5O6UXOf XFDiPMQ2rDJ4qT0leAbp bjogbGVmdDsgdmVy vSdzXGkaNAjwZ396SZBo vQrsDo5hdOR4A0XpJle1 ZPSnuCviPD4xlGZdWUbd Zz3azSoyaWqlKC2z JLKhshlpVPUcpJ0xIGTd cPIhgXycQF5vHEDpvgta c881ByVyQQH0MVZjlTPj Z3JnwC9yMbGuTHFp AVJtZ7MdmJZjTQphD182 FThhPqQ5SGZuuhArK1Gq JBXnnJxeZtL2g2E8Xn4N nMSkW8DfK9p8B2Ac PjwvdHI+FU42NHAaFN33 tCRydOThr7xerMd1BdIj HYYaSUP6bOhmSDdhr5Xr TTPaZ03ajWYbj1B4 IGNvbGxhcHNlOyBlbXB0 bI0sCXjxpbjya4vgtnmq Ccwwb6cotm81lM90D43n IHdpZHRoPSIzMCUi FVXqoDhphk3tqC5jAz4+ SZOhyVY1wER9wS1xTyOv XrE7JLogK810LiNlfBEr Hjvxw6jzh2zzkMj5 IjIwJSIgdmFsaWduPSJ0 b9WxNg81A21oTPslRGLq QMGqVRPuTVQtiCjhtp2w pB0hOt2+IB9ck9gn ml78rB69jMB+PHRkIHN0 vJszJDwbHGRdwR9nTChf CaW2SGPhNxEjaH81nCEl HTfmRb8smRwegZqs XX6gKUJkdneqo091PnLn h6xvBTLahRFkBFivXUW3 K45ru9A2TXWtBDQoUUO8 oGG8qB1iiSaqrswx bGVmdDsgdmVydGljYWwt UVwdX432SVVqfWktDmPe dHIiJ9maddKHRT5nNpkg dGQ+QFOwEAT0uHqr TCdxKTZbbF1yRFEqT2z7 HxFfBxR0TIkuE9DhxuF5 YMYsqHYmLKYilALQpP8a xriwk6zgslrkDsHs OGIbWNo9YCp6HYGoqIkn BzDzGPR3ZjQ9PHG0fTLg vJ5zpIpoisnsmZ6cRtt+ RklOOjwvdGQ+PHRk IGR3pCpfAAygVQNspR2f CAJbU6k6YbNrZqG6BXpa L6YpcgR0SJZslYFbQPNi fRXMhT2xzzivr4sm lqqsSrEfVUOsQFg3VKw9 IIKgtWujVmUfBML9MhO7 PMT3gLHfoT1jhWhnqjzs lA2vAnd+TVJOOjwv dGQ+HIExIQB8lHocGPre MPNuuL4cUYRyX8p4NfRl UnT3SZzcB9HgniR1LUMu fQGfCRUoyQNAxE8d eydgp3hjewfxTzAaOBVy WTg6YPn9YYHchPyoTnDi CLX3BgG3MDZ3lVOnfF9p nGnsidkxmE8iIhr+ GAT1SIC6HR12FS91H4Ru PjwvdGFibGU+PHRhYmxl IHdpZHRoPScxMDAlJyBz uDggYZ4yHf8wBCCq LWNv (more content not included)... Normal [facility] Consent for Treatmenton Consent for Treatment [id number]:127 Normal [facility] Discharge Instructionson Discharge Instructions [id number]#1.00CD:127 Normal [facility] ED Clinical Summaryon 2022 ED Clinical Summary [place] [id number] ED Clinical Summary Person Information Name: COREY ALONSO III [facility] Age: 27 Years : 1995 Sex: Male Language: Burmese PCP: EMELI CHI CNP Marital Status: Phone: [phone] Visit Id: Visit Reason: Headache; Seizure; SEIZURE [...] 09/30/2022 21:30:18 09/30/2022 21:30:18 09/30/2022 21:30:18 ADDRESS: [place] [id number] PHYS DOC NOTES: MEDICAL INFORMATION: Prescriptions Given: Medications to Continue with No Changes Other Medications lamotrigine (lamotrigine 100 mg oral tablet) 2 times a day. oxcarbazepine (Trileptal) By Mouth 2 times a day. PATIENT EDUCATION INFORMATION: Instructions: Epilepsy Follow up: With: Address: When: EMELI ARTI [address], [place] [id number] Business (1) In 3 days DIAGNOSIS: Seizure Normal [facility] ED Note-Physicianon 10-01-19 ED Note-Physician [...] baseline. He follows with a neurologist in [place] for this. He states that he is [...] EMELI CHI In 3 days [address] [place] [address] [phone] Business (1) Additional Instructions: Patient Education Epilepsy [...] Diagnostic Results No qualifying data available. Normal [facility] Comment on above: Result Comment: [...] these instructions at home: Medicines ? Take hnlb-ady-vgwfcys and prescription medicines only as told by [...] check with your local DMV (department of [employer]) to find out about local driving [...] care provider. This is important. Contact a [facility] (more content not included)... Normal [facility] ED Patient Summaryon 023 ED Patient Summary [address] [address] Patient Discharge Instructions Person Information Name: COREY ALONSO III Age: 27 Years Arrival Date: 09/30/2022 20:00:11 Discharge Diagnosis: Seizure Primary Care Physician: EMELI CHI CNP Provider Information Primary Provider: Junior Raygoza DO [employer] M[employer]:None The exam and treatment you received in the Emergency Department were for an urgent problem and are not intended as complete care. It is important that you follow up with a doctor, nurse practitioner, or physician?s employment legal assistant for ongoing care. If your symptoms [...] Follow-up Instructions: With: Address: When: EMELI CHI [address] [place], [place] [id number] [phone] Business (1) In 3 days In the event that this physician does not participate in your insurance network, please consult with your insurance company to find a nearby participating provider. Patient Education Materials: Epilepsy A MESSAGE TO ALL PATIENTS REGARDING OPIOIDS PRESCRIPTION OPIOIDS: WHAT YOU NEED TO KNOW Prescription opioids can be used to help relieve pmcwmkle-dk-sofzqj pain and are often prescribed following a [...] be struggling with addiction, tell your health tree care foreman and ask for guidance or call SAMHSA?S National Helpline at 9-768-698-HELP. v Source: [place] Department of Health and Human Services/[place] (more content not included)... Normal [facility] Monitor Recordon 09-30-2022 Monitor Record [id number] Normal [facility] Pre-Arrival Noteon Pre-Arrival Note Pre-Arrival Summary Name: mayo Current Date: 09/30/2022 20:10:38 EST Gender: Male Date of : Age: 27 Pre-Arrival Type: EMS ETA: 09/30/2022 20:20:00 EST Primary Care Physician: Presenting Problem: seizure Pre-Arrival User: Referring Source: Location: Completion Date/Time: 09/30/2022 19:50:00 [facility] Emergency Department Pre-Hospital Report Form Vital Signs: BP 144/96, HR 98, SPO2 99%, GCS 15 Pre-Hospital Report: Pt coming from [facility], had a seizure, 5th one today, known to have some back in July, alert and alittle confused Treatment in Route: Response to Treatment: Misc. Issues: Normal [facility] GROUP A STREP CULTUREon 08-30 S. pyogenes Ag Ql (Unsp spec) Culture Observations: NEGATIVE FOR GROUP A STREPTOCOCCUS. Normal [facility] Comment on above: Performed By: #### G RASTCX, SSCRN #### [facility] [address] [address] [address] Bob Nelson STREPT SCREENon 09-23-2022 STREP SCREEN A Negative Normal NEGATIVE [facility] Comment on above: Performed By: #### G RASTCX, SSCRN #### [facility] [id number] Bob Nelson Basic Metab w/rfx MGon 08-07 Anion gap [Moles/Vol] 11 mmol/L Normal 9-17 [facility] Comment on above: Performed By: #### B MPX #### [facility] [address] [place] [id number] Fine Patcher: Carter Collins MD Calcium [Mass/Vol] 10.0 mg/dL Normal 8.6-10.4 [facility] Comment on above: Performed By: #### B MPX #### [address] [address] Fine Patcher: Carter Collins MD Chloride [Moles/Vol] 102 mmol/L Normal 98-107 [facility] Comment on above: Performed By: #### B MPX #### [address] [address] Fine Patcher: Carter Collins MD CO2 [Moles/Vol] 26 mmol/L Normal 20-31 [facility] Comment on above: Performed By: #### B MPX #### [address] [address] Fine Patcher: Carter Collins MD Creatinine [Mass/Vol] 0.94 mg/dL Normal 0.70-1.20 [facility] Comment on above: Performed By: #### B MPX #### [address] [address] Fine Patcher: Carter Collins MD GFR/1.73 sq M.predicted among non-blacks MDRD (S/P/Bld) [Vol rate/Area] mL/min/{1.73_m2} Normal >60 [facility] Comment on above: Result Comment: [...] secretion. Performed By: #### B MPX #### [address] [address] Fine Patcher: Carter Collins MD Glucose [Mass/Vol] 97 mg/dL Normal 70-99 [facility] Comment on above: Performed By: #### B MPX #### [facility] [place] [address] Fine Patcher: Carter Collins MD Potassium [Moles/Vol] 4.0 mmol/L Normal 3.7-5.3 [facility] Comment on above: Performed By: #### B MPX #### [facility] [address] [place] [id number] Fine Patcher: Carter Collins MD Sodium [Moles/Vol] 139 mmol/L Normal 135-144 [facility] Comment on above: Performed By: #### B MPX #### [facility] [address] [place] [address] Fine Patcher: Carter Collins MD Urea nitrogen [Mass/Vol] 12 mg/dL Normal 6-20 [facility] Comment on above: Performed By: #### B MPX #### [facility] [address] [place] [address] Fine Patcher: Carter Collins MD Basic Metabolic Panel w/ Ref rehana to MGon 08-07-2022 Anion gap [Moles/Vol] 11 mmol/L 9 - 17 mmol/L [facility] Calcium [Mass/Vol] 10.0 mg/dL 8.6 - 10. 4 mg/dL [facility] Chloride [Moles/Vol] 102 mmol/L 98 - 10 7 mmol/L [facility] CO2 [Moles/Vol] 26 mmol/L 20 - 31 mmol/L [facility] Creatinine [Mass/Vol] 0.94 mg/dL 0.70 - 1.20 mg/dL [facility] GFR/1.73 sq M.predicted MDRD (S/P/Bld) [Vol rate/Area] - PINF [facility] Comment on above: Effective Apr 30, 2022 [...] [Mass/Vol] 97 mg/dL 70 - 99 mg/dL [facility] Potassium [Moles/Vol] 4.0 mmol/L 3.7 - 5.3 mmol/L [facility] Sodium [Moles/Vol] 139 mmol/L 135 - 144 mmol/L [facility] Urea nitrogen (BldV) [Mass/Vol] 12 mg/dL 6 - 20 mg/dL [facility] CBC with Auto Differentialon 08-07-2022 Absolute Eos # 0.08 [place] [facility] Absolute Immature Granulocyte 0.04 [facility] Absolute Lymph # 2.27 [facility] Absolute Anson # 0.38 [facility] Basophils (Bld) [#/Vol] 0.03 10*3/uL [facility] Basophils/100 WBC (Bld) 0 % 0 - 2 % B [facility] Eosinophils/100 WBC (Bld) 1 % 1 - 4 % [facility] Hematocrit (Bld) [Volume fraction] 45.6 % 40.7 - 50.3 % [facility] Hemoglobin (Bld) [Mass/Vol] 15.6 g/dL 13.0 - 17.0 g/dL [facility] Immature granulocytes/100 WBC (Bld) 1 % High 0 [facility] Interpretation and review of laboratory results Abnormal [facility] Lymphocytes/100 WBC (Bld) 31 % 24 - 43 % [facility] MCH (RBC) [Entitic mass] 28.5 pg 25. 2 - 33.5 pg [facility] MCHC (RBC) [Mass/Vol] 34.2 g/dL 28.4 - 34.8 g/dL [facility] MCV (RBC) [Entitic vol] 83.4 fL 82.6 - 102.9 fL [facility] Monocytes/100 WBC (Bld) 5 % 3 - 12 % B ON [facility] NRBC Automated 0.0 0.0 per 100 WBC [facility] Platelet distribution width (Bld) [Ratio] 12.6 % 11.8 - 14.4 % [facility] Platelet mean volume (Bld) [Entitic vol] 9.8 fL 8.1 - 13.5 fL [facility] Platelets (Bld) [#/Vol] 215 10*3/uL [facility] RBC (Bld) [#/Vol] 5.47 10*6/uL 4.21 - 5.7 7 m/uL [facility] Segmented neutrophils/100 WBC (Bld) 62 % 36 - 65 % [facility] Segs Absolute 4.58 [facility] WBC (Bld) [#/Vol] 7.4 10*3/uL [facility] CBC with Diffon 08-07-2022 Abs. Basophil 0.03 k/uL Normal 0.00-0.20 [facility] Comment on above: Performed By: #### C DP #### [facility] [employer] [address] [place] [address] Fine Patcher: Carter Collins MD Abs.Imm.Granulocyte 0.04 k/uL Normal 0.00-0.30 [facility] Comment on above: Performed By: #### C DP #### [facility] [employer] [address] [place], [place] [phone] Fine Patcher: Carter Collins MD Abs.Neutrophil (Seg) 4.58 k/uL Normal 1.50-8.10 [facility] Comment on above: Performed By: #### C DP #### [facility] [employer] [address] [place], [place] [phone] Fine Patcher: Carter Collins MD Basophils/100 WBC (Bld) 0 % Normal 0-2 [facility] Comment on above: Performed By: #### C DP #### [address] [address] Fine Patcher: Carter Collins MD Eosinophils (Bld) [#/Vol] 0.08 10*3/uL Normal 0.00-0.4 4 [facility] Comment on above: Performed By: #### C DP #### [address] [address] Fine Patcher: Carter Collins MD Eosinophils/100 WBC (Bld) 1 % Normal 1-4 [facility] Comment on above: Performed By: #### C DP #### [address] [address] Fine Patcher: Carter Collins MD Erythrocyte distribution width (RBC) [Ratio] 12.6 % Normal 11.8-14.4 [facility] Comment on above: Performed By: #### C DP #### [address] [address] Fine Patcher: Carter Collins MD Hematocrit (Bld) [Volume fraction] 45.6 % Normal 40.7-50.3 [facility] Comment on above: Performed By: #### C DP #### [address] [address] Fine Patcher: Carter Collins MD Hemoglobin (Bld) [Mass/Vol] 15.6 g/dL Normal 13.0-17.0 [facility] Comment on above: Performed By: #### C DP #### [address] [address] Fine Patcher: Carter Collins MD Immature granulocytes/100 WBC (Bld) 1 % High 0 [facility] Comment on above: Performed By: #### C DP #### [address] [address] Fine Patcher: Carter Collins MD Lymphocytes (Bld) [#/Vol] 2.27 10*3/uL Normal 1.10-3.7 0 [facility] Comment on above: Performed By: #### C DP #### [address] [address] Fine Patcher: Carter Collins MD Lymphocytes/100 WBC (Bld) 31 % Normal 24-43 [facility] Comment on above: Performed By: #### C DP #### [address] [address] Fine Patcher: Carter Collins MD MCH (RBC) [Entitic mass] 28.5 pg Normal 25.2-33.5 [facility] Comment on above: Performed By: #### C DP #### [address] [address] Fine Patcher: Carter Collins MD MCHC (RBC) [Mass/Vol] 34.2 g/dL Normal 28.4-34.8 [facility] Comment on above: Performed By: #### C DP #### [address] [address] Fine Patcher: Carter Collins MD MCV (RBC) [Entitic vol] 83.4 fL Normal 82.6-102.9 [facility] Comment on above: Performed By: #### C DP #### [address] [address] Fine Patcher: Carter Collins MD Monocytes (Bld) [#/Vol] 0.38 10*3/uL Normal 0.10-1.20 [facility] Comment on above: Performed By: #### C DP #### [address] [address] Fine Patcher: Carter Collins MD Monocytes/100 WBC (Bld) 5 % Normal 3-12 M [facility] Comment on above: Performed By: #### C DP #### [address] [address] Fine Patcher: Carter Collins MD Neutrophil (Seg) 62 % Normal 36-65 [facility] Comment on above: Performed By: #### C DP #### [address] [address] Fine Patcher: Carter Collins MD NRBC Automated 0.0 per 100 WBC Normal 0.0 [facility] Comment on above: Performed By: #### C DP #### [address] [address] Fine Patcher: Carter Collins MD Platelet mean volume (Bld) [Entitic vol] 9.8 fL Normal 8.1-13.5 [facility] Comment on above: Performed By: #### C DP #### [address] [address] Fine Patcher: Carter Collins MD Platelets (Bld) [#/Vol] 215 10*3/uL Normal 138-453 [facility] Comment on above: Performed By: #### C DP #### [address] [address] Fine Patcher: Carter Collins MD RBC (Bld) [#/Vol] 5.47 10*6/uL Normal 4.21-5.77 [facility] Comment on above: Performed By: #### C DP #### [address] [address] Fine Patcher: Carter Collins MD WBC (Bld) [#/Vol] 7.4 10*3/uL Normal 3.5-11.3 [facility] Comment on above: Performed By: #### C DP #### [address] [address] Fine Patcher: Carter Collins MD EEG video monitoringon 08-07 Samira Rubio MD 08/07/2022 6:14 PM LONG-TERM EEG-VIDEO MONITORING CLINICAL NEUROPHYSIOLOGY LABORATORY DEPARTMENT OF NEUROLOGY [facility] Patient: Corey Alonso III Age: 26 y.o. Referring Physician: Hans Granaod,Gerardo History: The patient is a 26 y.o. [...] revealed no abnormalities. SAMIRA RUBIO MD Diplomate, [place] [employer]iat[employer] and Neurology Diplomate, [place] Board of Clinical Neurophysiology Diplomate, [place] Board of Epilepsy Please note this is a preliminary report and updated daily. The final report will have a summary of behavior and electrographic findings with clinical correlation. [employer] Phone: EEG video monitoringOrdered By: Samira Rubio on 08-07-2022 [employer] Phone: LAMOTRIGINEon 06-19-2022 Lamotrigine, Serum 4.2 ug/mL Normal 2.0-20.0 [facility] Comment on above: Result Comment: Dete ction Limit = 1.0 Performed By: #### C BC #### [facility] [address] [place] [address] Dr. Bob Nelson CBC AUTO DIFFon 06-11-2022 BASO # 0.0 103/ul Normal 0.0-0.1 [facility] Comment on above: Performed By: #### C BC #### [facility] [address] [place] [address] Dr. Bob Nelson Basophils/100 WBC (Bld) 0.2 % Normal 0.2-2.0 [facility] Comment on above: Performed By: #### C BC #### [facility] [address] [place] [address] Dr. Bob Nelson EO # 0.0 103/ul Normal 0.0-0.7 [facility] Comment on above: Performed By: #### C BC #### [facility] [address] [place] [address] Dr. Bob Nelson Eosinophils/100 WBC (Bld) 0.0 % Critically low 0.9-7. 0 [facility] Comment on above: Performed By: #### C BC #### [facility] [address] [place] [address] Dr. Bob Nelson Erythrocyte distribution width (RBC) [Ratio] 13.0 % Normal 11.0-15.0 [facility] Comment on above: Performed By: #### C BC #### [facility] [address] [place] [address] Dr. Bob Nelson Hematocrit (Bld) [Volume fraction] 40.4 % Critically low 42.0-54.0 [facility] Comment on above: Performed By: #### C BC #### [facility] [address] [place] [address] Dr. Bob Nelson Hemoglobin (Bld) [Mass/Vol] 14.3 g/dL Normal 14.0-18.0 [facility] Comment on above: Performed By: #### C BC #### [facility] [address] [place] [address] Dr. Bob Nelson IG # 0.03 10e3/ul Normal 0.00-0.03 [facility] Comment on above: Performed By: #### C BC #### [facility] [address] [place] [address] Dr. Bob Nelson IG % 0.3 % Normal 0.0-0.5 [facility] Comment on above: Performed By: #### C BC #### [facility] [address] [address] [address] Bob Nelson LYMPH # 0.7 103/ul Critically low 1.2-3.8 [facility] Comment on above: Performed By: #### C BC #### [facility] [address] [place] [address] Dr. Bob Nelson Lymphocytes/100 WBC (Bld) 7.2 % Critically low 20.5-[address] [facility] Comment on above: Performed By: #### C BC #### [facility] [address] [place] [address] Dr. Bob Nelson MANUAL DIFF REQ NO Normal [facility] Comment on above: Performed By: #### C BC #### [facility] [address] [place] [address] Dr. Bob Nelson MCH (RBC) [Entitic mass] 28.7 pg Normal 25.9-34.0 [facility] Comment on above: Performed By: #### C BC #### [facility] [address] [place] [address] Dr. Bob Nelson MCHC (RBC) [Mass/Vol] 35.4 g/dL Critically high 29.9-35.2 [facility] Comment on above: Performed By: #### C BC #### [facility] [address] [place] [address] Dr. Bob Nelson MCV (RBC) [Entitic vol] 81.1 fL Normal 80.0-94.0 [facility] Comment on above: Performed By: #### C BC #### [facility] [address] [place] [address] Dr. Bob Nelson MONO # 0.6 103/ul Normal 0.3-0.8 [facility] Comment on above: Performed By: #### C BC #### [facility] [address] [place] [address] Dr. Bob Nelson Monocytes/100 WBC (Bld) 6.0 % Normal 1.7-12.0 [facility] Comment on above: Performed By: #### C BC #### [facility] [address] [place] [address] Dr. Bob Nelson NEUT # 8.8 103/ul Critically high 1.4-6.[address] [facility] Comment on above: Performed By: #### C BC #### [facility] [address] [place] [address] Dr. Bob Nelson Neutrophils/100 WBC (Bld) 86.3 % Critically high 43.0- 75.0 [facility] Comment on above: Performed By: #### C BC #### [facility] [address] [place] [address] Dr. Bob Nelson Platelet mean volume (Bld) [Entitic vol] 9.1 fL Critically low 9.5-13.5 [facility] Comment on above: Performed By: #### C BC #### [facility] [address] [place] [address] Dr. Bob Nelson PLT 177 103/ul Normal 150-450 [facility] Comment on above: Performed By: #### C BC #### [facility] [address] [place] [address] Dr. Bob Nelson RBC 4.98 106/ul Normal 4.70-6.10 [facility] Comment on above: Performed By: #### C BC #### [facility] [address] [place] [address] Dr. Bob Nelson WBC 10.2 103/ul Normal 4.0-11.0 [facility] Comment on above: Performed By: #### C BC #### [facility] [address] [place] [address] Dr. Bob Nelson CBC W MANUAL DIFFon 06-11-20 22 ATYPICAL LYMPH # Normal [facility] Comment on above: Performed By: #### C BC #### [facility] [address] [place] [address] Dr. Bob Nelson ATYPICAL LYMPH % Normal [facility] Comment on above: Performed By: #### C BC #### [facility] [address] [place] [address] Dr. Bob Nelson BAND # 0.0 103/ul Normal 0.0-0.3 [facility] Comment on above: Performed By: #### C BC #### [facility] [address] [place] [address] Dr. Bob Nelson BAND % 0 % Normal 0-5 [facility] Comment on above: Performed By: #### C BC #### [facility] [address] [place] [address] Dr. Bob Nelson BASOM # 0.00 103/ul Normal 0.00-0.10 [facility] Comment on above: Performed By: #### C BC #### [facility] [address] [place] [address] Dr. Bob Nelson BASOM % 0.0 % Critically low 0.2-2.0 [facility] Comment on above: Performed By: #### C BC #### [facility] [address] [place] [address] Dr. Bob Nelson BLAST # Normal [facility] Comment on above: Performed By: #### C BC #### [facility] [address] [place] [address] Dr. Bob Nelson BLAST % Normal [facility] Comment on above: Performed By: #### C BC #### [facility] [address] [place] [address] Dr. Bob Nelson CORRECTED WBC Normal 4.0-11.0 [facility] Comment on above: Performed By: #### C BC #### [facility] [address] [place] [address] Dr. Bob Nelson EOS # 0.00 103/ul Normal 0.00-0.70 [facility] Comment on above: Performed By: #### C BC #### [facility] [address] [place] [address] Dr. Bob Nelson EOS% 0.0 % Critically low 0.9-7.0 [facility] Comment on above: Performed By: #### C BC #### [facility] [address] [address] [address] Bob Nelson HCT 41.3 % Critically low 42.0-54.0 [facility] Comment on above: Performed By: #### C BC #### [facility] [address] [address] [address] Bob Nelson HGB 14.4 g/dl Normal 14.0-18.0 [facility] Comment on above: Performed By: #### C BC #### [facility] [address] [place] [address] Dr. Bob Nelson LYMPHM # 0.85 103/ul Critically low 1.20-3.[address] [facility] Comment on above: Performed By: #### C BC #### [facility] [address] [place] [address] Dr. Bob Nelson LYMPHM% 8.0 % Critically low 20.5-60.0 [facility] Comment on above: Performed By: #### C BC #### [facility] [address] [place] [address] Dr. Bob Nelson MCH 28.6 pg Normal 25.9-34.0 [facility] Comment on above: Performed By: #### C BC #### [facility] [address] [place] [address] Dr. Bob Nelson MCHC 34.9 g/dl Normal 29.9-35.2 [facility] Comment on above: Performed By: #### C BC #### [facility] [address] [place] [address] Dr. Bob Nelson MCV 82.1 fL Normal 80.0-94.0 [facility] Comment on above: Performed By: #### C BC #### [facility] [address] [place] [address] Dr. Bob Nelson METAMYELOCYTE # Normal [facility] Comment on above: Performed By: #### C BC #### [facility] [address] [place] [address] Dr. Bob Nelson METAMYELOCYTE % Normal [facility] Comment on above: Performed By: #### C BC #### [facility] [address] [place] [address] Dr. Bob Nelson MONOM# 0.64 103/ul Normal 0.30-0.80 [facility] Comment on above: Performed By: #### C BC #### [facility] [address] [place] [address] Dr. Bob Nelson MONOM% 6.0 % Normal 1.7-12.0 [facility] Comment on above: Performed By: #### C BC #### [facility] [address] [place] [address] Dr. Bob Nelson MPV 9.4 fL Critically low 9.5-13.5 [facility] Comment on above: Performed By: #### C BC #### [facility] [address] [place] [address] Dr. Bob Nelson MYELOCYTE # Normal [facility] Comment on above: Performed By: #### C BC #### [facility] [address] [place] [address] Dr. Bob Nelson MYELOCYTE % Normal [facility] Comment on above: Performed By: #### C BC #### [facility] [address] [place] [address] Dr. Bob Nelson NRBC Normal [facility] Comment on above: Performed By: #### C BC #### [facility] [address] [place] [address] Dr. Bob Nelson PLT 182 103/ul Normal 150-450 [facility] Comment on above: Performed By: #### C BC #### [facility] [address] [place] [address] Dr. Bob Nelson RBC 5.03 106/ul Normal 4.70-6.10 [facility] Comment on above: Performed By: #### C BC #### [facility] [address] [place] [address] Dr. Bob Nelson RDW 12.9 % Normal 11.0-15.0 [facility] Comment on above: Performed By: #### C BC #### [facility] [address] [place] [address] Dr. Bob Nelson SEG # 9.12 103/ul Critically high 1.40-6.50 [facility] Comment on above: Performed By: #### C BC #### [facility] [address] [place] [address] Dr. Bob Nelson SEG % 86.0 % Critically high 43.0-75.[address] [facility] Comment on above: Performed By: #### C BC #### [facility] [address] [place] [address] Dr. Bob Nelson WBC 10.6 103/ul Normal 4.0-11.0 [facility] Comment on above: Performed By: #### C BC #### [facility] [address] [place] [address] Dr. Bob Nelson ER URINE PROFILEon 2 Bilirubin Ql (U) Negative Normal NEGATIVE [facility] Comment on above: Performed By: #### B MP #### [facility] [address] [place] [address] Dr. Bob Nelson Clarity (U) CLEAR Normal CLEAR [facility] Comment on above: Performed By: #### B MP #### [facility] [address] [place] [address] Dr. Bob Nelson Color (U) DK. YELLOW Normal YELLOW [facility] Comment on above: Performed By: #### B MP #### [facility] [address] [place] [address] Dr. Bob VANEGAS A micrscopic examination will be performed if indicated. Normal [facility] Comment on above: Performed By: #### B MP #### [facility] [address] [place] [address] Dr. Bob Nelson Glucose Ql (U) Negative Normal NEGATIVE [facility] Comment on above: Performed By: #### B MP #### [facility] [address] [place] [address] Dr. Bob Nelson Hemoglobin Ql (U) Negative Normal NEGATIVE [facility] Comment on above: Performed By: #### B MP #### [facility] [address] [place] [address] Dr. Bob Nelson Ketones Ql (U) Negative Normal NEGATIVE [facility] Comment on above: Performed By: #### B MP #### [facility] [address] [place] [address] Dr. Bob Nelson LEUKOCYTES Negative Normal NEGATIVE [facility] Comment on above: Performed By: #### B MP #### [facility] [address] [place] [address] Dr. Bob Nelson Nitrite Ql (U) Negative Normal NEGATIVE [facility] Comment on above: Performed By: #### B MP #### [facility] [address] [place] [address] Dr. Bob Nelson pH (U) 6.5 [pH] Normal 5-9 [facility] Comment on above: Performed By: #### B MP #### [facility] [address] [place] [address] Dr. Bob Nelson Protein (U) [Mass/Vol] 30 mg/dL Abnormal NEGAT TOMMY/ TRACE [facility] Comment on above: Performed By: #### B MP #### [facility] [address] [place] [address] Dr. Bob Nelson SPEC GRAVITY 1.025 Normal 1.005-<=1.[address] [facility] Comment on above: Performed By: #### B MP #### [facility] [address] [place] [address] Dr. Bob Nelson UR MICRO IND INDICATED Normal [facility] Comment on above: Performed By: #### B MP #### [facility] [address] [place] [address] Dr. Bob Nelson Urobilinogen Qn (U) 0.2 {Lance'U}/dL Normal 0.2 - 1. 0 [facility] Comment on above: Performed By: #### B MP #### [facility] [address] [place] [address] Dr. Bob Nelson PROF CHEM 8 (BAS METB)on Anion gap [Moles/Vol] 7.2 mmol/L Normal [facility] Comment on above: Performed By: #### B MP #### [facility] [address] [address] [address] Bob Nelson Calcium [Mass/Vol] 9.0 mg/dL Normal 8.5-10.1 [facility] Comment on above: Performed By: #### B MP #### [facility] [address] [address] [address] Bob Nelson Chloride [Moles/Vol] 98 mmol/L Normal 98-107 [facility] Comment on above: Performed By: #### B MP #### [facility] [address] [place] [address] Dr. Bob Nelson CO2 [Moles/Vol] 30.9 mmol/L Normal 21.0-32.0 [facility] Comment on above: Performed By: #### B MP #### [facility] [address] [place] [address] Dr. Bob Nelson Creatinine [Mass/Vol] 0.96 mg/dL Normal 0.70-1.30 [facility] Comment on above: Performed By: #### B MP #### [facility] [address] [place] [address] Dr. Bob Nelson EGFR-AF CYMRO >60 Normal >=60 [facility] Comment on above: Performed By: #### B MP #### [facility] [address] [place] [address] Dr. Bob Nelson EGFR-NON AF CYMRO >60 Normal >=60 [facility] Comment on above: Performed By: #### B MP #### [facility] [address] [address] [address] Bob Nelson Glucose [Mass/Vol] 132 mg/dL Critically high 74-106 [facility] Comment on above: Performed By: #### B MP #### [facility] [address] [place] [address] Dr. Bob Nelson Potassium [Moles/Vol] 4.1 mmol/L Normal 3.5-5.1 [facility] Comment on above: Performed By: #### B MP #### [facility] [address] [address] [address] Bob Nelson Sodium [Moles/Vol] 132 mmol/L Critically low 136-145 Th e [facility] Comment on above: Performed By: #### B MP #### [facility] [address] [place] [address] Dr. Bob Nelson Urea nitrogen [Mass/Vol] 13.0 mg/dL Normal 7.0-18.0 [facility] Comment on above: Performed By: #### B MP #### [facility] [address] [place] [address] Dr. Bob Nelson Urea nitrogen/Creatinine [Mass ratio] 13.5 mg/mg Normal [facility] Comment on above: Performed By: #### B MP #### [facility] [address] [place] [address] Dr. Bob Nelson URINE MICROSCOPIC ONLYon BACTERIA NONE SEEN Normal NONE SEEN [facility] Comment on above: Performed By: #### B MP #### [facility] [address] [place] [address] Dr. Bob Nelson Bacteria identified Cx Nom (U) NOT INDICATED Normal [facility] Comment on above: Performed By: #### B MP #### [facility] [address] [place] [address] Dr. Bob Nelson CAST SEEN Abnormal NONE SEEN [facility] Comment on above: Performed By: #### B MP #### [facility] [address] [place] [address] Dr. Bob Nelson Crystals LM Nom (Urine sed) NONE SEEN Normal NONE SEEN [facility] Comment on above: Performed By: #### B MP #### [facility] [address] [place] [address] Dr. Bob Nelson Epithelial cells LM Ql (Urine sed) NONE SEEN Normal NONE SEEN /RARE [facility] Comment on above: Performed By: #### B MP #### [facility] [address] [place] [address] Dr. Bob Nelson MUCOUS NONE SEEN Normal NONE SEEN [facility] Comment on above: Performed By: #### B MP #### [facility] [address] [place] [address] Dr. Bob Nelson RBC NONE SEEN Abnormal 0-2 [facility] Comment on above: Performed By: #### B MP #### [facility] [address] [place] [address] Dr. Bob Nelson WBC NONE SEEN Normal NONE SEEN [facility] Comment on above: Performed By: #### B MP #### [facility] [address] [place] [address] Dr. Bob Nelson XR CHEST 1 Von [...] by: TRINITY GARY Date: 2022-06-11 09:[address] [facility] LAMOTRIGINEon 05-22-2022 Lamotrigine, Serum 5.5 ug/mL Normal 2.0-20.0 [facility] Comment on above: Result Comment: Dete ction Limit = 1.0 Performed By: #### L AMOT #### [facility] [address] [place] [address] Dr. Bob Nelson CBC AUTO DIFFon 04-24-2022 BASO # 0.0 103/ul Normal 0.0-0.1 [facility] Comment on above: Performed By: #### C BC #### [facility] [address] [place] [address] Dr. Bob Nelson Basophils/100 WBC (Bld) 0.5 % Normal 0.2-2.0 [facility] Comment on above: Performed By: #### C BC #### [facility] [address] [place] [address] Dr. Bob Nelson EO # 0.1 103/ul Normal 0.0-0.7 [facility] Comment on above: Performed By: #### C BC #### [facility] [address] [place] [address] Dr. Bob Nelson Eosinophils/100 WBC (Bld) 1.8 % Normal 0.9-7.0 [facility] Comment on above: Performed By: #### C BC #### [facility] [address] [place] [address] Dr. Bob Nelson Erythrocyte distribution width (RBC) [Ratio] 12.6 % Normal 11.0-15.0 [facility] Comment on above: Performed By: #### C BC #### [facility] [address] [place] [address] Dr. Bob Nelson Hematocrit (Bld) [Volume fraction] 48.4 % Normal 42.0-54.0 [facility] Comment on above: Performed By: #### C BC #### [facility] [address] [place] [address] Dr. Bob Nelson Hemoglobin (Bld) [Mass/Vol] 17.2 g/dL Normal 14.0-18.0 [facility] Comment on above: Performed By: #### C BC #### [facility] [address] [place] [address] Dr. Bob Nelson IG # 0.02 10e3/ul Normal 0.00-0.03 [facility] Comment on above: Performed By: #### C BC #### [facility] [address] [place] [address] Dr. Bob Nelson IG % 0.3 % Normal 0.0-0.5 [facility] Comment on above: Performed By: #### C BC #### [facility] [address] [place] [address] Dr. Bob Nelson LYMPH # 2.6 103/ul Normal 1.2-3.8 [facility] Comment on above: Performed By: #### C BC #### [facility] [address] [place] [address] Dr. Bob Nelson Lymphocytes/100 WBC (Bld) 39.4 % Normal 20.5-60.0 [facility] Comment on above: Performed By: #### C BC #### [facility] [address] [place] [address] Dr. Bob Nelson MANUAL DIFF REQ NO Normal [facility] Comment on above: Performed By: #### C BC #### [facility] [address] [place] [address] Dr. Bob Nelson MCH (RBC) [Entitic mass] 29.0 pg Normal 25.9-34.0 [facility] Comment on above: Performed By: #### C BC #### [facility] [address] [place] [address] Dr. Bob Nelson MCHC (RBC) [Mass/Vol] 35.5 g/dL Critically high 29.9-35.2 [facility] [facility] Comment on above: Performed By: #### C BC #### [facility] [address] [place] [address] Dr. Bob Nelson MCV (RBC) [Entitic vol] 81.6 fL Normal 80.0-94.0 [facility] Comment on above: Performed By: #### C BC #### [facility] [address] [place] [address] Dr. Bob Nelson MONO # 0.5 103/ul Normal 0.3-0.8 [facility] Comment on above: Performed By: #### C BC #### [facility] [address] [place] [address] Dr. Bob Nelson Monocytes/100 WBC (Bld) 8.2 % Normal 1.7-12.0 [facility] Comment on above: Performed By: #### C BC #### [facility] [address] [place] [address] Dr. Bob Nelson NEUT # 3.3 103/ul Normal 1.4-6.5 [facility] Comment on above: Performed By: #### C BC #### [facility] [address] [place] [address] Dr. Bob Nelson Neutrophils/100 WBC (Bld) 49.8 % Normal 43.0-75.0 [facility] Comment on above: Performed By: #### C BC #### [facility] [address] [place] [address] Dr. Bob Nelson Platelet mean volume (Bld) [Entitic vol] 9.5 fL Normal 9.5-13.5 [facility] Comment on above: Performed By: #### C BC #### [facility] [address] [place] [address] Dr. Bob Nelson PLT 225 103/ul Normal 150-450 [facility] Comment on above: Performed By: #### C BC #### [facility] [address] [place] [address] Dr. Bob Nelson RBC 5.93 106/ul Normal 4.70-6.10 [facility] Comment on above: Performed By: #### C BC #### [facility] [address] [place] [address] Dr. Bob Nelson WBC 6.6 103/ul Normal 4.0-11.0 [facility] Comment on above: Performed By: #### C BC #### [facility] [address] [place] [address] Dr. Bob Nelson DRUG SCREEN RAPID (URINE)on 04-24-2022 AMP Negative Normal NEGATIVE [facility] Comment on above: Performed By: #### B MP #### [facility] [address] [place] [address] Dr. Bob Nelson BAR Negative Normal NEGATIVE [facility] Comment on above: Performed By: #### B MP #### [facility] [address] [place] [address] Dr. Bob Nelson BUP Negative Normal NEGATIVE [facility] Comment on above: Performed By: #### B MP #### [facility] [address] [place] [address] Dr. Bob Nelson BZO Negative Normal NEGATIVE [facility] Comment on above: Performed By: #### B MP #### [facility] [address] [place] [address] Dr. Bob Nelson BETHANIE Negative Normal NEGATIVE [facility] Comment on above: Performed By: #### B MP #### [facility] [address] [place] [address] Dr. Bob Nelson CUT-OFFS SEE BELOW Normal [facility] Comment on above: Result [...] ng/mL Performed By: #### B MP #### [facility] [address] [place] [address] Dr. Bob Nelson DRUG CUT HEADER DRUG CLASS TEST SYSTEM CUT-OFF CONCENTRATIONS ARE FOLLOWS: Normal [facility] Comment on above: Performed By: #### B MP #### [facility] [address] [place] [address] Dr. Bob Nelson mAMP Negative Normal NEGATIVE [facility] Comment on above: Performed By: #### B MP #### [facility] [address] [place] [address] Dr. Bob Nelson MTD Negative Normal NEGATIVE [facility] Comment on above: Performed By: #### B MP #### [facility] [address] [place] [address] Dr. Bob Nelson OPI Negative Normal NEGATIVE [facility] Comment on above: Performed By: #### B MP #### [facility] [address] [place] [address] Dr. Bob Nelson OXY Negative Normal NEGATIVE [facility] Comment on above: Performed By: #### B MP #### [facility] [address] [place] [address] Dr. Bob Nelson PCP Negative Normal NEGATIVE [facility] Comment on above: Performed By: #### B MP #### [facility] [address] [place] [address] Dr. Bob Nelson PPX Negative Normal NEGATIVE [facility] Comment on above: Performed By: #### B MP #### [facility] [address] [place] [address] Dr. Bob Nelson TCA Negative Normal NEGATIVE [facility] Comment on above: Performed By: #### B MP #### [facility] [address] [place] [address] Dr. Bob Nelson THC Negative Normal NEGATIVE [facility] Comment on above: Performed By: #### B MP #### [facility] [address] [place] [address] Dr. Bob Nelson ER URINE PROFILEon 2 Bilirubin Ql (U) Negative Normal NEGATIVE [facility] Comment on above: Performed By: #### C MP #### [facility] [address] [place] [address] Dr. Bob Nelson Clarity (U) CLEAR Normal CLEAR [facility] Comment on above: Performed By: #### C MP #### [facility] [address] [place] [address] Dr. Bob Nelson Color (U) YELLOW Normal YELLOW [facility] Comment on above: Performed By: #### C MP #### [facility] [address] [place] [address] Dr. Bob VANEGAS A micrscopic examination will be performed if indicated. Normal [facility] Comment on above: Performed By: #### C MP #### [facility] [address] [place] [address] Dr. Bob Nelson Glucose Ql (U) Negative Normal NEGATIVE [facility] Comment on above: Performed By: #### C MP #### [facility] [address] [place] [address] Dr. Bob Nelson Hemoglobin Ql (U) Negative Normal NEGATIVE [facility] Comment on above: Performed By: #### C MP #### [facility] [address] [place] [address] Dr. Bob Nelson Ketones Ql (U) Negative Normal NEGATIVE [facility] Comment on above: Performed By: #### C MP #### [facility] [address] [place] [address] Dr. Bob Nelson LEUKOCYTES Negative Normal NEGATIVE [facility] Comment on above: Performed By: #### C MP #### [facility] [address] [place] [address] Dr. Bob Nelson Nitrite Ql (U) Negative Normal NEGATIVE [facility] Comment on above: Performed By: #### C MP #### [facility] [address] [place] [address] Dr. Bob Nelson pH (U) 5.5 [pH] Normal 5-9 [facility] Comment on above: Performed By: #### C MP #### [facility] [address] [place] [address] Dr. Bob Nelson Protein (U) [Mass/Vol] 100 mg/dL Abnormal NEGAT TOMMY/ TRACE [facility] Comment on above: Performed By: #### C MP #### [facility] [address] [place] [address] Dr. Bob Nelson SPEC GRAVITY >=1.030 Abnormal 1.005-<=1.[address] [place] [address] Comment on above: Performed By: #### C MP #### [facility] [address] [place] [address] Dr. Bob Nelson UR MICRO IND INDICATED Normal [facility] Comment on above: Performed By: #### C MP #### [facility] [address] [place] [address] Dr. Bob Nelson Urobilinogen Qn (U) 0.2 {Lance'U}/dL Normal 0.2 - 1. 0 [facility] Comment on above: Performed By: #### C MP #### [facility] [address] [place] [address] Dr. Bob Nelson PROF 14(COMP METB)on 022 Albumin [Mass/Vol] 4.3 g/dL Normal 3.4-5.0 [facility] Comment on above: Performed By: #### C MP #### [facility] [address] [place] [address] Dr. Bob Nelson Albumin/Globulin [Mass ratio] 1.2 {ratio} Normal [facility] Comment on above: Performed By: #### C MP #### [facility] [address] [place] [address] Dr. Bob Nelson ALP [Catalytic activity/Vol] 104 U/L Normal 46-116 [facility] Comment on above: Performed By: #### C MP #### [facility] [address] [place] [address] Dr. Bob Nelson ALT [Catalytic activity/Vol] 64 U/L Critically high 16-63 [facility] Comment on above: Performed By: #### C MP #### [facility] [address] [place] [address] Dr. Bob Nelson Anion gap [Moles/Vol] 19.9 mmol/L Normal [facility] Comment on above: Performed By: #### C MP #### [facility] [address] [place] [address] Dr. Bob Nelosn AST [Catalytic activity/Vol] 26 U/L Normal 15-37 [facility] Comment on above: Performed By: #### C MP #### [facility] [address] [place] [address] Dr. Bob Nelson Bilirubin [Mass/Vol] 0.3 mg/dL Normal 0.2-1.0 [facility] Comment on above: Performed By: #### C MP #### [facility] [address] [place] [address] Dr. Bob Nelson Calcium [Mass/Vol] 9.4 mg/dL Normal 8.5-10.1 [facility] Comment on above: Performed By: #### C MP #### [facility] [address] [place] [address] Dr. Bob Nelson Chloride [Moles/Vol] 101 mmol/L Normal 98-107 [facility] Comment on above: Performed By: #### C MP #### [facility] [address] [place] [address] Dr. Bob Nelson CO2 [Moles/Vol] 20.8 mmol/L Critically low 21.0-32.0 [facility] Comment on above: Performed By: #### C MP #### [facility] [address] [address] [address] Bob Nelson Creatinine [Mass/Vol] 1.16 mg/dL Normal 0.70-1.30 [facility] Comment on above: Performed By: #### C MP #### [facility] [address] [address] [address] Bob Nelson EGFR-AF CYMRO >60 Normal >=60 [facility] Comment on above: Performed By: #### C MP #### [facility] [address] [address] [address] Bob Nelson EGFR-NON AF CYMRO >60 Normal >=60 [facility] Comment on above: Performed By: #### C MP #### [facility] [address] [address] [address] Bob Nelson Globulin (S) [Mass/Vol] 3.6 g/dL Normal [facility] Comment on above: Performed By: #### C MP #### [facility] [address] [address] [address] Bob Nelson Glucose [Mass/Vol] 152 mg/dL Critically high 74-106 [facility] Comment on above: Performed By: #### C MP #### [facility] [address] [address] [address] Bob Nelson Potassium [Moles/Vol] 3.7 mmol/L Normal 3.5-5.1 [facility] Comment on above: Performed By: #### C MP #### [facility] [address] [address] [address] Bob Nelson Protein [Mass/Vol] 7.9 g/dL Normal 6.4-8.2 [facility] Comment on above: Performed By: #### C MP #### [facility] [address] [address] [address] Bob Nelson Sodium [Moles/Vol] 138 mmol/L Normal 136-145 [facility] Comment on above: Performed By: #### C MP #### [facility] [address] [address] [address] Bob Nelson Urea nitrogen [Mass/Vol] 12.0 mg/dL Normal 7.0-18.0 [facility] Comment on above: Performed By: #### C MP #### [facility] [address] [place] [address] Dr. Bob Nelson Urea nitrogen/Creatinine [Mass ratio] 10.3 mg/mg Normal [facility] Comment on above: Performed By: #### C MP #### [facility] [address] [place] [address] Dr. Bob Nelson TSHon 04-24-2022 TSH 3.982 uIU/mL Critically high 0.358-3.740 [facility] Comment on above: Performed By: #### C MP #### [facility] [address] [place] [address] Dr. Bob Nelson URINE MICROSCOPIC ONLYon BACTERIA NONE SEEN Normal NONE SEEN [facility] Comment on above: Performed By: #### C MP #### [facility] [address] [place] [address] Dr. Bob Nelson Bacteria identified Cx Nom (U) NOT INDICATED Normal [facility] Comment on above: Performed By: #### C MP #### [facility] [address] [place] [address] Dr. Bob Nelson CAST SEEN Abnormal NONE SEEN [facility] Comment on above: Performed By: #### C MP #### [facility] [address] [place] [address] Dr. Bob Nelson Crystals LM Nom (Urine sed) NONE SEEN Normal NONE SEEN [facility] Comment on above: Performed By: #### C MP #### [facility] [address] [place] [address] Dr. Bob Nelson Epithelial cells LM Ql (Urine sed) RARE Normal NONE SEEN /RARE [facility] Comment on above: Performed By: #### C MP #### [facility] [address] [place] [address] Dr. Bob Nelson HYALINE CAST RARE Normal [facility] Comment on above: Performed By: #### C MP #### [facility] [address] [address] [address] Bob Nelson MUCOUS NONE SEEN Normal NONE SEEN [facility] Comment on above: Performed By: #### C MP #### [facility] [address] [address] [address] Bob Nelson RBC NONE SEEN Abnormal 0-2 [facility] Comment on above: Performed By: #### C MP #### [facility] [address] [address] [address] Bob Nelson WBC NONE SEEN Normal NONE SEEN [facility] Comment on above: Performed By: #### C MP #### [facility] [address] [address] [address] Bob Nelson No Panel InformationOrdered By: Derek Burks on 04-12-2022 Semen Analysis Comment . [facility] Comment on above: NO SPERM SEEN CONFIR MED BY SECOND TECH/@KWJ&STEVAN Semen WBC Concentration <1.0 M/mL <0.9 [facility] Sperm % Non-Motile [facility] Comment on above: Test not performed Sperm Motility Total [facility] Comment on above: Test not performed Qualitative semen viscosityO rdered By: Derek Burks on 04-12-2022 Viscosity Ql (Jeanie) Normal Normal [facility] Semen Analysis, Fertilityon 04-12-2022 Immotile Sperm Not performed Normal [facility] Comment on above: Order Comment: Metho d of Collection:: Masturbation Has the patient had a vasectomy?: N Type of Specimen Container:: Sterile Container Abstinence Period:: 48 HRS Kept at body temperature?: Y Any Collection or Transport Problems?: NO Performed By: #### S EMCOMP #### [facility] [address] [place] [address] Non-Progression Sperm Motili Not performed Normal [facility] Comment on above: Order Comment: Metho d of Collection:: Masturbation Has the patient had a vasectomy?: N Type of Specimen Container:: Sterile Container Abstinence Period:: 48 HRS Kept at body temperature?: Y Any Collection or Transport Problems?: NO Performed By: #### S EMCOMP #### [address] Normal Sperm Morphology Not performed Normal >=4.0 [facility] Comment on above: Order Comment: Metho d of Collection:: Masturbation Has the patient had a vasectomy?: N Type of Specimen Container:: Sterile Container Abstinence Period:: 48 HRS Kept at body temperature?: Y Any Collection or Transport Problems?: NO Performed By: #### S EMCOMP #### [address] Rapid Progression Sperm Motili Not performed Normal [facility] Comment on above: Order Comment: Metho d of Collection:: Masturbation Has the patient had a vasectomy?: N Type of Specimen Container:: Sterile Container Abstinence Period:: 48 HRS Kept at body temperature?: Y Any Collection or Transport Problems?: NO Performed By: #### S EMCOMP #### [address] Semen Comment . Normal [facility] Comment on above: Order Comment: Metho d of Collection:: Masturbation Has the patient had a vasectomy?: N Type of Specimen Container:: Sterile Container Abstinence Period:: 48 HRS Kept at body temperature?: Y Any Collection or Transport Problems?: NO Result Comment: NO S PERM SEEN CONFIRMED BY SECOND TECH/@[facility] STEVAN PERFORMED BY: [place] [address] PATHOLOGIST HOSPITALITY SPECIALIST CARLITA SEALS M.D. Performed By: #### S EMCOMP #### [address] Semen Liquefaction Normal Normal <=60 min [facility] Comment on above: Order Comment: Metho d of Collection:: Masturbation Has the patient had a vasectomy?: N Type of Specimen Container:: Sterile Container Abstinence Period:: 48 HRS Kept at body temperature?: Y Any Collection or Transport Problems?: NO Performed By: #### S EMCOMP #### [address] [place] [address] [place] Semen Viscosity Normal Normal Normal [facility] Comment on above: Order Comment: Metho d of Collection:: Masturbation Has the patient had a vasectomy?: N Type of Specimen Container:: Sterile Container Abstinence Period:: 48 HRS Kept at body temperature?: Y Any Collection or Transport Problems?: NO Performed By: #### S EMCOMP #### [facility] [address] Semen Volume 1.0 mL Low >=1.5 [facility] Comment on above: Order Comment: Metho d of Collection:: Masturbation Has the patient had a vasectomy?: N Type of Specimen Container:: Sterile Container Abstinence Period:: 48 HRS Kept at body temperature?: Y Any Collection or Transport Problems?: NO Performed By: #### S EMCOMP #### [address] Sperm Concentration <2.0 Low >=15 [facility] Comment on above: Order Comment: Metho d of Collection:: Masturbation Has the patient had a vasectomy?: N Type of Specimen Container:: Sterile Container Abstinence Period:: 48 HRS Kept at body temperature?: Y Any Collection or Transport Problems?: NO Result Comment: Suboptimal specimen. Unable to perform morphology testing. Performed By: #### S EMCOMP #### [address] Total Motility (ID+CAR SHAKEOUT OPERATOR) Not performed Normal >=40 (ID+CAR SHAKEOUT OPERATOR) [facility] Comment on above: Order Comment: Metho d of Collection:: Masturbation Has the patient had a vasectomy?: N Type of Specimen Container:: Sterile Container Abstinence Period:: 48 HRS Kept at body temperature?: Y Any Collection or Transport Problems?: NO Performed By: #### S EMCOMP #### [facility] [address] [place] [address] [place] WBC Concent, Semen <1.0 Normal <1.0 [facility] Comment on above: Order Comment: Metho d of Collection:: Masturbation Has the patient had a vasectomy?: N Type of Specimen Container:: Sterile Container Abstinence Period:: 48 HRS Kept at body temperature?: Y Any Collection or Transport Problems?: NO Performed By: #### S EMCOMP #### [facility] [address] Semen Analysis, FertilityOrd ered By: Derek Burks on 04-12-2022 Semen Appearance Normal Normal Normal [facility] Comment on above: Order Comment: Metho d of Collection:: Masturbation Has the patient had a vasectomy?: N Type of Specimen Container:: Sterile Container Abstinence Period:: 48 HRS Kept at body temperature?: Y Any Collection or Transport Problems?: NO Performed By: #### S EMCOMP #### [facility] [address] [place] [address] Semen pH 6.0 Low >=7.2 [facility] Comment on above: Order Comment: Metho d of Collection:: Masturbation Has the patient had a vasectomy?: N Type of Specimen Container:: Sterile Container Abstinence Period:: 48 HRS Kept at body temperature?: Y Any Collection or Transport Problems?: NO Performed By: #### S EMCOMP #### [facility] [address] [place] [address] Semen liquefaction time abhinav urementOrdered By: Derek Burks on 04-12-2022 Liquefaction (Jeanie) [Time] Normal <=60 min [facility] Semen volumeOrdered By: Celso Burks on 04-12-2022 Specimen volume (Jeanie) 1.0 mL >1.5 [facility] Sperm countOrdered By: Derek Burks on 04-12-2022 Spermatozoa (Jeanie) [#/Vol] <2.0 M/mL >15 [facility] Comment on above: Suboptimal specimen. Unable to perform morphology testing. Sperm morphologyOrdered By: Derek Burks on 04-12-2022 Spermatozoa Nom (Jeanie) TNP [facility] Comment on above: Test not performed LAMOTRIGINEon 04-09-2022 Lamotrigine, Serum 6.7 ug/mL Normal 2.0-20.0 [facility] Comment on above: Result Comment: Dete ction Limit = 1.0 Performed By: #### C BC #### [facility] [address] [place] [address] Dr. Bob Nelson LAMOTRIGINEon 03-02-2022 Lamotrigine, Serum 2.3 ug/mL Normal 2.0-20.0 [facility] Comment on above: Result Comment: Dete ction Limit = 1.0 Performed By: #### C MP #### [facility] [address] [place] [address] Dr. Bob Nelson OXCARBAZEPINEon 03-01-2022 Oxcarbazepine 5 ug/mL Critically low 10-35 [facility] Comment on above: Result Comment: This test was developed and its performance characteristics determined by [facility]. It has not been cleared or approved by the Food and Drug Administration. Detection Limit = 1 Performed By: #### B MP #### [facility] [address] [place] [address] Dr. Bob Nelson CBC AUTO DIFFon 02-28-2022 BASO # 0.0 103/ul Normal 0.0-0.1 [facility] Comment on above: Performed By: #### C MP #### [facility] [address] [place] [address] Dr. Bob Nelson Basophils/100 WBC (Bld) 0.5 % Normal 0.2-2.0 [facility] Comment on above: Performed By: #### C MP #### [facility] [address] [place] [address] Dr. Bob Nelson EO # 0.1 103/ul Normal 0.0-0.7 [facility] Comment on above: Performed By: #### C MP #### [facility] [address] [place] [address] Dr. Bob Nelson Eosinophils/100 WBC (Bld) 0.9 % Normal 0.9-7.0 [facility] Comment on above: Performed By: #### C MP #### [facility] [address] [place] [address] Dr. Bob Nelson Erythrocyte distribution width (RBC) [Ratio] 12.8 % Normal 11.0-15.0 [facility] Comment on above: Performed By: #### C MP #### [facility] [address] [place] [address] Dr. Bob Nelson Hematocrit (Bld) [Volume fraction] 43.8 % Normal 42.0-54.0 [facility] Comment on above: Performed By: #### C MP #### [facility] [address] [place] [address] Dr. Bob Nelson Hemoglobin (Bld) [Mass/Vol] 14.9 g/dL Normal 14.0-18.0 [facility] Comment on above: Performed By: #### C MP #### [facility] [address] [place] [address] Dr. Bob Nelson IG # 0.02 10e3/ul Normal 0.00-0.03 [facility] Comment on above: Performed By: #### C MP #### [facility] [address] [place] [address] Dr. Bob Nelson IG % 0.3 % Normal 0.0-0.5 [facility] Comment on above: Performed By: #### C MP #### [facility] [address] [place] [address] Dr. Bob Nelson LYMPH # 2.2 103/ul Normal 1.2-3.8 [facility] Comment on above: Performed By: #### C MP #### [facility] [address] [place] [address] Dr. Bob Nelson Lymphocytes/100 WBC (Bld) 34.0 % Normal 20.5-60.0 [facility] [facility] Comment on above: Performed By: #### C MP #### [facility] [address] [place] [address] Dr. Bob Nelson MANUAL DIFF REQ NO Normal [facility] Comment on above: Performed By: #### C MP #### [facility] [address] [place] [address] Dr. Bob Nelson MCH (RBC) [Entitic mass] 28.4 pg Normal 25.9-34.0 [facility] Comment on above: Performed By: #### C MP #### [facility] [address] [address] [address] Bob Nelson MCHC (RBC) [Mass/Vol] 34.0 g/dL Normal 29.9-35.2 [facility] Comment on above: Performed By: #### C MP #### [facility] [address] [place] [address] Dr. Bob Nelson MCV (RBC) [Entitic vol] 83.6 fL Normal 80.0-94.0 [facility] Comment on above: Performed By: #### C MP #### [facility] [address] [place] [address] Dr. Bob Nelson MONO # 0.5 103/ul Normal 0.3-0.8 [facility] Comment on above: Performed By: #### C MP #### [facility] [address] [place] [address] Dr. Bob Nelson Monocytes/100 WBC (Bld) 7.9 % Normal 1.7-12.0 [facility] Comment on above: Performed By: #### C MP #### [facility] [address] [place] [address] Dr. Bob Nelson NEUT # 3.6 103/ul Normal 1.4-6.5 [facility] Comment on above: Performed By: #### C MP #### [facility] [address] [place] [address] Dr. Bob Nelson Neutrophils/100 WBC (Bld) 56.4 % Normal 43.0-75.0 [facility] Comment on above: Performed By: #### C MP #### [facility] [address] [place] [address] Dr. Bob Nelson Platelet mean volume (Bld) [Entitic vol] 9.5 fL Normal 9.5-13.5 [facility] Comment on above: Performed By: #### C MP #### [facility] [address] [place] [address] Dr. Bob Nelson PLT 192 103/ul Normal 150-450 [facility] Comment on above: Performed By: #### C MP #### [facility] [address] [place] [address] Dr. Bob Nelson RBC 5.24 106/ul Normal 4.70-6.10 [facility] Comment on above: Performed By: #### C MP #### [facility] [address] [place] [address] Dr. Bob Nelson WBC 6.4 103/ul Normal 4.0-11.0 [facility] Comment on above: Performed By: #### C MP #### [facility] [address] [place] [address] Dr. Bob Nelson PROF 14(COMP METB)on 022 Albumin [Mass/Vol] 3.9 g/dL Normal 3.4-5.0 [facility] Comment on above: Performed By: #### C MP #### [facility] [address] [place] [address] Dr. Bob Nelson Albumin/Globulin [Mass ratio] 1.3 {ratio} Normal [facility] Comment on above: Performed By: #### C MP #### [facility] [address] [place] [address] Dr. Bob Nelson ALP [Catalytic activity/Vol] 68 U/L Normal 46-116 [facility] Comment on above: Performed By: #### C MP #### [facility] [address] [place] [address] Dr. Bob Nelson ALT [Catalytic activity/Vol] 170 U/L Critically high 16-63 [facility] Comment on above: Performed By: #### C MP #### [facility] [address] [place] [address] Dr. Bob Nelson Anion gap [Moles/Vol] 11.0 mmol/L Normal [facility] Comment on above: Performed By: #### C MP #### [facility] [address] [place] [address] Dr. Bob Nelson AST [Catalytic activity/Vol] 48 U/L Critically high 15-37 [facility] Comment on above: Performed By: #### C MP #### [facility] [address] [address] [address] Bob Nelson Bilirubin [Mass/Vol] 0.6 mg/dL Normal 0.2-1.0 [facility] Comment on above: Performed By: #### C MP #### [facility] [address] [place] [address] Dr. Bob Nelson Calcium [Mass/Vol] 9.1 mg/dL Normal 8.5-10.1 [facility] Comment on above: Performed By: #### C MP #### [facility] [address] [place] [address] Dr. Bob Nelson Chloride [Moles/Vol] 105 mmol/L Normal 98-107 [facility] Comment on above: Performed By: #### C MP #### [facility] [address] [place] [address] Dr. Bob Nelson CO2 [Moles/Vol] 28.9 mmol/L Normal 21.0-32.0 [facility] Comment on above: Performed By: #### C MP #### [facility] [address] [place] [address] Dr. Bob Nelson Creatinine [Mass/Vol] 0.96 mg/dL Normal 0.70-1.30 [facility] Comment on above: Performed By: #### C MP #### [facility] [address] [place] [address] Dr. Bob Nelson EGFR-AF CYMRO >60 Normal >=60 [facility] Comment on above: Performed By: #### C MP #### [facility] [address] [place] [address] Dr. Bob Nelson EGFR-NON AF CYMRO >60 Normal >=60 [facility] Comment on above: Performed By: #### C MP #### [facility] [address] [place] [address] Dr. Bob Nelson Globulin (S) [Mass/Vol] 3.0 g/dL Normal [facility] Comment on above: Performed By: #### C MP #### [facility] [address] [place] [address] Dr. Bob Nelson Glucose [Mass/Vol] 98 mg/dL Normal 74-106 [facility] Comment on above: Performed By: #### C MP #### [facility] [address] [address] [address] Bob Nelson Potassium [Moles/Vol] 3.9 mmol/L Normal 3.5-5.1 [facility] Comment on above: Performed By: #### C MP #### [facility] [address] [place] [address] Dr. Bob Nelson Protein [Mass/Vol] 6.9 g/dL Normal 6.4-8.2 [facility] Comment on above: Performed By: #### C MP #### [facility] [address] [place] [address] Dr. Bob Nelson Sodium [Moles/Vol] 141 mmol/L Normal 136-145 [facility] Comment on above: Performed By: #### C MP #### [facility] [address] [place] [address] Dr. Bob Nelson Urea nitrogen [Mass/Vol] 14.0 mg/dL Normal 7.0-18.0 [facility] Comment on above: Performed By: #### C MP #### [facility] [address] [place] [address] Dr. Bob Nelson Urea nitrogen/Creatinine [Mass ratio] 14.6 mg/mg Normal [facility] Comment on above: Performed By: #### C MP #### [facility] [address] [place] [address] Dr. Bob Nelson CBC AUTO DIFFon 02-27-2022 BASO # 0.0 103/ul Normal 0.0-0.1 [facility] Comment on above: Performed By: #### B MP #### [facility] [address] [place] [address] Dr. Bob Nelson Basophils/100 WBC (Bld) 0.5 % Normal 0.2-2.0 [facility] Comment on above: Performed By: #### B MP #### [facility] [address] [place] [address] Dr. Bob Nelson EO # 0.1 103/ul Normal 0.0-0.7 [facility] Comment on above: Performed By: #### B MP #### [facility] [address] [place] [address] Dr. Bob Nelson Eosinophils/100 WBC (Bld) 0.6 % Critically low 0.9-7. 0 [facility] Comment on above: Performed By: #### B MP #### [facility] [address] [place] [address] Dr. Bob Nelson Erythrocyte distribution width (RBC) [Ratio] 12.5 % Normal 11.0-15.0 [facility] Comment on above: Performed By: #### B MP #### [facility] [address] [place] [address] Dr. Bob Nelson Hematocrit (Bld) [Volume fraction] 46.1 % Normal 42.0-54.0 [facility] Comment on above: Performed By: #### B MP #### [facility] [address] [place] [address] Dr. Bob Nelson Hemoglobin (Bld) [Mass/Vol] 16.1 g/dL Normal 14.0-18.0 [facility] Comment on above: Performed By: #### B MP #### [facility] [address] [place] [address] Dr. Bob Nelson IG # 0.02 10e3/ul Normal 0.00-0.03 [facility] Comment on above: Performed By: #### B MP #### [facility] [address] [place] [address] Dr. Bob Nelson IG % 0.3 % Normal 0.0-0.5 [facility] Comment on above: Performed By: #### B MP #### [facility] [address] [place] [address] Dr. Bob Nelson LYMPH # 1.3 103/ul Normal 1.2-3.8 [facility] Comment on above: Performed By: #### B MP #### [facility] [address] [place] [address] Dr. Bob Nelson Lymphocytes/100 WBC (Bld) 16.2 % Critically low 20.5-[address] [facility] Comment on above: Performed By: #### B MP #### [facility] [address] [place] [address] Dr. Bob Nelson MANUAL DIFF REQ NO Normal [facility] Comment on above: Performed By: #### B MP #### [facility] [address] [place] [address] Dr. Bob Nelson MCH (RBC) [Entitic mass] 28.6 pg Normal 25.9-34.0 [facility] Comment on above: Performed By: #### B MP #### [facility] [address] [place] [address] Dr. Bob Nelson MCHC (RBC) [Mass/Vol] 34.9 g/dL Normal 29.9-35.2 [facility] Comment on above: Performed By: #### B MP #### [facility] [address] [place] [address] Dr. Bob Nelson MCV (RBC) [Entitic vol] 81.9 fL Normal 80.0-94.0 [facility] Comment on above: Performed By: #### B MP #### [facility] [address] [place] [address] Dr. Bob Nelson MONO # 0.4 103/ul Normal 0.3-0.8 [facility] Comment on above: Performed By: #### B MP #### [facility] [address] [place] [address] Dr. Bob Nelson Monocytes/100 WBC (Bld) 5.0 % Normal 1.7-12.0 [facility] Comment on above: Performed By: #### B MP #### [facility] [address] [place] [address] Dr. Bob Nelson NEUT # 6.1 103/ul Normal 1.4-6.5 [facility] Comment on above: Performed By: #### B MP #### [facility] [address] [place] [address] Dr. Bob Nelson Neutrophils/100 WBC (Bld) 77.4 % Critically high 43.0- 75.0 [facility] Comment on above: Performed By: #### B MP #### [facility] [address] [address] [address] Bob Nelson Platelet mean volume (Bld) [Entitic vol] 9.5 fL Normal 9.5-13.5 [facility] Comment on above: Performed By: #### B MP #### [facility] [address] [address] [address] Bob Nelson PLT 203 103/ul Normal 150-450 [facility] Comment on above: Performed By: #### B MP #### [facility] [address] [address] [address] Bob Nelson RBC 5.63 106/ul Normal 4.70-6.10 [facility] Comment on above: Performed By: #### B MP #### [facility] [address] [place] [address] Dr. Bob Nelson WBC 7.9 103/ul Normal 4.0-11.0 [facility] Comment on above: Performed By: #### B MP #### [facility] [address] [place] [address] HEAD WO CONon [...] CHERI CONNER Date: 2022-02-27 15:43 Normal [facility] Covid-19 PCR (CVDTBH)on SARS-CoV-2 (COVID-19) RNA MAHESH+probe Ql (Unsp spec) Not detected Normal NOT DETECTED [facility] Comment on above: Result [...] for this test is supported by the Material Cutter of Health and Human Service's declaration that [...] used). Performed By: #### C MP #### [facility] [address] [place] [address] Dr. Bob Nelson LACTATE/LACTIC ACIDon 2021 Lactate [Moles/Vol] 0.9 mmol/L Normal 0.4-1.9 [facility] Comment on above: Performed By: #### L ACT #### [facility] [address] [place] [address] Dr. Bob Nelson Lactate [Moles/Vol] 3.9 mmol/L Critically high 0.4-1.9 [facility] Comment on above: Performed By: #### B MP #### [facility] [address] [place] [address] Dr. Bob Nelson PROF CHEM 8 (BAS METB)on Anion gap [Moles/Vol] 16.1 mmol/L Normal [facility] Comment on above: Performed By: #### B MP #### [facility] [address] [place] [address] Dr. Bob Nelson Calcium [Mass/Vol] 8.9 mg/dL Normal 8.5-10.1 [facility] Comment on above: Performed By: #### B MP #### [facility] [address] [address] [address] Bob Nelson Chloride [Moles/Vol] 99 mmol/L Normal 98-107 [facility] Comment on above: Performed By: #### B MP #### [facility] [address] [address] [address] Bob Nelson CO2 [Moles/Vol] 24.0 mmol/L Normal 21.0-32.0 [facility] Comment on above: Performed By: #### B MP #### [facility] [address] [address] [address] Bob Nelson Creatinine [Mass/Vol] 1.13 mg/dL Normal 0.70-1.30 [facility] Comment on above: Performed By: #### B MP #### [facility] [address] [place] [address] Dr. Bob Nelson EGFR-AF CYMRO >60 Normal >=60 [facility] Comment on above: Performed By: #### B MP #### [facility] [address] [place] [address] Dr. Bob Nelson EGFR-NON AF CYMRO >60 Normal >=60 [facility] Comment on above: Performed By: #### B MP #### [facility] [address] [place] [address] Dr. Bob Nelson Glucose [Mass/Vol] 158 mg/dL Critically high 74-106 [facility] Comment on above: Performed By: #### B MP #### [facility] [address] [place] [address] Dr. Bob Nelson Potassium [Moles/Vol] 4.1 mmol/L Normal 3.5-5.1 [facility] Comment on above: Performed By: #### B MP #### [facility] [address] [place] [address] Dr. Bob Nelson Sodium [Moles/Vol] 135 mmol/L Critically low 136-145 [facility] Comment on above: Performed By: #### B MP #### [facility] [address] [place] [address] Dr. Bob Nelson Urea nitrogen [Mass/Vol] 15.0 mg/dL Normal 7.0-18.0 [facility] Comment on above: Performed By: #### B MP #### [facility] [address] [place] [address] Dr. Bob Nelson Urea nitrogen/Creatinine [Mass ratio] 13.3 mg/mg Normal [facility] Comment on above: Performed By: #### B MP #### [facility] [address] [place] [address] Dr. 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 Bob Nelson Clarity (U) CLEAR Normal CLEAR [facility] Comment on above: Performed By: #### C MP #### [facility] [address] [place] [address] Dr. Bob Nelson Color (U) LT. YELLOW Normal YELLOW [facility] Comment on above: Performed By: #### C MP #### [facility] [address] [place] [address] Dr. Bob Nelson Glucose Ql (U) Negative Normal NEGATIVE [facility] Comment on above: Performed By: #### C MP #### [facility] [address] [place] [address] Dr. Bob Nelson Hemoglobin Ql (U) TRACE-INTACT Abnormal NEGATIVE [facility] Comment on above: Performed By: #### C MP #### [facility] [address] [place] [address] Dr. Bob Nelson Ketones Ql (U) Negative Normal NEGATIVE [facility] Comment on above: Performed By: #### C MP #### [facility] [address] [place] [address] Dr. Bob Nelson LEUKOCYTES Negative Normal NEGATIVE [facility] Comment on above: Performed By: #### C MP #### [facility] [address] [place] [address] Dr. Bob Nelson Nitrite Ql (U) Negative Normal NEGATIVE [facility] Comment on above: Performed By: #### C MP #### [facility] [address] [place] [address] Dr. Bob Nelson pH (U) 5.5 [pH] Normal 5-9 [facility] Comment on above: Performed By: #### C MP #### [facility] [address] [place] [address] Dr. Bob Nelson SPEC GRAVITY 1.010 Normal 1.005-<=1.[address] [facility] Comment on above: Performed By: #### C MP #### [facility] [address] [place] [address] Dr. Bob Nelson UA PROTEIN Negative Normal NEGATIVE/ TRACE [facility] Comment on above: Performed By: #### C MP #### [facility] [address] [place] [address] Dr. Bob Nelson UR MICRO IND INDICATED Normal [facility] Comment on above: Performed By: #### C MP #### [facility] [address] [place] [address] Dr. Bob Nelson Urobilinogen Qn (U) 0.2 {Lance'U}/dL Normal 0.2 - 1. 0 [facility] Comment on above: Performed By: #### C MP #### [facility] [address] [place] [address] Dr. Bob Nelson URINE MICROSCOPIC ONLYon BACTERIA NONE SEEN Normal NONE SEEN [facility] Comment on above: Performed By: #### C MP #### [facility] [address] [place] [address] Dr. Bob Nelson Bacteria identified Cx Nom (U) NOT INDICATED Normal [facility] Comment on above: Performed By: #### C MP #### [facility] [address] [place] [address] Dr. Bob Nelson CAST NONE SEEN Normal NONE SEEN [facility] Comment on above: Performed By: #### C MP #### [facility] [address] [address] [address] Bob Nelson Crystals LM Nom (Urine sed) NONE SEEN Normal NONE SEEN [facility] Comment on above: Performed By: #### C MP #### [facility] [address] [place] [address] Dr. Bob Nelson Epithelial cells LM Ql (Urine sed) RARE Normal NONE SEEN /RARE [facility] Comment on above: Performed By: #### C MP #### [facility] [address] [place] [address] Dr. Bob Nelson MUCOUS NONE SEEN Normal NONE SEEN [facility] Comment on above: Performed By: #### C MP #### [facility] [address] [place] [address] Dr. Bob Nelson RBC 0-2 Normal 0-2 [facility] Comment on above: Performed By: #### C MP #### [facility] [address] [place] [address] Dr. Bob Nelson WBC NONE SEEN Normal NONE SEEN [facility] Comment on above: Performed By: #### C MP #### [facility] [address] [place] [address] Dr. Bob Nelson XR CHEST 2 Von [...] CHERI CONNER Date: 2022-02-27 15:45 Normal [facility] CBC AUTO DIFFon 02-02-2022 BASO # 0.0 103/ul Normal 0.0-0.1 [facility] Comment on above: Performed By: #### C MP #### [facility] [address] [place] [address] Dr. Bob Nelson Basophils/100 WBC (Bld) 0.2 % Normal 0.2-2.0 [facility] Comment on above: Performed By: #### C MP #### [facility] [address] [place] [address] Dr. Bob Nelson EO # 0.1 103/ul Normal 0.0-0.7 [facility] Comment on above: Performed By: #### C MP #### [facility] [address] [place] [address] Dr. Bob Nelson Eosinophils/100 WBC (Bld) 0.7 % Critically low 0.9-7. 0 [facility] Comment on above: Performed By: #### C MP #### [facility] [address] [place] [address] Dr. Bob Nelson Erythrocyte distribution width (RBC) [Ratio] 12.4 % Normal 11.0-15.0 [facility] Comment on above: Performed By: #### C MP #### [facility] [address] [place] [address] Dr. Bob Nelson Hematocrit (Bld) [Volume fraction] 46.1 % Normal 42.0-54.0 [facility] Comment on above: Performed By: #### C MP #### [facility] [address] [place] [address] Dr. Bob Nelson Hemoglobin (Bld) [Mass/Vol] 16.0 g/dL Normal 14.0-18.0 [facility] Comment on above: Performed By: #### C MP #### [facility] [address] [place] [address] Dr. Bob Nelson IG # 0.03 10e3/ul Normal 0.00-0.03 [facility] Comment on above: Performed By: #### C MP #### [facility] [address] [place] [address] Dr. Bob Nelson IG % 0.3 % Normal 0.0-0.5 [facility] Comment on above: Performed By: #### C MP #### [facility] [address] [place] [address] Dr. Bob Nelson LYMPH # 1.5 103/ul Normal 1.2-3.8 [facility] Comment on above: Performed By: #### C MP #### [facility] [address] [address] [address] Bob Nelson Lymphocytes/100 WBC (Bld) 16.0 % Critically low 20.5-[address] [facility] Comment on above: Performed By: #### C MP #### [facility] [address] [address] [address] Bob Nelson MANUAL DIFF REQ NO Normal [facility] Comment on above: Performed By: #### C MP #### [facility] [address] [address] [address] Bob Nelson MCH (RBC) [Entitic mass] 28.6 pg Normal 25.9-34.0 [facility] Comment on above: Performed By: #### C MP #### [facility] [address] [place] [address] Dr. Bob Nelson MCHC (RBC) [Mass/Vol] 34.7 g/dL Normal 29.9-35.2 [facility] Comment on above: Performed By: #### C MP #### [facility] [address] [place] [address] Dr. Bob Nelson MCV (RBC) [Entitic vol] 82.5 fL Normal 80.0-94.0 [facility] Comment on above: Performed By: #### C MP #### [facility] [address] [place] [address] Dr. Bob Nelson MONO # 0.6 103/ul Normal 0.3-0.8 [facility] Comment on above: Performed By: #### C MP #### [facility] [address] [place] [address] Dr. Bob Nelson Monocytes/100 WBC (Bld) 5.7 % Normal 1.7-12.0 [facility] Comment on above: Performed By: #### C MP #### [facility] [address] [place] [address] Dr. Bob Nelson NEUT # 7.4 103/ul Critically high 1.4-6.[address] [facility] Comment on above: Performed By: #### C MP #### [facility] [address] [address] [address] Bob Nelson Neutrophils/100 WBC (Bld) 77.1 % Critically high 43.0- 75.0 [facility] Comment on above: Performed By: #### C MP #### [facility] [address] [address] [address] Bob Nelson Platelet mean volume (Bld) [Entitic vol] 9.3 fL Critically low 9.5-13.5 [facility] Comment on above: Performed By: #### C MP #### [facility] [address] [address] [address] Bob Nelson PLT 184 103/ul Normal 150-450 [facility] Comment on above: Performed By: #### C MP #### [facility] [address] [place] [address] Dr. Bob Nelson RBC 5.59 106/ul Normal 4.70-6.10 [facility] Comment on above: Performed By: #### C MP #### [facility] [address] [place] [address] Dr. Bob Nelson WBC 9.6 103/ul Normal 4.0-11.0 [facility] Comment on above: Performed By: #### C MP #### [facility] [address] [place] [address] Dr. Bob Nelson PROF 14(COMP METB)on 022 Albumin [Mass/Vol] 4.3 g/dL Normal 3.4-5.0 [facility] Comment on above: Performed By: #### C BC #### [facility] [address] [place] [address] Dr. Bob Nelson Albumin/Globulin [Mass ratio] 1.3 {ratio} Normal [facility] Comment on above: Performed By: #### C BC #### [facility] [address] [place] [address] Dr. Bob Nelson ALP [Catalytic activity/Vol] 86 U/L Normal 46-116 [facility] Comment on above: Performed By: #### C BC #### [facility] [address] [address] [address] Bob Nelson ALT [Catalytic activity/Vol] 87 U/L Critically high 16-63 [facility] Comment on above: Performed By: #### C BC #### [facility] [address] [address] [address] Bob Nelson Anion gap [Moles/Vol] 11.9 mmol/L Normal Th [facility] Comment on above: Performed By: #### C BC #### [facility] [address] [address] [address] Bob Nelson AST [Catalytic activity/Vol] 44 U/L Critically high 15-37 [facility] Comment on above: Performed By: #### C BC #### [facility] [address] [place] [address] Dr. Bob Nelson Bilirubin [Mass/Vol] 0.3 mg/dL Normal 0.2-1.0 [facility] Comment on above: Performed By: #### C BC #### [facility] [address] [place] [address] Dr. Bob Nelson Calcium [Mass/Vol] 9.3 mg/dL Normal 8.5-10.1 [facility] Comment on above: Performed By: #### C BC #### [facility] [address] [place] [address] Dr. Bob Nelson Chloride [Moles/Vol] 102 mmol/L Normal 98-107 [facility] Comment on above: Performed By: #### C BC #### [facility] [address] [address] [address] Bob Nelson CO2 [Moles/Vol] 27.8 mmol/L Normal 21.0-32.0 [facility] Comment on above: Performed By: #### C BC #### [facility] [address] [place] [address] Dr. Bob Nelson Creatinine [Mass/Vol] 1.16 mg/dL Normal 0.70-1.30 [facility] Comment on above: Performed By: #### C BC #### [facility] [address] [address] [address] Bob Nelson EGFR-AF CYMRO >60 Normal >=60 [facility] Comment on above: Performed By: #### C BC #### [facility] [address] [address] [address] Bob Nelson EGFR-NON AF CYMRO >60 Normal >=60 [facility] Comment on above: Performed By: #### C BC #### [facility] [address] [address] [address] Bob Nelson Globulin (S) [Mass/Vol] 3.3 g/dL Normal [facility] Comment on above: Performed By: #### C BC #### [facility] [address] [place] [address] Dr. Bob Nelson Glucose [Mass/Vol] 112 mg/dL Critically high 74-106 [facility] Comment on above: Performed By: #### C BC #### [facility] [address] [place] [address] Dr. Bob Nelson Potassium [Moles/Vol] 3.7 mmol/L Normal 3.5-5.1 [facility] Comment on above: Performed By: #### C BC #### [facility] [address] [place] [address] Dr. Bob Nelson Protein [Mass/Vol] 7.6 g/dL Normal 6.4-8.2 [facility] Comment on above: Performed By: #### C BC #### [facility] [address] [place] [address] Dr. Bob Nelson Sodium [Moles/Vol] 138 mmol/L Normal 136-145 [facility] Comment on above: Performed By: #### C BC #### [facility] [address] [place] [address] Dr. Bob Nelson Urea nitrogen [Mass/Vol] 11.0 mg/dL Normal 7.0-18.0 [facility] Comment on above: Performed By: #### C BC #### [facility] [address] [place] [address] Dr. Bob Nelson Urea nitrogen/Creatinine [Mass ratio] 9.5 mg/mg Normal [facility] Comment on above: Performed By: #### C #### [facility] [address] [address] [address] Bob Nelson Progress Noteson 02-02-2022 [employer] Authentication Interface Message Text EMERGENCY TRIAGE, TREAT AND TRANSPORT (ET3) DOCUMENTATION OF TELEHEALTH VISIT Date / Time: 02/02/2022599 Name: Corey Alonso : 1995 SSN: [id number] EMS Agency: [facility] [x] Verbal consent obtained [...] Completed by: Maritza Romo MD Normal [facility] CBC AUTO DIFFon 12-30-2021 BASO # 0.0 103/ul Normal 0.0-0.1 [facility] Comment on above: Performed By: #### C BC #### [facility] [address] [place] [address] Dr. Bob Nelson Basophils/100 WBC (Bld) 0.6 % Normal 0.2-2.0 [facility] Comment on above: Performed By: #### C BC #### [facility] [address] [place] [address] Dr. Bob Nelson EO # 0.0 103/ul Normal 0.0-0.7 [facility] Comment on above: Performed By: #### C BC #### [facility] [address] [place] [address] Dr. Bob Nelson Eosinophils/100 WBC (Bld) 0.6 % Critically low 0.9-7. 0 [facility] Comment on above: Performed By: #### C BC #### [facility] [address] [place] [address] Dr. Bob Nelson Erythrocyte distribution width (RBC) [Ratio] 12.3 % Normal 11.0-15.0 [facility] Comment on above: Performed By: #### C BC #### [facility] [address] [place] [address] Dr. Bob Nelson Hematocrit (Bld) [Volume fraction] 48.5 % Normal 42.0-54.0 [facility] Comment on above: Performed By: #### C BC #### [facility] [address] [place] [address] Dr. Bob Nelson Hemoglobin (Bld) [Mass/Vol] 16.1 g/dL Normal 14.0-18.0 [facility] Comment on above: Performed By: #### C BC #### [facility] [address] [place] [address] Dr. Bob Nelson IG # 0.03 10e3/ul Normal 0.00-0.03 [facility] Comment on above: Performed By: #### C BC #### [facility] [address] [place] [address] Dr. Bob Nelson IG % 0.4 % Normal 0.0-0.5 [facility] Comment on above: Performed By: #### C BC #### [facility] [address] [place] [address] Dr. Bob Nelson LYMPH # 2.2 103/ul Normal 1.2-3.8 [facility] Comment on above: Performed By: #### C BC #### [facility] [address] [place] [address] Dr. Bob Nelson Lymphocytes/100 WBC (Bld) 30.6 % Normal 20.5-60.0 [facility] Comment on above: Performed By: #### C BC #### [facility] [address] [place] [address] Dr. Bob Nelson MANUAL DIFF REQ NO Normal [facility] Comment on above: Performed By: #### C BC #### [facility] [address] [place] [address] Dr. Bob Nelson MCH (RBC) [Entitic mass] 28.1 pg Normal 25.9-34.0 [facility] Comment on above: Performed By: #### C BC #### [facility] [address] [place] [address] Dr. oBb Nelson MCHC (RBC) [Mass/Vol] 33.2 g/dL Normal 29.9-35.2 [facility] Comment on above: Performed By: #### C BC #### [facility] [address] [place] [address] Dr. Bob Nelson MCV (RBC) [Entitic vol] 84.6 fL Normal 80.0-94.0 [facility] Comment on above: Performed By: #### C BC #### [facility] [address] [place] [address] Dr. Bob Nelson MONO # 0.4 103/ul Normal 0.3-0.8 [facility] Comment on above: Performed By: #### C BC #### [facility] [address] [place] [address] Dr. Bob Nelson Monocytes/100 WBC (Bld) 6.1 % Normal 1.7-12.0 [facility] Comment on above: Performed By: #### C BC #### [facility] [address] [place] [address] Dr. Bob Nelson NEUT # 4.4 103/ul Normal 1.4-6.5 [facility] Comment on above: Performed By: #### C BC #### [facility] [address] [place] [address] Dr. Bob Nelson Neutrophils/100 WBC (Bld) 61.7 % Normal 43.0-75.0 [facility] Comment on above: Performed By: #### C BC #### [facility] [address] [place] [address] Dr. Bob Nelson Platelet mean volume (Bld) [Entitic vol] 9.5 fL Normal 9.5-13.5 [facility] Comment on above: Performed By: #### C BC #### [facility] [address] [place] [address] Dr. Bob Nelson PLT 228 103/ul Normal 150-450 [facility] Comment on above: Performed By: #### C BC #### [facility] [address] [place] [address] Dr. Bob Nelson RBC 5.73 106/ul Normal 4.70-6.10 [facility] Comment on above: Performed By: #### C BC #### [facility] [address] [place], [place] [address] [address]. Bob Nelson WBC 7.2 103/ul Normal 4.0-11.0 [facility] Comment on above: Performed By: #### C BC #### [facility] [address] [place], [place] [address] CSPINE WO CONon [...] TRINITY KING Date: 2021-12-30 20:14 Normal [facility] CT HEAD WO CONon 12-30-2021 CT [...] ERNESTO GIRON Date: 2021-12-30 20:37 Normal [facility] PROF CHEM 8 (BAS METB)on Anion gap [Moles/Vol] 24.1 mmol/L Normal [facility] Comment on above: Performed By: #### B MP #### [facility] [address] [place] [address] Dr. Bob Nelson Calcium [Mass/Vol] 9.3 mg/dL Normal 8.5-10.1 [facility] Comment on above: Performed By: #### B MP #### [facility] [address] [place] [address] Dr. Bob Nelson Chloride [Moles/Vol] 101 mmol/L Normal 98-107 [facility] Comment on above: Performed By: #### B MP #### [facility] [address] [place] [address] Dr. Bob Nelson CO2 [Moles/Vol] 16.9 mmol/L Critically low 21.0-32.0 [facility] Comment on above: Performed By: #### B MP #### [facility] [address] [place] [address] Dr. Bob Nelson Creatinine [Mass/Vol] 1.13 mg/dL Normal 0.70-1.30 [facility] Comment on above: Performed By: #### B MP #### [facility] [address] [place] [address] Dr. Bob Nelson EGFR-AF CYMRO >60 Normal >=60 [facility] Comment on above: Performed By: #### B MP #### [facility] [address] [place] [address] Dr. Bob Nelson EGFR-NON AF CYMRO >60 Normal >=60 [facility] Comment on above: Performed By: #### B MP #### [facility] [address] [place] [address] Dr. Bob Nelson Glucose [Mass/Vol] 107 mg/dL Critically high 74-106 [facility] Comment on above: Performed By: #### B MP #### [facility] [address] [address] [address] Bob Nelson Potassium [Moles/Vol] 4.0 mmol/L Normal 3.5-5.1 [facility] Comment on above: Performed By: #### B MP #### [facility] [address] [id number] Bob Nelson Sodium [Moles/Vol] 138 mmol/L Normal 136-145 [facility] Comment on above: Performed By: #### B MP #### [facility] [address] [address] [address] Bob Nelson Urea nitrogen [Mass/Vol] 14.0 mg/dL Normal 7.0-18.0 [facility] Comment on above: Performed By: #### B MP #### [facility] [address] [address] [address] Bob Nelson Urea nitrogen/Creatinine [Mass ratio] 12.4 mg/mg Normal [facility] Comment on above: Performed By: #### B MP #### [facility] [address] [address] [address] Bob Nelson ELECTROENCEPHALOGRAMon 11-[address] [id number] ELECTROENCEPHALOGRAM REPORT PATIENT NAME: COREY ALONSO : 1995 MED REC NO: [id number] ROOM: ACCOUNT NO: [id number] ADMIT DATE: 11/28/2021 PROVIDER: Brian Granado DATE [...] or epileptiform activity. BRIAN GRANADO FLORECITA/[email or web address] Doc#: [id number] CC: Emeli Chi, Gege Normal [facility] MRI BRAIN WO CONTRASTon 05-0 MRI BRAIN WO CONTRAST EXAMINATION: MRI OF THE BRAIN WITHOUT CONTRAST 11/28/2021 9:44 am TECHNIQUE: Multiplanar multisequence MRI of the brain was performed without the administration of intravenous contrast. COMPARISON: None HISTORY: ORDERING SYSTEM PROVIDED HISTORY: Partial symptomatic epilepsy with complex partial seizures, intractable, without status epilepticus ([facility]) TECHNOLOGIST PROVIDED HISTORY: epilepsy What is the [...] Anjali Lozoya MD 11/28/21 Final result Normal [facility] ANES POSTPROC EVALon 022 ANES POSTPROC EVAL HNO ID: [id number] Author: Tung Macias MD Service: Anesthesiology Author Type: Anesthesiologist Type: Anesthesia Postprocedure Evaluation Filed: 09/01/2021 6:31 AM Note Text: POST ANESTHESIA EVALUATION NOTE : 1995 Procedure Summary Date: 08/31/21 Room / Location: [address] / [facility] Anesthesia Start: 1303 Anesthesia Stop: 1358 Procedure: [...] September 01, 2021 TIME: 6:31 AM CSN: [id number] [facility] ANES PRE-OPon 08-31-2021 ANES PRE-OP HNO ID: [id number] Author: Tung Macias MD Service: Anesthesiology Author Type: Anesthesiologist Type: Anesthesia Preprocedure Evaluation Filed: 08/31/2021 12:08 PM Note Text: ANESTHESIOLOGY DAY OF SURGERY NOTE : 1995 Procedure Information Date/Time: 08/31/21 1215 Procedure: CYSTOURETHROSCOPY W/ INCISION OF EJACULATORY DUCTS (Right Urethra) Location: [facility] / [facility] [place] Surgeons: Domi Scruggs MD Estimated body mass [...] August 31, 2021 TIME: 12:08 PM CSN: [id number] [facility] OPERATIVE NOon 08-31-2021 OPERATIVE NO HNO ID: [id number] Author: Dmoi Scruggs MD Service: Urology Author Type: Physician Type: Operative Report Filed: 08/31/2021 3:22 PM Note Text: [facility] UROLOGY OPERATIVE REPORT Patient Name: Corey Alonso III Patient Log ID: [id number] Surgery Date: 08/31/2021 Incision/Procedure Start Time: 1:17 PM Incision Close/Procedure End Time: 1:47 PM Surgeon(s) and Plant Assigner(s): Surgeon(s) and Role: * Domi Scruggs MD [...] stricture was dilated using a series of [place] Sounds to 28Fr. The scope then passed [...] made to terminate the procedure. An 18Fr [place] catheter was inserted over a solo wire and used to drain the bladder. 10cc was added to the balloon. The patient tolerated the procedure well and was taken to the recovery area in stable condition. Estimated Blood Loss 5mL Specimens * No specimens in log * Implantable Devices None Drains 1. 18Fr [place] Leal (10cc in balloon) Complications None Accidental perforations or lacerations None The primary surgeon performed the procedure with assistance from the resident Dictated by Won Huerta MD, PhD on behalf of Domi Scruggs MD Normal [facility] CARDIAC SHARON ADMITon 017 CKMB 1.27 ng/mL Normal <=2.37 [facility] Comment on above: Performed By: #### B MP, LIPA, LIVER, CMADM ####[facility] Y[address]ypz[address] [place] Creatine kinase (CK) 79 U/L Normal 55-170 [facility] Comment on above: Performed By: #### B MP, LIPA, LIVER, CMADM ####[facility] N[address]eke[address] [place] INR Coag RelTime (Bld) SEE BELOW Normal Th [facility] Comment on above: Result Comment: <0.0 34 ng/ml NEGATIVE 0.034-0.119 INDETERMINATE 0.120 AMI CUT OFF Performed By: #### B MP, LIPA, LIVER, CMADM ####[facility] [address] [place] [address] [place] JOSH 36.0 ng/mL Normal <=121.0 [facility] Comment on above: Performed By: #### B MP, LIPA, LIVER, CMADM ####[facility] Nvdgrkxtgz2293 [address] [place] TROP <0.012 Normal <=0.034 [facility] Comment on above: Performed By: #### B MP, LIPA, LIVER, CMADM ####[facility] Barmkxdvqh8951 [address] [place] CBC AUTO DIFFon 05-03-2017 Basophils Auto #/vol (Bld) 0.0 103/ul Normal 0.0-0.1 [facility] Comment on above: Performed By: #### C BC ####[facility] [address] [place] [address] [place] Basophils/100 WBC Auto (Bld) 0.7 % Normal 0.2-2.0 [facility] Comment on above: Performed By: #### C BC ####[facility] [address] [id number] Eosinophils 0.1 103/ul Normal 0.0-0.7 [facility] Comment on above: Performed By: #### C BC ####[facility] [address] [id number] Eosinophils/100 leukocytes 1.1 % Normal 0.9-7.0 [facility] Comment on above: Performed By: #### C BC ####[facility] Yetrqwwhig4880 [address] [place] Erythrocyte distribution width Auto Ratio (RBC) 12.8 % Normal 11.0-15.[address] [facility] Comment on above: Performed By: #### C BC ####[facility] [address] [place] [address] [place] Erythrocytes (RBC) 4.96 106/ul Normal 4.70-6.10 [facility] Comment on above: Performed By: #### C BC ####[facility] [address] [place], [place] [address] Hematocrit (HCT) 40.6 % Critically low 42.0-54.0 [facility] Comment on above: Performed By: #### C BC ####[facility] [address] [place] [address] [place] Hemoglobin mass conc (Bld) 14.1 g/dL Normal 14.0-18.0 [facility] Comment on above: Performed By: #### C BC ####[facility] [address] [place], [place] [address] IG # 0.03 10e3/ul Normal 0.00-0.03 [facility] Comment on above: Performed By: #### C BC ####[facility] [address] [place] [address] [place] IG % 0.5 % Normal 0.0-0.5 [facility] Comment on above: Performed By: #### C BC ####[facility] Tclwshxiat5774 [address] [place] Lymphocytes 1.7 103/ul Normal 1.2-3.8 [facility] Comment on above: Performed By: #### C BC ####[facility] Afziuhpwak8881 [address] [place] Lymphocytes/100 leukocytes 30.6 % Normal 20.5-60.0 [facility] Comment on above: Performed By: #### C BC ####[facility] Jelfjwpojl5927 [address] [place] MANUAL DIFF REQ NO Normal [facility] Comment on above: Performed By: #### C BC ####[facility] Ujitmingyy1185 [address] [place] MCH 28.4 pg Normal 25.9-34.0 [facility] Comment on above: Performed By: #### C BC ####[facility] Wqxxkvhpoc8833 [address] [place] MCHC mass conc (RBC) 34.7 g/dL Normal 29.9-35.2 [facility] Comment on above: Performed By: #### C BC ####[facility] Xzrnyukqii8969 [address] [place] MCV 81.9 fL Normal 80.0-94.0 [facility] Comment on above: Performed By: #### C BC ####[facility] Xbhuq[address]gnn[address] [place] Monocytes 0.3 103/ul Normal 0.3-0.8 [facility] Comment on above: Performed By: #### C BC ####[facility] Ryuvgivsim8279 [address] [place] Monocytes/100 leukocytes 5.7 % Normal 1.7-12.0 [facility] Comment on above: Performed By: #### C BC ####[facility] W[address]hh46[address] [place] Neutrophils 3.5 103/ul Normal 1.4-6.5 [facility] Comment on above: Performed By: #### C BC ####[facility] [address] [id number] Neutrophils/100 WBC Auto (Bld) 61.4 % Normal 43.0-75.0 [facility] Comment on above: Performed By: #### C BC ####[facility] [address] [id number] Platelet mean volume (PMV) 9.3 fL Critically low 9.5-13.5 [facility] Comment on above: Performed By: #### C BC ####[facility] [address] [id number] Platelets 221 103/ul Normal 150-450 [facility] Comment on above: Performed By: #### C BC ####[facility] [address] [place], [place] [id number] WBC (Leukocytes) 5.7 103/ul Normal 4.0-11.0 [facility] Comment on above: Performed By: #### C BC ####[facility] [address] [place], [place] [address] LIPASEon 05-03-2017 Lipase 55.0 U/L Normal 23.0-300.0 [facility] Comment on above: Performed By: #### B MP, LIPA, LIVER, CMADM ####[facility] [address] [id number] LIVER PROFILEon 05-03-2017 Alanine aminotransferase (ALT) 35 U/L Normal 21-72 [facility] Comment on above: Performed By: #### B MP, LIPA, LIVER, CMADM ####[facility] [address] [id number] Albumin 4.4 g/dL Normal 3.5-5.0 [facility] Comment on above: Performed By: #### B MP, LIPA, LIVER, CMADM ####[facility] [address] [id number] Albumin/Globulin Ratio 1.4 {ratio} Normal [facility] Comment on above: Performed By: #### B MP, LIPA, LIVER, CMADM ####[facility] Kvx[address]epyy[address] Alkaline phosphatase (ALP) 74 U/L Normal 38-126 [facility] Comment on above: Performed By: #### B MP, LIPA, LIVER, CMADM ####[facility] Cuztn[address]ayl3[address] Aspartate aminotransferase (AST) 21 U/L Normal 17-59 [facility] Comment on above: Performed By: #### B MP, LIPA, LIVER, CMADM ####[facility] E[address]yywlyy[address] [place] BILI, CONJUGATED 0.0 mg/dL Normal 0.0-0.3 [facility] Comment on above: Performed By: #### B MP, LIPA, LIVER, CMADM ####[facility] Yj[address]zvi[address] Bilirubin Ql (U) 0.8 mg/dL Normal 0.2-1.3 [facility] Comment on above: Performed By: #### B MP, LIPA, LIVER, CMADM ####[facility] [address] [place] [address] [place] Globulin 3.1 g/dL Normal [facility] Comment on above: Performed By: #### B MP, LIPA, LIVER, CMADM ####[facility] Kotpgueohw[address]22 [address] [place] Protein 7.5 g/dL Normal 6.1-8.2 [facility] Comment on above: Performed By: #### B MP, LIPA, LIVER, CMADM ####[facility] Oakthiyvxc[address] [place] PROF CHEM 8 (BAS METB)on Anion gap 12.7 mmol/L Normal [facility] Comment on above: Performed By: #### B MP, LIPA, LIVER, CMADM ####[facility] [facility] Yoywheafoz4926 [address] [place] BUN/Creatinine Ratio 14.4 mg/mg Normal [facility] Comment on above: Performed By: #### B MP, LIPA, LIVER, CMADM ####[facility] Fdjfjxbowe39[address] [place] Calcium 9.6 mg/dL Normal 8.4-10.2 [facility] Comment on above: Performed By: #### B MP, LIPA, LIVER, CMADM ####[facility] Jyohtgetks[address] [place] Chloride 103 mmol/L Normal 98-107 [facility] Comment on above: Performed By: #### B MP, LIPA, LIVER, CMADM ####[facility] Evgnelhxfs0927 [address] [place] CO2 30.0 mmol/L Normal 22.0-30.0 [facility] Comment on above: Performed By: #### B MP, LIPA, LIVER, CMADM ####[facility] Pmuelisadl[address] [place] Creatinine 0.87 mg/dL Normal 0.66-1.25 [facility] Comment on above: Performed By: #### B MP, LIPA, LIVER, CMADM ####[facility] Ioszvfmlwx8263 [address] [place] eGFR (non-black) Normal 60-N/A The [facility] Comment on above: Performed By: #### B MP, LIPA, LIVER, CMADM ####[facility] Wnposzanof9[address] [place] Glucose mass conc 100 mg/dL Normal 74-106 The [facility] Comment on above: Performed By: #### B MP, LIPA, LIVER, CMADM ####[facility] Rsaigeptsu4148 [address] [place] Potassium molar conc 4.0 mmol/L Normal 3.4-5.0 [facility] Comment on above: Performed By: #### B MP, LIPA, LIVER, CMADM ####[facility] Bdelckhfvz4576 [place], [place] [address]e [place] Sodium 142 mmol/L Normal 137-145 [facility] Comment on above: Performed By: #### B MP, LIPA, LIVER, CMADM ####[facility] Hvfobhrcbz7130 [place], [place] [address]Jksfiq [place] Urea nitrogen 13.0 mg/dL Normal 9.0-20.0 The [facility] Comment on above: Performed By: #### B MP, LIPA, LIVER, CMADM ####[facility] Zoexbmfyjz4735 [place], [place] [address]Xysoem [place] Vital Signs Date Time Vital Sign Value Performing Clinician Facility 01-29-2024 15:18-0400 Body height 175.3 cm Deep Babb MD Work Phone: [facility] 01-29-2024 15:18-0400 Body mass index (BMI) [Ratio] 25.55 kg/m2 Deep Babb MD Work Phone: [facility] 01-29-2024 15:18-0400 Body weight 78.47 kg Deep Babb MD Work Phone: [facility] 01-29-2024 15:18-0400 Diastolic blood pressure 82 mm[Hg] Deep Babb MD Work Phone: [facility] 01-29-2024 15:18-0400 Heart rate 81 /min Deep Babb MD Work Phone: [facility] 01-29-2024 15:18-0400 SaO2% (BldA) [Mass fraction] 98 % Deep Babb MD Work Phone: [facility] 01-29-2024 15:18-0400 Systolic blood pressure 133 mm[Hg] Deep Babb MD Work Phone: [facility] 12-30-2023 08:06-0400 Body height 172.7 cm Deep Babb MD Work Phone: [facility] 12-30-2023 08:06-0400 Body mass index (BMI) [Ratio] 25.85 kg/m2 Deep Babb MD Work Phone: [facility] 12-30-2023 08:06-0400 Body weight 77.11 kg Deep Babb MD Work Phone: [facility] 12-30-2023 08:06-0400 Diastolic blood pressure 86 mm[Hg] Deep Babb MD Work Phone: [facility] 12-30-2023 08:06-0400 Heart rate 105 /min Deep Babb MD Work Phone: [facility] 12-30-2023 08:06-0400 SaO2% (BldA) [Mass fraction] 97 % Deep Babb MD Work Phone: [facility] 12-30-2023 08:06-0400 Systolic blood pressure 148 mm[Hg] Deep Babb MD Work Phone: [facility] 03-31-2023 16:45-0400 Body temperature 98.06 [degF] Ramón Carrizales [facility] 03-31-2023 16:45-0400 Diastolic blood pressure 86 mm[Hg] Ramón Carrizales [facility] [place] 03-31-2023 16:45-0400 Heart rate 80 /min Ramón Carrizales [facility] 03-31-2023 16:45-0400 Respiratory rate 16 /min Ramón Carrizales [facility] 03-31-2023 16:45-0400 SaO2% (BldA) [Mass fraction] 98 % Ramón Carrizales [facility] [place] 03-31-2023 16:45-0400 Systolic blood pressure 136 mm[Hg] Ramón Carrizales [facility] [place] 09-30-2022 21:22-0500 Diastolic blood pressure 83 mm[Hg] Junior Idalmis [facility] [place] 09-30-2022 21:22-0500 Heart rate 90 /min Junior Idalmis [facility] [place] 09-30-2022 21:22-0500 Mean blood pressure 97 mm[Hg] Junior Idalmis [facility] [place] 09-30-2022 21:22-0500 Respiratory rate 19 /min Junior Idalmis [facility] [place] 09-30-2022 21:22-0500 SaO2% (BldA) [Mass fraction] 100 % Junior Idalmis [facility] [place] 09-30-2022 21:22-0500 Systolic blood pressure 124 mm[Hg] Junior Idalmis [facility] [place] 09-30-2022 20:01-0500 Body temperature 98.24 [degF] Junior Idalmis [facility] [place] 09-30-2022 20:01-0500 Diastolic blood pressure 100 mm[Hg] Junior Idalmis [facility] [place] 09-30-2022 20:01-0500 Heart rate 100 /min Junior Idalmis [facility] [place] 09-30-2022 20:01-0500 Respiratory rate 18 /min Junior Idalmis [facility] [place] 09-30-2022 20:01-0500 SaO2% (BldA) [Mass fraction] 99 % Junior Idalmis [facility] [place] 09-30-2022 20:01-0500 Systolic blood pressure 133 mm[Hg] Junior Idalmis [facility] [place] 08-11-2022 08:34-0500 Body temperature 97.59 [degF] Chavez Chirri DO Work Phone: [facility] [employer] 08-11-2022 08:34-0500 Diastolic blood pressure 86 mm[Hg] [facility] 08-11-2022 08:34-0500 Heart rate 70 /min Chavez [facility]irri DO [facility] 08-11-2022 08:34-0500 Respiratory rate 16 /min Chavez Chirri DO Work Phone: [facility] [employer] 08-11-2022 08:34-0500 SaO2% (BldA) [Mass fraction] 97 % Chavez Chirri DO Work Phone: [facility] [employer] 08-11-2022 08:34-0500 Systolic blood pressure 137 mm[Hg] Chavez [facility]irri DO [facility] 08-07-2022 15:24-0500 Body height 172.7 cm Chavez [facility]irri DO [facility] 08-07-2022 15:24-0500 Body mass index (BMI) [Ratio] 26.95 kg/m2 Chavez Chirri DO [facility] 08-07-2022 15:24-0500 Body weight 80.4 kg Chavez Chirri DO [facility] 02-02-2022 06:32-0400 Body temperature 98.01 [degF] [facility] 06:32-0400 Diastolic blood pressure 82 mm[Hg] [facility] 02-02-2022 06:32-0400 Heart rate 96 /min [facility] 02-02-2022 06:32-0400 Respiratory rate 18 /min [facility] 02-02-2022 06:32-0400 SaO2% (BldA) [Mass fraction] 98 % [facility] 02-02-2022 06:32-0400 Systolic blood pressure 128 mm[Hg] [facility] Encounters Encounter Date Encounter Type Care Provider Facility Start: 09-30-2024 End: 10-02-2024 [facility] Ana Garcia PhD Work Phone: Neurology Comment on above: 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); Functional 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 Start: 09-11-2024 End: 09-14-2024 [facility] Ana Garcia PhD Work Phone: Neurology Comment on above: 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) Start: 09-04-2024 End: 09-07-2024 [facility] Ana Garcia PhD Work Phone: Neurology Comment on above: 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) Start: 08-28-2024 End: 08-28-2024 [facility] Ana Garcia PhD Work Phone: Neurology Comment on above: 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) Start: 08-21-2024 End: 08-24-2024 [facility] Ana Garcia PhD Work Phone: Neurology Comment on above: 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) Start: 08-14-2024 End: 08-16-2024 [facility] Ana Garcia PhD Work Phone: Neurology Comment on above: 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) Start: 08-07-2024 End: 08-10-2024 [facility] Ana Garcia PhD Work Phone: Neurology Comment on above: 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) Start: 07-31-2024 End: 07-31-2024 [facility] Ana Garcia PhD Work Phone: Neurology Comment on above: 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) Start: 07-27-2024 End: 07-28-2024 Chiki Hale PA-C Work Phone: Neurology Comment on above: Refill Request Start: 06-30-2024 End: 06-30-2024 [facility] Ana Arturo Garcia PhD Work Phone: Neurology Comment on above: 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 600 mg twice daily and Lamictal 300 mg twice daily. LTME was recommended to capture and characterize her typical spells. Patient presented to [facility] on 08/07/2022 for inpatient LTME. HOSPITAL [...] to ensure the accuracy of this automated educational sign language interpreter, some errors in educational sign language interpreter may have occurred. Associated attestation - Chavez [...] Rosa, 08/09/2022 5:17 PM * Kayden Collado RN RESOURCE NURSE - GEGE - 2022 11:57 AM EST [...] Hefollows up with his own neurologist in [place] and has been taking Trileptal 600 mg twice daily and Lamictal 300 mg twice daily. LTME was recommended to capture and characterize her typical spells. Patient presented to [facility] on 08/07/2022 for inpatient LTME. HOSPITAL [...] to ensure the accuracy of this automated educational sign language interpreter, some errors in educational sign language interpreter may have occurred. * Tisha Peters - 08/07/2022 5:32 PM EST ALTM started documented in this encounterBON WESTSIDE HOSPITAL– LOS ANGELESRampRate Sourcing Advisors Work Phone: 1(722) 485-655209-15-2022 NoteSperm Rapid ProgressiveSeptember 2021 9:00amTNPTest not performedAcmc Healthcare System [address] [facility] [address]WugeekbgqHolzer Medical Center – JacksonComment on above:Test not [id number] NoteSperm Non-ProgressiveSeptember 2021 9:00amTNPTest not performedAcmc Healthcare System [address] [facility] [address]VzkcjauniHolzer Medical Center – JacksonComment on above:Test not [id number] History of Present illness Narrative* Maritza Romo MD - 02/02/2022 6:12 AM EDT Images from the original note were not included. EMERGENCY TRIAGE, TREAT AND TRANSPORT (ET3) DOCUMENTATION OF TELEHEALTH VISIT Date / Time: 02/02/2022599 Name: Corey Alonso : 1995 SSN: [id number] EMS Agency: [facility] [x] Verbal consent obtained [...] by: Maritza Romo MD documented in this [id number] Miscellaneous Notes* Telephone Encounter - Won Huerta MD - 11/23/2021 5:27 PM EDT Called to discuss results Remains azoospermic - suspected obstructive process Discussed next steps - TESE with IVF He will consider this and let us know All questions answered RTC prn Won Huerta MD, PhD [facility]2022 NoteHNO ID: [id number] Author: Tung Macias MD Service: Anesthesiology Author Type: Anesthesiologist Type: Anesthesia Procedure Notes Filed: 09/01/2021 6:32 AM Note Text: ANESTHESIOLOGY PROCEDURE NOTE Airway General Information Procedure Start Time/Medication Administration: 08/31/2021 1:10 PM Patient location during procedure: OR Timeout Performed Pre-procedure: timeout performed Consent Obtained: Yes Patient identity confirmed: arm band and patient Staffing Anesthesiologist: Tung Macias MD GOLD BEATER: Rubi Javier APRN.GOLD BEATER Performed by: GOLD BEATER Indications and Patient Condition Preoxygenated: yes Patient position: sniffing Manual In-Line Stabilization: No Difficult Mask: No Indications for airway management: anesthesia anesthesia circuit Method: asleep Cricoid Pressure: No Final Airway Details Final airway type: supraglottic airway Number of attempts at approach: 1 Final Supraglottic Airway: Size 1 Seal Adequate: yes Failed airway: no Unrecognized esophageal intubation: no Airway not difficult SIGNATURE: Rubi Javier APRN.GOLD BEATER PATIENT NAME: Corey Alonso III DATE: August 31, 2021 TIME: 1:16 PM [facility]N: [id number]* Diagnosis Seizure (HCC)- Primary Other convulsions documented in this encounter [facility] noteNo assessment information availableAcmc Healthcare System Work Phone: Evaluation note* Diagnosis Partial symptomatic epilepsy with complex partial seizures, intractable, without status epilepticus (HCC)- Primary Seizure-like activity (HCC) Other convulsions documented in this encounter [facility] Work Phone: evaluation note* Diagnosis Seizure (HCC)- Primary Other convulsions [facility]* Diagnosis Seizure (HCC)- Primary Other convulsions Anxiety Anxiety state, unspecified Recurrent major depressive disorder, in partial remission (HCC) documented in this encounter [facility] note* Diagnosis Psychogenic nonepileptic seizure- Primary documented in this encounter [facility] note* Diagnosis Seizure (HCC)- Primary Other convulsions [facility]* Diagnosis Seizure-like activity (HCC)- Primary Other convulsions [facility]* Diagnosis Seizure-like activity (HCC)- Primary Other convulsions [facility]* Diagnosis Seizure (HCC) Other convulsions [facility]* Diagnosis Pre-op evaluation- Primary Preoperative examination, unspecified Azoospermia Cryptogenic localization-related epilepsy (HCC) Localization-related (focal) (partial) epilepsy and epileptic syndromes with simple partial seizures, without mention of intractable epilepsy Psychogenic nonepileptic seizure documented in this encounter [facility] note* Diagnosis Pre-op evaluation- Primary Preoperative examination, unspecified Azoospermia Cryptogenic localization-related epilepsy (HCC) Localization-related (focal) (partial) epilepsy and epileptic syndromes with simple partial seizures, without mention of intractable epilepsy Psychogenic nonepileptic seizure- Primary Seizure-like activity (HCC) Other convulsions [facility] Pre-op evaluation- Primary Preoperative examination, unspecified Azoospermia Cryptogenic localization-related epilepsy (HCC) Localization-related (focal) (partial) epilepsy and epileptic syndromes with simple partial seizures, without mention of intractable epilepsy Functional 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 Conversion disorder [facility]* Diagnosis Pre-op evaluation- Primary Preoperative examination, unspecified Azoospermia Cryptogenic localization-related epilepsy (HCC) Localization-related (focal) (partial) epilepsy and epileptic syndromes with simple partial seizures, without mention of intractable epilepsy Seizure-like activity (HCC) Other convulsions [facility]* Diagnosis Pre-op evaluation- Primary Preoperative [...] Primary Conversion disorder [facility]* Diagnosis Pre-op evaluation- Primary Preoperative examination, unspecified Azoospermia Cryptogenic localization-related epilepsy (HCC) Localization-related (focal) (partial) epilepsy and epileptic syndromes with simple partial seizures, without mention of intractable epilepsy Functional 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 Conversion disorder [facility]* Diagnosis Pre-op evaluation- Primary Preoperative examination, unspecified Azoospermia Cryptogenic localization-related epilepsy (HCC) Localization-related (focal) (partial) epilepsy and epileptic syndromes with simple partial seizures, without mention of intractable epilepsy Functional 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 Conversion disorder [facility]* Diagnosis Pre-op evaluation- Primary Preoperative examination, unspecified Azoospermia Cryptogenic localization-related epilepsy (HCC) Localization-related (focal) (partial) epilepsy and epileptic syndromes with simple partial seizures, without mention of intractable epilepsy Functional 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 Conversion disorder documented in this encounter [facility] note* Diagnosis Pre-op evaluation- Primary Preoperative examination, unspecified Azoospermia Cryptogenic localization-related epilepsy (HCC) Localization-related (focal) (partial) epilepsy and epileptic syndromes with simple partial seizures, without mention of intractable epilepsy 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 Mood disorder in conditions classified elsewhere documented in this encounter [facility] note* Diagnosis Pre-op evaluation- Primary Preoperative examination, unspecified Azoospermia Cryptogenic localization-related epilepsy (HCC) Localization-related (focal) (partial) epilepsy and epileptic syndromes with simple partial seizures, without mention of intractable epilepsy Functional 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 Conversion disorder documented in this encounter [facility] note* Diagnosis Pre-op evaluation- Primary Preoperative examination, unspecified Azoospermia Cryptogenic localization-related epilepsy (HCC) Localization-related (focal) (partial) epilepsy and epileptic syndromes with simple partial seizures, without mention of intractable epilepsy 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 Mood disorder in conditions classified elsewhere Functional 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 Conversion disorder documented in this encounter [facility] course Narrative No data available for this section [facility] No data available for this section [facility] for [facility] (narrative)* Outpatient Procedure (Routine) - Pending Review Specialty Diagnoses / Procedures Referred By Randy gupta Referred To Contact [facility] Diagnoses Seizure (HCC) Procedures EPIL EEG LEAD PLACEMENT EEG EXTENDED MONITORING 61-119 MINUTES ELECTROENCEPHALOGRAM REC COMA/SLEEP ONLY Shandra Berman APRN.CNP [address] [place] [address] [facility] [address] [place] [address] Referral ID Status Reason Start Date Expiration Date Visits Requested Visits Authorized [id number] Pending Review Auto-Generat ed Referral 11/13/2023 11/12/2024 1 1 [facility] Summary Purpose Family History No Family History Records FoundNo Family History Records FoundNo Family History Records FoundNo Family History Records FoundNo Family History Records FoundNo Family History Records FoundNo Family History Records FoundNo Family History Records FoundNo Family History Records Found Advance Directives No Advanced Directives Records FoundDocuments on File Type Date Recorded 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 Advance Directive(s) 07/17/2021 12:20 PM [...] STEM W/O CONTRAST MATERIAL Shandra Higgins PA-C [address] [place] [address] [facility] [place] [address] Referral ID Status Reason Start Date Expiration Date Visits Requested Visits Authorized [id number] Pending Review Auto-Generat ed Referral 01/02/2024 01/31/2025 1 1 Specialty Diagnoses / Procedures Referred By Randy gupta Referred To Contact Psychology Diagnoses Psychogenic nonepileptic seizure Procedures CONSULT TO PSYCHOLOGY OFFICE/OUTPATIENT [facility] 60 MINUTES Shandra Higgins PA-C [address] [place] [address] Referral ID Status Reason Start Date Expiration Date Visits Requested Visits Authorized [id number] Pending Review PCP Requested Referral 01/02/2024 01/01/2025 [...] DATE CREATED AUTHOR AUTHOR'S ORGANIZ ATION 09/01/2021 [facility] DATE CREATED AUTHOR AUTHOR'S ORGANIZ ATION 12/05/2021 [facility] DATE CREATED AUTHOR AUTHOR'S ORGANIZ ATION 02/15/2022 [facility] DATE CREATED AUTHOR AUTHOR'S ORGANIZ ATION 04/27/2022 [facility] DATE CREATED AUTHOR AUTHOR'S ORGANIZ ATION 09/26/2022 [facility] DATE CREATED AUTHOR AUTHOR'S ORGANIZ ATION 03/31/2023 Anglin Edgar [facility] DATE CREATED AUTHOR AUTHOR'S ORGANIZ ATION 05/31/2023 [facility] DATE CREATED AUTHOR AUTHOR'S ORGANIZ ATION 10/04/[address] [facility] Source Comments (unrecognize d section and content) In the event this informatio n is protected by the Federal Confidentiality of Alcohol and Drug Abuse Patient Records regulations: The Federal rules restrict any use of the information to criminally investigate or prosecute any alcohol or drug abuse patient.[facility] the event this information is protected by the Federal Confidentiality of Alcohol and Drug Abuse Patient Records regulations: The Federal rules restrict any use of the information to criminally investigate or prosecute any alcohol or drug abuse patient.[facility] the event this information is protected by the Federal Confidentiality of Alcohol and Drug Abuse Patient Records regulations: The Federal rules restrict any use of the information to criminally investigate or prosecute any alcohol or drug abuse patient.[facility] the event this information is protected by the Federal Confidentiality of Alcohol and Drug Abuse Patient Records regulations: The Federal rules restrict any use of the information to criminally investigate or prosecute any alcohol or drug abuse patient.[facility] the event this information is protected by the Federal Confidentiality of Alcohol and Drug Abuse Patient Records regulations: The Federal rules restrict any use of the information to criminally investigate or prosecute any alcohol or drug abuse patient.[facility] the event this information is protected by the Federal Confidentiality of Alcohol and Drug Abuse Patient Records regulations: The Federal rules restrict any use of the information to criminally investigate or prosecute any alcohol or drug abuse patient.[facility] the event this information is protected by the Federal Confidentiality of Alcohol and Drug Abuse Patient Records regulations: The Federal rules restrict any use of the information to criminally investigate or prosecute any alcohol or drug abuse patient.[facility] the event this information is protected by the Federal Confidentiality of Alcohol and Drug Abuse Patient Records regulations: The Federal rules restrict any use of the information to criminally investigate or prosecute any alcohol or drug abuse patient.[facility] the event this information is protected by the Federal Confidentiality of Alcohol and Drug Abuse Patient Records regulations: The Federal rules restrict any use of the information to criminally investigate or prosecute any alcohol or drug abuse patient.[facility] the event this information is protected by the Federal Confidentiality of Alcohol and Drug Abuse Patient Records regulations: The Federal rules restrict any use of the information to criminally investigate or prosecute any alcohol or drug abuse patient.[facility] the event this information is protected by the Federal Confidentiality of Alcohol and Drug Abuse Patient Records regulations: The Federal rules restrict any use of the information to criminally investigate or prosecute any alcohol or drug abuse patient.[facility] the event this information is protected by the Federal Confidentiality of Alcohol and Drug Abuse Patient Records regulations: The Federal rules restrict any use of the information to criminally investigate or prosecute any alcohol or drug abuse patient.[facility] the event this information is protected by the Federal Confidentiality of Alcohol and Drug Abuse Patient Records regulations: The Federal rules restrict any use of the information to criminally investigate or prosecute any alcohol or drug abuse patient.[facility] the event this information is protected by the Federal Confidentiality of Alcohol and Drug Abuse Patient Records regulations: The Federal rules restrict any use of the information to criminally investigate or prosecute any alcohol or drug abuse patient.[facility] the event this information is protected by the Federal Confidentiality of Alcohol and Drug Abuse Patient Records regulations: The Federal rules restrict any use of the information to criminally investigate or prosecute any alcohol or drug abuse patient.[facility] the event this information is protected by the Federal Confidentiality of Alcohol and Drug Abuse Patient Records regulations: The Federal rules restrict any use of the information to criminally investigate or prosecute any alcohol or drug abuse patient.[facility] the event this information is protected by the Federal Confidentiality of Alcohol and Drug Abuse Patient Records regulations: The Federal rules restrict any use of the information to criminally investigate or prosecute any alcohol or drug abuse patient.[facility] the event this information is protected by the Federal Confidentiality of Alcohol and Drug Abuse Patient Records regulations: The Federal rules restrict any use of the information to criminally investigate or prosecute any alcohol or drug abuse patient.[facility] the event this information is protected by the Federal Confidentiality of Alcohol and Drug Abuse Patient Records regulations: The Federal rules restrict any use of the information to criminally investigate or prosecute any alcohol or drug abuse patient.[facility] the event this information is protected by the Federal Confidentiality of Alcohol and Drug Abuse Patient Records regulations: The Federal rules restrict any use of the information to criminally investigate or prosecute any alcohol or drug abuse patient.[facility] the event this information is protected by the Federal Confidentiality of Alcohol and Drug Abuse Patient Records regulations: The Federal rules restrict any use of the information to criminally investigate or prosecute any alcohol or drug abuse patient.[facility] the event this information is protected by the Federal Confidentiality of Alcohol and Drug Abuse Patient Records regulations: The Federal rules restrict any use of the information to criminally investigate or prosecute any alcohol or drug abuse patient.[facility] the event this information is protected by the Federal Confidentiality of Alcohol and Drug Abuse Patient Records regulations: The Federal rules restrict any use of the information to criminally investigate or prosecute any alcohol or drug abuse patient.[facility] the event this information is protected by the Federal Confidentiality of Alcohol and Drug Abuse Patient Records regulations: The Federal rules restrict any use of the information to criminally investigate or prosecute any alcohol or drug abuse patient.[facility] the event this information is protected by the Federal Confidentiality of Alcohol and Drug Abuse Patient Records regulations: The Federal rules restrict any use of the information to criminally investigate or prosecute any alcohol or drug abuse patient.[facility] the event this information is protected by the Federal Confidentiality of Alcohol and Drug Abuse Patient Records regulations: The Federal rules restrict any use of the information to criminally investigate or prosecute any alcohol or drug abuse patient.[facility] Reason for Visit (unrecogniz ed section and content) Reason Comments Results Reason Comments Seizures Specialty Diagnoses / Procedures Referred By Contac t Referred To Contact Diagnoses Partial symptomatic epilepsy with complex partial seizures, intractable, without status epilepticus (HCC) Seizure-like activity (HCC) partial symptomatic epilepsy w/ complex partial seizures intractable w/o status epilepticus needing LTME Chirri, Chavez, DO [address] [place] [address] [facility] [address] [place] [address] Referral ID Status Reason Start Date Expiration Date Visits Re quested Visits Authorized [id number] 1 1 Reason Comments Future Appointment [place], [place] Reason Comments New Patient Specialty Diagnoses / Procedures Referred By Contac t Referred To Contact HOSP INPATIENT Diagnoses Unspecified convulsions Procedures EEG PHYS/QHP EA INCR>12HR<26HR AFTER 24HR W/VEEG [facility] [address] [place] [address] Referral ID Status Reason Start Date Expiration Date Visits Re quested Visits Authorized [id number] 1 1 Reason Comments Other Reason Comments Established Patient Follow Up Reason Comments Seizures Reason Comments Medication Problem Lamotrigine Specialty Diagnoses / Procedures [facility] To Contact MR IMAGING Diagnoses Seizure (HCC) Procedures MRI BRAIN WO IVCON MRI BRAIN BRAIN STEM W/O CONTRAST MATERIAL Shandra Higgins PA-C [address] [place] [address] [place] [address] Referral ID Status Reason Start Date Expiration Date V isits Requested Visits Authorized [id number] Closed Auto-Generate d Referral 02/03/2024 03/04/2024 1 1 Reason Comments New Specialty Diagnoses / Procedures Referred By Contac t Referred To Contact Psychology Diagnoses Psychogenic nonepileptic seizure Procedures CONSULT TO PSYCHOLOGY OFFICE/OUTPATIENT NEW HIGH MDM 60 MINUTES Shandra Higgins PA-C [address] [place] [address] Referral ID Status Reason Start Date Expiration Date Visits Requested Visits Authorized [id number] Pending Review PCP Requested Referral 01/02/2024 01/01/2025 1 1 Reason Comments Follow Up Seizures Followup visit Reason Comments Social Work Services Reason Comments Refill Request Reason Comments Follow Up Care Teams (unrecognized sec tion and content) 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 Relationship Specialty Start Date End Date Emeli Chi CNP [address] [place] [id number] PCP - General Internal Medicine 07/17/21 Team Status: Inactive Member Role Status Dates TAQUERIA Courtney Primary Care Provider Active Derek Burks Attending Provider Active Team Status: Active Member Role Status Dates Emeli Chi NP-Priyank Primary Care Provider Active 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 Relationship Specialty Start Date End Date Emeli Chi [address] [place] [address] PCP - General 11/16/21 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 Relationship Specialty Start Date End Date Emeli Chi CNP [address] [place] [address] PCP - General Internal Medicine 07/17/21 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 Relationship Specialty Start Date End Date Emeli Chi CNP [address] [place] [address] PCP - General Internal Medicine 07/17/21 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 Relationship Specialty Start Date End Date Emeli Chi CNP [address] [place] [id number] PCP - General Internal Medicine 07/17/21 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 Relationship Specialty Start Date End Date Emeli Chi CNP [address] [place] [address] PCP - General Internal Medicine 07/17/21 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 Relationship Specialty Start Date End Date Emeli Chi CNP [address] [place] [address] PCP - General Internal Medicine 07/17/21 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 Relationship Specialty Start Date End Date Emeli Chi CNP [address] [place] [id number] PCP - General Internal Medicine 07/17/21 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 Relationship Specialty Start Date End Date Emeli Chi CNP [address] [place] [id number] PCP - General Internal Medicine 07/17/21 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 Relationship Specialty Start Date End Date Emeli Chi CNP [address] [place] [id number] PCP - General Internal Medicine 07/17/21 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 Relationship Specialty Start Date End Date Emeli Chi CNP [address] [place] [id number] PCP - General Internal Medicine 07/17/21 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 Relationship Specialty Start Date End Date Emeli Chi CNP [address] [place] [id number] PCP - General Internal Medicine 07/17/21 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 Relationship Specialty Start Date End Date Emeli Chi CNP [address] [place] [address] PCP - General Internal Medicine 07/17/21 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 Relationship Specialty Start Date End Date Emeli Chi CNP [address] [place] [id number] PCP - General Internal Medicine 07/17/21 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 Relationship Specialty Start Date End Date Emeli Chi CNP [address] [place] [address] PCP - General Internal Medicine 07/17/21 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 Relationship Specialty Start Date End Date Emeli Chi CNP [address] [place] [address] PCP - General Internal Medicine 07/17/21 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 Relationship Specialty Start Date End Date Emeli Chi CNP [address] [place] [address] PCP - General Internal Medicine 07/17/21 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 Relationship Specialty Start Date End Date Emeli Chi CNP [address] [place] [id number] PCP - General Internal Medicine 07/17/21 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 [employer] provides no warranty or guarantee of the accuracy or completeness of information in this document.
--- NOTE | 2025-01-14 17:54 | ED.GENADUL1 ---
HPI HPI - General Adult General Chief complaint: Dental/Oral Stated complaint: TROUBLE HEARING OUT OF RIGHT EAR, SARAH BENZ Time Seen by Provider: 01/14/25 17:04 Source: patient Mode of arrival: walk-in Limitations: no limitations History of Present Illness HPI narrative: The patient is a 29-year-old male who presents to the emergency department today for evaluation of concerns for reduced hearing out of his right ear and pain to his tongue. He endorses he has a history of seizures and had 5 seizures on 01/11. He states he did bite his tongue at that time. He reports since then he has had some pain to his tongue. He additionally mentions for the past few days he has had some reduced hearing to his right ear. He denies any trauma/injuries. No sick symptoms including fever/chills or cough/cold. Sore throat. No seizure episodes. Related Data Home Medications ?Medication ?Instructions ?Recorded ?Confirmed oxcarbazepine 600 mg tablet 600 mg PO BID 02/05/23 01/14/25 lamotrigine 25 mg tablet 50 mg PO BID 10/10/24 01/14/25 levetiracetam 250 mg tablet 250 mg PO BID 10/10/24 01/14/25 omeprazole 20 mg capsule,delayed 20 mg PO .before meal 10/10/24 01/14/25 release vilazodone 20 mg tablet 20 mg PO .once daily 10/10/24 01/14/25 Allergies Allergy/AdvReac Type Severity Reaction Status Date / Time No Known Drug Allergies Allergy Verified 01/14/25 16:42 Opioid HPI Opioid Management Most Recent Opioid Data: Last Pain Scale 6 01/11/25, 17:19 Last MAR Pain Assessment 01/11/25, 17:19 Ur Phencyclidine Scrn, (NEGATIVE) Negative 10/27/23, 23:41 Review of Systems ROS Status of ROS 10 or more systems reviewed and unremarkable except as noted in history and below [facility] Medical History (Updated 01/14/25 @ 17:57 by Debra Quinn NP) Epilepsy ?G40.909 - Epilepsy, unspecified, not intractable, without status epilepticus (ICD-10) Social History Smoking status: Unknown if ever smoked Little interest or pleasure in doing things: not at all Feeling down, depressed, or hopeless: not at all Exam Narrative Exam Narrative: Constituational: Awake/ alert, no apparent distress, well hydrated HENMT: normocephalic, moist oral mucous membranes and oropharynx normal, +aphthous ulcer x2 tongue, internal/external ears normal, Eyes: EOMI and conjunctivae normal Neck: ROM intact Chest: inspection of chest normal Respiratory: Normal respiratory effort, clear to auscultation bilaterally Cardio: regular rate and regular rhythm GI: soft to palpation and non-tender Back: nontender MSK: ROM intact, +NVI Skin: no rashes or petechiae Neuro: no focal deficits Psych: mental status grossly normal Constitutional Vital Signs, click to edit/add: Last Vital Signs Temp 97.9 F 01/14/25 16:38 Pulse 77 01/14/25 16:38 Resp 16 01/14/25 16:38 BP 146/85 H 01/14/25 16:38 Pulse Ox 97 01/14/25 16:38 Course Vital Signs Vital signs: Vital Signs Temperature 97.9 F 01/14/25 16:38 Pulse Rate 77 01/14/25 16:38 Respiratory Rate 16 01/14/25 16:38 Blood Pressure 146/85 H 01/14/25 16:38 Pulse Oximetry 97 01/14/25 16:38 Temperature 97.9 F 01/14/25 16:38 Pulse Rate 77 01/14/25 16:38 Respiratory Rate 16 01/14/25 16:38 Blood Pressure 146/85 H 01/14/25 16:38 Pulse Oximetry 97 01/14/25 16:38 Medical Decision Making [facility] Narrative Medical decision making narrative: Patient is a well-appearing 29-year-old male who presented to the emergency department today for evaluation concerns for reduced hearing to his right ear and pain to his tongue. Initial examination patient with clinical evidence with aphthous ulcers to tongue. Endorsed he had felt some swelling to his tongue and attributed this to biting his tongue due to seizure activity 3 days prior. This time does not seem swollen or obviously injured on exam. No evidence of angioedema or Keo angina present. Does not have any evidence of otitis present on exam. Strictly patient states he wears earphones while working. Advised on monitoring volume to reduce the risk for hearing loss. Patient was provided referral for ENT for reevaluation and additionally discussed recommendations for supportive care of symptoms and the above. Discussed signs and symptoms of any worsening condition and when to consider reevaluation by the emergency department. Patient verbalized an understanding of this and is agreeable with the plan to be discharged home. Medical Records Medical records reviewed: Yes I reviewed the patient's medical records Discharge Plan Discharge Chief Complaint: Dental/Oral Clinical Impression: Aphthous ulcer of mouth, Hearing decreased Patient Disposition: Home, Self-Care Prescriptions / Home Meds: No Action oxcarbazepine 600 mg tablet 600 mg PO BID lamotrigine 25 mg tablet 50 mg PO BID levetiracetam 250 mg tablet 250 mg PO BID omeprazole 20 mg capsule,delayed release(DR/EC) 20 mg PO .before meal vilazodone 20 mg tablet 20 mg PO .once daily Print Language: Nepali Additional Instructions: May take Tylenol or ibuprofen as needed for any pain. Recommend avoiding any salty, sweet, spicy, or sour foods that may aggravate the sores in your mouth. Recommend soft and cool foods. In regards to your hearing please follow-up with ENT for reevaluation as discussed. Referrals: Nicolette Pressley MD [Physician, Ear, Nose, Throat] - 1 week MANNY CHI [Primary Care Provider, Family Practice] - 1 week
[2025-01-14 18:26] VITALS: BP 134/88; PULSE 70; O2SAT 98
== END 2025-01-14 18:26 | disposition home or self-care (01) ==
PROVIDERS: Emergency Provider Emergency Medicine; PCP Nurse Practitioner Family
DX: K12.0 Recurrent oral aphthae (principal); H91.8X1 Other specified hearing loss, right ear; G40.909 Epilepsy, unspecified, not intractable, without status epilepticus
CPT/HCPCS: 99281

== ENCOUNTER 2025-02-02 20:24 | Emergency (ER) | payer OTHER, SELFPAY ==
--- OUTSIDE RECORDS SUMMARY | 2023-09-09 10:41 | XMS_ITS ---
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 Name Role Phone Emeli Barber Primary Care Provider [phone] EMELI BARBER Unavailable [phone] REASON FOR VISIT update med list Medications Medication SIG (Take, Route, Frequency, Duration) Notes Start Date End Date Status Aspirin Adult Low Dose 81 MG 2 tablet Or ally Once a day Active lamoTRIgine 200 MG 2 tablet Orally twic e daily Active Ventolin HFA 108 (90 Base) MCG/ACT 2 puff Inhalation every 4 hrs as needed Active Vilazodone HCl 20 MG Oral for 30 Days Active OXcarbazepine 600 MG 1 tablet Orally Twi ce a day for 30 days Active Encounters Encounter Location Date Provider Diagnosis [facility] [address] [place] [address] 09/09/2023 EMELI BARBER Plan Of Treatment No Information Progress Notes * Nando LOPEZDOB:1995 (28 yo M)Acc No.[id number]:09/09/2023 Patient: Nando Patten :1995 A ge:28 Y S ex:Male Address:[place] [address], [address] [place] [address], [id number] Subjective: * Chief Complaints: * U pdate med list * Medical History: * Surgical History: * Hospitalization/Major Diagno stic Procedure: * Medications: T akingAspirin Adult Low Dose(Aspirin) 81 MG Tablet Delayed Release 2 tablet Orally Once a daylamoTRIgine 200 MG Tablet 2 tablet Orally twice dailyOXcarbazepine 600 MG Tablet 1 tablet Orally Twice a dayVentolin HFA(Albuterol Sulfate HFA) 108 (90 Base) MCG/ACT Aerosol Solution 2 puff Inhalation every 4 hrs as neededVilazodone HCl 20 MG Tablet Oral Taking Aspirin Adult Low Dose(Aspirin) 81 MG Tablet Delayed Release 2 tablet Orally Once a dayTaking lamoTRIgine 200 MG Tablet 2 tablet Orally twice dailyTaking OXcarbazepine 600 MG Tablet 1 tablet Orally Twice a dayTaking Ventolin HFA(Albuterol Sulfate HFA) 108 (90 Base) MCG/ACT Aerosol Solution 2 puff Inhalation every 4 hrs as neededTaking Vilazodone HCl 20 MG Tablet Oral DiscontinuedlamoTRIgine 100 MG Tablet 1 tablet Orally twice daily, Notes: with 200mg tabletDiscontinued lamoTRIgine 100 MG Tablet 1 tablet Orally twice daily, Notes: with 200mg tablet Objective: Assessment: Plan: * Treatment: * Procedure Codes: * true * Date: Generated for Phillip france/Lisbeth/Javier on: 0 02/02/2025 08:29 PM EDT
--- OUTSIDE RECORDS SUMMARY | 2023-11-01 05:43 | XMS_ITS ---
Author Organization The [facility] in [place] Address [address] [place] [address] Care Team Providers Care Transplant Rn Name Role Phone Emeli Barber Primary Care Provider EMELI BARBER Unavailable [phone] REASON FOR VISIT update from neuro Medications [...] Active Encounters Encounter Location Date Provider Diagnosis [facility] [address] [place] [address] 11/01/2023 EMELI BARBER Plan Of Treatment No Information Progress Notes * Nando LOPEZDOB:1995 (28 yo M)Acc No.[id number]:11/01/2023 Patient: Nando Patten :1995 A ge:28 Y S ex:Male Address:[place] [address] [address], [address] [place] [address] Subjective: * Chief Complaints: * U pdate [...]
--- OUTSIDE RECORDS SUMMARY | 2024-01-07 05:30 | XMS_ITS ---
Author Organization [facility] Servic es Address [address] [place] [address] Care Team Providers Care Director Of Programming Name Role Phone Sylvie Shelton Primary Care Provider Yanick Phelan [facility] [phone] REASON FOR VISIT FILLING Encounters Encounter Location Date Provider Diagnosis [facility] [address] [facility] [address] 01/07/2024 Yanick Phelan Plan Of Treatment No Information Progress Notes * COREY LOPEZDOB:1995 (29 yo M)Acc No.[id number]:01/07/2024 Patient: COREY LOPEZ Provider: Darien Parr DDS :1995 A ge:28 Y S ex:Male Date:01/07/2024 Address:[address] [place] [address], [address] Pcp:Sylvie Murphy Subjective: * Chief Complaints: * 1 . FILLING. * Medical History: Objective: * Vitals: Assessment: Plan: * Treatment: * Images: * Electronic signature of Chris Phelan on 02/02/2025 at 08:29 PM EDT Sign off status: Pending * Provider: Darien Parr DDS Date: 01/07/2024 Generated for Phillip france/Lisbeth/eTransmitting on: 02/02/2025 08:29 PM EDT
--- OUTSIDE RECORDS SUMMARY | 2024-01-24 05:30 | XMS_ITS ---
Author Organization [facility] Address [address] [place] [address] Care Team Providers Care Employee Representative Name Role Phone Sylvie Shelton Primary Care Provider REASON FOR VISIT RCT Encounters Encounter Location Date Provider Diagnosis [place] [address] [place] [address] 01/24/2024 Sylvie Francisco Plan Of Treatment No Information Progress Notes * COREY LOPEZDOB:1995 (29 yo M)Acc No.[id number]:01/24/2024 Patient: COREY LOPEZ Provider: Uzair FRANCISCO DDS :1995 A ge:28 Y S ex:Male Date:01/24/2024 Address:[address] [place] [address], [address] Subjective: * Chief Complaints: * 1 . RCT. * Medical History: Objective: * Vitals: Assessment: Plan: * Treatment: * Images: * Electronic signature of Winifred Francisco DDS on 02/02/2025 at 08:28 PM EDT Sign off status: Pending * Provider: Uzair FRANCISCO DDS Date: 01/24/2024 Generated for Printi ng/Faxing/eTransmitting on: 0 02/02/2025 08:28 PM EDT
--- OUTSIDE RECORDS SUMMARY | 2024-10-01 07:30 | XMS_ITS ---
Author Organization [facility] [place] Address [address] [place] [address] Care Team Providers Care Shovel Operator Name Role Phone Emeli Barber Primary Care Provider Allergies No Known Allergies REASON FOR VISIT yearly wellness exam needs meds refilled Medications Medication SIG (Take, Route, Frequency, Duration) Notes Start Date End Date Status Aspirin Adult Low Dose 81 MG 2 tablet Orally Once a day Active Omeprazole 20 MG 1 capsule 1/2 to 1 hour before morning meal Orally Once a day for 30 days 10/01/2024 Active lamoTRIgine 200 MG 1 tablet Orally twice daily 500mg BID Active Vilazodone HCl 20 MG as directed Oral Once a day for 30 days take 1/2 tablet po daily for 7 days than increase dose to 1 tablet po daily Active lamoTRIgine 25 MG 2 tablet Orally bid Active Ventolin HFA 108 (90 Base) MCG/ACT 2 puff Inhalation every 4 hrs as needed Active levETIRAcetam 250 MG 1 tablet Orally every 12 hrs Active OXcarbazepine 600 MG 1 tablet Orally Twice a day for 30 days Active Social History Tobacco Use: Social History Observation Description Date Details (start date - stop date) Never Smoker NA - NA Tobacco Control (Standard) Question Answer Notes Tobacco use: Nonsmoker AUDIT-C (Standard) Question Answer Notes Did you have a drink containing alcohol in the p ast year? No Points 0 Interpretation Negative Problems Problem Type SNOMED Code ICD Code Onset Dates Problem Status W/U Status Risk Notes Problem Recurrent major depression (28945939) Depression, recurrent (F33.9) Active confirmed Problem Gastroesophageal reflux disease (442016541) GERD (gastroesopha geal reflux disease) (K21.9) Active confirmed Vital Signs Weight 181 lbs 10/01/2024 Height 65 in 10/01/2024 Blood pressure systolic 112 mm Hg 10/02/19 25 Blood pressure diastolic 70 mm Hg 025 BMI 30.12 kg/m2 10/01/2024 Encounters Encounter Location Date Provider Diagnosis [facility] [address] [place] [address] 10/01/2024 Emeli Barber Depression, recurrent F33.9 and GERD (gastroesophageal reflux disease) K21.9 Assessments Encounter Date Diagnosis (ICD Code) Assessment Notes Treatment Notes Treatment Clinical Notes Section Notes 10/01/2024 Depression, recurrent (ICD-10 - F33.9) has been out of it helped in past, restart fu 1 m, prn consider counseling 10/01/2024 GERD (gastroesophag eal reflux disease) (ICD-10 - K21.9) 10/01/2024 Other work on healthy diet, discussed poor dentition, encouraged fu dentist Plan Of Treatment Medication Medication Name Sig Start Date Stop Date Notes Omeprazole 20 MG 1 capsule 1/2 to 1 hour before morning meal Orally Once a day for 30 days 10/01/2024 Vilazodone HCl 20 MG as directed Oral On ce a day for 30 days take 1/2 tablet po daily for 7 days than increase dose to 1 tablet po daily Ventolin HFA 108 (90 Base) MCG/ACT 2 puff Inhalation every 4 hrs as needed Treatment Notes Assessment Notes Depression, recurrent has been out of it helped in past, restart fu 1 m, prn consider counseling Other work on healthy diet, discussed poor dentition, encouraged fu dentist Next Appt Details Follow Up: 4 Weeks,prn, Reas on: Progress Notes * Chrissy LOPEZDOB:1995 (29 yo M)Acc No.[id number]:10/01/2024 Progress Note Patient: Juan Francisco LOPEZusama Cabrales Provider: Amari Barber ([facility]), [employer]UM TR[employer]PER :1995 A ge:29 Y S ex:Male Date:10/01/2024 Address:[address] [place], [place] [address] Check In:11:22 AM ESTCheck O ut:11:52 AM EST Subjective: * Chief Complaints: * 1 . Yearly wellness exam needs meds refilled. * HPI: G eneral: Josef Gould seeing neurology vilazodone refill out of relationship was in living with family mood ok having less seizure activity. D epression Screening: PHQ-2 (2015 Edition) L ittle interest or pleasure in doing things??Not at all F eeling down, depressed, or hopeless? N ot at all T otal Score 0 * ROS: G eneral/Constitutional: Depression a dmits. F ever d enies. H eadache d enies. W eight loss d enies. O phthalmologic: Discharge d enies. E ye Pain d enies. I tching and redness d enies. E NT: Nasal discharge d enies. N anabell congestion d enies.?Sore throat d enies. C ardiovascular: Chest tightness/ heavy pressure d enies. R apid heart rate d enies. S welling of extremities d enies. C hest pain d enies. ? R espiratory: Productive cough d enies. C hest pain d enies. C ough d enies. S hortness of breath d enies. W heezing d enies. ? G astrointestinal: Acid Reflux/GERD/Heartburn a dmits. A bdominal pain d enies. C onstipation d enies. D ecreased appetite d enies. D iarrhea d enies. N ausea d enies. V omiting d enies. G enitourinary: Urinary incontinence d enies. P ainful urination d enies. M usculoskeletal: Back pain d enies. N galo pain d enies. M uscle aches d enies. S kin: Rash d enies. S kin lesion(s) d enies. ? * Active Problem List Q60.0 Renal agenesis, unil ateral Modified On:01/23/2023W/U Status:confirmed R74.8 Elevated liver enzym es Modified On:01/23/2023W/U Status:confirmed J45.990 Exercise-induced ast hma Modified On:01/23/2023 Status:confirmed G40.209 Complex partial seiz ure Modified On:01/23/2023 Status:confirmed F33.2 Major depressive dis order, recurrent episode, severe Modified On:01/23/2023 Status:confirmed N50.9 Disorder of male gen ital organs Modified On:01/23/2023 Status:confirmed N46.9 Male infertility Modified On:01/23/2023 Status:confirmed J02.9 Acute pharyngitis, u nspecified Modified On:02/08/2023 Status:confirmed F41.9 Anxiety disorder, un specified Modified On:09/09/2023 Status:confirmed F32.A Depression, unspecif ied Modified On:09/09/2023 Status:confirmed R56.9 Seizure Modified On:09/20/2023 Status:confirmed F33.9 Depression, recurren t Modified On:10/01/2024 Status:confirmed K21.9 GERD (gastroesophage al reflux disease) Modified On:10/01/2024 Status:confirmed * Medical History: E levated liver enzymes, Complex partial seizure, Insomnia, Renal agenesis, unilateral, Disorder of male genital organs, Male infertility, Major depressive disorder, recurrent episode, severe, Exercise-induced asthma, Anejaculation, COVID-19, Absence of left kidney. * Family History: F ather: . M other: alive. S ister(s): alive. 1 sister(s) . . * Social History: T obacco Use: T obacco Control (Standard) T obacco use: N onsmoker D rug/Alcohol: A NUBIA-C (Standard) D id you have a drink containing alcohol in the past year? N o P oints 0 I nterpretation N egative * Medications: T aking Aspirin Adult Low Dose(Aspirin) 81 MG Tablet Delayed Release 2 tablet Orally Once a day , Taking lamoTRIgine 200 MG Tablet 1 tablet Orally twice daily , Notes to Pharmacist: 500mg BID, Taking lamoTRIgine 25 MG Tablet 2 tablet Orally bid , Taking levETIRAcetam 250 MG Tablet 1 tablet Orally every 12 hrs , Taking OXcarbazepine 600 MG Tablet 1 tablet Orally Twice a day , Taking Ventolin HFA(Albuterol Sulfate HFA) 108 (90 Base) MCG/ACT Aerosol Solution 2 puff Inhalation every 4 hrs as needed , Taking Vilazodone HCl 20 MG Tablet Oral , Medication List reviewed and reconciled with the patient * Allergies: N .K.D.A. Objective: * Vitals: W t:181lbs, Ht: 65 in, BP:112/70mm Hg, BMI:30.12Index, Ht-cm: 165.1 cm, Wt-k.1 kg. * Examination: G eneral Examinations: GENERAL APPEARANCE: a lert and oriented, i n no acute distress. EYES: c onjunctiva normal, sclera non-icteric. NOSE: n ormal external appearance. THROAT: p oor dentition missing teeth. LUNGS: c lear to auscultation bilaterally. CARDIO: r egular rate and rhythm, S1, S2 normal. ABDOMEN: s oft, nontender. MUSCULOSKELETAL: G ait and station normal. SKIN: w arm and dry. Assessment: * Assessment: 1. D epression, recurrent - F33.9 (Primary) 2 . G ERD (gastroesophageal reflux disease) - K21.9 Plan: * Treatment: 2. G ERD (gastroesophageal reflux disease) Start Omeprazole Capsule Delayed Release, 20 MG, 1 capsule 1/2 to 1 hour before morning meal, Orally, Once a day, 30 days, 30, Refills 2. 3. O thers Refill Ventolin HFA Aerosol Solution, 108 (90 Base) MCG/ACT, 2 puff, Inhalation, every 4 hrs as needed, 1, Refills 5. Notes: work on healthy diet, discussed poor dentition, encouraged fu dentist * Preventive Medicine: Screenings/Counseling: B TN ACTION PLAN Above Normal BMI Follow-up D ietary management education, guidance, and counseling * Follow Up: 4 Weeks,prn * * Sign off status: Completed Visit Status: C HK (Check Out) true * Provider: Amari Barber ([facility]), [employer] Date: 0 10/01/2024 Generated for Phillip france/Faxing/eTransmitting on: 0 02/02/2025 08:29 PM EDT History and Physical Notes * HPI (History of Present Illness) Category Sub-Category Detail Notes Category Not es General Rincon K seeing neurology vilazodone refill out of relationship was in living with family mood ok having less seizure activity Depression Screening PHQ-2 (2015 Edition) Little interest or pleasure in doing things?: Not at all Feeling down, depressed, or hopeless?: N ot at all Total Score: 0 Examination Category Sub-Category Detail Notes Category Not es General Examinations GENERAL APPEARANCE: alert a nd oriented, in no acute distress EYES: conjunctiva normal, sclera non-icteric EARS: NOSE: normal external appe arance THROAT: poor dentition ld ng teeth CARDIO: regular rate and rhy thm, S1, S2 normal LUNGS: clear to auscultatio n bilaterally ABDOMEN: soft, nontender SKIN: warm and dry BACK: MUSCULOSKELETAL: Gait and station nor mal LYMPH NODES:
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
[2025-02-02] VITALS (10 sets, daily range): BP systolic 114–140; BP diastolic 63–88; PULSE 72–104; TEMP 36.9; O2SAT 95–97; BMI 30.7
--- OUTSIDE RECORDS SUMMARY | 2025-02-02 20:28 | XMS_ITS | Encounter Summary ---
Author Organization [facility] Address [address] [place], [place] [id number] Care Team Providers Care Collar Starcher Name Role Phone Emeli Barber [place] Primary Care Provider + Source Comments In the event this information is protected by the Federal Confidentiality of Alcohol and Drug AbusePatient Records regulations: The Federal rules restrict any use of the information to criminally investigate or prosecute any alcohol or drug abuse patient.[facility] Encounter Details Date Type Department Care Team (Late st Contact Info) Description 08/28/2021 Patient Msg Urology [address] [address] Won Huerta MD [address] [address] Letter for work Social History Tobacco Use [...] on file 01/20/2021 Data from: [email or web address] Last address used for calculation Not [...] on filedocumented in this encounter Care Teams Collar Starcher Relationship Specialty Start Date End Date Emeli Barber, [place] [address] [place] [address] PCP - General Internal Medicine 07/17/21 documented as of this encounter
--- OUTSIDE RECORDS SUMMARY | 2025-02-02 20:28 | XMS_ITS | Encounter Summary ---
Author Organization [facility] Address [address] [place] [address] Care Team Providers Care Management Lecturer Name Role Phone Emeli Barber [place] Primary Care Provider + Source Comments In the event this information is protected by the Federal Confidentiality of Alcohol and Drug AbusePatient Records regulations: The Federal rules restrict any use of the information to criminally investigate or prosecute any alcohol or drug abuse patient.[facility] Encounter Details Date Type Department Care Team (Late st Contact Info) Description 08/30/2021 Get Medical Advice Urology [address] [place] [address] Domi Scruggs MD [address] [place] [address] Catheter Social History Tobacco Use Types Packs/Day [...] on file 01/20/2021 Data from: https://www.neighborhoodatlas.medicine.[facility].edu/. Last address used for calculation [...] on filedocumented in this encounter Care Teams Management Lecturer Relationship Specialty Start Date End Date Emeli Barber CNP [address] [place] [address] PCP - General Internal Medicine 07/17/21 documented as of this encounter
--- OUTSIDE RECORDS SUMMARY | 2025-02-02 20:28 | XMS_ITS | Encounter Summary ---
Author Organization [facility] Address [facility] [place] [address] Care Team Providers Care Buoy Tender Name Role Phone Emeli Barber [place] Primary Care Provider + Source Comments In the event this information is protected by the Federal Confidentiality of Alcohol and Drug AbusePatient Records regulations: The Federal rules restrict any use of the information to criminally investigate or prosecute any alcohol or drug abuse patient.[facility] Encounter Details Date Type Department Care Team (Late st Contact Info) Description 11/28/2023 Patient Msg Neurology [address] [phone] Provider, Ccf Admission Social History Tobacco Use [...] N ot on file 01/20/2021 Data from: https://www.neighborhoodatlas.medicine.[facility].edu/. Last address used for calculation [...] on filedocumented in this encounter Care Teams Buoy Tender Relationship Specialty Start Date End Date Emeli Barber CNP [address] [place] [address] PCP - General Internal Medicine 07/17/21 documented as of this encounter
--- OUTSIDE RECORDS SUMMARY | 2025-02-02 20:28 | XMS_ITS | Encounter Summary ---
Author Organization [facility] Address [facility] [place] [address] Care Team Providers Care Physical Testing Supervisor Name Role Phone Emeli Barber [place] Primary Care Provider + Source Comments In the event this information is protected by the Federal Confidentiality of Alcohol and Drug AbusePatient Records regulations: The Federal rules restrict any use of the information to criminally investigate or prosecute any alcohol or drug abuse patient.[facility] Encounter Details Date Type Department Care Team (Late st Contact Info) Description 11/13/2023 Patient Msg Neurology [address] [phone] Provider, Ccf Admission Social History Tobacco Use [...] N ot on file 01/20/2021 Data from: https://www.neighborhoodatlas.medicine.[facility].edu/. Last address used for calculation [...] on filedocumented in this encounter Care Teams Physical Testing Supervisor Relationship Specialty Start Date End Date Emeli Barber CNP [address] [place] [address] PCP - General Internal Medicine 07/17/21 documented as of this encounter
--- OUTSIDE RECORDS SUMMARY | 2025-02-02 20:28 | XMS_ITS | Encounter Summary ---
Author Organization [facility] Address [address] [place] [address] Care Team Providers Care Commissary Agent Name Role Phone Emeli Barber [place] Primary Care Provider + Source Comments In the event this information is protected by the Federal Confidentiality of Alcohol and Drug AbusePatient Records regulations: The Federal rules restrict any use of the information to criminally investigate or prosecute any alcohol or drug abuse patient.[facility] Encounter Details Date Type Department Care Team (Late st Contact Info) Description 09/13/2021 Get Medical Advice Urology [address] [place] [address] Domi Scruggs MD [address] [place] [address] Back to normal Social History Tobacco Use [...] N ot on file 01/20/2021 Data from: https://www.neighborhoodatlas.[facility].edu/. Last address used for calculation [...] on filedocumented in this encounter Care Teams Commissary Agent Relationship Specialty Start Date End Date Emeli Barber CNP [address] [place] [address] PCP - General Internal Medicine 07/17/21 documented as of this encounter
--- OUTSIDE RECORDS SUMMARY | 2025-02-02 20:28 | XMS_ITS | Patient Health Record ---
Author Organization [employer] [facility] [employer] [facility] Address [address] [place] [address] Care Team Providers Care Polysomnography Technologist Name Role Phone Sylvie Shelton Primary Care [...] Coverage Start Date Coverage End Date [employer] [place] [employer] [address] [address] [place] [address] [id number] COREY LOPEZ Self - patient is the insured 3 [employer] [place] [address] [place] [address] [id number] COREY LOPEZ Self - patient is the insured 3 [facility] ed 22. [address] [place] [address] [id number] COREY LOPEZ Self - patient is the insured 2 3 zMEDICAID CFC after [place] med 22 [address] [place] [address] [id number] COREY LOPEZ Self - patient is the insured 2 3 zDENTAL [place] med 22 [address] [address] [place] [address] [id number] COREY LOPEZ Self - patient is the insured 2 [facility] after [place]-ter med 22 [address] [place] [address] [id number] COREY LOPEZ Self - patient is the insured 2 3
--- OUTSIDE RECORDS SUMMARY | 2025-02-02 20:29 | XMS_ITS | Encounter Summary ---
Author Organization [facility] Address [address] [place] [address] Care Team Providers Care Cylindrical Mixer Name Role Phone Emeli Barber CAMERA MECHANIC - PSYCHOLOGY CLINICIAN Primary Care Provide r Reason for Visit * Reason Comments Medication Refill Encounter Details Date Type Department Care Team (Late st Contact Info) Description 01/28/2025 Refill [facility] NEUROLOGY Part [address] [place] [address] Pankaj Scherer MD [address] [place] [address] Dr [facility] [address] [place] [address] Medication Refill Social History Tobacco Use Types Packs/Day Years Used Date Smoking Tobacco: Never Smokeless Tobacco: Never Alcohol Use Standard Drinks/Week Comments Never 0 (1 standard drink = 0.6 oz pur e alcohol) PHQ-2 Answer Date Recorded PHQ-9 Total Score 0 11/16/2021 Sex and Gender Information Value Date Recorded Sex Assigned at Not on file Legal Sex Male 5:53 PM EST Gender Identity Male 03/12/2022 1:19 AM EDT Sexual Orientation Not on file documented as of this encounter Plan of Treatment Upcoming Encounters Date Type Department Care Team (Late st Contact Info) Description 03/11/2025 3:00 PM EDT Office Visit [facility] NEUROLOGY Part of [address] [place] [address] Pankaj Scherer MD [address] [place] [address] Dr [address] [place] [address] F/U from 09/08/24 documented as of this encounter Visit Diagnoses Not on filedocumented in this encounter Care Teams Cylindrical Mixer Relationship Specialty Start Date End Date Emeli Barber, BELL - PSYCHOLOGY CLINICIAN [address] [place] [address] [place] [address] PCP - General 11/16/21 documented as of this encounter
--- OUTSIDE RECORDS SUMMARY | 2025-02-02 20:29 | XMS_ITS | Encounter Summary ---
Author Organization [email or web address] Address [id number] [address] [place] [address] Care Team Providers Care Packer Denture Name Role Phone Emeli Barber Harinder STEAM STATION SUPERVISOR-ELECTRONICS MAINTENANCE TECHNICIAN Primary Care Provider Reason for Visit * Reason Onset Date Comments Sooner appt 05/17/2021 Encounter Details Date Type Department Care Team (Late st Contact Info) Description 05/17/2021 Telephone [facility] Neurology [address] [place] [address] Jamila Crowe Sooner appt Social [...] from position. Please call patient back at [phone] documented in this encounter Plan of Treatment Not on file documented as of this encounter Visit Diagnoses Not on filedocumented in this encounter Care Teams Packer Denture Relationship Specialty Start Date End Date Emeli Barber, STEAM STATION SUPERVISOR-ELECTRONICS MAINTENANCE TECHNICIAN [address] [place] [address] PCP - General Family Medicine 11/08/20 documented as of this encounter
--- OUTSIDE RECORDS SUMMARY | 2025-02-02 20:29 | XMS_ITS | Clinical Summary ---
Author Organization [facility] Address [address] [place] [address] Care Team Providers Care Head Refrigerating Engineer Name Role Phone Emeli Barber GEAR MACHINE OPERATOR GENERAL - DREDGING INSPECTOR Primary Care Provide r Allergies No known active allergies Medications vilazodone hcl 10 MG TABS Take 1 tablet by mouth daily Active lamoTRIgine (LAMICTAL) 200 MG tablet Take 1 tablet by mouth 2 times daily Active OXcarbazepine (TRILEPTAL) 600 MG tablet TAKE ONE TABLET BY MOUTH TWICE A DAY 60 tablet 5 5 Active levETIRAcetam (KEPPRA) 250 MG tablet Take 1 tablet by mouth 2 times daily 60 tablet 5 5 Active lamoTRIgine (LAMICTAL) 25 MG tablet Take 2 tablets by mouth 2 times daily 60 tablet 1 5 Active lamoTRIgine (LAMICTAL) 25 MG tablet Take 2 tablets by mouth 2 times daily 01/26/20 25 Discontinu ed(REORDER ) Active Problems Problem Noted Date Diagnosed Date Partial symptomatic epilepsy with complex partial seizures, intractable, without status epilepticus 08/07/2022 Seizure-like activity 08/07/2022 Encounters Date Type Department Care Team Description [facility] Part of [address] [place] [phone] Pankaj Scherer MD Medication Refill 01/25/2025 Refill [facility] NEUROLOGY Part of [address] [place] [address] Pankaj Scherer MD Medication Refill from Last 3 Months Family History Medical History Relation Name Comments [...] Description 03/11/2025 3:00 PM EDT Office Visit [facility] NEUROLOGY Part of [address] [place] [address] Pankaj Scherer MD [address] [place] [address] [place] [address] [place] [id number] F/U from 09/08/24 Health Maintenance Due Date Last Done Comments Hepatitis B vaccine (3 of 3 - 3-dose series) 02/05/1997 1996, 1996 Varicella vaccine (2 of 2 - 2-dose childhood series) 2000 11/25/1997 Depression Screen 2008 HIV screen 2011 Hepatitis C screen 2014 DTaP/Tdap/Td vaccine (7 - Tdap) 11/04/2019 11/03/2009, 08/07/2001, 11/25/1997, Additional history exists COVID-19 Vaccine (2 - 2023- season) 2024 05/10/2023, 04/16/2023 Flu vaccine (#1) 02/26/2025 Hib vaccine Completed 11/25/1997, 01/27, 1996, Additional [...] patient's age to complete this topic Insurance PLAN Advance Directives * Full Code (Latest Code Status on File) Date Activated Date Inactivated Comments 08/07/2022 3:31 PM 08/11/2022 7:05 PM * Full Code Date Activated Date Inactivated Comments 08/07/2022 3:31 PM 08/07/2022 3:31 PM Care Teams Head Refrigerating Engineer Relationship Specialty Start Date End Date Emeli Barber APRN - DREDGING INSPECTOR [address] [place], [place] [phone] PCP - General 11/16/21
--- OUTSIDE RECORDS SUMMARY | 2025-02-02 20:29 | XMS_ITS | Encounter Summary ---
Author Organization [facility] Address [address] [place], [place] [id number] Care Team Providers Care Case Worker Name Role Phone Inocencio, Zander Roberts DO Primary Care Provider + Emeli Barber CNP Primary Care Provider + Source Comments In the event this information is protected by the Federal Confidentiality of Alcohol and Drug AbusePatient Records regulations: The Federal rules restrict any use of the information to criminally investigate or prosecute any alcohol or drug abuse patient.[facility] Encounter Details Date Type Department Care Team (Late st Contact Info) Description 05/25/2021 Patient Msg Urology [address] [place], [place] [phone] Domi Scruggs MD [address] [place], [place] [id number] genetic testing Social History Tobacco Use Types [...] Data from: https://www.neighborhoodatlas.medicine.[facility].edu/. Last address used for calculation Not on [...] documented as of this encounter Care Teams Case Worker Relationship Specialty Start Date End Date Zander Painter DO [address] [place] [address] PCP - General Family Medicine 03/29/17 07/16/21 Emeli Barber CNP [address] [place] [address] PCP - General Internal Medicine 07/17/21 documented as of this encounter
--- OUTSIDE RECORDS SUMMARY | 2025-02-02 20:29 | XMS_ITS | Encounter Summary ---
Author Organization [facility] Address [address] [place], [place] [phone] Care Team Providers Care Mothercraft Nurse Name Role Phone Inocencio, Zander Roberts DO Primary Care Provider + Emeli Barber CNP Primary Care Provider + Source Comments In the event this information is protected by the Federal Confidentiality of Alcohol and Drug AbusePatient Records regulations: The Federal rules restrict any use of the information to criminally investigate or prosecute any alcohol or drug abuse patient.[facility] Encounter Details Date Type Department Care Team (Late st Contact Info) Description 07/07/2021 Patient Msg Urology [address] [place], [place] [phone] Domi Scruggs MD [address] [place], [place] [address] next steps Social History Tobacco Use Types [...] documented as of this encounter Care Teams Mothercraft Nurse Relationship Specialty Start Date End Date Zander Painter DO [address] [place] [address] PCP - General Family Medicine 03/29/17 07/16/21 Emeli Barber, ISSUER [address] [place], [place] [phone] PCP - General Internal Medicine 07/17/21 documented as of this encounter
--- OUTSIDE RECORDS SUMMARY | 2025-02-02 20:29 | XMS_ITS | Patient Health Record ---
Author Organization [facility] in [place] Address [address] [place] [address] Care Team Providers Care Plate Glass Polisher Name Role Phone Emeli Barber Primary Care Provider Allergies No Known Allergies Results Component Value Reference Range Notes MAGNESIUM Reviewed date:03/05/2024 08:34:38 AM Interpretation: Performing Lab: Notes/Report: [facility] , Magnesium 1.7 1.8-2.4 mg/dL Performing Lab: see note ML - [facility] LB PROF CHEM 8 (BAS METB) Reviewed date:03/05/2024 08:34:38 AM Interpretation: Performing Lab: Notes/Report: [facility] , Sodium 137 136-145 mmol/L Potassium 3.6 3.5-5.1 mmol/L Chloride 100 98-107 mmol/L Carbon Dioxide 33.2 21.0-32.0 mmol/L Anion Gap 7.4 Glucose 104 74-106 mg/dL Blood Urea Nitrogen 13.0 7.0-18.0 mg/dL Creatinine 1.08 0.70-1.30 mg/dL Estimated GFR ( Beryl >60 >=60 Estimated GFR (Non- Blanca >60 >=60 BUN Creatinine Ratio 12.0 Calcium 9.1 8.5-10.1 mg/dL Performing Lab: see note ML - [facility] LB ECG 12 lead Reviewed date:03/05/2024 08:34:38 AM Interpretation: Performing Lab: Notes/Report: Source Facility: [facility] [place] [address] [place] [address] Electrocardiograph Report Signed Patient: NANDO LOPEZ MR#: [id number] : 1995 Acct:[id number] Age/Sex: 28 / M ADM Date: 03/04/24 Loc: ER Attending Dr: Ordering Physician: Dylan Hauser M.D. 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 Signed By: 03/04/24 2216 DD/ 1727 TD/TT: Echo Tech: [place] [address] Electrocardiograph Report Signed Patient: GHADA LOPEZ MR#: [id number] : 1995 Acct:[id number] Age/Sex: 28 / M ADM Date: 03/04/24 Loc: ER Attending Dr: Ordering Physician: Dylan Hauser M.D. 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 Signed By: 03/04/242215 DD/ 26 TD/TT: Echo Tech: CBC AUTO DIFF Reviewed date:10/12/2024 04:15:57 PM Interpretation: Performing Lab: Notes/Report: [facility] , White Blood Count 6.3 4.0-11.0 10 [...] 3/uL Performing Lab: see note ML - [facility] LB PROF 14(COMP METB) Reviewed date:10/12/2024 04:15:48 PM Interpretation: Performing Lab: Notes/Report: [facility] , Sodium 140 136-145 mmol/L Potassium 3.6 [...] Performing Lab: see note ML - [facility] LB CBC AUTO DIFF Reviewed date:11/30/2024 09:52:19 AM Interpretation: Performing Lab: Notes/Report: [facility] , White Blood Count 4.6 4.0-11.0 [...] Lab: see note ML - 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 Measurements Intervals Staples Rate: 73 P: 58 UT: 146 QRS: 57 QRSD: 100 T: 26 QT: 372 QTc: 398 Interpretive Statements 1100 Sinus rhythm 9110 normal ECG Compared to ECG 03/04/2024 17:27:30 Sinus tachycardia no longer present Electronically Signed On 11-30-2024 7:44:59 EDT by MIGUEL BUNCH M.D. 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 Measurements Intervals Staples Rate: 73 P: 58 UT: 146 QRS: 57 QRSD: 100 T: 26 QT: 372 QTc: 398 Interpretive Statements 1100 Sinus rhythm 9110 normal ECG Compared to ECG 03/04/2024 17:27:30 Sinus tachycardia no longer present Electronically Malorie mohsen On 11-30-2024 7:44:59 EDT by MIGUEL BUNCH M.D. Dictated By: MIGUEL BUNCH Signed By: 11/30/24 0745 DD/ 02 TD/TT: Echo Tech: CBC AUTO DIFF Reviewed date:01/14/2025 10:32:02 AM Interpretation: Performing Lab: Notes/Report: [facility] , White Blood Count 6.3 4.0-11.0 10 [...] Performing Lab: see note - [facility] LB PROF CHEM 8 (BAS METB) Reviewed date:01/14/2025 10:32:02 AM Interpretation: Performing Lab: Notes/Report: [facility] , Sodium 138 136-145 mmol/L Potassium 4.1 [...] Performing Lab: see note - [facility] LB ECG 12 lead Reviewed date:01/14/2025 10:32:02 AM Interpretation: Performing Lab: Notes/Report: Source Facility: [facility] [place] [address] [place] [address] Electrocardiograph Report Signed Patient: NANDO LOPEZ MR#: [id number] : 1995 Acct:[id number] Age/Sex: 29 / M ADM Date: 01/11/25 Loc: ER Attending Dr: Ordering Physician: Grant Mcqueen M.D. 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 Measurements Intervals Staples Rate: 99 P: 61 UT: 156 QRS: 65 QRSD: 94 T: 71 QT: 336 QTc: 392 Interpretive Statements 1100 Sinus rhythm 2440 Incomplete right bundle branch block 9130 borderline ECG Compared to ECG 11/29/2024 14:03:51 Incomplete right bundle-branch block now present Electronically Signed On 01-11-2025 16:56:57 EDT by MIGUEL BUNCH M.D. Dictated By: MIGUEL BUNCH Signed By: 01/11/25 1657 DD/ 1523 TD/TT: Echo Tech: The [address] [address] Electrocardiograph Report Signed Patient: GHADA LOPEZ MR#: [id number] : 1995 Acct:[id number] Age/Sex: 29 / M ADM Date: 01/11/25 Loc: ER Attending Dr: Ordering Physician: Grant Mcqueen M.D. 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 Measurements Intervals Staples Rate: 99 P: 61 UT: 156 QRS: 65 QRSD: 94 T: 71 QT: 336 QTc: 392 Interpretive Statements 1100 Sinus rhythm 2440 Incomplete righ t bundle branch block 9130 borderline ECG Compared to ECG 11/29/2024 14:03:51 Incomplete right bundle-branch block now present Electronically Malorie d On 01-11-2025 16:56:57 EDT by MIGUEL BUNCH M.D. Dictated By: MIGUEL BUNCH Signed By: 01/11/25 1657 DD/ 1523 TD/TT: Echo Tech: LAMOTRIGINE Reviewed date:03/09/2024 04:10:19 PM Interpretation: Performing Lab: Notes/Report: [facility] Lamotrigine (Lamictal), Serum 5.3 2.0-20.0 ug/mL [address] [place] [id number] Tile Setter: Edgardo Tanner MD, Phone: [phone] Detection Limit = 1.0 [facility]formed at: [facility] Performing Lab: see note - [facility] LB Troponin I High Sensitivity Reviewed date:11/30/2024 09:52:19 AM Interpretation: Performing Lab: Notes/Report: [facility] , Troponin I High Sensitivity <4.0 4.0-76.1 pg/mL HAS BEEN CONFIRMED THE DECISION THRESHOLD FOR OR DIAGNOSIS. USED IN ISOLATION BUT SHOULD BE [...] Lab: see note ML - [facility] LB PROF 14(COMP METB) Reviewed date:11/30/2024 09:52:19 AM Interpretation: Performing Lab: Notes/Report: [facility] , Sodium 134 136-145 mmol/L Potassium 3.9 [...] 1.1 Performing Lab: see note ML - [facility] LB D-DIMER Reviewed date:11/30/2024 09:52:19 AM Interpretation: Performing Lab: Notes/Report: [facility] , D Dimer <0.19 <=0.59 mg/L FEU [...] hospitalization. 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) Active confirmed Problem Gastroesophageal reflux disease (088930013) GERD (gastroesophag eal reflux disease) (K21.9) Active confirmed Problem Elevated liver enzymes level (526587647) Elevated liver enzymes (R74.8) Active confirmed Problem Exercise-induced asthma (40499119) Exercise-induc ed asthma (J45.990) Active confirmed Problem Complex partial epileptic seizure (695403563) Complex partial seizure (G40.209) Active confirmed Problem Recurrent major depression (88491147) Depression, recurrent (F33.9) Active confirmed Problem Severe recurrent major depression without psychotic features (33662695) Major depressive disorder, recurrent episode, severe (F33.2) Active confirmed Problem Seizure (57491290) Seizure (R56.9) Active confirmed Problem Disorder of male genital organ (05830194) Disorder of male genital organs (N50.9) Active confirmed Problem Male infertility (9225219) Male infertility (N46.9) Active confirmed Problem 98093260 Depression, unspecified (F32.A) Active confirmed Vital Signs Blood pressure diastolic 70 mm Hg 10/01/2024 Height 65 in 10/01/2024 Blood pressure systolic 112 mm Hg 10/01/2024 Weight 181 lbs 10/01/2024 BMI 30.12 kg/m2 10/01/2024 Encounters Encounter Location Date Provider Diagnosis [facility] ([place], [place]) [address] [place] [address] 10/01/2024 Emeli Barber Depression, recurrent F33.9 and GERD (gastroesophageal reflux disease) K21.9 Assessments Encounter Date Diagnosis (ICD Code) Assessment Notes Treatment Notes Treatment Clinical Notes Section Notes 10/01/2024 GERD (gastroesophag eal reflux disease) (ICD-10 - K21.9) 10/01/2024 Depression, recurrent (ICD-10 - F33.9) has been out of it helped in past, restart fu 1 m, prn consider counseling 10/01/2024 Other work on healthy diet, discussed poor dentition, encouraged fu dentist Plan Of Treatment No Information Insurance Providers Payer Name Payer Address Payer Phone Subscriber Number Group Number Insured Name Patient Relationship to Insured Coverage Start Date Coverage End Date [employer] [place] [employer] [address] [place] [address] [phone] [id number] Gavin Nando Self - patient is the [...]
--- OUTSIDE RECORDS SUMMARY | 2025-02-02 20:29 | XMS_ITS | Clinical Summary ---
Author Organization [facility] Address [address] [place] [address] Care Team Providers Care Kiln Maintenance Name Role Phone Emeli Barber CNP Primary Care Provider [phone] Allergies No known active allergies Medications OXcarbazepine (TRILEPTAL) 300 mg tablet Take 600 mg by mouth two times a day. Active lamoTRIgine (LAMICTAL) 25 mg tabletIndicatio ns:Seizure-like activity (HCC) Take 2 tablets by mouth two times a day. In addition to 200 mg twice a day for a total of 250 mg twice a day 120 tablet 11 01/29/2024 Active lamoTRIgine (LAMICTAL) 200 mg tabletIndicatio ns:Seizure-like activity (HCC) Take 1 tablet by mouth two times a day. 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 Last address used for calculation [address] 12/30/2023 Sex and Gender Information Value [...] 08/07/2001, 11/25/1997, Additional history exists Covid-19 Vaccine (2 - 2023-2 5 season) 2024 05/10/2023, 04/16/2023 Influenza Vaccine (#1) 2025 Insurance [facility] MEDICAID Care Teams Kiln Maintenance Relationship Specialty Start Date End Date Emeli Barber CNP [address] [place], [place] [phone] PCP - General Internal Medicine 07/17/21
--- OUTSIDE RECORDS SUMMARY | 2025-02-02 20:29 | XMS_ITS | Encounter Summary ---
Author Organization [facility] Address [address] [place] [address] Care Team Providers Care Crime Investigator Special Agent Name Role Phone Emeli Barber [place] Primary Care Provider + Source Comments In the event this information is protected by the Federal Confidentiality of Alcohol and Drug AbusePatient Records regulations: The Federal rules restrict any use of the information to criminally investigate or prosecute any alcohol or drug abuse patient.[facility] Encounter Details Date Type Department Care Team (Late st Contact Info) Description 07/25/2021 Patient Msg Urology [address] [place], [place] [id number] Domi Scruggs MD [address] [facility] [place] [address] COVID test needed 3 days prior to [...] ot on file 01/20/2021 Data from: https://www.neighborhoodatlas.medicine.[facility].edu/. Last address used for calculation Not [...] documented as of this encounter Care Teams Crime Investigator Special Agent Relationship Specialty Start Date End Date Emeli Barber, [place] [address] [place] [address] PCP - General Internal Medicine 07/17/21 documented as of this encounter
--- OUTSIDE RECORDS SUMMARY | 2025-02-02 20:29 | XMS_ITS | Encounter Summary ---
Author Organization [facility] Address [address] [place] [address] Care Team Providers Care Oracle Adf Developer Name Role Phone Emeli Barber SEATING CAPTAIN - RETENTION REPRESENTATIVE Primary Care Provide r Reason for Visit * Reason Onset Date Comments Medication Refill 01/25/2025 Encounter Details Date Type Department Care Team (Late st Contact Info) Description 01/25/2025 Refill [facility] Part of [address] [place] [address] Pankaj Scherer MD [address] [place] [address] [address] [place] [phone] Medication Refill Social History Tobacco Use Types [...] Description 03/11/2025 3:00 PM EDT Office Visit [facility] Part of [address] [place] [address] Pankaj Scherer MD [address] [place] [address] Dr [address] [place] [place] [address] F/U from 09/08/24 documented as of this encounter Visit Diagnoses Not on filedocumented in this encounter Care Teams Oracle Adf Developer Relationship Specialty Start Date End Date Emeli Barber, SEATING CAPTAIN - RETENTION REPRESENTATIVE [address] [place] [address] [place] [address] PCP - General 11/16/21 documented as of this encounter
--- OUTSIDE RECORDS SUMMARY | 2025-02-02 20:29 | XMS_ITS | Clinical Summary ---
Author Organization [facility] tem Address [id number] [address] [place] [address] Care Team Providers Care Electoral Officer Name Role Phone ElisabethEmeli Harinder STOCK CONTROLLER-STONE AND CONCRETE WASHER Primary Care Provider Allergies No known active [...] on file Insurance [employer] Care Teams Electoral Officer Relationship Specialty Start Date End Date Emeli Barber APRN-STONE AND CONCRETE WASHER [address] [facility] [place] [address] PCP - General Family Medicine 11/08/20
--- OUTSIDE RECORDS SUMMARY | 2025-02-02 20:29 | XMS_ITS | Encounter Summary ---
Author Organization [facility] Address [address] [place], [place] [phone] Care Team Providers Care Air Conditioning Manager Name Role Phone Inocencio, Zander Roberts DO Primary Care Provider + Emeli Barber CNP Primary Care Provider + Source Comments In the event this information is protected by the Federal Confidentiality of Alcohol and Drug AbusePatient Records regulations: The Federal rules restrict any use of the information to criminally investigate or prosecute any alcohol or drug abuse patient.[facility] Encounter Details Date Type Department Care Team (Late st Contact Info) Description 06/04/2021 Get Medical Advice Urology [address] [place], [place] [phone] Domi Scruggs MD [address] [place], [place] [phone] Upcoming Appointment Question Social History Tobacco Use [...] N ot on file 01/20/2021 Data from: https://www.neighborhoodatlas.medicine.[facility].edu/. Last address used for calculation Not [...] documented as of this encounter Care Teams Air Conditioning Manager Relationship Specialty Start Date End Date Zander Painter DO [address] [place] [address] PCP - General Family Medicine 03/29/17 07/16/21 Emeli Barber CNP [address] [place] [address] PCP - General Internal Medicine 07/17/21 documented as of this encounter
--- OUTSIDE RECORDS SUMMARY | 2025-02-02 20:29 | XMS_ITS | Encounter Summary ---
Author Organization [facility] Address [address] [place], [place] [address] Care Team Providers Care Medical Sonographer Name Role Phone Emeli Barber [facility] Primary Care Provider + Source Comments In the event this information is protected by the Federal Confidentiality of Alcohol and Drug AbusePatient Records regulations: The Federal rules restrict any use of the information to criminally investigate or prosecute any alcohol or drug abuse patient.[facility] Encounter Details Date Type Department Care Team (Late st Contact Info) Description 08/03/2021 Patient Msg Pre Anesthesia [address] [place] [address] Gisela Lawton APRN.HEATING UNIT INSTALLER [address] [place] [address] Instructions for Surgery Social History Tobacco Use [...] N ot on file 01/20/2021 Data from: https://www.neighborhoodatlas.medicine.[facility].edu/. Last address used for calculation Not [...] documented as of this encounter Care Teams Medical Sonographer Relationship Specialty Start Date End Date Emeli Barber, HEATING UNIT INSTALLER [address] [place] [address] PCP - General Internal Medicine 07/17/21 documented as of this encounter
--- OUTSIDE RECORDS SUMMARY | 2025-02-02 20:30 | XMS_ITS | Encounter Summary ---
Author Organization [facility] Address [address] [place] [address] Care Team Providers Care Technical Internship Name Role Phone Emeli Barber [employer] Primary Care Provider + Source Comments In the event this information is protected by the Federal Confidentiality of Alcohol and Drug AbusePatient Records regulations: The Federal rules restrict any use of the information to criminally investigate or prosecute any alcohol or drug abuse patient.[facility] Encounter Details Date Type Department Care Team (Late st Contact Info) Description 05/07/2024 Patient Msg Neurology [address] [place] [address] Virginie Moses, LOOP DRIER OPERATOR.[employer] [address] [place] [address] Workbook for CBT Social History [...] is lower risk 8 12/30/2023 Data from: https://www.neighborhoodatlas.medicine.[facility]/. Last address used for calculation [address] [...] on filedocumented in this encounter Care Teams Technical Internship Relationship Specialty Start Date End Date Emeli Barber CNP [address] [place] [address] PCP - General Internal Medicine 07/17/21 documented as of this encounter
--- OUTSIDE RECORDS SUMMARY | 2025-02-02 20:30 | XMS_ITS | Encounter Summary ---
Author Organization [facility] Address [address] [place] [address] Care Team Providers Care Fitting Room Inspector Name Role Phone Emeli Barber [place] Primary Care Provider + Source Comments In the event this information is protected by the Federal Confidentiality of Alcohol and Drug AbusePatient Records regulations: The Federal rules restrict any use of the information to criminally investigate or prosecute any alcohol or drug abuse patient.[facility] Encounter Details Date Type Department Care Team (Late st Contact Info) Description 02/15/2024 [place] [address] Provider, Ccf Questionnaire Submission Social History Tobacco [...] is lower risk 8 12/30/2023 Data from: https://www.neighborhoodatlas.medicine.[facility].edu/. Last address used for calculation [address] [place] [address] 12/30/2023 Sex and Gender Information Value Date [...] on filedocumented in this encounter Care Teams Fitting Room Inspector Relationship Specialty Start Date End Date Emeli Barber CNP [address] [place] [address] PCP - General Internal Medicine 07/17/21 documented as of this encounter
--- OUTSIDE RECORDS SUMMARY | 2025-02-02 20:30 | XMS_ITS | Encounter Summary ---
Author Organization [facility] Address [address] [place], [place] [address] Care Team Providers Care Farrowing Worker Name Role Phone Inocencio, Zander Roberts DO Primary Care Provider + Emeli Barber CNP Primary Care Provider + Source Comments In the event this information is protected by the Federal Confidentiality of Alcohol and Drug AbusePatient Records regulations: The Federal rules restrict any use of the information to criminally investigate or prosecute any alcohol or drug abuse patient.[facility] Encounter Details Date Type Department Care Team (Late st Contact Info) Description 01/24/2021 Patient Msg Urology [address] [place], [place] [phone] Domi Scruggs MD [address] [place], [place] [phone] response Social History Tobacco Use Types Packs/Day [...] N ot on file 01/20/2021 Data from: https://www.neighborhoodatlas.medicine.[facility].edu/. Last address used for calculation [...] documented as of this encounter Care Teams Farrowing Worker Relationship Specialty Start Date End Date Zander Painter DO [address] [place] [address] PCP - General Family Medicine 03/29/17 07/16/21 Emeli Barber CNP [address] [place] [address] PCP - General Internal Medicine 07/17/21 documented as of this encounter
--- OUTSIDE RECORDS SUMMARY | 2025-02-02 20:30 | XMS_ITS | Encounter Summary ---
Author Organization [facility] Address [address] [place] [address] Care Team Providers Care Associate Professor Of Biostatistics Name Role Phone ElisabethEmeli Harinder [facility] Primary Care Provider + Source Comments In the event this information is protected by the Federal Confidentiality of Alcohol and Drug AbusePatient Records regulations: The Federal rules restrict any use of the information to criminally investigate or prosecute any alcohol or drug abuse patient.[facility] Reason for Visit * Reason Comments Refill Request Encounter Details Date Type Department Care Team (Late st Contact Info) Description 02/01/2025 Refill Neurology [address] [place] [address] Jayashree Bernstein APRN.[employer] [address] [place], [place] [id number] Refill Request Social History Tobacco Use Types Packs/Day Years [...] is lower risk 8 12/30/2023 Data from: https://www.neighborhoodatlas.medicine.[facility]/. Last address used for calculation [...] documented as of this encounter Visit Diagnoses Diagnosis Seizure-like activity (HCC) Other convulsions documented in this encounter Care Teams Associate Professor Of Biostatistics Relationship Specialty Start Date End Date Emeli Barber CNP [address] [place] [address] PCP - General Internal Medicine 07/17/21 documented as of this encounter
--- OUTSIDE RECORDS SUMMARY | 2025-02-02 20:30 | XMS_ITS | Encounter Summary ---
Author Organization [facility] Address [facility] [place] [address] Care Team Providers Care Event Staff Name Role Phone Emeli Barber [place] Primary Care Provider + Source Comments In the event this information is protected by the Federal Confidentiality of Alcohol and Drug AbusePatient Records regulations: The Federal rules restrict any use of the information to criminally investigate or prosecute any alcohol or drug abuse patient.[facility] Encounter Details Date Type Department Care Team (Late st Contact Info) Description 06/22/2024 Patient Msg Neurology [address] [place], [place] [id number] Provider, [facility] Mumtaz Appointment Cancelation Social History [...] is lower risk 8 12/30/2023 Data from: https://www.neighborhoodatlas.[facility]/. Last address used for calculation [address] [...] on filedocumented in this encounter Care Teams Event Staff Relationship Specialty Start Date End Date Emeli Barber CNP [address] [place] [address] PCP - General Internal Medicine 07/17/21 documented as of this encounter
--- OUTSIDE RECORDS SUMMARY | 2025-02-02 20:30 | XMS_ITS | Encounter Summary ---
Author Organization [facility] Address [address] [place] [address] Care Team Providers Care Pet House Sitter Name Role Phone Emeli Barber [place] Primary Care Provider + Source Comments In the event this information is protected by the Federal Confidentiality of Alcohol and Drug AbusePatient Records regulations: The Federal rules restrict any use of the information to criminally investigate or prosecute any alcohol or drug abuse patient.[facility] Encounter Details Date Type Department Care Team ([facility] st Contact Info) Description 04/06/2024 Patient Msg Neurology [address] [place] [address] Provider, [facility]cf Appointment change Social [...] is lower risk 8 12/30/2023 Data from: https://www.neighborhoodatlas.medicine.[facility].edu/. Last address used for calculation [address] [facility] 12/30/2023 Sex and Gender Information Value Date [...] on filedocumented in this encounter Care Teams Pet House Sitter Relationship Specialty Start Date End Date Emeli Barber CNP [address] [place] [address] PCP - General Internal Medicine 07/17/21 documented as of this encounter
--- NOTE | 2025-02-02 21:27 | ECG_ITS ---
[facility] Test Date: 2025-02-02 Pat Name: COREY LOPEZ Department: Room: - Gender: Male Clinical Abstractor: : 1995 Requested By: [id number] Order Number: [id number] Reading MD: GREG SEN Measurements Intervals [place] Rate: 71 P: 53 WI: 148 QRS: 65 QRSD: 94 T: 33 QT: 364 QTc: 386 Interpretive Statements 1100 Sinus rhythm INCOMPLETE RIGHT BUNDLE BRANCH BLOCK 9130 borderline ECG Compared to ECG 01/11/2025 15:23:51 No significant change Electronically Signed On 02-04-2025 9:47:56 EDT by GREG SEN
--- NOTE | 2025-02-02 21:27 | ED.GENADUL1 ---
HPI HPI - General Adult General Chief complaint: Seizure Stated complaint: FALL Time Seen by Provider: 02/02/25 20:53 Source: patient Mode of arrival: Wheelchair Limitations: no limitations History of Present Illness HPI narrative: Patient is a 29-year-old male who is presenting to the ER today with chief complaint of seizure that occurred at home tonight. Patient brother and sister at bedside. Patient's sister is one of the main caregivers that helps her brother at home. Patient was coming up the steps. Patient fell forwards, landing on the right side of his head and face forward. There is a medical dog at home for patient's sister they can respond to the patient as well when he has seizure-like activity. The dog had alerted sister the patient was in the kitchen. Patient did not bite his tongue. Patient had minimal urinary incontinence. No loss of bowel. Patient has seizure history. Patient's neurologist is in [facility]. Patient is compliant with his medication, patient's brother and sister at bedside state they make sure that he takes his medication every day. Patient is due to work tonight, patient will need a work note. Patient is on no blood thinners. No change in mental status. No headache. No neck pain. No chest pain or shortness of breath. Patient has mild pain to medial aspect of right knee. Patient sister wanted him to come to the ER to be evaluated secondary to hitting his head when he had fallen. Patient has no strokelike signs or symptoms. No other acute complaints. Poor hygiene for patient, smells of body odor along with family at bedside as well. All systems are negative except as noted/marked. All systems reviewed and otherwise negative. Nurses note and vital signs reviewed and patient is not hypoxic. General: The patient appears well and in no apparent distress. Patient is resting comfortably on cart. Patient is not toxic, lethargic, or listless. Patient smells a significant body odor along with brother and sister at bedside. Skin: Warm, dry, no pallor noted. There is no rash noted. No petechiae, purpura. No laceration, abrasion, ecchymosis noted to his face, scalp. Head: Normocephalic, atraumatic; no midline or paracervical tenderness to palpation. Full range of motion of cervical spine with no difficulty or pain. Eye: Normal conjunctiva, no drainage, EOMI. PERRL. Pupils are 4/2, equal, bilateral. Ears, Nose, Mouth, and Throat: oral mucosa is moist. Extremely poor dentition, no secondary signs of ANUG, periapical abscess, or gingivitis. Patient has very poor dentition, he knows this. No dental fracture. No tongue laceration. Nares patent. Mouth without vesicles. Cardiovascular: Regular Rate and Rhythm, no murmur, gallop, rub Respiratory: Patient is in no distress, no accessory muscle use, lungs are clear to auscultation, no wheezing, rales or rhonchi Back: non-tender, no CVA tenderness bilaterally to percussion. No CT LS midline pain GI: no tenderness to palpation, no masses appreciated. No rebound, guarding, or rigidity noted. No distention Musculoskeletal: Patient has full range of motion of all of the extremities except to the right knee. Patient has mild tenderness palpation to medial aspect of the right knee. He has full flexion extension of right knee with no pain. Patient has no pain with varus or valgus stress. Negative anterior posterior drawer sign to the right knee. No motor, sensory, or focal neurological deficits. No pain with varus or valgus stress. Neurological: A&O x4, normal speech; NIH 0 Psychiatric: Cooperative Related Data Home Medications ?Medication ?Instructions ?Recorded ?Confirmed oxcarbazepine 600 mg tablet 600 mg PO BID 02/05/23 01/14/25 lamotrigine 25 mg tablet 50 mg PO BID 10/10/24 01/14/25 levetiracetam 250 mg tablet 250 mg PO BID 10/10/24 01/14/25 omeprazole 20 mg capsule,delayed 20 mg PO .before meal 10/10/24 01/14/25 release vilazodone 20 mg tablet 20 mg PO .once daily 10/10/24 01/14/25 Allergies Allergy/AdvReac Type Severity Reaction Status Date / Time No Known Drug Allergies Allergy Verified 01/14/25 16:42 Opioid HPI Opioid Management Most Recent Opioid Data: Last Pain Scale 6 01/11/25, 17:19 Ur Phencyclidine Scrn, (NEGATIVE) Negative 10/27/23, 23:41 [facility] Medical History (Updated 02/02/25 @ 23:21 by Rico Bernardo MD) Epilepsy ?G40.909 - Epilepsy, unspecified, not intractable, without status epilepticus (ICD-10) Social History Smoking status: Unknown if ever smoked Little interest or pleasure in doing things: not at all Feeling down, depressed, or hopeless: not at all Exam Constitutional Vital Signs, click to edit/add: Last Vital Signs Temp 98.4 F 02/02/25 20:41 Pulse 73 02/02/25 23:10 Resp 15 02/02/25 23:10 BP 125/82 02/02/25 23:00 Pulse Ox 97 02/02/25 23:10 O2 Del Method Room Air 02/02/25 20:41 Course Vital Signs Vital signs: Vital Signs Temperature 98.4 F 02/02/25 20:41 Pulse Rate 104 H 02/02/25 20:41 Respiratory Rate 18 02/02/25 20:41 Blood Pressure 140/88 02/02/25 20:41 Pulse Oximetry 95 02/02/25 20:41 Oxygen Delivery Method Room Air 02/02/25 20:41 Temperature 98.4 F 02/02/25 20:41 Pulse Rate 73 02/02/25 23:10 Respiratory Rate 15 02/02/25 23:10 Blood Pressure 125/82 02/02/25 23:00 Pulse Oximetry 97 02/02/25 23:10 Oxygen Delivery Method Room Air 02/02/25 20:41 Medical Decision Making MDM Narrative Medical decision making narrative: Patient seen and examined: Patient had IV, fluids, lab work ordered. Levels of patient's medications will be ordered, patient and sister understand some of these tests are send out test from [facility]. Differential diagnosis includes but is not limited to: Breakthrough seizure, hyponatremia, dehydration, infection, electrolyte abnormality, closed head injury Diagnostics and management: Patient will have laboratory studies Relevant laboratory interpretation: Reevaluation: Patient feels better after IV fluids. Shared decision making: I discussed with the patient the necessary laboratory findings Social barriers to healthcare: There are no food insecurities, there is no issue with transportation, there are no insurance barriers. Disposition: I discussed with the patient and sister that patient's 3 seizure medications will not be resulted this evening. Education and closed head injury was done at bedside along with seizure precautions and following up with neurologist from [facility]. Patient will continue medications. Patient was given a work note for tonight. No questions at discharge. They will follow-up with PCP and neurologist on levels and any medication adjustments that are needed. Lab Data Labs: Lab Results 02/02/25 Range/Units 21:52 WBC 6.0 (4.0-11.0) 10^3/uL RBC 5.38 (4.70-6.10) 10^6/uL Hgb 15.9 (14.0-18.0) g/dL Hct 44.1 (42.0-54.0) % MCV 82.0 (80.0-94.0) fL MCH 29.6 (25.9-34.0) pg MCHC 36.1 H (29.9-35.2) g/dL RDW 12.5 (11.0-15.0) % Plt Count 217 (150-450) 10^3/uL MPV 9.8 (9.5-13.5) fL Neut % (Auto) 63.1 (43.0-75.0) % Lymph % (Auto) 28.0 (20.5-60.0) % [place] % (Auto) 6.8 (1.7-12.0) % Eos % (Auto) 1.2 (0.9-7.0) % Baso % (Auto) 0.7 (0.2-2.0) % Neut # (Auto) 3.8 (1.4-6.5) 10^3/uL Lymph # (Auto) 1.7 (1.2-3.8) 10^3/uL [place] # (Auto) 0.4 (0.3-0.8) 10^3/uL Eos # (Auto) 0.1 (0.0-0.7) 10^3/uL Baso # (Auto) 0.0 (0.0-0.1) 10^3/uL Abs Immat Gran (auto) 0.01 (0.00-0.03) 10^3/uL Imm/Tot Granulo (auto) 0.2 (0.0-0.5) % VBG pH 7.449 H (7.330-7.430) VBG pCO2 42.8 (40.0-52.0) mmHg Sodium 141 (136-145) mmol/L Potassium 4.7 (3.5-5.1) mmol/L Chloride 105 (98-107) mmol/L Carbon Dioxide 29.6 (21.0-32.0) mmol/L Anion Gap 11.1 BUN 12.0 (7.0-18.0) mg/dL Creatinine 1.07 (0.70-1.30) mg/dL Est GFR ( Amer) >60 (>=60 mL/min/1.73m^2) Est GFR (Non-Af Amer) >60 (>=60 mL/min/1.73m^2) BUN/Creatinine Ratio 11.2 Glucose 104 (74-106) mg/dL Lactate 0.6 (0.4-2.0) mmol/L Calcium 9.6 (8.5-10.1) mg/dL Magnesium 2.0 (1.8-2.4) mg/dL Total Bilirubin 0.5 (0.2-1.0) mg/dL AST 23 (15-37) U/L ALT 35 (16-63) U/L Alkaline Phosphatase 126 H (46-116) U/L Total Protein 7.6 (6.4-8.2) g/dL Albumin 4.0 (3.4-5.0) g/dL Globulin 3.6 g/dL Albumin/Globulin Ratio 1.1 ECG Data Attestation: I personally reviewed and interpreted this ECG as follows: (EKG interpretation. Normal sinus rhythm at 71 bpm. Normal axis deviation. No acute ST elevation, no acute ectopy. QTc of 386.) Discharge Plan Discharge Chief Complaint: Seizure Clinical Impression: Recurrent seizures, CHI (closed head injury), Contusion of knee, right, Knee pain, right Patient Disposition: Home, Self-Care Time of Disposition Decision: 23:19 Condition: Good Prescriptions / Home Meds: No Action oxcarbazepine 600 mg tablet 600 mg PO BID lamotrigine 25 mg tablet 50 mg PO BID levetiracetam 250 mg tablet 250 mg PO BID omeprazole 20 mg capsule,delayed release(DR/EC) 20 mg PO .before meal vilazodone 20 mg tablet 20 mg PO .once daily Print Language: Cymraes Instructions: Head Injury (ED), Contusion in Adults (ED), Knee Pain (ED), Recurrent Seizures in Adults (ED) Additional Instructions: Use ice 20 minutes on, 20 minutes off for pain. Use Tylenol if needed for any pain or headache that may start. Continue seizure medication as recommended by your neurologist from [facility]. The 3 levels of blood test are not going to be resulted in the ER this evening. They are send out test. Your PCP or neurologist can follow-up on the results and adjust your medication as needed. Follow-up with PCP in 1 to 2 days. Return back to the ER if patient has recurring seizures or any other acute concerns. Referrals: [facility] [Primary Care Provider, Family Practice] - 1 week
[2025-02-02 21:58] LABS: PCO2 VBG 42.8 mmHg (40.0-52.0); pH VBG 7.449 (7.330-7.430)
[2025-02-02 22:00] LABS: Hematocrit 44.1 % (42.0-54.0); Hemoglobin 15.9 g/dL (14.0-18.0); Immature Granulocytes Abs Auto 0.01 10^3/uL (0.00-0.03); Immature Granulocytes Pct Auto 0.2 % (0.0-0.5); Lymphocytes Absolute Auto 1.7 10^3/uL (1.2-3.8); Mean Corpuscular HGB Conc 36.1 g/dL (29.9-35.2); Mean Corpuscular Hemoglobin 29.6 pg (25.9-34.0); Mean Corpuscular Volume 82.0 fL (80.0-94.0); Platelet Count 217 10^3/uL (150-450); Red Blood Count 5.38 10^6/uL (4.70-6.10); White Blood Count 6.0 10^3/uL (4.0-11.0)
[2025-02-02] MEDS: 0.9 % SODIUM CHLORIDE 1,000 ML 999 ML IV (22:01)
[2025-02-02 22:11] LABS: Alanine Aminotransferase 35 U/L (16-63); Albumin Globulin Ratio 1.1; Albumin Level 4.0 g/dL (3.4-5.0); Alkaline Phosphatase 126 U/L (46-116); Anion Gap 11.1; Aspartate Amino Transferase 23 U/L (15-37); Blood Urea Nitrogen 12.0 mg/dL (7.0-18.0); Calcium 9.6 mg/dL (8.5-10.1); Carbon Dioxide 29.6 mmol/L (21.0-32.0); Chloride 105 mmol/L (98-107); Estimated GFR (African America >60 (>=60 mL/min/1.73m^2); Estimated GFR (Non-African Ame >60 (>=60 mL/min/1.73m^2); Globulin 3.6 g/dL; Glucose 104 mg/dL (74-106); Magnesium 2.0 mg/dL (1.8-2.4); Potassium 4.7 mmol/L (3.5-5.1); Sodium 141 mmol/L (136-145); Total Protein 7.6 g/dL (6.4-8.2)
[2025-02-02 22:14] LABS: Lactate/Lactic Acid 0.6 mmol/L (0.4-2.0)
--- NOTE | 2025-02-02 23:20 | PC.NURSE ---
this patient awake and alert sitting upright on the bed watching tv. this patient voices no concerns, needs and shows no signs of distress
--- NOTE | 2025-02-02 23:33 | PC.NURSE ---
i gave this patient verbal and written discharge orders and this patient voices yes to understanding these. at time of discharge this patient voices no needs or concerns and shows no signs of distress
[2025-02-06 16:08] LABS: Lamotrigine (Lamictal), Serum 7.2 ug/mL (2.0-20.0)
[2025-02-07 04:09] LABS: Levetiracetam (Keppra), S 6.6 ug/mL (10.0-40.0)
[2025-02-08 16:09] LABS: Oxcarbazepine (Trileptal),S 21 ug/mL (10-35)
== END 2025-02-02 23:32 | disposition home or self-care (01) ==
PROVIDERS: Emergency Provider Emergency Medicine; PCP Nurse Practitioner Family
DX: S09.8XXA Other specified injuries of head, initial encounter (principal); W10.8XXA Fall (on) (from) other stairs and steps, initial encounter; S80.01XA Contusion of right knee, initial encounter; M25.561 Pain in right knee; R56.9 Unspecified convulsions
CPT/HCPCS: 36415; 80053; 80175; 80177; 80183; 82800; 83605; 83735; 85025; 93005; 99285

== ENCOUNTER 2025-02-18 23:19 | Emergency (ER) | payer OTHER, SELFPAY ==
--- OUTSIDE RECORDS SUMMARY | 2025-02-18 23:25 | XMS_ITS | CCD ---
Author Organization [facility] Care Team Providers Care S Iron Worker Name Role Phone Arti JACINTO Emeli S Primary Care Provider [phone] HANS GRANADO Referring Unavailab ricky CHI EMELI S Primary Care Unavailable HANS GRANADO Referring Unavailab ricky CHI EMELI S Primary Care Unavailable Unavailable Primary Care Provider Unavailabl e PROVIDER, UNKNOWN Attending Unavailable PROVIDER, UNKNOWN Admitting Unavailable Emeli Chi Norma Primary Care Unavailable Derek Burks Attending Unavailable Derek Burks Admitting Unavailable TAQUERIA Chi Norma Primary Care Provider Derek Burks Attending Provider Cynthia Chiela S Primary Care Provider [phone] ARTI EMELI Primary Care Unavailable REGINA, DR BREE Meneses Attending Unavailabl mariangel TAPIA, DR BREE Meneses Admitting Unavailabl mariangel TAPIA, DR BREE Meneses Consulting Unavailabl e Trinity Trinh Consulting Unavailable LALO, JOSIAH Consulting Unavailable LALO, JOSIAH Attending Unavailable LALO, JOSIAH Admitting Unavailable ARTI, EMELI Primary Care Unavailable LALO, JOSIAH Consulting Unavailable LAOL, JOSIAH Attending Unavailable LALO, JOSIAH Admitting Unavailable [...] Unavailable ARTI, EMELI S Primary Care Physician [phone] Junior Raygoza Attending Unavailable Ramón Carrizales Attending Unavailable CHIRRI, CHAVEZ Attending Unavailable HANS GRANADO Referring Unavailab le ARTI, EMELI S Primary Care Unavailable CHIRRI, CHAVEZ Admitting Unavailable Arti FORGING MACHINE OPERATOR, Emeli S Primary Care Provider Arti JACINTO, [...] Primary Care Unavailable SHANDRA BERMAN Referring Unavailable LEAH KELLOGG Attending Unavailkaty e LEAH KELLOGG Admitting Unavailabl e ANA GARCIA Attending Unavailable ARTI, EMELI S Primary Care Unavailable RADHAANA BARAKAT Attending Unavailable ARTI, EMELI S Primary Care [...] (20 sources) Mood Stabilizer, Anti-epileptic Agent Start: 02-03-2025 End: 08-02-2025 take 1 tablet by mouth twice daily lamoTRIgine (LAMICTAL) 200 mg tablet Indications: Seizure-like activity (HCC) Take 1 tablet by mouth two times a day. 180 tablet 1 02/03/2025 08/02/2025 Active Start: 01-29-2024 End: 01-28-2025 take 2 tablets [...] 04/10/17 Status: Ordered take 1 tablet by [facility] once daily lamoTRIgine (LAMICTAL) 200 mg tablet [...] 04/06/19 Status: Ordered take 2 tablets by [facility] twice daily OXcarbazepine (TRILEPTAL) 300 mg tablet [...] Indication of Use: Prophylaxis-DVT/PE polyethylene glycol 3350 44637 mg powder for oral solution (1 source) [...] disorder with seizures or convulsions] Onset: 01-01-2024 4 Chronic Mood disorders (4 sources) Depressive disorder; [...] 02-02-2022 Episodic Other aftercare (1 source) 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; Translations: [OTH [facility] CURRENT DRUG THERAPY] Onset: 06-13-2022 Episodic Other injuries and conditions due to external causes (1 source) Unspecified injury of head, initial encounter; Translations: [UNSPECIFIED INJURY HEAD INITIAL ENC] Onset: 01-02-2022 Episodic Results Test Name Value Interpretation Reference Range Facility Terence 06-02-2024 CNPN Telephone (EPILMN) COREY ALONSO III ([id number]) 1995 M Date Time Provider Department 06/02/24 MINERVA ORTEGA During your visit today, we recorded the following information about you: Minerva Ortega LISW 06/02/2024 4:24 PM Signed HOSPITAL PHARMACY DIRECTOR received a consult from provider stating patient told them they cannot afford the PNES workbook, and is looking for assistance with this. HOSPITAL PHARMACY DIRECTOR notes patient had initial assessment with Dr. Garcia and is beginning treatment in June 2024. HOSPITAL PHARMACY DIRECTOR asked admin to send patient a copy of the workbook after confirming with patient the correct address. Will follow to assure this is sent to patient. Carli Villarreal 06/02/2024 4:38 PM Signed Copy of seizure workbook, mailed to patient home address. Tracking # [id number] Allergies As of Date: 06/02/2024 (No Known [...] nonepileptic seizure [F44.5] 01/01/2024 Encounter Status:Closed by JORDAN MINERVA on 06/02/24 Normal [facility] MRI BRAIN WO IVCONon 024 MRI [...] cortical dysplasia, or other neuronal migrational abnormalities. Gold Plater: PSCB Transcribe Date/Time: Feb 18 2024 8:30A Dictated by : VERÓNICA ECHEVARRIA MD This examination was interpreted and the report reviewed and electronically signed by: VERÓNICA ECHEVARRIA MD on Feb 18 2024 8:46AM EST [id number] Normal [facility] CNPNon 02-06-2024 CNPN Telephone (NE73MN) JOMARCOREY Shannon III ([id number]) 1995 M Date Time Provider Department 02/06/24 DEEP BABB NE50MN During your visit today, we recorded the following information about you: Genevieve Emeli Tate 02/06/2024 2:29 PM Signed Medication Concern Person [...] encounter of 02/06/2024 Forwarded to [facility] [employer] for review/recommendatio n JOSE Garcia Ailis, PA-C [...] Will await instructions Forwarded to [facility] JOSE Garcia Ailis, PA-C 02/06/2024 4:36 PM Signed Per pharmacy, 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 She would not recommend weaning down. Instead, hold tonight's dose and restart on correct dose of 250 mg twice daily tomorrow morning. TAYLOR Kate Elizabeth, RN 02/06/2024 5:00 PM Signed Spoke with patient/friendYina and provided medication recommendations - they verbalize understanding [employer] message sent per their request Spoke with Kimberley Sanders [facility] pharmacist - advised of LTG dose She requests new prescription for LTG 200 mg tablet Patient will receive corrected packets of LTG on Saturday, 02/09 Forwarded to [employer] for prescription processing JOSE Garcia Ailis, PA-C [...] with patient - he confirms receipt of [employer] message - no present medication concerns - [...] Encounter Status:Closed by SKYLA SANCHEZ on 02/07/24 [facility] COREY ALONSO III ([id number]) 1995 M Date Time Provider Department 02/06/24 [...] does not drive Forwarded to [facility] for review/recommendatio JOSE Mercado Ailis, PA-C 02/06/2024 4:02 PM Signed Patient [...] by SKYLA SANCHEZ on 02/06/24 [facility] Telephone (NE50MN) COREY ALONSO III ([id number]) 1995 M Date Time Provider Department 01/31/24 DEEP BABB NE50MN During your visit today, we recorded the following information about you: Nehal Jordan 01/31/2024 12:52 PM Signed General call : Full name of person calling: Corey Alonso III Relationship to patient: self Phone # : [phone] (mobile) Reason for call: Patient wants to [...] Encounter Status:Closed by SKYLA SANCHEZ on 01/31/24 [facility] CNOVon 01-29-2024 CNOV Office Visit (NE50MN) COREY ALONSO III ([id number]) 1995 M Date Time Provider Department 01/29/24 3:30 PM DEEP BABB NE50MN During your visit today, we recorded the following information about you: Pulse Blood pressure Weight Height 81/minute 133/82 78.5 kg 1.753 m Deep Babb MD 02/02/2024 10:23 PM Signed [facility] Patient Name: Corey Alonso III Date of : 1995 ESTABLISHED EPILEPSY CLINIC NOTE 01/29/2024 3:30 PM Reason for Visit: Established Patient and Follow Up Clinical Summary: Mr. Alonso is a 28 year old right-handed male seen in [facility]. At today's visit, [...] testing was not completed); [facility]; was treated with IV medication (Keppra) [...] evaluated in several facilities, most recently in [place], where he was told his episodes were [...] neurological histo (more content not included)... Normal [facility] [id number] 01-03-2024 [id number] HNO ID: [id number] Author: CARLOS FERRELL RN Service: ? Author Type: Registered Nurse Type: [id number] Filed: 01/03/2024 06:47 Note Text: Patient's sister arrived to take patient home. Night PA in prior to go over discharge with patient. RN went over discharge instructions, returned home medications from lock box and made sure patient had home belongings together. IV removed and opportunity for questions provided. Normal [facility] CNDSon 01-03-2024 CNDS HNO ID: [id number] Author: GIOVANI SANCHEZ MD, PhD Service: Neurology Adult Epilepsy Author Type: Nurse Practitioner Type: Discharge Summary Filed: 01/03/2024 11:23 Note Text: Attestation signed by Giovani Sanchez MD, PhD at 01/03/2024 11:23 AM Giovani Sanchez MD PhD Staff, Epilepsy Center [facility], [place] DISCHARGE SUMMARY PATIENT NAME: Corey Alonso III [...] year old male who presented to the [facility] EMU on 12/30/2023 for diagnosis. Medications were [...] U Bldg 03/05/2024 10:00 AM Doug Ellsworth, TOOL LAPPER HAND.FORGING MACHINE OPERATOR NE50MN Mn S Bldg 04/09/2024 9:00 AM Neida Kee, PhD EPILMN Mn S Bldg Please follow up with your Epileptologist. Dr. Deep Babb [address] [place] [address] The patient's risk for 30-day readmission is determined using the following contributing factors: The patient's risk for 30-day readmission is (more content not included)... Normal [facility] SOCIAL WORKon 01-01-2024 SOCIAL WORK HNO ID: [id number] Author: KARLI SANTORO LSW Service: Social Work Author Type: Fabrication Specialist Type: Social Work Filed: 01/02/2024 09:42 Note [...] regarding out patient CBT program offered through [facility]. Patient agreeable to follow up as an out patient. SW to continue to follow as needed. SIGNATURE: LAUREN Lujan PATIENT NAME: Corey Alonso III DATE: January 01, 2024 TIME: 4:19 PM PAGER/CONTACT #: [phone] [facility] SOCIAL WORKon 12-31-2023 SOCIAL WORK HNO ID: [id number] Author: KARLI SANTORO LSW Service: Social Work Author Type: Fabrication Specialist Type: Social Work Filed: 01/01/2024 09:44 Note [...] mild developmental delay, he was treated for PARK RECREATION MANAGER infection with initial presentation but patient/family unsure [...] reared by his mother and father in [place]. He has one biological sister. Patient identifies [...] frustrated by this, and being a first calender worker is his dream job. 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 PSYCHIATRIC HISTORY: Patient [...] feeling jealous whenever he sees a first calender worker, because he wonders why they are able [...] time. COLLAT (more content not included)... Normal [facility] 10OH-Carbazepine SerPl-mCnco n 12-30-2023 10-Hydroxycarbazepine [Mass/Vol] 13.6 ug/mL Normal 3.0-35.0 [facility] Comment on above: Order Comment: Speci men Type: BLOOD SPECIMENOrdering Facility: [facility] Address: [address] [place] [address] Result Comment: This test was developed and its performance characteristics determined by [facility] Pathology and Laboratory Medicine [place] ([facility] It has not been cleared or approved by the FDA. -[facility] is regulated under CLIA as qualified to perform high-complexity testing. This test is used for clinical purposes. It should not be regarded as investigational or for research. Performed By: #### 6 948-4, 95385-7 ####[facility] LAB[facility]IA [id number] [place] [address] [place] CBC W Auto Differential pane l (Bld)on 12-30-2023 Basophils (Bld) [#/Vol] 0.04 10*3/uL Normal <0.11 [facility] Comment on above: Order Comment: Speci men Type: BLOOD SPECIMEN [facility] Address: [address] [place] [address] Performed By: #### 5 7021-8 #### [facility] CLIA [id number] [address] [place] [address] [place] Basophils/100 WBC (Bld) 0.7 % Normal [facility] Comment on above: Order Comment: Speci men Type: BLOOD SPECIMEN [facility] Address: [address] [place] [address] Performed By: #### 5 7021-8 #### [facility] CLIA [id number] [address] [place] [address] [place] Differential cell count method Nom (Bld) Auto Normal [facility] Comment on above: Order Comment: Speci men Type: BLOOD SPECIMEN [facility] Address: [address] [place] [address] Performed By: #### 5 7021-8 #### [facility] CLIA [id number] [address] [place] [address] [place] Eosinophils (Bld) [#/Vol] 0.07 10*3/uL Normal <0.46 [facility] Comment on above: Order Comment: Speci men Type: BLOOD SPECIMEN [facility] Address: [address] [place] [address] Performed By: #### 5 7021-8 #### [facility] CLIA [id number] [address] [place] [address] [place] Eosinophils/100 WBC (Bld) 1.3 % Normal [facility] Comment on above: Order Comment: Speci men Type: BLOOD SPECIMEN [facility] Address: [address] [place] [address] Performed By: #### 5 7021-8 #### [facility] CLIA [id number] [address] [place] [address] [place] Erythrocyte distribution width (RBC) [Ratio] 12.3 % Normal 11.5-15.0 [facility] Comment on above: Order Comment: Speci men Type: BLOOD SPECIMEN [facility] Address: [address] [place] [address] Performed By: #### 5 7021-8 #### [facility] CLIA [id number] [address] [place] [address] [place] Hematocrit (Bld) [Volume fraction] 44.7 % Normal 39.0-51.0 [facility] Comment on above: Order Comment: Speci men Type: BLOOD SPECIMEN [facility] Address: [address] [place] [address] Performed By: #### 5 7021-8 #### [facility] CLIA [id number] [address] [place] [address] [place] Hemoglobin (Bld) [Mass/Vol] 15.6 g/dL Normal 13.0-17.0 [facility] Comment on above: Order Comment: Speci men Type: BLOOD SPECIMEN [facility] Address: [address] [place] [address] Performed By: #### 5 7021-8 #### [facility] CLIA [id number] [address] [place] [address] [place] Immature granulocytes (Bld) [#/Vol] 10*3/uL Normal <0.10 [facility] Comment on above: Order Comment: Speci men Type: BLOOD SPECIMEN [facility] Address: [address] [place] [address] Performed By: #### 5 7021-8 #### [facility] CLIA [id number] [address] [place] [address] [place] Immature granulocytes/100 WBC (Bld) 0.4 % Normal [facility] Comment on above: Order Comment: Speci men Type: BLOOD SPECIMEN [facility] Address: [address] [place] [address] Performed By: #### 5 7021-8 #### [facility] CLIA [id number] [address] [place] [address] [place] Lymphocytes (Bld) [#/Vol] 1.97 10*3/uL Normal 1.00-4.0 0 [facility] Comment on above: Order Comment: Speci men Type: BLOOD SPECIMEN [facility] Address: [address] [place] [address] Performed By: #### 5 7021-8 #### [facility] CLIA [id number] [address] [id number] [address] [place] Lymphocytes/100 WBC (Bld) 36.1 % Normal [facility] Comment on above: Order Comment: Speci men Type: BLOOD SPECIMEN [facility] Address: [address] [place] [address] Performed By: #### 5 7021-8 #### [facility] CLIA [id number] [address] [place] [address] [place] MCH (RBC) [Entitic mass] 28.6 pg Normal 26.0-34.0 [facility] Comment on above: Order Comment: Speci men Type: BLOOD SPECIMEN [facility] Address: [address] [place] [address] Performed By: #### 5 7021-8 #### [facility] CLIA [id number] [address] [place] [address] [place] MCHC (RBC) [Mass/Vol] 34.9 g/dL Normal 30.5-36.0 [facility] Comment on above: Order Comment: Speci men Type: BLOOD SPECIMEN [facility] Address: [address] [place] [address] Performed By: #### 5 7021-8 #### [facility] CLIA [id number] [address] [place] [address] [place] MCV (RBC) [Entitic vol] 82.0 fL Normal 80.0-100.0 [facility] Comment on above: Order Comment: Speci men Type: BLOOD SPECIMEN [facility] Address: [address] [place] [address] Performed By: #### 5 7021-8 #### [facility] CLIA [id number] [address] [place] [address] [place] Monocytes (Bld) [#/Vol] 0.40 10*3/uL Normal <0.87 [facility] Comment on above: Order Comment: Speci men Type: BLOOD SPECIMEN [facility] Address: [address] [place] [address] Performed By: #### 5 7021-8 #### [facility] CLIA [id number] [address] [place] [address] [place] Monocytes/100 WBC (Bld) 7.3 % Normal [facility] Comment on above: Order Comment: Speci men Type: BLOOD SPECIMEN [facility] Address: [address] [place] [address] Performed By: #### 5 7021-8 #### [facility] CLIA [id number] [address] [place] [address] [place] Neutrophils (Bld) [#/Vol] 2.96 10*3/uL Normal 1.45-7.5 0 [facility] Comment on above: Order Comment: Speci men Type: BLOOD SPECIMEN [facility] Address: [address] [place] [address] Performed By: #### 5 7021-8 #### [facility] CLIA [id number] [address] [place] [address] [place] Neutrophils/100 WBC (Bld) 54.2 % Normal [facility] Comment on above: Order Comment: Speci men Type: BLOOD SPECIMEN [facility] Address: [address] [place] [address] Performed By: #### 5 7021-8 #### [facility] CLIA [id number] [address] [place] [address] [place] Nucleated RBC (Bld) [#/Vol] 10*3/uL Normal <0.01 [facility] Comment on above: Order Comment: Speci men Type: BLOOD SPECIMEN [facility] Address: [address] [place] [address] Performed By: #### 5 7021-8 #### [facility] CLIA [id number] [address] [place] [address] [place] Nucleated RBC/100 WBC (Bld) [Ratio] 0.0 /100 WBC Normal [facility] Comment on above: Order Comment: Speci men Type: BLOOD SPECIMEN [facility] Address: [address] [place] [address] Performed By: #### 5 7021-8 #### [facility] CLIA [id number] [address] [place] [address] [place] Platelet mean volume (Bld) [Entitic vol] 9.6 fL Normal 9.0-12.7 [facility] Comment on above: Order Comment: Speci men Type: BLOOD SPECIMEN [facility] Address: [address] [place] [address] Performed By: #### 5 7021-8 #### [facility] CLIA [id number] [address] [place] [address] [place] Platelets (Bld) [#/Vol] 187 10*3/uL Normal 150-400 [facility] Comment on above: Order Comment: Speci men Type: BLOOD SPECIMEN [facility] Address: [address] [place] [address] Performed By: #### 5 7021-8 #### [facility] CLIA [id number] [address] [place] [address] [place] RBC (Bld) [#/Vol] 5.45 10*6/uL Normal 4.20-6.00 [facility] Comment on above: Order Comment: Speci men Type: BLOOD SPECIMEN [facility] Address: [address] [place] [address] Performed By: #### 5 7021-8 #### [facility] CLIA [id number] [address] [place] [address] [place] WBC (Bld) [#/Vol] 5.46 10*3/uL Normal 3.70-11.00 [facility] Comment on above: Order Comment: Speci men Type: BLOOD SPECIMEN [facility] Address: [address] [place] [address] Performed By: #### 5 7021-8 #### [facility] CLIA [id number] [address] [place] [id number] [facility] CNOVon 12-30-2023 CNOV Office Visit (NE50MN) COREY ALONSO III ([id number]) 1995 M Date Time Provider Department 12/30/23 8:00 AM DEEP BABB NE50MN During your visit today, we recorded the following information about you: Pulse Blood pressure Weight Height 105/minute 148/86 77.1 kg 1.727 m Deep Babb MD 12/30/2023 11:45 PM Signed [facility] [place] [facility] Patient Name: Corey Alonso III Date of : 1995 Referring Provider: Shandra Berman [facility] [place] [address] INITIAL EPILEPSY CLINIC NOTE 12/30/2023 8:00 AM CHIEF COMPLAINT: New Patient HISTORY OF PRESENT ILLNESS Mr. Alonso is a 28 year old right-handed male seen in [facility] for [...] testing was not completed); [facility]; was treated with IV medication (Keppra) [...] evaluated in several facilities, most recently in [place], where he was told his episodes were [...] No Seizu (more content not included)... Normal [facility] Comprehensive metabolic 2000 panelon 12-30-2023 Albumin [Mass/Vol] 4.3 g/dL Normal 3.9-4.9 [facility] Comment on above: Order Comment: Speci men Type: BLOOD SPECIMENOrdering Facility: [facility] Address: [address] [place] [address] Performed By: #### 1 9123-9, 3016-3, 2777-1, 77847-4 ####[facility] LABIA [id number] [place] [address] [place] ALP [Catalytic activity/Vol] 111 U/L Normal 38-113 [facility] Comment on above: Order Comment: Speci men Type: BLOOD SPECIMENOrdering Facility: [facility] Address: [address] [place] [address] Performed By: #### 1 9123-9, 3016-3, 2777-1, 36395-1 ####[facility] LAB[facility]IA [id number] [place] [address] [place] ALT [Catalytic activity/Vol] 14 U/L Normal 10-54 [facility] Comment on above: Order Comment: Speci men Type: BLOOD SPECIMENOrdering Facility: [facility] Address: [address] [place] [address] Performed By: #### 1 9123-9, 3016-3, 2777-1, 41479-6 ####[facility] LAB[facility]IA [id number] [place] [address] [place] Anion gap [Moles/Vol] 12 mmol/L Normal 9-18 [facility] Comment on above: Order Comment: Speci men Type: BLOOD SPECIMENOrdering Facility: [facility] Address: [address] [place] [address] Performed By: #### 1 9123-9, 3016-3, 2777-1, 81451-2 ####[facility] LABCLIA [id number] [place] [address] [place] AST [Catalytic activity/Vol] 14 U/L Normal 14-40 [facility] Comment on above: Order Comment: Speci men Type: BLOOD SPECIMENOrdering Facility: [facility] Address: [address] [place] [address] Performed By: #### 1 9123-9, 3016-3, 2777-1, 25338-1 ####[facility] LABCLIA [id number] [place] [address] [place] Bilirubin [Mass/Vol] 0.3 mg/dL Normal 0.2-1.3 [facility] Comment on above: Order Comment: Speci men Type: BLOOD SPECIMENOrdering Facility: [facility] Address: [address] [place] [address] Performed By: #### 1 9123-9, 3016-3, 2777-1, 80892-9 ####[facility] LABCLIA [id number] [place] [address] [place] Calcium [Mass/Vol] 9.7 mg/dL Normal 8.5-10.2 [facility] Comment on above: Order Comment: Speci men Type: BLOOD SPECIMENOrdering Facility: [facility] Address: [address] [place] [address] Performed By: #### 1 9123-9, 3016-3, 2777-1, 39184-2 ####[facility] LABCLIA [id number] [place] [address] [place] Chloride [Moles/Vol] 103 mmol/L Normal 97-105 [facility] Comment on above: Order Comment: Speci men Type: BLOOD SPECIMENOrdering Facility: [facility] Address: [address] [place] [address] Performed By: #### 1 9123-9, 3016-3, 2777-1, 42581-9 ####[facility] LABCLIA [id number] [place] [address] [place] CO2 [Moles/Vol] 24 mmol/L Normal 22-30 [facility] Comment on above: Order Comment: Speci men Type: BLOOD SPECIMENOrdering Facility: [facility] Address: [address] [place] [address] Performed By: #### 1 9123-9, 3016-3, 2777-1, 03382-6 ####[facility] LABCLIA [id number] [place] [address] [place] Creatinine [Mass/Vol] 1.04 mg/dL Normal 0.73-1.22 [facility] Comment on above: Order Comment: Speci men Type: BLOOD SPECIMENOrdering Facility: [facility] Address: [address] [place] [address] Performed By: #### 1 9123-9, 3016-3, 2777-1, 81975-0 ####[facility] LABCLIA [id number] [place] [address] [place] Creatinine and Glomerular filtration rate.predicted panel (S/P/Bld) 101 mL/min/1.73m??? Normal >=60 [facility] Comment on above: Order Comment: Speci men Type: BLOOD SPECIMENOrdering Facility: [facility] Address: [address] [place] [address] Result Comment: Michelle mated Glomerular Filtration Rate [...] actual GFR. Performed By: #### 1 9123-9, 3016-3, 2777-, 79090-0 ####[facility] LABIA [id number] [place] [address] [place] Glucose [Mass/Vol] 107 mg/dL High 74-99 [facility] Comment on above: Order Comment: Ngoc liu Type: BLOOD SPECIMENOrdering Facility: [facility] Address: [address] [place] [address] Result Comment: The [place] Diabetes Association (ADA) provides guidance for cutoff [...] Standards of Medical Care in Diabetes 2016, [place] [employer]. Diabetes Care. 2016.39(Suppl 1). Performed By: #### 1 9123-9, 3016-3, 2777-, 40854-6 ####[facility] LABCLIA [id number] [place] [id number] [place] Potassium [Moles/Vol] 3.9 mmol/L Normal 3.7-5.1 [facility] Comment on above: Order Comment: Ngoc liu Type: BLOOD SPECIMENOrdering Facility: [facility] Address: [address] [place], [place] [address] Performed By: #### 1 9123-9, 3016-3, 2777-1, 38236-7 ####[facility] LABCLIA [id number] [address] [address] [place] Protein [Mass/Vol] 6.7 g/dL Normal 6.3-8.0 [facility] Comment on above: Order Comment: Speci men Type: BLOOD SPECIMENOrdering Facility: [facility] Address: [address] [place] [address] Performed By: #### 1 9123-9, 3016-3, 2777-, 48183-0 ####[facility] LABIA [id number] [place] [address] [place] Sodium [Moles/Vol] 139 mmol/L Normal 136-144 [facility] Comment on above: Order Comment: Speci men Type: BLOOD SPECIMENOrdering Facility: [facility] Address: [address] [place] [address] Performed By: #### 1 9123-9, 3016-3, 2777-1, 75073-1 ####[facility] LABIA [id number] [place] [address] [place] Urea nitrogen [Mass/Vol] 13 mg/dL Normal 9-24 [facility] Comment on above: Order Comment: Speci men Type: BLOOD SPECIMENOrdering Facility: [facility] Address: [address] [place] [address] Performed By: #### 1 9123-9, 3016-3, 2777-1, 53946-9 ####[facility] LABIA [id number] [place] [address] [place] HISTORY PHYSICALon HISTORY PHYSICAL HNO ID: [id number] Author: GIOVANI SANCHEZ MD, PhD Service: Neurology Adult Epilepsy Author Type: Physician Type: H&P Filed: 12/31/2023 12:28 Note Text: NEURO EPILEPSY ADMIT NOTE SERVICE DATE: 12/30/2023 SERVICE TIME: 10:14 AM NIGHT AND WEEKEND COVERAGE: After 5 pm and over the weekends, please page [phone] to contact the 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 Giovani Sanchez [facility] UNIT: H71 - Adult Epilepsy Monitoring Unit [...] mild developmental delay, he was treated for PARK RECREATION MANAGER infection with initial presentation but patient/family unsure [...] testing was not completed); [facility]; was treated with IV medication (Keppra) [...] evaluated in several facilities, most recently in [place], where he was told his episodes were [...] were excerpte (more content not included)... Normal [facility] Magnesium SerPl[facility] Hospitalon [facility]29 Magnesium [Mass/Vol] 2.0 mg/dL Normal 1.7-2.3 [facility] Comment on above: Order Comment: Ngoc liu Type: BLOOD SPECIMENOrdering Facility: [facility] Address: [address] [place] [address] [place] [address] Performed By: #### 1 9123-9, 3016-3, 2777-1, 86012-0 ####[facility] LABCLIA [id number] [id number] [place] [address] NURSING PROGon 12-30-2023 NURSING PROG HNO ID: [id number] Author: MICAH PEÑA RN Service: ? Author Type: Registered Nurse Type: Nursing Progress Note Filed: 12/30/2023 12:15 Note Text: Pt admitted to [facility], oriented to room/unit. Safety and sz precautions initiated. Will continue to monitor and provide support. Normal [facility] PT panel Coag (PPP)on 2023 INR Coag (PPP) [Relative time] 1.1 {INR} Normal 0.9-1.3 [facility] Comment on above: Order Comment: Ngoc liu Type: BLOOD SPECIMENOrdering Facility: [facility] Address: [address] [place], [place] [address] [address] Result Comment: Idania min K Antagonist (VKA) Therapeutic Range: INR 2 to 3 (Target INR of 2.5) Note: For patients treated with VKA drugs, such as warfarin, the [place] [employer]icians 2012 Guideline recommends [...] Chest 2012, 141:7S-47S Nickie SALCEDO et al. [facility] 2017, 70: 252-289 Performed By: #### 3 4528-0, 69278-9 ####[facility] LABIA [id number] [place] [address] [place] PT Coag (PPP) [Time] 11.4 s Normal 9.7-13.0 [facility] Comment on above: Order Comment: Speci men Type: BLOOD SPECIMENOrdering Facility: [facility] Address: [address] [place] [address] Performed By: #### 3 4528-0, 04771-6 ####[facility] [id number] [place] [address] [place] Phosphate SerPl-mCncon 12-29 Phosphate [Mass/Vol] 4.1 mg/dL Normal 2.7-4.8 [facility] Comment on above: Order Comment: Speci men Type: BLOOD SPECIMENOrdering Facility: [facility] Address: [address] [place] [address] Performed By: #### 1 9123-9, 3016-3, 2777-1, 86071-7 ####[facility] [id number] [place] [address] [place] TOXICOLOGY SCREEN, ROUTINE U RINEon 12-30-2023 Amphetamines Confirm (U) [Mass/Vol] Negative Normal Negative [facility] Comment on above: Order Comment: Speci men Type: URINE SPECIMENOrdering Facility: [facility] Address: [address] [place] [address] Result Comment: Cuto ff threshold at 1000 ng/mL. Performed By: #### U TOX2 ####[facility] [id number] [place] [address] [place] BARBITURATES, URINE Negative Normal Negative [facility] Comment on above: Order Comment: Speci men Type: URINE SPECIMENOrdering Facility: [facility] Address: [address] [place] [address] Result Comment: Cuto ff threshold at 200 ng/mL. Performed By: #### U TOX2 ####[facility] LABCLIA [id number] [place] [address] [place] BENZODIAZEPINES, UR Negative Normal Negative [facility] Comment on above: Order Comment: Speci men Type: URINE SPECIMENOrdering Facility: [facility] Address: [address] [place] [address] Result Comment: Cuto ff threshold at 200 ng/mL. Performed By: #### U TOX2 ####[facility] LABIA [id number] [place] [address] [place] Cannabinoids Screen Ql (U) Negative Normal Negative [facility] Comment on above: Order Comment: Speci men Type: URINE SPECIMENOrdering Facility: [facility] Address: [address] [place] [address] Result Comment: Cuto ff threshold at 50 ng/mL. Performed By: #### U TOX2 ####[facility] LABIA [id number] [place] [address] [place] Cocaine Ql (U) Negative Normal Negative [facility] Comment on above: Order Comment: Speci men Type: URINE SPECIMENOrdering Facility: [facility] Address: [address] [place] [address] Result Comment: Cuto ff threshold at 300 ng/mL. Performed By: #### U TOX2 ####[facility] LABCLIA [id number] [place] [address] [place] Ethanol (U) [Mass/Vol] <11 Normal <11 [facility] Comment on above: Order Comment: Speci men Type: URINE SPECIMENOrdering Facility: [facility] Address: [address] [place] [address] Performed By: #### U TOX2 ####[facility] LABCLIA [id number] [place] [address] [place] Opiates Screen Ql (U) Negative Normal Negative [facility] Comment on above: Order Comment: Speci men Type: URINE SPECIMENOrdering Facility: [facility] Address: [address] [place] [address] Result Comment: Cuto ff threshold at 300 ng/mL. Performed By: #### U TOX2 ####[facility] LABCLIA [id number] [place] [address] [place] oxyCODONE cutoff Screen (U) [Mass/Vol] Negative Normal Negative [facility] Comment on above: Order Comment: Speci men Type: URINE SPECIMENOrdering Facility: [facility] Address: [address] [place] [address] Result Comment: Cuto ff threshold at 100 ng/mL. Performed By: #### U TOX2 ####[facility] LABCLIA [id number] [place] [address] [place] Phencyclidine Ql (U) Positive Abnormal Negative [facility] Comment on above: Order Comment: Speci men Type: URINE SPECIMENOrdering Facility: [facility] Address: [address] [place] [address] Result Comment: Cuto ff threshold at 25 ng/mL. Performed By: #### U TOX2 ####[facility] LABCLIA [id number] [place] [address] [place] TSH SerPl-aCncon 12-30-2023 TSH Qn 1.600 m[IU]/L Normal 0.270-4.200 [facility] Comment on above: Order Comment: Speci men Type: BLOOD SPECIMENOrdering Facility: [facility] Address: [address] [place] [address] Performed By: #### 1 9123-9, 3016-3, 2777-1, 97996-6 ####[facility] LABCLIA [id number] [place] [address] [place] aPTT PPPon 12-30-2023 aPTT Coag (PPP) [Time] 31.1 s Normal 23.0-32.4 [facility] Comment on above: Order Comment: Speci men Type: BLOOD SPECIMENOrdering Facility: [facility] Address: [address] [place] [address] Performed By: #### 3 4528-0, 53582-4 ####[facility] LABIA [id number] [address] [facility] lamoTRIgine SerPl-mCncon lamoTRIgine [Mass/Vol] 7.6 ug/mL Normal 1.0-13.0 [facility] Comment on above: Order Comment: Speci men Type: BLOOD SPECIMENOrdering Facility: [facility] Address: [address] [place] [address] Result Comment: This test was developed and its performance characteristics determined by [facility]'s [facility] Pathology and Laboratory Medicine [place] (RTPLMI). It has not been cleared or approved by the FDA. RT-PLFL is regulated under CLIA as qualified to perform high-complexity testing. This test is used for clinical purposes. It should not be regarded as investigational or for research. Performed By: #### 6 948-4, 11281-0 ####[facility] LABCLIA [id number] [address] [place] CNCONon 11-12-2023 CNCON Consults (NE50MN) COREY ALONSO III ([id number]) 1995 Date Time Provider Department 11/12/23 KELLY SANDOVAL NE50MN During your visit today, we recorded the following information about you: Shandra Berman APRN.FORGING MACHINE OPERATOR 11/13/2023 8:26 AM Signed [facility] Review of Records Patient: Corey Alonso III Address: [address] [place] [address] Impression: Review of records for Corey Alonso [...] Levetiracetam PMH: asthma, anxiety, depression PRIOR EVALUATIONS: [facility] [address] [place] [address] EEG ([facility], 11/28/2021): Normal EEG with no focal slowing or epileptiform activity. VEEG ([facility], 08/07/2022): During this day of recording no events were recorded. The interictal EEG was normal. Monitoring was continued in order to record the patient's typical events. (Only one day of monitoring was recorded) MRI brain wo contrast ([facility], 11/28/2021): Motion artifact mildly degrades the images. No acute brain parenchymal abnormality KALIA Recommendations: - Admit to EMU for VEEG monitoring, diagnostic evaluation Location: [facility] [place] - Visit with Dr. Greenberg prior to admission - Additional testing to be considered by epilepsy clinicians Signed: Shandra Berman APRN.FORGING MACHINE OPERATOR November 12, [address] Sandoval for review and recommendations. MD Recommendations (as discussed with Dr. Sandoval): - Please proceed with the above plan. ===== Please route this encounter to the EMU Scheduling Pool ( P EMU ) or PMU Scheduling Pool ( P PMU ) through LOS AND Follow up ===== PHASE 1.0 AND 1.5 ORDER SYNOPSIS Patient: Corey Alonso III ([id number]) Best contact number: [phone] Insurance: Payor: [place] / Plan: [facility] MEDICAID / Product Type: Medicaid / Scheduling Team: Please call for adult patients: Tigist Ruano ([phone]) Sarah Solo ([phone]) Omega Ramos ([phone]) Ivory Wan([phone]) Eulalia Mittal([phone] ) Please call for pediatric patients: Ivory Wan ([phone]) Tigist Ruano ([phone]) Sarah Solo ([phone]) Yarielmarkmariangel Ramos ([phone]),Luther Mittal([phone] ) 11/13/2023 -- Admission Type EMU Adult Number of Days requested [address] [place] [address] Admit Priority Routine 11/13/2023 PURPOSE Patient Being [...] Diagnosis:Seizure (HCC) [R56.9] Order(s):EPIL EEG LEAD PLACEMENT [[id number]] Order #: [id number]: 1 FUTURE EPIL VEEG ADMIT TO EMU/PMU [[id number]] Order #: [id number]: 1 Prescriptions as of 11/13/2023 - OXcarbazepine (TRILEPTAL) 300 mg tablet Take 300 mg by mouth twice daily. - lamoTRIgine (LAMICTAL) 200 mg tablet Take 200 mg by mouth once daily. Problem List As Of (more content not included)... Normal [facility] Terence 11-12-2023 GEGEN Telephone (NE50MN) COREY ALONSO III ([id number]) 1995 M Date Time Provider Department 11/12/23 KELLY SANDOVAL NE50MN During your visit today, we recorded the following information about you: Eulalia Mittal 11/12/2023 3:01 PM Signed [facility] Initial Intake Interview November 12, 2023 2:53 PM Caller: Corey Relationship to pt: Self ===== Patient name: Corey Alonso III Age: [age] year old Address: [address] [place] [address] (home) Insurance: Payor: [place]ICA[place] / Plan: [facility] MEDICAID / Product Type: Medicaid / Referred by: Self (word of mouth) Referring to: Dr. Greenberg Reason for Evaluation: further evaluation and treatment Previously evaluated at: [place] [facility] [address] [place] [address] Fax: N/A ===== Age AND date of [...] or No Date Facility EEG Yes 2021 [facility] Video EEG Yes 2021 [facility] MRI brain Yes [address] [facility] [address] brain No fMRI brain No [...] Status:Closed by EULALIA MITTAL on 11/12/23 Normal [facility] Consent for Treatmenton Consent for Treatment [id number] 30 [id number] #1.00CD:127 Normal [facility] Discharge Instructionson Discharge Instructions [id number] 1#1.00CD:127 Normal [facility] ED Clinical Summaryon 2022 ED Clinical Summary [place] [address] ED Clinical Summary Person Information Name: COREY ALONSO III [facility] Age: 27 Years : 1995 Sex: Male Language: Portuguese PCP: EMELI CHI CNP Marital Status: Phone: [phone] Visit Id: Visit Reason: Wound reevaluation with [...] 03/31/2023 17:04:18 03/31/2023 17:04:18 03/31/2023 17:04:18 ADDRESS: [address] [place] [phone] PHYS DOC NOTES: MEDICAL INFORMATION: Prescriptions Given: Medications to Continue with No Changes Other Medications lamotrigine (lamotrigine 100 mg oral tablet) 2 times a day. oxcarbazepine (Trileptal) By Mouth 2 times a day. PATIENT EDUCATION INFORMATION: Instructions: Wound Dehiscence Follow up: With: Address: When: EMELI CHI [facility] [facility] [address] [phone] Business (1) In 3 days 04/03/2023 Comments: [...] sutures are removed. DIAGNOSIS: Wound dehiscence Normal [facility] ED Note-Physicianon 03-31-20 ED Note-Physician Basic Information Time Seen: Ramón Carrizales DOCassandra 03/31/2023 16:48 Chief Complaint Had stitches at [place] 2 days ago on L thumb. States [...] 3 days 04/03/2023 EDT [address] [place] [address] [phone] Business (1) Additional Instructions: Call the office [...] Diagnostic Results No qualifying data available. Normal [facility] Comment on above: Result Comment: Elec [...] these instructions at home: Medicines ? Take mpuh-qtv-thqnaor and prescription medicines only as told by [...] and water are not available, use hand tube winder hand. ? Gently wash the wound area with [...] Revised: 12 (more content not included)... Normal [facility] ED Patient Summaryon 023 ED Patient Summary [address] [address] Patient Discharge Instructions Person Information Name: COREY ALONSO III Age: 27 Years Arrival Date: 03/31/2023 16:41:41 Discharge Diagnosis: Wound dehiscence Primary Care Physician: EMELI CHI CNP Provider Information Primary Provider: Ramón Carrizales DO Advanced Nanotechnologist:None The exam and treatment you received in the Emergency Department were for an urgent problem and are not intended as complete care. It is important that you follow up with a doctor, nurse practitioner, or physician?s assistant professor of philosophy for ongoing care. If your symptoms become worse or you do not improve as expected and you are unable to reach your usual health care provider, you should return to the Emergency Department. We are available 24 hours a day. COREY ALONSO III has been given the following list of patient education materials, prescriptions and follow-up instructions: Follow-up Instructions: With: Address: When: EMELI ARTI [address] [facility] [place] [place] [address] [phone] Business (1) In 3 days 04/03/2023 Comments: [...] opioids can be used to help relieve fzvmknxf-lf-erzchc pain and are often prescribed following a [...] ? Stor (more content not included)... Normal [facility] EMS Documentationon 10-10-19 EMS Documentation Please click on link to see report pdfCD:[id number] vInTNCkLnk5EYRyAiETJ iUhnGGYuzA27dsWCwgRR gHNF7ZlQgSAVmOEJ6ShF wIFIgMiAw IRLcNTC2XMHdPGYnFJE7 AKLpOUXkX4Pvp1YYk8ts TI2nNDKhHSE5SRFaBAT6 EOQyGP3xW0KerBWx MTAwNCAwIFIvSUQgMTAw FNIfALDuESVesNIGg7mf TS7hMCAzGKD2VZNwQDI2 GSPqGY0eDKogOE6s K4RevgZudKR1XkFbVOQU O0Srw654qqRmspx7V4Xv kK2bD9ZrJ1W9RZ1JVcCi HIa0TLMgTd6+L0Zv jcJ5CV0GRNLlQMacOGMh Jx1UGGIpGKf0BOAaIu6W WSBrOFaoAERuHy8QSIHm EIPwGZAWW6EOLTUz NSAwIFI+Dn9Luh6rP1D8 Uo5EXTUoCVD8gX7cDRq7 Z8U4BNVvSCPiWFSsTOIT H4wYOjcqM5CwMMI1 NiAwIFI+Xb7Tv2NoaXGz VX2QvKX7U9MNGCCspiLq ULHoD4V1xEVqYMWbOA8P URMzP2G+PgplbmRv LbvRXjNpLF9xwgj6OC9U QR2wpTvsYaG3UFR+PnN0 clZceMgoI6WnQLRwVOLp QJTzrmlmVKX1YPYa ZRkgFte9TF98BRWwbsOB GtwdZZLuE68VKSHoKty4 HMM4IzRkJK80EBHiWClp BnAnGBA2GR6rJRZw Zil6OVHwLbq4ASKnGrRO UDr0FzZ7RZQ6BR0yFWBy Uqo2YEGrFzy0EUShOoUF XIQvEup2KbL3FIJ2 XdGmZN10ZYXzAFxwDxVj FTO4ATT8JpAjSEGjGcKg tlDSGbxyTKH7NRCeOcIk XD73JHGnHQMwtdMO Man2VXKgDwMzBfl1YxD2 NWDdUaLmIMV9FMFxGzXE VF78EAbvNPZebwexHC87 RFE0DYTaDGOpUMyh MjUgLTEyIHJlCmYKMCAg r0KrWfZpXss9DCK5Ri4n NSAyODcuMjUgLTAuNzUg cmUKZgowLjkxOCAg q6WyQfY2HJB4ZUEiKJKg ODcuMjUgLTEyIHJlCmYK LGUhu0EmYfO1KAF2JVKe DrUsKtw7MpL1VB9v Xhu2JVFkCoEBPLYpDmUe BcX5ONY6RxWtKY13TBQc INsyTaUyLWA0GQ13WSL1 BiYkVW05EFJqNTwy WeYnUQU9TC4aVOKaIzg1 PL62VZ74XMLgOgHRCZr3 QnM7SIT5LV5sXXPkItz1 AK58ID64TIQfRzUT UY00NHryBYDabnbsBR08 OWO6OZfqHNX9LfAoVLEi XJHbhaMRKmuvUFCjD35B PWTqHoBrUqN7LhJ6 NBA6CY19ZI4oZjt6ALZp SaAYQIO0OwZkMlD3OGIh Do2iNHArWU90SBPsTHaa XfZ9Ag72CKP1QS4k NSAxMTYuMjUgLTAuNzUg rtXPGxj6TsngDPG0KjHu YQ99SQImXDEqWZJxGTzb FhW6NuA1GuSoMG86 NSAtNTUuNSByZQpmCjAu HWF3TDPqC16RDHA2LtV9 KJBgCR5xPEUuORTeCtWj LTEyIHJlCmYKMCAg m6CbDnG4DC3gITI9GvOj FWO6Cfi0LV0qNkj4OIAu VjFWCNMmVMtsSae8RFO7 HuEtCQ19TRNaBZla XkNqWUVyWhX5OaVcNTEn QbDjydNRHmszIIS2ElTq ApZyNZ02HJRiAsJjPCMr GQitOrA5FZ6iODD0 RcFjPuHsKP38HEScZoTs IFArPDzdZvWnZDL6DTZg H90ZRLAzHbFwZUeiAMG6 PZ73BP5iTgHmEPdm MvObOTBfktptIL37JSO4 EKzoQzVuIRa1FaMzMNGr FeRkttUFOtjyPGV0Mkle JjWsLUp1GQ2iNpc4 IHJlCmYKMTAgNDUzIDU3 KnNhUR59EVUwXVqcTjSj MLAiJx0bDNAcShh1YM34 WKSiYJykBbB4RN5t HHR2DtkbFbRjQL37JYUq NzUgcmUKZgowLjkxOCAg i4ZtKuZoWir0LDBjZg46 OVK9JP37EH6hZuDf FNsoDbAgLBRsvbpwRM45 RRP3RWGhJnEwANr7WpSr LTAuNzUgcmUKZgoxMCA0 XhNwOIZ5SzArHAHy NzUgcmUKZgoxMCAzODcu IuHpUKe9BP2gSfr6JGPl WxYVPKXiKICyTnHuJX06 NSAtNDYuNSByZQpm KgD2IV0nKMG6HmBiQMKo Prx7QF60Zm67XSWzFmER VU31TUsxSAWrjclfEH44 CKH6PePmEbFiIGr5 LjUgLTEyIHJlCmYKMCAg h9RgAtEfTbz6SMApQD26 ORQ7LU71XZ9dSyt5VBXo PyGCIR24MWlzQNHg bgoxNiAzNzcuMjUgNTYz FlK0HZ0wCB01QCUfWoAS WOMla3AoHrU6ABO8Sm17 IFRlVe62TXWeBiFx NzUgcmUKZgowLjkxOCAg k8SeVqQ3WJW0Pe28METq Vs33THKpGfXgVdNxrhTV PhxwSGDsJ71JNOHa DoYuPbC9Zzu3UXQ8TnLj LTEwLjUgcmUKZgowLjkx RZGyd1EqZcLyWcg9DXT7 Os67QIV8PW61TA5b VH86PIXlSnOXWFJyw0Qj EwDuKE4oZEDeNoJrMcEw MjAuMjUgLTEwLjUgcmUK BngcTgeaEJMyw4Ux CaShBW7gZFTrCjZbHwYi MjAuMjUgLTEwLjUgcmUK UinsSPSlU31SVTRqDxVv ByF1Jdj3ISV5VnFf LTEwLjUgcmUKZgowLjkx XNQyb6XoLgFeLH78SPN8 Ii65MOS9JX60XE3fVL28 NOZtYuMVAJRui7Va YhT1JBCrQhRnVsQaQuwh NSAtMTAuNSByZQpmCjAu JDX3XTRtG34SOEwiJJY1 Rc91TKHkHA55SL1x KQ71CGBgZeFXLODkd6Ba IfBaIO70VFW2De01BDI8 MiAtMTAuNSByZQpmCjAu MNE1WDPuR35FXbB8 CiYqRdA7Gac0GSDqXC2c CR64ZMHnUcALWJNfp7Pw JzU8NQ86QQN1Wc05SLHb UL60LV3pQI90GYLd PrBNDL05UHtqKUKduwln NTEuNSAzNjYuNzUgMjUu NSAtMTAuNSByZQpmCjEg IHNjbgoyNzcgMzY2 Gau4ZWHhZe4vOSKrKDQd TXMyPDdvGqEhOQV9TGQl T67UVrf2YRS1Ne52LKKb MTYuMjUgLTEwLjUg cmDQRbidTPPtJ35WKung VoS5TDI6Pj40ZHBkIX29 SW6aQL51NWCzFgKUPY56 MTggIHNjbgozOTMu SyJjTeP6Phn8LGT6CdUe LTEwLjUgcmUKZgoxICBz U17ZFFBjOmr8IIG1Rj92 JXO5VrRsYZEyFOAn AAetVjOsUHY8LGVfC55M UMDpRaw1NRV6Jn93MKS1 MyAtMTAuNSByZQpmCjEg UEBxtha0AFAlQlPl UbU2Tan1CJJ3TgZcOBDd LjUgcmUKZgowLjkxOCAg z9BgIpW6ZU54MUDdIaSu NzUgMjguNSAtMTAu NSByZQpmCjEgIHNjbgo1 BAYkPzXzPtK0Mxg5SFKe LjUgLTEwLjUgcmUKZgow AfzwSZTvg6GdZeLh Cw3lLUXjHkTzViQdXqVr NSAtMTAuNSByZQpmCjEg CBZiimb4JGLgStYiLuJ4 Gtf2NGP3DbXtQJId LjUgcmUKZgowLjkxOCAg d1BwIyN3LK23QBHxEeAu NzUgMjUuNSAtMTAuNSBy ZQpmCjEgIHNjbgo1 LbRcQfWuXsD7Ihb4EFzs LTEwLjUgcmUKZgowLjkx BREfw3VzHmZ9JB0eFDRy NjYuNzUgOSAtMTAu NSByZQpmCjEgIHNjbgo1 Gc79QZQiUXJvHxNqHPpq NSAtMjAuMjUgcmUKZgow YixzRANht1DzIyLm Uqk3LEI5Tj5gIAF4LV63 KY1tKJ3zRSNkOOfpWqVc IHNjbgoxMTEuMjUgMzU2 GmU1OZKjRdA7AJ6t UK2iOWVlBKigAoVvOWL4 MQNpE79RZAOaGqJ2XJW6 Qz1lHASnBI4aEXNpWlPu MjUgcmUKZgoxICBz R58PTXEqCbTpLqD8IlL2 ZUG5JlSyCXPzSzN7MFGw OsOWQO89UCtpRZQeueuu MzEuNSAzNTYuMjUg NDkuNSAtMjAuMjUgcmUK WnwnMRLrK99TVImjUES3 Lt5vWAVaIZ09XO3uKQ8z NSByZQpmCjAuOTE4 BQXeT42DCXzjXVI7Oe6c TVHaGN83TA8hNC2zEXRz ZQpmCjEgIHNjbgoyMDku NSAzNTYuMjUgNDIg GYNkUbV2FXSlMaSWTI69 MTggIHNjbgoyMDkuNSAz NTYuMjUgNDIgLTIwLjI1 NUZkXcPNWFCpw9Iq DtR9DU55CLH1Xy6uAKBq SH92XO1fTZ6iASXsDBwf BsJkKZD2ZAHbV33VIsPa BnPlEjB8FiF5MYU2 SnRgLZYgRzO2MSPgApKK VCDaw6OqMqY3KcPoMSAh JtPfEGC0TiT5DP3eJJ5c NSByZQpmCjAuOTE4 ZJMeX07QHoh7DYV6Ol2j NSAxMTYuMjUgLTIwLjI1 GQZbPkUXIMMlq9AjXjH4 Bc1tAXHaTXJmWcGf MjguNSAtMjAuMjUgcmUK PyvqPpmuAFFpr6CeKkX7 Kg5fFRGdZBQeRgPxZeul NSAtMjAuMjUgcmUK PlxqILNxW80FAFNoVte1 UIH0Mg7sZAJ4JN75BV7o FI0tWJBdKLgdJeYeCBR8 AWCiM33YHNWaCju6 RNJ9Rp9rPRU1VA35QJ3x AZ5eMVWqGSgrSwAqGQNu nbn7HQDoCaIvYyX5OaR6 SBI0SJ2nOP0kEYDj QKnxPlCnXAP9YBPxW19T MHMcYoZ2TYC7Lj1wBAK5 NiAtMjAuMjUg (more content not included)... Normal [facility] EMS Documentationon 10-09-19 23 EMS Documentation Please click on link to see report pdfCD:[id number] xLjQNCiX5+prnDQolQUJ BpZCcGSHaAyJ4YGnzYdC aDJ3mke3WESeIU7OhOXB aDFK6Oy9P FZqkWAn8HOBoPB7YT5wo WTfaVWT5He6WmO5cFRHv vuHgQGPYY55qKrrjGcOa NQovVCAxODAzNDgK Qf2zLZXuLJJrEGFcHPPm ICAgICAgICAgICAgICAg ICAgICAgICAgICAgICAg ICAgICAgICAgICAg ICAgICAgICAgICAgICAg ICAgICAgDQplbmRvYmoN Kl3XaUWqQb5LYhTlNkLO CjAwMDAwMDAwMzIg ELIeXEOjew2WCSHzXZHx DLD9JJJeTELgEKGyUDut LFFdBDAhXXg5CEYsLNWt YJ3JWnTbZZInDCN6 QQHvAWAiPPLscm9CIZVi MDAwMTkzNSAwMDAwMCBu FYlyGFSbGAKcTNr3EECy GVOpGZ8WVqHrTHJv JFQbLcMrGQUqXCTxqw9I MDAwMDAwMjMxNiAwMDAw MCBuDQowMDAwMDAyNDAw EYEgNDKpZG2YHtXw VSMgPXY7FBgmNAKnWWVa xe5IERXvCBJpVwizOKVk MDAwMCBuDQowMDAwMDAz YCA6PKCyJICbXO0E NbBgOUPaBUN7BGBbDLRw JRFwfm5DPIDgUFHcNxG5 OCAwMDAwMCBuDQowMDAw UKEdGEB9XTXuLZTw HE9DQiImDJPiXDMaOLPm NOQuPLBevl8LASUiFMEq NDQzOSAwMDAwMCBuDQow LNTtNUI9VfOrMKMw AFQlLC3PHoYmUDUnSMC6 TPdsCDZjAZEilt1TAHTv MDAwNTExMSAwMDAwMCBu OZpmMCIlHTB6WYGh WGSfFOOqXX2YZzTzQBHw RII9TmkaRCDaUHXklx0S MDAwMDAwOTYzOCAwMDAw MCBuDQowMDAwMDUw AtI4DSPxITIoQP3GSfXs MDAwODgyNDYgMDAwMDAg kd6NgZMrnGjmue2IJLjN J4zRPSj8GMqGCrmj KQThGfC8AmOdPGqwBHHv CNI3DdQ9DtOVEOR+Cjwz YkPXWSL1LpMPKEPgQLH6 KcejMDNATCWYN3L9 NVYASM2vDz8PiaY4JRX1 UTZiHyqhSo3emPNhQeTq YKXKB2QareMwURgIN3Rk ySRqVYEiD5RYPAQ5 Up75UqkasRwRYMU3RZKB NOnnDV1RMfjWEmHaWNqi Ta44A3KPa3P7OxOoK1BH cJcNcjMVOJzlU2lX kVK9k9fbwEjXnINJqEis OGdJcndPalFSQUlqUHNX iN25kgfJY6GzBAh3C0KR Zx4FGErxIbAurH6C eSnzATP7nL1xJLLIZZlK QsjlVO7PILDAHHz7WSf+ PiAgICAgICAgICAgICAg ICAgICAgICAgICAg ICAgICAgICAgICAgICAg ICAgICAgICAgICAgICAg ICAgICAgICAgICAgICAg ICAgICAgICAgICAg ICAgICAgICAgICAgICAg ICAgICAgICAgICAgICAg ICAgICAgICAgICAgICAg ICAgICAgICAgICAg ICAgICAgICAgICAgICAg ICAgICAgICAgICAgICAg ICAgICAgICAgICAgICAg ICAgICAgICAgICAg ICAgICAgICAgICAgICAg ICAgICAgICAgICAgICAg ICAgICAgICAgICAgICAg ICAgICAgICAgICAg ICAgICAgICAgICAgICAg ICAgICAgICAgICAgICAg ICAgICAgICAgICAgICAg ICAgICAgICAgICAg ICAgICAgICAgICAgICAg ICAgICAgICAgICAgICAg ICAgICAgICAgICAgICAg ICAgICAgICAgICAg ICAgICAgICAgICAgICAg ICAgICAgICAgICAgICAg ICAgICAgICAgICAgICAg ICAgICAgICAgICAg FU3Zq1JfshM2uoZcEBjc CAsbCVRDVw0EYPgmDdVm IB4qcz5NHMcVM45piGXh YXRhIDIxIDAgUgov C9GfonNihDpszwWcJtMy VYDOWt7HmWRZKEpkC9Q8 gZqhQRFqTYkqGTYHGp0N HWdqHC6wBXVrGRBn Ex9dTSocUZClQDMcXuPd AMCEJx4OmISePU4ALSCj nD9wAw3+DQplbmRvYmoN Un8LNuEkKNXgLasR Ica8Jc0UyXq5ILNfY9Mm YLLdXPFhx0MoQw9GGF8l tEkzJBI4Nf1XOKk1Wm4+ HSxutTIrGU4LBtdw F9LyIKNcYWBqRTQsQD4B IuFAAQpTgGwhIOYCizKu C2Rg+YhVmT5kkJxIcLBN SGQr0XLOZfCm61Bz DlUEoouA+MLHGaUf8c+k f7K6OUFxIZM1wIFKNQ2Y 0erHwx8UUq4UN2Y5NflR OYDFUPoGlV3ZOZmI E/QQRxLxLDY5jvEgsE3Q OG3sj9XlZCfRXjX5QNPp o0NcHIy3KWzhL67lrDLl nCMrIqFcLFEwAa5K N13uZYymBk86JVilWGDg InCbPYo1Vy2ER0KxgpTb aCHtTSKyUPQFR6Lut919 jkFpmhB8UGiyIR4y aoGlkBD7YNfjZBRtHeHk MjYgMCBSCj4+Cj4+Ci9U cLXxMS5VMFyyRm4+DQpl iaGxQnaEVc8IGsFl NGIuWphCBqy2Mj1KSg43 JZskHAOqEjTxRJh5Iv1D K3FgfZDmeuWpOldvzVWM VMPjRIZVB5rwkjk0 kKQ3KcqkTjHcn8SvU9Xv EIl0Zy5BU3GnTMP3UOq2 Hh8KEBByLoO2UcRjAQGU Wc6LKe0TN4K4XsX9 lCBxI6Uzhm9WE8G4oZHs T1hHOaybM2TVUr0EHhD1 ezBijP3XbXzjpfHfNcJj MjRQMFUwtTRSMLcw XdbR9eYDI3tk1UILn4Hp NkSQHCIZLPyj3XaNpGJ4 h6mK6cFlHwnYyTFmghqI n5gRvO7CN2sI9W8G ZB1zt5XqDQRcFZrlpbHy YsvZSn9IObijCCAuAyiP Cpo1Hb7LSTWfRn2ihLWp Ee0XYFSiAg3MJrKf Nk6ZIpKcBo8BVeLmUd8B YDR8Bt9TIAO2lxUxVf4a YSAxCj4+DQplbmRvYmoN Pt6TSqftPRDgUcqC Tir1Yi1WZLPsXt1nvHWa Zo6sVODoOq0+DQplbmRv BvtKRf6OMygfGDPyDzgQ Qqw6Fz6MTLGfPv0f eWNdDu0YWVKmOz3DKyTm Nc7QTsJhJh2NCtZeHs8X IZT7Vu8KHQF7tsXmUe1q YSAxCj4+DQplbmRv CarUCz7UGlUxTXPjJxwX Etg3Fi5GFOFnCn3slVQd KG3XNKOVU2OxkYDuQARK BPhHTu6At7rbHKBL W3Iih8IquhOywsCXx227 rvPxXqAuOYHYXGjiWL7d n8TkoykpW2nbDK52qQT4 QAwKR8P2LoD0nWNw I1I7nXXlMr2Ng3XtjRHn TBYkTdVaLIQYVx2KcYBn NF9Gm510Nq1+DQplbmRv XpnWLd3ZXfPwVHJb EnjXNoe7Ey3QXZCdIg0w mMJeUY2JCDEAO8GbkWRq JBMOLKxLQs2Ng3ydXGQV M1WZBWF4d9CehKni Ey4eHLdBQ23aRDFtoD0s PKvJZXEqyNd2bRkIY0Ia W2vbcMI7EMlIAS2rSBaQ X6G8yTCbWH4kmlKw MAo+GejmZ3oXGM7XYBEO FIIpT8gfLI57dCN1Et5W UlAtZg9Ng534CSZkJ8Or cHRvciAzMiAwIFIK N6Y0FgE2jKZyM4XQBEFc bnRUeXBlMgovVHlwZSAv Ve2bbYgrCgHsXXU3ZyF4 WTCqEPe9PgEhXx8+ DBtvzrWtWvyXEa1WTdYw HWReEwtCLjx2Zd7Yr6Hu amPyHTUwGnMgZOArXz0J YXBIZWlnaHQgNTkx Pzh9Yso0Sg6DBAHvPM95 CRXcIH8kBVE0MtrvBksn S0MzTkSAR5FcydZOCk00 YOjdJSxxFmh9AKNs ZG63JVFiWKE8DdWfKkEm DiU8XLE4HTCbWeZqPMki XCEiVu1Jc106QperQGRt HSAcXSVEGj6Nz931 UcXyQHXyBX1ZDKFSI6Dr kDOxNWDIHTkAZn3Ge5tl EFYGS5i1QWrhG3MzP1oq TCOWA0F8HI2MHJj3 PgB5MVe1Vz6IwMMnQM0B u493MPXzV5JiaEGnapa+ Xt2XSB2bs4PzADcLByLj SLFeh4VoLZt6OVkn PuhomXYhQJ7IvNT6PLIa Q15dUXlwQUCaG3YrDLV4 OQo+Dc4Xp8JvKGPkYDh5 vK7Lw7tOXFI90ck1 TA/H7snykGtUf1TRhRQ3 A0MI81ATq0UJH/77yrtu TfCYQiRoOcsqXWIo6koH u7p9xkI707QGOzKx erS7D8ofXVcdokQoJZ5w 2GyCKXQiMG7L1mNdXutU u79Ddxgg+B6vur2pXBTg NCdwymq8XAQKT3K8 OoUL9HcmqqYM+tDppbWv 6ME6Eod+VqGu/bIPnrvi b4VUV0LrDJNPZYPwEqpF OSXQKwrDJ0jqBsEH /kum4Pp7+o24EJnOMHBj SkQHQimiJEGUUqfNc/zr cH/qUADmHQ4Z3NMUGrwC I1pAGrgqjrFtH/TK icgKyZQkKdnzJyQzsuc0 4mTqdC4ePA/JNitNtwaw DucJjjsvB2VxEbPYGRqi 6DSeP0xRqY1/mRia 3E3KJB9lc3DpWVZbICgo wxFnIltDUm4HZrNgYAOo HwtAAfu6Tb0PIXEqLn7g hRFiVdLWTGJRD3Df sWBcNXDSTGvIY99HFp5G WLJbWG3hRW97Jk5dlXPg YeG0XCDeAy7FP9UeP28j cH7fXG1CGZFszWy3 wD0HAe0EhGC2wJSsVO2G yALiGNxaDE9Stuwnr2Ne CFZ5ZSDqPgxg (more content not included)... Normal [facility] Coding Summary.on 10-03-2022 Coding Summary. CD:[id number]:[id number] Gh0bWw+PGhlYWQ+PE1FV MZzJ88lrZPnmY4mQ8XVJ ElOSywgQVBQTElOSyIgb fWvWR6ghZCsAGZf IC8+ZK2oHLCxOxzygCKf x0D4cTM5B54hpl2bPAky kSD0HWXwHfDnvyxbc8mi dHi3PGobOozfQcZb UDNgeR16GZU6dR51Sx29 zMFfyQTsv0glzUv6AqJp XNDrQGB0vNvaRLzci7Cf UFGdL38gsVLtz8Z0 IGNvbGxhcHNlOyBlbXB0 mI5wRTawtdtun6mhbhkc Mey2bk56sARsn9K7sSU6 E7RoueW6SPOerOUi ZcdlgECHjO5dxmjnm6ps raomKzVxYPDhMFg5EUy5 VTDxkVecWkBsBK60RRQ2 TENursLaM8ZrNNLl jFwdXpT5c7I0Nh7AO7RX LpfmS1WYQRWFIKhhqRJ+ JH01lq88R2SxJgkfKsx2 YWLoFWF2uTN0aZ4t WNQlEXfqq9Y0cWM4M3Tn rcKrer1ye4olFJEgSNvs V64ikFNhn3N7MVOcwGP6 MBKthTmaKvGwgX77 Oyc+FQPruEjco7BmDqhl f6flt2ybhIl9DizyPSUr mxQrdYlwIHC6p7ArKp1s LCPjuIR4nPM4yJ9n FhQhIrS8LLijQ357OpPj nPPsAzntR45xG9NxaEH+ YCZqFqy7KGUbaIxqPY1o A1VaFMUrnbhqbWQv wPzuOG5vZUPmwiybIABe bU5tIDBdA2v1ZgRmMtX4 JMfiW8ArJQJaqfxeSa11 kF4kXaPeJyA4YObd X0SoorW9TIGfcGFhOIbc CGB7D75tf5E8LJWrODJj VIM5pGB8sX2hjLvrpgpt bGVmdDsgdmVydGlj TYmmDEraJ725ZCUzeGnx PkNvZGluZyBEYXRlOiAg MDMvMDgvMjAyMzwvdGQ+ UFYsDXE0sYedXVMj wBEtJAxrHe4yrJlwnRkx XW7qTJXcsxedUUIfeA5m UVRwsSQttHttRP6cVIFu wvwza296WlCbWZU5 UIPmhFAqW4NsdH0xFlDx OLBoFZZbN0BrsAZcIDsd M365PVwgTwS3SBAwjdKi Z6ZfDJOpsPymGdO8 h7G0Wk9Bt2AzuerfR3Kk nJPwAoVbBbndZAj5U1Bu PjwvdHI+QY93PBQxVD20 EVg6AVJ4eVwwQZvn FMStP4EorS3rNwQfYYSu ZGRkOyc+PHRhYmxlIHdp ZHRoPScxMDAlJyBzdHls JW3lUz1vFVJzWNHt eXnizHZoAaUry3ilVRVt TEsaHQ5lfYwiI1KqiBQ8 MKHro8m0Of63O97eE7Bl dXA+BGMskYH4mAJ7 mT3iOpQlAfV8AGduW329 TxYldDUxWxzet1akh8km hPd6VeD3NTEbdqJmwJgk MBR3i8GfJs88L07y IHdpZHRoPSIxNSUiIHZh bVrwlf5ebI7wYj4+PGNv hUG6zHP1xE3oGnEzJbU3 HTsgC967InQljVDz Wefge6jlw0wxcPx7KiIc PTPqapDbpVzyXPA7h2Sl Vq89D7YmtCrcz7LoSes9 bz91mKUib4D9oKD7 E1HyDQDocpzuhJImdJqd VO3eYRBsjuhjMFCvtJ6m IRNyD4y3VpFoPjU0GQjw X1UkrgJ6RJIeeKAp ANPznXPUaB1axlgxg9bo akydHyQpWWDaWBy2XOm9 OGBhxRmnHdMyFII5BzP8 DDD2tVYfaN7ykCjx nxknuN5pQaj+OPY1sHXv bUCHTR7eXyydmWY+PHRk SBW1kTflGOunTCIjnF3g HADtM1k9JhErJkY7 DUzpD8CwglB5JTDgeUNp ATIpsKSCvG9qdfpgf5gj yeghTlLfEZTgFQr3KRm9 LWFsaWduOiBsZWZ0 CgB6UGO0zSAuxJ7voZxa xprgrP2sUtd+QmlydGgg KVU1YEr5K0AbIpl6QONw oLxsIL7dmTPrOWyc Ki9nvVaisYkbOS6kVEOy nnhqf620TmRtb8qdFKMt mEVhLNmvUWG1T69ny8M8 BIDgPDTfBYH9nKX4 dH9wxLjehiytaJEvnOdt hoVcqMyoMFwwIXizO409 MTGayGerYfXpCMi5G5Xs Vva7SHOzrMnaXF6j aKOiTVwfAb9vxHvbiNba YC0lTOYamsvth298IuVo d9spSMCyeAKhFCtsKZZ3 U11rp6S4UQBoWWNk IYP1gFR7kD9bwDdslqih bGVmdDsgdmVydGljYWwt LSzuB153LWPyyRgxZgBf vEr6A1AuZzd8PQRc wYgwRW7drNAgKWliVd2n zSmexPzgND6kIYEkjjkt j859RoQsp0ebRUUipFNr UGssWGA2A47oe9P5 WZVjEKNoFTT3dOA5hW0n bGlnbjogbGVmdDsgdmVy tCrtESoqAZszT576RYJm cDsnPlBhdGllbnQg WEdlBNu9M9TmMjoxkBE+ WN00OVKzLT97dFTuhOGs o4amxQz7SvZbRQYiXLA2 iKoiWAaql7QdKDLe P46drJCjm0T5ZENykCcq fBChRlJzxIS0jJ1xXPtw micoc3rcpxygZnxdl6qn xv23gS67H62kYXwl ZHRoPSIzMCUiIHZhbGln bx4kjB6uHu9+PGNvbCB3 zRK0wK6cMHSfUwI2AAtv X703MtNcfCYzWgqd d5euu0eftMp7VfX1HLEc bwScrIduGKF0f6GdId44 B88fGFntRSPyYEViKDGv AZLzmIdvmt5lbG7r Ii8+SUMikIS4xET5oM6u ZyNvUrU2NDxsQ447RiBq eOAtRomgI73hW7KvvDC+ HEXaSrd3BZJmnAza YT8raXMoLIauGs9vMZE8 GiGoJxCmAFwaU3PdVRIu gffulnvpzIC3FALhPVXa pV23Wl7jeJlhQJCe dJCTnT8tmydju2mlhrug EbDmJZUaKFo6AIx1LMZb mPgpOcDlANZ9UwV9QXG6 yMQvcS8taTudunnn kP6lY9MvVAXrymhuOi99 oI4dBeHyAbH5WLlnUli+ REVMUEhJQSBJSUksIFJB NX6ORcBpRkbjkGX+ UZHbGOV4uMoeOPuyUXWg gW6qJVTpN3s1HdGgZhB0 PTwyQ0RtWDYnfmgsHo25 lW4eFkKsIdP2EPen J2ErelU9HFTlrCHeERnj VLN2W80qr6U3MOLsRCVq LDV5jIA4kU1llLgvgxtt bGVmdDsgdmVydGlj OHkkZMtuT569OGJhbLid KnAiXiTtQeB4UUp4A0Jp Fwu1KFKstApcFA1dmOKi CSczIl2tdKkzzGjy JJ8hVRTrnajuNVOdfR7e EOBysJFjlGmaXD3rIXQq ktaxt285YeOyOLK8RVVo lDLiZ3YpoA5tFxMy XIJuDUOdN3QozRLkKFps S804WNzrAtI6HZYwmiAj H4CbMPRneQndHeM9a9I3 Gj6vGpKOKOBrrxyp dGQ+XQKlRTF7oAcdLFvp VGKhoV2qLJWsU0m0ObMv QyO9RHsvF1VvHVFmhgql Am61iH3oFvEfEiU8 TQhnE4QzykX3AEPppXSn YBtrHWD3B14fk5H4AWDw PBEjTNV7hXZ7aM6cnQem bjogbGVmdDsgdmVy xTmaWNmaZBgzZ096PICr hJmqRx0fkEE6W1SyCjj4 UPKoyOhoOB7tqXMuOVix Vd6lsMsksLsxYM5r FQPpgxpxTAJsuB7tVPFz iRFmcUdeHM5uXFYtowkp p261WkFeLKW6ZNGipWVz Y8CmjB8hFdArGMJv PMSlF1XqwDXkABqpB107 JOdnUoH6ULZysnSyY5Va FHTrrIlxTlI1t6L6Ys8G aYAtI3GpQ4j3H0Ar PjwvdHI+ZR91YJUsLH68 vNKrwPTet7plxFn5EqLg ELKlXLH9dHonHAiuy1Hm HNBiV17qlRPhh1E0 IGNvbGxhcHNlOyBlbXB0 nG0jDDahvjuab8tkjudi Dstgb9emba19lB99L99b IHdpZHRoPSIzMCUi TNTpfXyxcr8qmO4wOr4+ JAZizXZ6hQN9iQ7pHkOj SlV6SRkjB303ZlMwtCXq Xvqqo3gqq3iwgKl9 IjIwJSIgdmFsaWduPSJ0 y6ViZr13Q39sFBusQVMc UTXsNRQaQNBnpNmcgn2m zZ8tBd0+GF1lj1iz xh32rT43gBX+PHRkIHN0 vVcqWDdzWEXiiJ0zWGfa NqN9UNVyYlEhpD95uHWw LRiqAc1cdPsylQnp SI3oISQtrclbv651SoMk t2jwDRNuwKJyIQmyARQ0 B01iy6C3EHIhWVLfCTR4 cMT9eK7bsZtzgnfz bGVmdDsgdmVydGljYWwt VVewS251OHOoqShqQdDu nYKmJ6ulzsGSCF0hWszs dGQ+UWEvOFO0hMaz NSfyXDAbbD7jQKBpK9a5 NjOaMhJ1JFsgB8NeioM1 QVCznUHsMWDykEIKeL4m izlnz5pyjcfdGvCb AQWeWAl7KZw3UISxuAcc OmNkVSS6UrW4CIX5aQVp bU0niWgahhumjK1vHvv+ RklOOjwvdGQ+PHRk UPK7gUihHAuwTTTonX4g CFWiB5y7KvSjRaQ0OMqk R9NrhiN3YTMoiRSzSGEz wKSUfP4okczfi5iz xoybNkJrWBLyORb6BUv9 ETRyyGjeUySzJRM3RjT9 TRL8jWBotI8hoPwkqshl jF8aSve+TVJOOjwv dGQ+GNAtRZL3aZbuKRmd PHHhxP0tKRTzD0v4HcAt IrM3EFheH2ZksiS5FDUh dPYfREMeuPAYbY3w wwyyd0bbrfxfLcEvTPNi YDs4PXa3KVFwoJgwZzNk AIH2QmQ1MFQ9kUXxuW4w pDskvhzmzH4tAhb+ HPR7LOA8VP23RO32H4Dx PjwvdGFibGU+PHRhYmxl IHdpZHRoPScxMDAlJyBz nXpsAR6kBy1bPEBn LWNv (more content not included)... Normal [facility] Consent for Treatmenton Consent for Treatment [id number] #1.00CD:127 Normal [facility] Discharge Instructionson Discharge Instructions [id number]#1.00CD:127 Normal [facility] ED Clinical Summaryon 2022 ED Clinical Summary [place] [id number] ED Clinical Summary Person Information Name: COREY ALONSO III Robin/[facility] Age: 27 Years : 1995 Sex: Male Language: Portuguese PCP: EMELI CHI CNP Marital Status: Phone: [phone] Visit Id: Visit Reason: Headache; Seizure; SEIZURE [...] 09/30/2022 21:30:18 09/30/2022 21:30:18 09/30/2022 21:30:18 ADDRESS: [place] [id number] PHYS DOC NOTES: MEDICAL INFORMATION: Prescriptions Given: Medications to Continue with No Changes Other Medications lamotrigine (lamotrigine 100 mg oral tablet) 2 times a day. oxcarbazepine (Trileptal) By Mouth 2 times a day. PATIENT EDUCATION INFORMATION: Instructions: Epilepsy Follow up: With: Address: When: EMELI CHI [address] [place] [address] [phone] Business (1) In 3 days DIAGNOSIS: Seizure Normal [facility] ED Note-Physicianon 10-01-19 ED Note-Physician Basic Information Time Seen: Idalmis DO, Junior S. 09/30/2022 20:45 Chief Complaint Patient brought by [...] seizure. Patient's significant other states that around [facility] when he had a generalized tonic-clonic seizure [...] baseline. He follows with a neurologist in [place] for this. He states that he is [...] Contact Information EMELI ARTI In 3 days [address] [place] [address] [phone] Business (1) Additional Instructions: Patient Education Epilepsy [...] Diagnostic Results No qualifying data available. Normal [facility] Comment on above: Result Comment: Elec [...] these instructions at home: Medicines ? Take lorz-cal-jslmgza and prescription medicines only as told by [...] a health (more content not included)... Normal [facility] ED Patient Summaryon 023 ED Patient Summary [address] [address] Patient Discharge Instructions Person Information Name: COREY ALONSO III Age: 27 Years Arrival Date: 09/30/2022 20:00:11 Discharge Diagnosis: Seizure Primary Care Physician: EMELI CHI CNP Provider Information Primary Provider: Junior Raygoza DO Advanced Nanotechnologist:None The exam and treatment you received in the Emergency Department were for an urgent problem and are not intended as complete care. It is important that you follow up with a doctor, nurse practitioner, or physician?s assistant professor of philosophy for ongoing care. If your symptoms become [...] With: Address: When: EMELI CHI [address] [facility] [place] [place] [address] [phone] Business (1) In 3 days In the event that this physician does not participate in your insurance network, please consult with your insurance company to find a nearby participating provider. Patient Education Materials: Epilepsy A MESSAGE TO ALL PATIENTS REGARDING OPIOIDS PRESCRIPTION OPIOIDS: WHAT YOU NEED TO KNOW Prescription opioids can be used to help relieve mhdqtlgc-ab-ccvxer pain and are often prescribed following a [...] be struggling with addiction, tell your health managed care nurse and ask for guidance or call [facility] National Helpline at 8-278-969-HELP. v Source: Department of Health and Human Services/[employer] (more content not included)... Normal [facility] Monitor Recordon 09-30-2022 Monitor Record [id number]#1.00CD:127 Normal [facility] Pre-Arrival Noteon 3 Pre-Arrival Note Pre-Arrival Summary Name: , ncems Current Date: 09/30/2022 20:10:38 EST Gender: Male Date of : Age: 27 Pre-Arrival Type: EMS ETA: 09/30/2022 20:20:00 EST Primary Care Physician: Presenting Problem: seizure Pre-Arrival User: Referring Source: Location: Completion Date/Time: 09/30/2022 19:50:00 [facility] Emergency Department Pre-Hospital Report Form Vital Signs: BP 144/96, HR 98, SPO2 99%, GCS 15 Pre-Hospital Report: Pt coming from [facility], had a seizure, 5th one today, known to have some back in July, alert and alittle confused Treatment in Route: Response to Treatment: Misc. Issues: Normal [facility] GROUP A STREP CULTUREon 08-30 S. pyogenes Ag Ql (Unsp spec) Culture Observations: NEGATIVE FOR GROUP A STREPTOCOCCUS. Normal [facility] Comment on above: Performed By: #### G RASTCX, SSCRN #### [facility] [address] [address] [address] Bob Nelson STREPT SCREENon 09-23-2022 STREP SCREEN A Negative Normal NEGATIVE [facility] Comment on above: Performed By: #### G RASTCX, SSCRN #### [facility] [address] [address] [address] Bob Nelson Basic Metab w/rfx MGon 08-07 Anion gap [Moles/Vol] 11 mmol/L Normal 9-17 [facility] Comment on above: Performed By: #### B MPX #### [address] [address] [employer]: Carter Collins MD Calcium [Mass/Vol] 10.0 mg/dL Normal 8.6-10.4 [facility] Comment on above: Performed By: #### B MPX #### [facility] [address] [place] [phone] [employer]: Carter Collins MD Chloride [Moles/Vol] 102 mmol/L Normal 98-107 [facility] Comment on above: Performed By: #### B MPX #### [address] [address] [employer]: Carter Collins MD CO2 [Moles/Vol] 26 mmol/L Normal 20-31 [facility] Comment on above: Performed By: #### B MPX #### [address] [address] [employer]: Carter Collins MD Creatinine [Mass/Vol] 0.94 mg/dL Normal 0.70-1.20 [facility] Comment on above: Performed By: #### B MPX #### [address] [address] [employer]: Carter Collins MD GFR/1.73 sq M.predicted among non-blacks MDRD (S/P/Bld) [Vol rate/Area] mL/min/{1.73_m2} Normal >60 [facility] Comment on above: Result Comment: Effective [...] secretion. Performed By: #### B MPX #### [facility] [employer] [address] [place] [phone] [employer]: Carter Collins MD Glucose [Mass/Vol] 97 mg/dL Normal 70-99 [facility] Comment on above: Performed By: #### B MPX #### [facility] [employer] [address] [place] [address] [employer]: Carter Collins MD Potassium [Moles/Vol] 4.0 mmol/L Normal 3.7-5.3 [facility] Comment on above: Performed By: #### B MPX #### [facility] [employer] [address] [place] [address] [employer]: Carter Collins MD Sodium [Moles/Vol] 139 mmol/L Normal 135-144 [facility] Comment on above: Performed By: #### B MPX #### [facility] [employer] [address] [place] [address] [employer]: Carter Collins MD Urea nitrogen [Mass/Vol] 12 mg/dL Normal 6-20 [facility] Comment on above: Performed By: #### B MPX #### [address] [address] [employer]: Carter Collins MD Basic Metabolic Panel w/ Ref rehana to MGon 08-07-2022 Anion gap [Moles/Vol] 11 mmol/L 9 - 17 mmol/L [facility] Calcium [Mass/Vol] 10.0 mg/dL 8.6 - 10. 4 mg/dL [facility] Chloride [Moles/Vol] 102 mmol/L 98 - 10 7 mmol/L [facility] CO2 [Moles/Vol] 26 mmol/L 20 - 31 mmol/L [facility] Creatinine [Mass/Vol] 0.94 mg/dL 0.70 - 1.20 mg/dL [facility] GFR/1.73 sq M.predicted MDRD (S/P/Bld) [Vol rate/Area] - PINF [facility] Comment on above: Effective [...] [Mass/Vol] 97 mg/dL 70 - 99 mg/dL [facility] Potassium [Moles/Vol] 4.0 mmol/L 3.7 - 5.3 mmol/L [facility] Sodium [Moles/Vol] 139 mmol/L 135 - 144 mmol/L [facility] Urea nitrogen (BldV) [Mass/Vol] 12 mg/dL 6 - 20 mg/dL [facility] CBC with Auto Differentialon 08-07-2022 Absolute Eos # 0.08 [facility] Absolute Immature Granulocyte 0.04 [facility] Absolute Lymph # 2.27 [facility] Absolute Lamb # 0.38 [facility] Basophils (Bld) [#/Vol] 0.03 10*3/uL [facility] Basophils/100 WBC (Bld) 0 % 0 - 2 % B [facility] Eosinophils/100 WBC (Bld) 1 % 1 - 4 % [facility] Hematocrit (Bld) [Volume fraction] 45.6 % 40.7 - 50.3 % [facility] Hemoglobin (Bld) [Mass/Vol] 15.6 g/dL 13.0 - 17.0 g/dL [facility] Immature granulocytes/100 WBC (Bld) 1 % High 0 [facility] Interpretation and review of laboratory results Abnormal [facility] Lymphocytes/100 WBC (Bld) 31 % 24 - 43 % [facility] MCH (RBC) [Entitic mass] 28.5 pg 25. 2 - 33.5 pg [facility] MCHC (RBC) [Mass/Vol] 34.2 g/dL 28.4 - 34.8 g/dL [facility] MCV (RBC) [Entitic vol] 83.4 fL 82.6 - 102.9 fL [facility] Monocytes/100 WBC (Bld) 5 % 3 - 12 % B ON [facility] NRBC Automated 0.0 0.0 per 100 WBC [facility] Platelet distribution width (Bld) [Ratio] 12.6 % 11.8 - 14.4 % [facility] Platelet mean volume (Bld) [Entitic vol] 9.8 fL 8.1 - 13.5 fL [facility] Platelets (Bld) [#/Vol] 215 10*3/uL [facility] RBC (Bld) [#/Vol] 5.47 10*6/uL 4.21 - 5.7 7 m/uL [facility] Segmented neutrophils/100 WBC (Bld) 62 % 36 - 65 % [facility] Segs Absolute 4.58 [facility] WBC (Bld) [#/Vol] 7.4 10*3/uL [facility] CBC with Diffon 08-07-2022 Abs. Basophil 0.03 k/uL Normal 0.00-0.20 [facility] Comment on above: Performed By: #### C DP #### [facility] [employer] [address] [place], [place] [id number] [employer]: Carter Collins MD Abs.Imm.Granulocyte 0.04 k/uL Normal 0.00-0.30 [facility] Comment on above: Performed By: #### C DP #### [facility] [address] [place], [place] [phone] [employer]: Carter Collins MD Abs.Neutrophil (Seg) 4.58 k/uL Normal 1.50-8.10 [facility] Comment on above: Performed By: #### C DP #### [facility] [address] [place] [address] [employer]: Carter Collins MD Basophils/100 WBC (Bld) 0 % Normal 0-2 [facility] Comment on above: Performed By: #### C DP #### [address] [address] [employer]: Carter Collins MD Eosinophils (Bld) [#/Vol] 0.08 10*3/uL Normal 0.00-0.4 4 [facility] Comment on above: Performed By: #### C DP #### [address] [address] [employer]: Carter Collisn MD Eosinophils/100 WBC (Bld) 1 % Normal 1-4 [facility] Comment on above: Performed By: #### C DP #### [address] [address] [employer]: Carter Collins MD Erythrocyte distribution width (RBC) [Ratio] 12.6 % Normal 11.8-14.4 [facility] Comment on above: Performed By: #### C DP #### [address] [address] [employer]: Carter Collins MD Hematocrit (Bld) [Volume fraction] 45.6 % Normal 40.7-50.3 [facility] Comment on above: Performed By: #### C DP #### [address] [address] [employer]: Carter Collins MD Hemoglobin (Bld) [Mass/Vol] 15.6 g/dL Normal 13.0-17.0 [facility] Comment on above: Performed By: #### C DP #### [address] [address] [employer]: Carter Collins MD Immature granulocytes/100 WBC (Bld) 1 % High 0 [facility] Comment on above: Performed By: #### C DP #### [address] [address] [employer]: Carter Collins MD Lymphocytes (Bld) [#/Vol] 2.27 10*3/uL Normal 1.10-3.7 0 [facility] Comment on above: Performed By: #### C DP #### [place] [address] [employer]: Carter Collins MD Lymphocytes/100 WBC (Bld) 31 % Normal 24-43 [facility] Comment on above: Performed By: #### C DP #### [place] [address] [employer]: Carter Collins MD MCH (RBC) [Entitic mass] 28.5 pg Normal 25.2-33.5 [facility] Comment on above: Performed By: #### C DP #### [place] [address] [employer]: Carter Collins MD MCHC (RBC) [Mass/Vol] 34.2 g/dL Normal 28.4-34.8 [facility] Comment on above: Performed By: #### C DP #### [place] [address] [employer]: Carter Collins MD MCV (RBC) [Entitic vol] 83.4 fL Normal 82.6-102.9 [facility] Comment on above: Performed By: #### C DP #### [address] [address] [employer]: Carter Collins MD Monocytes (Bld) [#/Vol] 0.38 10*3/uL Normal 0.10-1.20 [facility] Comment on above: Performed By: #### C DP #### [address] [address] [employer]: Carter Collins MD Monocytes/100 WBC (Bld) 5 % Normal 3-12 [facility] Comment on above: Performed By: #### C DP #### [address] [address] [employer]: Carter Collins MD Neutrophil (Seg) 62 % Normal 36-[address] [facility] Comment on above: Performed By: #### C DP #### [address] [address] [employer]: Carter Collnis MD NRBC Automated 0.0 per 100 WBC Normal 0.0 [facility] Comment on above: Performed By: #### C DP #### [address] [address] [employer]: Carter Collins MD Platelet mean volume (Bld) [Entitic vol] 9.8 fL Normal 8.1-13.5 [facility] Comment on above: Performed By: #### C DP #### [address] [address] [employer]: Carter Collins MD Platelets (Bld) [#/Vol] 215 10*3/uL Normal 138-453 [facility] Comment on above: Performed By: #### C DP #### [address] [address] [employer]: Carter Collins MD RBC (Bld) [#/Vol] 5.47 10*6/uL Normal 4.21-5.77 [facility] Comment on above: Performed By: #### C DP #### [address] [address] [employer]: Carter Collins MD WBC (Bld) [#/Vol] 7.4 10*3/uL Normal 3.5-11.3 [facility] Comment on above: Performed By: #### C DP #### [facility] [address] [place] [address] [employer]: Carter Collins MD EEG video monitoringon 08-07 Samira Rubio MD 08/07/2022 6:14 PM LONG-TERM EEG-VIDEO MONITORING CLINICAL NEUROPHYSIOLOGY LABORATORY DEPARTMENT OF NEUROLOGY [facility] Patient: Corey Alonso III Age: 26 [...] revealed no abnormalities. SAMIRA RUBIO MD Diplomate, [place] [employer] and Neurology Diplomate, [place] Board of Clinical Neurophysiology Diplomate, [place] Board of Epilepsy Please note this is a preliminary report and updated daily. The final report will have a summary of behavior and electrographic findings with clinical correlation. [employer] Work Phone: EEG video monitoringOrdered By: Samira Rubio on 08-07-2022 [employer] Phone: LAMOTRIGINEon 06-19-2022 Lamotrigine, Serum 4.2 ug/mL Normal 2.0-20.0 [facility] Comment on above: Result Comment: Dete ction Limit = 1.0 Performed By: #### C BC #### [facility] [address] [place] [address] Dr. Bob Nelson CBC AUTO DIFFon 06-11-2022 BASO # 0.0 103/ul Normal 0.0-0.1 [facility] Comment on above: Performed By: #### C BC #### [facility] [address] [place] [address] Dr. Bob Nelson Basophils/100 WBC (Bld) 0.2 % Normal 0.2-2.[address] [facility] Comment on above: Performed By: #### C BC #### [facility] [address] [place] [address] Dr. Bob Nelson EO # 0.0 103/ul Normal 0.0-0.7 [facility] Comment on above: Performed By: #### C BC #### [facility] [address] [place] [address] Dr. Bob Nelson Eosinophils/100 WBC (Bld) 0.0 % Critically low 0.9-7. 0 [facility] Comment on above: Performed By: #### C BC #### [facility] [address] [place] [address] Dr. Bob Nelson Erythrocyte distribution width (RBC) [Ratio] 13.0 % Normal 11.0-15.0 [facility] Comment on above: Performed By: #### C BC #### [facility] [address] [place] [address] Dr. Bob Nelson Hematocrit (Bld) [Volume fraction] 40.4 % Critically low 42.0-54.0 [facility] Comment on above: Performed By: #### C BC #### [facility] [address] [place] [address] Dr. Bob Nelson Hemoglobin (Bld) [Mass/Vol] 14.3 g/dL Normal 14.0-18.0 [facility] Comment on above: Performed By: #### C BC #### [facility] [address] [place] [address] Dr. Bob Nelson IG # 0.03 10e3/ul Normal 0.00-0.03 [facility] Comment on above: Performed By: #### C BC #### [facility] [address] [place] [address] Dr. Bob Nelson IG % 0.3 % Normal 0.0-0.5 [facility] Comment on above: Performed By: #### C BC #### [facility] [address] [place] [address] Dr. Bob Nelson LYMPH # 0.7 103/ul Critically low 1.2-3.8 [facility] Comment on above: Performed By: #### C BC #### [facility] [address] [place] [address] Dr. Bob Nelson Lymphocytes/100 WBC (Bld) 7.2 % Critically low 20.5-6 0.0 [facility] Comment on above: Performed By: #### C BC #### [facility] [address] [place] [address] Dr. Bob Nelson MANUAL DIFF REQ NO Normal [facility] Comment on above: Performed By: #### C BC #### [facility] [address] [place] [address] Dr. Bob Nelson MCH (RBC) [Entitic mass] 28.7 pg Normal 25.9-34.0 [facility] Comment on above: Performed By: #### C BC #### [facility] [address] [place] [address] Dr. Bob Nelson MCHC (RBC) [Mass/Vol] 35.4 g/dL Critically high 29.9-35.2 [facility] Comment on above: Performed By: #### C BC #### [facility] [address] [place] [address] Dr. Bob Nelson MCV (RBC) [Entitic vol] 81.1 fL Normal 80.0-94.[address] [facility] Comment on above: Performed By: #### C BC #### [facility] [address] [address] [address] Bob Nelson MONO # 0.6 103/ul Normal 0.3-0.8 [facility] Comment on above: Performed By: #### C BC #### [facility] [address] [place] [address] Dr. Bob Nelson Monocytes/100 WBC (Bld) 6.0 % Normal 1.7-12.[address] [facility] Comment on above: Performed By: #### C BC #### [facility] [address] [place] [address] Dr. Bob Nelson NEUT # 8.8 103/ul Critically high 1.4-6.5 [facility] Comment on above: Performed By: #### C BC #### [facility] [address] [place] [address] Dr. Bob Nelson Neutrophils/100 WBC (Bld) 86.3 % Critically high 43.0- 75.0 [facility] Comment on above: Performed By: #### C BC #### [facility] [address] [place] [address] Dr. Bob Nelson Platelet mean volume (Bld) [Entitic vol] 9.1 fL Critically low 9.5-13.5 [facility] Comment on above: Performed By: #### C BC #### [facility] [address] [place] [address] Dr. Bob Nelson PLT 177 103/ul Normal 150-450 [facility] Comment on above: Performed By: #### C BC #### [facility] [address] [place] [address] Dr. Bob Nelson RBC 4.98 106/ul Normal 4.70-6.10 [facility] Comment on above: Performed By: #### C BC #### [facility] [address] [place] [address] Dr. Bob Nelson WBC 10.2 103/ul Normal 4.0-11.0 [facility] Comment on above: Performed By: #### C BC #### [facility] [address] [place] [address] Dr. Bob Nelson CBC W MANUAL DIFFon 06-11-20 22 ATYPICAL LYMPH # Normal [facility] Comment on above: Performed By: #### C BC #### [facility] [address] [place] [address] Dr. Bob Nelson ATYPICAL LYMPH % Normal [facility] Comment on above: Performed By: #### C BC #### [facility] [address] [place] [address] Dr. Bob Nelson BAND # 0.0 103/ul Normal 0.0-0.3 [facility] Comment on above: Performed By: #### C BC #### [facility] [address] [place] [address] Dr. Bob Nelson BAND % 0 % Normal 0-5 [facility] Comment on above: Performed By: #### C BC #### [facility] [address] [place] [address] Dr. Bob Nelson BASOM # 0.00 103/ul Normal 0.00-0.10 [facility] Comment on above: Performed By: #### C BC #### [facility] [address] [place] [address] Dr. Bob Nelson BASOM % 0.0 % Critically low 0.2-2.0 [facility] Comment on above: Performed By: #### C BC #### [facility] [address] [place] [address] Dr. Bob Nelson BLAST # Normal [facility] Comment on above: Performed By: #### C BC #### [facility] [address] [place] [address] Dr. Bob Nelson BLAST % Normal [facility] Comment on above: Performed By: #### C BC #### [facility] [address] [place] [address] Dr. Bob Nelson CORRECTED WBC Normal 4.0-11.0 [facility] Comment on above: Performed By: #### C BC #### [facility] [address] [place] [address] Dr. Bob Neslon EOS # 0.00 103/ul Normal 0.00-0.70 [facility] Comment on above: Performed By: #### C BC #### [facility] [address] [address] [address] Bob Nelson EOS% 0.0 % Critically low 0.9-7.0 [facility] Comment on above: Performed By: #### C BC #### [facility] [address] [address] [address] Bob Nelson HCT 41.3 % Critically low 42.0-54.0 [facility] Comment on above: Performed By: #### C BC #### [facility] [address] [address] [address] Bob Nelson HGB 14.4 g/dl Normal 14.0-18.0 [facility] Comment on above: Performed By: #### C BC #### [facility] [address] [place] [address] Dr. Bob Nelson LYMPHM # 0.85 103/ul Critically low 1.20-3.80 [facility] Comment on above: Performed By: #### C BC #### [facility] [address] [place] [address] Dr. Bob Nelson LYMPHM% 8.0 % Critically low 20.5-60.0 [facility] Comment on above: Performed By: #### C BC #### [facility] [address] [place] [address] Dr. Bob Nelson MCH 28.6 pg Normal 25.9-34.0 [facility] Comment on above: Performed By: #### C BC #### [facility] [address] [place] [address] Dr. Bob Nelson MCHC 34.9 g/dl Normal 29.9-35.2 [facility] Comment on above: Performed By: #### C BC #### [facility] [address] [place] [address] Dr. Bob Nelson MCV 82.1 fL Normal 80.0-94.0 [facility] Comment on above: Performed By: #### C BC #### [facility] [address] [place] [address] Dr. Bob Nelson METAMYELOCYTE # Normal [facility] Comment on above: Performed By: #### C BC #### [facility] [address] [place] [address] Dr. Bob Nelson METAMYELOCYTE % Normal [facility] Comment on above: Performed By: #### C BC #### [facility] [address] [place] [address] Dr. Bob Nelson MONOM# 0.64 103/ul Normal 0.30-0.80 [facility] Comment on above: Performed By: #### C BC #### [facility] [address] [place] [address] Dr. Bob Nelson MONOM% 6.0 % Normal 1.7-12.0 [facility] Comment on above: Performed By: #### C BC #### [facility] [address] [place] [address] Dr. Bob Nelson MPV 9.4 fL Critically low 9.5-13.5 [facility] Comment on above: Performed By: #### C BC #### [facility] [address] [place] [address] Dr. Bob Nelson MYELOCYTE # Normal [facility] Comment on above: Performed By: #### C BC #### [facility] [address] [place] [address] Dr. Bob Nelson MYELOCYTE % Normal [facility] Comment on above: Performed By: #### C BC #### [facility] [address] [place] [address] Dr. Bob Nelson NRBC Normal [facility] Comment on above: Performed By: #### C BC #### [facility] [address] [address] [address] Bob Nelson PLT 182 103/ul Normal 150-450 [facility] Comment on above: Performed By: #### C BC #### [facility] [address] [place] [address] Dr. Bob Nelson RBC 5.03 106/ul Normal 4.70-6.10 [facility] Comment on above: Performed By: #### C BC #### [facility] [address] [place] [address] Dr. Bob Nelson RDW 12.9 % Normal 11.0-15.0 [facility] Comment on above: Performed By: #### C BC #### [facility] [address] [place] [address] Dr. Bob Nelson SEG # 9.12 103/ul Critically high 1.40-6.50 [facility] Comment on above: Performed By: #### C BC #### [facility] [address] [place] [address] Dr. Bob Nelson SEG % 86.0 % Critically high 43.0-75.0 [facility] Comment on above: Performed By: #### C BC #### [facility] [address] [place] [address] Dr. Bob Nelson WBC 10.6 103/ul Normal 4.0-11.0 [facility] Comment on above: Performed By: #### C BC #### [facility] [address] [place] [address] Dr. Bob Nelson ER URINE PROFILEon 2 Bilirubin Ql (U) Negative Normal NEGATIVE [facility] Comment on above: Performed By: #### B MP #### [facility] [address] [place] [address] Dr. Bob Nelson Clarity (U) CLEAR Normal CLEAR [facility] Comment on above: Performed By: #### B MP #### [facility] [address] [place] [address] Dr. Bob Nelson Color (U) DK. YELLOW Normal YELLOW [facility] Comment on above: Performed By: #### B MP #### [facility] [address] [place] [address] Dr. Bob VANEGAS A micrscopic examination will be performed if indicated. Normal [facility] Comment on above: Performed By: #### B MP #### [facility] [address] [place] [address] Dr. Bob Nelson Glucose Ql (U) Negative Normal NEGATIVE [facility] Comment on above: Performed By: #### B MP #### [facility] [address] [place] [address] Dr. Bob Nelson Hemoglobin Ql (U) Negative Normal NEGATIVE [facility] Comment on above: Performed By: #### B MP #### [facility] [address] [place] [address] Dr. Bob Nelson Ketones Ql (U) Negative Normal NEGATIVE [facility] Comment on above: Performed By: #### B MP #### [facility] [address] [place] [address] Dr. Bob Nelson LEUKOCYTES Negative Normal NEGATIVE [facility] Comment on above: Performed By: #### B MP #### [facility] [address] [place] [address] Dr. Bob Nelson Nitrite Ql (U) Negative Normal NEGATIVE [facility] Comment on above: Performed By: #### B MP #### [facility] [address] [place] [address] Dr. Bob Nelson pH (U) 6.5 [pH] Normal 5-9 [facility] Comment on above: Performed By: #### B MP #### [facility] [address] [place] [address] Dr. Bob Nelson Protein (U) [Mass/Vol] 30 mg/dL Abnormal NEGAT TOMMY/ TRACE [facility] Comment on above: Performed By: #### B MP #### [facility] [address] [place] [address] Dr. Bob Nelson SPEC GRAVITY 1.025 Normal 1.005-<=1.[address] [place] [address] Comment on above: Performed By: #### B MP #### [facility] [address] [place] [address] Dr. Bob Nelson UR MICRO IND INDICATED Normal [facility] Comment on above: Performed By: #### B MP #### [facility] [address] [place] [address] Dr. Bob Nelson Urobilinogen Qn (U) 0.2 {Lance'U}/dL Normal 0.2 - 1. 0 [facility] Comment on above: Performed By: #### B MP #### [facility] [address] [address] [address] Bob Nelson PROF CHEM 8 (BAS METB)on Anion gap [Moles/Vol] 7.2 mmol/L Normal [facility] Comment on above: Performed By: #### B MP #### [facility] [address] [address] [address] Bob Nelson Calcium [Mass/Vol] 9.0 mg/dL Normal 8.5-10.1 [facility] Comment on above: Performed By: #### B MP #### [facility] [address] [place] [address] Dr. Bob Nelson Chloride [Moles/Vol] 98 mmol/L Normal 98-107 [facility] Comment on above: Performed By: #### B MP #### [facility] [address] [place] [address] Dr. Bob Nelson CO2 [Moles/Vol] 30.9 mmol/L Normal 21.0-32.0 [facility] Comment on above: Performed By: #### B MP #### [facility] [address] [place] [address] Dr. Bob Nelson Creatinine [Mass/Vol] 0.96 mg/dL Normal 0.70-1.30 [facility] Comment on above: Performed By: #### B MP #### [facility] [address] [place] [address] Dr. Bob Nelson EGFR-AF INDONESIAN >60 Normal >=60 [facility] Comment on above: Performed By: #### B MP #### [facility] [address] [place] [address] Dr. Bob Nelson EGFR-NON AF INDONESIAN >60 Normal >=60 [facility] Comment on above: Performed By: #### B MP #### [facility] [address] [place] [address] Dr. Bob Nelson Glucose [Mass/Vol] 132 mg/dL Critically high 74-106 T [facility] Comment on above: Performed By: #### B MP #### [facility] [address] [address] [address] Bob Nelson Potassium [Moles/Vol] 4.1 mmol/L Normal 3.5-5.1 [facility] Comment on above: Performed By: #### B MP #### [facility] [address] [address] [address] Bob Nelson Sodium [Moles/Vol] 132 mmol/L Critically low 136-145 [facility] Comment on above: Performed By: #### B MP #### [facility] [address] [address] [address] Bob Nelson Urea nitrogen [Mass/Vol] 13.0 mg/dL Normal 7.0-18.0 [facility] Comment on above: Performed By: #### B MP #### [facility] [address] [place] [address] Dr. Bob Nelson Urea nitrogen/Creatinine [Mass ratio] 13.5 mg/mg Normal [facility] Comment on above: Performed By: #### B MP #### [facility] [address] [place] [address] Dr. Bob Nelson URINE MICROSCOPIC ONLYon BACTERIA NONE SEEN Normal NONE SEEN [facility] Comment on above: Performed By: #### B MP #### [facility] [address] [place] [address] Dr. Bob Nelson Bacteria identified Cx Nom (U) NOT INDICATED Normal [facility] Comment on above: Performed By: #### B MP #### [facility] [address] [place] [address] Dr. Bob Nelson CAST SEEN Abnormal NONE SEEN [facility] Comment on above: Performed By: #### B MP #### [facility] [address] [place] [address] Dr. Bob Nelson Crystals LM Nom (Urine sed) NONE SEEN Normal NONE SEEN [facility] Comment on above: Performed By: #### B MP #### [facility] [address] [address] [address] Bob Nelson Epithelial cells LM Ql (Urine sed) NONE SEEN Normal NONE SEEN /RARE [facility] Comment on above: Performed By: #### B MP #### [facility] [address] [place] [address] Dr. Bob Nelson MUCOUS NONE SEEN Normal NONE SEEN [facility] Comment on above: Performed By: #### B MP #### [facility] [address] [place] [address] Dr. Bob Nelson RBC NONE SEEN Abnormal 0-2 [facility] Comment on above: Performed By: #### B MP #### [facility] [address] [place] [address] Dr. Bob Nelson WBC NONE SEEN Normal NONE SEEN [facility] Comment on above: Performed By: #### B MP #### [facility] [address] [place] [address] Dr. Bob Nelson XR CHEST 1 Von [...] by: TRINITY TRINH Date: 2022-06-11 09:17 Normal [facility] LAMOTRIGINEon 05-22-2022 Lamotrigine, Serum 5.5 ug/mL Normal 2.0-20.0 [facility] Comment on above: Result Comment: Dete ction Limit = 1.0 Performed By: #### L AMOT #### [facility] [address] [place] [address] Dr. Bob Nelson CBC AUTO DIFFon 04-24-2022 BASO # 0.0 103/ul Normal 0.0-0.1 [facility] Comment on above: Performed By: #### C BC #### [facility] [address] [place] [address] Dr. Bob Nelson Basophils/100 WBC (Bld) 0.5 % Normal 0.2-2.[address] [facility] Comment on above: Performed By: #### C BC #### [facility] [address] [place] [address] Dr. Bob Nelson EO # 0.1 103/ul Normal 0.0-0.7 [facility] Comment on above: Performed By: #### C BC #### [facility] [address] [place] [address] Dr. Bob Nelson Eosinophils/100 WBC (Bld) 1.8 % Normal 0.9-7.0 [facility] Comment on above: Performed By: #### C BC #### [facility] [address] [place] [address] Dr. Bob Nelson Erythrocyte distribution width (RBC) [Ratio] 12.6 % Normal 11.0-15.0 [facility] Comment on above: Performed By: #### C BC #### [facility] [address] [place] [address] Dr. Bob Nelson Hematocrit (Bld) [Volume fraction] 48.4 % Normal 42.0-54.0 [facility] Comment on above: Performed By: #### C BC #### [facility] [address] [place] [address] Dr. Bob Nelson Hemoglobin (Bld) [Mass/Vol] 17.2 g/dL Normal 14.0-18.0 [facility] Comment on above: Performed By: #### C BC #### [facility] [address] [place] [address] Dr. Bob Nelson IG # 0.02 10e3/ul Normal 0.00-0.03 [facility] Comment on above: Performed By: #### C BC #### [facility] [address] [place] [address] Dr. Bob Nelson IG % 0.3 % Normal 0.0-0.5 [facility] Comment on above: Performed By: #### C BC #### [facility] [address] [place] [address] Dr. Bob Nelson LYMPH # 2.6 103/ul Normal 1.2-3.8 [facility] Comment on above: Performed By: #### C BC #### [facility] [address] [place] [address] Dr. Bob Nelson Lymphocytes/100 WBC (Bld) 39.4 % Normal 20.5-60.0 [facility] Comment on above: Performed By: #### C BC #### [facility] [address] [place] [address] Dr. Bob Nelson MANUAL DIFF REQ NO Normal [facility] Comment on above: Performed By: #### C BC #### [facility] [address] [place] [address] Dr. Bob Nelson MCH (RBC) [Entitic mass] 29.0 pg Normal 25.9-34.0 [facility] Comment on above: Performed By: #### C BC #### [facility] [address] [place] [address] Dr. Bob Nelson MCHC (RBC) [Mass/Vol] 35.5 g/dL Critically high 29.9-35.2 [facility] Comment on above: Performed By: #### C BC #### [facility] [address] [place] [address] Dr. Bob Nelson MCV (RBC) [Entitic vol] 81.6 fL Normal 80.0-94.[address] [facility] Comment on above: Performed By: #### C BC #### [facility] [address] [place] [address] Dr. Bob Nelson MONO # 0.5 103/ul Normal 0.3-0.8 [facility] Comment on above: Performed By: #### C BC #### [facility] [address] [place] [address] Dr. Bob Nelson Monocytes/100 WBC (Bld) 8.2 % Normal 1.7-12.[address] [facility] Comment on above: Performed By: #### C BC #### [facility] [address] [place] [address] Dr. Bob Nelson NEUT # 3.3 103/ul Normal 1.4-6.5 [facility] Comment on above: Performed By: #### C BC #### [facility] [address] [place] [address] Dr. Bob Nelson Neutrophils/100 WBC (Bld) 49.8 % Normal 43.0-75.0 [facility] Comment on above: Performed By: #### C BC #### [facility] [address] [place] [address] Dr. Bob Nelson Platelet mean volume (Bld) [Entitic vol] 9.5 fL Normal 9.5-13.5 [facility] Comment on above: Performed By: #### C BC #### [facility] [address] [place] [address] Dr. Bob Nelson PLT 225 103/ul Normal 150-450 [facility] Comment on above: Performed By: #### C BC #### [facility] [address] [place] [address] Dr. Bob Nelson RBC 5.93 106/ul Normal 4.70-6.10 [facility] Comment on above: Performed By: #### C BC #### [facility] [address] [place] [address] Dr. Bob Nelson WBC 6.6 103/ul Normal 4.0-11.0 [facility] Comment on above: Performed By: #### C BC #### [facility] [address] [place] [address] Dr. Bob Nelson DRUG SCREEN RAPID (URINE)on 04-24-2022 AMP Negative Normal NEGATIVE [facility] Comment on above: Performed By: #### B MP #### [facility] [address] [place] [address] Dr. Bob Nelson BAR Negative Normal NEGATIVE [facility] Comment on above: Performed By: #### B MP #### [facility] [address] [place] [address] Dr. Bob Nelson BUP Negative Normal NEGATIVE [facility] Comment on above: Performed By: #### B MP #### [facility] [address] [place] [address] Dr. Bob Nelson BZO Negative Normal NEGATIVE [facility] Comment on above: Performed By: #### B MP #### [facility] [address] [place] [address] Dr. Bob Nelson BETHANIE Negative Normal NEGATIVE [facility] Comment on above: Performed By: #### B MP #### [facility] [address] [place] [address] Dr. Bob Nelson CUT-OFFS SEE BELOW Normal [facility] Comment on above: Result Comment: AMP [...] By: #### B MP #### [facility] [address] [place] [address] Dr. Bob Nelson DRUG CUT HEADER DRUG CLASS TEST SYSTEM CUT-OFF CONCENTRATIONS ARE FOLLOWS: Normal [facility] Comment on above: Performed By: #### B MP #### [facility] [address] [place] [address] Dr. Bob Nelson mAMP Negative Normal NEGATIVE [facility] Comment on above: Performed By: #### B MP #### [facility] [address] [place] [address] Dr. Bob Nelson MTD Negative Normal NEGATIVE [facility] Comment on above: Performed By: #### B MP #### [facility] [address] [place] [address] Dr. Bob Nelson OPI Negative Normal NEGATIVE [facility] Comment on above: Performed By: #### B MP #### [facility] [address] [place] [address] Dr. Bob Nelson OXY Negative Normal NEGATIVE [facility] Comment on above: Performed By: #### B MP #### [facility] [address] [place] [address] Dr. Bob Nelson PCP Negative Normal NEGATIVE [facility] Comment on above: Performed By: #### B MP #### [facility] [address] [place] [address] Dr. Bob Nelson PPX Negative Normal NEGATIVE [facility] Comment on above: Performed By: #### B MP #### [facility] [address] [place] [address] Dr. Bob Nelson TCA Negative Normal NEGATIVE [facility] Comment on above: Performed By: #### B MP #### [facility] [address] [place] [address] Dr. Bob Nelson THC Negative Normal NEGATIVE [facility] Comment on above: Performed By: #### B MP #### [facility] [address] [place] [address] Dr. Bob Nelson ER URINE PROFILEon 2 Bilirubin Ql (U) Negative Normal NEGATIVE [facility] Comment on above: Performed By: #### C MP #### [facility] [address] [place] [address] Dr. Bob Nelson Clarity (U) CLEAR Normal CLEAR [facility] Comment on above: Performed By: #### C MP #### [facility] [address] [place] [address] Dr. Bob Nelson Color (U) YELLOW Normal YELLOW [facility] Comment on above: Performed By: #### C MP #### [facility] [address] [place] [address] Dr. Bob VANEGAS A micrscopic examination will be performed if indicated. Normal [facility] Comment on above: Performed By: #### C MP #### [facility] [address] [place] [address] Dr. Bob Nleson Glucose Ql (U) Negative Normal NEGATIVE [facility] Comment on above: Performed By: #### C MP #### [facility] [address] [place] [address] Dr. Bob Nelson Hemoglobin Ql (U) Negative Normal NEGATIVE [facility] Comment on above: Performed By: #### C MP #### [facility] [address] [place] [address] Dr. Bob Nelson Ketones Ql (U) Negative Normal NEGATIVE [facility] Comment on above: Performed By: #### C MP #### [facility] [address] [place] [address] Dr. Bob Nelson LEUKOCYTES Negative Normal NEGATIVE [facility] Comment on above: Performed By: #### C MP #### [facility] [address] [place] [address] Dr. Bob Nelson Nitrite Ql (U) Negative Normal NEGATIVE [facility] Comment on above: Performed By: #### C MP #### [facility] [address] [place] [address] Dr. Bob Nelson pH (U) 5.5 [pH] Normal 5-9 [facility] Comment on above: Performed By: #### C MP #### [facility] [address] [place] [address] Dr. Bob Nelson Protein (U) [Mass/Vol] 100 mg/dL Abnormal NEGAT TOMMY/ TRACE [facility] Comment on above: Performed By: #### C MP #### [facility] [address] [place] [address] Dr. Bob Nelson SPEC GRAVITY >=1.030 Abnormal 1.005-<=1.0 25 [facility] Comment on above: Performed By: #### C MP #### [facility] [address] [place] [address] Dr. Bob Nelson UR MICRO IND INDICATED Normal [facility] Comment on above: Performed By: #### C MP #### [facility] [address] [place] [address] Dr. Bob Nelson Urobilinogen Qn (U) 0.2 {Lance'U}/dL Normal 0.2 - 1. 0 [facility] Comment on above: Performed By: #### C MP #### [facility] [address] [place] [address] Dr. Bob Nelson PROF 14(COMP METB)on 022 Albumin [Mass/Vol] 4.3 g/dL Normal 3.4-5.0 [facility] Comment on above: Performed By: #### C MP #### [facility] [address] [place] [address] Dr. Bob Nelson Albumin/Globulin [Mass ratio] 1.2 {ratio} Normal [facility] Comment on above: Performed By: #### C MP #### [facility] [address] [address] [address] Bob Nelson ALP [Catalytic activity/Vol] 104 U/L Normal 46-116 [facility] Comment on above: Performed By: #### C MP #### [facility] [address] [place] [address] Dr. Bob Nelson ALT [Catalytic activity/Vol] 64 U/L Critically high 16-63 [facility] Comment on above: Performed By: #### C MP #### [facility] [address] [place] [address] Dr. Bob Nelson Anion gap [Moles/Vol] 19.9 mmol/L Normal [facility] Comment on above: Performed By: #### C MP #### [facility] [address] [place] [address] Dr. Bob Nelson AST [Catalytic activity/Vol] 26 U/L Normal 15-37 [facility] Comment on above: Performed By: #### C MP #### [facility] [address] [place] [address] Dr. Bob Nelson Bilirubin [Mass/Vol] 0.3 mg/dL Normal 0.2-1.0 [facility] Comment on above: Performed By: #### C MP #### [facility] [address] [place] [address] Dr. Bob Nelson Calcium [Mass/Vol] 9.4 mg/dL Normal 8.5-10.1 [facility] Comment on above: Performed By: #### C MP #### [facility] [address] [place] [address] Dr. Bob Nelson Chloride [Moles/Vol] 101 mmol/L Normal 98-107 [facility] Comment on above: Performed By: #### C MP #### [facility] [address] [address] [address] Bob Nelson CO2 [Moles/Vol] 20.8 mmol/L Critically low 21.0-32.0 [facility] Comment on above: Performed By: #### C MP #### [facility] [address] [address] [address] Bob Nelson Creatinine [Mass/Vol] 1.16 mg/dL Normal 0.70-1.30 [facility] Comment on above: Performed By: #### C MP #### [facility] [address] [address] [address] Bob Nelson EGFR-AF INDONESIAN >60 Normal >=60 [facility] Comment on above: Performed By: #### C MP #### [facility] [address] [address] [address] Bob Nelson EGFR-NON AF INDONESIAN >60 Normal >=60 [facility] Comment on above: Performed By: #### C MP #### [facility] [address] [address] [address] Bob Nelson Globulin (S) [Mass/Vol] 3.6 g/dL Normal [facility] Comment on above: Performed By: #### C MP #### [facility] [address] [place] [address] Dr. Bob Nelson Glucose [Mass/Vol] 152 mg/dL Critically high 74-[address] [facility] Comment on above: Performed By: #### C MP #### [facility] [address] [address] [address] Bob Nelson Potassium [Moles/Vol] 3.7 mmol/L Normal 3.5-5.1 [facility] Comment on above: Performed By: #### C MP #### [facility] [address] [address] [address] Bob Nelson Protein [Mass/Vol] 7.9 g/dL Normal 6.4-8.2 [facility] Comment on above: Performed By: #### C MP #### [facility] [address] [place] [address] Dr. Bob Nelson Sodium [Moles/Vol] 138 mmol/L Normal 136-145 [facility] Comment on above: Performed By: #### C MP #### [facility] [address] [place] [address] Dr. Bob Nelson Urea nitrogen [Mass/Vol] 12.0 mg/dL Normal 7.0-18.0 [facility] Comment on above: Performed By: #### C MP #### [facility] [address] [place] [address] Dr. Bob Nelson Urea nitrogen/Creatinine [Mass ratio] 10.3 mg/mg Normal [facility] Comment on above: Performed By: #### C MP #### [facility] [address] [place] [address] Dr. Bob Nelson TSHon 04-24-2022 TSH 3.982 uIU/mL Critically high 0.358-3.740 [facility] Comment on above: Performed By: #### C MP #### [facility] [address] [place] [address] Dr. Bob Nelson URINE MICROSCOPIC ONLYon BACTERIA NONE SEEN Normal NONE SEEN [facility] Comment on above: Performed By: #### C MP #### [facility] [address] [place] [address] Dr. Bob Nelson Bacteria identified Cx Nom (U) NOT INDICATED Normal [facility] Comment on above: Performed By: #### C MP #### [facility] [address] [place] [address] Dr. Bob Nelson CAST SEEN Abnormal NONE SEEN [facility] Comment on above: Performed By: #### C MP #### [facility] [address] [place] [address] Dr. Bob Nelson Crystals LM Nom (Urine sed) NONE SEEN Normal NONE SEEN [facility] Comment on above: Performed By: #### C MP #### [facility] [address] [place] [address] Dr. Bob Nelson Epithelial cells LM Ql (Urine sed) RARE Normal NONE SEEN /RARE [facility] Comment on above: Performed By: #### C MP #### [facility] [address] [address] [address] Bob Nelson HYALINE CAST RARE Normal [facility] Comment on above: Performed By: #### C MP #### [facility] [address] [address] [address] Bob Nelson MUCOUS NONE SEEN Normal NONE SEEN [facility] Comment on above: Performed By: #### C MP #### [facility] [address] [address] [address] Bob Nelson RBC NONE SEEN Abnormal 0-2 [facility] Comment on above: Performed By: #### C MP #### [facility] [address] [place] [address] Dr. Bob Nelson WBC NONE SEEN Normal NONE SEEN [facility] Comment on above: Performed By: #### C MP #### [facility] [address] [place] [address] Dr. Bob Nelson No Panel InformationOrdered By: Derek Burks on 04-12-2022 Semen Analysis Comment . [facility] Comment on above: NO SPERM SEEN CONFIR MED BY SECOND TECH/@KWJ&STEVAN Semen WBC Concentration <1.0 M/mL <0.9 F [facility] Sperm % Non-Motile [facility] Comment on above: Test not performed Sperm Motility Total [facility] Comment on above: Test not performed Qualitative semen viscosityO rdered By: Derek Burks on 04-12-2022 Viscosity Ql (Jeanie) Normal Normal [facility] Semen Analysis, Fertilityon 04-12-2022 Immotile Sperm Not performed Normal [facility] Comment on above: Order Comment: Metho d of Collection:: Masturbation Has the patient had a vasectomy?: N Type of Specimen Container:: Sterile Container Abstinence Period:: 48 HRS Kept at body temperature?: Y Any Collection or Transport Problems?: NO Performed By: #### S EMCOMP #### [address] Non-Progression Sperm Motili Not performed [facility] Comment on above: Order Comment: Metho d of Collection:: Masturbation Has the patient had a vasectomy?: N Type of Specimen Container:: Sterile Container Abstinence Period:: 48 HRS Kept at body temperature?: Y Any Collection or Transport Problems?: NO Performed By: #### S EMCOMP #### [facility] [address] [place] [address] Normal Sperm Morphology Not performed Normal >=4.0 [facility] Comment on above: Order Comment: Metho d of Collection:: Masturbation Has the patient had a vasectomy?: N Type of Specimen Container:: Sterile Container Abstinence Period:: 48 HRS Kept at body temperature?: Y Any Collection or Transport Problems?: NO Performed By: #### S EMCOMP #### [address] Rapid Progression Sperm Motili Not performed [facility] Comment on above: Order Comment: Metho d of Collection:: Masturbation Has the patient had a vasectomy?: N Type of Specimen Container:: Sterile Container Abstinence Period:: 48 HRS Kept at body temperature?: Y Any Collection or Transport Problems?: NO Performed By: #### S EMCOMP #### [address] Semen Comment . [facility] Comment on above: Order Comment: Metho d of Collection:: Masturbation Has the patient had a vasectomy?: N Type of Specimen Container:: Sterile Container Abstinence Period:: 48 HRS Kept at body temperature?: Y Any Collection or Transport Problems?: NO Result Comment: NO S PERM SEEN CONFIRMED BY SECOND TECH/@[facility] STEVAN PERFORMED BY: [place] [address] PATHOLOGIST [employer]ITA [employer] M.D. Performed By: #### S EMCOMP #### [address] Semen Liquefaction Normal Normal <=60 min [facility] Comment on above: Order Comment: Metho d of Collection:: Masturbation Has the patient had a vasectomy?: N Type of Specimen Container:: Sterile Container Abstinence Period:: 48 HRS Kept at body temperature?: Y Any Collection or Transport Problems?: NO Performed By: #### S EMCOMP #### [facility] [address] [place] [address] [place] Semen Viscosity Normal Normal Normal [facility] Comment on above: Order Comment: Metho d of Collection:: Masturbation Has the patient had a vasectomy?: N Type of Specimen Container:: Sterile Container Abstinence Period:: 48 HRS Kept at body temperature?: Y Any Collection or Transport Problems?: NO Performed By: #### S EMCOMP #### [address] Semen Volume 1.0 mL Low >=1.5 [facility] Comment on above: Order Comment: Metho d of Collection:: Masturbation Has the patient had a vasectomy?: N Type of Specimen Container:: Sterile Container Abstinence Period:: 48 HRS Kept at body temperature?: Y Any Collection or Transport Problems?: NO Performed By: #### S EMCOMP #### [place] [address] [place] Sperm Concentration <2.0 Low >=15 [facility] Comment on above: Order Comment: Metho d of Collection:: Masturbation Has the patient had a vasectomy?: N Type of Specimen Container:: Sterile Container Abstinence Period:: 48 HRS Kept at body temperature?: Y Any Collection or Transport Problems?: NO Result Comment: Suboptimal specimen. Unable to perform morphology testing. Performed By: #### S EMCOMP #### [place] [address] [place] Total Motility ([place]DIRECTOR OF CARDIOLOGY SERVICE LINE) Not performed Normal >=40 ([place]+DIRECTOR OF CARDIOLOGY SERVICE LINE) [facility] Comment on above: Order Comment: Metho d of Collection:: Masturbation Has the patient had a vasectomy?: N Type of Specimen Container:: Sterile Container Abstinence Period:: 48 HRS Kept at body temperature?: Y Any Collection or Transport Problems?: NO Performed By: #### S EMCOMP #### [facility] [address] [place] [address] [place] WBC Concent, Semen <1.0 Normal <1.0 [facility] Comment on above: Order Comment: Metho d of Collection:: Masturbation Has the patient had a vasectomy?: N Type of Specimen Container:: Sterile Container Abstinence Period:: 48 HRS Kept at body temperature?: Y Any Collection or Transport Problems?: NO Performed By: #### S EMCOMP #### [facility] [address] Semen Analysis, FertilityOrd ered By: Derek Burks on 04-12-2022 Semen Appearance Normal Normal Normal [facility] Comment on above: Order Comment: Metho d of Collection:: Masturbation Has the patient had a vasectomy?: N Type of Specimen Container:: Sterile Container Abstinence Period:: 48 HRS Kept at body temperature?: Y Any Collection or Transport Problems?: NO Performed By: #### S EMCOMP #### [facility] [address] [place] [address] Semen pH 6.0 Low >=7.2 [facility] Comment on above: Order Comment: Metho d of Collection:: Masturbation Has the patient had a vasectomy?: N Type of Specimen Container:: Sterile Container Abstinence Period:: 48 HRS Kept at body temperature?: Y Any Collection or Transport Problems?: NO Performed By: #### S EMCOMP #### [facility] [address] [place] [address] Semen liquefaction time abhinav urementOrdered By: Derek Burks on 04-12-2022 Liquefaction (Jeanie) [Time] Normal <=60 min [facility] Semen volumeOrdered By: Celso Burks on 04-12-2022 Specimen volume (Jeanie) 1.0 mL >1.5 [facility] Sperm countOrdered By: Derek Burks on 04-12-2022 Spermatozoa (Jeanie) [#/Vol] <2.0 M/mL >15 [facility] Comment on above: Suboptimal specimen. Unable to perform morphology testing. Sperm morphologyOrdered By: Derek Burks on 04-12-2022 Spermatozoa Nom (Jeanie) TNP [facility] Comment on above: Test not performed LAMOTRIGINEon 04-09-2022 Lamotrigine, Serum 6.7 ug/mL Normal 2.0-20.0 [facility] Comment on above: Result Comment: Dete ction Limit = 1.0 Performed By: #### C BC #### [facility] [address] [place] [address] Dr. Bob Nelson LAMOTRIGINEon 03-02-2022 Lamotrigine, Serum 2.3 ug/mL Normal 2.0-20.0 [facility] Comment on above: Result Comment: Dete ction Limit = 1.0 Performed By: #### C MP #### [facility] [address] [place] [address] Dr. Bob Nelson OXCARBAZEPINEon 03-01-2022 Oxcarbazepine 5 ug/mL Critically low 10-35 [facility] Comment on above: Result Comment: This test was developed and its performance characteristics determined by [employer]. It has not been cleared or approved by the Food and Drug Administration. Detection Limit = 1 Performed By: #### B MP #### [facility] [address] [place] [address] Dr. Bob Nelson CBC AUTO DIFFon 02-28-2022 BASO # 0.0 103/ul Normal 0.0-0.1 [facility] Comment on above: Performed By: #### C MP #### [facility] [address] [place] [address] Dr. Bob Nelson Basophils/100 WBC (Bld) 0.5 % Normal 0.2-2.[address] [facility] Comment on above: Performed By: #### C MP #### [facility] [address] [place] [address] Dr. Bob Nelson EO # 0.1 103/ul Normal 0.0-0.7 [facility] Comment on above: Performed By: #### C MP #### [facility] [address] [place] [address] Dr. Bob Nelson Eosinophils/100 WBC (Bld) 0.9 % Normal 0.9-7.0 [facility] Comment on above: Performed By: #### C MP #### [facility] [address] [address] [address] Bob Nelson Erythrocyte distribution width (RBC) [Ratio] 12.8 % Normal 11.0-15.0 [facility] Comment on above: Performed By: #### C MP #### [facility] [address] [place] [address] Dr. Bob Nelson Hematocrit (Bld) [Volume fraction] 43.8 % Normal 42.0-54.0 [facility] Comment on above: Performed By: #### C MP #### [facility] [address] [place] [address] Dr. Bob Nelson Hemoglobin (Bld) [Mass/Vol] 14.9 g/dL Normal 14.0-18.0 [facility] Comment on above: Performed By: #### C MP #### [facility] [address] [place] [address] Dr. Bob Nelson IG # 0.02 10e3/ul Normal 0.00-0.03 [facility] Comment on above: Performed By: #### C MP #### [facility] [address] [place] [address] Dr. Bob Nelson IG % 0.3 % Normal 0.0-0.5 [facility] Comment on above: Performed By: #### C MP #### [facility] [address] [place] [address] Dr. Bob Nelson LYMPH # 2.2 103/ul Normal 1.2-3.8 [facility] Comment on above: Performed By: #### C MP #### [facility] [address] [place] [address] Dr. Bob Nelson Lymphocytes/100 WBC (Bld) 34.0 % Normal 20.5-60.0 [facility] Comment on above: Performed By: #### C MP #### [facility] [address] [place] [address] Dr. Bob Nelson MANUAL DIFF REQ NO Normal [facility] Comment on above: Performed By: #### C MP #### [facility] [address] [place] [address] Dr. Bob Nelson MCH (RBC) [Entitic mass] 28.4 pg Normal 25.9-34.0 [facility] Comment on above: Performed By: #### C MP #### [facility] [address] [place] [address] Dr. Bob Nelson MCHC (RBC) [Mass/Vol] 34.0 g/dL Normal 29.9-35.2 [facility] Comment on above: Performed By: #### C MP #### [facility] [address] [place] [address] Dr. Bob Nelson MCV (RBC) [Entitic vol] 83.6 fL Normal 80.0-94.[address] [facility] Comment on above: Performed By: #### C MP #### [facility] [address] [place] [address] Dr. Bob Nelson MONO # 0.5 103/ul Normal 0.3-0.8 [facility] Comment on above: Performed By: #### C MP #### [facility] [address] [place] [address] Dr. Bob Nelson Monocytes/100 WBC (Bld) 7.9 % Normal 1.7-12.[address] [facility] Comment on above: Performed By: #### C MP #### [facility] [address] [place] [address] Dr. Bob Nelson NEUT # 3.6 103/ul Normal 1.4-6.5 [facility] Comment on above: Performed By: #### C MP #### [facility] [address] [place] [address] Dr. Bob Nelson Neutrophils/100 WBC (Bld) 56.4 % Normal 43.0-75.0 [facility] Comment on above: Performed By: #### C MP #### [facility] [address] [place] [address] Dr. Bob Nelson Platelet mean volume (Bld) [Entitic vol] 9.5 fL Normal 9.5-13.5 [facility] Comment on above: Performed By: #### C MP #### [facility] [address] [place] [address] Dr. Bob Nelson PLT 192 103/ul Normal 150-450 [facility] Comment on above: Performed By: #### C MP #### [facility] [address] [place] [address] Dr. Bob Nelson RBC 5.24 106/ul Normal 4.70-6.10 [facility] Comment on above: Performed By: #### C MP #### [facility] [address] [place] [address] Dr. Bob Nelson WBC 6.4 103/ul Normal 4.0-11.0 [facility] Comment on above: Performed By: #### C MP #### [facility] [address] [place] [address] Dr. Bob Nelson PROF 14(COMP METB)on 022 Albumin [Mass/Vol] 3.9 g/dL Normal 3.4-5.0 [facility] Comment on above: Performed By: #### C MP #### [facility] [address] [place] [address] Dr. Bob Nelson Albumin/Globulin [Mass ratio] 1.3 {ratio} Normal [facility] Comment on above: Performed By: #### C MP #### [facility] [address] [place] [address] Dr. Bob Nelson ALP [Catalytic activity/Vol] 68 U/L Normal 46-116 [facility] Comment on above: Performed By: #### C MP #### [facility] [address] [place] [address] Dr. Bob Nelson ALT [Catalytic activity/Vol] 170 U/L Critically high 16-63 [facility] Comment on above: Performed By: #### C MP #### [facility] [address] [place] [address] Dr. Bob Nelson Anion gap [Moles/Vol] 11.0 mmol/L Normal [facility] Comment on above: Performed By: #### C MP #### [facility] [address] [place] [address] Dr. Bob Nelson AST [Catalytic activity/Vol] 48 U/L Critically high 15-37 [facility] Comment on above: Performed By: #### C MP #### [facility] [address] [address] [address] Bob Nelson Bilirubin [Mass/Vol] 0.6 mg/dL Normal 0.2-1.0 [facility] Comment on above: Performed By: #### C MP #### [facility] [address] [address] [address] Bob Nelson Calcium [Mass/Vol] 9.1 mg/dL Normal 8.5-10.1 [facility] Comment on above: Performed By: #### C MP #### [facility] [address] [address] [address] Bob Nelson Chloride [Moles/Vol] 105 mmol/L Normal 98-107 [facility] Comment on above: Performed By: #### C MP #### [facility] [address] [address] [address] Bob Nelson CO2 [Moles/Vol] 28.9 mmol/L Normal 21.0-32.0 [facility] Comment on above: Performed By: #### C MP #### [facility] [address] [address] [address] Bob Nelson Creatinine [Mass/Vol] 0.96 mg/dL Normal 0.70-1.30 [facility] Comment on above: Performed By: #### C MP #### [facility] [address] [address] [address] Bob Nelson EGFR-AF INDONESIAN >60 Normal >=60 [facility] Comment on above: Performed By: #### C MP #### [facility] [address] [address] [address] Bob Nelson EGFR-NON AF INDONESIAN >60 Normal >=60 [facility] Comment on above: Performed By: #### C MP #### [facility] [address] [address] [address] Bob Nelson Globulin (S) [Mass/Vol] 3.0 g/dL Normal [facility] Comment on above: Performed By: #### C MP #### [facility] [address] [address] [address] Bob Nelson Glucose [Mass/Vol] 98 mg/dL Normal 74-106 [facility] Comment on above: Performed By: #### C MP #### [facility] [address] [address] [address] Bob Nelson Potassium [Moles/Vol] 3.9 mmol/L Normal 3.5-5.1 [facility] Comment on above: Performed By: #### C MP #### [facility] [address] [address] [address] Bob Nelson Protein [Mass/Vol] 6.9 g/dL Normal 6.4-8.2 [facility] Comment on above: Performed By: #### C MP #### [facility] [address] [address] [address] Bob Nelson Sodium [Moles/Vol] 141 mmol/L Normal 136-145 [facility] Comment on above: Performed By: #### C MP #### [facility] [address] [address] [address] Bob Nelson Urea nitrogen [Mass/Vol] 14.0 mg/dL Normal 7.0-18.0 [facility] Comment on above: Performed By: #### C MP #### [facility] [address] [address] [address] Bob Nelson Urea nitrogen/Creatinine [Mass ratio] 14.6 mg/mg Normal [facility] Comment on above: Performed By: #### C MP #### [facility] [address] [address] [address] Bob Nelson CBC AUTO DIFFon 02-27-2022 BASO # 0.0 103/ul Normal 0.0-0.1 [facility] Comment on above: Performed By: #### B MP #### [facility] [address] [address] [address] Bob Nelson Basophils/100 WBC (Bld) 0.5 % Normal 0.2-2.[address] [facility] Comment on above: Performed By: #### B MP #### [facility] [address] [place] [address] Dr. Bob Nelson EO # 0.1 103/ul Normal 0.0-0.7 [facility] Comment on above: Performed By: #### B MP #### [facility] [address] [place] [address] Dr. Bob Nelson Eosinophils/100 WBC (Bld) 0.6 % Critically low 0.9-7. 0 [facility] Comment on above: Performed By: #### B MP #### [facility] [address] [place] [address] Dr. Bob Nelson Erythrocyte distribution width (RBC) [Ratio] 12.5 % Normal 11.0-15.0 [facility] Comment on above: Performed By: #### B MP #### [facility] [address] [place] [address] Dr. Bob Nelson Hematocrit (Bld) [Volume fraction] 46.1 % Normal 42.0-54.0 [facility] Comment on above: Performed By: #### B MP #### [facility] [address] [place] [address] Dr. Bob Nelson Hemoglobin (Bld) [Mass/Vol] 16.1 g/dL Normal 14.0-18.0 [facility] Comment on above: Performed By: #### B MP #### [facility] [address] [place] [address] Dr. Bob Nelson IG # 0.02 10e3/ul Normal 0.00-0.03 [facility] Comment on above: Performed By: #### B MP #### [facility] [address] [place] [address] Dr. Bob Nelson IG % 0.3 % Normal 0.0-0.5 [facility] Comment on above: Performed By: #### B MP #### [facility] [address] [place] [address] Dr. Bob Nelson LYMPH # 1.3 103/ul Normal 1.2-3.8 [facility] Comment on above: Performed By: #### B MP #### [facility] [address] [address] [address] Bob Nelson Lymphocytes/100 WBC (Bld) 16.2 % Critically low 20.5-6 0.0 [facility] Comment on above: Performed By: #### B MP #### [facility] [address] [place] [address] Dr. Bob Nelson MANUAL DIFF REQ NO Normal [facility] Comment on above: Performed By: #### B MP #### [facility] [address] [address] [address] Bob Nelson MCH (RBC) [Entitic mass] 28.6 pg Normal 25.9-34.0 [facility] Comment on above: Performed By: #### B MP #### [facility] [address] [place] [address] Dr. Bob Nelson MCHC (RBC) [Mass/Vol] 34.9 g/dL Normal 29.9-35.2 [facility] Comment on above: Performed By: #### B MP #### [facility] [address] [place] [address] Dr. Bob Nelson MCV (RBC) [Entitic vol] 81.9 fL Normal 80.0-94.[address] [facility] Comment on above: Performed By: #### B MP #### [facility] [address] [place] [address] Dr. Bob Nelson MONO # 0.4 103/ul Normal 0.3-0.8 [facility] Comment on above: Performed By: #### B MP #### [facility] [address] [place] [address] Dr. Bob Nelson Monocytes/100 WBC (Bld) 5.0 % Normal 1.7-12.[address] [facility] Comment on above: Performed By: #### B MP #### [facility] [address] [place] [address] Dr. Bob Nelson NEUT # 6.1 103/ul Normal 1.4-6.5 [facility] Comment on above: Performed By: #### B MP #### [facility] [address] [place] [address] Dr. Bob Nelson Neutrophils/100 WBC (Bld) 77.4 % Critically high 43.0- 75.0 [facility] Comment on above: Performed By: #### B MP #### [facility] [address] [place] [address] Dr. Bob Nelson Platelet mean volume (Bld) [Entitic vol] 9.5 fL Normal 9.5-13.5 [facility] Comment on above: Performed By: #### B MP #### [facility] [address] [place] [address] Dr. Bob Nelson PLT 203 103/ul Normal 150-450 [facility] Comment on above: Performed By: #### B MP #### [facility] [address] [place] [address] Dr. Bob Nelson RBC 5.63 106/ul Normal 4.70-6.10 [facility] Comment on above: Performed By: #### B MP #### [facility] [address] [place] [address] Dr. Bob Nelson WBC 7.9 103/ul Normal 4.0-11.0 [facility] Comment on above: Performed By: #### B MP #### [facility] [address] [place] [address] HEAD WO CONon [...] 2. Mild chronic sinusitis. Electronically authenticated by: CHERICARLOS A CONNER Date: 2022-02-27 15:43 Normal [facility] Covid-19 PCR (CVDTB)on SARS-CoV-2 (COVID-19) RNA MAHESH+probe Ql (Unsp spec) Not detected Normal NOT DETECTED [facility] Comment on above: Result Comment: When [...] for this test is supported by the [place] [employer] and Human Service's declaration that [...] By: #### C MP #### [facility] [address] [place] [address] Dr. Bob Nelson LACTATE/LACTIC ACIDon 2021 Lactate [Moles/Vol] 0.9 mmol/L Normal 0.4-1.9 [facility] Comment on above: Performed By: #### L ACT #### [facility] [address] [place] [address] Dr. Bob Nelson Lactate [Moles/Vol] 3.9 mmol/L Critically high 0.4-1.9 [facility] Comment on above: Performed By: #### B MP #### [facility] [address] [place] [address] Dr. Bob Nelson PROF CHEM 8 (BAS METB)on Anion gap [Moles/Vol] 16.1 mmol/L Normal [facility] Comment on above: Performed By: #### B MP #### [facility] [address] [address] [address] Bob Nelson Calcium [Mass/Vol] 8.9 mg/dL Normal 8.5-10.1 [facility] Comment on above: Performed By: #### B MP #### [facility] [address] [address] [address] oBb Nelson Chloride [Moles/Vol] 99 mmol/L Normal 98-107 [facility] Comment on above: Performed By: #### B MP #### [facility] [address] [address] [address] Bob Nelson CO2 [Moles/Vol] 24.0 mmol/L Normal 21.0-32.0 [facility] Comment on above: Performed By: #### B MP #### [facility] [address] [place] [address] Dr. Bob Nelson Creatinine [Mass/Vol] 1.13 mg/dL Normal 0.70-1.30 [facility] Comment on above: Performed By: #### B MP #### [facility] [address] [address] [address] Bob Nelson EGFR-AF INDONESIAN >60 Normal >=60 [facility] Comment on above: Performed By: #### B MP #### [facility] [address] [place] [address] Dr. Bob Nelson EGFR-NON AF INDONESIAN >60 Normal >=60 [facility] Comment on above: Performed By: #### B MP #### [facility] [address] [address] [address] Bob Nelson Glucose [Mass/Vol] 158 mg/dL Critically high 74-[address] [facility] Comment on above: Performed By: #### B MP #### [facility] [address] [place] [address] Dr. Bob Nelson Potassium [Moles/Vol] 4.1 mmol/L Normal 3.5-5.1 [facility] Comment on above: Performed By: #### B MP #### [facility] [address] [address] [address] Bob Nelson Sodium [Moles/Vol] 135 mmol/L Critically low 136-145 [facility] Comment on above: Performed By: #### B MP #### [facility] [address] [place] [address] Dr. Bob Nelson Urea nitrogen [Mass/Vol] 15.0 mg/dL Normal 7.0-18.0 [facility] Comment on above: Performed By: #### B MP #### [facility] [address] [place] [address] Dr. Bob Nelson Urea nitrogen/Creatinine [Mass ratio] 13.3 mg/mg Normal [facility] Comment on above: Performed By: #### B MP #### [facility] [address] [place] [address] Dr. Bob Nelson UA (CLEAN/CATCH) [employer]/MICRO I F IND.on 02-27-2022 Bilirubin Ql (U) Negative Normal NEGATIVE [facility] Comment on above: Performed By: #### C MP #### [facility] [address] [place] [address] Dr. Bob Nelson Clarity (U) CLEAR Normal CLEAR [facility] Comment on above: Performed By: #### C MP #### [facility] [address] [place] [address] Dr. Bob Nelson Color (U) LT. YELLOW Normal YELLOW [facility] Comment on above: Performed By: #### C MP #### [facility] [address] [place] [address] Dr. Bob Nelson Glucose Ql (U) Negative Normal NEGATIVE [facility] Comment on above: Performed By: #### C MP #### [facility] [address] [place] [address] Dr. Bob Nelson Hemoglobin Ql (U) TRACE-INTACT Abnormal NEGATIVE [facility] Comment on above: Performed By: #### C MP #### [facility] [address] [place] [address] Dr. Bob Nelson Ketones Ql (U) Negative Normal NEGATIVE [facility] Comment on above: Performed By: #### C MP #### [facility] [address] [place] [address] Dr. Bob Nelson LEUKOCYTES Negative Normal NEGATIVE [facility] Comment on above: Performed By: #### C MP #### [facility] [address] [place] [address] Dr. Bob Nelson Nitrite Ql (U) Negative Normal NEGATIVE [facility] Comment on above: Performed By: #### C MP #### [facility] [address] [place] [address] Dr. Bob Nelson pH (U) 5.5 [pH] Normal 5-9 [facility] Comment on above: Performed By: #### C MP #### [facility] [address] [place] [address] Dr. Bob Nelson SPEC GRAVITY 1.010 Normal 1.005-<=1.0 25 [facility] Comment on above: Performed By: #### C MP #### [facility] [address] [place] [address] Dr. Bob Nelson UA PROTEIN Negative Normal NEGATIVE/ TRACE [facility] Comment on above: Performed By: #### C MP #### [facility] [address] [place] [address] Dr. Bob Nelson UR MICRO IND INDICATED Normal [facility] Comment on above: Performed By: #### C MP #### [facility] [address] [place] [address] Dr. Bob Nelson Urobilinogen Qn (U) 0.2 {Lance'U}/dL Normal 0.2 - 1. 0 [facility] Comment on above: Performed By: #### C MP #### [facility] [address] [place] [address] Dr. Bob Nelson URINE MICROSCOPIC ONLYon BACTERIA NONE SEEN Normal NONE SEEN [facility] Comment on above: Performed By: #### C MP #### [facility] [address] [place] [address] Dr. Bob Nelson Bacteria identified Cx Nom (U) NOT INDICATED Normal [facility] Comment on above: Performed By: #### C MP #### [facility] [address] [place] [address] Dr. Bob Nelson CAST NONE SEEN Normal NONE SEEN [facility] Comment on above: Performed By: #### C MP #### [facility] [address] [place] [address] Dr. Bob Nelson Crystals LM Nom (Urine sed) NONE SEEN Normal NONE SEEN [facility] Comment on above: Performed By: #### C MP #### [facility] [address] [place] [address] Dr. Bob Nelson Epithelial cells LM Ql (Urine sed) RARE Normal NONE SEEN /RARE [facility] Comment on above: Performed By: #### C MP #### [facility] [address] [place] [address] Dr. Bob Nelson MUCOUS NONE SEEN Normal NONE SEEN [facility] Comment on above: Performed By: #### C MP #### [facility] [address] [place] [address] Dr. Bob Nelson RBC 0-2 Normal 0-2 [facility] Comment on above: Performed By: #### C MP #### [facility] [address] [place] [address] Dr. Bob Nelson WBC NONE SEEN Normal NONE SEEN [facility] Comment on above: Performed By: #### C MP #### [facility] [address] [place] [address] Dr. Bob Nelson XR CHEST 2 Von [...] Date: 2022-02-27 15:45 Normal [facility] CBC AUTO DIFFon 02-02-2022 BASO # 0.0 103/ul Normal 0.0-0.1 [facility] Comment on above: Performed By: #### C MP #### [facility] [address] [place] [address] Dr. Bob Nelson Basophils/100 WBC (Bld) 0.2 % Normal 0.2-2.[address] [facility] Comment on above: Performed By: #### C MP #### [facility] [address] [place] [address] Dr. Bob Nelson EO # 0.1 103/ul Normal 0.0-0.7 [facility] Comment on above: Performed By: #### C MP #### [facility] [address] [place] [address] Dr. Bob Nelson Eosinophils/100 WBC (Bld) 0.7 % Critically low 0.9-7. 0 [facility] Comment on above: Performed By: #### C MP #### [facility] [address] [place] [address] Dr. Bob Nelson Erythrocyte distribution width (RBC) [Ratio] 12.4 % Normal 11.0-15.0 [facility] Comment on above: Performed By: #### C MP #### [facility] [address] [place] [address] Dr. Bob Nelson Hematocrit (Bld) [Volume fraction] 46.1 % Normal 42.0-54.0 [facility] Comment on above: Performed By: #### C MP #### [facility] [address] [place] [address] Dr. Bob Nelson Hemoglobin (Bld) [Mass/Vol] 16.0 g/dL Normal 14.0-18.0 [facility] Comment on above: Performed By: #### C MP #### [facility] [address] [place] [address] Dr. Bob Nelson IG # 0.03 10e3/ul Normal 0.00-0.03 [facility] Comment on above: Performed By: #### C MP #### [facility] [address] [place] [address] Dr. Bob Nelson IG % 0.3 % Normal 0.0-0.5 [facility] Comment on above: Performed By: #### C MP #### [facility] [address] [address] [address] Bob Nelson LYMPH # 1.5 103/ul Normal 1.2-3.8 [facility] Comment on above: Performed By: #### C MP #### [facility] [address] [address] [address] Bob Nelson Lymphocytes/100 WBC (Bld) 16.0 % Critically low 20.5-6 0.0 [facility] Comment on above: Performed By: #### C MP #### [facility] [address] [address] [address] Bob Nelson MANUAL DIFF REQ NO Normal [facility] Comment on above: Performed By: #### C MP #### [facility] [address] [place] [address] Dr. Bob Nelson MCH (RBC) [Entitic mass] 28.6 pg Normal 25.9-34.0 [facility] Comment on above: Performed By: #### C MP #### [facility] [address] [place] [address] Dr. Bob Nelson MCHC (RBC) [Mass/Vol] 34.7 g/dL Normal 29.9-35.2 [facility] Comment on above: Performed By: #### C MP #### [facility] [address] [place] [address] Dr. Bob Nelson MCV (RBC) [Entitic vol] 82.5 fL Normal 80.0-94.[address] [facility] Comment on above: Performed By: #### C MP #### [facility] [address] [place] [address] Dr. Bob Nelson MONO # 0.6 103/ul Normal 0.3-0.8 [facility] Comment on above: Performed By: #### C MP #### [facility] [address] [place] [address] Dr. Bob Nelson Monocytes/100 WBC (Bld) 5.7 % Normal 1.7-12.[address] [facility] Comment on above: Performed By: #### C MP #### [facility] [address] [address] [address] Bob Nelson NEUT # 7.4 103/ul Critically high 1.4-6.5 [facility] Comment on above: Performed By: #### C MP #### [facility] [address] [address] [address] Bob Nelson Neutrophils/100 WBC (Bld) 77.1 % Critically high 43.0- 75.0 [facility] Comment on above: Performed By: #### C MP #### [facility] [address] [address] [address] Bob Nelson Platelet mean volume (Bld) [Entitic vol] 9.3 fL Critically low 9.5-13.5 [facility] Comment on above: Performed By: #### C MP #### [facility] [address] [place] [address] Dr. Bob Nelson PLT 184 103/ul Normal 150-450 [facility] Comment on above: Performed By: #### C MP #### [facility] [address] [address] [address] Bob Nelson RBC 5.59 106/ul Normal 4.70-6.10 [facility] Comment on above: Performed By: #### C MP #### [facility] [address] [place] [address] Dr. Bob Nelson WBC 9.6 103/ul Normal 4.0-11.0 [facility] Comment on above: Performed By: #### C MP #### [facility] [address] [place] [address] Dr. Bob Nelson PROF 14(COMP METB)on 022 Albumin [Mass/Vol] 4.3 g/dL Normal 3.4-5.0 [facility] Comment on above: Performed By: #### C BC #### [facility] [address] [place] [address] Dr. Bob Nelson Albumin/Globulin [Mass ratio] 1.3 {ratio} Normal [facility] Comment on above: Performed By: #### C BC #### [facility] [address] [address] [address] Bob Nelson ALP [Catalytic activity/Vol] 86 U/L Normal 46-116 [facility] Comment on above: Performed By: #### C BC #### [facility] [address] [place] [address] Dr. Bob Nelson ALT [Catalytic activity/Vol] 87 U/L Critically high 16-63 [facility] Comment on above: Performed By: #### C BC #### [facility] [address] [address] [address] Bob Nelson Anion gap [Moles/Vol] 11.9 mmol/L Normal Th [facility] Comment on above: Performed By: #### C BC #### [facility] [address] [place] [address] Dr. Bob Nelson AST [Catalytic activity/Vol] 44 U/L Critically high 15-37 [facility] Comment on above: Performed By: #### C BC #### [facility] [address] [place] [address] Dr. Bob Nelson Bilirubin [Mass/Vol] 0.3 mg/dL Normal 0.2-1.0 [facility] Comment on above: Performed By: #### C BC #### [facility] [address] [place] [address] Dr. Bob Nelson Calcium [Mass/Vol] 9.3 mg/dL Normal 8.5-10.1 [facility] Comment on above: Performed By: #### C BC #### [facility] [address] [place] [address] Dr. Bob Nelson Chloride [Moles/Vol] 102 mmol/L Normal 98-107 [facility] Comment on above: Performed By: #### C BC #### [facility] [address] [place] [address] Dr. Bob Nelson CO2 [Moles/Vol] 27.8 mmol/L Normal 21.0-32.0 [facility] Comment on above: Performed By: #### C BC #### [facility] [address] [place] [address] Dr. Bob Nelson Creatinine [Mass/Vol] 1.16 mg/dL Normal 0.70-1.30 [facility] Comment on above: Performed By: #### C BC #### [facility] [address] [address] [address] Bob Nelson EGFR-AF INDONESIAN >60 Normal >=60 [facility] Comment on above: Performed By: #### C BC #### [facility] [address] [address] [address] Bob Nelson EGFR-NON AF INDONESIAN >60 Normal >=60 [facility] Comment on above: Performed By: #### C BC #### [facility] [address] [address] [address] Bob Nelson Globulin (S) [Mass/Vol] 3.3 g/dL Normal [facility] Comment on above: Performed By: #### C BC #### [facility] [address] [address] [address] Bob Nelson Glucose [Mass/Vol] 112 mg/dL Critically high 74-[address] [facility] Comment on above: Performed By: #### C BC #### [facility] [address] [address] [address] Bbo Nelson Potassium [Moles/Vol] 3.7 mmol/L Normal 3.5-5.1 [facility] Comment on above: Performed By: #### C BC #### [facility] [address] [address] [address] Bob Nelson Protein [Mass/Vol] 7.6 g/dL Normal 6.4-8.2 [facility] Comment on above: Performed By: #### C BC #### [facility] [address] [address] [address] Bob Nelson Sodium [Moles/Vol] 138 mmol/L Normal 136-145 [facility] Comment on above: Performed By: #### C BC #### [facility] [address] [address] [address] Bob Nelson Urea nitrogen [Mass/Vol] 11.0 mg/dL Normal 7.0-18.0 [facility] Comment on above: Performed By: #### C BC #### [facility] [address] [place], [place] [address] Dr. Bob Nelson Urea nitrogen/Creatinine [Mass ratio] 9.5 mg/mg Normal [facility] Comment on above: Performed By: #### C BC #### [facility] [address] [place], [place] [address] Dr. Bob Nelson Progress Noteson 02-02-2022 Media Reporter Authentication Interface Message Text EMERGENCY TRIAGE, TREAT AND TRANSPORT (ET3) DOCUMENTATION OF TELEHEALTH VISIT Date / Time: 02/02/2022599 Name: Corey Alonso : 1995 SSN: [id number] EMS Agency: [facility] [x] Verbal consent obtained [] [...] Completed by: Maritza Romo MD Normal [facility] [employer] [facility] CBC AUTO DIFFon 12-30-2021 BASO # 0.0 103/ul Normal 0.0-0.1 [facility] Comment on above: Performed By: #### C BC #### [facility] [address] [place] [address] Dr. Bob Nelson Basophils/100 WBC (Bld) 0.6 % Normal 0.2-2.[address] [facility] Comment on above: Performed By: #### C BC #### [facility] [address] [place] [address] Dr. Bob Nelson EO # 0.0 103/ul Normal 0.0-0.7 [facility] Comment on above: Performed By: #### C BC #### [facility] [address] [place] [address] Dr. Bob Nelson Eosinophils/100 WBC (Bld) 0.6 % Critically low 0.9-7. 0 [facility] Comment on above: Performed By: #### C BC #### [facility] [address] [place] [address] Dr. Bob Nelson Erythrocyte distribution width (RBC) [Ratio] 12.3 % Normal 11.0-15.0 [facility] Comment on above: Performed By: #### C BC #### [facility] [address] [place] [address] Dr. Bob Nelson Hematocrit (Bld) [Volume fraction] 48.5 % Normal 42.0-54.0 [facility] Comment on above: Performed By: #### C BC #### [facility] [address] [place] [address] Dr. Bob Nelson Hemoglobin (Bld) [Mass/Vol] 16.1 g/dL Normal 14.0-18.0 [facility] Comment on above: Performed By: #### C BC #### [facility] [address] [place] [address] Dr. Bob Nelson IG # 0.03 10e3/ul Normal 0.00-0.03 [facility] Comment on above: Performed By: #### C BC #### [facility] [address] [place] [address] Dr. Bob Nelson IG % 0.4 % Normal 0.0-0.5 [facility] Comment on above: Performed By: #### C BC #### [facility] [address] [place] [address] Dr. Bob Nelson LYMPH # 2.2 103/ul Normal 1.2-3.8 [facility] Comment on above: Performed By: #### C BC #### [facility] [address] [place] [address] Dr. Bob Nelson Lymphocytes/100 WBC (Bld) 30.6 % Normal 20.5-60.0 [facility] Comment on above: Performed By: #### C BC #### [facility] [address] [place] [address] Dr. Bob Nelson MANUAL DIFF REQ NO Normal [facility] Comment on above: Performed By: #### C BC #### [facility] [address] [place] [address] Dr. oBb Nelson MCH (RBC) [Entitic mass] 28.1 pg Normal 25.9-34.0 [facility] Comment on above: Performed By: #### C BC #### [facility] [address] [place] [address] Dr. Bob Nelson MCHC (RBC) [Mass/Vol] 33.2 g/dL Normal 29.9-35.2 [facility] Comment on above: Performed By: #### C BC #### [facility] [address] [place] [address] Dr. Bob Nelson MCV (RBC) [Entitic vol] 84.6 fL Normal 80.0-94.[address] [facility] Comment on above: Performed By: #### C BC #### [facility] [address] [place] [address] Dr. Bob Nelson MONO # 0.4 103/ul Normal 0.3-0.8 [facility] Comment on above: Performed By: #### C BC #### [facility] [address] [place] [address] Dr. Bob Nelson Monocytes/100 WBC (Bld) 6.1 % Normal 1.7-12.[address] [facility] Comment on above: Performed By: #### C BC #### [facility] [address] [place] [address] Dr. Bob Nelson NEUT # 4.4 103/ul Normal 1.4-6.5 [facility] Comment on above: Performed By: #### C BC #### [facility] [address] [place] [address] Dr. Bob Nelson Neutrophils/100 WBC (Bld) 61.7 % Normal 43.0-75.0 [facility] Comment on above: Performed By: #### C BC #### [facility] [address] [place] [address] Dr. Bob Nelson Platelet mean volume (Bld) [Entitic vol] 9.5 fL Normal 9.5-13.5 [facility] Comment on above: Performed By: #### C BC #### [facility] [address] [place] [address] Dr. Bob Nelson PLT 228 103/ul Normal 150-450 [facility] Comment on above: Performed By: #### C BC #### [facility] [address] [place], [place] [address] Dr. Bob Nelson RBC 5.73 106/ul Normal 4.70-6.10 [facility] Comment on above: Performed By: #### C BC #### [facility] [address] [place], [place] [address] Dr. Bob Nelson WBC 7.2 103/ul Normal 4.0-11.0 [facility] Comment on above: Performed By: #### C BC #### [facility] [address] [place], [place] [address] CSPINE WO CONon [...] Date: 2021-12-30 20:14 Normal [facility] CT HEAD WO CONon 12-30-2021 CT [...] Date: 2021-12-30 20:37 Normal [facility] PROF CHEM 8 (BAS METB)on Anion gap [Moles/Vol] 24.1 mmol/L Normal [facility] Comment on above: Performed By: #### B MP #### [facility] [address] [place] [address] Dr. Bob Nelson Calcium [Mass/Vol] 9.3 mg/dL Normal 8.5-10.1 [facility] Comment on above: Performed By: #### B MP #### [facility] [address] [address] [address] Bob Nelson Chloride [Moles/Vol] 101 mmol/L Normal 98-107 [facility] Comment on above: Performed By: #### B MP #### [facility] [address] [address] [address] Bob Nelson CO2 [Moles/Vol] 16.9 mmol/L Critically low 21.0-32.0 [facility] Comment on above: Performed By: #### B MP #### [facility] [address] [address] [address] Bob Nelson Creatinine [Mass/Vol] 1.13 mg/dL Normal 0.70-1.30 [facility] Comment on above: Performed By: #### B MP #### [facility] [address] [place] [address] Dr. Bob Nelson EGFR-AF INDONESIAN >60 Normal >=60 [facility] Comment on above: Performed By: #### B MP #### [facility] [address] [place] [address] Dr. Bob Nelson EGFR-NON AF INDONESIAN >60 Normal >=60 [facility] Comment on above: Performed By: #### B MP #### [facility] [address] [address] [address] Bob Nelson Glucose [Mass/Vol] 107 mg/dL Critically high 74-106 T [facility] Comment on above: Performed By: #### B MP #### [facility] [address] [address] [address] Bob Nelson Potassium [Moles/Vol] 4.0 mmol/L Normal 3.5-5.1 [facility] Comment on above: Performed By: #### B MP #### [facility] [address] [address] [address] Bob Nelson Sodium [Moles/Vol] 138 mmol/L Normal 136-145 [facility] Comment on above: Performed By: #### B MP #### [facility] [address] [address] [address] Bob Nelson Urea nitrogen [Mass/Vol] 14.0 mg/dL Normal 7.0-18.0 [facility] Comment on above: Performed By: #### B MP #### [facility] [address] [address] [address] Bob Nelson Urea nitrogen/Creatinine [Mass ratio] 12.4 mg/mg Normal [facility] Comment on above: Performed By: #### B MP #### [facility] [address] [address] [address] Bob Nelson ELECTROENCEPHALOGRAMon 11-[address] [address] ELECTROENCEPHALOGRAM REPORT PATIENT NAME: COREY ALONSO : 1995 MED REC NO: [id number] ROOM: ACCOUNT NO: [id number] ADMIT DATE: 11/28/2021 PROVIDER: Brian Granado DATE [...] focal slowing or epileptiform activity. BRIAN GRANADO [id number] Doc#: [id number] CC: Emeli Chi, Gege Normal [facility] MRI BRAIN WO CONTRASTon 05-0 MRI BRAIN WO CONTRAST EXAMINATION: MRI OF THE BRAIN WITHOUT CONTRAST 11/28/2021 9:44 am TECHNIQUE: Multiplanar multisequence MRI of the brain was performed without the administration of intravenous contrast. COMPARISON: None HISTORY: ORDERING SYSTEM PROVIDED HISTORY: Partial symptomatic epilepsy with complex partial seizures, intractable, without status epilepticus ([facility]) TECHNOLOGIST PROVIDED HISTORY: epilepsy What is the [...] Anjali Lozoya MD 11/28/21 Final result Normal [facility] ANES POSTPROC EVALon 022 ANES POSTPROC EVAL HNO ID: [id number] Author: Tung Macias MD Service: Anesthesiology Author Type: Anesthesiologist Type: Anesthesia Postprocedure Evaluation Filed: 09/01/2021 6:31 AM Note Text: POST ANESTHESIA EVALUATION NOTE : 1995 Procedure Summary Date: 08/31/21 Room / Location: [address] / [facility] Anesthesia Start: 1303 Anesthesia Stop: 1358 Procedure: [...] September 01, 2021 TIME: 6:31 AM CSN: [id number] [facility] ANES PRE-OPon 08-31-2021 ANES PRE-OP HNO ID: [id number] Author: Tung Macias MD Service: Anesthesiology Author Type: Anesthesiologist Type: Anesthesia Preprocedure Evaluation Filed: 08/31/2021 12:08 PM Note Text: ANESTHESIOLOGY DAY OF SURGERY NOTE : 1995 Procedure Information Date/Time: 08/31/21 1215 Procedure: CYSTOURETHROSCOPY W/ INCISION OF EJACULATORY DUCTS (Right Urethra) Location: [address] / [facility] Surgeons: Domi Scruggs MD Estimated body mass [...] August 31, 2021 TIME: 12:08 PM CSN: [id number] [facility] OPERATIVE NOon 08-31-2021 OPERATIVE NO HNO ID: [id number] Author: Domi Scruggs MD Service: Urology Author Type: Physician Type: Operative Report Filed: 08/31/2021 3:22 PM Note Text: [facility] UROLOGY OPERATIVE REPORT Patient Name: Corey Alonso III Patient Log ID: [id number] Surgery Date: 08/31/2021 Incision/Procedure Start Time: 1:17 PM Incision Close/Procedure End Time: 1:47 PM Surgeon(s) and Wash Driller(s): Surgeon(s) and Role: * Domi Scruggs MD [...] stricture was dilated using a series of Hallie Sounds to 28Fr. The scope then passed [...] made to terminate the procedure. An 18Fr [place] tip catheter was inserted over a solo wire and used to drain the bladder. 10cc was added to the balloon. The patient tolerated the procedure well and was taken to the recovery area in stable condition. Estimated Blood Loss 5mL Specimens * No specimens in log * Implantable Devices None Drains 1. 18Fr [place] tip Leal (10cc in balloon) Complications None Accidental perforations or lacerations None The primary surgeon performed the procedure with assistance from the resident Dictated by Won Huerta MD, PhD on behalf of Domi Scruggs MD [facility] CARDIAC SHARON ADMITon 017 CKMB 1.27 ng/mL Normal <=2.37 [facility] Comment on above: Performed By: #### B MP, LIPA, LIVER, CMADM ####[facility] [address] Creatine kinase (CK) 79 U/L Normal 55-170 [facility] Comment on above: Performed By: #### B MP, LIPA, LIVER, CMADM ####[facility] [address] [place] [address] [place] INR Coag RelTime (Bld) SEE BELOW Normal Th [facility] Comment on above: Result Comment: <0.0 34 ng/ml NEGATIVE 0.034-0.119 INDETERMINATE 0.120 AMI CUT OFF Performed By: #### B MP, LIPA, LIVER, CMADM ####[facility] [address] [place] [address] [place] JOSH 36.0 ng/mL Normal <=121.0 [facility] Comment on above: Performed By: #### B MP, LIPA, LIVER, CMADM ####[facility] [address] [place] [address] [place] TROP <0.012 Normal <=0.034 [facility] Comment on above: Performed By: #### B MP, LIPA, LIVER, CMADM ####[facility] [address] [place] [address] [place] CBC AUTO DIFFon 05-03-2017 Basophils Auto #/vol (Bld) 0.0 103/ul Normal 0.0-0.1 [facility] Comment on above: Performed By: #### C BC ####[facility] [address] Basophils/100 WBC Auto (Bld) 0.7 % Normal 0.2-2.0 [facility] Comment on above: Performed By: #### C BC ####[facility] [address] [place] [address] [place] Eosinophils 0.1 103/ul Normal 0.0-0.7 [facility] Comment on above: Performed By: #### C BC ####[facility] [address] [place] [address] [place] Eosinophils/100 leukocytes 1.1 % Normal 0.9-7.0 [facility] Comment on above: Performed By: #### C BC ####[facility] [address] [place] [address] [place] Erythrocyte distribution width Auto Ratio (RBC) 12.8 % Normal 11.0-15.0 [facility] Comment on above: Performed By: #### C BC ####[facility] [address] [place] [address] [place] Erythrocytes (RBC) 4.96 106/ul Normal 4.70-6.10 [facility] Comment on above: Performed By: #### C BC ####[facility] [address] [place] [address] [place] Hematocrit (HCT) 40.6 % Critically low 42.0-54.0 [facility] Comment on above: Performed By: #### C BC ####[facility] [address] [place] [address] [place] Hemoglobin mass conc (Bld) 14.1 g/dL Normal 14.0-18.0 [facility] Comment on above: Performed By: #### C BC ####[facility] [address] [place], [place] [address] [place] IG # 0.03 10e3/ul Normal 0.00-0.03 [facility] Comment on above: Performed By: #### C BC ####[facility] [address] [place] [address] [place] IG % 0.5 % Normal 0.0-0.5 [facility] Comment on above: Performed By: #### C BC ####[facility] Bu[address]ad[address] [place] Lymphocytes 1.7 103/ul Normal 1.2-3.8 [facility] Comment on above: Performed By: #### C BC ####[facility] U[address]owhte[address] [place] Lymphocytes/100 leukocytes 30.6 % Normal 20.5-60.0 [facility] Comment on above: Performed By: #### C BC ####[facility] O[address] [place] MANUAL DIFF REQ NO Normal [facility] Comment on above: Performed By: #### C BC ####[facility] [address] [place] [address] [place] MCH 28.4 pg Normal 25.9-34.0 [facility] Comment on above: Performed By: #### C BC ####[facility] Riq[address]qiv8417 [address] [place] MCHC mass conc (RBC) 34.7 g/dL Normal 29.9-35.2 [facility] Comment on above: Performed By: #### C BC ####[facility] N[address]vv[address] [place] MCV 81.9 fL Normal 80.0-94.0 [facility] Comment on above: Performed By: #### C BC ####[facility] Xwpkswevjc[address]65 [address] [place] Monocytes 0.3 103/ul Normal 0.3-0.8 [facility] Comment on above: Performed By: #### C BC ####[facility] Ot[address]vf[address] [place] Monocytes/100 leukocytes 5.7 % Normal 1.7-12.0 [facility] Comment on above: Performed By: #### C BC ####[facility] [address] [id number] Neutrophils 3.5 103/ul Normal 1.4-6.5 [facility] Comment on above: Performed By: #### C BC ####[facility] [address] [id number] Neutrophils/100 WBC Auto (Bld) 61.4 % Normal 43.0-75.0 [facility] Comment on above: Performed By: #### C BC ####[facility] [address] [id number] Platelet mean volume (PMV) 9.3 fL Critically low 9.5-13.5 [facility] Comment on above: Performed By: #### C BC ####[facility] [address] [place], [place] [address] Platelets 221 103/ul Normal 150-450 [facility] Comment on above: Performed By: #### C BC ####[facility] [address] [id number] WBC (Leukocytes) 5.7 103/ul Normal 4.0-11.0 [facility] Comment on above: Performed By: #### C BC ####[facility] [address] [id number] LIPASEon 05-03-2017 Lipase 55.0 U/L Normal 23.0-300.0 [facility] Comment on above: Performed By: #### B MP, LIPA, LIVER, CMADM ####[facility] [address] [id number] LIVER PROFILEon 05-03-2017 Alanine aminotransferase (ALT) 35 U/L Normal 21-72 [facility] Comment on above: Performed By: #### B MP, LIPA, LIVER, CMADM ####[facility] [address] [id number] Albumin 4.4 g/dL Normal 3.5-5.0 [facility] Comment on above: Performed By: #### B MP, LIPA, LIVER, CMADM ####[facility] B[address]um[address] [place] Albumin/Globulin Ratio 1.4 {ratio} Normal T [facility] Comment on above: Performed By: #### B MP, LIPA, LIVER, CMADM ####[facility] [address] [id number] Alkaline phosphatase (ALP) 74 U/L Normal 38-126 [facility] Comment on above: Performed By: #### B MP, LIPA, LIVER, CMADM ####[facility] D[address]uxpt64[address] [place] Aspartate aminotransferase (AST) 21 U/L Normal 17-59 [facility] Comment on above: Performed By: #### B MP, LIPA, LIVER, CMADM ####[facility] P[address]gzpa[address]35 [address] [place] BILI, CONJUGATED 0.0 mg/dL Normal 0.0-0.3 [facility] Comment on above: Performed By: #### B MP, LIPA, LIVER, CMADM ####[facility] Zagdoznwxb[address]12 [address] [place] Bilirubin Ql (U) 0.8 mg/dL Normal 0.2-1.3 [facility] Comment on above: Performed By: #### B MP, LIPA, LIVER, CMADM ####[facility] Yjaqqzuntk[address] [place] Globulin 3.1 g/dL Normal [facility] Comment on above: Performed By: #### B MP, LIPA, LIVER, CMADM ####[facility] Xscxeujlju9795 [address] [place] Protein 7.5 g/dL Normal 6.1-8.2 [facility] Comment on above: Performed By: #### B MP, LIPA, LIVER, CMADM ####[facility] L[address] [place] PROF CHEM 8 (BAS METB)on Anion gap 12.7 mmol/L Normal [facility] Comment on above: Performed By: #### B MP, LIPA, LIVER, CMADM ####[facility] Fhamhdpesj[address] [place] BUN/Creatinine Ratio 14.4 mg/mg Normal [facility] Comment on above: Performed By: #### B MP, LIPA, LIVER, CMADM ####[facility] Uojqzzebfg4[address] [place] Calcium 9.6 mg/dL Normal 8.4-10.2 [facility] Comment on above: Performed By: #### B MP, LIPA, LIVER, CMADM ####[facility] Romnzxcnvg9621 [address] [place] Chloride 103 mmol/L Normal 98-107 [facility] Comment on above: Performed By: #### B MP, LIPA, LIVER, CMADM ####[facility] Itzostmgpj[address]43 [address] [place] CO2 30.0 mmol/L Normal 22.0-30.0 [facility] Comment on above: Performed By: #### B MP, LIPA, LIVER, CMADM ####[facility] Y[address]xurbrssf[address] [place] Creatinine 0.87 mg/dL Normal 0.66-1.25 [facility] Comment on above: Performed By: #### B MP, LIPA, LIVER, CMADM ####[facility] Br[address]anvp[address] [place] eGFR (non-black) Normal 60-N/A [facility] Comment on above: Performed By: #### B MP, LIPA, LIVER, CMADM ####[facility] Thoioiblvh4[address] [place] Glucose mass conc 100 mg/dL Normal 74-106 [facility] Comment on above: Performed By: #### B MP, LIPA, LIVER, CMADM ####[facility] Ws[address]qipejj[address]65 [address] [place] Potassium molar conc 4.0 mmol/L Normal 3.4-5.0 [facility] Comment on above: Performed By: #### B MP, LIPA, LIVER, CMADM ####[facility] [address]234 [place], [place] [address]Gsukwk [place] Sodium 142 mmol/L Normal 137-145 [facility] Comment on above: Performed By: #### B MP, LIPA, LIVER, CMADM ####[facility] [id number] [place], [place] [address]Cgoevb Dimple Urea nitrogen 13.0 mg/dL Normal 9.0-20.0 [facility] Comment on above: Performed By: #### B MP, LIPA, LIVER, CMADM ####[facility] [address] [place], [place] [address]Pfpyze Dimple Vital Signs Date Time Vital Sign Value Performing Clinician Facility 01-29-2024 15:18-0400 Body height 175.3 cm Deep Babb MD Work Phone: [facility] 01-29-2024 15:18-0400 Body mass index (BMI) [Ratio] 25.55 kg/m2 Deep Babb MD Work Phone: [facility] 01-29-2024 15:18-0400 Body weight 78.47 kg Deep Babb MD Work Phone: [facility] 01-29-2024 15:18-0400 Diastolic blood pressure 82 mm[Hg] Deep Babb MD Work Phone: [facility] 01-29-2024 15:18-0400 Heart rate 81 /min Deep Babb MD Work Phone: [facility] 01-29-2024 15:18-0400 SaO2% (BldA) [Mass fraction] 98 % Deep Babb MD Work Phone: [facility] 01-29-2024 15:18-0400 Systolic blood pressure 133 mm[Hg] Deep Babb MD Work Phone: [facility] 12-30-2023 08:06-0400 Body height 172.7 cm Deep Babb MD Work Phone: [facility] 12-30-2023 08:06-0400 Body mass index (BMI) [Ratio] 25.85 kg/m2 Deep Babb MD Work Phone: [facility] 12-30-2023 08:06-0400 Body weight 77.11 kg Deep Babb MD Work Phone: [facility] 12-30-2023 08:06-0400 Diastolic blood pressure 86 mm[Hg] Deep Babb MD Work Phone: [facility] 12-30-2023 08:06-0400 Heart rate 105 /min Deep Babb MD Work Phone: [facility] 12-30-2023 08:06-0400 SaO2% (BldA) [Mass fraction] 97 % Deep Babb MD Work Phone: [facility] 12-30-2023 08:06-0400 Systolic blood pressure 148 mm[Hg] Deep Babb MD Work Phone: [facility] 03-31-2023 16:45-0400 Body temperature 98.06 [degF] Ramón Carrizales [facility] 03-31-2023 16:45-0400 Diastolic blood pressure 86 mm[Hg] Ramón Carrizales [facility] 03-31-2023 16:45-0400 Heart rate 80 /min Ramón Carrizales [facility] 03-31-2023 16:45-0400 Respiratory rate 16 /min Ramón Carrizales [facility] 03-31-2023 16:45-0400 SaO2% (BldA) [Mass fraction] 98 % Ramón Carrizales [facility] 03-31-2023 16:45-0400 Systolic blood pressure 136 mm[Hg] Ramón Carrizales [facility] 09-30-2022 21:22-0500 Diastolic blood pressure 83 mm[Hg] Junior Idalmis [facility] 09-30-2022 21:22-0500 Heart rate 90 /min Junior Idalmis [facility] 09-30-2022 21:22-0500 Mean blood pressure 97 mm[Hg] Junior Idalmis [facility] 09-30-2022 21:22-0500 Respiratory rate 19 /min Junior Idalmis [facility] 09-30-2022 21:22-0500 SaO2% (BldA) [Mass fraction] 100 % Junior Idalmis [facility] 09-30-2022 21:22-0500 Systolic blood pressure 124 mm[Hg] Junior Idalmis [facility] 09-30-2022 20:01-0500 Body temperature 98.24 [degF] Junior Idalmis [facility] 09-30-2022 20:01-0500 Diastolic blood pressure 100 mm[Hg] Junior Idalmis [facility] 09-30-2022 20:01-0500 Heart rate 100 /min Junior Idalmis [facility] 09-30-2022 20:01-0500 Respiratory rate 18 /min Junior Idalmis [facility] 09-30-2022 20:01-0500 SaO2% (BldA) [Mass fraction] 99 % Junior Idalmis [facility] 09-30-2022 20:01-0500 Systolic blood pressure 133 mm[Hg] Junior Idalmis [facility] 08-11-2022 08:34-0500 Body temperature 97.59 [degF] Chavez Chirri DO Work Phone: [facility] [employer] 08-11-2022 08:34-0500 Diastolic blood pressure 86 mm[Hg] Chavez Chirri DO Work Phone: [facility] [employer] 08-11-2022 08:34-0500 Heart rate 70 /min Chavez Chirri DO Work Phone: [facility] [employer] 08-11-2022 08:34-0500 Respiratory rate 16 /min Chavez Chirri DO Work Phone: [facility] 08-11-2022 08:34-0500 SaO2% (BldA) [Mass fraction] 97 % Chavez Chirri DO Work Phone: [facility] [employer] 08-11-2022 08:34-0500 Systolic blood pressure 137 mm[Hg] Chavez Chirri DO Work Phone: [facility] [employer] 08-07-2022 15:24-0500 Body height 172.7 cm Chavez Chirri DO Work Phone: [facility] [employer] 08-07-2022 15:24-0500 Body mass index (BMI) [Ratio] 26.95 kg/m2 Chavez Chirri DO Work Phone: [facility] [employer] 08-07-2022 15:24-0500 Body weight 80.4 kg Chavez Chirri DO Work Phone: [facility] [employer] 02-02-2022 06:32-0400 Body temperature 98.01 [degF] Et3 [facility] [employer] 02-02-2022 06:32-0400 Diastolic blood pressure 82 mm[Hg] Et3 [facility] [employer] 02-02-2022 06:32-0400 Heart rate 96 /min Et3 [facility] [employer] 02-02-2022 06:32-0400 Respiratory rate 18 /min Et3 [facility] [employer] 02-02-2022 06:32-0400 SaO2% (BldA) [Mass fraction] 98 % [facility]3 [facility] [employer] 02-02-2022 06:32-0400 Systolic blood pressure 128 mm[Hg] Et3 [facility] [employer] Encounters Encounter Date Encounter Type Care Provider Facility Start: 02-01-2025 End: 02-03-2025 Refill Rafi Bernstein APRN.FORGING MACHINE OPERATOR Work Phone: Neurology Comment on above: Refill Request Start: 09-30-2024 End: 10-02-2024 [facility] Garcia PhD Work Phone: Neurology Comment on above: 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); Functional 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 Start: 09-11-2024 End: 09-14-2024 [facility] Garcia PhD Work Phone: Neurology Comment on above: 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) Start: 09-04-2024 End: 09-07-2024 [facility] Garcia PhD Work Phone: Neurology Comment on above: 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) Start: 08-28-2024 End: 08-28-2024 [facility] Ana Garcia PhD Work Phone: Neurology Comment on above: 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) Start: 08-21-2024 End: 08-24-2024 [facility] Garcia PhD Work Phone: Neurology Comment on above: 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) Start: 08-14-2024 End: 08-16-2024 [facility] Garcia PhD Work Phone: Neurology Comment on above: 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) Start: 06-02-2024 End: 06-02-2024 Telephone encounter Minerva MILLARD Neurology Comment on above: Social Work Services Start: 05-05-2024 End: 05-05-2024 ambulatory Doug Ellsworth APRN.FORGING MACHINE OPERATOR Work Phone: Neurology Comment on above: Psychogenic nonepile ptic seizure (Primary Dx); Seizure-like activity (HCC) Start: 05-05-2024 End: 05-05-2024 Telemedicine consultation with patient Doug Ellsworth APRN.FORGING MACHINE OPERATOR Work Phone: Neurology Start: 04-30-2024 End: 05-07-2024 ambulatory Ana Garcia PhD Work Phone: Neurology Comment on above: Book Start: 04-28-2024 End: 04-28-2024 ambulatory Ana Garcia PhD Work Phone: Neurology Comment on above: Psychogenic nonepile ptic seizure Start: 04-28-2024 End: 04-28-2024 Telemedicine consultation with patient Ana Garcia PhD Work Phone: Neurology Start: 02-17-2024 End: 02-17-2024 Subsequent hospital visit by physician Dennis Alamo (I-Stat/3t) Work Phone: Radiology Comment on above: No Show Start: 02-17-2024 End: 02-17-2024 ambulatory SHANDRA HIGGINS Facility:[facility] Start: 02-17-2024 End: 02-17-2024 Subsequent [...] (Primary Dx) Start: 01-29-2024 End: 01-29-2024 ambulatory [facility] Facility:[facility] Start: 01-02-2024 Orders Only Shandra Yost Work Phone: Neurology Comment on above: Psychogenic nonepile ptic seizure (Primary Dx) Seizure (HCC) (Prima ry Dx) Start: 12-30-2023 End: 01-03-2024 ambulatory GIOVANI SANCHEZ Facility:[facility] Start: 12-30-2023 End: 12-30-2023 Patient encounter procedure Leah Zhu MD Work Phone: Neurology Comment on above: Seizure (HCC) (Prima ry Dx); Anxiety; Recurrent major depressive disorder, in partial remission (HCC) Start: 12-30-2023 End: 12-30-2023 ambulatory [facility] Facility:[facility] Start: 11-12-2023 Patient encounter procedure Kelly Sandoval MD Work Phone: Neurology Comment on above: Seizure (HCC) (Prima ry Dx) Start: 11-12-2023 Telephone encounter Kelly Sandoval MD Work Phone: Neurology Comment on above: Future Appointment ( [place], [place] ) Start: 03-31-2023 End: 03-31-2023 Emergency department patient visit Ramón Carrizales Facility:[facility] Start: 03-31-2023 End: 03-31-2023 Emergency department patient visit Ramón Carrizales [facility] Start: 09-30-2022 End: 09-30-2022 Emergency department patient visit Junior Raygoza Facility:[facility] Start: 09-30-2022 End: 09-30-2022 Emergency department patient visit Junior Raygoza [facility] Start: 09-23-2022 End: 09-23-[address] ORAL Trujillo Facility: Start: 09-13-2022 End: 09-13-2022 ambulatory CECILIA CONDE . Facility:[facility] Start: 08-07-2022 End: 08-11-2022 Evaluation and management of inpatient CHAVEZ CHIRRI [facility] Start: 08-07-2022 End: 08-11-2022 Evaluation and management of inpatient Chavez Rosa DO Work Phone: [facility] Renal//Med Surg Start: 06-15-2022 End: 06-16-2022 [...] Emeli Chi Facility:[facility] Start: 04-12-2022 End: 04-12-2022 Patient encounter procedure DIRECTOR OF CARDIOLOGY SERVICE LINE-C Emeli Chi Work Phone: [facility] [place] Start: 04-06-2022 End: 04-07-[address] DOCTOR RAY Facility:[facility] Start: 02-27-2022 End: 02-28-[address] LE OLVERA . Facility:[facility] Start: 02-27-2022 End: 02-27-2022 ambulatory JOSIAH MAY Facility:[facility] Start: 02-02-2022 End: 02-09-2022 ambulatory UNKNOWN PROVIDER [facility] Start: 02-02-2022 End: 02-02-2022 ambulatory [facility] Triage, Treat and Transport Start: 02-02-2022 End: 02-02-2022 Emergency department patient visit [facility] Emergency Triage, Treat and Transport Comment on above: Arrived Start: 12-30-2021 End: 12-31-2021 ambulatory JOSIAH MAY Facility:[facility] Start: 11-28-2021 End: 12-01-2021 ambulatory HANS Burroughs [facility] Start: 11-23-2021 Telephone encounter Won berger MD Work Phone: Urology Comment on above: Results Procedures Date Procedure Procedure Detail Performing Clinician Start: 08-07-2022 EEG VIDEO MONITORING Ka pari Waller TOOL LAPPER HAND - Olo Work Phone: Start: 08-07-2022 BASIC METABOLIC PANE L W/ REFLEX TO MG FOR LOW K Alexia Waller TOOL LAPPER HAND - FORGING MACHINE OPERATOR Work Phone: Start: 08-07-2022 Blood count complete auto&auto difrntl wbc Alexia Waller TOOL LAPPER HAND - FORGING MACHINE OPERATOR Work Phone: Cystoscopy Junior Raygoza Procedure on knee Junior scott Plan of Treatment Date Care Activity Detail Author Start: 2046 Shingles (RZV) Vacci ne (1 of 2) Shingles (RZV) Vaccine (1 of 2) [facility] Start: 03-29-2025 Influenza vaccination Influenza Vacc ine (#1) [facility] Start: 09-30-2024 End: 09-30-2024 ambulatory 09/30/2024 2:00 PM EST [facility] [address] [place] [address] Ana Garcia, PhD [address] [place] [address] [facility] Comment on above: pnes Start: 09-11-2024 End: 09-11-2024 ambulatory 09/11/2024 11:00 AM EST [facility] [address] [place] [address] Ana Garcia, PhD [address] [place] [address] [facility] Comment on above: pnes Start: 09-04-2024 End: 09-04-2024 ambulatory 09/04/2024 11:00 AM EST [facility] [address] [place] [address] Ana Garcia, PhD [address] [place] [address] [facility] Comment on above: pnes Start: 08-28-2024 End: 08-28-2024 ambulatory 08/28/2024 2:00 PM EST [facility] [address] [place] [address] Ana Garcia, PhD [address] [place] [address] [facility] Comment on above: pnes Start: 08-21-2024 End: 08-21-2024 ambulatory 08/21/2024 2:00 PM EST [facility] [address] [place] [address] Ana Garcia, PhD [address] [place] [address] [facility] Neurology Comment on above: pnes Start: 08-14-2024 End: 08-14-2024 ambulatory 08/14/2024 2:00 PM EST [facility] [address] [place] [address] Ana Garcia, PhD [address] [facility] [place] [address] pnes Neurology Comment on above: pnes Start: 08-07-2024 End: 08-07-2024 ambulatory 08/07/2024 2:00 PM EST [facility] [address] [place] [address] Ana Garcia, PhD [address] [place] [place] [address] [facility] Neurology Comment on above: pnes Start: 07-31-2024 End: 07-31-2024 ambulatory 07/31/2024 2:00 PM EST [facility] [address] [place] [address] Ana Garcia, PhD [address] [place] [address] [facility] Neurology Comment on above: pnes Start: 07-07-2024 End: 07-07-2024 ambulatory 07/07/2024 1:00 PM EST [facility] [address] [facility] [place] [address] Ana Garcia, PhD [address] [place] [address] [facility]nes Neurology Comment on above: pnes Start: 06-30-2024 End: 06-30-2024 ambulatory 06/30/2024 1:00 PM EST [facility] [address] [facility] [facility] [place] [address] Ana Garcia, PhD [address] [place] [address] [facility] Neu[facility] Comment on above: pnes Start: 05-05-2024 End: 05-05-2024 Follow-up encounter 05/05/2024 1:30 PM EDT [facility] [address] [place] [address] Doug Ellsworth, TOOL LAPPER HAND.FORGING MACHINE OPERATOR [address] [place] [address] Follow Up Neurology Comment on above: Follow Up Start: 04-09-2024 End: 04-09-2024 ambulatory 04/09/2024 9:00 AM EDT [facility] [address] [place] [address] Neida Kee, PhD [address] [place] [address] Psychogenic nonepileptic seizure Neurology Comment on above: Psychogenic nonepile ptic seizure Start: 03-29-2024 Covid-19 Vaccine ( season) Covid-19 Vaccine ( season) [facility] Start: 03-29-2024 Influenza vaccination C [facility] Start: 03-05-2024 End: 03-05-2024 Follow-up encounter 03/05/2024 10:00 AM EDT [facility] [address] [place] [address] Doug Ellsworth, TOOL LAPPER HAND.FORGING MACHINE OPERATOR [address] [place] [address] Follow Up Neurology Comment on above: Follow Up Start: 02-17-2024 End: 02-17-2024 Patient encounter procedure 02/17/2024 4:40 PM EDT Appointment Radiology [address] [place] [id number] Seizure Radiology Comment on above: Seizure Start: 02-17-2024 Subsequent hospital visit by physician 02/17/2024 4:40 PM EDT Hospital Encounter Radiology [address] [place] [id number] Seizure (HCC) [R56.9] Radiology Comment on above: Seizure (HCC) [R56.9 ] Start: 01-29-2024 End: 01-29-2024 Patient encounter procedure 01/29/2024 3:30 PM EDT Office Visit Neurology [address] [place] [address] Deep Babb MD [address] [facility] [address] [place] [address] Follow Up Neurology Comment on above: Follow Up Start: 09-10-2023 Covid-19 Vaccine ( season) Covid-19 Vaccine () [facility] Start: 07-29-2023 Behavioral Health Screening Behavioral Health Screening [facility] Start: 03-29-2023 Covid-19 Vaccine () Covid-19 Vaccine () [facility] Start: 11-16-2022 Depression Screen Depression Screen [facility] Start: 10-15-2022 End: 10-15-2022 Patient encounter procedure 10/15/2022 Office Visit Neurology Hans Granado MD [address] [place] [address] [place] [address] [facility] NE[facility] Part of [facility] Start: 03-29-2022 Influenza vaccination INFLUENZ A (Season Ended) [facility] Start: 02-26-2022 Influenza vaccination [facility] Start: 11-04-2019 DTaP/Tdap/Td vaccine (7 - Tdap) DTaP/Tdap/Td vaccine (7 - Tdap) [facility] Start: 11-04-2019 Urine microalbumin profile DTaP,Tdap,Td Vaccine (7 - Tdap) [facility] Start: 2015 Urine microalbumin profile DTAP,TDAP,TD (1 - Tdap) [facility] Start: 2014 Anxiety Screening Anxiety Screening [facility] Start: 2014 Depression Screening Depression Scre ening [facility] Start: 2014 HEPATITIS C SCREENING HEPATITIS C SC REENING [facility] Start: 2014 [facility]atitis C screening [facility] Start: 2014 HIV SCREENING [facility]CRE[facility] Start: 2014 HIV screening HIV Screening [facility] Start: 2014 Tetanus + diphtheria + acellular pertussis vaccine (product) Tdap Booster [facility] Start: 2011 HIV screening [facility] Start: 2010 PEDS TO ADULT TRANSI TION ANNUAL ASSESSMENT PEDS TO ADULT TRANSITION ANNUAL ASSESSMENT [facility] Start: 2008 Adult depression screening assessment DEPRESSION SCREENING [facility] Start: 2008 PEDS TO ADULT TRANSI TION INITIAL DISCUSSION PEDS TO ADULT TRANSITION INITIAL DISCUSSION [facility] Start: 2007 HPV VACCINE (1 - Mal e 2-dose series) HPV VACCINE (1 - Male 2-dose series) [facility] Start: 2007 Vaccination for damir n papillomavirus Human Papilloma (HPV) Vaccine (1 - Male 2-dose series) [facility] Start: 2001 COVID-19 VACCINE (1) COVID-19 VACCIN E (1) [facility] Start: 2000 Varicella vaccine (2 of 2 - 2-dose childhood series) Varicella vaccine (2 of 2 - 2-dose childhood series) [facility] Start: 02-05-1997 COVID-19 Vaccine (#1) COVID-19 Vacci ne (#1) [facility] Start: 02-05-1997 Hepatitis B Vaccine (3 of 3 - 3-dose series) Hepatitis B Vaccine (3 of 3 - 3-dose series) [facility] End: 11-12-2024 EPIL EEG LEAD PLACEMENT EPIL EEG LEAD PLACEMENT NEUROLOGY Routine Seizure (HCC) 1 Occurrences starting 11/13/2023 until 11/12/2024 [facility] Work Phone: Comment on above: 1 Occurrences starti ng 11/13/2023 until 11/12/2024 EPIL VEEG ADMIT TO EMU/PMU EPIL VEEG ADMIT TO EMU/PMU NEUROLOGY Routine Seizure (HCC) Ordered: 11/13/2023 [facility] Work Phone: Comment on above: Ordered: 11/13/2023 End: 01-31-2025 MR Brain WO contrast MRI BRAIN WO IVCON Radiology Routine Seizure (HCC) 1 Occurrences starting 01/02/2024 until 01/31/2025 [facility] Work Phone: Comment on above: 1 Occurrences starti ng 01/02/2024 until 01/31/2025 MR Brain WO contrast MRI BRAIN W O IVCON Radiology Routine Seizure (HCC) 02/17/2024 8:39 PM EDT [facility] Work Phone: Oxygen therapy [[facility] Data Set] Initiate Oxygen Therapy Protocol Respiratory Care Routine Daily until discontinued starting 08/07/2022 [facility] Work Phone: Comment on above: Daily until disconti nued [facility] P[facility] Date Payer Category Payer Medicaid [id number] 2022 Self-pay 2021 Unknown [facility] [employer] [place] MEDICAID [id number] 2021-Present [id number] 2018 Medicaid [place] [id number] 2018-Present [phone] [place] [address] Medicaid [id number] 1996 Unknown [id number] [id number] 1996 Unknown [id number] [id number] 1996 Unknown [id number] [id number] 1996 Unknown [id number] 2.16.840.1.070436.3.579.2.593 1996 Unknown [id number] 2.16.840.1.617810.3.579.2.593 1996 Unknown [id number] 2.16.840.1.392938.3.579.2.593 1996 Unknown [id number] 2.16.840.1.290587.3.579.2.593 1996 Unknown [id number] 2.16.840.1.275254.3.579.2.593 1996 Unknown [id number] 2.16.840.1.424751.3.579.2.593 1996 Unknown [id number] 2.16.840.1.059631.3.579.2.593 1996 Unknown [id number] 2.16.840.1.624888.3.579.2.593 1996 Unknown [id number] 2.16.840.1.793600.3.579.2.593 1996 Unknown [id number] 2.16.840.1.894081.3.579.2.593 1996 Unknown [id number] 2.16.840.1.997639.3.579.2.593 1996 Unknown [id number] 2.16.840.1.471807.3.579.2.593 1996 Unknown [id number] 2.16.840.1.646185.3.579.2.593 1996 Unknown [id number] 2.16.840.1.565292.3.579.2.727 1996 Unknown [id number] 2.16.840.1.066309.3.579.2.727 1996 Unknown [id number] [id number] 1959 Unknown [id number] Unknown [id number] Social History Date Type Detail Facility Start: 01-20-2021 End: 12-30-2023 Tobacco smoking status MDIS Never smoked tobacco [facility] Start: 01-20-2021 End: 12-30-2023 Tobacco use and exposure Smokeless tobacco non-user [facility] Start: 08-03-2021 End: 01-29-2024 Alcohol intake Ex-drinker (finding) [facility] Start: 1996 Sex Assigned At Not on file C [facility] Start: 11-05-2021 End: 08-07-2022 Exposure to SARS-CoV-2 (event) Not sure [facility] Tobacco smoking status MDIS Tobacco smoking consumption unknown [facility] Start: 1996 Sex Assigned At Male F [facility] Start: 08-07-2022 Alcohol intake Lifetime non-d starr (finding) [facility] Work Phone: Tobacco smoking status Never [facility] Start: 08-03-2021 End: 12-30-2023 Sex Assigned At Male [facility] Start: 08-03-2021 End: 12-30-2023 History of Social function [facility] Functional Status Date Assessment Result Facility 01-03-2024 Are you deaf, or do you have serious difficulty hearing No 01/03/2024 6:50 AM Carlos Ashley RN No [facility] 01-03-2024 Are you blind, or do you have serious difficulty seeing, even when wearing glasses No 01/03/2024 6:50 AM Carlos Ashley RN No [facility] 01-03-2024 Do you have serious difficulty walking or climbing stairs No 01/03/2024 6:50 AM Carlos Ashley RN No [facility] 01-03-2024 Do you have difficul ty dressing or bathing No 01/03/2024 6:50 AM Carlos Ashley RN No [facility] 01-03-2024 Because of a physica l, mental, or emotional condition, do you have difficulty doing errands alone such as visiting a physician's office or shopping No 01/03/2024 6:50 AM EDT Carlos Ferrell RN No [facility] 03-31-2023 Functional Status N/A [facility] 09-30-2022 Functional Status N/A [facility] Mental Status Date Assessment Result Facility 01-03-2024 Because of a physica l, mental, or emotional condition, do you have serious difficulty concentrating, remembering, or making decisions No 01/03/2024 6:50 AM EDT Carlos Ferrell RN No [facility] Clinical Notes 08-31-2021 to 02-03-2025 Telephone Encounter - Robyn Bartlett PA-C - 02/03/2025 3:12 PM EDTTelephone Encounter - Robyn Bartlett PA-C - 02/03/2025 3:12 PM Ana Camargo, PhD - 10/02/2024 1:56 PM EST Note Date & Type Note Facility 02-03-2025 Telephone encounter Note The following approved medication requests have been transmitted electronically. Requested Prescriptions Signed Prescriptions Disp Refills lamoTRIgine (LAMICTAL) 200 mg tablet 180 tablet 1 Sig: Take 1 tablet by mouth two times a day. Authorizing Provider: ROBYN BARTLETT PA-C [facility] 02-03-2025 Miscellaneous Notes The following approved medication requests have been transmitted electronically. Requested Prescriptions Signed Prescriptions Disp Refills lamoTRIgine (LAMICTAL) 200 mg tablet 180 tablet 1 Sig: Take 1 tablet by mouth two times a day. Authorizing Provider: ROBYN BARTLETT PA-C Prescription Refill: Requested by: pharmacy Please E-Scribe Caller Contact Number: [facility] Name: [place], [place] Pharmacy Number: [phone] Generic/ brand: generic 30 or 90 day supply requested: 90 Last appointment: 05/05/2024 Next Appointment: none Patient of Dr. Don Alonso III [id number] [address] [facility] [address] documented in this encounter [facility] 02-03-2025 Telephone encounter Note Prescription Refill: Requested by: pharmacy Please E-Scribe Caller Contact Number: [facility] Name: [place], [place] Pharmacy Number: [phone] Generic/ brand: generic 30 or 90 day supply requested: 90 Last appointment: 05/05/2024 Next Appointment: none Patient of Dr. Don Alonso III [id number] [address] [facility] [address] [facility] 10-02-2024 Note HNO ID: [id number] Author: ANA GARCIA, PhD Service: ? Author Type: Psychologist Type: Progress Notes Filed: 10/02/2024 13:56 Note Text: The pt was a no show. [facility] 10-02-2024 History of Presen t illness Narrative The pt was a no show. documented in this encounter [facility] 09-14-2024 Note HNO ID: [id number] Author: ANA GARCIA, PhD Service: ? Author Type: Psychologist Type: Progress Notes Filed: 09/14/2024 14:35 Note Text: No show [facility] 09-14-2024 History of Presen t illness Narrative No show documented in this encounter [facility] 09-07-2024 Note HNO ID: [id number] Author: ANA GARCIA, PhD Service: ? Author Type: Psychologist Type: Progress Notes Filed: 09/07/2024 02:45 Note Text: No show [facility] 09-07-2024 History of Presen t illness Narrative No show documented in this encounter [facility] 08-28-2024 Note HNO ID: [id number] Author: ANA GARCIA, PhD Service: ? Author Type: Psychologist Type: Progress Notes Filed: 08/28/2024 16:18 Note Text: No show [facility] 08-28-2024 History of Presen t illness Narrative No show documented in this encounter [facility] 08-24-2024 Note HNO ID: [id number] Author: ANA GARCIA, PhD Service: ? Author Type: Psychologist Type: Progress Notes Filed: 08/24/2024 12:51 Note Text: No show [facility] 08-24-2024 History of Presen t illness Narrative No show documented in this encounter [facility] 08-16-2024 Note HNO ID: [id number] Author: ANA GARCIA, PhD Service: ? Author Type: Psychologist Type: Progress Notes Filed: 08/16/2024 14:02 Note Text: No show. [facility] 08-16-2024 History of Presen t illness Narrative No show. documented in this encounter [facility] 08-10-2024 Note HNO ID: [id number] Author: ANA GARCIA, PhD Service: ? Author Type: Psychologist Type: Progress Notes Filed: 08/10/2024 14:15 Note Text: No show [facility] 08-10-2024 History of Presen t illness Narrative No show documented in this encounter [facility] 07-31-2024 Note HNO ID: [id number] Author: ANA GARCIA, PhD Service: ? Author Type: Psychologist Type: Progress Notes Filed: 07/31/2024 16:23 Note Text: No show [facility] 07-31-2024 History of Presen t illness Narrative No show documented in this encounter [facility] 07-28-2024 Telephone encounter Note The following approved medication requests have been transmitted electronically. Requested Prescriptions Signed Prescriptions Disp Refills lamoTRIgine (LAMICTAL) 200 mg tablet 180 tablet 1 Sig: Take 1 tablet by mouth two times a day. Authorizing Provider: RAFI BERNSTEIN APRN.CNP [facility] 07-28-2024 Miscellaneous Notes The following approved medication requests have been transmitted electronically. Requested Prescriptions Signed Prescriptions Disp Refills lamoTRIgine (LAMICTAL) 200 mg tablet 180 tablet 1 Sig: Take 1 tablet by mouth two times a day. Authorizing Provider: RAFI BERNSTEIN APRN.CNP Prescription Refill: Requested by: pharmacy Please E-Scribe Caller Contact Number: [facility]: [facility] Pharmacy Number: [phone] Generic/ brand: 30 or 90 day supply requested: 90 Last appointment: 05/05/24 Next Appointment: none Patient of Dr. Don Alonso III [id number] [address] [place] [address] documented in this encounter [facility] 07-28-2024 Telephone encounter Note Prescription Refill: Requested by: pharmacy Please E-Scribe Caller Contact Number: [facility]acy Name: [facility] Pharmacy Number: [phone] Generic/ brand: 30 or 90 day supply requested: 90 Last appointment: 05/05/24 Next Appointment: none Patient of Dr. Don Alonso III [id number] [address] [facility] [address] [facility] 06-30-2024 Note HNO ID: [id number] Author: ANA GARCIA, PhD Service: ? Author Type: Psychologist Type: Progress Notes Filed: 06/30/2024 17:12 Note Text: PSYCHOLOGY NOTE: Virtual visit This psychotherapy session was conducted virtually using [employer]. Consent related to virtual visit was provided verbally after information was read to patient. Current location: Home Emergency contact: On file S/O: This is a 28 year-old patient with nonepileptic seizures/conversion disorder in counseling for management of symptoms. 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 Consent related to virtual visit was provided verbally after information was read to patient. Current location: Home Emergency contact: On file S/O: This is a 28 year-old patient with nonepileptic seizures/conversion disorder in counseling for management of symptoms. 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 Tracking # [id number] [facility] 06-02-2024 Miscellaneous Notes Copy of seizure workbook, mailed to patient home address. Tracking # [id number] HOSPITAL PHARMACY DIRECTOR received a consult from provider stating patient told them they cannot afford the PNES workbook, and is looking for assistance with this. HOSPITAL PHARMACY DIRECTOR notes patient had initial assessment with Dr. Garcia and is beginning treatment in June 2024. HOSPITAL PHARMACY DIRECTOR asked admin to send patient a copy of the workbook after confirming with patient the correct address. Will follow to assure this is sent to patient. documented in this encounter [facility] 06-02-2024 Telephone encounter Note HOSPITAL PHARMACY DIRECTOR received a consult from provider stating patient told them they cannot afford the PNES workbook, and is looking for assistance with this. HOSPITAL PHARMACY DIRECTOR notes patient had initial assessment with Dr. Garcia and is beginning treatment in June 2024. HOSPITAL PHARMACY DIRECTOR asked admin to send patient a copy of the workbook after confirming with patient the correct address. Will follow to assure this is sent to patient. [facility] 05-05-2024 Note HNO ID: [id number] Author: DOUG ELLSWORTH APRN.FORGING MACHINE OPERATOR Service: ? Author Type: Nurse Practitioner Type: Progress Notes Filed: 05/06/2024 12:21 Note Text: [facility]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 home: Medicines Take brmc-ofd-cxhuikc and prescription medicines only as told by [...] Treatment is effective at controlling seizures. Take yntl-xko-hxonkhe and prescription medicines only as told by [...] 07/15/2006 Document Revised: 03/09/2019 Document Reviewed: 03/09/2019 [employer] Patient Education 2020 [employer] Follow Up Care 09/30/2022 20:00:37 With:EMELI CHI Address: [address] [address]- [phone] Business (1) When:Within 3 Day(s) [facility]03-05-2023 Evaluation + Plan noteExtracted from: Title:ED Note Author:Junior Raygoza DO Date :09/30/22 Seizure (R56.9: Unspecified convulsions) Orders: lorazepam, 2 mg = 2 tab(s), Tab, Oral, Once, Stop date 09/30/22 22:00:00 EST, Routine, Start date 09/30/22 22:00:00 EST, 09/30/22 21:09:00 EST [facility]01-14-2023 Hospital course Narrative* Benjamin Miles MD - 08/11/2022 2:28 PM EST Images from the original note were not included. [facility] Department of Neurology INPATIENT DISCHARGE SUMMARY Patient Identification: Corey Alonso III is a 27 y.o. male. : 1995 Acct: [id number] Admit Date: 08/07/2022 Discharge date and time: [...] seizure-free since then. Follows with neurologist in [place] currently taking Trileptal 600 mg twice daily, [...] heights Yes Diet: regular diet Follow-up: Hans Grnaado MD [address] [place] [address] [place] [address] Schedule an appointment as soon as possible for a visit follow up with neurology in 4-6weeks for seizure disorder Follow up labs: None Follow up imaging: None Note that over 30 minutes was spent in preparing discharge papers, discussing discharge with patient, medication review, etc. Benjamin Miles MD, Neurology Resident PGY-2 Department of Neurology [place], [place] 08/11/2022, 4:52 PM Associated attestation - [...] 08/11/2022 4:57 PM documented [facility] Work Phone: 1(920) 899-422701-14-2023 History of Present illness Narrative* Benjamin Miles MD - 08/11/2022 2:16 PM EST [facility] Neurology IN-PATIENT SERVICE [facility] Progress Note Date: 08/11/2022 Patient name: Corey Alonso III Date of admission: 08/07/2022 2:07 PM Account: [id number] Date of : 1995 PCP: Emeli Chi Room: [address] [place] [address] Code Status: Full Code Chief Complaint: Elective [...] seizure-free since then. Follows with neurologist in [place] currently taking Trileptal 600 mg twice daily, [...] outpatient in 3 to 4 weeks. Chavez Rosa, DO 08/11/2022 3:11 PM * Kayden Collado, TOOL LAPPER HAND - FORGING MACHINE OPERATOR - 08/10/2022 10:43 AM EST Neurology Nurse [...] follows up with his own neurologist in [place] and has been taking Trileptal 600 mg twice daily and Lamictal 300 mg twice daily. LTME was recommended to capture and characterize her typical spells. Patient presented to [facility] on 08/07/2022 for inpatient LTME. [...] to ensure the accuracy of this automated gas distribution supervisor, some errors in gas distribution supervisor may have occurred. Associated attestation - Chavez [...] Chavez Lee DO 08/10/2022 2:54 PM * BELL Khalil CNP - 08/09/2022 11:51 AM EST Neurology Nurse [...] follows up with his own neurologist in [place] and has been taking Trileptal 600 mg twice daily and Lamictal 300 mg twice daily. LTME was recommended to capture and characterize her typical spells. Patient presented to [facility] on 08/07/2022 for inpatient LTME. [...] to ensure the accuracy of this automated gas distribution supervisor, some errors in gas distribution supervisor may have occurred. Associated attestation - Chavez [...] Hefollows up with his own neurologist in [place] and has been taking Trileptal 600 mg twice daily and Lamictal 300 mg twice daily. LTME was recommended to capture and characterize her typical spells. Patient presented to [facility] on 08/07/2022 for inpatient LTME. [...] to ensure the accuracy of this automated gas distribution supervisor, some errors in gas distribution supervisor may have occurred. * Tisha Peters - 08/07/2022 5:32 PM EST ALTM started documented [facility] [employer] Work Phone: [phone]) 320-222509-15-2022 NoteSperm Rapid ProgressiveSeptember 2021 9:00amTNPTest not performedBethesda North Hospital Ctr [address] [address]OyewahzuiSelect Medical Specialty Hospital - Cleveland-FairhillComment on above:Test not [id number] NoteSperm Non-ProgressiveSeptember 2021 9:00amTNPTest not performedBethesda North Hospital Ctr [address] [address]YgxcnjolqSelect Medical Specialty Hospital - Cleveland-FairhillComment on above:Test not [id number] History of Present illness Narrative* Maritza Romo MD - 02/02/2022 6:12 AM EDT Images from the original note were not included. EMERGENCY TRIAGE, TREAT AND TRANSPORT (ET3) DOCUMENTATION OF TELEHEALTH VISIT Date / Time: 02/02/2022599 Name: Corey Alonso : 1995 SSN: [id number] EMS Agency: [facility] [x] Verbal consent obtained [] [...] by: Maritza Romo MD documented in this [id number] Miscellaneous Notes* Telephone Encounter - Won Huerta MD - 11/23/2021 5:27 PM EDT Called to discuss results Remains azoospermic - suspected obstructive process Discussed next steps - TESE with IVF He will consider this and let us know All questions answered RTC prn Won Huerta MD, PhD [facility] NoteHNO ID: [id number] Author: Tung Macias MD Service: Anesthesiology Author Type: Anesthesiologist Type: Anesthesia Procedure Notes Filed: 09/01/2021 6:32 AM Note Text: ANESTHESIOLOGY PROCEDURE NOTE Airway General Information Procedure Start Time/Medication Administration: 08/31/2021 1:10 PM Patient location during procedure: OR Timeout Performed Pre-procedure: timeout performed Consent Obtained: Yes Patient identity confirmed: arm band and patient Staffing Anesthesiologist: Tung Macias MD INFORMATION WRITER: Rubi Javier APRN.INFORMATION WRITER Performed by: KARLA Indications and Patient Condition [...] no Airway not difficult SIGNATURE: Rubi Javier APRN.INFORMATION WRITER PATIENT NAME: Corey Alonso III DATE: August 31, 2021 TIME: 1:16 PM CSN: [id number] note* Diagnosis Seizure (HCC)- Primary Other convulsions documented in this encounter [facility] noteNo assessment information availableMemorial Health [facility] Work Phone: Evaluation note* Diagnosis Partial symptomatic epilepsy with complex partial seizures, intractable, without status epilepticus (HCC)- Primary Seizure-like activity (HCC) Other convulsions documented in this encounter [facility] Work Phone: evaluation note* Diagnosis Seizure (HCC)- Primary Other convulsions documented in this encounter [facility] note* Diagnosis Seizure (HCC)- Primary Other convulsions Anxiety Anxiety state, unspecified Recurrent major depressive disorder, in partial remission (HCC) documented in this encounter [facility] note* Diagnosis Psychogenic nonepileptic seizure- Primary documented in this encounter [facility] note* Diagnosis Seizure (HCC)- Primary Other convulsions documented in this encounter [facility] note* Diagnosis Seizure-like activity (HCC)- Primary Other convulsions documented in this encounter [facility] note* Diagnosis Seizure-like activity (HCC)- Primary Other convulsions [facility]* Diagnosis Seizure (HCC) Other convulsions [facility]* Diagnosis Pre-op evaluation- Primary Preoperative examination, unspecified Azoospermia Cryptogenic localization-related epilepsy (HCC) Localization-related (focal) (partial) epilepsy and epileptic syndromes with simple partial seizures, without mention of intractable epilepsy Psychogenic nonepileptic seizure [facility]* Diagnosis Pre-op evaluation- Primary Preoperative examination, unspecified Azoospermia Cryptogenic localization-related epilepsy (HCC) Localization-related (focal) (partial) epilepsy and epileptic syndromes with simple partial seizures, without mention of intractable epilepsy Psychogenic nonepileptic seizure- Primary Seizure-like activity (HCC) Other convulsions [facility]* Diagnosis Pre-op evaluation- Primary Preoperative examination, unspecified Azoospermia Cryptogenic localization-related epilepsy (HCC) Localization-related (focal) (partial) epilepsy and epileptic syndromes with simple partial seizures, without mention of intractable epilepsy Functional 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 Conversion disorder [facility]* Diagnosis Pre-op evaluation- Primary Preoperative examination, unspecified Azoospermia Cryptogenic localization-related epilepsy (HCC) Localization-related (focal) (partial) epilepsy and epileptic syndromes with simple partial seizures, without mention of intractable epilepsy Seizure-like activity (HCC) Other convulsions [facility]* Diagnosis Pre-op evaluation- Primary Preoperative examination, unspecified Azoospermia Cryptogenic localization-related epilepsy (HCC) Localization-related (focal) (partial) epilepsy and epileptic syndromes with simple partial seizures, without mention of intractable epilepsy Functional 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 Conversion disorder [facility]* Diagnosis Pre-op evaluation- Primary Preoperative examination, unspecified Azoospermia Cryptogenic localization-related epilepsy (HCC) Localization-related (focal) (partial) epilepsy and epileptic syndromes with simple partial seizures, without mention of intractable epilepsy Functional 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 Conversion disorder [facility]* Diagnosis Pre-op evaluation- Primary Preoperative examination, unspecified Azoospermia Cryptogenic localization-related epilepsy (HCC) Localization-related (focal) (partial) epilepsy and epileptic syndromes with simple partial seizures, without mention of intractable epilepsy Functional 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 Conversion disorder [facility]* Diagnosis Pre-op evaluation- Primary Preoperative examination, unspecified Azoospermia Cryptogenic localization-related epilepsy (HCC) Localization-related (focal) (partial) epilepsy and epileptic syndromes with simple partial seizures, without mention of intractable epilepsy Functional 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 Conversion disorder [facility]* Diagnosis Pre-op evaluation- Primary Preoperative examination, unspecified Azoospermia Cryptogenic localization-related epilepsy (HCC) Localization-related (focal) (partial) epilepsy and epileptic syndromes with simple partial seizures, without mention of intractable epilepsy Functional 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 Conversion disorder [facility]* Diagnosis Pre-op evaluation- Primary Preoperative examination, unspecified Azoospermia Cryptogenic localization-related epilepsy (HCC) Localization-related (focal) (partial) epilepsy and epileptic syndromes with simple partial seizures, without mention of intractable epilepsy 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 Mood disorder in conditions classified elsewhere documented in this encounter [facility] note* Diagnosis Pre-op evaluation- Primary Preoperative examination, unspecified Azoospermia Cryptogenic localization-related epilepsy (HCC) Localization-related (focal) (partial) epilepsy and epileptic syndromes with simple partial seizures, without mention of intractable epilepsy Functional 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 Conversion [facility] Diagnosis Pre-op evaluation- Primary Preoperative examination, unspecified Azoospermia Cryptogenic localization-related epilepsy (HCC) Localization-related (focal) (partial) epilepsy and epileptic syndromes with simple partial seizures, without mention of intractable epilepsy 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 Mood disorder in conditions classified elsewhere Functional 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 Conversion disorder [facility] Diagnosis Pre-op evaluation- Primary Preoperative examination, unspecified Azoospermia Cryptogenic localization-related epilepsy (HCC) Localization-related (focal) (partial) epilepsy and epileptic syndromes with simple partial seizures, without mention of intractable epilepsy Seizure-like activity (HCC) Other convulsions documented in this encounter [facility] Narrative No data available for this section [facility] No data available for this section [facility] (narrative)* Outpatient Procedure (Routine) - Pending Review Specialty Diagnoses / Procedures Referred By Randy t Referred To Contact [facility] Diagnoses Seizure (HCC) Procedures EPIL EEG LEAD PLACEMENT EEG EXTENDED MONITORING 61-119 MINUTES ELECTROENCEPHALOGRAM REC COMA/SLEEP ONLY Shandra Berman APRN.CNP [address] [place] [address] [facility] [place] [address] [place] [address] Referral ID Status Reason Start Date Expiration Date Visits Requested Visits Authorized [id number] Pending Review Auto-Generat ed Referral 11/13/2023 11/12/2024 1 1 [facility] Summary Purpose Family History No Family History Records FoundNo Family History Records FoundNo Family History Records FoundNo Family History Records FoundNo Family History Records FoundNo Family History Records FoundNo Family History Records FoundNo Family History Records FoundNo Family History Records Found Advance Directives Documents on File Type Date Recorded 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 Advance Directive(s) 07/17/2021 12:20 PM [...] Referred By Randy t Referred To Contact MR IMAGING Diagnoses Seizure (HCC) Procedures MRI BRAIN WO IVCON MRI BRAIN BRAIN STEM W/O CONTRAST MATERIAL Shandra Higgins PA-C [address] [place] [address] [place] [address] Referral ID Status Reason Start Date Expiration Date Visits Requested Visits Authorized [id number] Pending Review Auto-Generat ed Referral 01/02/2024 01/31/2025 1 1 Specialty Diagnoses / Procedures Referred By Randy t Referred To Contact Psychology Diagnoses Psychogenic nonepileptic seizure Procedures CONSULT TO PSYCHOLOGY OFFICE/OUTPATIENT NEW HIGH MDM 60 MINUTES Shandra Higgins PA-C [address] [place] [address] Referral ID Status Reason Start Date Expiration Date Visits Requested Visits Authorized [id number] Pending Review PCP Requested Referral 01/02/2024 01/01/2025 1 1 Additional Source Comments (unrecognized sect ion and content) No Status Records FoundNo Status Records FoundNo Status Records FoundNo Status Records FoundNo Status Records FoundNo Status Records FoundNo Status Records FoundNo Status Records FoundNo Status Records Found INFORMATION SOURCE (unrecogn ized section and content) DATE CREATED AUTHOR 01/22/2018 [facility] DATE CREATED AUTHOR AUTHOR'S ORGANIZ ATION 09/01/2021 [facility] DATE CREATED AUTHOR AUTHOR'S ORGANIZ ATION 12/05/2021 [facility] DATE CREATED AUTHOR AUTHOR'S ORGANIZ ATION 02/15/2022 [facility] DATE CREATED AUTHOR AUTHOR'S ORGANIZ ATION 04/27/2022 [facility] DATE CREATED AUTHOR AUTHOR'S ORGANIZ ATION 09/26/2022 [facility] DATE CREATED AUTHOR AUTHOR'S ORGANIZ ATION 03/31/2023 [facility] DATE CREATED AUTHOR AUTHOR'S ORGANIZ ATION 05/31/2023 [facility] DATE CREATED AUTHOR AUTHOR'S ORGANIZ ATION 10/04/2024 [facility] Source Comments (unrecognize d section and content) In the event this informatio n is protected by the Federal Confidentiality of Alcohol and Drug Abuse Patient Records regulations: The Federal rules restrict any use of the information to criminally investigate or prosecute any alcohol or drug abuse patient.[facility] the event this information is protected by the Federal Confidentiality of Alcohol and Drug Abuse Patient Records regulations: The Federal rules restrict any use of the information to criminally investigate or prosecute any alcohol or drug abuse patient.[facility] the event this information is protected by the Federal Confidentiality of Alcohol and Drug Abuse Patient Records regulations: The Federal rules restrict any use of the information to criminally investigate or prosecute any alcohol or drug abuse patient.[facility] the event this information is protected by the Federal Confidentiality of Alcohol and Drug Abuse Patient Records regulations: The Federal rules restrict any use of the information to criminally investigate or prosecute any alcohol or drug abuse patient.[facility] the event this information is protected by the Federal Confidentiality of Alcohol and Drug Abuse Patient Records regulations: The Federal rules restrict any use of the information to criminally investigate or prosecute any alcohol or drug abuse patient.[facility] the event this information is protected by the Federal Confidentiality of Alcohol and Drug Abuse Patient Records regulations: The Federal rules restrict any use of the information to criminally investigate or prosecute any alcohol or drug abuse patient.[facility] the event this information is protected by the Federal Confidentiality of Alcohol and Drug Abuse Patient Records regulations: The Federal rules restrict any use of the information to criminally investigate or prosecute any alcohol or drug abuse patient.[facility] the event this information is protected by the Federal Confidentiality of Alcohol and Drug Abuse Patient Records regulations: The Federal rules restrict any use of the information to criminally investigate or prosecute any alcohol or drug abuse patient.[facility] the event this information is protected by the Federal Confidentiality of Alcohol and Drug Abuse Patient Records regulations: The Federal rules restrict any use of the information to criminally investigate or prosecute any alcohol or drug abuse patient.[facility] Hospital[facility] the event this information is protected by the Federal Confidentiality of Alcohol and Drug Abuse Patient Records regulations: The Federal rules restrict any use of the information to criminally investigate or prosecute any alcohol or drug abuse patient.[facility] Hospital[facility] the event this information is protected by the Federal Confidentiality of Alcohol and Drug Abuse Patient Records regulations: The Federal rules restrict any use of the information to criminally investigate or prosecute any alcohol or drug abuse patient.[facility] Hospital[facility] the event this information is protected by the Federal Confidentiality of Alcohol and Drug Abuse Patient Records regulations: The Federal rules restrict any use of the information to criminally investigate or prosecute any alcohol or drug abuse patient.[facility] the event this information is protected by the Federal Confidentiality of Alcohol and Drug Abuse Patient Records regulations: The Federal rules restrict any use of the information to criminally investigate or prosecute any alcohol or drug abuse patient.[facility] Hospital[facility] the event this information is protected by the Federal Confidentiality of Alcohol and Drug Abuse Patient Records regulations: The Federal rules restrict any use of the information to criminally investigate or prosecute any alcohol or drug abuse patient.[facility] Hospital[facility] the event this information is protected by the Federal Confidentiality of Alcohol and Drug Abuse Patient Records regulations: The Federal rules restrict any use of the information to criminally investigate or prosecute any alcohol or drug abuse patient.[facility] Hospital[facility] the event this information is protected by the Federal Confidentiality of Alcohol and Drug Abuse Patient Records regulations: The Federal rules restrict any use of the information to criminally investigate or prosecute any alcohol or drug abuse patient.[facility] the event this information is protected by the Federal Confidentiality of Alcohol and Drug Abuse Patient Records regulations: The Federal rules restrict any use of the information to criminally investigate or prosecute any alcohol or drug abuse patient.[facility] HospitalIn the event this information is protected by the Federal Confidentiality of Alcohol and Drug Abuse Patient Records regulations: The Federal rules restrict any use of the information to criminally investigate or prosecute any alcohol or drug abuse patient.[facility] HospitalIn the event this information is protected by the Federal Confidentiality of Alcohol and Drug Abuse Patient Records regulations: The Federal rules restrict any use of the information to criminally investigate or prosecute any alcohol or drug abuse patient.[facility] Hospital[facility] the event this information is protected by the Federal Confidentiality of Alcohol and Drug Abuse Patient Records regulations: The Federal rules restrict any use of the information to criminally investigate or prosecute any alcohol or drug abuse patient.[facility] Hospital[facility] the event this information is protected by the Federal Confidentiality of Alcohol and Drug Abuse Patient Records regulations: The Federal rules restrict any use of the information to criminally investigate or prosecute any alcohol or drug abuse patient.[facility] HospitalIn the event this information is protected by the Federal Confidentiality of Alcohol and Drug Abuse Patient Records regulations: The Federal rules restrict any use of the information to criminally investigate or prosecute any alcohol or drug abuse patient.[facility] HospitalIn the event this information is protected by the Federal Confidentiality of Alcohol and Drug Abuse Patient Records regulations: The Federal rules restrict any use of the information to criminally investigate or prosecute any alcohol or drug abuse patient.[facility] HospitalIn the event this information is protected by the Federal Confidentiality of Alcohol and Drug Abuse Patient Records regulations: The Federal rules restrict any use of the information to criminally investigate or prosecute any alcohol or drug abuse patient.[facility] HospitalIn the event this information is protected by the Federal Confidentiality of Alcohol and Drug Abuse Patient Records regulations: The Federal rules restrict any use of the information to criminally investigate or prosecute any alcohol or drug abuse patient.[facility] HospitalIn the event this information is protected by the Federal Confidentiality of Alcohol and Drug Abuse Patient Records regulations: The Federal rules restrict any use of the information to criminally investigate or prosecute any alcohol or drug abuse patient.[facility] HospitalIn the event this information is protected by the Federal Confidentiality of Alcohol and Drug Abuse Patient Records regulations: The Federal rules restrict any use of the information to criminally investigate or prosecute any alcohol or drug abuse patient.[facility] Reason for Visit (unrecogniz ed section and content) Reason Comments Results Reason Comments Seizures Specialty Diagnoses / Procedures Referred By Contmilvia t Referred To Contact Diagnoses Partial symptomatic epilepsy with complex partial seizures, intractable, without status epilepticus (HCC) Seizure-like activity (HCC) partial symptomatic epilepsy w/ complex partial seizures intractable w/o status epilepticus needing LTME Chavez Lee DO [address] [facility] [address] [place] [address] [facility] [address] [place] [address] Referral ID Status Reason Start Date Expiration Date Visits Re quested Visits Authorized [id number] 1 1 Reason Comments Future Appointment [place], [place] Reason Comments New Patient Specialty Diagnoses / Procedures Referred By Contac t Referred To Contact HOSP INPATIENT Diagnoses Unspecified convulsions Procedures EEG PHYS/QHP EA INCR>12HR<26HR AFTER 24HR W/VEEG [facility] [address] [place] [address] Referral ID Status Reason Start Date Expiration Date Visits Re quested Visits Authorized [id number] 1 1 Reason Comments Other Reason Comments Established Patient Follow Up Reason Comments Seizures Reason Comments Medication Problem Lamotrigine Specialty Diagnoses / Procedures Referred By Contac t Referred To Contact MR IMAGING Diagnoses Seizure (HCC) Procedures MRI BRAIN WO IVCON MRI BRAIN BRAIN STEM W/O CONTRAST MATERIAL Shandra Higgins PA-C [address] [id number] Mr Imaging [place] [address] Referral ID Status Reason Start Date Expiration Date V isits Requested Visits Authorized [id number] Closed Auto-Generate d Referral 02/03/2024 03/04/2024 1 1 Reason Comments New Specialty Diagnoses / Procedures Referred By Contac t Referred To Contact Psychology Diagnoses Psychogenic nonepileptic seizure Procedures CONSULT TO PSYCHOLOGY OFFICE/OUTPATIENT NEW HIGH MDM 60 MINUTES Shandra Higgins PA-C [address] [id number] Referral ID Status Reason Start Date Expiration Date Visits Requested Visits Authorized [id number] Pending Review PCP Requested Referral 01/02/2024 01/01/2025 1 1 Reason Comments Follow Up Seizures Followup visit Reason Comments Social Work Services Reason Comments Refill Request Reason Comments Follow Up Care Teams (unrecognized sec tion and content) S Iron Worker Relationship Specialty Start Date End Date Emeli Chi, GEGE [address] [place] [address] PCP - General Internal Medicine 07/17/21 Team Status: Inactive Member Role Status Dates TAQUERIA Courtney Primary Care Provider Active Derek Burks Attending Provider Active Team Status: Active Member Role Status Dates Emeli Norma Arti , DIRECTOR OF CARDIOLOGY SERVICE LINE-C Primary Care Provider Active S Iron Worker Relationship Specialty Start Date End Date Emeli Chi [address] [place] [address] PCP - General 11/16/21 S Iron Worker Relationship Specialty Start Date End Date Emeli Chi CNP [address] [place] [address] PCP - General Internal Medicine 07/17/21 S Iron Worker Relationship Specialty Start Date End Date Emeli Chi CNP [address] [place] [address] PCP - General Internal Medicine 07/17/21 S Iron Worker Relationship Specialty Start Date End Date Emeli Chi CNP [address] [place] [address] PCP - General Internal Medicine 07/17/21 S Iron Worker Relationship Specialty Start Date End Date Emeli Chi CNP [address] [place] [address] PCP - General Internal Medicine 07/17/21 S Iron Worker Relationship Specialty Start Date End Date Emeli Chi CNP [address] [place] [address] PCP - General Internal Medicine 07/17/21 S Iron Worker Relationship Specialty Start Date End Date Emeli Chi CNP [address] [place] [address] PCP - General Internal Medicine 07/17/21 S Iron Worker Relationship Specialty Start Date End Date Emeli Chi CNP [address] [place] [address] PCP - General Internal Medicine 07/17/21 S Iron Worker Relationship Specialty Start Date End Date Emeli Chi CNP [address] [place] [address] PCP - General Internal Medicine 07/17/21 S Iron Worker Relationship Specialty Start Date End Date Emeli Chi CNP [address] [place] [address] PCP - General Internal Medicine 07/17/21 S Iron Worker Relationship Specialty Start Date End Date Emeli Chi CNP [address] [place] [address] PCP - General Internal Medicine 07/17/21 S Iron Worker Relationship Specialty Start Date End Date Emeli Chi CNP [address] [place] [address] PCP - General Internal Medicine 07/17/21 S Iron Worker Relationship Specialty Start Date End Date Emeli Chi CNP [address] [place] [address] PCP - General Internal Medicine 07/17/21 S Iron Worker Relationship Specialty Start Date End Date Emeli Chi CNP [address] [place] [address] PCP - General Internal Medicine 07/17/21 S Iron Worker Relationship Specialty Start Date End Date Emeli Chi CNP [address] [facility] [place] [address] PCP - General Internal Medicine 07/17/21 S Iron Worker Relationship Specialty Start Date End Date Emeli Chi CNP [address] [facility] [place] [address] PCP - General Internal Medicine 07/17/21 S Iron Worker Relationship Specialty Start Date End Date Emeli Chi CNP [address] [place] [address] PCP - General Internal Medicine 07/17/21 S Iron Worker Relationship Specialty Start Date End Date Emeli Chi CNP [address] [place] [address] PCP - General Internal Medicine 07/17/21 S Iron Worker Relationship Specialty Start Date End Date Emeli Chi CNP [address] [place] [id number] PCP - General Internal Medicine 07/17/21 S Iron Worker Relationship Specialty Start Date End Date Emeli Chi CNP [address] [place] [id number] PCP - General Internal Medicine 07/17/21 S Iron Worker Relationship Specialty Start Date End Date Emeli Chi CNP [address] [place] [id number] PCP - General Internal Medicine 07/17/21 S Iron Worker Relationship Specialty Start Date End Date Emeli Chi CNP [address] [place] [id number] PCP - General Internal Medicine 07/17/21 Goals [...] 183 (Given - Provider: Brittaney Scott RN) 1814 (Not Given - Provider: Wanda Moulton RN [...] RN) 09 (Given - Provider: Wanda Moulton RN)211 (Not [...] BE BASED ON THE PRIMARY CLINICAL RECORDS. [employer] provides no warranty or guarantee of the accuracy or completeness of information in this document.
[2025-02-18 23:38] VITALS: BP 129/96; PULSE 73; TEMP 36.8; O2SAT 97; BMI 26.6
--- NOTE | 2025-02-19 00:58 | PC.NURSE ---
patient states he was not feeling well earlier today prior to going to work. While he was at work he started feeling worse. 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 He states he was drinking water all day, but his mother states she thinks he was not drinking enough and that is why he is having pain and cramping in his legs. He states he was having weakness and numbness earlier, but now he describes it as a heaviness and weakness.
--- NOTE | 2025-02-19 01:11 | ED.GENADUL1 ---
HPI HPI - General Adult General Chief complaint: Extremity Problem, Nontraumatic Stated complaint: NUMBNESS IN LEGS Time Seen by Provider: 02/18/25 23:33 Source: patient Mode of arrival: Wheelchair Limitations: no limitations History of Present Illness HPI narrative: This 29-year-old male with a history of seizure disorder who is on Keppra, and oxcarbazepine presents for evaluation of an episode today where he was at work and was not feeling well. He states he was talking to his supervisors and attempted to get up and fell forward. He did not have a seizure at that time. He states he was not feeling well before work but went to work anyway. He complains of his legs feeling heavy on exam. He did not fall or get injured at the episode earlier in the day while at work. He has not had any recent seizures. He has no other focal weakness numbness or tingling. He denies any chest pain or shortness of breath. He has not had a fever. He admits that it is quite hot at his job although they do have fans. He maintains compliance with his seizure medications. His mother is with him and states that she make sure he takes his medications on a daily basis. Related Data Home Medications ?Medication ?Instructions ?Recorded ?Confirmed oxcarbazepine 600 mg tablet 600 mg PO BID 02/05/23 02/18/25 lamotrigine 25 mg tablet 50 mg PO BID 10/10/24 02/18/25 levetiracetam 250 mg tablet 250 mg PO BID 10/10/24 02/18/25 omeprazole 20 mg capsule,delayed 20 mg PO .before meal 10/10/24 02/18/25 release vilazodone 20 mg tablet 20 mg PO .once daily 10/10/24 02/18/25 Allergies Allergy/AdvReac Type Severity Reaction Status Date / Time No Known Drug Allergies Allergy Verified 02/18/25 23:37 Opioid HPI Opioid Management Most Recent Opioid Data: Last Pain Scale 6 01/11/25, 17:19 Ur Phencyclidine Scrn, (NEGATIVE) Negative 10/27/23, 23:41 Review of Systems ROS Status of ROS 10 or more systems reviewed and unremarkable except as noted in history and below [facility] Medical History (Updated 02/19/25 @ 01:51 by Anjali Venegas MD) Epilepsy ?G40.909 - Epilepsy, unspecified, not intractable, without status epilepticus (ICD-10) Social History Smoking status: Unknown if ever smoked Little interest or pleasure in doing things: not at all Feeling down, depressed, or hopeless: not at all Exam Narrative Exam Narrative: Vital signs and Nursing Notes reviewed: Patient is afebrile with a normal pulse, diastolic blood pressure is mildly elevated with a blood pressure of 129/96, he is not hypoxic with pulse ox of 97% on room air General: Awake, alert, oriented, no acute distress, lying comfortably on the stretcher-laughing and joking with his family HEENT: Normocephalic atraumatic, mucous membranes are slightly dry, no swelling of the tongue, uvula or pharyngeal soft tissues, no tongue laceration or contusion noted, no oral bleeding Neck: Supple, no meningeal signs, no anterior or posterior cervical lymphadenopathy Chest: Lungs are clear to auscultation with good air entry, there is no wheezing rhonchi or rales appreciated no accessory muscle use, patient is speaking in complete sentences-no chest wall tenderness to palpation CVS: Regular rate and rhythm S1-S2, no murmurs rubs or gallops, pulses are brisk and equal bilaterally ABD: Soft, nondistended, nontender, no rebound guarding or rigidity, bowel sounds are normal, no pulsatile masses appreciated Extremities: Patient is wearing shorts, there is no calf swelling or tenderness, there is no notable injury to the extremities. There is no tenderness redness swelling bruising or other notable abnormality to either extremity. He is able to flex and extend at the hip without difficulty Skin: Normal in appearance without rash,pallor, petechiae or purpura Neuro: No focal deficits; speech is clear, alliance manager strength is intact, upper and lower extremity strength and sensation is intact, Constitutional Vital Signs, click to edit/add: Last Vital Signs Temp 98.3 F 02/18/25 23:38 Pulse 73 02/18/25 23:38 Resp 18 02/18/25 23:38 BP 129/96 H 02/18/25 23:38 Pulse Ox 97 02/18/25 23:38 O2 Del Method Room Air 02/18/25 23:38 Course Vital Signs Vital signs: Vital Signs Temperature 98.3 F 02/18/25 23:38 Pulse Rate 73 02/18/25 23:38 Respiratory Rate 18 02/18/25 23:38 Blood Pressure 129/96 H 02/18/25 23:38 Pulse Oximetry 97 02/18/25 23:38 Oxygen Delivery Method Room Air 02/18/25 23:38 Temperature 98.3 F 02/18/25 23:38 Pulse Rate 73 02/18/25 23:38 Respiratory Rate 18 02/18/25 23:38 Blood Pressure 129/96 H 02/18/25 23:38 Pulse Oximetry 97 02/18/25 23:38 Oxygen Delivery Method Room Air 02/18/25 23:38 Medical Decision Making MDM Narrative Medical decision making narrative: This 29-year-old male with a history of epilepsy is brought to the emergency department by his family for evaluation of leg weakness/heaviness that started earlier in the day while at work. Apparently he does not feel well before going to work but went to work anyway. He started to feel worse and was concerned that he was going to have a seizure. He was sitting down and when he attempted to get up he fell forward. He did not fall. 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 He states his legs feel weak and numb. He does not have any neurologic symptoms. He does admit that the place where he works is very hot. His oral mucosa was slightly dry. His lungs are clear, abdomen is soft. He is not having any chest pain or shortness of breath. An IV was established and he was given IV fluids and Toradol. He has fallen asleep. Routine team labs are reviewed. He has a normal white count and stable hemoglobin. Electrolytes are normal. CPK is normal. The results of my findings were discussed with him and he feels comfortable being discharged home at this time. He does not have to return to work until Saturday night so he has the next several days off to hydrate, rest and I recommended continuing his medicines for his seizures and follow-up closely with his neurologist. Lab Data Labs: Lab Results 02/19/25 Range/Units 01:05 WBC 6.1 (4.0-11.0) 10^3/uL RBC 5.36 (4.70-6.10) 10^6/uL Hgb 15.5 (14.0-18.0) g/dL Hct 43.6 (42.0-54.0) % MCV 81.3 (80.0-94.0) fL MCH 28.9 (25.9-34.0) pg MCHC 35.6 H (29.9-35.2) g/dL RDW 12.5 (11.0-15.0) % Plt Count 206 (150-450) 10^3/uL MPV 9.1 L (9.5-13.5) fL Neut % (Auto) 56.1 (43.0-75.0) % Lymph % (Auto) 34.3 (20.5-60.0) % Edmunds % (Auto) 7.4 (1.7-12.0) % Eos % (Auto) 1.5 (0.9-7.0) % Baso % (Auto) 0.5 (0.2-2.0) % Neut # (Auto) 3.4 (1.4-6.5) 10^3/uL Lymph # (Auto) 2.1 (1.2-3.8) 10^3/uL Edmunds # (Auto) 0.5 (0.3-0.8) 10^3/uL Eos # (Auto) 0.1 (0.0-0.7) 10^3/uL Baso # (Auto) 0.0 (0.0-0.1) 10^3/uL Abs Immat Gran (auto) 0.01 (0.00-0.03) 10^3/uL Imm/Tot Granulo (auto) 0.2 (0.0-0.5) % Sodium 139 (136-145) mmol/L Potassium 3.6 (3.5-5.1) mmol/L Chloride 101 (98-107) mmol/L Carbon Dioxide 27.2 (21.0-32.0) mmol/L Anion Gap 14.4 BUN 14.0 (7.0-18.0) mg/dL Creatinine 0.93 (0.70-1.30) mg/dL Est GFR ( Amer) >60 (>=60 mL/min/1.73m^2) Est GFR (Non-Af Amer) >60 (>=60 mL/min/1.73m^2) BUN/Creatinine Ratio 15.1 Glucose 100 (74-106) mg/dL Calcium 9.5 (8.5-10.1) mg/dL Total Bilirubin 0.4 (0.2-1.0) mg/dL AST 18 (15-37) U/L ALT 32 (16-63) U/L Alkaline Phosphatase 128 H (46-116) U/L Total Creatine Kinase 200 (39-308) U/L Total Protein 7.8 (6.4-8.2) g/dL Albumin 4.0 (3.4-5.0) g/dL Globulin 3.8 g/dL Albumin/Globulin Ratio 1.1 Discharge Plan Discharge Chief Complaint: Extremity Problem, Nontraumatic Clinical Impression: Generalized muscle weakness Patient Disposition: Home, Self-Care Time of Disposition Decision: 01:51 Condition: Good Prescriptions / Home Meds: No Action oxcarbazepine 600 mg tablet 600 mg PO BID lamotrigine 25 mg tablet 50 mg PO BID levetiracetam 250 mg tablet 250 mg PO BID omeprazole 20 mg capsule,delayed release(DR/EC) 20 mg PO .before meal vilazodone 20 mg tablet 20 mg PO .once daily Print Language: German Instructions: Weakness (ED) Additional Instructions: Rest, drink plenty of fluids, continue taking your normal medications. Follow-up closely with your neurologist. Referrals: MANNY CHI [Primary Care Provider, Family Practice] - 1 week
[2025-02-19] MEDS: 0.9 % SODIUM CHLORIDE 1,000 ML 1000 ML IV (01:12)
[2025-02-19] MEDS: KETOROLAC TROMETHAMINE 30 MG/ML VIAL IVP (01:13)
[2025-02-19 01:15] LABS: Hematocrit 43.6 % (42.0-54.0); Hemoglobin 15.5 g/dL (14.0-18.0); Immature Granulocytes Abs Auto 0.01 10^3/uL (0.00-0.03); Immature Granulocytes Pct Auto 0.2 % (0.0-0.5); Lymphocytes Absolute Auto 2.1 10^3/uL (1.2-3.8); Mean Corpuscular HGB Conc 35.6 g/dL (29.9-35.2); Mean Corpuscular Hemoglobin 28.9 pg (25.9-34.0); Mean Corpuscular Volume 81.3 fL (80.0-94.0); Platelet Count 206 10^3/uL (150-450); Red Blood Count 5.36 10^6/uL (4.70-6.10); White Blood Count 6.1 10^3/uL (4.0-11.0)
[2025-02-19 01:32] LABS: Alanine Aminotransferase 32 U/L (16-63); Albumin Globulin Ratio 1.1; Albumin Level 4.0 g/dL (3.4-5.0); Alkaline Phosphatase 128 U/L (46-116); Anion Gap 14.4; Aspartate Amino Transferase 18 U/L (15-37); Blood Urea Nitrogen 14.0 mg/dL (7.0-18.0); Calcium 9.5 mg/dL (8.5-10.1); Carbon Dioxide 27.2 mmol/L (21.0-32.0); Chloride 101 mmol/L (98-107); Creatine Kinase 200 U/L (39-308); Estimated GFR (African America >60 (>=60 mL/min/1.73m^2); Estimated GFR (Non-African Ame >60 (>=60 mL/min/1.73m^2); Globulin 3.8 g/dL; Glucose 100 mg/dL (74-106); Potassium 3.6 mmol/L (3.5-5.1); Sodium 139 mmol/L (136-145); Total Protein 7.8 g/dL (6.4-8.2)
== END 2025-02-19 02:32 | disposition home or self-care (01) ==
PROVIDERS: Emergency Provider Emergency Medicine; PCP Nurse Practitioner Family
DX: M62.81 Muscle weakness (generalized) (principal); G40.909 Epilepsy, unspecified, not intractable, without status epilepticus; Z79.899 Other long term (current) drug therapy
CPT/HCPCS: 36415; 80053; 82550; 85025; 96374; 99284; J1885

== ENCOUNTER 2025-03-10 20:22 | Emergency (ER) | payer OTHER, SELFPAY ==
--- OUTSIDE RECORDS SUMMARY | 2023-11-01 05:43 | XMS_ITS ---
Author Organization The [facility] in [place] Address [address] [place] [address] Care Team Providers Care Engine Test Cell Technician Name Role Phone Emeli Barber Primary Care Provider EMELI BARBER Unavailable [phone] REASON FOR VISIT update from neuro Medications Medication SIG (Take, Route, Frequency, Duration) Notes Start Date End Date Status lamoTRIgine 200 MG 2 1/2 tablet Orally twice daily 500mg BID Active OXcarbazepine 600 MG 1 tablet Orally Twi ce a day for 30 days Active Ventolin HFA 108 (90 Base) MCG/ACT 2 puff Inhalation every 4 hrs as needed Active Vilazodone HCl 20 MG Oral for 30 Days Active Aspirin Adult Low Dose 81 MG 2 tablet Orally Once a day Active Encounters Encounter Location Date Provider Diagnosis [facility] [address] [place] [address] 11/01/2023 EMELI BARBER Plan Of Treatment No Information Progress Notes * Nando LOPEZDOB:1995 (28 yo M)Acc No.[id number]:11/01/2023 Patient: Nando Patten :1995 A ge:28 Y S ex:Male Address:[address] [place] [address], [address] [place] [address] Subjective: * Chief Complaints: * U pdate from neuro * Medical History: * Surgical History: * Hospitalization/Major Diagno stic Procedure: * Medications: T akingAspirin Adult Low Dose(Aspirin) 81 MG Tablet Delayed Release 2 tablet Orally Once a daylamoTRIgine 200 MG Tablet 2 1/2 tablet Orally twice daily, Notes: 500mg BIDOXcarbazepine 600 MG Tablet 1 tablet Orally Twice a dayVentolin HFA(Albuterol Sulfate HFA) 108 (90 Base) MCG/ACT Aerosol Solution 2 puff Inhalation every 4 hrs as neededVilazodone HCl 20 MG Tablet Oral Taking Aspirin Adult Low Dose(Aspirin) 81 MG Tablet Delayed Release 2 tablet Orally Once a dayTaking lamoTRIgine 200 MG Tablet 2 1/2 tablet Orally twice daily, Notes: 500mg BIDTaking OXcarbazepine 600 MG Tablet 1 tablet Orally Twice a dayTaking Ventolin HFA(Albuterol Sulfate HFA) 108 (90 Base) MCG/ACT Aerosol Solution 2 puff Inhalation every 4 hrs as neededTaking Vilazodone HCl 20 MG Tablet Oral Objective: Assessment: Plan: * Treatment: * Procedure Codes: * true * Date: Generated for Phillip france/Lisbeth/Javier on: 0 03/10/2025 08:30 PM EDT
--- OUTSIDE RECORDS SUMMARY | 2024-01-07 05:30 | XMS_ITS ---
Author Organization [facility] Serv[facility] Address [address] [place] [address] Care Team Providers Care Business Team Leader Name Role Phone Sylvie Shelton Primary Care Provider Yanick Phelan [facility] [phone] REASON FOR VISIT FILLING Encounters Encounter Location Date Provider [address] [place] [address] 01/07/2024 Yanick Phelan Plan Of Treatment No Information Progress Notes * COREY LOPEZDOB:1995 (29 yo M)Acc No.[id number]:01/07/2024 Patient: COREY LOPEZ Provider: Darien Parr DDS :1995 A ge:28 Y S ex:Male Date:01/07/2024 Address:[address] [place] [address], [address] Pcp:Sylvie Murphy Subjective: * Chief Complaints: * 1 . FILLING. * Medical History: Objective: * Vitals: Assessment: Plan: * Treatment: * Images: * Electronic signature of Chris Phelan on 03/10/2025 at 08:29 PM EDT Sign off status: Pending * Provider: Darien Parr DDS Date: 01/07/2024 Generated for Phillip france/Lisbeth/eTransmitting on: 03/10/2025 08:29 PM EDT
--- OUTSIDE RECORDS SUMMARY | 2024-01-24 05:30 | XMS_ITS ---
Author Organization [facility] Address [address] [place] [address] Care Team Providers Care Care Consultant Name Role Phone Sylvie Shelton Primary Care Provider REASON FOR VISIT RCT Encounters Encounter Location Date Provider Diagnosis [place] [address] [place] [address] 01/24/2024 Sylvie Francisco Plan Of Treatment No Information Progress Notes * COREY LOPEZDOB:1995 (29 yo M)Acc No.[id number]:01/24/2024 Patient: Darien CROWECHIRAGCOREY Provider: Uzair FRANCISCO DDS :1995 A ge:28 Y S ex:Male Date:01/24/2024 Address:[address] [place] [address], [address] Subjective: * Chief Complaints: * 1 . RCT. * Medical History: Objective: * Vitals: Assessment: Plan: * Treatment: * Images: * Electronic signature of Winifred Francisco DDS on 03/10/2025 at 08:29 PM EDT Sign off status: Pending * Provider: Uzair FRANCISCO DDS Date: 01/24/2024 Generated for Printi ng/Faxing/eTransmitting on: 03/10/2025 08:29 PM EDT
--- OUTSIDE RECORDS SUMMARY | 2024-10-01 07:30 | XMS_ITS ---
Author Organization The [facility] in [place] Address [address] [place] [address] Care Team Providers Care Yard Brakeman Name Role Phone Emeli Barber Primary Care [...] Status Risk Notes Problem Recurrent major depression (14107050) Depression, recurrent (F33.9) Active confirmed Problem GERD (gastroesophag eal reflux disease) (K21.9) Active confirmed Vital Signs Weight 181 lbs 10/01/2024 Height 65 in 10/01/2024 Blood pressure systolic 112 mm Hg 10/02/19 25 Blood pressure diastolic 70 mm Hg 025 BMI 30.12 kg/m2 10/01/2024 Encounters Encounter Location Date Provider Diagnosis [facility] [address] [place] [address] 10/01/2024 Emeli Barber Depression, recurrent F33.9 and [...] 4 Weeks,prn, Reas on: Progress Notes * Nando LOPEZDOB:1995 (29 yo M)Acc No.[id number]:10/01/2024 Progress Note Patient: Darien PEARLNando Provider: Amari Barber ([facility]), DIVE SUPERINTENDENT :1995 A ge:29 Y S ex:Male Date:10/01/2024 Address:[address] [place], [place] [id number] Check In:11:22 AM ESTCheck O ut:11:52 AM EST Subjective: * Chief Complaints: * 1 . Yearly wellness exam needs meds refilled. * HPI: G eneral: [place] Bryanna seeing neurology vilazodone refill out of relationship [...] fu dentist * Preventive Medicine: Screenings/Counseling: B MS ACTION PLAN Above Normal BMI Follow-up D ietary management education, guidance, and counseling * Follow Up: 4 Weeks,prn * * Electronically signed by Cynthia Barber NP, WOOD TANK ERECTOR.DIVE SUPERINTENDENT.[id number] on 10/02/2024 at 11:32 AM EST Sign off status: Completed Visit Status: C HK (Check Out) true * Provider: Amari Barber ([facility]), [place] Date: 0 10/01/2024 Generated for Phillip france/Lisbeth/eTransmitting on: 0 03/10/2025 08:30 PM EDT History and Physical Notes * HPI (History of Present Illness) Category Sub-Category Detail Notes Category Not es General [place] K seeing neurology vilazodone refill out of [...]
[2025-03-10] VITALS (26 sets, daily range): BP systolic 115–132; BP diastolic 73–88; PULSE 58–88; TEMP 36.8; O2SAT 97–99
--- OUTSIDE RECORDS SUMMARY | 2025-03-10 20:29 | XMS_ITS | Encounter Summary ---
Author Organization [facility] Address [address] [place] [address] Care Team Providers Care Annual Giving Director Name Role Phone Emeli Barber [place] Primary Care Provider + Source Comments In the event this information is protected by the Federal Confidentiality of Alcohol and Drug AbusePatient Records regulations: The Federal rules restrict any use of the information to criminally investigate or prosecute any alcohol or drug abuse patient.[facility] Encounter Details Date Type Department Care Team (Late st Contact Info) Description 09/13/2021 Get Medical Advice Urology [address] [place] [address] Domi Scruggs MD [address] [place] [address] Back to normal Social History Tobacco Use [...] N ot on file 01/20/2021 Data from: https://www.neighborhoodatlas.[facility].edu/. Last address used for calculation Not on [...] on filedocumented in this encounter Care Teams Annual Giving Director Relationship Specialty Start Date End Date Emeli Barber CNP [address] [place] [address] PCP - General Internal Medicine 07/17/21 documented as of this encounter
--- OUTSIDE RECORDS SUMMARY | 2025-03-10 20:29 | XMS_ITS | Encounter Summary ---
Author Organization [facility] Address [address] [place] [address] Care Team Providers Care Android Framework Developer Name Role Phone Emeli Barber [place] Primary Care Provider + Source Comments In the event this information is protected by the Federal Confidentiality of Alcohol and Drug AbusePatient Records regulations: The Federal rules restrict any use of the information to criminally investigate or prosecute any alcohol or drug abuse patient.[facility] Encounter Details Date Type Department Care Team (Late st Contact Info) Description 07/25/2021 Patient Msg Urology [address] [place], [place] [id number] Domi Scruggs MD [address] [place] [address] COVID test needed 3 days prior to [...] N ot on file 01/20/2021 Data from: https://www.neighborhoodatlas.medicine.[facility].edu/. Last address used for calculation Not [...] documented as of this encounter Care Teams Android Framework Developer Relationship Specialty Start Date End Date Emeli Barber, [place] [address] [place] [address] PCP - General Internal Medicine 07/17/21 documented as of this encounter
--- OUTSIDE RECORDS SUMMARY | 2025-03-10 20:29 | XMS_ITS | Encounter Summary ---
Author Organization [facility] Address [facility] [place] [address] Care Team Providers Care Actuarial Trainee Name Role Phone Emeli Barber [place] Primary Care Provider + Source Comments In the event this information is protected by the Federal Confidentiality of Alcohol and Drug AbusePatient Records regulations: The Federal rules restrict any use of the information to criminally investigate or prosecute any alcohol or drug abuse patient.[facility] Encounter Details Date Type Department Care Team (Late st Contact Info) Description 11/28/2023 Patient Msg Neurology [address] [place] [id number] Provider, Ccf Admission Social History Tobacco Use [...] N ot on file 01/20/2021 Data from: https://www.neighborhoodatlas.medicine.[facility].edu/. Last address used for calculation Not [...] on filedocumented in this encounter Care Teams Actuarial Trainee Relationship Specialty Start Date End Date Emeli Barber CNP [address] [place] [address] PCP - General Internal Medicine 07/17/21 documented as of this encounter
--- OUTSIDE RECORDS SUMMARY | 2025-03-10 20:29 | XMS_ITS | Encounter Summary ---
Author Organization [facility] Address [address] [place], [place] [id number] Care Team Providers Care Board Of Directors Name Role Phone Emeli Barber [place] Primary Care Provider + Source Comments In the event this information is protected by the Federal Confidentiality of Alcohol and Drug AbusePatient Records regulations: The Federal rules restrict any use of the information to criminally investigate or prosecute any alcohol or drug abuse patient.[facility] Encounter Details Date Type Department Care Team (Late st Contact Info) Description 08/28/2021 Patient Msg Urology [address] [address] Won Huerta MD [address] [address] Letter for work Social History Tobacco Use [...] N ot on file 01/20/2021 Data from: https://www.neighborhoodatlas.medicine.[facility].edu/. Last address used for calculation [...] on filedocumented in this encounter Care Teams Board Of Directors Relationship Specialty Start Date End Date Emeli Barber, [place] [address] [place] [address] PCP - General Internal Medicine 07/17/21 documented as of this encounter
--- OUTSIDE RECORDS SUMMARY | 2025-03-10 20:29 | XMS_ITS | Patient Health Record ---
Author Organization [employer] [facility] [employer] [facility] Address [address] [place] [address] Care Team Providers Care Video Conference Specialist Name Role Phone Sylvie Shelton Primary Care Provider [phone] Reason For Referral No Information Medications Medication [...] Coverage Start Date Coverage End Date Dental [employer] [address] [address] [place] [address] [id number] COREY LOPEZ Self - patient is the insured 3 [employer] Isabel [address] [place] [address] [id number] COREY LOPEZ Self - patient is the insured 3 [facility] ed 22. [address] [place] [address] [id number] COREY LOPEZ Self - patient is the insured 2 3 zMEDICAID CFC after [place]-ter med 22 [address] [place] [address] [id number] COREY LOPEZ Self - patient is the insured 2 3 zDENTAL [place]UCKEYE-ter med 22 [address] [address] [place] [address] [id number] COREY LOPEZ Self - patient is the insured 2 3 [facility] MEDICA[facility] CFC after [place]-ter med 22 [address] [place] [address] [id number] COREY LOPEZ Self - patient is the insured 2 3
--- OUTSIDE RECORDS SUMMARY | 2025-03-10 20:29 | XMS_ITS | Encounter Summary ---
Author Organization [facility] Address [address] [facility], [address] [place] [address] Care Team Providers Care Patternmaker Wood Name Role Phone Emeli Barber METER SUPERVISOR - POULTRY TENDER Primary Care Provide r Reason for Visit * Reason Comments Medication Refill Encounter Details Date Type Department Care Team (Late st Contact Info) Description 01/28/2025 Refill [facility] NEUR[facility] Part of [address] [place] [phone] Pankaj Scherer MD [address] [place] [address] [address] [place] [id number] Medication Refill Social History Tobacco Use Types [...] Encounters Date Type Department Care Team (Late Contact Info) Description 03/11/2025 3:00 PM EDT Office Visit [facility] Part of [address] [place] [address] Pankaj Scherer MD [address] [place] [address] [address] [place] [address] F/U from 09/08/24 documented as of this encounter Visit Diagnoses Not on filedocumented in this encounter Care Teams Patternmaker Wood Relationship Specialty Start Date End Date Emeli Barber, BELL - POULTRY TENDER [address] [place] [address] [place] [address] PCP - General 11/16/21 documented as of this encounter
--- OUTSIDE RECORDS SUMMARY | 2025-03-10 20:29 | XMS_ITS | Encounter Summary ---
Author Organization [facility] Address [address] [place], [place] [id number] Care Team Providers Care Economics Analyst Name Role Phone Emeli Barber [facility] Primary Care Provider + Source Comments In the event this information is protected by the Federal Confidentiality of Alcohol and Drug AbusePatient Records regulations: The Federal rules restrict any use of the information to criminally investigate or prosecute any alcohol or drug abuse patient.[facility] Encounter Details Date Type Department Care Team (Late st Contact Info) Description 08/03/2021 Patient Msg Pre Anesthesia [address] [place] [address] Gisela Lawton APRN.FIREPOT OPERATOR AND TENDER [address] [place] [address] Instructions for Surgery Social History Tobacco Use [...] N ot on file 01/20/2021 Data from: https://www.neighborhoodatlas.medicine.[facility].edu/. Last address used for calculation [...] documented as of this encounter Care Teams Economics Analyst Relationship Specialty Start Date End Date Emeli Barber, FIREPOT OPERATOR AND TENDER [address] [place] [address] PCP - General Internal Medicine 07/17/21 documented as of this encounter
--- OUTSIDE RECORDS SUMMARY | 2025-03-10 20:29 | XMS_ITS | Encounter Summary ---
Author Organization [facility] Address [address] [place] [address] Care Team Providers Care Pharmaceutical Operator Name Role Phone Emeli Barber [place] Primary Care Provider + Source Comments In the event this information is protected by the Federal Confidentiality of Alcohol and Drug AbusePatient Records regulations: The Federal rules restrict any use of the information to criminally investigate or prosecute any alcohol or drug abuse patient.[facility] Encounter Details Date Type Department Care Team (Late st Contact Info) Description 08/30/2021 Get Medical Advice Urology [address] [place] [address] Domi Scruggs MD [address] [place] [address] Catheter Social History Tobacco Use Types Packs/Day [...] N ot on file 01/20/2021 Data from: https://www.neighborhoodatlas.medicine.[facility].edu/. Last address used for calculation Not [...] on filedocumented in this encounter Care Teams Pharmaceutical Operator Relationship Specialty Start Date End Date Emeli Barber CNP [address] [place] [address] PCP - General Internal Medicine 07/17/21 documented as of this encounter
--- OUTSIDE RECORDS SUMMARY | 2025-03-10 20:30 | XMS_ITS | Patient Health Record ---
Author Organization [facility] in [place] Address [address] [facility] [place] [address] Care Team Providers Care Road Repairer Name Role Phone Emeli Barber Primary Care Provider [phone] Allergies No Known Allergies Results Component Value Reference Range Notes CBC AUTO DIFF Reviewed date:10/12/2024 04:15:57 PM Interpretation: Performing Lab: Notes/Report: [facility] , White Blood Count 6.3 4.0-11.0 10 [...] 10 3/uL Performing Lab: see note - [facility] LB PROF 14(COMP METB) Reviewed date:10/12/2024 04:15:48 PM Interpretation: Performing Lab: Notes/Report: [facility] , Sodium 140 136-145 mmol/L [...] 1.3 Performing Lab: see note ML - [facility] LB CBC AUTO DIFF Reviewed date:11/30/2024 09:52:19 AM Interpretation: Performing Lab: Notes/Report: [facility] , White Blood Count 4.6 [...] Performing Lab: see note ML - [facility] LB D-DIMER Reviewed date:11/30/2024 09:52:19 AM Interpretation: Performing Lab: Notes/Report: [facility] , D Dimer <0.19 <=0.59 mg/L FEU Increases in D-Dimer concentration observed with thromboembolic events can be variable due to localization, size, and age of the thrombus. Therefore, a thromboembolic event cannot be diagnosed with certainty on the basis of the reference range. D-Dimers may also be elevated for a variety of disorders including advanced age, , coronary disease, cancer, liver disease, infection, inflammation, hematoma, DIC, trauma, post-surgery, diabetes, thrombolytic or anticoagulant therapy, stress, and generalized hospitalization. Performing Lab: see note ML - [facility] LB PROF 14(COMP METB) Reviewed date:11/30/2024 09:52:19 AM Interpretation: Performing Lab: Notes/Report: [facility] , Sodium 134 136-145 mmol/L [...] 1.1 Performing Lab: see note ML - [facility] LB Troponin I High Sensitivity Reviewed date:11/30/2024 09:52:19 AM Interpretation: Performing Lab: Notes/Report: [facility] , Troponin I High Sensitivity <4.0 4.0-76.1 pg/mL CUT-OFF POINTS HAVE BEEN ESTABLISHED BASED ON THE FOURTH UNIVERSAL DEFINITION OF MYOCARDIAL INFARCTION. THE UPPER REFERENCE LIMIT (URL) OF TROPONIN, DEFINED THE 99TH PERCENTILE OF cTnI DISTRIBUTION IN A REFERENCE POPULATION, HAS BEEN CONFIRMED THE DECISION THRESHOLD FOR ME DIAGNOSIS. 99TH PERCENTILE = 76.2 PG/ML NOTE: HIGH-SENSITIVITY TROPONIN ASSAY IS NOT INTENDED TO BE USED IN ISOLATION BUT SHOULD BE INTERPRETED IN CONJUNCTION WITH OTHER DIAGNOSTIC AND CLINICAL INFORMATION. Performing Lab: see note ML - [facility] LB ECG 12 lead Reviewed date:11/30/2024 09:52:19 AM Interpretation: Performing Lab: Notes/Report: Source Facility: [facility] [place] [address] [place] [address] Electrocardiograph Report Signed Patient: COREY LOPEZ MR#: [id number] : 1995 Acct:[id number] Age/Sex: 29 / M ADM Date: 11/29/24 Loc: ER Attending Dr: Ordering Physician: Elizabeth Patrick Date of Service: 11/29/24 Procedure(s): ECG 12 lead Accession Number(s): [id number] cc: [facility] Test Date: 2024-11-29 Pat Name: COREY LOPEZ Department: Room: - Gender: Male Chief Sales Officer: : 1995 Requested By: 1854 Order Number: [id number] Reading MD: MIGUEL BUNCH M.D. Measurements Intervals Austin Rate: 73 P: 58 CT: 146 QRS: 57 QRSD: 100 T: 26 QT: 372 QTc: 398 Interpretive Statements 1100 Sinus rhythm 9110 normal ECG Compared to ECG 03/04/2024 17:27:30 Sinus tachycardia no longer present Electronically Signed On 11-30-2024 7:44:59 EDT by MIGUEL BUNCH M.D. Dictated By: MIGUEL BUNCH Signed By: 11/30/24 0745 DD/ 1403 TD/TT: Php Architect: [place] [address] Electrocardiograph Report Signed Patient: GHADA LOPEZ MR#: [id number] : 1995 Acct:[id number] Age/Sex: 29 / M ADM Date: 11/29/24 Loc: ER Attending Dr: Ordering Physician: Elizabeth Patrick Date of Service: 11/29/24 Procedure(s): ECG 12 lead Accession Number(s): [id number] cc: [facility] Test Date: 2024-11-29 Pat Name: COREY MICHELLE Department: 98 Room: - Gender: Male Chief Sales Officer: : 1995 Requ ested By: 1854 Order Number: [id number] Reading MD: MIGUEL BUNCH M.D. Measurements Intervals [place] Rate: 73 P: 58 CT: 146 QRS: 57 QRSD: 100 T: 26 QT: 372 QTc: 398 Interpretive Statements 1100 Sinus rhythm 9110 normal ECG Compared to ECG 03/04/2024 17:27:30 Sinus tachycardia no longer present Electronically Malorie d On 11-30-2024 7:44:59 EDT by MIGUEL BUNCH M.D. Dictated By: MIGUEL BUNCH Signed By: 11/30/24 0745 DD/ 1403 TD/TT: Php Architect: CBC AUTO DIFF Reviewed date:01/14/2025 10:32:02 AM Interpretation: Performing Lab: Notes/Report: [facility] , White Blood Count 6.3 [...] Performing Lab: see note ML - [facility] LB PROF CHEM 8 (BAS METB) Reviewed date:01/14/2025 10:32:02 AM Interpretation: Performing Lab: Notes/Report: [facility] , Sodium 138 136-145 mmol/L [...] 9.5 8.5-10.1 mg/dL Performing Lab: see note ML - [facility] LB ECG 12 lead Reviewed date:01/14/2025 10:32:02 AM Interpretation: Performing Lab: Notes/Report: Source Facility: [place] [address] Electrocardiograph Report Signed Patient: COREY LOPEZ MR#: [id number] : 1995 Acct:[id number] Age/Sex: 29 / M ADM Date: 01/11/25 Loc: ER Attending Dr: Ordering Physician: Grant Mcqueen M.D. Date of Service: 01/11/25 Procedure(s): ECG 12 lead Accession Number(s): [id number] cc: [facility] Test Date: 2025-01-11 Pat Name: COREY LOPEZ Department: Room: - Gender: Male Chief Sales Officer: : 1995 Requested By: 1030 Order Number: [id number] Reading MD: MIGUEL BUNCH M.D. Measurements Intervals Austin Rate: 99 P: 61 CT: 156 QRS: 65 QRSD: 94 T: 71 QT: 336 QTc: 392 Interpretive Statements 1100 Sinus rhythm 2440 Incomplete right bundle branch block 9130 borderline ECG Compared to ECG 11/29/2024 14:03:51 Incomplete right bundle-branch block now present Electronically Signed On 01-11-2025 16:56:57 EDT by MIGUEL BUNCH M.D. Dictated By: MIGUEL BUNCH Signed By: 01/11/25 8311 DD/ 6393 TD/TT: Php Architect: The [address] [address] Electrocardiograph Report Signed Patient: GHADA LOPEZ MR#: [id number] : 1995 Acct:[id number] Age/Sex: 29 / M ADM Date: 01/11/25 Loc: ER Attending Dr: Ordering Physician: Grant Mcqueen M.D. Date of Service: 01/11/25 Procedure(s): ECG 12 lead Accession Number(s): [id number] cc: [facility] Test Date: 2025-01-11 Pat Name: COREY MICHELLE Department: 98 Room: - Gender: Male Chief Sales Officer: : 1995 Requested By: 1030 Order Number: [id number] Reading MD: MIGUEL BUNCH M.D. Measurements Intervals [place] Rate: 99 P: 61 CT: 156 QRS: 65 QRSD: 94 T: 71 QT: 336 QTc: 392 Interpretive Statements 1100 Sinus rhythm 2440 Incomplete righ t bundle branch block 9130 borderline ECG Compared to ECG 11/29/2024 14:03:51 Incomplete right bundle-branch block now present Electronically Malorie d On 01-11-2025 16:56:57 EDT by MIGUEL BUNCH M.D. Dictated By: MIGUEL BUNCH Signed By: 01/11/25 1657 DD/ 1523 TD/TT: Php Architect: CBC AUTO DIFF Reviewed date:02/03/2025 08:47:31 AM Interpretation: Performing Lab: Notes/Report: [facility] , White Blood Count 6.0 4.0-11.0 10 3/uL Red Blood Count 5.38 4.70-6.10 10 6/uL Hemoglobin 15.9 14.0-18.0 g/dL Hematocrit 44.1 42.0-54.0 % Mean Corpuscular Volume 82.0 80.0-94.0 fL Mean Corpuscular Hemoglobin 29.6 25.9-34.0 pg Mean Corpuscular HGB Conc 36.1 29.9-35.2 g/dL Red Cell Distribution Width 12.5 11.0-15.0 % Platelet Count 217 150-450 10 3/uL Mean Platelet Volume 9.8 9.5-13.5 fL Neutrophils Percent Auto 63.1 43.0-75.0 % Lymphocytes Percent Auto 28.0 20.5-60.0 % Monocytes Percent Auto 6.8 1.7-12.0 % Eosinophils Percent Auto 1.2 0.9-7.0 % Basophils Percent Auto 0.7 0.2-2.0 % Immature Granulocytes Pct Auto 0.2 0.0-0.5 % Neutrophils Absolute Auto 3.8 1.4-6.5 10 3/uL Lymphocytes Absolute Auto 1.7 1.2-3.8 10 3/uL Monocytes Absolute Auto 0.4 0.3-0.8 10 3/uL Eosinophils Absolute Auto 0.1 0.0-0.7 10 3/uL Basophils Absolute Auto 0.0 0.0-0.1 10 3/uL Immature Granulocytes Abs Auto 0.01 0.00-0.03 10 3/uL Performing Lab: see note ML - [facility] LB LACTATE or LACTIC ACID Reviewed date:02/03/2025 08:47:31 AM Interpretation: Performing Lab: Notes/Report: [facility] , Lactate/Lactic Acid 0.6 0.4-2.0 mmol/L Performing Lab: see note ML - [facility] LB MAGNESIUM Reviewed date:02/03/2025 08:47:31 AM Interpretation: Performing Lab: Notes/Report: [facility] , Magnesium 2.0 1.8-2.4 mg/dL Performing Lab: see note ML - [facility] LB PROF 14(COMP METB) Reviewed date:02/03/2025 08:47:31 AM Interpretation: Performing Lab: Notes/Report: [facility] , Sodium 141 136-145 mmol/L Potassium 4.7 3.5-5.1 mmol/L Chloride 105 98-107 mmol/L Carbon Dioxide 29.6 21.0-32.0 mmol/L Anion Gap 11.1 Glucose 104 74-106 mg/dL Blood Urea Nitrogen 12.0 7.0-18.0 mg/dL Creatinine 1.07 0.70-1.30 mg/dL Estimated GFR ( Beryl >60 >=60 mL/min/1.73m 2 Estimated GFR (Non- Blanca >60 >=60 mL/min/1.73m 2 BUN Creatinine Ratio 11.2 Calcium 9.6 8.5-10.1 mg/dL Bilirubin Total 0.5 0.2-1.0 mg/dL Aspartate Amino Transferase 23 15-37 U/L Alanine Aminotransferase 35 16-63 U/L Alkaline Phosphatase 126 46-116 U/L Total Protein 7.6 6.4-8.2 g/dL Albumin Level 4.0 3.4-5.0 g/dL Globulin 3.6 Albumin Globulin Ratio 1.1 Performing Lab: see note - [facility] LB Venous Blood Gas Reviewed date:02/03/2025 08:47:31 AM Interpretation: Performing Lab: Notes/Report: [facility] , pH VBG 7.449 7.330-7.430 PCO2 VBG 42.8 40.0-52.0 mmHg Performing Lab: see note - [facility] ECG 12 lead Reviewed date:02/04/2025 10:32:01 AM Interpretation: Performing Lab: Notes/Report: Source Facility: [place] [address] Electrocardiograph Report Signed Patient: COREY LOPEZ MR#: [id number] : 1995 Acct:[id number] Age/Sex: 29 / M ADM Date: 02/02/25 Loc: ER Attending Dr: Ordering Physician: Rico Bernardo Date of Service: 02/02/25 Procedure(s): ECG 12 lead Accession Number(s): [id number] cc: [facility] Test Date: 2025-02-02 Pat Name: COREY LOPEZ Department: Room: - Gender: Male Chief Sales Officer: : 1995 Requested By: 0919 Order Number: [id number] Reading MD: GREG CRAWFORD Measurements Intervals Austin Rate: 71 P: 53 CT: 148 QRS: 65 QRSD: 94 T: 33 QT: 364 QTc: 386 Interpretive Statements 1100 Sinus rhythm INCOMPLETE RIGHT BUNDLE BRANCH BLOCK 9130 borderline ECG Compared to ECG 01/11/2025 15:23:51 No significant change Electronically Signed On 02-04-2025 9:47:56 EDT by GREG CRAWFORD Dictated By: Greg Crawford M.D. Signed By: 02/04/25947 DD/ 57 TD/TT: Php Architect: [place] [address] Electrocardiograph Report Signed Patient: GHADA LOPEZ MR#: [id number] : 1995 Acct:[id number] Age/Sex: 29 / M ADM Date: 02/02/25 Loc: ER Attending Dr: Ordering Physician: Rico Bernardo Date of Service: 02/02/25 Procedure(s): ECG 12 lead Accession Number(s): [id number] cc: [facility] Test Date: 2025-02-02 Pat Name: COREY MICHELLE Department: 98 Room: - Gender: Male Chief Sales Officer: : 1995 Requ ested By: 0919 Order Number: [id number] Reading MD: GREG CRAWFORD Measurements Intervals [place] Rate: 71 P: 53 CT: 148 QRS: 65 QRSD: 94 T: 33 QT: 364 QTc: 386 Interpretive Statements 1100 Sinus rhythm INCOMPLETE RIGHT BUN DLE BRANCH BLOCK 9130 borderline ECG Compared to ECG 01/11/2025 15:23:51 No significant change Electronically Malorie d On 02-04-2025 9:47:56 EDT by GREG CRAWFORD Dictated By: Greg Crawford M.D. Signed By: 02/04/25947 DD/ 57 TD/TT: Php Architect: CBC AUTO DIFF Reviewed date:02/19/2025 08:22:05 AM Interpretation: Performing Lab: Notes/Report: [facility] , White Blood Count 6.1 4.0-11.0 10 3/uL Red Blood Count 5.36 4.70-6.10 10 6/uL Hemoglobin 15.5 14.0-18.0 g/dL Hematocrit 43.6 42.0-54.0 % Mean Corpuscular Volume 81.3 80.0-94.0 fL Mean Corpuscular Hemoglobin 28.9 25.9-34.0 pg Mean Corpuscular HGB Conc 35.6 29.9-35.2 g/dL Red Cell Distribution Width 12.5 11.0-15.0 % Platelet Count 206 150-450 10 3/uL Mean Platelet Volume 9.1 9.5-13.5 fL Neutrophils Percent Auto 56.1 43.0-75.0 % Lymphocytes Percent Auto 34.3 20.5-60.0 % Monocytes Percent Auto 7.4 1.7-12.0 % Eosinophils Percent Auto 1.5 0.9-7.0 % Basophils Percent Auto 0.5 0.2-2.0 % Immature Granulocytes Pct Auto 0.2 0.0-0.5 % Neutrophils Absolute Auto 3.4 1.4-6.5 10 3/uL Lymphocytes Absolute Auto 2.1 1.2-3.8 10 3/uL Monocytes Absolute Auto 0.5 0.3-0.8 10 3/uL Eosinophils Absolute Auto 0.1 0.0-0.7 10 3/uL Basophils Absolute Auto 0.0 0.0-0.1 10 3/uL Immature Granulocytes Abs Auto 0.01 0.00-0.03 10 3/uL Performing Lab: see note ML - [facility] LB CPK Reviewed date:02/19/2025 08:22:05 AM Interpretation: Performing Lab: Notes/Report: [facility] , Creatine Kinase 200 39-308 U/L Performing Lab: see note - [facility] LB PROF 14(COMP METB) Reviewed date:02/19/2025 08:22:05 AM Interpretation: Performing Lab: Notes/Report: [facility] , Sodium 139 136-145 mmol/L Potassium 3.6 3.5-5.1 mmol/L Chloride 101 98-107 mmol/L Carbon Dioxide 27.2 21.0-32.0 mmol/L Anion Gap 14.4 Glucose 100 74-106 mg/dL Blood Urea Nitrogen 14.0 7.0-18.0 mg/dL Creatinine 0.93 0.70-1.30 mg/dL Estimated GFR ( Beryl >60 >=60 mL/min/1.73m 2 Estimated GFR (Non- Blanca >60 >=60 mL/min/1.73m 2 BUN Creatinine Ratio 15.1 Calcium 9.5 8.5-10.1 mg/dL Bilirubin Total 0.4 0.2-1.0 mg/dL Aspartate Amino Transferase 18 15-37 U/L Alanine Aminotransferase 32 16-63 U/L Alkaline Phosphatase 128 46-116 U/L Total Protein 7.8 6.4-8.2 g/dL Albumin Level 4.0 3.4-5.0 g/dL Globulin 3.8 Albumin Globulin Ratio 1.1 Performing Lab: see note - [facility] LB Levetiracetam (Keppra), S Reviewed date:02/08/2025 04:23:57 PM Interpretation: Performing Lab: Notes/Report: [facility] , Levetiracetam (Keppra), S 6.6 10.0-40.0 ug/mL Performed at: [address] [id number] Shot Core Drill Operator Helper: Edgardo Tanner MD, Phone: [phone] Performing Lab: see note [facility] LB Oxcarbazepine (Trileptal),S Reviewed date:02/08/2025 04:23:57 PM Interpretation: Performing Lab: Notes/Report: [facility] , Oxcarbazepine (Trileptal),S 21 10-35 ug/mL This test was developed and its performance characteristics determined by [facility]. It has not been cleared or approved by the Food and Drug Administration. Detection Limit = 1 Performed at: [address] [id number] Shot Core Drill Operator Helper: Edgardo Tanner MD, Phone: [phone] Performing Lab: see note [facility] LAMOTRIGINE Reviewed date:02/08/2025 04:23:57 PM Interpretation: Performing Lab: Notes/Report: [facility] , Lamotrigine (Lamictal), Serum 7.2 2.0-20.0 ug/mL Detection Limit = 1.0 Performed at: [address] [id number] Shot Core Drill Operator Helper: Edgardo Tanner MD, Phone: [phone] Performing Lab: see note [facility] LB Reason For Referral No Information Medications [...] Problem Status W/U Status Risk Notes Problem [id number] Anxiety disorder, unspecified (F41.9) Active confirmed Problem 147534409 Acute pharyngitis, unspecified (J02.9) Active confirmed Problem Renal agenesis and dysgenesis (431902731) Renal agenesis, 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) Active confirmed Problem Gastroesophageal reflux disease (047490562) GERD (gastroesophag eal reflux disease) (K21.9) Active confirmed Problem Elevated liver enzymes level (175540854) Elevated liver enzymes (R74.8) Active confirmed Problem Exercise-induced asthma (69512585) Exercise-induc ed asthma (J45.990) Active confirmed Problem Complex partial epileptic seizure (375903818) Complex partial seizure (G40.209) Active confirmed Problem Recurrent major depression (87527369) Depression, recurrent (F33.9) Active confirmed Problem Severe recurrent major depression without psychotic features (62793180) Major depressive disorder, recurrent episode, severe (F33.2) Active confirmed Problem Seizure (94734337) Seizure (R56.9) Active confirmed Problem Disorder of male genital organ (50978906) Disorder of male genital organs (N50.9) Active confirmed Problem Male infertility (2701531) Male infertility (N46.9) Active confirmed Problem 92589548 Depression, unspecified (F32.A) Active confirmed Vital Signs Blood pressure diastolic 70 mm Hg 10/01/2024 Height 65 in 10/01/2024 Blood pressure systolic 112 mm Hg 10/01/2024 Weight 181 lbs 10/01/2024 BMI 30.12 kg/m2 10/01/2024 Encounters Encounter Location Date Provider Diagnosis [facility] [address] [place] [address] 10/01/2024 Emeli Barber Depression, recurrent F33.9 and [...] Date [employer] [place] [employer] [address] [place] [address] [phone] [id number] Corey Lopez Self - patient is the insured 3 [...]
--- OUTSIDE RECORDS SUMMARY | 2025-03-10 20:30 | XMS_ITS | Encounter Summary ---
Author Organization [facility] Address [address] [place], [place] [id number] Care Team Providers Care Special Weapons And Tactics Officer Name Role Phone Inocencio, Zander Roberts DO Primary Care Provider + Emeli Barber CNP Primary Care Provider + Source Comments In the event this information is protected by the Federal Confidentiality of Alcohol and Drug AbusePatient Records regulations: The Federal rules restrict any use of the information to criminally investigate or prosecute any alcohol or drug abuse patient.[facility] Encounter Details Date Type Department Care Team (Late st Contact Info) Description 01/24/2021 Patient Msg Urology [address] [place], [place] [id number] Domi Scruggs MD [address] [place], [place] [phone] response Social History Tobacco Use Types Packs/Day [...] documented as of this encounter Care Teams Special Weapons And Tactics Officer Relationship Specialty Start Date End Date Zander Painter DO [address] [place] [address] PCP - General Family Medicine 03/29/17 07/16/21 Emeli Barber CNP [address] [place] [address] PCP - General Internal Medicine 07/17/21 documented as of this encounter
--- OUTSIDE RECORDS SUMMARY | 2025-03-10 20:30 | XMS_ITS | Encounter Summary ---
Author Organization [facility] Address [address] [place], [place] [address] Care Team Providers Care Knowledge Architect Name Role Phone Inocencio, Zander Roberts DO Primary Care Provider + Emeli Barber CNP Primary Care Provider + Source Comments In the event this information is protected by the Federal Confidentiality of Alcohol and Drug AbusePatient Records regulations: The Federal rules restrict any use of the information to criminally investigate or prosecute any alcohol or drug abuse patient.[facility] Encounter Details Date Type Department Care Team (Late st Contact Info) Description 06/04/2021 Get Medical Advice Urology [address] [place], [place] [phone] Domi Scruggs MD [address] [place], [place] [phone] Upcoming Appointment Question Social History Tobacco Use [...] N ot on file 01/20/2021 Data from: https://www.neighborhoodatlas.medicine.[facility].edu/. Last address used for calculation Not [...] documented as of this encounter Care Teams Knowledge Architect Relationship Specialty Start Date End Date Zander Painter DO [address] [place] [address] PCP - General Family Medicine 03/29/17 07/16/21 Emeli Barber CNP [address] [place] [address] PCP - General Internal Medicine 07/17/21 documented as of this encounter
--- OUTSIDE RECORDS SUMMARY | 2025-03-10 20:30 | XMS_ITS | CCD ---
Author Organization [facility] Care Team Providers Care Metal Mover Name Role Phone Arti JACINTO Emeli S Primary Care Provider [phone] HANS GRANADO Referring Unavailab ricky CHI EMELI [...] Provider Cynthia Chiela S Primary Care Provider ARTI [...] Unavailable ARTI, EMELI Primary Care Unavailable BRIAN LMA Consulting Unavailable LALO, JOSIAH Attending Unavailable LALO, [...] ARTI, EMELI Primary Care Unavailable MISC, DR GARDENR Admitting Unavailable MISC, DR GARDNER Consulting Unavailable [...] Care Unavailable CHIRRI, CHAVEZ Admitting Unavailable Arti DRILLER HELPER, Emeli S Primary Care Provider Arti JACINTO, Emeli S Primary Care Provider ARTI, EMELI S Primary Care Unavailable DOUG ELLSWORTH Attending Unavailable GIOVANI SANHCEZ Attending Unavailable GIOVANI SANCHEZ Admitting Unavailable ARTI, [...] Care Unavailable DEEP BABB Attending Unavailable ANA GARICA Attending Unavailable SHANDRA HIGGINS Referring Unavailable ARTI, [...] 04/10/17 Status: Ordered take 1 tablet by [facility] once daily lamoTRIgine (LAMICTAL) 200 mg tablet [...] 04/06/19 Status: Ordered take 2 tablets by [facility] twice daily OXcarbazepine (TRILEPTAL) 300 mg tablet [...] Indication of Use: Prophylaxis-DVT/PE polyethylene glycol 3350 22202 mg powder for oral solution (1 source) [...] 02-02-2022 Episodic Other aftercare (1 source) Other assisted (current) drug therapy; Translations: [OTH TREE SURGEON CURRENT DRUG THERAPY] Onset: 06-13-2022 Episodic Other injuries and conditions due to external causes (1 source) Unspecified injury of head, initial encounter; Translations: [UNSPECIFIED INJURY HEAD INITIAL ENC] Onset: 01-02-2022 Episodic Results Test Name Value Interpretation Reference Range Facility Terence 06-02-2024 CNPN Telephone (EPILMN) COREY ALONSO III ([id number]) 1995 M Date Time Provider Department 06/02/24 MINERVA ORTEGA During your visit today, we recorded the following information about you: Minerva Ortega LISW 06/02/2024 4:24 PM Signed ADVICE CLERK received a consult from provider stating patient told them they cannot afford the PNES workbook, and is looking for assistance with this. ADVICE CLERK notes patient had initial assessment with Dr. Garcia and is beginning treatment in June 2024. ADVICE CLERK asked admin to send patient a copy of the workbook after confirming with patient the correct address. Will follow to assure this is sent to patient. Carli Villarreal 06/02/2024 4:38 PM Signed Copy of seizure workbook, mailed to patient home address. Tracking # [id number] Allergies As of Date: 06/02/2024 (No Known [...] Status:Closed by JORDAN MINERVA on 06/02/24 Normal [facility] MRI BRAIN WO IVCONon 024 MRI BRAIN [...] cortical dysplasia, or other neuronal migrational abnormalities. Science Center Display Builder: PSCB Transcribe Date/Time: Feb 18 2024 8:30A Dictated by : VERÓNICA ECHEVARRIA MD This examination was interpreted and the report reviewed and electronically signed by: VERÓNICA ECHEVARRIA MD on Feb 18 2024 8:46AM EST [id number] Normal [facility] CNPNon 02-06-2024 CNPN Telephone (NE93MN) JOMARCOREY Shannon III ([id number]) 1995 M Date Time Provider Department 02/06/24 [...] encounter of 02/06/2024 Forwarded to [facility] [employer] for review/recommendatio n JOSE Garcia Ailis, PA-C [...] Will await instructions Forwarded to [facility] JOSE Garcia Ailis, PA-C 02/06/2024 4:36 PM Signed Per pharmacy, 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 She would not recommend weaning down. Instead, hold tonight's dose and restart on correct dose of 250 mg twice daily tomorrow morning. TAYLOR Kate Elizabeth, RN 02/06/2024 5:00 PM Signed Spoke with patient/friendYina and provided medication recommendations - they verbalize understanding She[employer] message sent per their request Spoke with Kimberley Sanders [facility] pharmacist - advised of LTG dose She requests new prescription for LTG 200 mg tablet Patient will receive corrected packets of LTG on Saturday, 02/09 Forwarded to [employer] for prescription processing JOSE Garcia Ailis, PA-C [...] with patient - he confirms receipt of ShepHert[employer] message - no present medication concerns - [...] Encounter Status:Closed by SKYLA SANCHEZ on [facility] COREY ALON[facility] ([id number]) 1995 M Date Time Provider Department 02/06/24 [...] does not drive Forwarded to [employer] se[employer] for review/recommendatio JOSE Mercado Ailis, PA-C 02/06/2024 [...] Encounter Status:Closed by SKYLA SANCHEZ on 02/06/24 [facility] Telephone (NE50MN) COREY ALONSO III ([id number]) 1995 M Date Time Provider Department 01/31/24 DEEP BABB NE50MN During your visit today, we recorded the following information about you: Nehal Jordan 01/31/2024 12:52 PM Signed General call : Full name of person calling: Corey Alonso III Relationship to patient: self Phone # : [phone] (mobile) Reason for call: Patient wants to [...] by SKYLA SANCHEZ on 01/31/24 [facility] CNOVon 01-29-2024 CNOV Office Visit (NE50MN) COREY ALONSO III ([id number]) 1995 M Date Time Provider Department 01/29/24 3:30 PM DEEP BABB NE50MN During your visit today, we recorded the following information about you: Pulse Blood pressure Weight Height 81/minute 133/82 78.5 kg 1.753 m Deep Babb MD 02/02/2024 10:23 PM Signed [facility] Patient Name: Corey Alonso III Date of : 1995 ESTABLISHED EPILEPSY CLINIC NOTE 01/29/2024 3:30 PM Reason for Visit: Established Patient and Follow Up Clinical Summary: Mr. Alonso is a 28 year old right-handed male seen in [facility]. At today's visit, the [...] testing was not completed); was transferred to [facility]; was treated with IV medication [...] evaluated in several facilities, most recently in [place], where he was told his episodes were [...] neurological histo (more content not included)... Normal [facility] [id number] 01-03-2024 [id number] HNO ID: [id number] Author: CARLOS FERRELL RN Service: ? Author Type: Registered Nurse Type: [id number] Filed: 01/03/2024 06:47 Note Text: Patient's sister arrived to take patient home. Night PA in prior to go over discharge with patient. RN went over discharge instructions, returned home medications from lock box and made sure patient had home belongings together. IV removed and opportunity for questions provided. Normal [facility] CNDSon 01-03-2024 CNDS HNO ID: [id number] Author: GIOVANI SANCHEZ MD, PhD Service: Neurology Adult Epilepsy Author Type: Nurse Practitioner Type: Discharge Summary Filed: 01/03/2024 11:23 Note Text: Attestation signed by Giovani Sanchez MD, PhD at 01/03/2024 11:23 AM Giovani Sanchez MD PhD Staff, Epilepsy Center [facility], [place] DISCHARGE SUMMARY PATIENT NAME: Corey Alonso III [...] year old male who presented to the [facility] EMU on 12/30/2023 for diagnosis. [...] U Bldg 03/05/2024 10:00 AM Doug Ellsworth, PHILANTHROPY OFFICER.DRILLER HELPER NE50MN Mn S Bldg 04/09/2024 9:00 AM Neida Kee, PhD EPILMN Mn S Bldg Please follow up with your Epileptologist. Dr. Deep Babb [address] [place] [address] The patient's risk for 30-day readmission is determined using the following contributing factors: The patient's risk for 30-day readmission is (more content not included)... Normal [facility] SOCIAL WORKon 01-01-2024 SOCIAL WORK HNO ID: [id number] Author: KARLI SANTORO LSW Service: Social Work Author Type: Block Paver Type: Social Work Filed: 01/02/2024 09:42 Note [...] regarding out patient CBT program offered through [facility]. Patient agreeable to follow up as an out patient. SW to continue to follow as needed. SIGNATURE: LAUREN Lujan PATIENT NAME: Corey Alonso III DATE: January 01, 2024 TIME: 4:19 PM PAGER/CONTACT #: [phone] [facility] SOCIAL WORKon 12-31-2023 SOCIAL WORK HNO ID: [id number] Author: KARLI SANTORO LSW Service: Social Work Author Type: Block Paver Type: Social Work Filed: 01/01/2024 09:44 Note [...] mild developmental delay, he was treated for PST SUPERVISOR infection with initial presentation but patient/family unsure [...] reared by his mother and father in [place]. He has one biological sister. Patient identifies [...] very frustrated by this, and being a prosthodontist is his dream job. 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 PSYCHIATRIC HISTORY: Patient [...] voices feeling jealous whenever he sees a prosthodontist, because he wonders why they are able [...] time. COLLAT (more content not included)... Normal [facility] 10OH-Carbazepine SerPl-mCnco n 12-30-2023 10-Hydroxycarbazepine [Mass/Vol] 13.6 ug/mL Normal 3.0-35.0 [facility] Comment on above: Order Comment: Speci men Type: BLOOD SPECIMENOrdering Facility: [facility] Address: [address] [place] [address] Result Comment: This test was developed and its performance characteristics determined by [facility]'s [facility] Pathology [facility] Laboratory Medicine [place] ([facility]). It has not been cleared or approved by the FDA. -[facility] is regulated under CLIA as qualified to perform high-complexity testing. This test is used for clinical purposes. It should not be regarded as investigational or for research. Performed By: #### 6 948-4, 03743-4 ####[facility] LABCLIA [id number] [place] [address] [place] CBC W Auto Differential pane l (Bld)on 12-30-2023 Basophils (Bld) [#/Vol] 0.04 10*3/uL Normal <0.11 [facility] Comment on above: Order Comment: Speci men Type: BLOOD SPECIMEN [facility] Address: [address] [place] [address] Performed By: #### 5 7021-8 #### [facility] CLIA [id number] [address] [place] [address] [place] Basophils/100 WBC (Bld) 0.7 % Normal [facility] Comment on above: Order Comment: Speci men Type: BLOOD SPECIMEN [facility] Address: [address] [place] [address] Performed By: #### 5 7021-8 #### [facility] CLIA [id number] [address] [place] [address] [place] Differential cell count method Nom (Bld) Auto Normal [facility] Comment on above: Order Comment: Speci men Type: BLOOD SPECIMEN [facility] Address: [address] [place] [address] Performed By: #### 5 7021-8 #### [facility] CLIA [id number] [address] [place] [address] [place] Eosinophils (Bld) [#/Vol] 0.07 10*3/uL Normal <0.46 [facility] Comment on above: Order Comment: Speci men Type: BLOOD SPECIMEN [facility] Address: [address] [place] [address] Performed By: #### 5 7021-8 #### [facility] CLIA [id number] [address] [place] [address] [place] Eosinophils/100 WBC (Bld) 1.3 % Normal [facility] Comment on above: Order Comment: Speci men Type: BLOOD SPECIMEN [facility] Address: [address] [place] [address] Performed By: #### 5 7021-8 #### [facility] CLIA [id number] [address] [place] [address] [place] Erythrocyte distribution width (RBC) [Ratio] 12.3 % Normal 11.5-15.0 [facility] Comment on above: Order Comment: Speci men Type: BLOOD SPECIMEN [facility] Address: [address] [place] [address] Performed By: #### 5 7021-8 #### [facility] CLIA [id number] [address] [place] [address] [place] Hematocrit (Bld) [Volume fraction] 44.7 % Normal 39.0-51.0 [facility] Comment on above: Order Comment: Speci men Type: BLOOD SPECIMEN [facility] Address: [address] [place] [address] Performed By: #### 5 7021-8 #### [facility] CLIA [id number] [address] [place] [address] [place] Hemoglobin (Bld) [Mass/Vol] 15.6 g/dL Normal 13.0-17.0 [facility] Comment on above: Order Comment: Speci men Type: BLOOD SPECIMEN [facility] Address: [address] [place] [address] Performed By: #### 5 7021-8 #### [facility] CLIA [id number] [address] [place] [address] [place] Immature granulocytes (Bld) [#/Vol] 10*3/uL Normal <0.10 [facility] Comment on above: Order Comment: Speci men Type: BLOOD SPECIMEN [facility] Address: [address] [place] [address] Performed By: #### 5 7021-8 #### [facility] CLIA [id number] [address] [place] [address] [place] Immature granulocytes/100 WBC (Bld) 0.4 % Normal [facility] Comment on above: Order Comment: Speci men Type: BLOOD SPECIMEN [facility] Address: [address] [place] [address] Performed By: #### 5 7021-8 #### [facility] CLIA [id number] [address] [place] [address] [place] Lymphocytes (Bld) [#/Vol] 1.97 10*3/uL Normal 1.00-4.0 0 [facility] Comment on above: Order Comment: Speci men Type: BLOOD SPECIMEN [facility] Address: [address] [place] [address] Performed By: #### 5 7021-8 #### [facility] CLIA [id number] [address] [id number], [place] [address] [place] Lymphocytes/100 WBC (Bld) 36.1 % Normal [facility] Comment on above: Order Comment: Speci men Type: BLOOD SPECIMEN [facility] Address: [address] [place] [address] Performed By: #### 5 7021-8 #### [facility] CLIA [id number] [address] [place] [address] [place] MCH (RBC) [Entitic mass] 28.6 pg Normal 26.0-34.0 [facility] Comment on above: Order Comment: Speci men Type: BLOOD SPECIMEN [facility] Address: [address] [place] [address] Performed By: #### 5 7021-8 #### [facility] CLIA [id number] [address] [place] [address] [place] MCHC (RBC) [Mass/Vol] 34.9 g/dL Normal 30.5-36.0 [facility] Comment on above: Order Comment: Speci men Type: BLOOD SPECIMEN [facility] Address: [address] [place] [address] Performed By: #### 5 7021-8 #### [facility] CLIA [id number] [address] [place] [address] [place] MCV (RBC) [Entitic vol] 82.0 fL Normal 80.0-100.0 [facility] Comment on above: Order Comment: Speci men Type: BLOOD SPECIMEN [facility] Address: [address] [place] [address] Performed By: #### 5 7021-8 #### [facility] CLIA [id number] [address] [place] [address] [place] Monocytes (Bld) [#/Vol] 0.40 10*3/uL Normal <0.87 [facility] Comment on above: Order Comment: Speci men Type: BLOOD SPECIMEN [facility] Address: [address] [place] [address] Performed By: #### 5 7021-8 #### [facility] CLIA [id number] [address] [place] [address] [place] Monocytes/100 WBC (Bld) 7.3 % Normal [facility] Comment on above: Order Comment: Speci men Type: BLOOD SPECIMEN [facility] Address: [address] [place] [address] Performed By: #### 5 7021-8 #### [facility] CLIA [id number] [address] [place] [address] [place] Neutrophils (Bld) [#/Vol] 2.96 10*3/uL Normal 1.45-7.5 0 [facility] Comment on above: Order Comment: Speci men Type: BLOOD SPECIMEN [facility] Address: [address] [place] [address] Performed By: #### 5 7021-8 #### [facility] CLIA [id number] [address] [place] [address] [place] Neutrophils/100 WBC (Bld) 54.2 % Normal [facility] Comment on above: Order Comment: Speci men Type: BLOOD SPECIMEN [facility] Address: [address] [place] [address] Performed By: #### 5 7021-8 #### [facility] CLIA [id number] [address] [place] [address] [place] Nucleated RBC (Bld) [#/Vol] 10*3/uL Normal <0.01 [facility] Comment on above: Order Comment: Speci men Type: BLOOD SPECIMEN [facility] Address: [address] [place] [address] Performed By: #### 5 7021-8 #### [facility] CLIA [id number] [address] [place] [address] [place] Nucleated RBC/100 WBC (Bld) [Ratio] 0.0 /100 WBC Normal [facility] Comment on above: Order Comment: Speci men Type: BLOOD SPECIMEN [facility] Address: [address] [place] [address] Performed By: #### 5 7021-8 #### [facility] CLIA [id number] [address] [place] [address] [place] Platelet mean volume (Bld) [Entitic vol] 9.6 fL Normal 9.0-12.7 [facility] Comment on above: Order Comment: Speci men Type: BLOOD SPECIMEN [facility] Address: [address] [place] [address] Performed By: #### 5 7021-8 #### [facility] CLIA [id number] [address] [place] [address] [place] Platelets (Bld) [#/Vol] 187 10*3/uL Normal 150-400 [facility] Comment on above: Order Comment: Speci men Type: BLOOD SPECIMEN [facility] Address: [address] [place] [address] Performed By: #### 5 7021-8 #### [facility] CLIA [id number] [address] [place] [address] [place] RBC (Bld) [#/Vol] 5.45 10*6/uL Normal 4.20-6.00 [facility] Comment on above: Order Comment: Speci men Type: BLOOD SPECIMEN [facility] Address: [address] [place] [address] Performed By: #### 5 7021-8 #### [facility] CLIA [id number] [address] [place] [address] [place] WBC (Bld) [#/Vol] 5.46 10*3/uL Normal 3.70-11.00 [facility] Comment on above: Order Comment: Speci men Type: BLOOD SPECIMEN [facility] Address: [address] [place] [address] Performed By: #### 5 7021-8 #### [facility] CLIA [id number] [address] [place] [id number] [facility] CNOVon 12-30-2023 CNOV Office Visit (NE50MN) COREY ALONSO III ([id number]) 1995 M Date Time Provider Department 12/30/23 8:00 AM DEEP BABB NE50MN During your visit today, we recorded the following information about you: Pulse Blood pressure Weight Height 105/minute 148/86 77.1 kg 1.727 m Deep Babb MD 12/30/2023 11:45 PM Signed [facility] [place] [facility] Patient Name: Corey Alonso III Date of : 1995 Referring Provider: Shandra Berman [facility] [place] [address] INITIAL EPILEPSY CLINIC NOTE 12/30/2023 8:00 AM CHIEF COMPLAINT: New Patient HISTORY OF PRESENT ILLNESS Mr. Alonso is a 28 year old right-handed male seen in [facility] for initial [...] testing was not completed); was transferred to [facility]; was treated with IV medication [...] evaluated in several facilities, most recently in [place], where he was told his episodes were [...] No Seizu (more content not included)... Normal [facility] Comprehensive metabolic 2000 panelon 12-30-2023 Albumin [Mass/Vol] 4.3 g/dL Normal 3.9-4.9 [facility] Comment on above: Order Comment: Speci men Type: BLOOD SPECIMENOrdering Facility: [facility] Address: [address] [place] [address] Performed By: #### 1 9123-9, 3016-3, 2777-1, 48587-6 ####[facility] LABIA [id number] [place] [address] [place] ALP [Catalytic activity/Vol] 111 U/L Normal 38-113 [facility] Comment on above: Order Comment: Speci men Type: BLOOD SPECIMENOrdering Facility: [facility] Address: [address] [place] [address] Performed By: #### 1 9123-9, 3016-3, 2777-1, 42459-8 ####[facility] LABCLIA [id number] [place] [address] [place] ALT [Catalytic activity/Vol] 14 U/L Normal 10-54 [facility] Comment on above: Order Comment: Speci men Type: BLOOD SPECIMENOrdering Facility: [facility] Address: [address] [place] [address] Performed By: #### 1 9123-9, 3016-3, 2777-1, 79226-7 ####[facility] LABCLIA [id number] [place] [address] [place] Anion gap [Moles/Vol] 12 mmol/L Normal 9-18 [facility] Comment on above: Order Comment: Speci men Type: BLOOD SPECIMENOrdering Facility: [facility] Address: [address] [place] [address] Performed By: #### 1 9123-9, 3016-3, 2777-1, 70336-2 ####[facility] LABCLIA [id number] [place] [address] [place] AST [Catalytic activity/Vol] 14 U/L Normal 14-40 [facility] Comment on above: Order Comment: Speci men Type: BLOOD SPECIMENOrdering Facility: [facility] Address: [address] [place] [address] Performed By: #### 1 9123-9, 3016-3, 2777-1, 49492-1 ####[facility] LABCLIA [id number] [place] [address] [place] Bilirubin [Mass/Vol] 0.3 mg/dL Normal 0.2-1.3 [facility] Comment on above: Order Comment: Speci men Type: BLOOD SPECIMENOrdering Facility: [facility] Address: [address] [place] [address] Performed By: #### 1 9123-9, 3016-3, 2777-1, 25519-8 ####[facility] LABCLIA [id number] [place] [address] [place] Calcium [Mass/Vol] 9.7 mg/dL Normal 8.5-10.2 [facility] Comment on above: Order Comment: Speci men Type: BLOOD SPECIMENOrdering Facility: [facility] Address: [address] [place] [address] Performed By: #### 1 9123-9, 3016-3, 2777-1, 63105-9 ####[facility] LABCLIA [id number] [place] [address] [place] Chloride [Moles/Vol] 103 mmol/L Normal 97-105 [facility] Comment on above: Order Comment: Speci men Type: BLOOD SPECIMENOrdering Facility: [facility] Address: [address] [place] [address] Performed By: #### 1 9123-9, 3016-3, 2777-1, 51404-7 ####[facility] LABCLIA [id number] [place] [address] [place] CO2 [Moles/Vol] 24 mmol/L Normal 22-30 [facility] [place] Comment on above: Order Comment: Speci men Type: BLOOD SPECIMENOrdering Facility: [facility] Address: [address] [place] [address] Performed By: #### 1 9123-9, 3016-3, 2777-1, 73815-6 ####[facility] LABCLIA [id number] [place] [address] [place] Creatinine [Mass/Vol] 1.04 mg/dL Normal 0.73-1.22 [facility] Comment on above: Order Comment: Speci men Type: BLOOD SPECIMENOrdering Facility: [facility] Address: [address] [place] [address] Performed By: #### 1 9123-9, 3016-3, 2777-1, 43975-7 ####[facility] LABCLIA [id number] [place] [address] [place] Creatinine and Glomerular filtration rate.predicted panel (S/P/Bld) 101 mL/min/1.73m??? Normal >=60 [facility] Comment on above: Order Comment: Speci men Type: BLOOD SPECIMENOrdering Facility: [facility] Address: [address] [place] [address] Result Comment: Michelle mated Glomerular Filtration Rate [...] Performed By: #### 1 9123-9, 3016-3, 2777-, 65370-0 ####[facility] LABIA [id number] [place] [address] [place] Glucose [Mass/Vol] 107 mg/dL High 74-99 [facility] Comment on above: Order Comment: Ngoc liu Type: BLOOD SPECIMENOrdering Facility: [facility] Address: [address] [place] [address] Result Comment: The [place] Diabetes Association (ADA) provides guidance for cutoff [...] Standards of Medical Care in Diabetes 2016, [place] Diabetes Association. Diabetes Care. 2016.39(Suppl 1). Performed By: #### 1 9123-9, 3016-3, 2777-, 91301-2 ####[facility] LABCLIA [id number] [place] [id number] [place] Potassium [Moles/Vol] 3.9 mmol/L Normal 3.7-5.1 [facility] Comment on above: Order Comment: Ngoc liu Type: BLOOD SPECIMENOrdering Facility: [facility] Address: [address] [place], [place] [address] Performed By: #### 1 9123-9, 3016-3, 2777-1, 18729-7 ####[facility] LABCLIA [id number] [address] [address] [place] Protein [Mass/Vol] 6.7 g/dL Normal 6.3-8.0 [facility] Comment on above: Order Comment: Speci men Type: BLOOD SPECIMENOrdering Facility: [facility] Address: [address] [place] [address] Performed By: #### 1 9123-9, 3016-3, 2777-, 18641-2 ####[facility] LABIA [id number] [place] [address] [place] Sodium [Moles/Vol] 139 mmol/L Normal 136-144 [facility] Comment on above: Order Comment: Speci men Type: BLOOD SPECIMENOrdering Facility: [facility] Address: [address] [place] [address] Performed By: #### 1 9123-9, 3016-3, 2777-1, 81294-4 ####[facility] LABIA [id number] [place] [id number] [place] Urea nitrogen [Mass/Vol] 13 mg/dL Normal 9-24 [facility] Comment on above: Order Comment: Speci men Type: BLOOD SPECIMENOrdering Facility: [facility] Address: [address] [place] [address] Performed By: #### 1 9123-9, 3016-3, 2777-1, 60277-6 ####[facility] LABIA [id number] [place] [id number] [place] HISTORY PHYSICALon HISTORY PHYSICAL HNO ID: [id number] Author: GIOVANI SANCHEZ MD, PhD Service: Neurology Adult Epilepsy Author Type: Physician Type: H&P Filed: 12/31/2023 12:28 Note Text: NEURO EPILEPSY ADMIT NOTE SERVICE DATE: 12/30/2023 SERVICE TIME: 10:14 AM NIGHT AND WEEKEND COVERAGE: After 5 pm and over the weekends, please page [phone] to contact the epilepsy resident/fellow/prov ider pest control applicator ATTENDING PHYSICIAN: Dr. Giovani Sanchez [facility] UNIT: H71 - Adult Epilepsy [...] mild developmental delay, he was treated for PST SUPERVISOR infection with initial presentation but patient/family unsure [...] testing was not completed); was transferred to [facility]; was treated with IV medication [...] evaluated in several facilities, most recently in [place], where he was told his episodes were [...] were excerpte (more content not included)... Normal [facility] Magn[facility] Magnesium [Mass/Vol] 2.0 mg/dL Normal 1.7-2.3 [facility] Comment on above: Order Comment: Ngoc liu Type: BLOOD SPECIMENOrdering Facility: [facility] Address: [address] [place] [address] [place] [address] Performed By: #### 1 9123-9, 3016-3, 2777-1, 26136-0 ####[facility] LABCLIA [id number] [id number] [place] [address] NURSING PROGon 12-30-2023 NURSING PROG HNO ID: [id number] Author: MICAH PEÑA RN Service: ? Author Type: Registered Nurse Type: Nursing Progress Note Filed: 12/30/2023 12:15 Note Text: Pt admitted to [facility], oriented to room/unit. Safety and sz precautions initiated. Will continue to monitor and provide support. Normal [facility] PT panel Coag (PPP)on 2023 INR Coag (PPP) [Relative time] 1.1 {INR} Normal 0.9-1.3 [facility] Comment on above: Order Comment: Ngoc liu Type: BLOOD SPECIMENOrdering Facility: [facility] Address: [address] [place], [place] [address] [address] Result Comment: Idania min K Antagonist (VKA) Therapeutic Range: INR 2 to 3 (Target INR of 2.5) Note: For patients treated with VKA drugs, such as warfarin, the [place] College of Chest Physicians 2012 Guideline recommends [...] Chest 2012, 141:7S-47S Nickie SALCEDO et al. [facility] 2017, 70: 252-289 Performed By: #### 3 4528-0, 92580-0 ####[facility] LABIA [id number] [place] [address] [place] PT Coag (PPP) [Time] 11.4 s Normal 9.7-13.0 [facility] Comment on above: Order Comment: Speci men Type: BLOOD SPECIMENOrdering Facility: [facility] Address: [address] [place] [address] Performed By: #### 3 4528-0, 44320-9 ####[facility] [id number] [place] [address] [place] Phosphate SerPl-mCncon 12-29 Phosphate [Mass/Vol] 4.1 mg/dL Normal 2.7-4.8 [facility] Comment on above: Order Comment: Speci men Type: BLOOD SPECIMENOrdering Facility: [facility] Address: [address] [place] [address] Performed By: #### 1 9123-9, 3016-3, 2777-1, 41286-5 ####[facility] [id number] [place] [address] [place] TOXICOLOGY SCREEN, ROUTINE U RINEon 12-30-2023 Amphetamines Confirm (U) [Mass/Vol] Negative Normal Negative [facility] Comment on above: Order Comment: Speci men Type: URINE SPECIMENOrdering Facility: [facility] Address: [address] [place] [address] Result Comment: Cuto ff threshold at 1000 ng/mL. Performed By: #### U TOX2 ####[facility] LAB[facility] [id number] [place] [address] [place] BARBITURATES, URINE Negative Normal Negative [facility] Comment on above: Order Comment: Speci men Type: URINE SPECIMENOrdering Facility: [facility] Address: [address] [place] [address] Result Comment: Cuto ff threshold at 200 ng/mL. Performed By: #### U TOX2 ####[facility] LABCLIA [id number] [place] [address] [place] BENZODIAZEPINES, UR Negative Normal Negative [facility] Comment on above: Order Comment: Speci men Type: URINE SPECIMENOrdering Facility: [facility] Address: [address] [place] [address] Result Comment: Cuto ff threshold at 200 ng/mL. Performed By: #### U TOX2 ####[facility] LABIA [id number] [place] [address] [place] Cannabinoids Screen Ql (U) Negative Normal Negative [facility] Comment on above: Order Comment: Speci men Type: URINE SPECIMENOrdering Facility: [facility] Address: [address] [place] [address] Result Comment: Cuto ff threshold at 50 ng/mL. Performed By: #### U TOX2 ####[facility] LABIA [id number] [place] [address] [place] Cocaine Ql (U) Negative Normal Negative [facility] Comment on above: Order Comment: Speci men Type: URINE SPECIMENOrdering Facility: [facility] Address: [address] [place] [address] Result Comment: Cuto ff threshold at 300 ng/mL. Performed By: #### U TOX2 ####[facility] LABCLIA [id number] [place] [address] [place] Ethanol (U) [Mass/Vol] <11 Normal <11 [facility] Comment on above: Order Comment: Speci men Type: URINE SPECIMENOrdering Facility: [facility] Address: [address] [place] [address] Performed By: #### U TOX2 ####[facility] LABCLIA [id number] [place] [address] [place] Opiates Screen Ql (U) Negative Normal Negative [facility] Comment on above: Order Comment: Speci men Type: URINE SPECIMENOrdering Facility: [facility] Address: [address] [place] [address] Result Comment: Cuto ff threshold at 300 ng/mL. Performed By: #### U TOX2 ####[facility] LABCLIA [id number] [place] [address] [place] oxyCODONE cutoff Screen (U) [Mass/Vol] Negative Normal Negative [facility] Comment on above: Order Comment: Speci men Type: URINE SPECIMENOrdering Facility: [facility] Address: [address] [place] [address] Result Comment: Cuto ff threshold at 100 ng/mL. Performed By: #### U TOX2 ####[facility] LABCLIA [id number] [place] [address] [place] Phencyclidine Ql (U) Positive Abnormal Negative [facility] Comment on above: Order Comment: Speci men Type: URINE SPECIMENOrdering Facility: [facility] Address: [address] [place] [address] Result Comment: Cuto ff threshold at 25 ng/mL. Performed By: #### U TOX2 ####[facility] LABCLIA [id number] [place] [address] [place] TSH SerPl-aCncon 12-30-2023 TSH Qn 1.600 m[IU]/L Normal 0.270-4.200 [facility] Comment on above: Order Comment: Speci men Type: BLOOD SPECIMENOrdering Facility: [facility] Address: [address] [place] [address] Performed By: #### 1 9123-9, 3016-3, 2777-1, 11493-4 ####[facility] LABCLIA [id number] [place] [address] [place] aPTT PPPon 12-30-2023 aPTT Coag (PPP) [Time] 31.1 s Normal 23.0-32.4 [facility] Comment on above: Order Comment: Speci men Type: BLOOD SPECIMENOrdering Facility: [facility] Address: [address] [place] [address] Performed By: #### 3 4528-0, 90315-5 ####[facility] LABIA [id number] [address] OF [facility] lamoTRIgine SerPl-mCncon lamoTRIgine [Mass/Vol] 7.6 ug/mL Normal 1.0-13.0 [facility] Comment on above: Order Comment: Speci men Type: BLOOD SPECIMENOrdering Facility: [facility] Address: [address] [place] [address] Result Comment: This test was developed and its performance characteristics determined by [facility]'s [facility] Pathology and Laboratory Medicine [place] (RTPLMI). It has not been cleared or approved by the FDA. RT-PLAK is regulated under CLIA as qualified to perform high-complexity testing. This test is used for clinical purposes. It should not be regarded as investigational or for research. Performed By: #### 6 948-4, 83632-8 ####[facility] LABCLIA [id number] [address] [place] CNCONon 11-12-2023 CNCON Consults (NE50MN) COREY ALONSO III ([id number]) 1995 Date Time Provider Department 11/12/23 KELLY SANDOVAL NE50MN During your visit today, we recorded the following information about you: Shandra Berman APRN.DRILLER HELPER 11/13/2023 8:26 AM Signed [facility] Review of Records Patient: Corey Alonso III Address: [address] [place] [address] Impression: Review of records for Corey Alonso [...] Levetiracetam PMH: asthma, anxiety, depression PRIOR EVALUATIONS: [facility] [address] [place] [address] EEG ([facility], 11/28/2021): Normal EEG with no focal slowing or epileptiform activity. VEEG ([facility], 08/07/2022): During this day of recording [...] for VEEG monitoring, diagnostic evaluation Location: [facility] - Visit with Dr. Greenberg prior to admission - Additional testing to be considered by epilepsy clinicians Signed: Shandra Berman APRN.DRILLER HELPER November 12, [address] Sandoval for review and recommendations. MD Recommendations (as discussed with Dr. Sandoval): - Please proceed with the above plan. ===== Please route this encounter to the EMU Scheduling Pool ( P EMU ) or PMU Scheduling Pool ( P PMU ) through LOS AND Follow up ===== PHASE 1.0 AND 1.5 ORDER SYNOPSIS Patient: Corey Alonso III ([id number]) Best contact number: [phone] Insurance: Payor: [place] / Plan: [facility] MEDICAID / Product Type: Medicaid / Scheduling Team: Please call for adult patients: Tigist Ruano ([phone]) Sarah Solo ([phone]) Omega Ramos ([phone]) Ivory Wan([phone]) Eulalia Mittal([phone] ) Please call for pediatric patients: Ivory Wan ([phone]) Tigist Ruano ([phone]) Sarah Solo ([phone]) Yarielmarkmariangel Ramos ([phone]),Luther Mittal([phone] ) 11/13/2023 -- Admission Type EMU Adult Number of Days requested [address] [place] [address] Admit Priority Routine 11/13/2023 PURPOSE Patient Being [...] Diagnosis:Seizure (HCC) [R56.9] Order(s):EPIL EEG LEAD PLACEMENT [4506299] Order #: [id number]: 1 FUTURE EPIL VEEG ADMIT TO EMU/PMU [[id number]] Order #: [id number]: 1 Prescriptions as of 11/13/2023 - OXcarbazepine (TRILEPTAL) 300 mg tablet Take 300 mg by mouth twice daily. - lamoTRIgine (LAMICTAL) 200 mg tablet Take 200 mg by mouth once daily. Problem List As Of (more content not included)... Normal [facility] Terence 11-12-2023 GEGEN Telephone (NE50MN) COREY ALONSO III ([id number]) 1995 M Date Time Provider Department 11/12/23 KELLY SANDOVAL NE50MN During your visit today, we recorded the following information about you: Eulalia Mittal 11/12/2023 3:01 PM Signed [facility] Initial Intake Interview November 12, 2023 2:53 PM Caller: Corey Relationship to pt: Self ===== Patient name: Corey Alonso III Age: [age] year old Address: [address] [place] [address] (home) Insurance: Payor: [place] MEDICAID / Plan: [facility] MEDICAID / Product Type: Medicaid / Referred by: Self (word of mouth) Referring to: Dr. Greenberg Reason for Evaluation: further evaluation and treatment Previously evaluated at: [place] [address] [place] [address] Fax: N/A ===== Age AND date of [...] or No Date Facility EEG Yes 2021 [facility] Video EEG Yes 2021 [facility] MRI brain Yes 2021 [facility] CT brain No fMRI brain No [...] Status:Closed by EULALIA MITTAL on 11/12/23 Normal [facility] Consent for Treatmenton Consent for Treatment [id number] #1.00CD:127 Normal [facility] Discharge Instructionson Discharge Instructions [id number] 1#1.00CD:127 Normal [facility] ED Clinical Summaryon 2022 ED Clinical Summary [place] [address] ED Clinical Summary Person Information Name: COREY ALONSO III [facility] Age: 27 Years : 1995 Sex: Male Language: Venezuelan PCP: EMELI CHI CNP Marital Status: Phone: [phone] Visit Id: Visit Reason: Wound reevaluation with [...] 17:04:18 03/31/2023 17:04:18 03/31/2023 17:04:18 ADDRESS: [address] [place] [address] [phone] PHYS DOC NOTES: MEDICAL INFORMATION: Prescriptions Given: Medications to Continue with No Changes Other Medications lamotrigine (lamotrigine 100 mg oral tablet) 2 times a day. oxcarbazepine (Trileptal) By Mouth 2 times a day. PATIENT EDUCATION INFORMATION: Instructions: Wound Dehiscence Follow up: With: Address: When: EMELI CHI [facility] [place] [place] [address] [phone] Business (1) In 3 days 04/03/2023 Comments: [...] are removed. DIAGNOSIS: Wound dehiscence Normal [facility] ED Note-Physicianon 03-31-20 ED Note-Physician Basic Information Time Seen: Ramón Carrizales DOCassandra 03/31/2023 16:48 Chief Complaint Had stitches at [place] 2 days ago on L thumb. States [...] EDT [address] [place] [address] [phone] Business (1) Additional Instructions: Call the office [...] Diagnostic Results No qualifying data available. Normal [facility] Comment on above: Result Comment: Elec [...] these instructions at home: Medicines ? Take fusq-jne-feheeoo and prescription medicines only as told by [...] and water are not available, use hand forensic nurse. ? Gently wash the wound area with [...] Revised: 12 (more content not included)... Normal [facility] ED Patient Summaryon 023 ED Patient Summary [address] [address] Patient Discharge Instructions Person Information Name: COREY ALONSO III Age: 27 Years Arrival Date: 03/31/2023 16:41:41 Discharge Diagnosis: Wound dehiscence Primary Care Physician: EMELI CHI CNP Provider Information Primary Provider: Ramón Carrizales DO Advanced Baby Attendant:None The exam and treatment you received in the Emergency Department were for an urgent problem and are not intended as complete care. It is important that you follow up with a doctor, nurse practitioner, or physician?s assistant case manager for ongoing care. If your symptoms become [...] Address: When: EMELI ARTI [address] [place] [address] [phone] Business (1) In 3 days 04/03/2023 Comments: [...] opioids can be used to help relieve ubzcorxi-dd-rswwgp pain and are often prescribed following a [...] ? Stor (more content not included)... Normal [facility] EMS Documentationon 10-10-19 EMS Documentation Please click on link to see report pdfCD:[id number] dIhHSQtRie9ZXJhYgABE qKflZGBarS03ogNEmvPI tOOJ2QhCfXDRiQOR5EgU wIFIgMiAw LFRsLLT5HOIyQRGbGGD5 HWLoNBOkN8Hkx4ZKe9tw PO1cGKNmCXL7DFCrTKR3 CCFdMN9jA3AdmWBg MTAwNCAwIFIvSUQgMTAw XJCaJTIlLETflCWIg2nk JT5lQZXyBZK8JFBoEMU2 HXHtVE1fQYojGS2n B6FjjqUztZY0LkSlNUVX D6Oba973thGrfui2A8Uu lG9tH7SaU3X7PG0KHoEo HNi5GOXcXy3+L0Zv brW3UL8YCFZbEZsuNEQo Ee2KNVBbAVc5YALnKz4X CGLmXRreQDPtDp2MUNHp DUIoKNVPD4MTJYXj NSAwIFI+Ps5Tdl4sO3D3 Ot5JADWcWGL4pX7wNLl6 C5O1YYDwEGRpDMYkHPIA F7gTBipfI6SbQMQ0 NiAwIFI+Nx9Cv1TyoHSw OG6OuAI0E1GHUXJzefVn EPVdB1O5jLAoKBTfEV2Q UHQuF0F+PgplbmRv QakICcZtJE4grku5EG7M HA3vtLtbScU0KLM+PnN0 nxJdoYisX1VhGJUrHRNw NUEicfwyFDR1MYKe SNsuZuv1QI31XNNgkiGP XbptOTKeY69XYSUdRbh1 DXS4YyLfZS11JHIhFAsc PjZgGCQ9ZH5fZPHs Mll7SASkKww7VWNnSfOC ESr5AbR9UCD6JR9oDQYr Pjx1XXZqByy1SBWhPkZX EPFySjq9EvW1FCQ8 QaYtCV77CIJzSTraYhRx KWX2FBC5LbEeMCEmCySk twKHSjyqCWO7SLVjKvGk PI10BYMrHJUlpmVK Oyl2OYHwCnFlVkv3KiA3 BORdEvKlMQW9ZADlFlHS FR43CEvgEMVrsghjTX15 VDY6GGFsTRHwTKqc MjUgLTEyIHJlCmYKMCAg h5OzTnGuKbb5ULJ4Hk1w NSAyODcuMjUgLTAuNzUg cmUKZgowLjkxOCAg a0KjXrD6XHQ5SMEoRTCg ODcuMjUgLTEyIHJlCmYK LSOjd4PpJyG2MLV9EFCf BhPqRco1XaA6JL9w Wtr9ZTAdOzZUSBBoNxMz LdZ9HVX1FiGaQX95JOSs EEhrQkKbBQW3GT82FAF2 MrTkYP06FMCuVXfe YqRqOND5XC3pKITwSxg4 YT49ND85SMHkSeITZHx8 KwC8FCA1JT4hYFCwDmy1 TK54FO43EXZhYmDT PA26FRboVQWkiqofNN99 HCS0VOafVCN7WlSmISGt NPKfflMXPhxaXYVnY67H VSMmHtFjZgF8SpC1 UKL1GL47OH7kChs9PMMw SpGZUYY7JmGuUjG6VHYl Bx8iHSTsKH62MTWfCNno VqA5Vp45SDR3ZS0w NSAxMTYuMjUgLTAuNzUg iiFLGhg1VdgrUJR0WhAu JB44FNGuXDVlCKGuZBjp QdA3ScG4LwHcCX95 NSAtNTUuNSByZQpmCjAu YNT5GVNjA16GYXW3BwG1 XBMiSF4bIEIzOILvBiAc LTEyIHJlCmYKMCAg z8TxKhL7EH6wFFP2EsZg JJX4Pok6EI9sEzv2YBVc ZmLWOGZeOZyeTtw4XER0 RnErVY49IOBiXEdv DiXoZCVgWsR5MeGcMVUx MeUmwsRUNpjaEST6PfVa UtDkKW81HPLfEcWsKWDg SIbiDaR3JW9hWUL1 TgRcUjAgMK67XWZuLnYn JASxDDcuYxVcEEW0KJWk E08JXYIzFxGqHDbrSWM7 RY25OK8tAlGyRNad QeLwJORxazkvQH16OOF8 TItxNyEaZJl8IxSdUEUr XvMuhhTABnwmEED1Uaiy JwEhSJe6VV9xNnl3 IHJlCmYKMTAgNDUzIDU3 YzLkSE51ARTbHGsxGrSn HZTmBn3yXPWlZkd0WM68 RIIqUQpwCsJ3TH8e BGJ2ErkvLaSoFT19MAVk NzUgcmUKZgowLjkxOCAg q2VzCgTbBdf2YQNqAs68 VVO3VR44IY0tLdPc BQbjKsHaZTFrvaluMD00 TRD9NLNyHnUaUXt1HqLv LTAuNzUgcmUKZgoxMCA0 OjCxWVV4UpSsEOAf NzUgcmUKZgoxMCAzODcu HbEtYLh4JC4gBed1MPKa JcFASYHkCZGbOkVrGJ75 NSAtNDYuNSByZQpm HhI9BY5sDUW6BzReUVPb Ksq9EN37Iv38ZISzOnCC IQ63MKeoBCKcepvjND95 FXV2QpByLuRuLKh1 LjUgLTEyIHJlCmYKMCAg h5BrLdVqMjc2OQLwPO21 XUP8NL52JH4aBct4BGFw WjYOXH21CEndTASy bgoxNiAzNzcuMjUgNTYz UeC2JF4bVQ66ZDLgXcFJ MYBuv8ArJwM9NFL3Wr17 MUYzVz01SFAmViSr NzUgcmUKZgowLjkxOCAg i6XrZuD4IDZ7Sl68SFNk Fq99EITyHxPiWqBbvnCL FdycEGUzW13QLYKo QaIpVwR6Owq4XAM7EqRa LTEwLjUgcmUKZgowLjkx ECFdu9NlOiWcBkf2OYR4 Wm43MLK1ZE10LL4o DP23KVUeJpYSKZKeo2Zi JyJqIS3bWAUuZcQlZgJh MjAuMjUgLTEwLjUgcmUK TywcNjowZEFdz4Cv QmZlGB8aKBWwRgSkBoDc MjAuMjUgLTEwLjUgcmUK NnliPQJaH22MAVIbDrQw BbF2Mvx3ZGZ2JnTg LTEwLjUgcmUKZgowLjkx JUOqy3TzGeOrEM15ZAR6 Km47PDY1XC58EE2vXB64 ZQYaPnPNBMUiu1Zg WtJ7JYRoHpOrSpYrAjne NSAtMTAuNSByZQpmCjAu XIR3HTWwY46IYUdaVZS2 Ex81IKPrAY09KL4m MG71FHLwUdFHGZMfi9Dn QnYqMT82YPF7Xf14RUV5 MiAtMTAuNSByZQpmCjAu WCQ1IGYtS14PXnZ4 VvGjLkD8Bfq3GZZwFY7f XX16INRwTyYWKCZvl0Nl PzA1MH98OZM6Cr67BQRt MY11TJ5oHR99TCRm KgTLHE22BJdcOYOankwt NTEuNSAzNjYuNzUgMjUu NSAtMTAuNSByZQpmCjEg IHNjbgoyNzcgMzY2 Uhd7QZWkNd4nZACqJPLy JWIoSTnqDhBhLWV9IEJr W78DBys3QAG1Cf50VHFu MTYuMjUgLTEwLjUg knGYJwedHQZfP15PDkbh BzX5AGG3Qu15PGXwJS19 KR7mVZ41PDXaFjXQPB86 MTggIHNjbgozOTMu WcBlXjJ7Nwi9GAB5WnDv LTEwLjUgcmUKZgoxICBz E62WDVGbOrn8GXB8Uf51 BJV3CiMqNJQuIUXn BRiiSmLlTMM9ZAWbW52V TBMsMwt9YLA9Mv80TWM2 MyAtMTAuNSByZQpmCjEg HJGnxyj5WFPkSeYc AqW9Rvm2ILO2RmPbIJGg LjUgcmUKZgowLjkxOCAg r1LmGlN6SV97EULyZpTv NzUgMjguNSAtMTAu NSByZQpmCjEgIHNjbgo1 NEUqZcKaCrO4Gpg4BUVr LjUgLTEwLjUgcmUKZgow SqifOYRgv6AwJtRp Nd7nMDAiHaTqUiRzYsZv NSAtMTAuNSByZQpmCjEg KUEakqj5ASQpPxXcKlG9 Vlx4WHH9GeAhKYUw LjUgcmUKZgowLjkxOCAg p5DwYlT0FY49VSHbGfKq NzUgMjUuNSAtMTAuNSBy ZQpmCjEgIHNjbgo1 AaVrJsCbExX7Wpc8MCab LTEwLjUgcmUKZgowLjkx MPKxd2PzZrX0OV0pLOCk NjYuNzUgOSAtMTAu NSByZQpmCjEgIHNjbgo1 Yw71ORGuYDHqVlCxLMzi NSAtMjAuMjUgcmUKZgow NndjTZRvi4HqBoNv Ihz4WYA4Un9tSCY0NV02 CN3iEP1aKPYrNLhbPgPc IHNjbgoxMTEuMjUgMzU2 MlU0OJIhJtK3RB8v PL8vODNhBAedBgXcPUN6 EGFtG03LTMWqPyP2CPG4 Ux4gFHPkHJ0pFKOlOsDk MjUgcmUKZgoxICBz A71AOGJzIkYwRyZ8UuH0 IHI0CjMeEIZdXnG1XNWe HzPDLV95YTvpZADbyttf MzEuNSAzNTYuMjUg NDkuNSAtMjAuMjUgcmUK CegyINGuY45CCFftZIK6 Rm3hNFRvNI59PL7dFU7a NSByZQpmCjAuOTE4 QCCqB23VONviAOQ5Il0z TCXnHI83JJ6qJU0dBSRv ZQpmCjEgIHNjbgoyMDku NSAzNTYuMjUgNDIg LNZlJwZ7EJXtTvGNLC46 MTggIHNjbgoyMDkuNSAz NTYuMjUgNDIgLTIwLjI1 WNWgDlCRXMFao5Lo TuP5AH82FCV2Zu3bWFUj GP44QO8nTJ5oKOVeRVxy QnHvHUU9MCXxH64PGjFa JyMrAqW2UlJ3BJI0 TnIaBRHqOsE8GPMgOdXT LWDso2YiOwI6OjKpTGPr KqWsSVD6TdF7JR3nWQ3j NSByZQpmCjAuOTE4 XALgZ54VCbk9EKB1Op9j NSAxMTYuMjUgLTIwLjI1 DLXjMzGDEFXxn4IyKzW8 Up5uEKRdDWFzOtDu MjguNSAtMjAuMjUgcmUK WorzYpjjOXNqc0ZtYhX0 Mk1kOXWxLYRxVeUpWytk NSAtMjAuMjUgcmUK LesgTGAxP69VDOCrNwc0 BCJ3Gu2wSBF5WD74OJ0t FD9wZBOgAGuiHfKiSLM8 CREwO27CBDPtSyi9 DSB9Fr0jKQO7KF11CY4p KM6aABVkWVdpSdQkZBGw uuo8KRTjQxRvZnT7VhV5 XPR1QH1fPI0gGEZz YZvrGwLgLTO8EWScR75P CRDtBwX4HLS1Hs5uBAP0 NiAtMjAuMjUg (more content not included)... [facility] Documentationon 10-09-19 23 EMS Documentation Please click on link to see report pdfCD:[id number] xLjQNCiX5+prnDQolQUJ GvNZaZPAgUkL5SOntDxA jUE7fsm9RHQjUL3BgLSQ eGCX7Cr7N OLwgVTj0JMImKE8BU0vd BPfhGFE3Gy2XxS8yYKKw taKbTVQGZ90uIbqgFdMo NQovVCAxODAzNDgK Fg6xLYQjRIFyIQXsXWEs ICAgICAgICAgICAgICAg ICAgICAgICAgICAgICAg ICAgICAgICAgICAg ICAgICAgICAgICAgICAg ICAgICAgDQplbmRvYmoN Lx6EiSIvHf7GLbHyCyHG CjAwMDAwMDAwMzIg GKIdVFAptf7WTWBvISLm QHG5QWRlSHBcHRBjBXih VZPdDPAkOPg6KEAsMUAz PD8ONcMrFEVpDUW0 TEEhZTGhFIYogh3RGACm MDAwMTkzNSAwMDAwMCBu XEnhWIVmIJPrNYc3WBTf THElPH9ARaSnZVXl HYHrDfZzLPFdQWQjlj5F MDAwMDAwMjMxNiAwMDAw MCBuDQowMDAwMDAyNDAw UQCrZJOlIJ8DUvUe WVMoVVO5KVgsPERtADQc vr5KFWQeBTJwCapqBGZv MDAwMCBuDQowMDAwMDAz DHZ3EIWyAFIkWE0D BqNkCVJlNSG7EMDbMRHb PREyha4HXLSoGHPaSiF5 OCAwMDAwMCBuDQowMDAw OQZmWYD9BPGrPNWw UH2YUhNuVRIdUELmVCYi MUIxWQMbdv2VUVHhMZWg NDQzOSAwMDAwMCBuDQow CEBdRNZ6TnOmILQh GDXkDJ4YGbWfEFItSKW1 FRxdOLYqDFExqx3ECETk MDAwNTExMSAwMDAwMCBu LDjsLTJoQWL3KAEm EMDvYVFaGZ4WEhNdLXHp TUZ1NxqcPLRkMQSqnh8K MDAwMDAwOTYzOCAwMDAw MCBuDQowMDAwMDUw AyC8MKNtRQLeLM9XVgUg MDAwODgyNDYgMDAwMDAg tk6FuQFlvPamdw0ZYXnI Z2mSQIc5MGjNYazq KZDnKbK5VaXxUDlxLGAr LIT7XhM8KdJTGCW+Cjwz YsNBEQS7UoICPODwLAY7 WecyMRVOZPVIM0J9 BQAMSC0qXl6VrcY7ALC9 LWKeUficGi2awGOnLfKu VDWBV2PpbjMoUKtKV0Lt fVKaPAIbP6XAAUX7 Kz50SiybdHiXGKO6ORGZ QRnvXG0ISnsVCdZzVPrb Ye89W5XMo2J7NuJmR6HL rPtJlfLRPOxrZ5zG aYJ7j9svrQwJoKXReStn OGdJcndPalFSQUlqUHNX rJ85tckGS0AkGYh2Q0BZ Wm6JSKcdXuIqoX7S uRzyIVW5dC3uGMAWEFvP WizvMR1XHEJIRIa4SKt+ PiAgICAgICAgICAgICAg ICAgICAgICAgICAg ICAgICAgICAgICAgICAg ICAgICAgICAgICAgICAg ICAgICAgICAgICAgICAg ICAgICAgICAgICAg ICAgICAgICAgICAgICAg ICAgICAgICAgICAgICAg ICAgICAgICAgICAgICAg ICAgICAgICAgICAg ICAgICAgICAgICAgICAg ICAgICAgICAgICAgICAg ICAgICAgICAgICAgICAg ICAgICAgICAgICAg ICAgICAgICAgICAgICAg ICAgICAgICAgICAgICAg ICAgICAgICAgICAgICAg ICAgICAgICAgICAg ICAgICAgICAgICAgICAg ICAgICAgICAgICAgICAg ICAgICAgICAgICAgICAg ICAgICAgICAgICAg ICAgICAgICAgICAgICAg ICAgICAgICAgICAgICAg ICAgICAgICAgICAgICAg ICAgICAgICAgICAg ICAgICAgICAgICAgICAg ICAgICAgICAgICAgICAg ICAgICAgICAgICAgICAg ICAgICAgICAgICAg SK6Yc2WfzeK2lkLfEEzx VCobIQVCDc7BFRpcTuUk ED1iik7CWWeOE07ppBSt YXRhIDIxIDAgUgov H3GfbaYddEpvleKlTaNe FVXUBk9AgOHYCIhoJ6S8 yTsaUDVpGPquSGRXOl5R MJkoKG9tOBMyPQQf Ir2bXOryJFCeIXFyXfAk TWPMAt4RfMSiMD6TFSGs oD9hYe0+DQplbmRvYmoN Is3WArPlBNJxDdlV Duh5Om3RvLx2MIIrL5Nh BMEiYFVei3WrAe4KPU5h kWcxIHC6Vc9BJMy3Zk4+ FLunfMHnCE0ZSvak Q3HyPMEjWVZkHEUkHG3S IuFAAQpTgGwhIOYCizKu C2Rg+YoKcC3tbKkFlVEF XFEg1YPQIgJk74Oq DlUEoouA+PGANsLw5a+k t3H0TWLtKHJ6kKWWBA1H 4ofWgc4OAn8VP8A0BwlX XHFZPClIuG4HTNeW E/CIBhQySHR7aaWskK9O OV1jy8WrXDkHWoR4ESBb u1ZvYDu4ZHpmW25veTPj oOAnKwFdPKYdDs3W D85hKKfjFu30AJfcZZGc CgIxIRt9Ve1WN5LaweUr qOQlSIXlENPLU1Muu040 moMgovE1FSqvWD3t kvXhhZN1DMayRWTbDuFs MjYgMCBSCj4+Cj4+Ci9U xUEyIK1MFDbaNl8+DQpl aaEmGjyPDr6ZSiBn APPiBhhQFrp7Qu8XIy39 CNtrKAHdJmXjGZi5Bh1O C9TjcMGkogKmUlehlWDU OCVlKGIJJ8syoag7 fWR4RxyfEjCfz3QvD3Sn IXm3Vb3PZ8JnYIL7JOn6 Ov8OCXCmYwU8FpRpYNRM Vt1ZPm5JI8H8PrT2 cCTtO6Lyyz0PD4R7cLKq R0sKTsxsR0SHWz1LWvE6 qkBmbI6CmRllklIcZcWm MjRQMFUwtTRSMLcw FgyW3dQKD2fh6PSEx9Pf HcWEFMTOWTmo0YnSvYL8 t6hY2jDxMxiJsJOerfqR g3hHdO6YP7sN7Y6N OZ9cy5GxLBYtIIpnonGp MxuLFd4WAwpjYRViMzeB Opw0Rh3NSAMfTd2psPWh Kw0IHOYrAq8JQmLt Ai6WOrOrCu0LMpXmWy9Q GEL7No6AFVU4ezSrPn0r YSAxCj4+DQplbmRvYmoN Al1EAuyfQLCpZcyQ Wuz2Xs0YDHHeFw3loRYp Vs9rVODbWb8+DQplbmRv KbdAEg3ZCziqSTItVvsN Zro7Ge7EJJWhIi0l cYRxYd7FIZHhUx5NSdDm Zn7CYsHdDm0HUaQfSc2J ANB7Ac9EXTL3nvFjXj2b YSAxCj4+DQplbmRv MmyUPi8LSfEdKTImZvcS Gmq1Hm2WENBtKe4jpGXx VW5UQKJUG2BxhTDgGTXT VCdSHd7Vj6vfWOJQ H8Lef0QwxnOcnpEFv473 vgLeKkScBBZRPVzmXY4i w2NhuzknC1rcSR70xLJ0 SOuAO8X4ZwZ9iXPe T3K1gUMjHp4Bs7OpnPYe MPHlNhVtEBVXHh8IvLMw HA7It281Um7+DQplbmRv LtiVMv2SQcUxFNJp XlaELug1Qq6VDVDnJz1y sNCdVI2NWEZMR6DfjXBw CXFMSCuAUs6Fl6ftCYLS U8RDUXH3x4QvqDzg Hp7vIQcMN92qUIVduB5e JPpZOTXtcRp5yApSY2Co F8klmTW0MIlKVQ6eQBlD Y3Y4bWGdTT7tjbXh MAo+YpjsM3aUBF5WXHRC XWUlK0slSH30uST6Wl3L HtRcNz7Nz897NSPlX9Up cHRvciAzMiAwIFIK X5X1LyK0eCEhL0TLCWOt bnRUeXBlMgovVHlwZSAv Ny3ptJaxZuUsFGV8YhF9 SGPrJOi7DdBoHu9+ BVsgsjDdXddXZe1SMwWr LPUcJpoQKac6Sh9Nc9Hq xuAhTCPwRkNpCBEyIr2N YXBIZWlnaHQgNTkx Avv3Gii0Kn3SHAOyFS71 TSOcXO9uADP2ShxkOapy X1YkKkCEE0EnzvOWSt80 IBjwUGlmGpo5WBCr GB57LBAmJAU2QvSmSjWb AoQ4RIM6XFGaHeBnMOxi FWFxGr9Ye482HwulVVNb UWNaJYEJQu7Zy458 NeWeWMQzYM9BXMLAK9Gs wRHtMXWJEVhFYp0Kl2vi PTIZI4e6DFabD4YtB1hl JENSC7C6HY4AMGt5 JvY3JAf8Mz3KiMPrVS0M w143BTHyK4DvaRJacud+ Vt7ZTR4rp3UmUKlCFjSh TIKla6KnLPd0HFnl JfviiIWvJZ1JkKR5XMZk E73kDIpvHHUdL5WfSDB6 OQo+Cu5Eg6EoHYPjLMb3 fO6Je5bLNFU66st7 TA/M5plofEpYr3YJaCH1 L3GD76WYn6CVN/77yrtu DoZAXgUkHpyqZHSr6moP a3m2idM005GLMvLm dlN8S2fnHQiisnRjTO0v 3ZwIIXHoSS8F3dOqEpzD m23Uskdm+B5cam0jEXIr ZLopzjo0KYQXQ1C2 EfXT0WldudNM+tDppbWv 0AT2Fab+VqGu/bIPnrvi x1KBN6AbVXYOPNCuDqwI XKNBCkzKJ6buTuGN /mgt1Vn1+m19BIrEIKSi SkQHQimiJEGUUqfNc/zr cH/oFAWyZF8T3MSGSscI F1fVYevybsMjT/TK icgKyZQkKdnzJyQzsuc0 5zNsvL0xPM/JNitNtwaw YuePozlcK4PjFdMCKHgl 5ZRzF0eOcB7/mRia 0M2UFB9as1UpAUQdUNxk ylOpOemAZk0QByKcSLWl QheVOog8Kg9BHIDuEp8e rIQyGeZUEVLUN2Fr wOYvKFKYMDyYP94GBo9N YCUnHM7hGK09By6zgIUw JzH1NSAaLs4HV4RhE53h cD6xTK7ZQMHabLy3 cX0DDo3XvOI5sEUcOU0M hLLgYRhuUY2Yhthso1Fx IJJ1RZBxHfgp (more content not included)... Normal [facility] Coding Summary.on 10-03-2022 Coding Summary. CD:[id number]:[id number] Gh0bWw+PGhlYWQ+PE1FV YAnN73icYKykM5dI9ATV ElOSywgQVBQTElOSyIgb uYkIL7reWUhXUHp IC8+PY3lMILiYphcaWNs z9B0aIA9D88hdu9lDYkz oJZ5CLJqIbRmkiizy1fq oYl5MGgaRqzbLbRh OSOqaC03IIG0gU04Vd49 gGGhqTKzh9qjtQl9CeNq MALkOHZ4cSjsXWukh2Pk GYXqF09rgQPre1F2 IGNvbGxhcHNlOyBlbXB0 gH7mICgbmtgqu4wwzpdg Mxp0ax87qNSkz8G4zNO3 W9BthqK7NKTjyFFi JlrjsWUHkK5cztebp2fq imscXkQbHOHmMGz8ENv6 UTIglBswDlUqUI58WHZ8 YAHwkhXyN8KaWPGy rGqpMbM7w1X5Jm1YD9OI MamnK3IMUZCIWMiroXD+ CZ06ss52A8NuDnwjAem5 TOSxFVP6bYN0zC7w JDQwROumj7P0aPG1R7Xu ljXuuu8um4spULVrQWzg W61kgMOhd5O4CMTnqBI7 JNTraMudCrVflZ59 Oyc+EUDjoBcam1EvSzvq s9fau4zcdXr5KpznKAHu osJocVvpVAM7m2ScZy1j PEZobXF9lLO0xM6y SzGdMeA5GZpyH436GmOh cRPzNjjzE31lG2IjeEI+ RMEmPgc7SOMfqDrsUO8t C0KhKQCrxgfrwNEt eLabKP6jFRNceiqdDNSf jS8vPOMeU6e9PwZkJdJ3 DQfpX2HkXCSgrifnKj06 sB0yJpLgVlO1GOpw S8SrbtM3MZFnxJLeAQtn EUD9R08pf1A6XWXyABQr HEJ8wSA6hI3mmIubdjwg bGVmdDsgdmVydGlj GEzaWDhdP414VABbjVbs PkNvZGluZyBEYXRlOiAg MDMvMDgvMjAyMzwvdGQ+ XSOfRKK4iOoyMKKl pMRrTBilCz2xjPqcvVfq XO1oSJJnagrzCBQypC2a IBPvvLPogAtyZU8kOWOe xzulr727SjYiSYM8 VNJnoETnY4TvcO3uAnFi KLIdKHHxH9MtwQSuPFfz A033FQjvVzP8MEHcsaXf K6AaQLHplJzaXfK4 j7E8Cx0Ib6IguzscA5Yd qGDfWfUeEcqjWGz7M1Cd PjwvdHI+WQ27BYEdQE76 BJs7EQA3oTieMKvh ZZInY2JavD2hAbWzDVWp ZGRkOyc+PHRhYmxlIHdp ZHRoPScxMDAlJyBzdHls PU1dJt3rXVMtDUDv iHwjcEHcJuZli6lqDUHp SCscME1xxMjiJ8WtuCO5 FQGxu4v1Bg49X22aR0Bi dXA+IDTncGT2nEI1 jI4sPzGtAcD7GAhuN407 BaUdySLhIublv7zsz4ez oFi0YcS4IPBfltTpuKem FPB1z2HwVx79A80j IHdpZHRoPSIxNSUiIHZh sXmstw0lzV2qWu9+PGNv pUO4uIF9bV7dUuYqAwK6 MRmhB239FbCjmLMj Sollw8xqs5ymgUj3LiJe OOEeppUzdKypNKH0y9Dx Io78X8RnvBmne9BiVnh2 cj13yOIui7O1fYP7 N5GwPKWfzrqilCRrgVdp PC8oWAPhdlvlEYYgsP9u ZUOiH7o8LrPyRlM3XHsq A7TqqlN1ZIUzoSFr WXLebGBWtA2hcfijw3od lnzhKmMsMCWoQMg0CJr6 NABfrSweOhCdVWM0RzO4 ZSM7dWVffQ7prRpm fhkzqC8pZth+WAY0bUKu rMBKMR4zXrnsnED+PHRk FAU7lKhoGGtaMPQltT1y AFOpJ7s9RpDdAzH4 VMhqJ2KpcnH7PUUwgUQu FDWdjWFNhJ4rmfevo5cv qnzyMfEeDAUqUIg0GUb2 LWFsaWduOiBsZWZ0 MkK0NUE5vDYdeY6chFoz bzbwmK5xYbo+QmlydGgg AQD7KLq6H0GlPnc5YOLe aCtaLI2ywVZwNLvf Tf0jiHqrwDraEP6sFQSd yzafa752LtFqv4llFLZm tWUuQIhjUVC3R95yk3Q1 EOUwBWAmPTA4oIU3 pA1ohRjjsltasIVizFqb otNdtVpmLLmrIWnhT006 RIRaeMbkTzZaMId8X4Du Iyl4HLJnmVqyDD2h bLVfPJikZi0lkUqdzIya SK9qUXYrvlxvr108TaXa t1ukLXPmkOGpBVgwBYU4 J97vx5M9VWMeMXSe SIJ1cPB2eK0mlSubzkts bGVmdDsgdmVydGljYWwt WScyW770YULqjOhsOuLr xBi2G6ViIuk7XYDg kMmbFC5aaZPmXHpoSu9u mFyvpWtuYW7hHKHedgyg s374HuZif1lrDHRygWKd YOeaHLP9T19sp0D7 NKIoUHLrXVF8hBK5qS6c bGlnbjogbGVmdDsgdmVy vAzgVGtdJTjcF177SUIp cDsnPlBhdGllbnQg LVoiPKd9G7SqGjzbjPR+ LQ65MBIpOE44rVKtiJOh y1nmrKy7RbIbTHWjGLT4 gUeuUYzul6PdVXLk Q06aeRUqj4Y8OPEsqAws jCFaLkAmeFK0uT5vLMct njyft8vygzekNuzeo2fx vl27fU03E36qGPgp ZHRoPSIzMCUiIHZhbGln mw5flQ2tRd7+PGNvbCB3 qFU0yH6tXVMsQqN4ANkq I052OrWauWKzAobp f2vpz0qhnCc4RgU5HSJt bcDsjBibXJB6t5ZiGt47 X65gSMrcDQPzFDZrGOJs OUJvfQboov6rqW9c Ii8+GFAfeKZ1hPF0hU8q PrPjCuT7ZBphC965ZoHt iLXiIybjY80iN5RzsOZ+ ZCVaXxb0QKZwbWeb YT2qyCSgXDgaDb5dMSO6 IoMyTbYeQFveP4NkHKZf loxmtiynjAO4IQDbIORl tU62Gp5tmVmzVABf kIUHdW1vklopp3wutvoy PuZeXXIyOUi2ZJx1JELe hZkaTpYpOLX4ShG3LUS5 fGLvxY6gkFxzbonp sG9pT2MvUOYyacejEb09 gK8cSpQhSzC8SUppGmi+ REVMUEhJQSBJSUksIFJB QN4XOrTqMkfojDL+ VVLxHQV8cAidKElrBHVs jP9rGSCxA9z3KqHrMwC4 TKnhW7ZgEOGsifbfXa80 vS1vZkXmMcA6FXri V8HovwB7OFBomUQgKZkj JRP0F36eo1S1BDLzKQXa SXT8kEG8uI5inSywdjmq bGVmdDsgdmVydGlj LZzeDLqhR557SOPgjCvn SiNxLoKlNhM7QMj4P0Ik Xwq1NXHcoFkfPL0aeOEb PGebCf2paArfuAhy LU1zKPYwsvdxYGWxxW1p NGRbmKBeaTrdJW8aKSZn fehle596XhFrFME8URZi uNRuU4JmkC1yIzDo ALIfVRUkE3RdiXCpKJvb E602JKovHwC0IJGrggQj K9XbTDTghGdpPiR4h4K7 Js2vZeZCCKVgvvnp dGQ+ZRZdPDX5nQecLXtw LZAtxN2qEMYgS9j1KbRd DxO9TRrzT9CbCVAarpuq Xn60oF2xTnGtSuH3 CFeiD7VfodY3UMAniASa MCtzPQX7N32fo0S6BOOt DLWxOER3lIT4hR5ovNxj bjogbGVmdDsgdmVy yAyeQAvdNJznU104OEJb nJfmAu3kbMB2O2FaIou4 NFRdiIsoZL5zuYGaOOjv Sn3izGdwhNjvOK1t EVCsqnwfXNZbjB6bUHGg lZMtmRbxWC9nLWMlfypz t581TpRhZAD3RPXrxWRv O7ElxQ6ySrWqOPMi QPWhY5ZvkBMqGQgbO906 IFbaJbZ5LRZbskBiI5Iq HOQxhHfdGcT4t4Y6Ru8K zOTkL5LyQ8t6I8Rb PjwvdHI+PJ25LJGwTF71 gJLgtVScr5bvcHx4OcFu NTCfVGF8jWpdJFqgn7Kq HARyI03vpPEpi4H9 IGNvbGxhcHNlOyBlbXB0 uA3jLBrdaltcm3kfsgzg Direv9dzmv95wY81Z57o IHdpZHRoPSIzMCUi MCDdmPytoe3soP7uGt1+ TXWpqYP7dLR9pR2zEfCd BpG3WFclF297TaHklXHg Gtqpb6ivv6nkiJt4 IjIwJSIgdmFsaWduPSJ0 l1HmUv70F47iFGfwNDBx ZRUuEBAxLHDpsLyktv1d yB4bIa7+XC0qn7ra fh91jZ78nWF+PHRkIHN0 rYauWIeyUJQtiU0sORfl HtB9IUViIlHsmL92bHNq LXkzLz4uiJapsCkb QY4tDEWclhsxq725EwCe q3ywTJIekDHwKZilONS3 F84qt2L3PHCkPJJcKXS3 kDF4jG3ndRsraskv bGVmdDsgdmVydGljYWwt RImhA130GHKavOyxNcHh dZAlV6qdlbUECP3kDdaq dGQ+UOTfATV1kEbg IUixEWOkrE9sFZJfJ3e5 KgXqWqF1ROdrU0AcoaY7 SBYdnJTyHKMvzOOJsC6n adlrv5yrhskcLoUq YZYlIAi2QGe1LDWcfCax FnWjGQO5FeM0FWV6sHCg nQ5mjXaeqwjbtQ1pLal+ RklOOjwvdGQ+PHRk HIY3eQmtXVmzQJQswS8a KHYsO7a5NmKrOtL1ORja P0DvysU4OKWcjBPsIIVs rSSRuP8arldsi9mc juxvNkZrEJMxBTx5PLy6 WKAaeHsyLgUaCUJ2ItL2 ZEQ4zKSpbZ5ecBybveys xM9yDft+TVJOOjwv dGQ+ZXHwRLV3bJeyKAqv PPMreI1aXZEjQ8f0IvLy HjW8ZTlfZ7JscgP3YWDm wOQjOUJklRNRuF4e rqqkz8azeyvvOxDlBCHv OTz4RIo8BGSykGunBnHs OIM5TjO8HOD8aEYflJ1b gEubwkzvlL6iPft+ JNU5KJX6CW38XM82T0Pn PjwvdGFibGU+PHRhYmxl IHdpZHRoPScxMDAlJyBz nKcyVK6eNm4kZMEw LWNv (more content not included)... Normal [facility] Consent for Treatmenton Consent for Treatment [id number] #[id number]:127 [facility] Discharge Instructionson Discharge Instructions [id number]#1.00CD:127 [facility] ED Clinical Summaryon 2022 ED Clinical Summary [place] [id number] ED Clinical Summary Person Information Name: COREY ALONSO III Robin[facility] Age: 27 Years : 1995 Sex: Male Language: Venezuelan PCP: EMELI CHI CNP Marital Status: Phone: [phone] Visit Id: Visit Reason: Headache; Seizure; SEIZURE [...] 09/30/2022 21:30:18 09/30/2022 21:30:18 09/30/2022 21:30:18 ADDRESS: [place] [id number] [phone] PHYS DOC NOTES: MEDICAL INFORMATION: Prescriptions Given: Medications to Continue with No Changes Other Medications lamotrigine (lamotrigine 100 mg oral tablet) 2 times a day. oxcarbazepine (Trileptal) By Mouth 2 times a day. PATIENT EDUCATION INFORMATION: Instructions: Epilepsy Follow up: With: Address: When: EMELI CHI [address] [place] [address] [phone] Business (1) In 3 days DIAGNOSIS: Seizure [facility] ED Note-Physicianon 10-01-19 ED Note-Physician Basic [...] seizure. Patient's significant other states that around [facility] when he had a generalized tonic-clonic seizure [...] In 3 days [address] [place] [address] [phone] Business (1) Additional Instructions: Patient Education Epilepsy [...] Diagnostic Results No qualifying data available. Normal [facility] Comment on above: Result Comment: Elec [...] these instructions at home: Medicines ? Take skqh-bkd-fmkwfxo and prescription medicines only as told by [...] a health (more content not included)... Normal [facility] ED Patient Summaryon 023 ED Patient Summary [address] [address] Patient Discharge Instructions Person Information Name: COREY ALONSO III Age: 27 Years Arrival Date: 09/30/2022 20:00:11 Discharge Diagnosis: Seizure Primary Care Physician: EMELI CHI CNP Provider Information Primary Provider: Junior Raygoza DO Advanced Baby Attendant:None The exam and treatment you received in the Emergency Department were for an urgent problem and are not intended as complete care. It is important that you follow up with a doctor, nurse practitioner, or physician?s assistant case manager for ongoing care. If your symptoms become [...] Address: When: EMELI [facility] [address] [place] [address] [phone] Business (1) In 3 days In the event that this physician does not participate in your insurance network, please consult with your insurance company to find a nearby participating provider. Patient Education Materials: Epilepsy A MESSAGE TO ALL PATIENTS REGARDING OPIOIDS PRESCRIPTION OPIOIDS: WHAT YOU NEED TO KNOW Prescription opioids can be used to help relieve iyrqqvik-ly-zbqrhh pain and are often prescribed following a [...] with addiction, tell your health career development coordinator/teacher and ask for guidance or call [facility] National Helpline at 6-538-221-HELP. v Source: Department of Health and Human Services/[employer] (more content not included)... [facility] Monitor Recordon 09-30-2022 Monitor Record [id number]#1.00CD:127 [facility] Pre-Arrival Noteon 3 Pre-Arrival Note Pre-Arrival Summary Name: , ncems Current Date: 09/30/2022 20:10:38 EST Gender: Male Date of : Age: 27 Pre-Arrival Type: EMS ETA: 09/30/2022 20:20:00 EST Primary Care Physician: Presenting Problem: seizure Pre-Arrival User: Referring Source: Location: Completion Date/Time: 09/30/2022 19:50:00 [facility] Emergency Department Pre-Hospital Report Form Vital Signs: BP 144/96, HR 98, SPO2 99%, GCS 15 Pre-Hospital Report: Pt coming from [facility], had a seizure, 5th one today, known to have some back in July, alert and alittle confused Treatment in Route: Response to Treatment: Misc. Issues: [facility] GROUP A STREP CULTUREon 08-30 S. pyogenes Ag Ql (Unsp spec) Culture Observations: NEGATIVE FOR GROUP A STREPTOCOCCUS. Normal [facility] Comment on above: Performed By: #### G RASTCX, SSCRN #### [facility] [address] [place] [address] [address] Bob Nelson STREPT SCREENon 09-23-2022 STREP SCREEN A Negative Normal NEGATIVE [facility] Comment on above: Performed By: #### G RASTCX, SSCRN #### [facility] [address] [address] [address] Bob Nelson Basic Metab w/rfx MGon 08-07 Anion gap [Moles/Vol] 11 mmol/L Normal 9-17 [facility] Comment on above: Performed By: #### B MPX #### [address] [address] Archival Records Clerk: Carter Collins MD Calcium [Mass/Vol] 10.0 mg/dL Normal 8.6-10.4 [facility] Comment on above: Performed By: #### B MPX #### [facility] [address] [place] [address] Archival Records Clerk: Carter Collins MD Chloride [Moles/Vol] 102 mmol/L Normal 98-107 [facility] Comment on above: Performed By: #### B MPX #### [address] [address] Archival Records Clerk: Carter Collins MD CO2 [Moles/Vol] 26 mmol/L Normal 20-31 [facility] Comment on above: Performed By: #### B MPX #### [address] [address] Archival Records Clerk: Carter Collins MD Creatinine [Mass/Vol] 0.94 mg/dL Normal 0.70-1.20 [facility] Comment on above: Performed By: #### B MPX #### [address] [address] Archival Records Clerk: Carter Collins MD GFR/1.73 sq M.predicted among non-blacks MDRD (S/P/Bld) [Vol rate/Area] mL/min/{1.73_m2} Normal >60 [facility] Comment on above: Result Comment: Effective Apr [...] Performed By: #### B MPX #### [facility] [address] [place] [address] Archival Records Clerk: Carter Collins MD Glucose [Mass/Vol] 97 mg/dL Normal 70-99 [facility] Comment on above: Performed By: #### B MPX #### [facility] [address] [place] [address] Archival Records Clerk: Carter Collins MD Potassium [Moles/Vol] 4.0 mmol/L Normal 3.7-5.3 [facility] Comment on above: Performed By: #### B MPX #### [facility] [address] [place] [address] Archival Records Clerk: Carter Collins MD Sodium [Moles/Vol] 139 mmol/L Normal 135-144 [facility] Comment on above: Performed By: #### B MPX #### [facility] [address] [place] [address] Archival Records Clerk: Carter Collins MD Urea nitrogen [Mass/Vol] 12 mg/dL Normal 6-20 [facility] Comment on above: Performed By: #### B MPX #### [address] [address] Archival Records Clerk: Carter Collins MD Basic Metabolic Panel w/ Ref rehana to MGon 08-07-2022 Anion gap [Moles/Vol] 11 mmol/L 9 - 17 mmol/L [facility] Calcium [Mass/Vol] 10.0 mg/dL 8.6 - 10. 4 mg/dL [facility] Chloride [Moles/Vol] 102 mmol/L 98 - 10 7 mmol/L [facility] CO2 [Moles/Vol] 26 mmol/L 20 - 31 mmol/L [facility] Creatinine [Mass/Vol] 0.94 mg/dL 0.70 - 1.20 mg/dL [facility] GFR/1.73 sq M.predicted MDRD (S/P/Bld) [Vol rate/Area] - PINF [facility] Comment on above: Effective Apr 30, 2022 [...] [Mass/Vol] 97 mg/dL 70 - 99 mg/dL [facility] Potassium [Moles/Vol] 4.0 mmol/L 3.7 - 5.3 mmol/L [facility] Sodium [Moles/Vol] 139 mmol/L 135 - 144 mmol/L [facility] Urea nitrogen (BldV) [Mass/Vol] 12 mg/dL 6 - 20 mg/dL [facility] CBC with Auto Differentialon 08-07-2022 Absolute Eos # 0.08 [facility] Absolute Immature Granulocyte 0.04 [facility] Absolute Lymph # 2.27 [facility] Absolute Hale # 0.38 [facility] Basophils (Bld) [#/Vol] 0.03 10*3/uL [facility] Basophils/100 WBC (Bld) 0 % 0 - 2 % B [facility] Eosinophils/100 WBC (Bld) 1 % 1 - 4 % [facility] Hematocrit (Bld) [Volume fraction] 45.6 % 40.7 - 50.3 % [facility] Hemoglobin (Bld) [Mass/Vol] 15.6 g/dL 13.0 - 17.0 g/dL [facility] Immature granulocytes/100 WBC (Bld) 1 % High 0 [facility] Interpretation and review of laboratory results Abnormal [facility] Lymphocytes/100 WBC (Bld) 31 % 24 - 43 % [facility] MCH (RBC) [Entitic mass] 28.5 pg 25. 2 - 33.5 pg [facility] MCHC (RBC) [Mass/Vol] 34.2 g/dL 28.4 - 34.8 g/dL [facility] MCV (RBC) [Entitic vol] 83.4 fL 82.6 - 102.9 fL [facility] Monocytes/100 WBC (Bld) 5 % 3 - 12 % [facility] NRBC Automated 0.0 0.0 per 100 WBC [facility] Platelet distribution width (Bld) [Ratio] 12.6 % 11.8 - 14.4 % [facility] Platelet mean volume (Bld) [Entitic vol] 9.8 fL 8.1 - 13.5 fL [facility] Platelets (Bld) [#/Vol] 215 10*3/uL [facility] RBC (Bld) [#/Vol] 5.47 10*6/uL 4.21 - 5.7 7 m/uL [facility] Segmented neutrophils/100 WBC (Bld) 62 % 36 - 65 % [facility] Segs Absolute 4.58 [facility] WBC (Bld) [#/Vol] 7.4 10*3/uL [facility] CBC with Diffon 08-07-2022 Abs. Basophil 0.03 k/uL Normal 0.00-0.20 [facility] Comment on above: Performed By: #### C DP #### [facility] [address] [place], [place] [id number] Archival Records Clerk: Carter Collins MD Abs.Imm.Granulocyte 0.04 k/uL Normal 0.00-0.30 [facility] Comment on above: Performed By: #### C DP #### [facility] [address] [place], [place] [id number] Archival Records Clerk: Carter Collins MD Abs.Neutrophil (Seg) 4.58 k/uL Normal 1.50-8.10 [facility] Comment on above: Performed By: #### C DP #### [facility] [address] [place] [address] Archival Records Clerk: Carter Collins MD Basophils/100 WBC (Bld) 0 % Normal 0-2 [facility] Comment on above: Performed By: #### C DP #### [address] [address] Archival Records Clerk: Carter Collins MD Eosinophils (Bld) [#/Vol] 0.08 10*3/uL Normal 0.00-0.4 4 [facility] Comment on above: Performed By: #### C DP #### [address] [address] Archival Records Clerk: Carter Collins MD Eosinophils/100 WBC (Bld) 1 % Normal 1-4 [facility] Comment on above: Performed By: #### C DP #### [address] [address] Archival Records Clerk: Carter Collins MD Erythrocyte distribution width (RBC) [Ratio] 12.6 % Normal 11.8-14.4 [facility] Comment on above: Performed By: #### C DP #### [address] [address] Archival Records Clerk: Carter Collins MD Hematocrit (Bld) [Volume fraction] 45.6 % Normal 40.7-50.3 [facility] Comment on above: Performed By: #### C DP #### [address] [address] Archival Records Clerk: Carter Collins MD Hemoglobin (Bld) [Mass/Vol] 15.6 g/dL Normal 13.0-17.0 [facility] Comment on above: Performed By: #### C DP #### [address] [address] Archival Records Clerk: Carter Collins MD Immature granulocytes/100 WBC (Bld) 1 % High 0 [facility] Comment on above: Performed By: #### C DP #### [address] [address] Archival Records Clerk: Carter Collins MD Lymphocytes (Bld) [#/Vol] 2.27 10*3/uL Normal 1.10-3.7 0 [facility] Comment on above: Performed By: #### C DP #### [place] [address] Archival Records Clerk: Carter Collins MD Lymphocytes/100 WBC (Bld) 31 % Normal 24-43 [facility] Comment on above: Performed By: #### C DP #### [place] [address] Archival Records Clerk: Carter Collins MD MCH (RBC) [Entitic mass] 28.5 pg Normal 25.2-33.5 [facility] Comment on above: Performed By: #### C DP #### [place] [address] Archival Records Clerk: Carter Collins MD MCHC (RBC) [Mass/Vol] 34.2 g/dL Normal 28.4-34.8 [facility] Comment on above: Performed By: #### C DP #### [place] [address] Archival Records Clerk: Carter Collins MD MCV (RBC) [Entitic vol] 83.4 fL Normal 82.6-102.9 [facility] Comment on above: Performed By: #### C DP #### [address] [address] Archival Records Clerk: Carter Collins MD Monocytes (Bld) [#/Vol] 0.38 10*3/uL Normal 0.10-1.20 [facility] Comment on above: Performed By: #### C DP #### [address] [address] Archival Records Clerk: Carter Collins MD Monocytes/100 WBC (Bld) 5 % Normal 3-12 [facility] Comment on above: Performed By: #### C DP #### [address] [address] Archival Records Clerk: Carter Collins MD Neutrophil (Seg) 62 % Normal 36-65 [facility] Comment on above: Performed By: #### C DP #### [address] [address] Archival Records Clerk: Carter Collins MD NRBC Automated 0.0 per 100 WBC Normal 0.0 [facility] Comment on above: Performed By: #### C DP #### [address] [address] Archival Records Clerk: Carter Collins MD Platelet mean volume (Bld) [Entitic vol] 9.8 fL Normal 8.1-13.5 [facility] Comment on above: Performed By: #### C DP #### [address] [address] Archival Records Clerk: Carter Collins MD Platelets (Bld) [#/Vol] 215 10*3/uL Normal 138-453 [facility] Comment on above: Performed By: #### C DP #### [address] [address] Archival Records Clerk: Carter Collins MD RBC (Bld) [#/Vol] 5.47 10*6/uL Normal 4.21-5.77 [facility] Comment on above: Performed By: #### C DP #### [address] [address] Archival Records Clerk: Carter Collins MD WBC (Bld) [#/Vol] 7.4 10*3/uL Normal 3.5-11.3 [facility] Comment on above: Performed By: #### C DP #### [facility] [address] [place] [address] Archival Records Clerk: Carter Collins MD EEG video monitoringon 08-07 Samira Rubio MD 08/07/2022 6:14 PM LONG-TERM EEG-VIDEO MONITORING CLINICAL NEUROPHYSIOLOGY LABORATORY DEPARTMENT OF NEUROLOGY [facility] Patient: Corey Alonso III Age: 26 y.o. Referring Physician: Hans Granado,Geradro History: The patient is a 26 y.o. [...] revealed no abnormalities. SAMIRA RUBIO MD Diplomate, [place] [employer] Psychiatry and Neurology Diplomate, [place] Board of Clinical Neurophysiology Diplomate, [place] Board of Epilepsy Please note this is a preliminary report and updated daily. The final report will have a summary of behavior and electrographic findings with clinical correlation. [employer] Work Phone: EEG video monitoringOrdered By: Samira Rubio on 08-07-2022 [employer]pa Phone: LAMOTRIGINEon 06-19-2022 Lamotrigine, Serum 4.2 ug/mL Normal 2.0-20.0 [facility] Comment on above: Result Comment: Dete ction Limit = 1.0 Performed By: #### C BC #### [facility] [address] [place] [address] Dr. Bob Nelson CBC AUTO DIFFon 06-11-2022 BASO # 0.0 103/ul Normal 0.0-0.1 [facility] Comment on above: Performed By: #### C BC #### [facility] [address] [place] [address] Dr. Bob Nelson Basophils/100 WBC (Bld) 0.2 % Normal 0.2-2.0 [facility] Comment on above: Performed By: #### C BC #### [facility] [address] [place] [address] Dr. Bob Nelson EO # 0.0 103/ul Normal 0.0-0.7 [facility] Comment on above: Performed By: #### C BC #### [facility] [address] [place] [address] Dr. Bob Nelson Eosinophils/100 WBC (Bld) 0.0 % Critically low 0.9-7. 0 [facility] Comment on above: Performed By: #### C BC #### [facility] [address] [place] [address] Dr. Bob Nelson Erythrocyte distribution width (RBC) [Ratio] 13.0 % Normal 11.0-15.0 [facility] Comment on above: Performed By: #### C BC #### [facility] [address] [place] [address] Dr. Bob Nelson Hematocrit (Bld) [Volume fraction] 40.4 % Critically low 42.0-54.0 [facility] Comment on above: Performed By: #### C BC #### [facility] [address] [place] [address] Dr. Bob Nelson Hemoglobin (Bld) [Mass/Vol] 14.3 g/dL Normal 14.0-18.0 [facility] Comment on above: Performed By: #### C BC #### [facility] [address] [place] [address] Dr. Bob Nelson IG # 0.03 10e3/ul Normal 0.00-0.03 [facility] Comment on above: Performed By: #### C BC #### [facility] [address] [place] [address] Dr. Bob Nelson IG % 0.3 % Normal 0.0-0.5 [facility] Comment on above: Performed By: #### C BC #### [facility] [address] [place] [address] Dr. Bob Nelson LYMPH # 0.7 103/ul Critically low 1.2-3.8 [facility] Comment on above: Performed By: #### C BC #### [facility] [address] [place] [address] Dr. Bob Nelson Lymphocytes/100 WBC (Bld) 7.2 % Critically low 20.5-6 0.0 [facility] Comment on above: Performed By: #### C BC #### [facility] [address] [place] [address] Dr. Bob Nelson MANUAL DIFF REQ NO Normal [facility] Comment on above: Performed By: #### C BC #### [facility] [address] [place] [address] Dr. Bob Nelson MCH (RBC) [Entitic mass] 28.7 pg Normal 25.9-34.0 [facility] Comment on above: Performed By: #### C BC #### [facility] [address] [place] [address] Dr. Bob Nelson MCHC (RBC) [Mass/Vol] 35.4 g/dL Critically high 29.9-35.2 [facility] Comment on above: Performed By: #### C BC #### [facility] [address] [place] [address] Dr. Bob Nelson MCV (RBC) [Entitic vol] 81.1 fL Normal 80.0-94.0 [facility] Comment on above: Performed By: #### C BC #### [facility] [address] [address] [address] Bob Nelson MONO # 0.6 103/ul Normal 0.3-0.8 [facility] Comment on above: Performed By: #### C BC #### [facility] [address] [place] [address] Dr. Bob Nelson Monocytes/100 WBC (Bld) 6.0 % Normal 1.7-12.0 [facility] Comment on above: Performed By: #### C BC #### [facility] [address] [place] [address] Dr. Bob Nelson NEUT # 8.8 103/ul Critically high 1.4-6.5 [facility] Comment on above: Performed By: #### C BC #### [facility] [address] [place] [address] Dr. Bbo Nelson Neutrophils/100 WBC (Bld) 86.3 % Critically high 43.0- 75.0 [facility] Comment on above: Performed By: #### C BC #### [facility] [address] [place] [address] Dr. Bob Nelson Platelet mean volume (Bld) [Entitic vol] 9.1 fL Critically low 9.5-13.5 [facility] Comment on above: Performed By: #### C BC #### [facility] [address] [place] [address] Dr. Bob Nelson PLT 177 103/ul Normal 150-450 [facility] Comment on above: Performed By: #### C BC #### [facility] [address] [place] [address] Dr. Bob Nelson RBC 4.98 106/ul Normal 4.70-6.10 [facility] Comment on above: Performed By: #### C BC #### [facility] [address] [place] [address] Dr. Bob Nelson WBC 10.2 103/ul Normal 4.0-11.0 [facility] Comment on above: Performed By: #### C BC #### [facility] [address] [place] [address] Dr. Bob Nelson CBC W MANUAL DIFFon 06-11-20 22 ATYPICAL LYMPH # Normal [facility] Comment on above: Performed By: #### C BC #### [facility] [address] [place] [address] Dr. Bob Nelson ATYPICAL LYMPH % Normal [facility] Comment on above: Performed By: #### C BC #### [facility] [address] [place] [address] Dr. Bob Nelson BAND # 0.0 103/ul Normal 0.0-0.3 [facility] Comment on above: Performed By: #### C BC #### [facility] [address] [place] [address] Dr. Bob Nelson BAND % 0 % Normal 0-5 [facility] Comment on above: Performed By: #### C BC #### [facility] [address] [place] [address] Dr. Bob Nelson BASOM # 0.00 103/ul Normal 0.00-0.10 [facility] Comment on above: Performed By: #### C BC #### [facility] [address] [place] [address] Dr. Bob Nelson BASOM % 0.0 % Critically low 0.2-2.0 [facility] Comment on above: Performed By: #### C BC #### [facility] [address] [place] [address] Dr. Bob Nelson BLAST # Normal [facility] Comment on above: Performed By: #### C BC #### [facility] [address] [place] [address] Dr. Bob Nelson BLAST % Normal [facility] Comment on above: Performed By: #### C BC #### [facility] [address] [place] [address] Dr. Bob Nelson CORRECTED WBC Normal 4.0-11.0 The [facility] Comment on above: Performed By: #### C BC #### [facility] [address] [place] [address] Dr. Bob Nelson EOS # 0.00 103/ul Normal 0.00-0.70 [facility] Comment on above: Performed By: #### C BC #### [facility] [address] [address] [address] Bob Nelson EOS% 0.0 % Critically low 0.9-7.0 [facility] Comment on above: Performed By: #### C BC #### [facility] [address] [address] [address] Bob Nelson HCT 41.3 % Critically low 42.0-54.0 [facility] Comment on above: Performed By: #### C BC #### [facility] [address] [address] [address] Bob Nelson HGB 14.4 g/dl Normal 14.0-18.0 [facility] Comment on above: Performed By: #### C BC #### [facility] [address] [place] [address] Dr. Bob Nelson LYMPHM # 0.85 103/ul Critically low 1.20-3.80 [facility] Comment on above: Performed By: #### C BC #### [facility] [address] [place] [address] Dr. Bob Nelson LYMPHM% 8.0 % Critically low 20.5-60.0 [facility] Comment on above: Performed By: #### C BC #### [facility] [address] [place] [address] Dr. Bob Nelson MCH 28.6 pg Normal 25.9-34.0 [facility] Comment on above: Performed By: #### C BC #### [facility] [address] [place] [address] Dr. Bob Nelson MCHC 34.9 g/dl Normal 29.9-35.2 [facility] Comment on above: Performed By: #### C BC #### [facility] [address] [place] [address] Dr. Bob Nelson MCV 82.1 fL Normal 80.0-94.0 [facility] Comment on above: Performed By: #### C BC #### [facility] [address] [place] [address] Dr. Bob Nelson METAMYELOCYTE # Normal [facility] Comment on above: Performed By: #### C BC #### [facility] [address] [place] [address] Dr. Bob Nelson METAMYELOCYTE % Normal [facility] Comment on above: Performed By: #### C BC #### [facility] [address] [place] [address] Dr. Bob Nelson MONOM# 0.64 103/ul Normal 0.30-0.80 [facility] Comment on above: Performed By: #### C BC #### [facility] [address] [place] [address] Dr. Bob Nelson MONOM% 6.0 % Normal 1.7-12.0 [facility] Comment on above: Performed By: #### C BC #### [facility] [address] [place] [address] Dr. Bob Nelson MPV 9.4 fL Critically low 9.5-13.5 [facility] Comment on above: Performed By: #### C BC #### [facility] [address] [place] [address] Dr. Bob Nelson MYELOCYTE # Normal [facility] Comment on above: Performed By: #### C BC #### [facility] [address] [place] [address] Dr. Bob Nelson MYELOCYTE % Normal [facility] Comment on above: Performed By: #### C BC #### [facility] [address] [place] [address] Dr. Bob Nelson NRBC Normal [facility] Comment on above: Performed By: #### C BC #### [facility] [address] [address] [address] Bob Nelson PLT 182 103/ul Normal 150-450 [facility] Comment on above: Performed By: #### C BC #### [facility] [address] [place] [address] Dr. Bob Nelson RBC 5.03 106/ul Normal 4.70-6.10 [facility] Comment on above: Performed By: #### C BC #### [facility] [address] [place] [address] Dr. Bob Nelson RDW 12.9 % Normal 11.0-15.0 [facility] Comment on above: Performed By: #### C BC #### [facility] [address] [place] [address] Dr. Bob Nelson SEG # 9.12 103/ul Critically high 1.40-6.50 [facility] Comment on above: Performed By: #### C BC #### [facility] [address] [place] [address] Dr. Bob Nelson SEG % 86.0 % Critically high 43.0-75.0 [facility] Comment on above: Performed By: #### C BC #### [facility] [address] [place] [address] Dr. Bob Nelson WBC 10.6 103/ul Normal 4.0-11.0 [facility] Comment on above: Performed By: #### C BC #### [facility] [address] [place] [address] Dr. Bob Nelson ER URINE PROFILEon 2 Bilirubin Ql (U) Negative Normal NEGATIVE [facility] Comment on above: Performed By: #### B MP #### [facility] [address] [place] [address] Dr. Bob Nelson Clarity (U) CLEAR Normal CLEAR [facility] Comment on above: Performed By: #### B MP #### [facility] [address] [place] [address] Dr. Bob Nelson Color (U) DK. YELLOW Normal YELLOW [facility] Comment on above: Performed By: #### B MP #### [facility] [address] [place] [address] Dr. Bob VANEGAS A micrscopic examination will be performed if indicated. Normal [facility] Comment on above: Performed By: #### B MP #### [facility] [address] [place] [address] Dr. Bob Nelson Glucose Ql (U) Negative Normal NEGATIVE [facility] [place] Comment on above: Performed By: #### B MP #### [facility] [address] [place] [address] Dr. Bob Nelson Hemoglobin Ql (U) Negative Normal NEGATIVE [facility] Comment on above: Performed By: #### B MP #### [facility] [address] [place] [address] Dr. Bob Nelson Ketones Ql (U) Negative Normal NEGATIVE [facility] [place] Comment on above: Performed By: #### B MP #### [facility] [address] [place] [address] Dr. Bob Nelson LEUKOCYTES Negative Normal NEGATIVE [facility] Comment on above: Performed By: #### B MP #### [facility] [address] [place] [address] Dr. Bob Nelson Nitrite Ql (U) Negative Normal NEGATIVE [facility] Comment on above: Performed By: #### B MP #### [facility] [address] [place] [address] Dr. Bob Nelson pH (U) 6.5 [pH] Normal 5-9 [facility] Comment on above: Performed By: #### B MP #### [facility] [address] [place] [address] Dr. Bob Nelson Protein (U) [Mass/Vol] 30 mg/dL Abnormal NEGAT TOMMY/ TRACE [facility] Comment on above: Performed By: #### B MP #### [facility] [address] [place] [address] Dr. Bob Nelson SPEC GRAVITY 1.025 Normal 1.005-<=1.[address] [place] [address] Comment on above: Performed By: #### B MP #### [facility] [address] [place] [address] Dr. Bob Nelson UR MICRO IND INDICATED Normal [facility] Comment on above: Performed By: #### B MP #### [facility] [address] [place] [address] Dr. Bob Nelson Urobilinogen Qn (U) 0.2 {Lance'U}/dL Normal 0.2 - 1. 0 [facility] Comment on above: Performed By: #### B MP #### [facility] [address] [address] [address] Bob Nelson PROF CHEM 8 (BAS METB)on Anion gap [Moles/Vol] 7.2 mmol/L Normal [facility] Comment on above: Performed By: #### B MP #### [facility] [address] [address] [address] Bob Nelson Calcium [Mass/Vol] 9.0 mg/dL Normal 8.5-10.1 [facility] Comment on above: Performed By: #### B MP #### [facility] [address] [place] [address] Dr. Bob Nelson Chloride [Moles/Vol] 98 mmol/L Normal 98-107 [facility] Comment on above: Performed By: #### B MP #### [facility] [address] [place] [address] Dr. Bob Nelson CO2 [Moles/Vol] 30.9 mmol/L Normal 21.0-32.0 [facility] Comment on above: Performed By: #### B MP #### [facility] [address] [place] [address] Dr. Bob Nelson Creatinine [Mass/Vol] 0.96 mg/dL Normal 0.70-1.30 [facility] Comment on above: Performed By: #### B MP #### [facility] [address] [place] [address] Dr. Bob Nelson EGFR-AF EQUATORIAL GUINEAN >60 Normal >=60 [facility] Comment on above: Performed By: #### B MP #### [facility] [address] [place] [address] Dr. Bob Nelson EGFR-NON AF EQUATORIAL GUINEAN >60 Normal >=60 [facility] Comment on above: Performed By: #### B MP #### [facility] [address] [place] [address] Dr. Bob Nelson Glucose [Mass/Vol] 132 mg/dL Critically high 74-106 [facility] Comment on above: Performed By: #### B MP #### [facility] [address] [address] [address] Bob Nelson Potassium [Moles/Vol] 4.1 mmol/L Normal 3.5-5.1 [facility] Comment on above: Performed By: #### B MP #### [facility] [address] [address] [address] Bob Nelson Sodium [Moles/Vol] 132 mmol/L Critically low 136-145 [facility] Comment on above: Performed By: #### B MP #### [facility] [address] [address] [address] Bob Nelson Urea nitrogen [Mass/Vol] 13.0 mg/dL Normal 7.0-18.0 [facility] Comment on above: Performed By: #### B MP #### [facility] [address] [place] [address] Dr. Bob Nelson Urea nitrogen/Creatinine [Mass ratio] 13.5 mg/mg Normal [facility] Comment on above: Performed By: #### B MP #### [facility] [address] [place] [address] Dr. Bob Nelson URINE MICROSCOPIC ONLYon BACTERIA NONE SEEN Normal NONE SEEN [facility] Comment on above: Performed By: #### B MP #### [facility] [address] [place] [address] Dr. Bob Nelson Bacteria identified Cx Nom (U) NOT INDICATED Normal [facility] Comment on above: Performed By: #### B MP #### [facility] [address] [place] [address] Dr. Bob Nelson CAST SEEN Abnormal NONE SEEN [facility] Comment on above: Performed By: #### B MP #### [facility] [address] [place] [address] Dr. Bob Nelson Crystals LM Nom (Urine sed) NONE SEEN Normal NONE SEEN [facility] Comment on above: Performed By: #### B MP #### [facility] [address] [address] [address] Bob Nelson Epithelial cells LM Ql (Urine sed) NONE SEEN Normal NONE SEEN /RARE [facility] Comment on above: Performed By: #### B MP #### [facility] [address] [place] [address] Dr. Bob Nelson MUCOUS NONE SEEN Normal NONE SEEN [facility] Comment on above: Performed By: #### B MP #### [facility] [address] [place] [address] Dr. Bob Nelson RBC NONE SEEN Abnormal 0-2 [facility] Comment on above: Performed By: #### B MP #### [facility] [address] [place] [address] Dr. Bob Nelson WBC NONE SEEN Normal NONE SEEN [facility] Comment on above: Performed By: #### B MP #### [facility] [address] [place] [address] Dr. Bob Nelson XR CHEST 1 Von [...] TRINITY TRINH Date: 2022-06-11 09:17 Normal [facility] LAMOTRIGINEon 05-22-2022 Lamotrigine, Serum 5.5 ug/mL Normal 2.0-20.0 [facility] Comment on above: Result Comment: Dete ction Limit = 1.0 Performed By: #### L AMOT #### [facility] [address] [place] [address] Dr. Bob Nelson CBC AUTO DIFFon 04-24-2022 BASO # 0.0 103/ul Normal 0.0-0.1 [facility] Comment on above: Performed By: #### C BC #### [facility] [address] [place] [address] Dr. Bob Nelson Basophils/100 WBC (Bld) 0.5 % Normal 0.2-2.0 [facility] Comment on above: Performed By: #### C BC #### [facility] [address] [place] [address] Dr. Bob Nelson EO # 0.1 103/ul Normal 0.0-0.7 [facility] Comment on above: Performed By: #### C BC #### [facility] [address] [place] [address] Dr. Bob Nelson Eosinophils/100 WBC (Bld) 1.8 % Normal 0.9-7.0 [facility] [place] Comment on above: Performed By: #### C BC #### [facility] [address] [place] [address] Dr. Bob Nelson Erythrocyte distribution width (RBC) [Ratio] 12.6 % Normal 11.0-15.0 [facility] [place] Comment on above: Performed By: #### C BC #### [facility] [address] [place] [address] Dr. Bob Nelson Hematocrit (Bld) [Volume fraction] 48.4 % Normal 42.0-54.0 [facility] [place] Comment on above: Performed By: #### C BC #### [facility] [address] [place] [address] Dr. Bob Nelson Hemoglobin (Bld) [Mass/Vol] 17.2 g/dL Normal 14.0-18.0 [facility] [place] Comment on above: Performed By: #### C BC #### [facility] [address] [place] [address] Dr. Bob Nelson IG # 0.02 10e3/ul Normal 0.00-0.03 [facility] [place] Comment on above: Performed By: #### C BC #### [facility] [address] [place] [address] Dr. Bob Nelson IG % 0.3 % Normal 0.0-0.5 [facility] [place] Comment on above: Performed By: #### C BC #### [facility] [address] [place] [address] Dr. Bob Nelson LYMPH # 2.6 103/ul Normal 1.2-3.8 [facility] [place] Comment on above: Performed By: #### C BC #### [facility] [address] [place] [address] Dr. Bob Nelson Lymphocytes/100 WBC (Bld) 39.4 % Normal 20.5-60.0 [facility] [place] Comment on above: Performed By: #### C BC #### [facility] [address] [place] [address] Dr. Bob Nelson MANUAL DIFF REQ NO Normal [facility] Comment on above: Performed By: #### C BC #### [facility] [address] [place] [address] Dr. Bob Nelson MCH (RBC) [Entitic mass] 29.0 pg Normal 25.9-34.0 [facility] [place] Comment on above: Performed By: #### C BC #### [facility] [address] [place] [address] Dr. Bob Nelson MCHC (RBC) [Mass/Vol] 35.5 g/dL Critically high 29.9-35.2 [facility] [place] Comment on above: Performed By: #### C BC #### [facility] [address] [place] [address] Dr. Bob Nelson MCV (RBC) [Entitic vol] 81.6 fL Normal 80.0-94.0 [facility] Comment on above: Performed By: #### C BC #### [facility] [address] [place] [address] Dr. Bob Nelson MONO # 0.5 103/ul Normal 0.3-0.8 [facility] [place] Comment on above: Performed By: #### C BC #### [facility] [address] [place] [address] Dr. Bob Nelson Monocytes/100 WBC (Bld) 8.2 % Normal 1.7-12.0 [facility] Comment on above: Performed By: #### C BC #### [facility] [address] [place] [address] Dr. Bob Nelson NEUT # 3.3 103/ul Normal 1.4-6.5 [facility] [place] Comment on above: Performed By: #### C BC #### [facility] [address] [place] [address] Dr. Bob Nelson Neutrophils/100 WBC (Bld) 49.8 % Normal 43.0-75.0 [facility] [place] Comment on above: Performed By: #### C BC #### [facility] [address] [place] [address] Dr. Bob Nelson Platelet mean volume (Bld) [Entitic vol] 9.5 fL Normal 9.5-13.5 [facility] [place] Comment on above: Performed By: #### C BC #### [facility] [address] [place] [address] Dr. Bob Nelson PLT 225 103/ul Normal 150-450 [facility] [place] Comment on above: Performed By: #### C BC #### [facility] [address] [place] [address] Dr. Bob Nelson RBC 5.93 106/ul Normal 4.70-6.10 [facility] [place] Comment on above: Performed By: #### C BC #### [facility] [address] [place] [address] Dr. Bob Nelson WBC 6.6 103/ul Normal 4.0-11.0 [facility] [place] Comment on above: Performed By: #### C BC #### [facility] [address] [place] [address] Dr. Bob Nelson DRUG SCREEN RAPID (URINE)on 04-24-2022 AMP Negative Normal NEGATIVE [facility] [place] Comment on above: Performed By: #### B MP #### [facility] [address] [place] [address] Dr. Bob Nelson BAR Negative Normal NEGATIVE [facility] [place] Comment on above: Performed By: #### B MP #### [facility] [address] [place] [address] Dr. Bob Nelson BUP Negative Normal NEGATIVE [facility] [place] Comment on above: Performed By: #### B MP #### [facility] [address] [place] [address] Dr. Bob Nelson BZO Negative Normal NEGATIVE [facility] [place] Comment on above: Performed By: #### B MP #### [facility] [address] [place] [address] Dr. Bob Nelson BETHANIE Negative Normal NEGATIVE [facility] [place] Comment on above: Performed By: #### B MP #### [facility] [address] [place] [address] Dr. Bob Nelson CUT-OFFS SEE BELOW Normal [facility] [place] Comment on above: Result Comment: AMP (Amphetamine): 500ng/mL, BAR (Barbituates): 200 ng/mL, BZO (Benzodiazepines): 150 ng/mL, BUP (Buprenorphine): 10 ng/mL, BETHANIE (Cocaine): 150 ng/mL, mAMP (Methamphetamine): 500 ng/mL, MTD (Methadone): 200 ng/mL, OPI (Opiates): 100 ng/mL, OXY (Oxycodone): 100 ng/mL, PCP (Phencyclidine): 25 ng/mL, PPX (Propoxyphene): 300 ng/mL, THC (Cannabinoids): 50 ng/mL, TCA (Trycyclic Antidepressants): 300 ng/mL Performed By: #### B MP #### [facility] [address] [place] [address] Dr. Bbo Nelson DRUG CUT HEADER DRUG CLASS TEST SYSTEM CUT-OFF CONCENTRATIONS ARE FOLLOWS: Normal [facility] [place] Comment on above: Performed By: #### B MP #### [facility] [address] [place] [address] Dr. Bob Nelson mAMP Negative Normal NEGATIVE [facility] [place] Comment on above: Performed By: #### B MP #### [facility] [address] [place] [address] Dr. Bob Nelson MTD Negative Normal NEGATIVE [facility] [place] Comment on above: Performed By: #### B MP #### [facility] [address] [place] [address] Dr. Bob Nelson OPI Negative Normal NEGATIVE [facility] [place] Comment on above: Performed By: #### B MP #### [facility] [address] [place] [address] Dr. Bob Nelson OXY Negative Normal NEGATIVE [facility] [place] Comment on above: Performed By: #### B MP #### [facility] [address] [place] [address] Dr. Bob Nelson PCP Negative Normal NEGATIVE [facility] [place] Comment on above: Performed By: #### B MP #### [facility] [address] [place] [address] Dr. Bob Nelson PPX Negative Normal NEGATIVE [facility] [place] Comment on above: Performed By: #### B MP #### [facility] [address] [place] [address] Dr. Bob Nelson TCA Negative Normal NEGATIVE [facility] [place] Comment on above: Performed By: #### B MP #### [facility] [address] [place] [address] Dr. Bob Nelson THC Negative Normal NEGATIVE [facility] [place] Comment on above: Performed By: #### B MP #### [facility] [address] [place] [address] Dr. Bob Nelson ER URINE PROFILEon 2 Bilirubin Ql (U) Negative Normal NEGATIVE [facility] Comment on above: Performed By: #### C MP #### [facility] [address] [place] [address] Dr. Bob Nelson Clarity (U) CLEAR Normal CLEAR [facility] [place] Comment on above: Performed By: #### C MP #### [facility] [address] [place] [address] Dr. Bob Nelson Color (U) YELLOW Normal YELLOW [facility] [place] Comment on above: Performed By: #### C MP #### [facility] [address] [place] [address] Dr. Bob VANEGAS A micrscopic examination will be performed if indicated. Normal [facility] Comment on above: Performed By: #### C MP #### [facility] [address] [place] [address] Dr. Bob Nelson Glucose Ql (U) Negative Normal NEGATIVE [facility] Comment on above: Performed By: #### C MP #### [facility] [address] [place] [address] Dr. Bob Nelson Hemoglobin Ql (U) Negative Normal NEGATIVE [facility] Comment on above: Performed By: #### C MP #### [facility] [address] [place] [address] Dr. Bob Nelson Ketones Ql (U) Negative Normal NEGATIVE [facility] Comment on above: Performed By: #### C MP #### [facility] [address] [place] [address] Dr. Bob Nelson LEUKOCYTES Negative Normal NEGATIVE [facility] [place] Comment on above: Performed By: #### C MP #### [facility] [address] [place] [address] Dr. Bob Nelson Nitrite Ql (U) Negative Normal NEGATIVE [facility] Comment on above: Performed By: #### C MP #### [facility] [address] [place] [address] Dr. Bob Nelson pH (U) 5.5 [pH] Normal 5-9 [facility] [place] Comment on above: Performed By: #### C MP #### [facility] [address] [place] [address] Dr. Bob Nelson Protein (U) [Mass/Vol] 100 mg/dL Abnormal NEGAT TOMMY/ TRACE [facility] [place] Comment on above: Performed By: #### C MP #### [facility] [address] [place] [address] Dr. Bob Nelson SPEC GRAVITY >=1.030 Abnormal 1.005-<=1.0 25 [facility] [place] Comment on above: Performed By: #### C MP #### [facility] [address] [place] [address] Dr. Bob Nelson UR MICRO IND INDICATED Normal [facility] [place] Comment on above: Performed By: #### C MP #### [facility] [address] [place] [address] Dr. Bob Nelson Urobilinogen Qn (U) 0.2 {Lance'U}/dL Normal 0.2 - 1. 0 [facility] [place] Comment on above: Performed By: #### C MP #### [facility] [address] [place] [address] Dr. Bob Nelson PROF 14(COMP METB)on 022 Albumin [Mass/Vol] 4.3 g/dL Normal 3.4-5.0 [facility] Comment on above: Performed By: #### C MP #### [facility] [address] [place] [address] Dr. Bob Nelson Albumin/Globulin [Mass ratio] 1.2 {ratio} Normal [facility] [place] Comment on above: Performed By: #### C MP #### [facility] [address] [address] [address] Bob Nelson ALP [Catalytic activity/Vol] 104 U/L Normal 46-116 [facility] [place] Comment on above: Performed By: #### C MP #### [facility] [address] [place] [address] Dr. Bob Nelson ALT [Catalytic activity/Vol] 64 U/L Critically high 16-63 [facility] [place] Comment on above: Performed By: #### C MP #### [facility] [address] [place] [address] Dr. Bob Nelson Anion gap [Moles/Vol] 19.9 mmol/L Normal [facility] Comment on above: Performed By: #### C MP #### [facility] [address] [place] [address] Dr. Bob Nelson AST [Catalytic activity/Vol] 26 U/L Normal 15-37 [facility] [place] Comment on above: Performed By: #### C MP #### [facility] [address] [place] [address] Dr. Bob Nelson Bilirubin [Mass/Vol] 0.3 mg/dL Normal 0.2-1.0 [facility] [place] Comment on above: Performed By: #### C MP #### [facility] [address] [place] [address] Dr. Bob Nelson Calcium [Mass/Vol] 9.4 mg/dL Normal 8.5-10.1 [facility] Comment on above: Performed By: #### C MP #### [facility] [address] [place] [address] Dr. Bob Nelson Chloride [Moles/Vol] 101 mmol/L Normal 98-107 [facility] Comment on above: Performed By: #### C MP #### [facility] [address] [address] [address] Bob Nelson CO2 [Moles/Vol] 20.8 mmol/L Critically low 21.0-32.0 [facility] [place] Comment on above: Performed By: #### C MP #### [facility] [address] [address] [address] Bob Nelson Creatinine [Mass/Vol] 1.16 mg/dL Normal 0.70-1.30 [facility] [place] Comment on above: Performed By: #### C MP #### [facility] [address] [address] [address] Bob Nelson EGFR-AF EQUATORIAL GUINEAN >60 Normal >=60 [facility] Comment on above: Performed By: #### C MP #### [facility] [address] [address] [address] Bob Nelson EGFR-NON AF EQUATORIAL GUINEAN >60 Normal >=60 [facility] [place] Comment on above: Performed By: #### C MP #### [facility] [address] [address] [address] Bob Nelson Globulin (S) [Mass/Vol] 3.6 g/dL Normal [facility] Comment on above: Performed By: #### C MP #### [facility] [address] [place] [address] Dr. Bob Nelson Glucose [Mass/Vol] 152 mg/dL Critically high 74-106 [facility] Comment on above: Performed By: #### C MP #### [facility] [address] [address] [address] Bob Nelson Potassium [Moles/Vol] 3.7 mmol/L Normal 3.5-5.1 [facility] [place] Comment on above: Performed By: #### C MP #### [facility] [address] [address] [address] Bob Nelson Protein [Mass/Vol] 7.9 g/dL Normal 6.4-8.2 [facility] Comment on above: Performed By: #### C MP #### [facility] [address] [place] [address] Dr. Bob Nelson Sodium [Moles/Vol] 138 mmol/L Normal 136-145 [facility] Comment on above: Performed By: #### C MP #### [facility] [address] [place] [address] Dr. Bob Nelson Urea nitrogen [Mass/Vol] 12.0 mg/dL Normal 7.0-18.0 [facility] [place] Comment on above: Performed By: #### C MP #### [facility] [address] [place] [address] Dr. Bob Nelson Urea nitrogen/Creatinine [Mass ratio] 10.3 mg/mg Normal [facility] [place] Comment on above: Performed By: #### C MP #### [facility] [address] [place] [address] Dr. Bob Nelson TSHon 04-24-2022 TSH 3.982 uIU/mL Critically high 0.358-3.740 [facility] Comment on above: Performed By: #### C MP #### [facility] [address] [place] [address] Dr. Bob Nelson URINE MICROSCOPIC ONLYon BACTERIA NONE SEEN Normal NONE SEEN [facility] [place] Comment on above: Performed By: #### C MP #### [facility] [address] [place] [address] Dr. Bob Nelson Bacteria identified Cx Nom (U) NOT INDICATED Normal [facility] [place] Comment on above: Performed By: #### C MP #### [facility] [address] [place] [address] Dr. Bob Nelson CAST SEEN Abnormal NONE SEEN [facility] [place] Comment on above: Performed By: #### C MP #### [facility] [address] [place] [address] Dr. Bob Nelson Crystals LM Nom (Urine sed) NONE SEEN Normal NONE SEEN [facility] [place] Comment on above: Performed By: #### C MP #### [facility] [address] [place] [address] Dr. Bob Nelson Epithelial cells LM Ql (Urine sed) RARE Normal NONE SEEN /RARE [facility] Comment on above: Performed By: #### C MP #### [facility] [address] [address] [address] Bob Nelson HYALINE CAST RARE Normal [facility] Comment on above: Performed By: #### C MP #### [facility] [address] [address] [address] Bob Nelson MUCOUS NONE SEEN Normal NONE SEEN [facility] [place] Comment on above: Performed By: #### C MP #### [facility] [address] [address] [address] Bob Nelson RBC NONE SEEN Abnormal 0-2 [facility] [place] Comment on above: Performed By: #### C MP #### [facility] [address] [place] [address] Dr. Bob Nelson WBC NONE SEEN Normal NONE SEEN [facility] [place] Comment on above: Performed By: #### C MP #### [facility] [address] [place] [address] Dr. Bob Nelson No Panel InformationOrdered By: Derek Burks on 04-12-2022 Semen Analysis Comment . [facility] Comment on above: NO SPERM SEEN CONFIR MED BY SECOND TECH/@KWJ&STEVAN Semen WBC Concentration <1.0 M/mL <0.9 F [facility] Sperm % Non-Motile [facility] Comment on above: Test not performed Sperm Motility Total [facility] Comment on above: Test not performed Qualitative semen viscosityO rdered By: Derek Burks on 04-12-2022 Viscosity Ql (Jeanie) Normal Normal [facility] Semen Analysis, Fertilityon 04-12-2022 Immotile Sperm Not performed Normal [facility] Comment on above: Order Comment: Metho d of Collection:: Masturbation Has the patient had a vasectomy?: N Type of Specimen Container:: Sterile Container Abstinence Period:: 48 HRS Kept at body temperature?: Y Any Collection or Transport Problems?: NO Performed By: #### S EMCOMP #### [address] Non-Progression Sperm Motili Not performed [facility] Comment on above: Order Comment: Metho d of Collection:: Masturbation Has the patient had a vasectomy?: N Type of Specimen Container:: Sterile Container Abstinence Period:: 48 HRS Kept at body temperature?: Y Any Collection or Transport Problems?: NO Performed By: #### S EMCOMP #### [facility] [address] [place] [address] Normal Sperm Morphology Not performed Normal >=4.0 [facility] Comment on above: Order Comment: Metho d of Collection:: Masturbation Has the patient had a vasectomy?: N Type of Specimen Container:: Sterile Container Abstinence Period:: 48 HRS Kept at body temperature?: Y Any Collection or Transport Problems?: NO Performed By: #### S EMCOMP #### [address] Rapid Progression Sperm Motili Not performed [facility] Comment on above: Order Comment: Metho d of Collection:: Masturbation Has the patient had a vasectomy?: N Type of Specimen Container:: Sterile Container Abstinence Period:: 48 HRS Kept at body temperature?: Y Any Collection or Transport Problems?: NO Performed By: #### S EMCOMP #### [address] Semen Comment . [facility] Comment on above: Order Comment: Metho d of Collection:: Masturbation Has the patient had a vasectomy?: N Type of Specimen Container:: Sterile Container Abstinence Period:: 48 HRS Kept at body temperature?: Y Any Collection or Transport Problems?: NO Result Comment: NO S PERM SEEN CONFIRMED BY SECOND TECH/@[facility] STEVAN PERFORMED BY: [place] [address] PATHOLOGIST LABORATORY TECHNICIAN CARLITA SEALS M.D. Performed By: #### S EMCOMP #### [address] Semen Liquefaction Normal Normal <=60 min [facility] Comment on above: Order Comment: Metho d of Collection:: Masturbation Has the patient had a vasectomy?: N Type of Specimen Container:: Sterile Container Abstinence Period:: 48 HRS Kept at body temperature?: Y Any Collection or Transport Problems?: NO Performed By: #### S EMCOMP #### [facility] [address] [place] [address] [place] Semen Viscosity Normal Normal Normal [facility] Comment on above: Order Comment: Metho d of Collection:: Masturbation Has the patient had a vasectomy?: N Type of Specimen Container:: Sterile Container Abstinence Period:: 48 HRS Kept at body temperature?: Y Any Collection or Transport Problems?: NO Performed By: #### S EMCOMP #### [address] Semen Volume 1.0 mL Low >=1.5 [facility] Comment on above: Order Comment: Metho d of Collection:: Masturbation Has the patient had a vasectomy?: N Type of Specimen Container:: Sterile Container Abstinence Period:: 48 HRS Kept at body temperature?: Y Any Collection or Transport Problems?: NO Performed By: #### S EMCOMP #### [place] [address] [place] Sperm Concentration <2.0 Low >=15 [facility] Comment on above: Order Comment: Metho d of Collection:: Masturbation Has the patient had a vasectomy?: N Type of Specimen Container:: Sterile Container Abstinence Period:: 48 HRS Kept at body temperature?: Y Any Collection or Transport Problems?: NO Result Comment: Suboptimal specimen. Unable to perform morphology testing. Performed By: #### S EMCOMP #### [place] [address] [place] Total Motility (MT+DENTAL FINANCIAL COORDINATOR) Not performed Normal >=40 (MT+DENTAL FINANCIAL COORDINATOR) [facility] Comment on above: Order Comment: Metho d of Collection:: Masturbation Has the patient had a vasectomy?: N Type of Specimen Container:: Sterile Container Abstinence Period:: 48 HRS Kept at body temperature?: Y Any Collection or Transport Problems?: NO Performed By: #### S EMCOMP #### [facility] [address] [place] [address] [place] WBC Concent, Semen <1.0 Normal <1.0 [facility] Comment on above: Order Comment: Metho d of Collection:: Masturbation Has the patient had a vasectomy?: N Type of Specimen Container:: Sterile Container Abstinence Period:: 48 HRS Kept at body temperature?: Y Any Collection or Transport Problems?: NO Performed By: #### S EMCOMP #### [facility] [address] Semen Analysis, FertilityOrd ered By: Derek Burks on 04-12-2022 Semen Appearance Normal Normal Normal [facility] Comment on above: Order Comment: Metho d of Collection:: Masturbation Has the patient had a vasectomy?: N Type of Specimen Container:: Sterile Container Abstinence Period:: 48 HRS Kept at body temperature?: Y Any Collection or Transport Problems?: NO Performed By: #### S EMCOMP #### [facility] [address] [place] [address] Semen pH 6.0 Low >=7.2 [facility] Comment on above: Order Comment: Metho d of Collection:: Masturbation Has the patient had a vasectomy?: N Type of Specimen Container:: Sterile Container Abstinence Period:: 48 HRS Kept at body temperature?: Y Any Collection or Transport Problems?: NO Performed By: #### S EMCOMP #### [facility] [address] [place] [address] Semen liquefaction time abhinav urementOrdered By: Derek Burks on 04-12-2022 Liquefaction (Jeanie) [Time] Normal <=60 min [facility] Semen volumeOrdered By: Celso Burks on 04-12-2022 Specimen volume (Jeanie) 1.0 mL >1.5 [facility] Sperm countOrdered By: Derek Burks on 04-12-2022 Spermatozoa (Jeanie) [#/Vol] <2.0 M/mL >15 [facility] Comment on above: Suboptimal specimen. Unable to perform morphology testing. Sperm morphologyOrdered By: Derek Burks on 04-12-2022 Spermatozoa Nom (Jeanie) TNP [facility] Comment on above: Test not performed LAMOTRIGINEon 04-09-2022 Lamotrigine, Serum 6.7 ug/mL Normal 2.0-20.0 [facility] Comment on above: Result Comment: Dete ction Limit = 1.0 Performed By: #### C BC #### [facility] [address] [place] [address] Dr. Bob Nelson LAMOTRIGINEon 03-02-2022 Lamotrigine, Serum 2.3 ug/mL Normal 2.0-20.0 [facility] Comment on above: Result Comment: Dete ction Limit = 1.0 Performed By: #### C MP #### [facility] [address] [place] [address] Dr. Bob Nelson OXCARBAZEPINEon 03-01-2022 Oxcarbazepine 5 ug/mL Critically low 10-35 [facility] Comment on above: Result Comment: This test was developed and its performance characteristics determined by [employer]. It has not been cleared or approved by the Food and Drug Administration. Detection Limit = 1 Performed By: #### B MP #### [facility] [address] [place] [address] Dr. Bob Nelson CBC AUTO DIFFon 02-28-2022 BASO # 0.0 103/ul Normal 0.0-0.1 [facility] Comment on above: Performed By: #### C MP #### [facility] [address] [place] [address] Dr. Bob Nelson Basophils/100 WBC (Bld) 0.5 % Normal 0.2-2.0 [facility] Comment on above: Performed By: #### C MP #### [facility] [address] [place] [address] Dr. Bob Nelson EO # 0.1 103/ul Normal 0.0-0.7 [facility] Comment on above: Performed By: #### C MP #### [facility] [address] [place] [address] Dr. Bob Nelson Eosinophils/100 WBC (Bld) 0.9 % Normal 0.9-7.0 [facility] Comment on above: Performed By: #### C MP #### [facility] [address] [address] [address] Bob Nelson Erythrocyte distribution width (RBC) [Ratio] 12.8 % Normal 11.0-15.0 [facility] Comment on above: Performed By: #### C MP #### [facility] [address] [place] [address] Dr. Bob Nelson Hematocrit (Bld) [Volume fraction] 43.8 % Normal 42.0-54.0 [facility] Comment on above: Performed By: #### C MP #### [facility] [address] [place] [address] Dr. Bob Nelson Hemoglobin (Bld) [Mass/Vol] 14.9 g/dL Normal 14.0-18.0 [facility] Comment on above: Performed By: #### C MP #### [facility] [address] [place] [address] Dr. Bob Nelson IG # 0.02 10e3/ul Normal 0.00-0.03 [facility] Comment on above: Performed By: #### C MP #### [facility] [address] [place] [address] Dr. Bob Nelson IG % 0.3 % Normal 0.0-0.5 [facility] Comment on above: Performed By: #### C MP #### [facility] [address] [place] [address] Dr. Bob Nelson LYMPH # 2.2 103/ul Normal 1.2-3.8 [facility] Comment on above: Performed By: #### C MP #### [facility] [address] [place] [address] Dr. Bob Nelson Lymphocytes/100 WBC (Bld) 34.0 % Normal 20.5-60.0 [facility] Comment on above: Performed By: #### C MP #### [facility] [address] [place] [address] Dr. Bob Nelson MANUAL DIFF REQ NO Normal [facility] Comment on above: Performed By: #### C MP #### [facility] [address] [place] [address] Dr. Bob Nelson MCH (RBC) [Entitic mass] 28.4 pg Normal 25.9-34.0 [facility] Comment on above: Performed By: #### C MP #### [facility] [address] [place] [address] Dr. Bob Nelson MCHC (RBC) [Mass/Vol] 34.0 g/dL Normal 29.9-35.2 [facility] Comment on above: Performed By: #### C MP #### [facility] [address] [place] [address] Dr. Bob Nelson MCV (RBC) [Entitic vol] 83.6 fL Normal 80.0-94.0 [facility] Comment on above: Performed By: #### C MP #### [facility] [address] [place] [address] Dr. Bob Nelson MONO # 0.5 103/ul Normal 0.3-0.8 [facility] Comment on above: Performed By: #### C MP #### [facility] [address] [place] [address] Dr. Bob Nelson Monocytes/100 WBC (Bld) 7.9 % Normal 1.7-12.0 [facility] Comment on above: Performed By: #### C MP #### [facility] [address] [place] [address] Dr. Bob Nelson NEUT # 3.6 103/ul Normal 1.4-6.5 [facility] Comment on above: Performed By: #### C MP #### [facility] [address] [place] [address] Dr. Bob Nelson Neutrophils/100 WBC (Bld) 56.4 % Normal 43.0-75.0 [facility] Comment on above: Performed By: #### C MP #### [facility] [address] [place] [address] Dr. Bob Nelson Platelet mean volume (Bld) [Entitic vol] 9.5 fL Normal 9.5-13.5 [facility] Comment on above: Performed By: #### C MP #### [facility] [address] [place] [address] Dr. Bob Nelson PLT 192 103/ul Normal 150-450 [facility] Comment on above: Performed By: #### C MP #### [facility] [address] [place] [address] Dr. Bob Nelson RBC 5.24 106/ul Normal 4.70-6.10 [facility] Comment on above: Performed By: #### C MP #### [facility] [address] [place] [address] Dr. Bob Nelson WBC 6.4 103/ul Normal 4.0-11.0 [facility] Comment on above: Performed By: #### C MP #### [facility] [address] [place] [address] Dr. Bob Nelson PROF 14(COMP METB)on 022 Albumin [Mass/Vol] 3.9 g/dL Normal 3.4-5.0 [facility] Comment on above: Performed By: #### C MP #### [facility] [address] [place] [address] Dr. Bob Nelson Albumin/Globulin [Mass ratio] 1.3 {ratio} Normal [facility] Comment on above: Performed By: #### C MP #### [facility] [address] [place] [address] Dr. Bob Nelson ALP [Catalytic activity/Vol] 68 U/L Normal 46-116 [facility] Comment on above: Performed By: #### C MP #### [facility] [address] [place] [address] Dr. Bob Nelson ALT [Catalytic activity/Vol] 170 U/L Critically high 16-63 [facility] Comment on above: Performed By: #### C MP #### [facility] [address] [place] [address] Dr. Bob Nelson Anion gap [Moles/Vol] 11.0 mmol/L Normal [facility] Comment on above: Performed By: #### C MP #### [facility] [address] [place] [address] Dr. Bob Nelson AST [Catalytic activity/Vol] 48 U/L Critically high 15-37 [facility] Comment on above: Performed By: #### C MP #### [facility] [address] [address] [address] Bob Nelson Bilirubin [Mass/Vol] 0.6 mg/dL Normal 0.2-1.0 [facility] Comment on above: Performed By: #### C MP #### [facility] [address] [address] [address] Bob Nelson Calcium [Mass/Vol] 9.1 mg/dL Normal 8.5-10.1 [facility] Comment on above: Performed By: #### C MP #### [facility] [address] [address] [address] Bob Nelson Chloride [Moles/Vol] 105 mmol/L Normal 98-107 [facility] Comment on above: Performed By: #### C MP #### [facility] [address] [address] [address] Bob Nelson CO2 [Moles/Vol] 28.9 mmol/L Normal 21.0-32.0 [facility] Comment on above: Performed By: #### C MP #### [facility] [address] [address] [address] Bob Nelson Creatinine [Mass/Vol] 0.96 mg/dL Normal 0.70-1.30 [facility] Comment on above: Performed By: #### C MP #### [facility] [address] [address] [address] Bob Nelson EGFR-AF EQUATORIAL GUINEAN >60 Normal >=60 [facility] Comment on above: Performed By: #### C MP #### [facility] [address] [address] [address] Bob Nelson EGFR-NON AF EQUATORIAL GUINEAN >60 Normal >=60 [facility] Comment on above: Performed By: #### C MP #### [facility] [address] [address] [address] Bob Nelson Globulin (S) [Mass/Vol] 3.0 g/dL Normal [facility] Comment on above: Performed By: #### C MP #### [facility] [address] [address] [address] Bob Nelson Glucose [Mass/Vol] 98 mg/dL Normal 74-106 [facility] Comment on above: Performed By: #### C MP #### [facility] [address] [address] [address] Bob Nelson Potassium [Moles/Vol] 3.9 mmol/L Normal 3.5-5.1 [facility] Comment on above: Performed By: #### C MP #### [facility] [address] [address] [address] Bob Nelson Protein [Mass/Vol] 6.9 g/dL Normal 6.4-8.2 [facility] Comment on above: Performed By: #### C MP #### [facility] [address] [address] [address] Bob Nelson Sodium [Moles/Vol] 141 mmol/L Normal 136-145 [facility] Comment on above: Performed By: #### C MP #### [facility] [address] [address] [address] Bob Nelson Urea nitrogen [Mass/Vol] 14.0 mg/dL Normal 7.0-18.0 [facility] Comment on above: Performed By: #### C MP #### [facility] [address] [address] [address] Bob Nelson Urea nitrogen/Creatinine [Mass ratio] 14.6 mg/mg Normal [facility] Comment on above: Performed By: #### C MP #### [facility] [address] [address] [address] Bob Nelson CBC AUTO DIFFon 02-27-2022 BASO # 0.0 103/ul Normal 0.0-0.1 [facility] Comment on above: Performed By: #### B MP #### [facility] [address] [address] [address] Bob Nelson Basophils/100 WBC (Bld) 0.5 % Normal 0.2-2.0 [facility] Comment on above: Performed By: #### B MP #### [facility] [address] [place] [address] Dr. Bob Nelson EO # 0.1 103/ul Normal 0.0-0.7 [facility] Comment on above: Performed By: #### B MP #### [facility] [address] [place] [address] Dr. Bob Nelson Eosinophils/100 WBC (Bld) 0.6 % Critically low 0.9-7. 0 [facility] Comment on above: Performed By: #### B MP #### [facility] [address] [place] [address] Dr. Bob Nelson Erythrocyte distribution width (RBC) [Ratio] 12.5 % Normal 11.0-15.0 [facility] Comment on above: Performed By: #### B MP #### [facility] [address] [place] [address] Dr. Bob Nelson Hematocrit (Bld) [Volume fraction] 46.1 % Normal 42.0-54.0 [facility] Comment on above: Performed By: #### B MP #### [facility] [address] [place] [address] Dr. Bob Nelson Hemoglobin (Bld) [Mass/Vol] 16.1 g/dL Normal 14.0-18.0 [facility] Comment on above: Performed By: #### B MP #### [facility] [address] [place] [address] Dr. Bob Nelson IG # 0.02 10e3/ul Normal 0.00-0.03 [facility] Comment on above: Performed By: #### B MP #### [facility] [address] [place] [address] Dr. Bob Nelson IG % 0.3 % Normal 0.0-0.5 [facility] Comment on above: Performed By: #### B MP #### [facility] [address] [place] [address] Dr. Bob Nelson LYMPH # 1.3 103/ul Normal 1.2-3.8 [facility] Comment on above: Performed By: #### B MP #### [facility] [address] [address] [address] Bob Nelson Lymphocytes/100 WBC (Bld) 16.2 % Critically low 20.5-6 0.0 [facility] Comment on above: Performed By: #### B MP #### [facility] [address] [place] [address] Dr. Bob Nelson MANUAL DIFF REQ NO Normal [facility] Comment on above: Performed By: #### B MP #### [facility] [address] [address] [address] Bob Nelson MCH (RBC) [Entitic mass] 28.6 pg Normal 25.9-34.0 [facility] Comment on above: Performed By: #### B MP #### [facility] [address] [place] [address] Dr. Bob Nelson MCHC (RBC) [Mass/Vol] 34.9 g/dL Normal 29.9-35.2 [facility] Comment on above: Performed By: #### B MP #### [facility] [address] [place] [address] Dr. Bob Nelson MCV (RBC) [Entitic vol] 81.9 fL Normal 80.0-94.0 [facility] Comment on above: Performed By: #### B MP #### [facility] [address] [place] [address] Dr. Bob Nelson MONO # 0.4 103/ul Normal 0.3-0.8 [facility] Comment on above: Performed By: #### B MP #### [facility] [address] [place] [address] Dr. Bob Nelson Monocytes/100 WBC (Bld) 5.0 % Normal 1.7-12.0 [facility] Comment on above: Performed By: #### B MP #### [facility] [address] [place] [address] Dr. Bob Nelosn NEUT # 6.1 103/ul Normal 1.4-6.5 [facility] Comment on above: Performed By: #### B MP #### [facility] [address] [place] [address] Dr. Bob Nelson Neutrophils/100 WBC (Bld) 77.4 % Critically high 43.0- 75.0 [facility] Comment on above: Performed By: #### B MP #### [facility] [address] [place] [address] Dr. Bob Nelson Platelet mean volume (Bld) [Entitic vol] 9.5 fL Normal 9.5-13.5 [facility] Comment on above: Performed By: #### B MP #### [facility] [address] [place] [address] Dr. Bob Nelson PLT 203 103/ul Normal 150-450 [facility] Comment on above: Performed By: #### B MP #### [facility] [address] [place] [address] Dr. Bob Nelson RBC 5.63 106/ul Normal 4.70-6.10 [facility] Comment on above: Performed By: #### B MP #### [facility] [address] [place] [address] Dr. Bob Nelson WBC 7.9 103/ul Normal 4.0-11.0 [facility] Comment on above: Performed By: #### B MP #### [facility] [address] [place] [address] HEAD WO CONon [...] A CONNER Date: 2022-02-27 15:43 Normal [facility] Covid-19 PCR (CVDTB)on SARS-CoV-2 (COVID-19) RNA MAHESH+probe Ql (Unsp spec) Not detected Normal NOT DETECTED [facility] Comment on above: [...] for this test is supported by the [place] of [employer] and Human Service's declaration that [...] used). Performed By: #### C MP #### [facility] [address] [place] [address] Dr. Bob Nelson LACTATE/LACTIC ACIDon 2021 Lactate [Moles/Vol] 0.9 mmol/L Normal 0.4-1.9 [facility] Comment on above: Performed By: #### L ACT #### [facility] [address] [place] [address] Dr. Bob Nelson Lactate [Moles/Vol] 3.9 mmol/L Critically high 0.4-1.9 [facility] Comment on above: Performed By: #### B MP #### [facility] [address] [place] [address] Dr. Bob Nelson PROF CHEM 8 (BAS METB)on Anion gap [Moles/Vol] 16.1 mmol/L Normal [facility] Comment on above: Performed By: #### B MP #### [facility] [address] [address] [address] Bob Nelson Calcium [Mass/Vol] 8.9 mg/dL Normal 8.5-10.1 [facility] Comment on above: Performed By: #### B MP #### [facility] [address] [address] [address] Bob Nelson Chloride [Moles/Vol] 99 mmol/L Normal 98-107 [facility] Comment on above: Performed By: #### B MP #### [facility] [address] [address] [address] Bob Nelson CO2 [Moles/Vol] 24.0 mmol/L Normal 21.0-32.0 [facility] Comment on above: Performed By: #### B MP #### [facility] [address] [place] [address] Dr. Bob Nelson Creatinine [Mass/Vol] 1.13 mg/dL Normal 0.70-1.30 [facility] Comment on above: Performed By: #### B MP #### [facility] [address] [address] [address] Bob Nelson EGFR-AF EQUATORIAL GUINEAN >60 Normal >=60 [facility] Comment on above: Performed By: #### B MP #### [facility] [address] [place] [address] Dr. Bob Nelson EGFR-NON AF EQUATORIAL GUINEAN >60 Normal >=60 [facility] Comment on above: Performed By: #### B MP #### [facility] [address] [address] [address] Bob Nelson Glucose [Mass/Vol] 158 mg/dL Critically high 74-106 [facility] Comment on above: Performed By: #### B MP #### [facility] [address] [place] [address] Dr. Bob Nelson Potassium [Moles/Vol] 4.1 mmol/L Normal 3.5-5.1 [facility] Comment on above: Performed By: #### B MP #### [facility] [address] [address] [address] Bob Nelson Sodium [Moles/Vol] 135 mmol/L Critically low 136-145 [facility] Comment on above: Performed By: #### B MP #### [facility] [address] [place] [address] Dr. Bob Nelson Urea nitrogen [Mass/Vol] 15.0 mg/dL Normal 7.0-18.0 [facility] Comment on above: Performed By: #### B MP #### [facility] [address] [place] [address] Dr. Bob Nelson Urea nitrogen/Creatinine [Mass ratio] 13.3 mg/mg Normal [facility] Comment on above: Performed By: #### B MP #### [facility] [address] [place] [address] Dr. 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 Bob Nelson Clarity (U) CLEAR Normal CLEAR [facility] Comment on above: Performed By: #### C MP #### [facility] [address] [place] [address] Dr. Bob Nelson Color (U) LT. YELLOW Normal YELLOW [facility] [place] Comment on above: Performed By: #### C MP #### [facility] [address] [place] [address] Dr. Bob Nelson Glucose Ql (U) Negative Normal NEGATIVE [facility] Comment on above: Performed By: #### C MP #### [facility] [address] [place] [address] Dr. Bob Nelson Hemoglobin Ql (U) TRACE-INTACT Abnormal NEGATIVE [facility] Comment on above: Performed By: #### C MP #### [facility] [address] [place] [address] Dr. Bob Nelson Ketones Ql (U) Negative Normal NEGATIVE [facility] Comment on above: Performed By: #### C MP #### [facility] [address] [place] [address] Dr. Bbo Nelson LEUKOCYTES Negative Normal NEGATIVE [facility] [place] Comment on above: Performed By: #### C MP #### [facility] [address] [place] [address] Dr. Bob Nelson Nitrite Ql (U) Negative Normal NEGATIVE [facility] [place] Comment on above: Performed By: #### C MP #### [facility] [address] [place] [address] Dr. Bob Nelson pH (U) 5.5 [pH] Normal 5-9 [facility] [place] Comment on above: Performed By: #### C MP #### [facility] [address] [place] [address] Dr. Bob Nelson SPEC GRAVITY 1.010 Normal 1.005-<=1.0 25 [facility] [place] Comment on above: Performed By: #### C MP #### [facility] [address] [place] [address] Dr. Bob Nelson UA PROTEIN Negative Normal NEGATIVE/ TRACE [facility] Comment on above: Performed By: #### C MP #### [facility] [address] [place] [address] Dr. Bob Nelson UR MICRO IND INDICATED Normal [facility] Comment on above: Performed By: #### C MP #### [facility] [address] [place] [address] Dr. Bob Nelson Urobilinogen Qn (U) 0.2 {Lance'U}/dL Normal 0.2 - 1. 0 [facility] [place] Comment on above: Performed By: #### C MP #### [facility] [address] [place] [address] Dr. Bob Nelson URINE MICROSCOPIC ONLYon BACTERIA NONE SEEN Normal NONE SEEN [facility] Comment on above: Performed By: #### C MP #### [facility] [address] [place] [address] Dr. Bob Nelson Bacteria identified Cx Nom (U) NOT INDICATED Normal [facility] [place] Comment on above: Performed By: #### C MP #### [facility] [address] [place] [address] Dr. Bob Nelson CAST NONE SEEN Normal NONE SEEN [facility] Comment on above: Performed By: #### C MP #### [facility] [address] [place] [address] Dr. Bob Nelson Crystals LM Nom (Urine sed) NONE SEEN Normal NONE SEEN [facility] Comment on above: Performed By: #### C MP #### [facility] [address] [place] [address] Dr. Bob Nelson Epithelial cells LM Ql (Urine sed) RARE Normal NONE SEEN /RARE [facility] Comment on above: Performed By: #### C MP #### [facility] [address] [place] [address] Dr. Bob Nelson MUCOUS NONE SEEN Normal NONE SEEN [facility] Comment on above: Performed By: #### C MP #### [facility] [address] [place] [address] Dr. Bob Nelson RBC 0-2 Normal 0-2 [facility] Comment on above: Performed By: #### C MP #### [facility] [address] [place] [address] Dr. Bob Nelson WBC NONE SEEN Normal NONE SEEN [facility] Comment on above: Performed By: #### C MP #### [facility] [address] [place] [address] Dr. Bob Nelson XR CHEST 2 Von [...] CHERI CONNER Date: 2022-02-27 15:45 Normal [facility] CBC AUTO DIFFon 02-02-2022 BASO # 0.0 103/ul Normal 0.0-0.1 [facility] Comment on above: Performed By: #### C MP #### [facility] [address] [place] [address] Dr. Bob Nelson Basophils/100 WBC (Bld) 0.2 % Normal 0.2-2.0 [facility] Comment on above: Performed By: #### C MP #### [facility] [address] [place] [address] Dr. Bob Nelson EO # 0.1 103/ul Normal 0.0-0.7 [facility] [place] Comment on above: Performed By: #### C MP #### [facility] [address] [place] [address] Dr. Bob Nelson Eosinophils/100 WBC (Bld) 0.7 % Critically low 0.9-7. 0 [facility] [place] Comment on above: Performed By: #### C MP #### [facility] [address] [place] [address] Dr. Bob Nelson Erythrocyte distribution width (RBC) [Ratio] 12.4 % Normal 11.0-15.0 [facility] [place] Comment on above: Performed By: #### C MP #### [facility] [address] [place] [address] Dr. Bob Nelson Hematocrit (Bld) [Volume fraction] 46.1 % Normal 42.0-54.0 [facility] [place] Comment on above: Performed By: #### C MP #### [facility] [address] [place] [address] Dr. Bob Nelson Hemoglobin (Bld) [Mass/Vol] 16.0 g/dL Normal 14.0-18.0 [facility] [place] Comment on above: Performed By: #### C MP #### [facility] [address] [place] [address] Dr. Bob Nelson IG # 0.03 10e3/ul Normal 0.00-0.03 [facility] [place] Comment on above: Performed By: #### C MP #### [facility] [address] [place] [address] Dr. Bob Nelson IG % 0.3 % Normal 0.0-0.5 [facility] [place] Comment on above: Performed By: #### C MP #### [facility] [address] [address] [address] Bob Nelson LYMPH # 1.5 103/ul Normal 1.2-3.8 [facility] [place] Comment on above: Performed By: #### C MP #### [facility] [address] [address] [address] Bob Nelson Lymphocytes/100 WBC (Bld) 16.0 % Critically low 20.5-6 0.0 [facility] [place] Comment on above: Performed By: #### C MP #### [facility] [address] [address] [address] Bob Nelson MANUAL DIFF REQ NO Normal [facility] Comment on above: Performed By: #### C MP #### [facility] [address] [place] [address] Dr. Bob Nelson MCH (RBC) [Entitic mass] 28.6 pg Normal 25.9-34.0 [facility] [place] Comment on above: Performed By: #### C MP #### [facility] [address] [place] [address] Dr. Bob Nelson MCHC (RBC) [Mass/Vol] 34.7 g/dL Normal 29.9-35.2 [facility] [place] Comment on above: Performed By: #### C MP #### [facility] [address] [place] [address] Dr. Bob Nelson MCV (RBC) [Entitic vol] 82.5 fL Normal 80.0-94.0 [facility] Comment on above: Performed By: #### C MP #### [facility] [address] [place] [address] Dr. Bob Nelson MONO # 0.6 103/ul Normal 0.3-0.8 [facility] [place] Comment on above: Performed By: #### C MP #### [facility] [address] [place] [address] Dr. Bob Nelson Monocytes/100 WBC (Bld) 5.7 % Normal 1.7-12.0 [facility] Comment on above: Performed By: #### C MP #### [facility] [address] [address] [address] Bob Nelson NEUT # 7.4 103/ul Critically high 1.4-6.5 [facility] Comment on above: Performed By: #### C MP #### [facility] [address] [address] [address] Bob Nelson Neutrophils/100 WBC (Bld) 77.1 % Critically high 43.0- 75.0 [facility] [place] Comment on above: Performed By: #### C MP #### [facility] [address] [address] [address] Bob Nelson Platelet mean volume (Bld) [Entitic vol] 9.3 fL Critically low 9.5-13.5 [facility] [place] Comment on above: Performed By: #### C MP #### [facility] [address] [place] [address] Dr. Bob Nelson PLT 184 103/ul Normal 150-450 [facility] Comment on above: Performed By: #### C MP #### [facility] [address] [address] [address] Bob Nelson RBC 5.59 106/ul Normal 4.70-6.10 [facility] Comment on above: Performed By: #### C MP #### [facility] [address] [place] [address] Dr. Bob Nelson WBC 9.6 103/ul Normal 4.0-11.0 [facility] [place] Comment on above: Performed By: #### C MP #### [facility] [address] [place] [address] Dr. Bob Nelson PROF 14(COMP METB)on 022 Albumin [Mass/Vol] 4.3 g/dL Normal 3.4-5.0 [facility] Comment on above: Performed By: #### C BC #### [facility] [address] [place] [address] Dr. Bob Nelson Albumin/Globulin [Mass ratio] 1.3 {ratio} Normal [facility] [place] Comment on above: Performed By: #### C BC #### [facility] [address] [address] [address] Bob Nelson ALP [Catalytic activity/Vol] 86 U/L Normal 46-116 [facility] [place] Comment on above: Performed By: #### C BC #### [facility] [address] [place] [address] Dr. Bob Nelson ALT [Catalytic activity/Vol] 87 U/L Critically high 16-63 [facility] [place] Comment on above: Performed By: #### C BC #### [facility] [address] [address] [address] Bob Nelson Anion gap [Moles/Vol] 11.9 mmol/L Normal [facility] Comment on above: Performed By: #### C BC #### [facility] [address] [place] [address] Dr. Bob Nelson AST [Catalytic activity/Vol] 44 U/L Critically high 15-37 [facility] [place] Comment on above: Performed By: #### C BC #### [facility] [address] [place] [address] Dr. Bob Nelson Bilirubin [Mass/Vol] 0.3 mg/dL Normal 0.2-1.0 [facility] [place] Comment on above: Performed By: #### C BC #### [facility] [address] [place] [address] Dr. Bob Nelson Calcium [Mass/Vol] 9.3 mg/dL Normal 8.5-10.1 [facility] Comment on above: Performed By: #### C BC #### [facility] [address] [place] [address] Dr. Bob Nelson Chloride [Moles/Vol] 102 mmol/L Normal 98-107 [facility] Comment on above: Performed By: #### C BC #### [facility] [address] [place] [address] Dr. Bob Nelson CO2 [Moles/Vol] 27.8 mmol/L Normal 21.0-32.0 [facility] Comment on above: Performed By: #### C BC #### [facility] [address] [place] [address] Dr. Bob Nelson Creatinine [Mass/Vol] 1.16 mg/dL Normal 0.70-1.30 [facility] [place] Comment on above: Performed By: #### C BC #### [facility] [address] [address] [address] Bob Nelson EGFR-AF EQUATORIAL GUINEAN >60 Normal >=60 [facility] Comment on above: Performed By: #### C BC #### [facility] [address] [address] [address] Bob Nelson EGFR-NON AF EQUATORIAL GUINEAN >60 Normal >=60 [facility] [place] Comment on above: Performed By: #### C BC #### [facility] [address] [address] [address] Bob Nelson Globulin (S) [Mass/Vol] 3.3 g/dL Normal [facility] Comment on above: Performed By: #### C BC #### [facility] [address] [address] [address] Bob Nelson Glucose [Mass/Vol] 112 mg/dL Critically high 74-106 [facility] Comment on above: Performed By: #### C BC #### [facility] [address] [address] [address] Bob Nelson Potassium [Moles/Vol] 3.7 mmol/L Normal 3.5-5.1 [facility] [place] Comment on above: Performed By: #### C BC #### [facility] [address] [address] [address] Bob Nelson Protein [Mass/Vol] 7.6 g/dL Normal 6.4-8.2 [facility] Comment on above: Performed By: #### C BC #### [facility] [address] [address] [address] Bob Nelson Sodium [Moles/Vol] 138 mmol/L Normal 136-145 [facility] Comment on above: Performed By: #### C BC #### [facility] [address] [address] [address] Bob Nelson Urea nitrogen [Mass/Vol] 11.0 mg/dL Normal 7.0-18.0 [facility] [place] Comment on above: Performed By: #### C BC #### [facility] [address] [place], [place] [address] Dr. Bob Nelson Urea nitrogen/Creatinine [Mass ratio] 9.5 mg/mg Normal [facility] Comment on above: Performed By: #### C BC #### [facility] [address] [place], [place] [address] Dr. Bob Nelson Progress Noteson 02-02-2022 [employer] Authentication Interface Message Text EMERGENCY TRIAGE, TREAT AND TRANSPORT (ET3) DOCUMENTATION OF TELEHEALTH VISIT Date / Time: 02/02/2022599 Name: Corey Alonso : 1995 SSN: [id number] EMS Agency: [facility] [x] Verbal consent obtained [] [...] Completed by: Maritza Romo MD Normal [facility] CBC AUTO DIFFon 12-30-2021 BASO # 0.0 103/ul Normal 0.0-0.1 [facility] [place] Comment on above: Performed By: #### C BC #### [facility] [address] [place] [address] Dr. Bob Nelson Basophils/100 WBC (Bld) 0.6 % Normal 0.2-2.0 [facility] Comment on above: Performed By: #### C BC #### [facility] [address] [place] [address] Dr. Bob Nelson EO # 0.0 103/ul Normal 0.0-0.7 [facility] [place] Comment on above: Performed By: #### C BC #### [facility] [address] [place] [address] Dr. Bob Nelson Eosinophils/100 WBC (Bld) 0.6 % Critically low 0.9-7. 0 [facility] [place] Comment on above: Performed By: #### C BC #### [facility] [address] [place] [address] Dr. Bob Nelson Erythrocyte distribution width (RBC) [Ratio] 12.3 % Normal 11.0-15.0 [facility] [place] Comment on above: Performed By: #### C BC #### [facility] [address] [place] [address] Dr. Bob Nelson Hematocrit (Bld) [Volume fraction] 48.5 % Normal 42.0-54.0 [facility] [place] Comment on above: Performed By: #### C BC #### [facility] [address] [place] [address] Dr. Bob Nelson Hemoglobin (Bld) [Mass/Vol] 16.1 g/dL Normal 14.0-18.0 [facility] Comment on above: Performed By: #### C BC #### [facility] [address] [place] [address] Dr. Bob Neslon IG # 0.03 10e3/ul Normal 0.00-0.03 [facility] [place] Comment on above: Performed By: #### C BC #### [facility] [address] [place] [address] Dr. Bob Nelson IG % 0.4 % Normal 0.0-0.5 [facility] [place] Comment on above: Performed By: #### C BC #### [facility] [address] [place] [address] Dr. Bob Nelson LYMPH # 2.2 103/ul Normal 1.2-3.8 [facility] [place] Comment on above: Performed By: #### C BC #### [facility] [address] [place] [address] Dr. Bob Nelson Lymphocytes/100 WBC (Bld) 30.6 % Normal 20.5-60.0 [facility] Comment on above: Performed By: #### C BC #### [facility] [address] [place] [address] Dr. Bob Nelson MANUAL DIFF REQ NO Normal [facility] Comment on above: Performed By: #### C BC #### [facility] [address] [place] [address] Dr. Bob Nelson MCH (RBC) [Entitic mass] 28.1 pg Normal 25.9-34.0 [facility] [place] Comment on above: Performed By: #### C BC #### [facility] [address] [place] [address] Dr. Bob Nelson MCHC (RBC) [Mass/Vol] 33.2 g/dL Normal 29.9-35.2 [facility] [place] Comment on above: Performed By: #### C BC #### [facility] [address] [place] [address] Dr. Bob Nelson MCV (RBC) [Entitic vol] 84.6 fL Normal 80.0-94.0 [facility] Comment on above: Performed By: #### C BC #### [facility] [address] [place] [address] Dr. Bob Nelson MONO # 0.4 103/ul Normal 0.3-0.8 [facility] [place] Comment on above: Performed By: #### C BC #### [facility] [address] [place] [address] Dr. Bob Nelson Monocytes/100 WBC (Bld) 6.1 % Normal 1.7-12.0 [facility] Comment on above: Performed By: #### C BC #### [facility] [address] [place] [address] Dr. Bob Nelson NEUT # 4.4 103/ul Normal 1.4-6.5 [facility] [place] Comment on above: Performed By: #### C BC #### [facility] [address] [place] [address] Dr. Bob Nelson Neutrophils/100 WBC (Bld) 61.7 % Normal 43.0-75.0 [facility] [place] Comment on above: Performed By: #### C BC #### [facility] [address] [place] [address] Dr. Bob eNlson Platelet mean volume (Bld) [Entitic vol] 9.5 fL Normal 9.5-13.5 [facility] [place] Comment on above: Performed By: #### C BC #### [facility] [address] [place] [address] Dr. Bob Nelson PLT 228 103/ul Normal 150-450 [facility] Comment on above: Performed By: #### C BC #### [facility] [address] [place], [place] [address] Dr. Bob Nelson RBC 5.73 106/ul Normal 4.70-6.10 [facility] [place] Comment on above: Performed By: #### C BC #### [facility] [address] [place], [place] [address] Dr. Bob Nelson WBC 7.2 103/ul Normal 4.0-11.0 [facility] [place] Comment on above: Performed By: #### C BC #### [facility] [address] [place], [place] [address] CSPINE WO CONon [...] TRINITY KING Date: 2021-12-30 20:14 Normal [facility] CT HEAD WO CONon 12-30-2021 [...] ERNESTO GIRON Date: 2021-12-30 20:37 Normal [facility] PROF CHEM 8 (BAS METB)on Anion gap [Moles/Vol] 24.1 mmol/L Normal [facility] Comment on above: Performed By: #### B MP #### [facility] [address] [place] [address] Dr. Bob Nelson Calcium [Mass/Vol] 9.3 mg/dL Normal 8.5-10.1 [facility] Comment on above: Performed By: #### B MP #### [facility] [address] [address] [address] Bob Nelson Chloride [Moles/Vol] 101 mmol/L Normal 98-107 [facility] [place] Comment on above: Performed By: #### B MP #### [facility] [address] [address] [address] Bob Nelson CO2 [Moles/Vol] 16.9 mmol/L Critically low 21.0-32.0 [facility] [place] Comment on above: Performed By: #### B MP #### [facility] [address] [address] [address] Bob Nelson Creatinine [Mass/Vol] 1.13 mg/dL Normal 0.70-1.30 [facility] [place] Comment on above: Performed By: #### B MP #### [facility] [address] [place] [address] Dr. Bob Nelson EGFR-AF EQUATORIAL GUINEAN >60 Normal >=60 [facility] Comment on above: Performed By: #### B MP #### [facility] [address] [place] [address] Dr. Bob Nelson EGFR-NON AF EQUATORIAL GUINEAN >60 Normal >=60 [facility] [place] Comment on above: Performed By: #### B MP #### [facility] [address] [address] [address] Bob Nelson Glucose [Mass/Vol] 107 mg/dL Critically high 74-106 [facility] Comment on above: Performed By: #### B MP #### [facility] [address] [address] [address] Bob Nelson Potassium [Moles/Vol] 4.0 mmol/L Normal 3.5-5.1 [facility] [place] Comment on above: Performed By: #### B MP #### [facility] [address] [address] [address] Bob Nelson Sodium [Moles/Vol] 138 mmol/L Normal 136-145 [facility] Comment on above: Performed By: #### B MP #### [facility] [address] [address] [address] Bob Nelson Urea nitrogen [Mass/Vol] 14.0 mg/dL Normal 7.0-18.0 [facility] [place] Comment on above: Performed By: #### B MP #### [facility] [address] [address] [address] Bob Nelson Urea nitrogen/Creatinine [Mass ratio] 12.4 mg/mg Normal [facility] [place] Comment on above: Performed By: #### B MP #### [facility] [address] [address] [address] Bob Nelson ELECTROENCEPHALOGRAMon 11-[address] [id number] ELECTROENCEPHALOGRAM REPORT PATIENT NAME: COREY ALONSO : 1995 MED REC NO: [id number] ROOM: ACCOUNT NO: [id number] ADMIT DATE: 11/28/2021 PROVIDER: Brian Granado DATE [...] or epileptiform activity. BRIAN GRANADO [id number] Doc#: [id number] CC: Emeli Chi, Gege Normal [facility] MRI BRAIN WO CONTRASTon 05-0 MRI BRAIN WO CONTRAST EXAMINATION: MRI OF THE BRAIN WITHOUT CONTRAST 11/28/2021 9:44 am TECHNIQUE: Multiplanar multisequence MRI of the brain was performed without the administration of intravenous contrast. COMPARISON: None HISTORY: ORDERING SYSTEM PROVIDED HISTORY: Partial symptomatic epilepsy with complex partial seizures, intractable, without status epilepticus ([facility]) TECHNOLOGIST PROVIDED HISTORY: epilepsy What [...] Anjali Lozoya MD 11/28/21 Final result Normal [facility] ANES POSTPROC EVALon 022 ANES POSTPROC EVAL HNO ID: [id number] Author: Tung Macias MD Service: Anesthesiology Author Type: Anesthesiologist Type: Anesthesia Postprocedure Evaluation Filed: 09/01/2021 6:31 AM Note Text: POST ANESTHESIA EVALUATION NOTE : 1995 Procedure Summary Date: 08/31/21 Room / Location: [address] / [facility] Anesthesia Start: 1303 Anesthesia Stop: [...] September 01, 2021 TIME: 6:31 AM CSN: [id number] [facility] ANES PRE-OPon 08-31-2021 ANES PRE-OP HNO ID: [id number] Author: Tung Macias MD Service: Anesthesiology Author Type: Anesthesiologist Type: Anesthesia Preprocedure Evaluation Filed: 08/31/2021 12:08 PM Note Text: ANESTHESIOLOGY DAY OF SURGERY NOTE : 1995 Procedure Information Date/Time: 08/31/21 1215 Procedure: CYSTOURETHROSCOPY W/ INCISION OF EJACULATORY DUCTS (Right Urethra) Location: [address] / [facility] Surgeons: Domi Scruggs MD Estimated [...] August 31, 2021 TIME: 12:08 PM CSN: [id number] [facility] OPERATIVE NOon 08-31-2021 OPERATIVE NO HNO ID: [id number] Author: Domi Scruggs MD Service: Urology Author Type: Physician Type: Operative Report Filed: 08/31/2021 3:22 PM Note Text: [facility] UROLOGY OPERATIVE REPORT Patient Name: Corey Alonso III Patient Log ID: [id number] Surgery Date: 08/31/2021 Incision/Procedure Start Time: 1:17 PM Incision Close/Procedure End Time: 1:47 PM Surgeon(s) and Manager Home Improvement(s): Surgeon(s) and Role: * Domi Scruggs MD [...] stricture was dilated using a series of Brantley Sounds to 28Fr. The scope then passed [...] made to terminate the procedure. An 18Fr nanwalek tip catheter was inserted over a solo wire and used to drain the bladder. 10cc was added to the balloon. The patient tolerated the procedure well and was taken to the recovery area in stable condition. Estimated Blood Loss 5mL Specimens * No specimens in log * Implantable Devices None Drains 1. 18Fr nanwalek tip Leal (10cc in balloon) Complications None Accidental perforations or lacerations None The primary surgeon performed the procedure with assistance from the resident Dictated by Won Huerta MD, PhD on behalf of Domi Scruggs MD [facility] CARDIAC SHARON ADMITon 017 CKMB 1.27 ng/mL Normal <=2.37 [facility] Comment on above: Performed By: #### B MP, LIPA, LIVER, CMADM ####[facility] Rudbkw[address]okg7107 [address] Creatine kinase (CK) 79 U/L Normal 55-170 [facility] Comment on above: Performed By: #### B MP, LIPA, LIVER, CMADM ####[facility] [address] [place] [address] [place] INR Coag RelTime (Bld) SEE BELOW Normal [facility] Comment on above: Result Comment: <0.0 34 ng/ml NEGATIVE 0.034-0.119 INDETERMINATE 0.120 AMI CUT OFF Performed By: #### B MP, LIPA, LIVER, CMADM ####[facility] [address] [place] [address] [place] JOSH 36.0 ng/mL Normal <=121.0 [facility] Comment on above: Performed By: #### B MP, LIPA, LIVER, CMADM ####[facility] [address] [place] [address] [place] TROP <0.012 Normal <=0.034 [facility] [place] Comment on above: Performed By: #### B MP, LIPA, LIVER, CMADM ####[facility] [address] [place] [address] [place] CBC AUTO DIFFon 05-03-2017 Basophils Auto #/vol (Bld) 0.0 103/ul Normal 0.0-0.1 [facility] Comment on above: Performed By: #### C BC ####[facility] Mvokawaxmp1349 [address] Huynhen Basophils/100 WBC Auto (Bld) 0.7 % Normal 0.2-2.0 [facility] Comment on above: Performed By: #### C BC ####[facility] [address] [place] [address] [place] Eosinophils 0.1 103/ul Normal 0.0-0.7 [facility] Comment on above: Performed By: #### C BC ####[facility] [address] [place] [address] [place] Eosinophils/100 leukocytes 1.1 % Normal 0.9-7.0 [facility] Comment on above: Performed By: #### C BC ####[facility] [address] [place] [address] [place] Erythrocyte distribution width Auto Ratio (RBC) 12.8 % Normal 11.0-15.0 [facility] Comment on above: Performed By: #### C BC ####[facility] [address] [place] [address] [place] Erythrocytes (RBC) 4.96 106/ul Normal 4.70-6.10 [facility] Comment on above: Performed By: #### C BC ####[facility] [address] [place] [address] [place] Hematocrit (HCT) 40.6 % Critically low 42.0-54.0 [facility] Comment on above: Performed By: #### C BC ####[facility] She[address] [place] [address] [place] Hemoglobin mass conc (Bld) 14.1 g/dL Normal 14.0-18.0 [facility] Comment on above: Performed By: #### C BC ####[facility] Mg[address] [place], [place] [address] IG # 0.03 10e3/ul Normal 0.00-0.03 [facility] Comment on above: Performed By: #### C BC ####[facility] [address] [place] [address] [place] IG % 0.5 % Normal 0.0-0.5 [facility] Comment on above: Performed By: #### C BC ####[facility] Obczpzviyd2175 [address] [place] Lymphocytes 1.7 103/ul Normal 1.2-3.8 [facility] Comment on above: Performed By: #### C BC ####[facility] Kzhdcisvdf6650 [address] [place] Lymphocytes/100 leukocytes 30.6 % Normal 20.5-60.0 [facility] Comment on above: Performed By: #### C BC ####[facility] Iaildaiwik4515 [address] [place] MANUAL DIFF REQ NO Normal [facility] Comment on above: Performed By: #### C BC ####[facility] [address] [place] [address] [place] MCH 28.4 pg Normal 25.9-34.0 [facility] Comment on above: Performed By: #### C BC ####[facility] Sxhexbalvl9751 [address] [place] MCHC mass conc (RBC) 34.7 g/dL Normal 29.9-35.2 [facility] Comment on above: Performed By: #### C BC ####[facility] Ybpbatikfg8585 [address] [place] MCV 81.9 fL Normal 80.0-94.0 [facility] Comment on above: Performed By: #### C BC ####[facility] Oasickvuld8250 [address] [place] Monocytes 0.3 103/ul Normal 0.3-0.8 [facility] Comment on above: Performed By: #### C BC ####[facility] Jxknboxrwj4615 [address] [place] Monocytes/100 leukocytes 5.7 % Normal 1.7-12.0 [facility] Comment on above: Performed By: #### C BC ####[facility] [address] [place] [id number] Neutrophils 3.5 103/ul Normal 1.4-6.5 [facility] Comment on above: Performed By: #### C BC ####[facility] Kwlphrbgwy[address] [place] [id number] Neutrophils/100 WBC Auto (Bld) 61.4 % Normal 43.0-75.0 [facility] Comment on above: Performed By: #### C BC ####[facility] Rsreoganwp8708 [place] [id number] Platelet mean volume (PMV) 9.3 fL Critically low 9.5-13.5 [facility] Comment on above: Performed By: #### C BC ####[facility] Rxefspmp[address] [place], [place] [address] [place] Platelets 221 103/ul Normal 150-450 [facility] Comment on above: Performed By: #### C BC ####[facility] Zqxsftycgf7186 [place] [id number] WBC (Leukocytes) 5.7 103/ul Normal 4.0-11.0 [facility] [place] [facility] Comment on above: Performed By: #### C BC ####[facility] Luesgirbdz2437 [place] [id number] LIPASEon 05-03-2017 Lipase 55.0 U/L Normal 23.0-300.0 [facility] Comment on above: Performed By: #### B MP, LIPA, LIVER, CMADM ####[facility] Vyzxtwglyq8318 [place] [id number] LIVER PROFILEon 05-03-2017 Alanine aminotransferase (ALT) 35 U/L Normal 21-72 [facility] Comment on above: Performed By: #### B MP, LIPA, LIVER, CMADM ####[facility] Szfjpuetme1278 [place] [id number] Albumin 4.4 g/dL Normal 3.5-5.0 [facility] Comment on above: Performed By: #### B MP, LIPA, LIVER, CMADM ####[facility] Txplppvogc6731 [address] [place] Albumin/Globulin Ratio 1.4 {ratio} Normal T [facility] Comment on above: Performed By: #### B MP, LIPA, LIVER, CMADM ####[facility] Radvfoxilm0181 [place] [id number] Alkaline phosphatase (ALP) 74 U/L Normal 38-126 [facility] Comment on above: Performed By: #### B MP, LIPA, LIVER, CMADM ####[facility] Suvejwouoe7272 [address] [place] Aspartate aminotransferase (AST) 21 U/L Normal 17-59 [facility] Comment on above: Performed By: #### B MP, LIPA, LIVER, CMADM ####[facility] Zzxagnxfgv24[address] [place] BILI, CONJUGATED 0.0 mg/dL Normal 0.0-0.3 [facility] [place] [facility] Comment on above: Performed By: #### B MP, LIPA, LIVER, CMADM ####[facility] Jrsagbowxr7323 [address] [place] Bilirubin Ql (U) 0.8 mg/dL Normal 0.2-1.3 [facility] [place] [facility] Comment on above: Performed By: #### B MP, LIPA, LIVER, CMADM ####[facility] Jclvoleetm5456 [address] [place] Globulin 3.1 g/dL Normal [facility] Comment on above: Performed By: #### B MP, LIPA, LIVER, CMADM ####[facility] Fhagwseyzq5088 [address] [place] Protein 7.5 g/dL Normal 6.1-8.2 [facility] Comment on above: Performed By: #### B MP, LIPA, LIVER, CMADM ####[facility] Izgfywjjvb9326 [address] [place] PROF CHEM 8 (BAS METB)on Anion gap 12.7 mmol/L Normal [facility] Comment on above: Performed By: #### B MP, LIPA, LIVER, CMADM ####[facility] Nkujhqadwn34[address] [place] BUN/Creatinine Ratio 14.4 mg/mg Normal [facility] Comment on above: Performed By: #### B MP, LIPA, LIVER, CMADM ####[facility] Piafdzvwot224[address] [place] Calcium 9.6 mg/dL Normal 8.4-10.2 [facility] Comment on above: Performed By: #### B MP, LIPA, LIVER, CMADM ####[facility] Klxebqlfkc5395 [address] [place] Chloride 103 mmol/L Normal 98-107 [facility] Comment on above: Performed By: #### B MP, LIPA, LIVER, CMADM ####[facility] Xpmtplmpco0845 [address] [place] CO2 30.0 mmol/L Normal 22.0-30.0 [facility] Comment on above: Performed By: #### B MP, LIPA, LIVER, CMADM ####[facility] Gopxikiral10[address] [place] Creatinine 0.87 mg/dL Normal 0.66-1.25 [facility] Comment on above: Performed By: #### B MP, LIPA, LIVER, CMADM ####[facility] Bdaagspjfm8446 [address] [place] eGFR (non-black) Normal 60-N/A [facility] [place] [facility] Comment on above: Performed By: #### B MP, LIPA, LIVER, CMADM ####[facility] Jwqkdtzxvt6096 [address] [place] Glucose mass conc 100 mg/dL Normal 74-106 [facility] Comment on above: Performed By: #### B MP, LIPA, LIVER, CMADM ####[facility] Opsdavwbkx3687 [address] [place] Potassium molar conc 4.0 mmol/L Normal 3.4-5.0 [facility] Comment on above: Performed By: #### B MP, LIPA, LIVER, CMADM ####[facility] Zipsvmcmkd3661 [place], [place] [address]Xuezxz [place] Sodium 142 mmol/L Normal 137-145 [facility] Comment on above: Performed By: #### B MP, LIPA, LIVER, CMADM ####[facility] Wcscpsizul3247 [place], [place] [address]Njrohl [place] Urea nitrogen 13.0 mg/dL Normal 9.0-20.0 The [facility] Comment on above: Performed By: #### B MP, LIPA, LIVER, CMADM ####[facility] Onzrkrxmud3878 [place], [place] [address]Fgcjgy [place] Vital Signs Date Time Vital Sign Value Performing Clinician Facility 01-29-2024 15:18-0400 Body height 175.3 cm Deep Babb MD Work Phone: [facility] 01-29-2024 15:18-0400 Body mass index (BMI) [Ratio] 25.55 kg/m2 Deep Babb MD Work Phone: [facility] 01-29-2024 15:18-0400 Body weight 78.47 kg Deep Babb MD Work Phone: [facility] 01-29-2024 15:18-0400 Diastolic blood pressure 82 mm[Hg] Deep Babb MD Work Phone: [facility] 01-29-2024 15:18-0400 Heart rate 81 /min Deep Babb MD Work Phone: [facility] 01-29-2024 15:18-0400 SaO2% (BldA) [Mass fraction] 98 % Deep Babb MD Work Phone: [facility] 01-29-2024 15:18-0400 Systolic blood pressure 133 mm[Hg] Deep Babb MD Work Phone: [facility] 12-30-2023 08:06-0400 Body height 172.7 cm Deep Babb MD Work Phone: [facility] 12-30-2023 08:06-0400 Body mass index (BMI) [Ratio] 25.85 kg/m2 Deep Babb MD Work Phone: [facility] 12-30-2023 08:06-0400 Body weight 77.11 kg Deep Babb MD Work Phone: [facility] 12-30-2023 08:06-0400 Diastolic blood pressure 86 mm[Hg] Deep Babb MD Work Phone: [facility] 12-30-2023 08:06-0400 Heart rate 105 /min Deep Babb MD Work Phone: [facility] 12-30-2023 08:06-0400 SaO2% (BldA) [Mass fraction] 97 % Deep Babb MD Work Phone: [facility] 12-30-2023 08:06-0400 Systolic blood pressure 148 mm[Hg] Deep Babb MD Work Phone: [facility] 03-31-2023 16:45-0400 Body temperature 98.06 [degF] Ramón Carrizales [facility] 03-31-2023 16:45-0400 Diastolic blood pressure 86 mm[Hg] Ramón Carrizales [facility] 03-31-2023 16:45-0400 Heart rate 80 /min Ramón Carrizales [facility] 03-31-2023 16:45-0400 Respiratory rate 16 /min Ramón Carrizales [facility] 03-31-2023 16:45-0400 SaO2% (BldA) [Mass fraction] 98 % Ramón Carrizales [facility] 03-31-2023 16:45-0400 Systolic blood pressure 136 mm[Hg] Ramón Carrizales [facility] 09-30-2022 21:22-0500 Diastolic blood pressure 83 mm[Hg] Junior Idalmis [facility] 09-30-2022 21:22-0500 Heart rate 90 /min Junior Idalmis [facility] 09-30-2022 21:22-0500 Mean blood pressure 97 mm[Hg] Junior Idalmis [facility] 09-30-2022 21:22-0500 Respiratory rate 19 /min Junior Idalmis [facility] 09-30-2022 21:22-0500 SaO2% (BldA) [Mass fraction] 100 % Junior Idalmis [facility] 09-30-2022 21:22-0500 Systolic blood pressure 124 mm[Hg] Junior Idalmis [facility] 09-30-2022 20:01-0500 Body temperature 98.24 [degF] Junior Idalmis [facility] 09-30-2022 20:01-0500 Diastolic blood pressure 100 mm[Hg] Junior Idalmis [facility] 09-30-2022 20:01-0500 Heart rate 100 /min Junior Idalmis [facility] 09-30-2022 20:01-0500 Respiratory rate 18 /min Junior Idalmis [facility] 09-30-2022 20:01-0500 SaO2% (BldA) [Mass fraction] 99 % Junior Idalmis [facility] 09-30-2022 20:01-0500 Systolic blood pressure 133 mm[Hg] Junior Idalmis [facility] 08-11-2022 08:34-0500 Body temperature 97.59 [degF] Chavez Chirri DO Work Phone: [facility] [email or web address] 08-11-2022 08:34-0500 Diastolic blood pressure 86 mm[Hg] Chavez Chirri DO Work Phone: [facility] [email or web address] 08-11-2022 08:34-0500 Heart rate 70 /min Chavez Chirri DO Work Phone: [facility] [email or web address] 08-11-2022 08:34-0500 Respiratory rate 16 /min Chavez Chirri DO Work Phone: [facility] [email or web address] 08-11-2022 08:34-0500 SaO2% (BldA) [Mass fraction] 97 % Chavez Chirri DO Work Phone: [facility] [email or web address] 08-11-2022 08:34-0500 Systolic blood pressure 137 mm[Hg] Chavez Chirri DO Work Phone: [facility] [email or web address] 08-07-2022 15:24-0500 Body height 172.7 cm Chavez Chirri DO Work Phone: [facility] [email or web address] 08-07-2022 15:24-0500 Body mass index (BMI) [Ratio] 26.95 kg/m2 Chavez Chirri DO Work Phone: [facility] [email or web address] 08-07-2022 15:24-0500 Body weight 80.4 kg Chavez Chirri DO Work Phone: [facility] [email or web address] 02-02-2022 06:32-0400 Body temperature 98.01 [degF] Et3 [facility] [employer] 02-02-2022 06:32-0400 Diastolic blood pressure 82 mm[Hg] Et3 [facility] 02-02-2022 06:32-0400 Heart rate 96 /min Et3 [facility] 02-02-2022 06:32-0400 Respiratory rate 18 /min Et3 [facility] 02-02-2022 06:32-0400 SaO2% (BldA) [Mass fraction] 98 % [facility] 02-02-2022 06:32-0400 Systolic blood pressure 128 mm[Hg] Et3 [facility] [employer] Encounters Encounter Date Encounter Type Care Provider Facility Start: 02-01-2025 End: 02-03-2025 Refill Rafi Bernstein APRN.DRILLER HELPER Work Phone: Neurology Comment on above: Refill Request Start: 09-30-2024 End: 10-02-2024 [facility] EDUSceline Garcia PhD Work Phone: Neurology Comment on above: 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); Functional 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 Start: 09-11-2024 End: 09-14-2024 [facility] EDUSceline Garcia PhD Work Phone: Neurology Comment on above: 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) Start: 09-04-2024 End: 09-07-2024 [facility] EDUSceline Garcia PhD Work Phone: Neurology Comment on above: 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) Start: 08-28-2024 End: 08-28-2024 [facility] [employer] Ana Garcia PhD Work Phone: Neurology Comment on above: 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) Start: 08-21-2024 End: 08-24-2024 [facility] EDUSceline Garcia PhD Work Phone: Neurology Comment on above: 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) Start: 08-14-2024 End: 08-16-2024 [facility] EDUSceline Garcia PhD Work Phone: Neurology Comment on above: 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) Start: 08-07-2024 End: 08-10-2024 [facility] EDUSceline Garcia PhD Work Phone: Neurology Comment on [...] Refill Request Start: 06-30-2024 End: 06-30-2024 [facility] Ana Garcia PhD Work Phone: Neurology Comment on above: 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) Start: 06-02-2024 End: 06-02-2024 Telephone encounter Minerva MILLARD Neurology Comment on above: Social Work Services Start: 05-05-2024 End: 05-05-2024 ambulatory Doug Ellsworth APRN.DRILLER HELPER Work Phone: Neurology Comment on above: Psychogenic nonepile ptic seizure (Primary Dx); Seizure-like activity (HCC) Start: 05-05-2024 End: 05-05-2024 Telemedicine consultation with patient Doug Ellsworth APRN.DRILLER HELPER Work Phone: Neurology Start: 04-30-2024 End: 05-07-2024 [...] Start: 02-17-2024 End: 02-17-2024 ambulatory SHANDRA HIGGINS Facility:[facility] Start: 02-17-2024 End: 02-17-2024 Subsequent hospital [...] (Primary Dx) Start: 01-29-2024 End: 01-29-2024 ambulatory [facility] Facility:[facility] Start: 01-02-2024 Orders Only Shandra Yost Work Phone: Neurology Comment on above: Psychogenic nonepile ptic seizure (Primary Dx) Seizure (HCC) (Prima ry Dx) Start: 12-30-2023 End: 01-03-2024 ambulatory GIOVANI SANCHEZ Facility:[facility] Start: 12-30-2023 End: 12-30-2023 Patient encounter procedure Leah Zhu MD Work Phone: Neurology Comment on above: Seizure (HCC) (Prima ry Dx); Anxiety; Recurrent major depressive disorder, in partial remission (HCC) Start: 12-30-2023 End: 12-30-2023 ambulatory [facility] Facility:[facility] Start: 11-12-2023 Patient encounter procedure Kelly Sandoval MD Work Phone: Neurology Comment on above: Seizure (HCC) (Prima ry Dx) Start: 11-12-2023 Telephone encounter Kelly Sandoval MD Work Phone: Neurology Comment on above: Future Appointment ( [place], [place] ) Start: 03-31-2023 End: 03-31-2023 Emergency department patient visit Ramón Carrizales Facility:[facility] Start: 03-31-2023 End: 03-31-2023 Emergency department patient visit Ramón Carrizales [facility] Start: 09-30-2022 End: 09-30-2022 Emergency department patient visit Junior Raygoza Facility:[facility] Start: 09-30-2022 End: 09-30-2022 Emergency department patient visit Junior Raygoza [facility] Start: 09-23-2022 End: 09-23-[address] ORAL Trujillo Facility: Start: 09-13-2022 End: 09-13-2022 ambulatory CECILIA CONDE . Facility:[facility] Start: 08-07-2022 End: 08-11-2022 Evaluation and management of inpatient CHAVEZ CHIRRI [facility] Start: 08-07-2022 End: 08-11-2022 Evaluation and management of inpatient Chavez Rosa DO Work Phone: [facility] Renal//Med Surg Start: 06-15-2022 End: 06-16-[address] DOCTOR RAY Facility:[facility] Start: 06-11-2022 End: 06-11-2022 ambulatory EMELI CHI Facility:[facility] Start: 06-11-2022 End: 06-11-2022 ambulatory JOSIAH MAY Facility:[facility] Start: 06-10-2022 End: 06-10-2022 ambulatory JOSIAH MAY Facility:[facility] Start: 05-17-2022 End: 05-18-[address] DOCTOR RAY Facility:[facility] Start: 04-24-2022 End: 04-24-2022 ambulatory BRIAN MOON . Facility:[facility] Start: 04-12-2022 End: 04-12-2022 ambulatory Emeli Chi Facility:[facility] Start: 04-12-2022 End: 04-12-2022 Patient encounter procedure DENTAL FINANCIAL COORDINATOR-C Emeli Chi Work Phone: [facility] Start: 04-06-2022 End: 04-07-[address] DOCTOR RAY Facility:[facility] Start: 02-27-2022 End: 02-28-[address] LE OLVERA . Facility:[facility] Start: 02-27-2022 End: 02-27-2022 ambulatory JOSIAH MAY Facility:[facility] Start: 02-02-2022 End: 02-09-2022 ambulatory UNKNOWN PROVIDER [facility] Start: 02-02-2022 End: 02-02-2022 ambulatory [facility] Emergenc y Triage, Treat and Transport Start: 02-02-2022 End: 02-02-2022 Emergency department patient visit [facility] Emergency Triage, Treat and Transport Comment on above: Arrived Start: 12-30-2021 End: 12-31-2021 ambulatory JOSIAH MAY Facility:[facility] Start: 11-28-2021 End: 12-01-2021 ambulatory [facility] Start: 11-23-2021 Telephone encounter Won berger MD Work Phone: Urology Comment on above: Results Procedures Date Procedure Procedure Detail Performing Clinician Start: 08-07-2022 EEG VIDEO MONITORING Ka pari Waller PHILANTHROPY OFFICER - DRILLER HELPER Work Phone: Start: 08-07-2022 BASIC METABOLIC PANE L W/ REFLEX TO MG FOR LOW K Alexia Waller PHILANTHROPY OFFICER - DRILLER HELPER Work Phone: Start: 08-07-2022 Blood count complete auto&auto difrntl wbc Alexia Waller PHILANTHROPY OFFICER - DRILLER HELPER Work Phone: Cystoscopy Junior Raygoza Procedure on knee Junior scott Plan of Treatment Date Care Activity Detail Author Start: 2046 Shingles (RZV) Vacci ne (1 of 2) Shingles (RZV) Vaccine (1 of 2) [facility] Start: 03-29-2025 Influenza vaccination Influenza Vacc ine (#1) [facility] Start: 09-30-2024 End: 09-30-2024 ambulatory 09/30/2024 2:00 PM EST [facility] [address] [place] [address] Ana Gacria, PhD [address] [place] [address] [facility] Comment on above: pnes Start: 09-11-2024 End: 09-11-2024 ambulatory 09/11/2024 11:00 AM EST [facility] [address] [place] [address] Ana Garcia, PhD [address] [place] [address] [facility] Comment on above: pnes Start: 09-04-2024 End: 09-04-2024 ambulatory 09/04/2024 11:00 AM EST [facility] [address] [place] [address] Ana Garcia, PhD [address] [place] [address] [facility] Comment on above: pnes Start: 08-28-2024 End: 08-28-2024 ambulatory 08/28/2024 2:00 PM EST [facility] [address] [place] [address] Ana Garcia, PhD [address] [address] [facility] Comment on above: pnes Start: 08-21-2024 End: 08-21-2024 ambulatory 08/21/2024 2:00 PM EST [facility] [address] [place] [address] Ana Garcia, PhD [address] [place] [address] [facility] Comment on above: pnes Start: 08-14-2024 End: 08-14-2024 ambulatory 08/14/2024 2:00 PM EST [facility] [address] [place] [address] Ana Garcia, PhD [address] [facility] [place] [address] [facility] Neurology Comment on above: pnes Start: 08-07-2024 End: 08-07-2024 ambulatory 08/07/2024 2:00 PM EST [facility] [address] [place] [address] Ana Garcia, PhD [address] [facility] [place] [address] [facility] Neurology Comment on above: pnes Start: 07-31-2024 End: 07-31-2024 ambulatory 07/31/2024 2:00 PM EST [facility] [address] [place] [address] Ana Garcia, PhD [address] [place] [address] [facility] Neurology Comment on above: pnes Start: 07-07-2024 End: 07-07-2024 ambulatory 07/07/2024 1:00 PM EST [facility] [address] [facility] [place] [place] [address] Ana Garcia, PhD [address] [place] [address] [facility] Neurology Comment on above: pnes Start: 06-30-2024 End: 06-30-2024 ambulatory 06/30/2024 1:00 PM EST [facility] [address] [facility] [place] [address] Ana Garcia, PhD [address] [place] [address] [facility] Neurology Comment on above: pnes Start: 05-05-2024 End: 05-05-2024 Follow-up encounter 05/05/2024 1:30 PM EDT [facility] [address] [place] [address] Doug Ellsworth, PHILANTHROPY OFFICER.DRILLER HELPER [address] [place] [address] Follow Up Neurology Comment on above: Follow Up Start: 04-09-2024 End: 04-09-2024 ambulatory 04/09/2024 9:00 AM EDT [facility] [address] [place] [address] Neida Kee, PhD [address] [place] [address] Psychogenic nonepileptic seizure Neurology Comment on above: Psychogenic nonepile ptic seizure Start: 03-29-2024 Covid-19 Vaccine ( season) Covid-19 Vaccine ( season) [facility] Start: 03-29-2024 Influenza vaccination [facility] Start: 03-05-2024 End: 03-05-2024 Follow-up encounter 03/05/2024 10:00 AM EDT [facility] [address] [place] [address] Doug Ellsworth, PHILANTHROPY OFFICER.DRILLER HELPER [address] [place] [address] Follow Up Neurology Comment on above: Follow Up Start: 02-17-2024 End: 02-17-2024 Patient encounter procedure 02/17/2024 4:40 PM EDT Appointment Radiology [address] [place] [id number] Seizure Radiology Comment on above: Seizure Start: 02-17-2024 Subsequent hospital visit by physician 02/17/2024 4:40 PM EDT Hospital Encounter Radiology [address] [place] [id number] Seizure (HCC) [R56.9] Radiology Comment on above: Seizure (HCC) [R56.9 ] Start: 01-29-2024 End: 01-29-2024 Patient encounter procedure 01/29/2024 3:30 PM EDT Office Visit Neurology [address] [place] [address] Deep Babb MD [address] [facility] [address] [place] [address] Follow Up Neurology Comment on above: Follow Up Start: 09-10-2023 Covid-19 Vaccine ( season) Covid-19 Vaccine () [facility] Start: 07-29-2023 Behavioral Health Screening Behavioral Health Screening [facility] Start: 03-29-2023 Covid-19 Vaccine () Covid-19 Vaccine () [facility] Start: 11-16-2022 Depression Screen Depression Screen [facility] Start: 10-15-2022 End: 10-15-2022 Patient encounter procedure 10/15/2022 Office Visit Neurology Hans Granado MD [address] [place] [address] [place] [address] [facility] Start: 03-29-2022 Influenza vaccination INFLUENZ A (Season Ended) [facility] Start: 02-26-2022 Influenza vaccination [facility] Start: 11-04-2019 DTaP/Tdap/Td vaccine (7 - Tdap) DTaP/Tdap/Td vaccine (7 - Tdap) [facility] Start: 11-04-2019 Urine microalbumin profile DTaP,Tdap,Td Vaccine (7 - Tdap) [facility] Start: 2015 Urine microalbumin profile DTAP,TDAP,TD (1 - Tdap) [facility] Start: 2014 Anxiety Screening Anxiety Screening [facility] Start: 2014 Depression Screening Depression Scre ening [facility] Start: 2014 HEPATITIS C SCREENING HEPATITIS C SC REENING [facility] Start: 2014 [facility]atitis C screening [facility] Start: 2014 HIV SCREENING HIV SCREENING [facility] Start: 2014 HIV screening HIV Screening [facility] Start: 2014 Tetanus + diphtheria + acellular pertussis vaccine (product) Tdap Booster [facility] Start: 2011 [facility] Start: 2010 PEDS TO ADULT TRANSI TION ANNUAL ASSESSMENT PEDS TO ADULT TRANSITION ANNUAL ASSESSMENT [facility] Start: 2008 Adult depression screening assessment DEPRESSION SCREENING [facility] Start: 2008 PEDS TO ADULT TRANSI TION INITIAL DISCUSSION PEDS TO ADULT TRANSITION INITIAL DISCUSSION [facility] Start: 2007 HPV VACCINE (1 - Mal e 2-dose series) HPV VACCINE (1 - Male 2-dose series) [facility] Start: 2007 Vaccination for damir n papillomavirus Human Papilloma (HPV) Vaccine (1 - Male 2-dose series) [facility] Start: 2001 COVID-19 VACCINE (1) COVID-19 VACCIN E (1) [facility] Start: 2000 Varicella vaccine (2 of 2 - 2-dose childhood series) Varicella vaccine (2 of 2 - 2-dose childhood series) [facility] Start: 02-05-1997 COVID-19 Vaccine (#1) COVID-19 Vacci ne (#1) [facility] Start: 02-05-1997 Hepatitis B Vaccine (3 of 3 - 3-dose series) Hepatitis B Vaccine (3 of 3 - 3-dose series) [facility] End: 11-12-2024 EPIL EEG LEAD PLACEMENT EPIL EEG LEAD PLACEMENT NEUROLOGY Routine Seizure (HCC) 1 Occurrences starting 11/13/2023 until 11/12/2024 [facility] Work Phone: Comment on above: 1 Occurrences starti ng 11/13/2023 until 11/12/2024 EPIL VEEG ADMIT TO EMU/PMU EPIL VEEG ADMIT TO EMU/PMU NEUROLOGY Routine Seizure (HCC) Ordered: 11/13/2023 [facility] Work Phone: Comment on above: Ordered: 11/13/2023 End: 01-31-2025 MR Brain WO contrast MRI BRAIN WO IVCON Radiology Routine Seizure (HCC) 1 Occurrences starting 01/02/2024 until 01/31/2025 [facility] Work Phone: Comment on above: 1 Occurrences starti ng 01/02/2024 until 01/31/2025 MR Brain WO contrast MRI BRAIN W O IVCON Radiology Routine Seizure (HCC) 02/17/2024 8:39 PM EDT [facility] Work Phone: Oxygen therapy [[facility] Data Set] Initiate Oxygen Therapy Protocol Respiratory Care Routine Daily until discontinued starting 08/07/2022 [facility] Work Phone: Comment on above: Daily until disconti nued [facility]07[facility] P[facility] Date Payer Category Payer Medicaid [id number] 2022 Self-pay 2021 Unknown [facility] [place] MEDICAID [id number] 2021-Present [id number] 2018 Medicaid [place] [id number] 2018-Present [phone] [address] [place] [address] Medicaid [id number] 1996 Unknown [id number] [id number] 1996 Unknown [id number] 2.16.840.1.910622.3.579.2.173 1996 Unknown [id number] 2.16.840.1.189392.3.579.2.732 1996 Unknown [id number] 2.16.840.1.256459.3.579.2.593 1996 Unknown [id number] 2.16.840.1.201012.3.579.2.593 1996 Unknown [id number] 2.16.840.1.672644.3.579.2.593 1996 Unknown [id number] 2.16.840.1.125760.3.579.2.593 1996 Unknown [id number] 2.16.840.1.283434.3.579.2.593 1996 Unknown [id number] 2.16.840.1.704827.3.579.2.593 1996 Unknown [id number] 2.16.840.1.742189.3.579.2.593 1996 Unknown [id number] 2.16.840.1.411514.3.579.2.593 1996 Unknown [id number] 2.16.840.1.384873.3.579.2.593 1996 Unknown [id number] 2.16.840.1.872464.3.579.2.593 1996 Unknown [id number] 2.16.840.1.984541.3.579.2.593 1996 Unknown [id number] 2.16.840.1.164458.3.579.2.593 1996 Unknown [id number] 2.16.840.1.799197.3.579.2.593 1996 Unknown [id number] 2.16.840.1.213322.3.579.2.727 1996 Unknown [id number] 2.16.840.1.022527.3.579.2.727 1996 Unknown [id number] 2.16.840.1.943819.3.579.2.175 1959 Unknown [id number] Unknown [id number] 2.16.840.1.221332.3.579.2.531 Social History Date Type Detail Facility Start: 01-20-2021 End: 12-30-2023 Tobacco smoking status MNIS Never smoked tobacco [facility] Start: 01-20-2021 End: 12-30-2023 Tobacco use and exposure Smokeless tobacco non-user [facility] Start: 08-03-2021 End: 01-29-2024 Alcohol intake Ex-drinker (finding) [facility] Start: 1996 Sex Assigned At Not on file [facility] Start: 11-05-2021 End: 08-07-2022 Exposure to SARS-CoV-2 (event) Not sure [facility] Tobacco smoking status MNIS Tobacco smoking consumption unknown [facility] Start: 1996 Sex Assigned At Male F [facility] Start: 08-07-2022 Alcohol intake Lifetime non-d starr (finding) [facility] Work Phone: Tobacco smoking status Never [facility] Start: 08-03-2021 End: 12-30-2023 Sex Assigned At Male [facility] Start: 08-03-2021 End: 12-30-2023 History of Social function [facility] Functional Status Date Assessment Result Facility 01-03-2024 Are you deaf, or do you have serious difficulty hearing No 01/03/2024 6:50 AM Carlos Ashley RN No [facility] 01-03-2024 Are you blind, or do you have serious difficulty seeing, even when wearing glasses No 01/03/2024 6:50 AM Carlos Ashley RN No [facility] 01-03-2024 Do you have serious difficulty walking or climbing stairs No 01/03/2024 6:50 AM Carlos Ashley RN No [facility] 01-03-2024 Do you have difficul ty dressing or bathing No 01/03/2024 6:50 AM Carlos Ashley RN No [facility] 01-03-2024 Because of a physica l, mental, or emotional condition, do you have difficulty doing errands alone such as visiting a physician's office or shopping No 01/03/2024 6:50 AM EDT Carlos Ferrell RN No [facility] 03-31-2023 Functional Status N/A [facility] 09-30-2022 Functional Status N/A [facility] Mental Status Date Assessment Result Facility 01-03-2024 Because of a physica l, mental, or emotional condition, do you have serious difficulty concentrating, remembering, or making decisions No 01/03/2024 6:50 AM EDT Carlos Ferrell RN No [facility] Clinical Notes 08-31-2021 to 02-03-2025 Telephone [...] a day. Authorizing Provider: ROBYN BARTLETT PA-C [facility] 02-03-2025 Miscellaneous Notes The following approved medication requests have been transmitted electronically. Requested Prescriptions Signed Prescriptions Disp Refills lamoTRIgine (LAMICTAL) 200 mg tablet 180 tablet 1 Sig: Take 1 tablet by mouth two times a day. Authorizing Provider: ROBYN BARTLETT PA-C Prescription Refill: Requested by: pharmacy Please E-Scribe Caller Contact Number: [facility] Name: [place], [place] Pharmacy Number: [phone] Generic/ brand: generic 30 or 90 day supply requested: 90 Last appointment: 05/05/2024 Next Appointment: none Patient of Dr. Don Alonso III [id number] [address] [facility] [address] documented in this encounter [facility] 02-03-2025 Telephone encounter Note Prescription Refill: Requested by: pharmacy Please E-Scribe Caller Contact Number: [facility] Name: [place], [place] Pharmacy Number: [phone] Generic/ brand: generic 30 or 90 day supply requested: 90 Last appointment: 05/05/2024 Next Appointment: none Patient of Dr. Don Alonso III [id number] [address] [facility] [address] [facility] 10-02-2024 Note HNO ID: [id number] Author: ANA GARCIA, PhD Service: ? Author Type: Psychologist Type: Progress Notes Filed: 10/02/2024 13:56 Note Text: The pt was a no show. [facility] 10-02-2024 History of Presen t illness Narrative The pt was a no show. documented in this encounter [facility] 09-14-2024 Note HNO ID: [id number] Author: ANA GARCIA, PhD Service: ? Author Type: Psychologist Type: Progress Notes Filed: 09/14/2024 14:35 Note Text: No show [facility] 09-14-2024 History of Presen t illness Narrative No show documented in this encounter [facility] 09-07-2024 Note HNO ID: [id number] Author: ANA GARCIA, PhD Service: ? Author Type: Psychologist Type: Progress Notes Filed: 09/07/2024 02:45 Note Text: No show [facility] 09-07-2024 History of Presen t illness Narrative No show documented in this encounter [facility] 08-28-2024 Note HNO ID: [id number] Author: ANA GARCIA, PhD Service: ? Author Type: Psychologist Type: Progress Notes Filed: 08/28/2024 16:18 Note Text: No show [facility] 08-28-2024 History of Presen t illness Narrative No show documented in this encounter [facility] 08-24-2024 Note HNO ID: [id number] Author: ANA GARCIA, PhD Service: ? Author Type: Psychologist Type: Progress Notes Filed: 08/24/2024 12:51 Note Text: No show [facility] 08-24-2024 History of Presen t illness Narrative No show documented in this encounter [facility] 08-16-2024 Note HNO ID: [id number] Author: ANA GARCIA, PhD Service: ? Author Type: Psychologist Type: Progress Notes Filed: 08/16/2024 14:02 Note Text: No show. [facility] 08-16-2024 History of Presen t illness Narrative No show. documented in this encounter [facility] 08-10-2024 Note HNO ID: [id number] Author: ANA GARCIA, PhD Service: ? Author Type: Psychologist Type: Progress Notes Filed: 08/10/2024 14:15 Note Text: No show [facility] 08-10-2024 History of Presen t illness Narrative No show documented in this encounter [facility] 07-31-2024 Note HNO ID: [id number] Author: ANA GARCIA, PhD Service: ? Author Type: Psychologist Type: Progress Notes Filed: 07/31/2024 16:23 Note Text: No show [facility] 07-31-2024 History of Presen t illness Narrative No show documented in this encounter [facility] 07-28-2024 Telephone encounter Note The following approved medication requests have been transmitted electronically. Requested Prescriptions Signed Prescriptions Disp Refills lamoTRIgine (LAMICTAL) 200 mg tablet 180 tablet 1 Sig: Take 1 tablet by mouth two times a day. Authorizing Provider: RAFI BERNSTEIN APRN.CNP [facility] 07-28-2024 Miscellaneous Notes The following approved medication requests have been transmitted electronically. Requested Prescriptions Signed Prescriptions Disp Refills lamoTRIgine (LAMICTAL) 200 mg tablet 180 tablet 1 Sig: Take 1 tablet by mouth two times a day. Authorizing Provider: RAFI BERNSTEIN APRN.CNP Prescription Refill: Requested by: pharmacy Please E-Scribe Caller Contact Number: Pharmacy Name: [facility] Pharmacy Number: [phone] Generic/ brand: 30 or 90 day supply requested: 90 Last appointment: 05/05/24 Next Appointment: none Patient of Dr. Don Alonso III [phone] [address] [place] [address] documented in this encounter [facility] 07-28-2024 Telephone encounter Note Prescription Refill: Requested by: pharmacy Please E-Scribe Caller Contact Number: Pharmacy Name: [facility] Pharmacy Number: [phone] Generic/ brand: 30 or 90 day supply requested: 90 Last appointment: 05/05/24 Next Appointment: none Patient of Dr. Don Alonso III [id number] [address] [facility] [address] [facility] 06-30-2024 Note HNO ID: [id number] Author: ANA GARCIA, PhD Service: ? Author Type: Psychologist Type: Progress Notes Filed: 06/30/2024 17:12 Note Text: PSYCHOLOGY NOTE: Virtual visit This psychotherapy session was conducted virtually using ShepHertz/Attender. Consent related to virtual visit was provided verbally after information was read to patient. Current location: Home Emergency contact: On file S/O: This is a 28 year-old patient with nonepileptic seizures/conversion disorder in counseling for management of symptoms. 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 Consent related to virtual visit was provided verbally after information was read to patient. Current location: Home Emergency contact: On file S/O: This is a 28 year-old patient with nonepileptic seizures/conversion disorder in counseling for management of symptoms. 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 06-02-2024 Telephone encounter Note Copy of seizure workbook, mailed to patient home address. Tracking # [id number] [facility] 06-02-2024 Miscellaneous Notes Copy of seizure workbook, mailed to patient home address. Tracking # [id number] ADVICE CLERK received a consult from provider stating patient told them they cannot afford the PNES workbook, and is looking for assistance with this. ADVICE CLERK notes patient had initial assessment with Dr. Garcia and is beginning treatment in June 2024. ADVICE CLERK asked admin to send patient a copy of the workbook after confirming with patient the correct address. Will follow to assure this is sent to patient. documented in this encounter [facility] 06-02-2024 Telephone encounter Note ADVICE CLERK received a consult from provider stating patient told them they cannot afford the PNES workbook, and is looking for assistance with this. ADVICE CLERK notes patient had initial assessment with Dr. Garcia and is beginning treatment in June 2024. ADVICE CLERK asked admin to send patient a copy of the workbook after confirming with patient the correct address. Will follow to assure this is sent to patient. [facility] 05-05-2024 Note HNO ID: [id number] Author: DOUG ELLSWORTH APRN.DRILLER HELPER Service: ? Author Type: Nurse Practitioner Type: Progress Notes Filed: 05/06/2024 12:21 Note Text: [facility] VIRTUAL VISIT I have communicated my name and active licensure. The patient's identity and physical location were verified at the time of this visit. Either the patient or their legal event sales representative has been informed of the risks and benefits of -- and alternatives to -- treatment through a remote evaluation and consents to proceed with the evaluation remotely. Patient on video by himself. Moving around the room. Lives in [place], [place]. HISTORY OF PRESENT ILLNESS: Corey Alonso [...] have another worker also there. Works at [employer] in [place], [place]. Lives with his mom and a [...] types, medications, counseling, lifestyle, documentation. Doug Ellsworth, PHILANTHROPY OFFICER.DRILLER HELPER May 05, 2024 [facility] 05-05-2024 History of Presen t illness Narrative [facility] VIRTUAL VISIT I have communicated my name and active licensure. The patient's identity and physical location were verified at the time of this visit. Either the patient or their legal event sales representative has been informed of the risks and benefits of -- and alternatives to -- treatment through a remote evaluation and consents to proceed with the evaluation remotely. Patient on video by himself. Moving around the room. Lives in [place], [place]. HISTORY OF PRESENT ILLNESS: Corey Alonso [...] have another worker also there. Works at [employer] in [place], [place]. Lives with his mom and a [...] May 05, 2024 documented in this encounter [facility] 04-28-2024 Note HNO ID: [id number] Author: ANA GARCIA, PhD Service: ? Author Type: Psychologist Type: Progress Notes Filed: 04/28/2024 16:58 Note Text: [facility] INITIAL PSYCHOLOGY EVALUATION The [...] mild developmental delay, he was treated for PST SUPERVISOR infection with initial presentation but patient/family unsure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 PM * Kayden Collado, PHILANTHROPY OFFICER - DRILLER HELPER - 08/10/2022 10:43 AM EST Neurology Nurse [...] characterize her typical spells. Patient presented to [facility] on 08/07/2022 for inpatient LTME. HOSPITAL [...] to ensure the accuracy of this automated electrophysiology technician, some errors in electrophysiology technician may have occurred. Associated attestation - Chavez [...] characterize her typical spells. Patient presented to [facility] on 08/07/2022 for inpatient LTME. HOSPITAL [...] to ensure the accuracy of this automated electrophysiology technician, some errors in electrophysiology technician may have occurred. Associated attestation - Chavez [...] characterize her typical spells. Patient presented to [facility] on 08/07/2022 for inpatient LTME. HOSPITAL [...] to ensure the accuracy of this automated electrophysiology technician, some errors in electrophysiology technician may have occurred. * Tisha Peters - 08/07/2022 5:32 PM EST ALTM started [facility] [employer] Work Phone: 1(701) 473-807109-15-2022 NoteSperm Rapid ProgressiveSeptember 2021 9:00amTNPTest not performedAdams [facility] [address] [facility] [address]NpmsdnjorOhio Valley HospitalComment on above:Test not [id number] NoteSperm Non-ProgressiveSeptember 2021 9:00amTNPTest not performedAdams County [facility] [address] [facility] [address]WvmjzbwlqOhio Valley HospitalComment on above:Test not [id number] History of Present illness Narrative* Maritza Romo MD - 02/02/2022 6:12 AM EDT Images from the original note were not included. EMERGENCY TRIAGE, TREAT AND TRANSPORT (ET3) DOCUMENTATION OF TELEHEALTH VISIT Date / Time: 02/02/2022599 Name: Corey Alonso : 1995 SSN: [id number] EMS Agency: [facility] [x] Verbal consent obtained [] [...] by: Maritza Romo MD documented in this [id number] Miscellaneous Notes* Telephone Encounter - Won Huerta MD - 11/23/2021 5:27 PM EDT Called to discuss results Remains azoospermic - suspected obstructive process Discussed next steps - TESE with IVF He will consider this and let us know All questions answered RTC prn Won Huerta MD, PhD documented in [facility] NoteHNO ID: [id number] Author: Tung Macias MD Service: Anesthesiology Author Type: Anesthesiologist Type: Anesthesia Procedure Notes Filed: 09/01/2021 6:32 AM Note Text: ANESTHESIOLOGY PROCEDURE NOTE Airway General Information Procedure Start Time/Medication Administration: 08/31/2021 1:10 PM Patient location during procedure: OR Timeout Performed Pre-procedure: timeout performed Consent Obtained: Yes Patient identity confirmed: arm band and patient Staffing Anesthesiologist: Tung Macias MD CONSULTING ENGINEER: Rubi Javier APRN.CONSULTING ENGINEER Performed by: KARLA Indications and Patient Condition [...] no Airway not difficult SIGNATURE: Rubi Javier APRN.CONSULTING ENGINEER PATIENT NAME: Corey Alonso III DATE: August 31, 2021 TIME: 1:16 PM CSN: [id number] Community Hospital note* Diagnosis Seizure (HCC)- Primary Other convulsions documented in this encounter [facility] noteNo assessment information availableUniversity [facility]als [facility] Work Phone: Evaluation note* Diagnosis Partial symptomatic epilepsy with complex partial seizures, intractable, without status epilepticus (HCC)- Primary Seizure-like activity (HCC) Other convulsions documented in this encounter [facility] Work Phone: evaluation note* Diagnosis Seizure (HCC)- Primary Other convulsions documented in this encounter [facility] note* Diagnosis Seizure (HCC)- Primary Other convulsions Anxiety Anxiety state, unspecified Recurrent major depressive disorder, in partial remission (HCC) documented in this encounter [facility] note* Diagnosis Psychogenic nonepileptic seizure- Primary documented in this encounter [facility] note* Diagnosis Seizure (HCC)- Primary Other convulsions documented in this encounter [facility] note* Diagnosis Seizure-like activity (HCC)- Primary Other convulsions documented in this encounter [facility] note* Diagnosis Seizure-like activity (HCC)- Primary Other convulsions [facility]* Diagnosis Seizure (HCC) Other convulsions documented [facility] this [facility]* Diagnosis Pre-op evaluation- Primary Preoperative examination, unspecified Azoospermia Cryptogenic localization-related epilepsy (HCC) Localization-related (focal) (partial) epilepsy and epileptic syndromes with simple partial seizures, without mention of intractable epilepsy Psychogenic nonepileptic seizure [facility]* Diagnosis Pre-op evaluation- Primary Preoperative examination, unspecified Azoospermia Cryptogenic localization-related epilepsy (HCC) Localization-related (focal) (partial) epilepsy and epileptic syndromes with simple partial seizures, without mention of intractable epilepsy Psychogenic nonepileptic seizure- Primary Seizure-like activity (HCC) Other convulsions [facility]* Diagnosis Pre-op evaluation- Primary Preoperative examination, unspecified Azoospermia Cryptogenic localization-related epilepsy (HCC) Localization-related (focal) (partial) epilepsy and epileptic syndromes with simple partial seizures, without mention of intractable epilepsy Functional 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 Conversion disorder [facility]* Diagnosis Pre-op evaluation- Primary Preoperative examination, unspecified Azoospermia Cryptogenic localization-related epilepsy (HCC) Localization-related (focal) (partial) epilepsy and epileptic syndromes with simple partial seizures, without mention of intractable epilepsy Seizure-like activity (HCC) Other convulsions [facility]* Diagnosis Pre-op evaluation- Primary Preoperative examination, unspecified Azoospermia Cryptogenic localization-related epilepsy (HCC) Localization-related (focal) (partial) epilepsy and epileptic syndromes with simple partial seizures, without mention of intractable epilepsy Functional 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 Conversion disorder [facility]* Diagnosis Pre-op evaluation- Primary Preoperative examination, unspecified Azoospermia Cryptogenic localization-related epilepsy (HCC) Localization-related (focal) (partial) epilepsy and epileptic syndromes with simple partial seizures, without mention of intractable epilepsy Functional 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 Conversion disorder [facility]* Diagnosis Pre-op evaluation- Primary Preoperative examination, unspecified Azoospermia Cryptogenic localization-related epilepsy (HCC) Localization-related (focal) (partial) epilepsy and epileptic syndromes with simple partial seizures, without mention of intractable epilepsy Functional 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 Conversion disorder documented [facility]* Diagnosis Pre-op evaluation- Primary Preoperative examination, unspecified Azoospermia Cryptogenic localization-related epilepsy (HCC) Localization-related (focal) (partial) epilepsy and epileptic syndromes with simple partial seizures, without mention of intractable epilepsy 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* Diagnosis Pre-op evaluation- Primary Preoperative examination, unspecified Azoospermia Cryptogenic localization-related epilepsy (HCC) Localization-related (focal) (partial) epilepsy and epileptic syndromes with simple partial seizures, without mention of intractable epilepsy Seizure-like activity (HCC) Other convulsions [facility] Narrative No data available for this section [facility] No data available for this section [facility] HospitalReason for referral (narrative)* Outpatient Procedure (Routine) - Pending Review Specialty Diagnoses / Procedures Referred By Randy t Referred To Contact [facility] Diagnoses Seizure (HCC) Procedures EPIL EEG LEAD PLACEMENT EEG EXTENDED MONITORING 61-119 MINUTES ELECTROENCEPHALOGRAM REC COMA/SLEEP ONLY Shandra Berman APRN.CNP [address] [place] [address] Neurological [place] [address] [place] [address] Referral ID Status Reason Start Date Expiration Date Visits Requested Visits Authorized [id number] Pending Review Auto-Generat ed Referral 11/13/2023 11/12/2024 [address] [facility] Summary Purpose Family History No Family History Records FoundNo Family History Records FoundNo Family History Records FoundNo Family History Records FoundNo Family History Records FoundNo Family History Records FoundNo Family History Records FoundNo Family History Records FoundNo Family History Records Found Advance Directives Documents on File Type Date Recorded Patient [employer] Advance Directive(s) 07/17/2021 12:20 PM [...] STEM W/O CONTRAST MATERIAL Shandra Higgins PA-C [address] [place] [address] [place] [address] Referral ID Status Reason Start Date Expiration Date Visits Requested Visits Authorized [id number] Pending Review Auto-Generat ed Referral 01/02/2024 01/31/2025 1 1 Specialty Diagnoses / Procedures Referred By Randy t Referred To Contact Psychology Diagnoses Psychogenic nonepileptic seizure Procedures CONSULT TO PSYCHOLOGY OFFICE/OUTPATIENT NEW HIGH MDM 60 MINUTES Shandra Higgins PA-C [address] [place] [address] Referral ID Status Reason Start Date Expiration Date Visits Requested Visits Authorized [id number] Pending Review PCP Requested Referral 01/02/2024 01/01/2025 1 1 Additional Source Comments (unrecognized sect ion and content) No Status Records FoundNo Status Records FoundNo Status Records FoundNo Status Records FoundNo Status Records FoundNo Status Records FoundNo Status Records FoundNo Status Records FoundNo Status Records Found INFORMATION SOURCE (unrecogn ized section and content) DATE CREATED AUTHOR 01/22/2018 [facility] DATE CREATED AUTHOR AUTHOR'S ORGANIZ ATION 09/01/2021 [facility] DATE CREATED AUTHOR AUTHOR'S ORGANIZ ATION 12/05/2021 [facility] DATE CREATED AUTHOR AUTHOR'S ORGANIZ ATION 02/15/2022 [facility] DATE CREATED AUTHOR AUTHOR'S ORGANIZ ATION 04/27/2022 [facility] DATE CREATED AUTHOR AUTHOR'S ORGANIZ ATION 09/26/2022 [facility] DATE CREATED AUTHOR AUTHOR'S ORGANIZ ATION 03/31/2023 [facility] DATE CREATED AUTHOR AUTHOR'S ORGANIZ ATION 05/31/2023 [facility] DATE CREATED AUTHOR AUTHOR'S ORGANIZ ATION 10/04/2024 [facility] Source Comments (unrecognize d section and content) In the event this informatio n is protected by the Federal Confidentiality of Alcohol and Drug Abuse Patient Records regulations: The Federal rules restrict any use of the information to criminally investigate or prosecute any alcohol or drug abuse patient.[facility] HospitalIn the event this information is protected by the Federal Confidentiality of Alcohol and Drug Abuse Patient Records regulations: The Federal rules restrict any use of the information to criminally investigate or prosecute any alcohol or drug abuse patient.[facility] HospitalIn the event this information is protected by the Federal Confidentiality of Alcohol and Drug Abuse Patient Records regulations: The Federal rules restrict any use of the information to criminally investigate or prosecute any alcohol or drug abuse patient.[facility] HospitalIn the event this information is protected by the Federal Confidentiality of Alcohol and Drug Abuse Patient Records regulations: The Federal rules restrict any use of the information to criminally investigate or prosecute any alcohol or drug abuse patient.[facility] HospitalIn the event this information is protected by the Federal Confidentiality of Alcohol and Drug Abuse Patient Records regulations: The Federal rules restrict any use of the information to criminally investigate or prosecute any alcohol or drug abuse patient.[facility] HospitalIn the event this information is protected by the Federal Confidentiality of Alcohol and Drug Abuse Patient Records regulations: The Federal rules restrict any use of the information to criminally investigate or prosecute any alcohol or drug abuse patient.[facility] HospitalIn the event this information is protected by the Federal Confidentiality of Alcohol and Drug Abuse Patient Records regulations: The Federal rules restrict any use of the information to criminally investigate or prosecute any alcohol or drug abuse patient.[facility] HospitalIn the event this information is protected by the Federal Confidentiality of Alcohol and Drug Abuse Patient Records regulations: The Federal rules restrict any use of the information to criminally investigate or prosecute any alcohol or drug abuse patient.[facility] HospitalIn the event this information is protected by the Federal Confidentiality of Alcohol and Drug Abuse Patient Records regulations: The Federal rules restrict any use of the information to criminally investigate or prosecute any alcohol or drug abuse patient.[facility] HospitalIn the event this information is protected by the Federal Confidentiality of Alcohol and Drug Abuse Patient Records regulations: The Federal rules restrict any use of the information to criminally investigate or prosecute any alcohol or drug abuse patient.[facility] HospitalIn the event this information is protected by the Federal Confidentiality of Alcohol and Drug Abuse Patient Records regulations: The Federal rules restrict any use of the information to criminally investigate or prosecute any alcohol or drug abuse patient.[facility] HospitalIn the event this information is protected by the Federal Confidentiality of Alcohol and Drug Abuse Patient Records regulations: The Federal rules restrict any use of the information to criminally investigate or prosecute any alcohol or drug abuse patient.[facility] HospitalIn the event this information is protected by the Federal Confidentiality of Alcohol and Drug Abuse Patient Records regulations: The Federal rules restrict any use of the information to criminally investigate or prosecute any alcohol or drug abuse patient.[facility] HospitalIn the event this information is protected by the Federal Confidentiality of Alcohol and Drug Abuse Patient Records regulations: The Federal rules restrict any use of the information to criminally investigate or prosecute any alcohol or drug abuse patient.[facility] HospitalIn the event this information is protected by the Federal Confidentiality of Alcohol and Drug Abuse Patient Records regulations: The Federal rules restrict any use of the information to criminally investigate or prosecute any alcohol or drug abuse patient.[facility] HospitalIn the event this information is protected by the Federal Confidentiality of Alcohol and Drug Abuse Patient Records regulations: The Federal rules restrict any use of the information to criminally investigate or prosecute any alcohol or drug abuse patient.[facility] HospitalIn the event this information is protected by the Federal Confidentiality of Alcohol and Drug Abuse Patient Records regulations: The Federal rules restrict any use of the information to criminally investigate or prosecute any alcohol or drug abuse patient.[facility] HospitalIn the event this information is protected by the Federal Confidentiality of Alcohol and Drug Abuse Patient Records regulations: The Federal rules restrict any use of the information to criminally investigate or prosecute any alcohol or drug abuse patient.[facility] HospitalIn the event this information is protected by the Federal Confidentiality of Alcohol and Drug Abuse Patient Records regulations: The Federal rules restrict any use of the information to criminally investigate or prosecute any alcohol or drug abuse patient.[facility] HospitalIn the event this information is protected by the Federal Confidentiality of Alcohol and Drug Abuse Patient Records regulations: The Federal rules restrict any use of the information to criminally investigate or prosecute any alcohol or drug abuse patient.[facility] HospitalIn the event this information is protected by the Federal Confidentiality of Alcohol and Drug Abuse Patient Records regulations: The Federal rules restrict any use of the information to criminally investigate or prosecute any alcohol or drug abuse patient.[facility] HospitalIn the event this information is protected by the Federal Confidentiality of Alcohol and Drug Abuse Patient Records regulations: The Federal rules restrict any use of the information to criminally investigate or prosecute any alcohol or drug abuse patient.[facility] HospitalIn the event this information is protected by the Federal Confidentiality of Alcohol and Drug Abuse Patient Records regulations: The Federal rules restrict any use of the information to criminally investigate or prosecute any alcohol or drug abuse patient.[facility] HospitalIn the event this information is protected by the Federal Confidentiality of Alcohol and Drug Abuse Patient Records regulations: The Federal rules restrict any use of the information to criminally investigate or prosecute any alcohol or drug abuse patient.[facility] HospitalIn the event this information is protected by the Federal Confidentiality of Alcohol and Drug Abuse Patient Records regulations: The Federal rules restrict any use of the information to criminally investigate or prosecute any alcohol or drug abuse patient.[facility] HospitalIn the event this information is protected by the Federal Confidentiality of Alcohol and Drug Abuse Patient Records regulations: The Federal rules restrict any use of the information to criminally investigate or prosecute any alcohol or drug abuse patient.[facility] HospitalIn the event this information is protected by the Federal Confidentiality of Alcohol and Drug Abuse Patient Records regulations: The Federal rules restrict any use of the information to criminally investigate or prosecute any alcohol or drug abuse patient.[facility] Reason for Visit (unrecogniz ed section and content) Reason Comments Results Reason Comments Seizures Specialty Diagnoses / Procedures Referred By Contmilvia t Referred To Contact Diagnoses Partial symptomatic epilepsy with complex partial seizures, intractable, without status epilepticus (HCC) Seizure-like activity (HCC) partial symptomatic epilepsy w/ complex partial seizures intractable w/o status epilepticus needing LTME Chavez Lee DO [address] [facility] [address] [place] [address] [facility] [address] [place] [address] Referral ID Status Reason Start Date Expiration Date Visits Re quested Visits Authorized [id number] 1 1 Reason Comments Future Appointment [place], [place] Reason Comments New Patient Specialty Diagnoses / Procedures Referred By Contac t Referred To Contact HOSP INPATIENT Diagnoses Unspecified convulsions Procedures EEG PHYS/QHP EA INCR>12HR<26HR AFTER 24HR W/VEEG [facility] [address] [place] [address] Referral ID Status Reason Start Date Expiration Date Visits Re quested Visits Authorized [id number] 1 1 Reason Comments Other Reason Comments Established Patient Follow Up Reason Comments Seizures Reason Comments Medication Problem Lamotrigine Specialty Diagnoses / Procedures Referred By Contac t Referred To Contact MR IMAGING Diagnoses Seizure (HCC) Procedures MRI BRAIN WO IVCON MRI BRAIN BRAIN STEM W/O CONTRAST MATERIAL Shandra Higgins PA-C [address] [phone] Mr [facility] [place] [address] Referral ID Status Reason Start Date Expiration Date V isits Requested Visits Authorized [id number] Closed Auto-Generate d Referral 02/03/2024 03/04/2024 1 1 Reason Comments New Specialty Diagnoses / Procedures Referred By Contac t Referred To Contact Psychology Diagnoses Psychogenic nonepileptic seizure Procedures CONSULT TO PSYCHOLOGY OFFICE/OUTPATIENT NEW HIGH MDM 60 MINUTES Shandra Higgins PA-C [address] [phone] Referral ID Status Reason Start Date Expiration Date Visits Requested Visits Authorized [id number] Pending Review PCP Requested Referral 01/02/2024 01/01/2025 1 1 Reason Comments Follow Up Seizures Followup visit Reason Comments Social Work Services Reason Comments Refill Request Reason Comments Follow Up Care Teams (unrecognized sec tion and content) Metal Mover Relationship Specialty Start Date End Date Emeli Chi, GEGE [address] [place] [address] PCP - General Internal Medicine 07/17/21 Team Status: Inactive Member Role Status Dates TAQUERIA Courtney Primary Care Provider Active Derek Burks Attending Provider Active Team Status: Active Member Role Status Dates Emeli Norma Arti , DENTAL FINANCIAL COORDINATOR-C Primary Care Provider Active Metal Mover Relationship Specialty Start Date End Date Emeli Chi [address] [place] [address] PCP - General 11/16/21 Metal Mover Relationship Specialty Start Date End Date Emeli Chi CNP [address] [place] [address] PCP - General Internal Medicine 07/17/21 Metal Mover Relationship Specialty Start Date End Date Emeli Chi CNP [address] [place] [address] PCP - General Internal Medicine 07/17/21 Metal Mover Relationship Specialty Start Date End Date Emeli Chi CNP [address] [place] [address] PCP - General Internal Medicine 07/17/21 Metal Mover Relationship Specialty Start Date End Date Emeli Chi CNP [address] [place] [address] PCP - General Internal Medicine 07/17/21 Metal Mover Relationship Specialty Start Date End Date Emeli Chi CNP [address] [place] [address] PCP - General Internal Medicine 07/17/21 Metal Mover Relationship Specialty Start Date End Date Emeli Chi CNP [address] [place] [address] PCP - General Internal Medicine 07/17/21 Metal Mover Relationship Specialty Start Date End Date Eemli Chi CNP [address] [place] [address] PCP - General Internal Medicine 07/17/21 Metal Mover Relationship Specialty Start Date End Date Emeli Chi CNP [address] [place] [address] PCP - General Internal Medicine 07/17/21 Metal Mover Relationship Specialty Start Date End Date Emeli Chi CNP [address] [place] [address] PCP - General Internal Medicine 07/17/21 Metal Mover Relationship Specialty Start Date End Date Emeli hCi CNP [address] [place] [address] PCP - General Internal Medicine 07/17/21 Metal Mover Relationship Specialty Start Date End Date Emeli Chi CNP [address] [place] [address] PCP - General Internal Medicine 07/17/21 Metal Mover Relationship Specialty Start Date End Date Emeli Chi CNP [address] [place] [address] PCP - General Internal Medicine 07/17/21 Metal Mover Relationship Specialty Start Date End Date Emeli Chi CNP [address] [place] [address] PCP - General Internal Medicine 07/17/21 Metal Mover Relationship Specialty Start Date End Date Emeli Chi CNP [address] [facility] [place] [address] PCP - General Internal Medicine 07/17/21 Metal Mover Relationship Specialty Start Date End Date Emeli Chi CNP [address] [facility] [place] [address] PCP - General Internal Medicine 07/17/21 Metal Mover Relationship Specialty Start Date End Date Emeli Chi CNP [address] [place] [address] PCP - General Internal Medicine 07/17/21 Metal Mover Relationship Specialty Start Date End Date Emeli Chi CNP [address] [place] [address] PCP - General Internal Medicine 07/17/21 Metal Mover Relationship Specialty Start Date End Date Emeli Chi CNP [address] [place] [id number] PCP - General Internal Medicine 07/17/21 Metal Mover Relationship Specialty Start Date End Date Emeli Chi CNP [address] [place] [id number] PCP - General Internal Medicine 07/17/21 Metal Mover Relationship Specialty Start Date End Date Emeli Chi CNP [address] [place] [id number] PCP - General Internal Medicine 07/17/21 Metal Mover Relationship Specialty Start Date End Date Emeli Chi CNP [address] [place] [phone] PCP - General Internal Medicine 07/17/21 Goals [...] Brittaney Scott RN) 0634 (Given - Provider: Eil Michel RN) lamoTRIgine (LAMICTAL) tablet 200 mg [...] BE BASED ON THE PRIMARY CLINICAL RECORDS. [employer] provides no warranty or guarantee of the accuracy or completeness of information in this document.
--- OUTSIDE RECORDS SUMMARY | 2025-03-10 20:30 | XMS_ITS | Encounter Summary ---
Author Organization [facility] Address [address] [place] [address] Care Team Providers Care Fuel Tank Sealer And Tester Name Role Phone Emeli [place] Primary Care Provider + Source Comments In the event this information is protected by the Federal Confidentiality of Alcohol and Drug AbusePatient Records regulations: The Federal rules restrict any use of the information to criminally investigate or prosecute any alcohol or drug abuse patient.[facility] Encounter Details Date Type Department Care Team (Late st Contact Info) Description 02/15/2024 [place] [address] Provider, Ccf Questionnaire Submission Social History Tobacco [...] is lower risk 8 12/30/2023 Data from: https://www.neighborhoodatlas.medicine.[facility].edu/. Last address used for calculation [address] [address] 12/30/2023 Sex and Gender Information Value Date [...] on filedocumented in this encounter Care Teams Fuel Tank Sealer And Tester Relationship Specialty Start Date End Date Emeli Barber CNP [address] [place] [address] PCP - General Internal Medicine 07/17/21 documented as of this encounter
--- OUTSIDE RECORDS SUMMARY | 2025-03-10 20:30 | XMS_ITS | Clinical Summary ---
Author Organization [employer] [facility] tem Address [id number] [address] [place] [address] Care Team Providers Care Senior Corporate Recruiter Name Role Phone ElisabethEmeli Harinder HAND BOX COVERER-AUTO APPRENTICE MECHANIC Primary Care Provider Allergies No known active [...] on file Insurance [employer] Care Teams Senior Corporate Recruiter Relationship Specialty Start Date End Date Emeli Barber APRN-AUTO APPRENTICE MECHANIC [address] [facility], [place] [address] PCP - General Family Medicine 11/08/20
--- OUTSIDE RECORDS SUMMARY | 2025-03-10 20:30 | XMS_ITS | Clinical Summary ---
Author Organization [facility] Address [address], [address] [place] [address] Care Team Providers Care Trichologist Name Role Phone Emeli Barber ASSISTANT SALES CENTER MANAGER - MACHINING DEPARTMENT SUPERVISOR Primary Care Provide r Allergies No known active allergies Medications vilazodone hcl 10 MG TABS Take 1 tablet by mouth daily Active lamoTRIgine (LAMICTAL) 25 MG tablet TAKE 2 TABLETS BY MOUTH TWICE A DAY 120 tablet 03/01/20 25 Active OXcarbazepine (TRILEPTAL) 600 MG tablet TAKE 1 TABLET TWICE A DAY 60 tablet 2 03/04/20 25 Active levETIRAcetam (KEPPRA) 250 MG tablet TAKE 1 TABLET TWICE A DAY 60 tablet 2 03/04/20 25 Active lamoTRIgine (LAMICTAL) 200 MG tablet Take 1 tablet by mouth 2 times daily Give with two 25 mg tablets to equal 250 mg BID. 60 tablet 03/01/20 25 Active lamoTRIgine (LAMICTAL) 200 MG tablet Take 1 tablet by mouth 2 times daily 025 Discontinued(RE ORDER) OXcarbazepine (TRILEPTAL) 600 MG tablet TAKE ONE TABLET BY MOUTH TWICE A DAY 60 tablet 5 10/02/19 25 025 Discontinued levETIRAcetam (KEPPRA) 250 MG tablet Take 1 tablet by mouth 2 times daily 60 tablet 5 03/06 025 Discontinued lamoTRIgine (LAMICTAL) 25 MG tablet Take 2 tablets by mouth 2 times daily 60 tablet 1 01/29/20 025 Discontinued Active Problems Problem Noted Date Diagnosed Date Partial symptomatic epilepsy with complex partial seizures, intractable, without status epilepticus 08/07/2022 Seizure-like activity 08/07/2022 Encounters Date Type Department Care Team Description 02/28/2025 [facility] NEUROLOGY [address] [place] [address] Pankaj Scherer MD Medication Refill 02/19/2025 [facility] NEUROLOGY [address] [place] [address] Pankaj Scherer MD Medication Refill 01/28/2025 [facility] NEUROLOGY [address] [place] [address] Pankaj Scherer MD Medication Refill 01/25/2025 [facility] NEUROLOGY [address] [place] [address] Pankaj Scherer MD Medication Refill from Last [...] Description 03/11/2025 3:00 PM EDT Office Visit [facility] NEUROLOGY Part of [address] [place] [address] Pankaj Scherer MD [address] [place] [address] Dr [address] [place] [address] F/U from 09/08/24 Health Maintenance Due Date [...] age to complete this topic HPV vaccine (No Doses Required) Completed Hepatitis A vaccine Aged Out No longe r eligible based on patient's age to complete this topic Meningococcal B vaccine Aged Out No l onger eligible based on patient's age to complete this topic Pneumococcal 0-49 years Vaccine Aged Out No longer eligible based on patient's age to complete this topic Insurance [facility] Advance Directives * Full Code (Latest Code Status on File) Date Activated Date Inactivated Comments 08/07/2022 3:31 PM 08/11/2022 7:05 PM * Full Code Date Activated Date Inactivated Comments 08/07/2022 3:31 PM 08/07/2022 3:31 PM Care Teams Trichologist Relationship Specialty Start Date End Date Emeli Barber, BELL - MACHINING DEPARTMENT SUPERVISOR [address] [place] [address] PCP - General 11/16/21
--- OUTSIDE RECORDS SUMMARY | 2025-03-10 20:30 | XMS_ITS | Encounter Summary ---
Author Organization [facility] Address [address] [place], [place] [address] Care Team Providers Care Sheet Metal Smith Name Role Phone InocencioZander richards Armando DO Primary Care Provider + Emeli Barber CNP Primary Care Provider + Source Comments In the event this information is protected by the Federal Confidentiality of Alcohol and Drug AbusePatient Records regulations: The Federal rules restrict any use of the information to criminally investigate or prosecute any alcohol or drug abuse patient.[facility] Encounter Details Date Type Department Care Team (Late st Contact Info) Description 07/07/2021 Patient Msg Urology [address] [place], [place] [phone] Domi Scruggs MD [address] [place], [place] [address] next steps Social History Tobacco Use Types [...] N ot on file 01/20/2021 Data from: https://www.neighborhoodatlas.medicine.[facility].edu/. Last address used for [...] documented as of this encounter Care Teams Sheet Metal Smith Relationship Specialty Start Date End Date Zander Painter DO [address] [place] [address] PCP - General Family Medicine 03/29/17 07/16/21 Emeli Barber, CAMERA STORAGE CLERK [address] [place], [place] [address] [phone] PCP - General Internal Medicine 07/17/21 documented as of this encounter
--- OUTSIDE RECORDS SUMMARY | 2025-03-10 20:30 | XMS_ITS | Encounter Summary ---
Author Organization [facility] Address [id number] [address] [place] [address] Care Team Providers Care Studio Artist Name Role Phone Emeli Barber Harinder OVERLOCK WAISTLINE JOINER-INFRASTRUCTURE ENGINEER Primary Care Provider Reason for Visit * Reason Onset Date Comments Sooner appt 05/17/2021 Encounter Details Date Type Department Care Team (Late st Contact Info) Description 05/17/2021 Telephone [facility] Neurology [address] [place] [address] Jamila Crowe Sooner appt Social [...] from position. Please call patient back at [phone] documented in this encounter Plan of Treatment Not on file documented as of this encounter Visit Diagnoses Not on filedocumented in this encounter Care Teams Studio Artist Relationship Specialty Start Date End Date Emeli Barber, OVERLOCK WAISTLINE JOINER-INFRASTRUCTURE ENGINEER [address] [place] [address] PCP - General Family Medicine 11/08/20 documented as of this encounter
--- OUTSIDE RECORDS SUMMARY | 2025-03-10 20:30 | XMS_ITS | Encounter Summary ---
Author Organization [facility] Address [address], [address] [place] [address] Care Team Providers Care Grey Goods Examiner Name Role Phone Emeli Barber DIESEL MACHINIST - ENGINEERING PROJECT MANAGER Primary Care Provide r Reason for Visit * Reason Comments Medication Refill Encounter Details Date Type Department Care Team (Late st Contact Info) Description 02/19/2025 Refill [facility] NEUROLOGY Part of [address] [place] [address] Pankaj Scherer MD [address] [place] [address] Dr [address] [place] [address] Medication Refill Social History Tobacco Use Types [...] Visit [facility] NEUROLOGY Part of [address] [facility] [place] [address] Pankaj Scherer MD [address] [place] [address] [address] [place] [address] F/U from 09/08/24 documented as of this encounter Visit Diagnoses Not on filedocumented in this encounter Care Teams Grey Goods Examiner Relationship Specialty Start Date End Date Emeli Barber, BELL - ENGINEERING PROJECT MANAGER [address] [place] [address] [place] [address] PCP - General 11/16/21 documented as of this encounter
--- OUTSIDE RECORDS SUMMARY | 2025-03-10 20:30 | XMS_ITS | Encounter Summary ---
Author Organization [facility] Address [address] [place] [address] Care Team Providers Care Marketing Forecaster Name Role Phone Emeli Barber [facility] Primary Care Provider + Source Comments In the event this information is protected by the Federal Confidentiality of Alcohol and Drug AbusePatient Records regulations: The Federal rules restrict any use of the information to criminally investigate or prosecute any alcohol or drug abuse patient.[facility] Encounter Details Date Type Department Care Team (Late st Contact Info) Description 05/07/2024 Patient Msg Neurology [address] [place] [address] Virginie Moses, GAS METER READER.STOCK DIGGER [address] [place] [address] Workbook for CBT Social History [...] is lower risk 8 12/30/2023 Data from: https://www.neighborhoodatlas.medicine.[facility]/. Last address used for calculation [address] [...] on filedocumented in this encounter Care Teams Marketing Forecaster Relationship Specialty Start Date End Date Emeli Barber CNP [address] [place] [address] PCP - General Internal Medicine 07/17/21 documented as of this encounter
--- OUTSIDE RECORDS SUMMARY | 2025-03-10 20:30 | XMS_ITS | Encounter Summary ---
Author Organization [facility] Address [address], [address] [place] [address] Care Team Providers Care Lunch Wagon Operator Name Role Phone Emeli Barber BEHAVIORAL SPECIALIST - PRODUCT PLANNER Primary Care Provide r Reason for Visit * Reason Comments Medication Refill Encounter Details Date Type Department Care Team (Late st Contact Info) Description 02/28/2025 Refill [facility] NEUROLOGY Part of [address] [place] [address] Pankaj Scherer MD [address] [place] [address] [address] [place] [phone] Medication Refill Social History Tobacco Use Types [...] Visit [facility] NEUROLOG[facility] Part of [address] [place] [address] Pankaj Scherer MD [address] [place] [address] [address] [place] [address] F/U from 09/08/24 documented as of this encounter Visit Diagnoses Not on filedocumented in this encounter Care Teams Lunch Wagon Operator Relationship Specialty Start Date End Date Emeli Barber, BELL - PRODUCT PLANNER [address] [place] [address] [place] [address] PCP - General 11/16/21 documented as of this encounter
--- OUTSIDE RECORDS SUMMARY | 2025-03-10 20:30 | XMS_ITS | Encounter Summary ---
Author Organization [facility] Address [address] [place], [place] [address] Care Team Providers Care Rent And Housing Investigator Name Role Phone Inocencio, Zander Roberts DO [...] Contact Info) Description 05/25/2021 Patient Msg Urology [address] [place], [place] [phone] Domi Scruggs MD [address] [place], [place] [phone] genetic testing Social History Tobacco Use Types [...] ot on file 01/20/2021 Data from: https://www.neighborhoodatlas.medicine.[facility].edu/. Last address used for calculation Not [...] documented as of this encounter Care Teams Rent And Housing Investigator Relationship Specialty Start Date End Date Zander Painter DO [address] [place] [address] PCP - General Family Medicine 03/29/17 07/16/21 Emeli Barber CNP [address] [place] [address] PCP - General Internal Medicine 07/17/21 documented as of this encounter
--- OUTSIDE RECORDS SUMMARY | 2025-03-10 20:30 | XMS_ITS | Clinical Summary ---
Author Organization [facility] Address [address] [place] [address] Care Team Providers Care Data Miner Name Role Phone Emeli Barber CNP Primary Care Provider [phone] Allergies No known active allergies Medications OXcarbazepine [...] times a day. 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 Last address used for calculation [...] 11/04/2019 11/03/2009, 08/07/2001, 11/25/1997, Additional history exists HPV Vaccine (1 - 3-dose SCDM series) 2023 Influenza Vaccine (#1) 2025 Insurance [facility] MEDICAID Care Teams Data Miner Relationship Specialty Start Date End Date Emeli Barber CNP [address] [place] [address] PCP - General Internal Medicine 07/17/21
--- OUTSIDE RECORDS SUMMARY | 2025-03-10 20:30 | XMS_ITS | Encounter Summary ---
Author Organization [facility] Address [address] [place] [address] Care Team Providers Care Nurse School Name Role Phone Emeli Barber [place] Primary Care Provider + Source Comments In the event this information is protected by the Federal Confidentiality of Alcohol and Drug AbusePatient Records regulations: The Federal rules restrict any use of the information to criminally investigate or prosecute any alcohol or drug abuse patient.[facility] Encounter Details Date Type Department Care Team ([facility] st Contact Info) Description 04/06/2024 Patient Msg Neurology [address] [place] [address] Provider, Ccf Appointment change Social [...] is lower risk 8 12/30/2023 Data from: https://www.neighborhoodatlas.medicine.[facility].edu/. Last address used for calculation [address] [facility] 12/30/2023 Sex and Gender Information [...] on filedocumented in this encounter Care Teams Nurse School Relationship Specialty Start Date End Date Emeli Barber CNP [address] [place] [address] PCP - General Internal Medicine 07/17/21 documented as of this encounter
--- OUTSIDE RECORDS SUMMARY | 2025-03-10 20:30 | XMS_ITS | Encounter Summary ---
Author Organization [facility] Address [facility] [place] [address] Care Team Providers Care Waste Disposal Attendant Name Role Phone Emeli Barber [place] Primary Care Provider + Source Comments In the event this information is protected by the Federal Confidentiality of Alcohol and Drug AbusePatient Records regulations: The Federal rules restrict any use of the information to criminally investigate or prosecute any alcohol or drug abuse patient.[facility] Encounter Details Date Type Department Care Team (Late st Contact Info) Description 06/22/2024 Patient Msg Neurology [address] [place], [place] [phone] Provider, Ccf Mumtaz Appointment Cancelation Social History [...] is lower risk 8 12/30/2023 Data from: https://www.neighborhoodatlas.[facility]/. Last address used for calculation [address] [...] on filedocumented in this encounter Care Teams Waste Disposal Attendant Relationship Specialty Start Date End Date Emeli Barber CNP [address] [place] [address] PCP - General Internal Medicine 07/17/21 documented as of this encounter
--- NOTE | 2025-03-10 20:51 | CT_ITS ---
[address] [address] Patient Name: COREY LOPEZ MRN: [id number] date: 1995 Sex: M Assigned Patient Location: ER Current Patient Location: ED.MAIN Accession/Order Number: [id number] Exam Date: 03/10/2025 22:31 Report Date: 03/10/2025 22:35 At the request of: JENARO GALEAS Procedure: CT head/brain wo con Unenhanced head CT TECHNIQUE: Contiguous axial imaging of the head. The CT exam was performed using one or more the following dose reduction techniques: Automated exposure control, adjustment of the MA and/or Kv according to patient size, or use of the iterative reconstruction technique. COMPARISON: 10/27/2023 HISTORY: Breakthrough seizures VENTRICLES: Within normal limits ATROPHY: None BRAIN PARENCHYMA: Adequate brooks-white matter differentiation identified. HEMORRHAGE: None HERNIATION: No mass effect or herniation INFARCTION: No recent vascular distribution infarction is seen. EXTRA-AXIAL FLUID COLLECTIONS None MIDBRAIN: Unremarkable JONE: Unremarkable MEDULLA: Unremarkable SINUSES: Unremarkable ORBITS: Grossly unremarkable MASTOIDS: Unremarkable BONY STRUCTURES Intact ADDITIONAL FINDINGS: CT/CT head/brain wo con IMPRESSION: No acute findings. Impression dictated by: Rico Lipscomb M.D. 03/10/2025 10:35 PM Dictation Location: [place] [address] Electronically authenticated by: [id number] Y Date: 03/10/2025 22:35
--- NOTE | 2025-03-10 20:51 | ECG_ITS ---
[facility] Test Date: 2025-03-10 Pat Name: COREY LOPEZ Department: Room: - Gender: Male Yarn Handler: : 1995 Requested By: [id number] Order Number: [id number] Reading MD: MIGUEL BUNCH M.D. Measurements Intervals [place] Rate: 66 P: 58 RI: 154 QRS: 44 QRSD: 96 T: 41 QT: 370 QTc: 383 Interpretive Statements 1100 Sinus rhythm 9110 normal ECG Compared to ECG 02/02/2025 21:58:49 Incomplete right bundle-branch block no longer present Electronically Signed On 03-11-2025 19:25:38 EDT by MIGUEL BUNCH M.D.
--- NOTE | 2025-03-10 21:06 | ED.GENADUL1 ---
Documented by User: GUDELIA Lindsey 03/10/25 22:02 HPI HPI - General Adult General Chief complaint: Seizure Stated complaint: SEIZURES Time Seen by Provider: 03/10/25 20:28 Source: patient Mode of arrival: Wheelchair History of Present Illness HPI narrative: Patient is a 29-year-old male with a PMH of epilepsy that presents to the emergency department via private vehicle with family friends with complaints of a 3 breakthrough seizures today. His medications he takes to manage his seizures are Lamictal, Keppra, and oxcarbazepine. His friend states that usually his postictal phase will last about 5 minutes but the third seizure today the postictal phase was longer and he was very confused afterwards and not oriented to some of his family or place. He denies any trauma prior to the seizures and the family friend bedside states that there was no trauma during the seizures. There is no tongue biting, loss of bowel or bladder. Patient arrives to triage alert and oriented x 3, in no distress, denies paresthesias or weakness to his extremities. He denies any recent fever or infections. He has been taking his medication as prescribed. He does see a neurologist , Dr Scherer, in [place] but states that it has been maybe a year since he was evaluated. He did not follow-up with this physician after his last ED visit for breakthrough seizure in January. He was having grand mal seizures in January apparently. He has not had a CT scan of his head or MRI brain in over a year. Related Data Home Medications ?Medication ?Instructions ?Recorded ?Confirmed oxcarbazepine 600 mg tablet 600 mg PO BID 02/05/23 02/18/25 lamotrigine 25 mg tablet 50 mg PO BID 10/10/24 02/18/25 levetiracetam 250 mg tablet 250 mg PO BID 10/10/24 02/18/25 omeprazole 20 mg capsule,delayed 20 mg PO .before meal 10/10/24 02/18/25 release vilazodone 20 mg tablet 20 mg PO .once daily 10/10/24 02/18/25 Allergies Allergy/AdvReac Type Severity Reaction Status Date / Time No Known Drug Allergies Allergy Verified 02/18/25 23:37 Opioid HPI Opioid Management Most Recent Opioid Data: Last Pain Scale 6 01/11/25, 17:19 Ur Phencyclidine Scrn, (NEGATIVE) Negative Today, 23:15 Review of Systems ROS Status of ROS 10 or more systems reviewed and unremarkable except as noted in history and below [facility] Medical History (Updated 03/10/25 @ 21:55 by GUDELIA Lindsey) Epilepsy ?G40.909 - Epilepsy, unspecified, not intractable, without status epilepticus (ICD-10) Social History Smoking status: Unknown if ever smoked Little interest or pleasure in doing things: not at all Feeling down, depressed, or hopeless: not at all Exam Narrative Exam Narrative: General: No distress, age-appropriate Skin: Warm, dry, no pallor. No rash. Head: Normocephalic, atraumatic. Neck: Supple, non-tender. Eye: Pupils are equal, round and EOMI. No scleral icterus. Ears, Nose, Mouth, and Throat: No nasal mucosal hypertrophy. Oral mucosa is moist, no posterior oropharynx erythema, uvula is mid-line Cardiovascular: Regular Rate and Rhythm without murmur, gallop or rub. Respiratory: No accessory muscle use or respiratory distress. Lungs are clear to auscultation, no wheezing, rales or rhonchi Chest Wall: no tenderness Back: No midline thoracic or lumbar vertebral tenderness. Musculoskeletal: Full ROM of all extremities, no calf or popliteal tenderness GI: Abdomen is soft, non-distended, non tender to palpation. No masses appreciated. No rebound, guarding, or rigidity noted. Neurological: A&O x4. No cranial nerve dysfunction observed. No truncal ataxia. Moves all extremities. Sensation intact. Psychiatric: Cooperative and interactive. Normal mood and affect. Constitutional Vital Signs, click to edit/add: Last Vital Signs Temp 98.3 F 03/10/25 20:27 Pulse 76 03/10/25 20:27 Resp 18 03/10/25 20:27 BP 132/88 03/10/25 20:27 Pulse Ox 99 03/10/25 20:39 O2 Del Method Room Air 03/10/25 20:39 Course Vital Signs Vital signs: Vital Signs Temperature 98.3 F 03/10/25 20:27 Pulse Rate 76 03/10/25 20:27 Respiratory Rate 18 03/10/25 20:27 Blood Pressure 132/88 03/10/25 20:27 Pulse Oximetry 99 03/10/25 20:27 Oxygen Delivery Method Room Air 03/10/25 20:27 Temperature 98.3 F 03/10/25 20:27 Pulse Rate 76 03/10/25 20:27 Respiratory Rate 18 03/10/25 20:27 Blood Pressure 132/88 03/10/25 20:27 Pulse Oximetry 99 03/10/25 20:39 Oxygen Delivery Method Room Air 03/10/25 20:39 Medical Decision Making [facility] Narrative Medical decision making narrative: 29-year-old male well-known to the emergency department presents today with 3 breakthrough seizures. No trauma prior to or during the seizures. The last seizure caused severe confusion for patient per his friends but he eventually became alert and oriented again. CT head, EKG, and labs ordered. Vital stable on arrival with patient. Patient afebrile. White count normal on CBC. Electrolytes within normal limits. No neurological deficits on exam, no signs of trauma, patient alert and oriented x 3. CT head read pending, urine drug screen pending and at this time, 0, patient was signed out to Dr. Jones. I did encourage patient and his family friends at bedside to make a follow-up appointment with his neurologist in [place]. Differential Diagnosis Differential Diagnosis: Breakthrough seizure, infection, hyponatremia, hyper/hypoglycemia Medical Records Medical records reviewed: Yes I reviewed the patient's medical records Medical records narrative: I did review patient's emergency department records from the last year showing that he has had frequent breakthrough seizures more recently. He has not followed up with his neurologist in close to a year. Lab Data Lab results reviewed: Yes I reviewed the patient's lab results Lab results narrative: CBC, BMP, UA, urine drug screen, EtOH level ordered. Normal white count, electrolytes all within normal limits. Glucose 111. Urine drug screen pending. EtOH negative. Labs: Lab Results 03/10/25 03/10/25 Range/Units 21:07 23:15 WBC 6.6 (4.0-11.0) 10^3/uL RBC 5.33 (4.70-6.10) 10^6/uL Hgb 15.2 (14.0-18.0) g/dL Hct 43.5 (42.0-54.0) % MCV 81.6 (80.0-94.0) fL MCH 28.5 (25.9-34.0) pg MCHC 34.9 (29.9-35.2) g/dL RDW 12.4 (11.0-15.0) % Plt Count 207 (150-450) 10^3/uL MPV 9.1 L (9.5-13.5) fL Neut % (Auto) 75.1 H (43.0-75.0) % Lymph % (Auto) 18.0 L (20.5-60.0) % Luce % (Auto) 5.8 (1.7-12.0) % Eos % (Auto) 0.3 L (0.9-7.0) % Baso % (Auto) 0.5 (0.2-2.0) % Neut # (Auto) 4.9 (1.4-6.5) 10^3/uL Lymph # (Auto) 1.2 (1.2-3.8) 10^3/uL Luce # (Auto) 0.4 (0.3-0.8) 10^3/uL Eos # (Auto) 0.0 (0.0-0.7) 10^3/uL Baso # (Auto) 0.0 (0.0-0.1) 10^3/uL Abs Immat Gran (auto) 0.02 (0.00-0.03) 10^3/uL Imm/Tot Granulo (auto) 0.3 (0.0-0.5) % Sodium 138 (136-145) mmol/L Potassium 4.3 (3.5-5.1) mmol/L Chloride 103 (98-107) mmol/L Carbon Dioxide 31.0 (21.0-32.0) mmol/L Anion Gap 8.3 BUN 12.0 (7.0-18.0) mg/dL Creatinine 1.02 (0.70-1.30) mg/dL Est GFR ( Amer) >60 (>=60 mL/min/1.73m^2) Est GFR (Non-Af Amer) >60 (>=60 mL/min/1.73m^2) BUN/Creatinine Ratio 11.8 Glucose 111 H (74-106) mg/dL Calcium 9.5 (8.5-10.1) mg/dL Urine Color Lt. yellow (YELLOW) Urine Clarity Clear (CLEAR) Urine pH 7.0 (5.0-9.0) Ur Specific Maury 1.010 (1.005-1.025) Urine Protein Negative (NEG/TRACE) mg/dL Urine Glucose (UA) Negative (NEGATIVE) mg/dL Urine Ketones Negative (NEGATIVE) mg/dL Urine Occult Blood Negative (NEGATIVE) Urine Nitrite Negative (NEGATIVE) Urine Bilirubin Negative (NEGATIVE) Urine Urobilinogen 1.0 (0.2-1.0) EU/dL Ur Leukocyte Esterase Negative (NEGATIVE) Urine RBC None seen (0-2) #/HPF Urine WBC None seen (NONE SEEN) #/HPF Ur Squamous Epith Cells None seen (NONE/RARE) #/LPF Urine Crystals None seen (None Seen) #/HPF Urine Bacteria None seen (NONE SEEN) #/HPF Urine Casts None seen (NONE SEEN) #/LPF Urine Mucus None seen (NONE SEEN) Ur Culture Indicated? No Urine Opiates Screen Negative (NEGATIVE) Ur Buprenorphine Scrn Negative (NEGATIVE) Ur Oxycodone Screen Negative (NEGATIVE) Urine Methadone Screen Negative (NEGATIVE) Ur Barbiturates Screen Negative (NEGATIVE) U Tricyclic Antidepress Negative (NEGATIVE) Ur Phencyclidine Scrn Negative (NEGATIVE) Ur Amphetamines Screen Negative (NEGATIVE) U Methamphetamines Scrn Negative (NEGATIVE) U Benzodiazepines Scrn Negative (NEGATIVE) Urine Cocaine Screen Negative (NEGATIVE) U Cannabinoids Screen Negative (NEGATIVE) Ethanol Quant <3 mg/dL ECG Data Attestation: ?I have reviewed the pertinent ECG results. Discharge Plan Discharge Chief Complaint: Seizure Clinical Impression: Breakthrough seizure Patient Disposition: Home, Self-Care Condition: Good Mode of Transportation: Private Vehicle Prescriptions / Home Meds: No Action oxcarbazepine 600 mg tablet 600 mg PO BID lamotrigine 25 mg tablet 50 mg PO BID levetiracetam 250 mg tablet 250 mg PO BID omeprazole 20 mg capsule,delayed release(DR/EC) 20 mg PO .before meal vilazodone 20 mg tablet 20 mg PO .once daily Print Language: Congolese Instructions: Epilepsy (ED) Additional Instructions: contact your neurologist tomorrow as discussed Referrals: MANNY CHI [Primary Care Provider, Family Practice] - 1 week Pankaj Scehrer MD [Non-Staff] - As soon as possible Referral Note: Call for follow-up after discharge to schedule. Documented by User: Jared Jones MD 03/10/25 23:50 HPI HPI - General Adult General Chief complaint: Seizure Stated complaint: SEIZURES Time Seen by Provider: 03/10/25 20:28 Related Data Home Medications ?Medication ?Instructions ?Recorded ?Confirmed oxcarbazepine 600 mg tablet 600 mg PO BID 02/05/23 02/18/25 lamotrigine 25 mg tablet 50 mg PO BID 10/10/24 02/18/25 levetiracetam 250 mg tablet 250 mg PO BID 10/10/24 02/18/25 omeprazole 20 mg capsule,delayed 20 mg PO .before meal 10/10/24 02/18/25 release vilazodone 20 mg tablet 20 mg PO .once daily 10/10/24 02/18/25 Allergies Allergy/AdvReac Type Severity Reaction Status Date / Time No Known Drug Allergies Allergy Verified 02/18/25 23:37 Opioid HPI Opioid Management Most Recent Opioid Data: Last Pain Scale 6 01/11/25, 17:19 Ur Phencyclidine Scrn, (NEGATIVE) Negative Today, 23:15 PFSH PFSH Medical History (Updated 03/10/25 @ 21:55 by GUDELIA Lindsey) Epilepsy ?G40.909 - Epilepsy, unspecified, not intractable, without status epilepticus (ICD-10) Social History Smoking status: Unknown if ever smoked Little interest or pleasure in doing things: not at all Feeling down, depressed, or hopeless: not at all Exam Constitutional Vital Signs, click to edit/add: Last Vital Signs Temp 98.3 F 03/10/25 20:27 Pulse 76 03/10/25 20:27 Resp 18 03/10/25 20:27 BP 132/88 03/10/25 20:27 Pulse Ox 99 03/10/25 20:39 O2 Del Method Room Air 03/10/25 20:39 Course Vital Signs Vital signs: Vital Signs Temperature 98.3 F 03/10/25 20:27 Pulse Rate 76 03/10/25 20:27 Respiratory Rate 18 03/10/25 20:27 Blood Pressure 132/88 03/10/25 20:27 Pulse Oximetry 99 03/10/25 20:27 Oxygen Delivery Method Room Air 03/10/25 20:27 Temperature 98.3 F 03/10/25 20:27 Pulse Rate 76 03/10/25 20:27 Respiratory Rate 18 03/10/25 20:27 Blood Pressure 132/88 03/10/25 20:27 Pulse Oximetry 99 03/10/25 20:39 Oxygen Delivery Method Room Air 03/10/25 20:39 Medical Decision Making MDM Narrative Medical decision making narrative: 29-year-old male well-known to the emergency department presents today with 3 breakthrough seizures. No trauma prior to or during the seizures. The last seizure caused severe confusion for patient per his friends but he eventually became alert and oriented again. CT head, EKG, and labs ordered. Vital stable on arrival with patient. Patient afebrile. White count normal on CBC. Electrolytes within normal limits. No neurological deficits on exam, no signs of trauma, patient alert and oriented x 3. CT head read pending, urine drug screen pending and at this time, 0, patient was signed out to Dr. Jones. I did encourage patient and his family friends at bedside to make a follow-up appointment with his neurologist in [place]. labs and CT brain return [facility] acute findings. Patient and his family informed of the above . Mother states she will contact neurology tomorrow Lab Data Labs: Lab Results 03/10/25 03/10/25 Range/Units 21:07 23:15 WBC 6.6 (4.0-11.0) 10^3/uL RBC 5.33 (4.70-6.10) 10^6/uL Hgb 15.2 (14.0-18.0) g/dL Hct 43.5 (42.0-54.0) % MCV 81.6 (80.0-94.0) fL MCH 28.5 (25.9-34.0) pg MCHC 34.9 (29.9-35.2) g/dL RDW 12.4 (11.0-15.0) % Plt Count 207 (150-450) 10^3/uL MPV 9.1 L (9.5-13.5) fL Neut % (Auto) 75.1 H (43.0-75.0) % Lymph % (Auto) 18.0 L (20.5-60.0) % Luce % (Auto) 5.8 (1.7-12.0) % Eos % (Auto) 0.3 L (0.9-7.0) % Baso % (Auto) 0.5 (0.2-2.0) % Neut # (Auto) 4.9 (1.4-6.5) 10^3/uL Lymph # (Auto) 1.2 (1.2-3.8) 10^3/uL Luce # (Auto) 0.4 (0.3-0.8) 10^3/uL Eos # (Auto) 0.0 (0.0-0.7) 10^3/uL Baso # (Auto) 0.0 (0.0-0.1) 10^3/uL Abs Immat Gran (auto) 0.02 (0.00-0.03) 10^3/uL Imm/Tot Granulo (auto) 0.3 (0.0-0.5) % Sodium 138 (136-145) mmol/L Potassium 4.3 (3.5-5.1) mmol/L Chloride 103 (98-107) mmol/L Carbon Dioxide 31.0 (21.0-32.0) mmol/L Anion Gap 8.3 BUN 12.0 (7.0-18.0) mg/dL Creatinine 1.02 (0.70-1.30) mg/dL Est GFR ( Amer) >60 (>=60 mL/min/1.73m^2) Est GFR (Non-Af Amer) >60 (>=60 mL/min/1.73m^2) BUN/Creatinine Ratio 11.8 Glucose 111 H (74-106) mg/dL Calcium 9.5 (8.5-10.1) mg/dL Urine Color Lt. yellow (YELLOW) Urine Clarity Clear (CLEAR) Urine pH 7.0 (5.0-9.0) Ur Specific Maury 1.010 (1.005-1.025) Urine Protein Negative (NEG/TRACE) mg/dL Urine Glucose (UA) Negative (NEGATIVE) mg/dL Urine Ketones Negative (NEGATIVE) mg/dL Urine Occult Blood Negative (NEGATIVE) Urine Nitrite Negative (NEGATIVE) Urine Bilirubin Negative (NEGATIVE) Urine Urobilinogen 1.0 (0.2-1.0) EU/dL Ur Leukocyte Esterase Negative (NEGATIVE) Urine RBC None seen (0-2) #/HPF Urine WBC None seen (NONE SEEN) #/HPF Ur Squamous Epith Cells None seen (NONE/RARE) #/LPF Urine Crystals None seen (None Seen) #/HPF Urine Bacteria None seen (NONE SEEN) #/HPF Urine Casts None seen (NONE SEEN) #/LPF Urine Mucus None seen (NONE SEEN) Ur Culture Indicated? No Urine Opiates Screen Negative (NEGATIVE) Ur Buprenorphine Scrn Negative (NEGATIVE) Ur Oxycodone Screen Negative (NEGATIVE) Urine Methadone Screen Negative (NEGATIVE) Ur Barbiturates Screen Negative (NEGATIVE) U Tricyclic Antidepress Negative (NEGATIVE) Ur Phencyclidine Scrn Negative (NEGATIVE) Ur Amphetamines Screen Negative (NEGATIVE) U Methamphetamines Scrn Negative (NEGATIVE) U Benzodiazepines Scrn Negative (NEGATIVE) Urine Cocaine Screen Negative (NEGATIVE) U Cannabinoids Screen Negative (NEGATIVE) Ethanol Quant <3 mg/dL Discharge Plan Discharge Chief Complaint: Seizure Clinical Impression: Breakthrough seizure Patient Disposition: Home, Self-Care Condition: Good Mode of Transportation: Private Vehicle Prescriptions / Home Meds: No Action oxcarbazepine 600 mg tablet 600 mg PO BID lamotrigine 25 mg tablet 50 mg PO BID levetiracetam 250 mg tablet 250 mg PO BID omeprazole 20 mg capsule,delayed release(DR/EC) 20 mg PO .before meal vilazodone 20 mg tablet 20 mg PO .once daily Print Language: Congolese Instructions: Epilepsy (ED) Additional Instructions: contact your neurologist tomorrow as discussed Referrals: MANNY CHI [Primary Care Provider, Family Practice] - 1 week Pankaj Scherer MD [Non-Staff] - As soon as possible Referral Note: Call for follow-up after discharge to schedule.
[2025-03-10 21:18] LABS: Hematocrit 43.5 % (42.0-54.0); Hemoglobin 15.2 g/dL (14.0-18.0); Immature Granulocytes Abs Auto 0.02 10^3/uL (0.00-0.03); Immature Granulocytes Pct Auto 0.3 % (0.0-0.5); Lymphocytes Absolute Auto 1.2 10^3/uL (1.2-3.8); Mean Corpuscular HGB Conc 34.9 g/dL (29.9-35.2); Mean Corpuscular Hemoglobin 28.5 pg (25.9-34.0); Mean Corpuscular Volume 81.6 fL (80.0-94.0); Platelet Count 207 10^3/uL (150-450); Red Blood Count 5.33 10^6/uL (4.70-6.10); White Blood Count 6.6 10^3/uL (4.0-11.0)
[2025-03-10 21:27] LABS: Anion Gap 8.3; Blood Urea Nitrogen 12.0 mg/dL (7.0-18.0); Calcium 9.5 mg/dL (8.5-10.1); Carbon Dioxide 31.0 mmol/L (21.0-32.0); Chloride 103 mmol/L (98-107); Estimated GFR (African America >60 (>=60 mL/min/1.73m^2); Estimated GFR (Non-African Ame >60 (>=60 mL/min/1.73m^2); Glucose 111 mg/dL (74-106); Potassium 4.3 mmol/L (3.5-5.1); Sodium 138 mmol/L (136-145)
[2025-03-10 23:25] LABS: Glucose Urine UA NEGATIVE (NEGATIVE)
[2025-03-10 23:31] LABS: Crystals Seen? None Seen #/HPF (None Seen)
[2025-03-10 23:32] LABS: Cast Seen? NONE SEEN #/LPF (NONE SEEN); Urine Culture Indicated NO
[2025-03-10 23:33] LABS: Cannabinoid Screen Urine NEGATIVE (NEGATIVE); Methamphetamines Screen Urine NEGATIVE (NEGATIVE); Tricyclic Antidepressant Urine NEGATIVE (NEGATIVE)
[2025-03-11] VITALS: BP 124/78; PULSE 78; O2SAT 99
== END 2025-03-11 00:17 | disposition home or self-care (01) ==
PROVIDERS: Physician Assistant; Emergency Provider Internal Medicine; PCP Nurse Practitioner Family
DX: G40.909 Epilepsy, unspecified, not intractable, without status epilepticus (principal); R41.82 Altered mental status, unspecified
CPT/HCPCS: 36415; 70450; 80048; 80307; 80320; 81001; 85025; 93005; 99285